=== PATIENT | male | born 1940 | race Caucasian/White ===

== ENCOUNTER 2016-07-10 14:58 | Emergency (ER) | payer MEDICARE, OTHER, BC ==
[~2016-07-10 14:58] MED LIST: DOCU100C31 PO; EPGI10M SC; HYDR-4717 PO; INSUINJ12 SC; IPRA17AE2 INH; LEVAAER2 PO; NVLGI SC; TRAM-10 PO
[2017-01-14] MEDS ORDERED: CYAN100020 PO (14:35)
[2017-01-14] MEDS ORDERED: CHOL1000 PO (14:35)
[2017-01-14] MEDS ORDERED: LEVO25TA5 PO (14:35)
[2017-01-14] MEDS ORDERED: LEVO200T6 PO (14:35)
[2017-01-17] MEDS ORDERED: CRFUDL PO (16:46)
[2017-01-17] MEDS ORDERED: OMEP40CA41 PO (16:46)
== END 2016-07-10 15:40 | disposition left against medical advice (07) ==
LOC: C.EDB 15:08
DX: R20.0 Anesthesia of skin (principal)

== ENCOUNTER → 2016-08-17 | Outpatient (CLI) | payer MEDICARE ==
[~2016-08-17] MED LIST changes: +AMLO2.5T PO; +APR50 PO; +ASPI81TA28 PO; +ATRIN INH; +CHOL1000 PO; +CRFUDL PO; +CYAN100020 PO; +FLM4 PO; +LBT100 PO; +LEVA45AE INH; +LEVO200T6 PO; +LEVO25TA5 PO; +LSN40 PO; +LSX80 PO; +LVMI SC; +NVLG SC; +OMEP40CA41 PO; +ROSU20TA22 PO
[2016-08-17 15:22] LABS: ESTIMATED AVERAGE GLUCOSE 157 mg/dl; HA1C FLAG Normal (Normal)
== END | disposition home or self-care (01) ==
LOC: C.LABBC 10:53
PROVIDERS: ATTEND Family Medicine
DX: E11.8 Type 2 diabetes mellitus with unspecified complications (principal); E03.9 Hypothyroidism, unspecified

== ENCOUNTER → 2017-01-01 | Outpatient (CLI) | payer MEDICARE ==
[2017-01-01 12:51] LABS: ESTIMATED AVERAGE GLUCOSE 174 mg/dl; HA1C FLAG Normal (Normal)
[2017-01-01 13:16] LABS: ALB/GLOB RATIO 1.1 (0.9-2); ALKALINE PHOSPHATASE 83 U/L (45-117); ALT/SGPT 22 U/L (12-78); AST/SGOT 6 U/L (15-37); BLOOD UREA NITROGEN 87 mg/dl (7-18); CALCIUM 8.4 mg/dl (8.5-10.1); CARBON DIOXIDE 26 mmol/L (21-32); CHLORIDE 109 mmol/L (98-107); CHOLESTEROL 64 mg/dl (0-200); CHOLESTEROL/HDL RATIO 1.7; GLUCOSE 147 mg/dl (70-99); HDL CHOLESTEROL 37 mg/dl; LDL CHOLESTEROL CALCULATED 12 mg/dl; POTASSIUM 3.3 mmol/L (3.5-5.1); SODIUM 144 mmol/L (136-145); TRIGLYCERIDES 73 mg/dl (0-150); VERY LOW DENSITY LIPOPROT CALC 15 mg/dl
== END | disposition home or self-care (01) ==
LOC: C.LABPBG 09:01
PROVIDERS: ATTEND Family Medicine
DX: E03.9 Hypothyroidism, unspecified (principal); I10 Essential (primary) hypertension; E11.8 Type 2 diabetes mellitus with unspecified complications

== ENCOUNTER 2017-01-14 15:32 | Inpatient (IN) | payer MEDICARE, OTHER ==
[~2017-01-14] VITALS: Ht 185.4 cm; Wt 95.3 kg
[~2017-01-14 15:32] MED LIST changes: -AMLO2.5T PO; -APR50 PO; -ASPI81TA28 PO; -ATRIN INH; -CRFUDL PO; -FLM4 PO; -LBT100 PO; -LEVA45AE INH; -LSN40 PO; -LSX80 PO; -LVMI SC; -NVLG SC; -OMEP40CA41 PO; -ROSU20TA22 PO
--- NOTE | 2017-01-14 16:15 | DIAGNOSTIC IMAGING REPORT ---
SINGLE VIEW CHEST CLINICAL HISTORY: Fever. Sepsis. FINDINGS: An AP, portable, upright chest radiograph is compared to study dated 05/22/2016 and correlated with chest CT dated 02/09/2016. The examination is significantly degraded by portable technique and patient rotation. The heart is enlarged there is atherosclerotic calcification of the thoracic aorta. There is mild congestion of the central pulmonary vasculature. Left basilar atelectasis is observed. No lobar consolidation or large pleural effusion is identified. No pneumothorax is seen. The skeletal structures are osteopenic. The bony thorax is grossly intact. Degenerative change is noted throughout the thoracic spine. IMPRESSION: Cardiomegaly with mild pulmonary vascular congestion. Electronically signed by: Shayan Gonzalez M.D. 01/14/2017 4:14 PM Dictated Date/Time: 01/14/2017 4:13 PM
[2017-01-14 16:18] LABS: BASO % 0.3 %; BASO ABS # 0.01 K/uL (0-0.2); EOS % 2.2 %; HEMATOCRIT 23.4 % (42-52); LYMPH % 16.7 %; LYMPH ABS # 0.61 K/uL (1.2-3.4); MEAN CELL VOLUME 91.4 fL (80-100); MEAN CORPUSCULAR HEMOGLOBIN 28.5 pg (25-34); MEAN CORPUSCULAR HGB CONC 31.2 g/dl (32-36); MEAN PLATELET VOLUME 11.1 fL (7.4-10.4); MONO % 7.7 %; NEUT % 73.1 %; PLATELET COUNT 159 K/uL (130-400); RED BLOOD COUNT 2.56 M/uL (4.7-6.1); WHITE BLOOD COUNT 3.65 K/uL (4.8-10.8)
[2017-01-14 16:28] LABS: INR 1.1 (0.9-1.1); PROTHROMBIN TIME (PATIENT) 11.8 SECONDS (9.0-12.0)
[2017-01-14] MEDS ORDERED: APR50 PO (16:35)
[2017-01-14] MEDS ORDERED: LVMI SC ×2 (16:35→19:09)
[2017-01-14] MEDS ORDERED: AMLO2.5T PO (16:35)
[2017-01-14 16:44] LABS: BUN/CREATININE RATIO 12.4 (10-20); CALCIUM 8.3 mg/dl (8.5-10.1); CKMB/CK RATIO 1.9 (0-3.0); CREATININE 7.4 mg/dl (0.60-1.40); POTASSIUM 3.4 mmol/L (3.5-5.1); THYROID STIMULATING HORMONE 0.925 uIu/ml (0.300-4.500)
[2017-01-14] MEDS ORDERED: ATRIN INH (16:45)
[2017-01-14] MEDS ORDERED: NVLG SC (16:45)
[2017-01-14] MEDS ORDERED: ASPI81TA28 PO (16:45)
[2017-01-14] MEDS ORDERED: LEVA45AE INH (16:47)
[2017-01-14] MEDS ORDERED: EPGI10M SC (16:50)
[2017-01-14 16:51] LABS: COMPLETE YES; OVALOCYTES 1+
[2017-01-14 17:37] LABS: URINE APPEARANCE CLEAR (CLEAR); URINE BILIRUBIN NEG (NEG); URINE COLOR YELLOW; URINE NITRITE NEG (NEG); URINE SPECIFIC GRAVITY 1.013 (1.000-1.030); UROBILINOGEN NEG (NEG)
[2017-01-14 17:39] LABS: MANUAL MICROSCOPIC REQUIRED? NO; REVIEW REQ? NO
--- NOTE | 2017-01-14 18:49 | EMERGENCY ROOM VISIT NOTE ---
History Report prepared by Crys: Cassie Rees Under the Supervision of: Dr. Jama Kay D.O. First contact with patient: 15:42 Chief Complaint: SHORTNESS OF BREATH Stated Complaint: SOB, NEEDS DIALYSIS Nursing Triage Summary: Pt was on dialysis and decided he wanted to stop. Now presents c/o dyspnea at rest and numbness in his arms and legs. Called Dr. Dubois and made aware, she recommended pt be brought to ED for labwork. Last dialysis treatment 6 weeks ago. History of Present Illness The patient is a 76 year old male who presents to the Emergency Room with complaints of increasing shortness of breath that began six weeks ago. The patient states that six weeks ago he decided to stop his dialysis treatments. He states that his shortness of breath is worsened with exertion. The patient reports numbness in his arms and legs. He denies any swelling in his lower extremities. The patient states that he has been urinating. He states that he was placed on Dialysis last December. The patient's daughter states that she called the patient's classification officer this morning and was told to bring the patient to the emergency department for further lab work up. The patient states that he does want to go back on dialysis. Source of History: patient Onset: six weeks ago Position: other (global) Quality: other (shortness of breath) Timing: other (increasing) Modifying Factors (Worsening): exertion Review of Systems See HPI for pertinent positives & negatives. A total of 10 systems reviewed and were otherwise negative. Past Medical & Surgical Medical Problems: (1) Anemia (2) Asthma (3) Chronic Kidney Disease, Unspecified (4) COPD exacerbation (5) Diab Cheryl Wo Compl, Type Ii Or Unspec Type, Not Uncntrld (6) Diabetes (7) End-stage renal disease on hemodialysis (8) Epistaxis (9) Esophageal Reflux (10) Heart disease (11) HTN (hypertension) (12) Hypertension (13) Hypertension Nos (14) Hypoxia (15) Secondary hyperparathyroidism of renal origin Family History Diabetes mellitus Hypertension Kidney disease Kidney stones Social History Smoking Status: Former Smoker Alcohol Use: none Drug Use: none Marital Status: Housing Status: lives with significant other Occupation Status: retired Current/Historical Medications Scheduled Amlodipine Besylate (Norvasc), 2.5 MG PO DAILY Aspirin (Aspirin Ec), 81 MG PO DAILY Cholecalciferol (Vitamin D3), 1,000 INTER.UNIT PO QAM Cyanocobalamin (Vitamin B12), 1,000 MCG PO QAM Epoetin Zheng (Procrit), 1 ML SC MONTHLY Furosemide (Furosemide), 80 MG PO TID Hydralazine HCl (Hydralazine HCl), 50 MG PO TID Insulin Aspart (Novolog), 20 UNITS SC AMPM Insulin Detemir (Levemir), 45 UNITS SC QPM Insulin Detemir (Levemir), 50 UNITS SC QAM Ipratropium [place] (Atrovent Hfa), 2 PUFFS INH Q6H Labetalol HCl (Labetalol HCl), 300 MG PO BID Levalbuterol Tartrate (Levalbuterol Tartrate Hfa), 2 PUFFS INH Q6H Levothyroxine Sodium (Levothyroxine Sodium), 25 MCG PO 2XWK Levothyroxine Sodium (Levothyroxine Sodium), 200 MCG PO DAILY Lisinopril (Lisinopril), 40 MG PO DAILY Omeprazole (Prilosec), 40 MG PO DAILY Rosuvastatin Calcium (Rosuvastatin Calcium), 20 MG PO DAILY Tamsulosin HCl (Tamsulosin HCl), 0.4 MG PO QAM Allergies Coded Allergies: Metformin (Verified Adverse Reaction, Intermediate, CONFUSION, 05/21/16) Physical Exam Vital Signs Date Time Temp Pulse Resp B/P (MAP) Pulse Ox O2 Delivery O2 Flow Rate FiO2 01/14/17 17:21 61 19 169/67 96 Room Air 01/14/17 16:13 61 01/14/17 15:46 Room Air 01/14/17 15:35 36.3 60 18 146/62 96 Room Air 01/14/17 15:35 94 Room Air Physical Exam CONSTITUTIONAL/VITAL SIGNS: Reviewed / noted above. GENERAL: Non-toxic in appearance. INTEGUMENTARY: Warm, dry, and [place]. HEAD: Normocephalic. EYES: without scleral icterus or trauma. ENT/OROPHARYNX: clear and moist. LYMPHADENOPATHY/NECK: Is supple without lymphadenopathy or meningismus. RESPIRATORY: Lungs clear and equal. CARDIOVASCULAR: Regular rate and rhythm. GI/ABDOMEN: Soft and nontender. No organomegaly or pulsatile mass. No rebound or guarding. Normal bowel sounds. EXTREMITIES: Warm and well perfused. BACK: No CVA tenderness. NEUROLOGICAL: Intact without focal deficits. PSYCHIATRIC: normal affect. MUSCULOSKELETAL: Normally developed with good muscle tone. Medical Decision & Procedures ER Provider Diagnostic Interpretation: X ray results and stated below per my interpretation and radiology interpretation. SINGLE VIEW CHEST CLINICAL HISTORY: Fever. Sepsis. FINDINGS: An AP, portable, upright chest radiograph is compared to study dated 05/22/2016 and correlated with chest CT dated 02/09/2016. The examination is significantly degraded by portable technique and patient rotation. The heart is enlarged there is atherosclerotic calcification of the thoracic aorta. There is mild congestion of the central pulmonary vasculature. Left basilar atelectasis is observed. No lobar consolidation or large pleural effusion is identified. No pneumothorax is seen. The skeletal structures are osteopenic. The bony thorax is grossly intact. Degenerative change is noted throughout the thoracic spine. IMPRESSION: Cardiomegaly with mild pulmonary vascular congestion. Electronically signed by: Shayan Gonzalez M.D. 01/14/2017 4:14 PM Dictated Date/Time: 01/14/2017 4:13 PM Laboratory Results 01/14/17 16:00 Red Blood Count 2.56, Mean Corpuscular Volume 91.4, Mean Corpuscular Hemoglobin 28.5, Mean Corpuscular Hemoglobin Concent 31.2, Mean Platelet Volume 11.1, Neutrophils (%) (Auto) 73.1, Lymphocytes (%) (Auto) 16.7, Monocytes (%) (Auto) 7.7, Eosinophils (%) (Auto) 2.2, Basophils (%) (Auto) 0.3, Neutrophils # (Auto) 2.67, Lymphocytes # (Auto) 0.61, Monocytes # (Auto) 0.28, Eosinophils # (Auto) 0.08, Basophils # (Auto) 0.01 01/14/17 16:00 Test 01/14/17 16:00 01/14/17 17:20 White Blood Count 3.65 K/uL (4.8-10.8) Red Blood Count 2.56 M/uL (4.7-6.1) Hemoglobin 7.3 g/dL (14.0-18.0) Hematocrit 23.4 % (42-52) Mean Corpuscular Volume 91.4 fL (80-100) Mean Corpuscular Hemoglobin 28.5 pg (25-34) Mean Corpuscular Hemoglobin Concent 31.2 g/dl (32-36) Platelet Count 159 K/uL (130-400) Mean Platelet Volume 11.1 fL (7.4-10.4) Neutrophils (%) (Auto) 73.1 % Lymphocytes (%) (Auto) 16.7 % Monocytes (%) (Auto) 7.7 % Eosinophils (%) (Auto) 2.2 % Basophils (%) (Auto) 0.3 % Neutrophils # (Auto) 2.67 K/uL (1.4-6.5) Lymphocytes # (Auto) 0.61 K/uL (1.2-3.4) Monocytes # (Auto) 0.28 K/uL (0.11-0.59) Eosinophils # (Auto) 0.08 K/uL (0-0.5) Basophils # (Auto) 0.01 K/uL (0-0.2) RDW Standard Deviation 50.8 fL (36.4-46.3) RDW Coefficient of Variation 15.2 % (11.5-14.5) Immature Granulocyte % (Auto) 0.0 % Immature Granulocyte # (Auto) 0.00 K/uL (0.00-0.02) Ovalocytes 1+ Prothrombin Time 11.8 SECONDS (9.0-12.0) Prothromb Time International Ratio 1.1 (0.9-1.1) Activated Partial Thromboplast Time 26.5 SECONDS (21.0-31.0) Partial Thromboplastin Ratio 1.0 Anion Gap 9.0 mmol/L (3-11) Est Creatinine Clear Calc Drug Dose 11.0 ml/min Estimated GFR () 7.6 Estimated GFR (Non- 6.6 BUN/Creatinine Ratio 12.4 (10-20) Calcium Level 8.3 mg/dl (8.5-10.1) Total Bilirubin 0.4 mg/dl (0.2-1) Direct Bilirubin 0.1 mg/dl (0-0.2) Aspartate Amino Transf (AST/SGOT) 7 U/L (15-37) Alanine Aminotransferase (ALT/SGPT) 20 U/L (12-78) Alkaline Phosphatase 80 U/L (45-117) Total Creatine Kinase 127 U/L (39-308) Creatine Kinase MB 2.4 ng/ml (0.5-3.6) Creatine Kinase MB Ratio 1.9 (0-3.0) Troponin I 0.047 ng/ml (0-0.045) Total Protein 6.5 gm/dl (6.4-8.2) Albumin 3.3 gm/dl (3.4-5.0) Lipase 351 U/L (73-393) Thyroid Stimulating Hormone (TSH) 0.925 uIu/ml (0.300-4.500) Urine Color YELLOW Urine Appearance CLEAR (CLEAR) Urine pH 6.0 (4.5-7.5) Urine Specific [place] 1.013 (1.000-1.030) Urine Protein 3+ (NEG) Urine Glucose (UA) 1+ (NEG) Urine Ketones NEG (NEG) Urine Occult Blood NEG (NEG) Urine Nitrite NEG (NEG) Urine Bilirubin NEG (NEG) Urine Urobilinogen NEG (NEG) Urine Leukocyte Esterase NEG (NEG) Urine WBC (Auto) 1-5 /hpf (0-5) Urine RBC (Auto) 0-4 /hpf (0-4) Urine Hyaline Casts (Auto) 0 /lpf (0-5) Urine Epithelial Cells (Auto) 5-10 /lpf (0-5) Urine Bacteria (Auto) NEG (NEG) Laboratory results as stated above per my review. ECG Indication: SOB/dyspnea Rate (beats per minute): 60 Rhythm: normal sinus Findings: RBBB, no acute ischemic change Comparison ECG Date: 05/22/16 Change: no significant change ED Course 1544: Previous medical records were reviewed. The patient was evaluated in room C10. A complete history and physical examination was performed. 1756: I discussed the patients case with Dr. [facility]. She is going to evaluate the patient for further treatment. 1808: I reevaluated the patient and he is doing well. I discussed the exam findings with him and I discussed the treatment plan. He verbalized complete understanding and agreement. He is going to be evaluated for further treatment. Medical Decision Differentials considered include acute myocardial infarction, acute coronary syndrome, myocarditis, pericarditis, pericardial effusions /tamponade, esophageal perforation, pulmonary embolism, pneumonia, pneumothorax, cardiomyopathy, congestive heart, anemia, and COPD/asthma exacerbation. This is a 76-year-old male who presents to the ED with a chief complaint of dyspnea on exertion primarily. The patient states that he is a dialysis- dependent renal failure patient who has not been to dialysis for about 6 weeks. He states that he is developing increasing exertional dyspnea and was referred here by his classification officer, Dr. Briceno. The patient denies any other specific complaints. No chest pains, fevers or recent illness. He reported to the nurse that he has some paresthesias in his arms and legs as well, he did not report this to me. Patient's vital signs are stable. His physical exam was relatively unremarkable. Hemoglobin is 7.3, troponin is 0.047, BUN is 91, creatinine is 7.4, potassium is 3.4 and glucose is 184. Other laboratory studies were unremarkable. Chest x-ray reveals cardiomegaly and some mild pulmonary vascular congestion. An EKG shows a right bundle branch block and a sinus rhythm. This is chronic. The patient was told the results. I spoke with the hospitalist, who will see the patient for further inpatient evaluation and care. He was typed and screened. Medication Reconcilliation Current Medication List: was personally reviewed by me Blood Pressure Screening Patient's blood pressure: Elevated blood pressure Blood pressure disposition: Elevated BP felt to be situational, Did not require urgent referral Consults Time Called: 1733 Consulting Physician: YULIANA Kinney Returned Call: 1756 I discussed the patients case with YULIANA Kinney. She is going to evaluate the patient for further treatment. Impression Primary Impression: Anemia Additional Impressions: Elevated troponin Pulmonary vascular congestion Uremia Scribe Attestation The scribe's documentation has been prepared under my direction and personally reviewed by me in its entirety. I confirm that the note above accurately reflects all work, treatment, procedures, and medical decision making performed by me. Departure Information Dispostion Being Evaluated By Hospitalist Referrals No Doctor, Assigned (PCP) Problem Qualifiers
[2017-01-14] MEDS ORDERED: MoRPHine SULFATE 2 MG/ML CARP IV PRN (20:00)
[2017-01-14] MEDS ORDERED: ACETAMINOPHEN 325 MG TAB PO PRN (20:00)
[2017-01-14] MEDS ORDERED: NITROGLYCERIN 0.4 MG SL PER TAB CHARGE SL PRN (20:00)
[2017-01-14] MEDS ORDERED: IV FLUIDS COMPLETED PRN (20:15)
[2017-01-14] MEDS ORDERED: FLM4 PO (20:38)
[2017-01-14] MEDS ORDERED: OMEP40CA41 PO (20:38)
[2017-01-14] MEDS ORDERED: LBT100 PO (20:38)
[2017-01-14] MEDS ORDERED: LSX80 PO (20:38)
[2017-01-14] MEDS ORDERED: ROSU20TA22 PO (20:38)
[2017-01-14 20:41] VITALS: BP 181/66; PULSE 63; TEMP 36.4; O2SAT 97; Ht 185.4 cm; Wt 95.3 kg
--- NOTE | 2017-01-14 20:59 | History and Physical ---
History & Physical Date & Time of Service: Jan 14, 2017 at 20:33 Chief Complaint: Sob, Needs Dialysis Primary Care Physician: Mahsa Wang DO History of Present Illness Source: patient 75 y/o M Hx ESRD, DM, HTN, CAD, recurrent GI bleed. The pt was n dialysis until a few months ago when he made a decision to terminate treatment. He has become progressively SOB over the past 2 weeks and presents stating that he would like to restart dialysis now. He also reports that he has had black stools for the past 6 weeks. Initial labs are notable for worsening anemia and renal impairment as expected. He denies CP, N/V/D, fevers, dysuria. Past Medical/Surgical History Medical Problems: (1) Asthma Status: Chronic (2) Diabetes Status: Chronic (3) Epistaxis Status: Chronic (4) Heart disease Status: Chronic (5) HTN (hypertension) Status: Chronic (6) Hypertension Status: Chronic Family History Diabetes mellitus Hypertension Kidney disease Kidney stones Social History Smoking Status: Former Smoker Drug Use: none Marital Status: Housing status: lives with family Occupational Status: retired Immunizations History of Influenza Vaccine: Unknown History of Tetanus Vaccine?: unknown History of Pneumococcal: Yes Pneumococcal Date: Dec 19, 2007 History of Hepatitis B Vaccine: Unknown Multi-Drug Resistant Organisms History of MDRO: No Allergies Coded Allergies: Metformin (Verified Adverse Reaction, Intermediate, CONFUSION, 05/21/16) Home Medications Scheduled Amlodipine Besylate (Norvasc), 2.5 MG PO DAILY Aspirin (Aspirin Ec), 81 MG PO DAILY Cholecalciferol (Vitamin D3), 1,000 INTER.UNIT PO QAM Cyanocobalamin (Vitamin B12), 1,000 MCG PO QAM Epoetin Zheng (Procrit), 1 ML SC MONTHLY Furosemide (Furosemide), 80 MG PO TID Hydralazine HCl (Hydralazine HCl), 50 MG PO TID Insulin Aspart (Novolog), 20 UNITS SC AMPM Insulin Detemir (Levemir), 45 UNITS SC QPM Insulin Detemir (Levemir), 50 UNITS SC QAM Ipratropium [place] (Atrovent Hfa), 2 PUFFS INH Q6H Labetalol HCl (Labetalol HCl), 300 MG PO BID Levalbuterol Tartrate (Levalbuterol Tartrate Hfa), 2 PUFFS INH Q6H Levothyroxine Sodium (Levothyroxine Sodium), 25 MCG PO 2XWK Levothyroxine Sodium (Levothyroxine Sodium), 200 MCG PO DAILY Lisinopril (Lisinopril), 40 MG PO DAILY Omeprazole (Prilosec), 40 MG PO DAILY Rosuvastatin Calcium (Rosuvastatin Calcium), 20 MG PO DAILY Tamsulosin HCl (Tamsulosin HCl), 0.4 MG PO QAM Review of Systems Constitutional: No fever, No chills, No sweats Eyes: No worsening of vision ENT: No hearing loss, No nasal symptoms Respiratory: + shortness of breath, + dyspnea on exertion, + dyspnea at rest, No cough, No sputum, No wheezing Cardiovascular: + orthopnea, No chest pain, No PND Abdomen: No pain, No nausea, No vomiting Musculoskeletal: No joint pain Genitourinary - Male: No hematuria, No dysuria, No urinary frequency, No urinary urgency Neurologic: No memory loss, No paralysis, No weakness Psychiatric: No depression symptoms Endocrine: No fatigue Hematologic / Lymphatic: + abnormal bleeding/bruising Integumentary: No rash Allergic / Immunologic: No environmental allergies Physical Exam Vital Signs Date Time Temp Pulse Resp B/P (MAP) Pulse Ox O2 Delivery O2 Flow Rate FiO2 01/14/17 20:26 63 18 166/72 94 01/14/17 20:23 63 18 166/72 94 Room Air 01/14/17 19:07 62 18 183/75 95 Room Air 01/14/17 17:21 61 19 169/67 96 Room Air 01/14/17 16:13 61 01/14/17 15:46 Room Air 01/14/17 15:35 36.3 60 18 146/62 96 Room Air 01/14/17 15:35 94 Room Air General Appearance: WD/WN, no apparent distress Head: normocephalic Eyes: normal inspection ENT: normal ENT inspection, pharynx normal Neck: supple, + JVD Respiratory/Chest: chest non-tender, lungs clear, normal breath sounds, no respiratory distress Cardiovascular: regular rate, rhythm, no edema, no gallop, no murmur, normal peripheral pulses, + JVD Abdomen/GI: normal bowel sounds, non tender, soft Back: normal inspection, no CVA tenderness, no muscle spasm, normal range of motion Extremities/Musculoskelatal: normal inspection, no calf tenderness, normal capillary refill, + pertinent finding (Functional graft LUE) 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, no motor/sensory deficits, alert, normal mood/affect, normal reflexes, oriented x 3 Skin: normal color, warm/dry, no rash Diagnostics Laboratory Results Results Past 24 Hours Test 01/14/17 16:00 01/14/17 17:20 Range/Units White Blood Count 3.65 4.8-10.8 K/uL Red Blood Count 2.56 4.7-6.1 M/uL Hemoglobin 7.3 14.0-18.0 g/dL Hematocrit 23.4 42-52 % Mean Corpuscular Volume 91.4 80-100 fL Mean Corpuscular Hemoglobin 28.5 25-34 pg Mean Corpuscular Hemoglobin Concent 31.2 32-36 g/dl Platelet Count 159 130-400 K/uL Mean Platelet Volume 11.1 7.4-10.4 fL Neutrophils (%) (Auto) 73.1 % Lymphocytes (%) (Auto) 16.7 % Monocytes (%) (Auto) 7.7 % Eosinophils (%) (Auto) 2.2 % Basophils (%) (Auto) 0.3 % Neutrophils # (Auto) 2.67 1.4-6.5 K/uL Lymphocytes # (Auto) 0.61 1.2-3.4 K/uL Monocytes # (Auto) 0.28 0.11-0.59 K/uL Eosinophils # (Auto) 0.08 0-0.5 K/uL Basophils # (Auto) 0.01 0-0.2 K/uL RDW Standard Deviation 50.8 36.4-46.3 fL RDW Coefficient of Variation 15.2 11.5-14.5 % Immature Granulocyte % (Auto) 0.0 % Immature Granulocyte # (Auto) 0.00 0.00-0.02 K/uL Ovalocytes 1+ Prothrombin Time 11.8 9.0-12.0 SECONDS Prothromb Time International Ratio 1.1 0.9-1.1 Activated Partial Thromboplast Time 26.5 21.0-31.0 SECONDS Partial Thromboplastin Ratio 1.0 Sodium Level 143 136-145 mmol/L Potassium Level 3.4 3.5-5.1 mmol/L Chloride Level 109 98-107 mmol/L Carbon Dioxide Level 25 21-32 mmol/L Anion Gap 9.0 3-11 mmol/L Blood Urea Nitrogen 91 7-18 mg/dl Creatinine 7.40 0.60-1.40 mg/dl Est Creatinine Clear Calc Drug Dose 11.0 ml/min Estimated GFR () 7.6 Estimated GFR (Non- 6.6 BUN/Creatinine Ratio 12.4 10-20 Random Glucose 184 70-99 mg/dl Calcium Level 8.3 8.5-10.1 mg/dl Total Bilirubin 0.4 0.2-1 mg/dl Direct Bilirubin 0.1 0-0.2 mg/dl Aspartate Amino Transf (AST/SGOT) 7 15-37 U/L Alanine Aminotransferase (ALT/SGPT) 20 12-78 U/L Alkaline Phosphatase 80 45-117 U/L Total Creatine Kinase 127 39-308 U/L Creatine Kinase MB 2.4 0.5-3.6 ng/ml Creatine Kinase MB Ratio 1.9 0-3.0 Troponin I 0.047 0-0.045 ng/ml Total Protein 6.5 6.4-8.2 gm/dl Albumin 3.3 3.4-5.0 gm/dl Lipase 351 73-393 U/L Thyroid Stimulating Hormone (TSH) 0.925 0.300-4.500 uIu/ml Urine Color YELLOW Urine Appearance CLEAR CLEAR Urine pH 6.0 4.5-7.5 Urine Specific [place] 1.013 1.000-1.030 Urine Protein 3+ NEG Urine Glucose (UA) 1+ NEG Urine Ketones NEG NEG Urine Occult Blood NEG NEG Urine Nitrite NEG NEG Urine Bilirubin NEG NEG Urine Urobilinogen NEG NEG Urine Leukocyte Esterase NEG NEG Urine WBC (Auto) 1-5 0-5 /hpf Urine RBC (Auto) 0-4 0-4 /hpf Urine Hyaline Casts (Auto) 0 0-5 /lpf Urine Epithelial Cells (Auto) 5-10 0-5 /lpf Urine Bacteria (Auto) NEG NEG Diagnostic Radiology CXR Cardiomegaly with mild pulmonary vascular congestion. EKG Sinus , RBBB - no significant change form previous Impression Assessment and Plan 75 y/o M Hx ESRD, DM, HTN, CAD, recurrent GI bleed. The pt was n dialysis until a few months ago when he made a decision to terminate treatment. He has become progressively SOB over the past 2 weeks and presents stating that he would like to restart dialysis now. He also reports that he has had black stools for the past 6 weeks. Initial labs are notable for worsening anemia and renal impairment as expected. He denies CP, N/V/D, fevers, dysuria. 1) SOB - likely related to both volume overload and anemia - addressed below 2) ESRD - pt has not had dialysis for a few months - nephrology contacted - pt will be dialyzed 01/15. We will continue Lasix at prescribed does in interim. 3) Anemia - likely due to both blood loss and noncompliance with EPO. Pt had both an endoscopy and colonoscopy - polyps and hemorrhoids were found without significant source of bleeding - he may have undergone a more involved study at [facility] but could not elaborate. We will trend his Hb but would prefer not to transfuse him until AM if needed as he would be able to proceed to dialysis. We will consult his Human Geography Instructor. 4) DM - placed on SS 5) CAD - no evidence of ACS - no history of MT and CAD may be nonocclusive per previous workup. Full code - SCDs due to GI blood loss Total time for this admit including review of labs, meds, EKG, imaging, records - discussion with pt and ER attending - 44 min Level of Care Telemetry Resuscitation Status FULL RESUSCITATION VTE Prophylaxis Risk Level: Moderate Given or contraindicated: SCD's
[2017-01-14] MEDS: INSULIN ASPART 100 UNITS/ML 3 ML PEN SC SCH (21:00)
[2017-01-14] MEDS: FUROSEMIDE 80 MG TAB PO SCH (21:10)
[2017-01-14] MEDS: LABETALOL HCL 300 MG TAB PO SCH (21:11)
[2017-01-14] MEDS: INSULIN DETEMIR SC SCH (21:14)
[2017-01-14] MEDS ORDERED: LSN40 PO (21:28)
[2017-01-14] MEDS: LEValbuterol HFA 15GM INHALER INH SCH (23:15)
[2017-01-14] MEDS: IPRATROPIUM BROMIDE HFA INHALER INH SCH (23:15)
[2017-01-14 23:22] VITALS: BP 183/75; PULSE 64; TEMP 36.5; O2SAT 95
[2017-01-15] VITALS (31 sets, daily range): BP systolic 139–189; BP diastolic 56–83; PULSE 57–85; TEMP 36.5–36.9; O2SAT 92–99
[2017-01-15] MEDS: IPRATROPIUM BROMIDE HFA INHALER INH SCH ×3 (05:47→17:13)
[2017-01-15] MEDS: LEValbuterol HFA 15GM INHALER INH SCH ×3 (05:47→17:14)
[2017-01-15] MEDS: LEVOTHYROXINE 200 MCG TAB PO SCH (05:48)
[2017-01-15] MEDS: INSULIN ASPART 100 UNITS/ML 3 ML PEN SC SCH ×4 (07:00→21:00)
[2017-01-15] MEDS: ROSUVASTATIN CALCIUM 20 MG TAB PO SCH (07:49)
[2017-01-15] MEDS: FUROSEMIDE 80 MG TAB PO SCH ×3 (07:50→21:00)
[2017-01-15] MEDS: CHOLECALCIFEROL 1000 INTER.UNIT TAB PO SCH (07:50)
[2017-01-15] MEDS: ASPIRIN 81 MG ECTAB PO SCH (07:50)
[2017-01-15] MEDS: CYANOCOBALAMIN 500 MCG TAB (VIT B-12) PO SCH (07:51)
[2017-01-15] MEDS: TAMSULOSIN HCL 0.4 MG CAP PO SCH (07:51)
[2017-01-15] MEDS: AMLODIPINE BESYLATE 5 MG TAB PO SCH (07:51)
[2017-01-15] MEDS: INSULIN DETEMIR SC SCH ×2 (07:54→21:00)
[2017-01-15] MEDS: LABETALOL HCL 300 MG TAB PO SCH ×2 (07:56→21:09)
[2017-01-15] MEDS: LISINOPRIL 40 MG TAB PO SCH (07:56)
[2017-01-15 08:56] LABS: BUN/CREATININE RATIO 11.3 (10-20); CALCIUM 8.3 mg/dl (8.5-10.1); CREATININE 7.6 mg/dl (0.60-1.40); PHOSPHORUS 4.9 mg/dl (2.5-4.9); POTASSIUM 3.3 mmol/L (3.5-5.1)
[2017-01-15] MEDS ORDERED: PANTOprazole SOD 40 MG TAB PO SCH (09:00)
[2017-01-15 09:09] LABS: HEPATITIS B AB NEG
--- NOTE | 2017-01-15 10:06 | Gastrointestinal Consultation ---
Gastrointestinal Consultation Date of Consultation: Jan 15, 2017 Attending Physician: Dr. Sánchez Consulting Physician: Dr. Hernandez/YULIA Hernandez Reason for Consultation: Anemia History of Present Illness Patient is a 76 year old male with a history of ESRD, HTN, CAD and mild GAVE seen on prior endoscopy during a hospitalization for GIB in December of 2015. At that time, the patient did undergo both an upper endoscopy and colonoscopy by Dr. Hernandez. Since that time, he states he had been doing well from a GI standpoint until approximately 6 weeks ago. At that time, he reports a sudden onset of intermittent upper abdominal pain and development of black stools. The dark stools have been persistent but over time has developed progressive shortness of breath, worse with exertion over the past two weeks. On arrival, he was noted to have an H&H of 7.3 and 23.4. His hemoglobin has dropped overnight and was down to 6.8 this morning. The patient has been ordered 1 unit of PRBCs which have not yet been infused. The patient remains of Protonix 40 mg daily. Currently, he denies any abdominal pain, nausea or vomiting or other GI complaints. His only complaint at present is of significant fatigue. Past Medical/Surgical History Medical Problems: (1) Elevated troponin Status: Acute (2) Hyperglycemia due to type 2 diabetes mellitus Status: Acute (3) Leg pain, left Status: Acute (4) Pain of left calf Status: Acute (5) Pulmonary vascular congestion Status: Acute (6) Substernal chest pain Status: Acute (7) Uremia Status: Acute Past Medical History: 1. Asthma 2. Diabetes 3. Epistaxis 4. CAD 5. HTN 6. ESRD 7. GIB 8. Colon polyps 9. Internal hemorrhoids 10. GAVE Past Surgical History: 1. EGD 2. Colonoscopy Family History Diabetes mellitus Hypertension Kidney disease Kidney stones Negative for GI malignancy and IBD Social History Smoking Status: Former Smoker Alcohol Use: none Drug Use: none Marital Status: Housing Status: lives with significant other Occupation Status: retired Allergies Coded Allergies: Metformin (Verified Adverse Reaction, Intermediate, CONFUSION, 05/21/16) Current Medications Home Meds and Scripts Medications Dose Route/Sig Max Daily Dose Days Date Category Dose Instructions Procrit (Epoetin Zheng) 10,000 Units Inj 1 Ml SC MONTHLY 01/14/17 Reported HOLD IF HGB IS GREATER THAN 11 Levalbuterol Tartrate Hfa (Levalbuterol Tartrate) 45 Mcg/Act Aer 2 Puffs INH Q6H 01/14/17 Reported Aspirin Ec (Aspirin) 81 Mg Tab 81 Mg PO DAILY 01/14/17 Reported Atrovent Hfa (Ipratropium [place]) 200 Puffs/3400 Mcg Aers 2 Puffs INH Q6H 01/14/17 Reported Novolog (Insulin Aspart) 100 Units/Ml Inj 20 Units SC AMPM 01/14/17 Reported ADJUST PER SLIDING SCALE Hydralazine HCl 50 Mg Tab 50 Mg PO TID 01/14/17 Reported Norvasc (Amlodipine Besylate) 2.5 Mg Tab 2.5 Mg PO DAILY 01/14/17 Reported Levemir (Insulin Detemir) 100 Units/Ml Inj 50 Units SC QAM 01/14/17 Reported ADJUST PER SLIDING SCALE Lisinopril 40 Mg Tab 40 Mg PO DAILY 02/06/16 Reported ON DAYS OF DIALYSIS TAKE AFTER TREATMENT Tamsulosin HCl 0.4 Mg Cap 0.4 Mg PO QAM 02/06/16 Reported Prilosec (Omeprazole) 40 Mg Cap 40 Mg PO DAILY 02/06/16 Reported Rosuvastatin Calcium 20 Mg Tab 20 Mg PO DAILY 02/06/16 Reported Furosemide 80 Mg Tab 80 Mg PO TID 02/06/16 Reported Labetalol HCl 100 Mg Tab 300 Mg PO BID 02/06/16 Reported Levemir (Insulin Detemir) 100 Units/Ml Inj 45 Units SC QPM 01/19/16 Reported ADJUST PER SLIDING SCALE Vitamin D3 (Cholecalciferol) 1,000 Unit Tab 1,000 Inter.unit PO QAM 12/06/15 Reported Vitamin B12 (Cyanocobalamin) 1,000 Mcg Tab 1,000 Mcg PO QAM 12/06/15 Reported Levothyroxine Sodium 200 Mcg Tab 200 Mcg PO DAILY 12/06/15 Reported Levothyroxine Sodium 25 Mcg Tab 25 Mcg PO 2XWK 12/06/15 Reported EVERY SATURDAY AND SATURDAY TAKE AN ADDITIONAL 25 MCG ALONG WITH 200 MCG TABLET Review of Systems Constitutional: + see HPI Eyes: No problem reported ENT: No problem reported Respiratory: + see HPI Cardiac: No chest pain, No palpitations Abdomen: + see HPI Musculoskeletal: No problem reported Male : No problem reported Neuro: No problem reported Psych: No problem reported Skin: No problem reported Physical Exam Date Time Temp Pulse Resp B/P (MAP) Pulse Ox O2 Delivery O2 Flow Rate FiO2 01/15/17 08:00 95 Room Air 01/15/17 07:32 36.6 59 18 189/75 (113) 95 Room Air 01/15/17 04:00 Room Air 01/15/17 02:57 36.6 63 18 139/56 (83) 92 Room Air 01/15/17 00:00 Room Air 01/14/17 23:22 36.5 64 20 183/75 (111) 95 Room Air 01/14/17 20:41 36.4 63 18 181/66 97 Room Air 01/14/17 20:26 63 18 166/72 94 01/14/17 20:23 63 18 166/72 94 Room Air 01/14/17 19:07 62 18 183/75 95 Room Air 01/14/17 17:21 61 19 169/67 96 Room Air 01/14/17 16:13 61 01/14/17 15:46 Room Air 01/14/17 15:35 36.3 60 18 146/62 96 Room Air 01/14/17 15:35 94 Room Air General Appearance: no apparent distress Eyes: EOMI ENT: hearing grossly normal Neck: supple Respiratory/Chest: lungs clear, normal breath sounds, no respiratory distress Cardiovascular: regular rate, rhythm, no gallop, no murmur Abdomen: normal bowel sounds, non tender, soft Extremities: no pedal edema Neurologic/Psych: alert, normal mood/affect, oriented x 3 Skin: warm/dry Laboratory Results Last 24 Hours Test 01/14/17 16:00 01/14/17 17:20 01/14/17 21:08 01/14/17 23:01 White Blood Count 3.65 K/uL Red Blood Count 2.56 M/uL Hemoglobin 7.3 g/dL 6.8 g/dL Hematocrit 23.4 % Mean Corpuscular Volume 91.4 fL Mean Corpuscular Hemoglobin 28.5 pg Mean Corpuscular Hemoglobin Concent 31.2 g/dl Platelet Count 159 K/uL Mean Platelet Volume 11.1 fL Neutrophils (%) (Auto) 73.1 % Lymphocytes (%) (Auto) 16.7 % Monocytes (%) (Auto) 7.7 % Eosinophils (%) (Auto) 2.2 % Basophils (%) (Auto) 0.3 % Neutrophils # (Auto) 2.67 K/uL Lymphocytes # (Auto) 0.61 K/uL Monocytes # (Auto) 0.28 K/uL Eosinophils # (Auto) 0.08 K/uL Basophils # (Auto) 0.01 K/uL RDW Standard Deviation 50.8 fL RDW Coefficient of Variation 15.2 % Immature Granulocyte % (Auto) 0.0 % Immature Granulocyte # (Auto) 0.00 K/uL Ovalocytes 1+ Prothrombin Time 11.8 SECONDS Prothromb Time International Ratio 1.1 Activated Partial Thromboplast Time 26.5 SECONDS Partial Thromboplastin Ratio 1.0 Sodium Level 143 mmol/L Potassium Level 3.4 mmol/L Chloride Level 109 mmol/L Carbon Dioxide Level 25 mmol/L Anion Gap 9.0 mmol/L Blood Urea Nitrogen 91 mg/dl Creatinine 7.40 mg/dl Est Creatinine Clear Calc Drug Dose 11.0 ml/min Estimated GFR () 7.6 Estimated GFR (Non- 6.6 BUN/Creatinine Ratio 12.4 Random Glucose 184 mg/dl Calcium Level 8.3 mg/dl Total Bilirubin 0.4 mg/dl Direct Bilirubin 0.1 mg/dl Aspartate Amino Transf (AST/SGOT) 7 U/L Alanine Aminotransferase (ALT/SGPT) 20 U/L Alkaline Phosphatase 80 U/L Total Creatine Kinase 127 U/L Creatine Kinase MB 2.4 ng/ml Creatine Kinase MB Ratio 1.9 Troponin I 0.047 ng/ml Total Protein 6.5 gm/dl Albumin 3.3 gm/dl Lipase 351 U/L Thyroid Stimulating Hormone (TSH) 0.925 uIu/ml Urine Color YELLOW Urine Appearance CLEAR Urine pH 6.0 Urine Specific Monitor 1.013 Urine Protein 3+ Urine Glucose (UA) 1+ Urine Ketones NEG Urine Occult Blood NEG Urine Nitrite NEG Urine Bilirubin NEG Urine Urobilinogen NEG Urine Leukocyte Esterase NEG Urine WBC (Auto) 1-5 /hpf Urine RBC (Auto) 0-4 /hpf Urine Hyaline Casts (Auto) 0 /lpf Urine Epithelial Cells (Auto) 5-10 /lpf Urine Bacteria (Auto) NEG Bedside Glucose 201 mg/dl Test 01/15/17 05:41 01/15/17 06:36 01/15/17 08:16 01/15/17 08:20 Hemoglobin 6.8 g/dL Bedside Glucose 178 mg/dl Hepatitis B Surface Antigen NEG Hepatitis B Surface Antibody NEG Sodium Level 142 mmol/L Potassium Level 3.3 mmol/L Chloride Level 107 mmol/L Carbon Dioxide Level 26 mmol/L Anion Gap 9.0 mmol/L Blood Urea Nitrogen 86 mg/dl Creatinine 7.60 mg/dl Est Creatinine Clear Calc Drug Dose 10.5 ml/min Estimated GFR () 7.4 Estimated GFR (Non- 6.4 BUN/Creatinine Ratio 11.3 Random Glucose 217 mg/dl Calcium Level 8.3 mg/dl Phosphorus Level 4.9 mg/dl Troponin I 0.038 ng/ml Albumin 3.2 gm/dl Impression Patient is a 76 year old male admitted with symptomatic anemia, black stools and history of GAVE. Plan 1. Recommend supportive measures with blood transfusion as planned today. 2. NPO after midnight. 3. EGD with Dr. Hernandez tomorrow for further evaluation. 4. Increased Protonix to 40 mg po BID. 5. Additional recommendations pending results of testing. Thank you for allowing us to participate in the care of this pleasant patient. If you have any questions or concerns, please do not hesitate to contact us. Agree with YULIA Hernandez as above Abd: Soft, NT, ND, +BS EGD in AM secondary to history of GAVE Continue current therapy
--- NOTE | 2017-01-15 10:40 | Nephrology Consultation ---
Nephrology Consultation Date & Providers Date of Consultation: Jan 15, 2017. Primary Care Provider: Mahsa Wang DO Referring Provider: Reason for Consultation ESRD History of Present Illness Mr. Mcintyre is a 76 year old male with ESRD, HTN, CAD and GAVE. He was admitted ot [facility] yesterday with progressive fatigue, shortness of breath and black stool. Prior admissions for GI bleed were reviewed. He was previously maintained on hemodialysis at [facility] but several weeks ago decided to stop treatment. Darnell states that dialysis was tiring and he needed a break. He always intended to return to dialysis and acknowledges that he does not want to and that ESRD is a terminal diagnosis. Darnell is in good spirits and states his primary goal is to preserve his current quality of life. He answers questions appropriately. His appetite is good. He denies weight loss. He denies abdominal pain. Activity tolerance is limited due to dyspnea at baseline. He has been started on therapeutic pantoprazole and scheduled for EGD tomorrow. He has a functional AVF with good thrill and bruit. Past Medical/Surgical History Medical: 1. Asthma/COPD 2. Diabetes mellitus 3. ESRD 4. CAD 5. HTN 6. GAVE 7. Chronic liver disease 8. Colon polyps 9. Internal hemorrhoids Surgical: L radiocephalic AVF, EGD, colonoscopy Allergies Coded Allergies: Metformin (Verified Adverse Reaction, Intermediate, CONFUSION, 05/21/16) Inpatient Medications Current Inpatient Medications Medications (Trade) Dose Ordered Sig/Unique Route Start Time Stop Time Status Last Admin Dose Admin Acetaminophen (Tylenol Tab) 650 mg Q4H PRN PO 01/14/17 20:00 02/13/17 19:59 Nitroglycerin (Nitrostat Tab) 0.4 mg UD PRN SL 01/14/17 20:00 02/13/17 19:59 Morphine Sulfate (MoRPHine SULFATE INJ) 2 mg Q30M PRN IV 01/14/17 20:00 01/28/17 19:59 Amlodipine Besylate (Norvasc Tab) 2.5 mg DAILY PO 01/15/17 09:00 02/14/17 08:59 01/15/17 07:51 2.5 MG Aspirin (Ecotrin Tab) 81 mg DAILY PO 01/15/17 09:00 02/14/17 08:59 01/15/17 07:50 81 MG Cholecalciferol (Vitamin D Tab) 1,000 inter.unit QAM PO 01/15/17 09:00 02/14/17 08:59 01/15/17 07:50 1,000 INTER.UNIT Furosemide (Lasix Tab) 80 mg TID PO 01/14/17 21:00 02/13/17 20:59 01/15/17 07:50 80 MG Hydralazine HCl (Apresoline Tab) 50 mg TID PO 01/14/17 21:00 02/13/17 20:59 01/15/17 07:58 50 MG Ipratropium [place] (Atrovent Hfa Inhaler) 2 puffs Q6HWA INH 01/15/17 00:00 02/14/17 00:00 01/15/17 05:47 2 PUFFS Labetalol HCl (Normodyne Tab) 300 mg BID PO 01/14/17 21:00 02/13/17 20:59 01/15/17 07:56 300 MG Levalbuterol (Xopenex Hfa Inhaler) 2 puffs Q6HWA INH 01/15/17 00:00 02/14/17 00:00 01/15/17 05:47 2 PUFFS Levothyroxine Sodium (Synthroid Tab) 200 mcg DAILYBB PO 01/15/17 06:00 02/14/17 06:59 01/15/17 05:48 200 MCG Lisinopril (Zestril Tab) 40 mg DAILY PO 01/15/17 09:00 02/14/17 08:59 01/15/17 07:56 40 MG Rosuvastatin Calcium (Crestor Tab) 20 mg DAILY PO 01/15/17 09:00 02/14/17 08:59 01/15/17 07:49 20 MG Tamsulosin HCl (Flomax Cap) 0.4 mg QAM PO 01/15/17 09:00 02/14/17 08:59 01/15/17 07:51 0.4 MG Cyanocobalamin (Vitamin B-12 Tab) 1,000 mcg QAM PO 01/15/17 09:00 02/14/17 08:59 01/15/17 07:51 1,000 MCG Insulin Detemir (Levemir Insulin) 45 units PM SC 01/14/17 21:00 02/13/17 20:59 01/14/17 21:14 20 UNITS Insulin Detemir (Levemir Insulin) 50 units QAM CA 01/15/17 09:00 02/14/17 08:59 01/15/17 07:54 50 UNITS Insulin Aspart (novoLOG ASPART) SLIDING SCALE G... ACHS CA 01/14/17 21:00 02/13/17 20:59 Miscellaneous (Iv Fluids Completed) 1 ea PRN PRN N/A 01/14/17 20:15 01/14/18 20:14 Pantoprazole Sodium (Protonix Tab) 40 mg BID PO 01/15/17 21:00 02/14/17 08:59 Family History Diabetes mellitus Hypertension Kidney disease Kidney stones Social History Smoking Status: Former Smoker Drug Use: none Marital Status: Housing Status: lives with family 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 Review of Systems A complete review of systems was performed. Pertinent positives are noted above. All other systems are negative. Physical Exam Date Time Temp Pulse Resp B/P (MAP) Pulse Ox O2 Delivery O2 Flow Rate FiO2 01/15/17 09:52 36.7 59 18 169/72 94 01/15/17 08:00 95 Room Air 01/15/17 07:32 36.6 59 18 189/75 (113) 95 Room Air 01/15/17 04:00 Room Air 01/15/17 02:57 36.6 63 18 139/56 (83) 92 Room Air 01/15/17 00:00 Room Air 01/14/17 23:22 36.5 64 20 183/75 (111) 95 Room Air 01/14/17 20:41 36.4 63 18 181/66 97 Room Air 01/14/17 20:26 63 18 166/72 94 01/14/17 20:23 63 18 166/72 94 Room Air 01/14/17 19:07 62 18 183/75 95 Room Air 01/14/17 17:21 61 19 169/67 96 Room Air 01/14/17 16:13 61 01/14/17 15:46 Room Air 01/14/17 15:35 36.3 60 18 146/62 96 Room Air 01/14/17 15:35 94 Room Air General Appearance: WD/WN, no apparent distress Head: normocephalic, atraumatic Eyes: normal inspection, sclerae normal ENT: normal ENT inspection, pharynx normal Neck: supple, + JVD Respiratory/Chest: lungs clear, no respiratory distress, no accessory muscle use Cardiovascular: regular rate, rhythm, no gallop, + systolic murmur Abdomen/GI: non tender, soft Extremities/Musculoskelatal: normal inspection, + pedal edema Neurologic/Psych: alert, normal mood/affect Skin: normal color Laboratory Results Last 24 Hours Test 01/14/17 16:00 01/14/17 17:20 01/14/17 21:08 01/14/17 23:01 White Blood Count 3.65 K/uL Red Blood Count 2.56 M/uL Hemoglobin 7.3 g/dL 6.8 g/dL Hematocrit 23.4 % Mean Corpuscular Volume 91.4 fL Mean Corpuscular Hemoglobin 28.5 pg Mean Corpuscular Hemoglobin Concent 31.2 g/dl Platelet Count 159 K/uL Mean Platelet Volume 11.1 fL Neutrophils (%) (Auto) 73.1 % Lymphocytes (%) (Auto) 16.7 % Monocytes (%) (Auto) 7.7 % Eosinophils (%) (Auto) 2.2 % Basophils (%) (Auto) 0.3 % Neutrophils # (Auto) 2.67 K/uL Lymphocytes # (Auto) 0.61 K/uL Monocytes # (Auto) 0.28 K/uL Eosinophils # (Auto) 0.08 K/uL Basophils # (Auto) 0.01 K/uL RDW Standard Deviation 50.8 fL RDW Coefficient of Variation 15.2 % Immature Granulocyte % (Auto) 0.0 % Immature Granulocyte # (Auto) 0.00 K/uL Ovalocytes 1+ Prothrombin Time 11.8 SECONDS Prothromb Time International Ratio 1.1 Activated Partial Thromboplast Time 26.5 SECONDS Partial Thromboplastin Ratio 1.0 Sodium Level 143 mmol/L Potassium Level 3.4 mmol/L Chloride Level 109 mmol/L Carbon Dioxide Level 25 mmol/L Anion Gap 9.0 mmol/L Blood Urea Nitrogen 91 mg/dl Creatinine 7.40 mg/dl Est Creatinine Clear Calc Drug Dose 11.0 ml/min Estimated GFR () 7.6 Estimated GFR (Non- 6.6 BUN/Creatinine Ratio 12.4 Random Glucose 184 mg/dl Calcium Level 8.3 mg/dl Total Bilirubin 0.4 mg/dl Direct Bilirubin 0.1 mg/dl Aspartate Amino Transf (AST/SGOT) 7 U/L Alanine Aminotransferase (ALT/SGPT) 20 U/L Alkaline Phosphatase 80 U/L Total Creatine Kinase 127 U/L Creatine Kinase MB 2.4 ng/ml Creatine Kinase MB Ratio 1.9 Troponin I 0.047 ng/ml Total Protein 6.5 gm/dl Albumin 3.3 gm/dl Lipase 351 U/L Thyroid Stimulating Hormone (TSH) 0.925 uIu/ml Urine Color YELLOW Urine Appearance CLEAR Urine pH 6.0 Urine Specific [place] 1.013 Urine Protein 3+ Urine Glucose (UA) 1+ Urine Ketones NEG Urine Occult Blood NEG Urine Nitrite NEG Urine Bilirubin NEG Urine Urobilinogen NEG Urine Leukocyte Esterase NEG Urine WBC (Auto) 1-5 /hpf Urine RBC (Auto) 0-4 /hpf Urine Hyaline Casts (Auto) 0 /lpf Urine Epithelial Cells (Auto) 5-10 /lpf Urine Bacteria (Auto) NEG Bedside Glucose 201 mg/dl Test 01/15/17 05:41 01/15/17 06:36 01/15/17 08:16 01/15/17 08:20 Hemoglobin 6.8 g/dL Bedside Glucose 178 mg/dl Hepatitis B Surface Antigen NEG Hepatitis B Surface Antibody NEG Sodium Level 142 mmol/L Potassium Level 3.3 mmol/L Chloride Level 107 mmol/L Carbon Dioxide Level 26 mmol/L Anion Gap 9.0 mmol/L Blood Urea Nitrogen 86 mg/dl Creatinine 7.60 mg/dl Est Creatinine Clear Calc Drug Dose 10.5 ml/min Estimated GFR () 7.4 Estimated GFR (Non- 6.4 BUN/Creatinine Ratio 11.3 Random Glucose 217 mg/dl Calcium Level 8.3 mg/dl Phosphorus Level 4.9 mg/dl Troponin I 0.038 ng/ml Albumin 3.2 gm/dl Impression (1) GI bleed (2) ESRD (end stage renal disease) on dialysis (3) Pulmonary vascular congestion (4) Diabetes (5) Hypertension (6) SOB (shortness of breath) on exertion (7) Anemia Darnell will restart hemodialysis for ESRD today. Orders for dialysis have been entered into the EMR. We will start with a 3.5 hr treatment with Qb 300 as able. AVF has a good thrill and bruit. I have asked to start at 3 kg UF. He may require an additional treatment tomorrow pending follow up evaluation. He will receive 2 units of PRBC during dialysis for symptomatic anemia and GI bleed. Subsequently, he will be restarted on EPO. Due to [place] [facility] [place], his intake (CLIP) will need to be updated. I would ask social work to assist with this. Hepatitis screening is being updated as well. Medications are appropriately dosed for renal function. He reports good UOP with furosemide.
--- NOTE | 2017-01-15 14:21 | Hospitalist Progress Note ---
Hospitalist Progress Note Date of Service Jan 15, 2017. Subjective Pt evaluation today including: conversation w/ patient, conversation w/ senior solutions consultant (Nephrology), review of inpatient medication list Pt receiving HD currently, says he's not sure if he's still SOB as he is lying down. Was having chest pains yesterday but none now, trop trended downward. 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 Constitutional: No fever Cardiovascular: No chest pain Abdomen: + GI bleeding, No pain All Other Systems: Reviewed and Negative Objective Vital Signs Date Time Temp Pulse Resp B/P (MAP) Pulse Ox O2 Delivery O2 Flow Rate FiO2 01/15/17 13:45 71 174/78 01/15/17 13:30 68 173/82 01/15/17 13:15 80 166/74 01/15/17 13:00 36.7 85 18 172/65 01/15/17 13:00 82 172/69 01/15/17 12:45 77 18 155/68 01/15/17 12:45 77 155/68 01/15/17 12:30 75 162/61 01/15/17 12:30 75 18 162/61 01/15/17 12:16 36.8 81 18 149/59 01/15/17 12:15 81 149/59 01/15/17 12:05 36.8 60 18 170/77 99 01/15/17 12:00 84 154/68 01/15/17 12:00 95 Room Air 01/15/17 11:45 36.8 75 168/71 (103) 01/15/17 11:37 36.8 69 20 169/79 97 01/15/17 11:35 36.5 58 19 148/68 (94) 93 Room Air 01/15/17 11:07 36.8 57 18 169/72 97 01/15/17 10:37 36.8 57 18 165/78 96 01/15/17 10:22 36.5 58 20 169/79 96 01/15/17 10:07 36.8 58 20 169/78 95 01/15/17 09:52 36.7 59 18 169/72 94 01/15/17 08:00 95 Room Air 01/15/17 07:32 36.6 59 18 189/75 (113) 95 Room Air 01/15/17 04:00 Room Air 01/15/17 02:57 36.6 63 18 139/56 (83) 92 Room Air 01/15/17 00:00 Room Air 01/14/17 23:22 36.5 64 20 183/75 (111) 95 Room Air 01/14/17 20:41 36.4 63 18 181/66 97 Room Air 01/14/17 20:26 63 18 166/72 94 01/14/17 20:23 63 18 166/72 94 Room Air 01/14/17 19:07 62 18 183/75 95 Room Air 01/14/17 17:21 61 19 169/67 96 Room Air 01/14/17 16:13 61 01/14/17 15:46 Room Air 01/14/17 15:35 36.3 60 18 146/62 96 Room Air 01/14/17 15:35 94 Room Air Physical Exam General Appearance: WD/WN, no apparent distress Eyes: normal inspection, sclerae normal ENT: hearing grossly normal Neck: trachea midline Respiratory/Chest: lungs clear, normal breath sounds, no respiratory distress, no accessory muscle use Cardiovascular: regular rate, rhythm, no murmur, + pertinent finding (1+ pitting edema legs to knees bilat) Abdomen: normal bowel sounds, non tender, soft, no pulsatile mass Extremities: non-tender, no calf tenderness Neurologic/Psychiatric: alert, normal mood/affect, oriented x 3 Skin: normal color, warm/dry, no rash Laboratory Results Last 24 Hours Test 01/14/17 16:00 01/14/17 17:20 01/14/17 21:08 01/14/17 23:01 White Blood Count 3.65 K/uL Red Blood Count 2.56 M/uL Hemoglobin 7.3 g/dL 6.8 g/dL Hematocrit 23.4 % Mean Corpuscular Volume 91.4 fL Mean Corpuscular Hemoglobin 28.5 pg Mean Corpuscular Hemoglobin Concent 31.2 g/dl Platelet Count 159 K/uL Mean Platelet Volume 11.1 fL Neutrophils (%) (Auto) 73.1 % Lymphocytes (%) (Auto) 16.7 % Monocytes (%) (Auto) 7.7 % Eosinophils (%) (Auto) 2.2 % Basophils (%) (Auto) 0.3 % Neutrophils # (Auto) 2.67 K/uL Lymphocytes # (Auto) 0.61 K/uL Monocytes # (Auto) 0.28 K/uL Eosinophils # (Auto) 0.08 K/uL Basophils # (Auto) 0.01 K/uL RDW Standard Deviation 50.8 fL RDW Coefficient of Variation 15.2 % Immature Granulocyte % (Auto) 0.0 % Immature Granulocyte # (Auto) 0.00 K/uL Ovalocytes 1+ Prothrombin Time 11.8 SECONDS Prothromb Time International Ratio 1.1 Activated Partial Thromboplast Time 26.5 SECONDS Partial Thromboplastin Ratio 1.0 Sodium Level 143 mmol/L Potassium Level 3.4 mmol/L Chloride Level 109 mmol/L Carbon Dioxide Level 25 mmol/L Anion Gap 9.0 mmol/L Blood Urea Nitrogen 91 mg/dl Creatinine 7.40 mg/dl Est Creatinine Clear Calc Drug Dose 11.0 ml/min Estimated GFR () 7.6 Estimated GFR (Non- 6.6 BUN/Creatinine Ratio 12.4 Random Glucose 184 mg/dl Calcium Level 8.3 mg/dl Total Bilirubin 0.4 mg/dl Direct Bilirubin 0.1 mg/dl Aspartate Amino Transf (AST/SGOT) 7 U/L Alanine Aminotransferase (ALT/SGPT) 20 U/L Alkaline Phosphatase 80 U/L Total Creatine Kinase 127 U/L Creatine Kinase MB 2.4 ng/ml Creatine Kinase MB Ratio 1.9 Troponin I 0.047 ng/ml Total Protein 6.5 gm/dl Albumin 3.3 gm/dl Lipase 351 U/L Thyroid Stimulating Hormone (TSH) 0.925 uIu/ml Urine Color YELLOW Urine Appearance CLEAR Urine pH 6.0 Urine Specific [place] 1.013 Urine Protein 3+ Urine Glucose (UA) 1+ Urine Ketones NEG Urine Occult Blood NEG Urine Nitrite NEG Urine Bilirubin NEG Urine Urobilinogen NEG Urine Leukocyte Esterase NEG Urine WBC (Auto) 1-5 /hpf Urine RBC (Auto) 0-4 /hpf Urine Hyaline Casts (Auto) 0 /lpf Urine Epithelial Cells (Auto) 5-10 /lpf Urine Bacteria (Auto) NEG Bedside Glucose 201 mg/dl Test 01/15/17 05:41 01/15/17 06:36 01/15/17 08:16 01/15/17 08:20 Hemoglobin 6.8 g/dL Bedside Glucose 178 mg/dl Hepatitis B Surface Antigen NEG Hepatitis B Surface Antibody NEG Sodium Level 142 mmol/L Potassium Level 3.3 mmol/L Chloride Level 107 mmol/L Carbon Dioxide Level 26 mmol/L Anion Gap 9.0 mmol/L Blood Urea Nitrogen 86 mg/dl Creatinine 7.60 mg/dl Est Creatinine Clear Calc Drug Dose 10.5 ml/min Estimated GFR () 7.4 Estimated GFR (Non- 6.4 BUN/Creatinine Ratio 11.3 Random Glucose 217 mg/dl Calcium Level 8.3 mg/dl Phosphorus Level 4.9 mg/dl Troponin I 0.038 ng/ml Albumin 3.2 gm/dl Test 01/15/17 11:19 Bedside Glucose 242 mg/dl Assessment and Plan 75 y/o M Hx ESRD, DM, HTN, CAD, recurrent GI bleed. The pt was in dialysis until about 6 weeks ago when he made a decision to terminate treatment. He has become progressively SOB over the past 2 weeks and presents stating that he would like to restart dialysis now. He also reports that he has had black stools for the past 6 weeks. Initial labs are notable for worsening anemia and renal impairment as expected. 1) SOB - likely related to both volume overload and anemia - addressed below 2) ESRD on HD - pt has not had dialysis in 6 weeks - Discussed case with nephrology. Started HD inpatient and pt plans to continue on a routine basis as outpt after discharge. -continue Lasix at prescribed as he does make urine -appreciate Nephrology management -needs set up again with outpt HD center-CM aware -follow renal panel 3) Acute blood loss Anemia and Anemia of renal disease - likely due to both blood loss from GI bleed and noncompliance with EPO. 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 Also with heartburn. COuld have bleeding from either PUD or GAVE.. 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 Hyperglycemia here -continue long acting insulin and SSI -add on carb coverage and tighten down correction factor today 5) CAD - no evidence of ACS - mildly elecated troponin on admission, now resolved, no history of DC and CAD may be nonocclusive per previous workup. 6) HTN/HL-BPs elevated here -continue home labetalol, lasix,lisinopril after HD days, hydralazine, and amlodipine Full code - SCDs due to GI blood loss
--- NOTE | 2017-01-15 18:29 | Dialysis Progress Note ---
Hemodialysis Note Date of Service Jan 15, 2017. Chief Complaint ESRD Subjective Darnell was seen and evaluated during hemodialysis this afternoon. Qb appropriate. Blood pressure stable. He tolerated the treatment well. Some cramping noted at the end of treatment. Net UF 3 kg. Review of Systems A complete review of systems was performed. Pertinent positives are noted above. All other systems are negative. Vital Signs Last 8 Hrs Date Time Temp Pulse Resp B/P (MAP) Pulse Ox O2 Delivery O2 Flow Rate FiO2 01/15/17 15:45 36.7 71 175/76 (109) 01/15/17 15:30 70 161/71 01/15/17 15:15 71 157/67 01/15/17 15:00 68 161/64 01/15/17 14:45 75 158/69 01/15/17 14:30 76 165/75 01/15/17 14:15 71 174/76 01/15/17 14:00 66 167/83 01/15/17 13:45 71 174/78 01/15/17 13:30 68 173/82 01/15/17 13:15 80 166/74 01/15/17 13:00 36.7 85 18 172/65 01/15/17 13:00 82 172/69 01/15/17 12:45 77 18 155/68 01/15/17 12:45 77 155/68 01/15/17 12:30 75 162/61 01/15/17 12:30 75 18 162/61 01/15/17 12:16 36.8 81 18 149/59 01/15/17 12:15 81 149/59 01/15/17 12:05 36.8 60 18 170/77 99 01/15/17 12:00 84 154/68 01/15/17 12:00 95 Room Air 01/15/17 11:45 36.8 75 168/71 (103) 01/15/17 11:37 36.8 69 20 169/79 97 01/15/17 11:35 36.5 58 19 148/68 (94) 93 Room Air 01/15/17 11:07 36.8 57 18 169/72 97 01/15/17 10:37 36.8 57 18 165/78 96 01/15/17 10:22 36.5 58 20 169/79 96 01/15/17 10:07 36.8 58 20 169/78 95 01/15/17 09:52 36.7 59 18 169/72 94 I & O 24-Hour Column 01/16/17 08:00 Intake Total 685 ml Output Total 3600 ml Balance -2915 ml Last Recorded Weight Weight (Kilograms): 98.500 Physical Exam General Appearance: WD/WN, no apparent distress Head: normocephalic, atraumatic Eyes: normal inspection, sclerae normal ENT: normal ENT inspection, pharynx normal Neck: supple, no JVD Respiratory/Chest: lungs clear, no respiratory distress Cardiovascular: regular rate, rhythm Abdomen/GI: non tender, soft Neurologic/Psych: alert, normal mood/affect Social History Drug Use: none Marital Status: Housing Status: lives with family 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 Laboratory Results Past 24 Hours 01/14/17 23:01 01/15/17 05:41 01/15/17 08:20 Test 01/14/17 17:20 01/14/17 21:08 01/15/17 06:36 01/15/17 08:16 Urine Color YELLOW Urine Appearance CLEAR (CLEAR) Urine pH 6.0 (4.5-7.5) Urine Specific [place] 1.013 (1.000-1.030) Urine Protein 3+ (NEG) Urine Glucose (UA) 1+ (NEG) Urine Ketones NEG (NEG) Urine Occult Blood NEG (NEG) Urine Nitrite NEG (NEG) Urine Bilirubin NEG (NEG) Urine Urobilinogen NEG (NEG) Urine Leukocyte Esterase NEG (NEG) Urine WBC (Auto) 1-5 /hpf (0-5) Urine RBC (Auto) 0-4 /hpf (0-4) Urine Hyaline Casts (Auto) 0 /lpf (0-5) Urine Epithelial Cells (Auto) 5-10 /lpf (0-5) Urine Bacteria (Auto) NEG (NEG) Bedside Glucose 201 mg/dl (70-99) 178 mg/dl (70-99) Hepatitis B Surface Antigen NEG (NEG) Hepatitis B Surface Antibody NEG Test 01/15/17 08:20 01/15/17 11:19 Anion Gap 9.0 mmol/L (3-11) Est Creatinine Clear Calc Drug Dose 10.5 ml/min Estimated GFR () 7.4 Estimated GFR (Non- 6.4 BUN/Creatinine Ratio 11.3 (10-20) Calcium Level 8.3 mg/dl (8.5-10.1) Phosphorus Level 4.9 mg/dl (2.5-4.9) Troponin I 0.038 ng/ml (0-0.045) Albumin 3.2 gm/dl (3.4-5.0) Bedside Glucose 242 mg/dl (70-99) Allergies Coded Allergies: Metformin (Verified Adverse Reaction, Intermediate, CONFUSION, 05/21/16) Medications Current Inpatient Medications Medications (Trade) Dose Ordered Sig/Unique Route Start Time Stop Time Status Last Admin Dose Admin Acetaminophen (Tylenol Tab) 650 mg Q4H PRN PO 01/14/17 20:00 02/13/17 19:59 Nitroglycerin (Nitrostat Tab) 0.4 mg UD PRN SL 01/14/17 20:00 02/13/17 19:59 Morphine Sulfate (MoRPHine SULFATE INJ) 2 mg Q30M PRN IV 01/14/17 20:00 01/28/17 19:59 01/15/17 14:14 2 MG Amlodipine Besylate (Norvasc Tab) 2.5 mg DAILY PO 01/15/17 09:00 02/14/17 08:59 01/15/17 07:51 2.5 MG Aspirin (Ecotrin Tab) 81 mg DAILY PO 01/15/17 09:00 02/14/17 08:59 01/15/17 07:50 81 MG Cholecalciferol (Vitamin D Tab) 1,000 inter.unit QAM PO 01/15/17 09:00 02/14/17 08:59 01/15/17 07:50 1,000 INTER.UNIT Furosemide (Lasix Tab) 80 mg TID PO 01/14/17 21:00 02/13/17 20:59 01/15/17 07:50 80 MG Hydralazine HCl (Apresoline Tab) 50 mg TID PO 01/14/17 21:00 02/13/17 20:59 01/15/17 07:58 50 MG Ipratropium [place] (Atrovent Hfa Inhaler) 2 puffs Q6HWA INH 01/15/17 00:00 02/14/17 00:00 01/15/17 12:33 2 PUFFS Labetalol HCl (Normodyne Tab) 300 mg BID PO 01/14/17 21:00 02/13/17 20:59 01/15/17 07:56 300 MG Levalbuterol (Xopenex Hfa Inhaler) 2 puffs Q6HWA INH 01/15/17 00:00 02/14/17 00:00 01/15/17 12:33 2 PUFFS Levothyroxine Sodium (Synthroid Tab) 200 mcg DAILYBB PO 01/15/17 06:00 02/14/17 06:59 01/15/17 05:48 200 MCG Lisinopril (Zestril Tab) 40 mg DAILY PO 01/15/17 09:00 02/14/17 08:59 01/15/17 07:56 40 MG Rosuvastatin Calcium (Crestor Tab) 20 mg DAILY PO 01/15/17 09:00 02/14/17 08:59 01/15/17 07:49 20 MG Tamsulosin HCl (Flomax Cap) 0.4 mg QAM PO 01/15/17 09:00 02/14/17 08:59 01/15/17 07:51 0.4 MG Cyanocobalamin (Vitamin B-12 Tab) 1,000 mcg QAM PO 01/15/17 09:00 02/14/17 08:59 01/15/17 07:51 1,000 MCG Insulin Detemir (Levemir Insulin) 45 units PM SC 01/14/17 21:00 02/13/17 20:59 01/14/17 21:14 20 UNITS Insulin Detemir (Levemir Insulin) 50 units QAM SC 01/15/17 09:00 02/14/17 08:59 01/15/17 07:54 50 UNITS Insulin Aspart (novoLOG ASPART) SLIDING SCALE G... ACHS SC 01/14/17 21:00 02/13/17 20:59 01/15/17 12:36 3 UNITS Miscellaneous (Iv Fluids Completed) 1 ea PRN PRN N/A 01/14/17 20:15 01/14/18 20:14 Pantoprazole Sodium (Protonix Tab) 40 mg BID PO 01/15/17 21:00 02/14/17 08:59 Impression (1) GI bleed (2) ESRD (end stage renal disease) on dialysis (3) Pulmonary vascular congestion (4) Diabetes (5) Hypertension (6) SOB (shortness of breath) on exertion (7) Anemia Patient tolerated his hemodialysis treatment well. There was cramping in his legs and left hand at the end of treatment. Blood pressure stable. Overall, volume status improved. Will re evaluate in AM but next expected hemodialysis would be on the
[2017-01-15] MEDS: ACETAMINOPHEN IV 650 MG in EMPTY BAG 0 ML IV PRN (21:05)
[2017-01-15] MEDS: PANTOprazole SOD 40 MG TAB PO SCH (21:09)
[2017-01-16] VITALS (8 sets, daily range): BP systolic 152–171; BP diastolic 56–78; PULSE 59–62; TEMP 36.4–36.7; O2SAT 92–95
[2017-01-16] MEDS: LEVOTHYROXINE 200 MCG TAB PO SCH (05:19)
[2017-01-16] MEDS: ACETAMINOPHEN IV 650 MG in EMPTY BAG 0 ML IV PRN (05:56)
[2017-01-16] MEDS: INSULIN ASPART 100 UNITS/ML 3 ML PEN SC SCH ×4 (07:00→21:00)
[2017-01-16] MEDS: LEValbuterol HFA 15GM INHALER INH SCH ×3 (07:35→18:00)
[2017-01-16] MEDS: IPRATROPIUM BROMIDE HFA INHALER INH SCH ×3 (07:35→18:00)
[2017-01-16] MEDS: TAMSULOSIN HCL 0.4 MG CAP PO SCH (07:36)
[2017-01-16] MEDS: CHOLECALCIFEROL 1000 INTER.UNIT TAB PO SCH (07:36)
[2017-01-16] MEDS: ROSUVASTATIN CALCIUM 20 MG TAB PO SCH (07:36)
[2017-01-16] MEDS: CYANOCOBALAMIN 500 MCG TAB (VIT B-12) PO SCH (07:37)
[2017-01-16] MEDS: AMLODIPINE BESYLATE 5 MG TAB PO SCH (07:37)
[2017-01-16] MEDS: ASPIRIN 81 MG ECTAB PO SCH (07:37)
[2017-01-16] MEDS: LABETALOL HCL 300 MG TAB PO SCH ×2 (07:38→20:40)
[2017-01-16] MEDS: FUROSEMIDE 80 MG TAB PO SCH ×3 (07:38→20:41)
[2017-01-16] MEDS: LISINOPRIL 40 MG TAB PO SCH (07:42)
[2017-01-16] MEDS: INSULIN DETEMIR SC SCH ×2 (08:14→20:45)
[2017-01-16 08:18] LABS: BUN/CREATININE RATIO 8.7 (10-20); CREATININE 5.6 mg/dl (0.60-1.40); HEMATOCRIT 24.5 % (42-52); MAGNESIUM 2.1 mg/dl (1.8-2.4); MEAN CELL VOLUME 89.1 fL (80-100); MEAN CORPUSCULAR HEMOGLOBIN 29.8 pg (25-34); MEAN CORPUSCULAR HGB CONC 33.5 g/dl (32-36); MEAN PLATELET VOLUME 11.6 fL (7.4-10.4); PLATELET COUNT 146 K/uL (130-400); POTASSIUM 3.1 mmol/L (3.5-5.1); RED BLOOD COUNT 2.75 M/uL (4.7-6.1); WHITE BLOOD COUNT 6.06 K/uL (4.8-10.8)
[2017-01-16 08:19] LABS: BASO % 0.5 %; BASO ABS # 0.03 K/uL (0-0.2); COMPLETE YES; EOS % 2.6 %; GIANT PLATELETS 1+; IG% 0.3 %; LYMPH % 9.6 %; LYMPH ABS # 0.58 K/uL (1.2-3.4); MONO % 9.7 %; NEUT % 77.3 %
--- NOTE | 2017-01-16 08:56 | Nephrology Progress Note ---
Nephrology Progress Note Date of Service Jan 16, 2017. Chief Complaint ESRD Subjective No acute events overnight. HD completed yesterday afternoon. Tolerated UF 3 kg. BP stable. Mr. Mcintyre is breathing comfortably. He is very tired. He was not able to sleep last night. Appetite is good. He reports persistent blood in his stool. Review of Systems A complete review of systems was performed. Pertinent positives are noted above. All other systems are negative. Vital Signs Last 8 Hrs Date Time Temp Pulse Resp B/P (MAP) Pulse Ox O2 Delivery O2 Flow Rate FiO2 01/16/17 08:00 95 Room Air 01/16/17 07:04 36.6 60 18 155/56 (89) 95 Room Air 01/16/17 04:00 Room Air 01/16/17 03:17 36.7 59 19 162/78 (106) 92 Last Recorded Weight Weight (Kilograms): 95.800 Physical Exam General Appearance: WD/WN, no apparent distress Head: normocephalic, atraumatic Eyes: normal inspection, sclerae normal ENT: normal ENT inspection, pharynx normal Neck: supple, + JVD Respiratory/Chest: lungs clear, no respiratory distress, no accessory muscle use Cardiovascular: regular rate, rhythm, no gallop Abdomen/GI: non tender, soft Extremities/Musculoskelatal: normal inspection, + pertinent finding (AVF with thrill and bruit) Neurologic/Psych: alert, oriented x 3 Family History Diabetes mellitus Hypertension Kidney disease Kidney stones Social History Drug Use: none Marital Status: Housing Status: lives with family 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 Laboratory Results Past 24 Hours 01/16/17 07:00 Red Blood Count 2.75, Mean Corpuscular Volume 89.1, Mean Corpuscular Hemoglobin 29.8, Mean Corpuscular Hemoglobin Concent 33.5, Mean Platelet Volume 11.6, Neutrophils (%) (Auto) 77.3, Lymphocytes (%) (Auto) 9.6, Monocytes (%) (Auto) 9.7, Eosinophils (%) (Auto) 2.6, Basophils (%) (Auto) 0.5, Neutrophils # (Auto) 4.68, Lymphocytes # (Auto) 0.58, Monocytes # (Auto) 0.59, Eosinophils # (Auto) 0.16, Basophils # (Auto) 0.03 01/16/17 07:00 Test 01/15/17 11:19 01/15/17 16:04 01/15/17 20:09 01/16/17 00:28 Bedside Glucose 242 mg/dl (70-99) 107 mg/dl (70-99) 144 mg/dl (70-99) 189 mg/dl (70-99) Test 01/16/17 06:12 01/16/17 07:00 Bedside Glucose 90 mg/dl (70-99) White Blood Count 6.06 K/uL (4.8-10.8) Red Blood Count 2.75 M/uL (4.7-6.1) Hemoglobin 8.2 g/dL (14.0-18.0) Hematocrit 24.5 % (42-52) Mean Corpuscular Volume 89.1 fL (80-100) Mean Corpuscular Hemoglobin 29.8 pg (25-34) Mean Corpuscular Hemoglobin Concent 33.5 g/dl (32-36) Platelet Count 146 K/uL (130-400) Mean Platelet Volume 11.6 fL (7.4-10.4) Neutrophils (%) (Auto) 77.3 % Lymphocytes (%) (Auto) 9.6 % Monocytes (%) (Auto) 9.7 % Eosinophils (%) (Auto) 2.6 % Basophils (%) (Auto) 0.5 % Neutrophils # (Auto) 4.68 K/uL (1.4-6.5) Lymphocytes # (Auto) 0.58 K/uL (1.2-3.4) Monocytes # (Auto) 0.59 K/uL (0.11-0.59) Eosinophils # (Auto) 0.16 K/uL (0-0.5) Basophils # (Auto) 0.03 K/uL (0-0.2) RDW Standard Deviation 50.7 fL (36.4-46.3) RDW Coefficient of Variation 15.6 % (11.5-14.5) Immature Granulocyte % (Auto) 0.3 % Immature Granulocyte # (Auto) 0.02 K/uL (0.00-0.02) Giant Platelets 1+ Anion Gap 7.0 mmol/L (3-11) Est Creatinine Clear Calc Drug Dose 13.1 ml/min Estimated GFR () 10.7 Estimated GFR (Non- 9.2 BUN/Creatinine Ratio 8.7 (10-20) Calcium Level 8.0 mg/dl (8.5-10.1) Magnesium Level 2.1 mg/dl (1.8-2.4) Date/Time Source Procedure Growth Status 01/15/17 22:00 Nasal MRSA DNA Surveillance Screen - Final Specimen Negative for MRSA by DNA Probe Complete Allergies Coded Allergies: Metformin (Verified Adverse Reaction, Intermediate, CONFUSION, 05/21/16) Medications Current Inpatient Medications Medications (Trade) Dose Ordered Sig/Unique Route Start Time Stop Time Status Last Admin Dose Admin Acetaminophen (Tylenol Tab) 650 mg Q4H PRN PO 01/14/17 20:00 02/13/17 19:59 Nitroglycerin (Nitrostat Tab) 0.4 mg UD PRN SL 01/14/17 20:00 02/13/17 19:59 Morphine Sulfate (MoRPHine SULFATE INJ) 2 mg Q30M PRN IV 01/14/17 20:00 01/28/17 19:59 01/15/17 14:14 2 MG Amlodipine Besylate (Norvasc Tab) 2.5 mg DAILY PO 01/15/17 09:00 02/14/17 08:59 01/16/17 07:37 2.5 MG Aspirin (Ecotrin Tab) 81 mg DAILY PO 01/15/17 09:00 02/14/17 08:59 01/16/17 07:37 81 MG Cholecalciferol (Vitamin D Tab) 1,000 inter.unit QAM PO 01/15/17 09:00 02/14/17 08:59 01/16/17 07:36 1,000 INTER.UNIT Furosemide (Lasix Tab) 80 mg TID PO 01/14/17 21:00 02/13/17 20:59 01/16/17 07:38 80 MG Hydralazine HCl (Apresoline Tab) 50 mg TID PO 01/14/17 21:00 02/13/17 20:59 01/16/17 07:37 50 MG Ipratropium [place] (Atrovent Hfa Inhaler) 2 puffs Q6HWA INH 01/15/17 00:00 02/14/17 00:00 01/16/17 07:35 2 PUFFS Labetalol HCl (Normodyne Tab) 300 mg BID PO 01/14/17 21:00 02/13/17 20:59 01/16/17 07:38 300 MG Levalbuterol (Xopenex Hfa Inhaler) 2 puffs Q6HWA INH 01/15/17 00:00 02/14/17 00:00 01/16/17 07:35 2 PUFFS Levothyroxine Sodium (Synthroid Tab) 200 mcg DAILYBB PO 01/15/17 06:00 02/14/17 06:59 01/15/17 05:48 200 MCG Lisinopril (Zestril Tab) 40 mg DAILY PO 01/15/17 09:00 02/14/17 08:59 01/16/17 07:42 40 MG Rosuvastatin Calcium (Crestor Tab) 20 mg DAILY PO 01/15/17 09:00 02/14/17 08:59 01/16/17 07:36 20 MG Tamsulosin HCl (Flomax Cap) 0.4 mg QAM PO 01/15/17 09:00 02/14/17 08:59 01/16/17 07:36 0.4 MG Cyanocobalamin (Vitamin B-12 Tab) 1,000 mcg QAM PO 01/15/17 09:00 02/14/17 08:59 01/16/17 07:37 1,000 MCG Insulin Detemir (Levemir Insulin) 45 units PM SC 01/14/17 21:00 02/13/17 20:59 01/14/17 21:14 20 UNITS Insulin Detemir (Levemir Insulin) 50 units QAM SC 01/15/17 09:00 02/14/17 08:59 01/15/17 07:54 50 UNITS Insulin Aspart (novoLOG ASPART) SLIDING SCALE G... ACHS SC 01/14/17 21:00 02/13/17 20:59 01/15/17 17:11 5 UNITS Miscellaneous (Iv Fluids Completed) 1 ea PRN PRN N/A 01/14/17 20:15 01/14/18 20:14 Pantoprazole Sodium (Protonix Tab) 40 mg BID PO 01/15/17 21:00 02/14/17 08:59 01/15/17 21:09 40 MG Acetaminophen 650 mg/Empty Bag 65 ml @ 260 mls/hr Q6H PRN IV 01/15/17 20:30 02/14/17 20:29 01/16/17 05:56 260 MLS/HR Impression (1) GI bleed (2) ESRD (end stage renal disease) on dialysis (3) Pulmonary vascular congestion (4) Diabetes (5) Hypertension (6) SOB (shortness of breath) on exertion (7) Anemia Darnell is a 76 year-old male with ESRD on HD admitted with volume overload, anemia and GI bleed. He completed HD yesterday with good UF. Volume status and electrolytes are currently appropriate. He is scheduled for EGD today. 2 units PRBC transfused with HD yesterday. No need for HD today. Plan next treatment tomorrow. Medications are appropriately dosed for renal function. He reports good UOP with furosemide.
[2017-01-16] MEDS ORDERED: PROPOFOL IV EMULSION 10 MG/ML 20 ML VIAL IV ONE (08:57)
[2017-01-16] MEDS ORDERED: LIDOCAINE HCL 2% 2 ML VIAL (20MG/ML) ONE (08:57)
[2017-01-16] MEDS: PANTOprazole SOD 40 MG TAB PO SCH ×2 (09:28→20:40)
--- NOTE | 2017-01-16 10:18 | GI REPORT ---
Procedure Date: 01/16/2017 9:13 AM Procedure: Upper GI endoscopy Indications: Melena Medicines: Monitored Anesthesia Care Complications: No immediate complications. Estimated Blood Loss: Estimated blood loss: none. Procedure: Pre-Anesthesia Assessment: - Prior to the procedure, a History and Physical was performed, and patient medications and allergies were reviewed. The patient's tolerance of previous anesthesia was also reviewed. The risks and benefits of the procedure and the sedation options and risks were discussed with the patient. All questions were answered, and informed consent was obtained. Prior Anticoagulants: The patient has taken aspirin, last dose was 1 day prior to procedure. ASA Grade Assessment: III - A patient with severe systemic disease. After reviewing the risks and benefits, the patient was deemed in satisfactory condition to undergo the procedure. After obtaining informed consent, the endoscope was passed under direct vision. Throughout the procedure, the patient's blood pressure, pulse, and oxygen saturations were monitored continuously. The scope was introduced through the mouth, and advanced to the second part of duodenum. The upper GI endoscopy was accomplished without difficulty. The patient tolerated the procedure well. Findings: The esophagus was normal. A small hiatus hernia was present. Multiple 3 to 5 mm sessile polyps with no stigmata of recent bleeding were found in the stomach. 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 Coagulation for bleeding prevention using argon plasma at 0.4 liters/minute and 35 [place] was successful. A 15 mm non-bleeding diverticulum was found in the second part of the duodenum. One non-bleeding cratered duodenal ulcer with no stigmata of bleeding was found in the second part of the duodenum. The lesion was 5 mm in largest dimension. Impression: - Normal esophagus. - Small hiatus hernia. - Multiple gastric polyps. - Gastric antral vascular ectasia without bleeding. Treated with argon plasma coagulation (APC). - Non-bleeding duodenal diverticulum. - One non-bleeding duodenal ulcer with no stigmata of bleeding. - No specimens collected. Recommendation: - Return patient to hospital [facility] for ongoing care. - Use sucralfate suspension 1 gram PO QID for 10 days. - Use Protonix (pantoprazole) 40 mg PO BID. - Perform an H. pylori stool antigen (HpSA) test today. Geoff Hernandez DO 01/16/2017 9:49:25 AM This report has been signed electronically. Note Initiated On: 01/16/2017 9:13 AM I attest to the content of the Intraoperative Record and orders documented therein, exceptions below
[2017-01-16] MEDS: SUCRALFATE 1 GM/10 ML UDC PO SCH ×3 (12:48→20:40)
[2017-01-16] MEDS ORDERED: POTASSIUM CHLORIDE 10 MEQ TABCR PO STA (13:20)
--- NOTE | 2017-01-16 13:26 | Hospitalist Progress Note ---
Hospitalist Progress Note Date of Service Jan 16, 2017. Subjective Pt evaluation today including: conversation w/ patient Pt feels "terrible" as he just returned from EGD. He's hungry and yet a little nauseated. No stools today. Denies CP or SOB but hasn't moved much today. All Other Systems: Reviewed and Negative Objective Vital Signs Date Time Temp Pulse Resp B/P (MAP) Pulse Ox O2 Delivery O2 Flow Rate FiO2 01/16/17 12:00 95 Room Air 01/16/17 11:18 36.4 59 20 171/75 (107) 94 Room Air 01/16/17 10:04 60 20 140/46 (77) 93 Room Air 01/16/17 09:53 59 20 117/41 (66) 94 Room Air 01/16/17 09:38 58 20 115/45 (68) 93 Room Air 01/16/17 08:51 36.5 63 20 153/83 (106) 95 Room Air 01/16/17 08:00 95 Room Air 01/16/17 07:04 36.6 60 18 155/56 (89) 95 Room Air 01/16/17 04:00 Room Air 01/16/17 03:17 36.7 59 19 162/78 (106) 92 01/16/17 00:25 36.6 62 18 152/64 (93) 92 Room Air 01/16/17 00:00 Room Air 01/15/17 21:10 36.9 76 18 189/78 (115) 01/15/17 20:00 Room Air 01/15/17 16:00 Room Air 01/15/17 16:00 36.7 81 16 178/79 (112) 01/15/17 15:45 36.7 71 175/76 (109) 01/15/17 15:30 70 161/71 01/15/17 15:15 71 157/67 01/15/17 15:00 68 161/64 01/15/17 14:45 75 158/69 01/15/17 14:30 76 165/75 01/15/17 14:15 71 174/76 01/15/17 14:00 66 167/83 01/15/17 13:45 71 174/78 01/15/17 13:30 68 173/82 01/15/17 13:15 80 166/74 Physical Exam General Appearance: WD/WN, no apparent distress Eyes: normal inspection, sclerae normal ENT: hearing grossly normal Neck: trachea midline Respiratory/Chest: lungs clear, normal breath sounds, no respiratory distress, no accessory muscle use Cardiovascular: regular rate, rhythm, no gallop, no murmur, + pertinent finding (mild pitting edema legs bilat) Abdomen: normal bowel sounds, non tender, soft Extremities: non-tender, no calf tenderness Neurologic/Psychiatric: alert, normal mood/affect, oriented x 3 Skin: normal color, warm/dry, no rash Laboratory Results Last 24 Hours Test 01/15/17 16:04 01/15/17 20:09 01/16/17 00:28 01/16/17 06:12 Bedside Glucose 107 mg/dl 144 mg/dl 189 mg/dl 90 mg/dl Test 01/16/17 07:00 01/16/17 11:11 White Blood Count 6.06 K/uL Red Blood Count 2.75 M/uL Hemoglobin 8.2 g/dL Hematocrit 24.5 % Mean Corpuscular Volume 89.1 fL Mean Corpuscular Hemoglobin 29.8 pg Mean Corpuscular Hemoglobin Concent 33.5 g/dl Platelet Count 146 K/uL Mean Platelet Volume 11.6 fL Neutrophils (%) (Auto) 77.3 % Lymphocytes (%) (Auto) 9.6 % Monocytes (%) (Auto) 9.7 % Eosinophils (%) (Auto) 2.6 % Basophils (%) (Auto) 0.5 % Neutrophils # (Auto) 4.68 K/uL Lymphocytes # (Auto) 0.58 K/uL Monocytes # (Auto) 0.59 K/uL Eosinophils # (Auto) 0.16 K/uL Basophils # (Auto) 0.03 K/uL RDW Standard Deviation 50.7 fL RDW Coefficient of Variation 15.6 % Immature Granulocyte % (Auto) 0.3 % Immature Granulocyte # (Auto) 0.02 K/uL Giant Platelets 1+ Sodium Level 142 mmol/L Potassium Level 3.1 mmol/L Chloride Level 105 mmol/L Carbon Dioxide Level 30 mmol/L Anion Gap 7.0 mmol/L Blood Urea Nitrogen 48 mg/dl Creatinine 5.60 mg/dl Est Creatinine Clear Calc Drug Dose 13.1 ml/min Estimated GFR () 10.7 Estimated GFR (Non- 9.2 BUN/Creatinine Ratio 8.7 Random Glucose 89 mg/dl Calcium Level 8.0 mg/dl Magnesium Level 2.1 mg/dl Bedside Glucose 116 mg/dl Assessment and Plan 75 y/o M Hx ESRD, DM, HTN, CAD, recurrent GI bleed. The pt was in dialysis until about 6 weeks ago when he made a decision to terminate treatment. He has become progressively SOB over the past 2 weeks and presents stating that he would like to restart dialysis now. He also reports that he has had black stools for the past 6 weeks. Initial labs are notable for worsening anemia and renal impairment as expected. 1) SOB - likely related to both volume overload and anemia - improved today after PRBC transfusion and HD yesterday -continue HD, follow Hgb 2) ESRD on HD - pt has not had dialysis in 6 weeks - Discussed case with nephrology. Started HD inpatient and pt plans to continue on a routine basis as outpt after discharge. -continue Lasix at prescribed as he does make urine -appreciate Nephrology management -needs set up again with outpt HD center-CM aware -follow renal panel -plan for HD tomorrow here -I d/w Nephro about safety of replacing K+--> ok to give 40 meq po x 1 3) Acute blood loss Anemia and Anemia of renal disease/GAVE/PUD - due to both blood loss from GI bleed and noncompliance with EPO. 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 Also with heartburn frequently prior to admission. Hgb down to 6.8 day after admission. Gastroenterology consult appreciated EGD showed: - Normal esophagus. - Small hiatus hernia. - Multiple gastric polyps. - Gastric antral vascular ectasia without bleeding. Treated with argon plasma coagulation (APC). - Non-bleeding duodenal diverticulum. - One non-bleeding duodenal ulcer with no stigmata of bleeding. - No specimens collected. Recommendation: - Return patient to hospital cheema for ongoing care. - Use sucralfate suspension 1 gram PO QID for 10 days. - Use Protonix (pantoprazole) 40 mg PO BID. - Perform an H. pylori stool antigen (HpSA) test today -PRBC 2 units transfused with HD on 01/15 -continue PPI bid -follow CBC daily here and then once monthly with dialysis as outpt as may require recurrent argon laser therapy/EGDs or blood transfusions with GAVE 4) DMII on continuous churn buttermaker insulin- last HgbA1C 7.7% on 01/01/17. Hyperglycemia here now improved -continue long acting insulin and SSI 5) CAD - no evidence of ACS - mildly elevated troponin on admission, now resolved, no history of NM and CAD may be nonocclusive per previous workup. 6) HTN/HL-BPs elevated here initially, now improved -continue home labetalol, lasix,lisinopril after HD days, hydralazine, and amlodipine Full code - SCDs due to GI blood loss
[2017-01-17] VITALS (26 sets, daily range): BP systolic 135–177; BP diastolic 52–77; PULSE 52–68; TEMP 36.4–36.8; O2SAT 91–96
[2017-01-17] MEDS: LEValbuterol HFA 15GM INHALER INH SCH ×4 (06:00→18:00)
[2017-01-17] MEDS: IPRATROPIUM BROMIDE HFA INHALER INH SCH ×4 (06:00→18:00)
[2017-01-17] MEDS: SUCRALFATE 1 GM/10 ML UDC PO SCH ×3 (06:12→16:08)
[2017-01-17] MEDS: LEVOTHYROXINE 200 MCG TAB PO SCH (06:12)
[2017-01-17 06:54] LABS: BASO % 0.3 %; BASO ABS # 0.02 K/uL (0-0.2); EOS % 1.9 %; HEMATOCRIT 27.1 % (42-52); LYMPH % 11.1 %; MEAN CELL VOLUME 91.6 fL (80-100); MEAN CORPUSCULAR HEMOGLOBIN 29.4 pg (25-34); MEAN CORPUSCULAR HGB CONC 32.1 g/dl (32-36); MEAN PLATELET VOLUME 11.1 fL (7.4-10.4); MONO % 9.6 %; NEUT % 77.1 %; PLATELET COUNT 158 K/uL (130-400); RED BLOOD COUNT 2.96 M/uL (4.7-6.1); WHITE BLOOD COUNT 6.33 K/uL (4.8-10.8)
[2017-01-17] MEDS: INSULIN ASPART 100 UNITS/ML 3 ML PEN SC SCH ×3 (07:00→16:15)
[2017-01-17] MEDS: ROSUVASTATIN CALCIUM 20 MG TAB PO SCH (07:32)
[2017-01-17] MEDS: TAMSULOSIN HCL 0.4 MG CAP PO SCH (07:32)
[2017-01-17] MEDS: PANTOprazole SOD 40 MG TAB PO SCH (07:33)
[2017-01-17] MEDS: FUROSEMIDE 80 MG TAB PO SCH ×2 (07:34→16:09)
[2017-01-17] MEDS: LISINOPRIL 40 MG TAB PO SCH (07:34)
[2017-01-17] MEDS: LABETALOL HCL 300 MG TAB PO SCH (07:34)
[2017-01-17 07:35] LABS: BUN/CREATININE RATIO 8.7 (10-20); CALCIUM 8.3 mg/dl (8.5-10.1); CREATININE 6.2 mg/dl (0.60-1.40); MAGNESIUM 2.3 mg/dl (1.8-2.4); PHOSPHORUS 4.4 mg/dl (2.5-4.9); POTASSIUM 3.4 mmol/L (3.5-5.1)
[2017-01-17] MEDS: CHOLECALCIFEROL 1000 INTER.UNIT TAB PO SCH (07:35)
[2017-01-17] MEDS: AMLODIPINE BESYLATE 5 MG TAB PO SCH (07:35)
[2017-01-17] MEDS: ASPIRIN 81 MG ECTAB PO SCH (07:35)
[2017-01-17] MEDS: CYANOCOBALAMIN 500 MCG TAB (VIT B-12) PO SCH (07:36)
[2017-01-17] MEDS: INSULIN DETEMIR SC SCH (07:40)
[2017-01-17 07:57] LABS: COMPLETE YES; GIANT PLATELETS 1+
--- NOTE | 2017-01-17 10:03 | Gastroenterology Progress Note ---
Progress Note Date of Service: Jan 17, 2017 Subjective Pt evaluation today including: conversation w/ patient, physical exam, lab review, review of inpatient medication list Patient reports feeling well today. He denies any significant nausea and is tolerating diet. Findings of duodenal ulcer and duodenal diverticulum as well as moderate GAVE status post APC yesterday by Dr. Hernandez. H&H has remained stable and he reports resolving melena. No new GI complaints. Review of Systems Constitutional: No fever, No chills Respiratory: No shortness of breath Cardiac: No chest pain Abdomen: + see HPI Psych: No problem reported Medications Current Inpatient Medications Medications (Trade) Dose Ordered Sig/Unique Route Start Time Stop Time Status Last Admin Dose Admin Acetaminophen (Tylenol Tab) 650 mg Q4H PRN PO 01/14/17 20:00 02/13/17 19:59 Nitroglycerin (Nitrostat Tab) 0.4 mg UD PRN SL 01/14/17 20:00 02/13/17 19:59 Morphine Sulfate (MoRPHine SULFATE INJ) 2 mg Q30M PRN IV 01/14/17 20:00 01/28/17 19:59 01/15/17 14:14 2 MG Amlodipine Besylate (Norvasc Tab) 2.5 mg DAILY PO 01/15/17 09:00 02/14/17 08:59 01/17/17 07:35 2.5 MG Aspirin (Ecotrin Tab) 81 mg DAILY PO 01/15/17 09:00 02/14/17 08:59 01/17/17 07:35 81 MG Cholecalciferol (Vitamin D Tab) 1,000 inter.unit QAM PO 01/15/17 09:00 02/14/17 08:59 01/17/17 07:35 1,000 INTER.UNIT Furosemide (Lasix Tab) 80 mg TID PO 01/14/17 21:00 02/13/17 20:59 01/17/17 07:34 80 MG Hydralazine HCl (Apresoline Tab) 50 mg TID PO 01/14/17 21:00 02/13/17 20:59 01/17/17 07:32 50 MG Ipratropium [place] (Atrovent Hfa Inhaler) 2 puffs Q6HWA INH 01/15/17 00:00 02/14/17 00:00 01/16/17 12:48 2 PUFFS Labetalol HCl (Normodyne Tab) 300 mg BID PO 01/14/17 21:00 02/13/17 20:59 01/17/17 07:34 300 MG Levalbuterol (Xopenex Hfa Inhaler) 2 puffs Q6HWA INH 01/15/17 00:00 02/14/17 00:00 01/16/17 12:48 2 PUFFS Levothyroxine Sodium (Synthroid Tab) 200 mcg DAILYBB PO 01/15/17 06:00 02/14/17 06:59 01/17/17 06:12 200 MCG Lisinopril (Zestril Tab) 40 mg DAILY PO 01/15/17 09:00 02/14/17 08:59 01/17/17 07:34 40 MG Rosuvastatin Calcium (Crestor Tab) 20 mg DAILY PO 01/15/17 09:00 02/14/17 08:59 01/17/17 07:32 20 MG Tamsulosin HCl (Flomax Cap) 0.4 mg QAM PO 01/15/17 09:00 02/14/17 08:59 01/17/17 07:32 0.4 MG Cyanocobalamin (Vitamin B-12 Tab) 1,000 mcg QAM PO 01/15/17 09:00 02/14/17 08:59 01/17/17 07:36 1,000 MCG Insulin Detemir (Levemir Insulin) 45 units PM SC 01/14/17 21:00 02/13/17 20:59 01/14/17 21:14 20 UNITS Insulin Detemir (Levemir Insulin) 50 units QAM SC 01/15/17 09:00 02/14/17 08:59 01/17/17 07:40 50 UNITS Insulin Aspart (novoLOG ASPART) SLIDING SCALE G... ACHS SC 01/14/17 21:00 02/13/17 20:59 01/16/17 16:05 2 UNITS Miscellaneous (Iv Fluids Completed) 1 ea PRN PRN N/A 01/14/17 20:15 01/14/18 20:14 Pantoprazole Sodium (Protonix Tab) 40 mg BID PO 01/15/17 21:00 02/14/17 08:59 01/17/17 07:33 40 MG Acetaminophen 650 mg/Empty Bag 65 ml @ 260 mls/hr Q6H PRN IV 01/15/17 20:30 02/14/17 20:29 01/16/17 05:56 260 MLS/HR Sucralfate (Carafate Susp) 1 gm ACHS PO 01/16/17 11:00 02/15/17 10:59 01/17/17 06:12 1 GM Objective Vital Signs Date Time Temp Pulse Resp B/P (MAP) Pulse Ox O2 Delivery O2 Flow Rate FiO2 01/17/17 08:00 95 Room Air 01/17/17 07:11 36.8 63 20 177/74 (108) 92 Room Air 01/17/17 04:18 36.7 68 18 156/69 (98) 91 Room Air 01/17/17 04:00 Room Air 01/17/17 00:00 36.7 67 18 168/69 (102) 93 Room Air 01/17/17 00:00 93 Room Air 01/16/17 20:00 Room Air 01/16/17 19:25 36.7 60 20 169/72 (104) 95 Room Air 01/16/17 16:00 Room Air 01/16/17 15:39 36.5 62 20 158/65 (96) 93 Room Air 01/16/17 12:00 95 Room Air 01/16/17 11:18 36.4 59 20 171/75 (107) 94 Room Air 01/16/17 10:04 60 20 140/46 (77) 93 Room Air 01/16/17 09:53 59 20 117/41 (66) 94 Room Air Physical Exam General Appearance: no apparent distress Eyes: EOMI Respiratory/Chest: lungs clear, normal breath sounds, no respiratory distress Cardiovascular: regular rate, rhythm, no gallop, no murmur Abdomen: normal bowel sounds, non tender, soft Extremities: no pedal edema Neurologic/Psych: alert, normal mood/affect, oriented x 3 Skin: warm/dry Laboratory Results Last 24 Hours Test 01/16/17 11:11 01/16/17 15:52 01/16/17 20:43 01/17/17 06:27 Bedside Glucose 116 mg/dl 197 mg/dl 129 mg/dl White Blood Count 6.33 K/uL Red Blood Count 2.96 M/uL Hemoglobin 8.7 g/dL Hematocrit 27.1 % Mean Corpuscular Volume 91.6 fL Mean Corpuscular Hemoglobin 29.4 pg Mean Corpuscular Hemoglobin Concent 32.1 g/dl Platelet Count 158 K/uL Mean Platelet Volume 11.1 fL Neutrophils (%) (Auto) 77.1 % Lymphocytes (%) (Auto) 11.1 % Monocytes (%) (Auto) 9.6 % Eosinophils (%) (Auto) 1.9 % Basophils (%) (Auto) 0.3 % Neutrophils # (Auto) 4.88 K/uL Lymphocytes # (Auto) 0.70 K/uL Monocytes # (Auto) 0.61 K/uL Eosinophils # (Auto) 0.12 K/uL Basophils # (Auto) 0.02 K/uL RDW Standard Deviation 52.8 fL RDW Coefficient of Variation 15.7 % Immature Granulocyte % (Auto) 0.0 % Immature Granulocyte # (Auto) 0.00 K/uL Giant Platelets 1+ Sodium Level 142 mmol/L Potassium Level 3.4 mmol/L Chloride Level 106 mmol/L Carbon Dioxide Level 27 mmol/L Anion Gap 9.0 mmol/L Blood Urea Nitrogen 53 mg/dl Creatinine 6.20 mg/dl Est Creatinine Clear Calc Drug Dose 11.8 ml/min Estimated GFR () 9.4 Estimated GFR (Non- 8.1 BUN/Creatinine Ratio 8.7 Random Glucose 141 mg/dl Calcium Level 8.3 mg/dl Phosphorus Level 4.4 mg/dl Magnesium Level 2.3 mg/dl Albumin 3.1 gm/dl Test 01/17/17 06:57 Bedside Glucose 147 mg/dl Assessment and Plan Patient is a 76 year old male admitted with symptomatic anemia, black stools and history of GAVE noted to have moderate GAVE s/p APC and clean-based duodenal ulcer. 1. Continue Protonix 40 mg BID. 2. Diet as tolerated. 3. Avoid NSAIDs. 4. Continue supportive care. Agree with YULIA Hernandez as above Abd: Soft, NT, ND, +BS Eating well Continue current therapy
--- NOTE | 2017-01-17 10:33 | Clinical Documentation Query ---
CLINICAL DOCUMENTATION QUERY 76 year old male who presents to the Emergency Room with complaints of increasing shortness of breath and numbness in his arms and legs. In your clinical opinion is this patient being managed for: ( ) Acute on chronic preserved EF CHF evidenced by SOB, dyspnea on exertion, orthopnea, and pulmonary vascular congestion treated with Lasix and hemodialysis. ( ) Other explanation of clinical findings (Please Explain) ( ) Unable to determine (Please Define) ( ) Need to Discuss ( ) Not Agree The medical record reflects the following clinical findings, treatment, and risk factors. Clinical Indicators: CXR showing Cardiomegaly with mild pulmonary vascular congestion. Echo from 11/05/14 showed severe concentric LVH, moderate biatrial dilation, mild MR, and severe pulmonary htn. Treatment: PO Lasix and HD Risk Factors: Age, ESRD with resent refusal of dialysis, Please clarify and document your clinical opinion in the progress notes and discharge summary. Terms such as "probable", "suspected", "likely", "questionable", "possible", or "still to be ruled out" are acceptable. IF IN AGREEMENT, YOU MUST DOCUMENT ABOVE DIAGNOSTIC STATEMENT IN DAILY PROGRESS NOTES AND DISCHARGE SUMMARY. This document is not part of the patient's record. Thank You, Cesar Costa, RN [phone]
--- NOTE | 2017-01-17 11:50 | Nephrology Progress Note ---
Nephrology Progress Note Date of Service Jan 17, 2017. Chief Complaint ESRD Subjective No acute events overnight. Melena improving. Denies pain. No shortness of breath. Darnell is hopeful that he can be discharged soon. I reviewed the plan of care with Dr. Alan this morning. Review of Systems A complete review of systems was performed. Pertinent positives are noted above. All other systems are negative. Vital Signs Last 8 Hrs Date Time Temp Pulse Resp B/P (MAP) Pulse Ox O2 Delivery O2 Flow Rate FiO2 01/17/17 08:00 95 Room Air 01/17/17 07:11 36.8 63 20 177/74 (108) 92 Room Air 01/17/17 04:18 36.7 68 18 156/69 (98) 91 Room Air 01/17/17 04:00 Room Air Last Recorded Weight Weight (Kilograms): 95.300 Physical Exam General Appearance: WD/WN, no apparent distress Head: normocephalic, atraumatic Eyes: normal inspection, sclerae normal ENT: normal ENT inspection, pharynx normal Neck: supple, no JVD Respiratory/Chest: lungs clear, no respiratory distress, no accessory muscle use Cardiovascular: regular rate, rhythm, no gallop, no murmur Abdomen/GI: non tender, soft Extremities/Musculoskelatal: normal inspection, + pedal edema Neurologic/Psych: alert, oriented x 3 Family History Diabetes mellitus Hypertension Kidney disease Kidney stones Social History Drug Use: none Marital Status: Housing Status: lives with family 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 Laboratory Results Past 24 Hours 01/17/17 06:27 Red Blood Count 2.96, Mean Corpuscular Volume 91.6, Mean Corpuscular Hemoglobin 29.4, Mean Corpuscular Hemoglobin Concent 32.1, Mean Platelet Volume 11.1, Neutrophils (%) (Auto) 77.1, Lymphocytes (%) (Auto) 11.1, Monocytes (%) (Auto) 9.6, Eosinophils (%) (Auto) 1.9, Basophils (%) (Auto) 0.3, Neutrophils # (Auto) 4.88, Lymphocytes # (Auto) 0.70, Monocytes # (Auto) 0.61, Eosinophils # (Auto) 0.12, Basophils # (Auto) 0.02 01/17/17 06:27 Test 01/16/17 15:52 01/16/17 20:43 01/17/17 06:27 01/17/17 06:57 Bedside Glucose 197 mg/dl (70-99) 129 mg/dl (70-99) 147 mg/dl (70-99) White Blood Count 6.33 K/uL (4.8-10.8) Red Blood Count 2.96 M/uL (4.7-6.1) Hemoglobin 8.7 g/dL (14.0-18.0) Hematocrit 27.1 % (42-52) Mean Corpuscular Volume 91.6 fL (80-100) Mean Corpuscular Hemoglobin 29.4 pg (25-34) Mean Corpuscular Hemoglobin Concent 32.1 g/dl (32-36) Platelet Count 158 K/uL (130-400) Mean Platelet Volume 11.1 fL (7.4-10.4) Neutrophils (%) (Auto) 77.1 % Lymphocytes (%) (Auto) 11.1 % Monocytes (%) (Auto) 9.6 % Eosinophils (%) (Auto) 1.9 % Basophils (%) (Auto) 0.3 % Neutrophils # (Auto) 4.88 K/uL (1.4-6.5) Lymphocytes # (Auto) 0.70 K/uL (1.2-3.4) Monocytes # (Auto) 0.61 K/uL (0.11-0.59) Eosinophils # (Auto) 0.12 K/uL (0-0.5) Basophils # (Auto) 0.02 K/uL (0-0.2) RDW Standard Deviation 52.8 fL (36.4-46.3) RDW Coefficient of Variation 15.7 % (11.5-14.5) Immature Granulocyte % (Auto) 0.0 % Immature Granulocyte # (Auto) 0.00 K/uL (0.00-0.02) Giant Platelets 1+ Anion Gap 9.0 mmol/L (3-11) Est Creatinine Clear Calc Drug Dose 11.8 ml/min Estimated GFR () 9.4 Estimated GFR (Non- 8.1 BUN/Creatinine Ratio 8.7 (10-20) Calcium Level 8.3 mg/dl (8.5-10.1) Phosphorus Level 4.4 mg/dl (2.5-4.9) Magnesium Level 2.3 mg/dl (1.8-2.4) Albumin 3.1 gm/dl (3.4-5.0) Test 01/17/17 11:25 Bedside Glucose 167 mg/dl (70-99) Allergies Coded Allergies: Metformin (Verified Adverse Reaction, Intermediate, CONFUSION, 05/21/16) Medications Current Inpatient Medications Medications (Trade) Dose Ordered Sig/Unique Route Start Time Stop Time Status Last Admin Dose Admin Acetaminophen (Tylenol Tab) 650 mg Q4H PRN PO 01/14/17 20:00 02/13/17 19:59 Nitroglycerin (Nitrostat Tab) 0.4 mg UD PRN SL 01/14/17 20:00 02/13/17 19:59 Morphine Sulfate (MoRPHine SULFATE INJ) 2 mg Q30M PRN IV 01/14/17 20:00 01/28/17 19:59 01/15/17 14:14 2 MG Amlodipine Besylate (Norvasc Tab) 2.5 mg DAILY PO 01/15/17 09:00 02/14/17 08:59 01/17/17 07:35 2.5 MG Aspirin (Ecotrin Tab) 81 mg DAILY PO 01/15/17 09:00 02/14/17 08:59 01/17/17 07:35 81 MG Cholecalciferol (Vitamin D Tab) 1,000 inter.unit QAM PO 01/15/17 09:00 02/14/17 08:59 01/17/17 07:35 1,000 INTER.UNIT Furosemide (Lasix Tab) 80 mg TID PO 01/14/17 21:00 02/13/17 20:59 01/17/17 07:34 80 MG Hydralazine HCl (Apresoline Tab) 50 mg TID PO 01/14/17 21:00 02/13/17 20:59 01/17/17 07:32 50 MG Ipratropium [place] (Atrovent Hfa Inhaler) 2 puffs Q6HWA INH 01/15/17 00:00 02/14/17 00:00 01/16/17 12:48 2 PUFFS Labetalol HCl (Normodyne Tab) 300 mg BID PO 01/14/17 21:00 02/13/17 20:59 01/17/17 07:34 300 MG Levalbuterol (Xopenex Hfa Inhaler) 2 puffs Q6HWA INH 01/15/17 00:00 02/14/17 00:00 01/16/17 12:48 2 PUFFS Levothyroxine Sodium (Synthroid Tab) 200 mcg DAILYBB PO 01/15/17 06:00 02/14/17 06:59 01/17/17 06:12 200 MCG Lisinopril (Zestril Tab) 40 mg DAILY PO 01/15/17 09:00 02/14/17 08:59 01/17/17 07:34 40 MG Rosuvastatin Calcium (Crestor Tab) 20 mg DAILY PO 01/15/17 09:00 02/14/17 08:59 01/17/17 07:32 20 MG Tamsulosin HCl (Flomax Cap) 0.4 mg QAM PO 01/15/17 09:00 02/14/17 08:59 01/17/17 07:32 0.4 MG Cyanocobalamin (Vitamin B-12 Tab) 1,000 mcg QAM PO 01/15/17 09:00 02/14/17 08:59 01/17/17 07:36 1,000 MCG Insulin Detemir (Levemir Insulin) 45 units PM SC 01/14/17 21:00 02/13/17 20:59 01/14/17 21:14 20 UNITS Insulin Detemir (Levemir Insulin) 50 units QAM SC 01/15/17 09:00 02/14/17 08:59 01/17/17 07:40 50 UNITS Insulin Aspart (novoLOG ASPART) SLIDING SCALE G... ACHS SD 01/14/17 21:00 02/13/17 20:59 01/16/17 16:05 2 UNITS Miscellaneous (Iv Fluids Completed) 1 ea PRN PRN N/A 01/14/17 20:15 01/14/18 20:14 Pantoprazole Sodium (Protonix Tab) 40 mg BID PO 01/15/17 21:00 02/14/17 08:59 01/17/17 07:33 40 MG Acetaminophen 650 mg/Empty Bag 65 ml @ 260 mls/hr Q6H PRN IV 01/15/17 20:30 02/14/17 20:29 01/16/17 05:56 260 MLS/HR Sucralfate (Carafate Susp) 1 gm ACHS PO 01/16/17 11:00 02/15/17 10:59 01/17/17 06:12 1 GM Impression (1) GI bleed (2) ESRD (end stage renal disease) on dialysis (3) Pulmonary vascular congestion (4) Diabetes (5) Hypertension (6) SOB (shortness of breath) on exertion (7) Anemia Darnell is a 76 year-old male with ESRD on HD admitted with volume overload, anemia and GI bleed. EGD yesterday revealed GAVE treated with APC a non bleeding duodenal ulcer was also appreciated. 2 units PRBC transfused with HD on Saturday. Patient is scheduled for HD today. Orders were entered into the EMR. He will reviece EPO with HD. UF goal is 2 kg. Medications are appropriately dosed for renal function. He reports good UOP with furosemide. He has been hypokalemic and will be treated with a 4 K bath today.
[2017-01-17] MEDS ORDERED: EPOETIN ALFA 10,000 UNITS/ML VIAL IV SCH (14:00)
[2017-01-17] MEDS ORDERED: OMEP40CA41 PO (16:46)
[2017-01-17] MEDS ORDERED: CRFUDL PO (16:46)
--- NOTE | 2017-01-17 16:51 | Discharge Instructions ---
Discharge Instructions Date of Service Jan 17, 2017. Admission Reason for Admission: Esrd, Sob Discharge Discharge Diagnosis / Problem: End Stage Renal Disease requiring dialysis, GI Bleeding, Anemia Discharge Goals Goal(s): Improve disease control, Diagnostic testing, Therapeutic intervention Activity Recommendations Activity Limitations: resume your previous activity Exercise/Sports Limitations: none Shower/Bathe: no limitations . Instructions / Follow-Up Instructions / Follow-Up You were admitted for shortness of breath which was secondary to fluid overload and need for dialysis, plus from anemia from blood loss. You were bleeding from abnormal blood vessels in the stomach and were also found to have an ulcer in your small intestine. You should take your Prilosec twice a day now, and also take Sucralfate four times daily to protect your stomach. You should report to dialysis at [facility] in [place] as scheduled on Saturday. Please follow up with your PCP within 1-2 weeks Current Hospital Diet Patient's current hospital diet: Diabetes Type 1 Diet, Renal Diet Discharge Diet Recommended Diet: Diabetes Type 1 Diet, Renal Diet Procedures Procedures Performed: EGD with APC Chest xray Pending Studies Studies pending at discharge: no Laboratory Results Last 24 Hours Test 01/16/17 20:43 01/17/17 06:27 01/17/17 06:57 01/17/17 11:25 Bedside Glucose 129 mg/dl 147 mg/dl 167 mg/dl White Blood Count 6.33 K/uL Red Blood Count 2.96 M/uL Hemoglobin 8.7 g/dL Hematocrit 27.1 % Mean Corpuscular Volume 91.6 fL Mean Corpuscular Hemoglobin 29.4 pg Mean Corpuscular Hemoglobin Concent 32.1 g/dl Platelet Count 158 K/uL Mean Platelet Volume 11.1 fL Neutrophils (%) (Auto) 77.1 % Lymphocytes (%) (Auto) 11.1 % Monocytes (%) (Auto) 9.6 % Eosinophils (%) (Auto) 1.9 % Basophils (%) (Auto) 0.3 % Neutrophils # (Auto) 4.88 K/uL Lymphocytes # (Auto) 0.70 K/uL Monocytes # (Auto) 0.61 K/uL Eosinophils # (Auto) 0.12 K/uL Basophils # (Auto) 0.02 K/uL RDW Standard Deviation 52.8 fL RDW Coefficient of Variation 15.7 % Immature Granulocyte % (Auto) 0.0 % Immature Granulocyte # (Auto) 0.00 K/uL Giant Platelets 1+ Sodium Level 142 mmol/L Potassium Level 3.4 mmol/L Chloride Level 106 mmol/L Carbon Dioxide Level 27 mmol/L Anion Gap 9.0 mmol/L Blood Urea Nitrogen 53 mg/dl Creatinine 6.20 mg/dl Est Creatinine Clear Calc Drug Dose 11.8 ml/min Estimated GFR () 9.4 Estimated GFR (Non- 8.1 BUN/Creatinine Ratio 8.7 Random Glucose 141 mg/dl Calcium Level 8.3 mg/dl Phosphorus Level 4.4 mg/dl Magnesium Level 2.3 mg/dl Albumin 3.1 gm/dl Test 01/17/17 16:16 Bedside Glucose 122 mg/dl Hemoglobin A1c Test 01/01/17 09:04 Range/Units Estimated Average Glucose 174 mg/dl Hemoglobin A1c 7.7 H 4.5-5.6 % Lipid Panel Test 01/01/17 09:04 Range/Units Triglycerides Level 73 0-150 mg/dl Cholesterol Level 64 0-200 mg/dl HDL Cholesterol 37 mg/dl Cholesterol/HDL Ratio 1.7 LDL Cholesterol, Calculated 12 mg/dl Medical Emergencies . Who to Call and When: Medical Emergencies: If at any time you feel your situation is an emergency, please call 911 immediately. . Non-Emergent Contact Non-Emergency issues call your: Primary Care Provider, Solution Mixer Call Non-Emergent contact if: you have a fever, you have any medication questions you have worsening shortness of breath, black stools, lightheadedness, or for any other concerns. . . "Provider Documentation" section prepared by Phylicia Alan. . VTE Core Measure Inpt VTE Proph given/why not?: SCD's
--- NOTE | 2017-01-17 21:49 | Discharge Summary ---
Discharge Summary Date of Service Jan 17, 2017. 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 Immunizations: Have You Had Influenza Vaccine: Unknown History of Tetanus Vaccine?: unknown History of Pneumococcal: Yes Pneumococcal Date: Dec 19, 2007 History of Hepatitis B Vaccine: Unknown Procedures: EGD with APC Chest xray Consultations: GI Nephrology Medication Reconciliation New Medications: Sucralfate (Sucralfate) 1 Gm/10 Ml Susp 1 GM PO ACHS for 30 Days, #700 ML Changed Medications: Omeprazole (Prilosec) 40 Mg Cap 40 MG PO BID for 30 Days, #60 CAP (Changed from: DAILY) Continued Medications: Amlodipine Besylate (Norvasc) 2.5 Mg Tab 2.5 MG PO DAILY, #30 Aspirin (Aspirin Ec) 81 Mg Tab 81 MG PO DAILY Cholecalciferol (Vitamin D3) 1,000 Unit Tab 1000 INTER.UNIT PO QAM, TAB Cyanocobalamin (Vitamin B12) 1,000 Mcg Tab 1000 MCG PO QAM Epoetin Zheng (Procrit) 10,000 Units Inj 1 ML SC MONTHLY HOLD IF HGB IS GREATER THAN 11 Furosemide (Furosemide) 80 Mg Tab 80 MG PO TID Hydralazine HCl (Hydralazine HCl) 50 Mg Tab 50 MG PO TID Insulin Aspart (Novolog) 100 Units/Ml Inj 20 UNITS SC AMPM ADJUST PER SLIDING SCALE Insulin Detemir (Levemir) 100 Units/Ml Inj 45 UNITS SC QPM ADJUST PER SLIDING SCALE Insulin Detemir (Levemir) 100 Units/Ml Inj 50 UNITS SC QAM ADJUST PER SLIDING SCALE Ipratropium [place] (Atrovent Hfa) 200 Puffs/3400 Mcg Aers 2 PUFFS INH Q6H, GM Labetalol HCl (Labetalol HCl) 100 Mg Tab 300 MG PO BID Levalbuterol Tartrate (Levalbuterol Tartrate Hfa) 45 Mcg/Act Aer 2 PUFFS INH Q6H Levothyroxine Sodium (Levothyroxine Sodium) 25 Mcg Tab 25 MCG PO 2XWK, TAB EVERY SATURDAY AND SATURDAY TAKE AN ADDITIONAL 25 MCG ALONG WITH 200 MCG TABLET Levothyroxine Sodium (Levothyroxine Sodium) 200 Mcg Tab 200 MCG PO DAILY, TAB Lisinopril (Lisinopril) 40 Mg Tab 40 MG PO DAILY ON DAYS OF DIALYSIS TAKE AFTER TREATMENT Rosuvastatin Calcium (Rosuvastatin Calcium) 20 Mg Tab 20 MG PO DAILY Tamsulosin HCl (Tamsulosin HCl) 0.4 Mg Cap 0.4 MG PO QAM Discharge Exam Feeling well, had HD today. No further melena. Had one brown BM today. No abd pain, no further SOB, no CP Physical Exam Vitals reviewed, Tele with NSR,SB, PVCs General Appearance: WD/WN, no apparent distress Eyes: normal inspection, sclerae normal ENT: hearing grossly normal Neck: trachea midline Respiratory/Chest: lungs clear, normal breath sounds, no respiratory distress, no accessory muscle use Cardiovascular: regular rate, rhythm, no gallop, no murmur, + pertinent finding (mild pitting edema legs bilat) Abdomen: normal bowel sounds, non tender, soft Extremities: non-tender, no calf tenderness Neurologic/Psychiatric: alert, normal mood/affect, oriented x 3 Skin: normal color, warm/dry, no rash Review of Systems: Constitutional: No fever Eyes: No problem reported ENT: No problem reported Respiratory: No shortness of breath, No dyspnea on exertion Cardiovascular: No chest pain Abdomen: No pain, No nausea, No vomiting, No GI bleeding Musculoskeletal: No problem reported Genitourinary - Male: No problem reported Neurologic: No problem reported Psychiatric: No problem reported Endocrine: No problem reported Hematologic / Lymphatic: No problem reported Integumentary: No problem reported Hospital Course 75 y/o M Hx ESRD, DM, HTN, CAD, recurrent GI bleed. The pt was in dialysis until about 6 weeks ago when he made a decision to terminate treatment. He has become progressively SOB over the past 2 weeks and presents stating that he would like to restart dialysis now. He also reports that he has had black stools for the past 6 weeks. Initial labs are notable for worsening anemia and renal impairment as expected. 1) SOB - likely related to both volume overload and anemia - improved after PRBC transfusion and HD -continue HD, follow Hgb twice monthly at dialysis 2) ESRD on HD - pt had not had dialysis in 6 weeks - Discussed case with nephrology. Started HD inpatient and pt plans to continue on a routine basis as outpt after discharge at [facility]. -continue Lasix 80mg po tid -appreciate Nephrology management 3) Acute blood loss Anemia and Anemia of renal disease/GAVE/PUD - due to both blood loss from GI bleed and noncompliance with EPO. 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 Also with heartburn frequently prior to admission. Hgb down to 6.8 day after admission. Transfused 2 units PRBCs and hgb remains stable in the upper 8s Gastroenterology consult appreciated EGD showed: - Normal esophagus. - Small hiatus hernia. - Multiple gastric polyps. - Gastric antral vascular ectasia without bleeding. Treated with argon plasma coagulation (APC). - Non-bleeding duodenal diverticulum. - One non-bleeding duodenal ulcer with no stigmata of bleeding. - No specimens collected. Recommendation: - Return patient to hospital cheema for ongoing care. - Use sucralfate suspension 1 gram PO QID for 10 days. - Use Protonix (pantoprazole) 40 mg PO BID. - Perform an H. pylori stool antigen (HpSA) test -continue PPI bid, Sucralfate qid -follow CBC with dialysis as outpt as may require recurrent argon laser therapy/ EGDs or blood transfusions with GAVE periodically -check H. 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 Hyperglycemia here now improved -continue long acting insulin and SSI 5) CAD - no evidence of ACS - mildly elevated troponin on admission, now resolved, no history of [place] and CAD may be nonocclusive per previous workup. 6) HTN/HL-BPs elevated here initially, now improved -continue home labetalol, lasix,lisinopril after HD days, hydralazine, and amlodipine Total Time Spent: Greater than 30 minutes This includes examination of the patient, discharge planning, medication reconciliation, and communication with other providers. Discharge Instructions Please refer to the electronic Patient Visit Report (Discharge Instructions) for additional information. Follow-Up PCP within 1-2 weeks Dialysis on Sat 01/19 Additional Copies To Merlyn Briceno MD; Mahsa Wang DO
--- NOTE | 2017-02-06 13:23 | Anesthesiology Progress Note ---
Anesthesia Post Op Note Date & Time Feb 06, 2017 at 13:22 Vital Signs Pain Intensity: 0.0 Notes Mental Status: alert / awake / arousable, participated in evaluation Pt Amnestic to Procedure: Yes Nausea / Vomiting: adequately controlled Pain: adequately controlled Airway Patency, RR, SpO2: stable & adequate BP & HR: stable & adequate Hydration State: stable & adequate Anesthetic Complications: no major complications apparent Review of EMR at this time indicates that pt was discharged without anesthesia related complaints or complications.
== END 2017-01-17 18:18 | disposition home or self-care (01) | DRG 377 ==
LOC: C.EDB 15:33 → C.2T 20:02 → ENRESERV 20:10 → EDBEDREQ 20:14 → OBSVTOIN 01-15 12:35
PROVIDERS: ADMIT Internal Medicine; ATTEND Family Medicine
PROC: 0W3P8ZZ Control Bleeding in Gastrointestinal Tract, Via Natural or Artificial Opening Endoscopic (ICD-10-PCS; principal; 2017-01-16 08:49)
DX: K92.1 Melena (principal); N18.6 End stage renal disease; I12.0 Hypertensive chronic kidney disease with stage 5 chronic kidney disease or end stage renal disease; D62 Acute posthemorrhagic anemia; E11.22 Type 2 diabetes mellitus with diabetic chronic kidney disease; K57.10 Diverticulosis of small intestine without perforation or abscess without bleeding; K31.819 Angiodysplasia of stomach and duodenum without bleeding; K26.9 Duodenal ulcer, unspecified as acute or chronic, without hemorrhage or perforation; K31.7 Polyp of stomach and duodenum; K44.9 Diaphragmatic hernia without obstruction or gangrene; E87.6 Hypokalemia; R25.2 Cramp and spasm; R11.0 Nausea; R12 Heartburn; D63.1 Anemia in chronic kidney disease; R79.89 Other specified abnormal findings of blood chemistry; E11.65 Type 2 diabetes mellitus with hyperglycemia; J44.9 Chronic obstructive pulmonary disease, unspecified; E78.5 Hyperlipidemia, unspecified; K76.9 Liver disease, unspecified; I25.10 Atherosclerotic heart disease of native coronary artery without angina pectoris; Z91.15 Patient's noncompliance with renal dialysis; Z99.2 Dependence on renal dialysis; Z91.14 Patient's other noncompliance with medication regimen; Z86.010 Personal history of colon polyps; Z87.891 Personal history of nicotine dependence; Z79.4 Long term (current) use of insulin; Z79.82 Long term (current) use of aspirin; Z79.899 Other long term (current) drug therapy

== ENCOUNTER → 2017-02-01 | Outpatient (CLI) | payer MEDICARE, OTHER ==
[~2017-02-01] MED LIST changes: +AMLO2.5T PO; +APR50 PO; +ASPI81TA28 PO; +ATRIN INH; +CRFUDL PO; -DOCU100C31 PO; +FLM4 PO; -HYDR-4717 PO; -INSUINJ12 SC; -IPRA17AE2 INH; +LBT100 PO; +LEVA45AE INH; -LEVAAER2 PO; +LSN40 PO; +LSX80 PO; +LVMI SC; +NVLG SC; -NVLGI SC; +OMEP40CA41 PO; +ROSU20TA22 PO; -TRAM-10 PO
== END | disposition home or self-care (01) ==
LOC: C.LABSPEC 14:45
PROVIDERS: ATTEND Family Medicine
DX: D64.9 Anemia, unspecified (principal); K92.2 Gastrointestinal hemorrhage, unspecified

== ENCOUNTER → 2017-02-20 | Outpatient (CLI) | payer MEDICARE ==
--- NOTE | 2017-02-20 14:05 | DIAGNOSTIC IMAGING REPORT ---
ULTRASOUND LEFT UPPER EXTREMITY VENOUS CLINICAL HISTORY: Left arm swelling. COMPARISON STUDY: No priors. TECHNIQUE: Real-time, grayscale, and color Doppler sonography of the deep veins of the left upper extremity is performed. Compression and augmentation were utilized. FINDINGS: There is no sonographic evidence of deep venous thrombosis identified in the left upper extremity. The left internal jugular, axillary, and brachial veins are patent and normally compressible. Normal venous waveforms and augmentation are seen within the left subclavian vein. The cephalic and basilic veins are clear. The visualized radial and ulnar veins are patent. A fistula is identified between the left cephalic vein and the left radial artery in the forearm. The fistula is patent. IMPRESSION: 1. There is no sonographic evidence of deep venous thrombosis identified in the left upper extremity. 2. The left forearm fistula is patent. Electronically signed by: Shayan Gonzalez M.D. 02/20/2017 2:04 PM Dictated Date/Time: 02/20/2017 2:02 PM
== END | disposition home or self-care (01) ==
LOC: C.ULTRBC 12:05
PROVIDERS: ATTEND Family Medicine
DX: M79.89 Other specified soft tissue disorders (principal); I77.0 Arteriovenous fistula, acquired; R60.0 Localized edema

== ENCOUNTER 2017-04-18 13:13 | Inpatient (IN) | payer MEDICARE, OTHER ==
[2017-04-18] VITALS (13 sets, daily range): BP systolic 143–176; BP diastolic 56–77; PULSE 62–70; TEMP 36.4–36.9; O2SAT 90–96; Ht 185.4 cm; Wt 100.9 kg
[~2017-04-18] VITALS: Ht 185.4 cm; Wt 100.9 kg
[~2017-04-18 13:13] MED LIST changes: +B-CO1CAP17 PO; +CALC500C3 PO; +CALC667C4 PO; +DOCU100C31 PO; -EPGI10M SC
--- NOTE | 2017-04-18 13:23 | EMERGENCY ROOM VISIT NOTE ---
History Report prepared by Crys: Lucian Lugo Under the Supervision of: Dr. Bernie Vega D.O. First contact with patient: 13:21 Chief Complaint: RECTAL BLEEDING Stated Complaint: BLEEDING INTERNALLY History of Present Illness The patient is a 76 year old male who presents to the Emergency Room with complaints of persistent rectal bleeding that started over the past week. He says that he had an endoscopy last Saturday, and had a polyp removed. The patient states that he has been bleeding since then, and was told he lost a lot of blood over at dialysis. He notes that he goes to dialysis on Saturday, , and Saturdays. The patient says that his HBG has dropped. He says that he has been having arm and leg pain from the loss of blood. The patient adds that he has recently picked up a cold, and feels a bit short of breath on exertion and tired. He denies any fevers. The patient says that his stool have been noted to be black. He states that he has been getting dizzy and lightheaded when standing up, and he has been having minor chest pain on exertion. He denies any loss of consciousness, abdominal pain, or coughing up or vomiting blood. The patient says that he is not on any blood thinners. Source of History: patient Onset: Over past week Position: other (global - rectal bleeding) Quality: other (black stools) Timing: other (persistent) Associated Symptoms: + chest pain, + SOB, No LOC, No fevers, No cough (any blood), No vomiting (any blood), No abdominal pain Note: Associated symptoms: Dizzy/lightheaded upon standing. Arm and leg pain. Review of Systems See HPI for pertinent positives & negatives. A total of 10 systems reviewed and were otherwise negative. Past Medical & Surgical Medical Problems: (1) Anemia (2) Asthma (3) Chronic Kidney Disease, Unspecified (4) COPD exacerbation (5) Diab Cheryl Wo Compl, Type Ii Or Unspec Type, Not Uncntrld (6) Diabetes (7) End-stage renal disease on hemodialysis (8) Epistaxis (9) Esophageal Reflux (10) GI bleed (11) Heart disease (12) Hypertension (13) Hypertension Nos (14) Secondary hyperparathyroidism of renal origin Family History Diabetes mellitus Hypertension Kidney disease Kidney stones Social History Smoking Status: Former Smoker Alcohol Use: none Drug Use: none Marital Status: Housing Status: lives with significant other Occupation Status: retired Current/Historical Medications Scheduled Amlodipine Besylate (Amlodipine Besylate), 10 MG PO DAILY Aspirin (Aspirin Ec), 81 MG PO QAM Calcium Acetate (Phoslo 667 Mg), 1,334 MG PO AC Calcium Carbonate (Tums), 500 MG PO AC Cholecalciferol (Vitamin D3), 1,000 INTER.UNIT PO QAM Cyanocobalamin (Vitamin B12), 1,000 MCG PO QAM Docusate Sodium (Docusate Sodium), 100 MG PO QAM Escitalopram Oxalate (Lexapro), 5 MG PO DAILY Furosemide (Furosemide), 80 MG PO BID Hydralazine HCl (Hydralazine HCl), 50 MG PO TID Insulin Aspart (Novolog), 1 DOSE SC ACHS Insulin Detemir (Levemir), 45 UNITS SC QPM Insulin Detemir (Levemir), 50 UNITS SC QAM Ipratropium [place] (Atrovent Hfa), 2 PUFFS INH Q6H Labetalol HCl (Labetalol HCl), 300 MG PO BID Levalbuterol Tartrate (Levalbuterol Tartrate Hfa), 2 PUFFS INH Q6H Levothyroxine Sodium (Levothyroxine Sodium), 25 MCG PO 2XWK Levothyroxine Sodium (Levothyroxine Sodium), 200 MCG PO QAM Lisinopril (Lisinopril), 40 MG PO DAILY Omeprazole (Prilosec), 40 MG PO QAM Rosuvastatin Calcium (Rosuvastatin Calcium), 20 MG PO QPM Sucralfate (Sucralfate), 1 GM PO ACHS Tamsulosin HCl (Tamsulosin HCl), 0.4 MG PO QAM Vitamin B Cmplx/Vitc/Folic Ac (Nephrocaps), 1 CAP PO DAILY AT LUNCH Allergies Coded Allergies: Metformin (Verified Adverse Reaction, Intermediate, CONFUSION, 04/18/17) Physical Exam Vital Signs Date Time Temp Pulse Resp B/P (MAP) Pulse Ox O2 Delivery O2 Flow Rate FiO2 04/18/17 15:19 62 04/18/17 14:45 36.6 61 16 136/47 94 Room Air 04/18/17 13:17 36.8 103 17 148/62 92 Room Air Physical Exam GENERAL: alert, well appearing, well nourished, no distress, non-toxic EYE EXAM: normal conjunctiva, PERRL and EOM's grossly intact OROPHARYNX: no exudate, no erythema, lips, buccal mucosa, and tongue normal and mucous membranes are moist NECK: supple, no nuchal rigidity, no adenopathy, non-tender LUNGS: Clear to auscultation. Normal chest wall mechanics HEART: no murmurs, S1 normal and S2 normal ABDOMEN: abdomen soft, non-tender, normo-active bowel sounds, no masses, no rebound or guarding. RECTAL: Guaiac positive stool, melena noted. No obvious hemorrhoids, no anal fissures, no bright red blood. BACK: Back is symmetrical on inspection and there is no deformity, no midline tenderness, no CVA tenderness. SKIN: no rashes and no bruising UPPER EXTREMITIES: upper extremities are grossly normal. LOWER EXTREMITIES: No pitting edema. NEURO EXAM: Normal sensorium, cranial nerves II-XII grossly intact, normal speech, no gross weakness of arms, no gross weakness of legs. Medical Decision & Procedures ER Provider Diagnostic Interpretation: Radiology results have been interpreted by the radiologist and reviewed by me. CHEST ONE VIEW PORTABLE HISTORY: 76 years-old Male sob, cp acute shortness of breath with chest pain COMPARISON: Chest radiograph 01/14/2017 TECHNIQUE: Portable upright AP view of the chest FINDINGS: Cardiac silhouette is moderately enlarged, unchanged. There is pulmonary vascular congestion without overt pulmonary edema. Hazy bibasilar and linear left midlung opacities are noted in addition to a small left pleural effusion. The bones appear grossly intact. There are degenerative changes of the shoulders and spine. Atherosclerosis of the aorta. IMPRESSION: 1. Moderate cardiomegaly and pulmonary vascular congestion without overt pulmonary edema. 2. Small left pleural effusion with linear left midlung and bibasilar opacities suggesting atelectasis. The above report was generated using voice recognition software. It may contain grammatical, syntax or spelling errors. Electronically signed by: Jaycob Ag M.D. 04/18/2017 2:35 PM Dictated Date/Time: 04/18/2017 2:29 PM Laboratory Results Test 04/18/17 13:45 04/18/17 14:44 Immature Granulocyte % (Auto) 0.2 % White Blood Count 4.46 K/uL (4.8-10.8) Red Blood Count 2.63 M/uL (4.7-6.1) Hemoglobin 7.9 g/dL (14.0-18.0) Hematocrit 25.3 % (42-52) Mean Corpuscular Volume 96.2 fL (80-100) Mean Corpuscular Hemoglobin 30.0 pg (25-34) Mean Corpuscular Hemoglobin Concent 31.2 g/dl (32-36) Platelet Count 155 K/uL (130-400) Mean Platelet Volume 10.5 fL (7.4-10.4) Neutrophils (%) (Auto) 70.2 % Lymphocytes (%) (Auto) 16.1 % Monocytes (%) (Auto) 9.2 % Eosinophils (%) (Auto) 3.6 % Basophils (%) (Auto) 0.7 % Neutrophils # (Auto) 3.13 K/uL (1.4-6.5) Lymphocytes # (Auto) 0.72 K/uL (1.2-3.4) Monocytes # (Auto) 0.41 K/uL (0.11-0.59) Eosinophils # (Auto) 0.16 K/uL (0-0.5) Basophils # (Auto) 0.03 K/uL (0-0.2) Immature Granulocyte # (Auto) 0.01 K/uL (0.00-0.02) Red Blood Cell Morphology Unremarkable Phosphorus Level 1.8 mg/dl (2.5-4.9) Magnesium Level 2.0 mg/dl (1.8-2.4) Total Bilirubin 0.3 mg/dl (0.2-1) Aspartate Amino Transf (AST/SGOT) 19 U/L (15-37) Alanine Aminotransferase (ALT/SGPT) 24 U/L (12-78) Alkaline Phosphatase 80 U/L (45-117) Troponin I 0.030 ng/ml (0-0.045) Total Protein 5.7 gm/dl (6.4-8.2) Albumin 2.9 gm/dl (3.4-5.0) Globulin 2.8 gm/dl (2.5-4.0) Albumin/Globulin Ratio 1.0 (0.9-2) Prothrombin Time 10.9 SECONDS (9.0-12.0) Prothromb Time International Ratio 1.0 (0.9-1.1) Laboratory results per my review. Medications Administered Medications (Trade) Dose Ordered Sig/Unique Route Start Time Stop Time Status Last Admin Dose Admin Sodium Chloride 1,000 ml @ 100 mls/hr Q10H IV 04/18/17 15:12 04/19/17 09:19 DC 04/19/17 01:26 100 MLS/HR ECG Indication: other (GI bleed) Rate (beats per minute): 71 Rhythm: sinus rhythm Findings: RBBB, other (normal axis) Change: no significant change (from 01/15/17) ED Course 1324: The patient was evaluated in room C9. A complete history and physical exam was performed. 1334: Review of EMR showed that 2 days ago, the patient's hemoglobin was 8.4. 1449: Upon reevaluation, the patient signed the blood consent form. I discussed the findings and the treatment plan with the patient. She expresses agreement and understanding. She will be evaluated for further management. 1500: I reviewed the patient's case with Dr. Kay BRIDGES lining cleaner. He will evaluate the patient for further management. Medical Decision Differential diagnosis: Etiologies such as diverticulosis, AVM, coagulopathy, colitis, inflammatory bowel disease, malignancy, Caroline-Grande tear, esophagitis, peptic ulcer disease , variceal bleed, gastritis, epistaxis, fissure, hemorrhoids, as well as others were entertained. Patient with some mild chronic anemia secondary to kidney disease, patient on dialysis and no recent issues. After having EGD done last week patient has been having persistent rectal bleeding. Patient noted to have lower H&H here, and was symptomatic with any sort of exertion including chest pain or trouble breathing. Patient otherwise hemodynamically stable. Admitted for careful monitoring and blood transfusion. Blood consent reviewed with the patient at bedside and signed in the emergency room. No current chest pain or trouble breathing while at rest. Doubt additional occult infectious process. Blood Pressure Screening Patient's blood pressure: Elevated blood pressure Blood pressure disposition: Elevated BP felt to be situational Consults Time Called: 1450 Consulting Physician: Dr. Kay BRIDGES lining cleaner Returned Call: 1500 I reviewed the patient's case with Dr. Kay BRIDGES lining cleaner. He will evaluate the patient for further management. Impression Primary Impression: GI bleed Additional Impressions: Anemia CKD (chronic kidney disease) Critical Care I have personally spent greater than 35 minutes of critical care time in the direct management of this patient. This includes bedside care, interpretation of diagnostic studies, and testing, discussion with consultants, patient, and family members, and other required patient management activities. This 35 minutes is in excess of all separately billable procedures. Scribe Attestation The scribe's documentation has been prepared under my direction and personally reviewed by me in its entirety. I confirm that the note above accurately reflects all work, treatment, procedures, and medical decision making performed by me. Departure Information Dispostion Being Evaluated By Hospitalist Mahsa Johnson DO (PCP) Patient Instructions My [facility] Problem Qualifiers Primary Impression: GI bleed GI bleed type/associated pathology: unspecified gastrointestinal hemorrhage type Qualified Codes: K92.2 - Gastrointestinal hemorrhage, unspecified Additional Impressions: Anemia Anemia type: unspecified type Qualified Codes: D64.9 - Anemia, unspecified CKD (chronic kidney disease) Chronic kidney disease stage: on chronic dialysis Qualified Codes: N18.6 - End stage renal disease; Z99.2 - Dependence on renal dialysis
[2017-04-18 14:04] LABS: BASO % 0.7 %; BASO ABS # 0.03 K/uL (0-0.2); EOS % 3.6 %; HEMATOCRIT 25.3 % (42-52); IG% 0.2 %; LYMPH % 16.1 %; LYMPH ABS # 0.72 K/uL (1.2-3.4); MEAN CELL VOLUME 96.2 fL (80-100); MEAN CORPUSCULAR HGB CONC 31.2 g/dl (32-36); MEAN PLATELET VOLUME 10.5 fL (7.4-10.4); MONO % 9.2 %; NEUT % 70.2 %; PLATELET COUNT 155 K/uL (130-400); RED BLOOD COUNT 2.63 M/uL (4.7-6.1); WHITE BLOOD COUNT 4.46 K/uL (4.8-10.8)
[2017-04-18 14:22] LABS: BUN/CREATININE RATIO 7.4 (10-20); CALCIUM 8.2 mg/dl (8.5-10.1); CREATININE 3.6 mg/dl (0.60-1.40); POTASSIUM 3.7 mmol/L (3.5-5.1)
[2017-04-18 14:26] LABS: PHOSPHORUS 1.8 mg/dl (2.5-4.9)
--- NOTE | 2017-04-18 14:36 | DIAGNOSTIC IMAGING REPORT ---
CHEST ONE VIEW PORTABLE HISTORY: 76 years-old Male sob, cp acute shortness of breath with chest pain COMPARISON: Chest radiograph 01/14/2017 TECHNIQUE: Portable upright AP view of the chest FINDINGS: Cardiac silhouette is moderately enlarged, unchanged. There is pulmonary vascular congestion without overt pulmonary edema. Hazy bibasilar and linear left midlung opacities are noted in addition to a small left pleural effusion. The bones appear grossly intact. There are degenerative changes of the shoulders and spine. Atherosclerosis of the aorta. IMPRESSION: 1. Moderate cardiomegaly and pulmonary vascular congestion without overt pulmonary edema. 2. Small left pleural effusion with linear left midlung and bibasilar opacities suggesting atelectasis. The above report was generated using voice recognition software. It may contain grammatical, syntax or spelling errors. Electronically signed by: Jaycob Ag M.D. 04/18/2017 2:35 PM Dictated Date/Time: 04/18/2017 2:29 PM
[2017-04-18] MEDS ORDERED: NRV/10 PO (14:47)
[2017-04-18 14:49] LABS: COMPLETE YES
[2017-04-18] MEDS ORDERED: ESCI1TAB6 PO (14:53)
[2017-04-18 15:00] LABS: PROTHROMBIN TIME (PATIENT) 10.9 SECONDS (9.0-12.0)
[2017-04-18] MEDS ORDERED: ONDANSETRON INJ 2 MG/ML 2 ML VIAL IV PRN (15:15)
[2017-04-18] MEDS ORDERED: ACETAMINOPHEN 325 MG TAB PO PRN (15:15)
[2017-04-18] MEDS ORDERED: NITROGLYCERIN 0.4 MG SL PER TAB CHARGE SL PRN (15:15)
[2017-04-18] MEDS ORDERED: HydrALAZINE HCL 20 MG/ML VIAL IV PRN (15:15)
--- NOTE | 2017-04-18 15:53 | History and Physical ---
History & Physical Date & Time of Service: Apr 18, 2017 at 15:45 Chief Complaint: Bleeding Internally Primary Care Physician: Mahsa Wang, History of Present Illness Patient presents after having almost a week's worth of melena. The patient has recently had an EGD by Dr. Sullivan on 04/10 which showed Gallagher's esophagus gastric angiodysplasia and duodenal polyps of which one was biopsied. The patient has no significant abdominal pain however he notes intermittent dyspnea on exertion heaviness or pain in his arms and legs no defined chest pain. Patient has a history of chronic anemia given his end-stage renal disease and has received transfusions in the past but none for last few weeks. That in fact was the reason they pursued endoscopy as well as his history of a tubular adenoma in a duodenal polyp. The patient is hemodynamically stable at the present time he typically takes multiple antihypertensives he did also receive hemodialysis today typically following with Dr. Briceno. Past Medical/Surgical History Medical Problems: (1) Asthma Status: Chronic (2) Diabetes Status: Chronic (3) Epistaxis Status: Chronic (4) Heart disease Status: Chronic (5) Hypertension Status: Chronic Family History Diabetes mellitus Hypertension Kidney disease Kidney stones Social History Smoking Status: Former Smoker Drug Use: none Marital Status: Housing status: lives with family Occupational Status: retired Immunizations History of Influenza Vaccine: Unknown History of Tetanus Vaccine?: unknown History of Pneumococcal: Yes Pneumococcal Date: Dec 19, 2007 History of Hepatitis B Vaccine: Unknown Multi-Drug Resistant Organisms History of MDRO: No Allergies Coded Allergies: Metformin (Verified Adverse Reaction, Intermediate, CONFUSION, 04/18/17) Home Medications Scheduled Amlodipine Besylate (Amlodipine Besylate), 10 MG PO DAILY Aspirin (Aspirin Ec), 81 MG PO QAM Calcium Acetate (Phoslo 667 Mg), 1,334 MG PO AC Calcium Carbonate (Tums), 500 MG PO AC Cholecalciferol (Vitamin D3), 1,000 INTER.UNIT PO QAM Cyanocobalamin (Vitamin B12), 1,000 MCG PO QAM Docusate Sodium (Docusate Sodium), 100 MG PO QAM Escitalopram Oxalate (Lexapro), 5 MG PO DAILY Furosemide (Furosemide), 80 MG PO BID Hydralazine HCl (Hydralazine HCl), 50 MG PO TID Insulin Aspart (Novolog), 1 DOSE SC ACHS Insulin Detemir (Levemir), 45 UNITS SC QPM Insulin Detemir (Levemir), 50 UNITS SC QAM Ipratropium [place] (Atrovent Hfa), 2 PUFFS INH Q6H Labetalol HCl (Labetalol HCl), 300 MG PO BID Levalbuterol Tartrate (Levalbuterol Tartrate Hfa), 2 PUFFS INH Q6H Levothyroxine Sodium (Levothyroxine Sodium), 25 MCG PO 2XWK Levothyroxine Sodium (Levothyroxine Sodium), 200 MCG PO QAM Lisinopril (Lisinopril), 40 MG PO DAILY Omeprazole (Prilosec), 40 MG PO QAM Rosuvastatin Calcium (Rosuvastatin Calcium), 20 MG PO QPM Sucralfate (Sucralfate), 1 GM PO ACHS Tamsulosin HCl (Tamsulosin HCl), 0.4 MG PO QAM Vitamin B Cmplx/Vitc/Folic Ac (Nephrocaps), 1 CAP PO DAILY AT LUNCH Review of Systems ROS: well nourished well developed No double vision blurry vision No problems with speech or swallowing No palpitations, chest pain or pressure No Wheezing although having COPD he feels he is having more dyspnea on exertion but no orthopnea or PND No abdominal pain nausea vomiting diarrhea he has had persistent dark bowel movements for last 1 week No burning urine urine frequency or changes in color He has had focal arm and leg pain with exertion and he has some swelling of his legs No skin rashes or oral lesions No unusual bruising with the melena has been persistent No focused back pain or numbness or loss of strength No changes in memory or confusion Physical Exam Vital Signs Date Time Temp Pulse Resp B/P (MAP) Pulse Ox O2 Delivery O2 Flow Rate FiO2 04/18/17 15:20 36.8 62 18 158/63 91 04/18/17 15:19 62 04/18/17 14:45 36.6 61 16 136/47 94 Room Air 04/18/17 13:17 36.8 103 17 148/62 92 Room Air General Appearance: WD/WN, + mild distress Head: normocephalic, atraumatic Eyes: PERRL, EOMI Neck: no adenopathy Respiratory/Chest: chest non-tender, lungs clear, normal breath sounds Cardiovascular: regular rate, rhythm, no murmur Abdomen/GI: normal bowel sounds, non tender, soft Back: no CVA tenderness, normal range of motion Extremities/Musculoskelatal: normal range of motion, + pedal edema, + swelling Neurologic/Psych: alert, oriented x 3 Skin: normal color, warm/dry, no rash Diagnostics Laboratory Results Results Past 24 Hours Test 04/18/17 13:45 04/18/17 14:44 Range/Units White Blood Count 4.46 4.8-10.8 K/uL Red Blood Count 2.63 4.7-6.1 M/uL Hemoglobin 7.9 14.0-18.0 g/dL Hematocrit 25.3 42-52 % Mean Corpuscular Volume 96.2 80-100 fL Mean Corpuscular Hemoglobin 30.0 25-34 pg Mean Corpuscular Hemoglobin Concent 31.2 32-36 g/dl Platelet Count 155 130-400 K/uL Mean Platelet Volume 10.5 7.4-10.4 fL Neutrophils (%) (Auto) 70.2 % Lymphocytes (%) (Auto) 16.1 % Monocytes (%) (Auto) 9.2 % Eosinophils (%) (Auto) 3.6 % Basophils (%) (Auto) 0.7 % Neutrophils # (Auto) 3.13 1.4-6.5 K/uL Lymphocytes # (Auto) 0.72 1.2-3.4 K/uL Monocytes # (Auto) 0.41 0.11-0.59 K/uL Eosinophils # (Auto) 0.16 0-0.5 K/uL Basophils # (Auto) 0.03 0-0.2 K/uL RDW Standard Deviation 57.3 36.4-46.3 fL RDW Coefficient of Variation 16.3 11.5-14.5 % Immature Granulocyte % (Auto) 0.2 % Immature Granulocyte # (Auto) 0.01 0.00-0.02 K/uL Red Blood Cell Morphology Unremarkable Sodium Level 138 136-145 mmol/L Potassium Level 3.7 3.5-5.1 mmol/L Chloride Level 99 98-107 mmol/L Carbon Dioxide Level 34 21-32 mmol/L Anion Gap 6.0 3-11 mmol/L Blood Urea Nitrogen 27 7-18 mg/dl Creatinine 3.60 0.60-1.40 mg/dl Est Creatinine Clear Calc Drug Dose 22.4 ml/min Estimated GFR () 18.2 Estimated GFR (Non- 15.7 BUN/Creatinine Ratio 7.4 10-20 Random Glucose 207 70-99 mg/dl Calcium Level 8.2 8.5-10.1 mg/dl Phosphorus Level 1.8 2.5-4.9 mg/dl Magnesium Level 2.0 1.8-2.4 mg/dl Total Bilirubin 0.3 0.2-1 mg/dl Aspartate Amino Transf (AST/SGOT) 19 15-37 U/L Alanine Aminotransferase (ALT/SGPT) 24 12-78 U/L Alkaline Phosphatase 80 45-117 U/L Troponin I 0.030 0-0.045 ng/ml Total Protein 5.7 6.4-8.2 gm/dl Albumin 2.9 3.4-5.0 gm/dl Globulin 2.8 2.5-4.0 gm/dl Albumin/Globulin Ratio 1.0 0.9-2 Prothrombin Time 10.9 9.0-12.0 SECONDS Prothromb Time International Ratio 1.0 0.9-1.1 CXR normal other (lateral ecg changes and large voltages that are old) Impression Assessment and Plan 76-year-old male with persistent melena and recent upper endoscopy with polypectomy GI medicine, Protonix be continued IV push patiently on clear liquid diet nothing by mouth after midnight, GI medicine was contacted and are considering doing an endoscopy on 04/19. The patient has ordered 2 units packed red blood cells in the ER and they aren't using currently Acute on chronic anemia, difficult to tell given the variability of his hemoglobin over the last few weeks certainly he's having exertional symptoms currently and transfusion is warranted he likely also has component of anemia of chronic disease given his chronic renal failure End-stage renal disease on hemodialysis, Dr. Briceno will be following him for inpatient dialysis if required Chronic hypertension, by the medications he takes is likely been difficult to control we'll continue his DEMETRIS inhibitor we will hold his hydralazine and use when necessary we will reduce his labetalol by 50%. Insulin requiring type 2 diabetes, the patient will have one half of his usual Levemir dose and have insulin sliding scale in place of his traditional set amount with meals he'll be on a liquid type II diabetic diet preprocedure COPD currently not active we'll maintain his inhaled medications he feels his shortness of breath is purely dyspneic and said no shortness of breath at other times DVT prevention is based upon Mechanical means given the possibility of a GI bleed VTE Prophylaxis VTE Risk Assessment Done? Y/N: Yes Risk Level: Moderate
[2017-04-18] MEDS ORDERED: GLUCOSE 40% GEL 15 GM TUBE PO PRN (16:45)
[2017-04-18] MEDS ORDERED: DEXTROSE 50% 50 ML SYR IV PRN (16:45)
[2017-04-18] MEDS ORDERED: GLUCOSE 10 TABS/TUBE PO PRN (16:45)
[2017-04-18] MEDS ORDERED: GLUCAGON FOR INJ 1 MG VIAL SQ PRN (16:45)
[2017-04-18] MEDS: INSULIN ASPART 100 UNITS/ML 3 ML PEN SC SCH ×2 (17:23→20:44)
[2017-04-18] MEDS: CALCIUM CARBONATE 500 MG CHEWABLE PO SCH (17:23)
[2017-04-18] MEDS: CALCIUM ACETATE 667MG GELCAP PO SCH (17:23)
--- NOTE | 2017-04-18 17:24 | Nephrology Consultation ---
Nephrology Consultation Date & Providers Date of Consultation: Apr 18, 2017. Primary Care Provider: Mahsa Wang DO Referring Provider: Reason for Consultation Assist w/ medical management and provide inpatient HD for this patient w/ ESRD on HD History of Present Illness Mr. Mcintyre is seen at the request of Dr. Villanueva to assist w/ medical management and provide inpatient HD. Medical records in the hospital EMR were reviewed and are summarized as follows: Mr. Mcintyre has ESRD due to diabetic nephropathy and hypertensive nephrosclerosis. He dialyzes TTS at the [facility] dialysis unit (Dr. Briceno). He was dialyzed this morning without complication. Mr. Mcintyre has had recurrent iron deficiency anemia. On 04/10 he underwent EGD by Dr. Sullivan. The distal third of the esophagus had Gallagher' s changes. The stomach had angiodysplasia and several gastric polyps. One polyp was biopsied. Histology was c/w an adenoma. Over the last several days Mr. Mcintyre has had melena. Following his dialysis this morning he presented to the ED for evaluation. Hgb was 7.9. Patient was admitted for blood transfusion, monitoring for ongoing GI blood loss and follow up EGD in am. Nephrology consultation has been requested to provide inpatient HD. Past Medical/Surgical History Medical: # Asthma/COPD # Diabetes mellitus # ESRD # CAD # HTN # Chronic liver disease # Colon polyps # Internal hemorrhoids Surgical: # L radiocephalic AVF Allergies Coded Allergies: Metformin (Verified Adverse Reaction, Intermediate, CONFUSION, 04/18/17) Inpatient Medications Current Inpatient Medications Medications (Trade) Dose Ordered Sig/Unique Route Start Time Stop Time Status Last Admin Dose Admin Sodium Chloride 1,000 ml @ 100 mls/hr Q10H IV 04/18/17 15:12 05/18/17 15:11 Acetaminophen (Tylenol Tab) 650 mg Q4H PRN PO 04/18/17 15:15 05/18/17 15:14 Ondansetron HCl (Zofran Inj) 4 mg Q6H PRN IV 04/18/17 15:15 05/18/17 15:14 Nitroglycerin (Nitrostat Tab) 0.4 mg UD PRN SL 04/18/17 15:15 05/18/17 15:14 Calcium Acetate (Phoslo Cap) 1,334 mg AC PO 04/18/17 16:00 05/18/17 15:59 Calcium Carbonate (Tums Chew Tab) 500 mg AC PO 04/18/17 16:00 05/18/17 15:59 Cholecalciferol (Vitamin D Tab) 1,000 inter.unit QAM PO 04/19/17 09:00 05/19/17 08:59 Escitalopram Oxalate (Lexapro Tab) 5 mg DAILY PO 04/19/17 09:00 05/19/17 08:59 Ipratropium [place] (Atrovent Hfa Inhaler) 2 puffs Q6H INH 04/18/17 18:00 05/18/17 17:59 Levalbuterol (Xopenex Hfa Inhaler) 2 puffs Q6H INH 04/18/17 18:00 05/18/17 17:59 Levothyroxine Sodium (Synthroid Tab) 200 mcg DAILYBB PO 04/19/17 06:00 05/19/17 05:59 Lisinopril (Zestril Tab) 40 mg DAILY PO 04/19/17 09:00 05/19/17 08:59 Tamsulosin HCl (Flomax Cap) 0.4 mg QAM PO 04/19/17 09:00 05/19/17 08:59 Insulin Detemir (Levemir Flexpen/ FlexTouch) 25 units BID SC 04/18/17 21:00 05/18/17 20:59 Insulin Aspart (novoLOG ASPART) SLIDING SCALE PARAMETER ACHS SC 04/18/17 16:00 05/18/17 15:59 Labetalol HCl (Normodyne Tab) 150 mg BID PO 04/18/17 21:00 05/18/17 20:59 Hydralazine HCl (HydrALAZINE INJ) 10 mg Q4H PRN IV 04/18/17 15:15 05/18/17 15:14 Pantoprazole Sodium 40 mg/ Syringe 10 ml @ 5 mls/min DAILY@ IV 04/18/17 21:00 05/18/17 20:59 Glucose (Glucose 40% Gel) 15-30 GRAMS 15 GRAMS... UD PRN PO 04/18/17 16:45 05/18/17 16:44 Glucose (Glucose Chew Tab) 4-8 Tablets 4 Tabl... UD PRN PO 04/18/17 16:45 05/18/17 16:44 Dextrose (Dextrose 50% 50ML Syringe) 25-50ML OF 50% DW IV FOR... UD PRN IV 04/18/17 16:45 05/18/17 16:44 Glucagon (Glucagon Inj) 1 mg UD PRN SQ 04/18/17 16:45 05/18/17 16:44 Family History Diabetes mellitus Hypertension Kidney disease Kidney stones Negative for CKD/ESRD Social History Smoking Status: Former Smoker Drug Use: none Marital Status: Housing Status: lives with family 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 Review of Systems Constitutional: No fever Respiratory: No cough, No shortness of breath Cardiovascular: No chest pain Abdomen: No pain, No nausea, No vomiting A complete review of systems was performed. Pertinent positives are noted above. All other systems are negative. Physical Exam Date Time Temp Pulse Resp B/P (MAP) Pulse Ox O2 Delivery O2 Flow Rate FiO2 04/18/17 16:50 63 20 168/72 93 04/18/17 16:41 36.9 65 18 161/57 91 Room Air 04/18/17 16:00 36.9 64 16 151/74 94 04/18/17 15:45 36.9 64 16 154/64 95 04/18/17 15:30 36.9 64 16 143/77 94 04/18/17 15:20 36.8 62 18 158/63 91 04/18/17 15:19 62 04/18/17 14:45 36.6 61 16 136/47 94 Room Air 04/18/17 13:17 36.8 103 17 148/62 92 Room Air General Appearance: no apparent distress Head: normocephalic, atraumatic Eyes: PERRL, EOMI Neck: no adenopathy Respiratory/Chest: lungs clear Cardiovascular: regular rate, rhythm Abdomen/GI: normal bowel sounds, non tender, soft Extremities/Musculoskelatal: no calf tenderness, no pedal edema, + pertinent finding (AVF + bruit) Neurologic/Psych: alert, oriented x 3 Laboratory Results Last 24 Hours Test 04/18/17 13:45 04/18/17 14:44 04/18/17 16:16 White Blood Count 4.46 K/uL Red Blood Count 2.63 M/uL Hemoglobin 7.9 g/dL Hematocrit 25.3 % Mean Corpuscular Volume 96.2 fL Mean Corpuscular Hemoglobin 30.0 pg Mean Corpuscular Hemoglobin Concent 31.2 g/dl Platelet Count 155 K/uL Mean Platelet Volume 10.5 fL Neutrophils (%) (Auto) 70.2 % Lymphocytes (%) (Auto) 16.1 % Monocytes (%) (Auto) 9.2 % Eosinophils (%) (Auto) 3.6 % Basophils (%) (Auto) 0.7 % Neutrophils # (Auto) 3.13 K/uL Lymphocytes # (Auto) 0.72 K/uL Monocytes # (Auto) 0.41 K/uL Eosinophils # (Auto) 0.16 K/uL Basophils # (Auto) 0.03 K/uL RDW Standard Deviation 57.3 fL RDW Coefficient of Variation 16.3 % Immature Granulocyte % (Auto) 0.2 % Immature Granulocyte # (Auto) 0.01 K/uL Red Blood Cell Morphology Unremarkable Sodium Level 138 mmol/L Potassium Level 3.7 mmol/L Chloride Level 99 mmol/L Carbon Dioxide Level 34 mmol/L Anion Gap 6.0 mmol/L Blood Urea Nitrogen 27 mg/dl Creatinine 3.60 mg/dl Est Creatinine Clear Calc Drug Dose 22.4 ml/min Estimated GFR () 18.2 Estimated GFR (Non- 15.7 BUN/Creatinine Ratio 7.4 Random Glucose 207 mg/dl Calcium Level 8.2 mg/dl Phosphorus Level 1.8 mg/dl Magnesium Level 2.0 mg/dl Total Bilirubin 0.3 mg/dl Aspartate Amino Transf (AST/SGOT) 19 U/L Alanine Aminotransferase (ALT/SGPT) 24 U/L Alkaline Phosphatase 80 U/L Troponin I 0.030 ng/ml Total Protein 5.7 gm/dl Albumin 2.9 gm/dl Globulin 2.8 gm/dl Albumin/Globulin Ratio 1.0 Prothrombin Time 10.9 SECONDS Prothromb Time International Ratio 1.0 Bedside Glucose 204 mg/dl Impression (1) End-stage renal disease on hemodialysis (2) GI bleed (3) Anemia (4) Hypertension (5) Diabetes Recommendations END STAGE RENAL DISEASE: -- Patient was dialyzed this morning. Volume status & electrolyte balance are acceptable. No acute indication for HD tonight -- Will recheck PRP in am -- Protect L arm AVF ANEMIA: -- Agree w/ 2 U PRBC tonight -- Agree w/ PPI gtt -- Await GI evaluation HYPERTENSION: -- Hold bp meds for SBP < 100 mm HG
[2017-04-18] MEDS: IPRATROPIUM BROMIDE HFA INHALER INH SCH ×2 (17:25→22:17)
[2017-04-18] MEDS: LEValbuterol HFA 15GM INHALER INH SCH ×2 (17:26→22:17)
[2017-04-18] MEDS: LABETALOL HCL 100 MG TAB PO SCH (19:22)
[2017-04-18] MEDS: PANTOprazole INJ 40 MG in SYRINGE 0 ML IV SCH (20:34)
[2017-04-18] MEDS: SODIUM CHLORIDE 0.9% 1000ML 1,000 ML IV SCH (20:40)
[2017-04-18] MEDS: INSULIN DETEMIR FLEXPEN/FLEX TOUCH 100 UNITS/ML 3ML SC SCH (20:57)
[2017-04-18] MEDS ORDERED: LABETALOL HCL 100 MG TAB PO SCH (21:00)
[2017-04-19] MEDS: SODIUM CHLORIDE 0.9% 1000ML 1,000 ML IV SCH (01:26)
[2017-04-19 03:08] VITALS: BP 171/71; PULSE 69; TEMP 36.8; O2SAT 84
[2017-04-19 05:08] LABS: HEMATOCRIT 28.9 % (42-52); MEAN CELL VOLUME 94.1 fL (80-100); MEAN CORPUSCULAR HGB CONC 30.8 g/dl (32-36); MEAN PLATELET VOLUME 10.3 fL (7.4-10.4); PLATELET COUNT 151 K/uL (130-400); RED BLOOD COUNT 3.07 M/uL (4.7-6.1); WHITE BLOOD COUNT 3.82 K/uL (4.8-10.8)
[2017-04-19 05:33] LABS: BUN/CREATININE RATIO 8.5 (10-20); CALCIUM 8.4 mg/dl (8.5-10.1); CREATININE 4.46 mg/dl (0.60-1.40); POTASSIUM 3.6 mmol/L (3.5-5.1)
[2017-04-19] MEDS ORDERED: LEVOTHYROXINE 200 MCG TAB PO SCH (06:00)
[2017-04-19] MEDS: IPRATROPIUM BROMIDE HFA INHALER INH SCH (06:00)
[2017-04-19] MEDS: LEValbuterol HFA 15GM INHALER INH SCH (06:00)
[2017-04-19] MEDS ORDERED: LEVOTHYROXINE 25 MCG TAB PO SCH (06:00)
[2017-04-19] MEDS: CALCIUM CARBONATE 500 MG CHEWABLE PO SCH (07:00)
[2017-04-19] MEDS: CALCIUM ACETATE 667MG GELCAP PO SCH (07:00)
[2017-04-19] MEDS: INSULIN ASPART 100 UNITS/ML 3 ML PEN SC SCH (07:00)
[2017-04-19] MEDS: LABETALOL HCL 100 MG TAB PO SCH (07:22)
[2017-04-19] MEDS: INSULIN DETEMIR FLEXPEN/FLEX TOUCH 100 UNITS/ML 3ML SC SCH (07:26)
[2017-04-19] MEDS: PANTOprazole INJ 40 MG in SYRINGE 0 ML IV SCH (07:43)
[2017-04-19 07:49] VITALS: BP 169/67; PULSE 63; TEMP 36.7; O2SAT 95
[2017-04-19] MEDS ORDERED: LISINOPRIL 40 MG TAB PO SCH (09:00)
[2017-04-19] MEDS ORDERED: CHOLECALCIFEROL 1000 INTER.UNIT TAB PO SCH (09:00)
[2017-04-19] MEDS ORDERED: ESCITALOPRAM OXALATE 10 MG TAB PO SCH (09:00)
[2017-04-19] MEDS ORDERED: TAMSULOSIN HCL 0.4 MG CAP PO SCH (09:00)
--- NOTE | 2017-04-19 18:25 | Discharge Summary ---
Discharge Summary Date of Service Apr 19, 2017. Discharge Summary Admission Date: Apr 18, 2017 at 15:19 Discharge Date: Apr 19, 2017 Discharge Disposition: Home Principal Diagnosis: GI bleed, left AMA Immunizations: Have You Had Influenza Vaccine: Unknown History of Tetanus Vaccine?: unknown History of Pneumococcal: Yes Pneumococcal Date: Dec 19, 2007 History of Hepatitis B Vaccine: Unknown Hospital Course see H&P. pt admitted w GI bleeding, acute blood loss anemia requiring 2 units transfusion. was for endoscopic evaluation this afternoon. per nursing, this AM pt became adamant that he was leaving and would follow up as outpt. i was not able to come instantaneously, but was on the floor ~20mins after first notification by nursing, by that point pt had already left. had asked RN to review risks as well as "red flag" symptoms and encourage pt to return to hospital if any should occur. also asked saxophone teacher to attempt to contact pt and facilitate expedited outpt w/u. left AMA Total Time Spent: Less than 30 minutes This includes examination of the patient, discharge planning, medication reconciliation, and communication with other providers. Discharge Instructions Please refer to the electronic Patient Visit Report (Discharge Instructions) for additional information. Additional Copies To Jf Sullivan M.D.; Mahsa Wang DO
== END 2017-04-19 09:18 | disposition left against medical advice (07) | DRG 377 ==
LOC: C.EDB 13:15 → C.2T 15:19 → ENRESERV 15:29
PROVIDERS: ADMIT Internal Medicine; ATTEND Family Medicine
DX: K92.2 Gastrointestinal hemorrhage, unspecified (principal); N18.6 End stage renal disease; D62 Acute posthemorrhagic anemia; I13.11 Hypertensive heart and chronic kidney disease without heart failure, with stage 5 chronic kidney disease, or end stage renal disease; D63.1 Anemia in chronic kidney disease; E11.22 Type 2 diabetes mellitus with diabetic chronic kidney disease; E11.21 Type 2 diabetes mellitus with diabetic nephropathy; J45.909 Unspecified asthma, uncomplicated; J44.9 Chronic obstructive pulmonary disease, unspecified; K21.9 Gastro-esophageal reflux disease without esophagitis; I25.10 Atherosclerotic heart disease of native coronary artery without angina pectoris; Z79.899 Other long term (current) drug therapy; Z79.4 Long term (current) use of insulin; Z79.82 Long term (current) use of aspirin; Z99.2 Dependence on renal dialysis; Z86.010 Personal history of colon polyps; Z87.891 Personal history of nicotine dependence; Z83.3 Family history of diabetes mellitus; Z82.49 Family history of ischemic heart disease and other diseases of the circulatory system; Z84.1 Family history of disorders of kidney and ureter

== ENCOUNTER → 2017-05-22 | Outpatient (CLI) | payer MEDICARE, OTHER ==
[~2017-05-22] MED LIST changes: -AMLO2.5T PO; +ESCI1TAB6 PO; +NRV/10 PO
[2017-05-22 12:47] LABS: ESTIMATED AVERAGE GLUCOSE 117 mg/dl; HA1C FLAG Normal (Normal)
[2017-05-22 13:15] LABS: CHOLESTEROL/HDL RATIO 1.7
== END | disposition home or self-care (01) ==
LOC: C.LABPBG 09:29
PROVIDERS: ATTEND Family Medicine
DX: E11.8 Type 2 diabetes mellitus with unspecified complications (principal)

== ENCOUNTER 2017-06-06 09:17 | Inpatient (IN) | payer MEDICARE, OTHER ==
[2017-06-06] VITALS (15 sets, daily range): BP systolic 134–176; BP diastolic 49–78; PULSE 64–72; TEMP 36.4–36.9; O2SAT 94–100; Ht 182.9 cm; Wt 98.0 kg
[~2017-06-06] VITALS: Ht 182.9 cm; Wt 98.0 kg
[~2017-06-06 09:17] MED LIST changes: -ROSU20TA22 PO; +ROSU20TA33 PO
--- NOTE | 2017-06-06 10:02 | DIAGNOSTIC IMAGING REPORT ---
CHEST ONE VIEW PORTABLE CLINICAL HISTORY: EVALUATE GI BLEED COMPARISON STUDY: 04/18/2017 FINDINGS: Moderate stable cardiomegaly. Chronic parenchymal change left lung base. No acute infiltrate. Diaphragms smooth. IMPRESSION: Stable moderate cardiomegaly. Chronic parenchymal change left base. No acute process. The above report was generated using voice recognition software. It may contain grammatical, syntax or spelling errors. Electronically signed by: Osmany Marte M.D. 06/06/2017 10:01 AM Dictated Date/Time: 06/06/2017 10:00 AM
[2017-06-06] MEDS ORDERED: B-CO1CAP17 PO (10:28)
[2017-06-06 10:41] LABS: PTT PATIENT 24.9 SECONDS (21.0-31.0)
[2017-06-06 10:51] LABS: BLOOD UREA NITROGEN 39 mg/dl (7-18); CALCIUM 8.4 mg/dl (8.5-10.1); CARBON DIOXIDE 32 mmol/L (21-32); CREATININE 4.15 mg/dl (0.60-1.40); GLUCOSE 200 mg/dl (70-99); SODIUM 137 mmol/L (136-145)
[2017-06-06 10:58] LABS: HEMATOCRIT 19.5 % (42-52); HEMOGLOBIN 6.2 g/dL (14.0-18.0); MEAN CELL VOLUME 94.2 fL (80-100); MEAN CORPUSCULAR HGB CONC 31.8 g/dl (32-36); MEAN PLATELET VOLUME 10.3 fL (7.4-10.4); PLATELET COUNT 213 K/uL (130-400); RED CELL DISTRIBUTION WIDTH CV 15.5 % (11.5-14.5); RED CELL DISTRIBUTION WIDTH SD 53.3 fL (36.4-46.3); WHITE BLOOD COUNT 3.79 K/uL (4.8-10.8)
[2017-06-06 11:04] LABS: BASO % 0.5 %; BASO ABS # 0.02 K/uL (0-0.2); EOS % 2.4 %; EOS ABS # 0.09 K/uL (0-0.5); LYMPH % 21.9 %; LYMPH ABS # 0.83 K/uL (1.2-3.4); MONO % 9.5 %; MONO ABS # 0.36 K/uL (0.11-0.59); NEUT % 65.7 %; NEUT ABS # 2.49 K/uL (1.4-6.5)
[2017-06-06 11:06] LABS: ALKALINE PHOSPHATASE 84 U/L (45-117); ALT/SGPT 23 U/L (12-78); AST/SGOT 12 U/L (15-37); CKMB 3.4 ng/ml (0.5-3.6); TOTAL PROTEIN 6.3 gm/dl (6.4-8.2)
--- NOTE | 2017-06-06 11:51 | EMERGENCY ROOM VISIT NOTE ---
History Report prepared by Crys: Esdras Turcios Under the Supervision of: Dr. Jama Kay D.O. 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 The patient states that he was being treated for dialysis this morning when he suddenly became short of breath. He notes melena. He notes bilateral leg pain, finger numbness in both hands, and feet numbness. Per operations supervisor, the patient's hemoglobin is 6.6. The patient notes that his blood sugar was 540 last night, though he states he was able to lower it. The patient denies taking any iron supplements. Per operations supervisor , the patient has had to have iron transfusion in the past, though not recently. The patient has a history of DM, CAD, HTN, CKD, COPD, cholecystectomy , gastric polypectomy, and left arm fistula. Per operations supervisor, the patient has had stomach polyps removed April 10, 2017 and May 15, 2017. He denies any diarrhea or urinary symptoms. 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 Review of Systems See HPI for pertinent positives & negatives. A total of 10 systems reviewed and were otherwise negative. Past Medical & Surgical Medical Problems: (1) Anemia (2) Asthma (3) Chronic Kidney Disease, Unspecified (4) COPD exacerbation (5) Diab Cheryl Wo Compl, Type Ii Or Unspec Type, Not Uncntrld (6) Diabetes (7) End-stage renal disease on hemodialysis (8) Epistaxis (9) Esophageal Reflux (10) GI bleed (11) Heart disease (12) Hypertension (13) Hypertension Nos (14) Secondary hyperparathyroidism of renal origin Family History Diabetes mellitus Hypertension Kidney disease Kidney stones Social History Smoking Status: Former Smoker Alcohol Use: none Drug Use: none Marital Status: Housing Status: lives with significant other Occupation Status: retired Current/Historical Medications Scheduled Amlodipine Besylate (Amlodipine Besylate), 2.5 MG PO DAILY Aspirin (Aspirin Ec), 81 MG PO QAM Calcium Acetate (Phoslo 667 Mg), 1,334 MG PO AC Calcium Carbonate (Tums), 500 MG PO AC Cholecalciferol (Vitamin D3), 1,000 INTER.UNIT PO QAM Cyanocobalamin (Vitamin B12), 1,000 MCG PO QAM Docusate Sodium (Docusate Sodium), 100 MG PO QAM Escitalopram Oxalate (Lexapro), 5 MG PO DAILY Furosemide (Furosemide), 80 MG PO BID Hydralazine HCl (Hydralazine HCl), 50 MG PO TID Insulin Aspart (Novolog), 1 DOSE SC ACHS Insulin Detemir (Levemir), 45 UNITS SC QPM Insulin Detemir (Levemir), 50 UNITS SC QAM Ipratropium Cutler (Atrovent Hfa), 2 PUFFS INH Q6H Labetalol HCl (Labetalol HCl), 300 MG PO BID Levalbuterol Tartrate (Levalbuterol Tartrate Hfa), 2 PUFFS INH Q6H Levothyroxine Sodium (Levothyroxine Sodium), 25 MCG PO 2XWK Levothyroxine Sodium (Levothyroxine Sodium), 200 MCG PO QAM Lisinopril (Lisinopril), 40 MG PO DAILY Omeprazole (Prilosec), 40 MG PO QAM Rosuvastatin Calcium (Rosuvastatin Calcium), 20 MG PO QPM Tamsulosin HCl (Tamsulosin HCl), 0.4 MG PO QAM Vitamin B Cmplx/Vitc/Folic Ac (Nephrocaps), 1 CAP PO DAILY AT LUNCH Vitamin B Cmplx/Vitc/Folic Ac (Nephrocaps), 1 CAP PO DAILY Allergies Coded Allergies: Metformin (Verified Adverse Reaction, Intermediate, CONFUSION, 06/06/17) Physical Exam Vital Signs Date Time Temp Pulse Resp B/P (MAP) Pulse Ox O2 Delivery O2 Flow Rate FiO2 06/06/17 14:25 67 18 147/68 98 Nasal Cannula 2.0 06/06/17 13:44 36.9 65 18 150/55 98 2.0 06/06/17 13:20 66 06/06/17 12:46 64 18 144/59 99 Nasal Cannula 2.0 06/06/17 12:44 36.7 65 18 157/76 99 2.0 06/06/17 12:16 66 20 140/64 100 Nasal Cannula 2.0 06/06/17 12:14 36.6 67 18 134/49 100 2.0 06/06/17 12:05 36.7 64 18 165/55 100 2.0 06/06/17 11:59 36.7 64 20 145/53 100 2.0 06/06/17 11:54 98 Nasal Cannula 2.0 06/06/17 11:23 98 Nasal Cannula 2.0 06/06/17 11:21 63 16 154/46 92 Room Air 06/06/17 11:20 89 Room Air 06/06/17 09:53 66 06/06/17 09:37 94 Room Air 06/06/17 09:20 36.4 70 20 126/64 94 Room Air Physical Exam CONSTITUTIONAL/VITAL SIGNS: Reviewed / noted above. GENERAL: Non-toxic in appearance. INTEGUMENTARY: Warm, dry, and [place]. HEAD: Normocephalic. EYES: without scleral icterus or trauma. ENT/OROPHARYNX: clear and moist. LYMPHADENOPATHY/NECK: Is supple without lymphadenopathy or meningismus. RESPIRATORY: Lungs clear and equal. CARDIOVASCULAR: Regular rate and rhythm. GI/ABDOMEN: Soft and nontender. No organomegaly or pulsatile mass. No rebound or guarding. Normal bowel sounds. EXTREMITIES: Warm and well perfused. BACK: No CVA tenderness. RECTAL: Black guaiac positive stools. NEUROLOGICAL: Intact without focal deficits. PSYCHIATRIC: normal affect. MUSCULOSKELETAL: Normally developed with good muscle tone. Medical Decision & Procedures ER Provider Diagnostic Interpretation: Radiology results as stated below per my review and radiologist interpretation: CHEST ONE VIEW PORTABLE CLINICAL HISTORY: EVALUATE GI BLEED COMPARISON STUDY: 04/18/2017 FINDINGS: Moderate stable cardiomegaly. Chronic parenchymal change left lung base. No acute infiltrate. Diaphragms smooth. IMPRESSION: Stable moderate cardiomegaly. Chronic parenchymal change left base. No acute process. The above report was generated using voice recognition software. It may contain grammatical, syntax or spelling errors. Electronically signed by: Osmany Marte M.D. 06/06/2017 10:01 AM Dictated Date/Time: 06/06/2017 10:00 AM Laboratory Results 06/06/17 10:04 Red Blood Count 2.07, Mean Corpuscular Volume 94.2, Mean Corpuscular Hemoglobin 30.0, Mean Corpuscular Hemoglobin Concent 31.8, Mean Platelet Volume 10.3, Neutrophils (%) (Auto) 65.7, Lymphocytes (%) (Auto) 21.9, Monocytes (%) (Auto) 9.5, Eosinophils (%) (Auto) 2.4, Basophils (%) (Auto) 0.5, Neutrophils # (Auto) 2.49, Lymphocytes # (Auto) 0.83, Monocytes # (Auto) 0.36, Eosinophils # (Auto) 0.09, Basophils # (Auto) 0.02 06/06/17 10:04 Test 06/06/17 10:04 White Blood Count 3.79 K/uL (4.8-10.8) Red Blood Count 2.07 M/uL (4.7-6.1) Hemoglobin 6.2 g/dL (14.0-18.0) Hematocrit 19.5 % (42-52) Mean Corpuscular Volume 94.2 fL (80-100) Mean Corpuscular Hemoglobin 30.0 pg (25-34) Mean Corpuscular Hemoglobin Concent 31.8 g/dl (32-36) Platelet Count 213 K/uL (130-400) Mean Platelet Volume 10.3 fL (7.4-10.4) Neutrophils (%) (Auto) 65.7 % Lymphocytes (%) (Auto) 21.9 % Monocytes (%) (Auto) 9.5 % Eosinophils (%) (Auto) 2.4 % Basophils (%) (Auto) 0.5 % Neutrophils # (Auto) 2.49 K/uL (1.4-6.5) Lymphocytes # (Auto) 0.83 K/uL (1.2-3.4) Monocytes # (Auto) 0.36 K/uL (0.11-0.59) Eosinophils # (Auto) 0.09 K/uL (0-0.5) Basophils # (Auto) 0.02 K/uL (0-0.2) RDW Standard Deviation 53.3 fL (36.4-46.3) RDW Coefficient of Variation 15.5 % (11.5-14.5) Immature Granulocyte % (Auto) 0.0 % Immature Granulocyte # (Auto) 0.00 K/uL (0.00-0.02) Hypochromasia PRESENT Prothrombin Time 11.0 SECONDS (9.0-12.0) Prothromb Time International Ratio 1.0 (0.9-1.1) Activated Partial Thromboplast Time 24.9 SECONDS (21.0-31.0) Partial Thromboplastin Ratio 1.0 Anion Gap 6.0 mmol/L (3-11) Est Creatinine Clear Calc Drug Dose 18.9 ml/min Estimated GFR () 15.2 Estimated GFR (Non- 13.1 BUN/Creatinine Ratio 9.5 (10-20) Calcium Level 8.4 mg/dl (8.5-10.1) Total Bilirubin 0.3 mg/dl (0.2-1) Direct Bilirubin < 0.1 mg/dl (0-0.2) Aspartate Amino Transf (AST/SGOT) 12 U/L (15-37) Alanine Aminotransferase (ALT/SGPT) 23 U/L (12-78) Alkaline Phosphatase 84 U/L (45-117) Total Creatine Kinase 110 U/L (39-308) Creatine Kinase MB 3.4 ng/ml (0.5-3.6) Creatine Kinase MB Ratio 3.1 (0-3.0) Troponin I 0.119 ng/ml (0-0.045) Total Protein 6.3 gm/dl (6.4-8.2) Albumin 3.0 gm/dl (3.4-5.0) Laboratory results as stated above per my review. Medications Administered Medications (Trade) Dose Ordered Sig/Unique Route Start Time Stop Time Status Last Admin Dose Admin Famotidine (Pepcid 20mg Iv Push) 20 mg NOW STAT IV 06/06/17 14:26 06/06/17 14:27 DC 06/06/17 14:40 20 MG ECG Indication: SOB/dyspnea Rate (beats per minute): 66 Rhythm: normal sinus Findings: RBBB, T-wave inversion (Inferior and Lateral) Change: no significant change (When compared to 04/18/2017) ED Course 0934: Previous medical records were reviewed. The patient was evaluated in room B10. A complete history and physical examination was performed. 0928: I performed a rectal exam. Please see exam note. 1028: I reassessed the patient at this time. He is resting comfortably. 1128: I reassessed the patient at this time. He is resting comfortably. I discussed the results and treatment plan with the patient. I answered all pertaining questions that he had. He expressed understanding and verbalized agreement. The patient will be further evaluated. 1134: I spoke with nicole Yap. We discussed the patients case. The patient will be evaluated by the [facility] for further management. 1258: I spoke with nicole Yap. We discussed the patients case. He states the patient needs to be transferred to [facility]. 1318: I spoke with Dr. Alicea, [facility] welding rod coater and Dr. Esparza, [facility] hospitalist. We discussed the patients case. Currently there are not any beds available at [facility]. 1325: I spoke with Dr. Sullivan, GI specialist. He recommended the patient be evaluated via an endoscopy. 1330: I spoke with nicole Yap. We discussed the patient' s case. The patient will be further evaluated. Medical Decision Deferential diagnoses include: UTI, prostate enlargement/inflammation, and renal insufficiency. This is a 77-year-old male who presents to the ED with a chief complaint of anemia. The patient reported from dialysis. The patient has a history of GI bleeds. He has guaiac positive black stools today. EKG shows some chronic T wave inversions in the inferolateral leads. His troponin today was 0.119. Hemoglobin is 6.2. Potassium was slightly low at 3.0. BUN and creatinine are elevated. The patient is on chronic dialysis. Glucose was 200 per the patient was transfused 2 units of blood during his ED stay. He will be evaluated by the hospitalist service for further inpatient evaluation and care. Medication Reconcilliation Current Medication List: was personally reviewed by wi Blood Pressure Screening Patient's blood pressure: Normal blood pressure Consults Time Called: 1120 Consulting Physician: nicole Yap Returned Call: 1134 I spoke with nicole Yap. We discussed the patients case. The patient will be evaluated by the [facility] for further management. 1258: I spoke with nicole Yap. We discussed the patients case. He states the patient needs to be transferred to [facility]. 1330: I spoke with Dr. Cipriano Gallegos, hospitalist. We discussed the patient' s case. The patient will be further evaluated. Additional Consults: Time Called: 1305 Consulted Physician: Dr. Alicea, [facility] welding rod coater and Dr. Esparza , hospitalist Returned Call: 1318 Additional Comments: I spoke with Dr. Alicea [facility] welding rod coater and Dr. Esparza [facility] hospitalist. We discussed the patients case. Currently there are not any beds available at [facility]. Time Called: 1323 Consulted Physician: Dr. Sullivan, GI specialist Returned Call: 1325 Additional Comments: I spoke with Dr. Sullivan, GI specialist. He recommended the patient be evaluated via an endoscopy. Impression Primary Impression: Anemia Additional Impressions: GI bleed Dependence on renal dialysis Elevated troponin Critical Care I have personally spent 30 minutes of critical care time in the direct management of this patient. This includes bedside care, interpretation of diagnostic studies, and testing, discussion with consultants, patient, and family members, and other required patient management activities. Scribe Attestation The scribe's documentation has been prepared under my direction and personally reviewed by me in its entirety. I confirm that the note above accurately reflects all work, treatment, procedures, and medical decision making performed by me. Departure Information Dispostion Being Evaluated By Hospitalist Referrals Mahsa Wang DO (PCP) Patient Instructions [facility] Problem Qualifiers
[2017-06-06] MEDS ORDERED: ZOLPIDEM TARTRATE 5 MG TAB PO PRN ×2 (14:15)
[2017-06-06] MEDS ORDERED: DEXTROSE 50% 50 ML SYR IV PRN (14:15)
[2017-06-06] MEDS ORDERED: ALUMINUM/MAGNESIUM/SIMETH (MAALOX MAX) 30 ML UDC PO PRN (14:15)
[2017-06-06] MEDS ORDERED: MAGNESIUM HYDROXIDE SUSP 30 ML UDC PO PRN (14:15)
[2017-06-06] MEDS ORDERED: GLUCOSE 10 TABS/TUBE PO PRN (14:15)
[2017-06-06] MEDS ORDERED: POLYETHYLENE (MIRALAX) 17 GM PACK PO PRN (14:15)
[2017-06-06] MEDS ORDERED: GLUCOSE 40% GEL 15 GM TUBE PO PRN (14:15)
[2017-06-06] MEDS ORDERED: GLUCAGON FOR INJ 1 MG VIAL SQ PRN (14:15)
[2017-06-06] MEDS ORDERED: ACETAMINOPHEN 325 MG TAB PO PRN (14:15)
[2017-06-06] MEDS ORDERED: ONDANSETRON INJ 2 MG/ML 2 ML VIAL IV PRN (14:15)
[2017-06-06] MEDS ORDERED: FAMOTIDINE 20MG/5ML IV PUSH IV STA (14:26)
[2017-06-06] MEDS ORDERED: PANTOprazole INJ 40 MG in SYRINGE 0 ML IV STA (14:35)
--- NOTE | 2017-06-06 14:39 | History and Physical ---
History & Physical Date & Time of Service: Jun 06, 2017 at 14:23 Chief Complaint: Coming From Dialysis Primary Care Physician: Mahsa Wang DO History of Present Illness Source: patient, partner 77-year-old man with past medical history of end-stage renal disease on hemodialysis through a functioning fistula in left forearm, also has history of diabetes mellitus type 2 on insulin, hypertension, coronary artery disease and chronic upper GI bleed. Patient presented to the hospital with shortness of breath progressively worse over the past 2 days. Also has melena progressively getting worse over the past 2 months. Patient hemoglobin was found to be 6.4, last hemoglobin here a month and a half ago was more than 8. Patient had an upper endoscopy here done by a month and a half ago that revealed tubular adenomatous duodenal polyp. Patient continues to lose some blood and have melena, unfortunately signed AMA on his subsequent admission in April 19. Patient did have an upper endoscopy and [facility] on May 15. Unfortunately I don't have access to the record this point. Patient continues to have melena and recently developed shortness of breath but denies any chest pain or palpitation. Past Medical/Surgical History Medical Problems: (1) Asthma Status: Chronic (2) Diabetes Status: Chronic (3) Epistaxis Status: Chronic (4) Heart disease Status: Chronic (5) Hypertension Status: Chronic Family History Diabetes mellitus Hypertension Kidney disease Kidney stones Social History Smoking Status: Former Smoker Drug Use: none Marital Status: Housing status: lives with family Occupational Status: retired Immunizations History of Influenza Vaccine: Unknown History of Tetanus Vaccine?: unknown History of Pneumococcal: Yes Pneumococcal Date: Dec 19, 2007 History of Hepatitis B Vaccine: Unknown Multi-Drug Resistant Organisms History of MDRO: No Allergies Coded Allergies: Metformin (Verified Adverse Reaction, Intermediate, CONFUSION, 06/06/17) Home Medications Scheduled Amlodipine Besylate (Amlodipine Besylate), 2.5 MG PO DAILY Aspirin (Aspirin Ec), 81 MG PO QAM Calcium Acetate (Phoslo 667 Mg), 1,334 MG PO AC Calcium Carbonate (Tums), 500 MG PO AC Cholecalciferol (Vitamin D3), 1,000 INTER.UNIT PO QAM Cyanocobalamin (Vitamin B12), 1,000 MCG PO QAM Docusate Sodium (Docusate Sodium), 100 MG PO QAM Escitalopram Oxalate (Lexapro), 5 MG PO DAILY Furosemide (Furosemide), 80 MG PO BID Hydralazine HCl (Hydralazine HCl), 50 MG PO TID Insulin Aspart (Novolog), 1 DOSE SC ACHS Insulin Detemir (Levemir), 45 UNITS SC QPM Insulin Detemir (Levemir), 50 UNITS SC QAM Ipratropium Pope (Atrovent Hfa), 2 PUFFS INH Q6H Labetalol HCl (Labetalol HCl), 300 MG PO BID Levalbuterol Tartrate (Levalbuterol Tartrate Hfa), 2 PUFFS INH Q6H Levothyroxine Sodium (Levothyroxine Sodium), 25 MCG PO 2XWK Levothyroxine Sodium (Levothyroxine Sodium), 200 MCG PO QAM Lisinopril (Lisinopril), 40 MG PO DAILY Omeprazole (Prilosec), 40 MG PO QAM Rosuvastatin Calcium (Rosuvastatin Calcium), 20 MG PO QPM Tamsulosin HCl (Tamsulosin HCl), 0.4 MG PO QAM Vitamin B Cmplx/Vitc/Folic Ac (Nephrocaps), 1 CAP PO DAILY AT LUNCH Vitamin B Cmplx/Vitc/Folic Ac (Nephrocaps), 1 CAP PO DAILY Review of Systems Constitutional: + weakness, + fatigue, No fever, No chills, No sweats, No weight loss, No problem reported Eyes: No worsening of vision, No eye pain, No redness, No discharge, No diplopia, No problem reported ENT: No hearing loss, No unusual epistaxis, No nasal symptoms, No sore throat, No tinnitus, No dental problems, No trouble swallowing, No problem reported Respiratory: + shortness of breath, + dyspnea on exertion, + dyspnea at rest, No cough, No sputum, No wheezing, No hemoptysis, No problem reported Cardiovascular: No chest pain, No orthopnea, No PND, No edema, No claudication , No palpitations, No problem reported Abdomen: No pain, No nausea, No vomiting, No diarrhea, No constipation, No GI bleeding, No problem reported Musculoskeletal: + problem reported (muscles cramp), No joint pain, No muscle pain, No swelling, No calf pain Genitourinary - Male: No hematuria, No dysuria, No urinary frequency, No urinary urgency, No urinary hesitancy, No urinary retention, No urinary incontinence, No penile discharge, No lesions, No impotence, No problem reported Neurologic: No memory loss, No paralysis, No weakness, No numbness/tingling, No vertigo, No balance problems, No problem reported Psychiatric: No depression symptoms, No anhedonism, No anxiety, No insomnia, No substance abuse, No problem reported Endocrine: No fatigue, No excessive thirst, No excessive urination, No problem reported Hematologic / Lymphatic: No abnormal bleeding/bruising, No clotting problems, No swollen lymph nodes, No night sweats, No problem reported Integumentary: No rash, No itch, No new/changing skin lesions, No color change , No bleeding, No problem reported Allergic / Immunologic: No environmental allergies, No seasonal allergies, No pet sensitivities, No food allergies, No hives, No frequent infections, No poor healing, No prolonged convalescence, No problem reported Physical Exam Vital Signs Date Time Temp Pulse Resp B/P (MAP) Pulse Ox O2 Delivery O2 Flow Rate FiO2 06/06/17 13:44 36.9 65 18 150/55 98 2.0 06/06/17 13:20 66 06/06/17 12:46 64 18 144/59 99 Nasal Cannula 2.0 06/06/17 12:44 36.7 65 18 157/76 99 2.0 06/06/17 12:16 66 20 140/64 100 Nasal Cannula 2.0 06/06/17 12:14 36.6 67 18 134/49 100 2.0 06/06/17 12:05 36.7 64 18 165/55 100 2.0 06/06/17 11:59 36.7 64 20 145/53 100 2.0 06/06/17 11:54 98 Nasal Cannula 2.0 06/06/17 11:23 98 Nasal Cannula 2.0 06/06/17 11:21 63 16 154/46 92 Room Air 06/06/17 11:20 89 Room Air 06/06/17 09:53 66 06/06/17 09:37 94 Room Air 06/06/17 09:20 36.4 70 20 126/64 94 Room Air General Appearance: + mild distress, + thin Head: normocephalic, atraumatic Eyes: normal inspection, EOMI ENT: normal ENT inspection, hearing grossly normal Neck: supple Respiratory/Chest: chest non-tender, lungs clear, normal breath sounds, no respiratory distress, no accessory muscle use Cardiovascular: regular rate, rhythm, no edema, no gallop, no JVD, + systolic murmur Abdomen/GI: normal bowel sounds, non tender, soft, no organomegaly, no pulsatile mass Back: normal inspection Extremities/Musculoskelatal: normal inspection, no calf tenderness, normal capillary refill, no pedal edema Neurologic/Psych: [employer]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 as tested, no motor/sensory deficits, alert, normal mood/affect, normal reflexes, oriented x 3 Skin: + pallor Diagnostics Laboratory Results Results Past 24 Hours Test 06/06/17 10:04 Range/Units White Blood Count 3.79 4.8-10.8 K/uL Red Blood Count 2.07 4.7-6.1 M/uL Hemoglobin 6.2 14.0-18.0 g/dL Hematocrit 19.5 42-52 % Mean Corpuscular Volume 94.2 80-100 fL Mean Corpuscular Hemoglobin 30.0 25-34 pg Mean Corpuscular Hemoglobin Concent 31.8 32-36 g/dl Platelet Count 213 130-400 K/uL Mean Platelet Volume 10.3 7.4-10.4 fL Neutrophils (%) (Auto) 65.7 % Lymphocytes (%) (Auto) 21.9 % Monocytes (%) (Auto) 9.5 % Eosinophils (%) (Auto) 2.4 % Basophils (%) (Auto) 0.5 % Neutrophils # (Auto) 2.49 1.4-6.5 K/uL Lymphocytes # (Auto) 0.83 1.2-3.4 K/uL Monocytes # (Auto) 0.36 0.11-0.59 K/uL Eosinophils # (Auto) 0.09 0-0.5 K/uL Basophils # (Auto) 0.02 0-0.2 K/uL RDW Standard Deviation 53.3 36.4-46.3 fL RDW Coefficient of Variation 15.5 11.5-14.5 % Immature Granulocyte % (Auto) 0.0 % Immature Granulocyte # (Auto) 0.00 0.00-0.02 K/uL Hypochromasia PRESENT Prothrombin Time 11.0 9.0-12.0 SECONDS Prothromb Time International Ratio 1.0 0.9-1.1 Activated Partial Thromboplast Time 24.9 21.0-31.0 SECONDS Partial Thromboplastin Ratio 1.0 Sodium Level 137 136-145 mmol/L Potassium Level 3.0 3.5-5.1 mmol/L Chloride Level 99 98-107 mmol/L Carbon Dioxide Level 32 21-32 mmol/L Anion Gap 6.0 3-11 mmol/L Blood Urea Nitrogen 39 7-18 mg/dl Creatinine 4.15 0.60-1.40 mg/dl Est Creatinine Clear Calc Drug Dose 18.9 ml/min Estimated GFR () 15.2 Estimated GFR (Non- 13.1 BUN/Creatinine Ratio 9.5 10-20 Random Glucose 200 70-99 mg/dl Calcium Level 8.4 8.5-10.1 mg/dl Total Bilirubin 0.3 0.2-1 mg/dl Direct Bilirubin < 0.1 0-0.2 mg/dl Aspartate Amino Transf (AST/SGOT) 12 15-37 U/L Alanine Aminotransferase (ALT/SGPT) 23 12-78 U/L Alkaline Phosphatase 84 45-117 U/L Total Creatine Kinase 110 39-308 U/L Creatine Kinase MB 3.4 0.5-3.6 ng/ml Creatine Kinase MB Ratio 3.1 0-3.0 Troponin I 0.119 0-0.045 ng/ml Total Protein 6.3 6.4-8.2 gm/dl Albumin 3.0 3.4-5.0 gm/dl Impression Assessment and Plan 77-year-old man with past medical history of end-stage renal disease on hemodialysis through a functioning fistula in left forearm, also has history of diabetes mellitus type 2 on insulin, hypertension, coronary artery disease and chronic upper GI bleed. Patient presented to the hospital with shortness of breath progressively worse over the past 2 days secondary to acute and chronic upper GI bleed Assessment Acute and chronic upper GI bleed/melena Acute and chronic blood loss anemia Shortness of breath secondary to above Positive troponin, most likely demand ischemia plus his renal failure End-stage renal disease on hemodialysis Hypertension Diabetes mellitus type 2 insulin-requiring CAD Plan Case was discussed with Dr. Bliss who initially recommended the patient to go to [facility]. Unfortunately her she did not have beds to receive the patient and they opted sending any patient to their ED except trauma as per ED physician Case was discussed again with Dr. Bliss who recommended the patient should be nothing by mouth and will go tomorrow for upper endoscopy Received Pepcid 20 mg IV 1 stat Protonix 40 mg IV twice a day 2 units packed RBCs transfusion Continue blood pressure medications but hold lisinopril his blood pressure is anticipated to go down Hold insulin long-acting, continue sliding scale insulin Check hemoglobin A1c SCD boot for DVT prophylaxis Patient already had dialysis today. Manager Skilled is Dr. Briceno . Will not consult her unless the patient is in a state more than 2 days Advanced Directives Existing Living Will: No Existing Power of Tack Picker: Yes (DAUGHTERS ) Resuscitation Status FULL RESUSCITATION VTE Prophylaxis VTE Risk Assessment Done? Y/N: Yes Risk Level: Moderate
[2017-06-06] MEDS: CALCIUM ACETATE 667MG GELCAP PO SCH (15:44)
[2017-06-06] MEDS: CALCIUM CARBONATE 500 MG CHEWABLE PO SCH (15:44)
--- NOTE | 2017-06-06 16:33 | GASTROINTESTINAL CONSULTATION ---
DATE OF CONSULTATION: 06/06/2017 CHIEF COMPLAINT: Melena and acute anemia. HISTORY OF PRESENT ILLNESS: Mr. Mcintyre is a 77-year-old white male known to me from previous procedures and evaluations. The patient has history of a duodenal polyp that has undergone piecemeal and serial resection over some time. In April, I had performed a polypectomy. He had a bleeding event several days later with melena, but had left the hospital AMA before evaluation. The patient underwent a repeat endoscopy in mid May at [facility] for continued removal of the polyp and to assess for any potential bleeding sources. Additional polypectomy revealed adenoma, but no other bleeding sources were identified. The patient reports that over the past several days he has had melena with progressive shortness of breath and dyspnea. In April, his hemoglobin was above 8. The patient denies any syncope or near syncopal episodes, has not had hematemesis, coffee-ground emesis, bright red blood per rectum, diarrhea, constipation or abdominal pain. PAST MEDICAL HISTORY: Significant for asthma, diabetes, epistaxis, heart disease, and hypertension. FAMILY HISTORY: Significant for hypertension, kidney stones, diabetes. SOCIAL HISTORY: The patient smoked in the past but no longer does so. He is and lives with his family and is retired. ALLERGIES: METFORMIN. MEDICATIONS: His home medications are lengthy and include amlodipine, aspirin, PhosLo, calcium carbonate, vitamin D3, B12, Colace, Lexapro, Lasix, hydralazine, insulin, labetalol, levothyroxine, lisinopril, rosuvastatin, and omeprazole 40 mg daily. REVIEW OF SYSTEMS: Otherwise noncontributory based on 13-point exam except for mentioned above. PHYSICAL EXAMINATION: VITAL SIGNS: On admission today - afebrile at 36.4, blood pressure 126/64, heart rate 70, respirations 20, 94% on room air. GENERAL: The patient is awake, alert and oriented x3. HEENT: Sclerae anicteric, conjunctivae moist. Oral mucosa moist. Normocephalic, atraumatic. NECK: Normal range of motion. HEART: Normal S1, S2. LUNGS: Clear to auscultation without rales, rhonchi or wheezes. ABDOMEN: Soft, flat, nontender, nondistended with positive bowel sounds. No rebound or guarding. I do not appreciate hepatosplenomegaly. EXTREMITIES: Normal range of motion all extremities. Without clubbing, cyanosis or edema. RECTAL: Deferred at this time. LABORATORY STUDIES: On admission - white count 3.79, hemoglobin is 6.2, MCV 94, platelets 213,000. INR 1, PTT 24.9. BUN and creatinine are 39 and 4.15 with a potassium of 3.00. Liver panel shows a total bilirubin of 0.3, AST 12, ALT 23, alkaline phosphatase 84, albumin 3.0, and total protein 6.3. IMAGING DATA: The patient had chest x-ray today which was evidence for stable cardiomegaly and chronic parenchymal changes at the left base but no acute process. IMPRESSION AND PLAN: The patient with recurrent gastrointestinal bleeding with melena and a drop from his baseline hemoglobin. The patient was also fatigued with some shortness of breath and weakness. At this point, the source of the patient's ongoing bleeding is not completely clear, although there is and has been pathology in the region of the duodenum. He does have a sizeable periampullary diverticula both involving the minor and major ampulla as well as a polypoid structure that had been treated a few weeks ago at [facility]. This lesion is opposite the major ampulla and large diverticulum. I made the following recommendations: We will keep patient on clear liquids tonight, n.p.o. after midnight except for meds, transfuse to a satisfactory hemoglobin and will plan for EGD with a pediatric colonoscope for not only assessment of the duodenum, but to look for other potential bleeding lesions in the small bowel, stomach and in the duodenal region. If nothing is found, we will perform a side-viewing evaluation with a duodenoscope given the location of the diverticula and prior polyp. Would continue PPI therapy. Given his low potassium, but renal dysfunction and hemoglobin status, it may be reasonable to have Anesthesia see the patient this evening to ensure that his medical status is satisfactory for endoscope tomorrow. The patient had eaten a couple hours prior to this evaluation. All questions answered.
[2017-06-06] MEDS: FUROSEMIDE 80 MG TAB PO SCH (17:27)
[2017-06-06] MEDS: LEValbuterol HFA 15GM INHALER INH SCH (18:00)
[2017-06-06] MEDS: IPRATROPIUM BROMIDE HFA INHALER INH SCH (18:00)
[2017-06-06] MEDS: INSULIN ASPART 100 UNITS/ML 3 ML PEN SC SCH ×2 (18:22→21:11)
[2017-06-06] MEDS: ROSUVASTATIN CALCIUM 20 MG TAB PO SCH (19:40)
[2017-06-06] MEDS: LABETALOL HCL 100 MG TAB PO SCH (19:40)
[2017-06-06] MEDS: PANTOprazole INJ 40 MG in SYRINGE 0 ML IV SCH (21:09)
[2017-06-07 03:30] VITALS: BP_SYST 154; BP_SYST 160; BP_DIAS 76; BP_DIAS 79; PULSE 70; PULSE 73; TEMP 36.9; TEMP 37.2; O2SAT 90; O2SAT 96
[2017-06-07 05:19] LABS: HEMATOCRIT 22.6 % (42-52); HEMOGLOBIN 7.3 g/dL (14.0-18.0); MEAN CELL VOLUME 93.8 fL (80-100); MEAN CORPUSCULAR HEMOGLOBIN 30.3 pg (25-34); MEAN PLATELET VOLUME 9.9 fL (7.4-10.4); PLATELET COUNT 195 K/uL (130-400); RED CELL DISTRIBUTION WIDTH CV 15.7 % (11.5-14.5); RED CELL DISTRIBUTION WIDTH SD 53.4 fL (36.4-46.3); WHITE BLOOD COUNT 5.41 K/uL (4.8-10.8)
[2017-06-07 05:48] LABS: MEAN CORPUSCULAR HGB CONC 32.3 g/dl (32-36)
[2017-06-07] MEDS: LEVOTHYROXINE 200 MCG TAB PO SCH (05:52)
[2017-06-07 05:54] LABS: CALCIUM 7.8 mg/dl (8.5-10.1); CREATININE 5.89 mg/dl (0.60-1.40); POTASSIUM 3.4 mmol/L (3.5-5.1)
[2017-06-07] MEDS: IPRATROPIUM BROMIDE HFA INHALER INH SCH ×4 (05:57→17:30)
[2017-06-07] MEDS: LEValbuterol HFA 15GM INHALER INH SCH ×4 (05:58→17:30)
[2017-06-07 06:35] LABS: HEMOGLOBIN A1C 5.8 % (4.5-5.6)
[2017-06-07] MEDS: CALCIUM ACETATE 667MG GELCAP PO SCH ×3 (07:00→16:27)
[2017-06-07] MEDS: CALCIUM CARBONATE 500 MG CHEWABLE PO SCH ×3 (07:00→16:27)
[2017-06-07] MEDS: INSULIN ASPART 100 UNITS/ML 3 ML PEN SC SCH ×4 (07:00→21:00)
[2017-06-07 07:44] VITALS: BP 127/59; PULSE 71; TEMP 36.8; O2SAT 90
[2017-06-07] MEDS: PANTOprazole INJ 40 MG in SYRINGE 0 ML IV SCH ×2 (08:24→22:02)
[2017-06-07] MEDS: TAMSULOSIN HCL 0.4 MG CAP PO SCH (08:25)
[2017-06-07] MEDS: FUROSEMIDE 80 MG TAB PO SCH ×2 (08:25→16:28)
[2017-06-07] MEDS: ESCITALOPRAM OXALATE 10 MG TAB PO SCH (08:26)
[2017-06-07] MEDS: LABETALOL HCL 100 MG TAB PO SCH ×2 (08:27→22:02)
[2017-06-07] MEDS: AMLODIPINE BESYLATE 5 MG TAB PO SCH (08:27)
[2017-06-07] MEDS ORDERED: INSULIN GLARGINE SOLOSTAR 100 UNITS/ML 3 ML PEN SC ONE (11:25)
[2017-06-07 11:39] VITALS: BP 133/55; PULSE 53; TEMP 36.4; O2SAT 90
--- NOTE | 2017-06-07 11:41 | Hospitalist Progress Note ---
Hospitalist Progress Note Date of Service Jun 07, 2017. (Jackie Williamson ., PA-C) Subjective Pt evaluation today including: conversation w/ patient, physical exam, chart review, lab review, review of studies, review of inpatient medication list Pain: Intermittent 4/10 dull RLQ pain PO Intake: NPO for EGD Voiding: voiding difficulty (makes little urine, on dialysis) Patient reports feeling about the same. He still complains of generalized weakness, fatigue and shortness of breath. These do not feel much better than yesterday. He has a mild non-productive cough. He complains of an intermittent 4/10 dull pain in his RLQ. He reports having 5 episodes of melena this morning. The patient denies fevers, chills, sweats, chest pain, palpitations, claudication, wheezing, nausea, vomiting, dysuria, hematuria, urinary retention, paralysis, weakness, numbness and tingling. Additional Comments: See HPI for pertinent positives and negatives. All other systems reviewed and negative. (Jackie Williamson ., PA-C) Objective Vital Signs Date Time Temp Pulse Resp B/P (MAP) Pulse Ox O2 Delivery O2 Flow Rate FiO2 06/07/17 07:44 36.8 71 18 127/59 (81) 90 Room Air 06/07/17 04:00 Room Air 06/07/17 03:30 36.9 70 21 160/79 (106) 90 Room Air 06/07/17 00:00 Room Air 06/06/17 23:52 36.9 72 22 160/69 (99) 94 Nasal Cannula 06/06/17 20:00 Nasal Cannula 2.0 06/06/17 19:37 36.6 67 18 176/78 98 2.0 06/06/17 18:24 69 18 157/69 97 2.0 06/06/17 17:55 36.9 71 19 173/76 98 2.0 06/06/17 17:26 69 19 163/77 97 2.0 06/06/17 17:10 36.4 67 17 159/71 96 2.0 06/06/17 16:00 97 Nasal Cannula 2.0 06/06/17 15:59 71 21 166/73 (104) Nasal Cannula 2.0 06/06/17 14:44 36.7 70 18 147/68 98 2.0 06/06/17 14:25 67 18 136/52 98 Nasal Cannula 2.0 06/06/17 13:44 36.9 65 18 150/55 98 2.0 06/06/17 13:20 66 06/06/17 12:46 64 18 144/59 99 Nasal Cannula 2.0 06/06/17 12:44 36.7 65 18 157/76 99 2.0 06/06/17 12:16 66 20 140/64 100 Nasal Cannula 2.0 06/06/17 12:14 36.6 67 18 134/49 100 2.0 06/06/17 12:05 36.7 64 18 165/55 100 2.0 06/06/17 11:59 36.7 64 20 145/53 100 2.0 06/06/17 11:54 98 Nasal Cannula 2.0 06/06/17 11:23 98 Nasal Cannula 2.0 06/06/17 11:21 63 16 154/46 92 Room Air 06/06/17 11:20 89 Room Air (Jackie Williamson ., PA-C) Physical Exam Notes: General appearance: Well-developed, well-nourished, no apparent distress Head: Normocephalic, atraumatic Eyes: Normal inspection, PERRL, EOMI ENT: +Dry oral mucosa. Normal ENT inspection, hearing grossly normal, pharynx normal Neck: Supple, no JVD, trachea midline Respiratory/Chest: Lungs clear to auscultation, normal breath sounds, no respiratory distress Cardiovascular: +Systolic murmur. Regular rate & rhythm, no gallop Abdomen/GI: +RUQ and RLQ TTP. Normal bowel sounds, soft Extremities/Musculoskeletal: Normal inspection, no calf tenderness, no pedal edema Neurological/Psych: Alert, normal mood/affect, oriented x 3 Skin: Normal color, warm/dry, no rash (Jackie Williamson ., PA-C) Laboratory Results Last 24 Hours Test 06/06/17 16:37 06/06/17 21:00 06/07/17 05:03 06/07/17 06:29 Bedside Glucose 290 mg/dl 199 mg/dl 182 mg/dl White Blood Count 5.41 K/uL Red Blood Count 2.41 M/uL Hemoglobin 7.3 g/dL Hematocrit 22.6 % Mean Corpuscular Volume 93.8 fL Mean Corpuscular Hemoglobin 30.3 pg Mean Corpuscular Hemoglobin Concent 32.3 g/dl RDW Standard Deviation 53.4 fL RDW Coefficient of Variation 15.7 % Platelet Count 195 K/uL Mean Platelet Volume 9.9 fL Sodium Level 141 mmol/L Potassium Level 3.4 mmol/L Chloride Level 103 mmol/L Carbon Dioxide Level 33 mmol/L Anion Gap 5.0 mmol/L Blood Urea Nitrogen 49 mg/dl Creatinine 5.89 mg/dl Est Creatinine Clear Calc Drug Dose 13.2 ml/min Estimated GFR () 10.0 Estimated GFR (Non- 8.6 BUN/Creatinine Ratio 8.4 Random Glucose 182 mg/dl Estimated Average Glucose 120 mg/dl Hemoglobin A1c 5.8 % Calcium Level 7.8 mg/dl Test 06/07/17 11:00 06/07/17 11:03 (Jackie Williamson ., DESHAWN) Assessment and Plan 77 y/o male with a history of CAD, HTN, HLD, chronic diastolic CHF, COPD, ESRD on HD, anemia, DM II, anxiety/depression, hypothyroidism, and GERD who presents with melena, weakness, fatigue and SOB. Acute on chronic upper GI bleed, acute blood loss anemia--ongoing -Admit to telemetry. No acute events overnight, pt in SR with HR in 60s -GI consulted, appreciate recs: NPO after midnight for EGD. If negative, may need duodenoscopy. Continue PPI therapy. -Continue Protonix 40 mg IV BID -Hgb 7.3 on 06/07, up from 6.2 on admission. S/p 2 units PRBC. Will recheck H&H at 1100, if still around 7 consider transfusing more blood -Trend H&H q6h -BP stable CAD, HTN, HLD--stable -Lisinopril on hold for now -Continue amlodipine 2.5 mg PO qd, hydralazine 50 mg PO TID, labetalol 300 mg PO BID, Crestor 20 mg PO qd -ASA on hold due to ABLA Chronic diastolic CHF--stable, no acute exacerbation -Continue Lasix 80 mg PO BID given recent blood products -Appears clinically dry, may need to hold Lasix if no further blood given COPD--stable, no exacerbation or wheezing -Continue home Xopenex/Atrovent nebs q6h ESRD on HD--stable -Consult nephrology, appreciate recs -Dialysis / DM II--HgbA1c 5.8 on 06/07 -Pt on Levemir 50 units SC qam and 45 units SC qpm -Will start on Lantus 20 units SC BID for now as he is NPO and not eating much at home -Insulin sliding scale -Check BSGs q ac and qhs Anxiety/depression -Continue Lexapro 5 mg PO qd Hypothyroidism -Continue Synthroid 200 mcg PO 5x/week, 225 mcg PO / DVT prophylaxis -Hold chemical prophylaxis due to acute bleed -JOSIE carrizales and SCDs Code Status -Level I, FULL RESUSCITATION STATUS (Jackie Williamson ., PA-C) Supervising Note Dr. Ling I performed a history and physical examination on the patient. I reviewed above note and agree with it. I discussed plan with APC and patient. During my face to face encounter with the patient, I answered all of the patient's questions. The only exception to above plan is the following: Goal of Patient hemoglobin will be above 7 as he does not have unstable angina, nor does he have evidence of active bleeding. Will continue to monitor his hemoglobin. Patient has is not low risk for rebleeding. Will need to monitor him. This was explained to patient. Patient also wishes to be full code. Blatchford score of 7. Rockall score of 6 (Marcos Ling M.D.)
[2017-06-07 11:59] LABS: HEMATOCRIT 22.6 % (42-52); HEMOGLOBIN 7.3 g/dL (14.0-18.0)
[2017-06-07] MEDS ORDERED: LIDOCAINE HCL 2% 2 ML VIAL (20MG/ML) ONE (12:31)
[2017-06-07] MEDS ORDERED: PROPOFOL IV EMULSION 10 MG/ML 20 ML VIAL IV ONE (12:31)
--- NOTE | 2017-06-07 12:40 | Endo History and Physical ---
History & Physical Date of Service: Jun 07, 2017. Chief Complaint: Gi Bleed Referring Physician: Dr Gallegos History of Present Illness For EGD Past Medical History Diabetes, Male Genitourinary Prob., Gastrointestinal Disorder, Reflux, High Cholesterol, Sleep Apnea, CHF, Hypertension, Thyroid Disease, Kidney Disease Past Surgical History Hx Cardiac Surgery: Yes (HEART CATH-NO STENTS) Hx Internal Defibrillator: No Hx Pacemaker: No Hx Abdominal Surgery: Yes (LAP CHOLEY) Hx Post-Op Nausea and Vomiting: No Hx Cancer Surgery: No Hx Thoracic Surgery: No Hx Orthopedic: No Hx Urinary Tract Surgery: Yes (TESTICULAR CYST EXCISION) Social History Smoking Status: Former Smoker Hx Substance Use: No Hx Alcohol Use: No Allergies Coded Allergies: Metformin (Verified Adverse Reaction, Intermediate, CONFUSION, 06/06/17) Current Medications Reported Home Medications Medications Dose Route/Sig Max Daily Dose Days Date Category Dose Instructions Nephrocaps (Vitamin B Complex/Vit C/Folic Acid) Cap 1 Cap PO DAILY 06/06/17 Reported Lexapro (Escitalopram Oxalate) 5 Mg Tab 5 Mg PO DAILY 04/18/17 Reported Amlodipine Besylate 10 Mg Tab 2.5 Mg PO DAILY 04/18/17 Reported Levalbuterol Tartrate Hfa (Levalbuterol Tartrate) 45 Mcg/Act Aer 2 Puffs INH Q6H 04/05/17 Reported Tums (Calcium Carbonate) 500 Mg Chew 500 Mg PO AC 04/05/17 Reported Phoslo 667 Mg (Calcium Acetate) 667 Mg Cap 1,334 Mg PO AC 30 04/05/17 Reported Nephrocaps (Vitamin B Complex/Vit C/Folic Acid) Cap 1 Cap PO DAILY AT LUNCH 04/05/17 Reported Prilosec (Omeprazole) 40 Mg Cap 40 Mg PO QAM 04/05/17 Reported Docusate Sodium 100 Mg Cap 100 Mg PO QAM 04/05/17 Reported Aspirin Ec (Aspirin) 81 Mg Tab 81 Mg PO QAM 01/14/17 Reported Atrovent Hfa (Ipratropium [place]wood) 200 Puffs/3400 Mcg Aers 2 Puffs INH Q6H 01/14/17 Reported Novolog (Insulin Aspart) 100 Units/Ml Inj 1 Dose SC ACHS 01/14/17 Reported ADJUST PER SLIDING SCALE Hydralazine HCl 50 Mg Tab 50 Mg PO TID 01/14/17 Reported Levemir (Insulin Detemir) 100 Units/Ml Inj 50 Units SC QAM 01/14/17 Reported Lisinopril 40 Mg Tab 40 Mg PO DAILY 02/06/16 Reported ON DAYS OF DIALYSIS TAKE AFTER TREATMENT Tamsulosin HCl 0.4 Mg Cap 0.4 Mg PO QAM 02/06/16 Reported Rosuvastatin Calcium 20 Mg Tab 20 Mg PO QPM 02/06/16 Reported Furosemide 80 Mg Tab 80 Mg PO BID 02/06/16 Reported Labetalol HCl 100 Mg Tab 300 Mg PO BID 02/06/16 Reported Levemir (Insulin Detemir) 100 Units/Ml Inj 45 Units SC QPM 01/19/16 Reported Vitamin D3 (Cholecalciferol) 1,000 Unit Tab 1,000 Inter.unit PO QAM 12/06/15 Reported Vitamin B12 (Cyanocobalamin) 1,000 Mcg Tab 1,000 Mcg PO QAM 12/06/15 Reported Levothyroxine Sodium 200 Mcg Tab 200 Mcg PO QAM 12/06/15 Reported Levothyroxine Sodium 25 Mcg Tab 25 Mcg PO 2XWK 12/06/15 Reported EVERY SATURDAY AND SATURDAY TAKE AN ADDITIONAL 25 MCG ALONG WITH 200 MCG TABLET Vital Signs Weight (Kilograms): 98.800 Height (Feet): 6 Height (Inches): 0.00 Date Time Temp Pulse Resp B/P (MAP) Pulse Ox O2 Delivery O2 Flow Rate FiO2 06/07/17 12:19 36.8 66 18 146/64 (91) 96 Room Air 06/07/17 11:39 36.4 53 16 133/55 (81) 90 06/07/17 08:00 Room Air 06/07/17 07:44 36.8 71 18 127/59 (81) 90 Room Air 06/07/17 04:00 Room Air 06/07/17 03:30 36.9 70 21 160/79 (106) 90 Room Air 06/07/17 00:00 Room Air 06/06/17 23:52 36.9 72 22 160/69 (99) 94 Nasal Cannula 06/06/17 20:00 Nasal Cannula 2.0 06/06/17 19:37 36.6 67 18 176/78 98 2.0 06/06/17 18:24 69 18 157/69 97 2.0 06/06/17 17:55 36.9 71 19 173/76 98 2.0 06/06/17 17:26 69 19 163/77 97 2.0 06/06/17 17:10 36.4 67 17 159/71 96 2.0 06/06/17 16:00 97 Nasal Cannula 2.0 06/06/17 15:59 71 21 166/73 (104) Nasal Cannula 2.0 06/06/17 14:44 36.7 70 18 147/68 98 2.0 06/06/17 14:25 67 18 136/52 98 Nasal Cannula 2.0 06/06/17 13:44 36.9 65 18 150/55 98 2.0 06/06/17 13:20 66 06/06/17 12:46 64 18 144/59 99 Nasal Cannula 2.0 06/06/17 12:44 36.7 65 18 157/76 99 2.0 Physical Exam General Appearance: + thin, + pertinent finding (Fistula in left arm) Respiratory/Chest: Respiratory effort: pertinent finding (mild dyspnea) Cardiovascular: Heart Auscultation: RRR Abdomen: Inspection & Palpation: soft Assessment and Plan GI bleed for EGD
--- NOTE | 2017-06-07 13:17 | Discharge Instructions ---
Endoscopy Patient Instructions Date / Procedure(s) Performed Jun 07, 2017. Push Enteroscopy Allergy Information Coded Allergies: Metformin (Verified Adverse Reaction, Intermediate, CONFUSION, 06/06/17) Discharge Date / Findings Jun 07, 2017. Antral ectasia Medication Instructions Restart Stopped Medication(s): resume meds Current Inpatient Medications Medications (Trade) Dose Ordered Sig/Unique Route Start Time Stop Time Status Last Admin Dose Admin Calcium Acetate (Phoslo Cap) 1,334 mg AC PO 06/06/17 16:00 07/06/17 15:59 Calcium Carbonate (Tums Chew Tab) 500 mg AC PO 06/06/17 16:00 07/06/17 15:59 06/06/17 15:44 500 MG Escitalopram Oxalate (Lexapro Tab) 5 mg DAILY PO 06/07/17 09:00 07/07/17 08:59 06/07/17 08:26 5 MG Furosemide (Lasix Tab) 80 mg BID17 PO 06/06/17 17:00 07/06/17 16:59 06/07/17 08:25 80 MG Hydralazine HCl (Apresoline Tab) 50 mg TID PO 06/06/17 21:00 07/06/17 20:59 06/07/17 08:25 50 MG Ipratropium [place] (Atrovent Hfa Inhaler) 2 puffs Q6 INH 06/06/17 18:00 07/06/17 17:59 Labetalol HCl (Normodyne Tab) 300 mg BID PO 06/06/17 21:00 07/06/17 20:59 06/07/17 08:27 300 MG Levalbuterol (Xopenex Hfa Inhaler) 2 puffs Q6 INH 06/06/17 18:00 07/06/17 17:59 Levothyroxine Sodium (Synthroid Tab) 200 mcg DAILYBB PO 06/07/17 06:00 07/07/17 05:59 06/07/17 05:52 200 MCG Rosuvastatin Calcium (Crestor Tab) 20 mg QPM PO 06/06/17 21:00 07/06/17 20:59 06/06/17 19:40 20 MG Tamsulosin HCl (Flomax Cap) 0.4 mg QAM PO 06/07/17 09:00 07/07/17 08:59 06/07/17 08:25 0.4 MG Amlodipine Besylate (Norvasc Tab) 2.5 mg QAM PO 06/07/17 09:00 07/07/17 08:59 06/07/17 08:27 2.5 MG Pantoprazole Sodium 40 mg/ Syringe 10 ml @ 5 mls/min DAILY@,21 IV 06/06/17 21:00 07/06/17 20:59 06/07/17 08:24 5 MLS/MIN Acetaminophen (Tylenol Tab) 650 mg Q4H PRN PO 06/06/17 14:15 07/06/17 14:14 Al Hydrox/Mg Hydrox/Simethicone (Maalox Max Susp) 15 ml Q4H PRN PO 06/06/17 14:15 07/06/17 14:14 Magnesium Hydroxide (Milk Of Magnesia Susp) 30 ml Q12H PRN PO 06/06/17 14:15 07/06/17 14:14 Zolpidem Tartrate (Ambien Tab) 5 mg HSZ PRN PO 06/06/17 14:15 07/06/17 14:14 Ondansetron HCl (Zofran Inj) 4 mg Q6H PRN IV 06/06/17 14:15 07/06/17 14:14 06/07/17 05:57 4 MG Polyethylene (Miralax Powder Packet) 17 gm DAILY PRN PO 06/06/17 14:15 07/06/17 14:14 Insulin Aspart (novoLOG ASPART) SLIDING SCALE If C... ACHS SC 06/06/17 16:15 07/06/17 16:14 06/06/17 21:11 2 UNITS Glucose (Glucose 40% Gel) 15-30 GRAMS 15 GRAMS... UD PRN PO 06/06/17 14:15 07/06/17 14:14 Glucose (Glucose Chew Tab) 4-8 Tablets 4 Tabl... UD PRN PO 06/06/17 14:15 07/06/17 14:14 Dextrose (Dextrose 50% 50ML Syringe) 25-50ML OF 50% DW IV FOR... UD PRN IV 06/06/17 14:15 07/06/17 14:14 Glucagon (Glucagon Inj) 1 mg UD PRN SQ 06/06/17 14:15 07/06/17 14:14 Levothyroxine Sodium (Synthroid Tab) 25 mcg TuTh@0600 PO 06/11/17 06:00 07/11/17 05:59 Insulin Glargine (Lantus Solostar Pen) 20 units BID SC 06/07/17 21:00 07/07/17 20:59 Provider Instructions Activity Restrictions - No exercising or heavy lifting for 24 hours. - Do not drink alcohol the day of the procedure. - Do not drive a car or operate machinery until the day after the procedure. - Do not make any important decisions or sign important papers in 24 hours after the procedure. Following Day: - Return to full activity which may include returning to work/school. Diet Start your diet with liquids and light foods (jello, soup, juice, toast). Then eat your usual diet if not nauseated. Treatment For Common After Affects For mild abdominal pain, bloating, or excessive gas: - Rest - Eat lightly - Lie on right side Follow-Up Information Follow-up with as scheduled Anesthesia Information What You Should Know You have had a procedure that required some medicine to reduce anxiety and discomfort. This treatment is called moderate sedation. After receiving the treatment, you may be sleepy, but you will be able to breathe on your own. The effects of the treatment may last for several hours. Follow these instructions along with Activity/Diet recommendations noted above: * Do NOT do anything where dizziness or clumsiness would be dangerous. * Rest quietly at home today, then you can be up and about tomorrow. * Have a responsible person stay with you the rest of today. * You may have had an I.V. today. If so, you may take the dressing off later today. Recommendations Call your doctor if: * Trouble breathing * Continuous vomiting for more than 24 hours * Temperature above 101 degrees * Severe abdominal pain or bloating * Pain not relieved by pain medicine ordered * There is increased drainage or redness from any incision * A large amount of rectal bleeding greater than 2-3 tablespoons. (If you had a polyp/s removed or have hemorrhoids, a small amount of blood - from the rectum is to be expected.) * You have any unanswered questions or concerns. IN THE EVENT OF A SERIOUS EMERGENCY, GO TO THE NEAREST EMERGENCY ROOM Your discharge instructions were prepared by provider Mando White. Patient Instructions Signature Page Darnell Mcintyre Patient (or Guardian) Signature/Date: I have read and understand the instructions given to me by my caregivers. Caregiver/RN/Doctor Signature/Date: The above-named patient and/or guardian has received patient instructions on this date. + Original Patient Signature Page (only) stays with chart. Please make copy for patient.
--- NOTE | 2017-06-07 13:24 | GI REPORT ---
Procedure Date: 06/07/2017 12:28 PM Procedure: Upper GI endoscopy Indications: Melena Medicines: Propofol total dose 240 mg IV, Etomidate 12 mg IV, Lidocaine 40 mg IV Complications: No immediate complications. Estimated Blood Loss: Estimated blood loss was minimal. Procedure: Pre-Anesthesia Assessment: - Prior to the procedure, a History and Physical was performed, and patient medications, allergies and sensitivities were reviewed. The patient's tolerance of previous anesthesia was reviewed. - The risks and benefits of the procedure and the sedation options and risks were discussed with the patient. All questions were answered and informed consent was obtained. After obtaining informed consent, the endoscope was passed under direct vision. Throughout the procedure, the patient's blood pressure, pulse, and oxygen saturations were monitored continuously. The scope was introduced through the mouth, and advanced to the mid-jejunum. The upper GI endoscopy was accomplished without difficulty. The patient tolerated the procedure well. Findings: The examined esophagus was normal. Multiple 4 mm semi-sessile polyps with no bleeding and no stigmata of recent bleeding were found in the gastric body. A few stigmata of recent bleeding angioectasias were found in the prepyloric region of the stomach. Coagulation for hemostasis using heater probe was successful. Estimated blood loss: none. The examined jejunum was normal. A large non-bleeding diverticulum was found in the second portion of the duodenum. A post polypectomy scar was found in the second portion of the duodenum. There was no evidence of the previous polyp. Impression: - Normal esophagus. - Multiple gastric polyps. - A few recently bleeding angioectasias in the stomach. Treated with a heater probe. - Normal examined duodenum. - Normal examined jejunum. - No specimens collected. Recommendation: - Return patient to hospital cheema for ongoing care. - Continue present medications. Mando White M.D. Mando White MD 06/07/2017 1:24:31 PM This report has been signed electronically. Note Initiated On: 06/07/2017 12:28 PM I attest to the content of the Intraoperative Record and orders documented therein, exceptions below
--- NOTE | 2017-06-07 13:42 | PROGRESS NOTE ---
DATE: 06/07/2017 SUBJECTIVE: The patient presents to the endoscopy unit today for EGD for ongoing GI bleed. upper endoscopy was performed with a push enteroscopy into the mid jejunum. the entire small bowel was examined, was normal. In the prepyloric antrum, there were some antral ectasias, there was evidence of recent bleeding with some adherent clot, these were lavaged clean and cauterized with a heater probe with good hemostasis achieved. Incidental finding just included a duodenal diverticulum which was clear and a scar in the second portion of the duodenum where the previous polypectomy was performed. This was also clean based. There were some gastric polyps. No other lesions found. Will continue to follow the patient during his hospital stay.
[2017-06-07] MEDS ORDERED: ETOMIDATE 2 MG/ML 20 ML VIAL IV ONE (14:03)
--- NOTE | 2017-06-07 14:44 | Anesthesiology Progress Note ---
Anesthesia Post Op Note Date & Time Jun 07, 2017 at 14:44 Vital Signs Pain Intensity: 0 Vital Signs Past 12 Hours Date Time Temp Pulse Resp B/P (MAP) Pulse Ox O2 Delivery O2 Flow Rate FiO2 06/07/17 13:47 62 18 147/61 (89) 91 Room Air 06/07/17 13:35 65 18 125/50 (75) 96 Room Air 06/07/17 13:23 67 18 115/61 (79) 92 Nasal Cannula 2 06/07/17 12:19 36.8 66 18 146/64 (91) 96 Room Air 06/07/17 12:00 Room Air 06/07/17 11:39 36.4 53 16 133/55 (81) 90 06/07/17 08:00 Room Air 06/07/17 07:44 36.8 71 18 127/59 (81) 90 Room Air 06/07/17 04:00 Room Air 06/07/17 03:30 36.9 70 21 160/79 (106) 90 Room Air Notes Mental Status: alert / awake / arousable, participated in evaluation Pt Amnestic to Procedure: Yes Nausea / Vomiting: adequately controlled Pain: adequately controlled Airway Patency, RR, SpO2: stable & adequate BP & HR: stable & adequate Hydration State: stable & adequate Anesthetic Complications: no major complications apparent
[2017-06-07 15:04] VITALS: BP 141/63; PULSE 63; TEMP 36.7; O2SAT 94
[2017-06-07 17:17] LABS: HEMATOCRIT 24.2 % (42-52); HEMOGLOBIN 7.5 g/dL (14.0-18.0)
--- NOTE | 2017-06-07 18:50 | Nephrology Consultation ---
Nephrology Consultation Date & Providers Date of Consultation: Jun 07, 2017. Primary Care Provider: Mahsa Wang DO Referring Provider: Reason for Consultation ESRD History of Present Illness Mr. Mcintyre has ESRD due to diabetic nephropathy and hypertensive nephrosclerosis. He dialyzes TTS at the [facility] dialysis unit (Dr. Briceno). He was dialyzed on morning without complication. He was noted to be anemic in appearance. Hemoglobin was checked and acute on chronic anemia noted. Mr. Mcintyre has had recurrent iron deficiency anemia. On 04/10 he underwent EGD by Dr. Sullivan. 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 The stomach had angiodysplasia and several gastric polyps. One polyp was biopsied. Histology was c/w an adenoma. He presented at the end of April with recurrent melena but left the hospital AMA prior to evaluation. Today, he was admitted for blood transfusion, monitoring for ongoing GI blood loss and follow up EGD. EGD was completed without complications. The study documented multiple gastric polyps as well as a few bleeding angiectasia which were treated. Nephrology consultation has been requested to provide inpatient HD. Past Medical/Surgical History Medical: # Asthma/COPD # Diabetes mellitus # ESRD # CAD # HTN # Chronic liver disease # Colon polyps # Gastric polyps and AVM # Internal hemorrhoids Surgical: # L radiocephalic AVF # EGD Allergies Coded Allergies: Metformin (Verified Adverse Reaction, Intermediate, CONFUSION, 06/06/17) Inpatient Medications Current Inpatient Medications Medications (Trade) Dose Ordered Sig/Unique Route Start Time Stop Time Status Last Admin Dose Admin Calcium Acetate (Phoslo Cap) 1,334 mg AC PO 06/06/17 16:00 07/06/17 15:59 06/07/17 16:27 1,334 MG Calcium Carbonate (Tums Chew Tab) 500 mg AC PO 06/06/17 16:00 07/06/17 15:59 06/07/17 16:27 500 MG Escitalopram Oxalate (Lexapro Tab) 5 mg DAILY PO 06/07/17 09:00 07/07/17 08:59 06/07/17 08:26 5 MG Furosemide (Lasix Tab) 80 mg BID17 PO 06/06/17 17:00 07/06/17 16:59 06/07/17 16:28 80 MG Hydralazine HCl (Apresoline Tab) 50 mg TID PO 06/06/17 21:00 07/06/17 20:59 06/07/17 14:51 50 MG Ipratropium [place] (Atrovent Hfa Inhaler) 2 puffs Q6 INH 06/06/17 18:00 07/06/17 17:59 Labetalol HCl (Normodyne Tab) 300 mg BID PO 06/06/17 21:00 07/06/17 20:59 06/07/17 08:27 300 MG Levalbuterol (Xopenex Hfa Inhaler) 2 puffs Q6 INH 06/06/17 18:00 07/06/17 17:59 Levothyroxine Sodium (Synthroid Tab) 200 mcg DAILYBB PO 06/07/17 06:00 07/07/17 05:59 06/07/17 05:52 200 MCG Rosuvastatin Calcium (Crestor Tab) 20 mg QPM PO 06/06/17 21:00 07/06/17 20:59 06/06/17 19:40 20 MG Tamsulosin HCl (Flomax Cap) 0.4 mg QAM PO 06/07/17 09:00 07/07/17 08:59 06/07/17 08:25 0.4 MG Amlodipine Besylate (Norvasc Tab) 2.5 mg QAM PO 06/07/17 09:00 07/07/17 08:59 06/07/17 08:27 2.5 MG Pantoprazole Sodium 40 mg/ Syringe 10 ml @ 5 mls/min DAILY@,21 IV 06/06/17 21:00 07/06/17 20:59 06/07/17 08:24 5 MLS/MIN Acetaminophen (Tylenol Tab) 650 mg Q4H PRN PO 06/06/17 14:15 07/06/17 14:14 Al Hydrox/Mg Hydrox/Simethicone (Maalox Max Susp) 15 ml Q4H PRN PO 06/06/17 14:15 07/06/17 14:14 Magnesium Hydroxide (Milk Of Magnesia Susp) 30 ml Q12H PRN PO 06/06/17 14:15 07/06/17 14:14 Zolpidem Tartrate (Ambien Tab) 5 mg HSZ PRN PO 06/06/17 14:15 2/3/18 14:14 Ondansetron HCl (Zofran Inj) 4 mg Q6H PRN IV 06/06/17 14:15 07/06/17 14:14 06/07/17 05:57 4 MG Polyethylene (Miralax Powder Packet) 17 gm DAILY PRN PO 06/06/17 14:15 07/06/17 14:14 Insulin Aspart (novoLOG ASPART) SLIDING SCALE If C... ACHS SC 06/06/17 16:15 07/06/17 16:14 06/07/17 16:33 4 UNITS Glucose (Glucose 40% Gel) 15-30 GRAMS 15 GRAMS... UD PRN PO 06/06/17 14:15 07/06/17 14:14 Glucose (Glucose Chew Tab) 4-8 Tablets 4 Tabl... UD PRN PO 06/06/17 14:15 07/06/17 14:14 Dextrose (Dextrose 50% 50ML Syringe) 25-50ML OF 50% DW IV FOR... UD PRN IV 06/06/17 14:15 07/06/17 14:14 Glucagon (Glucagon Inj) 1 mg UD PRN SQ 06/06/17 14:15 07/06/17 14:14 Levothyroxine Sodium (Synthroid Tab) 25 mcg TuTh@0600 PO 06/11/17 06:00 07/11/17 05:59 Insulin Glargine (Lantus Solostar Pen) 20 units BID SC 06/07/17 21:00 07/07/17 20:59 Family History Diabetes mellitus Hypertension Kidney disease Kidney stones Social History Smoking Status: Former Smoker Drug Use: none Marital Status: Housing Status: lives with family 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 Review of Systems A complete review of systems was performed. Pertinent positives are noted above. All other systems are negative. Physical Exam Date Time Temp Pulse Resp B/P (MAP) Pulse Ox O2 Delivery O2 Flow Rate FiO2 06/07/17 16:00 Room Air 06/07/17 15:04 36.7 63 16 141/63 (89) 94 Room Air 06/07/17 13:47 62 18 147/61 (89) 91 Room Air 06/07/17 13:35 65 18 125/50 (75) 96 Room Air 06/07/17 13:23 67 18 115/61 (79) 92 Nasal Cannula 2 06/07/17 12:19 36.8 66 18 146/64 (91) 96 Room Air 06/07/17 12:00 Room Air 06/07/17 11:39 36.4 53 16 133/55 (81) 90 06/07/17 08:00 Room Air 06/07/17 07:44 36.8 71 18 127/59 (81) 90 Room Air 06/07/17 04:00 Room Air 06/07/17 03:30 36.9 70 21 160/79 (106) 90 Room Air 06/07/17 00:00 Room Air 06/06/17 23:52 36.9 72 22 160/69 (99) 94 Nasal Cannula 06/06/17 20:00 Nasal Cannula 2.0 06/06/17 19:37 36.6 67 18 176/78 98 2.0 General Appearance: WD/WN, no apparent distress Head: normocephalic, atraumatic Eyes: normal inspection, sclerae normal ENT: normal ENT inspection, pharynx normal Neck: supple, no JVD Respiratory/Chest: lungs clear, no respiratory distress, no accessory muscle use Cardiovascular: regular rate, rhythm, no murmur Abdomen/GI: non tender, soft Back: normal inspection, no muscle spasm Extremities/Musculoskelatal: normal inspection, no pedal edema, + pertinent finding (AVF with thrill and bruit) Neurologic/Psych: alert, normal mood/affect Laboratory Results Last 24 Hours Test 06/06/17 21:00 06/07/17 05:03 06/07/17 06:29 06/07/17 11:35 Bedside Glucose 199 mg/dl 182 mg/dl 184 mg/dl White Blood Count 5.41 K/uL Red Blood Count 2.41 M/uL Hemoglobin 7.3 g/dL Hematocrit 22.6 % Mean Corpuscular Volume 93.8 fL Mean Corpuscular Hemoglobin 30.3 pg Mean Corpuscular Hemoglobin Concent 32.3 g/dl RDW Standard Deviation 53.4 fL RDW Coefficient of Variation 15.7 % Platelet Count 195 K/uL Mean Platelet Volume 9.9 fL Sodium Level 141 mmol/L Potassium Level 3.4 mmol/L Chloride Level 103 mmol/L Carbon Dioxide Level 33 mmol/L Anion Gap 5.0 mmol/L Blood Urea Nitrogen 49 mg/dl Creatinine 5.89 mg/dl Est Creatinine Clear Calc Drug Dose 13.2 ml/min Estimated GFR () 10.0 Estimated GFR (Non- 8.6 BUN/Creatinine Ratio 8.4 Random Glucose 182 mg/dl Estimated Average Glucose 120 mg/dl Hemoglobin A1c 5.8 % Calcium Level 7.8 mg/dl Test 06/07/17 11:43 06/07/17 14:55 06/07/17 16:25 06/07/17 17:03 Hemoglobin 7.3 g/dL 7.5 g/dL Hematocrit 22.6 % 24.2 % Magnesium Level 2.1 mg/dl Bedside Glucose 166 mg/dl 218 mg/dl Impression (1) End-stage renal disease on hemodialysis (2) Anemia (3) GI bleed Recommendations END STAGE RENAL DISEASE: -- HD TTS. Orders have been entered for treatment tomorrow AM. HD nurse aware. -- Will recheck PRP in am. -- Protect L arm AVF. ANEMIA: -- Transfusion support as needed. -- EPO with HD pending there is no further evidence of acute GI blood loss. HYPERTENSION: -- Hold bp meds for SBP < 100 mm HG.
[2017-06-07 19:34] VITALS: BP 137/60; PULSE 68; TEMP 36.6; O2SAT 95
[2017-06-07] MEDS ORDERED: HEPARIN SOD 5000 UNIT/0.5 ML CARP SQ SCH (21:00)
[2017-06-07] MEDS: ROSUVASTATIN CALCIUM 20 MG TAB PO SCH (22:03)
[2017-06-07] MEDS: INSULIN GLARGINE SOLOSTAR 100 UNITS/ML 3 ML PEN SC SCH (22:04)
[2017-06-07 23:08] LABS: HEMATOCRIT 22.7 % (42-52); HEMOGLOBIN 7.2 g/dL (14.0-18.0)
[2017-06-07 23:30] VITALS: BP 121/54; PULSE 67; TEMP 36.7; O2SAT 82
[2017-06-08] VITALS (24 sets, daily range): BP systolic 127–172; BP diastolic 58–89; PULSE 59–100; TEMP 36.5–37.1; O2SAT 88–96
[2017-06-08] MEDS: IPRATROPIUM BROMIDE HFA INHALER INH SCH ×4 (05:24→17:01)
[2017-06-08] MEDS: LEValbuterol HFA 15GM INHALER INH SCH ×4 (05:24→17:01)
[2017-06-08] MEDS: LEVOTHYROXINE 200 MCG TAB PO SCH (05:59)
[2017-06-08] MEDS: CALCIUM CARBONATE 500 MG CHEWABLE PO SCH ×3 (07:00→16:15)
[2017-06-08 07:14] LABS: HEMATOCRIT 24.7 % (42-52); HEMOGLOBIN 7.9 g/dL (14.0-18.0); MEAN CELL VOLUME 95.4 fL (80-100); MEAN CORPUSCULAR HEMOGLOBIN 30.5 pg (25-34); MEAN PLATELET VOLUME 10.4 fL (7.4-10.4); PLATELET COUNT 224 K/uL (130-400); RED CELL DISTRIBUTION WIDTH CV 15.8 % (11.5-14.5); RED CELL DISTRIBUTION WIDTH SD 53.9 fL (36.4-46.3); WHITE BLOOD COUNT 7.05 K/uL (4.8-10.8)
[2017-06-08 07:52] LABS: CALCIUM 8.4 mg/dl (8.5-10.1); CREATININE 7.33 mg/dl (0.60-1.40); POTASSIUM 3.5 mmol/L (3.5-5.1)
[2017-06-08] MEDS: CALCIUM ACETATE 667MG GELCAP PO SCH ×3 (08:04→17:01)
[2017-06-08] MEDS: FUROSEMIDE 80 MG TAB PO SCH ×2 (08:05→17:02)
[2017-06-08] MEDS: TAMSULOSIN HCL 0.4 MG CAP PO SCH (08:05)
[2017-06-08] MEDS: LABETALOL HCL 100 MG TAB PO SCH ×2 (08:06→21:35)
[2017-06-08] MEDS: AMLODIPINE BESYLATE 5 MG TAB PO SCH (08:06)
[2017-06-08] MEDS: ESCITALOPRAM OXALATE 10 MG TAB PO SCH (08:06)
[2017-06-08] MEDS: PANTOprazole INJ 40 MG in SYRINGE 0 ML IV SCH ×2 (08:09→21:00)
[2017-06-08] MEDS: INSULIN ASPART 100 UNITS/ML 3 ML PEN SC SCH ×4 (08:15→21:00)
[2017-06-08] MEDS: INSULIN GLARGINE SOLOSTAR 100 UNITS/ML 3 ML PEN SC SCH ×2 (08:16→21:00)
--- NOTE | 2017-06-08 08:40 | Progress Note ---
Subjective Date of Service: Jun 08, 2017. Subjective Pt evaluation today including: conversation w/ patient, physical exam, chart review 77 yo male is admitted for upper GI bleed. Patient reports feeling well. He states he has been walking around the hospital today. The only issue is that he has not had a BM in the past day, and he notes that his appetite is decreased. Patient denies any abd. pain, nausea, vomiting. Problem List Medical Problems: (1) Dependence on renal dialysis Status: Acute (2) Elevated troponin Status: Acute (3) Elevated troponin Status: Acute (4) Hyperglycemia due to type 2 diabetes mellitus Status: Acute (5) Leg pain, left Status: Acute (6) Pain of left calf Status: Acute (7) Pulmonary vascular congestion Status: Acute (8) Substernal chest pain Status: Acute (9) Uremia Status: Acute Review of Systems Constitutional: No fever, No chills Respiratory: No cough, No sputum Cardiac: No chest pain, No orthopnea Abdomen: No pain, No nausea Neurologic: No memory loss, No paralysis Psychiatric: No depression symptoms Heme: No abnormal bleeding/bruising Skin: No rash, No itch All Other Systems: Reviewed and Negative Medications Current Inpatient Medications Medications (Trade) Dose Ordered Sig/Unique Route Start Time Stop Time Status Last Admin Dose Admin Calcium Acetate (Phoslo Cap) 1,334 mg AC PO 06/06/17 16:00 07/06/17 15:59 06/07/17 16:27 1,334 MG Calcium Carbonate (Tums Chew Tab) 500 mg AC PO 06/06/17 16:00 07/06/17 15:59 06/07/17 16:27 500 MG Escitalopram Oxalate (Lexapro Tab) 5 mg DAILY PO 06/07/17 09:00 07/07/17 08:59 06/07/17 08:26 5 MG Furosemide (Lasix Tab) 80 mg BID17 PO 06/06/17 17:00 07/06/17 16:59 06/07/17 16:28 80 MG Hydralazine HCl (Apresoline Tab) 50 mg TID PO 06/06/17 21:00 07/06/17 20:59 06/07/17 22:02 50 MG Ipratropium [place] (Atrovent Hfa Inhaler) 2 puffs Q6 INH 06/06/17 18:00 07/06/17 17:59 Labetalol HCl (Normodyne Tab) 300 mg BID PO 06/06/17 21:00 07/06/17 20:59 06/07/17 22:02 300 MG Levalbuterol (Xopenex Hfa Inhaler) 2 puffs Q6 INH 06/06/17 18:00 07/06/17 17:59 Levothyroxine Sodium (Synthroid Tab) 200 mcg DAILYBB PO 06/07/17 06:00 07/07/17 05:59 06/08/17 05:59 200 MCG Rosuvastatin Calcium (Crestor Tab) 20 mg QPM PO 06/06/17 21:00 07/06/17 20:59 06/07/17 22:03 20 MG Tamsulosin HCl (Flomax Cap) 0.4 mg QAM PO 06/07/17 09:00 07/07/17 08:59 06/07/17 08:25 0.4 MG Amlodipine Besylate (Norvasc Tab) 2.5 mg QAM PO 06/07/17 09:00 07/07/17 08:59 06/07/17 08:27 2.5 MG Pantoprazole Sodium 40 mg/ Syringe 10 ml @ 5 mls/min DAILY@09,21 IV 06/06/17 21:00 07/06/17 20:59 06/07/17 22:02 5 MLS/MIN Acetaminophen (Tylenol Tab) 650 mg Q4H PRN PO 06/06/17 14:15 07/06/17 14:14 Al Hydrox/Mg Hydrox/Simethicone (Maalox Max Susp) 15 ml Q4H PRN PO 06/06/17 14:15 07/06/17 14:14 Magnesium Hydroxide (Milk Of Magnesia Susp) 30 ml Q12H PRN PO 06/06/17 14:15 07/06/17 14:14 Zolpidem Tartrate (Ambien Tab) 5 mg HSZ PRN PO 06/06/17 14:15 07/06/17 14:14 Ondansetron HCl (Zofran Inj) 4 mg Q6H PRN IV 06/06/17 14:15 07/06/17 14:14 06/07/17 05:57 4 MG Polyethylene (Miralax Powder Packet) 17 gm DAILY PRN PO 06/06/17 14:15 07/06/17 14:14 Insulin Aspart (novoLOG ASPART) SLIDING SCALE If C... ACHS SC 06/06/17 16:15 07/06/17 16:14 06/07/17 16:33 4 UNITS Glucose (Glucose 40% Gel) 15-30 GRAMS 15 GRAMS... UD PRN PO 06/06/17 14:15 07/06/17 14:14 Glucose (Glucose Chew Tab) 4-8 Tablets 4 Tabl... UD PRN PO 06/06/17 14:15 07/06/17 14:14 Dextrose (Dextrose 50% 50ML Syringe) 25-50ML OF 50% DW IV FOR... UD PRN IV 06/06/17 14:15 07/06/17 14:14 Glucagon (Glucagon Inj) 1 mg UD PRN SQ 06/06/17 14:15 07/06/17 14:14 Levothyroxine Sodium (Synthroid Tab) 25 mcg TuTh@0600 PO 06/11/17 06:00 07/11/17 05:59 Insulin Glargine (Lantus Solostar Pen) 20 units BID SC 06/07/17 21:00 07/07/17 20:59 06/07/17 22:04 20 UNITS Objective Vital Signs Date Time Temp Pulse Resp B/P (MAP) Pulse Ox O2 Delivery O2 Flow Rate FiO2 06/08/17 04:00 Room Air 06/08/17 03:30 36.6 100 25 152/65 (94) 90 Room Air 06/08/17 00:27 92 Nasal Cannula 2.0 06/08/17 00:00 Room Air 06/07/17 23:30 36.7 67 16 121/54 (76) 82 Room Air 06/07/17 20:00 Room Air 06/07/17 19:34 36.6 68 18 137/60 (85) 95 Room Air 06/07/17 16:00 Room Air 06/07/17 15:04 36.7 63 16 141/63 (89) 94 Room Air 06/07/17 13:47 62 18 147/61 (89) 91 Room Air 06/07/17 13:35 65 18 125/50 (75) 96 Room Air 06/07/17 13:23 67 18 115/61 (79) 92 Nasal Cannula 2 06/07/17 12:19 36.8 66 18 146/64 (91) 96 Room Air 06/07/17 12:00 Room Air 06/07/17 11:39 36.4 53 16 133/55 (81) 90 Physical Exam General Appearance: WD/WN, no apparent distress Eyes: normal inspection ENT: normal ENT inspection Neck: supple, no adenopathy Respiratory/Chest: chest non-tender, lungs clear Cardiovascular: regular rate, rhythm, no edema, no gallop Abdomen: normal bowel sounds, non tender, soft Extremities: normal range of motion Skin: normal color Lymphatic: no adenopathy Laboratory Results Last 24 Hours Test 06/07/17 11:35 06/07/17 11:43 06/07/17 14:55 06/07/17 16:25 Bedside Glucose 184 mg/dl 166 mg/dl 218 mg/dl Hemoglobin 7.3 g/dL Hematocrit 22.6 % Magnesium Level 2.1 mg/dl Test 06/07/17 17:03 06/07/17 20:15 06/07/17 22:50 06/08/17 06:10 Hemoglobin 7.5 g/dL 7.2 g/dL Hematocrit 24.2 % 22.7 % Bedside Glucose 134 mg/dl 109 mg/dl Test 06/08/17 06:46 White Blood Count 7.05 K/uL Red Blood Count 2.59 M/uL Hemoglobin 7.9 g/dL Hematocrit 24.7 % Mean Corpuscular Volume 95.4 fL Mean Corpuscular Hemoglobin 30.5 pg Mean Corpuscular Hemoglobin Concent 32.0 g/dl RDW Standard Deviation 53.9 fL RDW Coefficient of Variation 15.8 % Platelet Count 224 K/uL Mean Platelet Volume 10.4 fL Sodium Level 140 mmol/L Potassium Level 3.5 mmol/L Chloride Level 102 mmol/L Carbon Dioxide Level 29 mmol/L Anion Gap 9.0 mmol/L Blood Urea Nitrogen 60 mg/dl Creatinine 7.33 mg/dl Est Creatinine Clear Calc Drug Dose 10.6 ml/min Estimated GFR () 7.6 Estimated GFR (Non- 6.6 BUN/Creatinine Ratio 8.1 Random Glucose 100 mg/dl Calcium Level 8.4 mg/dl Assessment and Plan 77 y/o male with a history of CAD, HTN, HLD, chronic diastolic CHF, COPD, ESRD on HD, anemia, DM II, anxiety/depression, hypothyroidism, and GERD who presents with melena, weakness, fatigue and SOB. Acute on chronic upper GI bleed, acute blood loss anemia--ongoing -Patient looks clinically well as he is ambulating the cheema this am. -No episodes of GI bleed. -Hemoglobin has been steady above 7. -Patient is ambulating and tolerating level. -Upper GI scope showed evidence of recent bleed in the gastric region. -will need to continue to monitor as patient has risks of rebleed. -GI consulted, appreciate recs: Continue PPI therapy. -Continue Protonix 40 mg IV BID -BP is stable -Trend H&H q6h -Will likely check hemoglobin at dialysis as an outpatient. -will not transfuse as hemoglobin is above 7. -Blatchford score of 7. Rockall score of 6 CAD, HTN, HLD--stable -Lisinopril on hold for now -Continue amlodipine 2.5 mg PO qd, hydralazine 50 mg PO TID, labetalol 300 mg PO BID, Crestor 20 mg PO qd -ASA on hold due to uppe gi bleed Chronic diastolic CHF--stable, no acute exacerbation -Continue Lasix 80 mg PO BID given recent blood products -Appears clinically dry, may need to hold Lasix if no further blood given COPD--stable, no exacerbation or wheezing -Continue home Xopenex/Atrovent nebs q6h ESRD on HD--stable -Consult nephrology, appreciate recs -Dialysis / (today) DM II--HgbA1c 5.8 on 06/07 -Pt on Levemir 50 units SC qam and 45 units SC qpm -will continue on Lantus 20 units SC BID for now as he is NPO and not eating much at home -Insulin sliding scale -Check BSGs q ac and qhs Anxiety/depression -Continue Lexapro 5 mg PO qd Hypothyroidism -Continue Synthroid 200 mcg PO 5x/week, 225 mcg PO DVT prophylaxis -Hold chemical prophylaxis due to acute bleed -JOSIE Fajardo Code Status -Level I, FULL RESUSCITATION STATUS I spent 45 managing this patient, this included face to face time and discussing case with specialists, Continued [facility] stay due to: other (anemia/ recent gi bleeed/ risk of rebleeding ) Discharge planning: uncertain
[2017-06-08] MEDS ORDERED: EPOETIN ALFA 10,000 UNITS/ML VIAL IV SCH (10:30)
--- NOTE | 2017-06-08 11:48 | Nephrology Progress Note ---
Nephrology Progress Note Date of Service Jun 08, 2017. Chief Complaint ESRD Subjective No acute events overnight. No complaints this morning. No bowel movement or signs of bleeding. Darnell has been out of bed and ambulating. He denies shortness of breath. He denies lightheadedness. He hopes to be discharged home today. Review of Systems A complete review of systems was performed. Pertinent positives are noted above. All other systems are negative. Vital Signs Last 8 Hrs Date Time Temp Pulse Resp B/P (MAP) Pulse Ox O2 Delivery O2 Flow Rate FiO2 06/08/17 11:15 62 135/63 06/08/17 11:00 60 139/63 06/08/17 10:45 61 138/63 06/08/17 10:30 60 137/65 06/08/17 10:15 60 147/68 06/08/17 10:00 59 151/67 06/08/17 09:45 61 149/67 06/08/17 09:30 61 163/69 06/08/17 09:15 63 156/69 06/08/17 09:11 63 157/72 06/08/17 09:02 36.7 64 157/67 (97) 06/08/17 08:01 Room Air 06/08/17 07:33 36.8 67 20 134/59 (84) 88 Room Air 06/08/17 04:00 Room Air Last Recorded Weight Weight (Kilograms): 100.600 Physical Exam General Appearance: WD/WN, no apparent distress Head: normocephalic, atraumatic Eyes: normal inspection, sclerae normal ENT: normal ENT inspection, pharynx normal Neck: supple, no JVD Respiratory/Chest: lungs clear, no respiratory distress, no accessory muscle use Cardiovascular: regular rate, rhythm, no gallop Abdomen/GI: non tender, soft Extremities/Musculoskelatal: normal inspection, no pedal edema Neurologic/Psych: alert, normal mood/affect Family History Diabetes mellitus Hypertension Kidney disease Kidney stones Social History Drug Use: none Marital Status: Housing Status: lives with family 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 Laboratory Results Past 24 Hours 06/07/17 17:03 06/07/17 22:50 06/08/17 06:46 06/08/17 06:46 Test 06/07/17 14:55 06/07/17 16:25 06/07/17 20:15 06/08/17 06:10 Bedside Glucose 166 mg/dl (70-99) 218 mg/dl (70-99) 134 mg/dl (70-99) 109 mg/dl (70-99) Test 06/08/17 06:46 Red Blood Count 2.59 M/uL (4.7-6.1) Mean Corpuscular Volume 95.4 fL (80-100) Mean Corpuscular Hemoglobin 30.5 pg (25-34) Mean Corpuscular Hemoglobin Concent 32.0 g/dl (32-36) RDW Standard Deviation 53.9 fL (36.4-46.3) RDW Coefficient of Variation 15.8 % (11.5-14.5) Mean Platelet Volume 10.4 fL (7.4-10.4) Anion Gap 9.0 mmol/L (3-11) Est Creatinine Clear Calc Drug Dose 10.6 ml/min Estimated GFR () 7.6 Estimated GFR (Non- 6.6 BUN/Creatinine Ratio 8.1 (10-20) Calcium Level 8.4 mg/dl (8.5-10.1) Allergies Coded Allergies: Metformin (Verified Adverse Reaction, Intermediate, CONFUSION, 06/06/17) Medications Current Inpatient Medications Medications (Trade) Dose Ordered Sig/Unique Route Start Time Stop Time Status Last Admin Dose Admin Calcium Acetate (Phoslo Cap) 1,334 mg AC PO 06/06/17 16:00 07/06/17 15:59 06/08/17 08:04 1,334 MG Calcium Carbonate (Tums Chew Tab) 500 mg AC PO 06/06/17 16:00 07/06/17 15:59 06/07/17 16:27 500 MG Escitalopram Oxalate (Lexapro Tab) 5 mg DAILY PO 06/07/17 09:00 07/07/17 08:59 06/08/17 08:06 5 MG Furosemide (Lasix Tab) 80 mg BID17 PO 06/06/17 17:00 07/06/17 16:59 06/08/17 08:05 80 MG Hydralazine HCl (Apresoline Tab) 50 mg TID PO 06/06/17 21:00 07/06/17 20:59 06/08/17 08:05 50 MG Ipratropium Saline (Atrovent Hfa Inhaler) 2 puffs Q6 INH 06/06/17 18:00 07/06/17 17:59 Labetalol HCl (Normodyne Tab) 300 mg BID PO 06/06/17 21:00 07/06/17 20:59 06/08/17 08:06 300 MG Levalbuterol (Xopenex Hfa Inhaler) 2 puffs Q6 INH 06/06/17 18:00 07/06/17 17:59 Levothyroxine Sodium (Synthroid Tab) 200 mcg DAILYBB PO 06/07/17 06:00 07/07/17 05:59 06/08/17 05:59 200 MCG Rosuvastatin Calcium (Crestor Tab) 20 mg QPM PO 06/06/17 21:00 07/06/17 20:59 06/07/17 22:03 20 MG Tamsulosin HCl (Flomax Cap) 0.4 mg QAM PO 06/07/17 09:00 07/07/17 08:59 06/08/17 08:05 0.4 MG Amlodipine Besylate (Norvasc Tab) 2.5 mg QAM PO 06/07/17 09:00 07/07/17 08:59 06/08/17 08:06 2.5 MG Pantoprazole Sodium 40 mg/ Syringe 10 ml @ 5 mls/min DAILY@ IV 06/06/17 21:00 07/06/17 20:59 06/07/17 22:02 5 MLS/MIN Acetaminophen (Tylenol Tab) 650 mg Q4H PRN PO 06/06/17 14:15 07/06/17 14:14 Al Hydrox/Mg Hydrox/Simethicone (Maalox Max Susp) 15 ml Q4H PRN PO 06/06/17 14:15 07/06/17 14:14 Magnesium Hydroxide (Milk Of Magnesia Susp) 30 ml Q12H PRN PO 06/06/17 14:15 07/06/17 14:14 Zolpidem Tartrate (Ambien Tab) 5 mg HSZ PRN PO 06/06/17 14:15 07/06/17 14:14 Ondansetron HCl (Zofran Inj) 4 mg Q6H PRN IV 06/06/17 14:15 07/06/17 14:14 06/07/17 05:57 4 MG Polyethylene (Miralax Powder Packet) 17 gm DAILY PRN PO 06/06/17 14:15 07/06/17 14:14 Insulin Aspart (novoLOG ASPART) SLIDING SCALE If C... ACHS SC 06/06/17 16:15 07/06/17 16:14 06/08/17 08:15 1 UNITS Glucose (Glucose 40% Gel) 15-30 GRAMS 15 GRAMS... UD PRN PO 06/06/17 14:15 07/06/17 14:14 Glucose (Glucose Chew Tab) 4-8 Tablets 4 Tabl... UD PRN PO 06/06/17 14:15 07/06/17 14:14 Dextrose (Dextrose 50% 50ML Syringe) 25-50ML OF 50% DW IV FOR... UD PRN IV 06/06/17 14:15 07/06/17 14:14 Glucagon (Glucagon Inj) 1 mg UD PRN SQ 06/06/17 14:15 07/06/17 14:14 Levothyroxine Sodium (Synthroid Tab) 25 mcg TuTh@0600 PO 06/11/17 06:00 07/11/17 05:59 Insulin Glargine (Lantus Solostar Pen) 20 units BID SC 06/07/17 21:00 07/07/17 20:59 06/08/17 08:16 20 UNITS Epoetin Zheng (Procrit Inj) 10,000 units TODAY@1030 IV 06/08/17 10:30 06/08/17 23:59 Impression (1) End-stage renal disease on hemodialysis (2) Anemia (3) GI bleed Recommendations END STAGE RENAL DISEASE: -- HD today per TTS schedule -- BP and volume status acceptable -- UF to eDW -- Protect L arm AVF ANEMIA: -- No signs of continued bleeding -- EPO with HD today HYPERTENSION: -- BP appropriate
--- NOTE | 2017-06-08 13:19 | GASTROENTEROLOGY PROGRESS NOTE ---
DATE: 06/08/2017 DATE: 06/08/2017 The patient has remained stable with his hemoglobin today is 7.9, which is stable. He has received 2 units of blood earlier in his hospital stay but none recently. Yesterday he had an EGD with some vascular ectasia in the antrum cauterized. There was some adherent blood in these areas but no other source of blood loss was found including extensive inspection of the duodenum and proximal jejunum. The area of the previous polypectomy site in the duodenum was clean based and healing. IMPRESSION: The patient's GI bleeding appears to be stable with no signs of recurrent bleeding at this point after being cauterized in the gastric antrum yesterday. Will continue to follow the patient during his hospital stay for any further signs of active bleeding.
[2017-06-08] MEDS: ROSUVASTATIN CALCIUM 20 MG TAB PO SCH (21:35)
[2017-06-09] VITALS (8 sets, daily range): BP systolic 122–161; BP diastolic 54–67; PULSE 64–74; TEMP 36.6–36.9; O2SAT 92–94
[2017-06-09] MEDS: IPRATROPIUM BROMIDE HFA INHALER INH SCH ×5 (06:00→23:41)
[2017-06-09] MEDS: LEValbuterol HFA 15GM INHALER INH SCH ×5 (06:00→23:42)
[2017-06-09] MEDS: INSULIN ASPART 100 UNITS/ML 3 ML PEN SC SCH ×4 (06:30→20:27)
[2017-06-09] MEDS: CALCIUM ACETATE 667MG GELCAP PO SCH ×3 (06:41→16:19)
[2017-06-09] MEDS: LEVOTHYROXINE 200 MCG TAB PO SCH (06:41)
[2017-06-09] MEDS: CALCIUM CARBONATE 500 MG CHEWABLE PO SCH ×3 (06:42→16:18)
[2017-06-09 07:38] LABS: HEMATOCRIT 24.5 % (42-52); HEMOGLOBIN 7.6 g/dL (14.0-18.0); MEAN CORPUSCULAR HEMOGLOBIN 29.5 pg (25-34); MEAN PLATELET VOLUME 10.5 fL (7.4-10.4); PLATELET COUNT 218 K/uL (130-400); RED CELL DISTRIBUTION WIDTH CV 16.1 % (11.5-14.5); RED CELL DISTRIBUTION WIDTH SD 54.2 fL (36.4-46.3); WHITE BLOOD COUNT 4.55 K/uL (4.8-10.8)
[2017-06-09] MEDS: INSULIN GLARGINE SOLOSTAR 100 UNITS/ML 3 ML PEN SC SCH ×2 (07:58→20:32)
[2017-06-09 08:14] LABS: CALCIUM 8.4 mg/dl (8.5-10.1); CREATININE 5.89 mg/dl (0.60-1.40); POTASSIUM 3.5 mmol/L (3.5-5.1)
[2017-06-09] MEDS: PANTOprazole INJ 40 MG in SYRINGE 0 ML IV SCH ×2 (08:31→20:24)
[2017-06-09] MEDS: LABETALOL HCL 100 MG TAB PO SCH ×2 (08:32→20:27)
[2017-06-09] MEDS: FUROSEMIDE 80 MG TAB PO SCH ×2 (08:32→16:20)
[2017-06-09] MEDS: TAMSULOSIN HCL 0.4 MG CAP PO SCH (08:32)
[2017-06-09] MEDS: AMLODIPINE BESYLATE 5 MG TAB PO SCH (08:32)
[2017-06-09] MEDS: ESCITALOPRAM OXALATE 10 MG TAB PO SCH (08:32)
--- NOTE | 2017-06-09 13:17 | Nephrology Progress Note ---
Nephrology Progress Note Date of Service Jun 09, 2017. Chief Complaint ESRD Subjective No acute events overnight. Augie is dressed and walking around his hospital room this morning. He states that he is ready to leave. He passed a brown, soft bowel movement this morning. He denies any other evidence of bleeding including melena or hematochezia. He denies lightheadedness or dizziness. He denies shortness of breath. Augie denies any abdominal pain. Appetite is good. Review of Systems A complete review of systems was performed. Pertinent positives are noted above. All other systems are negative. Vital Signs Last 8 Hrs Date Time Temp Pulse Resp B/P (MAP) Pulse Ox O2 Delivery O2 Flow Rate FiO2 06/09/17 08:00 Room Air 06/09/17 07:22 36.6 65 18 146/63 (90) 92 Room Air 06/09/17 05:50 92 Room Air 2.0 Last Recorded Weight Weight (Kilograms): 97.700 Physical Exam General Appearance: WD/WN, no apparent distress Head: normocephalic, atraumatic Eyes: normal inspection, sclerae normal ENT: normal ENT inspection, pharynx normal Neck: supple, no JVD Respiratory/Chest: lungs clear, no respiratory distress, no accessory muscle use Cardiovascular: regular rate, rhythm, no gallop Abdomen/GI: non tender, soft Extremities/Musculoskelatal: normal inspection, no pedal edema Neurologic/Psych: alert, normal mood/affect Family History Diabetes mellitus Hypertension Kidney disease Kidney stones Social History Drug Use: none Marital Status: Housing Status: lives with family 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 Laboratory Results Past 24 Hours 06/09/17 07:01 06/09/17 07:01 Test 06/08/17 13:18 06/08/17 16:30 06/08/17 20:18 06/09/17 07:01 Bedside Glucose 91 mg/dl (70-99) 223 mg/dl (70-99) 118 mg/dl (70-99) Red Blood Count 2.58 M/uL (4.7-6.1) Mean Corpuscular Volume 95.0 fL (80-100) Mean Corpuscular Hemoglobin 29.5 pg (25-34) Mean Corpuscular Hemoglobin Concent 31.0 g/dl (32-36) RDW Standard Deviation 54.2 fL (36.4-46.3) RDW Coefficient of Variation 16.1 % (11.5-14.5) Mean Platelet Volume 10.5 fL (7.4-10.4) Anion Gap 5.0 mmol/L (3-11) Est Creatinine Clear Calc Drug Dose 13.1 ml/min Estimated GFR () 10.0 Estimated GFR (Non- 8.6 BUN/Creatinine Ratio 6.3 (10-20) Calcium Level 8.4 mg/dl (8.5-10.1) Test 06/09/17 07:29 06/09/17 11:29 Bedside Glucose 118 mg/dl (70-99) 155 mg/dl (70-99) Allergies Coded Allergies: Metformin (Verified Adverse Reaction, Intermediate, CONFUSION, 06/06/17) Medications Current Inpatient Medications Medications (Trade) Dose Ordered Sig/Unique Route Start Time Stop Time Status Last Admin Dose Admin Calcium Acetate (Phoslo Cap) 1,334 mg AC PO 06/06/17 16:00 07/06/17 15:59 06/09/17 11:25 1,334 MG Calcium Carbonate (Tums Chew Tab) 500 mg AC PO 06/06/17 16:00 07/06/17 15:59 06/09/17 11:25 500 MG Escitalopram Oxalate (Lexapro Tab) 5 mg DAILY PO 06/07/17 09:00 07/07/17 08:59 06/09/17 08:32 5 MG Furosemide (Lasix Tab) 80 mg BID17 PO 06/06/17 17:00 07/06/17 16:59 06/09/17 08:32 80 MG Hydralazine HCl (Apresoline Tab) 50 mg TID PO 06/06/17 21:00 07/06/17 20:59 06/09/17 08:31 50 MG Ipratropium [place] (Atrovent Hfa Inhaler) 2 puffs Q6 INH 06/06/17 18:00 07/06/17 17:59 Labetalol HCl (Normodyne Tab) 300 mg BID PO 06/06/17 21:00 07/06/17 20:59 06/09/17 08:32 300 MG Levalbuterol (Xopenex Hfa Inhaler) 2 puffs Q6 INH 06/06/17 18:00 07/06/17 17:59 Levothyroxine Sodium (Synthroid Tab) 200 mcg DAILYBB PO 06/07/17 06:00 07/07/17 05:59 06/09/17 06:41 200 MCG Rosuvastatin Calcium (Crestor Tab) 20 mg QPM PO 06/06/17 21:00 07/06/17 20:59 06/08/17 21:35 20 MG Tamsulosin HCl (Flomax Cap) 0.4 mg QAM PO 06/07/17 09:00 07/07/17 08:59 06/09/17 08:32 0.4 MG Amlodipine Besylate (Norvasc Tab) 2.5 mg QAM PO 06/07/17 09:00 07/07/17 08:59 06/09/17 08:32 2.5 MG Pantoprazole Sodium 40 mg/ Syringe 10 ml @ 5 mls/min DAILY@ IV 06/06/17 21:00 07/06/17 20:59 06/09/17 08:31 5 MLS/MIN Acetaminophen (Tylenol Tab) 650 mg Q4H PRN PO 06/06/17 14:15 07/06/17 14:14 Al Hydrox/Mg Hydrox/Simethicone (Maalox Max Susp) 15 ml Q4H PRN PO 06/06/17 14:15 07/06/17 14:14 Magnesium Hydroxide (Milk Of Magnesia Susp) 30 ml Q12H PRN PO 06/06/17 14:15 07/06/17 14:14 Zolpidem Tartrate (Ambien Tab) 5 mg HSZ PRN PO 06/06/17 14:15 07/06/17 14:14 Ondansetron HCl (Zofran Inj) 4 mg Q6H PRN IV 06/06/17 14:15 07/06/17 14:14 06/07/17 05:57 4 MG Polyethylene (Miralax Powder Packet) 17 gm DAILY PRN PO 06/06/17 14:15 07/06/17 14:14 Insulin Aspart (novoLOG ASPART) SLIDING SCALE If C... ACHS SC 06/06/17 16:15 07/06/17 16:14 06/08/17 17:08 10 UNITS Glucose (Glucose 40% Gel) 15-30 GRAMS 15 GRAMS... UD PRN PO 06/06/17 14:15 07/06/17 14:14 Glucose (Glucose Chew Tab) 4-8 Tablets 4 Tabl... UD PRN PO 06/06/17 14:15 07/06/17 14:14 Dextrose (Dextrose 50% 50ML Syringe) 25-50ML OF 50% DW IV FOR... UD PRN IV 06/06/17 14:15 07/06/17 14:14 Glucagon (Glucagon Inj) 1 mg UD PRN SQ 06/06/17 14:15 07/06/17 14:14 Levothyroxine Sodium (Synthroid Tab) 25 mcg TuTh@0600 PO 06/11/17 06:00 07/11/17 05:59 Insulin Glargine (Lantus Solostar Pen) 20 units BID SC 06/07/17 21:00 07/07/17 20:59 06/08/17 08:16 20 UNITS Impression (1) End-stage renal disease on hemodialysis (2) Anemia (3) GI bleed Darnell is a 77 year-old male with ESRD on HD admitted with symptomatic acute blood loss anemia and GI bleed. EGD revealed gastric and duodenal polys as well as angiectasia. 2 units PRBC transfused on admission. H/H has been stable. Recommendations END STAGE RENAL DISEASE: -- HD TTS -- BP and volume status acceptable -- Metabolic profile within normal limits -- Protect L arm AVF ANEMIA: -- No signs of continued bleeding -- EPO with HD -- GI follow up pending; no sings of persistent GI bleed at this time -- Eid of care discussed with Dr. Ling this morning HYPERTENSION: -- BP appropriate
[2017-06-09] MEDS: ROSUVASTATIN CALCIUM 20 MG TAB PO SCH (20:26)
--- NOTE | 2017-06-09 22:15 | Progress Note ---
Subjective Date of Service: Jun 09, 2017. Subjective Pt evaluation today including: conversation w/ patient 77 yo male has no complaints today. He knows where he is, knows why he is here, would like to go home and is not confused. His however, states that he was very confused yesterday evening. He told her, he was in some new development, and needed to know his address. He then cursed at her and hung up. would like a urine analysis. Problem List Medical Problems: (1) Dependence on renal dialysis Status: Acute (2) Elevated troponin Status: Acute (3) Elevated troponin Status: Acute (4) Hyperglycemia due to type 2 diabetes mellitus Status: Acute (5) Leg pain, left Status: Acute (6) Pain of left calf Status: Acute (7) Pulmonary vascular congestion Status: Acute (8) Substernal chest pain Status: Acute (9) Uremia Status: Acute Review of Systems Constitutional: No fever, No chills Eyes: No worsening of vision Respiratory: No cough, No sputum Cardiac: No chest pain, No orthopnea Abdomen: No pain, No nausea Musculoskeletal: No joint pain Male : No dysuria Neurologic: No memory loss Psychiatric: No depression symptoms, No anhedonism Endo: No fatigue Skin: No rash, No itch All Other Systems: Reviewed and Negative Medications Current Inpatient Medications Medications (Trade) Dose Ordered Sig/Unique Route Start Time Stop Time Status Last Admin Dose Admin Calcium Acetate (Phoslo Cap) 1,334 mg AC PO 06/06/17 16:00 07/06/17 15:59 06/09/17 16:19 1,334 MG Calcium Carbonate (Tums Chew Tab) 500 mg AC PO 06/06/17 16:00 07/06/17 15:59 06/10/17 05:35 500 MG Escitalopram Oxalate (Lexapro Tab) 5 mg DAILY PO 06/07/17 09:00 07/07/17 08:59 06/09/17 08:32 5 MG Furosemide (Lasix Tab) 80 mg BID17 PO 06/06/17 17:00 07/06/17 16:59 06/09/17 16:20 80 MG Hydralazine HCl (Apresoline Tab) 50 mg TID PO 06/06/17 21:00 07/06/17 20:59 06/09/17 20:26 50 MG Ipratropium [place] (Atrovent Hfa Inhaler) 2 puffs Q6 INH 06/06/17 18:00 07/06/17 17:59 Labetalol HCl (Normodyne Tab) 300 mg BID PO 06/06/17 21:00 07/06/17 20:59 06/09/17 20:27 300 MG Levalbuterol (Xopenex Hfa Inhaler) 2 puffs Q6 INH 06/06/17 18:00 07/06/17 17:59 Levothyroxine Sodium (Synthroid Tab) 200 mcg DAILYBB PO 06/07/17 06:00 07/07/17 05:59 06/10/17 05:34 200 MCG Rosuvastatin Calcium (Crestor Tab) 20 mg QPM PO 06/06/17 21:00 07/06/17 20:59 06/09/17 20:26 20 MG Tamsulosin HCl (Flomax Cap) 0.4 mg QAM PO 06/07/17 09:00 07/07/17 08:59 06/09/17 08:32 0.4 MG Amlodipine Besylate (Norvasc Tab) 2.5 mg QAM PO 06/07/17 09:00 07/07/17 08:59 06/09/17 08:32 2.5 MG Pantoprazole Sodium 40 mg/ Syringe 10 ml @ 5 mls/min DAILY@09,21 IV 06/06/17 21:00 07/06/17 20:59 06/09/17 20:24 5 MLS/MIN Acetaminophen (Tylenol Tab) 650 mg Q4H PRN PO 06/06/17 14:15 07/06/17 14:14 Al Hydrox/Mg Hydrox/Simethicone (Maalox Max Susp) 15 ml Q4H PRN PO 06/06/17 14:15 07/06/17 14:14 Magnesium Hydroxide (Milk Of Magnesia Susp) 30 ml Q12H PRN PO 06/06/17 14:15 07/06/17 14:14 Zolpidem Tartrate (Ambien Tab) 5 mg HSZ PRN PO 06/06/17 14:15 07/06/17 14:14 Ondansetron HCl (Zofran Inj) 4 mg Q6H PRN IV 06/06/17 14:15 07/06/17 14:14 06/07/17 05:57 4 MG Polyethylene (Miralax Powder Packet) 17 gm DAILY PRN PO 06/06/17 14:15 07/06/17 14:14 Insulin Aspart (novoLOG ASPART) SLIDING SCALE If C... ACHS SC 06/06/17 16:15 07/06/17 16:14 06/08/17 17:08 10 UNITS Glucose (Glucose 40% Gel) 15-30 GRAMS 15 GRAMS... UD PRN PO 06/06/17 14:15 07/06/17 14:14 Glucose (Glucose Chew Tab) 4-8 Tablets 4 Tabl... UD PRN PO 06/06/17 14:15 07/06/17 14:14 Dextrose (Dextrose 50% 50ML Syringe) 25-50ML OF 50% DW IV FOR... UD PRN IV 06/06/17 14:15 07/06/17 14:14 Glucagon (Glucagon Inj) 1 mg UD PRN SQ 06/06/17 14:15 07/06/17 14:14 Levothyroxine Sodium (Synthroid Tab) 25 mcg TuTh@0600 PO 06/11/17 06:00 07/11/17 05:59 Insulin Glargine (Lantus Solostar Pen) 20 units BID SC 06/07/17 21:00 07/07/17 20:59 06/09/17 20:32 20 UNITS Objective Vital Signs Date Time Temp Pulse Resp B/P (MAP) Pulse Ox O2 Delivery O2 Flow Rate FiO2 06/09/17 20:22 74 157/56 (89) 06/09/17 16:00 94 Room Air 06/09/17 15:39 36.6 64 18 161/62 (95) 94 Room Air 06/09/17 13:18 65 122/54 (76) 06/09/17 08:00 Room Air 06/09/17 07:22 36.6 65 18 146/63 (90) 92 Room Air 06/09/17 05:50 92 Room Air 2.0 06/09/17 00:15 92 Room Air 2.0 06/08/17 23:58 36.5 71 20 160/69 (99) 92 Room Air 06/08/17 22:27 Room Air 06/08/17 22:19 36.8 68 18 172/70 (104) 96 Room Air 2.0 Physical Exam Comments: General Appearance: WD/WN, no apparent distress Eyes: normal inspection ENT: normal ENT inspection Neck: supple, no adenopathy Respiratory/Chest: chest non-tender, lungs clear Cardiovascular: regular rate, rhythm, no edema, no gallop Abdomen: normal bowel sounds, non tender, soft Extremities: normal range of motion Skin: normal color Lymphatic: no adenopathy Laboratory Results Last 24 Hours Test 06/09/17 07:01 06/09/17 07:29 06/09/17 11:29 06/09/17 13:50 White Blood Count 4.55 K/uL Red Blood Count 2.58 M/uL Hemoglobin 7.6 g/dL Hematocrit 24.5 % Mean Corpuscular Volume 95.0 fL Mean Corpuscular Hemoglobin 29.5 pg Mean Corpuscular Hemoglobin Concent 31.0 g/dl RDW Standard Deviation 54.2 fL RDW Coefficient of Variation 16.1 % Platelet Count 218 K/uL Mean Platelet Volume 10.5 fL Sodium Level 138 mmol/L Potassium Level 3.5 mmol/L Chloride Level 103 mmol/L Carbon Dioxide Level 30 mmol/L Anion Gap 5.0 mmol/L Blood Urea Nitrogen 36 mg/dl Creatinine 5.89 mg/dl Est Creatinine Clear Calc Drug Dose 13.1 ml/min Estimated GFR () 10.0 Estimated GFR (Non- 8.6 BUN/Creatinine Ratio 6.3 Random Glucose 115 mg/dl Calcium Level 8.4 mg/dl Bedside Glucose 118 mg/dl 155 mg/dl Urine Color YELLOW Urine Appearance CLEAR Urine pH 5.0 Urine Specific [place] 1.020 Urine Protein 3+ Urine Glucose (UA) 1+ Urine Ketones TRACE Urine Occult Blood NEG Urine Nitrite NEG Urine Bilirubin NEG Urine Urobilinogen NEG Urine Leukocyte Esterase TRACE Urine WBC (Auto) 5-10 /hpf Urine RBC (Auto) 5-10 /hpf Urine Hyaline Casts (Auto) 5-10 /lpf Urine Epithelial Cells (Auto) >30 /lpf Urine Bacteria (Auto) NEG Test 06/09/17 16:40 06/09/17 19:29 Bedside Glucose 185 mg/dl 201 mg/dl Assessment and Plan 77 y/o male with a history of CAD, HTN, HLD, chronic diastolic CHF, COPD, ESRD on HD, anemia, DM II, anxiety/depression, hypothyroidism, and GERD who presents with melena, weakness, fatigue and SOB. Acute on chronic upper GI bleed, acute blood loss anemia--ongoing -D.W with Nephro and GI. Despite looking well, patient has low reserve. Plan is to transfuse 2 unites tomorrow at dialysis. Specialists agree with plan. -Patient looks clinically well as he is ambulating the cheema this am. -No episodes of GI bleed. -Hemoglobin has been steady above 7. -Patient is ambulating and tolerating level. -Upper GI scope showed evidence of recent bleed in the gastric region. -will need to continue to monitor as patient has risks of rebleed. -GI consulted, appreciate recs: Continue PPI therapy. -Continue Protonix 40 mg IV BID -BP is stable -Trend h and h daily -Will likely check hemoglobin at dialysis as an outpatient. -will not transfuse as hemoglobin is above 7. CAD, HTN, HLD--stable -Lisinopril on hold for now -Continue amlodipine 2.5 mg PO qd, hydralazine 50 mg PO TID, labetalol 300 mg PO BID, Crestor 20 mg PO qd -ASA on hold due to uppe gi bleed Chronic diastolic CHF--stable, no acute exacerbation -Continue Lasix 80 mg PO BID given recent blood products -Appears clinically dry, may need to hold Lasix if no further blood given COPD--stable, no exacerbation or wheezing -Continue home Xopenex/Atrovent nebs q6h ESRD on HD--stable -Consult nephrology, appreciate recs -Dialysis / (today) DM II--HgbA1c 5.8 on 06/07 -Pt on Levemir 50 units SC qam and 45 units SC qpm -will continue on Lantus 20 units SC BID for now as he is NPO and not eating much at home -Insulin sliding scale -Check BSGs q ac and qhs Anxiety/depression -Continue Lexapro 5 mg PO qd Hypothyroidism -Continue Synthroid 200 mcg PO 5x/week, 225 mcg PO / -Brief episode of delirium: UTI is unlikely as patient only had a brief episode of confusion. Likely hospital acquired delirium. Patient is back to baseline. I discussed this with . Ordered UA but not suspecting this to be the cause. DVT prophylaxis -Hold chemical prophylaxis due to acute bleed -JOSIE sofie and SCDs Code Status -Level I, FULL RESUSCITATION STATUS I spent 40 minutes managing this patient, this included face to face time and discussing case with specialists. Disp: Discharge after transfusion. will need to have h and h checked during dialysis days. He appears to be very compliant with his dialysis. If required, he will then get transfusion at the transfusion center. Then see Dr. Sullivan as an outpatient. This will be done to prevent readmissions. Continued [facility] stay due to: other (anemia/ recent gi bleeed/ risk of rebleeding ) Discharge planning: uncertain
[2017-06-10] MEDS: LEValbuterol HFA 15GM INHALER INH SCH ×3 (05:33→17:38)
[2017-06-10] MEDS: IPRATROPIUM BROMIDE HFA INHALER INH SCH ×3 (05:33→17:38)
[2017-06-10] MEDS: LEVOTHYROXINE 200 MCG TAB PO SCH (05:34)
[2017-06-10] MEDS: CALCIUM CARBONATE 500 MG CHEWABLE PO SCH ×4 (05:35→16:20)
[2017-06-10 06:37] LABS: HEMATOCRIT 24.8 % (42-52); HEMOGLOBIN 7.7 g/dL (14.0-18.0); MEAN CELL VOLUME 95.4 fL (80-100); MEAN CORPUSCULAR HEMOGLOBIN 29.6 pg (25-34); MEAN PLATELET VOLUME 9.7 fL (7.4-10.4); PLATELET COUNT 219 K/uL (130-400); RED CELL DISTRIBUTION WIDTH CV 16.2 % (11.5-14.5); RED CELL DISTRIBUTION WIDTH SD 55.5 fL (36.4-46.3); WHITE BLOOD COUNT 5.76 K/uL (4.8-10.8)
[2017-06-10 07:21] LABS: CALCIUM 8.8 mg/dl (8.5-10.1); CREATININE 7.73 mg/dl (0.60-1.40); POTASSIUM 3.6 mmol/L (3.5-5.1)
[2017-06-10 07:50] VITALS: BP 163/59; PULSE 63; TEMP 36.7; O2SAT 91
[2017-06-10] MEDS: FUROSEMIDE 80 MG TAB PO SCH ×2 (08:08→16:19)
[2017-06-10] MEDS: PANTOprazole INJ 40 MG in SYRINGE 0 ML IV SCH (08:09)
[2017-06-10] MEDS: TAMSULOSIN HCL 0.4 MG CAP PO SCH (08:09)
[2017-06-10] MEDS: LABETALOL HCL 100 MG TAB PO SCH ×2 (08:10→21:11)
[2017-06-10] MEDS: ESCITALOPRAM OXALATE 10 MG TAB PO SCH (08:10)
[2017-06-10] MEDS: CALCIUM ACETATE 667MG GELCAP PO SCH ×3 (08:11→16:20)
[2017-06-10] MEDS: AMLODIPINE BESYLATE 5 MG TAB PO SCH (08:12)
[2017-06-10] MEDS: INSULIN GLARGINE SOLOSTAR 100 UNITS/ML 3 ML PEN SC SCH ×2 (08:17→21:14)
[2017-06-10] MEDS: INSULIN ASPART 100 UNITS/ML 3 ML PEN SC SCH ×4 (08:19→21:00)
[2017-06-10 09:34] VITALS: O2SAT 94
--- NOTE | 2017-06-10 11:52 | Nephrology Progress Note ---
Nephrology Progress Note Date of Service Jun 10, 2017. Chief Complaint Follow-up for end-stage renal disease on hemodialysis. Subjective Augie Was seen and examined in his room this morning. Overall he is feeling better. Hemoglobin continues to be below 8 and has been around 7.6-7.7. Denies any further episode of GI bleeding. Blood pressure slightly elevated. Review of Systems A complete review of systems was performed. Pertinent positives are noted above. All other systems are negative. Vital Signs Last 8 Hrs Date Time Temp Pulse Resp B/P (MAP) Pulse Ox O2 Delivery O2 Flow Rate FiO2 06/10/17 09:34 94 Room Air 06/10/17 07:50 36.7 63 18 163/59 (93) 91 Room Air Last Recorded Weight Weight (Kilograms): 97.700 Physical Exam GENERAL: Elderly male, AAA x 3, pleasant, healthy-appearing, not in any distress. NECK: Supple, no JVD. RESPIRATORY: Normal breathing efforts, no accessory muscle use, clear to auscultation bilaterally, no wheezes or rales. CARDIOVASCULAR: S1, S2 normal, rate rhythm regular. EXTREMITY: No lower extremity edema ACCESS: Left brachiocephalic AV fistula with thrill and bruit. NEURO: speech fluent. PSYCHIATRY: Normal mood and judgment Family History Diabetes mellitus Hypertension Kidney disease Kidney stones Social History Drug Use: none Marital Status: Housing Status: lives with family 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 Laboratory Results Past 24 Hours 06/10/17 06:25 06/10/17 06:25 Test 06/09/17 13:50 06/09/17 16:40 06/09/17 19:29 06/10/17 06:25 Urine Color YELLOW Urine Appearance CLEAR (CLEAR) Urine pH 5.0 (4.5-7.5) Urine Specific [place] 1.020 (1.000-1.030) Urine Protein 3+ (NEG) Urine Glucose (UA) 1+ (NEG) Urine Ketones TRACE (NEG) Urine Occult Blood NEG (NEG) Urine Nitrite NEG (NEG) Urine Bilirubin NEG (NEG) Urine Urobilinogen NEG (NEG) Urine Leukocyte Esterase TRACE (NEG) Urine WBC (Auto) 5-10 /hpf (0-5) Urine RBC (Auto) 5-10 /hpf (0-4) Urine Hyaline Casts (Auto) 5-10 /lpf (0-5) Urine Epithelial Cells (Auto) >30 /lpf (0-5) Urine Bacteria (Auto) NEG (NEG) Bedside Glucose 185 mg/dl (70-99) 201 mg/dl (70-99) Red Blood Count 2.60 M/uL (4.7-6.1) Mean Corpuscular Volume 95.4 fL (80-100) Mean Corpuscular Hemoglobin 29.6 pg (25-34) Mean Corpuscular Hemoglobin Concent 31.0 g/dl (32-36) RDW Standard Deviation 55.5 fL (36.4-46.3) RDW Coefficient of Variation 16.2 % (11.5-14.5) Mean Platelet Volume 9.7 fL (7.4-10.4) Anion Gap 9.0 mmol/L (3-11) Est Creatinine Clear Calc Drug Dose 10.0 ml/min Estimated GFR () 7.2 Estimated GFR (Non- 6.2 BUN/Creatinine Ratio 6.6 (10-20) Calcium Level 8.8 mg/dl (8.5-10.1) Test 06/10/17 07:28 06/10/17 11:19 Bedside Glucose 109 mg/dl (70-99) 136 mg/dl (70-99) Allergies Coded Allergies: Metformin (Verified Adverse Reaction, Intermediate, CONFUSION, 06/06/17) Medications Current Inpatient Medications Medications (Trade) Dose Ordered Sig/Unique Route Start Time Stop Time Status Last Admin Dose Admin Calcium Acetate (Phoslo Cap) 1,334 mg AC PO 06/06/17 16:00 07/06/17 15:59 06/10/17 08:11 1,334 MG Calcium Carbonate (Tums Chew Tab) 500 mg AC PO 06/06/17 16:00 07/06/17 15:59 06/10/17 05:35 500 MG Escitalopram Oxalate (Lexapro Tab) 5 mg DAILY PO 06/07/17 09:00 07/07/17 08:59 06/10/17 08:10 5 MG Furosemide (Lasix Tab) 80 mg BID17 PO 06/06/17 17:00 07/06/17 16:59 06/10/17 08:08 80 MG Hydralazine HCl (Apresoline Tab) 50 mg TID PO 06/06/17 21:00 07/06/17 20:59 06/10/17 08:09 50 MG Ipratropium [place] (Atrovent Hfa Inhaler) 2 puffs Q6 INH 06/06/17 18:00 07/06/17 17:59 Labetalol HCl (Normodyne Tab) 300 mg BID PO 06/06/17 21:00 07/06/17 20:59 06/10/17 08:10 300 MG Levalbuterol (Xopenex Hfa Inhaler) 2 puffs Q6 INH 06/06/17 18:00 07/06/17 17:59 Levothyroxine Sodium (Synthroid Tab) 200 mcg DAILYBB PO 06/07/17 06:00 07/07/17 05:59 06/10/17 05:34 200 MCG Rosuvastatin Calcium (Crestor Tab) 20 mg QPM PO 06/06/17 21:00 07/06/17 20:59 06/09/17 20:26 20 MG Tamsulosin HCl (Flomax Cap) 0.4 mg QAM PO 06/07/17 09:00 07/07/17 08:59 06/10/17 08:09 0.4 MG Amlodipine Besylate (Norvasc Tab) 2.5 mg QAM PO 06/07/17 09:00 07/07/17 08:59 06/10/17 08:12 2.5 MG Pantoprazole Sodium 40 mg/ Syringe 10 ml @ 5 mls/min DAILY@09,21 IV 06/06/17 21:00 07/06/17 20:59 06/10/17 08:09 5 MLS/MIN Acetaminophen (Tylenol Tab) 650 mg Q4H PRN PO 06/06/17 14:15 07/06/17 14:14 Al Hydrox/Mg Hydrox/Simethicone (Maalox Max Susp) 15 ml Q4H PRN PO 06/06/17 14:15 07/06/17 14:14 Magnesium Hydroxide (Milk Of Magnesia Susp) 30 ml Q12H PRN PO 06/06/17 14:15 07/06/17 14:14 Zolpidem Tartrate (Ambien Tab) 5 mg HSZ PRN PO 06/06/17 14:15 07/06/17 14:14 Ondansetron HCl (Zofran Inj) 4 mg Q6H PRN IV 06/06/17 14:15 07/06/17 14:14 06/07/17 05:57 4 MG Polyethylene (Miralax Powder Packet) 17 gm DAILY PRN PO 06/06/17 14:15 07/06/17 14:14 Insulin Aspart (novoLOG ASPART) SLIDING SCALE If C... ACHS SC 06/06/17 16:15 07/06/17 16:14 06/10/17 08:19 2 UNITS Glucose (Glucose 40% Gel) 15-30 GRAMS 15 GRAMS... UD PRN PO 06/06/17 14:15 07/06/17 14:14 Glucose (Glucose Chew Tab) 4-8 Tablets 4 Tabl... UD PRN PO 06/06/17 14:15 07/06/17 14:14 Dextrose (Dextrose 50% 50ML Syringe) 25-50ML OF 50% DW IV FOR... UD PRN IV 06/06/17 14:15 07/06/17 14:14 Glucagon (Glucagon Inj) 1 mg UD PRN SQ 06/06/17 14:15 07/06/17 14:14 Levothyroxine Sodium (Synthroid Tab) 25 mcg TuTh@0600 PO 06/11/17 06:00 07/11/17 05:59 Insulin Glargine (Lantus Solostar Pen) 20 units BID SC 06/07/17 21:00 07/07/17 20:59 06/10/17 08:17 20 UNITS Impression (1) End-stage renal disease on hemodialysis (2) Anemia (3) GI bleed Darnell is a 77 year-old male with ESRD on HD admitted with symptomatic acute blood loss anemia and GI bleed. EGD revealed gastric and duodenal polys as well as angiectasia. 2 units PRBC transfused on admission. H/H has been stable. Recommendations -- HD TTS --as hemoglobin staying relatively stable but low, persistently below 8, will plan for blood transfusion with dialysis tomorrow morning and if patient otherwise stable after dialysis and blood transfusion plan for discharge tomorrow afternoon -- BP and volume status acceptable -- Metabolic profile within normal limits -- Protect L arm AVF -- EPO with HD
[2017-06-10 14:12] VITALS: BP 153/61; PULSE 64
--- NOTE | 2017-06-10 14:25 | Hospitalist Progress Note ---
Hospitalist Progress Note Date of Service Jun 10, 2017. Subjective Pt evaluation today including: conversation w/ patient, physical exam, chart review, lab review, review of studies, review of inpatient medication list Patient seen and evaluated. No acute events overnight. Hgb remains stable but low and plan for transfusion with dialysis on 06/11 Patient reports feeling much better compared to admission and is eager to return home. Verbalizes no complaints. States Novolog causes acute numbness/tingling in fingers and legs but appears is on this at home too? Constitutional: No fever, No chills Respiratory: No shortness of breath Cardiovascular: No chest pain Abdomen: No pain, No nausea, No vomiting, No diarrhea, No constipation Musculoskeletal: No swelling, No calf pain Heme: No abnormal bleeding/bruising Medications Current Inpatient Medications Medications (Trade) Dose Ordered Sig/Unique Route Start Time Stop Time Status Last Admin Dose Admin Calcium Acetate (Phoslo Cap) 1,334 mg AC PO 06/06/17 16:00 07/06/17 15:59 06/10/17 12:25 1,334 MG Calcium Carbonate (Tums Chew Tab) 500 mg AC PO 06/06/17 16:00 07/06/17 15:59 06/10/17 05:35 500 MG Escitalopram Oxalate (Lexapro Tab) 5 mg DAILY PO 06/07/17 09:00 07/07/17 08:59 06/10/17 08:10 5 MG Furosemide (Lasix Tab) 80 mg BID17 PO 06/06/17 17:00 07/06/17 16:59 06/10/17 08:08 80 MG Hydralazine HCl (Apresoline Tab) 50 mg TID PO 06/06/17 21:00 07/06/17 20:59 06/10/17 14:11 50 MG Ipratropium [place] (Atrovent Hfa Inhaler) 2 puffs Q6 INH 06/06/17 18:00 07/06/17 17:59 Labetalol HCl (Normodyne Tab) 300 mg BID PO 06/06/17 21:00 07/06/17 20:59 06/10/17 08:10 300 MG Levalbuterol (Xopenex Hfa Inhaler) 2 puffs Q6 INH 06/06/17 18:00 07/06/17 17:59 Levothyroxine Sodium (Synthroid Tab) 200 mcg DAILYBB PO 06/07/17 06:00 07/07/17 05:59 06/10/17 05:34 200 MCG Rosuvastatin Calcium (Crestor Tab) 20 mg QPM PO 06/06/17 21:00 07/06/17 20:59 06/09/17 20:26 20 MG Tamsulosin HCl (Flomax Cap) 0.4 mg QAM PO 06/07/17 09:00 07/07/17 08:59 06/10/17 08:09 0.4 MG Amlodipine Besylate (Norvasc Tab) 2.5 mg QAM PO 06/07/17 09:00 07/07/17 08:59 06/10/17 08:12 2.5 MG Pantoprazole Sodium 40 mg/ Syringe 10 ml @ 5 mls/min DAILY@ IV 06/06/17 21:00 07/06/17 20:59 06/10/17 08:09 5 MLS/MIN Acetaminophen (Tylenol Tab) 650 mg Q4H PRN PO 06/06/17 14:15 07/06/17 14:14 Al Hydrox/Mg Hydrox/Simethicone (Maalox Max Susp) 15 ml Q4H PRN PO 06/06/17 14:15 07/06/17 14:14 Magnesium Hydroxide (Milk Of Magnesia Susp) 30 ml Q12H PRN PO 06/06/17 14:15 07/06/17 14:14 Zolpidem Tartrate (Ambien Tab) 5 mg HSZ PRN PO 06/06/17 14:15 07/06/17 14:14 Ondansetron HCl (Zofran Inj) 4 mg Q6H PRN IV 06/06/17 14:15 07/06/17 14:14 06/07/17 05:57 4 MG Polyethylene (Miralax Powder Packet) 17 gm DAILY PRN PO 06/06/17 14:15 07/06/17 14:14 Insulin Aspart (novoLOG ASPART) SLIDING SCALE If C... ACHS SC 06/06/17 16:15 07/06/17 16:14 06/10/17 08:19 2 UNITS Glucose (Glucose 40% Gel) 15-30 GRAMS 15 GRAMS... UD PRN PO 06/06/17 14:15 07/06/17 14:14 Glucose (Glucose Chew Tab) 4-8 Tablets 4 Tabl... UD PRN PO 06/06/17 14:15 07/06/17 14:14 Dextrose (Dextrose 50% 50ML Syringe) 25-50ML OF 50% DW IV FOR... UD PRN IV 06/06/17 14:15 07/06/17 14:14 Glucagon (Glucagon Inj) 1 mg UD PRN SQ 06/06/17 14:15 07/06/17 14:14 Levothyroxine Sodium (Synthroid Tab) 25 mcg TuTh@0600 PO 06/11/17 06:00 07/11/17 05:59 Insulin Glargine (Lantus Solostar Pen) 20 units BID SC 06/07/17 21:00 07/07/17 20:59 06/10/17 08:17 20 UNITS Objective Vital Signs Date Time Temp Pulse Resp B/P (MAP) Pulse Ox O2 Delivery O2 Flow Rate FiO2 06/10/17 14:12 64 153/61 (91) 06/10/17 09:34 94 Room Air 06/10/17 07:50 36.7 63 18 163/59 (93) 91 Room Air 06/09/17 23:30 Room Air 06/09/17 23:28 36.9 66 20 153/67 (95) 92 Room Air 06/09/17 20:22 74 157/56 (89) 06/09/17 16:00 94 Room Air 06/09/17 15:39 36.6 64 18 161/62 (95) 94 Room Air Physical Exam General Appearance: WD/WN, no apparent distress Eyes: sclerae normal ENT: hearing grossly normal Neck: supple, no JVD, trachea midline Respiratory/Chest: lungs clear, normal breath sounds, no respiratory distress, no accessory muscle use Cardiovascular: regular rate, rhythm, + systolic murmur Abdomen: normal bowel sounds, non tender, soft Extremities: + pertinent finding (LUE fistula +thrill +bruit) Neurologic/Psychiatric: alert, oriented x 3 Skin: normal color, warm/dry Laboratory Results Last 24 Hours Test 06/09/17 16:40 06/09/17 19:29 06/10/17 06:25 06/10/17 07:28 Bedside Glucose 185 mg/dl 201 mg/dl 109 mg/dl White Blood Count 5.76 K/uL Red Blood Count 2.60 M/uL Hemoglobin 7.7 g/dL Hematocrit 24.8 % Mean Corpuscular Volume 95.4 fL Mean Corpuscular Hemoglobin 29.6 pg Mean Corpuscular Hemoglobin Concent 31.0 g/dl RDW Standard Deviation 55.5 fL RDW Coefficient of Variation 16.2 % Platelet Count 219 K/uL Mean Platelet Volume 9.7 fL Sodium Level 139 mmol/L Potassium Level 3.6 mmol/L Chloride Level 103 mmol/L Carbon Dioxide Level 27 mmol/L Anion Gap 9.0 mmol/L Blood Urea Nitrogen 51 mg/dl Creatinine 7.73 mg/dl Est Creatinine Clear Calc Drug Dose 10.0 ml/min Estimated GFR () 7.2 Estimated GFR (Non- 6.2 BUN/Creatinine Ratio 6.6 Random Glucose 103 mg/dl Calcium Level 8.8 mg/dl Test 06/10/17 11:19 Bedside Glucose 136 mg/dl Assessment and Plan 77 y/o male with a history of CAD, HTN, HLD, chronic diastolic CHF, COPD, ESRD on HD, anemia, DM II, anxiety/depression, hypothyroidism, and GERD who presents with melena, weakness, fatigue and SOB. Acute on Chronic Upper GI Bleed with Acute Blood Loss Anemia: STABLE - Plan for transfusion with dialysis on 06/11 and likely D/C home afterwards - Hgb remains in the 7s at this time and reporting no symptoms and reporting feeling better compared to day of admission - Pantoprazole 40 mg BID - GI following - completed scope with cauterization of vascular ectasia CAD/HTN/HLD: STABLE - Norvasc 2.5 mg daily, Hydralazine 50 mg TID, Labetaolol 300 mg BID Chronic Diatolic CHF without Exacerbation: STABLE - Lasix 80 mg BID COPD without Exacerbation: STABLE - Xopenex and Atrovent inhalers ESRD on HD (T, , Sat): - Phoslo caps - Nephrology following - plan for transfusion with dialysis on 06/11 T2DM: A1c 5.8 - Lantus 20 units SC BID and SSI - Reporting numbness/tingling with Novolog but per outpatient records he is one this medication? Likely has underlying neuropathy but not sure if this is necessarily causing accute issues? Delirium: RESOLVED - UA was unremarkable - back to baseline and will continue to monitor DVT Prophylaxis: SCDs Code Status: FULL RESUSCITATION Disposition: Transfusion with dialysis tomorrow - if well tolerated with D/C Continued [facility] stay due to: multiple IV medications needed Discharge planning: home
[2017-06-10 15:45] VITALS: BP 150/70; PULSE 59; TEMP 37.2; O2SAT 96
[2017-06-10 16:10] VITALS: O2SAT 96
--- NOTE | 2017-06-10 18:42 | GASTROENTEROLOGY PROGRESS NOTE ---
DATE: 06/10/2017 Mr. Mcintyre is doing well. His hemoglobin remains stable in the mid 7 range. He reports no further bleeding or black stools and actually has returned to brown stools, but he has received 2 units of packed red blood cells. The patient does not recall a prior small bowel capsule endoscopy and had undergone a push enteroscopy by Dr. White on 06/07/2017, which revealed small sessile polyps in the stomach, bleeding angiodysplasias in the prepyloric stomach area. Post-polypectomy site was identified in the second portion and large nonbleeding diverticula in the duodenal portion. The scope was advanced to the mid jejunum. The does not remember a prior capsule study. He did have a colonoscopy by Dr. Hernandez in December 2015, which revealed small polyps. The patient received 2 units of packed red blood cells since admission. Currently his hemoglobin in the mid 7. CURRENT MEDICATIONS: Levothyroxine, pantoprazole, insulin, Lexapro, tamsulosin, Norvasc, labetalol, Rosuvastatin, polyethylene glycol. PHYSICAL EXAMINATION: VITAL SIGNS: Today blood pressure is 150/70, respirations 18, pulse 59, temperature 37.2, 96% on room air. GENERAL: The patient is awake, alert and oriented x3. HEENT: Sclerae anicteric, conjunctivae moist. Oral mucosa moist. HEART: Normal S1, S2. LUNGS: Clear to auscultation. ABDOMEN: Soft, flat, nontender, nondistended with good bowel sounds. EXTREMITIES: Without clubbing, cyanosis or edema. RECTAL: Deferred at this time. IMPRESSION AND PLAN: The patient's hemoglobin remains in the mid 7 range and has received a total of 2 units of packed red blood cells. There has been no further bleeding. Push enteroscopy did reveal antral ectasias, that underwent cautery. The patient's last colonoscopy was December of 2015 with polyps removed. He does not recall a video capsule. I make the following recommendations; if patient is to be discharged tomorrow, as an outpatient we plan to see patient back in the office and with consideration for an outpatient colonoscopy to exclude any AV malformations that may have formed in the interim. In addition, an outpatient small bowel video capsule endoscopy is prudent to assess for other sources. If located, then these may require a balloon-assisted endoscopy at [place]. All questions answered. KENNEDID
[2017-06-10] MEDS: ROSUVASTATIN CALCIUM 20 MG TAB PO SCH (21:10)
[2017-06-10] MEDS: PANTOprazole SOD 40 MG TAB PO SCH (21:14)
[2017-06-11] VITALS (23 sets, daily range): BP systolic 140–190; BP diastolic 59–87; PULSE 52–68; TEMP 36.5–36.9; O2SAT 90–97
[2017-06-11] MEDS: LEValbuterol HFA 15GM INHALER INH SCH ×3 (06:00→12:00)
[2017-06-11] MEDS: IPRATROPIUM BROMIDE HFA INHALER INH SCH ×3 (06:00→12:00)
[2017-06-11] MEDS ORDERED: LEVOTHYROXINE 25 MCG TAB PO SCH (06:00)
[2017-06-11] MEDS: LEVOTHYROXINE 200 MCG TAB PO SCH (06:13)
[2017-06-11] MEDS: CALCIUM CARBONATE 500 MG CHEWABLE PO SCH ×3 (06:14→16:00)
[2017-06-11] MEDS: CALCIUM ACETATE 667MG GELCAP PO SCH ×3 (06:14→16:00)
[2017-06-11 07:39] LABS: HEMATOCRIT 24.7 % (42-52); HEMOGLOBIN 7.7 g/dL (14.0-18.0); MEAN CORPUSCULAR HEMOGLOBIN 29.6 pg (25-34); MEAN CORPUSCULAR HGB CONC 31.2 g/dl (32-36); PLATELET COUNT 221 K/uL (130-400); RED CELL DISTRIBUTION WIDTH CV 16.3 % (11.5-14.5); RED CELL DISTRIBUTION WIDTH SD 55.9 fL (36.4-46.3); WHITE BLOOD COUNT 5.57 K/uL (4.8-10.8)
[2017-06-11] MEDS: PANTOprazole SOD 40 MG TAB PO SCH ×2 (08:42→17:05)
[2017-06-11] MEDS: ESCITALOPRAM OXALATE 10 MG TAB PO SCH (08:42)
[2017-06-11] MEDS: FUROSEMIDE 80 MG TAB PO SCH ×2 (08:43→17:04)
[2017-06-11] MEDS: TAMSULOSIN HCL 0.4 MG CAP PO SCH (08:43)
[2017-06-11] MEDS: LABETALOL HCL 100 MG TAB PO SCH (08:43)
[2017-06-11] MEDS: AMLODIPINE BESYLATE 5 MG TAB PO SCH (08:43)
[2017-06-11] MEDS: INSULIN ASPART 100 UNITS/ML 3 ML PEN SC SCH ×3 (08:44→16:00)
[2017-06-11] MEDS: INSULIN GLARGINE SOLOSTAR 100 UNITS/ML 3 ML PEN SC SCH (08:47)
[2017-06-11 09:16] LABS: CALCIUM 9.1 mg/dl (8.5-10.1); CREATININE 8.83 mg/dl (0.60-1.40); POTASSIUM 3.3 mmol/L (3.5-5.1)
--- NOTE | 2017-06-11 10:50 | Nephrology Progress Note ---
Nephrology Progress Note Date of Service Jun 11, 2017. Chief Complaint Follow-up for end-stage renal disease on hemodialysis. Subjective Augie Was seen and examined in his room this morning. Overall he is feeling better. Hemoglobin continues to be below 8 and has been around 7.7. Denies any further episode of GI bleeding. Blood pressure slightly elevated. Review of Systems A complete review of systems was performed. Pertinent positives are noted above. All other systems are negative. Vital Signs Last 8 Hrs Date Time Temp Pulse Resp B/P (MAP) Pulse Ox O2 Delivery O2 Flow Rate FiO2 06/11/17 09:37 90 Room Air 06/11/17 07:42 36.5 59 18 151/60 (90) 90 Room Air Last Recorded Weight Weight (Kilograms): 98.100 Physical Exam GENERAL: Elderly male, AAA x 3, pleasant, healthy-appearing, not in any distress. NECK: Supple, no JVD. RESPIRATORY: Normal breathing efforts, no accessory muscle use, clear to auscultation bilaterally, no wheezes or rales. CARDIOVASCULAR: S1, S2 normal, rate rhythm regular. EXTREMITY: No lower extremity edema ACCESS: Left radiocephalic AV fistula with thrill and bruit. NEURO: speech fluent. PSYCHIATRY: Normal mood and judgment Family History Diabetes mellitus Hypertension Kidney disease Kidney stones Social History Drug Use: none Marital Status: Housing Status: lives with family 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 Laboratory Results Past 24 Hours 06/11/17 06:53 06/11/17 06:53 Test 06/10/17 11:19 06/10/17 16:40 06/10/17 19:58 06/11/17 06:53 Bedside Glucose 136 mg/dl (70-99) 161 mg/dl (70-99) 226 mg/dl (70-99) Red Blood Count 2.60 M/uL (4.7-6.1) Mean Corpuscular Volume 95.0 fL (80-100) Mean Corpuscular Hemoglobin 29.6 pg (25-34) Mean Corpuscular Hemoglobin Concent 31.2 g/dl (32-36) RDW Standard Deviation 55.9 fL (36.4-46.3) RDW Coefficient of Variation 16.3 % (11.5-14.5) Mean Platelet Volume 10.0 fL (7.4-10.4) Anion Gap 10.0 mmol/L (3-11) Est Creatinine Clear Calc Drug Dose 8.8 ml/min Estimated GFR () 6.1 Estimated GFR (Non- 5.3 BUN/Creatinine Ratio 7.3 (10-20) Calcium Level 9.1 mg/dl (8.5-10.1) Test 06/11/17 07:26 Bedside Glucose 72 mg/dl (70-99) Allergies Coded Allergies: Metformin (Verified Adverse Reaction, Intermediate, CONFUSION, 06/06/17) Medications Current Inpatient Medications Medications (Trade) Dose Ordered Sig/Unique Route Start Time Stop Time Status Last Admin Dose Admin Calcium Acetate (Phoslo Cap) 1,334 mg AC PO 06/06/17 16:00 07/06/17 15:59 06/11/17 06:14 1,334 MG Calcium Carbonate (Tums Chew Tab) 500 mg AC PO 06/06/17 16:00 07/06/17 15:59 06/10/17 05:35 500 MG Escitalopram Oxalate (Lexapro Tab) 5 mg DAILY PO 06/07/17 09:00 07/07/17 08:59 06/11/17 08:42 5 MG Furosemide (Lasix Tab) 80 mg BID17 PO 06/06/17 17:00 07/06/17 16:59 06/11/17 08:43 80 MG Hydralazine HCl (Apresoline Tab) 50 mg TID PO 06/06/17 21:00 07/06/17 20:59 06/11/17 08:43 50 MG Ipratropium [place] (Atrovent Hfa Inhaler) 2 puffs Q6 INH 06/06/17 18:00 07/06/17 17:59 Labetalol HCl (Normodyne Tab) 300 mg BID PO 06/06/17 21:00 07/06/17 20:59 06/11/17 08:43 300 MG Levalbuterol (Xopenex Hfa Inhaler) 2 puffs Q6 INH 06/06/17 18:00 07/06/17 17:59 Levothyroxine Sodium (Synthroid Tab) 200 mcg DAILYBB PO 06/07/17 06:00 07/07/17 05:59 06/11/17 06:13 200 MCG Rosuvastatin Calcium (Crestor Tab) 20 mg QPM PO 1/4/18 21:00 07/06/17 20:59 06/10/17 21:10 20 MG Tamsulosin HCl (Flomax Cap) 0.4 mg QAM PO 06/07/17 09:00 07/07/17 08:59 06/11/17 08:43 0.4 MG Amlodipine Besylate (Norvasc Tab) 2.5 mg QAM PO 06/07/17 09:00 07/07/17 08:59 06/11/17 08:43 2.5 MG Acetaminophen (Tylenol Tab) 650 mg Q4H PRN PO 06/06/17 14:15 07/06/17 14:14 Al Hydrox/Mg Hydrox/Simethicone (Maalox Max Susp) 15 ml Q4H PRN PO 06/06/17 14:15 07/06/17 14:14 Magnesium Hydroxide (Milk Of Magnesia Susp) 30 ml Q12H PRN PO 06/06/17 14:15 07/06/17 14:14 Zolpidem Tartrate (Ambien Tab) 5 mg HSZ PRN PO 06/06/17 14:15 07/06/17 14:14 06/11/17 02:28 5 MG Ondansetron HCl (Zofran Inj) 4 mg Q6H PRN IV 06/06/17 14:15 07/06/17 14:14 06/07/17 05:57 4 MG Polyethylene (Miralax Powder Packet) 17 gm DAILY PRN PO 06/06/17 14:15 07/06/17 14:14 Insulin Aspart (novoLOG ASPART) SLIDING SCALE If C... ACHS SC 06/06/17 16:15 07/06/17 16:14 06/10/17 08:19 2 UNITS Glucose (Glucose 40% Gel) 15-30 GRAMS 15 GRAMS... UD PRN PO 06/06/17 14:15 07/06/17 14:14 Glucose (Glucose Chew Tab) 4-8 Tablets 4 Tabl... UD PRN PO 06/06/17 14:15 07/06/17 14:14 Dextrose (Dextrose 50% 50ML Syringe) 25-50ML OF 50% DW IV FOR... UD PRN IV 06/06/17 14:15 07/06/17 14:14 Glucagon (Glucagon Inj) 1 mg UD PRN SQ 06/06/17 14:15 07/06/17 14:14 Levothyroxine Sodium (Synthroid Tab) 25 mcg TuTh@0600 PO 06/11/17 06:00 07/11/17 05:59 06/11/17 06:14 25 MCG Insulin Glargine (Lantus Solostar Pen) 20 units BID SC 06/07/17 21:00 07/07/17 20:59 06/11/17 08:47 20 UNITS Pantoprazole Sodium (Protonix Tab) 40 mg BID PO 06/10/17 21:00 07/10/17 20:59 06/11/17 08:42 40 MG Impression (1) End-stage renal disease on hemodialysis (2) Anemia (3) GI bleed Darnell is a 77 year-old male with ESRD on HD admitted with symptomatic acute blood loss anemia and GI bleed. EGD revealed gastric and duodenal polys as well as angiectasia. 2 units PRBC transfused on admission. H/H has been stable. Recommendations -- hemodialysis this morning as his regular schedule, will give 2 units of blood transfusion as hemoglobin staying at 7.7 -- BP and volume status acceptable -- Metabolic profile within normal limits -- Protect L arm AVF -- EPO with HD --okay to be discharged after dialysis, next dialysis will be at outpatient dialysis unit on .
--- NOTE | 2017-06-11 12:10 | Discharge Instructions ---
Discharge Instructions Date of Service Jun 11, 2017. Admission Reason for Admission: Gi Bleed Discharge Discharge Diagnosis / Problem: Upper GI Bleed Discharge Goals Goal(s): Decrease discomfort, Improve function, Increase independence Activity Recommendations Activity Limitations: resume your previous activity . Instructions / Follow-Up Instructions / Follow-Up Upper GI Bleed: - You had a scope done that showed some vascular areas that were recently bleeding and these were cauterized. - You did receive blood transfusions to help bring your blood counts up. - You will follow-up with the GI doctors to consider a colonoscopy and/or video capsule study to further evaluate for areas that may be prone to bleeding - Recommend to hold your aspirin for the next 7 days. You may resume it then but would monitor for any dark colored stools and hold your aspirin and talk with your doctor - You will be provided with a prescription for Protonix 40 mg twice a day for the next 14 days. Your family doctor or GI doctor may want you to continue this longer and can discuss with them. Diabetes: - Your A1c is 5.8 which is a great number. Concern would be that you can have low sugars that can cause problems - Would STOP your Novolog as your already have and continue your Levemir. Please monitor your sugars and discuss with your family doctor for necessary adjustments Current Hospital Diet Patient's current hospital diet: Low Fiber Diet Discharge Diet Recommended Diet: Low Fiber Diet Procedures Procedures Performed: EGD PUSH ENTEROSCOPY WITH BICAP Pending Studies Studies pending at discharge: no Laboratory Results Hemoglobin A1c Test 06/07/17 05:03 Range/Units Estimated Average Glucose 120 mg/dl Hemoglobin A1c 5.8 H 4.5-5.6 % Lipid Panel Test 05/22/17 09:43 Range/Units Triglycerides Level 90 0-150 mg/dl Cholesterol Level 73 0-200 mg/dl HDL Cholesterol 44 mg/dl Cholesterol/HDL Ratio 1.7 LDL Cholesterol, Calculated 11 mg/dl Medical Emergencies . Who to Call and When: Medical Emergencies: If at any time you feel your situation is an emergency, please call 911 immediately. . Non-Emergent Contact Non-Emergency issues call your: Primary Care Provider Call Non-Emergent contact if: you have a fever, your pain is concerning you, you have any medication questions . . "Provider Documentation" section prepared by Brigid Costa. . VTE Core Measure Inpt VTE Proph given/why not?: SCD's
[2017-06-11] MEDS ORDERED: PRT40 PO (12:31)
--- NOTE | 2017-06-11 16:18 | Discharge Summary ---
Discharge Summary Date of Service Jun 11, 2017. Discharge Summary Admission Date: Jun 06, 2017 at 14:19 Discharge Date: Jun 11, 2017 Discharge Disposition: Home Principal Diagnosis: Acute GI Bleed Problems/Secondary Diagnoses: Medical Problems: (1) Anemia (2) Asthma (3) Chronic Kidney Disease, Unspecified (4) COPD exacerbation (5) Diab Cheryl Wo Compl, Type Ii Or Unspec Type, Not Uncntrld (6) Diabetes (7) End-stage renal disease on hemodialysis (8) Epistaxis (9) Esophageal Reflux (10) GI bleed (11) Heart disease (12) Hypertension (13) Hypertension Nos (14) Secondary hyperparathyroidism of renal origin Immunizations: Have You Had Influenza Vaccine: Unknown History of Tetanus Vaccine?: unknown History of Pneumococcal: Yes Pneumococcal Date: Dec 19, 2007 History of Hepatitis B Vaccine: Unknown Procedures: EGD: - Normal esophagus. - Multiple gastric polyps. - A few recently bleeding angioectasias in the stomach. Treated with a heater probe. - Normal examined duodenum. - Normal examined jejunum. - No specimens collected. Consultations: 1. Nephrology 2. GI Medication Reconciliation New Medications: Pantoprazole (Pantoprazole Sodium) 40 Mg Tab 40 MG PO BID for 14 Days, #28 TAB Continued Medications: Amlodipine Besylate (Amlodipine Besylate) 10 Mg Tab 2.5 MG PO DAILY Aspirin (Aspirin Ec) 81 Mg Tab 81 MG PO QAM Hold for 7 days. Then can resume. Stop if you have dark stool. Calcium Acetate (Phoslo 667 Mg) 667 Mg Cap 1334 MG PO AC for 30 Days, #180 CAP 5 Refills Calcium Carbonate (Tums) 500 Mg Chew 500 MG PO AC Cholecalciferol (Vitamin D3) 1,000 Unit Tab 1000 INTER.UNIT PO QAM, TAB Cyanocobalamin (Vitamin B12) 1,000 Mcg Tab 1000 MCG PO QAM Docusate Sodium (Docusate Sodium) 100 Mg Cap 100 MG PO QAM, CAP Escitalopram Oxalate (Lexapro) 5 Mg Tab 5 MG PO DAILY Furosemide (Furosemide) 80 Mg Tab 80 MG PO BID Hydralazine HCl (Hydralazine HCl) 50 Mg Tab 50 MG PO TID Insulin Detemir (Levemir) 100 Units/Ml Inj 45 UNITS SC QPM Insulin Detemir (Levemir) 100 Units/Ml Inj 50 UNITS SC QAM Ipratropium [place] (Atrovent Hfa) 200 Puffs/3400 Mcg Aers 2 PUFFS INH Q6H, GM Labetalol HCl (Labetalol HCl) 100 Mg Tab 300 MG PO BID Levalbuterol Tartrate (Levalbuterol Tartrate Hfa) 45 Mcg/Act Aer 2 PUFFS INH Q6H Levothyroxine Sodium (Levothyroxine Sodium) 25 Mcg Tab 25 MCG PO 2XWK, TAB EVERY SATURDAY AND SATURDAY TAKE AN ADDITIONAL 25 MCG ALONG WITH 200 MCG TABLET Levothyroxine Sodium (Levothyroxine Sodium) 200 Mcg Tab 200 MCG PO QAM, TAB Lisinopril (Lisinopril) 40 Mg Tab 40 MG PO DAILY ON DAYS OF DIALYSIS TAKE AFTER TREATMENT Rosuvastatin Calcium (Rosuvastatin Calcium) 20 Mg Tab 20 MG PO QPM Tamsulosin HCl (Tamsulosin HCl) 0.4 Mg Cap 0.4 MG PO QAM Vitamin B Cmplx/Vitc/Folic Ac (Nephrocaps) Cap 1 CAP PO DAILY AT LUNCH, CAP Vitamin B Cmplx/Vitc/Folic Ac (Nephrocaps) Cap 1 CAP PO DAILY, CAP Discontinued Medications: Insulin Aspart (Novolog) 100 Units/Ml Inj 1 DOSE SC ACHS ADJUST PER SLIDING SCALE Omeprazole (Prilosec) 40 Mg Cap 40 MG PO QAM, CAP Discharge Exam Review of Systems: Constitutional: No fever, No chills Respiratory: No cough, No shortness of breath Cardiovascular: No chest pain, No palpitations Abdomen: No pain, No nausea, No vomiting, No diarrhea, No constipation, No GI bleeding Musculoskeletal: No swelling, No calf pain Genitourinary - Male: No dysuria Hematologic / Lymphatic: No abnormal bleeding/bruising Physical Exam: General Appearance: WD/WN, no apparent distress Eyes: sclerae normal ENT: hearing grossly normal Neck: supple, no JVD, trachea midline Respiratory/Chest: lungs clear, normal breath sounds, no respiratory distress, no accessory muscle use Cardiovascular: regular rate, rhythm Abdomen / GI: normal bowel sounds, non tender, soft Extremities: no calf tenderness Neurologic/Psychiatric: alert, oriented x 3 Skin: normal color, warm/dry Hospital Course ADMISSION: 77-year-old man with past medical history of end-stage renal disease on hemodialysis through a functioning fistula in left forearm, also has history of diabetes mellitus type 2 on insulin, hypertension, coronary artery disease and chronic upper GI bleed. Patient presented to the hospital with shortness of breath progressively worse over the past 2 days. Also has melena progressively getting worse over the past 2 months. Patient hemoglobin was found to be 6.4, last hemoglobin here a month and a half ago was more than 8. Patient had an upper endoscopy here done by a month and a half ago that revealed tubular adenomatous duodenal polyp. Patient continues to lose some blood and have melena, unfortunately signed AMA on his subsequent admission in April 19. Patient did have an upper endoscopy and [place] on May 15. Unfortunately I don't have access to the record this point. Patient continues to have melena and recently developed shortness of breath but denies any chest pain or palpitation. HOSPITAL COURSE: Mr. Mcintyre was admitted for Acute Upper GI Bleed from Vascular Ectasia of the Stomach with Cauterization. On presentation he was transfused 2 units for symptomatic anemia with a Hgb of 6.2. He has remained in the mid-7s during admission and asymptomatic. Due to low reserves he was transfused 2 units on 06/11 with dialysis and will have routine monitoring of H&H as outpatient. He will continue his TTS dialysis schedule. No signs of active bleeding and reporting stools have remained brown. He will F/U with Dr. Sullivan in the near future for consideration for colonoscopy and/or video capsule study to further evaluate bleeding risk. He will be switched to Pantoprazole 40 mg BID x 14 days and may be continued pending further evaluation by PCP or GI. Instructed to hold ASA x 7 days then can resume for CAD protection. Instructed to stop ASA if he notices dark stool and call his PCP. All other home medications continued as prescribed. Patient reported that he has stopped his Novolog on his own as he reports worsening numbness/tingling of hands and feet on this? Discussion with was concerned that this was causing some confusion as he did have intermittent sundowning. Did explain that most "side effects" of insulin therapy is from the resultant hypoglycemia that can occur but do not suspect it was insulin related and can't explain his feelings of worsening neuropathic pain with injections. However, A1c is 5.8 and therefore given age, risk of hypoglycemia may be more detrimental and would recommend continuing only Levemir (patient reports no issues with this). This should be continuously monitored but does appear currently he has decent control of his diabetes. Total Time Spent: Greater than 30 minutes This includes examination of the patient, discharge planning, medication reconciliation, and communication with other providers. Discharge Instructions Please refer to the electronic Patient Visit Report (Discharge Instructions) for additional information. Additional Copies To Mahsa Wang,
== END 2017-06-11 17:13 | disposition home or self-care (01) | DRG 377 ==
LOC: C.EDB 09:19 → C.2E 14:19 → ENRESERV 14:26 → EDBEDREQ 14:26 → ENRESERV 06-08 21:19 → C.MS2W 06-08 22:12
PROVIDERS: ADMIT Internal Medicine; ATTEND Internal Medicine
PROC: 0DJ08ZZ Inspection of Upper Intestinal Tract, Via Natural or Artificial Opening Endoscopic (ICD-10-PCS; principal; 2017-06-07 12:14)
DX: K92.2 Gastrointestinal hemorrhage, unspecified (principal); N18.6 End stage renal disease; D62 Acute posthemorrhagic anemia; I50.32 Chronic diastolic (congestive) heart failure; I12.0 Hypertensive chronic kidney disease with stage 5 chronic kidney disease or end stage renal disease; J45.909 Unspecified asthma, uncomplicated; E11.9 Type 2 diabetes mellitus without complications; R04.0 Epistaxis; I51.9 Heart disease, unspecified; E78.00 Pure hypercholesterolemia, unspecified; Z83.3 Family history of diabetes mellitus; Z87.891 Personal history of nicotine dependence; Z79.82 Long term (current) use of aspirin; Z82.49 Family history of ischemic heart disease and other diseases of the circulatory system; Z79.4 Long term (current) use of insulin; I25.10 Atherosclerotic heart disease of native coronary artery without angina pectoris; E78.5 Hyperlipidemia, unspecified; J44.9 Chronic obstructive pulmonary disease, unspecified; F41.9 Anxiety disorder, unspecified; F32.9 Major depressive disorder, single episode, unspecified; R41.0 Disorientation, unspecified

== ENCOUNTER 2017-07-07 12:33 | Inpatient (IN) | payer MEDICARE, OTHER ==
[~2017-07-07] VITALS: Ht 185.4 cm; Wt 100.0 kg
[~2017-07-07 12:33] MED LIST changes: -CRFUDL PO; -NVLG SC; -OMEP40CA41 PO; +PRT40 PO
[2017-07-07] MEDS ORDERED: SODIUM CHLORIDE 0.9% 1000ML 1,000 ML IV STA (12:56)
--- NOTE | 2017-07-07 13:41 | DIAGNOSTIC IMAGING REPORT ---
CHEST ONE VIEW PORTABLE CLINICAL HISTORY: 77 years-old Male presenting with EVALUATE WEAKNESS. TECHNIQUE: Portable upright AP view of the chest was obtained. COMPARISON: 06/06/2017. FINDINGS: Atherosclerosis of aortic arch. Cardiac silhouette moderately enlarged. Prominence of pulmonary vasculature. Partial obscuration of the left hemidiaphragm with a left retrocardiac opacity suggested. Degenerative changes of the thoracic spine. Upper abdomen normal. IMPRESSION: 1. Moderate cardiomegaly with volume overload. No maciej pulmonary edema. 2. Possible left retrocardiac opacity could relate to atelectasis from cardiomegaly or prominent pericardial fat pad. Focal consolidation is considered less likely. Electronically signed by: Ward Stephens M.D. 07/07/2017 1:40 PM Dictated Date/Time: 07/07/2017 1:39 PM
[2017-07-07 13:43] LABS: BASO % 0.6 %; BASO ABS # 0.03 K/uL (0-0.2); EOS % 4.1 %; HEMATOCRIT 26.6 % (42-52); IG# 0.01 K/uL (0.00-0.02); LYMPH % 9.1 %; LYMPH ABS # 0.44 K/uL (1.2-3.4); MEAN CELL VOLUME 90.8 fL (80-100); MEAN CORPUSCULAR HEMOGLOBIN 27.3 pg (25-34); MEAN CORPUSCULAR HGB CONC 30.1 g/dl (32-36); MEAN PLATELET VOLUME 9.8 fL (7.4-10.4); MONO % 8.1 %; MONO ABS # 0.39 K/uL (0.11-0.59); NEUT % 77.9 %; NEUT ABS # 3.77 K/uL (1.4-6.5); PLATELET COUNT 226 K/uL (130-400); RED CELL DISTRIBUTION WIDTH CV 16.4 % (11.5-14.5); RED CELL DISTRIBUTION WIDTH SD 54.4 fL (36.4-46.3); WHITE BLOOD COUNT 4.84 K/uL (4.8-10.8)
[2017-07-07 13:51] LABS: INR 1.1 (0.9-1.1); PTT PATIENT 26.1 SECONDS (21.0-31.0)
[2017-07-07] MEDS ORDERED: LEVAQUIN 750MG / 150ML D5W IV STA (14:05)
[2017-07-07] MEDS ORDERED: CEFEPIME IV 1,000 MG in DEXTROSE 5% 100ML 100 ML IV STA (14:05)
[2017-07-07 14:13] LABS: INFLUENZA B ANTIGEN Neg for Influ B (NEG)
[2017-07-07 14:17] LABS: CALCIUM 9.3 mg/dl (8.5-10.1); CREATININE 6.17 mg/dl (0.60-1.40); POTASSIUM 3.8 mmol/L (3.5-5.1); TOTAL PROTEIN 6.7 gm/dl (6.4-8.2)
[2017-07-07] MEDS ORDERED: GABA-112 PO (14:22)
[2017-07-07] MEDS ORDERED: MAGNESIUM HYDROXIDE SUSP 30 ML UDC PO PRN (14:30)
[2017-07-07] MEDS ORDERED: INFLUENZA VIRUS QUAD VACCINE 0.5 ML SYR IM. ONE (14:30)
[2017-07-07] MEDS ORDERED: ACETAMINOPHEN 325 MG TAB PO PRN (14:30)
[2017-07-07] MEDS ORDERED: ONDANSETRON INJ 2 MG/ML 2 ML VIAL IV PRN (14:30)
[2017-07-07] MEDS ORDERED: LEVALBUTEROL 1.25MG/3ML NEB INH PRN (14:30)
[2017-07-07] MEDS ORDERED: NITROGLYCERIN 0.4 MG SL PER TAB CHARGE SL PRN (14:30)
[2017-07-07] MEDS ORDERED: ALUMINUM/MAGNESIUM/SIMETH (MAALOX MAX) 30 ML UDC PO PRN (14:30)
[2017-07-07] MEDS ORDERED: CEFEPIME IV 1,000 MG in DEXTROSE 5% 100ML 100 ML IV SCH (14:30)
[2017-07-07] MEDS ORDERED: PNEUMOCOCCAL POLYSACCHARIDES 25 MCG/0.5 ML VIAL/SYR IM. ONE (14:30)
[2017-07-07] MEDS ORDERED: HALOPERIDOL LACTATE 5 MG/ML 1 ML VIAL IV PRN (15:00)
--- NOTE | 2017-07-07 15:10 | History and Physical ---
History & Physical Date & Time of Service: Jul 07, 2017 at 15:01 Chief Complaint: Weakness/Flu-Like Sympt. Primary Care Physician: Mahsa Wang DO History of Present Illness 77-year-old male presents for facility of profound weakness and hypoxia. He was discharged on June 11 after a apparent acute blood loss anemia with concern for GI source. During that stay a source was not located his aspirin was held Protonix doubled he is scheduled for a capsule enteroscopy 07/12. The patient continues with melena The patient had a persistent cough almost since the time he left as an outpatient and been given Tessalon Perles and Robitussin this did not help. His cough is been productive at times of green sputum. Today he was profoundly weak cannot stand or bear weight even with a 2 person assist he arrived to the ER and was found to be hypoxemic with an O2 sat of 84% on room air (he does have a history of COPD distant smoking history and takes inhalers but not oxygen ). The patient says he feels much better with the oxygen he also did have a temperature on presentation to 37 9. Clinical exam shows focal rales at the left base x-ray is suggestive of some left base abnormality currently a flu PCR is pending where a regular screening was negative. The ER has elected to use levofloxacin and cefepime these will be continued at renal dosing as he is an end-stage renal dialysis patient Past Medical/Surgical History Medical Problems: (1) Asthma Status: Chronic (2) Diabetes Status: Chronic (3) Epistaxis Status: Chronic (4) Heart disease Status: Chronic (5) Hypertension Status: Chronic Family History Diabetes mellitus Hypertension Kidney disease Kidney stones Social History Smoking Status: Former Smoker Drug Use: none Marital Status: Housing status: lives with family Occupational Status: retired Immunizations History of Influenza Vaccine: Unknown History of Tetanus Vaccine?: unknown History of Pneumococcal: Yes Pneumococcal Date: Dec 19, 2007 History of Hepatitis B Vaccine: Unknown Multi-Drug Resistant Organisms History of MDRO: No Allergies Coded Allergies: Metformin (Verified Adverse Reaction, Intermediate, CONFUSION, 06/06/17) Home Medications Scheduled Amlodipine Besylate (Amlodipine Besylate), 10 MG PO DAILY Aspirin (Aspirin Ec), 81 MG PO QAM Calcium Acetate (Phoslo 667 Mg), 1,334 MG PO AC Calcium Carbonate (Tums), 500 MG PO AC Cholecalciferol (Vitamin D3), 1,000 INTER.UNIT PO QAM Cyanocobalamin (Vitamin B12), 1,000 MCG PO QAM Docusate Sodium (Docusate Sodium), 100 MG PO QAM Escitalopram Oxalate (Lexapro), 5 MG PO DAILY Furosemide (Furosemide), 80 MG PO BID Gabapentin (Neurontin), 100 MG PO HS Hydralazine HCl (Hydralazine HCl), 50 MG PO TID Insulin Detemir (Levemir), 45 UNITS SC QPM Insulin Detemir (Levemir), 50 UNITS SC QAM Ipratropium [place] (Atrovent Hfa), 2 PUFFS INH Q6H Labetalol HCl (Labetalol HCl), 300 MG PO BID Levalbuterol Tartrate (Levalbuterol Tartrate Hfa), 2 PUFFS INH Q6H Levothyroxine Sodium (Levothyroxine Sodium), 25 MCG PO 2XWK Levothyroxine Sodium (Levothyroxine Sodium), 200 MCG PO QAM Lisinopril (Lisinopril), 40 MG PO DAILY Pantoprazole (Pantoprazole Sodium), 40 MG PO BID Rosuvastatin Calcium (Rosuvastatin Calcium), 20 MG PO QPM Tamsulosin HCl (Tamsulosin HCl), 0.4 MG PO QAM Vitamin B Cmplx/Vitc/Folic Ac (Nephrocaps), 1 CAP PO DAILY Review of Systems ROS: well nourished well developed but looks much older than his stated age No double vision blurry vision No problems with speech or swallowing he is edentulous No palpitations, chest pain or pressure No Wheezing subjectively dyspneic and coughing with deep breaths No abdominal pain nausea vomiting diarrhea changes in appetite or weight has had dark stools and intermittent constipation plus diarrhea No burning urine urine frequency or changes in color has frequently dribbling incontinence No focal joint pain or muscle pain No skin rashes or oral lesions No unusual bruising or bleeding No focused back pain or numbness or loss of strength No changes in memory or confusion is hard of hearing Physical Exam Vital Signs Date Time Temp Pulse Resp B/P (MAP) Pulse Ox O2 Delivery O2 Flow Rate FiO2 07/07/17 14:30 76 16 152/58 94 Room Air 07/07/17 12:53 99 Nasal Cannula 2.0 07/07/17 12:46 98 Nasal Cannula 3.0 07/07/17 12:42 79 07/07/17 12:42 37.9 79 20 147/74 84 Room Air General Appearance: WD/WN, + mild distress Head: normocephalic, atraumatic Eyes: normal inspection, sclerae normal Neck: supple, no JVD Respiratory/Chest: + decreased breath sounds, + accessory muscle use, + rales ( left base) Cardiovascular: regular rate, rhythm, + systolic murmur Abdomen/GI: normal bowel sounds, non tender, soft Back: no CVA tenderness, no muscle spasm Extremities/Musculoskelatal: no pedal edema, normal range of motion Neurologic/Psych: alert, oriented x 3 Skin: normal color, warm/dry, no rash, + pertinent finding (not overtly pale) Diagnostics Laboratory Results Results Past 24 Hours Test 07/07/17 13:14 07/07/17 13:25 07/07/17 13:35 07/07/17 13:54 Range/Units Influenza Type A Antigen Neg for Influ A NEG Influenza Type B Antigen Neg for Influ B NEG White Blood Count 4.84 4.8-10.8 K/uL Red Blood Count 2.93 4.7-6.1 M/uL Hemoglobin 8.0 14.0-18.0 g/dL Hematocrit 26.6 42-52 % Mean Corpuscular Volume 90.8 80-100 fL Mean Corpuscular Hemoglobin 27.3 25-34 pg Mean Corpuscular Hemoglobin Concent 30.1 32-36 g/dl Platelet Count 226 130-400 K/uL Mean Platelet Volume 9.8 7.4-10.4 fL Neutrophils (%) (Auto) 77.9 % Lymphocytes (%) (Auto) 9.1 % Monocytes (%) (Auto) 8.1 % Eosinophils (%) (Auto) 4.1 % Basophils (%) (Auto) 0.6 % Neutrophils # (Auto) 3.77 1.4-6.5 K/uL Lymphocytes # (Auto) 0.44 1.2-3.4 K/uL Monocytes # (Auto) 0.39 0.11-0.59 K/uL Eosinophils # (Auto) 0.20 0-0.5 K/uL Basophils # (Auto) 0.03 0-0.2 K/uL RDW Standard Deviation 54.4 36.4-46.3 fL RDW Coefficient of Variation 16.4 11.5-14.5 % Immature Granulocyte % (Auto) 0.2 % Immature Granulocyte # (Auto) 0.01 0.00-0.02 K/uL Polychromasia 1+ Prothrombin Time 11.4 9.0-12.0 SECONDS Prothromb Time International Ratio 1.1 0.9-1.1 Activated Partial Thromboplast Time 26.1 21.0-31.0 SECONDS Partial Thromboplastin Ratio 1.0 Sodium Level 138 136-145 mmol/L Potassium Level 3.8 3.5-5.1 mmol/L Chloride Level 97 98-107 mmol/L Carbon Dioxide Level 35 21-32 mmol/L Anion Gap 6.0 3-11 mmol/L Blood Urea Nitrogen 45 7-18 mg/dl Creatinine 6.17 0.60-1.40 mg/dl Est Creatinine Clear Calc Drug Dose 11.8 ml/min Estimated GFR () 9.4 Estimated GFR (Non- 8.1 BUN/Creatinine Ratio 7.3 10-20 Random Glucose 148 70-99 mg/dl Calcium Level 9.3 8.5-10.1 mg/dl Magnesium Level 2.2 1.8-2.4 mg/dl Total Bilirubin 0.6 0.2-1 mg/dl Direct Bilirubin 0.2 0-0.2 mg/dl Aspartate Amino Transf (AST/SGOT) 11 15-37 U/L Alanine Aminotransferase (ALT/SGPT) 18 12-78 U/L Alkaline Phosphatase 87 45-117 U/L Troponin I 0.045 0-0.045 ng/ml Total Protein 6.7 6.4-8.2 gm/dl Albumin 3.0 3.4-5.0 gm/dl Lipase 176 73-393 U/L Thyroid Stimulating Hormone (TSH) 7.220 0.300-4.500 uIu/ml Bedside Lactic Acid Venous 0.61 0.90-1.70 mmol/L Urine Color YELLOW Urine Appearance CLEAR CLEAR Urine pH 7.0 4.5-7.5 Urine Specific [place] 1.017 1.000-1.030 Urine Protein 3+ NEG Urine Glucose (UA) 1+ NEG Urine Ketones NEG NEG Urine Occult Blood NEG NEG Urine Nitrite NEG NEG Urine Bilirubin NEG NEG Urine Urobilinogen NEG NEG Urine Leukocyte Esterase NEG NEG Urine WBC (Auto) 1-5 0-5 /hpf Urine RBC (Auto) 0-4 0-4 /hpf Urine Hyaline Casts (Auto) 1-5 0-5 /lpf Urine Epithelial Cells (Auto) 20-30 0-5 /lpf Urine Bacteria (Auto) NEG NEG Microbiology Results 07/07/17 Blood Culture, Received Pending 07/07/17 Blood Culture, Received Pending 07/07/17 Urine Culture, Received Pending Diagnostic Radiology Hemoglobin of 8.0 is noted he has been hovering around this range over the last few weeks, troponin is unremarkable lactic acid is also good pending flu PCR TSH is high were pending a free T4 other (left retrocardiac density) other (sinus rhythm with right bundle branch block inferior T waves are noted these apparently have been present in the past) Impression Assessment and Plan 77-year-old male here with acute on chronic hypoxic respiratory failure and fever with concern for pneumonia, chronic anemia and end-stage renal disease. Noted continued melena For the pneumonia the patient be continued on levofloxacin and cefepime if his flu PCR is abnormal we'll institute Tamiflu offer when necessary Tessalon Perles For his hypoxic respiratory failure we'll supplement oxygen will changes typical inhaled medicines for his COPD 2 nebulized form may consider pulmonary consultation if he does not improve Chronic anemia, the family is concerned that he may be weak because of anemia we 'll watch his counts closely and transfuse as needed perhaps with the oversight of Dr. Mcfadden given his pneumonia and hypoxia he may actually feel better with a higher hemoglobin. With concern for acute anemia on his last admission he was placed on Protonix twice a day this will be continued and because of his complaints of melena we will hold his aspirin For his diabetes the patient is convinced that insulin aspartate is dangerous for him we'll uses Levemir with a diuretic diet and a sliding scale at this point Hypothyroidism the patient typically takes 200 g a day and 25 mg additional on Saturday free T4 is pending as his initial TSH was high this may also have a play into his overall weakness For his hypertension this seems to have been difficult to control we will continue his amlodipine, Lasix, lisinopril, Apresoline, Normodyne For his depression he seems mildly depressed says he is tired of being sick we' ll continue his Lexapro DVT prevention will be SCDs Level of Care Telemetry Resuscitation Status FULL RESUSCITATION VTE Prophylaxis VTE Risk Assessment Done? Y/N: Yes Risk Level: Moderate Given or contraindicated: Unfractionated heparin SQ (we will use heparin cautiously with concern for recent blood loss we are holding his aspirin)
[2017-07-07 15:37] LABS: INFLUENZA A PCR POS for Influ A (NEG); INFLUENZA B PCR Neg for Influ B (NEG)
[2017-07-07] MEDS ORDERED: LEVOFLOXACIN CONSULT ACTIVE PRN (15:45)
[2017-07-07] MEDS ORDERED: CEFEPIME CONSULT ACTIVE PRN (15:45)
[2017-07-07 15:48] VITALS: BP 174/64; PULSE 73; TEMP 36.9; O2SAT 94; BMI 28.1
[2017-07-07] MEDS: INSULIN ASPART 100 UNITS/ML 3 ML PEN SC SCH ×2 (16:15→21:26)
[2017-07-07] MEDS ORDERED: DEXTROSE 50% 50 ML SYR IV PRN (16:45)
[2017-07-07] MEDS ORDERED: PNEUMOCOCCAL ADMINISTRATION CHARGE ONE (16:45)
[2017-07-07] MEDS ORDERED: GLUCOSE 40% GEL 15 GM TUBE PO PRN (16:45)
[2017-07-07] MEDS ORDERED: GLUCOSE 10 TABS/TUBE PO PRN (16:45)
[2017-07-07] MEDS ORDERED: GLUCAGON FOR INJ 1 MG VIAL SQ PRN (16:45)
[2017-07-07] MEDS ORDERED: INFLUENZA ADMINISTRATION CHARGE ONE (16:45)
[2017-07-07] MEDS: ROSUVASTATIN CALCIUM 20 MG TAB PO SCH (17:19)
[2017-07-07] MEDS: CALCIUM CARBONATE 500 MG CHEWABLE PO SCH (17:19)
[2017-07-07] MEDS: CALCIUM ACETATE 667MG GELCAP PO SCH (17:20)
[2017-07-07] MEDS: FUROSEMIDE 80 MG TAB PO SCH (17:24)
[2017-07-07] MEDS: LEVALBUTEROL 1.25MG/0.5ML NEB INH SCH ×2 (17:49→19:51)
[2017-07-07] MEDS: IPRATROPIUM BROMIDE NEB SOLN 0.02% 2.5 ML VIAL INH SCH ×2 (17:49→19:51)
[2017-07-07 18:59] VITALS: BP 135/65; PULSE 80; TEMP 38.2; O2SAT 91
--- NOTE | 2017-07-07 19:29 | EMERGENCY ROOM VISIT NOTE ---
History Report prepared by Crys: Genet Kohler Under the Supervision of: Dr. Stephon Forman M.D. First contact with patient: 12:56 Chief Complaint: OTHER COMPLAINT Stated Complaint: WEAKNESS/FLU-LIKE SYMPT. History of Present Illness The patient is a 77 year old male who presents to the Emergency Room with complaints of constant generalized illness beginning a couple days ago. The patient was sent to the ED today because when he was at dialysis earlier they noticed his blood count level was low. The patient was hospitalized a month ago. While in the hospital, he had a blood transfusion and some blood vessels cauterized in his stomach. The patient notes left sided chest congestion, a runny nose, productive cough, black stools, tingling in his hands and legs, and weakness. The patient is on gabapentin for neuropathy from his diabetes. The patient does not wear oxygen at baseline. The patient has a history of COPD. He still makes urine. Pt denies LOC, headache, fevers, chills, diaphoresis, visual changes, neck pain, chest pain, breathing difficulties, nausea, vomiting, abdominal pain, back pain, melena, hematochezia, urinary symptoms, numbness, weakness, lymphadenopathy, rash, or other complaints. Source of History: patient Onset: a couple days ago Position: other (generalized) Quality: other (illness) Timing: constant Associated Symptoms: + cough, + weakness Review of Systems See HPI for pertinent positives and negatives. A total of ten systems were reviewed and were otherwise negative. Past Medical & Surgical Medical Problems: (1) Acute respiratory failure with hypoxia (2) Anemia (3) Asthma (4) Chronic Kidney Disease, Unspecified (5) COPD exacerbation (6) Diab Cheryl Wo Compl, Type Ii Or Unspec Type, Not Uncntrld (7) Diabetes (8) End-stage renal disease on hemodialysis (9) Epistaxis (10) Esophageal Reflux (11) GI bleed (12) Heart disease (13) Hypertension (14) Hypertension Nos (15) Pneumonia (16) Secondary hyperparathyroidism of renal origin Family History Diabetes mellitus Hypertension Kidney disease Kidney stones Social History Smoking Status: Former Smoker Alcohol Use: none Drug Use: none Marital Status: Housing Status: lives with significant other Occupation Status: retired Current/Historical Medications Scheduled Amlodipine Besylate (Amlodipine Besylate), 10 MG PO DAILY Aspirin (Aspirin Ec), 81 MG PO QAM Calcium Acetate (Phoslo 667 Mg), 1,334 MG PO AC Calcium Carbonate (Tums), 500 MG PO AC Cholecalciferol (Vitamin D3), 1,000 INTER.UNIT PO QAM Cyanocobalamin (Vitamin B12), 1,000 MCG PO QAM Docusate Sodium (Docusate Sodium), 100 MG PO QAM Escitalopram Oxalate (Lexapro), 5 MG PO DAILY Furosemide (Furosemide), 80 MG PO BID Gabapentin (Neurontin), 100 MG PO HS Hydralazine HCl (Hydralazine HCl), 50 MG PO TID Insulin Detemir (Levemir), 45 UNITS SC QPM Insulin Detemir (Levemir), 50 UNITS SC QAM Ipratropium [place] (Atrovent Hfa), 2 PUFFS INH Q6H Labetalol HCl (Labetalol HCl), 300 MG PO BID Levalbuterol Tartrate (Levalbuterol Tartrate Hfa), 2 PUFFS INH Q6H Levothyroxine Sodium (Levothyroxine Sodium), 25 MCG PO 2XWK Levothyroxine Sodium (Levothyroxine Sodium), 200 MCG PO QAM Lisinopril (Lisinopril), 40 MG PO DAILY Pantoprazole (Pantoprazole Sodium), 40 MG PO BID Rosuvastatin Calcium (Rosuvastatin Calcium), 20 MG PO QPM Tamsulosin HCl (Tamsulosin HCl), 0.4 MG PO QAM Vitamin B Cmplx/Vitc/Folic Ac (Nephrocaps), 1 CAP PO DAILY Allergies Coded Allergies: Metformin (Verified Adverse Reaction, Intermediate, CONFUSION, 06/06/17) Physical Exam Vital Signs Date Time Temp Pulse Resp B/P (MAP) Pulse Ox O2 Delivery O2 Flow Rate FiO2 07/07/17 14:30 76 16 152/58 94 Room Air 07/07/17 12:53 99 Nasal Cannula 2.0 07/07/17 12:46 98 Nasal Cannula 3.0 07/07/17 12:42 79 07/07/17 12:42 37.9 79 20 147/74 84 Room Air Physical Exam GENERAL: Awake, alert, mildly ill-appearing, in no distress HENT: Normocephalic, atraumatic. Oropharynx unremarkable. EYES: Pale conjunctiva. Sclera non-icteric. NECK: Supple. No nuchal rigidity. FROM. No JVD. RESPIRATORY: Crackles in left base. CARDIAC: Regular rate, normal rhythm. Extremities warm and well perfused. Pulses equal. ABDOMEN: Soft, non-distended. No tenderness to palpation. No rebound or guarding. No masses. RECTAL: Deferred. MUSCULOSKELETAL: Chest examination reveals no tenderness. The back is symmetrical on inspection without obvious abnormality. There is no CVA tenderness to palpation. No joint edema. LOWER EXTREMITIES: Calves are equal size bilaterally and non-tender. No edema. No discoloration. NEURO: Normal sensorium. No sensory or motor deficits noted. SKIN: No rash or jaundice noted. Medical Decision & Procedures ER Provider Diagnostic Interpretation: Radiology results as stated below per my review and radiologist interpretation: CHEST ONE VIEW PORTABLE FINDINGS: Atherosclerosis of aortic arch. Cardiac silhouette moderately enlarged. Prominence of pulmonary vasculature. Partial obscuration of the left hemidiaphragm with a left retrocardiac opacity suggested. Degenerative changes of the thoracic spine. Upper abdomen normal. IMPRESSION: 1. Moderate cardiomegaly with volume overload. No maciej pulmonary edema. 2. Possible left retrocardiac opacity could relate to atelectasis from cardiomegaly or prominent pericardial fat pad. Focal consolidation is considered less likely. Electronically signed by: Ward Stephens M.D. Laboratory Results 07/07/17 13:25 Red Blood Count 2.93, Mean Corpuscular Volume 90.8, Mean Corpuscular Hemoglobin 27.3, Mean Corpuscular Hemoglobin Concent 30.1, Mean Platelet Volume 9.8, Neutrophils (%) (Auto) 77.9, Lymphocytes (%) (Auto) 9.1, Monocytes (%) (Auto) 8.1, Eosinophils (%) (Auto) 4.1, Basophils (%) (Auto) 0.6, Neutrophils # (Auto) 3.77, Lymphocytes # (Auto) 0.44, Monocytes # (Auto) 0.39, Eosinophils # (Auto) 0.20, Basophils # (Auto) 0.03 07/07/17 13:25 Test 07/07/17 13:14 07/07/17 13:25 07/07/17 13:35 07/07/17 13:54 Influenza Type A (RT-PCR) POS for Influ A (NEG) Influenza Type A Antigen Neg for Influ A (NEG) Influenza Type B Antigen Neg for Influ B (NEG) Influenza Type B (RT-PCR) Neg for Influ B (NEG) White Blood Count 4.84 K/uL (4.8-10.8) Red Blood Count 2.93 M/uL (4.7-6.1) Hemoglobin 8.0 g/dL (14.0-18.0) Hematocrit 26.6 % (42-52) Mean Corpuscular Volume 90.8 fL (80-100) Mean Corpuscular Hemoglobin 27.3 pg (25-34) Mean Corpuscular Hemoglobin Concent 30.1 g/dl (32-36) Platelet Count 226 K/uL (130-400) Mean Platelet Volume 9.8 fL (7.4-10.4) Neutrophils (%) (Auto) 77.9 % Lymphocytes (%) (Auto) 9.1 % Monocytes (%) (Auto) 8.1 % Eosinophils (%) (Auto) 4.1 % Basophils (%) (Auto) 0.6 % Neutrophils # (Auto) 3.77 K/uL (1.4-6.5) Lymphocytes # (Auto) 0.44 K/uL (1.2-3.4) Monocytes # (Auto) 0.39 K/uL (0.11-0.59) Eosinophils # (Auto) 0.20 K/uL (0-0.5) Basophils # (Auto) 0.03 K/uL (0-0.2) RDW Standard Deviation 54.4 fL (36.4-46.3) RDW Coefficient of Variation 16.4 % (11.5-14.5) Immature Granulocyte % (Auto) 0.2 % Immature Granulocyte # (Auto) 0.01 K/uL (0.00-0.02) Polychromasia 1+ Prothrombin Time 11.4 SECONDS (9.0-12.0) Prothromb Time International Ratio 1.1 (0.9-1.1) Activated Partial Thromboplast Time 26.1 SECONDS (21.0-31.0) Partial Thromboplastin Ratio 1.0 Anion Gap 6.0 mmol/L (3-11) Est Creatinine Clear Calc Drug Dose 11.8 ml/min Estimated GFR () 9.4 Estimated GFR (Non- 8.1 BUN/Creatinine Ratio 7.3 (10-20) Calcium Level 9.3 mg/dl (8.5-10.1) Magnesium Level 2.2 mg/dl (1.8-2.4) Total Bilirubin 0.6 mg/dl (0.2-1) Direct Bilirubin 0.2 mg/dl (0-0.2) Aspartate Amino Transf (AST/SGOT) 11 U/L (15-37) Alanine Aminotransferase (ALT/SGPT) 18 U/L (12-78) Alkaline Phosphatase 87 U/L (45-117) Troponin I 0.045 ng/ml (0-0.045) Total Protein 6.7 gm/dl (6.4-8.2) Albumin 3.0 gm/dl (3.4-5.0) Lipase 176 U/L (73-393) Thyroid Stimulating Hormone (TSH) 7.220 uIu/ml (0.300-4.500) Free Thyroxine 1.07 ng/dl (0.80-1.60) Bedside Lactic Acid Venous 0.61 mmol/L (0.90-1.70) Urine Color YELLOW Urine Appearance CLEAR (CLEAR) Urine pH 7.0 (4.5-7.5) Urine Specific [place] 1.017 (1.000-1.030) Urine Protein 3+ (NEG) Urine Glucose (UA) 1+ (NEG) Urine Ketones NEG (NEG) Urine Occult Blood NEG (NEG) Urine Nitrite NEG (NEG) Urine Bilirubin NEG (NEG) Urine Urobilinogen NEG (NEG) Urine Leukocyte Esterase NEG (NEG) Urine WBC (Auto) 1-5 /hpf (0-5) Urine RBC (Auto) 0-4 /hpf (0-4) Urine Hyaline Casts (Auto) 1-5 /lpf (0-5) Urine Epithelial Cells (Auto) 20-30 /lpf (0-5) Urine Bacteria (Auto) NEG (NEG) Laboratory results reviewed by me Medications Administered Medications (Trade) Dose Ordered Sig/Unique Route Start Time Stop Time Status Last Admin Dose Admin Sodium Chloride 1,000 ml @ 125 mls/hr Q8H STAT IV 07/07/17 12:56 07/07/17 15:32 DC 07/07/17 13:40 125 MLS/HR Levofloxacin (Levaquin / D5W) 750 mg NOW STAT IV 07/07/17 14:05 07/07/17 14:07 DC 07/07/17 14:05 750 MG Cefepime HCl 1000 mg/Dextrose 111 ml @ 200 mls/hr NOW STAT IV 07/07/17 14:05 07/07/17 14:38 DC 07/07/17 14:05 200 MLS/HR ECG Indication: weakness Rate (beats per minute): 76 Rhythm: normal sinus Findings: RBBB, T-wave inversion (Inferior), no ectopy Change: EKG interpreted by me. ED Course 1255: Ordered Sodium Chloride 1000 ml @ 125 mls/hr IV. 1256: Ordered Sodium Chloride 1000 ml @ 125 mls/hr IV. 1302: The patient was evaluated in room C7. A complete history and physical exam was performed. 1405: Ordered Cefepime HCl 1000 mg/Dextrose 111 ml @ 2000 mls/hr IV, Levofloxacin 750 mg IV. 1411: I updated the patient on his test results. He is agreeable to the treatment plan. 1525: Discussed the patient's case with Dr. Villanueva-[facility]. The patient will be evaluated for further treatment and disposition. Medical Decision Prior records/ancillary studies reviewed. Triage Nursing notes reviewed and agree them. Additional history obtained from the family. The patient's history was concerning for flu symptoms and shortness of breath. Differential diagnosis: Etiologies such as pneumonia, influenza, COPD, reactive airway disease, CHF, cardiac ischemia, pulmonary embolism, pneumothorax, musculoskeletal, infections , gastrointestinal, as well as others were entertained. Physical examination: As above. Rhonchi and crackles in the left base ER treatment provided: Normal saline hydration IV Levaquin IV cefepime On reassessment the patient felt better. Diagnostic interpretation by me: The electrocardiogram was negative for pathologic change. The labs revealed an unremarkable blood cell count on CBC significant anemia present. About baseline for the patient. Chemistry panel unremarkable. Rapid flu negative. Imaging studies: Chest x-ray as above. Concerning for left basilar pneumonia. Consultation: A consultation was placed with the hospitalist, Dr. Villanueva. The case was discussed and diagnostics were reviewed. The patient was evaluated in the ER for further treatment. A PCR flu test was ordered for admission. After admission the patient's PCR test came back positive. I did notify Dr. Schulz of the hospitalist service. Medication Reconcilliation Current Medication List: was personally reviewed by me Blood Pressure Screening Patient's blood pressure: Elevated blood pressure Blood pressure disposition: Referred to PCP (referred to hopsitalist) Consults Time Called: 1519 Consulting Physician: Dr. Paiz Returned Call: 1525 Discussed the patient's case with Dr. Paiz. The patient will be evaluated for further treatment and disposition. Impression Primary Impression: Hypoxia Additional Impressions: Pneumonia Fever Scribe Attestation The scribe's documentation has been prepared under my direction and personally reviewed by me in its entirety. I confirm that the note above accurately reflects all work, treatment, procedures, and medical decision making performed by me. Departure Information Dispostion Being Evaluated By Hospitalist Referrals Mahsa Wang DO (PCP) Patient Instructions My [facility] Problem Qualifiers
--- NOTE | 2017-07-07 19:32 | Progress Note ---
Progress Note Date of Service Jul 07, 2017. Progress Note time - 1929 Informed by ER attending that a flu PCR had been sent after the initial rapid flu test was negative. Flu PCR was indeed POSITIVE for influenza A. spoke with pharmacy - plan - tamiflu 30mg po x 1 now then tamiflu 30mg po x 1 on Saturday AFTER HD then tamiflu 30mg po x 1 on AFTER HD droplet precautions Informed his that PCR was + for flu A and that she should call her PCP in the am to get on tamiflu prophylaxis. She voiced understanding. Enedina LORA MD
[2017-07-07] MEDS ORDERED: OSELTAMIVIR PHOSPHATE SUSP 30 MG/5 ML UDP PO ONE (19:45)
[2017-07-07 19:55] VITALS: PULSE 81; O2SAT 91
[2017-07-07] MEDS: PANTOprazole SOD 40 MG TAB PO SCH (20:01)
[2017-07-07] MEDS: BENZONATATE 100MG CAP PO PRN (20:01)
[2017-07-07] MEDS: LABETALOL HCL 100 MG TAB PO SCH (20:01)
[2017-07-07] MEDS: GABAPENTIN 100 MG CAP PO SCH (20:01)
[2017-07-07 20:15] VITALS: O2SAT 91
[2017-07-07] MEDS ORDERED: HEPARIN SOD 5000 UNIT/0.5 ML CARP SQ SCH (21:00)
[2017-07-07] MEDS ORDERED: INSULIN DETEMIR FLEXPEN/FLEX TOUCH 100 UNITS/ML 3ML SC SCH (21:00)
[2017-07-07] MEDS: INSULIN DETEMIR SC SCH (21:25)
[2017-07-07 23:50] VITALS: BP 147/57; PULSE 75; TEMP 37.3; O2SAT 93
[2017-07-08] VITALS (18 sets, daily range): BP systolic 122–173; BP diastolic 55–76; PULSE 54–75; TEMP 36.3–37.8; O2SAT 78–99
[2017-07-08] MEDS: IPRATROPIUM BROMIDE NEB SOLN 0.02% 2.5 ML VIAL INH SCH ×4 (02:05→19:35)
[2017-07-08] MEDS: LEVALBUTEROL 1.25MG/0.5ML NEB INH SCH ×4 (02:05→19:35)
[2017-07-08] MEDS: LEVOTHYROXINE 200 MCG TAB PO SCH (05:51)
[2017-07-08] MEDS: INSULIN ASPART 100 UNITS/ML 3 ML PEN SC SCH ×4 (07:00→21:30)
[2017-07-08] MEDS: FUROSEMIDE 80 MG TAB PO SCH ×2 (07:59→17:02)
[2017-07-08] MEDS: NEPHROCAPS PO SCH (07:59)
[2017-07-08] MEDS: LABETALOL HCL 100 MG TAB PO SCH ×2 (08:00→20:40)
[2017-07-08] MEDS: TAMSULOSIN HCL 0.4 MG CAP PO SCH (08:00)
[2017-07-08] MEDS: PANTOprazole SOD 40 MG TAB PO SCH ×2 (08:00→20:40)
[2017-07-08] MEDS: ASPIRIN 81 MG ECTAB PO SCH (08:00)
[2017-07-08] MEDS: CALCIUM CARBONATE 500 MG CHEWABLE PO SCH ×3 (08:01→17:02)
[2017-07-08] MEDS: AMLODIPINE BESYLATE 5 MG TAB PO SCH (08:01)
[2017-07-08] MEDS: LISINOPRIL 40 MG TAB PO SCH (08:01)
[2017-07-08] MEDS: CHOLECALCIFEROL 1000 INTER.UNIT TAB PO SCH (08:01)
[2017-07-08] MEDS: CALCIUM ACETATE 667MG GELCAP PO SCH ×3 (08:01→17:02)
[2017-07-08] MEDS: ESCITALOPRAM OXALATE 10 MG TAB PO SCH (08:02)
[2017-07-08] MEDS: DOCUSATE SODIUM 100 MG CAP PO SCH (08:02)
[2017-07-08 08:31] LABS: CALCIUM 8.7 mg/dl (8.5-10.1); CREATININE 7.34 mg/dl (0.60-1.40); POTASSIUM 3.7 mmol/L (3.5-5.1)
[2017-07-08 08:47] LABS: HEMATOCRIT 22.7 % (42-52); HEMOGLOBIN 6.9 g/dL (14.0-18.0); MEAN CELL VOLUME 90.1 fL (80-100); MEAN CORPUSCULAR HEMOGLOBIN 27.4 pg (25-34); MEAN CORPUSCULAR HGB CONC 30.4 g/dl (32-36); MEAN PLATELET VOLUME 9.1 fL (7.4-10.4); PLATELET COUNT 196 K/uL (130-400); RED CELL DISTRIBUTION WIDTH CV 16.5 % (11.5-14.5); RED CELL DISTRIBUTION WIDTH SD 53.7 fL (36.4-46.3); WHITE BLOOD COUNT 4.45 K/uL (4.8-10.8)
[2017-07-08] MEDS ORDERED: INSULIN DETEMIR SC SCH (09:00)
--- NOTE | 2017-07-08 11:14 | Nephrology Consultation ---
Nephrology Consultation Date & Providers Date of Consultation: Jul 08, 2017. Primary Care Provider: Mahsa Wang DO Referring Provider: Reason for Consultation ESRD on HD History of Present Illness Mr. Mcintyre is seen at the request of Dr. Villanueva to assist w/ medical management and provide inpatient HD. Medical records in the hospital EMR were reviewed and are summarized as follows: Mr. Mcitnyre has ESRD due to diabetic nephropathy and hypertensive nephrosclerosis. He dialyzes TTS at the [facility] dialysis unit (Dr. Briceno). He was last dialyzed on Saturday. Mr. Mcintyre has had recurrent iron deficiency anemia. 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 Mr. Mcintyre has required blood transfusion in the past due to chronic persistent UGI blood loss. His medical history is also significant for COPD, AODM, ASCVD and HTN. Mr. Mcintyre reports low grade fever, myalgias and cough productive of green sputum for 2 days prior to admission. He has been admitted to the medical service and has tested positive for Influenza A. Past Medical/Surgical History Medical: # Asthma/COPD # Diabetes mellitus # ESRD # CAD # HTN # Chronic liver disease # Colon polyps # Internal hemorrhoids Surgical: # L radiocephalic AVF Allergies Coded Allergies: Metformin (Verified Adverse Reaction, Intermediate, CONFUSION, 06/06/17) Inpatient Medications Current Inpatient Medications Medications (Trade) Dose Ordered Sig/Unique Route Start Time Stop Time Status Last Admin Dose Admin Aspirin (Ecotrin Tab) 81 mg QAM PO 07/08/17 09:00 08/07/17 08:59 07/08/17 08:00 81 MG Calcium Acetate (Phoslo Cap) 1,334 mg TIDM PO 07/07/17 16:45 08/06/17 17:59 07/08/17 08:01 1,334 MG Calcium Carbonate (Tums Chew Tab) 500 mg AC PO 07/07/17 16:00 08/06/17 15:59 07/08/17 08:01 500 MG Cholecalciferol (Vitamin D Tab) 1,000 inter.unit QAM PO 07/08/17 09:00 08/07/17 08:59 07/08/17 08:01 1,000 INTER.UNIT Docusate Sodium (coLACE CAP) 100 mg QAM PO 07/08/17 09:00 08/07/17 08:59 07/08/17 08:02 100 MG Escitalopram Oxalate (Lexapro Tab) 5 mg DAILY PO 07/08/17 09:00 08/07/17 08:59 07/08/17 08:02 5 MG Furosemide (Lasix Tab) 80 mg BID17 PO 07/07/17 17:00 08/06/17 16:59 07/08/17 07:59 80 MG Gabapentin (Neurontin Cap) 100 mg HS PO 07/07/17 21:00 08/06/17 20:59 07/07/17 20:01 100 MG Hydralazine HCl (Apresoline Tab) 50 mg TID PO 07/07/17 21:00 08/06/17 20:59 07/08/17 08:01 50 MG Labetalol HCl (Normodyne Tab) 300 mg BID PO 07/07/17 21:00 08/06/17 20:59 07/08/17 08:00 300 MG Levothyroxine Sodium (Synthroid Tab) 200 mcg DAILYBB PO 07/08/17 06:00 08/07/17 06:59 07/08/17 05:51 200 MCG Lisinopril (Zestril Tab) 40 mg DAILY PO 07/08/17 09:00 08/07/17 08:59 07/08/17 08:01 40 MG Pantoprazole Sodium (Protonix Tab) 40 mg BID PO 07/07/17 21:00 08/06/17 20:59 07/08/17 08:00 40 MG Rosuvastatin Calcium (Crestor Tab) 20 mg QPM PO 07/07/17 21:00 08/06/17 20:59 07/07/17 17:19 20 MG Tamsulosin HCl (Flomax Cap) 0.4 mg QAM PO 07/08/17 09:00 08/07/17 08:59 07/08/17 08:00 0.4 MG Vitamin B Complex/ Vit C/Folic Acid (Nephrocaps) 1 cap DAILY PO 07/08/17 09:00 08/07/17 08:59 07/08/17 07:59 1 CAP Amlodipine Besylate (Norvasc Tab) 10 mg DAILY PO 07/08/17 09:00 08/07/17 08:59 07/08/17 08:01 10 MG Insulin Detemir (Levemir Insulin) 50 units QAM SC 07/08/17 09:00 08/07/17 08:59 07/08/17 08:06 50 UNITS Ipratropium [place] (Atrovent 0.02% 0.5MG/2.5ML Neb) 0.5 mg Q6R INH 07/07/17 15:00 08/06/17 14:59 07/08/17 07:37 0.5 MG Levalbuterol (Xopenex 1.25MG/ 3ML Neb) 1.25 mg Q6R PRN INH 07/07/17 14:30 08/06/17 14:29 Levalbuterol (Xopenex 1.25MG/ 0.5ML Neb) 1.25 mg Q6R INH 07/07/17 15:00 08/06/17 14:59 07/08/17 07:37 1.25 MG Insulin Aspart (novoLOG ASPART) SLIDING SCALE PARAMETER ACHS SC 07/07/17 16:00 08/06/17 15:59 07/07/17 21:26 1 UNITS Levofloxacin 500 mg/Prmx 100 ml @ 100 mls/hr Q2D@1400 IV 07/09/17 14:00 07/14/17 13:59 Acetaminophen (Tylenol Tab) 650 mg Q4H PRN PO 07/07/17 14:30 08/06/17 14:29 07/07/17 20:02 650 MG Al Hydrox/Mg Hydrox/Simethicone (Maalox Max Susp) 15 ml Q4H PRN PO 07/07/17 14:30 08/06/17 14:29 Magnesium Hydroxide (Milk Of Magnesia Susp) 30 ml Q12H PRN PO 07/07/17 14:30 08/06/17 14:29 Ondansetron HCl (Zofran Inj) 4 mg Q6H PRN IV 07/07/17 14:30 08/06/17 14:29 Nitroglycerin (Nitrostat Tab) 0.4 mg UD PRN SL 07/07/17 14:30 08/06/17 14:29 Levothyroxine Sodium (Synthroid Tab) 25 mcg TuTh@0600 PO 07/09/17 06:00 08/08/17 05:59 Haloperidol Lactate (Haldol Inj) 2.5 mg Q6 PRN IV 07/07/17 15:00 08/06/17 14:59 Benzonatate (Tessalon Perles Cap) 100 mg TID PRN PO 07/07/17 15:00 08/06/17 14:59 07/07/17 20:01 100 MG Insulin Detemir (Levemir Insulin) 45 units QPM SC 07/07/17 21:00 08/06/17 20:59 07/07/17 21:25 45 UNITS Levofloxacin (Consult) 1 ea UD PRN N/A 07/07/17 15:45 08/06/17 15:44 Cefepime HCl (Consult) 1 ea UD PRN N/A 07/07/17 15:45 08/06/17 15:44 Cefepime HCl 500 mg/Syringe 5.5 ml @ 5.5 mls/min DAILY@1400 IV 07/08/17 14:00 07/14/17 13:59 Glucose (Glucose 40% Gel) 15-30 GRAMS 15 GRAMS... UD PRN PO 07/07/17 16:45 08/06/17 16:44 Glucose (Glucose Chew Tab) 4-8 Tablets 4 Tabl... UD PRN PO 07/07/17 16:45 08/06/17 16:44 Dextrose (Dextrose 50% 50ML Syringe) 25-50ML OF 50% DW IV FOR... UD PRN IV 07/07/17 16:45 08/06/17 16:44 Glucagon (Glucagon Inj) 1 mg UD PRN SQ 07/07/17 16:45 08/06/17 16:44 Oseltamivir Phosphate (Tamiflu Susp) 30 mg TuThSa@2000 PO 07/09/17 20:00 07/11/17 23:59 Family History Diabetes mellitus Hypertension Kidney disease Kidney stones Negative for CKD/ESRD Social History Smoking Status: Former Smoker Drug Use: none Marital Status: Housing Status: lives with family 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 . Retired. Former smoker Review of Systems Constitutional: + fever Respiratory: + cough, + sputum Cardiovascular: No chest pain Abdomen: No pain, No nausea, No vomiting Genitourinary - Male: No hematuria Integumentary: No rash A complete review of systems was performed. Pertinent positives are noted above. All other systems are negative. Physical Exam Date Time Temp Pulse Resp B/P (MAP) Pulse Ox O2 Delivery O2 Flow Rate FiO2 07/08/17 08:00 Nasal Cannula 3.0 07/08/17 07:40 75 18 93 Nasal Cannula 3.0 07/08/17 07:30 37.7 74 18 171/65 (100) 93 3.0 07/08/17 04:05 95 Nasal Cannula 3.0 07/08/17 03:53 37.8 73 23 165/70 (101) 93 Room Air 3.0 07/08/17 02:22 73 18 91 Nasal Cannula 3.0 07/08/17 00:20 91 Nasal Cannula 3.0 07/08/17 00:15 78 Room Air 07/07/17 23:50 37.3 75 23 147/57 (87) 93 Nasal Cannula 3.0 07/07/17 20:15 91 Nasal Cannula 2.0 07/07/17 19:55 81 18 91 Nasal Cannula 2.0 07/07/17 18:59 38.2 80 16 135/65 (88) 91 Nasal Cannula 2.0 07/07/17 15:48 36.9 73 18 174/64 94 Nasal Cannula 2.0 07/07/17 14:30 76 16 152/58 94 Room Air 07/07/17 12:53 99 Nasal Cannula 2.0 07/07/17 12:46 98 Nasal Cannula 3.0 07/07/17 12:42 79 07/07/17 12:42 37.9 79 20 147/74 84 Room Air General Appearance: no apparent distress Head: normocephalic, atraumatic Eyes: PERRL, EOMI Neck: no adenopathy Respiratory/Chest: + crackles Cardiovascular: regular rate, rhythm Abdomen/GI: normal bowel sounds, non tender, soft Extremities/Musculoskelatal: no calf tenderness, no pedal edema, + pertinent finding (AVF + bruit) Neurologic/Psych: alert, oriented x 3 Laboratory Results Last 24 Hours Test 07/07/17 13:14 07/07/17 13:25 07/07/17 13:35 07/07/17 13:54 Influenza Type A (RT-PCR) POS for Influ A Influenza Type A Antigen Neg for Influ A Influenza Type B Antigen Neg for Influ B Influenza Type B (RT-PCR) Neg for Influ B White Blood Count 4.84 K/uL Red Blood Count 2.93 M/uL Hemoglobin 8.0 g/dL Hematocrit 26.6 % Mean Corpuscular Volume 90.8 fL Mean Corpuscular Hemoglobin 27.3 pg Mean Corpuscular Hemoglobin Concent 30.1 g/dl Platelet Count 226 K/uL Mean Platelet Volume 9.8 fL Neutrophils (%) (Auto) 77.9 % Lymphocytes (%) (Auto) 9.1 % Monocytes (%) (Auto) 8.1 % Eosinophils (%) (Auto) 4.1 % Basophils (%) (Auto) 0.6 % Neutrophils # (Auto) 3.77 K/uL Lymphocytes # (Auto) 0.44 K/uL Monocytes # (Auto) 0.39 K/uL Eosinophils # (Auto) 0.20 K/uL Basophils # (Auto) 0.03 K/uL RDW Standard Deviation 54.4 fL RDW Coefficient of Variation 16.4 % Immature Granulocyte % (Auto) 0.2 % Immature Granulocyte # (Auto) 0.01 K/uL Polychromasia 1+ Prothrombin Time 11.4 SECONDS Prothromb Time International Ratio 1.1 Activated Partial Thromboplast Time 26.1 SECONDS Partial Thromboplastin Ratio 1.0 Sodium Level 138 mmol/L Potassium Level 3.8 mmol/L Chloride Level 97 mmol/L Carbon Dioxide Level 35 mmol/L Anion Gap 6.0 mmol/L Blood Urea Nitrogen 45 mg/dl Creatinine 6.17 mg/dl Est Creatinine Clear Calc Drug Dose 11.8 ml/min Estimated GFR () 9.4 Estimated GFR (Non- 8.1 BUN/Creatinine Ratio 7.3 Random Glucose 148 mg/dl Calcium Level 9.3 mg/dl Magnesium Level 2.2 mg/dl Total Bilirubin 0.6 mg/dl Direct Bilirubin 0.2 mg/dl Aspartate Amino Transf (AST/SGOT) 11 U/L Alanine Aminotransferase (ALT/SGPT) 18 U/L Alkaline Phosphatase 87 U/L Troponin I 0.045 ng/ml Total Protein 6.7 gm/dl Albumin 3.0 gm/dl Lipase 176 U/L Thyroid Stimulating Hormone (TSH) 7.220 uIu/ml Free Thyroxine 1.07 ng/dl Bedside Lactic Acid Venous 0.61 mmol/L Urine Color YELLOW Urine Appearance CLEAR Urine pH 7.0 Urine Specific [place] 1.017 Urine Protein 3+ Urine Glucose (UA) 1+ Urine Ketones NEG Urine Occult Blood NEG Urine Nitrite NEG Urine Bilirubin NEG Urine Urobilinogen NEG Urine Leukocyte Esterase NEG Urine WBC (Auto) 1-5 /hpf Urine RBC (Auto) 0-4 /hpf Urine Hyaline Casts (Auto) 1-5 /lpf Urine Epithelial Cells (Auto) 20-30 /lpf Urine Bacteria (Auto) NEG Test 07/07/17 16:40 07/07/17 20:45 07/08/17 07:32 07/08/17 08:58 Bedside Glucose 143 mg/dl 158 mg/dl White Blood Count 4.45 K/uL Red Blood Count 2.52 M/uL Hemoglobin 6.9 g/dL Hematocrit 22.7 % Mean Corpuscular Volume 90.1 fL Mean Corpuscular Hemoglobin 27.4 pg Mean Corpuscular Hemoglobin Concent 30.4 g/dl RDW Standard Deviation 53.7 fL RDW Coefficient of Variation 16.5 % Platelet Count 196 K/uL Mean Platelet Volume 9.1 fL Absolute Reticulocyte Count 0.10 10^6/uL Percent Reticulocyte Count 4.0 % Sodium Level 138 mmol/L Potassium Level 3.7 mmol/L Chloride Level 99 mmol/L Carbon Dioxide Level 30 mmol/L Anion Gap 9.0 mmol/L Blood Urea Nitrogen 54 mg/dl Creatinine 7.34 mg/dl Est Creatinine Clear Calc Drug Dose 10.7 ml/min Estimated GFR () 7.6 Estimated GFR (Non- 6.6 BUN/Creatinine Ratio 7.4 Random Glucose 57 mg/dl Calcium Level 8.7 mg/dl Ferritin 35.2 ng/ml C-Reactive Protein 2.12 mg/dl Impression (1) Influenza A (2) Fever (3) COPD (chronic obstructive pulmonary disease) (4) End-stage renal disease on hemodialysis (5) Hypertension (6) Diabetes Recommendations END STAGE RENAL DISEASE: -- Volume status and electrolyte balance are acceptable at this time. Will schedule next HD for am -- Will provide HD heparin free due to h/o UGI bleeding -- Protect L arm dialysis access ANEMIA: -- Recommend blood transfusion to maintain Hgb > 8.0 ID: -- Tamiflu dose appropriate for ESRD on HD (30 mg po after each HD x 5 days) -- Blood and urine cultures are pending this am
--- NOTE | 2017-07-08 12:16 | Medical Student: [facility] ---
Med Student History & Physical Date & Time of Service: Jul 08, 2017 at 11:55 Chief Complaint: Acute Respiratory Failure With Hypoxia,Pneumonia Primary Care Physician: Mahsa Wang DO History of Present Illness Source: patient This is a 77 year old male with a history of ESRD on hemodialysis, COPD, DMII, and GI bleed who presented to the ED 2/3 with profound weakness and flu-like symptoms. He was sent to the ED from dialysis, where they noted his hemoglobin and O2 sats to be low. Patient states that the shortness of breath, cough, and weakness had been present since Saturday morning (2 days ago), and that he felt so weak that he could not stand on his own. He also states that he felt congested, and that he was coughing up green/brown mucus. He has a history of GI bleed, with angiodysplasia with gastric adenoma, and he has been iron- deficient anemic with dark stools for several months and has required several transfusions. His Hb in the ED was 8.0. He was placed on 3L oxygen and has remained on that level since, maintaining sats in the low 90s. He is not on oxygen at home. Today he says that he is feeling much better. He is still not back to his normal strength, but he is able to ambulate to the bathroom and to his chair. His breathing has improved, and he is coughing much less than when he came in. Denies fever, chills, headache, nausea, vomiting, abdoinal pain, urinary symptoms. Does have numbness/tingling in feet but this is his baseline, treated with gabapentin. PCR for influenza A is positive. No increase in WBC. Hb/Hct = 6.9/22.7; both decreased from yesterday. Past Medical/Surgical History Medical Problems: (1) Dependence on renal dialysis Status: Acute (2) Elevated troponin Status: Acute (3) Elevated troponin Status: Acute (4) Fever Status: Acute (5) Hyperglycemia due to type 2 diabetes mellitus Status: Acute (6) Hypoxia Status: Acute (7) Leg pain, left Status: Acute (8) Pain of left calf Status: Acute (9) Pulmonary vascular congestion Status: Acute (10) Substernal chest pain Status: Acute (11) Uremia Status: Acute Social History Smoking Status: Former Smoker Drug Use: none Marital Status: Housing status: lives with family Occupational Status: retired Immunizations History of Influenza Vaccine: Unknown History of Tetanus Vaccine?: unknown History of Pneumococcal: Yes Pneumococcal Date: Dec 19, 2007 History of Hepatitis B Vaccine: Unknown Allergies Coded Allergies: Metformin (Verified Adverse Reaction, Intermediate, CONFUSION, 06/06/17) Medications Amlodipine Besylate (Amlodipine Besylate), 10 MG PO DAILY Aspirin (Aspirin Ec), 81 MG PO QAM Calcium Acetate (Phoslo 667 Mg), 1,334 MG PO AC Calcium Carbonate (Tums), 500 MG PO AC Cholecalciferol (Vitamin D3), 1,000 INTER.UNIT PO QAM Cyanocobalamin (Vitamin B12), 1,000 MCG PO QAM Docusate Sodium (Docusate Sodium), 100 MG PO QAM Escitalopram Oxalate (Lexapro), 5 MG PO DAILY Furosemide (Furosemide), 80 MG PO BID Gabapentin (Neurontin), 100 MG PO HS Hydralazine HCl (Hydralazine HCl), 50 MG PO TID Insulin Detemir (Levemir), 45 UNITS SC QPM Insulin Detemir (Levemir), 50 UNITS SC QAM Ipratropium [place] (Atrovent Hfa), 2 PUFFS INH Q6H Labetalol HCl (Labetalol HCl), 300 MG PO BID Levalbuterol Tartrate (Levalbuterol Tartrate Hfa), 2 PUFFS INH Q6H Levothyroxine Sodium (Levothyroxine Sodium), 25 MCG PO 2XWK Levothyroxine Sodium (Levothyroxine Sodium), 200 MCG PO QAM Lisinopril (Lisinopril), 40 MG PO DAILY Pantoprazole (Pantoprazole Sodium), 40 MG PO BID Rosuvastatin Calcium (Rosuvastatin Calcium), 20 MG PO QPM Tamsulosin HCl (Tamsulosin HCl), 0.4 MG PO QAM Vitamin B Cmplx/Vitc/Folic Ac (Nephrocaps), 1 CAP PO DAILY Review of Systems Constitutional: No fever, No chills, No sweats Eyes: No worsening of vision ENT: + nasal symptoms (congestion), No hearing loss Respiratory: + cough, + shortness of breath, + dyspnea on exertion, No sputum ( resolved), No wheezing Cardiovascular: No chest pain, No edema Abdomen: No pain, No nausea, No vomiting Musculoskeletal: No joint pain, No muscle pain Genitourinary - Male: No hematuria, No dysuria, No urinary frequency Neurologic: + weakness, + numbness/tingling (feet; baseline for him) Endocrine: + fatigue Hematologic / Lymphatic: + abnormal bleeding/bruising (GI source likely) Integumentary: No rash, No itch Physical Exam Vital Signs (24 Hours) Date Time Temp Pulse Resp B/P (MAP) Pulse Ox O2 Delivery O2 Flow Rate FiO2 07/08/17 11:26 37.6 70 18 154/61 (92) 93 3.0 07/08/17 08:00 Nasal Cannula 3.0 07/08/17 07:40 75 18 93 Nasal Cannula 3.0 07/08/17 07:30 37.7 74 18 171/65 (100) 93 3.0 07/08/17 04:05 95 Nasal Cannula 3.0 07/08/17 03:53 37.8 73 23 165/70 (101) 93 Room Air 3.0 07/08/17 02:22 73 18 91 Nasal Cannula 3.0 07/08/17 00:20 91 Nasal Cannula 3.0 07/08/17 00:15 78 Room Air 07/07/17 23:50 37.3 75 23 147/57 (87) 93 Nasal Cannula 3.0 07/07/17 20:15 91 Nasal Cannula 2.0 07/07/17 19:55 81 18 91 Nasal Cannula 2.0 07/07/17 18:59 38.2 80 16 135/65 (88) 91 Nasal Cannula 2.0 07/07/17 15:48 36.9 73 18 174/64 94 Nasal Cannula 2.0 07/07/17 14:30 76 16 152/58 94 Room Air 07/07/17 12:53 99 Nasal Cannula 2.0 07/07/17 12:46 98 Nasal Cannula 3.0 07/07/17 12:42 79 07/07/17 12:42 37.9 79 20 147/74 84 Room Air General Appearance: WD/WN, + mild distress Head: normocephalic, atraumatic Eyes: PERRL, EOMI, + pertinent finding (small cyst in corner of right eye) ENT: normal ENT inspection Neck: supple, no adenopathy Respiratory/Chest: chest non-tender, no accessory muscle use, + crackles (left base) Cardiovascular: regular rate, rhythm, + systolic murmur Abdomen/GI: normal bowel sounds, non tender, soft Back: normal inspection, no CVA tenderness Extremities/Musculoskelatal: normal inspection (AVF), no calf tenderness, no pedal edema Neurologic/Psych: alert, normal mood/affect, oriented x 3 Skin: warm/dry, no rash, + pertinent finding (slightly pale) Lymphatic: no adenopathy Diagnostics Laboratory Results Results Past 24 Hours Test 07/07/17 13:14 07/07/17 13:25 07/07/17 13:35 07/07/17 13:54 Range/Units Influenza Type A (RT-PCR) POS for Influ A NEG Influenza Type A Antigen Neg for Influ A NEG Influenza Type B Antigen Neg for Influ B NEG Influenza Type B (RT-PCR) Neg for Influ B NEG White Blood Count 4.84 4.8-10.8 K/uL Red Blood Count 2.93 4.7-6.1 M/uL Hemoglobin 8.0 14.0-18.0 g/dL Hematocrit 26.6 42-52 % Mean Corpuscular Volume 90.8 80-100 fL Mean Corpuscular Hemoglobin 27.3 25-34 pg Mean Corpuscular Hemoglobin Concent 30.1 32-36 g/dl Platelet Count 226 130-400 K/uL Mean Platelet Volume 9.8 7.4-10.4 fL Neutrophils (%) (Auto) 77.9 % Lymphocytes (%) (Auto) 9.1 % Monocytes (%) (Auto) 8.1 % Eosinophils (%) (Auto) 4.1 % Basophils (%) (Auto) 0.6 % Neutrophils # (Auto) 3.77 1.4-6.5 K/uL Lymphocytes # (Auto) 0.44 1.2-3.4 K/uL Monocytes # (Auto) 0.39 0.11-0.59 K/uL Eosinophils # (Auto) 0.20 0-0.5 K/uL Basophils # (Auto) 0.03 0-0.2 K/uL RDW Standard Deviation 54.4 36.4-46.3 fL RDW Coefficient of Variation 16.4 11.5-14.5 % Immature Granulocyte % (Auto) 0.2 % Immature Granulocyte # (Auto) 0.01 0.00-0.02 K/uL Polychromasia 1+ Prothrombin Time 11.4 9.0-12.0 SECONDS Prothromb Time International Ratio 1.1 0.9-1.1 Activated Partial Thromboplast Time 26.1 21.0-31.0 SECONDS Partial Thromboplastin Ratio 1.0 Sodium Level 138 136-145 mmol/L Potassium Level 3.8 3.5-5.1 mmol/L Chloride Level 97 98-107 mmol/L Carbon Dioxide Level 35 21-32 mmol/L Anion Gap 6.0 3-11 mmol/L Blood Urea Nitrogen 45 7-18 mg/dl Creatinine 6.17 0.60-1.40 mg/dl Est Creatinine Clear Calc Drug Dose 11.8 ml/min Estimated GFR () 9.4 Estimated GFR (Non- 8.1 BUN/Creatinine Ratio 7.3 10-20 Random Glucose 148 70-99 mg/dl Calcium Level 9.3 8.5-10.1 mg/dl Magnesium Level 2.2 1.8-2.4 mg/dl Total Bilirubin 0.6 0.2-1 mg/dl Direct Bilirubin 0.2 0-0.2 mg/dl Aspartate Amino Transf (AST/SGOT) 11 15-37 U/L Alanine Aminotransferase (ALT/SGPT) 18 12-78 U/L Alkaline Phosphatase 87 45-117 U/L Troponin I 0.045 0-0.045 ng/ml Total Protein 6.7 6.4-8.2 gm/dl Albumin 3.0 3.4-5.0 gm/dl Lipase 176 73-393 U/L Thyroid Stimulating Hormone (TSH) 7.220 0.300-4.500 uIu/ml Free Thyroxine 1.07 0.80-1.60 ng/dl Bedside Lactic Acid Venous 0.61 0.90-1.70 mmol/L Urine Color YELLOW Urine Appearance CLEAR CLEAR Urine pH 7.0 4.5-7.5 Urine Specific [place] 1.017 1.000-1.030 Urine Protein 3+ NEG Urine Glucose (UA) 1+ NEG Urine Ketones NEG NEG Urine Occult Blood NEG NEG Urine Nitrite NEG NEG Urine Bilirubin NEG NEG Urine Urobilinogen NEG NEG Urine Leukocyte Esterase NEG NEG Urine WBC (Auto) 1-5 0-5 /hpf Urine RBC (Auto) 0-4 0-4 /hpf Urine Hyaline Casts (Auto) 1-5 0-5 /lpf Urine Epithelial Cells (Auto) 20-30 0-5 /lpf Urine Bacteria (Auto) NEG NEG Test 07/07/17 16:40 07/07/17 20:45 07/08/17 06:34 07/08/17 06:35 Range/Units Bedside Glucose 143 158 77 73 70-99 mg/dl Test 07/08/17 07:32 07/08/17 08:58 07/08/17 11:14 Range/Units White Blood Count 4.45 4.8-10.8 K/uL Red Blood Count 2.52 4.7-6.1 M/uL Hemoglobin 6.9 14.0-18.0 g/dL Hematocrit 22.7 42-52 % Mean Corpuscular Volume 90.1 80-100 fL Mean Corpuscular Hemoglobin 27.4 25-34 pg Mean Corpuscular Hemoglobin Concent 30.4 32-36 g/dl RDW Standard Deviation 53.7 36.4-46.3 fL RDW Coefficient of Variation 16.5 11.5-14.5 % Platelet Count 196 130-400 K/uL Mean Platelet Volume 9.1 7.4-10.4 fL Absolute Reticulocyte Count 0.10 0.02-0.10 10^6/uL Percent Reticulocyte Count 4.0 0.5-2.0 % Sodium Level 138 136-145 mmol/L Potassium Level 3.7 3.5-5.1 mmol/L Chloride Level 99 98-107 mmol/L Carbon Dioxide Level 30 21-32 mmol/L Anion Gap 9.0 3-11 mmol/L Blood Urea Nitrogen 54 7-18 mg/dl Creatinine 7.34 0.60-1.40 mg/dl Est Creatinine Clear Calc Drug Dose 10.7 ml/min Estimated GFR () 7.6 Estimated GFR (Non- 6.6 BUN/Creatinine Ratio 7.4 10-20 Random Glucose 57 70-99 mg/dl Calcium Level 8.7 8.5-10.1 mg/dl Ferritin 35.2 8.0-388.0 ng/ml C-Reactive Protein 2.12 0-0.29 mg/dl Procalcitonin 0.17 0-0.5 ng/ml Bedside Glucose 86 70-99 mg/dl Microbiology Results 2/4/18 Blood Culture, Received Pending 07/07/17 Blood Culture, Received Pending 07/07/17 Urine Culture - Preliminary, Resulted PIN-POINT GROWTH PRESENT, REINCUBATING. Impression Assessment and Plan Assessment: This is a 77-year-old male with a history of ESRD, COPD, DMII, and GI bleed who presented to the ED 07/07 with profound weakness and flu-like symptoms. DDx includes influenza, iron-deficient anemia, pneumonia, COPD exacerbation, reactive airway disease, PE, CHF. Plan: Primary: influenza A infection, confirmed with PCR -Start Tamiflu -Maintain hydration -Maintain oxygen sats above 90%, currently on 3L nasal canula; decrease O2 as tolerated -D/C antibiotics since illness is viral - Levaquin, cefepime COPD: -Monitor O2 sats as above -Continue on patient's home inhalers -Nebulized albuterol PRN -Consider pulmonary consult if breathing does not improve Anemia: -Hb/Hct = 6.9/22.7, decreased from yesterday. Transfuse 1 unit PRBC -Monitor labs daily -Continue Protoniz as started outpatient for gastric polyp/bleeding -Hold aspirin DMII: -Continue home regimen -Monitor blood glucose before meals Hypothyroidism: -Monitor TSH, retest free T4 -Adjust Synthroid based on T4 results Level of Care Telemetry Advanced Directives Existing Living Will: No Existing Power of Head Track Coach: Yes (Daughters ) Resuscitation Status FULL RESUSCITATION
[2017-07-08] MEDS ORDERED: CEFEPIME IV 500 MG in SYRINGE 0 ML IV SCH (14:00)
--- NOTE | 2017-07-08 18:07 | Progress Note ---
Subjective Date of Service: Jul 08, 2017. Subjective Pt evaluation today including: conversation w/ patient, physical exam, chart review, lab review, review of inpatient medication list feeling better breathing better still needs oxygen ok for additional blood no further GI bleeding that he's seen. for capsule endoscopy as outpt although notes this appt was cancelled for now no f//cs no pleuritic pain breathing much better Problem List Medical Problems: (1) Dependence on renal dialysis Status: Acute (2) Elevated troponin Status: Acute (3) Elevated troponin Status: Acute (4) Fever Status: Acute (5) Hyperglycemia due to type 2 diabetes mellitus Status: Acute (6) Hypoxia Status: Acute (7) Leg pain, left Status: Acute (8) Pain of left calf Status: Acute (9) Pulmonary vascular congestion Status: Acute (10) Substernal chest pain Status: Acute (11) Uremia Status: Acute Review of Systems all other ROS otherwise negative except for as above Objective Vital Signs Date Time Temp Pulse Resp B/P (MAP) Pulse Ox O2 Delivery O2 Flow Rate FiO2 07/08/17 17:26 36.3 58 18 124/61 94 2.0 07/08/17 17:14 36.3 64 20 122/55 94 2.0 07/08/17 16:21 36.5 74 18 173/69 (103) 96 Nasal Cannula 2.0 07/08/17 14:15 67 18 91 Nasal Cannula 2.0 07/08/17 12:00 Nasal Cannula 3.0 07/08/17 11:26 37.6 70 18 154/61 (92) 93 3.0 07/08/17 08:00 Nasal Cannula 3.0 07/08/17 07:40 75 18 93 Nasal Cannula 3.0 07/08/17 07:30 37.7 74 18 171/65 (100) 93 3.0 07/08/17 04:05 95 Nasal Cannula 3.0 07/08/17 03:53 37.8 73 23 165/70 (101) 93 Room Air 3.0 07/08/17 02:22 73 18 91 Nasal Cannula 3.0 07/08/17 00:20 91 Nasal Cannula 3.0 07/08/17 00:15 78 Room Air 07/07/17 23:50 37.3 75 23 147/57 (87) 93 Nasal Cannula 3.0 07/07/17 20:15 91 Nasal Cannula 2.0 07/07/17 19:55 81 18 91 Nasal Cannula 2.0 07/07/17 18:59 38.2 80 16 135/65 (88) 91 Nasal Cannula 2.0 Physical Exam General Appearance: no apparent distress Eyes: EOMI ENT: hearing grossly normal Neck: trachea midline Respiratory/Chest: no respiratory distress, no accessory muscle use, + pertinent finding (diffuse scattered wheeze and rhonchi) Extremities: normal range of motion Neurologic/Psychiatric: sleeve setter II-XII nml as tested, alert, normal mood/affect Skin: normal color Laboratory Results Last 24 Hours Test 07/07/17 20:45 07/08/17 06:35 07/08/17 07:32 07/08/17 08:58 Bedside Glucose 158 mg/dl 73 mg/dl White Blood Count 4.45 K/uL Red Blood Count 2.52 M/uL Hemoglobin 6.9 g/dL Hematocrit 22.7 % Mean Corpuscular Volume 90.1 fL Mean Corpuscular Hemoglobin 27.4 pg Mean Corpuscular Hemoglobin Concent 30.4 g/dl RDW Standard Deviation 53.7 fL RDW Coefficient of Variation 16.5 % Platelet Count 196 K/uL Mean Platelet Volume 9.1 fL Absolute Reticulocyte Count 0.10 10^6/uL Percent Reticulocyte Count 4.0 % Sodium Level 138 mmol/L Potassium Level 3.7 mmol/L Chloride Level 99 mmol/L Carbon Dioxide Level 30 mmol/L Anion Gap 9.0 mmol/L Blood Urea Nitrogen 54 mg/dl Creatinine 7.34 mg/dl Est Creatinine Clear Calc Drug Dose 10.7 ml/min Estimated GFR () 7.6 Estimated GFR (Non- 6.6 BUN/Creatinine Ratio 7.4 Random Glucose 57 mg/dl Calcium Level 8.7 mg/dl Ferritin 35.2 ng/ml C-Reactive Protein 2.12 mg/dl Procalcitonin 0.17 ng/ml Test 07/08/17 11:14 07/08/17 16:32 07/08/17 16:55 Bedside Glucose 86 mg/dl 27 mg/dl 116 mg/dl Assessment and Plan acute hypoxic respiratory failure due to influenza -tamiflu -O2 -supportive care questionable pneumonia -appearing all flu related, hold abx, follow counts and follow; no compelling evidence of respiratory illness beyond the flu anemia - hold aspirin, counts dropped but no appearance of blood loss. since Hgb 6.9 - transfuse 1 unit. continue to follow. check retic and iron studies. if counts stay stable after transfusion then ongoing outpt w/u - if continues to drop then inpt GI re-eval Diabetes - continue levemir, A1c's reasonable, sugars reasonable Hypothyroidism - continue synthroid, f/u TSH as otupt ~4wks Hypertension - continue his amlodipine, Lasix, lisinopril, Apresoline, Normodyne depression - continue his Lexapro DVT prevention will be SCDs
[2017-07-08] MEDS: GABAPENTIN 100 MG CAP PO SCH (20:40)
[2017-07-08] MEDS: ROSUVASTATIN CALCIUM 20 MG TAB PO SCH (20:40)
[2017-07-08] MEDS: INSULIN DETEMIR SC SCH (21:30)
[2017-07-09] VITALS (31 sets, daily range): BP systolic 132–170; BP diastolic 55–81; PULSE 18–76; TEMP 36.3–37; O2SAT 86–96; Ht 185.4 cm; Wt 100.0 kg
[2017-07-09] MEDS: LEVALBUTEROL 1.25MG/0.5ML NEB INH SCH ×4 (02:33→19:12)
[2017-07-09] MEDS: IPRATROPIUM BROMIDE NEB SOLN 0.02% 2.5 ML VIAL INH SCH ×4 (02:33→19:12)
[2017-07-09] MEDS ORDERED: LEVOTHYROXINE 25 MCG TAB PO SCH (06:00)
[2017-07-09] MEDS: LEVOTHYROXINE 200 MCG TAB PO SCH (06:11)
[2017-07-09] MEDS: BENZONATATE 100MG CAP PO PRN ×2 (06:11→13:49)
[2017-07-09] MEDS: INSULIN ASPART 100 UNITS/ML 3 ML PEN SC SCH ×4 (07:00→21:00)
[2017-07-09 07:44] LABS: BASO % 0.6 %; BASO ABS # 0.02 K/uL (0-0.2); EOS % 4.1 %; EOS ABS # 0.14 K/uL (0-0.5); HEMATOCRIT 25.1 % (42-52); HEMOGLOBIN 7.8 g/dL (14.0-18.0); IG# 0.01 K/uL (0.00-0.02); LYMPH ABS # 0.55 K/uL (1.2-3.4); MEAN CELL VOLUME 87.5 fL (80-100); MEAN CORPUSCULAR HEMOGLOBIN 27.2 pg (25-34); MEAN CORPUSCULAR HGB CONC 31.1 g/dl (32-36); MEAN PLATELET VOLUME 9.7 fL (7.4-10.4); MONO % 20.1 %; MONO ABS # 0.69 K/uL (0.11-0.59); NEUT % 58.9 %; NEUT ABS # 2.02 K/uL (1.4-6.5); PLATELET COUNT 205 K/uL (130-400); RED CELL DISTRIBUTION WIDTH CV 16.3 % (11.5-14.5); RED CELL DISTRIBUTION WIDTH SD 52.7 fL (36.4-46.3); WHITE BLOOD COUNT 3.43 K/uL (4.8-10.8)
[2017-07-09] MEDS ORDERED: EPOETIN ALFA 10,000 UNITS/ML VIAL IV. SCH (08:00)
[2017-07-09] MEDS: CALCIUM CARBONATE 500 MG CHEWABLE PO SCH ×3 (08:13→17:25)
[2017-07-09] MEDS: TAMSULOSIN HCL 0.4 MG CAP PO SCH (08:13)
[2017-07-09] MEDS: NEPHROCAPS PO SCH (08:13)
[2017-07-09] MEDS: CHOLECALCIFEROL 1000 INTER.UNIT TAB PO SCH (08:14)
[2017-07-09] MEDS: ESCITALOPRAM OXALATE 10 MG TAB PO SCH (08:14)
[2017-07-09] MEDS: PANTOprazole SOD 40 MG TAB PO SCH ×2 (08:14→21:39)
[2017-07-09] MEDS: ASPIRIN 81 MG ECTAB PO SCH (08:15)
[2017-07-09] MEDS: CALCIUM ACETATE 667MG GELCAP PO SCH ×3 (08:15→17:26)
[2017-07-09] MEDS: DOCUSATE SODIUM 100 MG CAP PO SCH (08:15)
[2017-07-09] MEDS: FUROSEMIDE 80 MG TAB PO SCH ×2 (08:17→17:26)
[2017-07-09] MEDS: INSULIN DETEMIR SC SCH (09:00)
--- NOTE | 2017-07-09 10:43 | Nephrology Progress Note ---
Nephrology Progress Note Date of Service Jul 09, 2017. Chief Complaint ESRD on HD Subjective Mr. Mcintyre was seen & examined in preparation for HD today. He is influenza positive and receiving Tamiflu. This morning Mr. Mcintyre reports that he is subjectively improved. He denies fever or dyspnea. Hgb has been trending down. Patient was transfused 1 unit PRBC yesterday. He denies overt blood loss. Review of Systems Constitutional: No fever Cardiovascular: No chest pain Respiratory: No dyspnea at rest Abdomen: No pain, No nausea, No vomiting Extremities: No leg edema A complete review of systems was performed. Pertinent positives are noted above. All other systems are negative. Vital Signs Last 8 Hrs Date Time Temp Pulse Resp B/P (MAP) Pulse Ox O2 Delivery O2 Flow Rate FiO2 07/09/17 10:15 69 154/77 07/09/17 10:10 36.3 65 133/55 07/09/17 10:00 65 133/55 07/09/17 09:45 69 157/74 07/09/17 09:30 65 149/69 07/09/17 09:20 65 144/68 07/09/17 09:08 63 150/69 07/09/17 09:00 36.4 62 148/68 (94) 07/09/17 08:00 Room Air 2.0 07/09/17 07:37 64 16 86 Room Air 07/09/17 07:32 36.8 18 18 146/61 (89) 95 Room Air 07/09/17 04:00 Nasal Cannula 2.0 07/09/17 03:50 36.7 69 18 155/63 (93) 96 Nasal Cannula 3.0 I & O 24-Hour Column 07/10/17 08:00 Intake Total 310 ml Balance 310 ml Last Recorded Weight Weight (Kilograms): 100.000 Physical Exam General Appearance: no apparent distress Head: normocephalic, atraumatic Eyes: PERRL Neck: no adenopathy Respiratory/Chest: lungs clear Cardiovascular: regular rate, rhythm Abdomen/GI: normal bowel sounds, non tender, soft Extremities/Musculoskelatal: no pedal edema Neurologic/Psych: alert, oriented x 3 Family History Diabetes mellitus Hypertension Kidney disease Kidney stones Negative for CKD/ESRD Social History Drug Use: none Marital Status: Housing Status: lives with family 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 . Retired. Former smoker Laboratory Results Past 24 Hours 07/09/17 07:20 Red Blood Count 2.87, Mean Corpuscular Volume 87.5, Mean Corpuscular Hemoglobin 27.2, Mean Corpuscular Hemoglobin Concent 31.1, Mean Platelet Volume 9.7, Neutrophils (%) (Auto) 58.9, Lymphocytes (%) (Auto) 16.0, Monocytes (%) (Auto) 20.1, Eosinophils (%) (Auto) 4.1, Basophils (%) (Auto) 0.6, Neutrophils # (Auto ) 2.02, Lymphocytes # (Auto) 0.55, Monocytes # (Auto) 0.69, Eosinophils # (Auto ) 0.14, Basophils # (Auto) 0.02 Test 07/08/17 11:14 07/08/17 16:32 07/08/17 16:55 07/08/17 21:01 Bedside Glucose 86 mg/dl (70-99) 27 mg/dl (70-99) 116 mg/dl (70-99) 74 mg/dl (70-99) Test 07/09/17 00:08 07/09/17 03:58 07/09/17 06:47 07/09/17 07:20 Bedside Glucose 140 mg/dl (70-99) 152 mg/dl (70-99) 131 mg/dl (70-99) White Blood Count 3.43 K/uL (4.8-10.8) Red Blood Count 2.87 M/uL (4.7-6.1) Hemoglobin 7.8 g/dL (14.0-18.0) Hematocrit 25.1 % (42-52) Mean Corpuscular Volume 87.5 fL (80-100) Mean Corpuscular Hemoglobin 27.2 pg (25-34) Mean Corpuscular Hemoglobin Concent 31.1 g/dl (32-36) Platelet Count 205 K/uL (130-400) Mean Platelet Volume 9.7 fL (7.4-10.4) Neutrophils (%) (Auto) 58.9 % Lymphocytes (%) (Auto) 16.0 % Monocytes (%) (Auto) 20.1 % Eosinophils (%) (Auto) 4.1 % Basophils (%) (Auto) 0.6 % Neutrophils # (Auto) 2.02 K/uL (1.4-6.5) Lymphocytes # (Auto) 0.55 K/uL (1.2-3.4) Monocytes # (Auto) 0.69 K/uL (0.11-0.59) Eosinophils # (Auto) 0.14 K/uL (0-0.5) Basophils # (Auto) 0.02 K/uL (0-0.2) RDW Standard Deviation 52.7 fL (36.4-46.3) RDW Coefficient of Variation 16.3 % (11.5-14.5) Immature Granulocyte % (Auto) 0.3 % Immature Granulocyte # (Auto) 0.01 K/uL (0.00-0.02) Large Platelets 2+ Giant Platelets 1+ Poikilocytosis PRESENT Anisocytosis PRESENT Allergies Coded Allergies: Metformin (Verified Adverse Reaction, Intermediate, CONFUSION, 06/06/17) Medications Current Inpatient Medications Medications (Trade) Dose Ordered Sig/Unique Route Start Time Stop Time Status Last Admin Dose Admin Aspirin (Ecotrin Tab) 81 mg QAM PO 07/08/17 09:00 08/07/17 08:59 07/09/17 08:15 81 MG Calcium Acetate (Phoslo Cap) 1,334 mg TIDM PO 07/07/17 16:45 08/06/17 17:59 07/09/17 08:15 1,334 MG Calcium Carbonate (Tums Chew Tab) 500 mg AC PO 07/07/17 16:00 08/06/17 15:59 07/09/17 08:13 500 MG Cholecalciferol (Vitamin D Tab) 1,000 inter.unit QAM PO 07/08/17 09:00 08/07/17 08:59 07/09/17 08:14 1,000 INTER.UNIT Docusate Sodium (coLACE CAP) 100 mg QAM PO 07/08/17 09:00 08/07/17 08:59 07/09/17 08:15 100 MG Escitalopram Oxalate (Lexapro Tab) 5 mg DAILY PO 07/08/17 09:00 08/07/17 08:59 07/09/17 08:14 5 MG Furosemide (Lasix Tab) 80 mg BID17 PO 07/07/17 17:00 08/06/17 16:59 07/09/17 08:17 80 MG Gabapentin (Neurontin Cap) 100 mg HS PO 07/07/17 21:00 08/06/17 20:59 07/08/17 20:40 100 MG Hydralazine HCl (Apresoline Tab) 50 mg TID PO 07/07/17 21:00 08/06/17 20:59 07/08/17 20:39 50 MG Labetalol HCl (Normodyne Tab) 300 mg BID PO 07/07/17 21:00 08/06/17 20:59 07/08/17 20:40 300 MG Levothyroxine Sodium (Synthroid Tab) 200 mcg DAILYBB PO 07/08/17 06:00 08/07/17 06:59 07/09/17 06:11 200 MCG Lisinopril (Zestril Tab) 40 mg DAILY PO 07/08/17 09:00 08/07/17 08:59 07/08/17 08:01 40 MG Pantoprazole Sodium (Protonix Tab) 40 mg BID PO 07/07/17 21:00 08/06/17 20:59 07/09/17 08:14 40 MG Rosuvastatin Calcium (Crestor Tab) 20 mg QPM PO 07/07/17 21:00 08/06/17 20:59 07/08/17 20:40 20 MG Tamsulosin HCl (Flomax Cap) 0.4 mg QAM PO 07/08/17 09:00 08/07/17 08:59 07/09/17 08:13 0.4 MG Vitamin B Complex/ Vit C/Folic Acid (Nephrocaps) 1 cap DAILY PO 07/08/17 09:00 08/07/17 08:59 07/09/17 08:13 1 CAP Amlodipine Besylate (Norvasc Tab) 10 mg DAILY PO 07/08/17 09:00 08/07/17 08:59 07/08/17 08:01 10 MG Ipratropium [place] (Atrovent 0.02% 0.5MG/2.5ML Neb) 0.5 mg Q6R INH 07/07/17 15:00 08/06/17 14:59 07/09/17 07:37 0.5 MG Levalbuterol (Xopenex 1.25MG/ 3ML Neb) 1.25 mg Q6R PRN INH 07/07/17 14:30 08/06/17 14:29 Levalbuterol (Xopenex 1.25MG/ 0.5ML Neb) 1.25 mg Q6R INH 07/07/17 15:00 08/06/17 14:59 07/09/17 07:37 1.25 MG Insulin Aspart (novoLOG ASPART) SLIDING SCALE PARAMETER ACHS SC 07/07/17 16:00 08/06/17 15:59 07/07/17 21:26 1 UNITS Acetaminophen (Tylenol Tab) 650 mg Q4H PRN PO 07/07/17 14:30 08/06/17 14:29 07/07/17 20:02 650 MG Al Hydrox/Mg Hydrox/Simethicone (Maalox Max Susp) 15 ml Q4H PRN PO 07/07/17 14:30 08/06/17 14:29 Magnesium Hydroxide (Milk Of Magnesia Susp) 30 ml Q12H PRN PO 07/07/17 14:30 08/06/17 14:29 Ondansetron HCl (Zofran Inj) 4 mg Q6H PRN IV 07/07/17 14:30 08/06/17 14:29 Nitroglycerin (Nitrostat Tab) 0.4 mg UD PRN SL 07/07/17 14:30 08/06/17 14:29 Levothyroxine Sodium (Synthroid Tab) 25 mcg TuTh@0600 PO 07/09/17 06:00 08/08/17 05:59 07/09/17 06:11 25 MCG Haloperidol Lactate (Haldol Inj) 2.5 mg Q6 PRN IV 07/07/17 15:00 08/06/17 14:59 Benzonatate (Tessalon Perles Cap) 100 mg TID PRN PO 07/07/17 15:00 08/06/17 14:59 07/09/17 06:11 100 MG Glucose (Glucose 40% Gel) 15-30 GRAMS 15 GRAMS... UD PRN PO 07/07/17 16:45 08/06/17 16:44 Glucose (Glucose Chew Tab) 4-8 Tablets 4 Tabl... UD PRN PO 07/07/17 16:45 08/06/17 16:44 Dextrose (Dextrose 50% 50ML Syringe) 25-50ML OF 50% DW IV FOR... UD PRN IV 07/07/17 16:45 08/06/17 16:44 07/08/17 16:35 50 ML Glucagon (Glucagon Inj) 1 mg UD PRN SQ 07/07/17 16:45 08/06/17 16:44 Oseltamivir Phosphate (Tamiflu Susp) 30 mg TuThSa@2000 PO 07/09/17 20:00 07/11/17 23:59 Epoetin Zheng (Procrit Inj) 10,000 units TODAY@0800 IV. 07/09/17 08:00 07/09/17 15:00 Heparin Sodium (Porcine) (No Heparin In Dialysis) 1 ea TODAY@0800 N/A 07/09/17 08:00 07/09/17 15:00 Insulin Detemir (Levemir Insulin) 35 units QPM SC 07/09/17 21:00 08/06/17 20:59 Insulin Detemir (Levemir Insulin) 45 units QAM SC 07/09/17 09:00 08/07/17 08:59 Impression (1) Influenza A (2) Fever (3) COPD (chronic obstructive pulmonary disease) (4) End-stage renal disease on hemodialysis (5) Hypertension (6) Diabetes Recommendations END STAGE RENAL DISEASE: -- HD today. HD RN aware -- Will provide HD heparin free due to h/o UGI bleeding -- Will transfuse one unit PRBC on dialysis. Target Hgb > 8.0 -- Protect L arm dialysis access ANEMIA: -- Recommend blood transfusion to maintain Hgb > 8.0 -- Monitor for overt bleeding ID: -- Tamiflu dose appropriate for ESRD on HD (30 mg po after each HD x 5 days) -- Blood and urine cultures are NGTD
--- NOTE | 2017-07-09 12:23 | Medical Student: [facility] ---
Med Student Progress Note Date of Service Jul 09, 2017. Subjective Pt evaluation today including: conversation w/ patient Voiding: no voiding problems Mr. Mcintyre is a 77 year old male who arrived to the ED on 07/06 from dialysis due to anemia, hypoxia, and profound weakness. He was tested and found positive for influenza A, and his Hb dropped from 8 to 6.9 during his stay. After receiving Tamiflu, IV fluids, and 1 unit of PRBCs, he is feeling much better today. He says that his strength is returning, and he is able to ambulate with minimal assistance around his room. He says that his breathing has improved ( though he is still on 2L O2 via nasal cannula), and he is coughing less often. Denies fevers, chills, chest pain, headache, nausea, vomiting, pain. Previously had melena from an unknown bleeding source, but he has not had a bowel movement at the hospital since arrival. He was on his way to dialysis as we spoke. Review of Systems Constitutional: No fever, No chills Eyes: No worsening of vision ENT: No hearing loss Respiratory: + cough, + shortness of breath, No sputum, No wheezing Cardiac: No chest pain, No orthopnea Abdomen: + GI bleeding (See HPI), No pain, No nausea, No vomiting, No diarrhea Male : No dysuria, No urinary frequency Neurologic: + numbness/tingling (chronic neuropathy) Heme: + abnormal bleeding/bruising Skin: No rash, No itch All Other Systems: Reviewed and Negative Objective Vital Signs Date Time Temp Pulse Resp B/P (MAP) Pulse Ox O2 Delivery O2 Flow Rate FiO2 07/09/17 12:00 70 154/74 07/09/17 11:45 67 155/66 07/09/17 11:30 69 155/75 07/09/17 11:15 66 158/67 07/09/17 11:00 68 159/79 07/09/17 10:45 75 132/60 07/09/17 10:30 69 135/70 07/09/17 10:15 69 154/77 07/09/17 10:10 36.3 65 133/55 07/09/17 10:00 65 133/55 07/09/17 09:45 69 157/74 07/09/17 09:30 65 149/69 07/09/17 09:20 65 144/68 07/09/17 09:08 63 150/69 07/09/17 09:00 36.4 62 148/68 (94) 07/09/17 08:00 Room Air 2.0 07/09/17 07:37 64 16 86 Room Air 07/09/17 07:32 36.8 18 18 146/61 (89) 95 Room Air 07/09/17 04:00 Nasal Cannula 2.0 07/09/17 03:50 36.7 69 18 155/63 (93) 96 Nasal Cannula 3.0 07/09/17 02:15 60 18 90 Nasal Cannula 2.0 07/08/17 23:59 Nasal Cannula 2.0 07/08/17 23:50 36.3 62 20 147/76 (99) 97 Nasal Cannula 3.0 07/08/17 20:37 36.4 68 18 156/68 99 2.0 07/08/17 20:10 36.8 54 18 152/70 98 2.0 07/08/17 20:05 Nasal Cannula 2.0 07/08/17 19:35 69 18 96 Nasal Cannula 2.0 07/08/17 19:15 36.4 61 20 146/61 97 2.0 07/08/17 18:10 36.3 58 20 132/57 96 2.0 07/08/17 17:26 36.3 58 18 124/61 94 2.0 07/08/17 17:14 36.3 64 20 122/55 94 2.0 07/08/17 16:21 36.5 74 18 173/69 (103) 96 Nasal Cannula 2.0 07/08/17 16:05 Nasal Cannula 2.0 07/08/17 14:15 67 18 91 Nasal Cannula 2.0 Physical Exam General Appearance: WD/WN, no apparent distress Eyes: bilateral eyes normal inspection, bilateral eyes PERRL, bilateral eyes EOMI ENT: normal ENT inspection, + nasal congestion Neck: supple, no adenopathy Respiratory/Chest: chest non-tender, + decreased breath sounds, + rales Cardiovascular: regular rate, rhythm, no edema Abdomen: normal bowel sounds, non tender, soft Extremities: normal range of motion, non-tender, no pedal edema Neurologic/Psychiatric: alert, normal mood/affect, oriented x 3 Skin: normal color (improved from yesterday after transfusion) Lymphatic: no adenopathy Laboratory Results Last 24 Hours Test 07/08/17 16:32 07/08/17 16:55 07/08/17 21:01 07/09/17 00:08 Bedside Glucose 27 mg/dl 116 mg/dl 74 mg/dl 140 mg/dl Test 07/09/17 03:58 07/09/17 06:47 07/09/17 07:20 Bedside Glucose 152 mg/dl 131 mg/dl White Blood Count 3.43 K/uL Red Blood Count 2.87 M/uL Hemoglobin 7.8 g/dL Hematocrit 25.1 % Mean Corpuscular Volume 87.5 fL Mean Corpuscular Hemoglobin 27.2 pg Mean Corpuscular Hemoglobin Concent 31.1 g/dl Platelet Count 205 K/uL Mean Platelet Volume 9.7 fL Neutrophils (%) (Auto) 58.9 % Lymphocytes (%) (Auto) 16.0 % Monocytes (%) (Auto) 20.1 % Eosinophils (%) (Auto) 4.1 % Basophils (%) (Auto) 0.6 % Neutrophils # (Auto) 2.02 K/uL Lymphocytes # (Auto) 0.55 K/uL Monocytes # (Auto) 0.69 K/uL Eosinophils # (Auto) 0.14 K/uL Basophils # (Auto) 0.02 K/uL RDW Standard Deviation 52.7 fL RDW Coefficient of Variation 16.3 % Immature Granulocyte % (Auto) 0.3 % Immature Granulocyte # (Auto) 0.01 K/uL Large Platelets 2+ Giant Platelets 1+ Poikilocytosis PRESENT Anisocytosis PRESENT Assessment and Plan Assessment and Plan: Assessment: This is a 77-year-old male with a history of ESRD, COPD, DMII, and GI bleed who presented to the ED 2 with profound weakness and flu-like symptoms. DDx includes influenza, iron-deficient anemia, pneumonia, COPD exacerbation, reactive airway disease, PE, CHF. Plan: Primary: influenza A infection, confirmed with PCR -Continue Tamiflu -Maintain hydration -Maintain oxygen sats above 90%, currently on 2L nasal canula; decrease O2 as tolerated COPD: -Monitor O2 sats as above -Continue on patient's home inhalers -Nebulized albuterol PRN -Consider pulmonary consult if breathing does not improve Anemia: -Hb/Hct = 6.9/22.7 on 07/08, improved to 7.8/25.1 after 1 unit PRBC -Per nephro consult - will transfuse one more unit PRBC during dialysis today () -Monitor labs daily -Continue Protonix as started outpatient for gastric polyp/bleeding -Hold aspirin ESRD: -Dialysis today -Defer to nephro for management - appreciate recs DMII: -Continue home regimen -Monitor blood glucose before meals Hypothyroidism: -Monitor TSH, retest free T4 -Adjust Synthroid based on T4 results
[2017-07-09] MEDS: LABETALOL HCL 100 MG TAB PO SCH ×2 (13:47→21:39)
[2017-07-09] MEDS: AMLODIPINE BESYLATE 5 MG TAB PO SCH (13:47)
[2017-07-09] MEDS: LISINOPRIL 40 MG TAB PO SCH (13:49)
[2017-07-09] MEDS ORDERED: LEVOFLOXACIN / D5W 500 MG in PREMIXED IN D5W 100 ML IV SCH (14:00)
--- NOTE | 2017-07-09 18:11 | Progress Note ---
Subjective Date of Service: Jul 09, 2017. Subjective Pt evaluation today including: conversation w/ patient, physical exam, chart review, lab review, review of inpatient medication list feeling better, coughing up a lot of sputum but also now weaning O2!! notes feeling stronger post transfusion no other complaints Problem List Medical Problems: (1) Dependence on renal dialysis Status: Acute (2) Elevated troponin Status: Acute (3) Elevated troponin Status: Acute (4) Fever Status: Acute (5) Hyperglycemia due to type 2 diabetes mellitus Status: Acute (6) Hypoxia Status: Acute (7) Leg pain, left Status: Acute (8) Pain of left calf Status: Acute (9) Pulmonary vascular congestion Status: Acute (10) Substernal chest pain Status: Acute (11) Uremia Status: Acute Review of Systems all other ROS otherwise negative except for as above Objective Vital Signs Date Time Temp Pulse Resp B/P (MAP) Pulse Ox O2 Delivery O2 Flow Rate FiO2 07/09/17 15:53 37.0 68 21 162/67 (98) 92 Room Air 07/09/17 15:28 65 16 91 Room Air 07/09/17 13:51 36.4 75 20 170/79 (109) 95 Nasal Cannula 2.0 07/09/17 13:45 Nasal Cannula 2.0 07/09/17 13:40 36.4 70 162/76 (104) 07/09/17 13:00 70 154/65 07/09/17 12:45 68 155/66 07/09/17 12:30 68 152/73 07/09/17 12:15 70 151/67 07/09/17 12:00 70 154/74 07/09/17 11:45 67 155/66 07/09/17 11:30 69 155/75 07/09/17 11:15 66 158/67 07/09/17 11:00 68 159/79 07/09/17 10:45 75 132/60 07/09/17 10:30 69 135/70 07/09/17 10:15 69 154/77 07/09/17 10:10 36.3 65 133/55 07/09/17 10:00 65 133/55 07/09/17 09:45 69 157/74 07/09/17 09:30 65 149/69 07/09/17 09:20 65 144/68 07/09/17 09:08 63 150/69 07/09/17 09:00 36.4 62 148/68 (94) 07/09/17 08:00 Nasal Cannula 2.0 07/09/17 07:37 64 16 86 Room Air 07/09/17 07:32 36.8 18 18 146/61 (89) 95 Room Air 07/09/17 04:00 Nasal Cannula 2.0 07/09/17 03:50 36.7 69 18 155/63 (93) 96 Nasal Cannula 3.0 07/09/17 02:15 60 18 90 Nasal Cannula 2.0 07/08/17 23:59 Nasal Cannula 2.0 07/08/17 23:50 36.3 62 20 147/76 (99) 97 Nasal Cannula 3.0 07/08/17 20:37 36.4 68 18 156/68 99 2.0 07/08/17 20:10 36.8 54 18 152/70 98 2.0 07/08/17 20:05 Nasal Cannula 2.0 07/08/17 19:35 69 18 96 Nasal Cannula 2.0 07/08/17 19:15 36.4 61 20 146/61 97 2.0 07/08/17 18:10 36.3 58 20 132/57 96 2.0 Physical Exam General Appearance: no apparent distress Eyes: EOMI ENT: hearing grossly normal Neck: trachea midline Respiratory/Chest: no respiratory distress, no accessory muscle use, + decreased breath sounds (but only faint wheeze L lung much improved overall) Neurologic/Psychiatric: interface developer II-XII nml as tested, alert, normal mood/affect Skin: normal color, warm/dry Laboratory Results Last 24 Hours Test 07/08/17 21:01 07/09/17 00:08 07/09/17 03:58 07/09/17 06:47 Bedside Glucose 74 mg/dl 140 mg/dl 152 mg/dl 131 mg/dl Test 07/09/17 07:20 07/09/17 13:44 07/09/17 16:29 White Blood Count 3.43 K/uL Red Blood Count 2.87 M/uL Hemoglobin 7.8 g/dL Hematocrit 25.1 % Mean Corpuscular Volume 87.5 fL Mean Corpuscular Hemoglobin 27.2 pg Mean Corpuscular Hemoglobin Concent 31.1 g/dl Platelet Count 205 K/uL Mean Platelet Volume 9.7 fL Neutrophils (%) (Auto) 58.9 % Lymphocytes (%) (Auto) 16.0 % Monocytes (%) (Auto) 20.1 % Eosinophils (%) (Auto) 4.1 % Basophils (%) (Auto) 0.6 % Neutrophils # (Auto) 2.02 K/uL Lymphocytes # (Auto) 0.55 K/uL Monocytes # (Auto) 0.69 K/uL Eosinophils # (Auto) 0.14 K/uL Basophils # (Auto) 0.02 K/uL RDW Standard Deviation 52.7 fL RDW Coefficient of Variation 16.3 % Immature Granulocyte % (Auto) 0.3 % Immature Granulocyte # (Auto) 0.01 K/uL Large Platelets 2+ Giant Platelets 1+ Poikilocytosis PRESENT Anisocytosis PRESENT Bedside Glucose 120 mg/dl 174 mg/dl Assessment and Plan acute hypoxic respiratory failure due to influenza -tamiflu -O2 being weaned (currently off!) -supportive care -improving questionable pneumonia -appearing all flu related, stopped abx yesterday - continues to improve clinically - continue off abx anemia - holding aspirin, improved appropriately post 1 unit PRBC, agree w nephrology assessment of need for second unit. at this point as long as no overt signs of bleeding, ongoing GI w/u as outpt Diabetes - continue levemir, A1c's reasonable, sugars stay reasonable Hypothyroidism - continue synthroid, f/u TSH as outpt ~4wks Hypertension - continue his amlodipine, Lasix, lisinopril, Apresoline, Normodyne , BP reasonable given context depression - continue his Lexapro DVT proph SCDs, add heparin SQ calf pain - appearing to be just with muscle contraction, no findings c/w DVT no edema/asymmetry. follow hand paresthesiae - ?two etiologies - some fluid/electrolyte shifting relative to HD as well as carpal tunnel at night? trial of wrist splint
[2017-07-09] MEDS ORDERED: OSELTAMIVIR PHOSPHATE SUSP 30 MG/5 ML UDP PO SCH (20:00)
[2017-07-09] MEDS ORDERED: INSULIN DETEMIR SC SCH (21:00)
[2017-07-09] MEDS: ROSUVASTATIN CALCIUM 20 MG TAB PO SCH (21:36)
[2017-07-09] MEDS: GABAPENTIN 100 MG CAP PO SCH (21:38)
[2017-07-09] MEDS: HEPARIN SOD 5000 UNIT/0.5 ML CARP SQ SCH (21:49)
[2017-07-10 00:21] VITALS: BP 157/71; PULSE 69; TEMP 36.9; O2SAT 92
[2017-07-10] MEDS: IPRATROPIUM BROMIDE NEB SOLN 0.02% 2.5 ML VIAL INH SCH ×4 (02:20→14:10)
[2017-07-10] MEDS: LEVALBUTEROL 1.25MG/0.5ML NEB INH SCH ×4 (02:21→14:10)
[2017-07-10] MEDS: LEVOTHYROXINE 200 MCG TAB PO SCH (05:44)
[2017-07-10] MEDS: CALCIUM CARBONATE 500 MG CHEWABLE PO SCH ×2 (05:44→12:57)
[2017-07-10 07:05] LABS: HEMATOCRIT 27.9 % (42-52); HEMOGLOBIN 8.7 g/dL (14.0-18.0); MEAN CELL VOLUME 88.9 fL (80-100); MEAN CORPUSCULAR HEMOGLOBIN 27.7 pg (25-34); MEAN CORPUSCULAR HGB CONC 31.2 g/dl (32-36); MEAN PLATELET VOLUME 9.8 fL (7.4-10.4); PLATELET COUNT 209 K/uL (130-400); RED CELL DISTRIBUTION WIDTH SD 52.2 fL (36.4-46.3); WHITE BLOOD COUNT 4.34 K/uL (4.8-10.8)
[2017-07-10 07:08] VITALS: BP 149/55; PULSE 68; TEMP 36.8; O2SAT 92
[2017-07-10 07:42] LABS: CALCIUM 8.9 mg/dl (8.5-10.1)
[2017-07-10] MEDS: CALCIUM ACETATE 667MG GELCAP PO SCH ×2 (08:12→12:58)
[2017-07-10] MEDS: NEPHROCAPS PO SCH (08:13)
[2017-07-10] MEDS: FUROSEMIDE 80 MG TAB PO SCH (08:13)
[2017-07-10] MEDS: CHOLECALCIFEROL 1000 INTER.UNIT TAB PO SCH (08:14)
[2017-07-10] MEDS: ESCITALOPRAM OXALATE 10 MG TAB PO SCH (08:14)
[2017-07-10] MEDS: DOCUSATE SODIUM 100 MG CAP PO SCH (08:14)
[2017-07-10] MEDS: ASPIRIN 81 MG ECTAB PO SCH (08:14)
[2017-07-10] MEDS: AMLODIPINE BESYLATE 5 MG TAB PO SCH (08:15)
[2017-07-10] MEDS: LABETALOL HCL 100 MG TAB PO SCH (08:16)
[2017-07-10] MEDS: PANTOprazole SOD 40 MG TAB PO SCH (08:16)
[2017-07-10] MEDS: LISINOPRIL 40 MG TAB PO SCH (08:17)
[2017-07-10] MEDS: TAMSULOSIN HCL 0.4 MG CAP PO SCH (08:17)
[2017-07-10] MEDS: INSULIN ASPART 100 UNITS/ML 3 ML PEN SC SCH ×2 (08:19→12:54)
[2017-07-10] MEDS: HEPARIN SOD 5000 UNIT/0.5 ML CARP SQ SCH (08:21)
[2017-07-10] MEDS: INSULIN DETEMIR SC SCH (09:00)
--- NOTE | 2017-07-10 09:51 | Nephrology Progress Note ---
Nephrology Progress Note Date of Service Jul 10, 2017. Chief Complaint ESRD on HD Subjective Mr. Mcintyre was seen & examined in his hospital room this morning. He was dialyzed yesterday without complication. 1 L UF removed. Patient was transfused one unit PRBC. Mr. Mcintyre notes that he is weak but overall is subjectively improved. He voices no new medical concerns this am. Review of Systems Constitutional: No fever Cardiovascular: No chest pain Respiratory: No dyspnea at rest Abdomen: No pain, No nausea, No vomiting Extremities: No leg edema A complete review of systems was performed. Pertinent positives are noted above. All other systems are negative. Vital Signs Last 8 Hrs Date Time Temp Pulse Resp B/P (MAP) Pulse Ox O2 Delivery O2 Flow Rate FiO2 07/10/17 08:00 Room Air 07/10/17 07:08 36.8 68 20 149/55 (86) 92 Room Air Last Recorded Weight Weight (Kilograms): 100.000 Physical Exam General Appearance: no apparent distress Head: normocephalic, atraumatic Eyes: PERRL, EOMI Neck: no adenopathy Respiratory/Chest: lungs clear Cardiovascular: regular rate, rhythm Abdomen/GI: normal bowel sounds, non tender, soft Extremities/Musculoskelatal: no pedal edema, + pertinent finding (AVF + bruit) Neurologic/Psych: alert, oriented x 3 Family History Diabetes mellitus Hypertension Kidney disease Kidney stones Negative for CKD/ESRD Social History Drug Use: none Marital Status: Housing Status: lives with family 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 . Retired. Former smoker Laboratory Results Past 24 Hours 07/10/17 06:34 07/10/17 06:34 Test 07/09/17 13:44 07/09/17 16:29 07/09/17 20:00 07/10/17 06:34 Bedside Glucose 120 mg/dl (70-99) 174 mg/dl (70-99) 156 mg/dl (70-99) Red Blood Count 3.14 M/uL (4.7-6.1) Mean Corpuscular Volume 88.9 fL (80-100) Mean Corpuscular Hemoglobin 27.7 pg (25-34) Mean Corpuscular Hemoglobin Concent 31.2 g/dl (32-36) RDW Standard Deviation 52.2 fL (36.4-46.3) RDW Coefficient of Variation 16.0 % (11.5-14.5) Mean Platelet Volume 9.8 fL (7.4-10.4) Anion Gap 6.0 mmol/L (3-11) Est Creatinine Clear Calc Drug Dose 13.2 ml/min Estimated GFR () 9.7 Estimated GFR (Non- 8.4 BUN/Creatinine Ratio 7.4 (10-20) Calcium Level 8.9 mg/dl (8.5-10.1) Test 07/10/17 07:32 Bedside Glucose 74 mg/dl (70-99) Allergies Coded Allergies: Metformin (Verified Adverse Reaction, Intermediate, CONFUSION, 06/06/17) Medications Current Inpatient Medications Medications (Trade) Dose Ordered Sig/Unique Route Start Time Stop Time Status Last Admin Dose Admin Aspirin (Ecotrin Tab) 81 mg QAM PO 07/08/17 09:00 08/07/17 08:59 07/10/17 08:14 81 MG Calcium Acetate (Phoslo Cap) 1,334 mg TIDM PO 07/07/17 16:45 08/06/17 17:59 07/10/17 08:12 1,334 MG Calcium Carbonate (Tums Chew Tab) 500 mg AC PO 07/07/17 16:00 08/06/17 15:59 07/10/17 05:44 500 MG Cholecalciferol (Vitamin D Tab) 1,000 inter.unit QAM PO 07/08/17 09:00 08/07/17 08:59 07/10/17 08:14 1,000 INTER.UNIT Docusate Sodium (coLACE CAP) 100 mg QAM PO 07/08/17 09:00 08/07/17 08:59 07/10/17 08:14 100 MG Escitalopram Oxalate (Lexapro Tab) 5 mg DAILY PO 07/08/17 09:00 08/07/17 08:59 07/10/17 08:14 5 MG Furosemide (Lasix Tab) 80 mg BID17 PO 07/07/17 17:00 08/06/17 16:59 07/10/17 08:13 80 MG Gabapentin (Neurontin Cap) 100 mg HS PO 07/07/17 21:00 08/06/17 20:59 07/09/17 21:38 100 MG Hydralazine HCl (Apresoline Tab) 50 mg TID PO 07/07/17 21:00 08/06/17 20:59 07/10/17 08:13 50 MG Labetalol HCl (Normodyne Tab) 300 mg BID PO 07/07/17 21:00 08/06/17 20:59 07/10/17 08:16 300 MG Levothyroxine Sodium (Synthroid Tab) 200 mcg DAILYBB PO 07/08/17 06:00 08/07/17 06:59 07/10/17 05:44 200 MCG Lisinopril (Zestril Tab) 40 mg DAILY PO 07/08/17 09:00 08/07/17 08:59 07/10/17 08:17 40 MG Pantoprazole Sodium (Protonix Tab) 40 mg BID PO 07/07/17 21:00 08/06/17 20:59 07/10/17 08:16 40 MG Rosuvastatin Calcium (Crestor Tab) 20 mg QPM PO 07/07/17 21:00 08/06/17 20:59 07/09/17 21:36 20 MG Tamsulosin HCl (Flomax Cap) 0.4 mg QAM PO 07/08/17 09:00 08/07/17 08:59 07/10/17 08:17 0.4 MG Vitamin B Complex/ Vit C/Folic Acid (Nephrocaps) 1 cap DAILY PO 07/08/17 09:00 08/07/17 08:59 07/10/17 08:13 1 CAP Amlodipine Besylate (Norvasc Tab) 10 mg DAILY PO 07/08/17 09:00 08/07/17 08:59 07/10/17 08:15 10 MG Ipratropium [place] (Atrovent 0.02% 0.5MG/2.5ML Neb) 0.5 mg Q6R INH 07/07/17 15:00 08/06/17 14:59 07/09/17 19:12 0.5 MG Levalbuterol (Xopenex 1.25MG/ 3ML Neb) 1.25 mg Q6R PRN INH 07/07/17 14:30 08/06/17 14:29 Levalbuterol (Xopenex 1.25MG/ 0.5ML Neb) 1.25 mg Q6R INH 07/07/17 15:00 08/06/17 14:59 07/09/17 19:12 1.25 MG Insulin Aspart (novoLOG ASPART) SLIDING SCALE PARAMETER ACHS SC 07/07/17 16:00 08/06/17 15:59 07/09/17 17:24 1 UNITS Acetaminophen (Tylenol Tab) 650 mg Q4H PRN PO 07/07/17 14:30 08/06/17 14:29 07/07/17 20:02 650 MG Al Hydrox/Mg Hydrox/Simethicone (Maalox Max Susp) 15 ml Q4H PRN PO 07/07/17 14:30 08/06/17 14:29 Magnesium Hydroxide (Milk Of Magnesia Susp) 30 ml Q12H PRN PO 07/07/17 14:30 08/06/17 14:29 Ondansetron HCl (Zofran Inj) 4 mg Q6H PRN IV 07/07/17 14:30 08/06/17 14:29 Nitroglycerin (Nitrostat Tab) 0.4 mg UD PRN SL 07/07/17 14:30 08/06/17 14:29 Levothyroxine Sodium (Synthroid Tab) 25 mcg TuTh@0600 PO 07/09/17 06:00 08/08/17 05:59 07/09/17 06:11 25 MCG Haloperidol Lactate (Haldol Inj) 2.5 mg Q6 PRN IV 07/07/17 15:00 08/06/17 14:59 Benzonatate (Tessalon Perles Cap) 100 mg TID PRN PO 07/07/17 15:00 08/06/17 14:59 07/09/17 13:49 100 MG Glucose (Glucose 40% Gel) 15-30 GRAMS 15 GRAMS... UD PRN PO 07/07/17 16:45 08/06/17 16:44 Glucose (Glucose Chew Tab) 4-8 Tablets 4 Tabl... UD PRN PO 07/07/17 16:45 08/06/17 16:44 Dextrose (Dextrose 50% 50ML Syringe) 25-50ML OF 50% DW IV FOR... UD PRN IV 07/07/17 16:45 08/06/17 16:44 07/08/17 16:35 50 ML Glucagon (Glucagon Inj) 1 mg UD PRN SQ 07/07/17 16:45 08/06/17 16:44 Oseltamivir Phosphate (Tamiflu Susp) 30 mg TuThSa@2000 PO 07/09/17 20:00 07/11/17 23:59 07/09/17 19:30 30 MG Insulin Detemir (Levemir Insulin) 35 units QPM SC 07/09/17 21:00 08/06/17 20:59 07/09/17 21:48 35 UNITS Insulin Detemir (Levemir Insulin) 45 units QAM SC 07/09/17 09:00 08/07/17 08:59 Heparin Sodium (Porcine) (Heparin Sq 5000 Unit/0.5ml) 5,000 unit Q12 SQ 07/09/17 21:00 08/08/17 20:59 07/09/17 21:49 5,000 UNIT Impression (1) Influenza A (2) Fever (3) COPD (chronic obstructive pulmonary disease) (4) End-stage renal disease on hemodialysis (5) Hypertension (6) Diabetes Recommendations END STAGE RENAL DISEASE: -- Volume status and electrolyte balance are acceptable at this time. No acute indication for HD today. -- Will schedule next HD for am. HD RN notified -- Will dialyze heparin free tomorrow due to anemia and concern for chronic GI blood loss -- Protect L arm dialysis access ANEMIA: -- Recommend blood transfusion to maintain Hgb > 8.0 -- Monitor for overt bleeding ID: -- Tamiflu dose appropriate for ESRD on HD (30 mg po after each HD x 5 days) -- Blood and urine cultures are NGTD
[2017-07-10] MEDS ORDERED: TMFUDL30 PO (10:44)
--- NOTE | 2017-07-10 11:04 | Discharge Instructions ---
Discharge Instructions Date of Service Jul 10, 2017. Admission Reason for Admission: Acute Respiratory Failure With Hypoxia,Pneumonia Discharge Discharge Diagnosis / Problem: Influenza A; hypoxia; anemia Discharge Goals Goal(s): Decrease discomfort Activity Recommendations Activity Limitations: resume your previous activity . Instructions / Follow-Up Instructions / Follow-Up Influenza -The Tamiflu that you have been getting in the hospital will be continued after you leave. Only one more dose of it to go! Take one pill after dialysis tomorrow (07/11/17). -As we discussed, the flu is a tough bug to get rid of. Unfortunately, you will probably see slow improvement in your cough over the next month. You might not notice improvement day-to-day, but when you wonder if you're actually getting better, look back over the last week, and you should notice a difference! -Your breathing improved dramatically while you were in the hospital! Keep walking around the house when you get home as you feel able to do so. This will help keep moving the "junk" from the flu out of your lungs and help you keep feeling stronger! -Follow up with Dr. Wang or one of her PAs in the office next week. Anemia (low blood counts) -You received two blood transfusions in the hospital, and they really seemed to help you feel better! Your blood counts improved to a range that is stable - this is great! -We still dont' know where the bleeding is coming from. The camera swallow study that GI wants to do will be VERY important in helping to figure this out! Schedule this CARMELA! Our nurse has already been in contact with the GI office, and they know to expect a call from you. -In the meantime, stop your aspirin. It is a blood thinner and can increase your bleeding risk even more. We don't want that! The assistant terminal manager goal will be to get you back on it, but for now we'll need to have you hold off until the blood loss problem is solved. Kidney disease -Continue dialysis as scheduled. -Don't forget to take your last dose of Tamiflu after dialysis tomorrow (07/11)! -Follow up with your kidney doctor as needed. Numbness/tingling in your hands -The splint that you used on your wrist overnight in the hospital seemed to work well - keep that brace, and use it each night. If you can only tolerate it for a few hours at a time, that's ok! -These braces are cheap and you can get them [id number] at any pharmacy, if you want one for your other hand. You can wear them at the same time if you can tolerate it, but we usually find that patients like to wear one at a time. If this is true for you, wear the brace on the right hand for one month, then switch to the left hand for one month, and so on. it was a pleasure taking care of you at [facility]. We hope to see you again soon - just hopefully it's not in herre! All the best, Lata and Dr. Chen Current Hospital Diet Patient's current hospital diet: Diabetes Type 2 Diet Discharge Diet Recommended Diet: AHA Diet (Heart Healthy) Pending Studies Studies pending at discharge: no Laboratory Results Hemoglobin A1c Test 06/07/17 05:03 Range/Units Estimated Average Glucose 120 mg/dl Hemoglobin A1c 5.8 H 4.5-5.6 % Lipid Panel Test 05/22/17 09:43 Range/Units Triglycerides Level 90 0-150 mg/dl Cholesterol Level 73 0-200 mg/dl HDL Cholesterol 44 mg/dl Cholesterol/HDL Ratio 1.7 LDL Cholesterol, Calculated 11 mg/dl Medical Emergencies . Who to Call and When: Medical Emergencies: If at any time you feel your situation is an emergency, please call 911 immediately. . Non-Emergent Contact Non-Emergency issues call your: Primary Care Provider . . "Provider Documentation" section prepared by Kendall Chen. . VTE Core Measure Inpt VTE Proph given/why not?: Unfractionated heparin SQ (we will use heparin cautiously with concern for recent blood loss we are holding his aspirin)
[2017-07-10 13:06] VITALS: BP 149/55; PULSE 68; TEMP 36.8; O2SAT 92
[2017-07-10 14:10] VITALS: PULSE 61; O2SAT 91
--- NOTE | 2017-07-10 17:32 | Discharge Summary ---
Discharge Summary Date of Service Jul 10, 2017. Discharge Summary Admission Date: Jul 07, 2017 at 14:37 Discharge Date: Jul 10, 2017 Discharge Disposition: Home Principal Diagnosis: hypoxia related to flu; acute on subacute anemia Immunizations: Have You Had Influenza Vaccine: Unknown History of Tetanus Vaccine?: unknown History of Pneumococcal: Yes Pneumococcal Date: Dec 19, 2007 History of Hepatitis B Vaccine: Unknown Medication Reconciliation New Medications: Oseltamivir Phosphate (Tamiflu) 6 Mg/Ml Aliza 30 MG PO UD, #1 TAB take after dialysis on 07/11/17 Continued Medications: Amlodipine Besylate (Amlodipine Besylate) 10 Mg Tab 10 MG PO DAILY Calcium Acetate (Phoslo 667 Mg) 667 Mg Cap 1334 MG PO AC for 30 Days, #180 CAP 5 Refills Calcium Carbonate (Tums) 500 Mg Chew 500 MG PO AC Cholecalciferol (Vitamin D3) 1,000 Unit Tab 1000 INTER.UNIT PO QAM, TAB Cyanocobalamin (Vitamin B12) 1,000 Mcg Tab 1000 MCG PO QAM Docusate Sodium (Docusate Sodium) 100 Mg Cap 100 MG PO QAM, CAP Escitalopram Oxalate (Lexapro) 5 Mg Tab 5 MG PO DAILY Furosemide (Furosemide) 80 Mg Tab 80 MG PO BID Gabapentin (Neurontin) 100 Mg Cap 100 MG PO HS, CAP Hydralazine HCl (Hydralazine HCl) 50 Mg Tab 50 MG PO TID Insulin Detemir (Levemir) 100 Units/Ml Inj 45 UNITS SC QPM Insulin Detemir (Levemir) 100 Units/Ml Inj 50 UNITS SC QAM Ipratropium [place] (Atrovent Hfa) 200 Puffs/3400 Mcg Aers 2 PUFFS INH Q6H, GM Labetalol HCl (Labetalol HCl) 100 Mg Tab 300 MG PO BID Levalbuterol Tartrate (Levalbuterol Tartrate Hfa) 45 Mcg/Act Aer 2 PUFFS INH Q6H Levothyroxine Sodium (Levothyroxine Sodium) 25 Mcg Tab 25 MCG PO 2XWK, TAB EVERY SATURDAY AND SATURDAY TAKE AN ADDITIONAL 25 MCG ALONG WITH 200 MCG TABLET Levothyroxine Sodium (Levothyroxine Sodium) 200 Mcg Tab 200 MCG PO QAM, TAB Lisinopril (Lisinopril) 40 Mg Tab 40 MG PO DAILY ON DAYS OF DIALYSIS TAKE AFTER TREATMENT Pantoprazole (Pantoprazole Sodium) 40 Mg Tab 40 MG PO BID for 14 Days, #28 TAB Rosuvastatin Calcium (Rosuvastatin Calcium) 20 Mg Tab 20 MG PO QPM Tamsulosin HCl (Tamsulosin HCl) 0.4 Mg Cap 0.4 MG PO QAM Vitamin B Cmplx/Vitc/Folic Ac (Nephrocaps) Cap 1 CAP PO DAILY, CAP Discontinued Medications: Aspirin (Aspirin Ec) 81 Mg Tab 81 MG PO QAM Discharge Exam Physical Exam: General Appearance: no apparent distress Eyes: EOMI ENT: hearing grossly normal Neck: trachea midline Respiratory/Chest: no respiratory distress, no accessory muscle use Neurologic/Psychiatric: food processor II-XII nml as tested, alert, normal mood/affect Skin: normal color, warm/dry Hospital Course acute hypoxic respiratory failure due to influenza -tamiflu x 1 more dose after HD tomorrow -O2 weaned. walked well w pulse ox 92-94% on RA -supportive care -improving questionable pneumonia -appearing all flu related, stopped abx 2 days - continues to improve clinically - appears clear that there fortunately was no secondary pneumonia anemia - holding aspirin for the short but indefinite term (made clear to pt right now to hold, but goal will be to determine bleeding/bleed risk and get him back on asa once safe to do so), improved appropriately post 2 units PRBC. CBC after HD tomorrow, capsule endoscopy being rescheduled Diabetes - continue levemir, A1c's reasonable, sugars stay reasonable - continue home regimen Hypothyroidism - continue synthroid, f/u TSH as outpt ~4wks Hypertension - continue his amlodipine, Lasix, lisinopril, Apresoline, Normodyne , BP reasonable given context depression - continue his Lexapro DVT proph SCDs, heparin SQ both used during his stay hand paresthesiae - ?two etiologies - some fluid/electrolyte shifting relative to HD as well as carpal tunnel at night? trial of wrist splint - noted improvement after just one night Total Time Spent: Less than 30 minutes This includes examination of the patient, discharge planning, medication reconciliation, and communication with other providers. Discharge Instructions Please refer to the electronic Patient Visit Report (Discharge Instructions) for additional information. Additional Copies To Mahsa Wang DO
[2017-07-11] MEDS ORDERED: EPOETIN ALFA 10,000 UNITS/ML VIAL IV. SCH (06:00)
== END 2017-07-10 14:27 | disposition home or self-care (01) | DRG 193 ==
LOC: EDBD 12:33 → C.EDC 12:34 → C.2T 14:37 → ENRESERV 14:54 → C.MS2W 07-09 19:46
PROVIDERS: ADMIT Internal Medicine; ATTEND Family Medicine
DX: J10.00 Influenza due to other identified influenza virus with unspecified type of pneumonia (principal); N18.6 End stage renal disease; J96.21 Acute and chronic respiratory failure with hypoxia; N25.81 Secondary hyperparathyroidism of renal origin; I12.0 Hypertensive chronic kidney disease with stage 5 chronic kidney disease or end stage renal disease; J18.9 Pneumonia, unspecified organism; J45.909 Unspecified asthma, uncomplicated; J44.9 Chronic obstructive pulmonary disease, unspecified; E11.9 Type 2 diabetes mellitus without complications; K21.9 Gastro-esophageal reflux disease without esophagitis; D64.9 Anemia, unspecified; E03.9 Hypothyroidism, unspecified; R20.2 Paresthesia of skin; F32.9 Major depressive disorder, single episode, unspecified; Z86.010 Personal history of colon polyps; Z99.2 Dependence on renal dialysis; Z87.891 Personal history of nicotine dependence; Z79.4 Long term (current) use of insulin; Z79.82 Long term (current) use of aspirin; Z88.8 Allergy status to other drugs, medicaments and biological substances; Z87.01 Personal history of pneumonia (recurrent); Z79.899 Other long term (current) drug therapy; Z83.3 Family history of diabetes mellitus; Z84.1 Family history of disorders of kidney and ureter

== ENCOUNTER → 2017-07-11 | Outpatient (CLI) | payer MEDICARE ==
[~2017-07-11] MED LIST changes: -ASPI81TA28 PO; +GABA-112 PO; +TMFUDL30 PO
[2017-07-11 17:32] LABS: HEMOGLOBIN 8.4 g/dL (14.0-18.0); MEAN CELL VOLUME 88.5 fL (80-100); MEAN CORPUSCULAR HEMOGLOBIN 27.5 pg (25-34); MEAN CORPUSCULAR HGB CONC 31.1 g/dl (32-36); MEAN PLATELET VOLUME 10.5 fL (7.4-10.4); PLATELET COUNT 230 K/uL (130-400); RED CELL DISTRIBUTION WIDTH SD 51.6 fL (36.4-46.3); WHITE BLOOD COUNT 3.85 K/uL (4.8-10.8)
== END | disposition home or self-care (01) ==
LOC: C.LABPBG 13:41
PROVIDERS: ATTEND Family Medicine
DX: D64.9 Anemia, unspecified (principal)

== ENCOUNTER 2017-08-02 13:45 | Emergency (ER) | payer MEDICARE ==
[~2017-08-02] VITALS: Ht 186.7 cm; Wt 98.0 kg
[2017-08-02] VITALS (14 sets, daily range): BP systolic 138–179; BP diastolic 60–92; PULSE 59–66; TEMP 36.3–36.6; O2SAT 95–100; Ht 186.7 cm; Wt 98.0 kg
--- NOTE | 2017-08-02 14:38 | EMERGENCY ROOM VISIT NOTE ---
History Report prepared by Crys: Abran Braxton Under the Supervision of: Dr. Nahum Perales M.D. First contact with patient: 14:16 Chief Complaint: ABNORMAL LABS Stated Complaint: LOW BLOOD COUNT History of Present Illness The patient is a 77 year old male who presents to the Emergency Room with complaints of a constant low blood count that started yesterday. The patient states that he was at dialysis yesterday, and they called him today and told him that he had a low blood count at 6 or 7. He states that he is feeling tired , and he states that he has been having black stools for a while and some shortness of breath. He denies any fever, chills, coughing, congestion, nausea, vomiting, and abdominal pain. The patient states that he has had a history of blood transfusions, and his last one was about a month ago. He states that he had a capsule study a week ago, and he has not heard the results yet. Previously he has had vessels cauterized in his stomach and some polyps were found. The patient is not currently on any blood thinners. He notes that he is not always on oxygen, though he was recently put on it two days ago. Source of History: patient Onset: yesterday Position: other (global) Quality: other (low blood count) Timing: constant Associated Symptoms: + SOB, No fevers, No chills, No cough, No nausea, No vomiting, No abdominal pain Note: Associated symptoms: Tiredness and black stools Review of Systems See HPI for pertinent positives and negatives. A total of ten systems were reviewed and were otherwise negative. Past Medical & Surgical Medical Problems: (1) Acute respiratory failure with hypoxia (2) Anemia (3) Asthma (4) Chronic Kidney Disease, Unspecified (5) COPD (chronic obstructive pulmonary disease) (6) COPD exacerbation (7) Diab Cheryl Wo Compl, Type Ii Or Unspec Type, Not Uncntrld (8) Diabetes (9) End-stage renal disease on hemodialysis (10) Epistaxis (11) Esophageal Reflux (12) GI bleed (13) Heart disease (14) Hypertension (15) Hypertension Nos (16) Influenza A (17) Pneumonia (18) Secondary hyperparathyroidism of renal origin Family History Diabetes mellitus Hypertension Kidney disease Kidney stones Social History Smoking Status: Former Smoker Alcohol Use: none Drug Use: none Marital Status: Housing Status: lives with significant other Occupation Status: retired Current/Historical Medications Scheduled Amlodipine Besylate (Amlodipine Besylate), 10 MG PO DAILY Calcium Acetate (Phoslo 667 Mg), 1,334 MG PO AC Calcium Carbonate (Tums), 500 MG PO AC Cholecalciferol (Vitamin D3), 1,000 INTER.UNIT PO QAM Cyanocobalamin (Vitamin B12), 1,000 MCG PO QAM Docusate Sodium (Docusate Sodium), 100 MG PO QAM Escitalopram Oxalate (Lexapro), 5 MG PO DAILY Furosemide (Furosemide), 80 MG PO BID Gabapentin (Neurontin), 100 MG PO HS Hydralazine HCl (Hydralazine HCl), 50 MG PO TID Insulin Detemir (Levemir), 45 UNITS SC QPM Insulin Detemir (Levemir), 50 UNITS SC QAM Ipratropium [facility] (Atrovent Hfa), 2 PUFFS INH Q6H Labetalol HCl (Labetalol HCl), 300 MG PO BID Levalbuterol Tartrate (Levalbuterol Tartrate Hfa), 2 PUFFS INH Q6H Levothyroxine Sodium (Levothyroxine Sodium), 25 MCG PO 2XWK Levothyroxine Sodium (Levothyroxine Sodium), 200 MCG PO QAM Lisinopril (Lisinopril), 40 MG PO DAILY Pantoprazole (Pantoprazole Sodium), 40 MG PO BID Rosuvastatin Calcium (Rosuvastatin Calcium), 20 MG PO QPM Tamsulosin HCl (Tamsulosin HCl), 0.4 MG PO QAM Vitamin B Cmplx/Vitc/Folic Ac (Nephrocaps), 1 CAP PO DAILY Allergies Coded Allergies: Metformin (Verified Adverse Reaction, Intermediate, CONFUSION, 08/02/17) Physical Exam Vital Signs Date Time Temp Pulse Resp B/P (MAP) Pulse Ox O2 Delivery O2 Flow Rate FiO2 08/02/17 22:30 65 20 176/77 95 Nasal Cannula 3.0 08/02/17 22:22 65 08/02/17 22:05 36.5 66 20 179/69 95 3.0 08/02/17 21:30 36.5 65 20 170/75 95 3.0 08/02/17 21:00 36.5 61 20 166/68 96 3.0 08/02/17 20:30 62 20 161/71 98 3.0 08/02/17 20:30 36.5 3 20:15 36.3 60 20 167/90 97 3.0 08/02/17 20:00 36.5 61 20 154/68 97 3.0 08/02/17 19:51 36.5 62 20 147/92 96 3.0 08/02/17 19:00 36.5 60 20 150/69 99 3.0 08/02/17 18:30 63 18 138/60 97 3.0 08/02/17 18:09 60 08/02/17 18:00 36.5 59 18 155/67 97 3.0 08/02/17 17:44 36.4 63 17 146/61 08/02/17 17:13 36.6 60 15 153/66 100 08/02/17 17:00 58 15 151/64 100 Room Air 08/02/17 16:57 36.6 59 17 150/61 100 3.0 08/02/17 15:30 60 20 150/72 99 Nasal Cannula 3.0 08/02/17 15:06 61 20 162/70 96 Nasal Cannula 3.0 08/02/17 14:09 61 08/02/17 14:07 96 Nasal Cannula 2.0 08/02/17 14:07 88 Room Air 08/02/17 13:54 36.3 57 18 162/71 93 Room Air Physical Exam GENERAL: Awake, alert, chronically ill-appearing, in no distress HENT: Normocephalic, atraumatic. Oropharynx with dry mucous otherwise unremarkable. EYES: Normal conjunctiva. Sclera non-icteric. NECK: Supple. No nuchal rigidity. FROM. No JVD. RESPIRATORY: Diminished breath sounds at the bases. CARDIAC: Regular rate, normal rhythm. Extremities warm and well perfused. Pulses equal. ABDOMEN: Soft, non-distended. No tenderness to palpation. No rebound or guarding. No masses. RECTAL: Deferred. MUSCULOSKELETAL: Left forearm has an AV fistula with a palpable thrill. Chest examination reveals no tenderness. The back is symmetrical on inspection without obvious abnormality. There is no CVA tenderness to palpation. No joint edema. LOWER EXTREMITIES: Calves are equal size bilaterally and non-tender. No edema. No discoloration. NEURO: Normal sensorium. No sensory or motor deficits noted. SKIN: Pale, No rash or jaundice noted. Medical Decision & Procedures ER Provider Diagnostic Interpretation: Radiology results as stated below per my review and radiologist interpretation: CHEST ONE VIEW PORTABLE CLINICAL HISTORY: EVALUATE GI BLEED dyspnea COMPARISON STUDY: 07/07/2017 FINDINGS: Consolidative change left lung base. Moderate stable cardiomegaly. Lungs otherwise appear clear. IMPRESSION: Infiltrate versus focal consolidation left lung base. Moderate stable cardiomegaly. The above report was generated using voice recognition software. It may contain grammatical, syntax or spelling errors. Electronically signed by: Osmany Marte M.D. 08/02/2017 2:46 PM Dictated Date/Time: 08/02/2017 2:45 PM Laboratory Results 08/02/17 14:20 Red Blood Count 2.84, Mean Corpuscular Volume 89.1, Mean Corpuscular Hemoglobin 26.8, Mean Corpuscular Hemoglobin Concent 30.0, Mean Platelet Volume 10.3, Neutrophils (%) (Auto) 66.5, Lymphocytes (%) (Auto) 17.2, Monocytes (%) (Auto) 11.5, Eosinophils (%) (Auto) 4.2, Basophils (%) (Auto) 0.6, Neutrophils # (Auto ) 2.20, Lymphocytes # (Auto) 0.57, Monocytes # (Auto) 0.38, Eosinophils # (Auto ) 0.14, Basophils # (Auto) 0.02 08/02/17 14:20 Test 08/02/17 14:20 White Blood Count 3.31 K/uL (4.8-10.8) Red Blood Count 2.84 M/uL (4.7-6.1) Hemoglobin 7.6 g/dL (14.0-18.0) Hematocrit 25.3 % (42-52) Mean Corpuscular Volume 89.1 fL (80-100) Mean Corpuscular Hemoglobin 26.8 pg (25-34) Mean Corpuscular Hemoglobin Concent 30.0 g/dl (32-36) Platelet Count 183 K/uL (130-400) Mean Platelet Volume 10.3 fL (7.4-10.4) Neutrophils (%) (Auto) 66.5 % Lymphocytes (%) (Auto) 17.2 % Monocytes (%) (Auto) 11.5 % Eosinophils (%) (Auto) 4.2 % Basophils (%) (Auto) 0.6 % Neutrophils # (Auto) 2.20 K/uL (1.4-6.5) Lymphocytes # (Auto) 0.57 K/uL (1.2-3.4) Monocytes # (Auto) 0.38 K/uL (0.11-0.59) Eosinophils # (Auto) 0.14 K/uL (0-0.5) Basophils # (Auto) 0.02 K/uL (0-0.2) RDW Standard Deviation 52.7 fL (36.4-46.3) RDW Coefficient of Variation 16.2 % (11.5-14.5) Immature Granulocyte % (Auto) 0.0 % Immature Granulocyte # (Auto) 0.00 K/uL (0.00-0.02) Large Platelets 1+ Hypochromasia PRESENT Prothrombin Time 11.2 SECONDS (9.0-12.0) Prothromb Time International Ratio 1.1 (0.9-1.1) Activated Partial Thromboplast Time 25.9 SECONDS (21.0-31.0) Partial Thromboplastin Ratio 1.0 Anion Gap 6.0 mmol/L (3-11) Est Creatinine Clear Calc Drug Dose 16.7 ml/min Estimated GFR () 12.9 Estimated GFR (Non- 11.1 BUN/Creatinine Ratio 5.5 (10-20) Calcium Level 8.9 mg/dl (8.5-10.1) Total Bilirubin 0.5 mg/dl (0.2-1) Direct Bilirubin 0.2 mg/dl (0-0.2) Aspartate Amino Transf (AST/SGOT) 11 U/L (15-37) Alanine Aminotransferase (ALT/SGPT) 19 U/L (12-78) Alkaline Phosphatase 75 U/L (45-117) Total Protein 6.5 gm/dl (6.4-8.2) Albumin 3.3 gm/dl (3.4-5.0) Lipase 145 U/L (73-393) Laboratory results reviewed by me Medications Administered Medications (Trade) Dose Ordered Sig/Unique Route Start Time Stop Time Status Last Admin Dose Admin Pantoprazole Sodium 40 mg/ Syringe 10 ml @ 5 mls/min NOW ONCE IV 08/02/17 14:45 08/02/17 14:46 DC 08/02/17 15:03 5 MLS/MIN ECG Per My Interpretation Indication: weakness Rate (beats per minute): 60 Rhythm: normal sinus Findings: RBBB, no acute ischemic change, other (Normal axis) Comparison ECG Date: 07/07/17 Change: no significant change ED Course 1416: The patient was evaluated in room A3. A complete history and physical exam was performed. 1653: I reevaluated the patient, and he states that he does not want to stay after his transfusion. 1654: I discussed the patient's case with Dr. Christopher PATTERSON, and he says that he agrees with transfusion. Given that he has not had any massive bleeding, he would not like to do much more, so if he wants to go home, the he can follow up on the capsule study. 2020: The patient is continuing to feel better, and he got his first unit of blood. The second unit is running. Medical Decision I reviewed the patient's past medical history, medications, and the nursing notes as described above. The patient's presentation and history were concerning for anemia of chronic disease, upper GI bleed, lower GI bleed, pneumonia, bronchitis dehydration, and electrolyte abnormality. The patient is a 77-year-old gentleman with a past medical history of end-stage renal disease on dialysis Saturday as well as a history of prior GI bleeding who presents emergency department for transfusion after his predialysis labs demonstrated worsening anemia per hpi. The symptoms occur in the setting of the patient reporting generalized fatigue over the past week. Patient denies any chest pain shortness of breath nausea vomiting. He reports that he has had long-standing blood in his stool but reports that his black stool has significantly improved after his last admission for his GI bleed. EKG is unremarkable unchanged from prior. Labs notable for hemoglobin of 7.6. Given this value he is likely to fluctuate above and below 7 due to hemoconcentration and hemodilution in between dialysis sessions. Thus will transfuse 2 units here in the emergency department. I did recommend to the patient admission given the extended duration (6 hours) to transfuse 2 units of PRBCs safely in the setting of his renal failure. However, the patient is adamant that he prefers discharge. He does have dialysis scheduled for tomorrow. I discussed the case with Dr. White and we agree that given that he has been evaluated previously multiple times and has no current evidence of massive bleeding it is not unreasonable to discharge the patient given his preference to go home. He recommends that the patient could should contact their office on Saturday for a follow-up appointment and to review his recent capsule study. Patient reassessed after his first unit of PRBCs and feeling much improved. He continues to prefer discharge at this time. Thus plan will be to discharge the patient upon completion of his transfusion. Findings and plan for follow-up reviewed with patient. Patient agreeable and d/c'd per discharge instructions. Medication Reconcilliation Current Medication List: was personally reviewed by me Blood Pressure Screening Patient's blood pressure: Elevated blood pressure Blood pressure disposition: Referred to PCP Consults Time Called: 1653 Consulting Physician: Dr. Christopher PATTERSON Returned Call: [phone] I discussed the patient's case with Dr. Christopher PATTERSON, and he says that he agrees with transfusion. Given that he has not had any massive bleeding, he would not like to do much more, so if he wants to go home, the he can follow up on the capsule study. Impression Primary Impression: Anemia Additional Impression: Melena Critical Care I have personally spent greater than 90 minutes of critical care time in the direct management of this patient. This includes bedside care, interpretation of diagnostic studies, and testing, discussion with consultants, patient, and family members, and other required patient management activities. This 90 minutes is in excess of all separately billable procedures. Scribe Attestation The scribe's documentation has been prepared under my direction and personally reviewed by me in its entirety. I confirm that the note above accurately reflects all work, treatment, procedures, and medical decision making performed by me. Departure Information Dispostion Home / Self-Care Referrals Mahsa Wang DO (PCP) Jf Sullivan M.D. Patient Instructions Anemia, Anemia and Kidney Disease, GI Bleeding - [facility], My [facility] Additional Instructions Please follow up with your dialysis tomorrow as scheduled as well as with your Head Of Sales, Dr. Sullivan, on Saturday for re-evaluation. You should also follow up with your primary care doctor for re-evaluation. Your anemia is likely due to your known GI bleed that is currently being evaluated in the setting of your renal disease. You were transfused 2 units PRBCs for your hemoglobin of 7.6. Return to the emergency department for worsening symptoms as described in the accompanying instructions. Problem Qualifiers
[2017-08-02 14:44] LABS: BASO % 0.6 %; BASO ABS # 0.02 K/uL (0-0.2); EOS % 4.2 %; EOS ABS # 0.14 K/uL (0-0.5); HEMATOCRIT 25.3 % (42-52); HEMOGLOBIN 7.6 g/dL (14.0-18.0); LYMPH % 17.2 %; LYMPH ABS # 0.57 K/uL (1.2-3.4); MEAN CELL VOLUME 89.1 fL (80-100); MEAN CORPUSCULAR HEMOGLOBIN 26.8 pg (25-34); MEAN PLATELET VOLUME 10.3 fL (7.4-10.4); MONO % 11.5 %; MONO ABS # 0.38 K/uL (0.11-0.59); NEUT % 66.5 %; PLATELET COUNT 183 K/uL (130-400); RED CELL DISTRIBUTION WIDTH CV 16.2 % (11.5-14.5); RED CELL DISTRIBUTION WIDTH SD 52.7 fL (36.4-46.3); WHITE BLOOD COUNT 3.31 K/uL (4.8-10.8)
[2017-08-02] MEDS ORDERED: PANTOprazole INJ 40 MG in SYRINGE 0 ML IV ONE (14:45)
--- NOTE | 2017-08-02 14:47 | DIAGNOSTIC IMAGING REPORT ---
CHEST ONE VIEW PORTABLE CLINICAL HISTORY: EVALUATE GI BLEED dyspnea COMPARISON STUDY: 07/07/2017 FINDINGS: Consolidative change left lung base. Moderate stable cardiomegaly. Lungs otherwise appear clear. IMPRESSION: Infiltrate versus focal consolidation left lung base. Moderate stable cardiomegaly. The above report was generated using voice recognition software. It may contain grammatical, syntax or spelling errors. Electronically signed by: Osmany Marte M.D. 08/02/2017 2:46 PM Dictated Date/Time: 08/02/2017 2:45 PM
[2017-08-02 14:55] LABS: INR 1.1 (0.9-1.1); PTT PATIENT 25.9 SECONDS (21.0-31.0)
[2017-08-02 15:18] LABS: ALBUMIN 3.3 gm/dl (3.4-5.0); CALCIUM 8.9 mg/dl (8.5-10.1); CREATININE 4.75 mg/dl (0.60-1.40); POTASSIUM 3.5 mmol/L (3.5-5.1); TOTAL PROTEIN 6.5 gm/dl (6.4-8.2)
== END 2017-08-02 22:44 | disposition home or self-care (01) ==
LOC: C.EDB 13:46 → C.EDA 22:44
DX: D64.9 Anemia, unspecified (principal); K92.1 Melena; R06.02 Shortness of breath; I45.10 Unspecified right bundle-branch block; E11.9 Type 2 diabetes mellitus without complications; I10 Essential (primary) hypertension; K21.9 Gastro-esophageal reflux disease without esophagitis; J45.909 Unspecified asthma, uncomplicated; Z79.4 Long term (current) use of insulin; Z79.899 Other long term (current) drug therapy; Z88.8 Allergy status to other drugs, medicaments and biological substances; Z87.891 Personal history of nicotine dependence; Z82.49 Family history of ischemic heart disease and other diseases of the circulatory system; Z83.3 Family history of diabetes mellitus; Z84.1 Family history of disorders of kidney and ureter

== ENCOUNTER 2018-06-04 20:27 | Inpatient (IN) ==
[2018-06-04 21:47] LABS: Basophils # (auto) 0.03 K/uL (0-0.2); Basophils % (auto) 0.8 %; Eosinophils % (auto) 2.7 %; Hematocrit (blood only) 23.2 % (42-52); Hemoglobin 7.1 g/dL (14.0-18.0); Immature Granulocytes # (auto) 0.01 K/uL (0.00-0.02); Immature Granulocytes % (auto) 0.3 %; Lymphocytes # (auto) 0.55 K/uL (1.2-3.4); Mean Corpuscular Hgb Conc 30.6 g/dL (32-36); Mean Corpuscular Volume 83.5 fL (80-100); Mean Platelet Volume 10.9 fL (7.4-10.4); Monocytes # (auto) 0.29 K/uL (0.11-0.59); Monocytes % (auto) 7.9 %; Neutrophils # (auto) 2.69 K/uL (1.4-6.5); Neutrophils % (auto) 73.3 %; Platelet Count 169 K/uL (130-400); RDW Coefficient of Variation 16.5 % (11.5-14.5); RDW Standard Deviation 51.4 fL (36.4-46.3); Red Blood Count 2.78 M/uL (4.7-6.1); White Blood Count 3.67 K/uL (4.8-10.8)
--- NOTE | 2018-06-04 21:55 | XRay Report ---
XR chest 1V portable HISTORY: 78 years-old Male shortness of breath acute shortness of breath COMPARISON: Chest radiograph 04/20/2018 TECHNIQUE: Portable AP view of the chest FINDINGS: Cardiac silhouette is mildly enlarged, unchanged. Calcification of the thoracic aortic arch. Mild pul monary vascular congestion without overt pulmonary edema. No pneumothorax or large pleural effusion. Segmental bibasilar opacities. Degenerative changes of the shoulders and spine. IMPRESSION: 1. Cardiomegaly without overt pulmonary edema. 2. Bibasilar opacities suggest atelectasis with pneumonitis considered less likely. The above report was generated using voice recognition software. It may contain grammatical, syntax o r spelling errors. Electronically signed by: Jaycob Ag M.D. 06/04/2018 9:53 PM
--- NOTE | 2018-06-04 22:04 | Emergency Department Note ---
History of Present Illness General Chief complaint: Shortness of Breath/Dyspnea Stated complaint: SOB,SWOLLEN, Time Seen by Provider: 06/04/18 21:28 History of Present Illness Maximum Pain Intensity: 2 This is a 78-year-old male that presents to the emergency department with complaints of "shortness of breath". The patient notes that he has missed 5 of his scheduled dialysis days. He notes that since that time he has been experiencing increased shortness of breath. He also notes minimal substernal chest pressure for the past few days as well. He denies any history of heart attack/PE. He denies any history of heart failure that he is aware of. No nausea, vomiting, diarrhea or fevers. He does note chills. He notes that he is scheduled for dialysis and just a few hours but was concerned because of his symptoms therefore presented to the emergency department. Home Medications Home Medications Medication Instructions Recorded Confirmed Type B complex with C#20-folic acid 1 mg PO DAILY@1200 04/19/18 06/04/18 History amlodipine 10 mg PO HS 04/19/18 06/04/18 History calcium acetate 1,334 mg PO TIDM 04/19/18 06/04/18 History docusate sodium 100 mg PO QAM 04/19/18 06/04/18 History furosemide 80 mg PO BID 04/19/18 06/04/18 History gabapentin 100 mg PO HS 04/19/18 06/04/18 History labetalol 400 mg PO BID 04/19/18 06/04/18 History levothyroxine 50 mcg PO 5XWK 04/19/18 06/04/18 History levothyroxine 200 mcg PO QAM 04/19/18 06/04/18 History lisinopril 40 mg PO DAILY@1200 04/19/18 06/04/18 History rosuvastatin 20 mg PO QPM 04/19/18 06/04/18 History tamsulosin 0.4 mg PO QAM 04/19/18 06/04/18 History hydralazine 10 mg PO TID #90 tab 04/23/18 06/04/18 Rx pantoprazole 40 mg PO BID #60 tab 04/23/18 06/04/18 Rx sucralfate 1 g PO ACHS #120 tab 04/23/18 06/04/18 Rx insulin detemir U-100 [Levemir 45 units SUBCUT QPM 06/04/18 06/04/18 History U-100 Insulin] insulin detemir U-100 [Levemir 50 units SUBCUT QAM 06/04/18 06/04/18 History U-100 Insulin] nut.tx.gluc intol,lf,soy-fiber 1 ea PO WM 06/04/18 06/04/18 History [Boost Glucose Control] Allergies Allergy/AdvReac Type Severity Reaction Status Date / Time metformin AdvReac Intermediate CONFUSION Verified 06/04/18 21:47 Past Med/Surg History Medical History BPH (benign prostatic hyperplasia) Hypothyroidism Diabetes (Chronic) Hypertensive urgency (Acute) Epistaxis (Chronic) Heart disease (Chronic) Secondary hyperparathyroidism of renal origin Anemia End-stage renal disease on hemodialysis COPD (chronic obstructive pulmonary disease) Surgical History No pertinent past surgical history Family History Unknown Heart attack Diabetes Social History marital status: Current Living Situation: Spouse Other Information That Helps Us Care for You: No Feels Safe at Home: Yes Safety Concerns: Feels Safe At This Time Smoking Status: Former smoker Tobacco Type: cigarettes Do You Dip or Chew Tobacco: No Second Hand Exposure: No Tobacco Cessation Education Requested by Patient: No Hx Alcohol Use: No Hx Substance Use: No Beliefs That Will Affect Care: None Preferred Language: Japanese Communication Ability: Effective 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 Review of Systems A total of 10 systems reviewed and were otherwise negative Physical Exam Vital Signs Vital Signs - 24 hr 06/04/18 20:30 06/04/18 20:45 06/04/18 20:50 Temperature 36.7 C Temperature Source Oral Sepsis Recent Fever Within 48 Hours No Sepsis Action Taken by Nursing No Action Required Pulse Rate 65 62 64 Pulse Rate [Radial] Pulse Rate [Right Finger] Pulse Rhythm Pulse Rhythm [Radial] Respiratory Rate 16 23 20 Respiratory Effort / Characteristics Respiratory Depth Normal Respiratory Pattern Blood Pressure 160/69 H Blood Pressure [Right Arm] Blood Pressure Mean 99 Blood Pressure Mean [Right Arm] Blood Pressure Position [Right Arm] Pulse Oximetry 94 93 Pulse Oximetry [Left Index Finger] Oxygen Delivery Method Room Air Oxygen Delivery Method [Left Index Finger] Oxygen Flow Rate 06/04/18 20:55 06/04/18 21:00 06/04/18 21:05 Temperature Temperature Source Sepsis Recent Fever Within 48 Hours Sepsis Action Taken by Nursing Pulse Rate 62 62 62 Pulse Rate [Radial] Pulse Rate [Right Finger] Pulse Rhythm Pulse Rhythm [Radial] Respiratory Rate 18 19 18 Respiratory Effort / Characteristics Respiratory Depth Respiratory Pattern Blood Pressure Blood Pressure [Right Arm] Blood Pressure Mean Blood Pressure Mean [Right Arm] Blood Pressure Position [Right Arm] Pulse Oximetry 95 95 95 Pulse Oximetry [Left Index Finger] Oxygen Delivery Method Oxygen Delivery Method [Left Index Finger] Oxygen Flow Rate 06/04/18 21:10 06/04/18 21:15 06/04/18 21:20 Temperature Temperature Source Sepsis Recent Fever Within 48 Hours Sepsis Action Taken by Nursing Pulse Rate 61 65 62 Pulse Rate [Radial] Pulse Rate [Right Finger] Pulse Rhythm Pulse Rhythm [Radial] Respiratory Rate 18 18 22 Respiratory Effort / Characteristics Respiratory Depth Respiratory Pattern Blood Pressure Blood Pressure [Right Arm] Blood Pressure Mean Blood Pressure Mean [Right Arm] Blood Pressure Position [Right Arm] Pulse Oximetry 94 95 94 Pulse Oximetry [Left Index Finger] Oxygen Delivery Method Oxygen Delivery Method [Left Index Finger] Oxygen Flow Rate 06/04/18 21:25 06/04/18 21:30 06/04/18 21:35 Temperature Temperature Source Sepsis Recent Fever Within 48 Hours Sepsis Action Taken by Nursing Pulse Rate 65 65 63 Pulse Rate [Radial] Pulse Rate [Right Finger] Pulse Rhythm Pulse Rhythm [Radial] Respiratory Rate 22 15 23 Respiratory Effort / Characteristics Respiratory Depth Respiratory Pattern Blood Pressure Blood Pressure [Right Arm] Blood Pressure Mean Blood Pressure Mean [Right Arm] Blood Pressure Position [Right Arm] Pulse Oximetry 94 94 95 Pulse Oximetry [Left Index Finger] Oxygen Delivery Method Oxygen Delivery Method [Left Index Finger] Oxygen Flow Rate 06/04/18 21:39 06/04/18 21:40 06/04/18 21:45 Temperature Temperature Source Sepsis Recent Fever Within 48 Hours Sepsis Action Taken by Nursing Pulse Rate 65 63 64 Pulse Rate [Radial] Pulse Rate [Right Finger] Pulse Rhythm Regular Pulse Rhythm [Radial] Respiratory Rate 16 22 19 Respiratory Effort / Characteristics Respiratory Depth Respiratory Pattern Blood Pressure Blood Pressure [Right Arm] Blood Pressure Mean Blood Pressure Mean [Right Arm] Blood Pressure Position [Right Arm] Pulse Oximetry 94 96 95 Pulse Oximetry [Left Index Finger] Oxygen Delivery Method Room Air Oxygen Delivery Method [Left Index Finger] Oxygen Flow Rate 06/04/18 21:50 06/04/18 21:55 06/04/18 22:00 Temperature Temperature Source Sepsis Recent Fever Within 48 Hours Sepsis Action Taken by Nursing Pulse Rate 63 Pulse Rate [Radial] Pulse Rate [Right Finger] Pulse Rhythm Pulse Rhythm [Radial] Respiratory Rate 19 20 17 Respiratory Effort / Characteristics Respiratory Depth Respiratory Pattern Blood Pressure Blood Pressure [Right Arm] Blood Pressure Mean Blood Pressure Mean [Right Arm] Blood Pressure Position [Right Arm] Pulse Oximetry 95 94 93 Pulse Oximetry [Left Index Finger] Oxygen Delivery Method Oxygen Delivery Method [Left Index Finger] Oxygen Flow Rate 06/04/18 22:05 06/04/18 22:10 06/04/18 22:30 Temperature Temperature Source Sepsis Recent Fever Within 48 Hours Sepsis Action Taken by Nursing Pulse Rate Pulse Rate [Radial] 107 H Pulse Rate [Right Finger] Pulse Rhythm Pulse Rhythm [Radial] Regular Respiratory Rate 17 19 20 Respiratory Effort / Characteristics Respiratory Depth Normal Respiratory Pattern Blood Pressure Blood Pressure [Right Arm] 178/90 H Blood Pressure Mean Blood Pressure Mean [Right Arm] 119 Blood Pressure Position [Right Arm] Pulse Oximetry 93 91 94 Pulse Oximetry [Left Index Finger] Oxygen Delivery Method Room Air Oxygen Delivery Method [Left Index Finger] Oxygen Flow Rate 06/04/18 22:43 06/04/18 22:44 06/04/18 22:45 Temperature Temperature Source Sepsis Recent Fever Within 48 Hours Sepsis Action Taken by Nursing Pulse Rate Pulse Rate [Radial] Pulse Rate [Right Finger] Pulse Rhythm Pulse Rhythm [Radial] Respiratory Rate 27 H Respiratory Effort / Characteristics Respiratory Depth Respiratory Pattern Blood Pressure 178/90 H Blood Pressure [Right Arm] Blood Pressure Mean 119 Blood Pressure Mean [Right Arm] Blood Pressure Position [Right Arm] Pulse Oximetry 93 94 94 Pulse Oximetry [Left Index Finger] Oxygen Delivery Method Oxygen Delivery Method [Left Index Finger] Oxygen Flow Rate 06/04/18 22:50 06/04/18 22:55 06/04/18 23:00 Temperature Temperature Source Sepsis Recent Fever Within 48 Hours Sepsis Action Taken by Nursing Pulse Rate 107 H 107 H 107 H Pulse Rate [Radial] Pulse Rate [Right Finger] Pulse Rhythm Pulse Rhythm [Radial] Respiratory Rate 24 18 19 Respiratory Effort / Characteristics Respiratory Depth Respiratory Pattern Blood Pressure Blood Pressure [Right Arm] Blood Pressure Mean Blood Pressure Mean [Right Arm] Blood Pressure Position [Right Arm] Pulse Oximetry 95 94 93 Pulse Oximetry [Left Index Finger] Oxygen Delivery Method Oxygen Delivery Method [Left Index Finger] Oxygen Flow Rate 06/04/18 23:05 06/04/18 23:10 06/04/18 23:15 Temperature Temperature Source Sepsis Recent Fever Within 48 Hours Sepsis Action Taken by Nursing Pulse Rate 63 63 64 Pulse Rate [Radial] Pulse Rate [Right Finger] Pulse Rhythm Pulse Rhythm [Radial] Respiratory Rate 12 16 21 Respiratory Effort / Characteristics Respiratory Depth Respiratory Pattern Blood Pressure Blood Pressure [Right Arm] Blood Pressure Mean Blood Pressure Mean [Right Arm] Blood Pressure Position [Right Arm] Pulse Oximetry 93 92 Pulse Oximetry [Left Index Finger] Oxygen Delivery Method Oxygen Delivery Method [Left Index Finger] Oxygen Flow Rate 06/04/18 23:20 06/04/18 23:25 06/04/18 23:30 Temperature Temperature Source Sepsis Recent Fever Within 48 Hours Sepsis Action Taken by Nursing Pulse Rate 63 64 65 Pulse Rate [Radial] Pulse Rate [Right Finger] Pulse Rhythm Pulse Rhythm [Radial] Respiratory Rate 14 17 20 Respiratory Effort / Characteristics Respiratory Depth Respiratory Pattern Blood Pressure Blood Pressure [Right Arm] Blood Pressure Mean Blood Pressure Mean [Right Arm] Blood Pressure Position [Right Arm] Pulse Oximetry Pulse Oximetry [Left Index Finger] Oxygen Delivery Method Oxygen Delivery Method [Left Index Finger] Oxygen Flow Rate 06/04/18 23:35 06/04/18 23:40 06/04/18 23:45 Temperature Temperature Source Sepsis Recent Fever Within 48 Hours Sepsis Action Taken by Nursing Pulse Rate 63 63 64 Pulse Rate [Radial] Pulse Rate [Right Finger] Pulse Rhythm Pulse Rhythm [Radial] Respiratory Rate 15 17 17 Respiratory Effort / Characteristics Respiratory Depth Respiratory Pattern Blood Pressure Blood Pressure [Right Arm] Blood Pressure Mean Blood Pressure Mean [Right Arm] Blood Pressure Position [Right Arm] Pulse Oximetry Pulse Oximetry [Left Index Finger] Oxygen Delivery Method Oxygen Delivery Method [Left Index Finger] Oxygen Flow Rate 06/04/18 23:50 06/04/18 23:51 06/04/18 23:55 Temperature Temperature Source Sepsis Recent Fever Within 48 Hours Sepsis Action Taken by Nursing Pulse Rate 64 63 64 Pulse Rate [Radial] Pulse Rate [Right Finger] Pulse Rhythm Pulse Rhythm [Radial] Respiratory Rate 17 21 18 Respiratory Effort / Characteristics Respiratory Depth Respiratory Pattern Blood Pressure 168/66 H Blood Pressure [Right Arm] Blood Pressure Mean 100 Blood Pressure Mean [Right Arm] Blood Pressure Position [Right Arm] Pulse Oximetry 93 93 97 Pulse Oximetry [Left Index Finger] Oxygen Delivery Method Oxygen Delivery Method [Left Index Finger] Oxygen Flow Rate 06/04/18 23:58 06/05/18 00:00 06/05/18 00:05 Temperature 36.8 C Temperature Source Oral Sepsis Recent Fever Within 48 Hours Sepsis Action Taken by Nursing Pulse Rate 65 63 65 Pulse Rate [Radial] Pulse Rate [Right Finger] Pulse Rhythm Pulse Rhythm [Radial] Respiratory Rate 17 16 19 Respiratory Effort / Characteristics Respiratory Depth Respiratory Pattern Blood Pressure 175/81 H 179/74 H Blood Pressure [Right Arm] Blood Pressure Mean 112 109 Blood Pressure Mean [Right Arm] Blood Pressure Position [Right Arm] Pulse Oximetry 94 94 94 Pulse Oximetry [Left Index Finger] Oxygen Delivery Method Oxygen Delivery Method [Left Index Finger] Oxygen Flow Rate 06/05/18 00:06 06/05/18 00:10 06/05/18 00:30 Temperature 36.4 C L 36.4 C L Temperature Source Oral Oral Sepsis Recent Fever Within 48 Hours Sepsis Action Taken by Nursing Pulse Rate 63 62 63 Pulse Rate [Radial] 62 Pulse Rate [Right Finger] Pulse Rhythm Regular Pulse Rhythm [Radial] Respiratory Rate 16 17 22 Respiratory Effort / Characteristics Short of Breath SOB on Exertion Respiratory Depth Normal Respiratory Pattern Regular Blood Pressure 176/68 H 185/62 H Blood Pressure [Right Arm] 185/62 H Blood Pressure Mean 104 103 Blood Pressure Mean [Right Arm] 103 Blood Pressure Position [Right Arm] Pulse Oximetry 96 95 96 Pulse Oximetry [Left Index Finger] Oxygen Delivery Method Room Air Oxygen Delivery Method [Left Index Finger] Oxygen Flow Rate 06/05/18 01:00 06/05/18 01:05 06/05/18 02:00 Temperature 36.5 C 36.5 C Temperature Source Oral Oral Sepsis Recent Fever Within 48 Hours Sepsis Action Taken by Nursing Pulse Rate 62 62 Pulse Rate [Radial] Pulse Rate [Right Finger] Pulse Rhythm Pulse Rhythm [Radial] Respiratory Rate 20 20 Respiratory Effort / Characteristics Respiratory Depth Respiratory Pattern Blood Pressure 187/74 H 181/74 H Blood Pressure [Right Arm] Blood Pressure Mean 111 109 Blood Pressure Mean [Right Arm] Blood Pressure Position [Right Arm] Pulse Oximetry 95 97 Pulse Oximetry [Left Index Finger] 95 Oxygen Delivery Method Oxygen Delivery Method [Left Index Finger] Room Air Oxygen Flow Rate 2 06/05/18 02:40 06/05/18 04:20 06/05/18 07:21 Temperature 36.5 C 36.5 C Temperature Source Oral Oral Sepsis Recent Fever Within 48 Hours Sepsis Action Taken by Nursing Pulse Rate 62 Pulse Rate [Radial] 62 Pulse Rate [Right Finger] Pulse Rhythm Pulse Rhythm [Radial] Respiratory Rate 22 22 Respiratory Effort / Characteristics Respiratory Depth Respiratory Pattern Blood Pressure 161/68 H Blood Pressure [Right Arm] 184/77 H Blood Pressure Mean 99 Blood Pressure Mean [Right Arm] 112 Blood Pressure Position [Right Arm] Pulse Oximetry 96 96 84 L Pulse Oximetry [Left Index Finger] Oxygen Delivery Method Nasal Cannula Room Air Oxygen Delivery Method [Left Index Finger] Oxygen Flow Rate 2 2 06/05/18 07:22 Temperature 36.3 C L Temperature Source Oral Sepsis Recent Fever Within 48 Hours Sepsis Action Taken by Nursing Pulse Rate Pulse Rate [Radial] Pulse Rate [Right Finger] 61 Pulse Rhythm Pulse Rhythm [Radial] Respiratory Rate 20 Respiratory Effort / Characteristics Respiratory Depth Respiratory Pattern Blood Pressure Blood Pressure [Right Arm] 171/70 H Blood Pressure Mean Blood Pressure Mean [Right Arm] 103 Blood Pressure Position [Right Arm] Sitting Pulse Oximetry 91 Pulse Oximetry [Left Index Finger] Oxygen Delivery Method Nasal Cannula Oxygen Delivery Method [Left Index Finger] Oxygen Flow Rate 2.0 VITAL SIGNS - Vital signs and nursing notes were reviewed. Stable. Afebrile. GENERAL -78-year-old male appearing his stated age who is in no acute distress. Communicates well with provider and answers questions appropriately. SKIN - Without rashes. No meningeal or petechial rash. Patient does have a fistula in place in the left forearm. HEAD - NC/AT. EYES - PERRL with EOMI bilaterally. Sclera anicteric. EARS - No deformities of external structures noted on gross examination bilaterally. NOSE - Midline and without cyanosis. No epistaxis or purulent drainage noted. MOUTH/OROPHARYNX - Without perioral cyanosis. NECK - Neck with FROM. No nuchal rigidity. LUNGS - Chest wall symmetric without accessory muscle use, intercostals retractions, or central cyanosis. Normal vesicular breath sounds CTA B/L. No wheezes, rales, or rhonchi appreciated. CARDIAC - RRR ABDOMEN - Abdominal contour normal without pulsations or visible masses. No tenderness. Bowel sounds present. EXTREMITIES - No clubbing or peripheral cyanosis. No pretibial edema present. +5 /5 strength noted in UE/LE bilaterally. NEUROLOGIC - Cranial nerves II through XII grossly intact. PSYCH - A&Ox3 and cooperates fully with examiner. Pt is very pleasant and interacts well with examiner. RECTAL: Hemoccult testing positive. No hemorrhoids noted. Otherwise unremarkable exam. Course Administered Medications Calcium Acetate (Phoslo) 1,334 mg PO TIDM [facility] Stop: 07/05/18 07:59 Last Admin: 06/05/18 07:26 Dose: 1,334 mg Docusate Sodium (Colace) 100 mg PO QAM [facility] Stop: 07/05/18 08:59 Last Admin: 06/05/18 07:29 Dose: 100 mg Furosemide (Lasix) 80 mg PO BID [facility] Stop: 07/05/18 08:59 Last Admin: 06/05/18 07:30 Dose: 80 mg Gabapentin (Neurontin) 100 mg PO HS [facility] Stop: 07/05/18 20:59 Last Admin: 06/05/18 07:31 Dose: 100 mg Hydralazine HCl (Apresoline) 10 mg PO TID [facility] Stop: 07/05/18 08:59 Last Admin: 06/05/18 07:29 Dose: 10 mg Insulin Aspart (Novolog Flexpen) 0 units SC ACHS [facility] Stop: 07/05/18 07:29 Last Admin: 06/05/18 09:29 Dose: 5 units Labetalol HCl (Normodyne) 400 mg PO BID [facility] Stop: 07/05/18 08:59 Last Admin: 06/05/18 07:28 Dose: 400 mg Levothyroxine Sodium (Synthroid) 200 mcg PO DAILYBB [facility] Stop: 07/05/18 06:29 Last Admin: 06/05/18 06:08 Dose: 200 mcg Lisinopril (Zestril) 40 mg PO DAILY@1200 [facility] Stop: 07/05/18 11:59 Last Admin: 06/05/18 07:31 Dose: 40 mg Pantoprazole Sodium (Protonix) 40 mg PO BID [facility] Stop: 07/05/18 01:09 Last Admin: 06/05/18 07:27 Dose: 40 mg Admin: 06/05/18 01:48 Dose: 40 mg Sucralfate (Carafate Tab) 1 gm PO ACHS [facility] Stop: 07/05/18 07:29 Last Admin: 06/05/18 07:28 Dose: 1 gm Tamsulosin HCl (Flomax) 0.4 mg PO QAM [facility] Stop: 07/05/18 08:59 Last Admin: 06/05/18 07:30 Dose: 0.4 mg Vitamin B Complex/Folic Acid (Nephrocaps) 1 cap PO DAILY@1200 [facility] Stop: 07/05/18 11:59 Last Admin: 06/05/18 07:31 Dose: 1 cap Discontinued Medications Acetaminophen (Tylenol) 500 mg PO NOW STA Stop: 06/04/18 23:32 Last Admin: 06/04/18 23:50 Dose: 500 mg Furosemide (Lasix) 40 mg IV NOW STA Stop: 06/04/18 23:21 Last Admin: 06/04/18 23:50 Dose: 40 mg Medical Decision Making Laboratory Data Result diagrams: 06/05/18 07:11 06/05/18 03:14 Lab Results 06/04/18 06/04/18 06/04/18 Range/Units 20:50 20:50 22:39 WBC 3.67 L (4.8-10.8) K/uL RBC 2.78 L (4.7-6.1) M/uL Hgb 7.1 L (14.0-18.0) g/dL Hct 23.2 L (42-52) % MCV 83.5 (80-100) fL MCH 25.5 (25-34) pg MCHC 30.6 L (32-36) g/dL RDW Std Deviation 51.4 H (36.4-46.3) fL RDW Coeff of Jose C 16.5 H (11.5-14.5) % Plt Count 169 (130-400) K/uL MPV 10.9 H (7.4-10.4) fL Immature Gran % (Auto) 0.3 % Neut % (Auto) 73.3 % Lymph % (Auto) 15.0 % [place] % (Auto) 7.9 % Eos % (Auto) 2.7 % Baso % (Auto) 0.8 % Immature Gran # (Auto) 0.01 (0.00-0.02) K/uL Neut # (Auto) 2.69 (1.4-6.5) K/uL Lymph # (Auto) 0.55 L (1.2-3.4) K/uL [place] # (Auto) 0.29 (0.11-0.59) K/uL Eos # (Auto) 0.10 (0-0.5) K/uL Baso # (Auto) 0.03 (0-0.2) K/uL Hypochromasia Present Schistocytes 1+ Sodium 142 (136-145) mmol/L Potassium 3.6 (3.5-5.1) mmol/L Chloride 106 (98-107) mmol/L Carbon Dioxide 22 (21-32) mmol/L Anion Gap 14.0 H (3-11) BUN 112 H (7-18) mg/dl Creatinine 11.70 H* (0.6-1.4) mg/dl Est Cr Clr Drug Dosing 6.9 ml/min Est GFR ( Amer) 4.3 Est GFR (Non-Af Amer) 3.7 BUN/Creatinine Ratio 9.6 L (10-20) Glucose 231 H (70-99) mg/dl Calcium 9.0 (8.5-10.1) mg/dl Magnesium 2.5 H (1.8-2.4) mg/dl Total Bilirubin 0.4 (0.2-1) mg/dl AST 11 L (15-37) U/L ALT 21 (12-78) U/L Alkaline Phosphatase 90 (45-117) U/L Troponin I 0.086 H* (0-0.045) ng/ml NT-Pro-B Natriuret Pep 79487 H (0-1800) pg/ml Total Protein 6.5 (6.4-8.2) gm/dl Albumin 3.2 L (3.4-5.0) gm/dl Globulin 3.3 (2.5-4.0) gm/dl Albumin/Globulin Ratio 1.0 (0.9-2) Urine Color Urine Appearance (Clear) Urine pH (4.5-7.5) Ur Specific [place] (1.000-1.030) Urine Protein (Negative) Urine Glucose (UA) (Negative) Urine Ketones (Negative) Urine Blood (Negative) Urine Nitrite (Negative) Urine Bilirubin (Negative) Urine Urobilinogen (Negative) Ur Leukocyte Esterase (Negative) Urine WBC (Auto) (0-5) /hpf Urine RBC (Auto) (0-4) /hpf U Hyaline Cast (Auto) (0-5) /lpf U Epithel Cells (Auto) (0-5) /lpf Urine Bacteria (Auto) (Negative) Blood Type B Positive Antibody Screen NEGATIVE Crossmatch See Detail 06/05/18 06/05/18 06/05/18 Range/Units 01:30 03:14 03:14 WBC (4.8-10.8) K/uL RBC (4.7-6.1) M/uL Hgb 7.2 L (14.0-18.0) g/dL Hct (42-52) % MCV (80-100) fL MCH (25-34) pg MCHC (32-36) g/dL RDW Std Deviation (36.4-46.3) fL RDW Coeff of Jose C (11.5-14.5) % Plt Count (130-400) K/uL MPV (7.4-10.4) fL Immature Gran % (Auto) % Neut % (Auto) % Lymph % (Auto) % [place] % (Auto) % Eos % (Auto) % Baso % (Auto) % Immature Gran # (Auto) (0.00-0.02) K/uL Neut # (Auto) (1.4-6.5) K/uL Lymph # (Auto) (1.2-3.4) K/uL [place] # (Auto) (0.11-0.59) K/uL Eos # (Auto) (0-0.5) K/uL Baso # (Auto) (0-0.2) K/uL Hypochromasia Schistocytes Sodium 145 (136-145) mmol/L Potassium 3.5 (3.5-5.1) mmol/L Chloride 109 H (98-107) mmol/L Carbon Dioxide 26 (21-32) mmol/L Anion Gap 10.0 (3-11) BUN 115 H (7-18) mg/dl Creatinine 11.50 H* (0.6-1.4) mg/dl Est Cr Clr Drug Dosing 7.0 ml/min Est GFR ( Amer) 4.4 Est GFR (Non-Af Amer) 3.8 BUN/Creatinine Ratio 9.9 L (10-20) Glucose 187 H (70-99) mg/dl Calcium 8.9 (8.5-10.1) mg/dl Magnesium (1.8-2.4) mg/dl Total Bilirubin (0.2-1) mg/dl AST (15-37) U/L ALT (12-78) U/L Alkaline Phosphatase (45-117) U/L Troponin I (0-0.045) ng/ml NT-Pro-B Natriuret Pep (0-1800) pg/ml Total Protein (6.4-8.2) gm/dl Albumin (3.4-5.0) gm/dl Globulin (2.5-4.0) gm/dl Albumin/Globulin Ratio (0.9-2) Urine Color Yellow Urine Appearance Clear (Clear) Urine pH 5.5 (4.5-7.5) Ur Specific [place] 1.015 (1.000-1.030) Urine Protein 3+ H (Negative) Urine Glucose (UA) 2+ H (Negative) Urine Ketones Negative (Negative) Urine Blood Trace H (Negative) Urine Nitrite Negative (Negative) Urine Bilirubin Negative (Negative) Urine Urobilinogen Negative (Negative) Ur Leukocyte Esterase Negative (Negative) Urine WBC (Auto) 1-5 (0-5) /hpf Urine RBC (Auto) 0-4 (0-4) /hpf U Hyaline Cast (Auto) 1-5 (0-5) /lpf U Epithel Cells (Auto) 10-20 H (0-5) /lpf Urine Bacteria (Auto) Negative (Negative) Blood Type Antibody Screen Crossmatch 06/05/18 Range/Units 07:11 WBC (4.8-10.8) K/uL RBC (4.7-6.1) M/uL Hgb 7.1 L (14.0-18.0) g/dL Hct (42-52) % MCV (80-100) fL MCH (25-34) pg MCHC (32-36) g/dL RDW Std Deviation (36.4-46.3) fL RDW Coeff of Jose C (11.5-14.5) % Plt Count (130-400) K/uL MPV (7.4-10.4) fL Immature Gran % (Auto) % Neut % (Auto) % Lymph % (Auto) % [place] % (Auto) % Eos % (Auto) % Baso % (Auto) % Immature Gran # (Auto) (0.00-0.02) K/uL Neut # (Auto) (1.4-6.5) K/uL Lymph # (Auto) (1.2-3.4) K/uL [place] # (Auto) (0.11-0.59) K/uL Eos # (Auto) (0-0.5) K/uL Baso # (Auto) (0-0.2) K/uL Hypochromasia Schistocytes Sodium (136-145) mmol/L Potassium (3.5-5.1) mmol/L Chloride (98-107) mmol/L Carbon Dioxide (21-32) mmol/L Anion Gap (3-11) BUN (7-18) mg/dl Creatinine (0.6-1.4) mg/dl Est Cr Clr Drug Dosing ml/min Est GFR ( Amer) Est GFR (Non-Af Amer) BUN/Creatinine Ratio (10-20) Glucose (70-99) mg/dl Calcium (8.5-10.1) mg/dl Magnesium (1.8-2.4) mg/dl Total Bilirubin (0.2-1) mg/dl AST (15-37) U/L ALT (12-78) U/L Alkaline Phosphatase (45-117) U/L Troponin I (0-0.045) ng/ml NT-Pro-B Natriuret Pep (0-1800) pg/ml Total Protein (6.4-8.2) gm/dl Albumin (3.4-5.0) gm/dl Globulin (2.5-4.0) gm/dl Albumin/Globulin Ratio (0.9-2) Urine Color Urine Appearance (Clear) Urine pH (4.5-7.5) Ur Specific [place] (1.000-1.030) Urine Protein (Negative) Urine Glucose (UA) (Negative) Urine Ketones (Negative) Urine Blood (Negative) Urine Nitrite (Negative) Urine Bilirubin (Negative) Urine Urobilinogen (Negative) Ur Leukocyte Esterase (Negative) Urine WBC (Auto) (0-5) /hpf Urine RBC (Auto) (0-4) /hpf U Hyaline Cast (Auto) (0-5) /lpf U Epithel Cells (Auto) (0-5) /lpf Urine Bacteria (Auto) (Negative) Blood Type Antibody Screen Crossmatch Imaging Data Radiologist's Impression: XR chest 1V portable HISTORY: 78 years-old Male shortness of breath acute shortness of breath COMPARISON: Chest radiograph 04/20/2018 TECHNIQUE: Portable AP view of the chest FINDINGS: Cardiac silhouette is mildly enlarged, unchanged. Calcification of the thoracic aortic arch. Mild pulmonary vascular congestion without overt pulmonary edema. No pneumothorax or large pleural effusion. Segmental bibasilar opacities. Degenerative changes of the shoulders and spine. IMPRESSION: 1. Cardiomegaly without overt pulmonary edema. 2. Bibasilar opacities suggest atelectasis with pneumonitis considered less likely. The above report was generated using voice recognition software. It may contain grammatical, syntax or spelling errors. Electronically signed by: Jaycob Ag M.D. 06/04/2018 9:53 PM MDM Narrative Patient was seen and evaluated as above in room a 10. Review was performed of nursing notes and vital signs. After obtaining a thorough history and physical examination the above work up was performed. He presents to us today with shortness of breath. He has missed 5 of his scheduled dialysis sessions. He is nontoxic on examination and yield stable vital signs. He does have a significant past medical history. IV access was established and the above workup was performed. In review of his labs there is noted anemia with hemoglobin of 7.1 which has dropped nearly 2 points over the past month. Patient's metabolic panel does reveal creatinine of 11.50 which is not new, glucose 187, magnesium of 2.5, troponin of 0.086, which I will note is also not unusual compared to his baseline BNP is also elevated but in the setting of end- stage renal disease, and urinalysis does not suggest infection. I do believe the patient is symptomatic with his anemia, and the concern was the source of his blood loss. Consent was obtained from the patient, and a rectal exam was performed. This was found to be heme positive. I do believe that he is experiencing a GI bleed causing the loss of blood of nearly 2 points in the past month. I believe he is symptomatic with such causing the shortness of breath and certainly could also be coming from missing dialysis. I do believe that further evaluation and management is warranted in the inpatient setting. 1 unit was ordered. Consent was obtained by the attending physician. Case discussed with the attending physician and subsequently the hospitalist. Please refer to further documentation regarding his stay. I attest that I have personally reviewed the patient medication list. I attest that I have reviewed the patient's blood pressure and it was found to be elevated likely secondary to presentation. In the evaluation and treatment of this patient, the following differential diagnoses were considered: UT, ASC, Dysrhythmia, Angina, Mediastinitis, GERD, Esophagitis, PE, Pneumonia, Bronchitis, Costochondritis, Rib Fracture, Zoster, electrolyte abnormality, among others. Impression & Plan Anemia, GI bleed, Elevated troponin, Shortness of breath Discharge Plan Visit Data *Final* Discharge Date/Time: 06/05/18 00:12 Chief Complaint: Shortness of Breath/Dyspnea Stated Complaint: SOB,SWOLLEN, ED Provider: Bernie Vega ED Midlevel Provider: Joaquim Michelle Discharge Problem: Anemia, GI bleed, Elevated troponin, Shortness of breath Patient Disposition: Admitted As Inpatient Discharge Instructions Interventions: ED Discharge Assessment Last Done: 06/05/18 00:12
[2018-06-04 22:13] LABS: Hypochromasia Present; Schistocytes 1+
[2018-06-04 22:17] LABS: Albumin Level 3.2 gm/dl (3.4-5.0); BUN Creatinine Ratio 9.6 (10-20); Bilirubin,Total 0.4 mg/dl (0.2-1); Creatinine Clr Calc Pharmacy 6.9 ml/min; Est GFR (African American) 4.3; Est GFR (Non-African American) 3.7; Globulin 3.3 gm/dl (2.5-4.0); Magnesium 2.5 mg/dl (1.8-2.4); Potassium 3.6 mmol/L (3.5-5.1); Total Protein 6.5 gm/dl (6.4-8.2); Troponin I 0.086 ng/ml (0-0.045)
--- NOTE | 2018-06-04 23:08 | History & Physical Report ---
Date of Service June 04, 2018 Assessment & Plan (1) Shortness of breath: 78 y/o M Hs CAD, COPD, chronic GI blood loss, chronic anemia, DM II, Diastolic CHF, hypothyroidism, ESRD - HD, recent admission for acute GI bleed owing to a gastric ulcer 04/20. Presents with a chief complaint of SOB having missed 5 consecutive dialysis sessions for an unknown reason. Denies present CP , a productive cough or fevers. Initial labs are notable for worsening anemia (Hb 7.0 down from 9.0 05/05), an elevated troponin which is chronic and an expectedly elevated BUN/creat with a normal K. The pt is guaiac + which per our records is also chronic. 1) SOB - may be multifactorial - anemia and volume overload due to missed dialysis. - ESRD/missed dialysis - The nephrology service will be consulted. A dose of IV Lasix is provided as he still makes urine. - Anemia - GI blood loss - possibly acute on chronic considering recent gastric bleed. we will provide IV protonix and consult GI. The pt will receive a unit of PRBCs and we should likely provide another prior to or after dialysis. The pt also mentions that he is due to attend [place] for a surgical procedure to treat his telangiectasias on 06/28 2) CAD - elevated trop, appears to be chronic and approximates baseline number. We will obtain another to insure there is no acute upward trend. This is less likely a contributing factor to his presentation. Cont B amberly and a Statin. 3) DM II - will place on a sliding scale 4) Hypothyroidism - cont Synthroid 5) BPH - cont Flomax 6) HTN - cont Hydralazine, Lisinopril, Labetolol, Norvasc 7) Diastolic CHF - managed with diuretics and dialysis - intended for dialysis AM, cont Lasix Full code SCDs only Total time for this admit including review of labs, meds, imaging, extensive records - discussion with pt and ER attending - 50 min Present on Admission?: Yes History of Present Illness Chief Complaint: Short of breath Primary Care Provider: Mahsa Wang 78 y/o M Hs CAD, COPD, chronic GI blood loss, chronic anemia, DM II, diastolic CHF, hypothyroidism, ESRD - HD, recent admission for acute GI bleed owing to a gastric ulcer 04/20. Presents with a chief complaint of SOB having missed 5 consecutive dialysis sessions for an unknown reason. Denies present CP, a productive cough or fevers. Initial labs are notable for worsening anemia (Hb 7.0 down from 9.0 05/05), an elevated troponin which is chronic and an expectedly elevated BUN/creat with a normal K. The pt is guaiac + which per our records is also chronic. PMH: 1) ESRD - HD Tue, [place], Sat 2) CAD reported in chart - chronic trop elevation - Nuclear stress 03/2016. No evidence of ischemia, normal LV function. 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 Family: CAD, DM Allergies Allergy/AdvReac Type Severity Reaction Status Date / Time metformin AdvReac Intermediate CONFUSION Verified 06/04/18 21:47 Home Medications Home Medications Medication Instructions Recorded Confirmed Type B complex with C#20-folic acid 1 mg PO DAILY@1200 04/19/18 06/04/18 History amlodipine 10 mg PO HS 04/19/18 06/04/18 History calcium acetate 1,334 mg PO TIDM 04/19/18 06/04/18 History docusate sodium 100 mg PO QAM 04/19/18 06/04/18 History furosemide 80 mg PO BID 04/19/18 06/04/18 History gabapentin 100 mg PO HS 04/19/18 06/04/18 History labetalol 400 mg PO BID 04/19/18 06/04/18 History levothyroxine 50 mcg PO 5XWK 04/19/18 06/04/18 History levothyroxine 200 mcg PO QAM 04/19/18 06/04/18 History lisinopril 40 mg PO DAILY@1200 04/19/18 06/04/18 History rosuvastatin 20 mg PO QPM 04/19/18 06/04/18 History tamsulosin 0.4 mg PO QAM 04/19/18 06/04/18 History hydralazine 10 mg PO TID #90 tab 04/23/18 06/04/18 Rx pantoprazole 40 mg PO BID #60 tab 04/23/18 06/04/18 Rx sucralfate 1 g PO ACHS #120 tab 04/23/18 06/04/18 Rx insulin detemir U-100 [Levemir 45 units SUBCUT QPM 06/04/18 06/04/18 History U-100 Insulin] insulin detemir U-100 [Levemir 50 units SUBCUT QAM 06/04/18 06/04/18 History U-100 Insulin] nut.tx.gluc intol,lf,soy-fiber 1 ea PO WM 06/04/18 06/04/18 History [Boost Glucose Control] Past Med/Surg History Medical History BPH (benign prostatic hyperplasia) Hypothyroidism Diabetes (Chronic) Hypertensive urgency (Acute) Epistaxis (Chronic) Heart disease (Chronic) Secondary hyperparathyroidism of renal origin Anemia End-stage renal disease on hemodialysis COPD (chronic obstructive pulmonary disease) Social History marital status: Current Living Situation: Spouse Feels Safe at Home: Yes Smoking Status: Former smoker Hx Alcohol Use: No Hx Substance Use: No Beliefs That Will Affect Care: None Preferred Language: Lithuanian Review of Systems General: Denies fevers, night sweats, weight loss, weight gain ENT: Denies throat pain, nasal congestion Eyes: Denies acute visual impairment, eye pain Cardiovascular: Denies CP, palpitations, PND, orthopnea Respiratory: Progressive SOB - pronounced with exertion GI: Denies nausea, vomiting, diarrhea, constipation, GI bleeding : Denies dysuria, hesitancy, frequency, hematuria Neuro: Denies headache, lightheadedness, syncope, unilateral weakness, acute loss of balance, memory loss Musculoskeletal: Describes muscle pain which he states he has with anemia Endocrine: Denies polydypsia, polyuria Heme: Denies unexplained bruising Skin: Denies acute rash or ulcers Physical Exam 2 Vital Signs (Past 24 Hours): Last Vital Signs Temp 36.7 C 06/04/18 20:30 Pulse 107 H 06/04/18 22:30 Resp 20 06/04/18 22:30 BP 178/90 H 06/04/18 22:30 Pulse Ox 94 06/04/18 22:30 Physical Exam: General: AAO x 3, no distress ENT: No erythema or exudates, no thrush Eyes: DELMAR, EOMI Head and neck: Normocephalic, atraumatic, + BL JVD Chest/heart: Nontender, S1,2, RRR, no murmurs, no gallops Lungs: Poor air movement - no crackles Abdomen: Dsitended, nontender abdomen Neuro: AAO x 3, speech is clear, no unilateral weakness or loss of sensation, coordination intact Musculoskeletal: No joint inflammation, muscle tenderness, FROM Skin: No acute rashes or ulcers Extremities: No clubbing, cyanosis, edema - + pulses, AV fistula is functional Results & Data Diagnostic Findings Echo 04/20: Normal LV size with severe left ventricular hypertrophy, EF 65-70%. The RV was dilated and mildly hypokinetic. Severe left atrial enlargement, mild to moderate mitral regurgitation, type 2 diastolic dysfunction and mild pulmonary hypertension. Previous echocardiogram suggested severe pulmonary hypertension. Nuclear stress test 03/2016. No evidence of ischemia, normal LV function.
[2018-06-04] MEDS ORDERED: FUROSEMIDE 40 MG/4 ML VIAL IV STA (23:20)
[2018-06-04] MEDS ORDERED: ACETAMINOPHEN 500 MG TAB PO STA (23:31)
--- NOTE | 2018-06-04 23:59 | Emergency Department Note ---
ED Visit Note Patient seen and evaluated bedside after discussion with the physician certified physician's assistant. Patient and family aware of all results in agreement with plan. I did consent the patient for blood products at bedside as well. Patient hemo- dynamically stable here. .
[2018-06-05] MEDS ORDERED: NITROGLYCERIN SL 0.4 MG/TAB TAB SL PRN (01:05)
[2018-06-05] MEDS ORDERED: [UNRECOGNIZED DRUG - OTHER] PO SCH (01:05)
[2018-06-05] MEDS ORDERED: MoRPHine SULFATE 2 MG/ML CARP IV PRN (01:05)
[2018-06-05] MEDS ORDERED: POLYETHYLENE (MIRALAX) 17 GM PACK PO PRN (01:05)
[2018-06-05] MEDS ORDERED: ALUMINUM/MAGNESIUM SUSP 30 ML UDC PO PRN (01:05)
[2018-06-05] MEDS ORDERED: MAGNESIUM HYDROXIDE SUSP 30 ML UDC PO PRN (01:05)
[2018-06-05] MEDS: PANTOprazole 40 MG TAB PO SCH ×3 (01:48→20:16)
[2018-06-05 01:59] LABS: Appearance Urine Clear (Clear); Bacteria Urine Automated Negative (Negative); Bilirubin Urine Negative (Negative); Color Urine Yellow; Glucose Urine UA 2+ (Negative); Ketones Urine Negative (Negative); Leukocyte Esterase Urine Negative (Negative); Nitrite Urine Negative (Negative); Protein Urine 3+ (Negative); Specific Gravity Urine 1.015 (1.000-1.030); Urobilinogen Urine Negative (Negative); pH Urine 5.5 (4.5-7.5)
[2018-06-05] MEDS ORDERED: CARBOHYDRATES FOR HYPOGLYCEMIA PO PRN (03:46)
[2018-06-05] MEDS ORDERED: DEXTROSE 50% 50 ML SYRINGE IV PRN (03:46)
[2018-06-05] MEDS ORDERED: GLUCAGON FOR INJ 1 MG VIAL SQ PRN (03:46)
[2018-06-05] MEDS ORDERED: GLUCOSE 40% GEL 15 GM TUBE PO PRN (03:46)
[2018-06-05] MEDS ORDERED: GLUCOSE 10 TABS/TUBE PO PRN (03:46)
[2018-06-05 04:49] LABS: BUN Creatinine Ratio 9.9 (10-20); Calcium 8.9 mg/dl (8.5-10.1); Est GFR (African American) 4.4; Est GFR (Non-African American) 3.8; Potassium 3.5 mmol/L (3.5-5.1)
[2018-06-05] MEDS: LEVOTHYROXINE SODIUM 200 MCG TABLET PO SCH (06:08)
[2018-06-05] MEDS: CALCIUM ACETATE 667 MG CAP PO SCH ×3 (07:26→17:13)
[2018-06-05] MEDS: LABETALOL HCL 200 MG TAB PO SCH ×2 (07:28→20:14)
[2018-06-05] MEDS: SUCRALFATE 1 GM TAB PO SCH ×4 (07:28→20:13)
[2018-06-05] MEDS: HydrALAZINE 10 MG TAB PO SCH ×3 (07:29→20:15)
[2018-06-05] MEDS: DOCUSATE SODIUM 100 MG CAP PO SCH (07:29)
[2018-06-05] MEDS: TAMSULOSIN HCL 0.4 MG CAP PO SCH (07:30)
[2018-06-05] MEDS: FUROSEMIDE 80 MG TAB PO SCH ×2 (07:30→20:15)
[2018-06-05] MEDS: NEPHROCAPS PO SCH (07:31)
[2018-06-05] MEDS: LISINOPRIL 40 MG TAB PO SCH (07:31)
[2018-06-05] MEDS: GABAPENTIN 100 MG CAP PO SCH (07:31)
[2018-06-05] MEDS ORDERED: SODIUM CHLORIDE 0.9% 1000ML 1,000 ML IV PRN (08:52)
[2018-06-05] MEDS ORDERED: SODIUM CHLORIDE 0.9% 250 ML IV PRN (08:55)
[2018-06-05] MEDS: INSULIN ASPART 100 UNITS/ML 3 ML PEN SC SCH ×4 (09:29→21:43)
[2018-06-05 10:05] LABS: INR 1.2 (0.9-1.1); Partial Thromboplastin Ratio 1.1; Prothrombin Time 11.6 Seconds (9.0-12.0)
--- NOTE | 2018-06-05 10:13 | Nephrology Consultation ---
Date of Consultation June 05, 2018 Assessment & Plan (1) End-stage renal disease on hemodialysis: -- Orders for emergent HD have been entered into the EMR and communicated to the dailysis nurse -- UF goal 3 kg as tolerated -- Plan of care discussed with outpatient HD unit -- A significant amount of time was spent counseling Mr. Mcintyre today and discussing the importance of regular follow up for dialysis -- Protect L arm dialysis access (2) Anemia: -- PRBC transfusion provided overnight and 1 unit with HD today for Hgb < 8 -- Monitor H/H with daily labs -- Closely monitor for evidence of GI blood loss (3) Hypertension: -- BP accelerated in setting of volume overload from missed HD -- Will monitor post dialysis -- No adjustment in antihypertensives at this time History of Present Illness Reason for Consultation: ESRD on HD Requesting Physician: Duglas Blankenship MD Attending Physician: Duglas Blankenship MD History of Present Illness Mr. Mcintyre was seen and evaluated in his hospital room this morning assist w/ management of kidney dysfunction and provide inpatient HD. Mr. Mcintyre has ESRD due to diabetic nephropathy and hypertensive nephrosclerosis. He dialyzes TTS at the [facility] dialysis unit (Dr. Briceno). He has missed his past 5 HD treatments. Mr. Mcintyre denies any specific reason for missed treatments. He states that he could not convince himself to go but never intended to stop completely. 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 Within the past 28 hours, he started to notice change in activity tolerance and increasing dyspnea. Mr. Mcintyre has had recurrent iron deficiency anemia. 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 Mr. Mcintyre has required blood transfusion in the past due to chronic persistent UGI blood loss. He was most recently admitted to [facility] in April with GI bleed requiring cauterization. His medical history is also significant for COPD, AODM, ASCVD and HTN. Allergies Allergy/AdvReac Type Severity Reaction Status Date / Time metformin AdvReac Intermediate CONFUSION Verified 06/04/18 21:47 Home Medications Home Medications Medication Instructions Recorded Confirmed Type B complex with C#20-folic acid 1 mg PO DAILY@1200 04/19/18 06/04/18 History amlodipine 10 mg PO HS 04/19/18 06/04/18 History calcium acetate 1,334 mg PO TIDM 04/19/18 06/04/18 History docusate sodium 100 mg PO QAM 04/19/18 06/04/18 History furosemide 80 mg PO BID 04/19/18 06/04/18 History gabapentin 100 mg PO HS 04/19/18 06/04/18 History labetalol 400 mg PO BID 04/19/18 06/04/18 History levothyroxine 50 mcg PO 5XWK 04/19/18 06/04/18 History levothyroxine 200 mcg PO QAM 04/19/18 06/04/18 History lisinopril 40 mg PO DAILY@1200 04/19/18 06/04/18 History rosuvastatin 20 mg PO QPM 04/19/18 06/04/18 History tamsulosin 0.4 mg PO QAM 04/19/18 06/04/18 History hydralazine 10 mg PO TID #90 tab 04/23/18 06/04/18 Rx pantoprazole 40 mg PO BID #60 tab 04/23/18 06/04/18 Rx sucralfate 1 g PO ACHS #120 tab 04/23/18 06/04/18 Rx insulin detemir U-100 [Levemir 45 units SUBCUT QPM 06/04/18 06/04/18 History U-100 Insulin] insulin detemir U-100 [Levemir 50 units SUBCUT QAM 06/04/18 06/04/18 History U-100 Insulin] nut.tx.gluc intol,lf,soy-fiber 1 ea PO WM 06/04/18 06/04/18 History [Boost Glucose Control] Patient History Medical History BPH (benign prostatic hyperplasia) Hypothyroidism Diabetes (Chronic) Hypertensive urgency (Acute) Epistaxis (Chronic) Heart disease (Chronic) Secondary hyperparathyroidism of renal origin Anemia (Acute) End-stage renal disease on hemodialysis COPD (chronic obstructive pulmonary disease) AVF (arteriovenous fistula) Surgical History No pertinent past surgical history Family History Unknown Heart attack Diabetes Social History marital status: Current Living Situation: Spouse Other Information That Helps Us Care for You: No Feels Safe at Home: Yes Safety Concerns: Feels Safe At This Time Smoking Status: Former smoker Tobacco Type: cigarettes Do You Dip or Chew Tobacco: No Second Hand Exposure: No Tobacco Cessation Education Requested by Patient: No Hx Alcohol Use: No Hx Substance Use: No Beliefs That Will Affect Care: None Preferred Language: Luxembourgish Communication Ability: Effective 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 Physical Exam 2 Vital Signs (Past 24 Hours): Last Vital Signs Temp 36.3 C L 06/05/18 07:22 Pulse 61 06/05/18 07:22 Resp 20 06/05/18 07:22 BP 171/70 H 06/05/18 07:22 Pulse Ox 91 06/05/18 07:22 Constitutional: well developed and + thin; no acute distress and not ill appearing Eyes: no scleral abnormality and no corneal abnormality ENMT: external ear and nose normal, oropharynx normal Neck: trachea midline, no thyromegaly Respiratory: normal respiratory effort; no respiratory distress Auscultation: lungs clear to auscultation bilaterally and + rales (basilar) Cardiovascular: Heart Sounds: normal S1 and normal S2 Gastrointestinal (Abdomen): Inspection/Auscultation: abdomen normal to inspection Percussion/Palpation: abdomen soft Musculoskeletal: Extremities: extremities normal to inspection; no cyanosis and no clubbing Skin: no rashes, warm and dry Results & Data Laboratory Results Laboratory Results - last 24 hr 06/04/18 06/04/18 06/04/18 20:50 20:50 22:39 WBC 3.67 L RBC 2.78 L Hgb 7.1 L Hct 23.2 L MCV 83.5 MCH 25.5 MCHC 30.6 L RDW Std Deviation 51.4 H RDW Coeff of Jose C 16.5 H Plt Count 169 MPV 10.9 H Immature Gran % (Auto) 0.3 Neut % (Auto) 73.3 Lymph % (Auto) 15.0 [place] % (Auto) 7.9 Eos % (Auto) 2.7 Baso % (Auto) 0.8 Immature Gran # (Auto) 0.01 Neut # (Auto) 2.69 Lymph # (Auto) 0.55 L [place] # (Auto) 0.29 Eos # (Auto) 0.10 Baso # (Auto) 0.03 Hypochromasia Present Schistocytes 1+ PT INR APTT PTT Ratio Sodium 142 Potassium 3.6 Chloride 106 Carbon Dioxide 22 Anion Gap 14.0 H BUN 112 H Creatinine 11.70 H* Est Cr Clr Drug Dosing 6.9 Est GFR ( Amer) 4.3 Est GFR (Non-Af Amer) 3.7 BUN/Creatinine Ratio 9.6 L Glucose 231 H Calcium 9.0 Magnesium 2.5 H Total Bilirubin 0.4 AST 11 L ALT 21 Alkaline Phosphatase 90 Troponin I 0.086 H* NT-Pro-B Natriuret Pep 48613 H Total Protein 6.5 Albumin 3.2 L Globulin 3.3 Albumin/Globulin Ratio 1.0 Urine Color Urine Appearance Urine pH Ur Specific [place] Urine Protein Urine Glucose (UA) Urine Ketones Urine Blood Urine Nitrite Urine Bilirubin Urine Urobilinogen Ur Leukocyte Esterase Urine WBC (Auto) Urine RBC (Auto) U Hyaline Cast (Auto) U Epithel Cells (Auto) Urine Bacteria (Auto) Blood Type B Positive Antibody Screen NEGATIVE Crossmatch See Detail 06/05/18 06/05/18 06/05/18 01:30 03:14 03:14 WBC RBC Hgb 7.2 L Hct MCV MCH MCHC RDW Std Deviation RDW Coeff of Jose C Plt Count MPV Immature Gran % (Auto) Neut % (Auto) Lymph % (Auto) [place] % (Auto) Eos % (Auto) Baso % (Auto) Immature Gran # (Auto) Neut # (Auto) Lymph # (Auto) [place] # (Auto) Eos # (Auto) Baso # (Auto) Hypochromasia Schistocytes PT INR APTT PTT Ratio Sodium 145 Potassium 3.5 Chloride 109 H Carbon Dioxide 26 Anion Gap 10.0 BUN 115 H Creatinine 11.50 H* Est Cr Clr Drug Dosing 7.0 Est GFR ( Amer) 4.4 Est GFR (Non-Af Amer) 3.8 BUN/Creatinine Ratio 9.9 L Glucose 187 H Calcium 8.9 Magnesium Total Bilirubin AST ALT Alkaline Phosphatase Troponin I NT-Pro-B Natriuret Pep Total Protein Albumin Globulin Albumin/Globulin Ratio Urine Color Yellow Urine Appearance Clear Urine pH 5.5 Ur Specific [place] 1.015 Urine Protein 3+ H Urine Glucose (UA) 2+ H Urine Ketones Negative Urine Blood Trace H Urine Nitrite Negative Urine Bilirubin Negative Urine Urobilinogen Negative Ur Leukocyte Esterase Negative Urine WBC (Auto) 1-5 Urine RBC (Auto) 0-4 U Hyaline Cast (Auto) 1-5 U Epithel Cells (Auto) 10-20 H Urine Bacteria (Auto) Negative Blood Type Antibody Screen Crossmatch 06/05/18 06/05/18 07:11 09:23 WBC RBC Hgb 7.1 L Hct MCV MCH MCHC RDW Std Deviation RDW Coeff of Jose C Plt Count MPV Immature Gran % (Auto) Neut % (Auto) Lymph % (Auto) [place] % (Auto) Eos % (Auto) Baso % (Auto) Immature Gran # (Auto) Neut # (Auto) Lymph # (Auto) [place] # (Auto) Eos # (Auto) Baso # (Auto) Hypochromasia Schistocytes PT 11.6 INR 1.2 H APTT 28.0 PTT Ratio 1.1 Sodium Potassium Chloride Carbon Dioxide Anion Gap BUN Creatinine Est Cr Clr Drug Dosing Est GFR ( Amer) Est GFR (Non-Af Amer) BUN/Creatinine Ratio Glucose Calcium Magnesium Total Bilirubin AST ALT Alkaline Phosphatase Troponin I NT-Pro-B Natriuret Pep Total Protein Albumin Globulin Albumin/Globulin Ratio Urine Color Urine Appearance Urine pH Ur Specific [place] Urine Protein Urine Glucose (UA) Urine Ketones Urine Blood Urine Nitrite Urine Bilirubin Urine Urobilinogen Ur Leukocyte Esterase Urine WBC (Auto) Urine RBC (Auto) U Hyaline Cast (Auto) U Epithel Cells (Auto) Urine Bacteria (Auto) Blood Type Antibody Screen Crossmatch _ (1) Hypertension Hypertension type: essential hypertension Qualified Code(s): I10 - Essential (primary) hypertension
--- NOTE | 2018-06-05 13:20 | Dialysis Progress Note ---
Date of Service June 05, 2018 Assessment & Plan (1) End-stage renal disease on hemodialysis: -- Qb acceptable via AVF -- Patient tolerating HD well -- Maintain 3 L UF goal -- No adjustment to Rx Subjective Seen and evaluated during hemodialysis treatment. Patient was tolerating HD well. BP acceptable. Qb appropriate. Physical Exam 2 Vital Signs (Past 24 Hours): Last Vital Signs Temp 36.7 C 06/05/18 12:01 Pulse 60 06/05/18 13:00 Resp 18 06/05/18 12:01 BP 160/71 H 06/05/18 13:00 Pulse Ox 91 06/05/18 07:22 Constitutional: well developed and + thin; no acute distress and not ill appearing Eyes: no scleral abnormality and no corneal abnormality ENMT: external ear and nose normal, oropharynx normal Neck: trachea midline, no thyromegaly Respiratory: normal respiratory effort; no respiratory distress Auscultation: lungs clear to auscultation bilaterally and + rales (basilar) Cardiovascular: Heart Sounds: normal S1 and normal S2 Gastrointestinal (Abdomen): Inspection/Auscultation: abdomen normal to inspection Percussion/Palpation: abdomen soft Musculoskeletal: Extremities: extremities normal to inspection; no cyanosis and no clubbing Skin: no rashes, warm and dry
--- NOTE | 2018-06-05 13:37 | Family Medicine Progress Note ---
Date of Service June 05, 2018 Supervising Physician Co-Signing Physician Notes Attending attestation Pt seen and examined in concert with Dr. Dhillon. In agreement with the documented findings as noted in the resident documentation with any exceptions or additions as noted here. Leg cramps bilaterally which is common for patient s/p dialysis, since resolved on evaluation. SOB essentially resolved at rest as well. Patient states that he had 2 hematomas from his last dialysis session and was 'fed up' so he stopped going. He understands the consequences of this decision and opts to return to dialysis. His son-in-law also reports that he is less than adherent to his medication for apparently similar reasons On examination, S1/S2 nl RRR no MCG. CTAB. Abd NT/ND BS+ve. 2 hematomas mildly TTP on LUE c/w aforementioned incident ESRD-HD w/ 5x missed sessions of dialysis - nephrology consultation appreciated Chronic anemia w/ GI bleed - GI consultation appreciated - continue protonix h/o CAD - baseline elevated troponin. Continue B amberly and statin therapy DM II - aspart sliding scale Subjective This PM post dialysis pt reported muscle cramps otherwise was doing well Reports intentionally missing dialysis despite knowing consequences including as he wanted to avoid cramps/other complications associated with dialysis at all cost. However per discussion with pt today, pt does want to live and knows dialysis will be necessary to do so. Review of Systems All systems reviewed & are unremarkable except as noted in HPI & below Physical Exam 2 Vital Signs (Past 24 Hours): Last Vital Signs Temp 36.7 C 06/05/18 12:01 Pulse 60 06/05/18 13:15 Resp 18 06/05/18 12:01 BP 167/80 H 06/05/18 13:15 Pulse Ox 91 06/05/18 07:22 Physical Exam: General: sitting on side of bed, somewhat uncomfortable appearing, not making much eye contact CV: RRR, no murmurs, rubs or gallops Pulm: LLL crackles appreciated, equal breath sounds Abdomen: +BS, abdomen NTTP, non-distended LE: 2+ LE pitting edema; no calf tenderness; L forearm fistula Psych: sad mood and affect, not making much eye contact and slow speech Results & Data Laboratory Results Abnormal lab results 06/04/18 06/04/18 06/04/18 Range/Units 20:50 20:50 22:39 WBC 3.67 L (4.8-10.8) K/uL RBC 2.78 L (4.7-6.1) M/uL Hgb 7.1 L (14.0-18.0) g/dL Hct 23.2 L (42-52) % MCHC 30.6 L (32-36) g/dL RDW Std Deviation 51.4 H (36.4-46.3) fL RDW Coeff of Jose C 16.5 H (11.5-14.5) % MPV 10.9 H (7.4-10.4) fL Lymph # (Auto) 0.55 L (1.2-3.4) K/uL INR (0.9-1.1) Potassium (3.5-5.1) mmol/L Chloride (98-107) mmol/L Anion Gap 14.0 H (3-11) BUN 112 H (7-18) mg/dl Creatinine 11.70 H* (0.6-1.4) mg/dl BUN/Creatinine Ratio 9.6 L (10-20) Glucose 231 H (70-99) mg/dl POC Glucose (70-99) Magnesium 2.5 H (1.8-2.4) mg/dl AST 11 L (15-37) U/L Troponin I 0.086 H* (0-0.045) ng/ml NT-Pro-B Natriuret Pep 57624 H (0-1800) pg/ml Albumin 3.2 L (3.4-5.0) gm/dl Urine Protein (Negative) Urine Glucose (UA) (Negative) Urine Blood (Negative) U Epithel Cells (Auto) (0-5) /lpf Crossmatch See Detail 06/05/18 06/05/18 06/05/18 Range/Units 01:30 03:14 03:14 WBC (4.8-10.8) K/uL RBC (4.7-6.1) M/uL Hgb 7.2 L (14.0-18.0) g/dL Hct (42-52) % MCHC (32-36) g/dL RDW Std Deviation (36.4-46.3) fL RDW Coeff of Jose C (11.5-14.5) % MPV (7.4-10.4) fL Lymph # (Auto) (1.2-3.4) K/uL INR (0.9-1.1) Potassium (3.5-5.1) mmol/L Chloride 109 H (98-107) mmol/L Anion Gap (3-11) BUN 115 H (7-18) mg/dl Creatinine 11.50 H* (0.6-1.4) mg/dl BUN/Creatinine Ratio 9.9 L (10-20) Glucose 187 H (70-99) mg/dl POC Glucose (70-99) Magnesium (1.8-2.4) mg/dl AST (15-37) U/L Troponin I (0-0.045) ng/ml NT-Pro-B Natriuret Pep (0-1800) pg/ml Albumin (3.4-5.0) gm/dl Urine Protein 3+ H (Negative) Urine Glucose (UA) 2+ H (Negative) Urine Blood Trace H (Negative) U Epithel Cells (Auto) 10-20 H (0-5) /lpf Crossmatch 06/05/18 06/05/18 06/05/18 Range/Units 07:11 09:23 15:57 WBC (4.8-10.8) K/uL RBC (4.7-6.1) M/uL Hgb 7.1 L 8.0 L (14.0-18.0) g/dL Hct (42-52) % MCHC (32-36) g/dL RDW Std Deviation (36.4-46.3) fL RDW Coeff of Jose C (11.5-14.5) % MPV (7.4-10.4) fL Lymph # (Auto) (1.2-3.4) K/uL INR 1.2 H (0.9-1.1) Potassium (3.5-5.1) mmol/L Chloride (98-107) mmol/L Anion Gap (3-11) BUN (7-18) mg/dl Creatinine (0.6-1.4) mg/dl BUN/Creatinine Ratio (10-20) Glucose (70-99) mg/dl POC Glucose (70-99) Magnesium (1.8-2.4) mg/dl AST (15-37) U/L Troponin I (0-0.045) ng/ml NT-Pro-B Natriuret Pep (0-1800) pg/ml Albumin (3.4-5.0) gm/dl Urine Protein (Negative) Urine Glucose (UA) (Negative) Urine Blood (Negative) U Epithel Cells (Auto) (0-5) /lpf Crossmatch 06/05/18 06/05/18 06/05/18 Range/Units 15:57 16:27 17:11 WBC (4.8-10.8) K/uL RBC (4.7-6.1) M/uL Hgb (14.0-18.0) g/dL Hct (42-52) % MCHC (32-36) g/dL RDW Std Deviation (36.4-46.3) fL RDW Coeff of Jose C (11.5-14.5) % MPV (7.4-10.4) fL Lymph # (Auto) (1.2-3.4) K/uL INR (0.9-1.1) Potassium 3.1 L (3.5-5.1) mmol/L Chloride (98-107) mmol/L Anion Gap (3-11) BUN 51 H D (7-18) mg/dl Creatinine 6.18 H* D (0.6-1.4) mg/dl BUN/Creatinine Ratio 8.2 L (10-20) Glucose 127 H (70-99) mg/dl POC Glucose 139 H (70-99) Magnesium (1.8-2.4) mg/dl AST (15-37) U/L Troponin I 0.256 H* (0-0.045) ng/ml NT-Pro-B Natriuret Pep 35615 H (0-1800) pg/ml Albumin (3.4-5.0) gm/dl Urine Protein (Negative) Urine Glucose (UA) (Negative) Urine Blood (Negative) U Epithel Cells (Auto) (0-5) /lpf Crossmatch Medications Administered Current Inpatient Medications Acetaminophen (Tylenol) 650 mg PO Q4H PRN PRN Reason: Pain or Fever Stop: 07/05/18 01:04 Last Admin: 06/05/18 18:38 Dose: 650 mg Al Hydrox/Mg Hydrox/Simethicone (Maalox) 15 ml PO Q4H PRN PRN Reason: Dyspepsia Stop: 07/05/18 01:04 Amlodipine Besylate (Norvasc) 10 mg PO HS [facility] Stop: 07/05/18 20:59 Calcium Acetate (Phoslo) 1,334 mg PO TIDM [facility] Stop: 07/05/18 07:59 Last Admin: 06/05/18 17:13 Dose: 1,334 mg Dextrose (Dextrose 50%) 25 - 50 ml IV UD PRN; Protocol PRN Reason: Hypoglycemia Protocol Stop: 07/05/18 03:45 Docusate Sodium (Colace) 100 mg PO QAM [facility] Stop: 07/05/18 08:59 Last Admin: 06/05/18 07:29 Dose: 100 mg Furosemide (Lasix) 80 mg PO BID [facility] Stop: 07/05/18 08:59 Last Admin: 06/05/18 07:30 Dose: 80 mg Gabapentin (Neurontin) 100 mg PO HS [facility] Stop: 07/05/18 20:59 Last Admin: 06/05/18 07:31 Dose: 100 mg Glucagon (Glucagen) 1 mg SQ UD PRN; Protocol PRN Reason: Hypoglycemia Protocol Stop: 07/05/18 03:45 Glucose (Glucose 40%) 15 - 30 gm PO UD PRN; Protocol PRN Reason: Hypoglycemia Protocol Stop: 07/05/18 03:45 Glucose (Dex4 Glucose) 4 - 8 tabs PO UD PRN; Protocol PRN Reason: Hypoglycemia Protocol Stop: 07/05/18 03:45 Hydralazine HCl (Apresoline) 10 mg PO TID [facility] Stop: 07/05/18 08:59 Last Admin: 06/05/18 14:08 Dose: 10 mg Sodium Chloride (Nss 250ml) 250 mls @ 15 mls/hr IV .[id number] PRN PRN Reason: For Transfusion Stop: 07/05/18 08:54 Insulin Aspart (Novolog Flexpen) 0 units SC ACHS [facility] Stop: 07/05/18 07:29 Last Admin: 06/05/18 17:00 Dose: 2 units Labetalol HCl (Normodyne) 400 mg PO BID [facility] Stop: 07/05/18 08:59 Last Admin: 06/05/18 07:28 Dose: 400 mg Levothyroxine Sodium (Synthroid) 200 mcg PO DAILYBB [facility] Stop: 07/05/18 06:29 Last Admin: 06/05/18 06:08 Dose: 200 mcg Lisinopril (Zestril) 40 mg PO DAILY@1200 [facility] Stop: 07/05/18 11:59 Last Admin: 06/05/18 07:31 Dose: 40 mg Magnesium Hydroxide (Milk Of Magnesia) 30 ml PO Q12H PRN PRN Reason: Constipation Stop: 07/05/18 01:04 Miscellaneous (Carbohydrates For Hypoglycemia) 15 - 30 gm PO UD PRN PRN Reason: Hypoglycemia Treatment Stop: 07/05/18 03:45 Morphine Sulfate (Morphine Sulfate) 2 mg IV Q30M PRN PRN Reason: Chest Pain Stop: 06/19/18 01:04 Nitroglycerin (Nitrostat) 0.4 mg SL UD PRN PRN Reason: Chest Pain Stop: 07/05/18 01:04 Ondansetron HCl (Zofran) 4 mg IV Q6H PRN PRN Reason: Nausea Stop: 07/05/18 01:04 Last Admin: 06/05/18 15:27 Dose: 4 mg Pantoprazole Sodium (Protonix) 40 mg PO BID [facility] Stop: 07/05/18 01:09 Last Admin: 06/05/18 07:27 Dose: 40 mg Polyethylene Glycol (Miralax Powder Packet) 17 gm PO DAILY PRN PRN Reason: Constipation Stop: 07/05/18 01:04 Rosuvastatin Calcium (Crestor) 20 mg PO QPM [facility] Stop: 07/05/18 20:59 Sucralfate (Carafate Tab) 1 gm PO ACHS [facility] Stop: 07/05/18 07:29 Last Admin: 06/05/18 17:14 Dose: 1 gm Tamsulosin HCl (Flomax) 0.4 mg PO QAM [facility] Stop: 07/05/18 08:59 Last Admin: 06/05/18 07:30 Dose: 0.4 mg Vitamin B Complex/Folic Acid (Nephrocaps) 1 cap PO DAILY@1200 [facility] Stop: 07/05/18 11:59 Last Admin: 06/05/18 07:31 Dose: 1 cap Resident Activity Tracking Resident Involvement: Resident Care Provided Care Provided: Adult Hospital Medicine
[2018-06-05] MEDS: ACETAMINOPHEN 325 MG TAB PO PRN ×2 (14:09→18:38)
[2018-06-05] MEDS: ONDANSETRON INJ 2 MG/ML 2 ML VIAL IV PRN ×2 (15:27→23:48)
[2018-06-05 17:09] LABS: Troponin I 0.256 ng/ml (0-0.045)
[2018-06-05 17:59] LABS: BUN Creatinine Ratio 8.2 (10-20); Creatinine Clr Calc Pharmacy 13.1 ml/min; Est GFR (African American) 9.3; Potassium 3.1 mmol/L (3.5-5.1)
[2018-06-05] MEDS ORDERED: POTASSIUM CHLORIDE 20 MEQ TABCR PO STA (18:20)
--- NOTE | 2018-06-05 18:30 | Consultation Report ---
DATE OF CONSULTATION: 06/05/2018 REASON FOR EVALUATION: Anemia and heme positive stool. Prior history of gastric ulcer. HISTORY OF PRESENT ILLNESS: The patient is a 78-year-old with end-stage renal disease on chronic hemodialysis. The patient presented to the hospital with shortness of breath, having missed 5 hemodialysis sessions in a row. His excuses that he had a hematoma at the fistula site and did not want to contribute to it anymore and sort of got frustrated and just stopped doing it for a while. He was hospitalized in April with GI bleeding and on 04/21/2018 had an EGD, which showed a gastric ulcer that was treated with epinephrine injection and 2 Hemoclips. There was an adherent clot at the time. He does also have some small bowel telangiectasias that could be a poor potential source of blood loss and has a small bowel enteroscopy scheduled at [facility] on 06/28/2018. The patient has been maintained on proton pump inhibitor as an outpatient. He was taking oral iron, which is making his stool black and it is making difficult to determine whether he has had any ongoing bleeding. PAST MEDICAL HISTORY: Gastric ulcer, hemodialysis for end-stage renal disease, coronary artery disease, diabetes, hypothyroidism, hypertension, congestive heart failure, and benign prostatic hypertrophy. MEDICATIONS: Per list. ALLERGIES: METFORMIN. FAMILY HISTORY: Positive for diabetes and coronary artery disease. SOCIAL HISTORY: The patient lives with his . 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 He does not drink, but he is a former smoker. REVIEW OF SYSTEMS: Positive for decreased hearing. PHYSICAL EXAMINATION: GENERAL: The patient appears in no acute distress. VITAL SIGNS: Blood pressure is 170/90, pulse 100, afebrile. Respirations 20. Abdomen is distended but nontender. LUNGS: Clear. HEART: Showed normal S1 and S2. Regular rate and rhythm. IMPRESSION: The patient has chronic anemia with a chronic heme positive stool, probably from small bowel telangiectasias, which will be investigated endoscopically with a small bowel enteroscopy at [facility] later this month, did have a gastric ulcer with bleeding in April and I plan on scheduling an esophagogastroduodenoscopy tomorrow to reassess the status of this ulcer.
[2018-06-05] MEDS: ROSUVASTATIN CALCIUM 20 MG TAB PO SCH (20:13)
[2018-06-05] MEDS: AMLODIPINE BESYLATE 5 MG TAB PO SCH (20:21)
[2018-06-05 23:14] LABS: Magnesium 2.1 mg/dl (1.8-2.4); Phosphorus 3.4 mg/dl (2.5-4.9)
[2018-06-06] MEDS: INSULIN ASPART 100 UNITS/ML 3 ML PEN SC SCH ×4 (06:08→20:59)
[2018-06-06] MEDS: LEVOTHYROXINE SODIUM 200 MCG TABLET PO SCH (06:16)
[2018-06-06 06:35] LABS: Basophils # (auto) 0.03 K/uL (0-0.2); Basophils % (auto) 0.8 %; Eosinophils # (auto) 0.11 K/uL (0-0.5); Hematocrit (blood only) 25.5 % (42-52); Hemoglobin 7.8 g/dL (14.0-18.0); Lymphocytes # (auto) 0.73 K/uL (1.2-3.4); Lymphocytes % (auto) 19.6 %; Mean Corpuscular Hgb Conc 30.6 g/dL (32-36); Mean Corpuscular Volume 82.5 fL (80-100); Mean Platelet Volume 10.7 fL (7.4-10.4); Monocytes # (auto) 0.51 K/uL (0.11-0.59); Monocytes % (auto) 13.7 %; Neutrophils # (auto) 2.34 K/uL (1.4-6.5); Neutrophils % (auto) 62.9 %; Platelet Count 146 K/uL (130-400); RDW Coefficient of Variation 15.8 % (11.5-14.5); RDW Standard Deviation 48.2 fL (36.4-46.3); Red Blood Count 3.09 M/uL (4.7-6.1); White Blood Count 3.72 K/uL (4.8-10.8)
[2018-06-06 06:52] LABS: INR 1.2 (0.9-1.1); Prothrombin Time 12.2 Seconds (9.0-12.0)
[2018-06-06 07:02] LABS: Anisocytosis Present; Basophilic Stippling 1+; Hypochromasia Present
[2018-06-06 07:25] LABS: BUN Creatinine Ratio 8.2 (10-20); Calcium 8.8 mg/dl (8.5-10.1); Creatinine Clr Calc Pharmacy 10.5 ml/min; Est GFR (African American) 7.3; Est GFR (Non-African American) 6.3; Potassium 3.7 mmol/L (3.5-5.1); Troponin I 0.257 ng/ml (0-0.045)
[2018-06-06] MEDS: CALCIUM ACETATE 667 MG CAP PO SCH ×3 (07:30→16:38)
[2018-06-06] MEDS: DOCUSATE SODIUM 100 MG CAP PO SCH (07:31)
[2018-06-06] MEDS: FUROSEMIDE 80 MG TAB PO SCH ×2 (07:32→20:26)
[2018-06-06] MEDS: LABETALOL HCL 200 MG TAB PO SCH ×2 (07:32→20:27)
[2018-06-06] MEDS: HydrALAZINE 10 MG TAB PO SCH ×3 (07:32→20:24)
[2018-06-06] MEDS: TAMSULOSIN HCL 0.4 MG CAP PO SCH (07:33)
[2018-06-06] MEDS: PANTOprazole 40 MG TAB PO SCH ×2 (07:34→20:26)
[2018-06-06] MEDS: SUCRALFATE 1 GM TAB PO SCH ×4 (07:34→20:25)
[2018-06-06] MEDS ORDERED: SODIUM CHLORIDE 0.9% 1000ML 1,000 ML IV PRN ×2 (09:15→17:03)
--- NOTE | 2018-06-06 09:18 | Nephrology Progress Note ---
Date of Service June 06, 2018 Assessment & Plan (1) End-stage renal disease on hemodialysis: -- Orders for HD have been entered this morning. Plan for a 2 hour treatment for clearance and additional UF (1 L) -- 1 u PRBC ordered for transfusion with dialysis -- Will plan for a 3 hour dialysis treatment tomorrow as well to maintain MWF schedule (2) Gastric ulcer: -- Patient scheduled for EGD this afternoon (3) Anemia: -- Will provide an additional 1 u PRBC with HD today (4) Shortness of breath: -- Suspect this is related to PVC and anemia (5) Hypertension: -- Continue current antihypertensives -- Expect some improvement with UF during HD today Subjective Augie was seen and evaluated in his hospital room this morning. He is resting comfortably in bed. Per nursing report, patient was confused overnight. Augie feels dyspneic this morning at rest. Activity tolerance is reduced. He denies chest pain or palpitations. He denies lightheadedness or dizziness. Augie denies abdominal pain. He reports one stool with melena this morning. He denies any bright red blood. Dialysis was complicated by back pain yesterday. Augie was not able to tolerate more than 1.5 L fluid removal due to cramping. Review of Systems All systems reviewed & are unremarkable except as noted in HPI & below Physical Exam 2 Vital Signs (Past 24 Hours): Last Vital Signs Temp 36.6 C 06/06/18 07:54 Pulse 58 L 06/06/18 09:04 Resp 19 06/06/18 07:54 BP 174/70 H 06/06/18 07:54 Pulse Ox 94 06/06/18 07:54 Constitutional: well developed and + thin; no acute distress and not ill appearing Eyes: no scleral abnormality and no corneal abnormality ENMT: external ear and nose normal, oropharynx normal Neck: trachea midline, no thyromegaly Respiratory: normal respiratory effort; no respiratory distress Auscultation: lungs clear to auscultation bilaterally and + rales (basilar) Cardiovascular: Heart Sounds: normal S1 and normal S2 Gastrointestinal (Abdomen): Inspection/Auscultation: abdomen normal to inspection Percussion/Palpation: abdomen soft Musculoskeletal: Extremities: extremities normal to inspection; no cyanosis and no clubbing Skin: no rashes, warm and dry _ (1) Gastric ulcer Gastric ulcer chronicity: acute Gastric ulcer complication status: with hemorrhage Qualified Code(s): K25.0 - Acute gastric ulcer with hemorrhage (2) Hypertension Hypertension type: essential hypertension Qualified Code(s): I10 - Essential (primary) hypertension
[2018-06-06] MEDS: LISINOPRIL 40 MG TAB PO SCH (12:34)
[2018-06-06] MEDS: NEPHROCAPS PO SCH (12:34)
--- NOTE | 2018-06-06 14:56 | Anesthesiology Consultation ---
Date of Service June 06, 2018 Assessment & Plan Chart Review Chart Review: Acceptable Risk for Surgery and Patient NOT seen in Pre Admission Testing Consults Requested none Pt completed hemodialysis today and yesterday. Tolerated sedation for EGD back in April without complications. ASA ASA3 Proposed Anesthesia Anesthesia Type: MAC Risk / Benefits Reviewed With: PT / POA / Parent / Guardian, Accepts Plan and Informed Consent Obtained NPO Date Last Intake of Fluids: 06/05/18 Time Last Intake of Fluids: 18:00 Date Last Intake of Solids: 06/05/18 Time Last Intake of Solids: 18:00 History Surgery Operation Date: 06/06/18 15:00 Proposed Procedures p Esophagogastroduodenoscopy Dr Christopher White Height/Weight Height: 6 ft 1 in Weight: 102.9 kg Allergies Allergy/AdvReac Type Severity Reaction Status Date / Time metformin AdvReac Intermediate CONFUSION Verified 06/04/18 21:47 Medications Home Medications Medication Instructions Recorded Confirmed Last Taken B complex with C#20-folic acid 1 mg PO DAILY@1200 04/19/18 06/04/18 06/04/18 amlodipine 10 mg PO HS 04/19/18 06/04/18 06/03/18 calcium acetate 1,334 mg PO TIDM 04/19/18 06/04/18 06/04/18 WITH LUNCH docusate sodium 100 mg PO QAM 04/19/18 06/04/18 06/04/18 furosemide 80 mg PO BID 04/19/18 06/04/18 04/18/18 gabapentin 100 mg PO HS 04/19/18 06/04/18 06/03/18 labetalol 400 mg PO BID 04/19/18 06/04/18 04/18/18 levothyroxine 50 mcg PO 5XWK 04/19/18 06/04/18 06/04/18 levothyroxine 200 mcg PO QAM 04/19/18 06/04/18 06/04/18 lisinopril 40 mg PO DAILY@1200 04/19/18 06/04/18 06/04/18 rosuvastatin 20 mg PO QPM 04/19/18 06/04/18 04/18/18 tamsulosin 0.4 mg PO QAM 04/19/18 06/04/18 06/04/18 hydralazine 10 mg PO TID #90 tab 04/23/18 06/04/18 06/04/18 LUNCH TIME pantoprazole 40 mg PO BID #60 tab 04/23/18 06/04/18 Unknown sucralfate 1 g PO ACHS #120 tab 04/23/18 06/04/18 Unknown insulin detemir U-100 [Levemir 45 units SUBCUT QPM 06/04/18 06/04/18 Unknown U-100 Insulin] insulin detemir U-100 [Levemir 50 units SUBCUT QAM 06/04/18 06/04/18 06/04/18 U-100 Insulin] nut.tx.gluc intol,lf,soy-fiber 1 ea PO WM 06/04/18 06/04/18 Unknown [Boost Glucose Control] Active Medications Generic Name Dose Route Start Last Admin Trade Name Freq PRN Reason Stop Dose Admin Acetaminophen 650 mg 06/05/18 01:05 06/05/18 18:38 Tylenol PO 07/05/18 01:04 650 mg Q4H PRN Administration Pain or Fever Al Hydrox/Mg Hydrox/Simethicone 15 ml 06/05/18 01:05 06/06/18 01:22 Maalox PO 07/05/18 01:04 15 ml Q4H PRN Administration Dyspepsia Amlodipine Besylate 10 mg 06/05/18 21:00 06/05/18 20:21 Norvasc PO 07/05/18 20:59 10 mg HS SHANTA Administration Calcium Acetate 1,334 mg 06/05/18 08:00 06/06/18 12:34 Phoslo PO 07/05/18 07:59 1,334 mg TIDM SHANTA Administration Docusate Sodium 100 mg 06/05/18 09:00 06/06/18 07:31 Colace PO 07/05/18 08:59 100 mg QAM SHANTA Administration Furosemide 80 mg 06/05/18 09:00 06/06/18 07:32 Lasix PO 07/05/18 08:59 80 mg BID SHANTA Administration Gabapentin 100 mg 06/05/18 21:00 06/05/18 07:31 Neurontin PO 07/05/18 20:59 100 mg HS SHANTA Administration Hydralazine HCl 10 mg 06/05/18 09:00 06/06/18 07:32 Apresoline PO 07/05/18 08:59 10 mg TID SHANTA Administration Insulin Aspart 0 units 06/05/18 07:30 06/06/18 12:22 Novolog Flexpen SC 07/05/18 07:29 Not Given ACHS SHANTA Labetalol HCl 400 mg 06/05/18 09:00 06/06/18 07:32 Normodyne PO 07/05/18 08:59 400 mg BID SHANTA Administration Levothyroxine Sodium 200 mcg 06/05/18 06:30 06/06/18 06:16 Synthroid PO 07/05/18 06:29 200 mcg DAILYBB SHANTA Administration Lisinopril 40 mg 06/05/18 12:00 06/06/18 12:34 Zestril PO 07/05/18 11:59 40 mg DAILY@1200 SHANTA Administration Ondansetron HCl 4 mg 06/05/18 01:05 06/05/18 23:48 Zofran IV 07/05/18 01:04 4 mg Q6H PRN Administration Nausea Pantoprazole Sodium 40 mg 06/05/18 01:10 06/06/18 07:34 Protonix PO 07/05/18 01:09 40 mg BID SHANTA Administration Rosuvastatin Calcium 20 mg 06/05/18 21:00 06/05/18 20:13 Crestor PO 07/05/18 20:59 20 mg QPM SHANTA Administration Sucralfate 1 gm 06/05/18 07:30 06/06/18 12:34 Carafate Tab PO 07/05/18 07:29 1 gm ACHS SHANTA Administration Tamsulosin HCl 0.4 mg 06/05/18 09:00 06/06/18 07:33 Flomax PO 07/05/18 08:59 0.4 mg QAM SHANTA Administration Vitamin B Complex/Folic Acid 1 cap 06/05/18 12:00 06/06/18 12:34 Nephrocaps PO 07/05/18 11:59 1 cap DAILY@1200 SHANTA Administration Past Medical History Medical History BPH (benign prostatic hyperplasia) Hypothyroidism Diabetes (Chronic) Hypertensive urgency (Acute) Epistaxis (Chronic) Heart disease (Chronic) Secondary hyperparathyroidism of renal origin Anemia (Acute) End-stage renal disease on hemodialysis COPD (chronic obstructive pulmonary disease) AVF (arteriovenous fistula) Past Family History Family History Unknown Heart attack Diabetes Past Surgical History Surgical History No pertinent past surgical history Past Anesthesia History No Hx of Anesthesia Complications History of PONV No Motion Sickness Screening History of Motion Sickness: No Social History Smoking Status: Former smoker tobacco type: cigarettes Do You Dip or Chew Tobacco: No Hx Alcohol Use: No Hx Substance Use: No substance use type: does not use Exercise / Class Metabolic Activity III < 4 Walking/Shop/Light housework Physical Exam Vital Signs Last Vital Signs Temp 36.5 C 06/06/18 14:45 Pulse 60 06/06/18 14:29 Resp 16 06/06/18 14:29 BP 169/77 H 06/06/18 14:45 Pulse Ox 93 06/06/18 14:29 Constitutional not obese ENMT Mouth: + edentulous; no TMJ abnormality and oral opening not small Thyromental Distance: > or= 3.5 Finger Breadths Mallampati Class: III Neck normal visual inspection; neck extension not limited Respiratory normal respiratory effort Auscultation: lungs clear to auscultation bilaterally Cardiovascular Rate/Rhythm: regular rate and regular rhythm Heart Sounds: + murmur Vessels: + carotid bruit Psychiatric A+Ox3, euthymic affect Orientation: alert and oriented x 3 Testing Electrocardiogram Date: 06/04/18 Findings: + NSR @ (64) Sinus rhythm with 1st degree A-V block, Right bundle branch block, T wave abnormality, consider inferolateral ischemia, Abnormal ECG, When compared with ECG of 21-APR-2018 06:31, No significant change was found Chest X-Ray Date: 06/04/18 IMPRESSION: 1. Cardiomegaly without overt pulmonary edema. 2. Bibasilar opacities suggest atelectasis with pneumonitis considered less likely. Laboratory Results 06/06/18 06:11 06/06/18 06:11 Blood Type B Positive 06/04/18 22:39 Antibody Screen NEGATIVE 06/04/18 22:39 PT 12.2 Seconds (9.0-12.0) H 06/06/18 06:11 INR 1.2 (0.9-1.1) H 06/06/18 06:11 APTT 28.0 Seconds (21.0-31.0) 06/05/18 09:23 Urine Color Yellow 06/05/18 01:30 Urine Appearance Clear (Clear) 06/05/18 01:30 Urine pH 5.5 (4.5-7.5) 06/05/18 01:30 Ur Specific [place] 1.015 (1.000-1.030) 06/05/18 01:30 Urine Protein 3+ (Negative) H 06/05/18 01:30 Urine Glucose (UA) 2+ (Negative) H 06/05/18 01:30 Urine Ketones Negative (Negative) 06/05/18 01:30 Urine Nitrite Negative (Negative) 06/05/18 01:30 Ur Leukocyte Esterase Negative (Negative) 06/05/18 01:30 Urine WBC (Auto) 1-5 /hpf (0-5) 06/05/18 01:30 Urine RBC (Auto) 0-4 /hpf (0-4) 06/05/18 01:30 U Hyaline Cast (Auto) 1-5 /lpf (0-5) 06/05/18 01:30 U Epithel Cells (Auto) 10-20 /lpf (0-5) H 06/05/18 01:30 Urine Bacteria (Auto) Negative (Negative) 06/05/18 01:30 06/06/18 06/06/18 11:32 05:58 POC Glucose 127 H 137 H
--- NOTE | 2018-06-06 15:13 | History & Physical Report ---
Date of Service June 06, 2018 History of Present Illness Chief Complaint: Anemia, heme positive stool Primary Care Provider: Mahsa Wang For EGD Allergies Allergy/AdvReac Type Severity Reaction Status Date / Time metformin AdvReac Intermediate CONFUSION Verified 06/04/18 21:47 Home Medications Home Medications Medication Instructions Recorded Confirmed Type B complex with C#20-folic acid 1 mg PO DAILY@1200 04/19/18 06/04/18 History amlodipine 10 mg PO HS 04/19/18 06/04/18 History calcium acetate 1,334 mg PO TIDM 04/19/18 06/04/18 History docusate sodium 100 mg PO QAM 04/19/18 06/04/18 History furosemide 80 mg PO BID 04/19/18 06/04/18 History gabapentin 100 mg PO HS 04/19/18 06/04/18 History labetalol 400 mg PO BID 04/19/18 06/04/18 History levothyroxine 50 mcg PO 5XWK 04/19/18 06/04/18 History levothyroxine 200 mcg PO QAM 04/19/18 06/04/18 History lisinopril 40 mg PO DAILY@1200 04/19/18 06/04/18 History rosuvastatin 20 mg PO QPM 04/19/18 06/04/18 History tamsulosin 0.4 mg PO QAM 04/19/18 06/04/18 History hydralazine 10 mg PO TID #90 tab 04/23/18 06/04/18 Rx pantoprazole 40 mg PO BID #60 tab 04/23/18 06/04/18 Rx sucralfate 1 g PO ACHS #120 tab 04/23/18 06/04/18 Rx insulin detemir U-100 [Levemir 45 units SUBCUT QPM 06/04/18 06/04/18 History U-100 Insulin] insulin detemir U-100 [Levemir 50 units SUBCUT QAM 06/04/18 06/04/18 History U-100 Insulin] nut.tx.gluc intol,lf,soy-fiber 1 ea PO WM 06/04/18 06/04/18 History [Boost Glucose Control] Past Med/Surg History Medical History BPH (benign prostatic hyperplasia) Hypothyroidism Diabetes (Chronic) Hypertensive urgency (Acute) Epistaxis (Chronic) Heart disease (Chronic) Secondary hyperparathyroidism of renal origin Anemia (Acute) End-stage renal disease on hemodialysis COPD (chronic obstructive pulmonary disease) AVF (arteriovenous fistula) Surgical History No pertinent past surgical history Family History Unknown Heart attack Diabetes Social History marital status: Current Living Situation: Spouse Other Information That Helps Us Care for You: No Feels Safe at Home: Yes Safety Concerns: Feels Safe At This Time Smoking Status: Former smoker Tobacco Type: cigarettes Do You Dip or Chew Tobacco: No Hx Alcohol Use: No Hx Substance Use: No Beliefs That Will Affect Care: None Communication Ability: Effective Physical Exam 2 Vital Signs (Past 24 Hours): Last Vital Signs Temp 36.5 C 06/06/18 14:45 Pulse 60 06/06/18 14:29 Resp 16 06/06/18 14:29 BP 169/77 H 06/06/18 14:45 Pulse Ox 93 06/06/18 14:29 Constitutional: + ill appearing Respiratory: normal respiratory effort Cardiovascular: Rate/Rhythm: regular rate and regular rhythm Gastrointestinal (Abdomen): Percussion/Palpation: abdomen soft scar
[2018-06-06] MEDS ORDERED: SODIUM CHLORIDE 0.9% 1000ML 1,000 ML IV SCH (15:15)
--- NOTE | 2018-06-06 15:48 | GI REPORT ---
Patient Name: Darnell Mcintyre Procedure Date: 06/06/2018 3:28 PM Date of : 1940 Admit Type: Inpatient Age: 78 Gender: Male Attending MD: Mando White MD Procedure: Upper GI endoscopy Providers: Mando White MD Referring MD: Referred Self, Grabiel Blankenship Indications: Iron deficiency anemia secondary to chronic blood loss, Heme positive stool, Personal history of peptic ulcer disease Medicines: Propofol total dose 150 mg IV, Lidocaine 80 mg IV Complications: No immediate complications. Estimated Blood Loss: Estimated blood loss: none. Procedure: Pre-Anesthesia Assessment: - Prior to the procedure, a History and Physical was performed, and patient medications, allergies and sensitivities were reviewed. The patient's tolerance of previous anesthesia was reviewed. - The risks and benefits of the procedure and the sedation options and risks were discussed with the patient. All questions were answered and informed consent was obtained. After obtaining informed consent, the endoscope was passed under direct vision. Throughout the procedure, the patient's blood pressure, pulse, and oxygen saturations were monitored continuously. The Scope was introduced through the mouth, and advanced to the second part of duodenum. The upper GI endoscopy was somewhat difficult due to abnormal anatomy. The patient tolerated the procedure well. Findings: The Z-line was regular and was found 45 cm from the incisors. 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 Multiple 4 mm pedunculated and sessile polyps with no bleeding and no stigmata of recent bleeding were found in the gastric body. Localized moderately congested mucosa was found in the prepyloric region of the stomach. A large non-bleeding diverticulum was found in the second portion of the duodenum. The gastric ulcer is healed. Impression: - Z-line regular, 45 cm from the incisors. 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 - Multiple gastric polyps. - Congestive gastropathy. - Non-bleeding duodenal diverticulum. - No specimens collected. Recommendation: - Return patient to hospital cheema for ongoing care. Mando White M.D. Mando White MD 06/06/2018 3:47:45 PM This report has been signed electronically. Note Initiated On: 06/06/2018 3:28 PM Number of Addenda: 0 I attest to the content of the Intraoperative Record and orders documented therein, exceptions below {[id number]}
--- NOTE | 2018-06-06 16:11 | Anesthesiology Progress Note ---
Date of Service June 06, 2018 Anesthesia Post Procedure Vital Signs Vital Signs: Temp Pulse Pulse Pulse Resp BP BP 06/06/18 14:45 36.5 C 169/77 H 06/06/18 14:29 36.1 C L 60 16 170/67 H 06/06/18 13:30 58 L 150/63 H 06/06/18 13:15 59 L 169/80 H 06/06/18 13:00 57 L 175/79 H 06/06/18 12:52 36.6 C 56 L 18 163/79 H 06/06/18 12:45 56 L 163/79 H 06/06/18 12:30 57 L 168/81 H 06/06/18 12:15 57 L 151/73 H 06/06/18 12:04 36.5 C 55 L 18 151/72 H 06/06/18 12:00 55 L 151/72 H 06/06/18 11:52 36.8 C 57 L 20 173/73 H 06/06/18 11:48 56 L 161/73 H 06/06/18 11:38 36.5 C 60 06/06/18 09:04 58 L 06/06/18 07:54 36.6 C 60 19 174/70 H 06/06/18 04:41 36.4 C L 91 H 17 175/74 H 06/06/18 01:02 36.7 C 90 17 180/79 H 06/05/18 19:05 36.5 C 62 20 184/77 H Pulse Ox 06/06/18 14:45 06/06/18 14:29 93 06/06/18 13:30 06/06/18 13:15 06/06/18 13:00 06/06/18 12:52 06/06/18 12:45 06/06/18 12:30 06/06/18 12:15 06/06/18 12:04 95 06/06/18 12:00 06/06/18 11:52 93 06/06/18 11:48 06/06/18 11:38 06/06/18 09:04 06/06/18 07:54 94 06/06/18 04:41 96 06/06/18 01:02 95 06/05/18 19:05 91 Pain Intensity Generalized: Pain Intensity: 5 Notes Mental Status: alert / awake / arousable and participated in evaluation Nausea / Vomiting: adequately controlled Pain: adequately controlled Airway Patency, RR, SpO2: stable & adequate BP & HR: stable & adequate Hydration State: stable & adequate Anesthetic Complications: no major complications apparent and Pt Satisfied with anesthetic care
--- NOTE | 2018-06-06 16:36 | Progress Note ---
DATE: 06/06/2018 SUBJECTIVE: The patient underwent an EGD today following his dialysis for anemia, heme-positive stool, and prior history of gastric ulcer in 04/2018. In general, the patient had multiple findings but no source of blood loss. He had gastric inlet patches at the cricopharyngeus. GE junction was normal at 45 cm. In the stomach body, there were multiple nonbleeding, benign appearing gastric polyps. On the gastric antrum, the antrum was edematous, but there was no sign of the previous ulcer, which has completely healed in the duodenum. The bulb is normal, and in second portion, there was a large duodenal diverticulum again which showed no signs of bleeding. IMPRESSION: Patient has no bleeding site on his upper endoscopy, and his previous gastric ulcer from April appears to have healed completely. He does have a push enteroscopy scheduled for the small bowel AVMs in [place] on 06/28/2016 and I would recommend that he can keep that appointment. I have no further suggestions at this time. Dr. Ari Epstein from [place] will be covering over the weekend.
--- NOTE | 2018-06-06 17:08 | Family Medicine Progress Note ---
Date of Service June 06, 2018 Assessment & Plan (1) Shortness of breath: Patient is a 78 year old male with a past medical history of ESRD on HD, COPD, CAD, Chronic blood loss anemia, DM II, Diastolic CHF, Hypothyroidism. The patient presents with SOB after missing his last 5 consecutive dialysis sessions. 1) SOB - 2/2 ESRD from Dialysis in addition to underlying CHF - CXR: 1. Cardiomegaly without overt pulmonary edema. 2. Bibasilar opacities suggest atelectasis with pneumonitis considered less likely. - Nephrology Consult --> Hemodialysis performed on 06/05/2018 and 06/06/2018 - Anemia --> Concern over chronic blood loss anemia with previous admission of ulcer - GI Consultation --> EGD with GI scheduled for this afternoon - EGD 04/19 - Gallagher's esophagus, Angiodysplasia, gastric polyp c/w an adenoma 2) ESRD on Hemodialysis - Creatinine of 11.17 on admission --> Currently improved to 7.53 - Continue with HD as needed with daily lab monitoring 3) Chronic Blood Loss Anemia - Initial hemoglobin of 7.1 on admission --> Improved to 7.8 after administration of 1 unit of PRBC - GI Consultation - Thus far 2 units of PRBC transfused (1 unit with each session of dialysis) - EGD 06/06 Impressions as per GI: - 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 - Multiple gastric polyps. - Congestive gastropathy. - Non-bleeding duodenal diverticulum. - No specimens collected. - No bleeding visualized on Endoscopy above - Scheduled for push enteroscopy for the small bowel AVMs in [place] on 2016 - Sucralfate 1mg PO ACHS - Protonix 40mg PO BID 4) Hypertension - Baseline HTN in addition to volume overload from missing dialysis - Continue home Amlodipine 10mg PO HS - Continue home Hydralazine 10mg PO TID - Continue home Labetalol 400mg PO BID - Continue home Lisinopril 40mg PO daily - Dialysis as above 5) Diastolic CHF - Furosemide 80mg PO BID 6) Diabetes Mellitus - Insulin Detemir 50 units SQ QAM and 45 units SQ QPM - ISS with BSG checks AC/HS 7) CAD - Troponin has stabilized 0.086 --> 0.256 --> 0.239 --> 0.257 - Appears to have an elevated trop at baseline 8) Hyperlipidemia - Continue home Rosuvastatin 20mg PO qPM 9) BPH - Continue home Tamsulosin 10) Hypothyroidism - Continue home Synthroid DVT Prophylaxis - SCDs Code Status - Full Resuscitation (2) End stage renal disease: (3) Anemia: (4) CAD (coronary artery disease): (5) BPH (benign prostatic hyperplasia): (6) Diabetes: (7) Hypertension: (8) Asthma: (9) COPD (chronic obstructive pulmonary disease): (10) Hypothyroidism: Supervising Physician Co-Signing Physician Notes Attending Note I saw the patient indepedent of the resident and confirmed mora portions of the history and exam. I agree with the impression and plan as documented above. I also discussed the case with nephrology. Upon my exam, the patient is just returning to the room S/P EGD. He has no complanits. CV RRR. Lungs are clear in all arreaga. Impression and Plan ESRD-HD w/ 5x missed sessions of dialysis - discussed with nephrology Chronic anemia w/ GI bleed - EGD today continiue PPI one unit PRBCs today during HD HgB in AM h/o CAD - Continue B amberly and statin therapy Diabetes - aspart sliding scale resume diabetic diet this evening Subjective Patient is resting comfortably in bed this morning in no acute distress. He states that he feels worse since his dialysis yesterday and is very fatigued. He continues to be short of breath, although that has been constant since he missed his last few rounds of dialysis. He denies any chest pain, fevers, chills , sweats, or abdominal pain. Physical Exam 2 Vital Signs (Past 24 Hours): Last Vital Signs Temp 36.3 C L 06/06/18 16:38 Pulse 59 L 06/06/18 16:38 Resp 20 06/06/18 16:38 BP 204/79 H 06/06/18 16:38 Pulse Ox 97 06/06/18 16:38 GENERAL: Awake, al ert, in no distres s HENT: Normocepha lic, atraumatic. E YES: Normal conjun ctiva. Sclera non- icteric. NECK: Sup ple. No nuchal rig idity. RESPIRATOR Y: Decreased breat h sounds throughou t all lung arreaga, No increased work of breathing CARD IAC: Regular rate, normal rhythm. Sy stolic murmur. Pul ses equal. ABDOMEN : Soft, non-disten ded. No tenderness to palpation. No rebound or guardin g. No masses. MUSC ULOSKELETAL: Chest examination revea ls no tenderness. The back is symmet rical on inspectio n without obvious abnormality. There is no CVA tendern ess to palpation. LOWER EXTREMITIES : Calves are equal size bilaterally and non-tender. No edema. No discolo ration. NEURO: No rmal sensorium. SK IN: No rash or jau ndice noted. Resident Activity Tracking Resident Involvement: Resident Care Provided Care Provided: [facility] _ (1) BPH (benign prostatic hyperplasia) Lower urinary tract symptom detail: Lower urinary tract symptom presence: unspecified whether lower urinary tract symptoms present Qualified Code(s): N40.0 - Benign prostatic hyperplasia without lower urinary tract symptoms (2) Diabetes Chronic kidney disease stage: on chronic dialysis Diabetes mellitus complication detail: with chronic kidney disease Diabetes mellitus complication status: with kidney complications Diabetes mellitus 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 insulin use: with 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 use Diabetes mellitus macular edema: Diabetes mellitus type: type 2 Diabetic retinopathy severity: Laterality: Proliferative retinopathy type: Qualified Code(s): E11.22 - Type 2 diabetes mellitus with diabetic chronic kidney disease; N18.6 - End stage renal disease; 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 transplanted heart: wrangell heart Qualified Code (s): I25.10 - Atherosclerotic heart disease of wr[place] coronary artery without angina pectoris (4) Hypothyroidism Hypothyroidism type: acquired Qualified Code(s): E03.9 - Hypothyroidism, unspecified (5) COPD (chronic obstructive pulmonary disease) COPD type: unspecified COPD Chronic bronchitis type: Emphysema type: Qualified Code(s): J44.9 - Chronic obstructive pulmonary disease, unspecified (6) Hypertension Hypertension type: essential hypertension Qualified Code(s): I10 - Essential (primary) hypertension
[2018-06-06] MEDS: AMLODIPINE BESYLATE 5 MG TAB PO SCH (20:25)
[2018-06-06] MEDS: ROSUVASTATIN CALCIUM 20 MG TAB PO SCH (20:25)
[2018-06-06] MEDS: GABAPENTIN 100 MG CAP PO SCH (20:26)
[2018-06-07] MEDS: LEVOTHYROXINE SODIUM 200 MCG TABLET PO SCH (05:55)
[2018-06-07 08:04] LABS: Hematocrit (blood only) 28.8 % (42-52); Hemoglobin 8.9 g/dL (14.0-18.0); Mean Corpuscular Hgb Conc 30.9 g/dL (32-36); Mean Platelet Volume 11.1 fL (7.4-10.4); Platelet Count 147 K/uL (130-400); RDW Coefficient of Variation 15.7 % (11.5-14.5); RDW Standard Deviation 47.4 fL (36.4-46.3); Red Blood Count 3.47 M/uL (4.7-6.1); White Blood Count 4.37 K/uL (4.8-10.8)
[2018-06-07] MEDS: INSULIN ASPART 100 UNITS/ML 3 ML PEN SC SCH ×2 (08:20→13:54)
[2018-06-07] MEDS ORDERED: HydrALAZINE HCL 20 MG/ML VIAL IV STA (08:22)
[2018-06-07] MEDS: TAMSULOSIN HCL 0.4 MG CAP PO SCH (08:24)
[2018-06-07] MEDS: FUROSEMIDE 80 MG TAB PO SCH (08:24)
[2018-06-07] MEDS: HydrALAZINE 10 MG TAB PO SCH ×2 (08:24→14:08)
[2018-06-07] MEDS: LABETALOL HCL 200 MG TAB PO SCH (08:25)
[2018-06-07] MEDS: CALCIUM ACETATE 667 MG CAP PO SCH ×2 (08:25→14:08)
[2018-06-07] MEDS: SUCRALFATE 1 GM TAB PO SCH ×2 (08:26→14:08)
[2018-06-07] MEDS: PANTOprazole 40 MG TAB PO SCH (08:26)
[2018-06-07] MEDS: DOCUSATE SODIUM 100 MG CAP PO SCH (08:26)
[2018-06-07 08:50] LABS: Albumin Level 3.1 gm/dl (3.4-5.0); BUN Creatinine Ratio 8.5 (10-20); Bilirubin,Total 0.6 mg/dl (0.2-1); Calcium 9.2 mg/dl (8.5-10.1); Creatinine Clr Calc Pharmacy 11.2 ml/min; Est GFR (African American) 7.9; Est GFR (Non-African American) 6.8; Globulin 3.2 gm/dl (2.5-4.0); Potassium 3.5 mmol/L (3.5-5.1); Total Protein 6.3 gm/dl (6.4-8.2); Troponin I 0.195 ng/ml (0-0.045)
--- NOTE | 2018-06-07 10:00 | Nephrology Progress Note ---
Date of Service June 07, 2018 Assessment & Plan (1) End-stage renal disease on hemodialysis: -- Orders for HD have been entered this morning. Plan for a 2 hour treatment for clearance and additional UF (1 L) -- MWF schedule -- Plan to resume normal treatment on Saturday (2) Anemia: -- Will provide Epogen 81488 units with HD today -- No reported evidence of persistent bleeding -- EGD report reviewed, no obvious source of active bleeding (3) Shortness of breath: -- Improving -- Releated to PVC and anemia (4) Hypertension: -- Continue current antihypertensives -- Hopefully will see some improvement with HD today -- Augie reported a history of headaches associated with Imdur in the past -- May consider starting Cardura 1 mg daily if BP remains elevated post HD today Subjective Augie was seen and evaluated in his hospital room this morning. He is sitting comfortably in his chair and states that he feels well. A dose of IV hydralazine was provided this morning for accelerated hypertension. Augie states that he is asymptomatic in terms of his blood pressure. He denies chest pain. He denies headaches. Augie reports significant pain in his legs during HD yesterday. He was refusing treatment today due to cramping and shooting pain down both legs (below the knees to the feet). He describes the pain as sudden onset and severe. This is a symptom that he has experienced since starting HD. It typically resolves on it' s own though he believes morphine has also helped in the past. Augie reports improvement in dyspnea. He had one bowel movement last evening. He denies persistent melena or hematochezia. Appetite is good. Augie hopes that he will be discharged home soon. We had a long discussion about goals of care. Augie is not interested in stopping dialysis but repeatedly stated that he is interested in the "least amount to get by." He is not concerned about missing 5 treatments though he admits that trying to catch-up with missed treatments has been miserable. After a long discussion, Augie refused to consider anything more than 2 hours of dialysis today. Review of Systems All systems reviewed & are unremarkable except as noted in HPI & below Physical Exam 2 Vital Signs (Past 24 Hours): Last Vital Signs Temp 36.5 C 06/07/18 06:16 Pulse 61 06/07/18 06:16 Resp 22 06/07/18 06:16 BP 196/82 H 06/07/18 06:16 Pulse Ox 91 06/07/18 06:16 Constitutional: well developed and + thin; no acute distress and not ill appearing Eyes: no scleral abnormality and no corneal abnormality ENMT: external ear and nose normal, oropharynx normal Neck: trachea midline, no thyromegaly Respiratory: normal respiratory effort; no respiratory distress Auscultation: lungs clear to auscultation bilaterally and + rales (basilar) Cardiovascular: Heart Sounds: normal S1 and normal S2 Gastrointestinal (Abdomen): Inspection/Auscultation: abdomen normal to inspection Percussion/Palpation: abdomen soft Musculoskeletal: Extremities: extremities normal to inspection; no cyanosis and no clubbing Skin: no rashes, warm and dry Results & Data Laboratory Results Laboratory Results - last 24 hr 06/04/18 06/06/18 06/06/18 22:39 11:32 16:35 WBC RBC Hgb Hct MCV MCH MCHC RDW Std Deviation RDW Coeff of Jose C Plt Count MPV Sodium Potassium Chloride Carbon Dioxide Anion Gap BUN Creatinine Est Cr Clr Drug Dosing Est GFR ( Amer) Est GFR (Non-Af Amer) BUN/Creatinine Ratio Glucose POC Glucose 127 H 114 H Calcium Total Bilirubin AST ALT Alkaline Phosphatase Troponin I Total Protein Albumin Globulin Albumin/Globulin Ratio Blood Type B Positive Antibody Screen NEGATIVE Crossmatch See Detail 06/06/18 06/07/18 06/07/18 20:25 07:14 07:49 WBC 4.37 L RBC 3.47 L Hgb 8.9 L Hct 28.8 L MCV 83.0 MCH 25.6 MCHC 30.9 L RDW Std Deviation 47.4 H RDW Coeff of Jose C 15.7 H Plt Count 147 MPV 11.1 H Sodium Potassium Chloride Carbon Dioxide Anion Gap BUN Creatinine Est Cr Clr Drug Dosing Est GFR ( Amer) Est GFR (Non-Af Amer) BUN/Creatinine Ratio Glucose POC Glucose 118 H 124 H Calcium Total Bilirubin AST ALT Alkaline Phosphatase Troponin I Total Protein Albumin Globulin Albumin/Globulin Ratio Blood Type Antibody Screen Crossmatch 06/07/18 07:49 WBC RBC Hgb Hct MCV MCH MCHC RDW Std Deviation RDW Coeff of Jose C Plt Count MPV Sodium 138 Potassium 3.5 Chloride 103 Carbon Dioxide 24 Anion Gap 10.0 BUN 60 H Creatinine 7.07 H* D Est Cr Clr Drug Dosing 11.2 Est GFR ( Amer) 7.9 Est GFR (Non-Af Amer) 6.8 BUN/Creatinine Ratio 8.5 L Glucose 124 H POC Glucose Calcium 9.2 Total Bilirubin 0.6 AST 15 ALT 22 Alkaline Phosphatase 77 Troponin I 0.195 H* Total Protein 6.3 L Albumin 3.1 L Globulin 3.2 Albumin/Globulin Ratio 1.0 Blood Type Antibody Screen Crossmatch _ (1) Hypertension Hypertension type: essential hypertension Qualified Code(s): I10 - Essential (primary) hypertension
[2018-06-07] MEDS ORDERED: EPOETIN ALFA 10,000 UNITS/ML VIAL IV SCH (10:30)
--- NOTE | 2018-06-07 10:30 | Anesthesiology Progress Note ---
Date of Service June 07, 2018 Anesthesia Post Procedure Vital Signs Vital Signs: Temp Pulse Pulse Pulse Resp BP BP 06/07/18 06:16 36.5 C 61 22 196/82 H 06/07/18 05:09 36.7 C 61 22 165/64 H 06/07/18 00:00 64 06/06/18 23:00 36.8 C 62 22 176/65 H 06/06/18 19:18 36.7 C 59 L 20 182/76 H 06/06/18 16:38 36.3 C L 59 L 20 204/79 H 06/06/18 16:20 60 18 182/70 H 06/06/18 16:05 60 16 166/68 H 06/06/18 15:48 61 16 164/61 H 06/06/18 14:45 36.5 C 169/77 H 06/06/18 14:29 36.1 C L 60 16 170/67 H 06/06/18 13:30 58 L 150/63 H 06/06/18 13:15 59 L 169/80 H 06/06/18 13:00 57 L 175/79 H 06/06/18 12:52 36.6 C 56 L 18 163/79 H 06/06/18 12:45 56 L 163/79 H 06/06/18 12:30 57 L 168/81 H 06/06/18 12:15 57 L 151/73 H 06/06/18 12:04 36.5 C 55 L 18 151/72 H 06/06/18 12:00 55 L 151/72 H 06/06/18 11:52 36.8 C 57 L 20 173/73 H 06/06/18 11:48 56 L 161/73 H 06/06/18 11:38 36.5 C 60 Pulse Ox 06/07/18 06:16 91 06/07/18 05:09 92 06/07/18 00:00 06/06/18 23:00 92 06/06/18 19:18 93 06/06/18 16:38 97 06/06/18 16:20 98 06/06/18 16:05 92 06/06/18 15:48 95 06/06/18 14:45 06/06/18 14:29 93 06/06/18 13:30 06/06/18 13:15 06/06/18 13:00 06/06/18 12:52 06/06/18 12:45 06/06/18 12:30 06/06/18 12:15 06/06/18 12:04 95 06/06/18 12:00 06/06/18 11:52 93 06/06/18 11:48 06/06/18 11:38 Pain Intensity Generalized: Pain Intensity: 0 Notes Mental Status: alert / awake / arousable Patient Amnestic to Procedure: Yes Nausea / Vomiting: adequately controlled Pain: adequately controlled Airway Patency, RR, SpO2: stable & adequate BP & HR: stable & adequate Hydration State: stable & adequate Anesthetic Complications: no major complications apparent
--- NOTE | 2018-06-07 12:52 | Family Medicine Progress Note ---
Date of Service June 07, 2018 Assessment & Plan (1) Shortness of breath: (1) Shortness of breath: Patient is a 78 year old male with a past medical history of ESRD on HD, COPD, CAD, Chronic blood loss anemia, DM II, Diastolic CHF, Hypothyroidism. The patient presents with SOB after missing his last 5 consecutive dialysis sessions. 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 - Multiple gastric polyps. - Congestive gastropathy. - Non-bleeding duodenal diverticulum. - No specimens collected. - No bleeding visualized on Endoscopy above - Scheduled for push enteroscopy for the small bowel AVMs in [place] on 2016 - Sucralfate 1mg PO ACHS - Protonix 40mg PO BID - EGD 04/19 - Gallagher's esophagus, Angiodysplasia, gastric polyp c/w an adenoma - Will receive Epogen 51028 units w/ HD today 4) Hypertension - Baseline HTN in addition to volume overload from missing dialysis - Continue home Amlodipine 10mg PO HS - Continue home Hydralazine 10mg PO TID - Continue home Labetalol 400mg PO BID - Continue home Lisinopril 40mg PO daily - Dialysis as above - Given 5mg of hydralazine IV once this morning - Will monitor BP today and if continues to be elevated then can add 1mg cardura 5) Diastolic CHF - Furosemide 80mg PO BID 6) Diabetes Mellitus - Insulin Detemir 50 units SQ QAM and 45 units SQ QPM - ISS with BSG checks AC/HS 7) CAD - Troponin has stabilized 0.086 --> 0.256 --> 0.239 --> 0.257 -->.195 - Appears to have an elevated trop at baseline 8) Hyperlipidemia - Continue home Rosuvastatin 20mg PO qPM 9) BPH - Continue home Tamsulosin 10) Hypothyroidism - Continue home Synthroid DVT Prophylaxis - SCDs Code Status - Full Resuscitation Dispo - discharge tomorrow pending stable hgb and monitoring of BP Supervising Physician Co-Signing Physician Notes Attending Note I saw the patient with Dr. Butler and confirmed mora portions of the history and exam.. I agree with the impression and plan as documented above. Please see the discharge summary for additional attestation. Wayne Patrick notes he feels well today. He does note that he did not want to go to dialysis today as he experienced very significant lower leg cramping yesterday after his dialysis treatment. He describes it as a 01/10. He has had similar pain in the past with dialysis but never as severe as it was yesterday. He notes that he is eager to be discharged soon. He was seen by Nephrology this morning whom convinced him to have 2 hours of dialysis. I did administer 5mg of hydralazine this morning due to the patient having elevated blood pressure. He denies any chest pain, shortness of breath, lower extremity swelling, abdominal pain, nausea, vomiting, diarrhea, constipation, cough, palpitations Review of Systems All systems reviewed & are unremarkable except as noted in HPI & below Physical Exam 2 Vital Signs (Past 24 Hours): Last Vital Signs Temp 36.5 C 06/07/18 12:12 Pulse 60 06/07/18 12:12 Resp 22 06/07/18 06:16 BP 178/77 H 06/07/18 12:12 Pulse Ox 91 06/07/18 06:16 Constitutional: WD/WN, vitals as above well developed; not ill appearing Neck: No elevated JVD Respiratory: + abnormal respiratory effort and does not use accessory muscles Auscultation: no diminished lung sounds and no wheezes mild rhonchi at the bases Cardiovascular: RRR, no murmur, no edema Vessels: dorsalis pedis pulses present Extremities: no calf tenderness and no pedal edema Gastrointestinal (Abdomen): normal bowel sounds, soft, nontender, no hepatosplenomegaly Musculoskeletal: no cyanosis or clubbing, extremities motor strength 5/5 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
[2018-06-07] MEDS: NEPHROCAPS PO SCH (14:08)
[2018-06-07] MEDS: LISINOPRIL 40 MG TAB PO SCH (14:09)
--- NOTE | 2018-06-07 15:21 | Discharge Summary ---
Date of Service June 07, 2018 Admission HPI Per Admitting Provider For EGD Principal Diagnosis Shortness of breath secondary to fluid overload from non compliance with dialysis Discharge Exam Constitutional: WD/WN, vitals as above well developed; not ill appearing Neck: No elevated JVD Respiratory: + abnormal respiratory effort and does not use accessory muscles Auscultation: no diminished lung sounds and no wheezes mild rhonchi at the bases Cardiovascular: RRR, no murmur, no edema Vessels: dorsalis pedis pulses present Extremities: no calf tenderness and no pedal edema Gastrointestinal (Abdomen): normal bowel sounds, soft, nontender, no hepatosplenomegaly Musculoskeletal: no cyanosis or clubbing, extremities motor strength 5/5 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 Discharge Data Allergies Allergy/AdvReac Type Severity Reaction Status Date / Time metformin AdvReac Intermediate CONFUSION Verified 06/04/18 21:47 Consultations 06/04/18 22:49 ED Decision to Admit Stat 06/05/18 01:05 Consult Gastroenterology Routine Consult Nephrology Routine Procedures Performed Operation Date: 06/06/18 15:00 Actual Procedures p Esophagogastroduodenoscopy - [facility] Course (1) Shortness of breath: (1) Shortness of breath: Patient is a 78 year old male with a past medical history of ESRD on HD, COPD, CAD, Chronic blood loss anemia, DM II, Diastolic CHF, Hypothyroidism. The patient presented with SOB after missing his last 5 consecutive dialysis sessions. He was found to be fluid overloaded with an elevated creatinine and needed several dialysis sessions to resolve symptoms. 1) SOB (resolved) - 2/2 ESRD from Dialysis in addition to underlying CHF - Nephrology Consult --> Hemodialysis performed on 06/05/2018 and 06/06/2018 and 2 hours on 06/07/2018 - His symptoms have now improved - Will be following up with dialysis on Saturday, and Saturday 2) ESRD on Hemodialysis - Creatinine of 11.17 on admission --> Currently improved to 7.07 - Continue with HD on Saturday, and Saturday 3) Chronic Blood Loss Anemia - Initial hemoglobin of 7.1 on admission --> Improved to 8.9 at discharge - GI Consultation - Thus far 2 units of PRBC transfused (1 unit with each session of dialysis) - EGD 06/06 Impressions as per GI: - 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 - Multiple gastric polyps. - Congestive gastropathy. - Non-bleeding duodenal diverticulum. - No specimens collected. - No bleeding visualized on Endoscopy above - Scheduled for push enteroscopy for the small bowel AVMs in [place] on 2016 - Sucralfate 1mg PO ACHS - Protonix 40mg PO BID - EGD 04/19 - Gallagher's esophagus, Angiodysplasia, gastric polyp c/w an adenoma - Will receive Epogen 61979 units w/ HD on day of discharge - Will need recheck of hgb at dialysis on Saturday 4) Hypertension - Baseline HTN in addition to volume overload from missing dialysis - Continue home Amlodipine 10mg PO HS - Continue home Hydralazine 10mg PO TID - Continue home Labetalol 400mg PO BID - Continue home Lisinopril 40mg PO daily - Will add 1mg of cardura at discharge - PCP to follow up with BP at follow up visit 5) Diastolic CHF - Furosemide 80mg PO BID 6) Diabetes Mellitus - Insulin Detemir 50 units SQ QAM and 45 units SQ QPM - ISS with BSG checks AC/HS 7) CAD - Troponin has stabilized 0.086 --> 0.256 --> 0.239 --> 0.257 -->.195 - Appears to have an elevated trop at baseline 8) Hyperlipidemia - Continue home Rosuvastatin 20mg PO qPM 9) BPH - Continue home Tamsulosin 10) Hypothyroidism - Continue home Synthroid DVT Prophylaxis - SCDs Total Time Total Time Spent Total Time Spent (In Minutes): 20 Discharge Plan Discharge Items Patient Disposition: Home - Self-Care Reason For Visit: SOB Discharge Diagnosis: Shortness of breath secondary to poor dialysis compliance Discharge Goals: Improve disease control and Prevent disease Activity: Resume your previous activity Non-emergency contact: Primary Care Provider and Die Holder Call non-emergency contact if: you have any medication questions and your symptoms worsen Diet: Carb Consistent or DM2 and Dialysis Renal Addtl Provider Instructions: You came to the hospital due to shortness of breath This was due to the fact that you did not go to your regular dialysis sessions While in the hospital you received dialysis on 3 consecutive days This seemed to improve your shortness of breath You were also found to have a low hemoglobin (red blood cell) level in the hospital and needed two transfusions of red blood cells. Your red blood cell numbers appear stable but you will need them rechecked at your next dialysis session on Saturday Your upper endoscopy showed polyps in your stomach and a non bleeding diverticulum If you experience any blood in your stool, if you vomit blood or if you experience any abdominal pain then please come back to the emergency room While in the hospital your blood pressure was on the high side; therefore we will be sending you home with a new medication called cardura. You can pick this up from the pharmacy and you can take once daily in the mornings. Prescriptions: New doxazosin [Cardura] 1 mg tablet 1 mg PO DAILY Qty: 30 RF: 0 Continue insulin detemir U-100 100 unit/mL solution 50 units subcut QAM RF: 0 insulin detemir U-100 100 unit/mL solution 45 units subcut QPM RF: 0 nut.tx.gluc intol,lf,soy-fiber [Boost Glucose Control] 0.06-1.1 gram-kcal/mL Liquid 1 ea PO WM RF: 0 tamsulosin 0.4 mg capsule 0.4 mg PO QAM RF: 0 furosemide 80 mg tablet 80 mg PO BID RF: 0 amlodipine 10 mg tablet 10 mg PO HS RF: 0 levothyroxine 50 mcg tablet 50 mcg PO 5XWK RF: 0 docusate sodium 100 mg Capsule 100 mg PO QAM RF: 0 gabapentin 100 mg capsule 100 mg PO HS RF: 0 B complex with C#20-folic acid 1 mg capsule 1 mg PO DAILY@1200 RF: 0 labetalol 100 mg tablet 400 mg PO BID RF: 0 lisinopril 40 mg tablet 40 mg PO DAILY@1200 RF: 0 rosuvastatin 20 mg tablet 20 mg PO QPM RF: 0 calcium acetate 667 mg capsule 1,334 mg PO TIDM RF: 0 levothyroxine 200 mcg tablet 200 mcg PO QAM RF: 0 hydralazine 10 mg Tablet 10 mg PO TID Qty: 90 RF: 2 sucralfate 1 gram Tablet 1 g PO ACHS Qty: 120 RF: 1 pantoprazole 40 mg Tablet,Delayed Release (Dr/Ec) 40 mg PO BID Qty: 60 RF: 2 Visit Report Forms: My [employer] [facility] Stand-Alone Forms: My [facility] [employer]/Other Patient Handouts: Doxazosin Mesylate Oral tablet Discharge Orders: Discharge Order (Routine); Ordered 06/07/18 Ordered By: Sarath Butler Admission Data Admit Date/Time: 06/04/18 23:48 Attending Provider: Jr Preston Admit Provider: Master Sánchez Primary Care Provider: Mahsa Wang Other Providers: Master Sánchez ; Mando White ; Jama Gracia Service: Telemetry Other Interventions: Discharge Summary Assessment (RN) Last Done: 06/07/18 15:17 DC Date/Time DO NOT enter until pt leaves facility: 06/07/18 16:00 Supervising Physician Co-Signing Physician Notes Attending Note I saw the patient with Dr. Butler and confirmed mora portions of the history and exam.. I agree with the impression and plan as documented above. I also discussed the case with nephrology. The patient completed 2 hours of hemodialysis earlier today after initially refusing; he tolerated it well without the leg cramps he described during previous dialysis treatments. He feels well and without complaints and desires discharge. His hemoglobin is improved compared to yesterday; the patient has had several bowel movements without evidence of bleeding. ESRD-HD w/ 5x missed sessions of dialysis He will return to his Saturday, , Saturday schedule Chronic anemia w/ GI bleed EGD today without source continiue PPI one unit PRBCs today during HD yesterday HgB at time of next dialysis treatment h/o CAD Continue B amberly and statin therapy
== END 2018-06-07 16:00 | disposition home or self-care (01) | DRG 640 ==
LOC: ED 20:27 → 2S 23:48 → SUATTDRO 23:48 → 2S 06-05 00:12

== ENCOUNTER 2018-08-24 13:06 | Inpatient (IN) ==
[2018-08-24 13:49] LABS: Mean Corpuscular Hgb Conc 30.1 g/dL (32-36)
[2018-08-24 13:59] LABS: iSTAT Creatinine 12.6 mg/dl (0.6-1.3); iSTAT Hemoglobin 8.8 g/dl (14.0-18.0); iSTAT Ionized Calcium 1.15 mmol/l (1.12-1.32); iSTAT Potassium 3.9 mEq/L (3.3-5.0)
[2018-08-24 14:18] LABS: Albumin Globulin Ratio 0.9 (0.9-2); Albumin Level 3.1 gm/dl (3.4-5.0); BUN Creatinine Ratio 8.7 (10-20); Bilirubin,Total 0.6 mg/dl (0.2-1); Calcium 8.7 mg/dl (8.5-10.1); Creatinine Clr Calc Pharmacy 6.4 ml/min; Est GFR (Non-African American) 3.4; Globulin 3.4 gm/dl (2.5-4.0); Hematocrit (blood only) 28.2 % (42-52); Hemoglobin 8.5 g/dL (14.0-18.0); Magnesium 2.1 mg/dl (1.8-2.4); Mean Corpuscular Volume 79.9 fL (80-100); RDW Coefficient of Variation 18.4 % (11.5-14.5); RDW Standard Deviation 53.5 fL (36.4-46.3); Red Blood Count 3.53 M/uL (4.7-6.1); Total Protein 6.5 gm/dl (6.4-8.2); Troponin I 0.094 ng/ml (0-0.045); White Blood Count 3.76 K/uL (4.8-10.8)
[2018-08-24 14:19] LABS: Platelet Count 136 K/uL (130-400)
[2018-08-24 14:20] LABS: Basophils # (auto) 0.04 K/uL (0-0.2); Basophils % (auto) 1.1 %; Eosinophils % (auto) 2.7 %; Immature Granulocytes # (auto) 0.01 K/uL (0.00-0.02); Immature Granulocytes % (auto) 0.3 %; Lymphocytes # (auto) 0.49 K/uL (1.2-3.4); Monocytes # (auto) 0.27 K/uL (0.11-0.59); Monocytes % (auto) 7.2 %; Neutrophils # (auto) 2.85 K/uL (1.4-6.5); Neutrophils % (auto) 75.7 %; Platelet Estimate Decreased (Normal); Poikilocytosis Present
--- NOTE | 2018-08-24 14:24 | XRay Report ---
XR chest 1V portable CLINICAL HISTORY: weakness COMPARISON STUDY: Chest radiograph July 04, 2018. FINDINGS: There is no pneumothorax or pleural effusion. Moderate cardiomegaly is unchanged. There is no evidence for pulmonary edema. Bibasilar opacities favor atelectasis. IMPRESSION: 1. Bibasilar opacities which favor atelectasis. An infectious process could appear similar although i s considered less likely. 2. Moderate cardiomegaly. No evidence for pulmonary edema. Electronically signed by: Marcus Salazar M.D. 08/24/2018 2:23 PM
--- NOTE | 2018-08-24 14:35 | Nephrology Consultation ---
Date of Consultation August 24, 2018 Assessment & Plan (1) End-stage renal disease on hemodialysis: 78-year-old gentlemen with end-stage renal disease secondary to hypertensive nephropathy, has been on hemodialysis Saturday, , Saturday. He has been noncompliant with dialysis and repeatedly missing dialysis sessions. Did not have dialysis last almost 2 weeks, however, currently electrolyte and volume status seems acceptable. Hemoglobin 8.5. Potassium normal. No urgent need for dialysis at this time. Will plan for dialysis tomorrow. --discussed in detail with the patient and family regarding his noncompliance with dialysis treatment. Discussed about different options including discontinuing dialysis however he repeatedly expressed that he would like to continue on dialysis. Discussed in detail why it is critical to be compliant and go for dialysis regularly. After detailed discussion patient expressed that he would like to continue on dialysis --Epogen 19002 units with dialysis tomorrow --continue on his home antihypertensive medications --continue on phosphate binder and Nephrocaps Thank you for allowing me to participate in your patient's care. It was a pleasure to see Augie (2) Hypertension: (3) Anemia: (4) Secondary hyperparathyroidism of renal origin: (5) Diabetes: History of Present Illness Reason for Consultation: End-stage renal disease on hemodialysis History of Present Illness Augie Mcintyre is a 78-year-old gentlemen with past medical history significant for end-stage renal disease on hemodialysis, hypertension, diabetes and coronary artery disease presented to the emergency room with the overall feeling poorly, dizziness lightheadedness and need for dialysis. Nephrology consult was requested to manage hemodialysis. Family was at bedside. Augie has end-stage renal disease, has been on dialysis on Saturday, , Saturday as [place] dialysis unit for last almost 3 years. He has left radiocephalic AV fistula his has been functioning well. Over last 1 year he has been noncompliant with dialysis, repeatedly missing dialysis 4 days and sometime weeks. He missed dialysis for last almost 2 weeks as he was feeling well and did not need dialysis.. However, over last 2 days he has been feeling poorly with occasional shortness of breath, dizziness and lightheadedness. On admission he was found to be hypertensive with systolic blood pressure in 198/76. Electrolyte including potassium normal, creatinine 12 to 13. Hemoglobin 8.5. He has anemia with end-stage renal disease and history of GI bleeding before. Had EGD and colonoscopy done last week at [place], he was told there was no active bleeding, has few polyps which was removed. He has not been getting any Epogen over last 2 weeks as he has been missing dialysis. Currently he denies any shortness of breath or chest pain. Reports having nonspecific pain. Denies further episode of dizziness or lightheadedness. Allergies Allergy/AdvReac Type Severity Reaction Status Date / Time metformin AdvReac Intermediate CONFUSION Verified 08/24/18 13:56 Home Medications Home Medications Medication Instructions Recorded Confirmed Type amlodipine 10 mg PO HS 04/19/18 08/24/18 History calcium acetate 1,334 mg PO TIDM 04/19/18 08/24/18 History docusate sodium 200 mg PO QAM 04/19/18 08/24/18 History furosemide 80 mg PO BID 04/19/18 08/24/18 History gabapentin 100 mg PO HS 04/19/18 08/24/18 History labetalol 400 mg PO BID 04/19/18 08/24/18 History levothyroxine 200 mcg PO 2XWK 04/19/18 08/24/18 History lisinopril 40 mg PO DAILY@1200 04/19/18 08/24/18 History rosuvastatin 20 mg PO QPM 04/19/18 08/24/18 History tamsulosin 0.4 mg PO QAM 04/19/18 08/24/18 History pantoprazole 40 mg PO BID #60 tab 04/23/18 08/24/18 Rx insulin detemir U-100 45 units SUBCUT QAM 06/04/18 08/24/18 History insulin detemir U-100 50 units SUBCUT HS 06/04/18 08/24/18 History B complex with C#20-folic acid 1 cap PO DAILY@1200 07/04/18 08/24/18 History [Renal Caps] doxazosin [Cardura] 1 mg PO DAILY@1200 07/04/18 08/24/18 History hydralazine 10 mg PO TIDM 07/04/18 08/24/18 History levothyroxine 250 mcg PO 5XWK 08/24/18 08/24/18 History Patient History Social History Preferred Language: Belarusian Beliefs That Will Affect Care: None marital status: Current Living Situation: Spouse Feels Safe at Home: Yes Smoking Status: Former smoker Hx Alcohol Use: No Hx Substance Use: No Review of Systems Detailed review of system was otherwise unremarkable except pertinent positive and negative findings mention above in history of present illness. Physical Exam Vital Signs (Past 24 Hours): Last Vital Signs Temp 36.8 C 08/24/18 13:17 Pulse 59 L 08/24/18 14:09 Resp 16 08/24/18 14:09 BP 198/76 H 08/24/18 14:09 Pulse Ox 94 08/24/18 14:09 Physical Exam: GENERAL: Elderly male, AAA x 3,not in any distress. HEENT: Atraumatic, normocephalic. NECK: Supple, no JVD, no carotid bruit appreciated. ENT: No sinus tenderness MOUTH and THROAT: Moist oral mucosa, RESPIRATORY: Normal breathing efforts, clear to auscultation bilaterally, no wheezes or rales. CARDIOVASCULAR: S1, S2 normal, rate rhythm regular. ABDOMEN: Soft, nontender, positive bowel sound. MUSCULOSKELETAL: No CVA tenderness. No joint swelling, erythema or tenderness. Normal range of motion. SKIN: No skin rash EXTREMITY: Trace bilateral lower extremity edema, left radiocephalic AV fistula with decent thrill and bruit NEURO: No gross focal neurological deficit, speech fluent. 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
--- NOTE | 2018-08-24 15:57 | History & Physical Report ---
Date of Service August 24, 2018 Assessment & Plan (1) End stage renal disease: see below (2) Fluid overload: due to missing HD for two weeks no pulmonary edema, no distress, has edema in legs plan for HD tomorrow per Dr. Briceno, not emergent (3) Missed dialysis: missed for two weeks still makes urine with Lasix discussed the dangers of missing HD, can from electrolyte abnormalities, volume overload Dr. Briceno had a long discussion with him as well, asked if he wanted to continue after a long talk he stated that he wants to continue on HD (4) Anemia: chronic, due to ESRD gets EPO injections Hb is stable at 8.5 h/o GI bleeding, no current symptoms (5) Diabetes: continue on Levemir BID Novolog SS ordered (6) Hypertension: continue home regimen Hydralazine IV PRN (7) CAD (coronary artery disease): no chest pain, no EKG changes continue home regimen (8) BPH (benign prostatic hyperplasia): (9) Hypothyroidism: History of Present Illness Chief Complaint: I missed dialysis Primary Care Provider: Mahsa Wang, DO 78 yo male with history of ESRD on HD as well as diabetes and HTN. He comes to the ED today complaining of some dyspnea on exertion, peripheral edema. He has missed HD for the past two weeks. When asked why, he states that he had "stuff going on, did not have time to go." Discussed danger of missing HD, explained that he can without treatment. Dr. Briceno saw him in the ED as well, she had a discussion about whether he even wanted to continue on HD. After some time he said yes. She plans for HD tomorrow. Surprisingly his electrolytes were stable and he was not in respiratory distress. He does make urine with Lasix TID which is probably why he did as well as he did. He denies chest pain, abdominal pain, vomiting, diarrhea, constipation. He is compliant with his insulin regimen at home of Levemir. Allergies Allergy/AdvReac Type Severity Reaction Status Date / Time metformin AdvReac Intermediate CONFUSION Verified 08/24/18 13:56 Home Medications Home Medications Medication Instructions Recorded Confirmed Type amlodipine 10 mg PO HS 04/19/18 08/24/18 History calcium acetate 1,334 mg PO TIDM 04/19/18 08/24/18 History docusate sodium 200 mg PO QAM 04/19/18 08/24/18 History furosemide 80 mg PO BID 04/19/18 08/24/18 History gabapentin 100 mg PO HS 04/19/18 08/24/18 History labetalol 400 mg PO BID 04/19/18 08/24/18 History levothyroxine 200 mcg PO 2XWK 04/19/18 08/24/18 History lisinopril 40 mg PO DAILY@1200 04/19/18 08/24/18 History rosuvastatin 20 mg PO QPM 04/19/18 08/24/18 History tamsulosin 0.4 mg PO QAM 04/19/18 08/24/18 History pantoprazole 40 mg PO BID #60 tab 04/23/18 08/24/18 Rx insulin detemir U-100 45 units SUBCUT QAM 06/04/18 08/24/18 History insulin detemir U-100 50 units SUBCUT HS 06/04/18 08/24/18 History B complex with C#20-folic acid 1 cap PO DAILY@1200 07/04/18 08/24/18 History [Renal Caps] doxazosin [Cardura] 1 mg PO DAILY@1200 07/04/18 08/24/18 History hydralazine 10 mg PO TIDM 07/04/18 08/24/18 History levothyroxine 250 mcg PO 5XWK 08/24/18 08/24/18 History Past Med/Surg History Medical History BPH (benign prostatic hyperplasia) Hypothyroidism Diabetes (Chronic) Hypertensive urgency (Acute) Epistaxis (Chronic) Heart disease (Chronic) Secondary hyperparathyroidism of renal origin Anemia (Acute) End-stage renal disease on hemodialysis COPD (chronic obstructive pulmonary disease) AVF (arteriovenous fistula) Surgical History No pertinent past surgical history Family History Unknown Heart attack Diabetes Social History Preferred Language: Malay Communication Ability: Effective Beliefs That Will Affect Care: None marital status: Current Living Situation: Spouse Other Information That Helps Us Care for You: No Feels Safe at Home: Yes Safety Concerns: Feels Safe At This Time Smoking Status: Former smoker Hx Alcohol Use: No Hx Substance Use: No Review of Systems All systems reviewed & are unremarkable except as noted in HPI & below Constitutional: no fever, no sweats, no fatigue and no weakness Respiratory: + dyspnea on exertion Cardiovascular: + dyspnea on exertion, + orthopnea and + edema; no chest pain and no chest pain at rest Physical Exam Vital Signs (Past 24 Hours): Last Vital Signs Temp 36.8 C 08/24/18 13:17 Pulse 68 08/24/18 14:58 Resp 16 08/24/18 14:58 BP 160/92 H 08/24/18 14:58 Pulse Ox 97 08/24/18 14:58 Constitutional: WD/WN, vitals as above Eyes: PERRL, conjunctivae normal, anicteric sclerae ENMT: external ear and nose normal, oropharynx normal Neck: trachea midline, no thyromegaly Respiratory: normal respiratory effort; no respiratory distress Auscultation: + rales (bases bilaterally); no crackles, no rhonchi and no wheezes Cardiovascular: Rate/Rhythm: regular rate and regular rhythm Heart Sounds: no murmur Vessels: normal peripheral pulses; no JVD Extremities: + pedal edema (pitting, +2) Gastrointestinal (Abdomen): normal bowel sounds, soft, nontender, no hepatosplenomegaly Musculoskeletal: no cyanosis or clubbing, extremities motor strength 5/5 Skin: no rashes, warm and dry Neurologic: patellar DTR's 2+ bilat, sensation intact and PERRL, EOMI, accommodation nl, no face palsy, no dysarthria Psychiatric: A+Ox3, euthymic affect Lymphatic: no cervical or axillary lymphadenopathy Results & Data Laboratory Results Laboratory Results - last 24 hr 08/24/18 08/24/18 08/24/18 13:16 13:34 13:34 WBC 3.76 L RBC 3.53 L Hgb 8.5 L POC Hgb Hct 28.2 L POC Hct MCV 79.9 L MCH 24.1 L MCHC 30.1 L RDW Std Deviation 53.5 H RDW Coeff of Jose C 18.4 H Plt Count 136 MPV 11.0 H Immature Gran % (Auto) 0.3 Neut % (Auto) 75.7 Lymph % (Auto) 13.0 [place] % (Auto) 7.2 Eos % (Auto) 2.7 Baso % (Auto) 1.1 Immature Gran # (Auto) 0.01 Neut # (Auto) 2.85 Lymph # (Auto) 0.49 L [place] # (Auto) 0.27 Eos # (Auto) 0.10 Baso # (Auto) 0.04 Platelet Estimate Decreased Poikilocytosis Present PT INR APTT PTT Ratio POC Sodium Sodium 144 POC Potassium Potassium 4.0 POC Chloride Chloride 105 Carbon Dioxide 26 POC Total CO2 Anion Gap 12.0 H POC Anion Gap POC BUN BUN 108 H Creatinine 12.50 H* POC Creatinine Est Cr Clr Drug Dosing 6.4 Est GFR ( Amer) 4.0 Est GFR (Non-Af Amer) 3.4 BUN/Creatinine Ratio 8.7 L Glucose 260 H POC Glucose 276 H POC Glucose (other) Calcium 8.7 POC Ioniz Calcium Kathleen Magnesium 2.1 Total Bilirubin 0.6 AST 11 L ALT 21 Alkaline Phosphatase 84 Troponin I 0.094 H* Total Protein 6.5 Albumin 3.1 L Globulin 3.4 Albumin/Globulin Ratio 0.9 Urine Color Urine Appearance Urine pH Ur Specific [place] Urine Protein Urine Glucose (UA) Urine Ketones Urine Blood Urine Nitrite Urine Bilirubin Urine Urobilinogen Ur Leukocyte Esterase Urine WBC (Auto) Urine RBC (Auto) U Hyaline Cast (Auto) U Epithel Cells (Auto) Urine Bacteria (Auto) 08/24/18 08/24/18 08/24/18 13:34 13:47 17:55 WBC RBC Hgb POC Hgb 8.8 L Hct POC Hct 26 L MCV MCH MCHC RDW Std Deviation RDW Coeff of Jose C Plt Count MPV Immature Gran % (Auto) Neut % (Auto) Lymph % (Auto) [place] % (Auto) Eos % (Auto) Baso % (Auto) Immature Gran # (Auto) Neut # (Auto) Lymph # (Auto) [place] # (Auto) Eos # (Auto) Baso # (Auto) Platelet Estimate Poikilocytosis PT 12.1 H INR 1.2 H APTT 27.8 PTT Ratio 1.0 POC Sodium 141 Sodium POC Potassium 3.9 Potassium POC Chloride 101 Chloride Carbon Dioxide POC Total CO2 25 Anion Gap POC Anion Gap 20.0 POC BUN 101 H* BUN Creatinine POC Creatinine 12.6 H* Est Cr Clr Drug Dosing Est GFR ( Amer) Est GFR (Non-Af Amer) BUN/Creatinine Ratio Glucose POC Glucose 225 H POC Glucose (other) 258 H Calcium POC Ioniz Calcium Kathleen 1.15 Magnesium Total Bilirubin AST ALT Alkaline Phosphatase Troponin I Total Protein Albumin Globulin Albumin/Globulin Ratio Urine Color Urine Appearance Urine pH Ur Specific [place] Urine Protein Urine Glucose (UA) Urine Ketones Urine Blood Urine Nitrite Urine Bilirubin Urine Urobilinogen Ur Leukocyte Esterase Urine WBC (Auto) Urine RBC (Auto) U Hyaline Cast (Auto) U Epithel Cells (Auto) Urine Bacteria (Auto) 08/24/18 08/24/18 18:00 20:57 WBC RBC Hgb POC Hgb Hct POC Hct MCV MCH MCHC RDW Std Deviation RDW Coeff of Jose C Plt Count MPV Immature Gran % (Auto) Neut % (Auto) Lymph % (Auto) [place] % (Auto) Eos % (Auto) Baso % (Auto) Immature Gran # (Auto) Neut # (Auto) Lymph # (Auto) [place] # (Auto) Eos # (Auto) Baso # (Auto) Platelet Estimate Poikilocytosis PT INR APTT PTT Ratio POC Sodium Sodium POC Potassium Potassium POC Chloride Chloride Carbon Dioxide POC Total CO2 Anion Gap POC Anion Gap POC BUN BUN Creatinine POC Creatinine Est Cr Clr Drug Dosing Est GFR ( Amer) Est GFR (Non-Af Amer) BUN/Creatinine Ratio Glucose POC Glucose 216 H POC Glucose (other) Calcium POC Ioniz Calcium Kathleen Magnesium Total Bilirubin AST ALT Alkaline Phosphatase Troponin I Total Protein Albumin Globulin Albumin/Globulin Ratio Urine Color Yellow Urine Appearance Clear Urine pH 6.0 Ur Specific [place] 1.017 Urine Protein 3+ H Urine Glucose (UA) 2+ H Urine Ketones Negative Urine Blood Trace H Urine Nitrite Negative Urine Bilirubin Negative Urine Urobilinogen Negative Ur Leukocyte Esterase Negative Urine WBC (Auto) 1-5 Urine RBC (Auto) 0-4 U Hyaline Cast (Auto) 1-5 U Epithel Cells (Auto) 5-10 H Urine Bacteria (Auto) Negative Diagnostic Findings XR chest 1V portable CLINICAL HISTORY: weakness COMPARISON STUDY: Chest radiograph July 04, 2018. FINDINGS: There is no pneumothorax or pleural effusion. Moderate cardiomegaly is unchanged. There is no evidence for pulmonary edema. Bibasilar opacities favor atelectasis. IMPRESSION: 1. Bibasilar opacities which favor atelectasis. An infectious process could appear similar although is considered less likely. 2. Moderate cardiomegaly. No evidence for pulmonary edema. Code Status & VTE Plan Code Status full code VTE Prophylaxis Plan VTE Prophylaxis will be ordered: Yes (1) BPH (benign prostatic hyperplasia) Lower urinary tract symptom presence: unspecified whether lower urinary tract symptoms present Qualified Code(s): N40.0 - Benign prostatic hyperplasia without lower urinary tract symptoms (2) CAD (coronary artery disease) Associated angina: without angina Coronary Disease-Associated Artery/Lesion type: ute artery [place] vs. transplanted heart: ute heart Qualified Code(s): I25.10 - Atherosclerotic heart disease of ute coronary artery without angina pectoris (3) Hypothyroidism Hypothyroidism type: acquired Qualified Code(s): E03.9 - Hypothyroidism, unspecified (4) Fluid overload Hypervolemia type: unspecified Qualified Code(s): E87.70 - Fluid overload, unspecified (5) Diabetes Diabetes mellitus type: type 2 Diabetes mellitus trust advisor insulin use: with trust advisor use Diabetes mellitus complication status: with kidney complications Diabetes mellitus complication detail: with chronic kidney disease Chronic kidney disease stage: on chronic dialysis Qualified Code(s): E11.22 - Type 2 diabetes mellitus with diabetic chronic kidney disease; N18.6 - End stage renal disease; Z79.4 - MCFP (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 (6) Hypertension Hypertension type: essential hypertension Qualified Code(s): I10 - Essential (primary) hypertension
--- NOTE | 2018-08-24 16:55 | Emergency Department Note ---
Entered by Lucian Jackson acting as a scribe for Shayan Klein MD History of Present Illness General Chief complaint: Dizziness Time Seen by Provider: 08/24/18 13:21 Source: patient and family History of Present Illness Onset (ago): week(s) 2 Location: head (global), upper extremity and lower extremity Pain Consistency: + intermittent Quality: + other (dizziness) Exacerbated By: + other (has not received dialysis for past 2 weeks) Associated symptoms: + other (shortness of breath, tingling in extremities) The patient is a 78 year old male who presents to the Emergency Room with complaints of intermittent dizziness, shortness of breath and tingling in the extremities after missing five continuous sessions of dialysis over the past two weeks. The patient states that last night he felt short of breath, and he experienced tingling in his hands and feet. He states that he stopped coming to dialysis because he was tired of it and didnt want to go anymore, but he now wishes to start again. He states that he follows with Dr. Briceno Nephrology, who is not aware that he missed his dialysis. He states that he does not feel bloated, but family reports that his abdomen appears larger than baseline. He denies changes in his baseline leg swelling. The patient notes that he makes his own urine. He states that his PCP is Dr. Kathleen Jansen. Home Medications Home Medications Medication Instructions Recorded Confirmed Type amlodipine 10 mg PO HS 04/19/18 08/24/18 History calcium acetate 1,334 mg PO TIDM 04/19/18 08/24/18 History docusate sodium 200 mg PO QAM 04/19/18 08/24/18 History furosemide 80 mg PO BID 04/19/18 08/24/18 History gabapentin 100 mg PO HS 04/19/18 08/24/18 History labetalol 400 mg PO BID 04/19/18 08/24/18 History levothyroxine 200 mcg PO 2XWK 04/19/18 08/24/18 History lisinopril 40 mg PO DAILY@1200 04/19/18 08/24/18 History rosuvastatin 20 mg PO QPM 04/19/18 08/24/18 History tamsulosin 0.4 mg PO QAM 04/19/18 08/24/18 History pantoprazole 40 mg PO BID #60 tab 04/23/18 08/24/18 Rx insulin detemir U-100 45 units SUBCUT QAM 06/04/18 08/24/18 History insulin detemir U-100 50 units SUBCUT HS 06/04/18 08/24/18 History B complex with C#20-folic acid 1 cap PO DAILY@1200 07/04/18 08/24/18 History [Renal Caps] doxazosin [Cardura] 1 mg PO DAILY@1200 07/04/18 08/24/18 History hydralazine 10 mg PO TIDM 07/04/18 08/24/18 History levothyroxine 250 mcg PO 5XWK 08/24/18 08/24/18 History Allergies Allergy/AdvReac Type Severity Reaction Status Date / Time metformin AdvReac Intermediate CONFUSION Verified 08/24/18 13:56 Past Med/Surg History Medical History BPH (benign prostatic hyperplasia) Hypothyroidism Diabetes (Chronic) Hypertensive urgency (Acute) Epistaxis (Chronic) Heart disease (Chronic) Secondary hyperparathyroidism of renal origin Anemia (Acute) End-stage renal disease on hemodialysis COPD (chronic obstructive pulmonary disease) AVF (arteriovenous fistula) Surgical History No pertinent past surgical history Family History Unknown Heart attack Diabetes Social History Preferred Language: Sami Communication Ability: Effective Beliefs That Will Affect Care: None marital status: Current Living Situation: Spouse Other Information That Helps Us Care for You: No Feels Safe at Home: Yes Safety Concerns: Feels Safe At This Time Smoking Status: Former smoker Hx Alcohol Use: No Hx Substance Use: No Review of Systems See HPI for pertinent positives & negatives. and A total of 10 systems reviewed and were otherwise negative Physical Exam Vital Signs Vital Signs - 24 hr 08/24/18 13:17 08/24/18 13:32 08/24/18 13:49 Temperature 36.8 C Temperature Source Oral Sepsis Recent Fever Within 48 Hours No Sepsis Action Taken by Nursing No Action Required Pulse Rate 59 L Pulse Rate [Right Apical] Pulse Rhythm Regular Pulse Rhythm [Right Apical] Pulse Strength Normal Pulse Strength [Right Apical] Respiratory Rate 20 Respiratory Effort / Characteristics Non-Labored Spontaneous Non-Labored Spontaneous Respiratory Depth Normal Normal Respiratory Pattern Regular Regular Blood Pressure 188/84 H Blood Pressure [Right Arm] Blood Pressure Mean 118 Blood Pressure Mean [Right Arm] Blood Pressure Position [Right Arm] Pulse Oximetry 95 95 Oxygen Delivery Method Room Air Room Air Room Air 08/24/18 14:09 08/24/18 14:58 08/24/18 17:01 Temperature Temperature Source Sepsis Recent Fever Within 48 Hours Sepsis Action Taken by Nursing Pulse Rate 60 Pulse Rate [Right Apical] 59 L 68 Pulse Rhythm Pulse Rhythm [Right Apical] Pulse Strength Pulse Strength [Right Apical] Respiratory Rate 16 16 18 Respiratory Effort / Characteristics Respiratory Depth Respiratory Pattern Blood Pressure 213/81 H Blood Pressure [Right Arm] 198/76 H 160/92 H Blood Pressure Mean Blood Pressure Mean [Right Arm] 116 114 Blood Pressure Position [Right Arm] Pulse Oximetry 94 97 93 Oxygen Delivery Method Room Air Room Air Room Air 08/24/18 17:17 08/24/18 19:20 Temperature 36.5 C 36.4 C L Temperature Source Oral Oral Sepsis Recent Fever Within 48 Hours Sepsis Action Taken by Nursing Pulse Rate Pulse Rate [Right Apical] 61 57 L Pulse Rhythm Pulse Rhythm [Right Apical] Regular Pulse Strength Pulse Strength [Right Apical] Normal Respiratory Rate 16 18 Respiratory Effort / Characteristics Non-Labored Spontaneous Respiratory Depth Normal Respiratory Pattern Regular Blood Pressure Blood Pressure [Right Arm] 199/83 H 193/84 H Blood Pressure Mean Blood Pressure Mean [Right Arm] 121 120 Blood Pressure Position [Right Arm] Sitting Semi-fowlers Pulse Oximetry 94 93 Oxygen Delivery Method Room Air Room Air GENERAL: Patient is in no acute distress. HEENT: No acute trauma, normocephalic atraumatic, mucous membranes moist, no nasal congestion, no scleral icterus. NECK: No stridor, no adenopathy, no meningismus, trachea is midline. LUNGS: Clear to auscultation bilaterally, no wheeze, no rhonchi, breath sounds equal. HEART: 3/6 systolic murmur, regular rate and rhythm ABDOMEN: Soft, nontender, bowel sounds positive, no hernias, no peritonitis. EXTREMITIES: No cyanosis, mild bilateral pedal edema, full range of motion of all the joints without pain or difficulty, no signs for acute trauma. NEUROLOGIC: Oriented x 3, no acute motor or sensory deficits, no focal weakness. SKIN: No rash, no jaundice, no diaphoresis. Course 1325: Past medical records reviewed. The patient was evaluated in room C10, and a complete history and physical examination were performed. 1344: I consulted Dr. Briceno - Nephrology. She will speak to the patient about setting up dialysis. 1442: I consulted Dr. Rausch [facility] Hospitalist. The patient will be reevaluated for hospitalization. 1448: I updated the patient and family on results and the current plan. The patient states that he is currently doing well. Consultations Consultation #1: I consulted Dr. Briceno - Nephrology. She will speak to the patient about setting up dialysis. Time: 13:44 Consultation #2: I consulted Dr. Rausch [facility] Hospitalist. The patient will be reevaluated for hospitalization. Time: 14:42 Administered Medications Calcium Acetate (Phoslo) 1,334 mg PO TIDM SHANTA Stop: 09/23/18 17:16 Last Admin: 08/24/18 18:45 Dose: 1,334 mg Documented by: [id number] Furosemide (Lasix) 80 mg PO BID17 SHANTA Stop: 09/23/18 17:29 Last Admin: 08/24/18 18:45 Dose: 80 mg Documented by: [id number] Hydralazine HCl (Apresoline) 10 mg PO TIDM SHANTA Stop: 09/23/18 17:16 Last Admin: 08/24/18 18:45 Dose: 10 mg Documented by: [id number] Medical Decision Making Differential Diagnosis Differential diagnosis: hyperkalemia, electrolyte imbalance, fluid overload, pulmonary edema, hyperglycemia, medication noncompliance Medical Records Attestation: I reviewed the patient's medical records. Home Medications Current Medication List: was personally reviewed by me Laboratory Data Attestation: I reviewed the patient's lab results. Result diagrams: 08/24/18 13:34 08/24/18 13:34 Lab Results 08/24/18 08/24/18 08/24/18 Range/Units 13:16 13:34 13:34 WBC 3.76 L (4.8-10.8) K/uL RBC 3.53 L (4.7-6.1) M/uL Hgb 8.5 L (14.0-18.0) g/dL POC Hgb (14.0-18.0) g/dl Hct 28.2 L (42-52) % POC Hct (42-52) % MCV 79.9 L (80-100) fL MCH 24.1 L (25-34) pg MCHC 30.1 L (32-36) g/dL RDW Std Deviation 53.5 H (36.4-46.3) fL RDW Coeff of Jose C 18.4 H (11.5-14.5) % Plt Count 136 (130-400) K/uL MPV 11.0 H (7.4-10.4) fL Immature Gran % (Auto) 0.3 % Neut % (Auto) 75.7 % Lymph % (Auto) 13.0 % [place] % (Auto) 7.2 % Eos % (Auto) 2.7 % Baso % (Auto) 1.1 % Immature Gran # (Auto) 0.01 (0.00-0.02) K/uL Neut # (Auto) 2.85 (1.4-6.5) K/uL Lymph # (Auto) 0.49 L (1.2-3.4) K/uL [place] # (Auto) 0.27 (0.11-0.59) K/uL Eos # (Auto) 0.10 (0-0.5) K/uL Baso # (Auto) 0.04 (0-0.2) K/uL Platelet Estimate Decreased (Normal) Poikilocytosis Present PT (9.0-12.0) Seconds INR (0.9-1.1) APTT (21.0-31.0) Seconds PTT Ratio POC Sodium (135-144) mEq/L Sodium 144 (136-145) mmol/L POC Potassium (3.3-5.0) mEq/L Potassium 4.0 (3.5-5.1) mmol/L POC Chloride (101-112) mEq/L Chloride 105 (98-107) mmol/L Carbon Dioxide 26 (21-32) mmol/L POC Total CO2 (24-31) mEq/l Anion Gap 12.0 H (3-11) POC Anion Gap (16-25) mmol/L POC BUN (7-18) mg/dl BUN 108 H (7-18) mg/dl Creatinine 12.50 H* (0.6-1.4) mg/dl POC Creatinine (0.6-1.3) mg/dl Est Cr Clr Drug Dosing 6.4 ml/min Est GFR ( Amer) 4.0 Est GFR (Non-Af Amer) 3.4 BUN/Creatinine Ratio 8.7 L (10-20) Glucose 260 H (70-99) mg/dl POC Glucose 276 H (70-99) POC Glucose (other) (70-99) mg/dl Calcium 8.7 (8.5-10.1) mg/dl POC Ioniz Calcium Kathleen (1.12-1.32) mmol/l Magnesium 2.1 (1.8-2.4) mg/dl Total Bilirubin 0.6 (0.2-1) mg/dl AST 11 L (15-37) U/L ALT 21 (12-78) U/L Alkaline Phosphatase 84 (45-117) U/L Troponin I 0.094 H* (0-0.045) ng/ml Total Protein 6.5 (6.4-8.2) gm/dl Albumin 3.1 L (3.4-5.0) gm/dl Globulin 3.4 (2.5-4.0) gm/dl Albumin/Globulin Ratio 0.9 (0.9-2) Urine Color Urine Appearance (Clear) Urine pH (4.5-7.5) Ur Specific [place] (1.000-1.030) Urine Protein (Negative) Urine Glucose (UA) (Negative) Urine Ketones (Negative) Urine Blood (Negative) Urine Nitrite (Negative) Urine Bilirubin (Negative) Urine Urobilinogen (Negative) Ur Leukocyte Esterase (Negative) Urine WBC (Auto) (0-5) /hpf Urine RBC (Auto) (0-4) /hpf U Hyaline Cast (Auto) (0-5) /lpf U Epithel Cells (Auto) (0-5) /lpf Urine Bacteria (Auto) (Negative) 08/24/18 08/24/18 08/24/18 Range/Units 13:34 13:47 17:55 WBC (4.8-10.8) K/uL RBC (4.7-6.1) M/uL Hgb (14.0-18.0) g/dL POC Hgb 8.8 L (14.0-18.0) g/dl Hct (42-52) % POC Hct 26 L (42-52) % MCV (80-100) fL MCH (25-34) pg MCHC (32-36) g/dL RDW Std Deviation (36.4-46.3) fL RDW Coeff of Jose C (11.5-14.5) % Plt Count (130-400) K/uL MPV (7.4-10.4) fL Immature Gran % (Auto) % Neut % (Auto) % Lymph % (Auto) % [place] % (Auto) % Eos % (Auto) % Baso % (Auto) % Immature Gran # (Auto) (0.00-0.02) K/uL Neut # (Auto) (1.4-6.5) K/uL Lymph # (Auto) (1.2-3.4) K/uL [place] # (Auto) (0.11-0.59) K/uL Eos # (Auto) (0-0.5) K/uL Baso # (Auto) (0-0.2) K/uL Platelet Estimate (Normal) Poikilocytosis PT 12.1 H (9.0-12.0) Seconds INR 1.2 H (0.9-1.1) APTT 27.8 (21.0-31.0) Seconds PTT Ratio 1.0 POC Sodium 141 (135-144) mEq/L Sodium (136-145) mmol/L POC Potassium 3.9 (3.3-5.0) mEq/L Potassium (3.5-5.1) mmol/L POC Chloride 101 (101-112) mEq/L Chloride (98-107) mmol/L Carbon Dioxide (21-32) mmol/L POC Total CO2 25 (24-31) mEq/l Anion Gap (3-11) POC Anion Gap 20.0 (16-25) mmol/L POC BUN 101 H* (7-18) mg/dl BUN (7-18) mg/dl Creatinine (0.6-1.4) mg/dl POC Creatinine 12.6 H* (0.6-1.3) mg/dl Est Cr Clr Drug Dosing ml/min Est GFR ( Amer) Est GFR (Non-Af Amer) BUN/Creatinine Ratio (10-20) Glucose (70-99) mg/dl POC Glucose 225 H (70-99) POC Glucose (other) 258 H (70-99) mg/dl Calcium (8.5-10.1) mg/dl POC Ioniz Calcium Kathleen 1.15 (1.12-1.32) mmol/l Magnesium (1.8-2.4) mg/dl Total Bilirubin (0.2-1) mg/dl AST (15-37) U/L ALT (12-78) U/L Alkaline Phosphatase (45-117) U/L Troponin I (0-0.045) ng/ml Total Protein (6.4-8.2) gm/dl Albumin (3.4-5.0) gm/dl Globulin (2.5-4.0) gm/dl Albumin/Globulin Ratio (0.9-2) Urine Color Urine Appearance (Clear) Urine pH (4.5-7.5) Ur Specific [place] (1.000-1.030) Urine Protein (Negative) Urine Glucose (UA) (Negative) Urine Ketones (Negative) Urine Blood (Negative) Urine Nitrite (Negative) Urine Bilirubin (Negative) Urine Urobilinogen (Negative) Ur Leukocyte Esterase (Negative) Urine WBC (Auto) (0-5) /hpf Urine RBC (Auto) (0-4) /hpf U Hyaline Cast (Auto) (0-5) /lpf U Epithel Cells (Auto) (0-5) /lpf Urine Bacteria (Auto) (Negative) 08/24/18 Range/Units 18:00 WBC (4.8-10.8) K/uL RBC (4.7-6.1) M/uL Hgb (14.0-18.0) g/dL POC Hgb (14.0-18.0) g/dl Hct (42-52) % POC Hct (42-52) % MCV (80-100) fL MCH (25-34) pg MCHC (32-36) g/dL RDW Std Deviation (36.4-46.3) fL RDW Coeff of Jose C (11.5-14.5) % Plt Count (130-400) K/uL MPV (7.4-10.4) fL Immature Gran % (Auto) % Neut % (Auto) % Lymph % (Auto) % [place] % (Auto) % Eos % (Auto) % Baso % (Auto) % Immature Gran # (Auto) (0.00-0.02) K/uL Neut # (Auto) (1.4-6.5) K/uL Lymph # (Auto) (1.2-3.4) K/uL [place] # (Auto) (0.11-0.59) K/uL Eos # (Auto) (0-0.5) K/uL Baso # (Auto) (0-0.2) K/uL Platelet Estimate (Normal) Poikilocytosis PT (9.0-12.0) Seconds INR (0.9-1.1) APTT (21.0-31.0) Seconds PTT Ratio POC Sodium (135-144) mEq/L Sodium (136-145) mmol/L POC Potassium (3.3-5.0) mEq/L Potassium (3.5-5.1) mmol/L POC Chloride (101-112) mEq/L Chloride (98-107) mmol/L Carbon Dioxide (21-32) mmol/L POC Total CO2 (24-31) mEq/l Anion Gap (3-11) POC Anion Gap (16-25) mmol/L POC BUN (7-18) mg/dl BUN (7-18) mg/dl Creatinine (0.6-1.4) mg/dl POC Creatinine (0.6-1.3) mg/dl Est Cr Clr Drug Dosing ml/min Est GFR ( Amer) Est GFR (Non-Af Amer) BUN/Creatinine Ratio (10-20) Glucose (70-99) mg/dl POC Glucose (70-99) POC Glucose (other) (70-99) mg/dl Calcium (8.5-10.1) mg/dl POC Ioniz Calcium Kathleen (1.12-1.32) mmol/l Magnesium (1.8-2.4) mg/dl Total Bilirubin (0.2-1) mg/dl AST (15-37) U/L ALT (12-78) U/L Alkaline Phosphatase (45-117) U/L Troponin I (0-0.045) ng/ml Total Protein (6.4-8.2) gm/dl Albumin (3.4-5.0) gm/dl Globulin (2.5-4.0) gm/dl Albumin/Globulin Ratio (0.9-2) Urine Color Yellow Urine Appearance Clear (Clear) Urine pH 6.0 (4.5-7.5) Ur Specific [place] 1.017 (1.000-1.030) Urine Protein 3+ H (Negative) Urine Glucose (UA) 2+ H (Negative) Urine Ketones Negative (Negative) Urine Blood Trace H (Negative) Urine Nitrite Negative (Negative) Urine Bilirubin Negative (Negative) Urine Urobilinogen Negative (Negative) Ur Leukocyte Esterase Negative (Negative) Urine WBC (Auto) 1-5 (0-5) /hpf Urine RBC (Auto) 0-4 (0-4) /hpf U Hyaline Cast (Auto) 1-5 (0-5) /lpf U Epithel Cells (Auto) 5-10 H (0-5) /lpf Urine Bacteria (Auto) Negative (Negative) Imaging Data Radiologist's Impression: Radiology results as stated below per my review and the radiologist's interpretation: XR chest 1V portable CLINICAL HISTORY: weakness COMPARISON STUDY: Chest radiograph July 04, 2018. FINDINGS: There is no pneumothorax or pleural effusion. Moderate cardiomegaly is unchanged. There is no evidence for pulmonary edema. Bibasilar opacities favor atelectasis. IMPRESSION: 1. Bibasilar opacities which favor atelectasis. An infectious process could appear similar although is considered less likely. 2. Moderate cardiomegaly. No evidence for pulmonary edema. Electronically signed by: Marcus Salazar M.D. 08/24/2018 2:23 PM ECG Data Attestation: I personally reviewed and interpreted this ECG as follows: Indication: SOB/dyspnea Rate (beats per minute): 59 Rhythm: sinus rhythm Findings: + 1st degree AV block, + RBBB and + T-wave inversion (inferior and anterior leads); no ST elevation Comparison ECG Date: from (07/04/18) Change: no significant change Blood Pressure Blood Pressure Findings: Elevated blood pressure Blood Pressure Disposition: further management by hospitalist [facility] Narrative There is no concerning leukocytosis. Hemoglobin is low at 8.5, this is baseline for the patient looking back at previous testing. Renal panel testing shows a high creatinine and BUN consistent with his dialysis need. The potassium was around 4. Glucose is slightly elevated in the mid 200s. There was no hepatitis. EKG showed a sinus rhythm, no acute ischemia. No change in the EKG compared to previous. Troponin was mildly elevated, the patient has a history of a mild troponin elevation at baseline. Chest film did not show any obvious CHF, no pneumonia. The patient presents with some shortness of breath, fluid overload and extremely tingling. He has not been dialyzed in over 2 weeks. He presents asking for dialysis. I spoke to his supervisor metalizing, I talked with case management. The patient is aware so far of his findings, his family is also aware. Hospitalization is required for dialysis. I did speak to the on-call hospitalist. The patient is currently resting comfortably. Impression & Plan Fluid overload, Shortness of breath, Missed dialysis Discharge Plan Visit Data *Final* Discharge Date/Time: 08/24/18 17:01 Chief Complaint: Dizziness ED Provider: Shayan Klein Discharge Problem: Fluid overload, Shortness of breath, Missed dialysis Patient Disposition: Admitted As Inpatient Discharge Instructions Interventions: ED Discharge Assessment Last Done: 08/24/18 17:01 Discharge Problem: Fluid overload Qualifiers: Hypervolemia type: unspecified Qualified Code(s): E87.70 - Fluid overload, unspecified The scribe's documentation has been prepared under my direction and personally reviewed by me in its entirety. I confirm that the note above accurately reflects all work, treatment, procedures, and medical decision making performed by me.
[2018-08-24] MEDS ORDERED: ONDANSETRON INJ 2 MG/ML 2 ML VIAL IV PRN (17:17)
[2018-08-24] MEDS ORDERED: ACETAMINOPHEN 325 MG TAB PO PRN (17:17)
[2018-08-24] MEDS ORDERED: POLYETHYLENE (MIRALAX) 17 GM PACK PO PRN (17:17)
[2018-08-24 18:21] LABS: Appearance Urine Clear (Clear); Bacteria Urine Automated Negative (Negative); Bilirubin Urine Negative (Negative); Blood Urine Trace (Negative); Color Urine Yellow; Glucose Urine UA 2+ (Negative); Ketones Urine Negative (Negative); Leukocyte Esterase Urine Negative (Negative); Nitrite Urine Negative (Negative); Protein Urine 3+ (Negative); RBC Urine Automated 0-4 /hpf (0-4); Specific Gravity Urine 1.017 (1.000-1.030); Urobilinogen Urine Negative (Negative)
[2018-08-24] MEDS: FUROSEMIDE 80 MG TAB PO SCH (18:45)
[2018-08-24] MEDS: CALCIUM ACETATE 667 MG CAP PO SCH (18:45)
[2018-08-24] MEDS: HydrALAZINE 10 MG TAB PO SCH (18:45)
[2018-08-24] MEDS ORDERED: HydrALAZINE HCL 20 MG/ML VIAL IV PRN (18:53)
[2018-08-24 19:28] LABS: INR 1.2 (0.9-1.1); Partial Thromboplastin Time 27.8 Seconds (21.0-31.0); Prothrombin Time 12.1 Seconds (9.0-12.0)
[2018-08-24] MEDS ORDERED: GLUCAGON FOR INJ 1 MG VIAL IM PRN (19:45)
[2018-08-24] MEDS ORDERED: DEXTROSE 50% 50 ML SYRINGE IV PRN (19:45)
[2018-08-24] MEDS ORDERED: GLUCOSE 40% GEL 15 GM TUBE PO PRN (19:45)
[2018-08-24] MEDS ORDERED: GLUCOSE 10 TABS/TUBE PO PRN (19:45)
[2018-08-24] MEDS: AMLODIPINE BESYLATE 5 MG TAB PO SCH (20:51)
[2018-08-24] MEDS: LABETALOL HCL 200 MG TAB PO SCH (20:51)
[2018-08-24] MEDS: PANTOprazole 40 MG TAB PO SCH (20:51)
[2018-08-24] MEDS: GABAPENTIN 100 MG CAP PO SCH (20:52)
[2018-08-24] MEDS: ROSUVASTATIN CALCIUM 20 MG TAB PO SCH (20:52)
[2018-08-24] MEDS: HEPARIN SOD 5,000 UNIT/0.5 ML VIAL SQ SCH (20:54)
[2018-08-24] MEDS: INSULIN ASPART 100 UNITS/ML 3 ML PEN SC SCH (20:58)
[2018-08-24] MEDS ORDERED: INSULIN DETEMIR SQ SCH (21:00)
[2018-08-24] MEDS ORDERED: INSULIN DETEMIR FLEXPEN/FLEX TOUCH 100 UNITS/ML 3ML SC SCH (21:00)
[2018-08-25] MEDS: LEVOTHYROXINE SODIUM 125 MCG TABLET PO SCH (06:26)
[2018-08-25] MEDS: HEPARIN SOD 5,000 UNIT/0.5 ML VIAL SQ SCH ×3 (06:26→21:00)
[2018-08-25] MEDS ORDERED: SODIUM CHLORIDE 0.9% 1000ML 1,000 ML IV PRN (07:00)
[2018-08-25] MEDS ORDERED: EPOETIN ALFA 10,000 UNITS/ML VIAL IV SCH (07:00)
[2018-08-25] MEDS: CARBOHYDRATES FOR HYPOGLYCEMIA PO PRN ×3 (07:34→14:36)
[2018-08-25 08:11] LABS: Hematocrit (blood only) 26.3 % (42-52); Hemoglobin 7.9 g/dL (14.0-18.0); Mean Corpuscular Volume 79.5 fL (80-100); Mean Platelet Volume 10.5 fL (7.4-10.4); Platelet Count 128 K/uL (130-400); RDW Coefficient of Variation 18.5 % (11.5-14.5); RDW Standard Deviation 53.7 fL (36.4-46.3); Red Blood Count 3.31 M/uL (4.7-6.1); White Blood Count 3.78 K/uL (4.8-10.8)
[2018-08-25] MEDS: LABETALOL HCL 200 MG TAB PO SCH ×2 (08:17→20:59)
[2018-08-25] MEDS: TAMSULOSIN HCL 0.4 MG CAP PO SCH (08:17)
[2018-08-25] MEDS: HydrALAZINE 10 MG TAB PO SCH ×3 (08:18→17:09)
[2018-08-25] MEDS: FUROSEMIDE 80 MG TAB PO SCH ×2 (08:18→17:08)
[2018-08-25] MEDS: CALCIUM ACETATE 667 MG CAP PO SCH ×3 (08:19→17:08)
[2018-08-25] MEDS: DOCUSATE SODIUM 100 MG CAP PO SCH (08:19)
[2018-08-25] MEDS: PANTOprazole 40 MG TAB PO SCH ×2 (08:19→20:59)
[2018-08-25 08:47] LABS: Calcium 8.7 mg/dl (8.5-10.1); Creatinine Clr Calc Pharmacy 6.3 ml/min; Est GFR (African American) 3.9; Est GFR (Non-African American) 3.3; Potassium 3.5 mmol/L (3.5-5.1)
[2018-08-25] MEDS: INSULIN ASPART 100 UNITS/ML 3 ML PEN SC SCH ×4 (08:49→21:00)
[2018-08-25 08:56] LABS: Troponin I 0.1 ng/ml (0-0.045)
[2018-08-25] MEDS ORDERED: INSULIN DETEMIR SQ SCH (09:00)
[2018-08-25] MEDS ORDERED: INSULIN DETEMIR FLEXPEN/FLEX TOUCH 100 UNITS/ML 3ML SC SCH ×2 (09:00→21:00)
[2018-08-25 09:41] LABS: Hepatitis B Surface Antibody Non-Immune
[2018-08-25 09:52] LABS: Hepatitis B Surface Antigen Neg (Neg)
--- NOTE | 2018-08-25 11:31 | Nephrology Progress Note ---
Date of Service August 25, 2018 Assessment & Plan (1) End-stage renal disease on hemodialysis: 78-year-old gentlemen with end-stage renal disease secondary to hypertensive nephropathy, has been on hemodialysis Saturday, , Saturday. He has been noncompliant with dialysis and repeatedly missing dialysis sessions. Did not have dialysis last almost 2 weeks, however, currently electrolyte and volume status seems acceptable. -- AVF functioning well -- Augie is tolerating HD treatment without complications, Qb acceptable -- UF goal 2-3 L -- BP acceptable -- Electrolytes appropriate -- Medications appropriate for kidney function --Epogen 03733 units with dialysis --continue on his home antihypertensive medications --continue on phosphate binder and Nephrocaps (2) Hypertension: (3) Anemia: (4) Secondary hyperparathyroidism of renal origin: (5) Diabetes: Subjective No acute events overnight. Augie was seen and evaluated during hemodialysis today. He was tolerating the procedure well. Review of Systems All systems reviewed & are unremarkable except as noted in HPI & below Physical Exam Vital Signs (Past 24 Hours): Last Vital Signs Temp 36.4 C L 08/25/18 09:36 Pulse 54 L 08/25/18 11:20 Resp 17 08/25/18 07:33 BP 156/70 H 08/25/18 11:20 Pulse Ox 95 08/25/18 07:33 Constitutional: well developed; no acute distress Eyes: no scleral abnormality and no corneal abnormality ENMT: Mouth: no oral mucosal abnormality and oral mucous membranes not dry Neck: normal visual inspection and trachea midline Respiratory: normal respiratory effort; no respiratory distress Au scultation: lungs clear to auscultation bilaterally and + rales Cardiovascular: Heart Sounds: normal S1, normal S2 and + murmur Extremities: + AV fistula Gastrointestinal (Abdomen): Inspection/Auscultation: abdomen normal to insp ection Percussion/Palpation: abdomen soft; abdomen nontender Musculoskeletal: Extremities: no cyanosis and no clubbing Skin: no rashes and no wound Neurologic: Motor/Sensory: no tremor and no asterixis Psychiatric: Orientation: alert Affect: euthymic affect Results & Data Laboratory Results Laboratory Results - last 24 hr 08/24/18 08/24/18 08/24/18 13:16 13:34 13:34 WBC 3.76 L RBC 3.53 L Hgb 8.5 L POC Hgb Hct 28.2 L POC Hct MCV 79.9 L MCH 24.1 L MCHC 30.1 L RDW Std Deviation 53.5 H RDW Coeff of Jose C 18.4 H Plt Count 136 MPV 11.0 H Immature Gran % (Auto) 0.3 Neut % (Auto) 75.7 Lymph % (Auto) 13.0 Starr % (Auto) 7.2 Eos % (Auto) 2.7 Baso % (Auto) 1.1 Immature Gran # (Auto) 0.01 Neut # (Auto) 2.85 Lymph # (Auto) 0.49 L Starr # (Auto) 0.27 Eos # (Auto) 0.10 Baso # (Auto) 0.04 Platelet Estimate Decreased Poikilocytosis Present PT INR APTT PTT Ratio POC Sodium Sodium 144 POC Potassium Potassium 4.0 POC Chloride Chloride 105 Carbon Dioxide 26 POC Total CO2 Anion Gap 12.0 H POC Anion Gap POC BUN BUN 108 H Creatinine 12.50 H* POC Creatinine Est Cr Clr Drug Dosing 6.4 Est GFR ( Amer) 4.0 Est GFR (Non-Af Amer) 3.4 BUN/Creatinine Ratio 8.7 L Glucose 260 H POC Glucose 276 H POC Glucose (other) Calcium 8.7 POC Ioniz Calcium Kathleen Magnesium 2.1 Total Bilirubin 0.6 AST 11 L ALT 21 Alkaline Phosphatase 84 Troponin I 0.094 H* Total Protein 6.5 Albumin 3.1 L Globulin 3.4 Albumin/Globulin Ratio 0.9 Urine Color Urine Appearance Urine pH Ur Specific [place] Urine Protein Urine Glucose (UA) Urine Ketones Urine Blood Urine Nitrite Urine Bilirubin Urine Urobilinogen Ur Leukocyte Esterase Urine WBC (Auto) Urine RBC (Auto) U Hyaline Cast (Auto) U Epithel Cells (Auto) Urine Bacteria (Auto) Hep Bs Antigen Hep Bs Antibody Hep Bs Antibody, Quant 08/24/18 08/24/18 08/24/18 13:34 13:47 17:55 WBC RBC Hgb POC Hgb 8.8 L Hct POC Hct 26 L MCV MCH MCHC RDW Std Deviation RDW Coeff of Jose C Plt Count MPV Immature Gran % (Auto) Neut % (Auto) Lymph % (Auto) Starr % (Auto) Eos % (Auto) Baso % (Auto) Immature Gran # (Auto) Neut # (Auto) Lymph # (Auto) Starr # (Auto) Eos # (Auto) Baso # (Auto) Platelet Estimate Poikilocytosis PT 12.1 H INR 1.2 H APTT 27.8 PTT Ratio 1.0 POC Sodium 141 Sodium POC Potassium 3.9 Potassium POC Chloride 101 Chloride Carbon Dioxide POC Total CO2 25 Anion Gap POC Anion Gap 20.0 POC BUN 101 H* BUN Creatinine POC Creatinine 12.6 H* Est Cr Clr Drug Dosing Est GFR ( Amer) Est GFR (Non-Af Amer) BUN/Creatinine Ratio Glucose POC Glucose 225 H POC Glucose (other) 258 H Calcium POC Ioniz Calcium Kathleen 1.15 Magnesium Total Bilirubin AST ALT Alkaline Phosphatase Troponin I Total Protein Albumin Globulin Albumin/Globulin Ratio Urine Color Urine Appearance Urine pH Ur Specific [place] Urine Protein Urine Glucose (UA) Urine Ketones Urine Blood Urine Nitrite Urine Bilirubin Urine Urobilinogen Ur Leukocyte Esterase Urine WBC (Auto) Urine RBC (Auto) U Hyaline Cast (Auto) U Epithel Cells (Auto) Urine Bacteria (Auto) Hep Bs Antigen Hep Bs Antibody Hep Bs Antibody, Quant 08/24/18 08/24/18 08/25/18 18:00 20:57 07:25 WBC RBC Hgb POC Hgb Hct POC Hct MCV MCH MCHC RDW Std Deviation RDW Coeff of Jose C Plt Count MPV Immature Gran % (Auto) Neut % (Auto) Lymph % (Auto) Starr % (Auto) Eos % (Auto) Baso % (Auto) Immature Gran # (Auto) Neut # (Auto) Lymph # (Auto) Starr # (Auto) Eos # (Auto) Baso # (Auto) Platelet Estimate Poikilocytosis PT INR APTT PTT Ratio POC Sodium Sodium POC Potassium Potassium POC Chloride Chloride Carbon Dioxide POC Total CO2 Anion Gap POC Anion Gap POC BUN BUN Creatinine POC Creatinine Est Cr Clr Drug Dosing Est GFR ( Amer) Est GFR (Non-Af Amer) BUN/Creatinine Ratio Glucose POC Glucose 216 H 59 L* POC Glucose (other) Calcium POC Ioniz Calcium Kathleen Magnesium Total Bilirubin AST ALT Alkaline Phosphatase Troponin I Total Protein Albumin Globulin Albumin/Globulin Ratio Urine Color Yellow Urine Appearance Clear Urine pH 6.0 Ur Specific [place] 1.017 Urine Protein 3+ H Urine Glucose (UA) 2+ H Urine Ketones Negative Urine Blood Trace H Urine Nitrite Negative Urine Bilirubin Negative Urine Urobilinogen Negative Ur Leukocyte Esterase Negative Urine WBC (Auto) 1-5 Urine RBC (Auto) 0-4 U Hyaline Cast (Auto) 1-5 U Epithel Cells (Auto) 5-10 H Urine Bacteria (Auto) Negative Hep Bs Antigen Hep Bs Antibody Hep Bs Antibody, Quant 08/25/18 08/25/18 08/25/18 07:28 07:46 07:46 WBC 3.78 L RBC 3.31 L Hgb 7.9 L POC Hgb Hct 26.3 L POC Hct MCV 79.5 L MCH 23.9 L MCHC 30.0 L RDW Std Deviation 53.7 H RDW Coeff of Jose C 18.5 H Plt Count 128 L MPV 10.5 H Immature Gran % (Auto) Neut % (Auto) Lymph % (Auto) Starr % (Auto) Eos % (Auto) Baso % (Auto) Immature Gran # (Auto) Neut # (Auto) Lymph # (Auto) Starr # (Auto) Eos # (Auto) Baso # (Auto) Platelet Estimate Poikilocytosis PT INR APTT PTT Ratio POC Sodium Sodium 144 POC Potassium Potassium 3.5 POC Chloride Chloride 108 H Carbon Dioxide 28 POC Total CO2 Anion Gap 9.0 POC Anion Gap POC BUN BUN 115 H Creatinine 12.80 H* D POC Creatinine Est Cr Clr Drug Dosing 6.3 Est GFR ( Amer) 3.9 Est GFR (Non-Af Amer) 3.3 BUN/Creatinine Ratio 9.0 L Glucose 41 L* POC Glucose 58 L* POC Glucose (other) Calcium 8.7 POC Ioniz Calcium Kathleen Magnesium Total Bilirubin AST ALT Alkaline Phosphatase Troponin I 0.100 H* Total Protein Albumin Globulin Albumin/Globulin Ratio Urine Color Urine Appearance Urine pH Ur Specific [place] Urine Protein Urine Glucose (UA) Urine Ketones Urine Blood Urine Nitrite Urine Bilirubin Urine Urobilinogen Ur Leukocyte Esterase Urine WBC (Auto) Urine RBC (Auto) U Hyaline Cast (Auto) U Epithel Cells (Auto) Urine Bacteria (Auto) Hep Bs Antigen Hep Bs Antibody Hep Bs Antibody, Quant 08/25/18 08/25/18 08/25/18 07:48 08:14 08:58 WBC RBC Hgb POC Hgb Hct POC Hct MCV MCH MCHC RDW Std Deviation RDW Coeff of Jose C Plt Count MPV Immature Gran % (Auto) Neut % (Auto) Lymph % (Auto) Starr % (Auto) Eos % (Auto) Baso % (Auto) Immature Gran # (Auto) Neut # (Auto) Lymph # (Auto) Starr # (Auto) Eos # (Auto) Baso # (Auto) Platelet Estimate Poikilocytosis PT INR APTT PTT Ratio POC Sodium Sodium POC Potassium Potassium POC Chloride Chloride Carbon Dioxide POC Total CO2 Anion Gap POC Anion Gap POC BUN BUN Creatinine POC Creatinine Est Cr Clr Drug Dosing Est GFR ( Amer) Est GFR (Non-Af Amer) BUN/Creatinine Ratio Glucose POC Glucose 42 L* 162 H POC Glucose (other) Calcium POC Ioniz Calcium Kathleen Magnesium Total Bilirubin AST ALT Alkaline Phosphatase Troponin I Total Protein Albumin Globulin Albumin/Globulin Ratio Urine Color Urine Appearance Urine pH Ur Specific [place] Urine Protein Urine Glucose (UA) Urine Ketones Urine Blood Urine Nitrite Urine Bilirubin Urine Urobilinogen Ur Leukocyte Esterase Urine WBC (Auto) Urine RBC (Auto) U Hyaline Cast (Auto) U Epithel Cells (Auto) Urine Bacteria (Auto) Hep Bs Antigen Neg Hep Bs Antibody Non-Immune Hep Bs Antibody, Quant < 3.10 L (1) Hypertension Hypertension type: essential hypertension Qualified Code(s): I10 - Essential (primary) hypertension (2) Diabetes Diabetes mellitus type: type 2 Diabetes mellitus chcf insulin use: with chcf use Diabetes mellitus complication status: with kidney complications Diabetes mellitus complication detail: with chronic kidney disease Chronic kidney disease stage: on chronic dialysis Qualified Code(s): E11.22 - Type 2 diabetes mellitus with diabetic chronic kidney disease; N18.6 - End stage renal disease; Z79.4 - apricot washer (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
[2018-08-25] MEDS: DOXAZOSIN MESYLATE 1 MG TAB PO SCH (14:20)
[2018-08-25] MEDS: NEPHROCAPS PO SCH (14:20)
[2018-08-25] MEDS: LISINOPRIL 40 MG TAB PO SCH (14:21)
--- NOTE | 2018-08-25 19:54 | Hospitalist Progress Note ---
Date of Service August 25, 2018 Assessment & Plan (1) End stage renal disease: see below (2) Fluid overload: due to missing HD for two weeks no pulmonary edema, no distress, has edema in legs Received HD on 08/25 Symptomatically improved -can likely dc to home tomorrow but will check AM labs (3) Missed dialysis: missed for two weeks still makes urine with Lasix discussed the dangers of missing HD, can from electrolyte abnormalities, volume overload Dr. Briceno had a long discussion with him as well, asked if he wanted to continue after a long talk he stated that he wants to continue on HD (4) Anemia: chronic, due to ESRD received EPO today Hb is slightly low to stable at 7.9 h/o GI bleeding, no current symptoms (5) Diabetes: With hypoglycemia on multiple occasions today Likely due to receiving usual insulin dosing with missing HD and low appetite -dc AM levemir dose -decrease PM Levemir to 30 units -dcd carb coverage -continue accuchecks (6) Hypertension: continue home regimen of labetalol, po hydralazine, lasix, lisinopril , Cardura, amlodipine Hydralazine IV PRN (7) CAD (coronary artery disease): no chest pain, no EKG changes continue home regimen tropon mildly elevated but not trending upward and is consistent with previous checks, likely elevated in setting of ESRD (8) BPH (benign prostatic hyperplasia): continue Cardura, but also on Flomax? Will check to see if this is correct (9) Hypothyroidism: continue LT4 (10) DVT prophylaxis: Heparin SQ Dispo-remain on tele Subjective Pt feeling tired, otherwise no complaints. No CP or SOB, no headache or lightheadedness, no abd pain. Says he is eating more today than he has in many days. Glucose repeatedly low today. Received HD today Review of Systems All systems reviewed & are unremarkable except as noted in HPI & below Physical Exam Vital Signs (Past 24 Hours): Last Vital Signs Temp 36.9 C 08/25/18 15:51 Pulse 56 L 08/25/18 16:00 Resp 18 08/25/18 15:51 BP 165/111 H 08/25/18 15:51 Pulse Ox 96 08/25/18 15:51 Constitutional: WD/WN, vitals as above Eyes: PERRL, conjunctivae normal, anicteric sclerae ENMT: external ear and nose normal, oropharynx normal Neck: trachea midline, no thyromegaly Respiratory: normal respiratory effort; no respiratory distress Auscultation: + rales (bases bilaterally); no crackles, no rhonchi and no wheezes Cardiovascular: Rate/Rhythm: regular rate and regular rhythm Heart Sounds: no murmur Extremities: + pedal edema (pitting, 1+) Gastrointestinal (Abdomen): normal bowel sounds, soft, nontender, no hepatosplenomegaly Musculoskeletal: no cyanosis or clubbing, extremities motor strength 5/5 Skin: no rashes, warm and dry Psychiatric: A+Ox3, euthymic affect Results & Data Laboratory Results 08/25/18 08/25/18 08/25/18 Range/Units 16:19 14:52 14:34 WBC (4.8-10.8) K/uL RBC (4.7-6.1) M/uL Hgb (14.0-18.0) g/dL Hct (42-52) % MCV (80-100) fL MCH (25-34) pg MCHC (32-36) g/dL RDW Std Deviation (36.4-46.3) fL RDW Coeff of Jose C (11.5-14.5) % Plt Count (130-400) K/uL MPV (7.4-10.4) fL Sodium (136-145) mmol/L Potassium (3.5-5.1) mmol/L Chloride (98-107) mmol/L Carbon Dioxide (21-32) mmol/L Anion Gap (3-11) BUN (7-18) mg/dl Creatinine (0.6-1.4) mg/dl Est Cr Clr Drug Dosing ml/min Est GFR ( Amer) Est GFR (Non-Af Amer) BUN/Creatinine Ratio (10-20) Glucose (70-99) mg/dl POC Glucose 104 H 79 65 L* (70-99) Calcium (8.5-10.1) mg/dl Troponin I (0-0.045) ng/ml Hep Bs Antigen (Neg) Hep Bs Antibody Hep Bs Antibody, Quant (>or=10mIU/mL Immune) mIU/mL 08/25/18 08/25/18 08/25/18 Range/Units 14:14 14:13 08:58 WBC (4.8-10.8) K/uL RBC (4.7-6.1) M/uL Hgb (14.0-18.0) g/dL Hct (42-52) % MCV (80-100) fL MCH (25-34) pg MCHC (32-36) g/dL RDW Std Deviation (36.4-46.3) fL RDW Coeff of Jose C (11.5-14.5) % Plt Count (130-400) K/uL MPV (7.4-10.4) fL Sodium (136-145) mmol/L Potassium (3.5-5.1) mmol/L Chloride (98-107) mmol/L Carbon Dioxide (21-32) mmol/L Anion Gap (3-11) BUN (7-18) mg/dl Creatinine (0.6-1.4) mg/dl Est Cr Clr Drug Dosing ml/min Est GFR ( Amer) Est GFR (Non-Af Amer) BUN/Creatinine Ratio (10-20) Glucose (70-99) mg/dl POC Glucose 62 L* 61 L* (70-99) Calcium (8.5-10.1) mg/dl Troponin I (0-0.045) ng/ml Hep Bs Antigen Neg (Neg) Hep Bs Antibody Non-Immune Hep Bs Antibody, Quant < 3.10 L (>or=10mIU/mL Immune) mIU/mL 08/25/18 08/25/18 08/25/18 Range/Units 08:14 07:48 07:46 WBC (4.8-10.8) K/uL RBC (4.7-6.1) M/uL Hgb (14.0-18.0) g/dL Hct (42-52) % MCV (80-100) fL MCH (25-34) pg MCHC (32-36) g/dL RDW Std Deviation (36.4-46.3) fL RDW Coeff of Jose C (11.5-14.5) % Plt Count (130-400) K/uL MPV (7.4-10.4) fL Sodium 144 (136-145) mmol/L Potassium 3.5 (3.5-5.1) mmol/L Chloride 108 H (98-107) mmol/L Carbon Dioxide 28 (21-32) mmol/L Anion Gap 9.0 (3-11) BUN 115 H (7-18) mg/dl Creatinine 12.80 H* D (0.6-1.4) mg/dl Est Cr Clr Drug Dosing 6.3 ml/min Est GFR ( Amer) 3.9 Est GFR (Non-Af Amer) 3.3 BUN/Creatinine Ratio 9.0 L (10-20) Glucose 41 L* (70-99) mg/dl POC Glucose 162 H 42 L* (70-99) Calcium 8.7 (8.5-10.1) mg/dl Troponin I 0.100 H* (0-0.045) ng/ml Hep Bs Antigen (Neg) Hep Bs Antibody Hep Bs Antibody, Quant (>or=10mIU/mL Immune) mIU/mL 08/25/18 08/25/18 08/25/18 Range/Units 07:46 07:28 07:25 WBC 3.78 L (4.8-10.8) K/uL RBC 3.31 L (4.7-6.1) M/uL Hgb 7.9 L (14.0-18.0) g/dL Hct 26.3 L (42-52) % MCV 79.5 L (80-100) fL MCH 23.9 L (25-34) pg MCHC 30.0 L (32-36) g/dL RDW Std Deviation 53.7 H (36.4-46.3) fL RDW Coeff of Jose C 18.5 H (11.5-14.5) % Plt Count 128 L (130-400) K/uL MPV 10.5 H (7.4-10.4) fL Sodium (136-145) mmol/L Potassium (3.5-5.1) mmol/L Chloride (98-107) mmol/L Carbon Dioxide (21-32) mmol/L Anion Gap (3-11) BUN (7-18) mg/dl Creatinine (0.6-1.4) mg/dl Est Cr Clr Drug Dosing ml/min Est GFR ( Amer) Est GFR (Non-Af Amer) BUN/Creatinine Ratio (10-20) Glucose (70-99) mg/dl POC Glucose 58 L* 59 L* (70-99) Calcium (8.5-10.1) mg/dl Troponin I (0-0.045) ng/ml Hep Bs Antigen (Neg) Hep Bs Antibody Hep Bs Antibody, Quant (>or=10mIU/mL Immune) mIU/mL 08/24/18 Range/Units 20:57 WBC (4.8-10.8) K/uL RBC (4.7-6.1) M/uL Hgb (14.0-18.0) g/dL Hct (42-52) % MCV (80-100) fL MCH (25-34) pg MCHC (32-36) g/dL RDW Std Deviation (36.4-46.3) fL RDW Coeff of Jose C (11.5-14.5) % Plt Count (130-400) K/uL MPV (7.4-10.4) fL Sodium (136-145) mmol/L Potassium (3.5-5.1) mmol/L Chloride (98-107) mmol/L Carbon Dioxide (21-32) mmol/L Anion Gap (3-11) BUN (7-18) mg/dl Creatinine (0.6-1.4) mg/dl Est Cr Clr Drug Dosing ml/min Est GFR ( Amer) Est GFR (Non-Af Amer) BUN/Creatinine Ratio (10-20) Glucose (70-99) mg/dl POC Glucose 216 H (70-99) Calcium (8.5-10.1) mg/dl Troponin I (0-0.045) ng/ml Hep Bs Antigen (Neg) Hep Bs Antibody Hep Bs Antibody, Quant (>or=10mIU/mL Immune) mIU/mL (1) Fluid overload Hypervolemia type: unspecified Qualified Code(s): E87.70 - Fluid overload, unspecified (2) Diabetes Diabetes mellitus type: type 2 Diabetes mellitus long term acute care registered nurse insulin use: with correction use Diabetes mellitus complication status: with kidney complications Diabetes mellitus complication detail: with chronic kidney disease Chronic k idney disease stage: on chronic dialysis Qualified Code(s): E11.22 - Type 2 diabetes mellitus with diabetic chronic kidney disease; N18.6 - End stage renal disease; Z79.4 - half-way (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 (3) Hypertension Hypertension type: essential hypertension Qualified Code(s): I10 - Essential (primary) hypertension (4) CAD (coronary artery disease) Coronary Disease-Associated Artery/Lesion type: [place] artery [place] vs. transplanted heart: [place] heart Associated angina: without angina Qualified Code(s): I25.10 - Atherosclerotic heart disease of [place] coronary artery without angina pectoris (5) BPH (benign prostatic hyperplasia) Lower urinary tract symptom presence: unspecified whether lower urinary tract symptoms present Qualified Code(s): N40.0 - Benign prostatic hyperplasia without lower urinary tract symptoms (6) Hypothyroidism Hypothyroidism type: acquired Qualified Code(s): E03.9 - Hypothyroidism, unspecified
[2018-08-25] MEDS: GABAPENTIN 100 MG CAP PO SCH (20:59)
[2018-08-25] MEDS: AMLODIPINE BESYLATE 5 MG TAB PO SCH (20:59)
[2018-08-25] MEDS: ROSUVASTATIN CALCIUM 20 MG TAB PO SCH (20:59)
[2018-08-26 05:51] LABS: Hemoglobin 7.8 g/dL (14.0-18.0); Mean Corpuscular Volume 79.8 fL (80-100); Mean Platelet Volume 10.2 fL (7.4-10.4); Platelet Count 113 K/uL (130-400); RDW Coefficient of Variation 18.2 % (11.5-14.5); RDW Standard Deviation 53.5 fL (36.4-46.3); Red Blood Count 3.26 M/uL (4.7-6.1); White Blood Count 3.35 K/uL (4.8-10.8)
[2018-08-26 06:31] LABS: BUN Creatinine Ratio 7.1 (10-20); Calcium 7.7 mg/dl (8.5-10.1); Creatinine Clr Calc Pharmacy 10.5 ml/min; Est GFR (African American) 7.4; Est GFR (Non-African American) 6.3; Potassium 3.4 mmol/L (3.5-5.1)
[2018-08-26] MEDS: LEVOTHYROXINE SODIUM 125 MCG TABLET PO SCH (06:35)
[2018-08-26] MEDS: HEPARIN SOD 5,000 UNIT/0.5 ML VIAL SQ SCH ×2 (06:35→13:44)
[2018-08-26] MEDS ORDERED: SODIUM CHLORIDE 0.9% 1000ML 1,000 ML IV PRN (07:00)
[2018-08-26] MEDS: INSULIN ASPART 100 UNITS/ML 3 ML PEN SC SCH ×2 (07:29→13:42)
[2018-08-26] MEDS: CARBOHYDRATES FOR HYPOGLYCEMIA PO PRN (07:30)
[2018-08-26] MEDS: LABETALOL HCL 200 MG TAB PO SCH (07:32)
[2018-08-26] MEDS: DOCUSATE SODIUM 100 MG CAP PO SCH (07:32)
[2018-08-26] MEDS: FUROSEMIDE 80 MG TAB PO SCH (07:32)
[2018-08-26] MEDS: CALCIUM ACETATE 667 MG CAP PO SCH ×2 (07:33→13:43)
[2018-08-26] MEDS: TAMSULOSIN HCL 0.4 MG CAP PO SCH (07:33)
[2018-08-26] MEDS: PANTOprazole 40 MG TAB PO SCH (07:33)
[2018-08-26] MEDS: HydrALAZINE 10 MG TAB PO SCH ×2 (07:33→13:42)
--- NOTE | 2018-08-26 09:21 | Nephrology Progress Note ---
Date of Service August 26, 2018 Assessment & Plan (1) End-stage renal disease on hemodialysis: 78-year-old gentlemen with end-stage renal disease secondary to hypertensive nephropathy who has been on hemodialysis Saturday, , Saturday. He has been noncompliant with dialysis and repeatedly missing dialysis sessions. Did not have dialysis last almost 2 weeks. Treatment was completed yesterday without complications. -- AVF functioning well -- Augie is scheduled for an abridged treatment today to resume his TTS schedule, orders have been entered into the EMR and discussed with the patient and dialysis nurse -- UF goal 1-2 L -- BP acceptable -- Electrolytes appropriate -- Medications appropriate for kidney function (2) Hypertension: -- BP and volume status acceptable -- No changes to home antihypertensive Rx (3) Anemia: -- Epogen 00696 units provided with HD yesterday for anemia of CKD (4) Secondary hyperparathyroidism of renal origin: -- Appropriately maintained on phosphate binder and Nephrocaps (5) Diabetes: Subjective No acute events overnight. Augie tolerated HD well yesterday. He states that he feels well and is ready for discharge home. He was initially resistant to the idea of an additional dialysis treatment today but after discussing the benefits he agreed. Review of Systems All systems reviewed & are unremarkable except as noted in HPI & below Physical Exam Vital Signs (Past 24 Hours): Last Vital Signs Temp 36.5 C 08/26/18 08:10 Pulse 57 L 08/26/18 08:10 Resp 18 08/26/18 08:10 BP 140/63 08/26/18 08:10 Pulse Ox 90 08/26/18 08:10 Constitutional: well developed; no acute distress Eyes: no scleral abnormality and no corneal abnormality ENMT: Mouth: no oral mucosal abnormality and oral mucous membranes not dry Neck: normal visual inspection and trachea midline Respiratory: normal respiratory effort; no respiratory distress Auscultation: lungs clear to auscultation bilaterally and + rales Cardiovascular: Heart Sounds: normal S1, normal S2 and + murmur Extremities: + AV fistula Gastrointestinal (Abdomen): Inspection/Auscultation: abdomen normal to inspection Percussion/Palpation: abdomen soft; abdomen nontender Musculoskeletal: Extremities: no cyanosis and no clubbing Skin: no rashes and no wound Neurologic: Motor/Sensory: no tremor and no asterixis Psychiatric: Orientation: alert Affect: euthymic affect Results & Data Laboratory Results Laboratory Results - last 24 hr 08/25/18 08/25/18 08/25/18 08:58 14:13 14:14 WBC RBC Hgb Hct MCV MCH MCHC RDW Std Deviation RDW Coeff of Jose C Plt Count MPV Sodium Potassium Chloride Carbon Dioxide Anion Gap BUN Creatinine Est Cr Clr Drug Dosing Est GFR ( Amer) Est GFR (Non-Af Amer) BUN/Creatinine Ratio Glucose POC Glucose 61 L* 62 L* Calcium Hep Bs Antigen Neg Hep Bs Antibody Non-Immune Hep Bs Antibody, Quant < 3.10 L 08/25/18 08/25/18 08/25/18 14:34 14:52 16:19 WBC RBC Hgb Hct MCV MCH MCHC RDW Std Deviation RDW Coeff of Jose C Plt Count MPV Sodium Potassium Chloride Carbon Dioxide Anion Gap BUN Creatinine Est Cr Clr Drug Dosing Est GFR ( Amer) Est GFR (Non-Af Amer) BUN/Creatinine Ratio Glucose POC Glucose 65 L* 79 104 H Calcium Hep Bs Antigen Hep Bs Antibody Hep Bs Antibody, Quant 08/25/18 08/26/18 08/26/18 20:10 01:49 05:39 WBC 3.35 L RBC 3.26 L Hgb 7.8 L Hct 26.0 L MCV 79.8 L MCH 23.9 L MCHC 30.0 L RDW Std Deviation 53.5 H RDW Coeff of Jose C 18.2 H Plt Count 113 L MPV 10.2 Sodium Potassium Chloride Carbon Dioxide Anion Gap BUN Creatinine Est Cr Clr Drug Dosing Est GFR ( Amer) Est GFR (Non-Af Amer) BUN/Creatinine Ratio Glucose POC Glucose 120 H 121 H Calcium Hep Bs Antigen Hep Bs Antibody Hep Bs Antibody, Quant 08/26/18 08/26/18 08/26/18 05:39 07:25 07:26 WBC RBC Hgb Hct MCV MCH MCHC RDW Std Deviation RDW Coeff of Jose C Plt Count MPV Sodium 139 Potassium 3.4 L Chloride 102 Carbon Dioxide 31 Anion Gap 6.0 BUN 54 H D Creatinine 7.52 H* D Est Cr Clr Drug Dosing 10.5 Est GFR ( Amer) 7.4 Est GFR (Non-Af Amer) 6.3 BUN/Creatinine Ratio 7.1 L Glucose 64 L POC Glucose 45 L* 50 L* Calcium 7.7 L Hep Bs Antigen Hep Bs Antibody Hep Bs Antibody, Quant 08/26/18 08/26/18 07:45 08:16 WBC RBC Hgb Hct MCV MCH MCHC RDW Std Deviation RDW Coeff of Jose C Plt Count MPV Sodium Potassium Chloride Carbon Dioxide Anion Gap BUN Creatinine Est Cr Clr Drug Dosing Est GFR ( Amer) Est GFR (Non-Af Amer) BUN/Creatinine Ratio Glucose POC Glucose 63 L* 107 H Calcium Hep Bs Antigen Hep Bs Antibody Hep Bs Antibody, Quant (1) Hypertension Hypertension type: essential hypertension Qualified Code(s): I10 - Essential (primary) hypertension (2) Diabetes Diabetes mellitus type: type 2 Diabetes mellitus penitentiary insulin use: with termination clerk use Diabetes mellitus complication status: with kidney complications Diabetes mellitus complication detail: with chronic kidney disease Chronic kidney disease stage: on chronic dialysis Qualified Code(s): E11.22 - Type 2 diabetes mellitus with diabetic chronic kidney disease; N18.6 - End stage renal disease; Z79.4 - terminal superintendent (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
[2018-08-26 13:30] VITALS: BP 160/60; PULSE 55; TEMP 97.5; O2SAT 93
[2018-08-26] MEDS: NEPHROCAPS PO SCH (13:43)
[2018-08-26] MEDS: DOXAZOSIN MESYLATE 1 MG TAB PO SCH (13:43)
[2018-08-26] MEDS: LISINOPRIL 40 MG TAB PO SCH (13:43)
--- NOTE | 2018-08-26 15:42 | Discharge Summary ---
Date of Service August 26, 2018 Admission HPI Per Admitting Provider 78 yo male with history of ESRD on HD as well as diabetes and HTN. He comes to the ED today complaining of some dyspnea on exertion, peripheral edema. He has missed HD for the past two weeks. When asked why, he states that he had "stuff going on, did not have time to go." Discussed danger of missing HD, explained that he can without treatment. Dr. Briceno saw him in the ED as well, she had a discussion about whether he even wanted to continue on HD. After some time he said yes. She plans for HD tomorrow. Surprisingly his electrolytes were stable and he was not in respiratory distress. He does make urine with Lasix TID which is probably why he did as well as he did. He denies chest pain, abdominal pain, vomiting, diarrhea, constipation. He is compliant with his insulin regimen at home of Levemir. Principal Diagnosis ESRD, Missed Dialysis Discharge Exam Constitutional WD/WN, vitals as above Eyes PERRL, conjunctivae normal, anicteric sclerae ENMT external ear and nose normal, oropharynx normal Neck trachea midline, no thyromegaly Respiratory normal respiratory effort; no respiratory distress Auscultation: + rales (bases bilaterally); no crackles, no rhonchi and no wheezes Cardiovascular Rate/Rhythm: regular rate and regular rhythm Heart Sounds: no murmur Extremities: + pedal edema (pitting, 1+) Gastrointestinal (Abdomen) normal bowel sounds, soft, nontender, no hepatosplenomegaly Musculoskeletal no cyanosis or clubbing, extremities motor strength 5/5 Skin no rashes, warm and dry Psychiatric A+Ox3, euthymic affect Discharge Data Allergies Allergy/AdvReac Type Severity Reaction Status Date / Time metformin AdvReac Intermediate CONFUSION Verified 08/24/18 13:56 Consultations 08/24/18 14:35 ED Decision to Admit Stat 08/24/18 17:17 Consult Case Management - Discharge Planning Routine Consult Nephrology Routine Ordered Studies CXR Hospital Course (1) Fluid overload: due to missing HD for two weeks no pulmonary edema, no distress, has edema in legs which is improved s/p HD x 2 Received HD on 08/25 and a shortened session on 08/26 Symptomatically improved Dc to home and resume usual TTrSat HD treatments (2) End stage renal disease: see above (3) Missed dialysis: missed for two weeks still makes urine with Lasix discussed the dangers of missing HD, can from electrolyte abnormalities, volume overload Dr. Briceno had a long discussion with him as well, asked if he wanted to continue after a long talk he stated that he wants to continue on HD (4) Anemia: chronic, due to ESRD received EPO this admission Hb is slightly low and stable at 7.8 h/o GI bleeding, no current symptoms (5) Diabetes: With hypoglycemia in the mornings during admission Likely due to receiving usual insulin dosing (total of 95 units Levemir daily) with missing HD and low appetite Appetite has improved. Still had AM hypoglycemia after cutting his basal insulin down by >50% -Advised pt to ONLY take Levemir 15 units qhs and continue checking glucose at home--> if still low in the AM, instructed to take glucose tablet or drink orange juice; if starts going > 150 in the AM, advised to call his doctor for advice on how to uptitrate his insulin again (6) Hypertension: BPs high at times -continue home regimen of labetalol, po hydralazine, lasix, lisinopril, Cardura, amlodipine (7) CAD (coronary artery disease): no chest pain, no EKG changes continue home regimen troponin mildly elevated but not trending upward and is consistent with previous checks, likely elevated in setting of ESRD (8) BPH (benign prostatic hyperplasia): continue Cardura, but also Flomax on home med list? It does not appear he has been prescribed Flomax since last fall, but Cardura more recently -dc FLomax (9) Hypothyroidism: continue LT4 (10) DVT prophylaxis: Heparin SQ Dispo-stable for dc to home Total Time Total Time Spent Total Time Spent (In Minutes): >30 min Total Time Includes: Examination of the Patient, Discharge Planning and Medication Reconciliation Discharge Plan Discharge Items Patient Disposition: Home - Self-Care Reason For Visit: ESRD, MISSED HD FOR TWO WEEKS Discharge Diagnosis: ESRD, missed dialysis Condition: Good Discharge Goals: Improve function and Therapeutic intervention Activity: Resume your previous activity Bathing: No limitations Exercise/Sports: As tolerated Driving/Machine Use: No limitations Non-emergency contact: Primary Care Provider Call non-emergency contact if: you have any medication questions and your symptoms worsen Follow-up/Referrals: Mahsa Wang, DO [Primary Care Provider] - 09/03/18 9:40 am (Please, follow up with Dr. Wang on SaturdaySeptember 03 at 9:40 am. *If you need to change this appointment, call the office at [phone].) Diet: Carb Consistent or DM2 and Dialysis Renal Addtl Provider Instructions: You were admitted due to missing dialysis for 2 weeks. You had 2 sessions of dialysis while you were here and can now return to your usual schedule. Your blood sugars were very low while you were here and your insulin dose was cut down by a lot. Please only take Levemir 15 units at bedtime and NO INSULIN IN THE MORNING for now. If your blood sugars get to be higher than 150 in the morning, then you can increase your insulin dose back up slowly--> PLEASE CALL YOUR DOCTOR FOR ADVICE ON HOW TO ADJUST YOUR INSULIN. Please follow up with your PCP as scheduled for you in 1 week. Prescriptions: Continued levothyroxine 200 mcg Tablet 250 mcg PO 5XWK RF: 0 furosemide 80 mg tablet 80 mg PO BID RF: 0 amlodipine 10 mg tablet 10 mg PO HS RF: 0 docusate sodium 100 mg Capsule 200 mg PO QAM RF: 0 gabapentin 100 mg capsule 100 mg PO HS RF: 0 labetalol 100 mg tablet 400 mg PO BID RF: 0 lisinopril 40 mg tablet 40 mg PO DAILY@1200 RF: 0 rosuvastatin 20 mg tablet 20 mg PO QPM RF: 0 calcium acetate 667 mg capsule 1,334 mg PO TIDM RF: 0 levothyroxine 200 mcg tablet 200 mcg PO 2XWK RF: 0 pantoprazole 40 mg Tablet,Delayed Release (Dr/Ec) 40 mg PO BID Qty: 60 RF: 2 Renal Caps 1 mg Capsule 1 cap PO DAILY@1200 RF: 0 hydralazine 10 mg tablet 10 mg PO TIDM RF: 0 doxazosin [Cardura] 1 mg tablet 1 mg PO DAILY@1200 RF: 0 Changed insulin detemir U-100 100 unit/mL solution 15 unit subcut HS Qty: 0 RF: 0 Discontinued insulin detemir U-100 100 unit/mL solution 45 units subcut QAM RF: 0 tamsulosin 0.4 mg capsule 0.4 mg PO QAM RF: 0 Stand-Alone Forms: My [facility] Discharge Orders: Discharge Order (Routine); Ordered 08/26/18 Ordered By: Phylicia Alan Admission Data Admit Date/Time: 08/24/18 15:58 Attending Provider: Phylicia Alan Admit Provider: Raphael Kemp Primary Care Provider: Mahsa Wang Other Providers: Prashanth Rausch Fahima Service: Telemetry Other Interventions: Discharge Summary Assessment (RN) Last Done: 08/26/18 14:54 Pending Studies at Discharge: No
[2018-08-30] MEDS ORDERED: LEVOTHYROXINE SODIUM 200 MCG TABLET PO SCH (06:30)
== END 2018-08-26 16:32 | disposition home or self-care (01) | DRG 640 ==
LOC: ED 13:06 → SUATTDRO 15:58 → 2E 15:58

== ENCOUNTER 2018-10-31 10:02 | Inpatient (IN) ==
[2018-10-31 11:33] LABS: Mean Corpuscular Hgb Conc 30.3 g/dL (32-36)
--- NOTE | 2018-10-31 11:35 | XRay Report ---
XR chest 1V portable CLINICAL HISTORY: weakness COMPARISON STUDY: Chest radiograph October 05, 2018. FINDINGS: Moderate cardiac megaly is noted. No evidence for pulmonary edema. Linear left midlung opac ity favors atelectasis or scarring. There is no consolidation. The appearance of the chest is unchang ed. IMPRESSION: No acute cardiopulmonary findings. No change in appearance of the chest. Electronically signed by: Marcus Salazar M.D. 10/31/2018 11:33 AM
[2018-10-31 11:40] LABS: INR 1.2 (0.9-1.1); Prothrombin Time 11.8 Seconds (9.0-12.0)
[2018-10-31 11:43] LABS: Mean Corpuscular Volume 86.4 fL (80-100); RDW Standard Deviation 66.5 fL (36.4-46.3); Red Blood Count 3.82 M/uL (4.7-6.1); White Blood Count 3.74 K/uL (4.8-10.8)
[2018-10-31 11:47] LABS: Albumin Level 3.4 gm/dl (3.4-5.0); BUN Creatinine Ratio 4.6 (10-20); Bilirubin,Total 0.7 mg/dl (0.2-1); Calcium 10.3 mg/dl (8.5-10.1); Creatinine Clr Calc Pharmacy 13.5 ml/min; Est GFR (African American) 10.3; Est GFR (Non-African American) 8.9; Globulin 3.3 gm/dl (2.5-4.0); Magnesium 2.2 mg/dl (1.8-2.4); Potassium 3.2 mmol/L (3.5-5.1); Total Protein 6.7 gm/dl (6.4-8.2); Troponin I 0.15 ng/ml (0-0.045)
[2018-10-31 11:55] LABS: Anisocytosis Present; Basophils # (auto) 0.01 K/uL (0-0.2); Basophils % (auto) 0.3 %; Eosinophils # (auto) 0.12 K/uL (0-0.5); Eosinophils % (auto) 3.2 %; Immature Granulocytes # (auto) 0.01 K/uL (0.00-0.02); Immature Granulocytes % (auto) 0.3 %; Lymphocytes % (auto) 13.4 %; Mean Platelet Volume 11.4 fL (7.4-10.4); Monocytes % (auto) 13.4 %; Neutrophils % (auto) 69.4 %; Ovalocytes 1+; Platelet Count 122 K/uL (130-400); Platelet Estimate Decreased (Normal)
[2018-10-31 12:06] LABS: T4 Free Thyroxine 1.11 ng/dl (0.8-1.6)
[2018-10-31 13:29] LABS: Appearance Urine Clear (Clear); Bacteria Urine Automated Negative (Negative); Bilirubin Urine Negative (Negative); Blood Urine 1+ (Negative); Color Urine Yellow; Epithelial Cell Urine Auto 20-30 /lpf (0-5); Glucose Urine UA 2+ (Negative); Ketones Urine Negative (Negative); Leukocyte Esterase Urine Negative (Negative); Nitrite Urine Negative (Negative); Protein Urine 4+ (Negative); RBC Urine Automated 0-4 /hpf (0-4); Specific Gravity Urine 1.016 (1.000-1.030); Urobilinogen Urine Negative (Negative)
--- NOTE | 2018-10-31 13:57 | CT Scan Report ---
CT head/brain wo con CT DOSE: 537.48 mGy.cm HISTORY: Mental status change recurrent falls TECHNIQUE: Multiaxial CT images of the head were performed without the use of intravenous contrast. A dose lowering technique was utilized adhering to the principles of ALARA. Comparison: 06/20/2017 Findings: Postoperative changes of the sinuses including antral window placement and hypertrophic milton nge of the nasal turbinates. Scattered mucosal thickening with moderate polypoid change of the maxill celeste sinuses. Mild hyperplastic change nasal turbinates. The calvarium and skull base are intact. The ventricles and sulci are within normal limits. There is no mass, hematoma, midline shift, or acute in farct. Age-related chronic small vessel change Impression: No acute intracranial abnormality. Age-related chronic small vessel change. Postoperative and chronic sinus changes of all major sinuses. The above report was generated using voice recognition software. It may contain grammatical, syntax or spelling errors. Electronically signed by: Osmany Marte M.D. 10/31/2018 1:55 PM
[2018-10-31] MEDS ORDERED: OPTIRAY 320 125ml IV PRN (15:06)
--- NOTE | 2018-10-31 15:21 | CT Scan Report ---
CT ANGIOGRAM OF THE CHEST CLINICAL HISTORY: Difficult chest pain, shortness of breath, hypoxia. Possible pulmonary embolism. COMPARISON STUDY: February 2016 TECHNIQUE: Following the IV administration of 87 mL of Optiray-320, CT angiogram of the thorax was pe rformed from the thoracic inlet to the lung bases utilizing the pulmonary embolus protocol. Images ar e reviewed in the axial, sagittal, and coronal planes. IV contrast was administered without complicat ion. MIP imaging was performed. A dose lowering technique was utilized adhering to the principles of ALARA. CT DOSE: 450.92 mGy.cm FINDINGS: No pathologically enlarged axillary mediastinal or hilar lymph nodes were visualized. The ascending thoracic aorta measures 38 mm. There is suboptimal lower lobe pulmonary nodule opacification. There is respiratory motion artifact. There are no pulmonary artery filling defects to indicate acute pulmonary embolism. Given the technic al limitations of the study, correlation with leg ultrasonography should be considered if there is a strong clinical suspicion over the presence of pulmonary embolism. There are small bilateral pleural effusions. There are dependent atelectatic changes. There is no focal pulmonary consolidation to indicate a pneu monia. There is lingular atelectasis. There is equivocal minor interstitial edema The heart is enlarged with coronary artery calcifications. There is upper abdominal ascites. IMPRESSION: 1. Technically limited study secondary to respiratory motion artifact 2. No central emboli identified. Suboptimal visualization of lower lobe pulmonary artery branches. Co rrelation with leg ultrasonography should be considered as a strong clinical suspicion over the prese nce of pulmonary embolism 3. Cardiomegaly and coronary artery calcifications. 4. Upper abdominal ascites 5. Lingular atelectasis Electronically signed by: Gino Gu M.D. 10/31/2018 3:20 PM
--- NOTE | 2018-10-31 15:38 | History & Physical Report ---
Date of Service October 31, 2018 Assessment & Plan (1) Fluid overload: The patient does make urine and will be given intravenous Lasix. Consult nephrology to initiate hemodialysis. Monitor urine output. Present on Admission?: Yes (2) Acute on chronic respiratory failure: Patient is 86% on room air. He is currently on oxygen at 2 L/min. We will titrate as needed. Treat fluid overload (3) Falls: The family states he has had worsening falls and imbalance. He now has an altered mental status. Consult neurology. OT and PT assessments have been requested Present on Admission?: Yes (4) Altered mental status: The patient is oriented to name and time. He believes he is at the [facility]. He is mildly lethargic but moves all extremities and has no focal motor deficits. Present on Admission?: Yes (5) Missed dialysis: Causing mild fluid overload. Consult nephrology to initiate hemodialysis again Present on Admission?: Yes (6) End stage renal disease: Hemodialysis dependent. Serial lab studies (7) Hypokalemia: Oral replacement. Serial labs (8) Diabetes: Diabetic and renal diet. Continue Levemir at bedtime. Sliding scale coverage as needed History of Present Illness Chief Complaint: Weakness, falls, altered mental status Primary Care Provider: Mahsa Wang DO 78-year-old male with end-stage renal disease on hemodialysis. He missed one dialysis session earlier this week. He has developed weakness and altered mental status according to family members. He is falling quite a bit recently. He is hypoxic on room air at 86%. Chest CTA is negative for PE. He appears to be mildly volume overloaded at this time. He is mildly hypokalemic also. Troponin is chronically elevated. EKG reveals no acute changes. 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 He will be on telemetry. Consider cardiology consultation. Nephrology will be consulted to manage his hemodialysis and neurology will be consulted to evaluate his problems with altered mental status/imbalance/ambulatory dysfunction. OT and PT assessments have been requested. Allergies Allergy/AdvReac Type Severity Reaction Status Date / Time metformin AdvReac Intermediate CONFUSION Verified 10/31/18 12:51 Home Medications Home Medications Medication Instructions Recorded Confirmed Type calcium acetate 1,334 mg PO TIDM 04/19/18 10/31/18 History docusate sodium 100 mg PO QAM 04/19/18 10/31/18 History furosemide 80 mg PO BID 04/19/18 10/31/18 History gabapentin 100 mg PO HS 04/19/18 10/31/18 History labetalol 400 mg PO BID 04/19/18 10/31/18 History lisinopril 40 mg PO DAILY@1200 04/19/18 10/31/18 History rosuvastatin 20 mg PO QPM 04/19/18 10/31/18 History pantoprazole 40 mg PO BID #60 tab 04/23/18 10/31/18 Rx Renal Caps 1 mg PO DAILY@1200 07/04/18 10/31/18 History doxazosin [Cardura] 1 mg PO DAILY@1200 07/04/18 10/31/18 History hydralazine 10 mg PO TIDM 07/04/18 10/31/18 History levothyroxine 200 mcg PO QAM 08/24/18 10/31/18 History amlodipine 10 mg PO HS 10/05/18 10/31/18 History insulin detemir U-100 25 units SUBCUT HS 10/05/18 10/31/18 History levothyroxine 50 mcg PO 2XWK 10/05/18 10/31/18 History tamsulosin 0.4 mg PO QAM 10/05/18 10/31/18 History tramadol 50 mg PO QPM 10/05/18 10/31/18 History Prevagen 1 cap PO QDL 10/31/18 10/31/18 History Past Med/Surg History Medical History BPH (benign prostatic hyperplasia) Hypothyroidism Diabetes (Chronic) Hypertensive urgency (Acute) Epistaxis (Chronic) Heart disease (Chronic) Secondary hyperparathyroidism of renal origin Anemia (Acute) End-stage renal disease on hemodialysis COPD (chronic obstructive pulmonary disease) AVF (arteriovenous fistula) Surgical History No pertinent past surgical history Family History Unknown Myocardial infarction Diabetes Social History Preferred Language: Mongolian Communication Ability: Effective Beliefs That Will Affect Care: None marital status: Current Living Situation: Spouse Feels Safe at Home: Yes Smoking Status: Former smoker Tobacco Type: cigarettes Second Hand Exposure: No Hx Alcohol Use: No Hx Substance Use: No Review of Systems Review of Systems: All systems reviewed & are unremarkable except as noted in HPI & below Respiratory: + dyspnea; no cough, no sputum production and no wheezing Neurologic: + gait abnormality, + unsteadiness, + falls, + generalized weakness and + confusion Physical Exam Constitutional: WD/WN, vitals as above Oriented to name and time. He believes he is at the [facility]. Eyes: PERRL, conjunctivae normal, anicteric sclerae ENMT: external ear and nose normal, oropharynx normal Neck: trachea midline, no thyromegaly Respiratory: no respiratory distress, no labored breathing, no retractions and does not use accessory muscles Bibasilar inspiratory rales. No rhonchi. No wheezing. No dullness to percussion Cardiovascular: Rate/Rhythm: regular rate and regular rhythm Heart Sounds: normal S1 and normal S2 Grade 2/6 systolic murmur at the apex Gastrointestinal (Abdomen): normal bowel sounds, soft, nontender, no hepatosplenomegaly Musculoskeletal: no cyanosis or clubbing, extremities motor strength 5/5 He complains of left calf discomfort but exam is unremarkable. He does have some chronic venous stasis changes bilateral lower extremities Skin: Chronic venous stasis changes bilateral lower extremities below the knees Neurologic: moves all extremities; no focal motor deficits Mildly lethargic. No apparent focal motor deficits. Results & Data Vital Signs (Past 12 Hours) Vital Signs Temp Pulse Resp BP Pulse Ox 10/31/18 14:30 53 L 20 182/76 H 97 10/31/18 14:00 52 L 22 191/73 H 97 10/31/18 13:31 54 L 16 185/65 H 10/31/18 13:30 54 L 16 96 10/31/18 13:00 57 L 21 183/121 H 95 10/31/18 12:31 57 L 19 167/65 H 96 10/31/18 12:30 58 L 15 95 10/31/18 12:01 57 L 21 196/72 H 96 10/31/18 12:00 56 L 20 96 10/31/18 11:30 57 L 18 196/74 H 97 10/31/18 11:23 57 L 17 178/68 H 87 L 10/31/18 11:00 55 L 15 05/31/19 10:30 55 L 15 10/31/18 10:23 36.5 C 57 L 20 182/78 H 86 L 10/31/18 10:13 56 L 18 98 10/31/18 10:10 55 L 14 182/78 H 96 10/31/18 09:54 86 L Laboratory Results 10/31/18 11:00 10/31/18 11:00 (1) Fluid overload Hypervolemia type: unspecified Qualified Code(s): E87.70 - Fluid overload, unspecified (2) Falls Encounter type: initial encounter Qualified Code(s): W19.XXXA - Unspecified fall, initial encounter (3) Diabetes Diabetes mellitus type: type 2 Diabetes mellitus manager lsw insulin use: with prison use Diabetes mellitus complication status: with kidney complications Diabetes mellitus complication detail: with chronic kidney disease Chronic kidney disease stage: on chronic dialysis Qualified Code(s): E11.22 - Type 2 diabetes mellitus with diabetic chronic kidney disease; N18.6 - End stage renal disease; Z79.4 - 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
--- NOTE | 2018-10-31 16:54 | Emergency Department Note ---
Entered by Lucian Jackson acting as a scribe for Kendall Romano DO History of Present Illness General Chief complaint: Altered Mental Status Source: patient and family History of Present Illness Onset (ago): day(s) 1 Location: head (global) Pain Consistency: + other (denies any pain; persistent confusion) Quality: + other (falls, confusion) Associated symptoms: + other (on dialysis; denies urinary symptoms or abdominal pain); no cough The patient is a 78 year old male on dialysis who presents to the Emergency Room with multiple falls and persistent confusion beginning yesterday. The at bedside reports that the patient receives dialysis Saturday//Saturday. He missed his dialysis three days ago but received it yesterday. After dialysis yesterday, the states that he started to become unsteady, and he has fallen five times. She also states that since dialysis yesterday the patient has seemed confused, agitated and not himself. The patient denies any pain from the falls, coughing, abdominal pain, urinary symptoms, or new medications. The states that the patient makes his own urine, and he wears 2L supplemental oxygen at night. Home Medications Home Medications Medication Instructions Recorded Confirmed Type calcium acetate 1,334 mg PO TIDM 04/19/18 10/31/18 History docusate sodium 100 mg PO QAM 04/19/18 10/31/18 History furosemide 80 mg PO BID 04/19/18 10/31/18 History gabapentin 100 mg PO HS 04/19/18 10/31/18 History labetalol 400 mg PO BID 04/19/18 10/31/18 History lisinopril 40 mg PO DAILY@1200 04/19/18 10/31/18 History rosuvastatin 20 mg PO QPM 04/19/18 10/31/18 History pantoprazole 40 mg PO BID #60 tab 04/23/18 10/31/18 Rx Renal Caps 1 mg PO DAILY@1200 07/04/18 10/31/18 History doxazosin [Cardura] 1 mg PO DAILY@1200 07/04/18 10/31/18 History hydralazine 10 mg PO TIDM 07/04/18 10/31/18 History levothyroxine 200 mcg PO QAM 08/24/18 10/31/18 History amlodipine 10 mg PO HS 10/05/18 10/31/18 History insulin detemir U-100 25 units SUBCUT HS 10/05/18 10/31/18 History levothyroxine 50 mcg PO 2XWK 10/05/18 10/31/18 History tamsulosin 0.4 mg PO QAM 10/05/18 10/31/18 History tramadol 50 mg PO QPM 10/05/18 10/31/18 History Prevagen 1 cap PO QDL 10/31/18 10/31/18 History Allergies Allergy/AdvReac Type Severity Reaction Status Date / Time metformin AdvReac Intermediate CONFUSION Verified 10/31/18 12:51 Past Med/Surg History Medical History Hypokalemia (Acute) Altered mental status (Acute) Acute on chronic respiratory failure (Acute) Fluid overload (Acute) Missed dialysis (Acute) BPH (benign prostatic hyperplasia) Hypothyroidism Diabetes (Chronic) Hypertensive urgency (Acute) Epistaxis (Chronic) Heart disease (Chronic) Secondary hyperparathyroidism of renal origin Anemia (Acute) End-stage renal disease on hemodialysis COPD (chronic obstructive pulmonary disease) AVF (arteriovenous fistula) Surgical History No pertinent past surgical history Family History Unknown Myocardial infarction Diabetes Social History Preferred Language: Upper Sorbian Communication Ability: Effective [employer] Required: No Beliefs That Will Affect Care: None marital status: Current Living Situation: Spouse Other Information That Helps Us Care for You: No Feels Safe at Home: Yes Safety Concerns: Feels Safe At This Time Smoking Status: Former smoker Tobacco Type: cigarettes Do You Dip or Chew Tobacco: No Second Hand Exposure: No Tobacco Cessation Education Requested by Patient: No Hx Alcohol Use: No Hx Substance Use: No Review of Systems See HPI for pertinent positives & negatives. and A total of 10 systems reviewed and were otherwise negative Physical Exam Vital Signs Vital Signs - 24 hr 10/31/18 09:54 10/31/18 10:10 10/31/18 10:13 Temperature Temperature Source Sepsis New/Unexplained Change in Mental Status Sepsis Action Taken by Nursing Pulse Rate 55 L 56 L Pulse Rate from SpO2 Sensor 55 L 57 L Pulse Rhythm Pulse Strength Respiratory Rate 14 18 Respiratory Effort / Characteristics Respiratory Depth Blood Pressure 182/78 H Blood Pressure Mean 112 Blood Pressure Position Pulse Oximetry 86 L 96 98 Oxygen Delivery Method Nasal Cannula 10/31/18 10:23 10/31/18 10:30 10/31/18 11:00 Temperature 36.5 C Temperature Source Oral Sepsis New/Unexplained Change in Mental Status Yes Sepsis Action Taken by Nursing No Action Required Pulse Rate 57 L 55 L 55 L Pulse Rate from SpO2 Sensor Pulse Rhythm Regular Pulse Strength Normal Respiratory Rate 20 15 15 Respiratory Effort / Characteristics Non-Labored Spontaneous Respiratory Depth Normal Blood Pressure 182/78 H Blood Pressure Mean 112 Blood Pressure Position Sitting Pulse Oximetry 86 L Oxygen Delivery Method Room Air 10/31/18 11:13 10/31/18 11:23 10/31/18 11:30 Temperature Temperature Source Sepsis New/Unexplained Change in Mental Status Sepsis Action Taken by Nursing Pulse Rate 57 L 57 L Pulse Rate from SpO2 Sensor 59 L 58 L Pulse Rhythm Pulse Strength Respiratory Rate 17 18 Respiratory Effort / Characteristics Respiratory Depth Blood Pressure 178/68 H 196/74 H Blood Pressure Mean 104 114 Blood Pressure Position Pulse Oximetry 87 L 97 Oxygen Delivery Method Room Air 10/31/18 12:00 10/31/18 12:01 10/31/18 12:30 Temperature Temperature Source Sepsis New/Unexplained Change in Mental Status Sepsis Action Taken by Nursing Pulse Rate 56 L 57 L 58 L Pulse Rate from SpO2 Sensor 57 L 57 L 58 L Pulse Rhythm Pulse Strength Respiratory Rate 20 21 15 Respiratory Effort / Characteristics Respiratory Depth Blood Pressure 196/72 H Blood Pressure Mean 113 Blood Pressure Position Pulse Oximetry 96 96 95 Oxygen Delivery Method 10/31/18 12:31 10/31/18 13:00 10/31/18 13:30 Temperature Temperature Source Sepsis New/Unexplained Change in Mental Status Sepsis Action Taken by Nursing Pulse Rate 57 L 57 L 54 L Pulse Rate from SpO2 Sensor 57 L 57 L 54 L Pulse Rhythm Pulse Strength Respiratory Rate 19 21 16 Respiratory Effort / Characteristics Respiratory Depth Blood Pressure 167/65 H 183/121 H Blood Pressure Mean 99 141 Blood Pressure Position Pulse Oximetry 96 95 96 Oxygen Delivery Method 10/31/18 13:31 10/31/18 14:00 10/31/18 14:30 Temperature Temperature Source Sepsis New/Unexplained Change in Mental Status Sepsis Action Taken by Nursing Pulse Rate 54 L 52 L 53 L Pulse Rate from SpO2 Sensor 52 L 52 L Pulse Rhythm Pulse Strength Respiratory Rate 16 22 20 Respiratory Effort / Characteristics Respiratory Depth Blood Pressure 185/65 H 191/73 H 182/76 H Blood Pressure Mean 105 112 111 Blood Pressure Position Pulse Oximetry 97 97 Oxygen Delivery Method 10/31/18 14:40 10/31/18 14:50 Temperature Temperature Source Sepsis New/Unexplained Change in Mental Status Sepsis Action Taken by Nursing Pulse Rate 52 L 53 L Pulse Rate from SpO2 Sensor 52 L 54 L Pulse Rhythm Pulse Strength Respiratory Rate 21 15 Respiratory Effort / Characteristics Respiratory Depth Blood Pressure Blood Pressure Mean Blood Pressure Position Pulse Oximetry 97 97 Oxygen Delivery Method GENERAL: chronically ill-appearing, lying in bed, disheveled, sleeping, difficult to arouse EYE EXAM: normal conjunctiva, PERRL and EOM's intact OROPHARYNX: no exudate, no erythema, lips, buccal mucosa, and tongue normal and mucous membranes are moist NECK: supple, no nuchal rigidity, no adenopathy, non-tender LUNGS: Diminished breath sounds at the bilateral lung bases. Normal chest wall mechanics HEART: no murmurs, S1 normal and S2 normal ABDOMEN: abdomen soft, non-tender, normo-active bowel sounds, no masses, no rebound or guarding. BACK: Back is symmetrical on inspection and there is no deformity, no midline tenderness, no CVA tenderness. SKIN: no rashes and no bruising UPPER EXTREMITIES: fistula in left mid-arm with positive thrill/bruit. LOWER EXTREMITIES: No pitting edema. NEURO EXAM: Oriented to person but not to year. Difficult to arouse, awakens to sternal rub. Nonfocal in upper and lower extremities. No drift. Course ED COURSE: Vital signs were reviewed and showed hypoxia The patients medical record was reviewed. The patient was here on October 05, and he is a dialysis patient. The above diagnostic studies were performed and reviewed. ED treatments and interventions as stated above. 1103: The patient was evaluated in room B5. A complete history and physical examination was performed. 1213: I updated the patient. 1416: I consulted Dr. Fisher [facility] Hospitalist. The patient will be reevaluated for hospitalization. Based on the patients age, coexisting illnesses, exam and lab findings the decision to treat as an inpatient was made. The patient remained stable while under my care. The patient will be evaluated for further management. Administered Medications Ioversol (Optiray 320 125ml) 87 ml IV ONCE PRN PRN Reason: Interaction Checking Stop: 11/04/18 15:05 Last Admin: 10/31/18 15:08 Dose: 87 ml Documented by: [id number] Medical Decision Making Differential Diagnosis Differential diagnoses includes but is not limited to toxic, metabolic, infectious, traumatic, cardiac, neurologic, hematologic, psychiatric and inflammatory etiologies. Medical Records Attestation: I reviewed the patient's medical records. Home Medications Current Medication List: was personally reviewed by me Laboratory Data Attestation: I reviewed the patient's lab results. Result diagrams: 10/31/18 11:00 10/31/18 11:00 Lab Results 10/31/18 10/31/18 10/31/18 Range/Units 11:00 11:00 11:00 WBC 3.74 L (4.8-10.8) K/uL RBC 3.82 L (4.7-6.1) M/uL Hgb 10.0 L (14.0-18.0) g/dL Hct 33.0 L (42-52) % MCV 86.4 (80-100) fL MCH 26.2 (25-34) pg MCHC 30.3 L (32-36) g/dL RDW Std Deviation 66.5 H (36.4-46.3) fL RDW Coeff of Jose C 21.0 H (11.5-14.5) % Plt Count 122 L (130-400) K/uL MPV 11.4 H (7.4-10.4) fL Immature Gran % (Auto) 0.3 % Neut % (Auto) 69.4 % Lymph % (Auto) 13.4 % Charlton % (Auto) 13.4 % Eos % (Auto) 3.2 % Baso % (Auto) 0.3 % Immature Gran # (Auto) 0.01 (0.00-0.02) K/uL Neut # (Auto) 2.60 (1.4-6.5) K/uL Lymph # (Auto) 0.50 L (1.2-3.4) K/uL Charlton # (Auto) 0.50 (0.11-0.59) K/uL Eos # (Auto) 0.12 (0-0.5) K/uL Baso # (Auto) 0.01 (0-0.2) K/uL Platelet Estimate Decreased L (Normal) Anisocytosis Present Ovalocytes 1+ PT 11.8 (9.0-12.0) Seconds INR 1.2 H (0.9-1.1) Sodium 140 (136-145) mmol/L Potassium 3.2 L (3.5-5.1) mmol/L Chloride 101 (98-107) mmol/L Carbon Dioxide 35 H (21-32) mmol/L Anion Gap 4.0 (3-11) BUN 26 H (7-18) mg/dl Creatinine 5.69 H* (0.6-1.4) mg/dl Est Cr Clr Drug Dosing 13.5 ml/min Est GFR ( Amer) 10.3 Est GFR (Non-Af Amer) 8.9 BUN/Creatinine Ratio 4.6 L (10-20) Glucose 137 H (70-99) mg/dl Lactate (0.4-2.0) mmol/L Calcium 10.3 H (8.5-10.1) mg/dl Magnesium 2.2 (1.8-2.4) mg/dl Total Bilirubin 0.7 (0.2-1) mg/dl AST 20 (15-37) U/L ALT 21 (12-78) U/L Alkaline Phosphatase 84 (45-117) U/L Troponin I 0.150 H* (0-0.045) ng/ml NT-Pro-B Natriuret Pep (0-1800) pg/ml Total Protein 6.7 (6.4-8.2) gm/dl Albumin 3.4 (3.4-5.0) gm/dl Globulin 3.3 (2.5-4.0) gm/dl Albumin/Globulin Ratio 1.0 (0.9-2) TSH 12.700 H (0.300-4.500) uIu/ml Free T4 1.11 (0.8-1.6) ng/dl Urine Color Urine Appearance (Clear) Urine pH (4.5-7.5) Ur Specific Ashburn (1.000-1.030) Urine Protein (Negative) Urine Glucose (UA) (Negative) Urine Ketones (Negative) Urine Blood (Negative) Urine Nitrite (Negative) Urine Bilirubin (Negative) Urine Urobilinogen (Negative) Ur Leukocyte Esterase (Negative) Urine WBC (Auto) (0-5) /hpf Urine RBC (Auto) (0-4) /hpf U Hyaline Cast (Auto) (0-5) /lpf U Epithel Cells (Auto) (0-5) /lpf Urine Bacteria (Auto) (Negative) 10/31/18 10/31/18 10/31/18 Range/Units 11:00 11:27 13:10 WBC (4.8-10.8) K/uL RBC (4.7-6.1) M/uL Hgb (14.0-18.0) g/dL Hct (42-52) % MCV (80-100) fL MCH (25-34) pg MCHC (32-36) g/dL RDW Std Deviation (36.4-46.3) fL RDW Coeff of Jose C (11.5-14.5) % Plt Count (130-400) K/uL MPV (7.4-10.4) fL Immature Gran % (Auto) % Neut % (Auto) % Lymph % (Auto) % Charlton % (Auto) % Eos % (Auto) % Baso % (Auto) % Immature Gran # (Auto) (0.00-0.02) K/uL Neut # (Auto) (1.4-6.5) K/uL Lymph # (Auto) (1.2-3.4) K/uL Charlton # (Auto) (0.11-0.59) K/uL Eos # (Auto) (0-0.5) K/uL Baso # (Auto) (0-0.2) K/uL Platelet Estimate (Normal) Anisocytosis Ovalocytes PT (9.0-12.0) Seconds INR (0.9-1.1) Sodium (136-145) mmol/L Potassium (3.5-5.1) mmol/L Chloride (98-107) mmol/L Carbon Dioxide (21-32) mmol/L Anion Gap (3-11) BUN (7-18) mg/dl Creatinine (0.6-1.4) mg/dl Est Cr Clr Drug Dosing ml/min Est GFR ( Amer) Est GFR (Non-Af Amer) BUN/Creatinine Ratio (10-20) Glucose (70-99) mg/dl Lactate 0.8 (0.4-2.0) mmol/L Calcium (8.5-10.1) mg/dl Magnesium (1.8-2.4) mg/dl Total Bilirubin (0.2-1) mg/dl AST (15-37) U/L ALT (12-78) U/L Alkaline Phosphatase (45-117) U/L Troponin I (0-0.045) ng/ml NT-Pro-B Natriuret Pep > 34766 H (0-1800) pg/ml Total Protein (6.4-8.2) gm/dl Albumin (3.4-5.0) gm/dl Globulin (2.5-4.0) gm/dl Albumin/Globulin Ratio (0.9-2) TSH (0.300-4.500) uIu/ml Free T4 (0.8-1.6) ng/dl Urine Color Yellow Urine Appearance Clear (Clear) Urine pH 7.0 (4.5-7.5) Ur Specific [place] 1.016 (1.000-1.030) Urine Protein 4+ H (Negative) Urine Glucose (UA) 2+ H (Negative) Urine Ketones Negative (Negative) Urine Blood 1+ H (Negative) Urine Nitrite Negative (Negative) Urine Bilirubin Negative (Negative) Urine Urobilinogen Negative (Negative) Ur Leukocyte Esterase Negative (Negative) Urine WBC (Auto) 1-5 (0-5) /hpf Urine RBC (Auto) 0-4 (0-4) /hpf U Hyaline Cast (Auto) 5-10 H (0-5) /lpf U Epithel Cells (Auto) 20-30 H (0-5) /lpf Urine Bacteria (Auto) Negative (Negative) Imaging Data Radiologist's Impression: Radiology results as stated below per my review and the radiologist's interpretation: XR chest 1V portable CLINICAL HISTORY: weakness COMPARISON STUDY: Chest radiograph October 05, 2018. FINDINGS: Moderate cardiac megaly is noted. No evidence for pulmonary edema. Linear left midlung opacity favors atelectasis or scarring. There is no consolidation. The appearance of the chest is unchanged. IMPRESSION: No acute cardiopulmonary findings. No change in appearance of the chest. Electronically signed by: Marcus Salazar M.D. 10/31/2018 11:[address] head/brain wo con CT DOSE: 537.48 mGy.cm HISTORY: Mental status change recurrent falls TECHNIQUE: Multiaxial CT images of the head were performed without the use of intravenous contrast. A dose lowering technique was utilized adhering to the principles of ALARA. Comparison: 06/20/2017 Findings: Postoperative changes of the sinuses including antral window placement and hypertrophic change of the nasal turbinates. Scattered mucosal thickening with moderate polypoid change of the maxillary sinuses. Mild hyperplastic change nasal turbinates. The calvarium and skull base are intact. The ventricles and sulci are within normal limits. There is no mass, hematoma, midline shift, or acute infarct. Age-related chronic small vessel change Impression: No acute intracranial abnormality. Age-related chronic small vessel change. Postoperative and chronic sinus changes of all major sinuses. The above report was generated using voice recognition software. It may contain grammatical, syntax or spelling errors. Electronically signed by: Osmany Marte M.D. 10/31/2018 1:55 PM ECG Data Attestation: I personally reviewed and interpreted this ECG as follows: Indication: altered mental status Rate (beats per minute): 55 Rhythm: sinus bradycardia Findings: + RBBB and + ST depression (inferior, septal, anterior) Comparison ECG Date: from (10/05/18) Change: no significant change Blood Pressure Blood Pressure Findings: Elevated blood pressure Blood Pressure Disposition: further management by hospitalist MDM Narrative Patient is a 78-year-old past medical history of dialysis who presents the ER for confusion with 5 falls in the past 24 hours. Upon presentation is found to be hypoxic at 85 to 80% on room air. Labs were obtained and showed a mild leukopenia 3.7 thousand. Mild anemia 10. INR is unremarkable. BMP with a creatinine of 5.6. Mild hypokalemia. Lactate was normal. Troponin was detectable at 0.15 consistent with previous. proBNP was elevated at 35,000. UA was negative. CT of the head and chest x-ray were unremarkable. CTA of the chest was performed after discussing with the hospitalist. Patient family were updated bedside and patient was admitted to the hospital for further work-up. EKG was nondiagnostic. Impression & Plan Hypoxia, Confusion, Falls Discharge Plan Visit Data Chief Complaint: Altered Mental Status ED Provider: Kendall Romano Discharge Problem: Hypoxia, Confusion, Falls Patient Disposition: Being Evaluated by Hospitalist Discharge Instructions Interventions: ED Discharge Assessment Last Done: 10/31/18 16:27 Discharge Problem: Falls Qualifiers: Encounter type: initial encounter Qualified Code(s): W19.XXXA - Unspecified fall, initial encounter The scribe's documentation has been prepared under my direction and personally reviewed by me in its entirety. I confirm that the note above accurately reflects all work, treatment, procedures, and medical decision making performed by me.
[2018-10-31] MEDS ORDERED: ONDANSETRON INJ 2 MG/ML 2 ML VIAL IV PRN (17:10)
[2018-10-31] MEDS ORDERED: POTASSIUM CHLORIDE 10 MEQ TABCR PO STA (17:10)
[2018-10-31] MEDS ORDERED: ACETAMINOPHEN 325 MG TAB PO PRN (17:10)
[2018-10-31] MEDS ORDERED: CARBOHYDRATES FOR HYPOGLYCEMIA PO PRN (17:30)
[2018-10-31] MEDS ORDERED: GLUCOSE 40% GEL 15 GM TUBE PO PRN (17:30)
[2018-10-31] MEDS ORDERED: GLUCAGON FOR INJ 1 MG VIAL IM PRN (17:30)
[2018-10-31] MEDS ORDERED: GLUCOSE 10 TABS/TUBE PO PRN (17:30)
[2018-10-31] MEDS ORDERED: ENOXAPARIN INJ 30 MG/0.3 ML SYR SQ SCH (18:00)
[2018-10-31] MEDS: FUROSEMIDE 80 MG in SYRINGE 0 ML IV SCH (18:21)
[2018-10-31] MEDS: CALCIUM ACETATE 667 MG CAP PO SCH (18:22)
[2018-10-31] MEDS: HydrALAZINE 10 MG TAB PO SCH (18:22)
[2018-10-31] MEDS: INSULIN ASPART 100 UNITS/ML 3 ML PEN SC SCH ×2 (18:24→21:51)
[2018-10-31] MEDS ORDERED: INSULIN DETEMIR FLEXPEN/FLEX TOUCH 100 UNITS/ML 3ML SC SCH (21:00)
[2018-10-31] MEDS: ROSUVASTATIN CALCIUM 20 MG TAB PO SCH (21:46)
[2018-10-31] MEDS: GABAPENTIN 100 MG CAP PO SCH (21:46)
[2018-10-31] MEDS: AMLODIPINE BESYLATE 5 MG TAB PO SCH (21:47)
[2018-10-31] MEDS: LABETALOL HCL 200 MG TAB PO SCH (21:47)
[2018-10-31] MEDS: PANTOprazole 40 MG TAB PO SCH (21:48)
[2018-10-31] MEDS: TRAMADOL HCL 50 MG TABLET PO SCH (21:50)
[2018-10-31] MEDS: ALUMINUM/MAGNESIUM SUSP 30 ML UDC PO PRN (22:28)
[2018-10-31] MEDS ORDERED: HydrALAZINE HCL 20 MG/ML VIAL IV PRN (23:50)
[2018-11-01] MEDS ORDERED: HydrALAZINE HCL 20 MG/ML VIAL ONE
[2018-11-01] MEDS: FUROSEMIDE 80 MG in SYRINGE 0 ML IV SCH ×2 (05:09→18:59)
[2018-11-01] MEDS: LEVOTHYROXINE SODIUM 200 MCG TABLET PO SCH (05:51)
[2018-11-01 07:08] LABS: BUN Creatinine Ratio 4.9 (10-20); Calcium 9.6 mg/dl (8.5-10.1); Creatinine Clr Calc Pharmacy 10.4 ml/min; Est GFR (African American) 8.2; Est GFR (Non-African American) 7.1; Potassium 3.2 mmol/L (3.5-5.1)
[2018-11-01] MEDS: DEXTROSE 50% 50 ML SYRINGE IV PRN (07:13)
[2018-11-01] MEDS: PANTOprazole 40 MG TAB PO SCH ×2 (08:33→20:26)
[2018-11-01] MEDS: LABETALOL HCL 200 MG TAB PO SCH ×2 (08:33→20:25)
[2018-11-01] MEDS: INSULIN ASPART 100 UNITS/ML 3 ML PEN SC SCH ×4 (08:33→20:39)
[2018-11-01] MEDS: CALCIUM ACETATE 667 MG CAP PO SCH ×3 (08:34→18:59)
[2018-11-01] MEDS: DOCUSATE SODIUM 100 MG CAP PO SCH (08:34)
[2018-11-01] MEDS: HydrALAZINE 10 MG TAB PO SCH ×3 (08:34→18:06)
[2018-11-01] MEDS: TAMSULOSIN HCL 0.4 MG CAP PO SCH (08:35)
--- NOTE | 2018-11-01 08:41 | Neurology Consultation ---
Date of Consultation November 01, 2018 Assessment & Plan (1) Metabolic encephalopathy: Resolving metabolic encephalopathy in a patient with end-stage renal disease who missed 3 dialysis sessions last week. He became acutely worse after restarting hemodialysis the day prior to his presentation, but appears to be improved at this time, at least compared with his assessment in the emergency department. I wonder if this presentation would be consistent with dialysis disequilibrium syndrome. His clinical presentation is not highly suggestive of stroke, seizures, or encephalitis. I do not find any obvious signs of Parkinson's disease. He does not have normal pressure hydrocephalus. I do not think he has Alzheimer's disease although a mild dementia is not completely excluded. He does appear to have a peripheral neuropathy which may contribute to balance difficulties. In any event, given his apparent improvement overnight, I would not order additional neurological testing at this time. Follow-up with nephrology for further recommendations. Please contact me if I may be of further assistance. History of Present Illness Reason for Consultation: Altered mental status, imbalance, frequent falls Requesting Physician: Iván Fisher MD Attending Physician: Stephen Gold MD History of Present Illness The patient is a 78-year-old male with a history of end-stage renal disease on hemodialysis. He reportedly missed 3 of his dialysis sessions recently, but did receive it the day prior to his presentation in the emergency department yesterday. After dialysis, according to his , he became unsteady and had fallen multiple times. He is also been observed to be more confused, agitated, and not himself according to emergency department records. He was found to be modestly hypoxic and with a mild leukopenia and anemia. His creatinine was 5.6 [address] a [address]A and CT of the head were unremarkable. While in the emergency department he was oriented to person but not to year. He was somewhat difficult to arouse but had a grossly nonfocal examination. The hospitalist service was consulted for admission to the hospital. Problems identified at the time of admission included fluid overload, acute on chronic respiratory failure, falls, altered mental status, missed dialysis, end-stage renal disease, hypokalemia, and diabetes. Neurology was consulted for further evaluation of his problems with altered mental status, imbalance, and ambulatory dysfunction. I evaluated this patient while he was sitting up in the bedside chair, he had just completed eating breakfast. He reports that he is feeling much better since his assessment in the emergency department. He is alert and answers questions appropriately. He is aware that he had missed several dialysis sessions in the preceding week and indicates that he was not feeling well. He does report that he has had some chronic difficulty with walking and balance and admits that this issue was becoming more of a problem recently. He does admit to some numbness in his feet and distal lower limbs but denies experiencing any significant neuropathic pain. Additional details as below. Allergies Allergy/AdvReac Type Severity Reaction Status Date / Time metformin AdvReac Intermediate CONFUSION Verified 10/31/18 12:51 Home Medications Home Medications Medication Instructions Recorded Confirmed Type calcium acetate 1,334 mg PO TIDM 04/19/18 10/31/18 History docusate sodium 100 mg PO QAM 04/19/18 10/31/18 History furosemide 80 mg PO BID 04/19/18 10/31/18 History gabapentin 100 mg PO HS 04/19/18 10/31/18 History labetalol 400 mg PO BID 04/19/18 10/31/18 History lisinopril 40 mg PO DAILY@1200 04/19/18 10/31/18 History rosuvastatin 20 mg PO QPM 04/19/18 10/31/18 History pantoprazole 40 mg PO BID #60 tab 04/23/18 10/31/18 Rx Renal Caps 1 mg PO DAILY@1200 07/04/18 10/31/18 History doxazosin [Cardura] 1 mg PO DAILY@1200 07/04/18 10/31/18 History hydralazine 10 mg PO TIDM 07/04/18 10/31/18 History levothyroxine 200 mcg PO QAM 08/24/18 10/31/18 History amlodipine 10 mg PO HS 10/05/18 10/31/18 History insulin detemir U-100 25 units SUBCUT HS 10/05/18 10/31/18 History levothyroxine 50 mcg PO 2XWK 10/05/18 10/31/18 History tamsulosin 0.4 mg PO QAM 10/05/18 10/31/18 History tramadol 50 mg PO QPM 10/05/18 10/31/18 History Prevagen 1 cap PO QDL 10/31/18 10/31/18 History Patient History Medical History Hypokalemia (Acute) Altered mental status (Acute) Acute on chronic respiratory failure (Acute) Fluid overload (Acute) Missed dialysis (Acute) BPH (benign prostatic hyperplasia) Hypothyroidism Diabetes (Chronic) Hypertensive urgency (Acute) Epistaxis (Chronic) Heart disease (Chronic) Secondary hyperparathyroidism of renal origin Anemia (Acute) End-stage renal disease on hemodialysis COPD (chronic obstructive pulmonary disease) AVF (arteriovenous fistula) Surgical History No pertinent past surgical history Family History Unknown Myocardial infarction Diabetes Social History Preferred Language: Kiswahili Communication Ability: Effective Platform Stapler Required: No Beliefs That Will Affect Care: None marital status: Current Living Situation: Spouse Other Information That Helps Us Care for You: No Feels Safe at Home: Yes Safety Concerns: Feels Safe At This Time Smoking Status: Former smoker Tobacco Type: cigarettes Do You Dip or Chew Tobacco: No Second Hand Exposure: No Tobacco Cessation Education Requested by Patient: No Hx Alcohol Use: No Hx Substance Use: No Review of Systems Constitutional: no fever and no chills Eyes: no blind spots and no diplopia Ear, Nose, Mouth, Throat: no hearing loss Respiratory: no cough and no dyspnea Cardiovascular: no chest pain and no palpitations Gastrointestinal: no nausea and no vomiting Genitourinary: + decreased urination and + problem reported Musculoskeletal: no back pain and no myalgia Integumentary: no rash and no lesions Neurologic: as per Subjective / HPI, + unsteadiness, + falls, + numbness and + tremor(s) Psychiatric: no anxiety and no confusion Hematologic / Lymphatic: no easy bleeding Physical Exam Physical Exam: The patient is a well-developed, well-nourished elderly male. He is alert and oriented to person, place, hospital, and day of the week. Recent and remote memory intact. Attention and concentration are normal. Patient exhibits a normal spontaneous speech pattern as well as an age- appropriate fund of knowledge and normal comprehension of vocabulary. Visual arreaga full to confrontation. Visual acuity normal. Pupils equal round reactive to light and accommodation. Eye movements normal. Facial sensation intact. There is no facial droop or weakness. Hearing intact. Palate elevates to midline. Shoulder shrug intact. Tongue protrudes to midline. Sensation reveals a length dependent deficit to all modalities in all 4 limbs. Deep tendon reflexes are diffusely diminished. Plantar responses downgoing bilaterally. There is no dysdiadochokinesia or dysmetria [id number] or ajlt-[id number] bilaterally. Ophthalmoscopic examination reveals normal-appearing optic disks and posterior segments. No papilledema or hemorrhages. Carotid pulses normal bilaterally, no bruits to auscultation. Gait and station are normal. Patient exhibits normal muscle strength and tone for all 4 limbs. No atrophy. There is a mild postural and action tremor noted. No resting tremor. Results & Data Vital Signs (Past 12 Hours) Vital Signs Temp Pulse Pulse Resp BP Pulse Ox 11/01/18 07:45 37.1 C 49 L 22 143/86 H 98 11/01/18 03:45 36.7 C 54 L 16 157/64 H 97 11/01/18 00:33 164/67 H 10/31/18 23:45 54 L 10/31/18 23:12 36.5 C 57 L 18 199/81 H 93 10/31/18 22:43 91 H 182/72 H Laboratory Results Recent labs reviewed. WBC 3.74, hemoglobin 10.0, hematocrit 33.0, platelet count 122, sodium 141, potassium 3.2, BUN 33, creatinine 6.85, glucose [address] of the head completed yesterday revealed no acute intracranial abnormality. No hemorrhage. There is age-related chronic small vessel ischemic disease and generalized atrophy. No ventriculomegaly. Images and report reviewed. Electrocardiogram completed yesterday reveals sinus bradycardia with first- degree AV block, heart rate 55 bpm.
[2018-11-01] MEDS ORDERED: SODIUM CHLORIDE 0.9% 1000ML 1,000 ML IV PRN (09:30)
[2018-11-01] MEDS ORDERED: EPOETIN ALFA 10,000 UNITS/ML VIAL IV SCH (10:00)
[2018-11-01] MEDS: DOXAZOSIN MESYLATE 1 MG TAB PO SCH (11:30)
[2018-11-01] MEDS: LISINOPRIL 40 MG TAB PO SCH (11:30)
--- NOTE | 2018-11-01 11:38 | Nephrology Consultation ---
Date of Consultation November 01, 2018 Assessment & Plan (1) End stage renal disease: 78-year-old gentlemen with end-stage renal disease secondary to hypertensive nephropathy, has been on hemodialysis Saturday, , Saturday. He has been noncompliant with dialysis and repeatedly missing dialysis sessions. Admitted to the hospital with confusion and overall not feeling well after dialysis. Unclear etiology for confusion, although dialysis disequilibrium is a possibility, seems less likely considering he has been off an on missing dialysis, continues to make urine and BUN and creatinine seems to be at baseline. Last dialysis was last and missed dialysis for once last Saturday. --plan for dialysis this afternoon for 4 hours --Epogen 91859 units with dialysis tomorrow --continue on his home antihypertensive medications --continue on phosphate binder and Nephrocaps Will follow Thank you for allowing me to participate in your patient's care. It was a pleasure to see Augie (2) Confusion: (3) Hypokalemia: (4) Anemia: (5) Hypertension: History of Present Illness Reason for Consultation: End-stage renal disease on hemodialysis. Attending Physician: Stephen Gold MD History of Present Illness Augie Mcintyre is a 78-year-old gentlemen with past medical history significant for end-stage renal disease on hemodialysis, hypertension, diabetes and coronary artery disease presented to the emergency room with the overall feeling poorly, dizziness lightheadedness and need for dialysis. Nephrology consult was requested to manage hemodialysis. Family was at bedside. Augie has end-stage renal disease, has been on dialysis on Saturday, , Saturday as [facility] dialysis unit for last almost 3 years. He has left radiocephalic AV fistula his has been functioning well. Over last 1 year he has been noncompliant with dialysis, repeatedly missing dialysis for days and sometime weeks. However lately he has been more compliant with dialysis. Over last 2 weeks he missed dialysis only last 3 stay. He had dialysis last however according to a that EMR reports ( patient could not provide detailed information while he is here, seems to be still confused) after dialysis 3 stay he became unsteady and had fallen multiple times. He he was also noted to be confused, agitated, and not himself and brought to the emergency room for further evaluation. UA and CT of the head were unremarkable. He has anemia with end-stage renal disease and history of GI bleeding before. Had EGD and colonoscopy done over last to 3 months at [place]. Currently he denies any shortness of breath or chest pain. His hemoglobin has been stable around 10.0. Clinically he does not seem to be volume overloaded, he continues to make urine. His potassium was slightly low. BUN and creatinine was acceptable. Allergies Allergy/AdvReac Type Severity Reaction Status Date / Time metformin AdvReac Intermediate CONFUSION Verified 10/31/18 12:51 Home Medications Home Medications Medication Instructions Recorded Confirmed Type calcium acetate 1,334 mg PO TIDM 04/19/18 10/31/18 History docusate sodium 100 mg PO QAM 04/19/18 10/31/18 History furosemide 80 mg PO BID 04/19/18 10/31/18 History gabapentin 100 mg PO HS 04/19/18 10/31/18 History labetalol 400 mg PO BID 04/19/18 10/31/18 History lisinopril 40 mg PO DAILY@1200 04/19/18 10/31/18 History rosuvastatin 20 mg PO QPM 04/19/18 10/31/18 History pantoprazole 40 mg PO BID #60 tab 04/23/18 10/31/18 Rx Renal Caps 1 mg PO DAILY@1200 07/04/18 10/31/18 History doxazosin [Cardura] 1 mg PO DAILY@1200 07/04/18 10/31/18 History hydralazine 10 mg PO TIDM 07/04/18 10/31/18 History levothyroxine 200 mcg PO QAM 08/24/18 10/31/18 History amlodipine 10 mg PO HS 10/05/18 10/31/18 History insulin detemir U-100 25 units SUBCUT HS 10/05/18 10/31/18 History levothyroxine 50 mcg PO 2XWK 10/05/18 10/31/18 History tamsulosin 0.4 mg PO QAM 10/05/18 10/31/18 History tramadol 50 mg PO QPM 10/05/18 10/31/18 History Prevagen 1 cap PO QDL 10/31/18 10/31/18 History Patient History Medical History Hypokalemia (Acute) Altered mental status (Acute) Acute on chronic respiratory failure (Acute) Fluid overload (Acute) Missed dialysis (Acute) BPH (benign prostatic hyperplasia) Hypothyroidism Diabetes (Chronic) Hypertensive urgency (Acute) Epistaxis (Chronic) Heart disease (Chronic) Secondary hyperparathyroidism of renal origin Anemia (Acute) End-stage renal disease on hemodialysis COPD (chronic obstructive pulmonary disease) AVF (arteriovenous fistula) Surgical History No pertinent past surgical history Family History Unknown Myocardial infarction Diabetes Social History Preferred Language: Bel[place]an Communication Ability: Effective 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 Beliefs That Will Affect Care: None marital status: Current Living Situation: Spouse Other Information That Helps Us Care for You: No Feels Safe at Home: Yes Safety Concerns: Feels Safe At This Time Smoking Status: Former smoker Tobacco Type: cigarettes Do You Dip or Chew Tobacco: No Second Hand Exposure: No Tobacco Cessation Education Requested by Patient: No Hx Alcohol Use: No Hx Substance Use: No Results & Data Vital Signs (Past 12 Hours) Vital Signs Temp Pulse Pulse Resp BP Pulse Ox Pulse Ox 11/01/18 11:29 36.9 C 47 L 18 152/62 H 95 11/01/18 10:58 98 11/01/18 07:45 37.1 C 49 L 22 143/86 H 98 11/01/18 03:45 36.7 C 54 L 16 157/64 H 97 11/01/18 00:33 164/67 H 10/31/18 23:45 54 L (1) Hypertension Hypertension type: essential hypertension Qualified Code(s): I10 - Essential (primary) hypertension
--- NOTE | 2018-11-01 12:28 | Hospitalist Progress Note ---
Date of Service November 01, 2018 Assessment & Plan (1) Fluid overload: Due to missing dialysis on multiple occasions. - Given intravenous Lasix - Plan for HD today (2) Acute on chronic respiratory failure: Patient was 86% on room air on admission. Before HD even, he was back down to room air. - HD as above (3) Falls: The family states he has had worsening falls and imbalance. - Consulted neurology - Roberts like it may be dialysis disequilibrium syndrome. - PT/OT (4) Altered mental status: The patient was oriented to name and time on admission. - Resolved; likely related to uremia and/or dialysis (5) End stage renal disease: Hemodialysis dependent. - Serial lab studies (6) Diabetes: A1c was 7.5% in 04/2018. - Diabetic and renal diet. - Continue Levemir at bedtime. - Sliding scale coverage as needed (7) DVT prophylaxis: Heparin 5000 units BID Subjective Feels better this morning. No major complaints. Review of Systems Review of Systems: All systems reviewed & are unremarkable except as noted in HPI & below Physical Exam Constitutional: WD/WN, vitals as above Eyes: PERRL, conjunctivae normal, anicteric sclerae ENMT: external ear and nose normal, oropharynx normal Neck: trachea midline, no thyromegaly Respiratory: no respiratory distress, no labored breathing, no retractions and does not use accessory muscles Cardiovascular: Rate/Rhythm: regular rate and regular rhythm Heart Sounds: normal S1 and normal S2 Gastrointestinal (Abdomen): normal bowel sounds, soft, nontender, no hepatosplenomegaly Musculoskeletal: no cyanosis or clubbing, extremities motor strength 5/5 Neurologic: moves all extremities; no focal motor deficits and not confused Speech / Cognition: normal speech Results & Data Vital Signs (Past 12 Hours) Vital Signs Temp Pulse Resp BP Pulse Ox Pulse Ox 11/01/18 11:29 36.9 C 47 L 18 152/62 H 95 11/01/18 10:58 98 11/01/18 07:45 37.1 C 49 L 22 143/86 H 98 11/01/18 03:45 36.7 C 54 L 16 157/64 H 97 11/01/18 00:33 164/67 H (1) Fluid overload Hypervolemia type: unspecified Qualified Code(s): E87.70 - Fluid overload, unspecified (2) Falls Encounter type: initial encounter Qualified Code(s): W19.XXXA - Unspecified fall, initial encounter (3) Diabetes Diabetes mellitus type: type 2 Diabetes mellitus hand plate stacker insulin use: with hand plate stacker use Diabetes mellitus complication status: with kidney complications Diabetes mellitus complication detail: with chronic kidney disease Chronic kidney disease stage: on chronic dialysis Qualified Code(s): E11.22 - Type 2 diabetes mellitus with diabetic chronic kidney disease; N18.6 - End stage renal disease; 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
[2018-11-01] MEDS: NEPHROCAPS PO SCH (12:39)
[2018-11-01] MEDS ORDERED: PHARMACY GLYCEMIC MGMT CONSULT SCH (13:25)
--- NOTE | 2018-11-01 13:37 | Pharmacy Report ---
Glycemic Control Consultation - Date of Service November 01, 2018 - Scope Scope: Glycemic Pharmacist consulted by Dr Gold on 11/01/18 for glycemic control and to write orders per [facility] inpatient glycemic control protocol - Objective Weight: 94.4 kg Accuchecks BSG (last 24hrs): 10/31/18 10/31/18 11/01/18 17:14 20:17 05:46 Glucose 45 L* POC Glucose 182 H 102 H 11/01/18 11/01/18 11/01/18 07:07 07:09 07:33 Glucose POC Glucose 46 L* 47 L* 126 H 11/01/18 11:27 Glucose POC Glucose 78 Laboratory Data (last 24hrs): 11/01/18 05:46 Potassium 3.2 L Carbon Dioxide 33 H Anion Gap 6.0 Creatinine 6.85 H* D Est Cr Clr Drug Dosing 10.4 - Recent Pertinent Medications Outpatient Anti-diabetic Regimen: * Levemir 25 units HS * A1c = 7.5 % 04/2018 * However, this result is likely somewhat unreliable in ESRD patients d/t interactions between the A1c analyzing technique and high levels of urea in ESRD, reduced RBC life span, iron deficiency anemia, and EPO administration. HbA1c > 7.5% in ESRD patient may overestimate the extent of hyperglycemia in ESRD patients. The patient is currently receiving: * Basal insulin: Lantus 25 units every 24 hours * Correctional Insulin: Novolog Correction per scale ACHS Goal Range: Low 120 mg/dL - High 160 mg/dL Correction Factor: 30 mg/dL/unit * Prandial insulin: Per carb ratio of 1 unit per 10 grams CHO consumed Risk Factors for Insulin Resistance: * Diet: Type 2 DM - Assessment & Plan Assessment & Plan: ASSESSMENT: * 78 year old male type 2 diabetic admitted for fluid overload, ESRD on HD T/, with hypoglycemia overnight/ early this AM * Will decrease Lantus tonight to prevent hypoglycemia * Continue higher goal range for pt w/ hypoglycemia * BSG dropped from 126mg/dl --> 78mg/dl prior to lunch - will loosen CR PLAN FOR INPATIENT GLYCEMIC CONTROL: * Basal insulin -decrease * Lantus 15 units SQ HS (hold for BSG < 90mg/dl) * Bolus insulin * NovoLog per scale ACHS or Q6hrs while NPO * Goal Range: Low 120 mg/dL - High 160 mg/dL * Correction Factor: 30 mg/dL/unit * LOOSEN: Nutritional / Prandial insulin per carb ratio of 1 unit per 12 grams CHO consumed * Please note that the plan above was derived based on current level of insulin resistance and hospital stress. These recommendations are appropriate for inpatient admission only. Plan of care upon discharge will need to be reassessed to avoid potential outpatient hypo/hyperglycemia. Thank you.
[2018-11-01] MEDS: GABAPENTIN 100 MG CAP PO SCH (20:25)
[2018-11-01] MEDS: AMLODIPINE BESYLATE 5 MG TAB PO SCH (20:26)
[2018-11-01] MEDS: TRAMADOL HCL 50 MG TABLET PO SCH (20:28)
[2018-11-01] MEDS: ROSUVASTATIN CALCIUM 20 MG TAB PO SCH (20:29)
[2018-11-01] MEDS: HEPARIN SOD 5,000 UNIT/0.5 ML VIAL SQ SCH (20:38)
[2018-11-01] MEDS ORDERED: INSULIN DETEMIR FLEXPEN/FLEX TOUCH 100 UNITS/ML 3ML SC SCH (21:00)
[2018-11-02] MEDS: FUROSEMIDE 80 MG in SYRINGE 0 ML IV SCH (05:59)
[2018-11-02] MEDS: LEVOTHYROXINE SODIUM 200 MCG TABLET PO SCH (06:00)
[2018-11-02 06:37] LABS: BUN Creatinine Ratio 5.2 (10-20); Calcium 8.2 mg/dl (8.5-10.1); Creatinine Clr Calc Pharmacy 12.6 ml/min; Est GFR (African American) 10.4; Potassium 3.3 mmol/L (3.5-5.1)
[2018-11-02] MEDS: INSULIN ASPART 100 UNITS/ML 3 ML PEN SC SCH ×2 (08:20→11:52)
[2018-11-02] MEDS: TAMSULOSIN HCL 0.4 MG CAP PO SCH (08:22)
[2018-11-02] MEDS: PANTOprazole 40 MG TAB PO SCH (08:22)
[2018-11-02] MEDS: CALCIUM ACETATE 667 MG CAP PO SCH ×2 (08:23→12:05)
[2018-11-02] MEDS: LABETALOL HCL 200 MG TAB PO SCH (08:25)
[2018-11-02] MEDS: DOCUSATE SODIUM 100 MG CAP PO SCH (08:25)
[2018-11-02] MEDS: HEPARIN SOD 5,000 UNIT/0.5 ML VIAL SQ SCH (08:26)
[2018-11-02] MEDS: HydrALAZINE 10 MG TAB PO SCH ×2 (08:26→12:05)
[2018-11-02] MEDS: ALUMINUM/MAGNESIUM SUSP 30 ML UDC PO PRN (10:11)
--- NOTE | 2018-11-02 11:24 | Nephrology Progress Note ---
Date of Service November 02, 2018 Assessment & Plan (1) End stage renal disease: 78-year-old gentlemen with end-stage renal disease secondary to hypertensive nephropathy, has been on hemodialysis Saturday, , Saturday. He has been noncompliant with dialysis and repeatedly missing dialysis sessions. Admitted to the hospital with confusion and overall not feeling well after dialysis. Unclear etiology for confusion, although dialysis disequilibrium is a possibility, seems less likely considering he has been off an on missing dialysis, continues to make urine and BUN and creatinine seems to be at baseline. Had dialysis yesterday as regular schedule, for 4 hours, tolerated well. Cur rently blood pressure, volume status, electrolytes acceptable. --next dialysis 11/04/18 --received Epogen 59729 units with dialysis on 11/01/18 --continue on his home antihypertensive medications --continue on phosphate binder and Nephrocaps Will follow (2) Confusion: (3) Hypokalemia: (4) Anemia: (5) Hypertension: Subjective Don was seen and examined in his room this morning. He continues to be confused however denies shortness of breath or chest pain. Blood pressure is stable, had dialysis yesterday, tolerated well, volume status acceptable. Physical Exam Physical Exam: GENERAL: elderly male, , AA somewhat confused, not in any distress. NECK: Supple, no JVD. RESPIRATORY: clear to auscultation bilaterally, no wheezes or rales. CARDIOVASCULAR: S1, S2 normal, rate rhythm regular. EXTREMITY: No lower extremity edema NEURO: speech fluent. PSYCHIATRY: Normal mood and judgment Results & Data Vital Signs (Past 12 Hours) Vital Signs Temp Pulse Pulse Pulse Resp BP Pulse Ox 11/02/18 11:04 36.5 C 54 L 17 156/66 H 90 11/02/18 09:38 82 11/02/18 07:10 37.0 C 54 L 18 148/68 H 94 (1) Hypertension Hypertension type: essential hypertension Qualified Code(s): I10 - Essential (primary) hypertension
[2018-11-02] MEDS: DEXTROSE 50% 50 ML SYRINGE IV PRN (11:56)
[2018-11-02] MEDS: NEPHROCAPS PO SCH (12:05)
[2018-11-02] MEDS: LISINOPRIL 40 MG TAB PO SCH (12:05)
[2018-11-02] MEDS: DOXAZOSIN MESYLATE 1 MG TAB PO SCH (12:05)
--- NOTE | 2018-11-02 14:47 | Discharge Summary ---
Date of Service November 02, 2018 Admission HPI Per Admitting Provider 78-year-old male with end-stage renal disease on hemodialysis. He missed one dialysis session earlier this week. He has developed weakness and altered mental status according to family members. He is falling quite a bit recently. He is hypoxic on room air at 86%. Chest CTA is negative for PE. He appears to be mildly volume overloaded at this time. He is mildly hypokalemic also. Troponin is chronically elevated. EKG reveals no acute changes. 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 He will be on telemetry. Consider cardiology consultation. Nephrology will be consulted to manage his hemodi alysis and neurology will be consulted to evaluate his problems with altered mental status/imbalance/ambulatory dysfunction. OT and PT assessments have been requested. Principal Diagnosis Shortness of breath - Volume overload Falls and confusion - Likely early dementia and deconditioning Discharge Exam Constitutional WD/WN, vitals as above Eyes PERRL, conjunctivae normal, anicteric sclerae ENMT external ear and nose normal, oropharynx normal Neck trachea midline, no thyromegaly Respiratory no respiratory distress, no labored breathing, no retractions and does not use accessory muscles Cardiovascular Rate/Rhythm: regular rate and regular rhythm Heart Sounds: normal S1 and normal S2 Gastrointestinal (Abdomen) normal bowel sounds, soft, nontender, no hepatosplenomegaly Musculoskeletal no cyanosis or clubbing, extremities motor strength 5/5 Neurologic moves all extremities; no focal motor deficits and not confused Speech / Cognition: normal speech Discharge Data Allergies Allergy/AdvReac Type Severity Reaction Status Date / Time metformin AdvReac Intermediate CONFUSION Verified 10/31/18 12:51 Consultations 10/31/18 14:19 ED Decision to Admit Stat 10/31/18 17:10 Consult Nephrology Routine Consult Neurology Routine 11/02/18 07:30 Consult Case Management - Discharge Planning Routine Ordered Studies 10/31/18 12:00 CT head/brain wo con Stat 10/31/18 14:19 CT angio chest PE protocol Stat Hospital Course (1) Falls: The family states he has had worsening falls and imbalance. The family thinks this has been going on for multiple weeks. 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 - I also think he could easily have some amount of loss of proprioception from his diabetes. - PT/OT saw him and thought he could benefit from rehab, but the patient wanted to go home. We arranged home health. - Only test outstanding was B12 which had not initially been ordered because I was not aware his main issue was falls. (2) Altered mental status: The patient was oriented to name and time on admission. Per family, he had an episode of delirium in the hospital, but improved once he was back home. At home, he has been having some increased episodes of confusion that seem to spontaneously resolve. - Likely underlying dementia from his DM and ESRD. 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 Given lack of CVA symptoms, I did not repeat carotid dopplers (this was also mentioned to me as we were preparing discharge), but this could be considered as an outpatient. - By discharge, his confusion had resolved for the time being. (3) Fluid overload: Due to missing dialysis on multiple occasions. - Given intravenous Lasix - HD on 11/01 - Will follow up outpatient. (4) Acute on chronic respiratory failure: Patient was 86% on room air on admission. Before HD even, he was back down to room air. - HD as above (5) End stage renal disease: Hemodialysis dependent. - Serial lab studies (6) Diabetes: A1c was 7.5% in 04/2018. - Diabetic and renal diet. - Continue Levemir at bedtime. - Sliding scale coverage as needed (7) DVT prophylaxis: Heparin 5000 units BID Total Time Total Time Spent Total Time Spent (In Minutes): 35 Total Time Includes: Examination of the Patient and Communication With Other Providers Discharge Plan Discharge Items Patient Disposition: Home - Home Health Services Reason For Visit: FLUID OVERLOAD, HYPOXIA, END-STAGE RENAL DISEASE Discharge Diagnosis: Extra fluid; volume overload, confusion, and falls. Discharge Goals: Decrease discomfort and Diagnostic testing Activity: Resume your previous activity Exercise/Sports: Gradually increase as tolerated Non-emergency contact: Primary Care Provider and Kier Hand Call non-emergency contact if: your symptoms worsen Follow-up/Referrals: Mahsa Wang, [Primary Care Provider] - Diet: Carb Consistent or DM2 and Dialysis Renal Addtl Provider Instructions: Please hold the tramadol for a few days to see if this helps the confusion. Please follow up with Dr. Wang to see how the home nursing and PT is helping with your falls. Prescriptions: Continued levothyroxine 200 mcg Tablet 200 mcg PO QAM RF: 0 amlodipine 10 mg tablet 10 mg PO HS RF: 0 levothyroxine 50 mcg tablet 50 mcg PO 2XWK RF: 0 insulin detemir U-100 100 unit/mL solution 25 units subcut HS RF: 0 tamsulosin 0.4 mg capsule 0.4 mg PO QAM RF: 0 Prevagen 1 cap PO QDL RF: 0 furosemide 80 mg tablet 80 mg PO BID RF: 0 docusate sodium 100 mg Capsule 100 mg PO QAM RF: 0 gabapentin 100 mg capsule 100 mg PO HS RF: 0 labetalol 100 mg tablet 400 mg PO BID RF: 0 lisinopril 40 mg tablet 40 mg PO DAILY@1200 RF: 0 rosuvastatin 20 mg tablet 20 mg PO QPM RF: 0 calcium acetate 667 mg capsule 1,334 mg PO TIDM RF: 0 pantoprazole 40 mg Tablet,Delayed Release (Dr/Ec) 40 mg PO BID Qty: 60 RF: 2 Renal Caps 1 mg Capsule 1 mg PO DAILY@1200 RF: 0 hydralazine 10 mg tablet 10 mg PO TIDM RF: 0 doxazosin [Cardura] 1 mg tablet 1 mg PO DAILY@1200 RF: 0 Discontinued tramadol 50 mg Tablet 50 mg PO QPM RF: 0 Stand-Alone Forms: [facility] Discharge Orders: Discharge Order (Routine); Ordered 11/02/18 Ordered By: Stephen Gold Admission Data Admit Date/Time: 10/31/18 15:37 Attending Provider: Stephen Gold Admit Provider: Coleman Fisher Primary Care Provider: Mahsa Wang Other Providers: Eugene Busby ; Mahin Dorsey Nicole Jean ; Merlyn Briceno Kevin C. ; Terrence Marie Emile Pierre III ; Betina Hernandez ; Rocky Arias ; Stephen Gold Service: Telemetry
--- NOTE | 2018-11-02 14:50 | Pharmacy Report ---
Pharmacy Glycemic Short Note 2 - Date of Service November 02, 2018 - Glycemic Short BSG Results (Last 24 hours): 11/01/18 11/01/18 11/02/18 18:02 20:35 05:18 Glucose 167 H POC Glucose 98 133 H 11/02/18 11/02/18 11/02/18 07:08 11:01 11:02 Glucose POC Glucose 180 H 54 L* 56 L* 11/02/18 11/02/18 11:27 11:53 Glucose POC Glucose 56 L* 112 H OUTPATIENT ANTIDIABETIC REGIMEN: * Levemir 25 units HS ASSESSMENT: * Blood sugars were looking better after reducing Levemir from 25 to 15 units last night, but then patient had another episode of hypoglycemia (54mg/dl) today prior to lunch. Pt refused OJ and glucose tabs, RN gave IV Dextrose. * I will loosen CR further and place Lantus on scale to decrease dose. PLAN FOR INPATIENT GLYCEMIC CONTROL: * Basal insulin - CHANGE * Lantus SQ HS * BSG < 90mg/dl - 0 units * BSG 90-160mg/dl - 12 units * BSG > 160mg/dl - 15 units * Bolus insulin * NovoLog per scale ACHS or Q6hrs while NPO * Goal Range: Low 120 mg/dL - High 150 mg/dL (higher goal range for pt with hypoglycemia) * Correction Factor: 30 mg/dL/unit * LOOSEN: Nutritional / Prandial insulin per carb ratio of 1 unit per 15 grams CHO consumed
[2018-11-03] MEDS ORDERED: LEVOTHYROXINE SODIUM 50 MCG TABLET PO SCH (06:30)
== END 2018-11-02 15:19 | disposition home health service (06) | DRG 640 ==
LOC: ED 10:02 → SUATTDRO 15:37 → 2E 15:37

== ENCOUNTER 2018-12-22 22:32 | Inpatient (IN) ==
[2018-12-22 23:02] LABS: Hematocrit (blood only) 26.1 % (42-52); Hemoglobin 8.1 g/dL (14.0-18.0); Mean Corpuscular Volume 88.5 fL (80-100); RDW Coefficient of Variation 18.1 % (11.5-14.5); Red Blood Count 2.95 M/uL (4.7-6.1); White Blood Count 3.48 K/uL (4.8-10.8)
[2018-12-22 23:05] LABS: INR 1.2 (0.9-1.1); Partial Thromboplastin Time 26.9 Seconds (21.0-31.0); Prothrombin Time 12.1 Seconds (9.0-12.0)
[2018-12-22 23:08] LABS: iSTAT Blood Urea Nitrogen > 140 mg/dl (7-18); iSTAT Carbon Dioxide 22 mEq/l (24-31); iSTAT Chloride 105 mEq/L (101-112); iSTAT Creatinine 16.9 mg/dl (0.6-1.3); iSTAT Glucose 170 mg/dl (70-99); iSTAT Hematocrit 24 % (42-52); iSTAT Hemoglobin 8.2 g/dl (14.0-18.0); iSTAT Ionized Calcium 1.28 mmol/l (1.12-1.32); iSTAT Potassium 4.8 mEq/L (3.3-5.0); iSTAT Sodium 142 mEq/L (135-144)
[2018-12-22 23:12] LABS: Acanthocytes 1+; Basophils # (auto) 0.03 K/uL (0-0.2); Basophils % (auto) 0.9 %; Eosinophils # (auto) 0.17 K/uL (0-0.5); Eosinophils % (auto) 5.1 %; Lymphocytes # (auto) 0.48 K/uL (1.2-3.4); Lymphocytes % (auto) 14.4 %; Monocytes # (auto) 0.28 K/uL (0.11-0.59); Monocytes % (auto) 8.4 %; Neutrophils # (auto) 2.38 K/uL (1.4-6.5); Neutrophils % (auto) 71.2 %; Platelet Count 105 K/uL (130-400); Platelet Estimate Decreased (Normal)
--- NOTE | 2018-12-22 23:12 | XRay Report ---
XR chest 1V portable HISTORY: Dyspnea COMPARISON: Chest 10/31/2018. FINDINGS: No pneumothorax. No pleural effusions. The heart remains enlarged. No new focal lung consol idations to suggest pneumonia. No evidence for pulmonary edema. Slightly rotated study. This may acco unt for the questionable density at the left lung base which favors overlying soft tissue. Small line ar density lingula consistent with subsegmental atelectasis. This remains unchanged. IMPRESSION: No significant change compared to the prior study. No acute process. Stable cardiomegaly. Electronically signed by: Jose C Jaeger M.D. 12/22/2018 11:10 PM
[2018-12-22 23:31] LABS: Base Excess VBG -4.4 mEq/L; Oxygen Saturation VBG 72.9 %; pH VBG 7.28 (7.36-7.41)
[2018-12-22 23:36] LABS: Alanine Aminotransferase 22 U/L (12-78); Albumin Globulin Ratio 1.1 (0.9-2); Alkaline Phosphatase 98 U/L (45-117); Aspartate Aminotransferase 8 U/L (15-37); Bilirubin,Total 0.6 mg/dl (0.2-1); Blood Urea Nitrogen 170 mg/dl (7-18); Calcium 9.5 mg/dl (8.5-10.1); Carbon Dioxide 23 mmol/L (21-32); Chloride 108 mmol/L (98-107); Creatinine Clr Calc Pharmacy 5.3 ml/min; Est GFR (African American) 3.1; Est GFR (Non-African American) 2.7; Globulin 2.8 gm/dl (2.5-4.0); Glucose 173 mg/dl (70-99); Magnesium 2.3 mg/dl (1.8-2.4); Potassium 4.8 mmol/L (3.5-5.1); Sodium 145 mmol/L (136-145); Total Protein 5.8 gm/dl (6.4-8.2); Troponin I 0.113 ng/ml (0-0.045)
--- NOTE | 2018-12-23 00:06 | Emergency Department Note ---
Entered by Dior Briceño acting as a scribe for Nahum Perales MD History of Present Illness General Chief complaint: Shortness of Breath/Dyspnea Stated complaint: SOB Time Seen by Provider: 12/22/18 22:48 Source: patient and family () History of Present Illness Onset (ago): day(s) (several) Location: chest Pain Consistency: + other (persistent) Quality: + other (shortness of breath) Associated symptoms: + cough (dry) and + other (positive weight gain; positive redness on left leg; positive blisters on left leg); no fever/chills The patient is a 78 year old male who presents to the Emergency Room with complaints of persistent shortness of breath that began several days prior to arrival. The patient reports a dry cough and weight gain during this time. The patient denies fever. He states that he typically goes to dialysis Saturday, , and Saturday, but states that he has missed this the past four times. The patient's states that the patient has recently had some redness and blisters on his left leg. The patient states that he did not take his evening medications today. Home Medications Home Medications Medication Instructions Recorded Confirmed Type docusate sodium 200 mg PO QAM 04/19/18 12/22/18 History gabapentin 100 mg PO HS 04/19/18 12/22/18 History lisinopril 40 mg PO DAILY@1200 04/19/18 12/22/18 History rosuvastatin 20 mg PO QPM 04/19/18 12/22/18 History pantoprazole 40 mg PO BID #60 tab 04/23/18 12/22/18 Rx Renal Caps 1 mg PO DAILY@1200 07/04/18 12/22/18 History doxazosin [Cardura] 1 mg PO DAILY@1200 07/04/18 12/22/18 History hydralazine 10 mg PO TIDM 07/04/18 12/22/18 History tamsulosin 0.4 mg PO QAM 10/05/18 12/22/18 History amlodipine 10 mg tablet 10 mg PO HS #90 tab 11/12/18 12/22/18 Rx calcium acetate 667 mg capsule 1,334 mg PO TIDM #180 cap 11/12/18 12/22/18 Rx insulin syringe U-100 with needle #1 ea 11/12/18 12/22/18 History 0.5 mL 30 gauge x 1/2" labetalol 100 mg tablet 400 mg PO BID #720 tab 12/08/18 12/22/18 Rx levothyroxine 200 mcg tablet 200 mcg PO .COMPLEX #30 tab 12/15/18 12/22/18 Rx levothyroxine 50 mcg tablet 50 mcg PO .COMPLEX #30 tab 12/15/18 12/22/18 Rx furosemide 80 mg PO AMPM 12/22/18 12/22/18 History insulin detemir U-100 [Levemir 25 units SUBCUT HS 12/22/18 12/22/18 History U-100 Insulin] Allergies Allergy/AdvReac Type Severity Reaction Status Date / Time tramadol AdvReac Severe disorented Verified 12/22/18 23:43 ,falling down metformin AdvReac Intermediate CONFUSION Verified 12/22/18 23:43 Past Med/Surg History Medical History Anemia BPH (benign prostatic hyperplasia) Hypothyroidism Secondary hyperparathyroidism of renal origin COPD (chronic obstructive pulmonary disease) Acute on chronic respiratory failure (Resolved) Altered mental status (Resolved) Chest pain (Resolved) Epistaxis (Resolved) Fluid overload (Resolved) Hypertensive urgency (Resolved) AVF (arteriovenous fistula) Abnormal colonoscopy Surgical History H/O cardiac catheterization H/O hemorrhoidectomy Hx of cholecystectomy No pertinent past surgical history Family History Unknown Myocardial infarction Diabetes Mother Diabetes Gallbladder disease Hypertension Breast cancer late 70s Father Diabetes Hypertension Brother Diabetes Hypertension Kidney disease Social History Preferred Language: Maltese Communication Ability: Effective Beliefs That Will Affect Care: None marital status: Current Living Situation: Spouse current occupational status: employed current occupation: works part-time at [employer] Other Information That Helps Us Care for You: No Feels Safe at Home: Yes Safety Concerns: Feels Safe At This Time Smoking Status: Former smoker Tobacco Type: cigarettes Second Hand Exposure: No Hx Alcohol Use: No Hx Substance Use: No Childhood Exposure to Second-Hand Smoke: No caffeine: Yes Dental Care, Regularly: Yes Physical Activity Frequency Comment: limited due physical condition Seatbelt Use: sometimes Review of Systems See HPI for pertinent positives & negatives. and A total of 10 systems reviewed and were otherwise negative Physical Exam Vital Signs Vital Signs - 24 hr 12/22/18 22:32 12/22/18 23:51 12/23/18 01:00 Temperature 36.3 C L Temperature Source Oral Sepsis Recent Fever Within 48 Hours No Sepsis New/Unexplained Change in Mental Status No Sepsis Action Taken by Nursing No Action Required Pulse Rate 53 L Pulse Rate [Apical] 51 L 51 L Pulse Rhythm Regular Respiratory Rate 16 14 20 Respiratory Effort / Characteristics Non-Labored Respiratory Depth Normal Normal Respiratory Pattern Regular Blood Pressure 149/64 H Blood Pressure [Right Arm] 149/64 H 145/56 H Blood Pressure Mean 92 Blood Pressure Mean [Right Arm] 92 85 Pulse Oximetry 98 98 95 Oxygen Delivery Method Nasal Cannula Nasal Cannula Nasal Cannula Oxygen Flow Rate 2 2 2 12/23/18 02:00 Temperature Temperature Source Sepsis Recent Fever Within 48 Hours Sepsis New/Unexplained Change in Mental Status Sepsis Action Taken by Nursing Pulse Rate Pulse Rate [Apical] 50 L Pulse Rhythm Respiratory Rate 20 Respiratory Effort / Characteristics Respiratory Depth Respiratory Pattern Blood Pressure Blood Pressure [Right Arm] 143/73 H Blood Pressure Mean Blood Pressure Mean [Right Arm] 96 Pulse Oximetry 95 Oxygen Delivery Method Nasal Cannula Oxygen Flow Rate 2 GENERAL: Awake, alert, chronically ill-appearing, in no distress HENT: Normocephalic, atraumatic. Oropharynx unremarkable. EYES: Normal conjunctiva. Sclera non-icteric. NECK: Supple. No nuchal rigidity. FROM. Mild JVD. RESPIRATORY: Diminished breath sounds throughout CARDIAC: Regular rate, normal rhythm. Extremities warm and well perfused. Pulses equal. ABDOMEN: Distended but soft.. No tenderness to palpation. No rebound or guarding. No masses. RECTAL: Deferred. MUSCULOSKELETAL: Chest examination reveals no tenderness. The back is symmetrical on inspection without obvious abnormality. There is no CVA tenderness to palpation. No joint edema. LOWER EXTREMITIES: Calves are equal size bilaterally and non-tender. 3+ bilateral pitting edema. 4 cm area of erythema and warmth to left distal pretibial region NEURO: Normal sensorium. No sensory or motor deficits noted. SKIN: No rash or jaundice noted. Course 2306: Past medical records reviewed. The patient was evaluated in room B12B. A complete history and physical exam was performed. 2336: [facility] and he was made aware of the patient. 0106: I updated the patient and his family on all results. 0114: [facility] who states that he will further evaluate the patient. Administered Medications Calcium Acetate (Phoslo) 1,334 mg PO TIDM SHANTA Stop: 01/22/19 07:59 Last Admin: 12/23/18 07:42 Dose: 1,334 mg Documented by: [id number] Docusate Sodium (Colace) 200 mg PO QAM SHANTA Stop: 01/22/19 08:59 Last Admin: 12/23/18 08:02 Dose: 200 mg Documented by: [id number] Epoetin Zheng (Procrit) 20,000 units IV TODAY@0910 SHANTA Stop: 12/23/18 16:00 Last Admin: 12/23/18 12:28 Dose: 20,000 units Documented by: [id number] Furosemide (Lasix) 80 mg PO BID17 SHANTA Stop: 01/22/19 06:29 Last Admin: 12/23/18 06:39 Dose: 80 mg Documented by: [id number] Hydralazine HCl (Apresoline) 10 mg PO TIDM SHANTA Stop: 01/22/19 07:59 Last Admin: 12/23/18 07:42 Dose: 10 mg Documented by: [id number] Ceftriaxone Sodium 2,000 mg/ (Dextrose) 70 mls @ 140 mls/hr IV Q24H SHANTA Stop: 01/02/19 06:29 Last Infusion: 12/23/18 07:33 Dose: 0 mls/hr Documented by: [id number] Admin: 12/23/18 06:39 Dose: 140 mls/hr Documented by: [id number] Insulin Aspart (Novolog Flexpen) 0 units SC ACHS SHANTA Stop: 01/22/19 07:29 Last Admin: 12/23/18 07:46 Dose: 8 units Documented by: [id number] Cosigned by: [id number] Labetalol HCl (Normodyne) 400 mg PO BID SHANTA Stop: 01/22/19 08:59 Last Admin: 12/23/18 08:02 Dose: Not Given Documented by: [id number] Levothyroxine Sodium (Synthroid) 250 mcg PO DAILYBB SHANTA Stop: 01/22/19 06:29 Last Admin: 12/23/18 06:39 Dose: 250 mcg Documented by: [id number] Pantoprazole Sodium (Protonix) 40 mg PO BID SHANTA Stop: 01/22/19 08:59 Last Admin: 12/23/18 08:02 Dose: 40 mg Documented by: [id number] Discontinued Medications Vancomycin HCl 2,250 mg/ (Sodium Chloride) 545 mls @ 200 mls/hr IV NOW ONE; Protocol Stop: 12/23/18 04:12 Last Infusion: 12/23/18 05:08 Dose: 0 mls/hr Documented by: [id number] Admin: 12/23/18 01:43 Dose: 200 mls/hr Documented by: [id number] Medical Decision Making Differential Diagnosis Differential diagnosis: Etiologies such as infections, reactive airway disease, pneumonia, pneumothorax, COPD, CHF, cardiac ischemia, pulmonary embolism, musculoskeletal, gastrointe stinal, as well as others were entertained. Medical Records Attestation: I reviewed the patient's medical records. Home Medications Current Medication List: was personally reviewed by me Laboratory Data Attestation: I reviewed the patient's lab results. Result diagrams: 12/22/18 22:42 12/22/18 22:42 Lab Results 12/22/18 12/22/18 12/22/18 Range/Units 22:40 22:42 22:42 WBC 3.48 L (4.8-10.8) K/uL RBC 2.95 L (4.7-6.1) M/uL Hgb 8.1 L (14.0-18.0) g/dL POC Hgb (14.0-18.0) g/dl Hct 26.1 L (42-52) % POC Hct (42-52) % MCV 88.5 (80-100) fL MCH 27.5 (25-34) pg MCHC 31.0 L (32-36) g/dL RDW Std Deviation 59.0 H (36.4-46.3) fL RDW Coeff of Jose C 18.1 H (11.5-14.5) % Plt Count 105 L (130-400) K/uL MPV 12.0 H (7.4-10.4) fL Immature Gran % (Auto) 0.0 % Neut % (Auto) 71.2 % Lymph % (Auto) 14.4 % [place] % (Auto) 8.4 % Eos % (Auto) 5.1 % Baso % (Auto) 0.9 % Immature Gran # (Auto) 0.00 (0.00-0.02) K/uL Neut # (Auto) 2.38 (1.4-6.5) K/uL Lymph # (Auto) 0.48 L (1.2-3.4) K/uL [place] # (Auto) 0.28 (0.11-0.59) K/uL Eos # (Auto) 0.17 (0-0.5) K/uL Baso # (Auto) 0.03 (0-0.2) K/uL Platelet Estimate Decreased L (Normal) Acanthocytes (Spur) 1+ PT 12.1 H (9.0-12.0) Seconds INR 1.2 H (0.9-1.1) APTT 26.9 (21.0-31.0) Seconds PTT Ratio 1.0 VBG pH (7.36-7.41) VBG pCO2 (38-50) mmHg VBG pO2 mmHg VBG HCO3 mmol/L VBG O2 Saturation % VBG Base Excess mEq/L Barometric Pressure mm/Hg POC Sodium (135-144) mEq/L Sodium (136-145) mmol/L POC Potassium (3.3-5.0) mEq/L Potassium (3.5-5.1) mmol/L POC Chloride (101-112) mEq/L Chloride (98-107) mmol/L Carbon Dioxide (21-32) mmol/L POC Total CO2 (24-31) mEq/l Anion Gap (3-11) POC Anion Gap (16-25) mmol/L POC BUN (7-18) mg/dl BUN (7-18) mg/dl Creatinine (0.6-1.4) mg/dl POC Creatinine (0.6-1.3) mg/dl Est Cr Clr Drug Dosing ml/min Est GFR ( Amer) Est GFR (Non-Af Amer) BUN/Creatinine Ratio Glucose (70-99) mg/dl POC Glucose (other) (70-99) mg/dl Estimat Average Glucose 157 mg/dl Hemoglobin A1c 7.1 H (4.5-5.6) % Lactate (0.4-2.0) mmol/L Calcium (8.5-10.1) mg/dl POC Ioniz Calcium Kathleen (1.12-1.32) mmol/l Magnesium (1.8-2.4) mg/dl Total Bilirubin (0.2-1) mg/dl AST (15-37) U/L ALT (12-78) U/L Alkaline Phosphatase (45-117) U/L Troponin I (0-0.045) ng/ml Total Protein (6.4-8.2) gm/dl Albumin (3.4-5.0) gm/dl Globulin (2.5-4.0) gm/dl Albumin/Globulin Ratio (0.9-2) 12/22/18 12/22/18 12/22/18 Range/Units 22:42 22:50 23:16 WBC (4.8-10.8) K/uL RBC (4.7-6.1) M/uL Hgb (14.0-18.0) g/dL POC Hgb 8.2 L (14.0-18.0) g/dl Hct (42-52) % POC Hct 24 L (42-52) % MCV (80-100) fL MCH (25-34) pg MCHC (32-36) g/dL RDW Std Deviation (36.4-46.3) fL RDW Coeff of Jose C (11.5-14.5) % Plt Count (130-400) K/uL MPV (7.4-10.4) fL Immature Gran % (Auto) % Neut % (Auto) % Lymph % (Auto) % [place] % (Auto) % Eos % (Auto) % Baso % (Auto) % Immature Gran # (Auto) (0.00-0.02) K/uL Neut # (Auto) (1.4-6.5) K/uL Lymph # (Auto) (1.2-3.4) K/uL [place] # (Auto) (0.11-0.59) K/uL Eos # (Auto) (0-0.5) K/uL Baso # (Auto) (0-0.2) K/uL Platelet Estimate (Normal) Acanthocytes (Spur) PT (9.0-12.0) Seconds INR (0.9-1.1) APTT (21.0-31.0) Seconds PTT Ratio VBG pH 7.28 L (7.36-7.41) VBG pCO2 48 (38-50) mmHg VBG pO2 45 mmHg VBG HCO3 22 mmol/L VBG O2 Saturation 72.9 % VBG Base Excess -4.4 mEq/L Barometric Pressure 728.2 mm/Hg POC Sodium 142 (135-144) mEq/L Sodium 145 (136-145) mmol/L POC Potassium 4.8 (3.3-5.0) mEq/L Potassium 4.8 (3.5-5.1) mmol/L POC Chloride 105 (101-112) mEq/L Chloride 108 H (98-107) mmol/L Carbon Dioxide 23 (21-32) mmol/L POC Total CO2 22 L (24-31) mEq/l Anion Gap 13.0 H (3-11) POC Anion Gap 22.0 (16-25) mmol/L POC BUN > 140 H* (7-18) mg/dl BUN 170 H (7-18) mg/dl Creatinine 15.20 H* (0.6-1.4) mg/dl POC Creatinine 16.9 H* (0.6-1.3) mg/dl Est Cr Clr Drug Dosing 5.3 ml/min Est GFR ( Amer) 3.1 Est GFR (Non-Af Amer) 2.7 BUN/Creatinine Ratio TNP Glucose 173 H (70-99) mg/dl POC Glucose (other) 170 H (70-99) mg/dl Estimat Average Glucose mg/dl Hemoglobin A1c (4.5-5.6) % Lactate (0.4-2.0) mmol/L Calcium 9.5 (8.5-10.1) mg/dl POC Ioniz Calcium Kathleen 1.28 (1.12-1.32) mmol/l Magnesium 2.3 (1.8-2.4) mg/dl Total Bilirubin 0.6 (0.2-1) mg/dl AST 8 L (15-37) U/L ALT 22 (12-78) U/L Alkaline Phosphatase 98 (45-117) U/L Troponin I 0.113 H* (0-0.045) ng/ml Total Protein 5.8 L (6.4-8.2) gm/dl Albumin 3.0 L (3.4-5.0) gm/dl Globulin 2.8 (2.5-4.0) gm/dl Albumin/Globulin Ratio 1.1 (0.9-2) 12/22/18 Range/Units 23:16 WBC (4.8-10.8) K/uL RBC (4.7-6.1) M/uL Hgb (14.0-18.0) g/dL POC Hgb (14.0-18.0) g/dl Hct (42-52) % POC Hct (42-52) % MCV (80-100) fL MCH (25-34) pg MCHC (32-36) g/dL RDW Std Deviation (36.4-46.3) fL RDW Coeff of Jose C (11.5-14.5) % Plt Count (130-400) K/uL MPV (7.4-10.4) fL Immature Gran % (Auto) % Neut % (Auto) % Lymph % (Auto) % [place] % (Auto) % Eos % (Auto) % Baso % (Auto) % Immature Gran # (Auto) (0.00-0.02) K/uL Neut # (Auto) (1.4-6.5) K/uL Lymph # (Auto) (1.2-3.4) K/uL [place] # (Auto) (0.11-0.59) K/uL Eos # (Auto) (0-0.5) K/uL Baso # (Auto) (0-0.2) K/uL Platelet Estimate (Normal) Acanthocytes (Spur) PT (9.0-12.0) Seconds INR (0.9-1.1) APTT (21.0-31.0) Seconds PTT Ratio VBG pH (7.36-7.41) VBG pCO2 (38-50) mmHg VBG pO2 mmHg VBG HCO3 mmol/L VBG O2 Saturation % VBG Base Excess mEq/L Barometric Pressure mm/Hg POC Sodium (135-144) mEq/L Sodium (136-145) mmol/L POC Potassium (3.3-5.0) mEq/L Potassium (3.5-5.1) mmol/L POC Chloride (101-112) mEq/L Chloride (98-107) mmol/L Carbon Dioxide (21-32) mmol/L POC Total CO2 (24-31) mEq/l Anion Gap (3-11) POC Anion Gap (16-25) mmol/L POC BUN (7-18) mg/dl BUN (7-18) mg/dl Creatinine (0.6-1.4) mg/dl POC Creatinine (0.6-1.3) mg/dl Est Cr Clr Drug Dosing ml/min Est GFR ( Amer) Est GFR (Non-Af Amer) BUN/Creatinine Ratio Glucose (70-99) mg/dl POC Glucose (other) (70-99) mg/dl Estimat Average Glucose mg/dl Hemoglobin A1c (4.5-5.6) % Lactate 0.5 (0.4-2.0) mmol/L Calcium (8.5-10.1) mg/dl POC Ioniz Calcium Kathleen (1.12-1.32) mmol/l Magnesium (1.8-2.4) mg/dl Total Bilirubin (0.2-1) mg/dl AST (15-37) U/L ALT (12-78) U/L Alkaline Phosphatase (45-117) U/L Troponin I (0-0.045) ng/ml Total Protein (6.4-8.2) gm/dl Albumin (3.4-5.0) gm/dl Globulin (2.5-4.0) gm/dl Albumin/Globulin Ratio (0.9-2) Imaging Data Radiologist's Impression: Radiology results as stated below per my review and the radiologist's interpretation: XR chest 1V portable HISTORY: Dyspnea COMPARISON: Chest 10/31/2018. FINDINGS: No pneumothorax. No pleural effusions. The heart remains enlarged. No new focal lung consolidations to suggest pneumonia. No evidence for pulmonary edema. Slightly rotated study. This may account for the questionable density at the left lung base which favors overlying soft tissue. Small linear density lingula consistent with subsegmental atelectasis. This remains unchanged. IMPRESSION: No significant change compared to the prior study. No acute process. Stable cardiomegaly. Electronically signed by: Jose C Jaeger M.D. 12/22/2018 11:10 PM ECG Data Attestation: I personally reviewed and interpreted this ECG as follows: Indication: SOB/dyspnea Rate (beats per minute): 52 Rhythm: sinus bradycardia Findings: + other (inferior T waves abnormalities), + 1st degree AV block and + RBBB; no ST elevation Blood Pressure Blood Pressure Findings: Elevated blood pressure Blood Pressure Disposition: further management by hospitalist BJ Moncada The patient is a pleasant 78-year-old gentleman with a complicated ast medical history of noncompliance, diastolic CHF, end-stage renal disease on HD, carotid artery disease, type 2 diabetes, COPD on 2 L home O2 at baseline who presents emergency department coming by his family concern for worsening water retention in setting of skipping intentionally 4 sessions of dialysis per hpi. Additionally, the patient has developed worsening edema in his lower extremities with development of water-filled blisters of his left lower leg and development of redness and warmth. On arrival the patient is in NAD, AFVSS, 98% on his baseline 2L NC. On exam patient appears fluid overloaded with 3+ by lateral lower extremity pitting edema with 4 cm region of erythema and warmth of the left lower pretibial region. There is no crepitus. EKG demonstrates sinus bradycardia with first-degree AV block and right bundle branch block with team fluid wave abnormalities similar to prior. Chest x-ray no significant change from prior. WBC 3.4 and platelets 105 similar to prior. H/H 8.1/26.1 approximate 2 prior range of values in the setting of patient's fluctuating values in the setting of his end-stage renal disease on dialysis. VBG with acidosis with pH of 7.28. However chemistry with bicarb within normal limits. BUN is elevated which is significantly higher for the patient than prior values. Creatinine 15.2 Lactate within normal limits. Troponin elevated at 0.113 in the setting of chronic elevations but lower than prior values. Given the patient's overload with significantly elevated BUN and cellulitis reasonable to admit this chronically ill patient for further management. Case was discussed with Dr. Ashby, [facility] hospitalist, who evaluate the patient for admission. Impression & Plan Uremia, Volume overload, Cellulitis Discharge Plan Visit Data *Final* Discharge Date/Time: 12/23/18 03:52 Chief Complaint: Shortness of Breath/Dyspnea Stated Complaint: SOB ED Provider: Nahum Perales Discharge Problem: Uremia, Volume overload, Cellulitis Patient Disposition: Admitted As Inpatient Discharge Instructions Interventions: ED Discharge Assessment Last Done: 12/23/18 03:52 The scribe's documentation has been prepared under my direction and personally reviewed by me in its entirety. I confirm that the note above accurately reflects all work, treatment, procedures, and medical decision making performed by me.
[2018-12-23] MEDS ORDERED: VANCOMYCIN CONSULT ACTIVE PRN ×2 (01:29→04:36)
[2018-12-23] MEDS ORDERED: VANCOMYCIN HCL 2,250 MG in SODIUM CHLORIDE 0.9% 500 ML IV ONE (01:29)
[2018-12-23] MEDS ORDERED: LEVOTHYROXINE SODIUM 200 MCG TABLET PO SCH (04:36)
[2018-12-23] MEDS ORDERED: GLUCAGON FOR INJ 1 MG VIAL SQ PRN (04:36)
[2018-12-23] MEDS ORDERED: GLUCOSE 10 TABS/TUBE PO PRN (04:36)
[2018-12-23] MEDS ORDERED: ALUMINUM/MAGNESIUM SUSP 30 ML UDC PO PRN (04:36)
[2018-12-23] MEDS ORDERED: GLUCOSE 40% GEL 15 GM TUBE PO PRN (04:36)
[2018-12-23] MEDS ORDERED: CARBOHYDRATES FOR HYPOGLYCEMIA PO PRN (04:36)
[2018-12-23] MEDS ORDERED: ACETAMINOPHEN 325 MG TAB PO PRN (04:36)
[2018-12-23] MEDS ORDERED: VANCOMYCIN HCL 1,000 MG in SODIUM CHLORIDE 0.9% 250 ML IV SCH (04:36)
[2018-12-23] MEDS ORDERED: ONDANSETRON INJ 2 MG/ML 2 ML VIAL IV PRN (04:36)
--- NOTE | 2018-12-23 05:49 | History & Physical Report ---
Date of Service December 23, 2018 Assessment & Plan (1) ESRD (end stage renal disease) on dialysis: Patient presents to the emergency department with shortness of breath, anasarca, having missed the last 4 dialysis treatments/hypertension- Will consult nephrology, as patient is in need of dialysis today. Continue amlodipine 10 mg daily at bedtime, doxazosin 1 mg p.o. daily at noon, furosemide 80 mg p.o. twice daily, hydralazine 10 mg p.o. 3 times daily with meals, labetalol 40 mg p.o. twice daily and lisinopril 40 mg p.o. daily. Present on Admission?: Yes (2) Personal history of noncompliance with medical treatment, presenting hazards to health: The patient has a history of missing several dialysis treatments in a row as noted today and has been noted in the record in the past. Present on Admission?: Yes (3) Cellulitis of left lower extremity without foot: Moderately severe diabetic cellulitis and abscess of left lower extremity- Placed on vancomycin IV and ceftriaxone IV. Present on Admission?: Yes (4) Hypertension: See above. Present on Admission?: Yes (5) Diabetic peripheral neuropathy: Continue gabapentin. Present on Admission?: Yes (6) Type II diabetes mellitus with complication, uncontrolled: Continue Levemir 25 units subcu at bedtime. Placed on Accu-Cheks with NovoLog coverage Present on Admission?: Yes (7) Hyperlipidemia LDL goal <70: Continue rosuvastatin 20 mg every evening. Present on Admission?: Yes (8) Hypothyroidism: Continue levothyroxine sodium 50 mcg daily Present on Admission?: Yes (9) BPH (benign prostatic hyperplasia): Continue tamsulosin. Present on Admission?: Yes History of Present Illness Chief Complaint: The patient presents to the emergency department due to persistent shortness of breath, that began several days prior to arrival, that is associated with missing dialysis the past 4 times. Primary Care Provider: Mahsa Wang DO The patient is a 78-year-old male with a past medical history of ESRD on HD, with frequent medical noncompliance, where he does not show up for scheduled dialysis, not uncommonly missing 4 appointments, as he did this time, and then presents to the emergency department with shortness of breath. Allergies Allergy/AdvReac Type Severity Reaction Status Date / Time tramadol AdvReac Severe disorented Verified 12/22/18 23:43 ,falling down metformin AdvReac Intermediate CONFUSION Verified 12/22/18 23:43 Home Medications Home Medications Medication Instructions Recorded Confirmed Type docusate sodium 200 mg PO QAM 04/19/18 12/22/18 History gabapentin 100 mg PO HS 04/19/18 12/22/18 History lisinopril 40 mg PO DAILY@1200 04/19/18 12/22/18 History rosuvastatin 20 mg PO QPM 04/19/18 12/22/18 History pantoprazole 40 mg PO BID #60 tab 04/23/18 12/22/18 Rx Renal Caps 1 mg PO DAILY@1200 07/04/18 12/22/18 History doxazosin [Cardura] 1 mg PO DAILY@1200 07/04/18 12/22/18 History hydralazine 10 mg PO TIDM 07/04/18 12/22/18 History tamsulosin 0.4 mg PO QAM 10/05/18 12/22/18 History amlodipine 10 mg tablet 10 mg PO HS #90 tab 11/12/18 12/22/18 Rx calcium acetate 667 mg capsule 1,334 mg PO TIDM #180 cap 11/12/18 12/22/18 Rx insulin syringe U-100 with needle #1 ea 11/12/18 12/22/18 History 0.5 mL 30 gauge x 1/2" labetalol 100 mg tablet 400 mg PO BID #720 tab 12/08/18 12/22/18 Rx levothyroxine 200 mcg tablet 200 mcg PO .COMPLEX #30 tab 12/15/18 12/22/18 Rx levothyroxine 50 mcg tablet 50 mcg PO .COMPLEX #30 tab 12/15/18 12/22/18 Rx furosemide 80 mg PO AMPM 12/22/18 12/22/18 History insulin detemir U-100 [Levemir 25 units SUBCUT HS 12/22/18 12/22/18 History U-100 Insulin] Past Med/Surg History Medical History Anemia BPH (benign prostatic hyperplasia) Hypothyroidism Secondary hyperparathyroidism of renal origin COPD (chronic obstructive pulmonary disease) Acute on chronic respiratory failure (Resolved) Altered mental status (Resolved) Chest pain (Resolved) Epistaxis (Resolved) Fluid overload (Resolved) Hypertensive urgency (Resolved) AVF (arteriovenous fistula) Abnormal colonoscopy Surgical History H/O cardiac catheterization H/O hemorrhoidectomy Hx of cholecystectomy No pertinent past surgical history Family History Unknown Myocardial infarction Diabetes Mother Diabetes Gallbladder disease Hypertension Breast cancer late 70s Father Diabetes Hypertension Brother Diabetes Hypertension Kidney disease Social History Preferred Language: Kuwaiti Communication Ability: Effective Beliefs That Will Affect Care: None marital status: Current Living Situation: Spouse current occupational status: employed current occupation: works part-time at [employer] Other Information That Helps Us Care for You: No Feels Safe at Home: Yes Safety Concerns: Feels Safe At This Time Smoking Status: Former smoker Tobacco Type: cigarettes Second Hand Exposure: No Hx Alcohol Use: No Hx Substance Use: No Childhood Exposure to Second-Hand Smoke: No caffeine: Yes Dental Care, Regularly: Yes Physical Activity Frequency Comment: limited due physical condition Seatbelt Use: sometimes Review of Systems Review of Systems: The patient denies sore throat, fevers, chills, sweats, weight change, fatigue, nausea, vomiting, diarrhea , constipation, abdominal pain, pelvic pain, blood in urine or stool, dysuria, urinary frequency or urgency, lightheadedness, dizziness, headache, loss of consciousness, rash, abnormal bruising or bleeding, imbalance, focal weakness, numbness or tingling in arms or legs, back or neck pain, or night sweats. The review of systems is otherwise negative other than for that already noted above, and at least 10 systems have been reviewed. Physical Exam Physical Exam: The patient is awake, oriented 3, has slowed responses, face looks puffy, lying in bed and in no acute distress. HEENT--PERRL, EOMI, mucous membranes and oropharynx dry. Neck--supple. No JVD. No bruits. Thyroid normal, trachea midline, no adenopathy. Heart--normal S1 and S2. No murmurs, rubs or gallops. Lungs--crackles at the bases bilaterally. No respiratory distress, no accessory muscle use. Abdomen--normal bowel sounds and soft. Nontender. Nondistended. Obese. Tym panitic. Extremities--no cyanosis or clubbing. 3+ bilateral pretibial and pedal pitting edema. 1+ generalized edema. Dermatologic--left lower extremity with multiple surface abrasions/moderately severe erythema and warmth. Neurologic--cranial nerves II through XII grossly intact. Rheumatologic--normal range of motion. Psychiatric--normal affect. Results & Data Vital Signs (Past 12 Hours) Vital Signs Temp Pulse Pulse Resp BP BP Pulse Ox 12/23/18 04:05 97.2 F L 51 L 18 138/64 99 12/23/18 03:52 51 L 22 153/111 H 99 12/23/18 02:00 50 L 20 143/73 H 95 12/23/18 01:00 51 L 20 145/56 H 95 12/22/18 23:51 51 L 14 149/64 H 98 12/22/18 22:32 97.3 F L 53 L 16 149/64 H 98 Code Status & VTE Plan Code Status Full code VTE Prophylaxis Plan VTE Prophylaxis will be ordered: Yes PG Care Time/CCT Total # of Minutes Spent Total Time Spent with Patient: Total time spent is greater than 50% in coordination of care (as documented) at patient's floor/unit and/or counseling patient: (1) Hypertension Hypertension type: essential hypertension Qualified Code(s): I10 - Essential (primary) hypertension (2) Hypothyroidism Hypothyroidism type: acquired Qualified Code(s): E03.9 - Hypothyroidism, unspecified (3) BPH (benign prostatic hyperplasia) Lower urinary tract symptom presence: unspecified whether lower urinary tract symptoms present Qualified Code(s): N40.0 - Benign prostatic hyperplasia without lower urinary tract symptoms
[2018-12-23] MEDS: LEVOTHYROXINE SODIUM 125 MCG TABLET PO SCH (06:39)
[2018-12-23] MEDS: FUROSEMIDE 80 MG TAB PO SCH ×2 (06:39→16:47)
[2018-12-23] MEDS: cefTRIAXone SODIUM 2,000 MG in DEXTROSE 5% 50 ML IV SCH (06:39)
[2018-12-23 07:01] LABS: Estimated Average Glucose 157 mg/dl; Hemoglobin A1C 7.1 % (4.5-5.6)
--- NOTE | 2018-12-23 07:41 | Hospitalist Progress Note ---
Date of Service December 23, 2018 Assessment & Plan (1) ESRD (end stage renal disease) on dialysis: Patient presents to the emergency department with shortness of breath, anasarca, having missed the last 4 dialysis treatments Will consult nephrology, patient did receive dialysis however he is now considering stopping dialysis once again in pursuing palliative care Continue amlodipine 10 mg daily at bedtime, doxazosin 1 mg p.o. daily at noon, furosemide 80 mg p.o. twice daily, hydralazine 10 mg p.o. 3 times daily with meals, labetalol 40 mg p.o. twice daily and lisinopril 40 mg p.o. daily. (2) Personal history of noncompliance with medical treatment, presenting hazards to health: The patient has a history of missing several dialysis treatments in a row as noted today and has been noted in the record in the past., Patient may be interested in talking about goals of care with palliative care team (3) Cellulitis of left lower extremity without foot: Moderately severe diabetic cellulitis and abscess of left lower extremity- Placed on vancomycin IV and ceftriaxone IV. Previous (4) Hypertension: See above. (5) Diabetic peripheral neuropathy: Controlled with gabapentin. (6) Type II diabetes mellitus with complication, uncontrolled: Continue Levemir 25 units subcu at bedtime. Placed on Accu-Cheks with NovoLog coverage carb ratio and correction factor (7) Hyperlipidemia LDL goal <70: Continue rosuvastatin 20 mg every evening. (8) Hypothyroidism: Continue levothyroxine sodium 50 mcg daily (9) BPH (benign prostatic hyperplasia): Continue tamsulosin. (10) Elevated troponin: demand ischemia less likely acute coronary syndrome Subjective Patient is seen post dialysis he is feels markedly improved his left lower leg is erythematous but the patient says has been improved. I have received a phone call later in the day stating that the patient is now still considering withdrawing from dialysis treatment Review of Systems Review of Systems: ROS: well nourished well developed. No double vision blurry vision No problems with speech or swallowing No palpitations, chest pain or pressure No Wheezing feels markedly short of breath No abdominal pain nausea vomiting diarrhea changes in appetite or weight No burning urine urine frequency or changes in color No focal joint pain or muscle pain Erythema and open areas of his left anterior tibial area No focused back pain or numbness or loss of strength No changes in memory or confusion Physical Exam Physical Exam: The patient appeared chronically ill and fatigued. Vital signs as documented. Head exam is unremarkable. normocephalic, atraumatic Neck is without jugular venous distension, thyromegaly, or lymphademopathy Lungs are rales with bibasilar area Cardiac exam reveals Rhythm is regular. Systolic ejection murmur Abdominal exam reveals normal bowel sounds, no masses, no organomegaly Extremities are moderately edematous and both pedal pulses are present Neurologic exam is A&Ox3, no focal deficits, strength is equal bilateral Psychologically seems neither anxious or depressed Skin is warm Dry therefore sure lesions on his anterior left tibial area with erythema surrounding them Results & Data Vital Signs (Past 12 Hours) Vital Signs Temp Pulse Pulse Resp BP BP Pulse Ox 12/23/18 04:05 36.2 C L 51 L 18 138/64 99 12/23/18 03:52 51 L 22 153/111 H 99 12/23/18 02:00 50 L 20 143/73 H 95 12/23/18 01:00 51 L 20 145/56 H 95 12/22/18 23:51 51 L 14 149/64 H 98 12/22/18 22:32 36.3 C L 53 L 16 149/64 H 98 PG Care Time/CCT Total # of Minutes Spent Total Time Spent with Patient: Total time spent is greater than 50% in coordination of care (as documented) at patient's floor/unit and/or counseling patient: (1) BPH (benign prostatic hyperplasia) Lower urinary tract symptom presence: unspecified whether lower urinary tract symptoms present Qualified Code(s): N40.0 - Benign prostatic hyperplasia without lower urinary tract symptoms (2) Hypothyroidism Hypothyroidism type: acquired Qualified Code(s): E03.9 - Hypothyroidism, unspecified (3) Hypertension Hypertension type: essential hypertension Qualified Code(s): I10 - Essential (primary) hypertension
[2018-12-23] MEDS: CALCIUM ACETATE 667 MG CAP PO SCH ×3 (07:42→16:47)
[2018-12-23] MEDS: HydrALAZINE 10 MG TAB PO SCH ×3 (07:42→16:48)
[2018-12-23] MEDS: INSULIN ASPART 100 UNITS/ML 3 ML PEN SC SCH ×4 (07:46→20:43)
[2018-12-23] MEDS: PANTOprazole 40 MG TAB PO SCH ×2 (08:02→20:41)
[2018-12-23] MEDS: DOCUSATE SODIUM 100 MG CAP PO SCH (08:02)
[2018-12-23] MEDS: LABETALOL HCL 200 MG TAB PO SCH ×2 (08:02→20:42)
[2018-12-23] MEDS ORDERED: SODIUM CHLORIDE 0.9% 1000ML 1,000 ML IV PRN (08:53)
[2018-12-23] MEDS ORDERED: cefTRIAXone SODIUM 1,000 MG in DEXTROSE 5% 50 ML IV SCH (09:00)
[2018-12-23] MEDS ORDERED: EPOETIN ALFA 20,000 UNITS/ML VIAL IV SCH (09:10)
--- NOTE | 2018-12-23 10:40 | Nephrology Consultation ---
Date of Consultation December 23, 2018 Assessment & Plan (1) ESRD (end stage renal disease) on dialysis: 78-year-old gentlemen with end-stage renal disease secondary to hypertensive and diabetic nephropathy, has been on hemodialysis Saturday, , Saturday. He has been noncompliant with dialysis and repeatedly missing dialysis sessions. He had several admission over last few months after missing dialysis and having change in mental status with uremia. Admitted to the hospital with progressive shortness of breath, confusion and overall not feeling well. --plan for dialysis this afternoon for 4 hours with low blood flow considering Ms. dialysis and significantly elevated BUN and creatinine --Epogen 81228 units with dialysis --continue on his home antihypertensive medications --continue on phosphate binder and Nephrocaps --previously had multiple discussion with patient and family regarding goals of care and being compliant with medical treatment. Would recommend getting palliative care involved and have discussion with patient and family regarding ongoing dialysis and other medical treatment and importance of being compliant. Will follow Thank you for allowing me to participate in your patient's care. It was a pleasure to see Augie (2) Uremia: (3) Personal history of noncompliance with medical treatment, presenting hazards to health: (4) Elevated troponin: (5) Anemia: (6) Hypertension: (7) Secondary hyperparathyroidism of renal origin: History of Present Illness Reason for Consultation: End-stage renal disease on hemodialysis, missed dialysis. Attending Physician: Justo Villanueva MD History of Present Illness Augie Mcintyre is a 78-year-old gentlemen with past medical history significant for end-stage renal disease on hemodialysis, hypertension, diabetes and coronary artery disease brought to the emergency room by EMS as his family called the EMS with progressive shortness of breath and missed dialysis for 2 weeks. Nephrology consult was requested to manage hemodialysis. Augie has end-stage renal disease, has been on dialysis on Saturday, , Saturday as [facility]. He has left radiocephalic AV fistula his has been functioning well. Over last2 year he has been noncompliant with dialysis, repeatedly missing dialysis for days and sometime weeks or even months. Over last 3 weeks had dialysis only once on 12/11/2018 and he had no dialysis since. As he was getting progressively short of breath and overall feeling poorly, family called EMS and he was brought to ER last night. On admission chest x-ray was unremarkable, troponin was mildly elevated. Electrolytes are normal however BUN and creatinine significantly elevated, BUN above 100 and creatinine 16. Blood pressure has been stable. Overall he seems to be somewhat confused. He reports that he had dialysis last night at the dialysis unit however when I call the dialysis unit the staff reported to me that he did not have dialysis since December 11. Diseases 3rd or 4th hospital admission in last 6 months for change in mental status confusion and uremia related to missed dialysis treatment. He has anemia with end-stage renal disease and history of GI bleeding before. Had EGD and colonoscopy done over last 6 to 3 months at [facility]. Hemoglobin is relatively stable Currently he seem somewhat confused but denies any shortness of breath or chest pain. Clinically he does not seem to be volume overloaded, he continues to make urine. Allergies Allergy/AdvReac Type Severity Reaction Status Date / Time tramadol AdvReac Severe disorented Verified 12/22/18 23:43 ,falling down metformin AdvReac Intermediate CONFUSION Verified 12/22/18 23:43 Home Medications Home Medications Medication Instructions Recorded Confirmed Type docusate sodium 200 mg PO QAM 04/19/18 12/22/18 History gabapentin 100 mg PO HS 04/19/18 12/22/18 History lisinopril 40 mg PO DAILY@1200 04/19/18 12/22/18 History rosuvastatin 20 mg PO QPM 04/19/18 12/22/18 History pantoprazole 40 mg PO BID #60 tab 04/23/18 12/22/18 Rx Renal Caps 1 mg PO DAILY@1200 07/04/18 12/22/18 History doxazosin [Cardura] 1 mg PO DAILY@1200 07/04/18 12/22/18 History hydralazine 10 mg PO TIDM 07/04/18 12/22/18 History tamsulosin 0.4 mg PO QAM 10/05/18 12/22/18 History amlodipine 10 mg tablet 10 mg PO HS #90 tab 11/12/18 12/22/18 Rx calcium acetate 667 mg capsule 1,334 mg PO TIDM #180 cap 11/12/18 12/22/18 Rx insulin syringe U-100 with needle #1 ea 11/12/18 12/22/18 History 0.5 mL 30 gauge x 1/2" labetalol 100 mg tablet 400 mg PO BID #720 tab 12/08/18 12/22/18 Rx levothyroxine 200 mcg tablet 200 mcg PO .COMPLEX #30 tab 12/15/18 12/22/18 Rx levothyroxine 50 mcg tablet 50 mcg PO .COMPLEX #30 tab 12/15/18 12/22/18 Rx furosemide 80 mg PO AMPM 12/22/18 12/22/18 History insulin detemir U-100 [Levemir 25 units SUBCUT HS 12/22/18 12/22/18 History U-100 Insulin] Patient History Medical History Anemia BPH (benign prostatic hyperplasia) Hypothyroidism Secondary hyperparathyroidism of renal origin COPD (chronic obstructive pulmonary disease) Acute on chronic respiratory failure (Resolved) Altered mental status (Resolved) Chest pain (Resolved) Epistaxis (Resolved) Fluid overload (Resolved) Hypertensive urgency (Resolved) AVF (arteriovenous fistula) Abnormal colonoscopy Surgical History H/O cardiac catheterization H/O hemorrhoidectomy Hx of cholecystectomy No pertinent past surgical history Family History Unknown Myocardial infarction Diabetes Mother Diabetes Gallbladder disease Hypertension Breast cancer late 70s Father Diabetes Hypertension Brother Diabetes Hypertension Kidney disease Social History Preferred Language: Panamanian Communication Ability: Effective Beliefs That Will Affect Care: None marital status: Current Living Situation: Spouse current occupational status: employed current occupation: works part-time at [employer] Other Information That Helps Us Care for You: No Feels Safe at Home: Yes Safety Concerns: Feels Safe At This Time Smoking Status: Former smoker Tobacco Type: cigarettes Second Hand Exposure: No Hx Alcohol Use: No Hx Substance Use: No Childhood Exposure to Second-Hand Smoke: No caffeine: Yes Dental Care, Regularly: Yes Physical Activity Frequency Comment: limited due physical condition Seatbelt Use: sometimes Review of Systems Review of Systems: All systems reviewed & are unremarkable except as noted in HPI & below Physical Exam Constitutional: WD/WN, vitals as above + ill appearing and + frail appearing Eyes: PERRL, conjunctivae normal, anicteric sclerae ENMT: external ear and nose normal, oropharynx normal Neck: trachea midline, no thyromegaly Respiratory: normal respiratory effort, lungs clear to auscultation Cardiovascular: RRR, no murmur, no edema Musculoskeletal: Extremities: extremities normal to inspection Skin: no rashes, warm and dry Neurologic: moves all extremities, awake and + confused Psychiatric: A+Ox3, euthymic affect Results & Data Vital Signs (Past 12 Hours) Vital Signs Temp Pulse Pulse Resp BP BP Pulse Ox 12/23/18 08:00 36.4 C L 54 L 20 150/66 H 96 12/23/18 04:05 36.2 C L 51 L 18 138/64 99 12/23/18 03:52 51 L 22 153/111 H 99 12/23/18 02:00 50 L 20 143/73 H 95 12/23/18 01:00 51 L 20 145/56 H 95 12/22/18 23:51 51 L 14 149/64 H 98 (1) Hypertension Hypertension type: essential hypertension Qualified Code(s): I10 - Essential (primary) hypertension
--- NOTE | 2018-12-23 12:28 | Pharmacy Report ---
Pharmacy Abx Initial Consult - Date of Service December 23, 2018 - Pharmacy Dosing Scope Date of Consult: 12/23/18 Consultation requested by: Dr. Ashby Pharmacy is consulted to initiate Vancomycin IV dosing therapy, order appropriate labs and adjust drug dose/frequency. - Subjective The patient is a 78 year old M admitted on 12/23/18 02:20. - Objective Height: 6 ft 1 in Weight: 103.1 kg Vital Signs (Past 12hrs): Vital Signs Temp Pulse Pulse Pulse Resp BP BP 12/23/18 11:40 55 L 157/64 H 12/23/18 11:20 53 L 149/67 H 12/23/18 11:00 53 L 143/69 H 12/23/18 10:40 51 L 129/55 L 12/23/18 10:20 52 L 121/65 12/23/18 10:11 36.9 C 51 L 12/23/18 08:00 36.4 C L 54 L 20 150/66 H 12/23/18 04:05 36.2 C L 51 L 18 138/64 12/23/18 03:52 51 L 22 153/111 H 12/23/18 02:00 50 L 20 143/73 H 12/23/18 01:00 51 L 20 145/56 H Pulse Ox 12/23/18 11:40 12/23/18 11:20 12/23/18 11:00 12/23/18 10:40 12/23/18 10:20 12/23/18 10:11 12/23/18 08:00 96 12/23/18 04:05 99 12/23/18 03:52 99 12/23/18 02:00 95 12/23/18 01:00 95 Lab Results (24hrs): Laboratory Tests (24 Hours) 12/22/18 12/22/18 22:42 22:42 WBC 3.48 L Neut # (Auto) 2.38 Creatinine 15.20 H* Est Cr Clr Drug Dosing 5.3 Micro Results: Laboratory Tests 12/23/18 04:18 Nasal Screen MRSA (PCR) Negative 12/22/18 23:26 Aerobic Blood Culture - Pending Blood Anaerobic Blood Culture - Pending 12/22/18 23:16 Aerobic Blood Culture - Pending Blood Anaerobic Blood Culture - Pending - Risk Factors for Resistance * Chronic dialysis within the past 30 days - Assessment & Plan Assessment 78 year old M started on IV vancomycin and ceftriaxone for left lower extremity cellulitis Patient has PMHx significant for ESRD on HD TTS for which he has been non- compliant (serum creatinine upon admission was 15.2 mg/dL) and diabetes mellitus Patient is scheduled to have a 4-hour HD session today per Nephrology Plan Vancomycin for treatment of left lower extremity cellulitis/diabetic foot infection Vancomycin IV * Estimated PK Parameters: patient is chronically on HD * Loading dose: 2250 mg (22 mg/kg) * No maintenance dose given ESRD on HD * Goal trough level for cellulitis/diabetic foot infection: 10 to 20 mcg/mL * Random level ordered for 12/24/18 with AM labs given patient receiving HD today * Depending on random level with AM labs, patient may require a small IV vancomycin dose tomorrow Pharmacy will continue to follow and will adjust dose/frequency as necessary. Thank you.
[2018-12-23] MEDS: LISINOPRIL 40 MG TAB PO SCH (14:47)
[2018-12-23] MEDS: NEPHROCAPS PO SCH (14:47)
[2018-12-23] MEDS: DOXAZOSIN MESYLATE 1 MG TAB PO SCH (14:47)
[2018-12-23] MEDS: HALOPERIDOL LACTATE 5 MG/ML 1 ML VIAL IV PRN ×2 (19:50→21:57)
[2018-12-23] MEDS: AMLODIPINE BESYLATE 5 MG TAB PO SCH (20:40)
[2018-12-23] MEDS: GABAPENTIN 100 MG CAP PO SCH (20:41)
[2018-12-23] MEDS: TAMSULOSIN HCL 0.4 MG CAP PO SCH (20:42)
[2018-12-23] MEDS: ROSUVASTATIN CALCIUM 20 MG TAB PO SCH (20:42)
[2018-12-23] MEDS ORDERED: INSULIN DETEMIR FLEXPEN/FLEX TOUCH 100 UNITS/ML 3ML SC SCH (21:00)
[2018-12-23] MEDS ORDERED: LORazepam 0.25 MG/0.5 ML VIAL IV STA (22:30)
[2018-12-23] MEDS ORDERED: OLANZAPINE 2.5 MG TAB PO ONE (22:32)
[2018-12-24] MEDS: cefTRIAXone SODIUM 2,000 MG in DEXTROSE 5% 50 ML IV SCH (06:23)
[2018-12-24] MEDS: LEVOTHYROXINE SODIUM 125 MCG TABLET PO SCH (06:23)
[2018-12-24] MEDS ORDERED: SODIUM CHLORIDE 0.9% 1000ML 1,000 ML IV PRN (07:00)
[2018-12-24] MEDS: DEXTROSE 50% 50 ML SYRINGE IV PRN ×3 (07:22→15:19)
[2018-12-24] MEDS: INSULIN ASPART 100 UNITS/ML 3 ML PEN SC SCH ×4 (08:21→22:08)
--- NOTE | 2018-12-24 09:15 | Pharmacy Report ---
Pharmacy Abx Dose Short Note - Date of Service December 24, 2018 - Assessment & Plan Assessment 78 year old M receiving IV Vancomycin and Ceftriaxone for treatment of LLE cellulitis Day # 2 of antimicrobial therapy Patient has PMH significant for ESRD on HD TTS for which he has been non-complia nt and DM Patient had HD yesterday and is scheduled for HD again this morning per nephrology Blood cultures show no growth to date Plan Vancomycin * Random level of 12.8 mcg/mL is therapeutic * Give IV Vancomycin 1000 mg IV x 1 following HD today * Goal trough level for cellulitis: 15 to 20 mcg/mL * Plan for random with AM labs prior to next HD session Pharmacy will continue to follow and will adjust dose/frequency as necessary. Thank you.
[2018-12-24] MEDS: HydrALAZINE 10 MG TAB PO SCH ×3 (10:07→17:39)
[2018-12-24] MEDS: CALCIUM ACETATE 667 MG CAP PO SCH ×3 (10:08→17:39)
[2018-12-24] MEDS: FUROSEMIDE 80 MG TAB PO SCH ×2 (10:08→17:39)
--- NOTE | 2018-12-24 10:18 | Dialysis Progress Note ---
Date of Service December 24, 2018 Assessment & Plan (1) ESRD (end stage renal disease) on dialysis: 78-year-old gentlemen with end-stage renal disease secondary to hypertensive and diabetic nephropathy, has been on hemodialysis Saturday, , Saturday. He has been noncompliant with dialysis and repeatedly missing dialysis sessions. He had several admission over last few months after missing dialysis and having change in mental status with uremia. Admitted to the hospital with progressive shortness of breath, confusion and overall not feeling well secondary to metabolic encephalopathy. --getting dialysis now, tolerating well. --continue on his home antihypertensive medications --continue on phosphate binder and Nephrocaps --previously had multiple discussion with patient and family regarding goals of care and being compliant with medical treatment. Overall doing poorly with c onfusion and restlessness with metabolic encephalopathy. Would be best to have a meeting with pt and family tomorrow morning and get palliative care involved and have discussion regarding goals of care and ongoing dialysis and other medical treatment and importance of being compliant. Will follow Thank you for allowing me to participate in your patient's care. It was a pleasure to see Don (2) Uremia: (3) Personal history of noncompliance with medical treatment, presenting hazards to health: (4) Elevated troponin: (5) Anemia: (6) Hypertension: (7) Secondary hyperparathyroidism of renal origin: Subjective Don was seen during dialysis with sitter at bedside. He remained confused, and restless, did not answer any q. Vitals stable. Physical Exam Constitutional: WD/WN, vitals as above + acute distress, + ill appearing, + altered mental status and + frail appearing restless. Neck: trachea midline, no thyromegaly Respiratory: normal respiratory effort, lungs clear to auscultation Cardiovascular: RRR, no murmur, no edema Neurologic: moves all extremities, awake and + confused Psychiatric: A+Ox3, euthymic affect Results & Data Vital Signs (Past 12 Hours) Vital Signs Temp Pulse Resp BP 12/24/18 03:49 36.8 C 63 14 158/68 H 12/24/18 00:49 36.7 C 60 15 146/65 H (1) Hypertension Hypertension type: essential hypertension Qualified Code(s): I10 - Essential (primary) hypertension
[2018-12-24] MEDS: NEPHROCAPS PO SCH (11:33)
[2018-12-24] MEDS: DOXAZOSIN MESYLATE 1 MG TAB PO SCH (14:28)
[2018-12-24] MEDS: DOCUSATE SODIUM 100 MG CAP PO SCH (14:28)
[2018-12-24] MEDS: LABETALOL HCL 200 MG TAB PO SCH ×2 (14:28→20:41)
[2018-12-24] MEDS: PANTOprazole 40 MG TAB PO SCH ×2 (14:28→20:45)
--- NOTE | 2018-12-24 14:28 | Hospitalist Progress Note ---
Date of Service December 24, 2018 Assessment & Plan (1) ESRD (end stage renal disease) on dialysis: Patient presents to the emergency department with shortness of breath, anasarca, having missed the last 4 dialysis treatments unclear if pt want to consider stopping dialysis once again pursuing palliative care, or continue forward with persistent dialysis, however the pt had some in hospital delerium and was sedated and unable to voice his decisions once able to be awak will ontinue amlodipine 10 mg daily at bedtime, doxazosin 1 mg p.o. daily at noon, furosemide 80 mg p.o. twice daily, hydralazine 10 mg p.o. 3 times daily with meals, labetalol 40 mg p.o. twice daily and lisinopril 40 mg p.o. daily., however while delerius and sedated was unable to take po meds and iv hydralaine and metoprolol was used (2) Personal history of noncompliance with medical treatment, presenting hazards to health: The patient has a history of missing several dialysis treatments in a row as noted today and has been noted in the record in the past., Patient may be interested in talking about goals of care with palliative care team (3) Cellulitis of left lower extremity without foot: Moderately severe diabetic cellulitis and abscess of left lower extremity- Placed on vancomycin IV and ceftriaxone IV. seems to be improving and not feeling to contribute to any metabolic encephalopathy (4) Hypertension: See above., needed some iv control on 12/24 (5) Diabetic peripheral neuropathy: Controlled with gabapentin. (6) Type II diabetes mellitus with complication, uncontrolled: Continue Levemir 25 units subcu at bedtime. Placed on Accu-Cheks with NovoLog coverage carb ratio and correction factor (7) Hyperlipidemia LDL goal <70: Continue rosuvastatin 20 mg every evening. (8) Hypothyroidism: remains on levothyroxine 50 mcg daily (9) BPH (benign prostatic hyperplasia): has been continued on tamsulosin. (10) Elevated troponin: demand ischemia less likely acute coronary syndrome Subjective Patient is significantly sedated as he had a rough night with agitation requiring sedation. This is remaining a hangover effect throughout the afternoon however he did wake up slightly to attempt to follow commands he was grasping at things in the air that were not there. There was some discussion of the past about him when to stop dialysis however at this point time is unclear whether he wishes to proceed or not. He did go through dialysis session on 12/24 Review of Systems Review of Systems: Unobtainable due to cognitive status Physical Exam Physical Exam: The patient appeared well nourished and normally developed. Vital signs as documented. Head exam is unremarkable. normocephalic, atraumatic Neck is without jugular venous distension, thyromegaly, or lymphademopathy Lungs are diminished at the bases Cardiac exam reveals Rhythm is regular. First and second heart sounds normal. Abdominal exam reveals normal bowel sounds, no masses, no organomegaly Extremities are mildly edematous and both pedal pulses are present Neurologic exam is obtunded, awakens to spontaneously move all extremities Skin is warm Dry without bruises or lesions Results & Data Vital Signs (Past 12 Hours) Vital Signs Temp Pulse Pulse Resp BP BP Pulse Ox 12/24/18 14:00 74 12/24/18 11:00 70 173/97 H 12/24/18 10:40 65 178/94 H 12/24/18 10:20 66 191/86 H 12/24/18 10:00 65 190/110 H 12/24/18 09:40 65 183/73 H 12/24/18 09:15 37.1 C 59 L 12/24/18 08:00 36.5 C 63 64 20 165/79 H 94 12/24/18 03:49 36.8 C 63 14 158/68 H PG Care Time/CCT Total # of Minutes Spent Total Time Spent with Patient: Total time spent is greater than 50% in coordination of care (as documented) at patient's floor/unit and/or counseling patient: (1) BPH (benign prostatic hyperplasia) Lower urinary tract symptom presence: unspecified whether lower urinary tract symptoms present Qualified Code(s): N40.0 - Benign prostatic hyperplasia without lower urinary tract symptoms (2) Hypothyroidism Hypothyroidism type: acquired Qualified Code(s): E03.9 - Hypothyroidism, unspecified (3) Hypertension Hypertension type: essential hypertension Qualified Code(s): I10 - Essential (primary) hypertension
[2018-12-24] MEDS: LISINOPRIL 40 MG TAB PO SCH (14:29)
[2018-12-24] MEDS: HydrALAZINE HCL 20 MG/ML VIAL IV PRN (14:38)
[2018-12-24] MEDS: HALOPERIDOL LACTATE 5 MG/ML 1 ML VIAL IV PRN (15:52)
[2018-12-24] MEDS ORDERED: VANCOMYCIN HCL 1,000 MG in SODIUM CHLORIDE 0.9% 250 ML IV ONE (16:00)
[2018-12-24] MEDS: METOPROLOL TARTRATE 1 MG/ML VIAL IV PRN (20:34)
[2018-12-24] MEDS: GABAPENTIN 100 MG CAP PO SCH (20:41)
[2018-12-24] MEDS: ROSUVASTATIN CALCIUM 20 MG TAB PO SCH (20:41)
[2018-12-24] MEDS: TAMSULOSIN HCL 0.4 MG CAP PO SCH (20:41)
[2018-12-24] MEDS: AMLODIPINE BESYLATE 5 MG TAB PO SCH (20:41)
[2018-12-24] MEDS ORDERED: OLANZAPINE 2.5 MG TAB PO ONE (21:36)
[2018-12-24] MEDS ORDERED: LORazepam 0.25 MG/0.5 ML VIAL IV STA (21:36)
[2018-12-24] MEDS: INSULIN DETEMIR FLEXPEN/FLEX TOUCH 100 UNITS/ML 3ML SC SCH (22:07)
[2018-12-25] MEDS: HydrALAZINE HCL 20 MG/ML VIAL IV PRN (04:13)
[2018-12-25] MEDS: LEVOTHYROXINE SODIUM 125 MCG TABLET PO SCH (06:39)
[2018-12-25] MEDS: cefTRIAXone SODIUM 2,000 MG in DEXTROSE 5% 50 ML IV SCH (06:55)
[2018-12-25] MEDS ORDERED: SODIUM CHLORIDE 0.9% 1000ML 1,000 ML IV PRN (07:00)
[2018-12-25 07:03] LABS: Hematocrit (blood only) 27.7 % (42-52); Hemoglobin 8.7 g/dL (14.0-18.0); Mean Corpuscular Hgb Conc 31.4 g/dL (32-36); Mean Corpuscular Volume 86.6 fL (80-100); Mean Platelet Volume 11.9 fL (7.4-10.4); Platelet Count 103 K/uL (130-400); RDW Coefficient of Variation 17.2 % (11.5-14.5); RDW Standard Deviation 54.8 fL (36.4-46.3); White Blood Count 4.53 K/uL (4.8-10.8)
--- NOTE | 2018-12-25 07:34 | Pharmacy Report ---
Pharmacy Abx Dose Short Note - Date of Service December 25, 2018 - Assessment & Plan Assessment 78 year old M receiving IV Vancomycin and Ceftriaxone for treatment of LLE Cellulitis Day # 3 of antimicrobial therapy Patient has PMH significant for ESRD on HD TTS for which he has been non- compliant and DM Patient is scheduled for HD again this morning per nephrology Blood cultures show no growth to date Plan Vancomycin * Random level of 17.1 mcg/mL is therapeutic * Give 750 mg IV once following dialysis today * Goal trough level for Cellulitis : 15 to 20 mcg/mL * Plan for pre-HD with AM labs prior to next HD session Pharmacy will continue to follow and will adjust dose/frequency as necessary. Thank you.
[2018-12-25 07:43] LABS: Albumin Level 2.9 gm/dl (3.4-5.0); BUN Creatinine Ratio 8.4 (10-20); Est GFR (African American) 7.1; Est GFR (Non-African American) 6.1; Phosphorus 5.3 mg/dl (2.5-4.9); Potassium 3.9 mmol/L (3.5-5.1)
[2018-12-25] MEDS: INSULIN ASPART 100 UNITS/ML 3 ML PEN SC SCH ×4 (07:56→20:53)
[2018-12-25] MEDS: CALCIUM ACETATE 667 MG CAP PO SCH ×3 (09:15→17:27)
[2018-12-25] MEDS: HydrALAZINE 10 MG TAB PO SCH ×3 (09:15→17:26)
[2018-12-25] MEDS: PANTOprazole 40 MG TAB PO SCH ×2 (09:16→20:53)
[2018-12-25] MEDS: DOCUSATE SODIUM 100 MG CAP PO SCH (09:16)
[2018-12-25] MEDS: LABETALOL HCL 200 MG TAB PO SCH ×2 (09:16→20:50)
[2018-12-25] MEDS: FUROSEMIDE 80 MG TAB PO SCH ×2 (09:16→17:27)
--- NOTE | 2018-12-25 09:39 | CT Scan Report ---
HEAD CT NONCONTRAST CT DOSE: 921.40 mGy.cm HISTORY: acute mental status changes TECHNIQUE: Multiaxial CT images of the head were performed without the use of intravenous contrast. A utomated exposure control was utilized for this study. A dose lowering technique was utilized adheri ng to the principles of ALARA. Comparison: Head CT 10/31/2018. Findings: Polypoid mucosal thickening within the paranasal sinuses and postoperative changes are agai n noted. The mastoid air cells are clear. The calvarium and skull base are intact. There is no mass, hematoma, midline shift, acute infarct. White matter hypodensity is nonspecific but suggestive of byron rovascular ischemic change. The ventricles and sulci demonstrate mild age-related involutional change s. 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 Impression: No significant change compared to the prior study. No acute intracranial abnormality. Electronically signed by: Jose C Jaeger M.D. 12/25/2018 9:37 AM
--- NOTE | 2018-12-25 10:19 | Dialysis Progress Note ---
Date of Service December 25, 2018 Assessment & Plan (1) ESRD (end stage renal disease) on dialysis: 78-year-old gentlemen with end-stage renal disease secondary to hypertensive and diabetic nephropathy, has been on hemodialysis Saturday, , Saturday. He has been noncompliant with dialysis and repeatedly missing dialysis sessions. He had several admission over last few months after missing dialysis and having change in mental status with uremia. Admitted to the hospital with progressive shortness of breath, confusion and overall not feeling well secondary to metabolic encephalopathy. --getting dialysis now, tolerating well. --continue on his home antihypertensive medications --continue on phosphate binder and Nephrocaps --previously had multiple discussion with patient and family regarding goals of care and being compliant with medical treatment. Overall doing poorly with c onfusion and restlessness with metabolic encephalopathy. Would be best to have a meeting with palliative care involved and have discussion regarding goals of care and ongoing dialysis and other medical treatment and importance of being compliant, when patient is more awake and alert. Will follow Thank you for allowing me to participate in your patient's care. It was a pleasure to see Don (2) Uremia: (3) Personal history of noncompliance with medical treatment, presenting hazards to health: (4) Elevated troponin: (5) Anemia: (6) Hypertension: (7) Secondary hyperparathyroidism of renal origin: Subjective Don was seen during dialysis. He remained lethargic, confused, did respond to knee and opened is did not answer any q. Vitals stable. Physical Exam Constitutional: WD/WN, vitals as above + acute distress, + ill appearing, + altered mental status and + frail appearing Eyes: PERRL, conjunctivae normal, anicteric sclerae ENMT: external ear and nose normal, oropharynx normal Neck: trachea midline, no thyromegaly Respiratory: normal respiratory effort, lungs clear to auscultation Cardiovascular: RRR, no murmur, no edema Musculoskeletal: Extremities: extremities normal to inspection Skin: no rashes, warm and dry Neurologic: moves all extremities, awake and + confused Psychiatric: A+Ox3, euthymic affect Results & Data Vital Signs (Past 12 Hours) Vital Signs Temp Pulse Resp BP Pulse Ox 12/25/18 07:05 37.0 C 88 22 174/79 H 95 12/25/18 03:48 36.8 C 66 19 184/65 H 93 12/24/18 23:07 36.5 C 70 20 172/71 H 99 (1) Hypertension Hypertension type: essential hypertension Qualified Code(s): I10 - Essential (primary) hypertension
--- NOTE | 2018-12-25 13:38 | Hospitalist Progress Note ---
Date of Service December 25, 2018 Assessment & Plan (1) ESRD (end stage renal disease) on dialysis: Patient presents to the emergency department with shortness of breath, anasarca, having missed the last 4 dialysis treatments unclear if pt want to consider stopping dialysis once again pursuing palliative care, or continue forward with persistent dialysis, however the pt had some in hospital delerium and was sedated once again overnight from and is unable to voice his decisions. I spoke to his who is not comfortable making a decision regarding this once able to be awake will ontinue amlodipine 10 mg daily at bedtime, doxazosin 1 mg p.o. daily at noon, furosemide 80 mg p.o. twice daily, hydralazine 10 mg p.o. 3 times daily with meals, labetalol 40 mg p.o. twice daily and lisinopril 40 mg p.o. daily., however while suffering from toxic encephalopathy and sedated was unable to take po meds and iv hydralaine and metoprolol was used CT head was performed there are any intracranial issues. We will hold Ativan at this time (2) Personal history of noncompliance with medical treatment, presenting hazards to health: The patient has a history of missing several dialysis treatments in a row as noted today and has been noted in the record in the past., Patient may be interested in talking about goals of care with palliative care team (3) Cellulitis of left lower extremity without foot: Moderately severe diabetic cellulitis and abscess of left lower extremity- Placed on vancomycin IV and ceftriaxone IV. seems to be improving and not feeling to contribute to any metabolic encephalopathy (4) Hypertension: See above., needed some iv control on 12/24 (5) Diabetic peripheral neuropathy: Controlled with gabapentin. (6) Type II diabetes mellitus with complication, uncontrolled: Continue Levemir 25 units subcu at bedtime. Placed on Accu-Cheks with NovoLog coverage carb ratio and correction factor (7) Hyperlipidemia LDL goal <70: Continue rosuvastatin 20 mg every evening. (8) Hypothyroidism: remains on levothyroxine 50 mcg daily (9) BPH (benign prostatic hyperplasia): has been continued on tamsulosin. (10) Elevated troponin: demand ischemia less likely acute coronary syndrome Subjective Patient is been sedated again last night due to behavior he is arousable to voice and stimulus but not to conversation does not follow commands this morning. I called his and updated her with performing a head CT to evaluate for possible intracranial issues that are causing his increased confusion over the last 2 days Review of Systems Review of Systems: Unobtainable due to cognitive status Physical Exam Physical Exam: The patient appeared lethargic Vital signs as documented. Blood pressure is elevated Head exam is unremarkable. normocephalic, atraumatic pupils are smaller than expected to slightly react Neck is without jugular venous distension, thyromegaly, or lymphademopathy Lungs are clear with rhonchi at the bases Cardiac exam reveals Rhythm is regular. Systolic ejection murmur Abdominal exam reveals normal bowel sounds, no masses, no organomegaly Extremities are mild to moderately edematous and both pedal pulses are present Neurologic exam is obtunded withdraws from to pain does arouse with voice but falls back to sleep easily Skin is warm Dry Results & Data Vital Signs (Past 12 Hours) Vital Signs Temp Pulse Pulse Resp BP BP Pulse Ox 12/25/18 13:20 58 L 181/89 H 12/25/18 13:00 63 168/75 H 12/25/18 12:40 64 152/63 H 12/25/18 12:20 59 L 151/65 H 12/25/18 12:00 58 L 165/65 H 12/25/18 11:40 61 161/71 H 12/25/18 11:20 64 147/63 H 12/25/18 11:00 59 L 156/84 H 12/25/18 10:40 60 151/65 H 12/25/18 10:20 60 139/63 12/25/18 10:05 60 139/63 12/25/18 09:28 36.6 C 60 12/25/18 07:05 37.0 C 88 22 174/79 H 95 12/25/18 03:48 36.8 C 66 19 184/65 H 93 PG Care Time/CCT Total # of Minutes Spent Total Time Spent with Patient: Total time spent is greater than 50% in coordination of care (as documented) at patient's floor/unit and/or counseling patient: (1) BPH (benign prostatic hyperplasia) Lower urinary tract symptom presence: unspecified whether lower urinary tract symptoms present Qualified Code(s): N40.0 - Benign prostatic hyperplasia without lower urinary tract symptoms (2) Hypothyroidism Hypothyroidism type: acquired Qualified Code(s): E03.9 - Hypothyroidism, unspecified (3) Hypertension Hypertension type: essential hypertension Qualified Code(s): I10 - Essential (primary) hypertension
[2018-12-25] MEDS ORDERED: VANCOMYCIN HCL 750 MG in SODIUM CHLORIDE 0.9% 250 ML IV ONE (16:00)
[2018-12-25] MEDS: NEPHROCAPS PO SCH (16:53)
--- NOTE | 2018-12-25 16:56 | Ultrasound Report ---
ULTRASOUND OF THE CAROTID ARTERIES CLINICAL HISTORY: Change in mental status. COMPARISON STUDY: No priors. TECHNIQUE: Real-time, grayscale, and color Doppler sonography of the carotid arteries is performed. I mages are reviewed in the transverse and longitudinal planes. FINDINGS: Blood pressures were not assessed due to limb restrictions. The carotid arteries are patent bilaterally and demonstrate antegrade flow. There is moderate echogen ic shadowing atherosclerotic plaque seen bilaterally. Normal doppler arterial waveforms are seen thro ughout. Velocity measurements are listed below. Common carotid peak systolic velocity (cm/sec): RIGHT: 86 LEFT: 100 ICA proximal peak systolic velocity (cm/sec): RIGHT: 93 LEFT: 69 ICA mid peak systolic velocity (cm/sec): RIGHT: 56 LEFT: 84 ICA distal peak systolic velocity (cm/sec): RIGHT: 62 LEFT: 89 ICA/CC peak systolic ratio: RIGHT: 1.1 LEFT: 0.9 Antegrade flow was shown in the vertebral arteries. The external carotid arteries are patent. IMPRESSION: 1. Atherosclerotic plaque with no sonographic evidence of hemodynamically significant stenosis in the right or left carotid arterial system. 2. Antegrade flow is shown in the vertebral arteries. Electronically signed by: Shayan Gonzalez M.D. 12/25/2018 4:55 PM
[2018-12-25] MEDS: DOXAZOSIN MESYLATE 1 MG TAB PO SCH (17:25)
[2018-12-25] MEDS: LISINOPRIL 40 MG TAB PO SCH (17:26)
[2018-12-25] MEDS: TAMSULOSIN HCL 0.4 MG CAP PO SCH (20:51)
[2018-12-25] MEDS: GABAPENTIN 100 MG CAP PO SCH (20:51)
[2018-12-25] MEDS: INSULIN DETEMIR FLEXPEN/FLEX TOUCH 100 UNITS/ML 3ML SC SCH (20:52)
[2018-12-25] MEDS: AMLODIPINE BESYLATE 5 MG TAB PO SCH (20:53)
[2018-12-25] MEDS: HALOPERIDOL LACTATE 5 MG/ML 1 ML VIAL IV PRN (23:30)
[2018-12-26] MEDS ORDERED: FAMOTIDINE 20 MG in SYRINGE 3 ML IV ONE (01:00)
[2018-12-26] MEDS: HALOPERIDOL LACTATE 5 MG/ML 1 ML VIAL IV PRN ×4 (02:21→23:50)
[2018-12-26] MEDS: LEVOTHYROXINE SODIUM 125 MCG TABLET PO SCH (04:53)
[2018-12-26] MEDS: D5W AND NSS 1,000 ML IV SCH ×2 (05:52→19:58)
[2018-12-26] MEDS: cefTRIAXone SODIUM 2,000 MG in DEXTROSE 5% 50 ML IV SCH (05:54)
[2018-12-26] MEDS: INSULIN ASPART 100 UNITS/ML 3 ML PEN SC SCH ×4 (07:37→20:00)
[2018-12-26] MEDS: DEXTROSE 50% 50 ML SYRINGE IV PRN ×2 (07:41→11:49)
[2018-12-26] MEDS: DOCUSATE SODIUM 100 MG CAP PO SCH (09:28)
[2018-12-26] MEDS: FUROSEMIDE 80 MG TAB PO SCH ×2 (09:28→16:52)
[2018-12-26] MEDS: HydrALAZINE 10 MG TAB PO SCH ×3 (09:28→16:52)
[2018-12-26] MEDS: LABETALOL HCL 200 MG TAB PO SCH ×2 (09:28→19:59)
[2018-12-26] MEDS: CALCIUM ACETATE 667 MG CAP PO SCH ×3 (09:28→16:52)
[2018-12-26] MEDS: PANTOprazole 40 MG TAB PO SCH ×2 (09:29→20:00)
--- NOTE | 2018-12-26 09:52 | Nephrology Progress Note ---
Date of Service December 26, 2018 Assessment & Plan (1) ESRD (end stage renal disease) on dialysis: 78-year-old gentlemen with end-stage renal disease secondary to hypertensive and diabetic nephropathy, has been on hemodialysis Saturday, , Saturday. He has been noncompliant with dialysis and repeatedly missing dialysis sessions. He had several admission over last few months after missing dialysis and having change in mental status with uremia. Admitted to the hospital with progressive shortness of breath, confusion and overall not feeling well secondary to metabolic encephalopathy. Had daily dialysis, BUN/cr improved but remained somewhat confused and less responsive. Head CT was negative. --will keep on TTS schedule for HD --continue on his home antihypertensive medications --continue on phosphate binder and Nephrocaps --unclear etiology for persistent confusion and altered mental state, ? meds Will follow Thank you for allowing me to participate in your patient's care. It was a pleasure to see Augie (2) Uremia: (3) Personal history of noncompliance with medical treatment, presenting hazards to health: (4) Elevated troponin: (5) Anemia: (6) Hypertension: (7) Secondary hyperparathyroidism of renal origin: Subjective Augie was seen and examined this am. He remained lethargic, confused, did respond to name and opened eyes but did not communicate in a meaning way.Vitals stable. Review of Systems Review of Systems: Unobtainable due to cognitive status Physical Exam Constitutional: WD/WN, vitals as above + acute distress, + ill appearing, + altered mental status and + frail appearing Eyes: PERRL, conjunctivae normal, anicteric sclerae ENMT: external ear and nose normal, oropharynx normal Neck: trachea midline, no thyromegaly Respiratory: normal respiratory effort, lungs clear to auscultation Cardiovascular: RRR, no murmur, no edema Musculoskeletal: Extremities: extremities normal to inspection Skin: no rashes, warm and dry Neurologic: moves all extremities, awake and + confused Results & Data Vital Signs (Past 12 Hours) Vital Signs Temp Pulse Resp BP Pulse Ox 12/26/18 07:00 36.8 C 58 L 20 179/73 H 100 12/26/18 03:00 36.8 C 64 24 166/47 H 90 12/26/18 00:06 36.0 C L 58 L 24 170/68 H 100 12/25/18 22:17 64 180/64 H (1) Hypertension Hypertension type: essential hypertension Qualified Code(s): I10 - Essential (primary) hypertension
[2018-12-26] MEDS: DOXAZOSIN MESYLATE 1 MG TAB PO SCH (12:19)
[2018-12-26] MEDS: LISINOPRIL 40 MG TAB PO SCH (12:19)
[2018-12-26] MEDS: NEPHROCAPS PO SCH (12:19)
--- NOTE | 2018-12-26 16:17 | Hospitalist Progress Note ---
Date of Service December 26, 2018 Assessment & Plan (1) ESRD (end stage renal disease) on dialysis: Patient presented to the emergency department with shortness of breath, anasarca, having missed the last 4 dialysis treatments unclear if pt want to consider stopping dialysis once again pursuing palliative care, or continue forward with persistent dialysis, however the pt continues with in hospital delerium and was sedated once again overnight I spoke to his who is not comfortable making a decision regarding this. we will attempt to use some scheduled seroquel to see if we can avoid significant sedation overnight 12/26- so that he maybe more alert, will check full serologies in am 12/27 typical home medications include amlodipine 10 mg daily at bedtime, doxazosin 1 mg p.o. daily at noon, furosemide 80 mg p.o. twice daily, hydralazine 10 mg p.o. 3 times daily with meals, labetalol 40 mg p.o. twice daily and lisinopril 40 mg p.o. daily., however while suffering from toxic encephalopathy and sedated was unable to take po meds and iv hydralaine and metoprolol are used for blood pressure control CT head was performed 12/25 without any intracranial issues. (2) Personal history of noncompliance with medical treatment, presenting hazards to health: The patient has a history of missing several dialysis treatments in a row as noted today and has been noted in the record in the past., Patient may be interested in talking about goals of care with palliative care team, when he is clear he remains unsure of his final decision. (3) Cellulitis of left lower extremity without foot: Moderately severe diabetic cellulitis and abscess of left lower extremity- greatly improved after vancomycin IV and ceftriaxone IV. will de escalate to ceftriaxone only (4) Hypertension: See above., needed some iv control intremittently (5) Diabetic peripheral neuropathy: Usually controlled with gabapentin. (6) Type II diabetes mellitus with complication, uncontrolled: has had challenges with variable eating will hold basal insulin Placed on Accu-Cheks with NovoLog coverage carb ratio and correction factor (7) Hyperlipidemia LDL goal <70: hold rosuvastatin 20 mg (8) Hypothyroidism: remains on levothyroxine 50 mcg daily (9) BPH (benign prostatic hyperplasia): has been continued on tamsulosin. (10) Elevated troponin: demand ischemia less likely acute coronary syndrome Subjective Patient remains to have sundowning with sedation in the daily sedation preventing meaningful conversation about his goals of care and whether he wishes to continue dialysis or not. Family at the bedside was updated. Mr. Mcintyre is awake and does interact with purposeful movement and following directions however he also is having likely some visual hallucinations as he is grasping at things and on visually present. He continues on dialysis at this point time. Review of Systems Review of Systems: Unobtainable due to cognitive status ROS: Patient confusion prevents is significantly accurate review of systems however denies having any chest pain visual changes nausea vomiting or focal abdominal pain. Physical Exam Physical Exam: The patient appeared agitated and confused lethargic falls asleep easily Vital signs as documented. Head exam is unremarkable. normocephalic, atraumatic oropharynx is clear Neck is without jugular venous distension, thyromegaly, or lymphademopathy Lungs are clear but diminished at the bases Cardiac exam reveals regular with a systolic murmur Abdominal exam reveals normal bowel sounds, no masses, no organomegaly, no focal tenderness Extremities are mildly edematous and both pedal pulses are present Neurologic exam is awake and does follow commands, is not oriented to place or time, no focal deficits, strength is equal bilateral Results & Data Vital Signs (Past 12 Hours) Vital Signs Temp Pulse Resp BP Pulse Ox 12/26/18 15:54 36.4 C L 61 20 171/74 H 96 12/26/18 13:07 36.5 C 61 20 194/84 H 91 12/26/18 07:00 36.8 C 58 L 20 179/73 H 100 PG Care Time/CCT Total # of Minutes Spent Total Time Spent with Patient: Total time spent is greater than 50% in coordination of care (as documented) at patient's floor/unit and/or counseling patient: (1) BPH (benign prostatic hyperplasia) Lower urinary tract symptom presence: unspecified whether lower urinary tract symptoms present Qualified Code(s): N40.0 - Benign prostatic hyperplasia without lower urinary tract symptoms (2) Hypothyroidism Hypothyroidism type: acquired Qualified Code(s): E03.9 - Hypothyroidism, unspecified (3) Hypertension Hypertension type: essential hypertension Qualified Code(s): I10 - Essential (primary) hypertension
[2018-12-26] MEDS: TAMSULOSIN HCL 0.4 MG CAP PO SCH (19:59)
[2018-12-26] MEDS: QUETIAPINE FUMARATE 25 MG TABLET PO SCH (19:59)
[2018-12-26] MEDS: AMLODIPINE BESYLATE 5 MG TAB PO SCH (20:00)
[2018-12-26] MEDS: GABAPENTIN 100 MG CAP PO SCH (20:01)
[2018-12-27] MEDS: cefTRIAXone SODIUM 2,000 MG in DEXTROSE 5% 50 ML IV SCH (05:53)
[2018-12-27] MEDS: LEVOTHYROXINE SODIUM 125 MCG TABLET PO SCH (05:54)
[2018-12-27 06:52] LABS: Hemoglobin 8.5 g/dL (14.0-18.0); Mean Corpuscular Hgb Conc 31.5 g/dL (32-36); Mean Corpuscular Volume 86.5 fL (80-100); Mean Platelet Volume 10.1 fL (7.4-10.4); Platelet Count 110 K/uL (130-400); RDW Coefficient of Variation 16.9 % (11.5-14.5); RDW Standard Deviation 53.3 fL (36.4-46.3); Red Blood Count 3.12 M/uL (4.7-6.1); White Blood Count 3.92 K/uL (4.8-10.8)
[2018-12-27] MEDS ORDERED: SODIUM CHLORIDE 0.9% 1000ML 1,000 ML IV PRN (07:00)
[2018-12-27] MEDS: HydrALAZINE 10 MG TAB PO SCH ×3 (07:09→17:26)
[2018-12-27] MEDS: INSULIN ASPART 100 UNITS/ML 3 ML PEN SC SCH ×4 (07:28→20:51)
[2018-12-27] MEDS: FUROSEMIDE 80 MG TAB PO SCH ×2 (07:32→17:26)
[2018-12-27] MEDS: PANTOprazole 40 MG TAB PO SCH ×2 (07:33→20:48)
[2018-12-27] MEDS: CALCIUM ACETATE 667 MG CAP PO SCH ×3 (07:34→17:26)
[2018-12-27 07:40] LABS: Albumin Globulin Ratio 0.9 (0.9-2); Albumin Level 2.9 gm/dl (3.4-5.0); BUN Creatinine Ratio 7.9 (10-20); Bilirubin,Total 0.5 mg/dl (0.2-1); Calcium 7.6 mg/dl (8.5-10.1); Creatinine Clr Calc Pharmacy 11.2 ml/min; Est GFR (African American) 8.2; Est GFR (Non-African American) 7.1; Globulin 3.2 gm/dl (2.5-4.0); Phosphorus 5.9 mg/dl (2.5-4.9); Potassium 3.8 mmol/L (3.5-5.1); Total Protein 6.1 gm/dl (6.4-8.2)
[2018-12-27] MEDS: DOCUSATE SODIUM 100 MG CAP PO SCH (07:40)
[2018-12-27] MEDS: LABETALOL HCL 200 MG TAB PO SCH ×2 (07:58→20:48)
[2018-12-27] MEDS ORDERED: LORazepam 1 MG/2 ML VIAL IV STA (10:03)
[2018-12-27] MEDS ORDERED: LORazepam 2 MG/4 ML VIAL ONE (10:06)
--- NOTE | 2018-12-27 10:50 | Nephrology Progress Note ---
Date of Service December 27, 2018 Assessment & Plan (1) ESRD (end stage renal disease) on dialysis: 78-year-old gentlemen with end-stage renal disease secondary to hypertensive and diabetic nephropathy, has been on hemodialysis Saturday, , Saturday. He has been noncompliant with dialysis and repeatedly missing dialysis sessions. He had several admission over last few months after missing dialysis and having change in mental status with uremia. Admitted to the hospital with progressive shortness of breath, confusion and overall not feeling well secondary to metabolic encephalopathy. Had daily dialysis, BUN/cr improved but remained somewhat confused and less responsive. Head CT was negative. Unclear etiology for persistent confusional state, agitation and restlessness. Repeatedly had discussion with patient during this admission previously regarding renal replacement therapy options including stopping dialysis and continuing on conservative management and hospice care. However, every time patient wished to continue dialysis, discussed over telephone with his who also wanted to continue hemodialysis. --will try to dialysis him now however, eventually we should have a meeting with family regarding goals of care with palliative care involved --continue on his home antihypertensive medications --continue on phosphate binder and Nephrocaps --unclear etiology for persistent confusion and altered mental state, ? meds. So far workup has been negative. Metabolic encephalopathy can explain however there is concern for any infectious etiology or others as no improvement in mental status after dialysis for 3 days with improvement in electrolyte. May need neurology consultation. Will follow (2) Uremia: (3) Personal history of noncompliance with medical treatment, presenting hazards to health: (4) Elevated troponin: (5) Anemia: (6) Hypertension: (7) Secondary hyperparathyroidism of renal origin: Wayne Ghosh was seen and examined this am at the dialysis unit. He was very confused, restless and agitated, consistently trying to get off the bed, pole he trying to take cloth off and pull IVs. He had 1-1 sitter with him who reports seeing him much better this morning when he had his full breakfast, had some conversation and was totally awake and alert although there was some confusion. Review of Systems Review of Systems: Unobtainable due to mental health condition Physical Exam Constitutional: WD/WN, vitals as above + acute distress, + ill appearing, + altered mental status and + frail appearing Restless, agitated. Eyes: PERRL, conjunctivae normal, anicteric sclerae ENMT: external ear and nose normal, oropharynx normal Neck: trachea midline, no thyromegaly Respiratory: normal respiratory effort, lungs clear to auscultation Cardiovascular: RRR, no murmur, no edema Musculoskeletal: Extremities: extremities normal to inspection Skin: no rashes, warm and dry Neurologic: moves all extremities, awake and + confused Psychiatric: Confused, restless Results & Data Vital Signs (Past 12 Hours) Vital Signs Temp Pulse Pulse Resp BP Pulse Ox 12/27/18 06:57 36.5 C 62 18 143/61 H 95 12/27/18 03:04 36.4 C L 59 L 16 141/41 H 91 12/26/18 23:34 36.4 C L 55 L 18 126/78 95 12/26/18 23:06 57 L (1) Hypertension Hypertension type: essential hypertension Qualified Code(s): I10 - Essential (primary) hypertension
[2018-12-27] MEDS: LISINOPRIL 40 MG TAB PO SCH (13:26)
[2018-12-27] MEDS: DOXAZOSIN MESYLATE 1 MG TAB PO SCH (13:26)
[2018-12-27] MEDS: NEPHROCAPS PO SCH (13:28)
[2018-12-27] MEDS: D5W AND NSS 1,000 ML IV SCH (13:34)
--- NOTE | 2018-12-27 14:42 | Hospitalist Progress Note ---
Date of Service December 27, 2018 Assessment & Plan (1) Encephalopathy: Patient has acute encephalopathy of undetermined etiology. Not appear to be toxic and his initial laboratory serologies seem to not suggest hepatic encephalopathy. The patient has been treated for infectious causes up with regard to his cellulitis which is improved clinically. Despite this fact he has daily episodes of hallucinations and sedated state. He did have improved sleep state overnight and initially woke up in better condition but decompensated throughout the day. 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 Previously has had noncontrast CTs of his head without significant changes (2) ESRD (end stage renal disease) on dialysis: Patient presented to the emergency department with shortness of breath, anasarca, having missed the last 4 dialysis treatments unclear if pt want to consider stopping dialysis once again pursuing palliative care, or continue forward with persistent dialysis, however the pt continues with in hospital delerium and was sedated once again overnight I spoke to his who is not comfortable making a decision regarding this. we will attempt to use some scheduled seroquel to see if we can avoid significant sedation overnight 12/26- so that he maybe more alert, will check full serologies in am 12/27 typical home medications include amlodipine 10 mg daily at bedtime, doxazosin 1 mg p.o. daily at noon, furosemide 80 mg p.o. twice daily, hydralazine 10 mg p.o. 3 times daily with meals, labetalol 40 mg p.o. twice daily and lisinopril 40 mg p.o. daily., however while suffering from toxic encephalopathy and sedated was unable to take po meds and iv hydralazine and metoprolol are used for blood pressure control CT head was performed 12/25 without any intracranial issues. (3) Personal history of noncompliance with medical treatment, presenting hazards to health: The patient has a history of missing several dialysis treatments in a row as noted today and has been noted in the record in the past., Patient may be interested in talking about goals of care with palliative care team, when he is clear he remains unsure of his final decision. (4) Cellulitis of left lower extremity without foot: Moderately severe diabetic cellulitis and abscess of left lower extremity- greatly improved after We will change to IV doxycycline with a pending Lyme titer (5) Hypertension: See above., needed some iv control intermittently (6) Diabetic peripheral neuropathy: Usually controlled with gabapentin. (7) Type II diabetes mellitus with complication, uncontrolled: has had challenges with variable eating will hold basal insulin Placed on Accu-Cheks with NovoLog coverage carb ratio and correction factor (8) Hyperlipidemia LDL goal <70: hold rosuvastatin 20 mg (9) Hypothyroidism: remains on levothyroxine 50 mcg daily (10) BPH (benign prostatic hyperplasia): has been continued on tamsulosin. (11) Elevated troponin: demand ischemia less likely acute coronary syndrome Subjective Patient reportedly had a good night only received 1 dose of Haldol woke up was cooperative ate breakfast or was released healthy to eat breakfast went to dialysis and he decompensated becoming belligerent fighting hallucinating. Di reeceussion was had in the dialysis unit between myself and the dialysis doctor, Dr. Mcfadden, we will sedate him slightly to calm him down and proceed with dialysis always continue to try to have a discussion with him regarding whether he wants dialysis or not. His altered state this morning he did not show good understanding of his condition make a decision at this time we will continue involve family in these discussions. I also curb sided neurology who recommended performing an MRI scan. I will also evaluate him for other infectious etiologies including Lyme disease to have a play in his acute delirium. Family denies him having tolerance of alcohol or benzodiazepines to suggest withdrawal although his behavior does somewhat resemble that at times Review of Systems Review of Systems: Unobtainable due to cognitive status ROS: well nourished well developed. Physical Exam Physical Exam: The patient appeared well nourished and with acute delirium Vital signs as documented. Head exam is unremarkable. normocephalic, atraumatic Neck is without jugular venous distension, thyromegaly, or lymphademopathy Lungs are clear but diminished at the bases Cardiac exam reveals Rhythm is regular. First and second heart sounds normal. Abdominal exam reveals normal bowel sounds, no masses, no organomegaly Extremities are mildly edematous and both pedal pulses are present Neurologic exam is awake and conversant belligerent not oriented to time Psychologically seems agitated Skin is warm Dry without bruises or lesions Results & Data Vital Signs (Past 12 Hours) Vital Signs Temp Pulse Pulse Pulse Resp BP BP 12/27/18 13:22 36.8 C 65 16 174/59 H 12/27/18 10:24 63 175/86 H 12/27/18 10:04 36.9 C 63 12/27/18 06:57 36.5 C 62 18 12/27/18 03:04 36.4 C L 59 L 16 BP Pulse Ox 12/27/18 13:22 91 12/27/18 10:24 12/27/18 10:04 12/27/18 06:57 143/61 H 95 12/27/18 03:04 141/41 H 91 PG Care Time/CCT Total # of Minutes Spent Total Time Spent with Patient: Total time spent is greater than 50% in coordination of care (as documented) at patient's floor/unit and/or counseling patient: (1) Hypertension Hypertension type: essential hypertension Qualified Code(s): I10 - Essential (primary) hypertension (2) Hypothyroidism Hypothyroidism type: acquired Qualified Code(s): E03.9 - Hypothyroidism, unspecified (3) BPH (benign prostatic hyperplasia) Lower urinary tract symptom presence: unspecified whether lower urinary tract symptoms present Qualified Code(s): N40.0 - Benign prostatic hyperplasia without lower urinary tract symptoms
[2018-12-27] MEDS: HALOPERIDOL LACTATE 5 MG/ML 1 ML VIAL IV PRN (16:29)
[2018-12-27 16:45] LABS: Lyme Ab IgG w/WB Rflx Negative (Negative); Lyme Ab IgM w/WB Rflx Negative (Negative)
--- NOTE | 2018-12-27 17:20 | Magnetic Resonance Report ---
Brain MRI WITHOUT CONTRAST HISTORY: persistent hallucinations TECHNIQUE: Multiplanar multisequence MRI of the brain was performed without the use of contrast. COMPARISON STUDY: Head CT 12/25/2018. FINDINGS: Mild motion artifact. The coronal FLAIR sequences were not obtained as the patient was unab le to tolerate the entire examination. No definite mass, hematoma, midline shift, or acute infarct. M ild atrophy and microvascular ischemic changes are noted. 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 The major vascular flow voids at the skull base are well -maintained. The orbits are unremarkable. Polypoid changes are noted within the paranasal sinuses. Tr loy bilateral mastoid effusions. IMPRESSION: Motion artifact. No definite acute intracranial abnormality. Electronically signed by: Jose C Jaeger M.D. 12/27/2018 5:19 PM
[2018-12-27] MEDS: DOXYCYCLINE HYCLATE 100 MG in DEXTROSE 5% 100 ML IV SCH (17:26)
[2018-12-27] MEDS: METOPROLOL TARTRATE 1 MG/ML VIAL IV PRN (19:53)
[2018-12-27] MEDS: QUETIAPINE FUMARATE 25 MG TABLET PO SCH (20:48)
[2018-12-27] MEDS: GABAPENTIN 100 MG CAP PO SCH (20:48)
[2018-12-27] MEDS: AMLODIPINE BESYLATE 5 MG TAB PO SCH (20:48)
[2018-12-27] MEDS: TAMSULOSIN HCL 0.4 MG CAP PO SCH (20:48)
[2018-12-28] MEDS: D5W AND NSS 1,000 ML IV SCH ×2 (03:02→23:11)
[2018-12-28] MEDS: DOXYCYCLINE HYCLATE 100 MG in DEXTROSE 5% 100 ML IV SCH ×2 (03:02→15:51)
[2018-12-28] MEDS: HydrALAZINE HCL 20 MG/ML VIAL IV PRN ×2 (03:18→11:41)
[2018-12-28] MEDS: LEVOTHYROXINE SODIUM 125 MCG TABLET PO SCH (06:06)
[2018-12-28 07:00] LABS: Basophils # (auto) 0.02 K/uL (0-0.2); Basophils % (auto) 0.6 %; Eosinophils # (auto) 0.17 K/uL (0-0.5); Eosinophils % (auto) 4.8 %; Hematocrit (blood only) 27.6 % (42-52); Hemoglobin 8.5 g/dL (14.0-18.0); Lymphocytes # (auto) 0.33 K/uL (1.2-3.4); Lymphocytes % (auto) 9.2 %; Mean Corpuscular Hgb Conc 30.8 g/dL (32-36); Mean Corpuscular Volume 86.8 fL (80-100); Mean Platelet Volume 9.8 fL (7.4-10.4); Monocytes # (auto) 0.42 K/uL (0.11-0.59); Monocytes % (auto) 11.8 %; Neutrophils # (auto) 2.63 K/uL (1.4-6.5); Neutrophils % (auto) 73.6 %; Platelet Count 122 K/uL (130-400); RDW Coefficient of Variation 16.8 % (11.5-14.5); RDW Standard Deviation 53.2 fL (36.4-46.3); Red Blood Count 3.18 M/uL (4.7-6.1); White Blood Count 3.57 K/uL (4.8-10.8)
[2018-12-28 07:33] LABS: Acanthocytes 1+
[2018-12-28] MEDS: FUROSEMIDE 80 MG TAB PO SCH ×2 (07:53→15:53)
[2018-12-28] MEDS: PANTOprazole 40 MG TAB PO SCH ×2 (07:53→20:07)
[2018-12-28] MEDS: CALCIUM ACETATE 667 MG CAP PO SCH ×3 (07:54→15:52)
[2018-12-28] MEDS: LABETALOL HCL 200 MG TAB PO SCH ×2 (07:54→20:07)
[2018-12-28] MEDS: HydrALAZINE 10 MG TAB PO SCH ×3 (07:55→15:52)
[2018-12-28] MEDS: INSULIN ASPART 100 UNITS/ML 3 ML PEN SC SCH ×4 (08:02→21:33)
[2018-12-28] MEDS: DOCUSATE SODIUM 100 MG CAP PO SCH (09:11)
--- NOTE | 2018-12-28 10:38 | Nephrology Progress Note ---
Date of Service December 28, 2018 Assessment & Plan (1) ESRD (end stage renal disease) on dialysis: 78-year-old gentlemen with end-stage renal disease secondary to hypertensive and diabetic nephropathy, has been on hemodialysis Saturday, , Saturday. He has been noncompliant with dialysis and repeatedly missing dialysis sessions. He had several admission over last few months after missing dialysis and having change in mental status with uremia. Admitted to the hospital with progressive shortness of breath, confusion and overall not feeling well secondary to metabolic encephalopathy. Had daily dialysis, BUN/cr improved but remained somewhat confused and less responsive. Head CT was negative. Unclear etiology for persistent confusional state, agitation and restlessness. Repeatedly had discussion with patient during this admission previously regarding renal replacement therapy options including stopping dialysis and continuing on conservative management and hospice care. However, every time patient wished to continue dialysis, discussed over telephone with his who also wanted to continue hemodialysis. Unclear etiology for intermittent confusion and somnolence. All workup has been negative including MRI brain and carotid Doppler. Yesterday he had on the trend 0.5 hours dialysis as he was combative and had to have a sitter poorly his arm the whole time. --next dialysis Saturday --continue on his home antihypertensive medications, blood pressure running high as most of his p.o. medications are not given because of his mental state hopefully he will continue to become more awake and alert and can take oral medication regularly --continue on phosphate binder and Nephrocaps Will follow (2) Uremia: (3) Personal history of noncompliance with medical treatment, presenting hazards to health: (4) Elevated troponin: (5) Anemia: (6) Hypertension: (7) Secondary hyperparathyroidism of renal origin: Wayne Ghosh was seen and examined this am. He remained lethargic, somnolent and confused, did respond to name and opened eyes but did not communicate in a meaning way although he was awake, alert around 8 a.m. when he completed his breakfast and had normal conversation with Dr. Villanueva. During that conversation he confirmed that he wants to continue on dialysis. Vitals stable. Physical Exam Constitutional: WD/WN, vitals as above + acute distress, + ill appearing, + altered mental status and + frail appearing Eyes: PERRL, conjunctivae normal, anicteric sclerae ENMT: external ear and nose normal, oropharynx normal Neck: trachea midline, no thyromegaly Respiratory: normal respiratory effort, lungs clear to auscultation Cardiovascular: RRR, no murmur, no edema Musculoskeletal: Extremities: extremities normal to inspection Skin: no rashes, warm and dry Neurologic: moves all extremities, awake and + confused Psychiatric: A+Ox3, euthymic affect Results & Data Vital Signs (Past 12 Hours) Vital Signs Temp Pulse Pulse Resp BP BP Pulse Ox 12/28/18 08:00 63 12/28/18 07:25 36.5 C 64 26 H 187/73 H 95 12/28/18 04:00 165/75 H 12/28/18 03:05 36.6 C 69 18 184/67 H 90 12/27/18 22:55 36.5 C 65 18 162/66 H 95 (1) Hypertension Hypertension type: essential hypertension Qualified Code(s): I10 - Essential (primary) hypertension
[2018-12-28] MEDS: LISINOPRIL 40 MG TAB PO SCH (13:27)
[2018-12-28] MEDS: NEPHROCAPS PO SCH (13:27)
[2018-12-28] MEDS: DOXAZOSIN MESYLATE 1 MG TAB PO SCH (13:27)
--- NOTE | 2018-12-28 14:46 | Hospitalist Progress Note ---
Date of Service December 28, 2018 Assessment & Plan (1) Encephalopathy: Patient has acute encephalopathy of undetermined etiology. Not appear to be toxic and his initial laboratory serologies seem to not suggest hepatic encephalopathy. The patient has been treated for infectious causes up with regard to his cellulitis which is improved clinically. he seems to be clear earlly in the am despite this fact he has daily episodes of sedation and at times hallucinations later in the morning and early afternoon. He did have improved sleep state overnight and initially wakes up in better condition. 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 Previously has had noncontrast CTs of his head without significant changes (2) ESRD (end stage renal disease) on dialysis: Patient presented to the emergency department with shortness of breath, anasarca, having missed the last 4 dialysis treatments unclear if pt want to consider stopping dialysis once again pursuing palliative care, or continue forward with persistent dialysis, however the pt told me in the am of 12/28 that he wants to continue dialysis, he continues with in hospital delerium and I spoke to his who is not comfortable making a decision regarding this. we will attempt to use some scheduled seroquel to see if we can avoid significant sedation overnight 12/26- so that he maybe more alert, will check full serologies in am 12/27 typical home medications include amlodipine 10 mg daily at bedtime, doxazosin 1 mg p.o. daily at noon, furosemide 80 mg p.o. twice daily, hydralazine 10 mg p.o. 3 times daily with meals, labetalol 40 mg p.o. twice daily and lisinopril 40 mg p.o. daily., however while suffering from toxic encephalopathy and sedated was unable to take po meds and iv hydralazine and metoprolol are used for blood pressure control (3) Personal history of noncompliance with medical treatment, presenting hazards to health: The patient has a history of missing several dialysis treatments in a row as noted today and has been noted in the record in the past., Patient may be interested in talking about goals of care with palliative care team, when he is clear he remains unsure of his final decision. (4) Cellulitis of left lower extremity without foot: initily with Moderately severe diabetic cellulitis and abscess of left lower extremity-greatly improved after antibiotis,did change to IV doxycycline with a pending Lyme titer (5) Hypertension: See above., needed some iv control intermittently (6) Diabetic peripheral neuropathy: Usually controlled with gabapentin. (7) Type II diabetes mellitus with complication, uncontrolled: has had challenges with variable eating will hold basal insulin Placed on Accu-Cheks with NovoLog coverage carb ratio and correction factor (8) Hyperlipidemia LDL goal <70: hold rosuvastatin 20 mg (9) Hypothyroidism: remains on levothyroxine 50 mcg daily (10) BPH (benign prostatic hyperplasia): has been continued on tamsulosin. (11) Elevated troponin: demand ischemia less likely acute coronary syndrome Subjective Patient was quite awake and appropriate early in the morning subsequently around 10:00 he became more calm and sleepy and then was difficult to arouse throughout the morning. Serology evaluation shows no significant change as well as MRI on 12/28 showing no stroke. He was awake and alert conversation with him he said he did want to proceed with continuation of dialysis therapy. Review of Systems Review of Systems: ROS: well nourished well developed. No double vision blurry vision No problems with speech or swallowing No palpitations, chest pain or pressure No Wheezing or breathing issues No abdominal pain nausea vomiting diarrhea changes in appetite or weight No burning urine urine frequency or changes in color No focal joint pain or muscle pain No skin rashes or oral lesions No unusual bruising or bleeding No focused back pain or numbness or loss of strength Physical Exam Physical Exam: The patient appeared well nourished initially was very clear mentation now is somewhat sedated throughout the day Vital signs as documented. Head exam is unremarkable. normocephalic, atraumatic Neck is without jugular venous distension, thyromegaly, or lymphademopathy Lungs are clear but diminished bilaterally Cardiac exam reveals Rhythm is regular. No systolic murmurs Abdominal exam reveals normal bowel sounds, no masses, no organomegaly Extremities are mildly edematous and both pedal pulses are present Neurologic exam wass A&Ox3,then later in the afternnoon was sedated no focal deficits Psychologically seems neither anxious or depressed Skin is warm Dry Results & Data Vital Signs (Past 12 Hours) Vital Signs Temp Pulse Pulse Pulse Resp BP BP 12/28/18 13:24 58 L 18 173/64 H 07/28/19 11:23 36.6 C 64 17 193/78 H 12/28/18 08:00 63 12/28/18 07:25 36.5 C 64 26 H 187/73 H 12/28/18 04:00 165/75 H 12/28/18 03:05 36.6 C 69 18 184/67 H Pulse Ox 12/28/18 13:24 94 12/28/18 11:23 98 12/28/18 08:00 12/28/18 07:25 95 12/28/18 04:00 12/28/18 03:05 90 PG Care Time/CCT Total # of Minutes Spent Total Time Spent with Patient: Total time spent is greater than 50% in co ordination of care (as documented) at patient's floor/unit and/or counseling patient: (1) Hypertension Hypertension type: essential hypertension Qualified Code(s): I10 - Essential (primary) hypertension (2) Hypothyroidism Hypothyroidism type: acquired Qualified Code(s): E03.9 - Hypothyroidism, unspecified (3) BPH (benign prostatic hyperplasia) Lower urinary tract symptom presence: unspecified whether lower urinary tract symptoms present Qualified Code(s): N40.0 - Benign prostatic hyperplasia without lower urinary tract symptoms
[2018-12-28] MEDS: AMLODIPINE BESYLATE 5 MG TAB PO SCH (20:07)
[2018-12-28] MEDS: TAMSULOSIN HCL 0.4 MG CAP PO SCH (20:07)
[2018-12-28] MEDS: QUETIAPINE FUMARATE 25 MG TABLET PO SCH (20:08)
[2018-12-29] MEDS: DOXYCYCLINE HYCLATE 100 MG in DEXTROSE 5% 100 ML IV SCH ×2 (02:59→16:03)
[2018-12-29] MEDS: LEVOTHYROXINE SODIUM 125 MCG TABLET PO SCH (06:19)
[2018-12-29 06:59] LABS: Hematocrit (blood only) 26.1 % (42-52); Mean Corpuscular Hgb Conc 30.7 g/dL (32-36); Mean Corpuscular Volume 88.8 fL (80-100); Mean Platelet Volume 9.9 fL (7.4-10.4); Platelet Count 135 K/uL (130-400); RDW Coefficient of Variation 16.9 % (11.5-14.5); RDW Standard Deviation 55.6 fL (36.4-46.3); Red Blood Count 2.94 M/uL (4.7-6.1); White Blood Count 4.04 K/uL (4.8-10.8)
[2018-12-29 07:38] LABS: Albumin Level 2.9 gm/dl (3.4-5.0); BUN Creatinine Ratio 5.8 (10-20); Bilirubin,Total 0.4 mg/dl (0.2-1); Calcium 7.9 mg/dl (8.5-10.1); Creatinine Clr Calc Pharmacy 11.2 ml/min; Est GFR (African American) 8.2; Globulin 2.8 gm/dl (2.5-4.0); Phosphorus 5.2 mg/dl (2.5-4.9); Potassium 3.5 mmol/L (3.5-5.1); Total Protein 5.7 gm/dl (6.4-8.2)
[2018-12-29] MEDS: INSULIN ASPART 100 UNITS/ML 3 ML PEN SC SCH ×4 (08:01→20:30)
[2018-12-29] MEDS: FUROSEMIDE 80 MG TAB PO SCH ×2 (08:03→16:04)
[2018-12-29] MEDS: LABETALOL HCL 200 MG TAB PO SCH ×2 (08:03→20:01)
[2018-12-29] MEDS: PANTOprazole 40 MG TAB PO SCH ×2 (08:04→20:01)
[2018-12-29] MEDS: CALCIUM ACETATE 667 MG CAP PO SCH ×3 (08:04→16:53)
[2018-12-29] MEDS: HydrALAZINE 10 MG TAB PO SCH ×3 (08:04→16:04)
[2018-12-29] MEDS: DOCUSATE SODIUM 100 MG CAP PO SCH (08:06)
--- NOTE | 2018-12-29 08:53 | Neurology Consultation ---
Date of Consultation December 29, 2018 Assessment & Plan (1) Uncontrolled daytime somnolence: Although this patient presents with a metabolic encephalopathy in the context of noncompliance with hemodialysis, he has been exhibiting excessive daytime somnolence with associated hypnic jerks which may be related to his history of obstructive sleep apnea. Compliance with treatment uncertain. Sleep hygiene and compliance with sleep apnea treatment should be evaluated further and stressed if necessary. He may need an up-to-date outpatient sleep medicine evaluation. (2) Hypnic jerks: Reported symptoms also suggest that he has been having hypnic jerks which is related to excessive daytime somnolence but could be further augmented by a mild underlying metabolic encephalopathy. Yet, his encephalopathy seems to be mostly clear this morning. He did not have an obvious tremor or other movement disorder at the time of my assessment. I doubt he is having seizures. I will review the EEG to be completed later this morning and make further recommend ations in this regard if necessary. I would not prescribe an anticonvulsant at this time. However, in some cases, levetiracetam may be prescribed to address myoclonic jerking. History of Present Illness Reason for Consultation: Variable levels of wakefulness Requesting Physician: Justo Villanueva MD Attending Physician: Justo Villanueva MD History of Present Illness The patient is a 78-year-old male with a history of end-stage renal disease and noncompliance with hemodialysis who presented on December 22 with anasarca, shortness of breath, and confusion after missing for dialysis sessions. I evaluated this patient under very similar circumstances on November 01. Neurology is again consulted to assess his confusion and variable levels of wakefulness. A neurological work-up thus far has included a brain MRI and carotid ultrasound. These tests have been fairly unrevealing although the MRI does reveal atrophy, chronic microvascular disease, and several chronic lacunar infarcts, but was negative for acute process. An EEG has been ordered for this morning. Interestingly, upon entering the room this morning, the patient is actually alert and fairly well oriented. He is pleasant and cooperative exhibiting perhaps only a slight degree of confusion regarding how long he has been in the hospital recently. He does not exhibit any obvious signs of delirium currently. Upon discussing his case further with Dr. Villanueva this morning, it sounds like he has been exhibiting episodic somnolence, typically at around 10 AM, he becomes somnolent, and actually falls asleep and exhibits brief myoclonic type jerking movements. It sounds like his sleeping schedule has been a bit off, he typically does not sleep very much at all in the evening at home. Seroquel was started at bedtime on the , during this admission. An electroencephalogram has been ordered for this morning. Additional details as below. Allergies Allergy/AdvReac Type Severity Reaction Status Date / Time tramadol AdvReac Severe disorented Verified 12/22/18 23:43 ,falling down metformin AdvReac Intermediate CONFUSION Verified 12/22/18 23:43 Home Medications Home Medications Medication Instructions Recorded Confirmed Type docusate sodium 200 mg PO QAM 04/19/18 12/22/18 History gabapentin 100 mg PO HS 04/19/18 12/22/18 History lisinopril 40 mg PO DAILY@1200 04/19/18 12/22/18 History rosuvastatin 20 mg PO QPM 04/19/18 12/22/18 History pantoprazole 40 mg PO BID #60 tab 04/23/18 12/22/18 Rx Renal Caps 1 mg PO DAILY@1200 07/04/18 12/22/18 History hydralazine 10 mg PO TIDM 07/04/18 12/22/18 History amlodipine 10 mg tablet 10 mg PO HS #90 tab 11/12/18 12/22/18 Rx calcium acetate 667 mg capsule 1,334 mg PO TIDM #180 cap 11/12/18 12/22/18 Rx insulin syringe U-100 with needle #1 ea 11/12/18 12/22/18 History 0.5 mL 30 gauge x 1/2" labetalol 100 mg tablet 400 mg PO BID #720 tab 12/08/18 12/22/18 Rx levothyroxine 200 mcg tablet 200 mcg PO .COMPLEX #30 tab 12/15/18 12/22/18 Rx levothyroxine 50 mcg tablet 50 mcg PO .COMPLEX #30 tab 12/15/18 12/22/18 Rx furosemide 80 mg PO AMPM 12/22/18 12/22/18 History insulin detemir U-100 [Levemir 25 units SUBCUT HS 12/22/18 12/22/18 History U-100 Insulin] doxazosin 1 mg tablet 1 mg PO DAILY #90 tab 07/23/19 Rx tamsulosin 0.4 mg capsule 0.4 mg PO DAILY #90 cap 12/23/18 Rx Patient History Medical History Anemia BPH (benign prostatic hyperplasia) Hypothyroidism Secondary hyperparathyroidism of renal origin COPD (chronic obstructive pulmonary disease) Acute on chronic respiratory failure (Resolved) Altered mental status (Resolved) Chest pain (Resolved) Epistaxis (Resolved) Fluid overload (Resolved) Hypertensive urgency (Resolved) AVF (arteriovenous fistula) Abnormal colonoscopy Surgical History H/O cardiac catheterization H/O hemorrhoidectomy Hx of cholecystectomy No pertinent past surgical history Family History Unknown Myocardial infarction Diabetes Mother Diabetes Gallbladder disease Hypertension Breast cancer late 70s Father Diabetes Hypertension Brother Diabetes Hypertension Kidney disease Social History Preferred Language: Tunisian Communication Ability: Effective Beliefs That Will Affect Care: None marital status: Current Living Situation: Spouse current occupational status: employed current occupation: works part-time at [employer] Feels Safe at Home: Yes Smoking Status: Former smoker Tobacco Type: cigarettes Second Hand Exposure: No Hx Alcohol Use: No Hx Substance Use: No Childhood Exposure to Second-Hand Smoke: No caffeine: Yes Dental Care, Regularly: Yes Physical Activity Frequency Comment: limited due physical condition Seatbelt Use: sometimes Review of Systems Constitutional: no fever Eyes: no blind spots and no diplopia Ear, Nose, Mouth, Throat: no dizziness Respiratory: no cough and no dyspnea Cardiovascular: no chest pain and no palpitations Gastrointestinal: no abdominal pain and no vomiting Genitourinary: no dysuria Musculoskeletal: no myalgia Integumentary: no rash and no lesions Neurologic: + unsteadiness and + numbness Psychiatric: no depression and no anxiety Hematologic / Lymphatic: no easy bleeding and no coagulopathy Physical Exam Physical Exam: The patient is a well-developed elderly male. He is alert and oriented to person, place, day of the week, month and year. Attention and concentration normal although processing speed slightly reduced. Patient exhibits a normal spontaneous speech pattern as well as an age-appropriate fund of knowledge and normal comprehension of vocabulary. Visual arreaga full to conf rontation. Visual acuity normal. Pupils equal round react to light and accommodation. Eye movements normal. No nystagmus. Facial sensation intact. Facial strength intact. No facial droop. Hearing intact. Palate elevates to midline. Shoulder shrug intact. Tongue protrudes to midline. There is a length dependent deficit to sensation in all 4 limbs affecting all modalities. Deep tendon reflexes are diffusely diminished. Plantar responses silent bilaterally. There is no dysdiadochokinesia or dysmetria [id number] or [id number] bilaterally. Ophthalmoscopic examination reveals normal-appearing optic disks and posterior segments. No papilledema or hemorrhages. Carotid pulses normal bilaterally, no bruits to auscultation. Gait and station not tested due to safety concerns. Patient exhibits normal muscle strength and tone for all 4 limbs. No atrophy. No abnormal movements observed. Results & Data Vital Signs (Past 12 Hours) Vital Signs Temp Pulse Pulse Resp BP Pulse Ox 12/29/18 06:56 36.5 C 55 L 16 180/60 H 95 12/29/18 06:20 56 L 12/29/18 03:22 36.4 C L 56 L 16 165/68 H 90 12/28/18 22:53 36.7 C 55 L 16 147/53 H 92 Laboratory Results Recently completed labs reviewed. WBC 4.04, hemoglobin 8.0, hematocrit 26.1, platelet count 135, sodium 141, potassium 3.5, chloride 104, carbon dioxide 27, BUN 40, creatinine 6.90, glucose 137, calcium 7.9, transaminases normal Diagnostic Findings Brain MRI completed December 27, 2018 revealed chronic microvascular ischemic disease as well as several old lacunar infarcts within the left thalamus and left cerebellar hemisphere as well as mild generalized atrophy. No acute process. Images and report reviewed. A carotid ultrasound completed December 25, 2018 revealed atherosclerotic plaque without evidence of hemodynamic with significant stenosis within either carotid system. Antegrade flow seen in both vertebral arteries. Electrocardiogram completed December 25, 2018 revealed a sinus rhythm with first- degree AV block, 63 bpm.
--- NOTE | 2018-12-29 09:47 | Procedure Note ---
EEG Procedure Note Date of Service December 29, 2018 Start / End Times Start Time: 8:43 AM End Time: 9:03 AM Referring Physician Justo Villanueva MD History Variable levels of alertness. Myoclonic jerking. Seizure-like activity. Home Medication List Home Medications Medication Instructions Recorded Confirmed Type docusate sodium 200 mg PO QAM 04/19/18 12/22/18 History gabapentin 100 mg PO HS 04/19/18 12/22/18 History lisinopril 40 mg PO DAILY@1200 04/19/18 12/22/18 History rosuvastatin 20 mg PO QPM 04/19/18 12/22/18 History pantoprazole 40 mg PO BID #60 tab 04/23/18 12/22/18 Rx Renal Caps 1 mg PO DAILY@1200 07/04/18 12/22/18 History hydralazine 10 mg PO TIDM 07/04/18 12/22/18 History amlodipine 10 mg tablet 10 mg PO HS #90 tab 11/12/18 12/22/18 Rx calcium acetate 667 mg capsule 1,334 mg PO TIDM #180 cap 11/12/18 12/22/18 Rx insulin syringe U-100 with needle #1 ea 11/12/18 12/22/18 History 0.5 mL 30 gauge x 1/2" labetalol 100 mg tablet 400 mg PO BID #720 tab 12/08/18 12/22/18 Rx levothyroxine 200 mcg tablet 200 mcg PO .COMPLEX #30 tab 12/15/18 12/22/18 Rx levothyroxine 50 mcg tablet 50 mcg PO .COMPLEX #30 tab 12/15/18 12/22/18 Rx furosemide 80 mg PO AMPM 12/22/18 12/22/18 History insulin detemir U-100 [Levemir 25 units SUBCUT HS 12/22/18 12/22/18 History U-100 Insulin] doxazosin 1 mg tablet 1 mg PO DAILY #90 tab 12/23/18 Rx tamsulosin 0.4 mg capsule 0.4 mg PO DAILY #90 cap 12/23/18 Rx Inpatient Medication List Al Hydrox/Mg Hydrox/Simethicone (Maalox) 15 ml PO Q4H PRN PRN Reason: Dyspepsia Stop: 01/22/19 04:35 Last Admin: 12/28/18 15:30 Dose: 15 ml Documented by: [id number] Amlodipine Besylate (Norvasc) 10 mg PO HS [facility] Stop: 01/22/19 20:59 Last Admin: 12/28/18 20:07 Dose: 10 mg Documented by: [id number] Admin: 12/27/18 20:48 Dose: Not Given Documented by: [id number] Admin: 12/26/18 20:00 Dose: 10 mg Documented by: [id number] Admin: 12/25/18 20:53 Dose: 10 mg Documented by: [id number] Admin: 12/24/18 20:41 Dose: 10 mg Documented by: [id number] Admin: 12/23/18 20:40 Dose: 10 mg Documented by: [id number] Calcium Acetate (Phoslo) 1,334 mg PO TIDM [facility] Stop: 01/22/19 07:59 Last Admin: 12/29/18 08:04 Dose: 1,334 mg Documented by: [id number] Admin: 12/28/18 15:52 Dose: 1,334 mg Documented by: [id number] Admin: 12/28/18 13:27 Dose: Not Given Documented by: [id number] Admin: 12/28/18 07:54 Dose: 1,334 mg Documented by: [id number] Admin: 12/27/18 17:26 Dose: Not Given Documented by: [id number] Admin: 12/27/18 13:28 Dose: 1,334 mg Documented by: [id number] Admin: 12/27/18 07:34 Dose: 1,334 mg Documented by: [id number] Admin: 12/26/18 16:52 Dose: Not Given Documented by: [id number] Admin: 12/26/18 12:19 Dose: Not Given Documented by: [id number] Admin: 12/26/18 09:28 Dose: Not Given Documented by: [id number] Admin: 12/25/18 17:27 Dose: 1,334 mg Documented by: [id number] Admin: 12/25/18 16:53 Dose: Not Given Documented by: [id number] Admin: 12/25/18 09:15 Dose: Not Given Documented by: [id number] Admin: 12/24/18 17:39 Dose: Not Given Documented by: [id number] Admin: 12/24/18 11:31 Dose: Not Given Documented by: [id number] Admin: 12/24/18 10:08 Dose: Not Given Documented by: [id number] Admin: 12/23/18 16:47 Dose: 1,334 mg Documented by: [id number] Admin: 12/23/18 14:46 Dose: Not Given Documented by: [id number] Admin: 12/23/18 07:42 Dose: 1,334 mg Documented by: [id number] Dextrose (Dextrose 50%) 25 - 50 ml IV UD PRN; Protocol PRN Reason: Hypoglycemia Protocol Stop: 01/22/19 04:35 Last Admin: 12/26/18 11:49 Dose: 50 ml Documented by: [id number] Admin: 12/26/18 07:41 Dose: 50 ml Documented by: [id number] Admin: 12/24/18 15:19 Dose: 25 ml Documented by: [id number] Admin: 12/24/18 11:17 Dose: 25 ml Documented by: [id number] Admin: 12/24/18 07:22 Dose: 25 ml Documented by: [id number] Docusate Sodium (Colace) 200 mg PO QAM [facility] Stop: 01/22/19 08:59 Last Admin: 12/29/18 08:06 Dose: 200 mg Documented by: [id number] Admin: 12/28/18 09:11 Dose: 200 mg Documented by: [id number] Admin: 12/27/18 07:40 Dose: 200 mg Documented by: [id number] Admin: 12/26/18 09:28 Dose: Not Given Documented by: [id number] Admin: 12/25/18 09:16 Dose: Not Given Documented by: [id number] Admin: 12/24/18 14:28 Dose: Not Given Documented by: [id number] Admin: 12/23/18 08:02 Dose: 200 mg Documented by: [id number] Doxazosin Mesylate (Cardura) 1 mg PO DAILY@1200 [facility] Stop: 01/22/19 11:59 Last Admin: 12/28/18 13:27 Dose: Not Given Documented by: [id number] Admin: 12/27/18 13:26 Dose: 1 mg Documented by: [id number] Admin: 12/26/18 12:19 Dose: Not Given Documented by: [id number] Admin: 12/25/18 17:25 Dose: 1 mg Documented by: [id number] Admin: 12/24/18 14:28 Dose: Not Given Documented by: [id number] Admin: 12/23/18 14:47 Dose: 1 mg Documented by: [id number] Furosemide (Lasix) 80 mg PO BID17 [facility] Stop: 01/22/19 06:29 Last Admin: 12/29/18 08:03 Dose: 80 mg Documented by: [id number] Admin: 12/28/18 15:53 Dose: 80 mg Documented by: [id number] Admin: 12/28/18 07:53 Dose: 80 mg Documented by: [id number] Admin: 12/27/18 17:26 Dose: Not Given Documented by: [id number] Admin: 12/27/18 07:32 Dose: 80 mg Documented by: [id number] Admin: 12/26/18 16:52 Dose: Not Given Documented by: [id number] Admin: 12/26/18 09:28 Dose: Not Given Documented by: [id number] Admin: 12/25/18 17:27 Dose: 80 mg Documented by: [id number] Admin: 12/25/18 09:16 Dose: Not Given Documented by: [id number] Admin: 12/24/18 17:39 Dose: Not Given Documented by: [id number] Admin: 12/24/18 10:08 Dose: Not Given Documented by: [id number] Admin: 12/23/18 16:47 Dose: 80 mg Documented by: [id number] Admin: 12/23/18 06:39 Dose: 80 mg Documented by: [id number] Haloperidol Lactate (Haldol) 2 mg IV Q2H PRN PRN Reason: Agitation Stop: 01/22/19 16:15 Last Admin: 12/27/18 16:29 Dose: 2 mg Documented by: [id number] Admin: 12/26/18 23:50 Dose: 2 mg Documented by: [id number] Admin: 12/26/18 11:53 Dose: 2 mg Documented by: [id number] Admin: 12/26/18 04:20 Dose: 2 mg Documented by: [id number] Admin: 12/26/18 02:21 Dose: 2 mg Documented by: [id number] Admin: 12/25/18 23:30 Dose: 2 mg Documented by: [id number] Admin: 12/24/18 15:52 Dose: 2 mg Documented by: [id number] Admin: 12/23/18 21:57 Dose: 2 mg Documented by: [id number] Admin: 12/23/18 19:50 Dose: 2 mg Documented by: [id number] Hydralazine HCl (Apresoline) 10 mg PO TIDM [facility] Stop: 01/22/19 07:59 Last Admin: 12/29/18 08:04 Dose: 10 mg Documented by: [id number] Admin: 12/28/18 15:52 Dose: 10 mg Documented by: [id number] Admin: 12/28/18 13:25 Dose: Not Given Documented by: [id number] Admin: 12/28/18 07:55 Dose: 10 mg Documented by: [id number] Admin: 12/27/18 17:26 Dose: Not Given Documented by: [id number] Admin: 12/27/18 13:27 Dose: 10 mg Documented by: [id number] Admin: 12/27/18 07:09 Dose: Not Given Documented by: [id number] Admin: 12/26/18 16:52 Dose: Not Given Documented by: [id number] Admin: 12/26/18 12:19 Dose: Not Given Documented by: [id number] Admin: 12/26/18 09:28 Dose: Not Given Documented by: [id number] Admin: 12/25/18 17:26 Dose: 10 mg Documented by: [id number] Admin: 12/25/18 16:50 Dose: Not Given Documented by: [id number] Admin: 12/25/18 09:15 Dose: Not Given Documented by: [id number] Admin: 12/24/18 17:39 Dose: Not Given Documented by: [id number] Admin: 12/24/18 14:28 Dose: Not Given Documented by: [id number] Admin: 12/24/18 10:07 Dose: Not Given Documented by: [id number] Admin: 12/23/18 16:48 Dose: Not Given Documented by: [id number] Admin: 12/23/18 14:47 Dose: 10 mg Documented by: [id number] Admin: 12/23/18 07:42 Dose: 10 mg Documented by: [id number] Hydralazine HCl (Hydralazine Hcl) 10 mg IV Q8 PRN PRN Reason: Blood Pressure - High Stop: 01/23/19 14:00 Last Admin: 12/28/18 11:41 Dose: 10 mg Documented by: [id number] Admin: 12/28/18 03:18 Dose: 10 mg Documented by: [id number] Admin: 12/25/18 04:13 Dose: 10 mg Documented by: [id number] Admin: 12/24/18 14:38 Dose: 10 mg Documented by: [id number] Dextrose/Sodium Chloride (D5w And Nss) 1,000 mls @ 70 mls/hr IV .[id number] [facility] Stop: 01/25/19 05:59 Last Admin: 12/28/18 23:11 Dose: 70 mls/hr Documented by: [id number] Infusion: 12/28/18 19:23 Dose: 70 mls/hr Documented by: [id number] Infusion: 12/28/18 18:03 Dose: 70 mls/hr Documented by: [id number] Infusion: 12/28/18 16:00 Dose: 0 mls/hr Documented by: [id number] Admin: 12/28/18 03:02 Dose: 70 mls/hr Documented by: [id number] Infusion: 12/28/18 03:02 Dose: 70 mls/hr Documented by: [id number] Admin: 12/27/18 13:34 Dose: 70 mls/hr Documented by: [id number] Infusion: 12/27/18 10:16 Dose: 70 mls/hr Documented by: [id number] Admin: 12/26/18 19:58 Dose: 70 mls/hr Documented by: [id number] Infusion: 12/26/18 19:58 Dose: 70 mls/hr Documented by: [id number] Admin: 12/26/18 05:52 Dose: 70 mls/hr Documented by: [id number] Doxycycline Hyclate 100 mg/ (Dextrose) 110 mls @ 50 mls/hr IV Q12H [facility]; Protocol Stop: 01/10/19 15:59 Last Infusion: 12/29/18 05:55 Dose: 0 mls/hr Documented by: [id number] Admin: 12/29/18 02:59 Dose: 50 mls/hr Documented by: [id number] Infusion: 12/28/18 18:03 Dose: 0 mls/hr Documented by: [id number] Admin: 12/28/18 15:51 Dose: 50 mls/hr Documented by: [id number] Infusion: 12/28/18 05:21 Dose: 0 mls/hr Documented by: [id number] Admin: 12/28/18 03:02 Dose: 50 mls/hr Documented by: [id number] Infusion: 12/27/18 19:49 Dose: 0 mls/hr Documented by: [id number] Admin: 12/27/18 17:26 Dose: 50 mls/hr Documented by: [id number] Insulin Aspart (Novolog Flexpen) 0 units SC ACHS [facility] Stop: 01/22/19 07:29 Last Admin: 12/29/18 08:01 Dose: 4 units Documented by: [id number] Cosigned by: [id number] Admin: 12/28/18 21:33 Dose: 3 units Documented by: [id number] Cosigned by: [id number] Admin: 12/28/18 18:39 Dose: Not Given Documented by: [id number] Cosigned by: [id number] Admin: 12/28/18 13:04 Dose: Not Given Documented by: [id number] Cosigned by: [id number] Admin: 12/28/18 08:02 Dose: Not Given Documented by: [id number] Cosigned by: [id number] Admin: 12/27/18 20:51 Dose: 1 units Documented by: [id number] Cosigned by: [id number] Admin: 12/27/18 16:51 Dose: Not Given Documented by: [id number] Cosigned by: [id number] Admin: 12/27/18 13:25 Dose: Not Given Documented by: [id number] Cosigned by: [id number] Admin: 12/27/18 07:28 Dose: Not Given Documented by: [id number] Cosigned by: [id number] Admin: 12/26/18 20:00 Dose: Not Given Documented by: [id number] Cosigned by: [id number] Admin: 12/26/18 16:51 Dose: Not Given Documented by: [id number] Cosigned by: [id number] Admin: 12/26/18 12:19 Dose: Not Given Documented by: [id number] Cosigned by: [id number] Admin: 12/26/18 07:37 Dose: Not Given Documented by: [id number] Cosigned by: [id number] Admin: 12/25/18 20:53 Dose: Not Given Documented by: [id number] Cosigned by: [id number] Admin: 12/25/18 18:31 Dose: Not Given Documented by: [id number] Cosigned by: [id number] Admin: 12/25/18 13:14 Dose: Not Given Documented by: [id number] Cosigned by: [id number] Admin: 12/25/18 07:56 Dose: Not Given Documented by: [id number] Cosigned by: [id number] Admin: 12/24/18 22:08 Dose: Not Given Documented by: [id number] Cosigned by: [id number] Admin: 12/24/18 15:20 Dose: Not Given Documented by: [id number] Cosigned by: [id number] Admin: 12/24/18 11:29 Dose: Not Given Documented by: [id number] Cosigned by: [id number] Admin: 12/24/18 08:21 Dose: Not Given Documented by: [id number] Cosigned by: [id number] Admin: 12/23/18 20:43 Dose: Not Given Documented by: [id number] Cosigned by: [id number] Admin: 12/23/18 16:49 Dose: 4 units Documented by: [id number] Cosigned by: [id number] Admin: 12/23/18 14:43 Dose: Not Given Documented by: [id number] Cosigned by: [id number] Admin: 12/23/18 07:46 Dose: 8 units Documented by: [id number] Cosigned by: [id number] Insulin Detemir (Levemir Flextouch) 15 units SC HS [facility] Stop: 01/23/19 20:59 Last Admin: 12/25/18 20:52 Dose: 15 units Documented by: [id number] Cosigned by: [id number] Admin: 12/24/18 22:07 Dose: 15 units Documented by: [id number] Cosigned by: [id number] Labetalol HCl (Normodyne) 400 mg PO BID [facility] Stop: 01/22/19 08:59 Last Admin: 12/29/18 08:03 Dose: 400 mg Documented by: [id number] Admin: 12/28/18 20:07 Dose: 400 mg Documented by: [id number] Admin: 12/28/18 07:54 Dose: 400 mg Documented by: [id number] Admin: 12/27/18 20:48 Dose: Not Given Documented by: [id number] Admin: 12/27/18 07:58 Dose: Not Given Documented by: [id number] Admin: 12/26/18 19:59 Dose: 400 mg Documented by: [id number] Admin: 12/26/18 09:28 Dose: Not Given Documented by: [id number] Admin: 12/25/18 20:50 Dose: 400 mg Documented by: [id number] Admin: 12/25/18 09:16 Dose: Not Given Documented by: [id number] Admin: 12/24/18 20:41 Dose: 400 mg Documented by: [id number] Admin: 12/24/18 14:28 Dose: Not Given Documented by: [id number] Admin: 12/23/18 20:42 Dose: 400 mg Documented by: [id number] Admin: 12/23/18 08:02 Dose: Not Given Documented by: [id number] Levothyroxine Sodium (Synthroid) 250 mcg PO DAILYBB [facility] Stop: 01/22/19 06:29 Last Admin: 12/29/18 06:19 Dose: 250 mcg Documented by: [id number] Admin: 12/28/18 06:06 Dose: 250 mcg Documented by: [id number] Admin: 12/27/18 05:54 Dose: 250 mcg Documented by: [id number] Admin: 12/26/18 04:53 Dose: Not Given Documented by: [id number] Admin: 12/25/18 06:39 Dose: Not Given Documented by: [id number] Admin: 12/24/18 06:23 Dose: 250 mcg Documented by: [id number] Admin: 12/23/18 06:39 Dose: 250 mcg Documented by: [id number] Lisinopril (Zestril) 40 mg PO DAILY@1200 [facility] Stop: 01/22/19 11:59 Last Admin: 12/28/18 13:27 Dose: Not Given Documented by: [id number] Admin: 12/27/18 13:26 Dose: 40 mg Documented by: [id number] Admin: 12/26/18 12:19 Dose: Not Given Documented by: [id number] Admin: 12/25/18 17:26 Dose: 40 mg Documented by: [id number] Admin: 12/24/18 14:29 Dose: Not Given Documented by: [id number] Admin: 12/23/18 14:47 Dose: 40 mg Documented by: [id number] Metoprolol Tartrate (Lopressor) 5 mg IV Q4 PRN PRN Reason: sbp> 185, dbp >95, HR >120 Stop: 01/23/19 14:00 Last Admin: 12/27/18 19:53 Dose: 5 mg Documented by: [id number] Admin: 12/24/18 20:34 Dose: 5 mg Documented by: [id number] Pantoprazole Sodium (Protonix) 40 mg PO BID [facility] Stop: 01/22/19 08:59 Last Admin: 12/29/18 08:04 Dose: 40 mg Documented by: [id number] Admin: 12/28/18 20:07 Dose: 40 mg Documented by: [id number] Admin: 12/28/18 07:53 Dose: 40 mg Documented by: [id number] Admin: 12/27/18 20:48 Dose: Not Given Documented by: [id number] Admin: 12/27/18 07:33 Dose: 40 mg Documented by: [id number] Admin: 12/26/18 20:00 Dose: 40 mg Documented by: [id number] Admin: 12/26/18 09:29 Dose: Not Given Documented by: [id number] Admin: 12/25/18 20:53 Dose: 40 mg Documented by: [id number] Admin: 12/25/18 09:16 Dose: Not Given Documented by: [id number] Admin: 12/24/18 20:45 Dose: 40 mg Documented by: [id number] Admin: 12/24/18 14:28 Dose: Not Given Documented by: [id number] Admin: 12/23/18 20:41 Dose: 40 mg Documented by: [id number] Admin: 12/23/18 08:02 Dose: 40 mg Documented by: [id number] Quetiapine Fumarate (Seroquel) 25 mg PO [facility] Stop: 01/27/19 20:59 Last Admin: 12/28/18 20:08 Dose: 25 mg Documented by: [id number] Rosuvastatin Calcium (Crestor) 20 mg PO QPM [facility] Stop: 01/22/19 20:59 Last Admin: 12/24/18 20:41 Dose: 20 mg Documented by: [id number] Admin: 12/23/18 20:42 Dose: 20 mg Documented by: [id number] Tamsulosin HCl (Flomax) 0.4 mg PO [facility] Stop: 01/22/19 20:59 Last Admin: 12/28/18 20:07 Dose: 0.4 mg Documented by: [id number] Admin: 12/27/18 20:48 Dose: Not Given Documented by: [id number] Admin: 12/26/18 19:59 Dose: 0.4 mg Documented by: [id number] Admin: 12/25/18 20:51 Dose: 0.4 mg Documented by: [id number] Admin: 12/24/18 20:41 Dose: 0.4 mg Documented by: [id number] Admin: 12/23/18 20:42 Dose: 0.4 mg Documented by: [id number] Vitamin B Complex/Folic Acid (Nephrocaps) 1 cap PO DAILY@1200 [facility] Stop: 01/22/19 11:59 Last Admin: 12/28/18 13:27 Dose: Not Given Documented by: [id number] Admin: 12/27/18 13:28 Dose: 1 cap Documented by: [id number] Admin: 12/26/18 12:19 Dose: Not Given Documented by: [id number] Admin: 12/25/18 16:53 Dose: Not Given Documented by: [id number] Admin: 12/24/18 11:33 Dose: Not Given Documented by: [id number] Admin: 12/23/18 14:47 Dose: Not Given Documented by: [id number] Discontinued Medications Epoetin Zheng (Procrit) 20,000 units IV TODAY@0910 [facility] Stop: 12/23/18 16:00 Last Admin: 12/23/18 12:28 Dose: 20,000 units Documented by: [id number] Gabapentin (Neurontin) 100 mg PO HS [facility] Stop: 01/22/19 20:59 Last Admin: 12/27/18 20:48 Dose: Not Given Documented by: [id number] Admin: 12/26/18 20:01 Dose: 100 mg Documented by: [id number] Admin: 12/25/18 20:51 Dose: 100 mg Documented by: [id number] Admin: 12/24/18 20:41 Dose: 100 mg Documented by: [id number] Admin: 12/23/18 20:41 Dose: 100 mg Documented by: [id number] Vancomycin HCl 2,250 mg/ (Sodium Chloride) 545 mls @ 200 mls/hr IV NOW ONE; Protocol Stop: 12/23/18 04:12 Last Infusion: 12/23/18 05:08 Dose: 0 mls/hr Documented by: [id number] Admin: 12/23/18 01:43 Dose: 200 mls/hr Documented by: [id number] Ceftriaxone Sodium 2,000 mg/ (Dextrose) 70 mls @ 140 mls/hr IV Q24H [facility] Stop: 01/02/19 06:29 Last Infusion: 12/27/18 06:52 Dose: 0 mls/hr Documented by: [id number] Admin: 12/27/18 05:53 Dose: 140 mls/hr Documented by: [id number] Infusion: 12/26/18 06:27 Dose: 0 mls/hr Documented by: [id number] Admin: 12/26/18 05:54 Dose: 140 mls/hr Documented by: [id number] Infusion: 12/25/18 07:56 Dose: 0 mls/hr Documented by: [id number] Admin: 12/25/18 06:55 Dose: 140 mls/hr Documented by: [id number] Infusion: 12/24/18 06:53 Dose: 0 mls/hr Documented by: [id number] Admin: 12/24/18 06:23 Dose: 140 mls/hr Documented by: [id number] Infusion: 12/23/18 07:33 Dose: 0 mls/hr Documented by: [id number] Admin: 12/23/18 06:39 Dose: 140 mls/hr Documented by: [id number] Lorazepam (Ativan) 0.25 mg in 0.5 mls @ 0.5 mls/min IV NOW STA Stop: 12/23/18 22:31 Last Admin: 12/23/18 22:45 Dose: 0.5 mls/min Documented by: [id number] Vancomycin HCl 1,000 mg/ (Sodium Chloride) 270 mls @ 125 mls/hr IV ONE ONE; Protocol Stop: 12/24/18 18:09 Last Infusion: 12/24/18 17:38 Dose: 0 mls/hr Documented by: [id number] Admin: 12/24/18 15:20 Dose: 125 mls/hr Documented by: [id number] Lorazepam (Ativan) 0.25 mg in 0.5 mls @ 0.5 mls/min IV NOW STA Stop: 12/24/18 21:37 Last Admin: 12/24/18 22:11 Dose: 0.5 mls/min Documented by: [id number] Vancomycin HCl 750 mg/ Sodium (Chloride) 265 mls @ 125 mls/hr IV ONE ONE; Protocol Stop: 12/25/18 18:07 Last Infusion: 12/25/18 21:08 Dose: 0 mls/hr Documented by: [id number] Admin: 12/25/18 17:30 Dose: 125 mls/hr Documented by: [id number] Famotidine 20 mg/ Syringe 5 mls @ 2.5 mls/min IV ONE ONE Stop: 12/26/18 01:01 Last Admin: 12/26/18 02:10 Dose: 2.5 mls/min Documented by: [id number] Lorazepam (Ativan) 1 mg in 2 mls @ 2 mls/min IV NOW STA Stop: 12/27/18 10:04 Last Admin: 12/27/18 10:28 Dose: 2 mls/min Documented by: [id number] Insulin Detemir (Levemir Flextouch) 25 units SC HS [facility] Stop: 01/22/19 20:59 Last Admin: 12/23/18 20:43 Dose: 25 units Documented by: [id number] Cosigned by: [id number] Lorazepam (Ativan) Confirm Administered Dose 2 mg .ROUTE .STK-MED ONE Stop: 12/27/18 10:07 Last Admin: 12/27/18 10:29 Dose: Not Given Documented by: [id number] Olanzapine (Zyprexa) 2.5 mg PO ONE ONE Stop: 12/23/18 22:33 Last Admin: 12/23/18 22:45 Dose: 2.5 mg Documented by: [id number] Olanzapine (Zyprexa) 2.5 mg PO ONE ONE Stop: 12/24/18 21:37 Last Admin: 12/24/18 22:12 Dose: 2.5 mg Documented by: [id number] Quetiapine Fumarate (Seroquel) 50 mg PO [facility] Stop: 01/25/19 20:59 Last Admin: 12/27/18 20:48 Dose: Not Given Documented by: [id number] Admin: 12/26/18 19:59 Dose: 50 mg Documented by: [id number] Description This is a 21 electrode EEG with a single channel dedicated to limited EKG. The electrodes were placed in accordance with the International 10-20 system. There is a posterior dominant rhythm of 8 to 9 Hz which is symmetrically distributed and attenuates with eye opening. There is a normal anterior to posterior organization as well as a symmetrical frontal beta rhythm. Photic stimulation is unremarkable. There is generalized admixed 5 to 6 Hz theta activity observed throughout the study, although becoming more persistent in the latter half of the study. There are a few associated vertex waves. No sleep spindles. No focal slowing. No epileptiform abnormalities. Interpretation Borderline abnormal awake asleep EEG revealing mild generalized slowing suggest crys of a mild nonspecific encephalopathy. No epileptiform abnormalities. Clinical Correlation Mild encephalopathy. No evidence for seizure activity. Although myoclonic jerking was not captured on this EEG, a seizure disorder is not expected. See today's neurology consultation for further details.
[2018-12-29] MEDS: NEPHROCAPS PO SCH (11:22)
[2018-12-29] MEDS: DOXAZOSIN MESYLATE 1 MG TAB PO SCH (11:22)
[2018-12-29] MEDS: LISINOPRIL 40 MG TAB PO SCH (11:22)
--- NOTE | 2018-12-29 11:53 | Nephrology Progress Note ---
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 HD schedule Saturday, , and Saturday. He has been noncompliant with dialysis and repeatedly missing dialysis sessions. He had several admission over last few months after missing dialysis and having changes in mental status due. Augie was admitted to the hospital with progressive shortness of breath, confusion and overall not feeling well secondary to metabolic encephalopathy. BP, volume status, and metabolic profile acceptable. No indications for HD today. Plan treatment tomorrow per TTS schedule. (2) Personal history of noncompliance with medical treatment, presenting hazards to health: Augie stated that he is interested in continuing dialysis. He expressed understanding of the health risks associated with missed treatment. He will plan to continue TTS as Rx. (3) Anemia: Stable. NEMESIO therapy with HD as scheduled. (4) Hypertension: BP acceptable. No adjustment to treatment today. (5) Secondary hyperparathyroidism of renal origin: [facility]. Subjective No acute events overnight. Augie feels well today. He is breathing comfortably. Activity tolerance is fair. Review of Systems Review of Systems: All systems reviewed & are unremarkable except as noted in HPI & below Physical Exam Constitutional: well developed; no acute distress Eyes: no scleral abnormality and no corneal abnormality ENMT: Mouth: no oral mucosal abnormality and oral mucous membranes not dry Neck: normal visual inspection and trachea midline Respiratory: normal respiratory effort; no respiratory distress Auscultation: lungs clear to auscultation bilaterally Cardiovascular: Heart Sounds: normal S1 and normal S2 Extremities: + edema and + AV fistula Gastrointestinal (Abdomen): Percussion/Palpation: abdomen soft; abdomen nontender Musculoskeletal: Extremities: no cyanosis and no clubbing Skin: normal turgor; no rashes Neurologic: Motor/Sensory: no tremor and no asterixis Psychiatric: Orientation: alert Affect: euthymic affect Results & Data Vital Signs (Past 12 Hours) Vital Signs Temp Pulse Pulse Pulse Resp BP BP 12/29/18 11:20 36.4 C L 51 L 16 143/68 H 12/29/18 06:56 36.5 C 55 L 16 180/60 H 12/29/18 06:20 56 L 12/29/18 03:22 36.4 C L 56 L 16 165/68 H Pulse Ox 07/29/19 11:20 90 12/29/18 06:56 95 12/29/18 06:20 12/29/18 03:22 90 Laboratory Results Laboratory Results - last 24 hr 12/28/18 12/28/18 12/29/18 16:57 20:55 06:41 WBC 4.04 L RBC 2.94 L Hgb 8.0 L Hct 26.1 L MCV 88.8 MCH 27.2 MCHC 30.7 L RDW Std Deviation 55.6 H RDW Coeff of Jose C 16.9 H Plt Count 135 MPV 9.9 Sodium Potassium Chloride Carbon Dioxide Anion Gap BUN Creatinine Est Cr Clr Drug Dosing Est GFR ( Amer) Est GFR (Non-Af Amer) BUN/Creatinine Ratio Glucose POC Glucose 169 H 201 H Calcium Phosphorus Total Bilirubin AST ALT Alkaline Phosphatase Total Protein Albumin Globulin Albumin/Globulin Ratio 12/29/18 12/29/18 12/29/18 06:41 07:13 11:22 WBC RBC Hgb Hct MCV MCH MCHC RDW Std Deviation RDW Coeff of Jose C Plt Count MPV Sodium 141 Potassium 3.5 Chloride 104 Carbon Dioxide 27 Anion Gap 10.0 BUN 40 H Creatinine 6.90 H* Est Cr Clr Drug Dosing 11.2 Est GFR ( Amer) 8.2 Est GFR (Non-Af Amer) 7.0 BUN/Creatinine Ratio 5.8 L Glucose 137 H POC Glucose 151 H 131 H Calcium 7.9 L Phosphorus 5.2 H Total Bilirubin 0.4 AST 18 ALT 26 Alkaline Phosphatase 94 Total Protein 5.7 L Albumin 2.9 L Globulin 2.8 Albumin/Globulin Ratio 1.0 (1) Hypertension Hypertension type: essential hypertension Qualified Code(s): I10 - Essential (primary) hypertension
--- NOTE | 2018-12-29 11:54 | Palliative Care Consultation ---
Date of Consultation December 29, 2018 Assessment & Plan (1) Goals of care, counseling/discussion: -78 year old male patient with PMH ESRD on dialysis, BPH, COPD, hypothyroidism, anemia, and others presented to the hospital six days ago with c/o increased SOB and altered mental status 2/2 four missed dialysis treatments. His BUN and creatinine were 170 and 15.2 on admission, now down to 40 and 6.90 with dialysis. Patient has also had issues throughout his hospital stay with confusion and lethargy, possibly secondary to hospital delirium. He had an EEG this morning which has not been officially read yet. Two head CT scans and MRI of brain are negative for anything acute. Uncertain etiology of encephalopathy. During times of clarity, patient has made several comments throughout his hospital stay about being unhappy with dialysis and possibly wanting to stop. The optometry doctor has engaged with patient and family several times about goals of care given patient's frequent noncompliance. Palliative care is now consulted to discuss goals of care. -Met with patient in room 239-2 this morning. patient is sitting up in bed, awake, alert and oriented x4. 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 He states he has missed several dialysis treatments in the past with no negative outcomes, so he thought he would be okay. -Patient states that he is no longer going to miss his dialysis treatments and DOES want to continue with full treatment. -We discussed CODE STATUS in detail, patient wishes to remain a full code. However, he would not want to live long-term on machines such as ventilator or with feeding tube. -For now, continue with full treatment. I will return in the afternoon when patient's is present to discuss. -Update 1615: Returned to patient's room several times. His is not present. Will follow as needed throughout hospitalization. (2) Encephalopathy: (3) Personal history of noncompliance with medical treatment, presenting hazards to health: (4) ESRD (end stage renal disease) on dialysis: History of Present Illness Reason for Consultation: Goals of care Requesting Physician: Dr. Villanueva Attending Physician: Justo Villanueva MD History of Present Illness This 78 year old male patient with PMH ESRD on dialysis, BPH, COPD, hypothyroidism, anemia, and others presented to the hospital six days ago with c/o increased SOB and altered mental status 2/2 four missed dialysis treatments. His BUN and creatinine were 170 and 15.2 on admission, now down to 40 and 6.90 with dialysis. Patient has also had issues throughout his hospital stay with confusion and lethargy, possibly secondary to hospital delirium. He had an EEG this morning which has not been officially read yet. Two head CT scans and MRI of brain are negative for anything acute. Uncertain etiology of encephalopathy. During times of clarity, patient has made several comments throughout his hospital stay about being unhappy with dialysis and possibly wanting to stop. The optometry doctor has engaged with patient and family several times about goals of care given patient's frequent noncompliance. Palliative care is now consulted to discuss goals of care. Thank you kindly for this consult. I will follow as needed. Allergies Allergy/AdvReac Type Severity Reaction Status Date / Time tramadol AdvReac Severe disorented Verified 12/22/18 23:43 ,falling down metformin AdvReac Intermediate CONFUSION Verified 12/22/18 23:43 Home Medications Home Medications Medication Instructions Recorded Confirmed Type docusate sodium 200 mg PO QAM 04/19/18 12/22/18 History gabapentin 100 mg PO HS 04/19/18 12/22/18 History lisinopril 40 mg PO DAILY@1200 04/19/18 12/22/18 History rosuvastatin 20 mg PO QPM 04/19/18 12/22/18 History pantoprazole 40 mg PO BID #60 tab 04/23/18 12/22/18 Rx Renal Caps 1 mg PO DAILY@1200 07/04/18 12/22/18 History hydralazine 10 mg PO TIDM 07/04/18 12/22/18 History amlodipine 10 mg tablet 10 mg PO HS #90 tab 11/12/18 12/22/18 Rx calcium acetate 667 mg capsule 1,334 mg PO TIDM #180 cap 11/12/18 12/22/18 Rx insulin syringe U-100 with needle #1 ea 11/12/18 12/22/18 History 0.5 mL 30 gauge x 1/2" labetalol 100 mg tablet 400 mg PO BID #720 tab 12/08/18 12/22/18 Rx levothyroxine 200 mcg tablet 200 mcg PO .COMPLEX #30 tab 12/15/18 12/22/18 Rx levothyroxine 50 mcg tablet 50 mcg PO .COMPLEX #30 tab 12/15/18 12/22/18 Rx furosemide 80 mg PO AMPM 12/22/18 12/22/18 History insulin detemir U-100 [Levemir 25 units SUBCUT HS 12/22/18 12/22/18 History U-100 Insulin] doxazosin 1 mg tablet 1 mg PO DAILY #90 tab 12/23/18 Rx tamsulosin 0.4 mg capsule 0.4 mg PO DAILY #90 cap 12/23/18 Rx Patient History Medical History Anemia BPH (benign prostatic hyperplasia) Hypothyroidism Secondary hyperparathyroidism of renal origin COPD (chronic obstructive pulmonary disease) Acute on chronic respiratory failure (Resolved) Altered mental status (Resolved) Chest pain (Resolved) Epistaxis (Resolved) Fluid overload (Resolved) Hypertensive urgency (Resolved) AVF (arteriovenous fistula) Abnormal colonoscopy Surgical History H/O cardiac catheterization H/O hemorrhoidectomy Hx of cholecystectomy No pertinent past surgical history Family History Unknown Myocardial infarction Diabetes Mother Diabetes Gallbladder disease Hypertension Breast cancer late 70s Father Diabetes Hypertension Brother Diabetes Hypertension Kidney disease Social History Preferred Language: Khmer Communication Ability: Effective Beliefs That Will Affect Care: None marital status: Current Living Situation: Spouse current occupational status: employed current occupation: works part-time at [employer] Feels Safe at Home: Yes Smoking Status: Former smoker Tobacco Type: cigarettes Second Hand Exposure: No Hx Alcohol Use: No Hx Substance Use: No Childhood Exposure to Second-Hand Smoke: No caffeine: Yes Dental Care, Regularly: Yes Physical Activity Frequency Comment: limited due physical condition Seatbelt Use: sometimes Review of Systems Constitutional: no weakness Respiratory: no cough and no dyspnea Cardiovascular: no chest pain and no edema Gastrointestinal: no abdominal pain and no nausea Neurologic: no confusion Physical Exam Constitutional: no acute distress ENMT: external ear and nose normal, oropharynx normal Respiratory: normal respiratory effort, lungs clear to auscultation Cardiovascular: RRR, no murmur, no edema Extremities: no edema Gastrointestinal (Abdomen): Inspection/Auscultation: abdomen normal to inspection and normal bowel sounds; abdomen not distended Skin: scabs and cellulitis of LLE Neurologic: moves all extremities and awake Psychiatric: Orientation: alert and oriented x 3 Results & Data Vital Signs (Past 12 Hours) Vital Signs Temp Pulse Pulse Pulse Resp BP BP 12/29/18 11:20 36.4 C L 51 L 16 143/68 H 12/29/18 06:56 36.5 C 55 L 16 180/60 H 12/29/18 06:20 56 L 12/29/18 03:22 36.4 C L 56 L 16 165/68 H Pulse Ox 12/29/18 11:20 90 12/29/18 06:56 95 12/29/18 06:20 12/29/18 03:22 90 PG Care Time/CCT Total # of Minutes Spent Total Time Spent with Patient: Total time spent is greater than 50% in coordination of care (as documented) at patient's floor/unit and/or counseling patient: Time Spent Midlevel 70 minutes with >50% of the time spent at bedside with patient and family discussing condition and GOC.
--- NOTE | 2018-12-29 14:15 | Hospitalist Progress Note ---
Date of Service December 29, 2018 Assessment & Plan (1) Encephalopathy: Patient has acute encephalopathy of undetermined etiology. Not appear to be toxic and his initial laboratory serologies seem to not suggest hepatic encephalopathy. The patient has been treated for infectious causes up with regard to his cellulitis which is improved clinically. he seems to be clear earlly in the am despite this fact he has daily episodes of sedation and at times hallucinations later in the morning and early afternoon. He did have improved sleep state overnight and initially wakes up in better condition. 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 Previously has had noncontrast CTs of his head without significant changes EEG performed 12/29 and neurolgy consult (2) ESRD (end stage renal disease) on dialysis: Patient presented to the emergency department with shortness of breath, anasarca, having missed the last 4 dialysis treatments unclear if pt want to consider stopping dialysis once again pursuing palliative care, or continue forward with persistent dialysis, however the pt told me in the am of 12/28 that he wants to continue dialysis, he continues with in hospital delerium and I spoke to his who is not comfortable making a decision regarding this. we will attempt to use some scheduled seroquel to see if we can avoid significant sedation overnight 12/26- so that he maybe more alert, will check full serologies in am 12/27 typical home medications include amlodipine 10 mg daily at bedtime, doxazosin 1 mg p.o. daily at noon, furosemide 80 mg p.o. twice daily, hydralazine 10 mg p.o. 3 times daily with meals, labetalol 40 mg p.o. twice daily and lisinopril 40 mg p.o. daily., however while suffering from toxic encephalopathy and sedated was unable to take po meds and iv hydralazine and metoprolol are used for blood pressure control Palliative care consult for goal of care and possibly stopping vs continuing dialysis (3) Personal history of noncompliance with medical treatment, presenting hazards to health: The patient has a history of missing several dialysis treatments in a row as noted today and has been noted in the record in the past., Patient may be interested in talking about goals of care with palliative care team, when he is clear he remains unsure of his final decision. (4) Cellulitis of left lower extremity without foot: initial with Moderately severe diabetic cellulitis and abscess of left lower extremity-greatly improved after antibiotics,did change to IV doxycycline with a pending Lyme titer (5) Hypertension: See above., needed some iv control intermittently (6) Diabetic peripheral neuropathy: Usually controlled with gabapentin. (7) Type II diabetes mellitus with complication, uncontrolled: has had challenges with variable eating will hold basal insulin Placed on Accu-Cheks with NovoLog coverage carb ratio and correction factor (8) Hyperlipidemia LDL goal <70: hold rosuvastatin 20 mg (9) Hypothyroidism: remains on levothyroxine 50 mcg daily (10) BPH (benign prostatic hyperplasia): has been continued on tamsulosin. (11) Elevated troponin: demand ischemia less likely acute coronary syndrome Subjective Patient continues to be more awake in the morning last week in the afternoon EEG and neurology consult is pending patient is also spoken to palliative care which will coordinate a meeting with family about continuation versus discontinuation of dialysis Review of Systems Review of Systems: ROS: Patient is tired and chronically ill-appearing No double vision blurry vision No problems with speech or swallowing No palpitations, chest pain or pressure No Wheezing or breathing issues No abdominal pain nausea vomiting diarrhea changes in appetite or weight No burning urine urine frequency or changes in color No focal joint pain or muscle pain No skin healing cellulitis of his left lower extremity with some sharp No unusual bruising or bleeding No focused back pain or numbness or loss of strength Waxing and waning alertness and confusion Physical Exam Physical Exam: The patient appeared well nourished and normally developed. Vital signs as documented. Head exam is unremarkable. normocephalic, atraumatic Neck is without jugular venous distension, thyromegaly, or lymphademopathy Lungs are clear to auscultation and percussion. Cardiac exam reveals Rhythm is regular. TIMO Abdominal exam reveals normal bowel sounds, no masses, no organomegaly Extremities are mildly edematous and improving cellulitis Neurologic exam is A&Ox3, but also has periods of lethargy, no focal deficits, strength is equal bilateral Psychologically seems depressed Skin is warm Dry improving skin infection Results & Data Vital Signs (Past 12 Hours) Vital Signs Temp Pulse Pulse Pulse Resp BP BP 12/29/18 11:20 36.4 C L 51 L 16 143/68 H 12/29/18 06:56 36.5 C 55 L 16 180/60 H 12/29/18 06:20 56 L 12/29/18 03:22 36.4 C L 56 L 16 165/68 H Pulse Ox 12/29/18 11:20 90 12/29/18 06:56 95 12/29/18 06:20 12/29/18 03:22 90 PG Care Time/CCT Total # of Minutes Spent Total Time Spent with Patient: Total time spent is greater than 50% in coordination of care (as documented) at patient's floor/unit and/or counseling patient: (1) Hypertension Hypertension type: essential hypertension Qualified Code(s): I10 - Essential (primary) hypertension (2) Hypothyroidism Hypothyroidism type: acquired Qualified Code(s): E03.9 - Hypothyroidism, unspecified (3) BPH (benign prostatic hyperplasia) Lower urinary tract symptom presence: unspecified whether lower urinary tract symptoms present Qualified Code(s): N40.0 - Benign prostatic hyperplasia without lower urinary tract symptoms
[2018-12-29] MEDS: D5W AND NSS 1,000 ML IV SCH (14:35)
[2018-12-29] MEDS: AMLODIPINE BESYLATE 5 MG TAB PO SCH (20:01)
[2018-12-29] MEDS: QUETIAPINE FUMARATE 25 MG TABLET PO SCH (20:02)
[2018-12-29] MEDS: TAMSULOSIN HCL 0.4 MG CAP PO SCH (20:02)
[2018-12-30] MEDS: METOPROLOL TARTRATE 1 MG/ML VIAL IV PRN (00:19)
[2018-12-30] MEDS: DOXYCYCLINE HYCLATE 100 MG in DEXTROSE 5% 100 ML IV SCH ×2 (03:59→16:24)
[2018-12-30] MEDS: HydrALAZINE HCL 20 MG/ML VIAL IV PRN ×2 (04:42→19:18)
[2018-12-30] MEDS: D5W AND NSS 1,000 ML IV SCH ×2 (05:57→18:10)
[2018-12-30] MEDS: LEVOTHYROXINE SODIUM 125 MCG TABLET PO SCH (05:57)
[2018-12-30 06:38] LABS: Hematocrit (blood only) 26.8 % (42-52); Hemoglobin 8.2 g/dL (14.0-18.0); Mean Corpuscular Hgb Conc 30.6 g/dL (32-36); Mean Corpuscular Volume 88.7 fL (80-100); Mean Platelet Volume 9.9 fL (7.4-10.4); Platelet Count 138 K/uL (130-400); RDW Coefficient of Variation 17.3 % (11.5-14.5); RDW Standard Deviation 56.4 fL (36.4-46.3); Red Blood Count 3.02 M/uL (4.7-6.1); White Blood Count 4.02 K/uL (4.8-10.8)
[2018-12-30] MEDS ORDERED: SODIUM CHLORIDE 0.9% 1000ML 1,000 ML IV PRN (07:00)
[2018-12-30 07:22] LABS: BUN Creatinine Ratio 5.7 (10-20); Calcium 8.4 mg/dl (8.5-10.1); Creatinine Clr Calc Pharmacy 9.8 ml/min; Est GFR (African American) 6.8; Est GFR (Non-African American) 5.9; Phosphorus 5.5 mg/dl (2.5-4.9); Potassium 3.8 mmol/L (3.5-5.1)
[2018-12-30] MEDS: INSULIN ASPART 100 UNITS/ML 3 ML PEN SC SCH ×4 (08:08→20:27)
--- NOTE | 2018-12-30 10:33 | Nephrology Progress Note ---
Date of Service December 30, 2018 Assessment & Plan (1) ESRD (end stage renal disease) on dialysis: 78-year-old gentlemen with end-stage renal disease secondary to hypertensive and diabetic nephropathy. HD schedule Saturday, , and Saturday. He has been noncompliant with dialysis and repeatedly missing dialysis sessions. He had several admission over last few months after missing dialysis and having changes in mental status due. Augie was admitted to the hospital with progressive shortness of breath, confusion and overall not feeling well secondary to metabolic encephalopathy. HD treatment orders reviewed with dialysis nurse. UF goal 2 L. Qb appropriate. Clearances at goal. (2) Personal history of noncompliance with medical treatment, presenting hazards to health: Augie stated that he is interested in continuing dialysis. He expressed understanding of the health risks associated with missed treatment. He will plan to continue TTS as Rx. (3) Anemia: Stable. NEMESIO therapy with HD as scheduled. (4) Hypertension: BP acceptable. (5) Secondary hyperparathyroidism of renal origin: Phoslo QAC. Subjective No acute events overnight. Augie was seen and evaluated during hemodialysis today. He is tolerating the treatment well. Qb appropriate. Kidney function acceptable. Review of Systems Review of Systems: All systems reviewed & are unremarkable except as noted in HPI & below Physical Exam Constitutional: well developed; no acute distress Eyes: no scleral abnormality and no corneal abnormality ENMT: Mouth: no oral mucosal abnormality and oral mucous membranes not dry Neck: normal visual inspection and trachea midline Respiratory: normal respiratory effort; no respiratory distress Auscultation: lungs clear to auscultation bilaterally Cardiovascular: Heart Sounds: normal S1 and normal S2 Extremities: + edema and + AV fistula Gastrointestinal (Abdomen): Percussion/Palpation: abdomen soft; abdomen n ontender Musculoskeletal: Extremities: no cyanosis and no clubbing Skin: normal turgor; no rashes Neurologic: Motor/Sensory: no tremor and no asterixis Psychiatric: Orientation: alert Affect: euthymic affect Results & Data Vital Signs (Past 12 Hours) Vital Signs Temp Pulse Pulse Pulse Resp BP BP 12/30/18 09:20 58 L 158/70 H 12/30/18 09:00 59 L 154/66 H 12/30/18 08:44 59 L 164/58 H 12/30/18 08:32 36.6 C 57 L 12/30/18 06:56 36.5 C 57 L 19 156/64 H 12/30/18 05:56 12/30/18 04:23 36.8 C 57 L 20 196/79 H 12/30/18 02:00 12/30/18 00:17 36.5 C 60 19 190/70 H BP Pulse Ox 12/30/18 09:20 12/30/18 09:00 12/30/18 08:44 12/30/18 08:32 12/30/18 06:56 96 12/30/18 05:56 163/74 H 12/30/18 04:23 98 12/30/18 02:00 169/72 H 12/30/18 00:17 96 Laboratory Results Laboratory Results - last 24 hr 12/29/18 12/29/18 12/29/18 11:22 16:08 20:22 WBC RBC Hgb Hct MCV MCH MCHC RDW Std Deviation RDW Coeff of Jose C Plt Count MPV Sodium Potassium Chloride Carbon Dioxide Anion Gap BUN Creatinine Est Cr Clr Drug Dosing Est GFR ( Amer) Est GFR (Non-Af Amer) BUN/Creatinine Ratio Glucose POC Glucose 131 H 140 H 142 H Calcium Phosphorus Albumin 12/30/18 12/30/18 12/30/18 06:18 06:18 07:33 WBC 4.02 L RBC 3.02 L Hgb 8.2 L Hct 26.8 L MCV 88.7 MCH 27.2 MCHC 30.6 L RDW Std Deviation 56.4 H RDW Coeff of Jose C 17.3 H Plt Count 138 MPV 9.9 Sodium 142 Potassium 3.8 Chloride 107 Carbon Dioxide 26 Anion Gap 9.0 BUN 45 H Creatinine 7.98 H* D Est Cr Clr Drug Dosing 9.8 Est GFR ( Amer) 6.8 Est GFR (Non-Af Amer) 5.9 BUN/Creatinine Ratio 5.7 L Glucose 151 H POC Glucose 156 H Calcium 8.4 L Phosphorus 5.5 H Albumin 3.0 L (1) Hypertension Hypertension type: essential hypertension Qualified Code(s): I10 - Essential (primary) hypertension
[2018-12-30] MEDS ORDERED: EPOETIN ALFA 10,000 UNITS in SYRINGE 0 ML IV SCH (11:30)
[2018-12-30] MEDS ORDERED: EPOETIN ALFA 10,000 UNITS/ML VIAL SQ SCH (11:30)
[2018-12-30] MEDS: CALCIUM ACETATE 667 MG CAP PO SCH ×3 (13:15→16:19)
[2018-12-30] MEDS: NEPHROCAPS PO SCH (13:32)
[2018-12-30] MEDS: LISINOPRIL 40 MG TAB PO SCH (13:32)
[2018-12-30] MEDS: LABETALOL HCL 200 MG TAB PO SCH ×2 (13:33→22:11)
[2018-12-30] MEDS: FUROSEMIDE 80 MG TAB PO SCH ×2 (13:33→16:20)
[2018-12-30] MEDS: DOXAZOSIN MESYLATE 1 MG TAB PO SCH (13:33)
[2018-12-30] MEDS: HydrALAZINE 10 MG TAB PO SCH ×3 (13:33→16:19)
[2018-12-30] MEDS: PANTOprazole 40 MG TAB PO SCH ×2 (13:34→22:11)
[2018-12-30] MEDS: DOCUSATE SODIUM 100 MG CAP PO SCH (13:34)
--- NOTE | 2018-12-30 16:25 | Palliative Care Progress Note ---
Date of Service December 30, 2018 Subjective Attempted to see patient today for brief follow up, but he was at dialysis treatment. Palliative care will sign off, but please contact or reconsult us with any further needs. Results & Data Vital Signs (Past 12 Hours) Vital Signs Temp Pulse Pulse Pulse Pulse Resp BP 12/30/18 15:56 36.4 C L 53 L 17 12/30/18 13:20 36.8 C 56 L 60 12/30/18 12:20 60 187/59 H 12/30/18 12:09 36.5 C 56 L 18 12/30/18 12:00 61 169/65 H 12/30/18 11:40 58 L 189/78 H 12/30/18 11:20 59 L 181/70 H 12/30/18 11:00 62 180/68 H 12/30/18 10:40 59 L 202/68 H 12/30/18 10:20 58 L 177/65 H 12/30/18 10:00 57 L 163/58 H 12/30/18 09:40 60 156/62 H 12/30/18 09:20 58 L 158/70 H 12/30/18 09:00 59 L 154/66 H 12/30/18 08:44 59 L 164/58 H 12/30/18 08:32 36.6 C 57 L 12/30/18 06:56 36.5 C 57 L 19 12/30/18 05:56 BP BP Pulse Ox 12/30/18 15:56 146/56 H 95 12/30/18 13:20 190/76 H 12/30/18 12:20 12/30/18 12:09 104/72 98 12/30/18 12:00 12/30/18 11:40 12/30/18 11:20 12/30/18 11:00 12/30/18 10:40 12/30/18 10:20 12/30/18 10:00 12/30/18 09:40 12/30/18 09:20 12/30/18 09:00 12/30/18 08:44 12/30/18 08:32 12/30/18 06:56 156/64 H 96 12/30/18 05:56 163/74 H PG Care Time/CCT Total # of Minutes Spent Total Time Spent with Patient: Total time spent is greater than 50% in coordination of care (as documented) at patient's floor/unit and/or counseling patient:
[2018-12-30] MEDS ORDERED: LORazepam 0.25 MG/0.5 ML VIAL IV STA (17:46)
[2018-12-30] MEDS ORDERED: LORazepam 2 MG/4 ML VIAL ONE (17:47)
[2018-12-30] MEDS: HALOPERIDOL LACTATE 5 MG/ML 1 ML VIAL IV PRN ×2 (18:52→23:17)
[2018-12-30] MEDS: TAMSULOSIN HCL 0.4 MG CAP PO SCH (22:11)
[2018-12-30] MEDS: QUETIAPINE FUMARATE 25 MG TABLET PO SCH (22:11)
[2018-12-30] MEDS: AMLODIPINE BESYLATE 5 MG TAB PO SCH (22:11)
--- NOTE | 2018-12-30 23:36 | Hospitalist Progress Note ---
Date of Service December 30, 2018 Assessment & Plan (1) Encephalopathy: Patient has acute encephalopathy of undetermined etiology. Not appear to be toxic and his initial laboratory serologies seem to not suggest hepatic encephalopathy. The patient has been treated for infectious causes up with regard to his cellulitis which is improved clinically. he seems to be clear earlly in the am despite this fact he has daily episodes of sedation and at times hallucinations later in the morning and early afternoon. He did have improved sleep state overnight and initially wakes up in better condition. 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 Previously has had noncontrast CTs of his head without significant changes EEG performed 12/29 and neurology consult He does not appear to be having seizures, Unsure as the cause of his metabolic encephalopathy, likely from HD. Need to inprove night time sleeping. Needed to provide alprazolam for agitation. (2) ESRD (end stage renal disease) on dialysis: Patient presented to the emergency department with shortness of breath, anasarca, having missed the last 4 dialysis treatments unclear if pt want to consider stopping dialysis once again pursuing palliative care, or continue forward with persistent dialysis, however the pt told me in the am of 12/28 that he wants to continue dialysis, he continues with in hospital delerium and I spoke to his who is not comfortable making a decision regarding this. we will attempt to use some scheduled seroquel to see if we can avoid significant sedation overnight 12/26- so that he maybe more alert, will check full serologies in am 12/27 typical home medications include amlodipine 10 mg daily at bedtime, doxazosin 1 mg p.o. daily at noon, furosemide 80 mg p.o. twice daily, hydralazine 10 mg p.o. 3 times daily with meals, labetalol 40 mg p.o. twice daily and lisinopril 40 mg p.o. daily., however while suffering from toxic encephalopathy and sedated was unable to take po meds and iv hydralazine and metoprolol are used for blood pressure control Palliative care consult for goal of care and possibly stopping vs continuing dialysis (3) Personal history of noncompliance with medical treatment, presenting hazards to health: The patient has a history of missing several dialysis treatments in a row as noted today and has been noted in the record in the past., Patient may be interested in talking about goals of care with palliative care team, when he is clear he remains unsure of his final decision. (4) Cellulitis of left lower extremity without foot: initial with Moderately severe diabetic cellulitis and abscess of left lower extremity-greatly improved after antibiotics,did change to IV doxycycline. Lyme is negative. (5) Hypertension: See above., needed some iv control intermittently (6) Diabetic peripheral neuropathy: Usually controlled with gabapentin. (7) Type II diabetes mellitus with complication, uncontrolled: has had challenges with variable eating will hold basal insulin Placed on Accu-Cheks with NovoLog coverage carb ratio and correction factor (8) Hyperlipidemia LDL goal <70: hold rosuvastatin 20 mg (9) Hypothyroidism: remains on levothyroxine 50 mcg daily (10) BPH (benign prostatic hyperplasia): has been continued on tamsulosin. (11) Elevated troponin: demand ischemia less likely acute coronary syndrome Subjective 78 yo male is confused and trying to get out of the bed. I was called into the room as multiple staff members needed to calm him down. Patient was calm prior to dialysis. Will order lorazepam .25 mg IV X1. Review of Systems Review of Systems: ROS: Patient is tired and chronically ill-appearing No double vision blurry vision No problems with speech or swallowing No palpitations, chest pain or pressure No Wheezing or breathing issues No abdominal pain nausea vomiting diarrhea changes in appetite or weight No burning urine urine frequency or changes in color No focal joint pain or muscle pain No skin healing cellulitis of his left lower extremity with some sharp No unusual bruising or bleeding No focused back pain or numbness or loss of strength Waxing and waning alertness and confusion Physical Exam Physical Exam: The patient appeared well nourished and normally developed. Vital signs as documented. Head exam is unremarkable. normocephalic, atraumatic Neck is without jugular venous distension, thyromegaly, or lymphadenopathy Lungs are clear to auscultation and percussion. Cardiac exam reveals Rhythm is regular. TIMO Abdominal exam reveals normal bowel sounds, no masses, no organomegaly Extremities are mildly edematous and improving cellulitis Neurologic exam is A&Ox3, but also has periods of lethargy, no focal deficits, strength is equal bilateral Psychologically seems depressed Skin is warm Dry improving skin infection Results & Data Vital Signs (Past 12 Hours) Vital Signs Temp Pulse Pulse Pulse Resp BP BP 12/30/18 23:12 36.4 C L 70 19 193/70 H 12/30/18 23:01 62 12/30/18 19:11 36.4 C L 58 L 19 203/78 H 12/30/18 15:56 36.4 C L 53 L 17 146/56 H 12/30/18 13:20 36.8 C 56 L 60 190/76 H 12/30/18 12:20 60 187/59 H 12/30/18 12:09 36.5 C 56 L 18 12/30/18 12:00 61 169/65 H 12/30/18 11:40 58 L 189/78 H BP Pulse Ox 12/30/18 23:12 91 12/30/18 23:01 12/30/18 19:11 92 12/30/18 15:56 95 12/30/18 13:20 12/30/18 12:20 12/30/18 12:09 104/72 98 12/30/18 12:00 12/30/18 11:40 PG Care Time/CCT Total # of Minutes Spent Total Time Spent with Patient: Total time spent is greater than 50% in coordination of care (as documented) at patient's floor/unit and/or counseling patient: (1) BPH (benign prostatic hyperplasia) Lower urinary tract symptom presence: unspecified whether lower urinary tract symptoms present Qualified Code(s): N40.0 - Benign prostatic hyperplasia without lower urinary tract symptoms (2) Hypothyroidism Hypothyroidism type: acquired Qualified Code(s): E03.9 - Hypothyroidism, unspecified (3) Hypertension Hypertension type: essential hypertension Qualified Code(s): I10 - Essential (primary) hypertension
[2018-12-31] MEDS: HydrALAZINE HCL 20 MG/ML VIAL IV PRN ×2 (03:38→23:45)
[2018-12-31] MEDS: DOXYCYCLINE HYCLATE 100 MG in DEXTROSE 5% 100 ML IV SCH ×2 (03:44→16:46)
[2018-12-31] MEDS: LEVOTHYROXINE SODIUM 125 MCG TABLET PO SCH (06:03)
[2018-12-31] MEDS: PANTOprazole 40 MG TAB PO SCH ×2 (07:38→20:14)
[2018-12-31] MEDS: CALCIUM ACETATE 667 MG CAP PO SCH ×3 (07:38→17:46)
[2018-12-31] MEDS: HydrALAZINE 10 MG TAB PO SCH ×3 (07:38→16:47)
[2018-12-31] MEDS: DOCUSATE SODIUM 100 MG CAP PO SCH (07:38)
[2018-12-31] MEDS: LABETALOL HCL 200 MG TAB PO SCH ×2 (07:38→20:14)
[2018-12-31] MEDS: FUROSEMIDE 80 MG TAB PO SCH ×2 (07:39→17:07)
[2018-12-31] MEDS: INSULIN ASPART 100 UNITS/ML 3 ML PEN SC SCH ×4 (08:31→20:40)
[2018-12-31] MEDS: LISINOPRIL 40 MG TAB PO SCH (12:06)
[2018-12-31] MEDS: NEPHROCAPS PO SCH (12:06)
[2018-12-31] MEDS: DOXAZOSIN MESYLATE 1 MG TAB PO SCH (12:06)
[2018-12-31] MEDS: D5W AND NSS 1,000 ML IV SCH (12:50)
--- NOTE | 2018-12-31 13:40 | Nephrology Progress Note ---
Date of Service December 31, 2018 Assessment & Plan (1) ESRD (end stage renal disease) on dialysis: 78-year-old gentlemen with end-stage renal disease secondary to hypertensive and diabetic nephropathy. HD schedule Saturday, , and Saturday. He has been noncompliant with dialysis and repeatedly missing dialysis sessions. He had several admission over last few months after missing dialysis and having changes in mental status due. Augie was admitted to the hospital with progressive shortness of breath, confusion and overall not feeling well secondary to metabolic encephalopathy. BP and volume status appropriate. No changes to current plan of care. HD tomorrow per TTS schedule. (2) Personal history of noncompliance with medical treatment, presenting hazards to health: (3) Anemia: Stable. NEMESIO therapy with HD as scheduled. (4) Hypertension: BP acceptable. (5) Secondary hyperparathyroidism of renal origin: [facility]. Subjective Don tolerated HD yesterday without complications. Unfortunately, he became very agitated and confused this morning. He was sleeping comfortably at the time of my evaluation with a 1:1 at the bedside. Review of Systems Review of Systems: Unobtainable due to cognitive status Physical Exam Constitutional: well developed; no acute distress Eyes: no scleral abnormality and no corneal abnormality ENMT: Mouth: no oral mucosal abnormality and oral mucous membranes not dry Neck: normal visual inspection and trachea midline Respiratory: normal respiratory effort; no respiratory distress A uscultation: lungs clear to auscultation bilaterally Cardiovascular: Heart Sounds: normal S1 and normal S2 Extremities: + edema and + AV fistula Gastrointestinal (Abdomen): Percussion/Palpation: abdomen soft; abdomen nontender Musculoskeletal: Extremities: no cyanosis and no clubbing Skin: normal turgor; no rashes Neurologic: Motor/Sensory: no tremor and no asterixis Psychiatric: Orientation: alert Affect: euthymic affect Results & Data Vital Signs (Past 12 Hours) Vital Signs Temp Pulse Pulse Pulse Resp BP Pulse Ox 12/31/18 11:04 36.8 C 62 18 145/83 H 91 12/31/18 09:56 60 169/72 H 12/31/18 08:00 61 12/31/18 07:28 36.5 C 64 20 193/81 H 92 12/31/18 04:16 66 191/69 H 12/31/18 03:33 36.6 C 70 19 209/72 H 92 Laboratory Results Laboratory Results - last 24 hr 12/30/18 12/30/18 12/31/18 16:20 20:21 07:23 POC Glucose 140 H 156 H 142 H 12/31/18 11:31 POC Glucose 178 H Laboratory Results - last 24 hr 12/30/18 12/30/18 12/31/18 16:20 20:21 07:23 POC Glucose 140 H 156 H 142 H 12/31/18 11:31 POC Glucose 178 H (1) Hypertension Hypertension type: essential hypertension Qualified Code(s): I10 - Essential (primary) hypertension
[2018-12-31] MEDS: QUETIAPINE FUMARATE 25 MG TABLET PO SCH (20:14)
[2018-12-31] MEDS: AMLODIPINE BESYLATE 5 MG TAB PO SCH (20:14)
[2018-12-31] MEDS: TAMSULOSIN HCL 0.4 MG CAP PO SCH (20:14)
--- NOTE | 2018-12-31 23:58 | Hospitalist Progress Note ---
Date of Service December 31, 2018 Assessment & Plan (1) Encephalopathy: Patient has acute encephalopathy of undetermined etiology. Not appear to be toxic and his initial laboratory serologies seem to not suggest hepatic encephalopathy. The patient has been treated for infectious causes up with regard to his cellulitis which is improved clinically. he seems to be clear earlly in the am despite this fact he has daily episodes of sedation and at times hallucinations later in the morning and early afternoon. He did have improved sleep state overnight and initially wakes up in better condition. 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 Previously has had noncontrast CTs of his head without significant changes EEG performed 12/29 and neurology consult He does not appear to be having seizures, Unsure as the cause of his metabolic encephalopathy, likely from HD. Need to improve night time sleeping. Will transfer patient out of tele. Will see how patient tolerates HD on 01/01 Patient states he wants everything done, but at home patient is non compliant and ultimately decides to discontinue it when he is home. Explained to family that if he continues to be non compliant, patient should become hospice. At this point though would like to change his code status to DNR DNI. (2) ESRD (end stage renal disease) on dialysis: Patient presented to the emergency department with shortness of breath, anasarca, having missed the last 4 dialysis treatments unclear if pt want to consider stopping dialysis once again pursuing palliative care, or continue forward with persistent dialysis, however the pt told me in the am of 12/28 that he wants to continue dialysis, he continues with in hospital delerium and I spoke to his who is not comfortable making a decision regarding this. we will attempt to use some scheduled seroquel to see if we can avoid si gnificant sedation overnight 12/26- so that he maybe more alert, will check full serologies in am 12/27 typical home medications include amlodipine 10 mg daily at bedtime, doxazosin 1 mg p.o. daily at noon, furosemide 80 mg p.o. twice daily, hydralazine 10 mg p.o. 3 times daily with meals, labetalol 40 mg p.o. twice daily and lisinopril 40 mg p.o. daily., however while suffering from toxic encephalopathy and sedated was unable to take po meds and iv hydralazine and metoprolol are used for blood pressure control Palliative care consult for goal of care and possibly stopping vs continuing walter lysis (3) Personal history of noncompliance with medical treatment, presenting hazards to health: The patient has a history of missing several dialysis treatments in a row as noted today and has been noted in the record in the past., Patient may be interested in talking about goals of care with palliative care team, when he is clear he remains unsure of his final decision. (4) Cellulitis of left lower extremity without foot: initial with Moderately severe diabetic cellulitis and abscess of left lower extremity-greatly improved after antibiotics,did change to IV doxycycline. Lyme is negative. (5) Hypertension: See above., needed some iv control intermittently (6) Diabetic peripheral neuropathy: Usually controlled with gabapentin. (7) Type II diabetes mellitus with complication, uncontrolled: has had challenges with variable eating will hold basal insulin Placed on Accu-Cheks with NovoLog coverage carb ratio and correction factor (8) Hyperlipidemia LDL goal <70: hold rosuvastatin 20 mg (9) Hypothyroidism: remains on levothyroxine 50 mcg daily (10) BPH (benign prostatic hyperplasia): has been continued on tamsulosin. (11) Elevated troponin: demand ischemia less likely acute coronary syndrome Spent 35 minutes in management of patient. Subjective 78 yo male does not reports signifcant history. His family is at bedside, they state he continues to be intermittently confused, but improved as compared to before. Patient no longer appears agitated. Review of Systems Review of Systems: ROS: Patient is tired and chronically ill-appearing No double vision blurry vision No problems with speech or swallowing No palpitations, chest pain or pressure No Wheezing or breathing issues No abdominal pain nausea vomiting diarrhea changes in appetite or weight No burning urine urine frequency or changes in color No focal joint pain or muscle pain No skin healing cellulitis of his left lower extremity with some sharp No unusual bruising or bleeding No focused back pain or numbness or loss of strength Waxing and waning alertness and confusion Physical Exam Physical Exam: The patient appeared well nourished and normally developed. Vital signs as documented. Head exam is unremarkable. normocephalic, atraumatic Neck is without jugular venous distension, thyromegaly, or lymphadenopathy Lungs are clear to auscultation and percussion. Cardiac exam reveals Rhythm is regular. TIMO Abdominal exam reveals normal bowel sounds, no masses, no organomegaly Extremities are mildly edematous and improving cellulitis Neurologic exam is A&Ox3, but also has periods of lethargy, no focal deficits, strength is equal bilateral Psychologically seems depressed Skin is warm Dry improving skin infection Results & Data Vital Signs (Past 12 Hours) Vital Signs Temp Pulse Pulse Pulse Resp BP Pulse Ox 12/31/18 23:49 92 12/31/18 23:36 36.8 C 62 18 205/64 H 84 L 12/31/18 19:55 36.8 C 58 L 20 194/75 H 94 12/31/18 16:00 54 L 12/31/18 15:12 36.6 C 54 L 18 167/67 H 92 PG Care Time/CCT Total # of Minutes Spent Total Time Spent with Patient: Total time spent is greater than 50% in coordination of care (as documented) at patient's floor/unit and/or counseling patient: (1) BPH (benign prostatic hyperplasia) Lower urinary tract symptom presence: unspecified whether lower urinary tract symptoms present Qualified Code(s): N40.0 - Benign prostatic hyperplasia without lower urinary tract symptoms (2) Hypothyroidism Hypothyroidism type: acquired Qualified Code(s): E03.9 - Hypothyroidism, unspecified (3) Hypertension Hypertension type: essential hypertension Qualified Code(s): I10 - Essential (primary) hypertension
[2019-01-01] MEDS: DOXYCYCLINE HYCLATE 100 MG in DEXTROSE 5% 100 ML IV SCH ×2 (04:00→16:55)
[2019-01-01] MEDS: LEVOTHYROXINE SODIUM 125 MCG TABLET PO SCH (06:17)
[2019-01-01] MEDS ORDERED: SODIUM CHLORIDE 0.9% 1000ML 1,000 ML IV PRN (07:00)
[2019-01-01] MEDS: PANTOprazole 40 MG TAB PO SCH ×2 (08:18→20:35)
[2019-01-01] MEDS: DOCUSATE SODIUM 100 MG CAP PO SCH (08:19)
[2019-01-01] MEDS: CALCIUM ACETATE 667 MG CAP PO SCH ×3 (08:20→16:57)
[2019-01-01] MEDS: INSULIN ASPART 100 UNITS/ML 3 ML PEN SC SCH ×4 (08:22→21:43)
[2019-01-01] MEDS: HydrALAZINE 10 MG TAB PO SCH ×3 (09:13→16:56)
[2019-01-01] MEDS: LABETALOL HCL 200 MG TAB PO SCH ×2 (09:13→20:22)
--- NOTE | 2019-01-01 09:50 | Nephrology Progress Note ---
Date of Service January 01, 2019 Assessment & Plan (1) ESRD (end stage renal disease) on dialysis: 78-year-old gentlemen with end-stage renal disease secondary to hypertensive and diabetic nephropathy. HD schedule Saturday, , and Saturday. He has been noncompliant with dialysis and repeatedly missing dialysis sessions. He had several admission over last few months after missing dialysis and having changes in mental status due. Augie was admitted to the hospital with progressive shortness of breath, confusion and overall not feeling well secondary to metabolic encephalopathy. HD orders entered into EMR and discussed with the dialysis nurse workers compensation claims adjuster. UF goal 2 L. (2) Personal history of noncompliance with medical treatment, presenting hazards to health: Augie stated that he is interested in continuing dialysis. He expressed understanding of the health risks associated with missed treatment. He will plan to continue TTS as Rx. (3) Anemia: Stable. NEMESIO therapy with HD as scheduled. (4) Hypertension: BP acceptable. (5) Secondary hyperparathyroidism of renal origin: [facility]. Subjective No acute events overnight. Augie was out of bed and feeling reasonably well this morning. He reported some lightheadedness. Mental status improved. Augie hopes he can be discharged home today. He is agreeable to dialysis treatment today. Review of Systems Review of Systems: All systems reviewed & are unremarkable except as noted in HPI & below Physical Exam Constitutional: well developed; no acute distress Eyes: no scleral abnormality and no corneal abnormality ENMT: Mouth: no oral mucosal abnormality and oral mucous membranes not dry Neck: normal visual inspection and trachea midline Respiratory: normal respiratory effort; no respiratory distress Auscultation: lungs clear to auscultation bilaterally Cardiovascular: Heart Sounds: normal S1 and normal S2 Extremities: + edema and + AV fistula Gastrointestinal (Abdomen): Percussion/Palpation: abdomen soft; abdomen nontender Musculoskeletal: Extremities: no cyanosis and no clubbing Skin: normal turgor; no rashes Neurologic: Motor/Sensory: no tremor and no asterixis Psychiatric: Orientation: alert Affect: euthymic affect Results & Data Vital Signs (Past 12 Hours) Vital Signs Temp Pulse Pulse Pulse Resp BP BP 01/01/19 07:19 36.9 C 61 16 174/64 H 01/01/19 04:00 37 C 60 20 184/64 H 01/01/19 00:40 36.9 C 58 L 20 147/69 H 12/31/18 23:49 12/31/18 23:36 36.8 C 62 18 205/64 H 12/31/18 23:15 54 L Pulse Ox 01/01/19 07:19 91 01/01/19 04:00 90 01/01/19 00:40 93 12/31/18 23:49 92 12/31/18 23:36 84 L 12/31/18 23:15 Laboratory Results Laboratory Results - last 24 hr 12/31/18 12/31/18 12/31/18 11:31 16:23 20:24 POC Glucose 178 H 95 118 H 01/01/19 01/01/19 00:25 08:02 POC Glucose 113 H 108 H PG Care Time/CCT Total # of Minutes Spent Total Time Spent with Patient: Total time spent is greater than 50% in diesel scoop operator rdination of care (as documented) at patient's floor/unit and/or counseling patient: (1) Hypertension Hypertension type: essential hypertension Qualified Code(s): I10 - Essential (primary) hypertension
[2019-01-01] MEDS: FUROSEMIDE 80 MG TAB PO SCH ×2 (11:47→16:56)
[2019-01-01] MEDS: NEPHROCAPS PO SCH (11:56)
[2019-01-01] MEDS: DOXAZOSIN MESYLATE 1 MG TAB PO SCH (11:56)
[2019-01-01] MEDS: LISINOPRIL 40 MG TAB PO SCH (11:57)
[2019-01-01] MEDS: HydrALAZINE HCL 20 MG/ML VIAL IV PRN (19:38)
[2019-01-01] MEDS: AMLODIPINE BESYLATE 5 MG TAB PO SCH (20:17)
[2019-01-01] MEDS: TAMSULOSIN HCL 0.4 MG CAP PO SCH (20:18)
[2019-01-01] MEDS: QUETIAPINE FUMARATE 25 MG TABLET PO SCH (20:35)
--- NOTE | 2019-01-01 23:14 | Hospitalist Progress Note ---
Date of Service January 01, 2019 Assessment & Plan (1) Encephalopathy: Patient has acute encephalopathy of undetermined etiology. Not appear to be toxic and his initial laboratory serologies seem to not suggest hepatic encephalopathy. The patient has been treated for infectious causes up with regard to his cellulitis which is improved clinically. he seems to be clear earlly in the am despite this fact he has daily episodes of sedation and at times hallucinations later in the morning and early afternoon. He did have improved sleep state overnight and initially wakes up in better condition. 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 Previously has had noncontrast CTs of his head without significant changes EEG performed 12/29 and neurology consult He does not appear to be having seizures, Unsure as the cause of his metabolic encephalopathy, likely from HD. Need to improve night time sleeping. Patient tolerated well hemodialysis. Patient states he wants everything done, but at home patient is non compliant and ultimately decides to discontinue it when he is home. Tentative plan is to discharge patient in AM if patient continues to be no longer confused. (2) ESRD (end stage renal disease) on dialysis: Patient presented to the emergency department with shortness of breath, anasarca, having missed the last 4 dialysis treatments unclear if pt want to consider stopping dialysis once again pursuing palliative care, or continue forward with persistent dialysis, however the pt told me in the am of 12/28 that he wants to continue dialysis, he continues with in hospital delerium and I spoke to his who is not comfortable making a decision regarding this. we will attempt to use some scheduled seroquel to see if we can avoid significant sedation overnight 12/26- so that he maybe more alert, will check full serologies in am 12/27 typical home medications include amlodipine 10 mg daily at bedtime, doxazosin 1 mg p.o. daily at noon, furosemide 80 mg p.o. twice daily, hydralazine 10 mg p.o. 3 times daily with meals, labetalol 40 mg p.o. twice daily and lisinopril 40 mg p.o. daily., however while suffering from toxic encephalopathy and sedated was unable to take po meds and iv hydralazine and metoprolol are used for blood pressure control Palliative care consult for goal of care. Patient will be discharged with plans to continue on dialysis for now. (3) Personal history of noncompliance with medical treatment, presenting hazards to health: The patient has a history of missing several dialysis treatments in a row as noted today and has been noted in the record in the past., Patient may be interested in talking about goals of care with palliative care team, when he is clear he remains unsure of his final decision. (4) Cellulitis of left lower extremity without foot: initial with Moderately severe diabetic cellulitis and abscess of left lower extremity-greatly improved after antibiotics,did change to IV doxycycline. Lyme is negative. (5) Hypertension: See above., needed some iv control intermittently (6) Diabetic peripheral neuropathy: Usually controlled with gabapentin. (7) Type II diabetes mellitus with complication, uncontrolled: has had challenges with variable eating will hold basal insulin Placed on Accu-Cheks with NovoLog coverage carb ratio and correction factor (8) Hyperlipidemia LDL goal <70: hold rosuvastatin 20 mg (9) Hypothyroidism: remains on levothyroxine 50 mcg daily (10) BPH (benign prostatic hyperplasia): has been continued on tamsulosin. (11) Elevated troponin: demand ischemia less likely acute coronary syndrome Subjective 78 yo male reports feeling well. He is asking for discharge. Patienthas no new complaints. Review of Systems Review of Systems: ROS: Patient is tired and chronically ill-appearing No double vision blurry vision No problems with speech or swallowing No palpitations, chest pain or pressure No Wheezing or breathing issues No abdominal pain nausea vomiting diarrhea changes in appetite or weight No burning urine urine frequency or changes in color No focal joint pain or muscle pain No skin healing cellulitis of his left lower extremity with some sharp No unusual bruising or bleeding No focused back pain or numbness or loss of strength Physical Exam Physical Exam: The patient appeared well nourished and normally developed. Vital signs as documented. Head exam is unremarkable. normocephalic, atraumatic Neck is without jugular venous distension, thyromegaly, or lymphadenopathy Lungs are clear to auscultation and percussion. Cardiac exam reveals Rhythm is regular. TIMO Abdominal exam reveals normal bowel sounds, no masses, no organomegaly Extremities are mildly edematous and improving cellulitis Neurologic exam is A&Ox3, no longer lethargic no focal deficits, strength is equal bilateral Skin is warm Dry improving skin infection Results & Data Vital Signs (Past 12 Hours) Vital Signs Temp Pulse Pulse Pulse Resp BP BP 01/01/19 20:17 172/73 H 01/01/19 19:14 191/75 H 01/01/19 16:33 36.6 C 56 L 20 01/01/19 16:16 37.3 C 56 L 151/50 H 01/01/19 16:00 56 L 151/50 H 01/01/19 15:40 60 142/58 H 01/01/19 15:20 52 L 148/45 H 01/01/19 15:17 56 L 177/68 H 01/01/19 15:02 56 L 177/68 H 01/01/19 14:40 54 L 153/55 H 01/01/19 14:20 56 L 177/68 H 01/01/19 14:00 53 L 135/44 L 01/01/19 13:40 60 145/64 H 01/01/19 13:20 52 L 166/58 H 01/01/19 13:00 51 L 184/73 H 01/01/19 12:15 36.9 C 50 L BP Pulse Ox 01/01/19 20:17 01/01/19 19:14 01/01/19 16:33 190/79 H 98 01/01/19 16:16 01/01/19 16:00 01/01/19 15:40 01/01/19 15:20 01/01/19 15:17 01/01/19 15:02 01/01/19 14:40 01/01/19 14:20 01/01/19 14:00 01/01/19 13:40 01/01/19 13:20 01/01/19 13:00 01/01/19 12:15 PG Care Time/CCT Total # of Minutes Spent Total Time Spent with Patient: Total time spent is greater than 50% in coordina tion of care (as documented) at patient's floor/unit and/or counseling patient: (1) BPH (benign prostatic hyperplasia) Lower urinary tract symptom presence: unspecified whether lower urinary tract symptoms present Qualified Code(s): N40.0 - Benign prostatic hyperplasia wi thout lower urinary tract symptoms (2) Hypothyroidism Hypothyroidism type: acquired Qualified Code(s): E03.9 - Hypothyroidism, unspecified (3) Hypertension Hypertension type: essential hypertension Qualified Code(s): I10 - Essential (primary) hypertension
[2019-01-02] MEDS: DOXYCYCLINE HYCLATE 100 MG in DEXTROSE 5% 100 ML IV SCH (03:22)
[2019-01-02] MEDS: LEVOTHYROXINE SODIUM 125 MCG TABLET PO SCH (06:09)
[2019-01-02] MEDS: HydrALAZINE 10 MG TAB PO SCH ×2 (08:05→12:20)
[2019-01-02] MEDS: LABETALOL HCL 200 MG TAB PO SCH (08:05)
[2019-01-02] MEDS: PANTOprazole 40 MG TAB PO SCH (08:05)
[2019-01-02] MEDS: CALCIUM ACETATE 667 MG CAP PO SCH ×2 (08:05→12:20)
[2019-01-02] MEDS: INSULIN ASPART 100 UNITS/ML 3 ML PEN SC SCH ×2 (08:06→12:20)
[2019-01-02] MEDS: DOCUSATE SODIUM 100 MG CAP PO SCH (08:55)
[2019-01-02] MEDS: FUROSEMIDE 80 MG TAB PO SCH (08:55)
--- NOTE | 2019-01-02 09:45 | Nephrology Progress Note ---
Date of Service January 02, 2019 Assessment & Plan (1) ESRD (end stage renal disease) on dialysis: 78-year-old gentlemen with end-stage renal disease secondary to hypertensive and diabetic nephropathy. HD schedule Saturday, , and Saturday. He had several admission over last few months after missing dialysis and having changes in mental status. Augie was admitted to the hospital with progressive shortness of breath, confusion and overall not feeling well secondary to metabolic encephalopathy. Tolerated HD well yesterday without complications. BP acceptable. Volume status euvolemic. Clearances adequate. Good Qb with HD. Medications are appropriately dosed for kidney function. No adjustments to outpatient HD Rx will be required at discharge. (2) Personal history of noncompliance with medical treatment, presenting hazards to health: Augie stated that he is interested in continuing dialysis. He expressed understanding of the health risks associated with missed treatment. He will plan to continue TTS as Rx. (3) Anemia: Stable. NEMESIO therapy with HD as scheduled. (4) Hypertension: BP acceptable. (5) Secondary hyperparathyroidism of renal origin: [facility]. Subjective No acute events overnight. Augie was out of bed and feeling well this morning. Tolerated HD well yesterday. Net UF 2 L. Denies lightheadedness or dizziness this morning. Augie hopes he can be discharged home today. He states that he plans to attend outpatient HD as scheduled. Review of Systems Review of Systems: All systems reviewed & are unremarkable except as noted in HPI & below Physical Exam Constitutional: well developed; no acute distress Eyes: no scleral abnormality and no corneal abnormality ENMT: Mouth: no oral mucosal abnormality and oral mucous membranes not dry Neck: normal visual inspection and trachea midline Respiratory: normal respiratory effort; no respiratory distress Auscult ation: lungs clear to auscultation bilaterally Cardiovascular: Heart Sounds: normal S1 and normal S2 Extremities: + edema and + AV fistula Gastrointestinal (Abdomen): Percussion/Palpation: abdomen soft; abdomen nontender Musculoskeletal: Extremities: no cyanosis and no clubbing Skin: normal turgor; no rashes Neurologic: Motor/Sensory: no tremor and no asterixis Psychiatric: Orientation: alert Affect: euthymic affect Results & Data Vital Signs (Past 12 Hours) Vital Signs Temp Pulse Resp BP BP Pulse Ox 01/02/19 07:17 37 C 60 18 176/74 H 91 01/01/19 23:45 172/60 H 08/01/19 23:16 36.8 C 61 20 189/71 H 92 Laboratory Results Laboratory Results - last 24 hr 01/01/19 01/01/19 01/01/19 11:40 16:30 20:11 POC Glucose 114 H 111 H 106 H 01/02/19 07:35 POC Glucose 113 H PG Care Time/CCT Total # of Minutes Spent Total Time Spent with Patient: Total time spent is greater than 50% in coordination of care (as documented) at patient's floor/unit and/or counseling patient: (1) Hypertension Hypertension type: essential hypertension Qualified Code(s): I10 - Essential (primary) hypertension
[2019-01-02] MEDS: DOXAZOSIN MESYLATE 1 MG TAB PO SCH (12:20)
[2019-01-02] MEDS: NEPHROCAPS PO SCH (12:20)
[2019-01-02] MEDS: LISINOPRIL 40 MG TAB PO SCH (12:20)
--- NOTE | 2019-01-11 22:20 | Discharge Summary ---
Date of Service January 02, 2019 Admission HPI Per Admitting Provider The patient is a 78-year-old male with a past medical history of ESRD on HD, with frequent medical noncompliance, where he does not show up for scheduled dialysis, not uncommonly missing 4 appointments, as he did this time, and then presents to the emergency department with shortness of breath. Principal Diagnosis uremic (metabolic) encephalopathy Discharge Exam The patient appeared well nourished and normally developed. Vital signs as documented. Head exam is unremarkable. normocephalic, atraumatic Neck is without jugular venous distension, thyromegaly, or lymphadenopathy Lungs are clear to auscultation and percussion. Cardiac exam reveals Rhythm is regular. TIMO Abdominal exam reveals normal bowel sounds, no masses, no organomegaly Extremities are mildly edematous and improving cellulitis Neurologic exam is A&Ox3, no longer lethargic no focal deficits, strength is equal bilateral Skin is warm Dry improving skin infection Discharge Data Allergies Allergy/AdvReac Type Severity Reaction Status Date / Time tramadol AdvReac Severe disorented Verified 01/05/19 14:42 ,falling down metformin AdvReac Intermediate CONFUSION Verified 01/05/19 14:42 Consultations 12/23/18 00:31 ED Decision to Admit Stat 12/23/18 04:36 Consult Case Management - Discharge Planning Routine Consult Nephrology Routine 12/28/18 14:47 Consult Palliative Care Routine 12/28/18 15:57 Consult Neurology Routine Ordered Studies 12/25/18 09:01 CT head/brain wo con Stat 12/25/18 09:07 US carotid doppler BI Routine 12/27/18 14:32 MR brain wo con Routine Hospital Course (1) Encephalopathy: Patient has acute encephalopathy of undetermined etiology. Not appear to be toxic and his initial laboratory serologies seem to not suggest hepatic encephalopathy. The patient has been treated for infectious causes up with jeny crawley to his cellulitis which is improved clinically. he seems to be clear earlly in the am despite this fact he has daily episodes of sedation and at times hallucinations later in the morning and early afternoon. He did have improved sleep state overnight and initially wakes up in better condition. 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 Previously has had noncontrast CTs of his head without significant changes EEG performed 12/29 and neurology consult He does not appear to be having seizures, Unsure as the cause of his metabolic encephalopathy, likely from HD. Need to improve night time sleeping. Patient tolerated well hemodialysis day prior to discharge. Patient states he wants everything done, but at home patient is non compliant and ultimately decides to discontinue it when he is home. plan is to discharge patient today.. (2) ESRD (end stage renal disease) on dialysis: Patient presented to the emergency department with shortness of breath, anasarca, having missed the last 4 dialysis treatments unclear if pt want to consider stopping dialysis once again pursuing palliative care, or continue forward with persistent dialysis, however the pt told me in the am of 12/28 that he wants to continue dialysis, he continues with in hospital delerium and I spoke to his who is not comfortable making a decision regarding this. we will attempt to use some scheduled seroquel to see if we can avoid significant sedation overnight 12/26- so that he maybe more alert, will check full serologies in am 12/27 typical home medications include amlodipine 10 mg daily at bedtime, doxazosin 1 mg p.o. daily at noon, furosemide 80 mg p.o. twice daily, hydralazine 10 mg p.o. 3 times daily with meals, labetalol 40 mg p.o. twice daily and lisinopril 40 mg p.o. daily., however while suffering from toxic encephalopathy and sedated was unable to take po meds and iv hydralazine and metoprolol are used for blood pressure control Palliative care consult for goal of care. Patient will be discharged with plans to continue on dialysis for now. (3) Personal history of noncompliance with medical treatment, presenting hazards to health: The patient has a history of missing several dialysis treatments in a row as noted today and has been noted in the record in the past., Patient may be interested in talking about goals of care with palliative care team, when he is clear he remains unsure of his final decision. (4) Cellulitis of left lower extremity without foot: initial with Moderately severe diabetic cellulitis and abscess of left lower extremity-greatly improved after antibiotics,did change to IV doxycycline. Lyme is negative. (5) Hypertension: See above., needed some iv control intermittently (6) Diabetic peripheral neuropathy: Usually controlled with gabapentin. (7) Type II diabetes mellitus with complication, uncontrolled: has had challenges with variable eating will hold basal insulin Placed on Accu-Cheks with NovoLog coverage carb ratio and correction factor (8) Hyperlipidemia LDL goal <70: hold rosuvastatin 20 mg (9) Hypothyroidism: remains on levothyroxine 50 mcg daily (10) BPH (benign prostatic hyperplasia): has been continued on tamsulosin. (11) Elevated troponin: demand ischemia less likely acute coronary syndrome Total Time Total Time Spent Total Time Spent (In Minutes): 32 Total Time Includes: Examination of the Patient, Discharge Planning and Medication Reconciliation Discharge Plan Discharge Items Patient Disposition: Home - Self-Care Reason For Visit: ESRD ON HD NEEDS DIALYSIS, CELLULITIS OF LLE Discharge Diagnosis: ESRD on HD, needs dialysis, cellulitis of LLE Discharge Goals: Decrease discomfort Activity: Resume your previous activity Non-emergency contact: Primary Care Provider Call non-emergency contact if: you have any medication questions Follow-up/Referrals: Mahsa Wang DO [Primary Care Provider] - 01/05/19 3:00 pm (Please, follow up at Dr. Wang's office with her field technical assistant, Kirsty Antony PA-C, on SaturdayJanuary 05 at 3:00 pm. *If you need to change this appointment, call their office at [phone].) Diet: Regular Addtl Provider Instructions: You will be discharged today. Your confusion stemmed from missing dialysis. Will have you continue dialysis on your schedule of T-T-S. You have an appointment tomorrow. Will also have you continue on your antibiotics for your cellulitis for 2 more d ays Prescriptions: Continued labetalol 100 mg tablet 400 mg PO BID Qty: 720 RF: 0 levothyroxine 50 mcg tablet 50 mcg PO .COMPLEX Qty: 30 RF: 5 levothyroxine 200 mcg tablet 200 mcg PO .COMPLEX Qty: 30 RF: 5 doxazosin [Cardura] 1 mg tablet 1 mg PO DAILY Qty: 90 RF: 1 insulin syringe-needle U-100 [BD Insulin Syringe Ultra-Fine] 0.5 mL 30 gauge x 1/2" syringe .ROUTE .MEDSUPPLY Qty: 1 RF: 0 amlodipine 10 mg tablet 10 mg PO HS Qty: 90 RF: 0 calcium acetate 667 mg capsule 1,334 mg PO TIDM Qty: 180 RF: 3 docusate sodium 100 mg Capsule 200 mg PO QAM RF: 0 lisinopril 40 mg tablet 40 mg PO DAILY@1200 RF: 0 rosuvastatin 20 mg tablet 20 mg PO QPM RF: 0 pantoprazole 40 mg Tablet,Delayed Release (Dr/Ec) 40 mg PO BID Qty: 60 RF: 2 Renal Caps 1 mg Capsule 1 mg PO DAILY@1200 RF: 0 hydralazine 10 mg tablet 10 mg PO TIDM RF: 0 Levemir U-100 Insulin 100 unit/mL solution 25 units subcut HS RF: 0 furosemide 80 mg tablet 80 mg PO AMPM RF: 0 Changed tamsulosin 0.4 mg capsule 0.4 mg PO HS Qty: 90 RF: 1 No Action gabapentin 100 mg capsule 200 mg PO HS RF: 0 Stand-Alone Forms: [facility] Discharge Orders: Discharge Order (Routine); Ordered 01/02/19 Ordered By: Marcos Ling Admission Data Admit Date/Time: 12/23/18 02:20 Attending Provider: Marcos Ling Admit Provider: Hermilo Ashby Primary Care Provider: Mahsa Wang Other Providers: Hermilo Ashby ; Jama Gracia Emile Pierre III Service: Medical Other Interventions: Discharge Summary Assessment (RN) Last Done: 01/02/19 13:02 DC Date/Time DO NOT enter until pt leaves facility: 01/02/19 13:31
== END 2019-01-02 13:31 | disposition home or self-care (01) | DRG 640 ==
LOC: ED 22:32 → 1E 12-23 02:20 → SUATTDRO 12-23 02:20 → 1E 12-23 03:52 → 2S 12-24 18:57 → 2W 01-01 00:38
DX: G93.41 Metabolic encephalopathy; I24.8 Other forms of acute ischemic heart disease; G47.33 Obstructive sleep apnea (adult) (pediatric); N25.81 Secondary hyperparathyroidism of renal origin; E11.69 Type 2 diabetes mellitus with other specified complication; E11.22 Type 2 diabetes mellitus with diabetic chronic kidney disease; N40.0 Benign prostatic hyperplasia without lower urinary tract symptoms; E87.70 Fluid overload, unspecified; Z83.3 Family history of diabetes mellitus; N18.6 End stage renal disease; Z84.1 Family history of disorders of kidney and ureter; E11.51 Type 2 diabetes mellitus with diabetic peripheral angiopathy without gangrene; E78.5 Hyperlipidemia, unspecified; L03.116 Cellulitis of left lower limb; I12.0 Hypertensive chronic kidney disease with stage 5 chronic kidney disease or end stage renal disease; E03.9 Hypothyroidism, unspecified; Z91.15 Patient's noncompliance with renal dialysis; Z88.8 Allergy status to other drugs, medicaments and biological substances; Z79.4 Long term (current) use of insulin; J44.9 Chronic obstructive pulmonary disease, unspecified; Z87.891 Personal history of nicotine dependence; Z99.2 Dependence on renal dialysis

== ENCOUNTER 2019-02-15 11:46 | Inpatient (IN) ==
[2019-02-15 12:54] LABS: Hematocrit (blood only) 21.4 % (42-52); Hemoglobin 6.6 g/dL (14.0-18.0); Mean Corpuscular Hemoglobin 27.4 pg (25-34); Mean Corpuscular Hgb Conc 30.8 g/dL (32-36); Mean Corpuscular Volume 88.8 fL (80-100); Mean Platelet Volume 10.6 fL (7.4-10.4); Platelet Count 143 K/uL (130-400); RDW Coefficient of Variation 19.8 % (11.5-14.5); RDW Standard Deviation 65.4 fL (36.4-46.3); Red Blood Count 2.41 M/uL (4.7-6.1); White Blood Count 2.59 K/uL (4.8-10.8)
[2019-02-15 12:58] LABS: INR 1.2 (0.9-1.1); Partial Thromboplastin Time 27.7 Seconds (21.0-31.0); Prothrombin Time 12.4 Seconds (9.0-12.0)
[2019-02-15 13:04] LABS: Anisocytosis Present; Basophils # (auto) 0.03 K/uL (0-0.2); Basophils % (auto) 1.2 %; Eosinophils # (auto) 0.16 K/uL (0-0.5); Eosinophils % (auto) 6.2 %; Giant Platelets 1+; Lymphocytes # (auto) 0.43 K/uL (1.2-3.4); Lymphocytes % (auto) 16.6 %; Monocytes # (auto) 0.32 K/uL (0.11-0.59); Monocytes % (auto) 12.4 %; Neutrophils # (auto) 1.65 K/uL (1.4-6.5); Neutrophils % (auto) 63.6 %
[2019-02-15] MEDS ORDERED: SODIUM CHLORIDE 0.9% 250 ML IV PRN ×2 (13:06→16:30)
[2019-02-15 13:16] LABS: BUN Creatinine Ratio 11.2 (10-20); Blood Urea Nitrogen 65 mg/dl (7-18); Calcium 8.6 mg/dl (8.5-10.1); Carbon Dioxide 32 mmol/L (21-32); Chloride 100 mmol/L (98-107); Est GFR (African American) 10.1; Est GFR (Non-African American) 8.7; Glucose 141 mg/dl (70-99); Potassium 3.5 mmol/L (3.5-5.1); Sodium 142 mmol/L (136-145)
--- NOTE | 2019-02-15 14:46 | History & Physical Report ---
Date of Service February 15, 2019 Assessment & Plan (1) GI bleed: Hx of same, follows with [facility] [place] for care Last scope was 08/2018 Heme + in ED Planning for PRBC 2 units, will give lasix between units Monitor Per family this is an ongoing issue and no one is clear as to why Hb on admission 6.6, baseline appears to be around 8.2 GI c/s pending (2) ESRD (end stage renal disease) on dialysis: Follows with Dr. Briceno HD on Last session was 02/14 and was a regular session Cr on admission 5.7 (3) Cellulitis of left lower extremity without foot: Pt has ongoing issues with LE cellulitis. He was supposed to be seen by [facility] however states they have not been called to be told which office to go to. He was restarted on abx by Dr. Briceno last week, but they do not know which abx. There are no notes from Dr. Briceno from last week, however there is a nursing note from Dr. Wang's office regarding LE cellulitis. There is no mention of abx being ordered in this note. I will order keflex for now. 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, with long-term current use of insulin: SSI PRN given NPO status A1c pending (7) Depression: continue home meds (8) Diabetic peripheral neuropathy: continue home meds (9) Hiatal hernia with GERD without esophagitis: continue home meds (10) Obstructive sleep apnea: O2 via NC (11) BPH (benign prostatic hyperplasia): continue home meds (12) Hypothyroidism: continue home meds (13) Hypertension: continue home meds (14) COPD (chronic obstructive pulmonary disease): With chronic respiratory failure continue home meds No exacerbation currently (15) Hyperlipidemia LDL goal <70: continue home meds (16) DVT prophylaxis: SCDs only given GIB History of Present Illness Primary Care Provider: Mahsa Wang, DO 78 y/o M who was told to come to the ED for low Hb. Pt has HD on . He had his usual HD session yesterday and labs were drawn after. His Hb was noted to be low so he was instructed to come to the hospital for transfusion. Pt states he has had black stools for several months. He occasionally notices brighter red in his underwear and this has happened the last few days. He does have rectal pain, mostly with bowel movements. He does have diffuse abd pain that comes and goes, does not seem to be related to PO intake. He also gets period chest pain without specific cause on occasion, not related to abd pain. He is always SOB and uses O2 2L via NC continuous. He has no issues with PO intake. He states that he has regular issues with constipation. Pt has ongoing issues with LE cellulitis. He was supposed to be seen by [facility] however states they have not been called to be told which office to go to. He was restarted on abx by Dr. Briceno last week, but they do not know which abx. There are no notes from Dr. Briceno from last week, however there is a nursing note from Dr. Wang's office regarding LE cellulitis. There is no mention of abx being ordered in this note. Family states that pt has been having issues with rectal bleeding for quite some time. He was being followed at [facility] [place] due to the location of the bleeding requiring pediatric scoping. His last appt with them was August and he was told f/u was not needed for at least 6 months after having a scope at that time. Pt denies fever, n/v. Pt has ongoing LE pain or swelling. Allergies Allergy/AdvReac Type Severity Reaction Status Date / Time tramadol AdvReac Severe disorented Verified 02/15/19 12:26 ,falling down metformin AdvReac Intermediate CONFUSION Verified 02/15/19 12:26 Home Medications Home Medications Medication Instructions Recorded Confirmed Type pantoprazole 40 mg PO BID #60 tab 04/23/18 02/15/19 Rx amlodipine 10 mg tablet 10 mg PO HS #90 tab 11/12/18 02/15/19 Rx labetalol 100 mg tablet 400 mg PO BID #720 tab 12/08/18 02/15/19 Rx doxazosin 1 mg tablet 1 mg PO DAILY #90 tab 12/23/18 02/15/19 Rx tamsulosin 0.4 mg PO HS #90 cap 01/02/19 02/15/19 Rx docusate sodium 100 mg capsule 200 mg PO QAM #30 cap 01/19/19 02/15/19 Rx furosemide 80 mg tablet 80 mg PO AMPM #60 tab 01/19/19 02/15/19 Rx hydralazine 10 mg tablet 10 mg PO TIDM #90 tab 01/19/19 02/15/19 Rx insulin detemir (U- 100) 100 20 units SUBCUT HS #10 ml 01/19/19 02/15/19 Rx unit/mL subcutaneous solution insulin syringe U-100 with needle #10 ea 01/19/19 01/19/19 Rx 0.5 mL 30 gauge x 1/2" lisinopril 40 mg tablet 40 mg PO DAILY@1200 #30 tab 01/19/19 02/15/19 Rx rosuvastatin 20 mg tablet 20 mg PO QPM #90 tab 01/19/19 02/15/19 Rx gabapentin 100 mg capsule 200 mg PO HS #60 cap 02/04/19 02/15/19 Rx B complex with C 20-folic acid 1 mg PO DAILY 02/15/19 02/15/19 History [Renal Caps] levothyroxine 50 mcg PO UD 02/15/19 02/15/19 History levothyroxine 200 mcg PO DAILY 02/15/19 02/15/19 History sevelamer carbonate 1,600 mg PO TID 02/15/19 02/15/19 History Past Med/Surg History Medical History AVF (arteriovenous fistula) Hypnic jerks Uncontrolled daytime somnolence Hyperlipidemia LDL goal <70 Personal history of noncompliance with medical treatment, presenting hazards to health Cellulitis of left lower extremity without foot Volume overload Mitral regurgitation Anxiety Arthritis BMI 40.0-44.9, adult Chronic diastolic congestive heart failure Chronic kidney disease, stage IV (severe) 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, with long-term current use of insulin Depression Diabetic peripheral neuropathy ESRD (end stage renal disease) on dialysis Hiatal hernia with GERD without esophagitis Hearing difficulty IgG monoclonal gammopathy Memory loss Nephrotic syndrome Obstructive sleep apnea Occlusion and stenosis of unspecified carotid artery Osteoporosis Peripheral vascular disease Pulmonary hypertension Vitamin D deficiency Anemia Gastric ulcer CAD (coronary artery disease) BPH (benign prostatic hyperplasia) Hypothyroidism Hypertension Asthma Secondary hyperparathyroidism of renal origin COPD (chronic obstructive pulmonary disease) Acute on chronic respiratory failure (Resolved) Altered mental status (Resolved) Chest pain (Resolved) Elevated troponin (Resolved) Encephalopathy (Resolved) Epistaxis (Resolved) Fluid overload (Resolved) Hypertensive urgency (Resolved) Hypoxia (Resolved) Abnormal colonoscopy Surgical History H/O cardiac catheterization H/O hemorrhoidectomy Hx of cholecystectomy No pertinent past surgical history Family History Unknown Myocardial infarction Diabetes Mother Diabetes Gallbladder disease Hypertension Breast cancer late 70s Father Diabetes Hypertension Brother Diabetes Hypertension Kidney disease Social History Preferred Language: Congolese Communication Ability: Effective Mission Coordinator Required: No Beliefs That Will Affect Care: None marital status: Current Living Situation: Spouse current occupational status: employed current occupation: works part-time at [employer] Feels Safe at Home: Yes Smoking Status: Former smoker Tobacco Type: cigarettes ; Number of Years Since Quit: 25 ; Second Hand Exposure: No ; Hx Alcohol Use: No Hx Substance Use: No Childhood Exposure to Second-Hand Smoke: No caffeine: Yes Dental Care, Regularly: Yes Physical Activity Frequency Comment: limited due physical condition Seatbelt Use: sometimes Review of Systems Review of Systems: Pertinent positives and negatives reviewed in HPI--all others negative Physical Exam Constitutional: WD/WN, vitals as above Eyes: normal visual arreaga by confrontation and + anicteric sclerae Neck: normal visual inspection and trachea midline Respiratory: normal respiratory effort, lungs clear to auscultation Cardiovascular: Rate/Rhythm: regular rate and regular rhythm Gastrointestinal (Abdomen): Inspection/Auscultation: abdomen not distended Percussion/Palpation: abdomen soft and + hernia (R lateral just lateral to open agnes scar, reducible and soft); abdomen nontender Musculoskeletal: Head/Neck/Chest: normocephalic and head atraumatic b/l 2+ pitting LE edema, peripheral pulses intact Skin: b/l LE redness and bandages that are clean and dry. No open ulcerations Neurologic: awake; not confused Speech / Cognition: normal speech Psychiatric: A+Ox3, euthymic affect Results & Data Vital Signs (Past 12 Hours) Vital Signs Temp Pulse Resp BP Pulse Ox 02/15/19 14:25 36.7 C 62 20 169/66 H 96 02/15/19 14:10 36.8 C 62 18 153/55 H 02/15/19 13:54 36.9 C 62 20 156/63 H 96 02/15/19 12:01 88 L 02/15/19 11:47 36.7 C 60 20 135/58 L 91 Code Status & VTE Plan Code Status Full code VTE Prophylaxis Plan VTE Prophylaxis will be ordered: Yes PG Care Time/CCT Total # of Minutes Spent Total Time Spent with Patient: Total time spent is greater than 50% in coor dination of care (as documented) at patient's floor/unit and/or counseling patient: (1) GI bleed GI bleed type/associated pathology: unspecified gastrointestinal hemorrhage type Qualified Code(s): K92.2 - Gastrointestinal hemorrhage, unspecified (2) BPH (benign prostatic hyperplasia) Lower urinary tract symptom presence: unspecified whether lower urinary tract symptoms present Qualified Code(s): N40.0 - Benign prostatic hyperplasia without lower urinary tract symptoms (3) Hypothyroidism Hypothyroidism type: acquired Qualified Code(s): E03.9 - Hypothyroidism, unspecified (4) Hypertension Hypertension type: essential hypertension Qualified Code(s): I10 - Essential (primary) hypertension (5) COPD (chronic obstructive pulmonary disease) COPD type: unspecified COPD Qualified Code(s): J44.9 - Chronic obstructive pulmonary disease, unspecified
[2019-02-15] MEDS ORDERED: PANTOprazole 80 MG in DEXTROSE 5% 100 ML IV SCH (15:00)
--- NOTE | 2019-02-15 16:03 | Emergency Department Note ---
Entered by Sofia Tobias acting as a scribe for Jose Manuel Gil History of Present Illness General Chief complaint: Rectal Bleed Stated complaint: RECTAL BLEEDING,LOW BLOOD COUNT Time Seen by Provider: 02/15/19 12:08 Source: patient History of Present Illness Onset (ago): day(s) 2 Location: buttocks Pain Consistency: + constant Associated symptoms: + shortness of breath, + weakness and + other (blood in stool, drowsiness) Treatments prior to arrival: other (dialysis) The patient is a 78 year old male who presents to the Emergency Room with comp laints of dark black stool that started 2 days ago. His family also describes him as being weak, short of breath, and drowsy recently. The patient receives dialysis on Tuesdays, , and Saturdays. He reports receiving a full dose yesterday, and his hemoglobin was at 7.8. He has a history of low blood counts, and he could not recall his last transfusion date, but it was not within the last 3 months. Home Medications Home Medications Medication Instructions Recorded Confirmed Type pantoprazole 40 mg PO BID #60 tab 04/23/18 02/15/19 Rx amlodipine 10 mg tablet 10 mg PO HS #90 tab 11/12/18 02/15/19 Rx labetalol 100 mg tablet 400 mg PO BID #720 tab 12/08/18 02/15/19 Rx doxazosin 1 mg tablet 1 mg PO DAILY #90 tab 12/23/18 02/15/19 Rx tamsulosin 0.4 mg PO HS #90 cap 01/02/19 02/15/19 Rx docusate sodium 100 mg capsule 200 mg PO QAM #30 cap 01/19/19 02/15/19 Rx furosemide 80 mg tablet 80 mg PO AMPM #60 tab 01/19/19 02/15/19 Rx hydralazine 10 mg tablet 10 mg PO TIDM #90 tab 01/19/19 02/15/19 Rx insulin detemir (U- 100) 100 20 units SUBCUT HS #10 ml 01/19/19 02/15/19 Rx unit/mL subcutaneous solution insulin syringe U-100 with needle #10 ea 01/19/19 01/19/19 Rx 0.5 mL 30 gauge x 1/2" lisinopril 40 mg tablet 40 mg PO DAILY@1200 #30 tab 01/19/19 02/15/19 Rx rosuvastatin 20 mg tablet 20 mg PO QPM #90 tab 01/19/19 02/15/19 Rx gabapentin 100 mg capsule 200 mg PO HS #60 cap 02/04/19 02/15/19 Rx B complex with C 20-folic acid 1 mg PO DAILY 02/15/19 02/15/19 History [Renal Caps] levothyroxine 50 mcg PO UD 02/15/19 02/15/19 History levothyroxine 200 mcg PO DAILY 02/15/19 02/15/19 History sevelamer carbonate 1,600 mg PO TID 02/15/19 02/15/19 History Allergies Allergy/AdvReac Type Severity Reaction Status Date / Time tramadol AdvReac Severe disorented Verified 02/15/19 12:26 ,falling down metformin AdvReac Intermediate CONFUSION Verified 02/15/19 12:26 Past Med/Surg History Medical History AVF (arteriovenous fistula) Hypnic jerks Uncontrolled daytime somnolence Hyperlipidemia LDL goal <70 Personal history of noncompliance with medical treatment, presenting hazards to health Cellulitis of left lower extremity without foot Volume overload Mitral regurgitation Anxiety Arthritis BMI 40.0-44.9, adult Chronic diastolic congestive heart failure Chronic kidney disease, stage IV (severe) 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, with long-term current use of insulin Depression Diabetic peripheral neuropathy ESRD (end stage renal disease) on dialysis Hiatal hernia with GERD without esophagitis Hearing difficulty IgG monoclonal gammopathy Memory loss Nephrotic syndrome Obstructive sleep apnea Occlusion and stenosis of unspecified carotid artery Osteoporosis Peripheral vascular disease Pulmonary hypertension Vitamin D deficiency Anemia Gastric ulcer CAD (coronary artery disease) BPH (benign prostatic hyperplasia) Hypothyroidism Hypertension Asthma Secondary hyperparathyroidism of renal origin COPD (chronic obstructive pulmonary disease) Acute on chronic respiratory failure (Resolved) Altered mental status (Resolved) Chest pain (Resolved) Elevated troponin (Resolved) Encephalopathy (Resolved) Epistaxis (Resolved) Fluid overload (Resolved) Hypertensive urgency (Resolved) Hypoxia (Resolved) Abnormal colonoscopy Surgical History H/O cardiac catheterization H/O hemorrhoidectomy Hx of cholecystectomy No pertinent past surgical history Family History Unknown Myocardial infarction Diabetes Mother Diabetes Gallbladder disease Hypertension Breast cancer late 70s Father Diabetes Hypertension Brother Diabetes Hypertension Kidney disease Social History Preferred Language: German Communication Ability: Effective Document Review Specialist Required: No Beliefs That Will Affect Care: None marital status: Current Living Situation: Spouse current occupational status: employed current occupation: works part-time at [employer] Other Information That Helps Us Care for You: No Feels Safe at Home: Yes Safety Concerns: Feels Safe At This Time Smoking Status: Former smoker Tobacco Type: cigarettes ; Do You Dip or Chew Tobacco: No ; Number of Years Since Quit: 25 ; Second Hand Exposure: No ; Tobacco Cessation Education Requested by Patient: No Hx Alcohol Use: No Hx Substance Use: No Childhood Exposure to Second-Hand Smoke: No caffeine: Yes Dental Care, Regularly: Yes Physical Activity Frequency Comment: limited due physical condition Seatbelt Use: sometimes Review of Systems See HPI for pertinent positives & negatives. and A total of 10 systems reviewed and were otherwise negative Physical Exam Vital Signs Vital Signs - 24 hr 02/15/19 11:47 02/15/19 12:01 02/15/19 12:06 Temperature 36.7 C Temperature Source Oral Sepsis Recent Fever Within 48 Hours No Sepsis New/Unexplained Change in Mental Status No Sepsis Action Taken by Nursing No Action Required Pulse Rate 60 Pulse Rhythm Regular Pulse Strength Normal Respiratory Rate 20 Respiratory Effort / Characteristics Non-Labored Spontaneous Respiratory Depth Normal Respiratory Pattern Regular Blood Pressure 135/58 L Blood Pressure Mean 83 Blood Pressure Position Sitting Pulse Oximetry 91 88 L Oxygen Delivery Method Room Air Room Air Nasal Cannula Oxygen Flow Rate 2 02/15/19 13:54 02/15/19 14:10 02/15/19 14:25 Temperature 36.9 C 36.8 C 36.7 C Temperature Source Oral Oral Oral Sepsis Recent Fever Within 48 Hours Sepsis New/Unexplained Change in Mental Status Sepsis Action Taken by Nursing Pulse Rate 62 62 62 Pulse Rhythm Pulse Strength Respiratory Rate 20 18 20 Respiratory Effort / Characteristics Respiratory Depth Respiratory Pattern Blood Pressure 156/63 H 153/55 H 169/66 H Blood Pressure Mean 94 87 100 Blood Pressure Position Pulse Oximetry 96 96 Oxygen Delivery Method Oxygen Flow Rate 2 2 Physical Exam GENERAL: He is oriented to person, place, and time. He appears well-developed and well-nourished. He does not appear distressed. ____ HENT: Exam performed. - Head: Normocephalic and atraumatic. - Right Ear: External ear normal. No mastoid tenderness. - Left Ear: External ear normal. No mastoid tenderness. - Mouth/Throat: The oropharynx is clear and moist. No trismus in the jaw. No dental abscesses or uvula swelling. No oropharyngeal exudate or tonsillar abscesses. ____ EYES: Conjunctivae and EOM are normal. Pupils are equal, round, and reactive to light. Right eye exhibits no discharge. Left eye exhibits no discharge. No scleral icterus. ____ NECK: Normal range of motion. Neck supple. No JVD present. No spinous process tenderness present. No carotid bruit present. No rigidity. No tracheal deviation and normal range of motion present. No Brudzinski's sign and no Kernig's sign noted. ____ CV: Normal rate, regular rhythm, normal heart sounds and intact distal pulses. There is no peripheral edema. Palpable radial pulses bue. ____ PULM/CHEST: Effort normal and breath sounds normal. No respiratory distress. No stridor. He has no wheezes. He has no rales. - Chest Wall: He exhibits no tenderness. ____ ABD: The abdomen is soft. Bowel sounds are normal. He has no distension. No mass is present. There is no tenderness. There is no rebound, no guarding, no Ludwig's sign and no tenderness at McBurney's point. Rovsig negative RECTAL: Dark, black, tarry stool. Hemoccult positive. MUSC/SKEL: AV fistula with a palpable thrill in the left upper extremity. Normal range of motion. There is no peripheral edema, tenderness or deformity. LYMPH: No cervical adenopathy. ____ NEURO: He is alert and oriented to person, place, and time. He has normal strength. No cranial nerve deficit or sensory deficit. Coordination and gait normal. GCS eye subscore is 4. GCS verbal subscore is 5. GCS motor subscore is 6. cerbellar tests wnl. ____ SKIN: Skin is warm and dry. He is not diaphoretic. ____ PSYCH: He has a normal mood and affect. His behavior is normal. Judgment and thought content normal. ____ Course 1219: Past medical records reviewed. The patient was evaluated in room A12B. A complete history and physical exam was performed. Patient was found to be hypoxic on room air. He was admitted placed on 2 L nasal cannula which improved his oxygen saturation. 1310: The patients vital signs are stable, and he is on supplemental oxygen. His hemoglobin is 6.6, which is down from baseline of 8. His potassium levels are within normal limits. The patient will be transfused 2 units packed red blood cells and will be further evaluated in the hospital. It is thought that the patient's hypoxia is secondary to his anemia. I spoke to Raina Funes. [facility] hospitalist, who agreed to take over care of the patient. Administered Medications Discontinued Medications Pantoprazole Sodium 80 mg/ (Dextrose) 120 mls @ 480 mls/hr IV TODAY@1500 SHANTA Stop: 02/15/19 15:14 Last Admin: 02/15/19 15:22 Dose: 480 mls/hr Documented by: [id number] Medical Decision Making Medical Records Attestation: I reviewed the patient's medical records. Home Medications Current Medication List: was personally reviewed by me Laboratory Data Attestation: I reviewed the patient's lab results. Result diagrams: 02/15/19 12:24 02/15/19 12:22 Lab Results 02/15/19 02/15/19 02/15/19 Range/Units 12:22 12:22 12:22 WBC (4.8-10.8) K/uL RBC (4.7-6.1) M/uL Hgb (14.0-18.0) g/dL Hct (42-52) % MCV (80-100) fL MCH (25-34) pg MCHC (32-36) g/dL RDW Std Deviation (36.4-46.3) fL RDW Coeff of Jose C (11.5-14.5) % Plt Count (130-400) K/uL MPV (7.4-10.4) fL Immature Gran % (Auto) % Neut % (Auto) % Lymph % (Auto) % [place] % (Auto) % Eos % (Auto) % Baso % (Auto) % Immature Gran # (Auto) (0.00-0.02) K/uL Neut # (Auto) (1.4-6.5) K/uL Lymph # (Auto) (1.2-3.4) K/uL [place] # (Auto) (0.11-0.59) K/uL Eos # (Auto) (0-0.5) K/uL Baso # (Auto) (0-0.2) K/uL Giant Platelets Anisocytosis PT 12.4 H (9.0-12.0) Seconds INR 1.2 H (0.9-1.1) APTT 27.7 (21.0-31.0) Seconds PTT Ratio 1.0 Sodium 142 (136-145) mmol/L Potassium 3.5 (3.5-5.1) mmol/L Chloride 100 (98-107) mmol/L Carbon Dioxide 32 (21-32) mmol/L Anion Gap 10.0 (3-11) BUN 65 H (7-18) mg/dl Creatinine 5.79 H* (0.6-1.4) mg/dl Est Cr Clr Drug Dosing Not Reportable Est GFR ( Amer) 10.1 Est GFR (Non-Af Amer) 8.7 BUN/Creatinine Ratio 11.2 (10-20) Glucose 141 H (70-99) mg/dl Calcium 8.6 (8.5-10.1) mg/dl Blood Type B Positive Antibody Screen NEGATIVE Crossmatch See Detail 02/15/19 Range/Units 12:24 WBC 2.59 L (4.8-10.8) K/uL RBC 2.41 L (4.7-6.1) M/uL Hgb 6.6 L* (14.0-18.0) g/dL Hct 21.4 L (42-52) % MCV 88.8 (80-100) fL MCH 27.4 (25-34) pg MCHC 30.8 L (32-36) g/dL RDW Std Deviation 65.4 H (36.4-46.3) fL RDW Coeff of Jose C 19.8 H (11.5-14.5) % Plt Count 143 (130-400) K/uL MPV 10.6 H (7.4-10.4) fL Immature Gran % (Auto) 0.0 % Neut % (Auto) 63.6 % Lymph % (Auto) 16.6 % Bart[place] % (Auto) 12.4 % Eos % (Auto) 6.2 % Baso % (Auto) 1.2 % Immature Gran # (Auto) 0.00 (0.00-0.02) K/uL Neut # (Auto) 1.65 (1.4-6.5) K/uL Lymph # (Auto) 0.43 L (1.2-3.4) K/uL [place] # (Auto) 0.32 (0.11-0.59) K/uL Eos # (Auto) 0.16 (0-0.5) K/uL Baso # (Auto) 0.03 (0-0.2) K/uL Giant Platelets 1+ Anisocytosis Present PT (9.0-12.0) Seconds INR (0.9-1.1) APTT (21.0-31.0) Seconds PTT Ratio Sodium (136-145) mmol/L Potassium (3.5-5.1) mmol/L Chloride (98-107) mmol/L Carbon Dioxide (21-32) mmol/L Anion Gap (3-11) BUN (7-18) mg/dl Creatinine (0.6-1.4) mg/dl Est Cr Clr Drug Dosing Est GFR ( Amer) Est GFR (Non-Af Amer) BUN/Creatinine Ratio (10-20) Glucose (70-99) mg/dl Calcium (8.5-10.1) mg/dl Blood Type Antibody Screen Crossmatch ECG Data Attestation: I personally reviewed and interpreted this ECG as follows: Indication: other (arrythmia) Rate (beats per minute): 60 Rhythm: sinus rhythm Findings: + other (WV 204. QRS 162. QTC 514. ), + 1st degree AV block, + RBBB and + T-wave inversion (in lead 2, 3, AVF, and V2-V6); no ST depression and no ST elevation Blood Pressure Blood Pressure Findings: Low blood pressure Blood Pressure Disposition: further management by hospitalist BJ Narrative 1219: Past medical records reviewed. The patient was evaluated in room A12B. A complete history and physical exam was performed. Patient was found to be hypoxic on room air. He was admitted placed on 2 L nasal cannula which improved his oxygen saturation. 1310: The patients vital signs are stable, and he is on supplemental oxygen. His hemoglobin is 6.6, which is down from baseline of 8. His potassium levels are within normal limits. The patient will be transfused 2 units packed red blood cells and will be further evaluated in the hospital. It is thought that the patient's hypoxia is secondary to his anemia. I spoke to Raina Funes. [facility] hospitalist, who agreed to take over care of the patient. Impression & Plan GI bleed, Anemia, Hypoxia Critical Care Time Critical Care Time: Yes Total Critical Care Time: 76 I have personally spent 76 minutes of critical care time in the direct management of this patient. This includes bedside care, interpretation of diagnostic studies, and testing, discussion with consultants, patient, and family members, and other required patient management activities. This 76 minutes is in excess of all separately billable procedures. Discharge Plan Visit Data Chief Complaint: Rectal Bleed Stated Complaint: RECTAL BLEEDING,LOW BLOOD COUNT ED Provider: Jose Manuel Gil Discharge Problem: GI bleed, Anemia, Hypoxia Discharge Problem: GI bleed Qualifiers: GI bleed type/associated pathology: unspecified gastrointestinal hemorrhage type Qualified Code(s): K92.2 - Gastrointestinal hemorrhage, unspecified Anemia Qualifiers: Anemia type: unspecified type Qualified Code(s): D64.9 - Anemia, unspecified The scribe's documentation has been prepared under my direction and personally reviewed by me in its entirety. I confirm that the note above accurately reflects all work, treatment, procedures, and medical decision making performed by me.
[2019-02-15] MEDS ORDERED: MAGNESIUM HYDROXIDE SUSP 30 ML UDC PO PRN (16:11)
[2019-02-15] MEDS ORDERED: ACETAMINOPHEN 325 MG TAB PO PRN (16:11)
[2019-02-15] MEDS ORDERED: GLUCOSE 40% GEL 15 GM TUBE PO PRN (16:11)
[2019-02-15] MEDS ORDERED: CARBOHYDRATES FOR HYPOGLYCEMIA PO PRN (16:11)
[2019-02-15] MEDS ORDERED: GLUCOSE 10 TABS/TUBE PO PRN (16:11)
[2019-02-15] MEDS ORDERED: DEXTROSE 50% 50 ML SYRINGE IV PRN (16:11)
[2019-02-15] MEDS ORDERED: GLUCAGON FOR INJ 1 MG VIAL SQ PRN (16:11)
[2019-02-15] MEDS ORDERED: ONDANSETRON INJ 2 MG/ML 2 ML VIAL IV PRN (16:11)
[2019-02-15] MEDS: PANTOprazole 40 MG in DEXTROSE 5% 100 ML IV SCH ×2 (16:12→20:46)
[2019-02-15] MEDS ORDERED: FUROSEMIDE 20 MG in SYRINGE 0 ML IV ONE (16:40)
[2019-02-15] MEDS: HydrALAZINE 10 MG TAB PO SCH (17:48)
[2019-02-15] MEDS: NSS + 20MEQ KCL 20 MEQ/1,000 ML BAG IV SCH (17:50)
[2019-02-15] MEDS: INSULIN ASPART 100 UNITS/ML 3 ML PEN SC SCH (17:59)
[2019-02-15] MEDS: TAMSULOSIN HCL 0.4 MG CAP PO SCH (20:47)
[2019-02-15] MEDS: FUROSEMIDE 80 MG TAB PO SCH (20:47)
[2019-02-15] MEDS: cephALEXin 500 MG CAP PO SCH (20:47)
[2019-02-15] MEDS: ROSUVASTATIN CALCIUM 20 MG TAB PO SCH (20:47)
[2019-02-15] MEDS: GABAPENTIN 100 MG CAP PO SCH (20:48)
[2019-02-15] MEDS: SEVELAMER HCL 800 MG TABLET PO SCH (20:49)
[2019-02-15] MEDS: AMLODIPINE BESYLATE 5 MG TAB PO SCH (20:49)
[2019-02-15] MEDS: LABETALOL HCL 100 MG TAB PO SCH (20:49)
[2019-02-15 21:45] LABS: Hematocrit (blood only) 23.6 % (42-52); Hemoglobin 7.5 g/dL (14.0-18.0)
[2019-02-16] MEDS: INSULIN ASPART 100 UNITS/ML 3 ML PEN SC SCH ×4 (00:06→19:18)
[2019-02-16] MEDS: PANTOprazole 40 MG in DEXTROSE 5% 100 ML IV SCH ×5 (01:34→22:37)
[2019-02-16] MEDS: LEVOTHYROXINE SODIUM 200 MCG TABLET PO SCH (06:05)
[2019-02-16] MEDS: LEVOTHYROXINE SODIUM 50 MCG TABLET PO SCH (06:05)
[2019-02-16 06:24] LABS: Basophils # (auto) 0.03 K/uL (0-0.2); Eosinophils # (auto) 0.19 K/uL (0-0.5); Eosinophils % (auto) 6.3 %; Hematocrit (blood only) 24.7 % (42-52); Hemoglobin 7.7 g/dL (14.0-18.0); Immature Granulocytes # (auto) 0.01 K/uL (0.00-0.02); Immature Granulocytes % (auto) 0.3 %; Lymphocytes # (auto) 0.54 K/uL (1.2-3.4); Lymphocytes % (auto) 17.8 %; Mean Corpuscular Hemoglobin 27.7 pg (25-34); Mean Corpuscular Hgb Conc 31.2 g/dL (32-36); Mean Corpuscular Volume 88.8 fL (80-100); Mean Platelet Volume 10.7 fL (7.4-10.4); Monocytes # (auto) 0.35 K/uL (0.11-0.59); Monocytes % (auto) 11.5 %; Neutrophils # (auto) 1.92 K/uL (1.4-6.5); Neutrophils % (auto) 63.1 %; Platelet Count 140 K/uL (130-400); RDW Coefficient of Variation 18.8 % (11.5-14.5); RDW Standard Deviation 60.8 fL (36.4-46.3); Red Blood Count 2.78 M/uL (4.7-6.1); White Blood Count 3.04 K/uL (4.8-10.8)
[2019-02-16 06:53] LABS: Anisocytosis Present
[2019-02-16 07:10] LABS: BUN Creatinine Ratio 10.4 (10-20); Calcium 8.8 mg/dl (8.5-10.1); Creatinine Clr Calc Pharmacy 10.7 ml/min; Est GFR (African American) 8.4; Est GFR (Non-African American) 7.2; Potassium 3.4 mmol/L (3.5-5.1)
[2019-02-16] MEDS: SEVELAMER HCL 800 MG TABLET PO SCH ×3 (09:00→21:25)
[2019-02-16] MEDS: NEPHROCAPS PO SCH (09:00)
[2019-02-16] MEDS: HydrALAZINE 10 MG TAB PO SCH ×3 (09:01→17:39)
[2019-02-16] MEDS: LABETALOL HCL 100 MG TAB PO SCH ×2 (09:02→21:22)
[2019-02-16] MEDS: cephALEXin 500 MG CAP PO SCH ×2 (09:02→21:22)
[2019-02-16] MEDS: DOXAZOSIN MESYLATE 1 MG TAB PO SCH (09:03)
[2019-02-16] MEDS: FUROSEMIDE 80 MG TAB PO SCH ×2 (09:03→21:23)
[2019-02-16] MEDS: DOCUSATE SODIUM 100 MG CAP PO SCH (09:03)
--- NOTE | 2019-02-16 11:58 | Nephrology Consultation ---
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 Although has significant history of noncompliance last 1 month he has been regular dialysis and last dialysis treatment was last Saturday. Currently electrolyte, volume status acceptable. Admitted with lower GI bleeding with hemoglobin 6.9, received 2 units of PRBC and hemoglobin improved to 7.7 and currently pending GI evaluation with history of multiple hospital admission for GI bleeding, prior EGD and colonoscopy.. --plan for dialysis tomorrow as his regular schedule --recommend 2 more units of blood transfusion for hemoglobin staying below 8 --Epogen with dialysis tomorrow --start on phosphate binder and renal vitamin once patient is allowed to take orally --recommend wound care consultation while patient inpatient for bilateral lower extremity superficial ulceration Will follow Thank you for allowing me to participate in your patient's care. It was a pleasure to see Augie (2) GI bleed: (3) Anemia: (4) Hypertension: (5) Secondary hyperparathyroidism of renal origin: History of Present Illness Reason for Consultation: End-stage renal disease, on hemodialysis, admitted with anemia secondary to GI bleeding. Attending Physician: Prashanth Rainey MD History of Present Illness Darnell Mcintyre is a 78-year-old gentlemen with past medical history significant for hypertension, diabetes, end-stage renal disease on hemodialysis, anemia, GI bleeding admitted to the hospital with acute drop in hemoglobin secondary to active GI bleeding. Nephrology consult was requested to manage hemodialysis while inpatient. Electronic medical records including labs and imaging were reviewed in detail during patient's visit. Do not presented to emergency room with 2 days history of dark stool, feeling fatigued and tired associated with shortness of breath. On admission he was found to have hemoglobin of 6.8. Recently he was noted to have drop in hem oglobin to 8.1 at the dialysis unit and he was already scheduled for blood transfusion however did not receive that yet. Evaluation in the ER showed heme- positive stool, received 2 units of blood transfusion with that hemoglobin improved to 7.7 this morning. Has history of recurrent GI bleeding requiring multiple hospital admission, blood transfusion before. Last EGD was earlier this year. Volume status acceptable, other electrolyte stable. Has been NPO pending GI evaluation. Has end-stage renal disease secondary to diabetic and hypertensive nephropathy, has been on dialysis Saturday, , Saturday. Over last to 3 years he had been extremely noncompliant with dialysis treatment and repeatedly missing dialysis for weeks and then ended up coming to the emergency room. He has been going for dialysis regularly for last 1 month. When he was seen of for monthly visit last week he was found to have increased lower extremity edema and lower extremity superficial ulceration. He was referred to wound Care Center, diuretics dose was increased to Lasix 80 mg twice a day and started on Keflex 500 b.i.d. for 7 days. On admission he was continued on Keflex. Lower extremity edema seem to have somewhat improved. Currently continues to feel tired and concerned about his blood sugar as he has been NPO but denies any further shortness of breath or chest pain. Had 2 bowel movements since he presented to the hospital and did not notice black stool. Allergies Allergy/AdvReac Type Severity Reaction Status Date / Time tramadol AdvReac Severe disorented Verified 02/15/19 12:26 ,falling down metformin AdvReac Intermediate CONFUSION Verified 02/15/19 12:26 Home Medications Home Medications Medication Instructions Recorded Confirmed Type pantoprazole 40 mg PO BID #60 tab 04/23/18 02/15/19 Rx amlodipine 10 mg tablet 10 mg PO HS #90 tab 11/12/18 02/15/19 Rx labetalol 100 mg tablet 400 mg PO BID #720 tab 12/08/18 02/15/19 Rx doxazosin 1 mg tablet 1 mg PO DAILY #90 tab 12/23/18 02/15/19 Rx tamsulosin 0.4 mg PO HS #90 cap 01/02/19 02/15/19 Rx docusate sodium 100 mg capsule 200 mg PO QAM #30 cap 01/19/19 02/15/19 Rx furosemide 80 mg tablet 80 mg PO AMPM #60 tab 01/19/19 02/15/19 Rx hydralazine 10 mg tablet 10 mg PO TIDM #90 tab 01/19/19 02/15/19 Rx insulin detemir (U- 100) 100 20 units SUBCUT HS #10 ml 01/19/19 02/15/19 Rx unit/mL subcutaneous solution insulin syringe U-100 with needle #10 ea 01/19/19 01/19/19 Rx 0.5 mL 30 gauge x 1/2" lisinopril 40 mg tablet 40 mg PO DAILY@1200 #30 tab 01/19/19 02/15/19 Rx rosuvastatin 20 mg tablet 20 mg PO QPM #90 tab 01/19/19 02/15/19 Rx gabapentin 100 mg capsule 200 mg PO HS #60 cap 02/04/19 02/15/19 Rx B complex with C 20-folic acid 1 mg PO DAILY 02/15/19 02/15/19 History [Renal Caps] levothyroxine 50 mcg PO UD 02/15/19 02/15/19 History levothyroxine 200 mcg PO DAILY 02/15/19 02/15/19 History sevelamer carbonate 1,600 mg PO TID 02/15/19 02/15/19 History Patient History Medical History AVF (arteriovenous fistula) Hypnic jerks Uncontrolled daytime somnolence Hyperlipidemia LDL goal <70 Personal history of noncompliance with medical treatment, presenting hazards to health Cellulitis of left lower extremity without foot Volume overload Mitral regurgitation Anxiety Arthritis BMI 40.0-44.9, adult Chronic diastolic congestive heart failure Chronic kidney disease, stage IV (severe) 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, with long-term current use of insulin Depression Diabetic peripheral neuropathy ESRD (end stage renal disease) on dialysis Hiatal hernia with GERD without esophagitis Hearing difficulty IgG monoclonal gammopathy Memory loss Nephrotic syndrome Obstructive sleep apnea Occlusion and stenosis of unspecified carotid artery Osteoporosis Peripheral vascular disease Pulmonary hypertension Vitamin D deficiency Anemia Gastric ulcer CAD (coronary artery disease) BPH (benign prostatic hyperplasia) Hypothyroidism Hypertension Asthma Secondary hyperparathyroidism of renal origin COPD (chronic obstructive pulmonary disease) Acute on chronic respiratory failure (Resolved) Altered mental status (Resolved) Chest pain (Resolved) Elevated troponin (Resolved) Encephalopathy (Resolved) Epistaxis (Resolved) Fluid overload (Resolved) Hypertensive urgency (Resolved) Hypoxia (Resolved) Abnormal colonoscopy Surgical History H/O cardiac catheterization H/O hemorrhoidectomy Hx of cholecystectomy No pertinent past surgical history Family History Unknown Myocardial infarction Diabetes Mother Diabetes Gallbladder disease Hypertension Breast cancer late 70s Father Diabetes Hypertension Brother Diabetes Hypertension Kidney disease Social History Preferred Language: Citizen Of [place] Communication Ability: Effective 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 Beliefs That Will Affect Care: None marital status: Current Living Situation: Spouse current occupational status: employed 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 Feels Safe at Home: Yes Smoking Status: Former smoker Tobacco Type: cigarettes ; Second Hand Exposure: No ; Hx Alcohol Use: No Hx Substance Use: No Childhood Exposure to Second-Hand Smoke: No caffeine: Yes Dental Care, Regularly: Yes Physical Activity Frequency Comment: limited due physical condition Seatbelt Use: sometimes Review of Systems Review of Systems: All systems reviewed & are unremarkable except as noted in HPI & below Physical Exam Constitutional: WD/WN, vitals as above + ill appearing and + lethargic; no acute distress pale Eyes: PERRL, conjunctivae normal, anicteric sclerae ENMT: external ear and nose normal, oropharynx normal Ears: no hearing impairment Neck: trachea midline Respiratory: normal respiratory effort, lungs clear to auscultation no cough Auscultation: no crackles, no rales and no wheezes Cardiovascular: Rate/Rhythm: regular rate and regular rhythm Heart Sounds: normal S1 and normal S2 Extremities: + edema (1+ bilateral lower extremity edema) Gastrointestinal (Abdomen): normal bowel sounds, soft, nontender, no hepatosplenomegaly Percussion/Palpation: abdomen nontender, no guarding and abdomen not rigid Musculoskeletal: Extremities: extremities normal to inspection Gait: normal gait Skin: Bilateral lower extremity superficial skin ulceration with mild erythema. Neurologic: moves all extremities and awake Psychiatric: A+Ox3, euthymic affect Results & Data Vital Signs (Past 12 Hours) Vital Signs Temp Pulse Pulse Resp BP Pulse Ox 02/16/19 11:05 36.5 C 54 L 20 150/65 H 93 02/16/19 07:51 36.6 C 59 L 18 171/66 H 97 02/16/19 07:21 57 L 02/16/19 04:00 36.4 C L 59 L 18 160/69 H 93 02/16/19 00:00 36.5 C 68 18 136/57 L 92 PG Care Time/CCT Total # of Minutes Spent Total Time Spent with Patient: Total time spent is greater than 50% in coordination of care (as documented) at patient's floor/unit and/or counseling patient: (1) GI bleed GI bleed type/associated pathology: unspecified gastrointestinal hemorrhage type Qualified Code(s): K92.2 - Gastrointestinal hemorrhage, unspecified (2) Anemia Anemia type: unspecified type Qualified Code(s): D64.9 - Anemia, unspecified (3) Hypertension Hypertension type: essential hypertension Qualified Code(s): I10 - Essential (primary) hypertension
[2019-02-16] MEDS: NSS + 20MEQ KCL 20 MEQ/1,000 ML BAG IV SCH (12:36)
[2019-02-16] MEDS: lisinopriL 40 MG TAB PO SCH (12:36)
--- NOTE | 2019-02-16 15:18 | Anesthesiology Consultation ---
Date of Service February 16, 2019 Assessment & Plan (1) Encounter for pre-operative examination: Chart Review Chart Review: Acceptable Risk for Surgery History Surgery Operation Date: 02/16/19 10:10 Proposed Procedures p Esophagogastroduodenoscopy Dr Christopher White Height/Weight Height: 6 ft 1.5 in Weight: 97.1 kg Allergies Allergy/AdvReac Type Severity Reaction Status Date / Time tramadol AdvReac Severe disorented Verified 02/15/19 12:26 ,falling down metformin AdvReac Intermediate CONFUSION Verified 02/15/19 12:26 Medications Home Medications Medication Instructions Recorded Confirmed Last Taken pantoprazole 40 mg PO BID #60 tab 04/23/18 02/15/19 02/15/19 amlodipine 10 mg tablet 10 mg PO HS #90 tab 11/12/18 02/15/19 02/15/19 labetalol 100 mg tablet 400 mg PO BID #720 tab 12/08/18 02/15/19 02/15/19 doxazosin 1 mg tablet 1 mg PO DAILY #90 tab 12/23/18 02/15/19 02/15/19 tamsulosin 0.4 mg PO HS #90 cap 01/02/19 02/15/19 02/14/19 docusate sodium 100 mg capsule 200 mg PO QAM #30 cap 01/19/19 02/15/19 02/15/19 furosemide 80 mg tablet 80 mg PO AMPM #60 tab 01/19/19 02/15/19 02/15/19 hydralazine 10 mg tablet 10 mg PO TIDM #90 tab 01/19/19 02/15/19 02/15/19 insulin detemir (U- 100) 100 20 units SUBCUT HS #10 ml 01/19/19 02/15/19 02/14/19 unit/mL subcutaneous solution insulin syringe U-100 with needle #10 ea 01/19/19 01/19/19 Unknown 0.5 mL 30 gauge x 1/2" lisinopril 40 mg tablet 40 mg PO DAILY@1200 #30 tab 01/19/19 02/15/19 02/15/19 rosuvastatin 20 mg tablet 20 mg PO QPM #90 tab 01/19/19 02/15/19 02/14/19 gabapentin 100 mg capsule 200 mg PO HS #60 cap 02/04/19 02/15/19 02/15/19 B complex with C 20-folic acid 1 mg PO DAILY 02/15/19 02/15/19 02/15/19 [Renal Caps] levothyroxine 50 mcg PO UD 02/15/19 02/15/19 02/15/19 levothyroxine 200 mcg PO DAILY 02/15/19 02/15/19 02/15/19 sevelamer carbonate 1,600 mg PO TID 02/15/19 02/15/19 02/15/19 Active Medications Generic Name Dose Route Start Last Admin Trade Name Arieq PRN Reason Stop Dose Admin Amlodipine Besylate 10 mg 02/15/19 21:00 02/15/19 20:49 Norvasc PO 03/17/19 20:59 10 mg HS SHANTA Administration Cephalexin HCl 500 mg 02/15/19 21:00 02/16/19 09:02 Keflex PO 02/25/19 20:59 500 mg BID SHANAT Administration Docusate Sodium 200 mg 02/16/19 09:00 02/16/19 09:03 Colace PO 03/18/19 08:59 200 mg QAM SHANTA Administration Doxazosin Mesylate 1 mg 02/16/19 09:00 02/16/19 09:03 Cardura PO 03/18/19 08:59 1 mg DAILY SHANTA Administration Furosemide 80 mg 02/15/19 21:00 02/16/19 09:03 Lasix PO 03/17/19 20:59 80 mg BID SHANTA Administration Gabapentin 200 mg 02/15/19 21:00 02/15/19 20:48 Neurontin PO 03/17/19 20:59 200 mg HS SHANTA Administration Hydralazine HCl 10 mg 02/15/19 17:00 02/16/19 12:37 Apresoline PO 03/17/19 16:59 10 mg TIDM SHANTA Administration Pantoprazole Sodium 40 mg/ 100 mls @ 20 mls/hr 02/15/19 15:30 02/16/19 11:00 Dextrose IV 03/17/19 15:29 20 mls/hr Q5H SHANTA Administration Potassium Chloride/Sodium Chloride 20 meq in 1,000 mls @ 50 mls/hr 02/15/19 16 :40 02/16/19 12:36 Normal Saline W/20 Meq Kcl IV 03/17/19 16:39 50 mls/hr .Q20H SHANTA Administration Insulin Aspart 0 units 02/15/19 18:00 02/16/19 12:41 Novolog Flexpen SC 03/17/19 17:59 Not Given Q6 SHANTA Labetalol HCl 400 mg 02/15/19 21:00 02/16/19 09:02 Normodyne PO 03/17/19 20:59 400 mg BID SHANTA Administration Levothyroxine Sodium 50 mcg 02/16/19 06:30 02/16/19 06:05 Synthroid PO 03/18/19 06:29 50 mcg DAILYBB SHANTA Administration Levothyroxine Sodium 200 mcg 02/16/19 06:30 02/16/19 06:05 Synthroid PO 03/18/19 06:29 200 mcg DAILYBB SHANTA Administration Lisinopril 40 mg 02/16/19 12:00 02/16/19 12:36 Zestril PO 03/18/19 11:59 40 mg DAILY@1200 SHANTA Administration Rosuvastatin Calcium 20 mg 02/15/19 21:00 02/15/19 20:47 Crestor PO 03/17/19 20:59 20 mg QPM SHANTA Administration Sevelamer HCl 1,600 mg 02/15/19 21:00 02/16/19 14:29 Renagel PO 03/17/19 20:59 Not Given TID SHANTA Tamsulosin HCl 0.4 mg 02/15/19 21:00 02/15/19 20:47 Flomax PO 03/17/19 20:59 0.4 mg HS SHANTA Administration Vitamin B Complex/Folic Acid 1 cap 02/16/19 09:00 02/16/19 09:00 Nephrocaps PO 03/18/19 08:59 1 cap DAILY SHANTA Administration Past Medical History Medical History AVF (arteriovenous fistula) Hypnic jerks Uncontrolled daytime somnolence Hyperlipidemia LDL goal <70 Personal history of noncompliance with medical treatment, presenting hazards to health Cellulitis of left lower extremity without foot Volume overload Mitral regurgitation Anxiety Arthritis BMI 40.0-44.9, adult Chronic diastolic congestive heart failure Chronic kidney disease, stage IV (severe) 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, with long-term current use of insulin Depression Diabetic peripheral neuropathy ESRD (end stage renal disease) on dialysis Hiatal hernia with GERD without esophagitis Hearing difficulty IgG monoclonal gammopathy Memory loss Nephrotic syndrome Obstructive sleep apnea Occlusion and stenosis of unspecified carotid artery Osteoporosis Peripheral vascular disease Pulmonary hypertension Vitamin D deficiency Anemia Gastric ulcer CAD (coronary artery disease) BPH (benign prostatic hyperplasia) Hypothyroidism Hypertension Asthma Secondary hyperparathyroidism of renal origin COPD (chronic obstructive pulmonary disease) Acute on chronic respiratory failure (Resolved) Altered mental status (Resolved) Chest pain (Resolved) Elevated troponin (Resolved) Encephalopathy (Resolved) Epistaxis (Resolved) Fluid overload (Resolved) Hypertensive urgency (Resolved) Hypoxia (Resolved) Abnormal colonoscopy Past Family History Family History Unknown Myocardial infarction Diabetes Mother Diabetes Gallbladder disease Hypertension Breast cancer late 70s Father Diabetes Hypertension Brother Diabetes Hypertension Kidney disease Past Surgical History Surgical History H/O cardiac catheterization H/O hemorrhoidectomy Hx of cholecystectomy No pertinent past surgical history Social History Smoking Status: Former smoker tobacco type: cigarettes Do You Dip or Chew Tobacco: No Hx Alcohol Use: No Hx Substance Use: No substance use type: does not use Physical Exam Vital Signs Last Vital Signs Temp 36.5 C 02/16/19 11:05 Pulse 54 L 02/16/19 11:05 Resp 20 02/16/19 11:05 BP 150/65 H 02/16/19 11:05 Pulse Ox 93 02/16/19 11:05 Testing Laboratory Results 02/16/19 05:46 02/16/19 05:46 PT 12.4 Seconds (9.0-12.0) H 02/15/19 12:22 INR 1.2 (0.9-1.1) H 02/15/19 12:22 APTT 27.7 Seconds (21.0-31.0) 02/15/19 12:22 Blood Type B Positive 02/15/19 12:22 Antibody Screen NEGATIVE 02/15/19 12:22 02/16/19 02/16/19 12:33 06:03 POC Glucose 157 H 147 H Electrocardiogram Date: 02/15/19 Findings: + NSR @ (60) and + RBBB
--- NOTE | 2019-02-16 15:34 | History & Physical Report ---
Date of Service February 16, 2019 History of Present Illness Chief Complaint: melena, anemia Primary Care Provider: Mahsa Wang DO For EGD Allergies Allergy/AdvReac Type Severity Reaction Status Date / Time tramadol AdvReac Severe disorented Verified 02/15/19 12:26 ,falling down metformin AdvReac Intermediate CONFUSION Verified 02/15/19 12:26 Home Medications Home Medications Medication Instructions Recorded Confirmed Type pantoprazole 40 mg PO BID #60 tab 04/23/18 02/15/19 Rx amlodipine 10 mg tablet 10 mg PO HS #90 tab 11/12/18 02/15/19 Rx labetalol 100 mg tablet 400 mg PO BID #720 tab 12/08/18 02/15/19 Rx doxazosin 1 mg tablet 1 mg PO DAILY #90 tab 12/23/18 02/15/19 Rx tamsulosin 0.4 mg PO HS #90 cap 01/02/19 02/15/19 Rx docusate sodium 100 mg capsule 200 mg PO QAM #30 cap 01/19/19 02/15/19 Rx furosemide 80 mg tablet 80 mg PO AMPM #60 tab 01/19/19 02/15/19 Rx hydralazine 10 mg tablet 10 mg PO TIDM #90 tab 01/19/19 02/15/19 Rx insulin detemir (U- 100) 100 20 units SUBCUT HS #10 ml 01/19/19 02/15/19 Rx unit/mL subcutaneous solution insulin syringe U-100 with needle #10 ea 01/19/19 01/19/19 Rx 0.5 mL 30 gauge x 1/2" lisinopril 40 mg tablet 40 mg PO DAILY@1200 #30 tab 01/19/19 02/15/19 Rx rosuvastatin 20 mg tablet 20 mg PO QPM #90 tab 01/19/19 02/15/19 Rx gabapentin 100 mg capsule 200 mg PO HS #60 cap 02/04/19 02/15/19 Rx B complex with C 20-folic acid 1 mg PO DAILY 02/15/19 02/15/19 History [Renal Caps] levothyroxine 50 mcg PO UD 02/15/19 02/15/19 History levothyroxine 200 mcg PO DAILY 02/15/19 02/15/19 History sevelamer carbonate 1,600 mg PO TID 02/15/19 02/15/19 History Past Med/Surg History Medical History AVF (arteriovenous fistula) Hypnic jerks Uncontrolled daytime somnolence Hyperlipidemia LDL goal <70 Personal history of noncompliance with medical treatment, presenting hazards to health Cellulitis of left lower extremity without foot Volume overload Mitral regurgitation Anxiety Arthritis BMI 40.0-44.9, adult Chronic diastolic congestive heart failure Chronic kidney disease, stage IV (severe) 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, with long-term current use of insulin Depression Diabetic peripheral neuropathy ESRD (end stage renal disease) on dialysis Hiatal hernia with GERD without esophagitis Hearing difficulty IgG monoclonal gammopathy Memory loss Nephrotic syndrome Obstructive sleep apnea Occlusion and stenosis of unspecified carotid artery Osteoporosis Peripheral vascular disease Pulmonary hypertension Vitamin D deficiency Anemia Gastric ulcer CAD (coronary artery disease) BPH (benign prostatic hyperplasia) Hypothyroidism Hypertension Asthma Secondary hyperparathyroidism of renal origin COPD (chronic obstructive pulmonary disease) Acute on chronic respiratory failure (Resolved) Altered mental status (Resolved) Chest pain (Resolved) Elevated troponin (Resolved) Encephalopathy (Resolved) Epistaxis (Resolved) Fluid overload (Resolved) Hypertensive urgency (Resolved) Hypoxia (Resolved) Abnormal colonoscopy Surgical History H/O cardiac catheterization H/O hemorrhoidectomy Hx of cholecystectomy No pertinent past surgical history Family History Unknown Myocardial infarction Diabetes Mother Diabetes Gallbladder disease Hypertension Breast cancer late 70s Father Diabetes Hypertension Brother Diabetes Hypertension Kidney disease Social History Preferred Language: Lithuanian Communication Ability: Effective 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 Required: No Beliefs That Will Affect Care: None marital status: Current Living Situation: Spouse current occupational status: employed current occupation: works part-time at [employer] Feels Safe at Home: Yes Smoking Status: Former smoker Tobacco Type: cigarettes ; Number of Years Since Quit: 25 ; Second Hand Exposure: No ; Hx Alcohol Use: No Hx Substance Use: No Childhood Exposure to Second-Hand Smoke: No caffeine: Yes Dental Care, Regularly: Yes Physical Activity Frequency Comment: limited due physical condition Seatbelt Use: sometimes Physical Exam Constitutional: + ill appearing Respiratory: normal respiratory effort Cardiovascular: Rate/Rhythm: regular rate and regular rhythm Gastrointestinal (Abdomen): Percussion/Palpation: abdomen soft Results & Data Vital Signs (Past 12 Hours) Vital Signs Temp Pulse Pulse Resp BP Pulse Ox 02/16/19 15:31 36.4 C L 58 L 18 171/59 H 91 02/16/19 11:05 36.5 C 54 L 20 150/65 H 93 02/16/19 07:51 36.6 C 59 L 18 171/66 H 97 02/16/19 07:21 57 L 02/16/19 04:00 36.4 C L 59 L 18 160/69 H 93 Code Status & VTE Plan VTE Prophylaxis Plan VTE Prophylaxis will be ordered: Yes
[2019-02-16] MEDS ORDERED: SODIUM CHLORIDE 0.9% 1000ML 1,000 ML IV SCH (15:45)
[2019-02-16] MEDS ORDERED: LIDOCAINE HCL 2% 2 ML VIAL/AMP(20MG/ML) INFIL ONE ×2 (16:17→16:22)
[2019-02-16] MEDS ORDERED: PROPOFOL IV EMULSION 10 MG/ML 20 ML VIAL IV ONE (16:17)
--- NOTE | 2019-02-16 16:53 | GI REPORT ---
Patient Name: Darnell Mcintyre Procedure Date: 02/16/2019 4:20 PM Date of : 1940 Admit Type: Inpatient Age: 78 Gender: Male Attending MD: Mando White MD Procedure: Upper GI endoscopy Providers: Mando White MD Referring MD: Prashanth Rainey Md Indications: Iron deficiency anemia secondary to chronic blood loss, Melena Medicines: Propofol total dose 160 mg IV, Lidocaine 60 mg IV Complications: No immediate complications. Estimated Blood Loss: Estimated blood loss was minimal. Procedure: Pre-Anesthesia Assessment: - Prior to the procedure, a History and Physical was performed, and patient medications, allergies and sensitivities were reviewed. The patient's tolerance of previous anesthesia was reviewed. - The risks and benefits of the procedure and the sedation options and risks were discussed with the patient. All questions were answered and informed consent was obtained. After obtaining informed consent, the endoscope was passed under direct vision. Throughout the procedure, the patient's blood pressure, pulse, and oxygen saturations were monitored continuously. The Endoscope was introduced through the mouth, and advanced to the second part of duodenum. The upper GI endoscopy was accomplished without difficulty. The patient tolerated the procedure well. Findings: The Z-line was regular and was found 41 cm from the incisors. The examined esophagus was normal. Multiple 3 mm semi-sessile polyps with no bleeding and no stigmata of recent bleeding were found in the gastric body. Multiple stigmata of recent bleeding angioectasias were found in the gastric antrum. Coagulation for bleeding prevention using argon plasma at 0.3 liters/minute and 20 whitley was successful. Estimated blood loss was minimal. A large non-bleeding diverticulum was found in the second portion of the duodenum. Impression: - Z-line regular, 41 cm from the incisors. - Normal esophagus. - Multiple gastric polyps. - Multiple recently bleeding angioectasias in the stomach. Treated with argon plasma coagulation (APC). - Non-bleeding duodenal diverticulum. - No specimens collected. Recommendation: - Return patient to hospital [facility] for ongoing care. Mando White M.D. Mando White MD 02/16/2019 4:53:06 PM This report has been signed electronically. Note Initiated On: 02/16/2019 4:20 PM Number of Addenda: 0 I attest to the content of the Intraoperative Record and orders documented therein, exceptions below {[id number]}
--- NOTE | 2019-02-16 17:17 | Anesthesiology Progress Note ---
Date of Service February 16, 2019 Anesthesia Post Procedure Vital Signs Vital Signs: Temp Pulse Pulse Resp BP BP Pulse Ox 02/16/19 17:05 58 L 18 152/58 H 98 02/16/19 16:50 60 18 140/66 98 02/16/19 15:32 36.6 C 59 L 18 165/62 H 92 02/16/19 15:31 36.4 C L 58 L 18 171/59 H 91 02/16/19 11:05 36.5 C 54 L 20 150/65 H 93 02/16/19 07:51 36.6 C 59 L 18 171/66 H 97 02/16/19 07:21 57 L 02/16/19 04:00 36.4 C L 59 L 18 160/69 H 93 02/16/19 00:00 36.5 C 68 18 136/57 L 92 02/15/19 23:30 58 L 02/15/19 20:35 36.6 C 65 18 174/70 H 95 02/15/19 20:05 36.5 C 64 18 177/80 H 95 02/15/19 19:05 36.8 C 61 18 176/66 H 100 02/15/19 18:06 36.5 C 63 18 176/86 H 95 02/15/19 18:05 36.3 C L 63 18 160/47 H 93 02/15/19 17:51 36.6 C 65 18 176/86 H 96 02/15/19 17:50 36.6 C 63 18 179/69 H 95 02/15/19 17:34 36.5 C 63 18 176/68 H 95 Transfer of Care Handoff Completed per policy Notes Mental Status: alert / awake / arousable and participated in evaluation Patient Amnestic to Procedure: Yes Nausea / Vomiting: adequately controlled Pain: adequately controlled Airway Patency, RR, SpO2: stable & adequate BP & HR: stable & adequate Hydration State: stable & adequate Anesthetic Complications: no major complications apparent
--- NOTE | 2019-02-16 18:35 | Consultation Report ---
DATE OF CONSULTATION: 02/16/2019 REASON FOR EVALUATION: Anemia and melena. HISTORY OF PRESENT ILLNESS: The patient is a 78-year-old with end-stage renal disease on hemodialysis Tuesdays and who presented to the hospital with anemia with hemoglobin around 7. The patient reports seeing some dark stools recently as well. He was going to be given 2 units of red cells because of his low blood count. He reports no specific abdominal pain, but has had anemia in the past. PAST MEDICAL HISTORY: Remarkable for end-stage renal disease on hemodialysis. He has congestive heart failure, diabetes, depression, diabetic neuropathy, obstructive sleep apnea, benign prostatic hypertrophy, hypothyroidism, hypertension, COPD, hyperlipidemia. He is on multiple medications at home: He is not taking any aspirin or blood thinners. He is on pantoprazole 40 mg twice a day. ALLERGIES: TRAMADOL AND METFORMIN. FAMILY HISTORY: Mother had diabetes, gallbladder disease, hypertension, breast cancer. Father had diabetes, hypertension. Brother has diabetes, hypertension, kidney disease. SOCIAL HISTORY: The patient is , does not smoke, does not drink. REVIEW OF SYSTEMS: Positive for fatigue. PHYSICAL EXAMINATION: GENERAL: The patient appears chronically ill with a face mask on. VITAL SIGNS: Blood pressure is 116/66, pulse 62, temperature is 36.7. Respiratory effort is normal. HEART: Showed normal S1, S2. Regular rate and rhythm without murmurs, rubs, or gallops. EXTREMITIES: Showed a fistula in the right arm. ABDOMEN: Soft. He has a cholecystectomy scar. IMAGING: The patient underwent an EGD in the endoscopy unit and was found to have multiple gastric polyps and a duodenal diverticulum which were incidental findings, in the gastric antrum he had multiple angioectasias that were cauterized with argon plasma coagulation. I believe this is the source of bleeding as there was some adherent blood in this area at the time of the endoscopy. 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 This has a tendency to recur and he may need repeat procedures in the future. For now, I will keep him on Protonix to help heal his cauterization. [facility]
[2019-02-16] MEDS: ROSUVASTATIN CALCIUM 20 MG TAB PO SCH (21:23)
[2019-02-16] MEDS: TAMSULOSIN HCL 0.4 MG CAP PO SCH (21:23)
[2019-02-16] MEDS: AMLODIPINE BESYLATE 5 MG TAB PO SCH (21:24)
[2019-02-16] MEDS: GABAPENTIN 100 MG CAP PO SCH (21:24)
--- NOTE | 2019-02-16 22:16 | Hospitalist Progress Note ---
Date of Service February 16, 2019 Assessment & Plan (1) GI bleed: Hgb 6.6 on admission, increased to 7.7 after 2 unit pRBCs. Transfuse < 7 depending on EGD results. Hx GI bleeds, [place] [facility] [place] EGD 06/2018 - healed gastric ulcer, multiple polyps, no bleeding or recent stigmata of bleeding in the gastric body. Heme + in ED Appreciate GI consult - for EGD today (2) ESRD (end stage renal disease) on dialysis: Appreciate nephrology management (Dr. Briceno) HD on // Appears to be at baseline but will be here for dialysis tomorrow. d/c IV fluids (3) Cellulitis of left lower extremity without foot: Pt has ongoing issues with LE cellulitis, previously on doxycyline in January. Referred to wound care 02/13 however states they have not been called to be told which office to go to. Unclear recent antibiotic use but apparently only had 2 days left therefore will continue keflex for 2 more days as currently appears as a resolved/chronic cellulitis venous insufficiency changes. Agree with nephrology regarding wound consult while inpatient. (4) Anxiety: continue home meds (5) 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, with long-term current use of insulin: SSI PRN given NPO status A1c pending (6) Depression: continue home meds (7) Diabetic peripheral neuropathy: continue home meds (8) Hiatal hernia with GERD without esophagitis: continue home meds (9) Obstructive sleep apnea: O2 via NC (10) BPH (benign prostatic hyperplasia): continue home meds (11) Hypothyroidism: continue home meds (12) Hypertension: continue home meds (13) COPD (chronic obstructive pulmonary disease): With chronic respiratory failure continue home meds No exacerbation currently (14) Hyperlipidemia LDL goal <70: continue home meds (15) DVT prophylaxis: SCDs only given GIB Subjective No acute events overnight. Patient seen prior to EGD. Annoyed at not being able to eat or drink. Denies any chest pain, shortness of breath, dizziness. Notes ongoing melena, no better or worse over the last 4 to 6 weeks. No abdominal pain, nausea or vomiting. He reports compliance with medications at home. Review of Systems Review of Systems: All systems reviewed & are unremarkable except as noted in HPI & below Physical Exam Constitutional: WD/WN, vitals as above Eyes: + anicteric sclerae; normal pupil size Pupils equal Neck: normal visual inspection Respiratory: normal respiratory effort, lungs clear to auscultation Cardiovascular: Rate/Rhythm: regular rate and regular rhythm Heart Sounds: + murmur (Systolic, loudest LUSB, 2/6) Extremities: + edema Gastrointestinal (Abdomen): Inspection/Auscultation: abdomen not distended Percussion/Palpation: abdomen soft and + hernia (R lateral just lateral to open agnes scar, reducible and soft); abdomen nontender and no guarding Musculoskeletal: Head/Neck/Chest: normocephalic and head atraumatic Extremi ties: extremities normal to inspection Neurologic: awake; not confused Speech / Cognition: normal speech Psychiatric: A+Ox3, euthymic affect Results & Data Vital Signs (Past 12 Hours) Vital Signs Temp Pulse Resp BP Pulse Ox 02/16/19 19:15 98.4 F 60 17 162/58 H 91 02/16/19 17:20 58 L 16 147/60 H 98 02/16/19 17:05 58 L 18 152/58 H 98 02/16/19 16:50 60 18 140/66 98 02/16/19 15:32 97.9 F 59 L 18 165/62 H 92 02/16/19 15:31 97.5 F L 58 L 18 171/59 H 91 02/16/19 11:05 97.7 F 54 L 20 150/65 H 93 PG Care Time/CCT Total # of Minutes Spent Total Time Spent with Patient: Total time spent is greater than 50% in coordination of care (as documented) at patient's floor/unit and/or counseling patient: (1) GI bleed GI bleed type/associated pathology: unspecified gastrointestinal hemorrhage type Qualified Code(s): K92.2 - Gastrointestinal hemorrhage, unspecified (2) BPH (benign prostatic hyperplasia) Lower urinary tract symptom presence: unspecified whether lower urinary tract symptoms present Qualified Code(s): N40.0 - Benign prostatic hyperplasia without lower urinary tract symptoms (3) Hypothyroidism Hypothyroidism type: acquired Qualified Code(s): E03.9 - Hypothyroidism, unspecified (4) Hypertension Hypertension type: essential hypertension Qualified Code(s): I10 - Essential (primary) hypertension (5) COPD (chronic obstructive pulmonary disease) COPD type: unspecified COPD Qualified Code(s): J44.9 - Chronic obstructive pulmonary disease, unspecified
[2019-02-17] MEDS: PANTOprazole 40 MG in DEXTROSE 5% 100 ML IV SCH ×3 (02:32→13:53)
[2019-02-17] MEDS: LEVOTHYROXINE SODIUM 200 MCG TABLET PO SCH (06:12)
[2019-02-17] MEDS: LEVOTHYROXINE SODIUM 50 MCG TABLET PO SCH (06:13)
[2019-02-17 06:15] LABS: Hematocrit (blood only) 25.3 % (42-52); Hemoglobin 7.9 g/dL (14.0-18.0); Mean Corpuscular Hemoglobin 27.9 pg (25-34); Mean Corpuscular Hgb Conc 31.2 g/dL (32-36); Mean Corpuscular Volume 89.4 fL (80-100); Mean Platelet Volume 10.4 fL (7.4-10.4); Platelet Count 140 K/uL (130-400); RDW Coefficient of Variation 18.7 % (11.5-14.5); RDW Standard Deviation 61.5 fL (36.4-46.3); Red Blood Count 2.83 M/uL (4.7-6.1); White Blood Count 3.85 K/uL (4.8-10.8)
[2019-02-17 06:43] LABS: Estimated Average Glucose 140 mg/dl; Hemoglobin A1C 6.5 % (4.5-5.6)
[2019-02-17 06:58] LABS: Albumin Level 3.2 gm/dl (3.4-5.0); BUN Creatinine Ratio 9.7 (10-20); Calcium 8.9 mg/dl (8.5-10.1); Creatinine Clr Calc Pharmacy 9.5 ml/min; Est GFR (African American) 6.6; Est GFR (Non-African American) 5.7; Phosphorus 7.8 mg/dl (2.5-4.9); Potassium 3.7 mmol/L (3.5-5.1)
[2019-02-17] MEDS ORDERED: SODIUM CHLORIDE 0.9% 1000ML 1,000 ML IV PRN (07:00)
[2019-02-17] MEDS ORDERED: EPOETIN ALFA 4,000 UNIT/ML VIAL IV ONE (07:00)
--- NOTE | 2019-02-17 07:26 | Anesthesiology Progress Note ---
Date of Service February 17, 2019 Anesthesia Post Procedure Vital Signs Vital Signs: Temp Pulse Pulse Resp BP Pulse Ox 02/17/19 07:17 36.4 C L 91 H 18 169/65 H 91 02/17/19 07:15 58 L 02/17/19 04:00 36.5 C 63 18 178/68 H 90 02/17/19 00:30 58 L 02/16/19 23:26 36.6 C 60 18 176/72 H 90 02/16/19 19:15 36.9 C 60 17 162/58 H 91 02/16/19 17:20 58 L 16 147/60 H 98 02/16/19 17:05 58 L 18 152/58 H 98 02/16/19 16:50 60 18 140/66 98 02/16/19 15:32 36.6 C 59 L 18 165/62 H 92 02/16/19 15:31 36.4 C L 58 L 18 171/59 H 91 02/16/19 11:05 36.5 C 54 L 20 150/65 H 93 02/16/19 07:51 36.6 C 59 L 18 171/66 H 97 Notes Mental Status: alert / awake / arousable and participated in evaluation Nausea / Vomiting: adequately controlled Pain: adequately controlled Airway Patency, RR, SpO2: stable & adequate BP & HR: stable & adequate Hydration State: stable & adequate
[2019-02-17] MEDS ORDERED: Nursing to Pharmacy Communication ONE (07:30)
--- NOTE | 2019-02-17 07:33 | Hospitalist Progress Note ---
Date of Service February 17, 2019 Assessment & Plan (1) GI bleed: Secondary to AVMs on EGD. Hgb 7.9 this morning. Will transfuse 1 additional unit packed RBCs as per nephrology recommendations to aim > 8. Repeat CBC in AM. Plan on d/c home tomorrow as long as stable. EGD - multiple stigmata of recent bleeding angiectasis profound gastric antrum treated with argon plasma. (2) ESRD (end stage renal disease) on dialysis: Appreciate nephrology management (Dr. Briceno) HD on / Hemodialysis today (3) Cellulitis of left lower extremity without foot: Pt has ongoing issues with LE cellulitis, previously on doxycyline in January. Referred to wound care 02/13 however states they have not been called to be told which office to go to. Unclear recent course of antibiotics but as per H&P will plan on d/c keflex today. Dark erythema surrounding left allen ulcer, not warm and appearance consistent with treated cellulitis. Appreciate wound care management - right allen - apply optifoam, change every other day. Follow up with wound clinic [phone]. (4) Anxiety: continue home meds (5) 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, with long-term current use of insulin: Restart Levemir at lower dose (10 units) given inpatient diet A1c 6.5 (6) Depression: continue home meds (7) Diabetic peripheral neuropathy: continue home meds (8) Hiatal hernia with GERD without esophagitis: continue home meds (9) Obstructive sleep apnea: O2 via NC (10) BPH (benign prostatic hyperplasia): continue home meds (11) Hypothyroidism: continue home meds (12) Hypertension: continue home meds Dialysis today (13) COPD (chronic obstructive pulmonary disease): continue home meds No exacerbation currently (14) Hyperlipidemia LDL goal <70: continue home meds (15) DVT prophylaxis: SCDs only given GIB Code - full Dispo - aim discharge tomorrow if CBC stable after additional blood transfusion Subjective Patient seen after dialysis. Reports stools are improving. Asymptomatic from anemia. Review of Systems Review of Systems: All systems reviewed & are unremarkable except as noted in HPI & below Physical Exam Constitutional: WD/WN, vitals as above Eyes: + anicteric sclerae; normal pupil size Neck: normal visual inspection Respiratory: normal respiratory effort, lungs clear to auscultation Cardiovascular: Rate/Rhythm: regular rate and regular rhythm Heart Sounds: + murmur (Systolic, loudest LUSB, 2/6) Extremities: + edema Gastrointestinal (Abdomen): Inspection/Auscultation: abdomen not distended Percussion/Palpation: abdomen soft and + hernia (R lateral just lateral to open agnes scar, reducible and soft); abdomen nontender and no guarding Musculoskeletal: Head/Neck/Chest: normocephalic and head atraumatic Extremities: extremities normal to inspection Neurologic: awake; not confused Speech / Cognition: normal speech Psychiatric: A+Ox3, euthymic affect Results & Data Vital Signs (Past 12 Hours) Vital Signs Temp Pulse Pulse Resp BP Pulse Ox 02/17/19 07:17 97.5 F L 91 H 18 169/65 H 91 02/17/19 07:15 58 L 02/17/19 04:00 97.7 F 63 18 178/68 H 90 02/17/19 00:30 58 L 02/16/19 23:26 97.9 F 60 18 176/72 H 90 PG Care Time/CCT Total # of Minutes Spent Total Time Spent with Patient: Total time spent is greater than 50% in coordination of care (as documented) at patient's floor/unit and/or counseling patient: (1) BPH (benign prostatic hyperplasia) Lower urinary tract symptom presence: unspecified whether lower urinary tract symptoms present Qualified Code(s): N40.0 - Benign prostatic hyperplasia without lower urinary tract symptoms (2) GI bleed GI bleed type/associated pathology: unspecified gastrointestinal hemorrhage type Qualified Code(s): K92.2 - Gastrointestinal hemorrhage, unspecified (3) Hypothyroidism Hypothyroidism type: acquired Qualified Code(s): E03.9 - Hypothyroidism, unspecified (4) COPD (chronic obstructive pulmonary disease) COPD type: unspecified COPD Qualified Code(s): J44.9 - Chronic obstructive pulmonary disease, unspecified (5) Hypertension Hypertension type: essential hypertension Qualified Code(s): I10 - Essential (primary) hypertension
[2019-02-17] MEDS: SEVELAMER HCL 800 MG TABLET PO SCH ×3 (08:10→20:46)
[2019-02-17] MEDS: FUROSEMIDE 80 MG TAB PO SCH ×2 (08:10→20:50)
[2019-02-17] MEDS: DOCUSATE SODIUM 100 MG CAP PO SCH (08:10)
[2019-02-17] MEDS: DOXAZOSIN MESYLATE 1 MG TAB PO SCH (08:11)
[2019-02-17] MEDS: cephALEXin 500 MG CAP PO SCH ×2 (08:11→20:47)
[2019-02-17] MEDS: HydrALAZINE 10 MG TAB PO SCH ×3 (08:11→17:26)
[2019-02-17] MEDS: LABETALOL HCL 100 MG TAB PO SCH ×2 (08:12→20:48)
[2019-02-17] MEDS: NEPHROCAPS PO SCH (08:12)
[2019-02-17] MEDS: INSULIN ASPART 100 UNITS/ML 3 ML PEN SC SCH ×5 (08:15→20:31)
--- NOTE | 2019-02-17 10:52 | Nephrology Progress Note ---
Date of Service February 17, 2019 Assessment & Plan (1) ESRD (end stage renal disease) on dialysis: -- ESRD due to diabetic nephropathy. HD TTS at [facility] -- Heparin free HD today. Discussed w/ HD staff educator -- NEMESIO ordered following HD (2) GI bleed: -- s/p cautery of gastric angioectasia (3) Anemia: -- Recommend blood transfusion to maintain Hgb > 8.0 (4) Hypertension: -- BP mildly elevated. Will monitor following HD (5) Secondary hyperparathyroidism of renal origin: -- Start on phosphate binder and renal vitamin once patient is allowed to take orally Subjective Mr. Mcintyre was seen & examined in his hospital room this morning. His EGD yes terday revealed angioectagia of the stomach. He underwent cautery and currently denies abdominal discomfort or overt blood loss. Review of Systems 2 Constitutional: no fever and no chills Eyes: no worsening vision and no problem reported Ear, Nose, Mouth, Throat: no problem reported Respiratory: no cough and no dyspnea Cardiovascular: no chest pain, no palpitations and no edema Gastrointestinal: no abdominal pain, no nausea, no vomiting and no diarrhea/loose stools Genitourinary: no dysuria, no urinary hesitancy and no hematuria Musculoskeletal: no back pain Integumentary: no rash Neurologic: no falls, no dizziness and no confusion Physical Exam Constitutional: + ill appearing Eyes: PERRL, conjunctivae normal, anicteric sclerae ENMT: external ear and nose normal, oropharynx normal Neck: trachea midline, no thyromegaly Respiratory: normal respiratory effort, lungs clear to auscultation Cardiovascular: RRR, no murmur, no edema Gastrointestinal (Abdomen): normal bowel sounds, soft, nontender, no hepatosplenomegaly Musculoskeletal: no cyanosis or clubbing, extremities motor strength 5/5 Skin: no rashes, warm and dry Neurologic: awake; not confused Results & Data Vital Signs (Past 12 Hours) Vital Signs Temp Pulse Pulse Resp BP Pulse Ox 02/17/19 07:17 36.4 C L 91 H 18 169/65 H 91 02/17/19 07:15 58 L 02/17/19 04:00 36.5 C 63 18 178/68 H 90 02/17/19 00:30 58 L 02/16/19 23:26 36.6 C 60 18 176/72 H 90 Laboratory Results Laboratory Tests 02/17/19 02/17/19 05:50 05:50 WBC 3.85 L Hgb 7.9 L Hct 25.3 L Plt Count 140 Sodium 140 Potassium 3.7 Chloride 101 Carbon Dioxide 26 BUN 80 H Creatinine 8.25 H* D Glucose 174 H PG Care Time/CCT Total # of Minutes Spent Total Time Spent with Patient: Total time spent is greater than 50% in coordination of care (as documented) at patient's floor/unit and/or counseling patient: (1) GI bleed GI bleed type/associated pathology: unspecified gastrointestinal hemorrhage type Qualified Code(s): K92.2 - Gastrointestinal hemorrhage, unspecified (2) Anemia Anemia type: unspecified type Qualified Code(s): D64.9 - Anemia, unspecified (3) Hypertension Hypertension type: essential hypertension Qualified Code(s): I10 - Essential (primary) hypertension
[2019-02-17] MEDS: lisinopriL 40 MG TAB PO SCH (15:33)
--- NOTE | 2019-02-17 16:14 | Gastroenterology Progress Note ---
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 He denies abd pain. Review of Systems Respiratory: no dyspnea Cardiovascular: no chest pain Physical Exam Constitutional: WD/WN, vitals as above Respiratory: normal respiratory effort, lungs clear to auscultation Cardiovascular: RRR, no murmur, no edema Gastrointestinal (Abdomen): normal bowel sounds, soft, nontender, no hepatosplenomegaly Results & Data Vital Signs (Past 12 Hours) Vital Signs Temp Pulse Pulse Pulse Resp BP BP 02/17/19 15:54 36.7 C 59 L 16 176/61 H 02/17/19 14:48 36.8 C 58 L 171/85 H 02/17/19 14:40 58 L 180/82 H 02/17/19 14:20 58 L 175/79 H 02/17/19 14:00 56 L 171/72 H 02/17/19 13:40 58 L 108/81 02/17/19 13:20 56 L 175/80 H 02/17/19 13:00 57 L 168/70 H 02/17/19 12:40 59 L 165/68 H 02/17/19 12:20 56 L 169/81 H 02/17/19 12:00 56 L 168/74 H 02/17/19 11:40 56 L 164/78 H 02/17/19 11:20 55 L 158/63 H 02/17/19 10:58 157/67 H 02/17/19 10:41 36.4 C L 54 L 02/17/19 07:17 36.4 C L 91 H 18 169/65 H 02/17/19 07:15 58 L Pulse Ox 02/17/19 15:54 91 02/17/19 14:48 02/17/19 14:40 02/17/19 14:20 02/17/19 14:00 02/17/19 13:40 02/17/19 13:20 02/17/19 13:00 02/17/19 12:40 02/17/19 12:20 02/17/19 12:00 02/17/19 11:40 02/17/19 11:20 02/17/19 10:58 02/17/19 10:41 02/17/19 07:17 91 02/17/19 07:15 (1) GI bleed GI bleed type/associated pathology: unspecified gastrointestinal hemorrhage type Qualified Code(s): K92.2 - Gastrointestinal hemorrhage, unspecified
[2019-02-17] MEDS ORDERED: SODIUM CHLORIDE 0.9% 250 ML IV PRN (19:03)
[2019-02-17] MEDS: PANTOprazole 40 MG TAB PO SCH (20:45)
[2019-02-17] MEDS: AMLODIPINE BESYLATE 5 MG TAB PO SCH (20:46)
[2019-02-17] MEDS: GABAPENTIN 100 MG CAP PO SCH (20:48)
[2019-02-17] MEDS: TAMSULOSIN HCL 0.4 MG CAP PO SCH (20:48)
[2019-02-17] MEDS: ROSUVASTATIN CALCIUM 20 MG TAB PO SCH (20:49)
[2019-02-17] MEDS ORDERED: INSULIN DETEMIR FLEXPEN/FLEX TOUCH 100 UNITS/ML 3ML SQ SCH (21:00)
[2019-02-18] MEDS ORDERED: HALOPERIDOL LACTATE 5 MG/ML 1 ML VIAL IV STA (01:42)
[2019-02-18] MEDS: LEVOTHYROXINE SODIUM 200 MCG TABLET PO SCH (06:34)
[2019-02-18] MEDS: LEVOTHYROXINE SODIUM 50 MCG TABLET PO SCH (06:34)
[2019-02-18] MEDS: PANTOprazole 40 MG TAB PO SCH (08:03)
[2019-02-18] MEDS: SEVELAMER HCL 800 MG TABLET PO SCH (08:03)
[2019-02-18 08:04] LABS: Hematocrit (blood only) 26.8 % (42-52); Hemoglobin 8.3 g/dL (14.0-18.0); Mean Corpuscular Hemoglobin 27.5 pg (25-34); Mean Corpuscular Volume 88.7 fL (80-100); Mean Platelet Volume 10.4 fL (7.4-10.4); Platelet Count 142 K/uL (130-400); RDW Coefficient of Variation 18.2 % (11.5-14.5); RDW Standard Deviation 58.2 fL (36.4-46.3); Red Blood Count 3.02 M/uL (4.7-6.1); White Blood Count 3.45 K/uL (4.8-10.8)
[2019-02-18] MEDS: FUROSEMIDE 80 MG TAB PO SCH (08:04)
[2019-02-18] MEDS: DOCUSATE SODIUM 100 MG CAP PO SCH (08:04)
[2019-02-18] MEDS: NEPHROCAPS PO SCH (08:04)
[2019-02-18] MEDS: LABETALOL HCL 100 MG TAB PO SCH (08:05)
[2019-02-18] MEDS: DOXAZOSIN MESYLATE 1 MG TAB PO SCH (08:05)
[2019-02-18] MEDS: INSULIN ASPART 100 UNITS/ML 3 ML PEN SC SCH ×2 (08:08→12:46)
[2019-02-18 08:47] LABS: BUN Creatinine Ratio 6.9 (10-20); Calcium 8.7 mg/dl (8.5-10.1); Creatinine Clr Calc Pharmacy 12.8 ml/min; Est GFR (African American) 10.4; Potassium 3.3 mmol/L (3.5-5.1)
--- NOTE | 2019-02-18 10:24 | Nephrology Progress Note ---
Date of Service February 18, 2019 Assessment & Plan (1) ESRD (end stage renal disease) on dialysis: -- ESRD due to diabetic nephropathy. HD TTS at [facility] -- No acute indication for HD today. Will schedule next dialysis for am -- Recommend stopping Gabapentin due to ESRD and MS changes/lethargy (2) GI bleed: -- s/p cautery of gastric angioectasia (3) Anemia: -- Recommend blood transfusion to maintain Hgb > 8.0 (4) Hypertension: -- Improved. Will monitor (5) Secondary hyperparathyroidism of renal origin: -- Start on phosphate binder and renal vitamin once patient is allowed to take orally Subjective Mr. Mcintyre was seen & examined in his hospital room this morning. He was dialyzed yesterday without incident. He is lethargic but will attend to the examiner. He voices no medical concerns and denies abdominal pain or overt blood loss Review of Systems Constitutional: no fever and no chills Eyes: no worsening vision and no problem reported Ear, Nose, Mouth, Throat: no problem reported Respiratory: no cough and no dyspnea Cardiovascular: no chest pain, no palpitations and no edema Gastrointestinal: no abdominal pain, no nausea, no vomiting and no diarrhea/loose stools Genitourinary: no dysuria, no urinary hesitancy and no hematuria Musculoskeletal: no back pain Integumentary: no rash Physical Exam Constitutional: + ill appearing Eyes: PERRL, conjunctivae normal, anicteric sclerae ENMT: external ear and nose normal, oropharynx normal Neck: trachea midline, no thyromegaly Respiratory: normal respiratory effort, lungs clear to auscultation Cardiovascular: RRR, no murmur, no edema Extremities: + AV fistula (+ bruit) Gastrointestinal (Abdomen): normal bowel sounds, soft, nontender, no hepatosplenomegaly Musculoskeletal: Extremities: no cyanosis Skin: no rashes, warm and dry Neurologic: awake; not confused Results & Data Vital Signs (Past 12 Hours) Vital Signs Temp Pulse Pulse Resp BP BP Pulse Ox 02/18/19 07:30 36.3 C L 55 L 20 158/71 H 93 02/18/19 07:25 55 L 02/18/19 04:00 36.6 C 65 20 162/72 H 02/18/19 00:15 36.9 C 58 L 18 169/65 H 19 23:05 37.0 C 61 18 177/64 H 91 Laboratory Results Laboratory Tests 02/18/19 02/18/19 07:40 07:40 WBC 3.45 L Hgb 8.3 L Hct 26.8 L Plt Count 142 Sodium 140 Potassium 3.3 L Chloride 102 Carbon Dioxide 28 BUN 39 H D Creatinine 5.63 H* D Glucose 104 H PG Care Time/CCT Total # of Minutes Spent Total Time Spent with Patient: Total time spent is greater than 50% in coordination of care (as documented) at patient's floor/unit and/or counseling patient: (1) GI bleed GI bleed type/associated pathology: unspecified gastrointestinal hemorrhage type Qualified Code(s): K92.2 - Gastrointestinal hemorrhage, unspecified (2) Anemia Anemia type: unspecified type Qualified Code(s): D64.9 - Anemia, unspecified (3) Hypertension Hypertension type: essential hypertension Qualified Code(s): I10 - Essential (primary) hypertension
[2019-02-18] MEDS ORDERED: SEVELAMER HCL 800 MG TABLET PO SCH (12:00)
[2019-02-18] MEDS: lisinopriL 40 MG TAB PO SCH (14:28)
[2019-02-19] MEDS ORDERED: SODIUM CHLORIDE 0.9% 1000ML 1,000 ML IV PRN (07:00)
[2019-02-19] MEDS ORDERED: EPOETIN ALFA 10,000 UNITS/ML VIAL IV ONE (07:00)
--- NOTE | 2019-03-04 00:44 | Discharge Summary ---
Date of Service February 18, 2019 Admission HPI Per Admitting Provider 78 y/o M who was told to come to the ED for low Hb. Pt has HD on . He had his usual HD session yesterday and labs were drawn after. His Hb was noted to be low so he was instructed to come to the hospital for transfusion. Pt states he has had black stools for several months. He occasionally notices brighter red in his underwear and this has happened the last few days. He does have rectal pain, mostly with bowel movements. He does have diffuse abd pain that comes and goes, does not seem to be related to PO intake. He also gets period chest pain without specific cause on occasion, not related to abd pain. He is always SOB and uses O2 2L via NC continuous. He has no issues with PO intake. He states that he has regular issues with constipation. Pt has ongoing issues with LE cellulitis. He was supposed to be seen by [facility] however states they have not been called to be told which office to go to. He was restarted on abx by Dr. Briceno last week, but they do not know which abx. There are no notes from Dr. Briceno from last week, however there is a nursing note from Dr. Wang's office regarding LE cellulitis. There is no mention of abx being ordered in this note. Family states that pt has been having issues with rectal bleeding for quite some time. He was being followed at [facility] due to the location of the bleeding requiring pediatric scoping. His last appt with them was August and he was told f/u was not needed for at least 6 months after having a scope at that time. Admission Exam Per Admitting Provider Constitutional: WD/WN, vitals as above Eyes: normal visual arreaga by confrontation and + anicteric sclerae Neck: normal visual inspection and trachea midline Respiratory: normal respiratory effort, lungs clear to auscultation Cardiovascular: Rate/Rhythm: regular rate and regular rhythm Gastrointestinal (Abdomen): Inspection/Auscultation: abdomen not distended Percussion/Palpation: abdomen soft and + hernia (R lateral just lateral to open agnes scar, reducible and soft); abdomen nontender Musculoskeletal: Head/Neck/Chest: normocephalic and head atraumatic b/l 2+ pitting LE edema, peripheral pulses intact Skin: b/l LE redness and bandages that are clean and dry. 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 Discharge Exam Constitutional WD/WN, vitals as above Eyes + anicteric sclerae; normal pupil size Neck normal visual inspection Respiratory normal respiratory effort, lungs clear to auscultation Cardiovascular Rate/Rhythm: regular rate and regular rhythm Heart Sounds: + murmur (Systolic, loudest LUSB, 2/6) Extremities: + edema Gastrointestinal (Abdomen) Inspection/Auscultation: abdomen not distended Percussion/Palpation: abdomen soft and + hernia (R lateral just lateral to open agnes scar, reducible and soft); abdomen nontender and no guarding Musculoskeletal Head/Neck/Chest: normocephalic and head atraumatic Extremities: extremities normal to inspection Neurologic awake; not confused Speech / Cognition: normal speech Psychiatric A+Ox3, euthymic affect Discharge Data Allergies Allergy/AdvReac Type Severity Reaction Status Date / Time tramadol AdvReac Severe disorented Verified 02/15/19 12:26 ,falling down metformin AdvReac Intermediate CONFUSION Verified 02/15/19 12:26 Consultations 02/15/19 13:17 ED Decision to Admit Stat 02/15/19 16:11 Consult Case Management - Discharge Planning Routine Consult Gastroenterology Routine Consult Nephrology Routine Procedures Performed Operation Date: 02/16/19 10:10 Actual Procedures p EGD Hemostasis(Not Applicable) - [facility] Course (1) GI bleed: Hgb now stable at 8.3 after 3 units packerd RBCs from Hgb 6.6. Aim as per nephrology Hgb > 8 EGD - multiple stigmata of recent bleeding angiectasis profound gastric antrum treated with argon plasma. Pantoprazole 40mg PO BID continuous F/U GI O/P (2) Hypertension: In addition your insulin was decreased from 20 to 15 units daily as glucose levels as your diabetes control has been good and concern for low glucose levels at this higher dose. Please follow up with your PCP regarding this. You hydralazine was also increased in order to better control your blood pressure. Please follow up with your PCP regarding this. (3) ESRD (end stage renal disease) on dialysis: Appreciate nephrology management (Dr. Briceno) HD on (4) Cellulitis of left lower extremity without foot: Pt has ongoing issues with LE cellulitis, previously on doxycyline in January. Wound care consulted as inpatient and patient will follow up in [facility] wound clinic to organize appointment for ongoing management. Keflex given as inpatient as ongoing outpatient prescription but no cellulitis noted on exam on discharge - chronic venous changes only. Appreciate wound care management - right allen - apply optifoam, change every other day. Follow up with wound clinic [phone]. 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 Wang on SaturdayFebruary 23 at 9:15 am. *If you need to change this appointment, call the office at [phone].) Diet: Regular Addtl Attending Provider Instructions: You were diagnosed with arteriovenous malformations causing an gastric bleed. This was treated with EGD and argon laser. Required 3 units packed red blood diego transfusion. Labs will be rechecked at dialysis for ongoing anemia. Recommend taking pantoprazole 40mg oral twice a day as prescribed until follow up with gastroenterology. In addition your insulin was decreased from 20 to 15 units daily as glucose levels as your diabetes control has been good and concern for low glucose levels at this higher dose. Please follow up with your PCP regarding this. You hydralazine wsa also increased in order to better control your blood pressure. Please follow up with your PCP regarding this. Pending Studies at Discharge: No Stand-Alone Forms: My [facility] Medications and DC Order Prescriptions: New hydralazine 25 mg Tablet 25 mg PO TIDM 30 Days Qty: 30 RF: 0 Continued labetalol 100 mg tablet 400 mg PO BID Qty: 720 RF: 0 doxazosin [Cardura] 1 mg tablet 1 mg PO DAILY Qty: 90 RF: 1 gabapentin 100 mg capsule 200 mg PO HS Qty: 60 RF: 5 amlodipine 10 mg tablet 10 mg PO HS Qty: 90 RF: 0 docusate sodium 100 mg capsule 200 mg PO QAM Qty: 30 RF: 0 furosemide 80 mg tablet 80 mg PO AMPM Qty: 60 RF: 0 insulin syringe-needle U-100 [BD Insulin Syringe Ultra-Fine] 0.5 mL 30 gauge x 1/2" syringe .ROUTE .MEDSUPPLY Qty: 10 RF: 0 rosuvastatin 20 mg tablet 20 mg PO QPM Qty: 90 RF: 0 pantoprazole 40 mg Tablet,Delayed Release (Dr/Ec) 40 mg PO BID Qty: 60 RF: 2 tamsulosin 0.4 mg capsule 0.4 mg PO HS Qty: 90 RF: 1 Renal Caps 1 mg capsule 1 mg PO DAILY RF: 0 sevelamer carbonate 800 mg tablet 1,600 mg PO TID RF: 0 levothyroxine 50 mcg tablet 50 mcg PO UD RF: 0 levothyroxine 200 mcg tablet 200 mcg PO DAILY RF: 0 Changed Levemir U-100 Insulin 100 unit/mL solution 15 units subcut HS Qty: 10 RF: 0 Discontinued hydralazine 10 mg tablet 10 mg PO TIDM Qty: 90 RF: 0 No Action lisinopril 40 mg tablet 40 mg PO DAILY@1200 Qty: 90 RF: 3 Discharge Orders: Discharge Order (Routine); Ordered 02/18/19 Ordered By: Prashanth Rainey Admission Data Admit Date/Time: 02/15/19 14:41 Attending Provider: Prashanth Rainey Admit Provider: Raina Funes Primary Care Provider: Mahsa Wang Other Providers: Raina Funes ; Merlyn Briceno ; Mando White Other Interventions: Discharge Summary Assessment (RN) Last Done: 02/18/19 12:33 DC Date/Time DO NOT enter until pt leaves facility: 02/18/19 15:38
== END 2019-02-18 15:38 | disposition home or self-care (01) | DRG 377 ==
LOC: ED 11:46 → SUATTDRO 14:41 → 2W 14:41

== ENCOUNTER 2019-03-05 11:44 | Inpatient (IN) ==
[2019-03-05] MEDS ORDERED: LIDO/EPINEPHRINE/SOD BICARB 20 ML VIAL INFIL ONE (12:19)
--- NOTE | 2019-03-05 12:29 | XRay Report ---
XR chest 1V portable HISTORY: Atypical Chest Pain COMPARISON: Chest 12/22/2018. FINDINGS: There are low lung volumes. The heart remains mildly enlarged. No new focal lung consolidat ions to suggest pneumonia. Stable mild interstitial thickening which is likely chronic. No evidence f or pulmonary edema. A few bibasilar linear densities favor subsegmental atelectasis. IMPRESSION: No significant change compared to the prior study. No acute process. Stable mild cardiomegaly. Electronically signed by: Jose C Jaeger M.D. 03/05/2019 12:28 PM
[2019-03-05 12:46] LABS: Basophils # (auto) 0.04 K/uL (0-0.2); Eosinophils # (auto) 0.12 K/uL (0-0.5); Hematocrit (blood only) 25.2 % (42-52); Hemoglobin 7.7 g/dL (14.0-18.0); Immature Granulocytes # (auto) 0.02 K/uL (0.00-0.02); Immature Granulocytes % (auto) 0.5 %; Lymphocytes # (auto) 0.45 K/uL (1.2-3.4); Lymphocytes % (auto) 11.3 %; Mean Corpuscular Hemoglobin 28.1 pg (25-34); Mean Corpuscular Hgb Conc 30.6 g/dL (32-36); Mean Platelet Volume 9.7 fL (7.4-10.4); Monocytes # (auto) 0.42 K/uL (0.11-0.59); Monocytes % (auto) 10.6 %; Neutrophils # (auto) 2.93 K/uL (1.4-6.5); Neutrophils % (auto) 73.6 %; Platelet Count 189 K/uL (130-400); RDW Coefficient of Variation 18.9 % (11.5-14.5); RDW Standard Deviation 61.5 fL (36.4-46.3); Red Blood Count 2.74 M/uL (4.7-6.1); White Blood Count 3.98 K/uL (4.8-10.8)
[2019-03-05 12:57] LABS: INR 1.2 (0.9-1.1); Prothrombin Time 11.7 Seconds (9.0-12.0)
[2019-03-05 13:01] LABS: Alanine Aminotransferase 22 U/L (12-78); Albumin Level 3.3 gm/dl (3.4-5.0); Aspartate Aminotransferase 14 U/L (15-37); BUN Creatinine Ratio 7.2 (10-20); Blood Urea Nitrogen 28 mg/dl (7-18); Calcium 9.2 mg/dl (8.5-10.1); Carbon Dioxide 33 mmol/L (21-32); Chloride 100 mmol/L (98-107); Est GFR (African American) 16.1; Est GFR (Non-African American) 13.9; Glucose 184 mg/dl (70-99); Lipase 199 U/L (73-393); Magnesium 1.9 mg/dl (1.8-2.4); Potassium 3.3 mmol/L (3.5-5.1); Sodium 139 mmol/L (136-145)
[2019-03-05 13:09] LABS: Alkaline Phosphatase 159 U/L (45-117); Bilirubin Direct 0.2 mg/dl (0-0.2); Bilirubin,Total 0.6 mg/dl (0.2-1); Globulin 3.4 gm/dl (2.5-4.0); Phosphorus 3.3 mg/dl (2.5-4.9); Total Protein 6.7 gm/dl (6.4-8.2); Troponin I 0.062 ng/ml (0-0.045)
[2019-03-05 13:11] LABS: Anisocytosis Present
[2019-03-05] MEDS ORDERED: SODIUM CHLORIDE 0.9% 250 ML IV PRN (13:48)
[2019-03-05] MEDS ORDERED: PANTOprazole 80 MG in DEXTROSE 5% 100 ML IV ONE (15:15)
[2019-03-05] MEDS: PANTOprazole 40 MG in DEXTROSE 5% 100 ML IV SCH ×2 (16:45→21:10)
--- NOTE | 2019-03-05 17:09 | History & Physical Report ---
Date of Service March 05, 2019 Assessment & Plan (1) GI bleed: Recurrent GI bleeds. Recently admitted for the same. Received argon laser to moderate gastric antral vascular ectasia from Dr Bangura. Hgb stable s/p x2 packed RBC transfusions. Follow up with routine labs at dialysis for monitoring. (2) Anemia: Given recent increase in melanic stools suspect his angiodysplasia has re- bled. (3) Bursitis of right elbow: Drained in ER, Bloody fluid from analysis, no pathological crystals present. Gram stain without organisms (4) ESRD (end stage renal disease) on dialysis: Consult nephrology for ongoing dialysis management given expected stay >=2 days (5) IgG monoclonal gammopathy: Stable, continue monitoring CBC daily. Present on Admission?: Yes (6) Memory loss: Stable vascular dementia, continue monitoring BP Q4hr and home medication for blood pressure. Present on Admission?: Yes (7) Hypothyroidism: Stable, continue home dose of Levothyroxine 50 mcg PO daily. Present on Admission?: Yes (8) BPH (benign prostatic hyperplasia): Stable, continue home dose of tamsulosin 0.4mgPO HS. Present on Admission?: Yes (9) CAD (coronary artery disease): EKG abnormalities could be related to electrolyte imbalance related to ESRD. Continue telemetry. Consider TTE in AM and cardiology consult. Consider stress test after the acute phase of GI bleed. Present on Admission?: Yes (10) Hyperlipidemia LDL goal <70: Stable, continue Rosuvastatin 20 mg PO QPM. 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 Present on Admission?: Yes History of Present Illness Chief Complaint: Severe anemia and melena for 2 days. Primary Care Provider: Mhasa Wang DO Patient is a 78 years old male with past medical history of chronic diastolic congestive heart failure, diabetes mellitus type 2, end-stage renal disease, vascular dementia, IgG monoclonal gammopathy, obstructive sleep apnea, coronary artery disease, BPH, hypothyroidism who was sent from the dialysis today because his H&H was below 8, 7.7 and he reported having a black stool. Patient is at his usual health appears to be stable vital signs but complains of shortness of breath on longer distance. He also appears volume overload with lower extremities bilateral pitting edema 2+. Patient is compliant with his treatments in dialysis Saturday and Saturday his medication and diet. Labs are reviewed which showed:VBC of 3.98, hemoglobin 7.7, hematocrit 25.2, platelets 189, PT 11.7, INR 1.2, sodium 139, potassium 3.3, creatinine 3.94, GFR 13.9, AST 14, ALT 22, troponin 0.0 62. Patient denies fever, chills, headache, chest pain, shortness of breath at rest, abdominal pain, frequency, urgency, hemoptysis, hematemesis, hematochezia but complains of melena dark stool for 2 days. Patient had a EGD on February 15For the similar issue by Dr. Mando White gastroenterology and multiple bleeding on Feliz ectasis are found in the stomach. That was treated with argon plasma coagulation. No bleeding in the duodenal diverticulum. No specimen collected. Normal esophagus. Multiple gastric polyps. Discussed with Dr.Brian Bangura harvest crew supervisor from [facility] and he recommended to keep patient n.p.o. after midnight for the procedure EGD in the morning. Hold medical DVT prophylaxis such as anticoagulants. Patie nt is going to be admitted at PCU telemetry. Allergies Allergy/AdvReac Type Severity Reaction Status Date / Time tramadol AdvReac Severe disorented Verified 03/06/19 15:08 ,falling down metformin AdvReac Intermediate CONFUSION Verified 03/06/19 15:08 Home Medications Home Medications Medication Instructions Recorded Confirmed Type pantoprazole 40 mg PO BID #60 tab 04/23/18 03/05/19 Rx amlodipine 10 mg tablet 10 mg PO HS #90 tab 11/12/18 03/05/19 Rx labetalol 100 mg tablet 400 mg PO BID #720 tab 12/08/18 03/05/19 Rx doxazosin 1 mg tablet 1 mg PO DAILY #90 tab 12/23/18 03/05/19 Rx tamsulosin 0.4 mg PO HS #90 cap 01/02/19 03/05/19 Rx docusate sodium 100 mg capsule 200 mg PO QAM #30 cap 01/19/19 03/05/19 Rx furosemide 80 mg tablet 80 mg PO AMPM #60 tab 01/19/19 03/05/19 Rx insulin syringe U-100 with needle #10 ea 08/19/19 10/03/19 Rx 0.5 mL 30 gauge x 1/2" rosuvastatin 20 mg tablet 20 mg PO QPM #90 tab 01/19/19 03/05/19 Rx gabapentin 100 mg capsule 200 mg PO HS #60 cap 02/04/19 03/05/19 Rx Renal Caps 1 mg PO DAILY 02/15/19 03/05/19 History levothyroxine 50 mcg PO UD 02/15/19 03/05/19 History levothyroxine 200 mcg PO DAILY 02/15/19 03/05/19 History hydralazine 25 mg PO TIDM 30 Days #30 tab 02/18/19 03/05/19 Rx lisinopril 40 mg tablet 40 mg PO DAILY@1200 #90 tab 02/26/19 03/05/19 Rx Levemir U-100 Insulin 20 units SUBCUT HS 03/05/19 03/05/19 History Past Med/Surg History Medical History AVF (arteriovenous fistula) Hypnic jerks Uncontrolled daytime somnolence Hyperlipidemia LDL goal <70 Personal history of noncompliance with medical treatment, presenting hazards to health Cellulitis of left lower extremity without foot Volume overload Mitral regurgitation Anxiety Arthritis BMI 40.0-44.9, adult Chronic diastolic congestive heart failure Chronic kidney disease, stage IV (severe) 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, with long-term current use of insulin Depression Diabetic peripheral neuropathy ESRD (end stage renal disease) on dialysis Hiatal hernia with GERD without esophagitis Hearing difficulty IgG monoclonal gammopathy Memory loss Nephrotic syndrome Obstructive sleep apnea Occlusion and stenosis of unspecified carotid artery Osteoporosis Peripheral vascular disease Pulmonary hypertension Vitamin D deficiency Anemia Gastric ulcer CAD (coronary artery disease) BPH (benign prostatic hyperplasia) Hypothyroidism Hypertension Asthma Secondary hyperparathyroidism of renal origin COPD (chronic obstructive pulmonary disease) Acute on chronic respiratory failure (Resolved) Altered mental status (Resolved) Chest pain (Resolved) Elevated troponin (Resolved) Encephalopathy (Resolved) Epistaxis (Resolved) Fluid overload (Resolved) Hypertensive urgency (Resolved) Hypoxia (Resolved) Abnormal colonoscopy Surgical History H/O cardiac catheterization H/O esophagogastroduodenoscopy 02/16/19 [facility]- Dr. Mando White. 50mg propofol, no issues. H/O esophagogastroduodenoscopy 03/06/19 [facility] H/O hemorrhoidectomy Hx of cholecystectomy No pertinent past surgical history Family History Unknown Myocardial infarction Diabetes Mother Diabetes Gallbladder disease Hypertension Breast cancer late 70s Father Diabetes Hypertension Brother Diabetes Hypertension Kidney disease Social History Preferred Language: Gambian Communication Ability: Effective Book Sewer Required: No Beliefs That Will Affect Care: None marital status: Current Living Situation: Spouse current occupational status: employed current occupation: works part-time at [employer] Feels Safe at Home: Yes Smoking Status: Former smoker Tobacco Type: cigarettes ; Number of Years Since Quit: 25 ; Second Hand Exposure: No ; Hx Alcohol Use: No Hx Substance Use: No Childhood Exposure to Second-Hand Smoke: No caffeine: Yes Dental Care, Regularly: Yes Physical Activity Frequency Comment: limited due physical condition Seatbelt Use: sometimes Review of Systems Review of Systems: All systems reviewed & are unremarkable except as noted in HPI & below Physical Exam Constitutional: WD/WN, vitals as above well developed and + obese Eyes: PERRL, conjunctivae normal, anicteric sclerae ENMT: external ear and nose normal, oropharynx normal Neck: trachea midline, no thyromegaly Respiratory: normal respiratory effort, lungs clear to auscultation Cardiovascular: Heart Sounds: normal S1 and normal S2 Vessels: dorsalis pedis pulses present Extremities: + pedal edema (2+ pitting edema of the both lower extremities) Gastrointestinal (Abdomen): normal bowel sounds, soft, nontender, no hepatosplenomegaly Musculoskeletal: no cyanosis or clubbing, extremities motor strength 5/5 Skin: no rashes, warm and dry Neurologic: patellar DTR's 2+ bilat, sensation intact Genitourinary: no testicular masses, no penis abnormality Lymphatic: no cervical or axillary lymphadenopathy Results & Data Vital Signs (Past 12 Hours) Vital Signs Temp Pulse Pulse Resp BP BP Pulse Ox 03/05/19 17:02 36.7 C 63 18 93 03/05/19 16:35 36.8 C 63 18 169/76 H 93 03/05/19 16:16 61 18 161/57 H 93 03/05/19 15:45 36.8 C 58 L 20 156/54 H 92 03/05/19 15:29 36.4 C L 64 18 143/55 H 93 03/05/19 15:00 61 20 143/55 H 93 03/05/19 14:45 62 18 155/67 H 91 03/05/19 14:30 36.6 C 63 18 150/53 H 92 03/05/19 13:45 63 18 156/48 H 92 03/05/19 12:39 92 03/05/19 11:47 36.5 C 62 20 158/61 H 91 Code Status & VTE Plan Code Status Full code VTE Prophylaxis Plan VTE Prophylaxis will be ordered: No PG Care Time/CCT Total # of Minutes Spent Total Time Spent with Patient: Total time spent is greater than 50% in coordination of care (as documented) at patient's floor/unit and/or counseling patient: (1) BPH (benign prostatic hyperplasia) Lower urinary tract symptom presence: unspecified whether lower urinary tract symptoms present Qualified Code(s): N40.0 - Benign prostatic hyperplasia without lower urinary tract symptoms (2) GI bleed GI bleed type/associated pathology: unspecified gastrointestinal hemorrhage type Qualified Code(s): K92.2 - Gastrointestinal hemorrhage, unspecified (3) CAD (coronary artery disease) Associated angina: without angina Coronary Disease-Associated Artery/Lesion type: [place] artery [place] vs. transplanted heart: [place] heart Qualified Code(s): I25.10 - Atherosclerotic heart disease of [place] coronary artery without angina pectoris (4) Anemia Anemia type: unspecified type Qualified Code(s): D64.9 - Anemia, unspecified (5) Hypothyroidism Hypothyroidism type: acquired Qualified Code(s): E03.9 - Hypothyroidism, unspecified (6) Bursitis of right elbow Elbow bursitis location: unspecified Qualified Code(s): M70.31 - Other bursitis of elbow, right elbow
[2019-03-05] MEDS ORDERED: ONDANSETRON INJ 2 MG/ML 2 ML VIAL IV PRN (17:43)
[2019-03-05] MEDS ORDERED: POLYETHYLENE (MIRALAX) 17 GM PACK PO PRN (17:43)
[2019-03-05] MEDS ORDERED: ALUMINUM/MAGNESIUM SUSP 30 ML UDC PO PRN (17:43)
[2019-03-05] MEDS ORDERED: ZOLPIDEM TARTRATE 5 MG TAB PO PRN (17:43)
[2019-03-05] MEDS ORDERED: MAGNESIUM HYDROXIDE SUSP 30 ML UDC PO PRN (17:43)
[2019-03-05] MEDS ORDERED: ACETAMINOPHEN 325 MG TAB PO PRN (17:43)
[2019-03-05 17:59] LABS: Glucose Synovial Fluid 135 mg/dl
[2019-03-05 18:12] LABS: Total Protein Synovial Fluid 4 g/dl
[2019-03-05] MEDS ORDERED: GLUCOSE 10 TABS/TUBE PO PRN (18:15)
[2019-03-05] MEDS ORDERED: DEXTROSE 50% 50 ML SYRINGE IV PRN (18:15)
[2019-03-05] MEDS ORDERED: GLUCOSE 40% GEL 15 GM TUBE PO PRN (18:15)
[2019-03-05] MEDS ORDERED: GLUCAGON FOR INJ 1 MG VIAL IM PRN (18:15)
[2019-03-05] MEDS ORDERED: CARBOHYDRATES FOR HYPOGLYCEMIA PO PRN (18:15)
[2019-03-05 18:17] LABS: Appearance Synovial Fluid HAZY; Color Synovial Fluid RED; Mononuclear WBC Synovial 78.6 %; Polynuclear WBC Synovial 21.4 %; RBC Synovial Fluid (A) 48000 /uL; Source Synovial Fluid ELBOW; WBC Synovial Fluid (A) 388 /uL (0-200)
[2019-03-05] MEDS: FUROSEMIDE 80 MG TAB PO SCH (18:28)
[2019-03-05] MEDS: AMLODIPINE BESYLATE 5 MG TAB PO SCH (21:06)
[2019-03-05] MEDS: ROSUVASTATIN CALCIUM 20 MG TAB PO SCH (21:06)
[2019-03-05] MEDS: TAMSULOSIN HCL 0.4 MG CAP PO SCH (21:06)
[2019-03-05] MEDS: LABETALOL HCL 200 MG TAB PO SCH (21:07)
[2019-03-05] MEDS: GABAPENTIN 100 MG CAP PO SCH (21:07)
[2019-03-05] MEDS: INSULIN DETEMIR FLEXPEN/FLEX TOUCH 100 UNITS/ML 3ML SQ SCH (21:07)
--- NOTE | 2019-03-06 00:58 | Emergency Department Note ---
Entered by Irene Smith acting as a scribe for Nahum Perales MD History of Present Illness General Chief complaint: Referred by Doctor Stated complaint: FLUID IN RT ELBOW - BLEEDING Time Seen by Provider: 03/05/19 12:06 Source: patient and family History of Present Illness Onset (ago): day(s) (today) Severity: moderate (hemoglobin 7.7) Pain Consistency: + other (episode) Maximum Pain Intensity: 5 Quality: + other (referral) Associated symptoms: + denies other symptoms (new shortness of breath, congestion, diarrhea, leg swelling), + shortness of breath (chronic intermittent), + weakness and + other (melena, right elbow swelling and pain); no chest pain, no cough, no fever/chills and no nausea/vomiting The patient is a 78 year old male who presents to the Emergency Room with complaints of an episode of a referral by his dialysis doctor occurring today. The patients states that the patient was just inpatient in February for melena. She states that today, his dialysis doctor called and said that he needed to come to the ED because he has melena again and needs a blood transfusion. She states that his hemoglobin was 7.7 according to their labs. She reports that he has also needs to get his right elbow checked. The patients states that the patient had a slightly swollen right elbow when he was last here, but they told her it would go away. She states that since coming home it has gotten bigger and is now painful. The patient notes that he did finish dialysis and they took 4 L off today. He notes that he does still urinate a very small amount daily, but not much at all. The patient notes that he used to get shots at dialysis to keep his blood count up, but they stopped those. He notes that he doesnt know why. The patient complains of weakness and chronic intermittent shortness of breath. The patient denies remembering bumping his right elbow on anything, fever, chills, cough, congestion, new shortness of breath, chest pain, nausea, vomiting, diarrhea, and leg swelling. Home Medications Home Medications Medication Instructions Recorded Confirmed Type pantoprazole 40 mg PO BID #60 tab 04/23/18 03/05/19 Rx amlodipine 10 mg tablet 10 mg PO HS #90 tab 11/12/18 03/05/19 Rx labetalol 100 mg tablet 400 mg PO BID #720 tab 12/08/18 03/05/19 Rx doxazosin 1 mg tablet 1 mg PO DAILY #90 tab 12/23/18 03/05/19 Rx tamsulosin 0.4 mg PO HS #90 cap 01/02/19 03/05/19 Rx docusate sodium 100 mg capsule 200 mg PO QAM #30 cap 01/19/19 03/05/19 Rx furosemide 80 mg tablet 80 mg PO AMPM #60 tab 01/19/19 03/05/19 Rx insulin syringe U-100 with needle #10 ea 01/19/19 03/05/19 Rx 0.5 mL 30 gauge x 1/2" rosuvastatin 20 mg tablet 20 mg PO QPM #90 tab 01/19/19 03/05/19 Rx gabapentin 100 mg capsule 200 mg PO HS #60 cap 02/04/19 03/05/19 Rx Renal Caps 1 mg PO DAILY 02/15/19 03/05/19 History levothyroxine 50 mcg PO UD 02/15/19 03/05/19 History levothyroxine 200 mcg PO DAILY 02/15/19 03/05/19 History hydralazine 25 mg PO TIDM 30 Days #30 tab 02/18/19 03/05/19 Rx lisinopril 40 mg tablet 40 mg PO DAILY@1200 #90 tab 02/26/19 03/05/19 Rx Levemir U-100 Insulin 20 units SUBCUT HS 03/05/19 03/05/19 History Allergies Allergy/AdvReac Type Severity Reaction Status Date / Time tramadol AdvReac Severe disorented Verified 03/05/19 12:53 ,falling down metformin AdvReac Intermediate CONFUSION Verified 03/05/19 12:53 Past Med/Surg History Medical History AVF (arteriovenous fistula) Hypnic jerks Uncontrolled daytime somnolence Hyperlipidemia LDL goal <70 Personal history of noncompliance with medical treatment, presenting hazards to health Cellulitis of left lower extremity without foot Volume overload Mitral regurgitation Anxiety Arthritis BMI 40.0-44.9, adult Chronic diastolic congestive heart failure Chronic kidney disease, stage IV (severe) 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, with long-term current use of insulin Depression Diabetic peripheral neuropathy ESRD (end stage renal disease) on dialysis Hiatal hernia with GERD without esophagitis Hearing difficulty IgG monoclonal gammopathy Memory loss Nephrotic syndrome Obstructive sleep apnea Occlusion and stenosis of unspecified carotid artery Osteoporosis Peripheral vascular disease Pulmonary hypertension Vitamin D deficiency Anemia Gastric ulcer CAD (coronary artery disease) BPH (benign prostatic hyperplasia) Hypothyroidism Hypertension Asthma Secondary hyperparathyroidism of renal origin COPD (chronic obstructive pulmonary disease) Acute on chronic respiratory failure (Resolved) Altered mental status (Resolved) Chest pain (Resolved) Elevated troponin (Resolved) Encephalopathy (Resolved) Epistaxis (Resolved) Fluid overload (Resolved) Hypertensive urgency (Resolved) Hypoxia (Resolved) Abnormal colonoscopy Surgical History H/O cardiac catheterization H/O esophagogastroduodenoscopy 02/16/19 [facility] [place]- Dr. Mando White H/O hemorrhoidectomy Hx of cholecystectomy No pertinent past surgical history Family History Unknown Myocardial infarction Diabetes Mother Diabetes Gallbladder disease Hypertension Breast cancer late 70s Father Diabetes Hypertension Brother Diabetes Hypertension Kidney disease Social History Preferred Language: Vietnamese Communication Ability: Effective General Teller Required: No Beliefs That Will Affect Care: None marital status: Current Living Situation: Spouse current occupational status: employed current occupation: works part-time at [employer] Other Information That Helps Us Care for You: No Feels Safe at Home: Yes Safety Concerns: Feels Safe At This Time Smoking Status: Former smoker Tobacco Type: cigarettes ; Number of Years Since Quit: 25 ; Second Hand Exposure: No ; Hx Alcohol Use: No Hx Substance Use: No Childhood Exposure to Second-Hand Smoke: No caffeine: Yes Dental Care, Regularly: Yes Physical Activity Frequency Comment: limited due physical condition Seatbelt Use: sometimes Review of Systems See HPI for pertinent positives & negatives. and A total of 10 systems reviewed and were otherwise negative Physical Exam Vital Signs Vital Signs - 24 hr 03/05/19 11:47 03/05/19 12:39 03/05/19 13:45 Temperature 36.5 C Temperature Source Oral Sepsis Recent Fever Within 48 Hours No Sepsis Action Taken by Nursing No Action Required Pulse Rate 62 Pulse Rate [Apical] 63 Pulse Rhythm Regular Pulse Strength Normal Respiratory Rate 20 18 Respiratory Effort / Characteristics Non-Labored Spontaneous Non-Labored Spontaneous Respiratory Depth Normal Normal Respiratory Pattern Regular Blood Pressure 158/61 H Blood Pressure [Right Arm] 156/48 H Blood Pressure Mean 93 Blood Pressure Mean [Right Arm] 84 Blood Pressure Position Sitting Pulse Oximetry 91 92 92 Oxygen Delivery Method Room Air Room Air Room Air 03/05/19 14:30 03/05/19 14:45 03/05/19 15:00 Temperature 36.6 C Temperature Source Oral Sepsis Recent Fever Within 48 Hours Sepsis Action Taken by Nursing Pulse Rate 63 62 61 Pulse Rate [Apical] Pulse Rhythm Pulse Strength Respiratory Rate 18 18 20 Respiratory Effort / Characteristics Respiratory Depth Respiratory Pattern Blood Pressure 150/53 H 155/67 H 143/55 H Blood Pressure [Right Arm] Blood Pressure Mean 85 96 84 Blood Pressure Mean [Right Arm] Blood Pressure Position Sitting Pulse Oximetry 92 91 93 Oxygen Delivery Method 03/05/19 15:29 03/05/19 15:45 03/05/19 16:16 Temperature 36.4 C L 36.8 C Temperature Source Oral Oral Sepsis Recent Fever Within 48 Hours Sepsis Action Taken by Nursing Pulse Rate 64 58 L 61 Pulse Rate [Apical] Pulse Rhythm Pulse Strength Respiratory Rate 18 20 18 Respiratory Effort / Characteristics Respiratory Depth Respiratory Pattern Blood Pressure 143/55 H 156/54 H 161/57 H Blood Pressure [Right Arm] Blood Pressure Mean 84 88 91 Blood Pressure Mean [Right Arm] Blood Pressure Position Sitting Pulse Oximetry 93 92 93 Oxygen Delivery Method 03/05/19 16:35 Temperature 36.8 C Temperature Source Oral Sepsis Recent Fever Within 48 Hours Sepsis Action Taken by Nursing Pulse Rate 63 Pulse Rate [Apical] Pulse Rhythm Pulse Strength Respiratory Rate 18 Respiratory Effort / Characteristics Respiratory Depth Respiratory Pattern Blood Pressure 169/76 H Blood Pressure [Right Arm] Blood Pressure Mean 107 Blood Pressure Mean [Right Arm] Blood Pressure Position Sitting Pulse Oximetry 93 Oxygen Delivery Method GENERAL: Awake, alert, chronically ill-appearing, in no distress HENT: Normocephalic, atraumatic. Oropharynx with dry mucous membranes and otherwise unremarkable. EYES: Normal conjunctiva. Sclera non-icteric. NECK: Supple. No nuchal rigidity. FROM. No JVD. RESPIRATORY: Clear to auscultation bilaterally. CARDIAC: Regular rate, normal rhythm. Extremities warm and well perfused. Pulses equal. ABDOMEN: Soft, non-distended. No tenderness to palpation. No rebound or guarding. No masses. RECTAL: Scant brownish discharge that is guaiac positive. No gross melena or red blood. MUSCULOSKELETAL: Chest examination reveals no tenderness. The back is symmet rical on inspection without obvious abnormality. There is no CVA tenderness to palpation. Moderate swelling of the right olecranon bursa with fluctuance. No erythema, warmth, or tenderness. Distal PMS intact. LOWER EXTREMITIES: Calves are equal size bilaterally and non-tender. No edema. No discoloration. NEURO: Normal sensorium. No sensory or motor deficits noted. SKIN: No rash or jaundice noted. Procedures Bursa Procedures Time Out Performed: Yes (verbal consent) Side of body: right Site of Procedure: olecranon bursa XRAY Obtained: none Antisepsis Used: Povidone-Iodine1% Local Anesthetic: lidocaine 1% and with epi Amount of anesthesia used (mL): 2 Fluid obtained (mL): 20 Fluid Type: other (serosanguineous) Patient Tolerated Procedure: well Complications: none Course 1210: Past medical records reviewed. The patient was evaluated in room C2B. A complete history and physical exam was performed. 1348: I discussed the patient's case with Dr. Campbell Bed Laborer. She is concerned that his H&H is drifting downward and the patient is till reporting black stools. She doesn't think it can be just chalked up to anemia from his renal disease because of it. 1420: I reevaluated the patient and updated him on his test results. I recommended admission and he will deliberate with his family about it. I consented him at this time for a blood transfusion. 1455: I reevaluated the patient and he is agreeable to staying. 1503: I discussed the patient's case with Dr. Lamberto BRIDGES Hospitalist. She will evaluate the patient for further management. 1605: I performed a bursitis drainage on his right olecranon at this time. See procedure note. Consultations Consultation #1: I discussed the patient's case with Dr. Campbell Bed Laborer. She is concerned that his H&H is drifting downward and the patient is till reporting black stools. She doesn't think it can be just chalked up to anemia from his renal disease because of it. Time: 13:48 Consultation #2: I discussed the patient's case with Dr. Lamberto WOODG Hospitalist. She will evaluate the patient for further management. Time: 15:03 Administered Medications Amlodipine Besylate (Norvasc) 10 mg PO HS SHANTA Stop: 04/04/19 20:59 Last Admin: 03/05/19 21:06 Dose: 10 mg Documented by: [id number] Furosemide (Lasix) 80 mg PO BID17 SHANTA Stop: 04/04/19 17:42 Last Admin: 03/05/19 18:28 Dose: 80 mg Documented by: [id number] Gabapentin (Neurontin) 200 mg PO HS SHANTA Stop: 04/04/19 20:59 Last Admin: 03/05/19 21:07 Dose: 200 mg Documented by: [id number] Hydralazine HCl (Apresoline) 25 mg PO TIDM SHANTA Stop: 04/04/19 17:42 Last Admin: 03/05/19 18:28 Dose: 25 mg Documented by: [id number] Pantoprazole Sodium 40 mg/ (Dextrose) 100 mls @ 20 mls/hr IV Q5H SHANTA Stop: 04/04/19 15:29 Last Admin: 03/05/19 21:10 Dose: 20 mls/hr Documented by: [id number] Infusion: 03/05/19 21:10 Dose: 20 mls/hr Documented by: [id number] Admin: 03/05/19 16:45 Dose: 20 mls/hr Documented by: [id number] Insulin Detemir (Levemir Flextouch) 20 units SQ HS SHANTA Stop: 04/04/19 20:59 Last Admin: 03/05/19 21:07 Dose: 20 units Documented by: [id number] Cosigned by: [id number] Labetalol HCl (Normodyne) 400 mg PO BID SHANTA Stop: 04/04/19 20:59 Last Admin: 03/05/19 21:07 Dose: 400 mg Documented by: [id number] Rosuvastatin Calcium (Crestor) 20 mg PO QPM SHANTA Stop: 04/04/19 20:59 Last Admin: 03/05/19 21:06 Dose: 20 mg Documented by: [id number] Tamsulosin HCl (Flomax) 0.4 mg PO HS SHANTA Stop: 04/04/19 20:59 Last Admin: 03/05/19 21:06 Dose: 0.4 mg Documented by: [id number] Discontinued Medications Pantoprazole Sodium 80 mg/ (Dextrose) 120 mls @ 480 mls/hr IV NOW ONE Stop: 03/05/19 15:29 Last Infusion: 03/05/19 17:13 Dose: 0 mls/hr Documented by: [id number] Admin: 03/05/19 16:15 Dose: 480 mls/hr Documented by: [id number] Lidocaine/Epinephrine (Buffered Xylocaine/Epinephrine 1%) 20 ml INFIL NOW ONE Stop: 03/05/19 12:20 Last Admin: 03/05/19 13:12 Dose: 20 ml Documented by: [id number] Medical Decision Making Differential Diagnosis Differential Diagnosis includes but is not limited to dehydration, stroke, anemia, hypoglycemia, hyponatremia, hypernatremia, urinary tract infection, pneumonia, bronchitis, sepsis, gastroenteritis, additional abdominal pathology, metabolic abnormalities and infections. Medical Records Attestation: I reviewed the patient's medical records. Home Medications Current Medication List: was personally reviewed by me Laboratory Data Attestation: I reviewed the patient's lab results. Result diagrams: 03/05/19 12:36 03/05/19 12:36 Lab Results 03/05/19 03/05/19 03/05/19 Range/Units 12:36 12:36 12:36 WBC 3.98 L (4.8-10.8) K/uL RBC 2.74 L (4.7-6.1) M/uL Hgb 7.7 L (14.0-18.0) g/dL Hct 25.2 L (42-52) % MCV 92.0 (80-100) fL MCH 28.1 (25-34) pg MCHC 30.6 L (32-36) g/dL RDW Std Deviation 61.5 H (36.4-46.3) fL RDW Coeff of Jose C 18.9 H (11.5-14.5) % Plt Count 189 (130-400) K/uL MPV 9.7 (7.4-10.4) fL Immature Gran % (Auto) 0.5 % Neut % (Auto) 73.6 % Lymph % (Auto) 11.3 % [place] % (Auto) 10.6 % Eos % (Auto) 3.0 % Baso % (Auto) 1.0 % Immature Gran # (Auto) 0.02 (0.00-0.02) K/uL Neut # (Auto) 2.93 (1.4-6.5) K/uL Lymph # (Auto) 0.45 L (1.2-3.4) K/uL [place] # (Auto) 0.42 (0.11-0.59) K/uL Eos # (Auto) 0.12 (0-0.5) K/uL Baso # (Auto) 0.04 (0-0.2) K/uL Anisocytosis Present PT 11.7 (9.0-12.0) Seconds INR 1.2 H (0.9-1.1) Sodium 139 (136-145) mmol/L Potassium 3.3 L (3.5-5.1) mmol/L Chloride 100 (98-107) mmol/L Carbon Dioxide 33 H (21-32) mmol/L Anion Gap 6.0 (3-11) BUN 28 H (7-18) mg/dl Creatinine 3.94 H (0.6-1.4) mg/dl Est Cr Clr Drug Dosing Not Reportable Est GFR ( Amer) 16.1 Est GFR (Non-Af Amer) 13.9 BUN/Creatinine Ratio 7.2 L (10-20) Glucose 184 H (70-99) mg/dl Calcium 9.2 (8.5-10.1) mg/dl Phosphorus 3.3 (2.5-4.9) mg/dl Magnesium 1.9 (1.8-2.4) mg/dl Total Bilirubin 0.6 (0.2-1) mg/dl Direct Bilirubin 0.2 (0-0.2) mg/dl AST 14 L (15-37) U/L ALT 22 (12-78) U/L Alkaline Phosphatase 159 H (45-117) U/L Troponin I 0.062 H* (0-0.045) ng/ml NT-Pro-B Natriuret Pep (0-1800) pg/ml Total Protein 6.7 (6.4-8.2) gm/dl Albumin 3.3 L (3.4-5.0) gm/dl Globulin 3.4 (2.5-4.0) gm/dl Albumin/Globulin Ratio 1.0 (0.9-2) Lipase 199 (73-393) U/L Blood Type Antibody Screen Crossmatch 03/05/19 03/05/19 Range/Units 12:36 12:36 WBC (4.8-10.8) K/uL RBC (4.7-6.1) M/uL Hgb (14.0-18.0) g/dL Hct (42-52) % MCV (80-100) fL MCH (25-34) pg MCHC (32-36) g/dL RDW Std Deviation (36.4-46.3) fL RDW Coeff of Jose C (11.5-14.5) % Plt Count (130-400) K/uL MPV (7.4-10.4) fL Immature Gran % (Auto) % Neut % (Auto) % Lymph % (Auto) % [place] % (Auto) % Eos % (Auto) % Baso % (Auto) % Immature Gran # (Auto) (0.00-0.02) K/uL Neut # (Auto) (1.4-6.5) K/uL Lymph # (Auto) (1.2-3.4) K/uL [place] # (Auto) (0.11-0.59) K/uL Eos # (Auto) (0-0.5) K/uL Baso # (Auto) (0-0.2) K/uL Anisocytosis PT (9.0-12.0) Seconds INR (0.9-1.1) Sodium (136-145) mmol/L Potassium (3.5-5.1) mmol/L Chloride (98-107) mmol/L Carbon Dioxide (21-32) mmol/L Anion Gap (3-11) BUN (7-18) mg/dl Creatinine (0.6-1.4) mg/dl Est Cr Clr Drug Dosing Est GFR ( Amer) Est GFR (Non-Af Amer) BUN/Creatinine Ratio (10-20) Glucose (70-99) mg/dl Calcium (8.5-10.1) mg/dl Phosphorus (2.5-4.9) mg/dl Magnesium (1.8-2.4) mg/dl Total Bilirubin (0.2-1) mg/dl Direct Bilirubin (0-0.2) mg/dl AST (15-37) U/L ALT (12-78) U/L Alkaline Phosphatase (45-117) U/L Troponin I (0-0.045) ng/ml NT-Pro-B Natriuret Pep 97900 H (0-1800) pg/ml Total Protein (6.4-8.2) gm/dl Albumin (3.4-5.0) gm/dl Globulin (2.5-4.0) gm/dl Albumin/Globulin Ratio (0.9-2) Lipase (73-393) U/L Blood Type B Positive Antibody Screen NEGATIVE Crossmatch See Detail Imaging Data Radiologist's Impression: Radiology results as stated below per my review and the radiologist's interpretation: XR chest 1V portable HISTORY: Atypical Chest Pain COMPARISON: Chest 12/22/2018. FINDINGS: There are low lung volumes. The heart remains mildly enlarged. No new focal lung consolidations to suggest pneumonia. Stable mild interstitial thickening which is likely chronic. No evidence for pulmonary edema. A few bibasilar linear densities favor subsegmental atelectasis. IMPRESSION: No significant change compared to the prior study. No acute process. Stable mild cardiomegaly. Electronically signed by: Jose C Jaeger M.D. 03/05/2019 12:28 PM ECG Data Attestation: I personally reviewed and interpreted this ECG as follows: Indication: weakness Rate (beats per minute): 64 Rhythm: sinus rhythm Findings: + other (P wave abnormality, nonspecific T wave abnormality), + 1st degree AV block and + RBBB Comparison ECG Date: from (02/15/2019) Change: no significant change Blood Pressure Blood Pressure Findings: Elevated blood pressure Blood Pressure Disposition: [facility] pleasant 78-year-old gentleman with a past medical history of end-stage renal disease on hemodialysis with chronic anemia who presents emergency department referred by steeping press operator for blood transfusion for low H&H on his dialysis lab work today in the setting of his report of persistent black stool per HPI. Additionally he reports he was instructed to have drainage of a right olecranon bursitis which has been there per the patient for several weeks but has gradually increased in size. Patient reports some generalized fatigue that waxes and wanes but is not significantly different from his baseline. He also reports waxing and waning shortness of breath which also is not s ignificantly from his baseline. The patient was admitted from 02/15-9/18 for low H&H that went as low as 6.6 with subsequent EGD on 02/15 that demonstrated gastric polys and recently bleeding angioectasias in the stomach, which were treated with argon plasma coagulation. On arrival the patient is in NAD, AFVSS. Patient has oderate swelling of the right olecranon bursa with fluctuance. No erythema, warmth, or tenderness. Abdomen is benign. Rectal exam demonstrates scant brown stool that is guaiac positive. No gross melena or blood. EKG without evidence of acute ischemia and similar to prior. CXR negative for acute process. WBC 3.9 similar to prior range of values. H/H 7.7/2.52 with slight down trend from discharge or Hbg 8.3 and platelets wnl. Chemistry without acidosis and otherwise c/w patient's ESRD with Cr. 3.9. Troponin 0.062 in the setting of patient's ESRD and similar to improved from prior chronic elevations. Case was d/w Dr. Peña, patient's steeping press operator and recommends transfusion and further evaluation of patient's report of his persistent melena in the setting of downtrending H/H. Thus, reasonable to admit for further management including trending of H/H and monitoring of stool as well as GI consultation. Plan review with patient and he is agreeable. Patient consented for transfusion and ordered for 2 units PRBCs. Needle aspiration/draing of right olecranon bursa performed per procedure note. Fluid is serosanguinous c/w traumatic bursitis. Sent for cell counts and culture. Case d/w Dr. Jimenez, [facility] hospitalist, who will evaluate the patient for admission. Impression & Plan Anemia, GI bleed, Bursitis of right elbow, End-stage renal disease (ESRD) Critical Care Time Critical Care Time: Yes Total Critical Care Time: 75 I have personally spent greater than 75 minutes of critical care time in the direct management of this patient. This includes bedside care, interpretation of diagnostic studies, and testing, discussion with consultants, patient, and family members, and other required patient management activities. This 75 minutes is in excess of all separately billable procedures. Discharge Plan Visit Data *Final* Discharge Date/Time: 03/05/19 17:23 Chief Complaint: Referred by Doctor Stated Complaint: FLUID IN RT ELBOW - BLEEDING ED Provider: Nahum Perales Discharge Problem: Anemia, GI bleed, Bursitis of right elbow, End-stage renal disease (ESRD) Patient Disposition: Admitted As Inpatient Discharge Instructions Interventions: ED Discharge Assessment Last Done: 03/05/19 17:23 Discharge Problem: Anemia Qualifiers: Anemia type: unspecified type Qualified Code(s): D64.9 - Anemia, unspecified GI bleed Qualifiers: GI bleed type/associated pathology: unspecified gastrointestinal hemorrhage type Qualified Code(s): K92.2 - Gastrointestinal hemorrhage, unspecified Bursitis of right elbow Qualifiers: Elbow bursitis location: unspecified Qualified Code(s): M70.31 - Other bursitis of elbow, right elbow The scribe's documentation has been prepared under my direction and personally reviewed by me in its entirety. I confirm that the note above accurately reflects all work, treatment, procedures, and medical decision making performed by me.
[2019-03-06] MEDS: PANTOprazole 40 MG in DEXTROSE 5% 100 ML IV SCH ×4 (02:29→18:24)
[2019-03-06] MEDS: LEVOTHYROXINE SODIUM 200 MCG TABLET PO SCH (06:19)
[2019-03-06] MEDS: LEVOTHYROXINE SODIUM 50 MCG TABLET PO SCH (06:19)
[2019-03-06 07:27] LABS: Basophils # (auto) 0.03 K/uL (0-0.2); Basophils % (auto) 0.7 %; Eosinophils # (auto) 0.27 K/uL (0-0.5); Eosinophils % (auto) 6.4 %; Hematocrit (blood only) 28.7 % (42-52); Hemoglobin 8.8 g/dL (14.0-18.0); Immature Granulocytes # (auto) 0.01 K/uL (0.00-0.02); Immature Granulocytes % (auto) 0.2 %; Lymphocytes # (auto) 0.66 K/uL (1.2-3.4); Lymphocytes % (auto) 15.5 %; Mean Corpuscular Hemoglobin 28.2 pg (25-34); Mean Corpuscular Hgb Conc 30.7 g/dL (32-36); Mean Platelet Volume 10.4 fL (7.4-10.4); Monocytes # (auto) 0.39 K/uL (0.11-0.59); Monocytes % (auto) 9.2 %; Neutrophils # (auto) 2.89 K/uL (1.4-6.5); Platelet Count 179 K/uL (130-400); RDW Coefficient of Variation 18.5 % (11.5-14.5); RDW Standard Deviation 60.7 fL (36.4-46.3); Red Blood Count 3.12 M/uL (4.7-6.1); White Blood Count 4.25 K/uL (4.8-10.8)
[2019-03-06 08:21] LABS: Albumin Level 3.3 gm/dl (3.4-5.0); BUN Creatinine Ratio 8.3 (10-20); Bilirubin,Total 0.5 mg/dl (0.2-1); Calcium 9.2 mg/dl (8.5-10.1); Creatinine Clr Calc Pharmacy 13.2 ml/min; Est GFR (African American) 10.7; Est GFR (Non-African American) 9.2; Globulin 3.3 gm/dl (2.5-4.0); Potassium 3.6 mmol/L (3.5-5.1); Total Protein 6.6 gm/dl (6.4-8.2)
[2019-03-06] MEDS: LABETALOL HCL 200 MG TAB PO SCH ×2 (08:51→20:34)
[2019-03-06] MEDS: NEPHROCAPS PO SCH (08:51)
[2019-03-06] MEDS: FUROSEMIDE 80 MG TAB PO SCH ×2 (08:51→18:21)
[2019-03-06] MEDS: DOXAZOSIN MESYLATE 1 MG TAB PO SCH (08:51)
[2019-03-06] MEDS: DOCUSATE SODIUM 100 MG CAP PO SCH (08:52)
--- NOTE | 2019-03-06 09:58 | Nephrology Consultation ---
Date of Consultation March 06, 2019 Assessment & Plan (1) End-stage renal disease (ESRD): -- Patient was dialyzed yesterday without complication. -- Volume status and electrolyte balance are acceptable at this time. No acute indication for HD today -- Will schedule heparin free HD for am and maintain outpatient schedule (TTS 4hr 2K 2.5Ca F-200NR EDW 98 kg) (2) Anemia: -- Await GI evaluation -- Will order iron studies and provide NEMESIO w/ HD (3) Hypertension: -- Blood pressure control is reasonable. Continue current medical regimen and monitor History of Present Illness Reason for Consultation: ESRD Attending Physician: Prashanth Rainey MD History of Present Illness Mr. Mcintyre is a 78 year old white male who is seen at the request of Dr. Rainey to provide inpatient HD and assist w/ medical management. Medical records in the EMR were reviewed today and are summarized as follows: Mr. Mcintyre has ESRD due to diabetic nephropathy. He has been on IHD since 12/16 ([facility] [place] TTS 4hr 2K 2.5Ca F-200NR EDW 98 kg - primary [employer] Dr. Briceno). His medical history is significant for HTN, AODM, vascular dementia, IgG monoclonal gammopathy, EFREN, BPH, hypothyroidism, and CHF w/ diastolic dysfunction. Mr. Mcintyre was last hospitalized 02/16 - 02/18/19 for evaluation of melena. GI evaluation revealed that he had been taking Pepto-Bismol and oral iron. EGD revealed gastric varices which were cauterized. Mr. Mcintyre was transfused 3 U PRBC during his hospitalization. Since discharge from the hospital Mr. Mcintyre reports continued melena. He was dialyzed at his outpatient unit yesterday without complication. He complained of melena and H&H were drawn. Hgb was 7.7 so patient was referred to ED for admission. Allergies Allergy/AdvReac Type Severity Reaction Status Date / Time tramadol AdvReac Severe disorented Verified 03/05/19 12:53 ,falling down metformin AdvReac Intermediate CONFUSION Verified 03/05/19 12:53 Home Medications Home Medications Medication Instructions Recorded Confirmed Type pantoprazole 40 mg PO BID #60 tab 04/23/18 03/05/19 Rx amlodipine 10 mg tablet 10 mg PO HS #90 tab 11/12/18 03/05/19 Rx labetalol 100 mg tablet 400 mg PO BID #720 tab 12/08/18 03/05/19 Rx doxazosin 1 mg tablet 1 mg PO DAILY #90 tab 12/23/18 03/05/19 Rx tamsulosin 0.4 mg PO HS #90 cap 01/02/19 03/05/19 Rx docusate sodium 100 mg capsule 200 mg PO QAM #30 cap 01/19/19 03/05/19 Rx furosemide 80 mg tablet 80 mg PO AMPM #60 tab 01/19/19 03/05/19 Rx insulin syringe U-100 with needle #10 ea 01/19/19 03/05/19 Rx 0.5 mL 30 gauge x 1/2" rosuvastatin 20 mg tablet 20 mg PO QPM #90 tab 01/19/19 03/05/19 Rx gabapentin 100 mg capsule 200 mg PO HS #60 cap 02/04/19 03/05/19 Rx Renal Caps 1 mg PO DAILY 02/15/19 03/05/19 History levothyroxine 50 mcg PO UD 02/15/19 03/05/19 History levothyroxine 200 mcg PO DAILY 02/15/19 03/05/19 History hydralazine 25 mg PO TIDM 30 Days #30 tab 02/18/19 03/05/19 Rx lisinopril 40 mg tablet 40 mg PO DAILY@1200 #90 tab 02/26/19 03/05/19 Rx Levemir U-100 Insulin 20 units SUBCUT HS 03/05/19 03/05/19 History Patient History Medical History AVF (arteriovenous fistula) Hypnic jerks Uncontrolled daytime somnolence Hyperlipidemia LDL goal <70 Personal history of noncompliance with medical treatment, presenting hazards to health Cellulitis of left lower extremity without foot Volume overload Mitral regurgitation Anxiety Arthritis BMI 40.0-44.9, adult Chronic diastolic congestive heart failure Chronic kidney disease, stage IV (severe) 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, with long-term current use of insulin Depression Diabetic peripheral neuropathy ESRD (end stage renal disease) on dialysis Hiatal hernia with GERD without esophagitis Hearing difficulty IgG monoclonal gammopathy Memory loss Nephrotic syndrome Obstructive sleep apnea Occlusion and stenosis of unspecified carotid artery Osteoporosis Peripheral vascular disease Pulmonary hypertension Vitamin D deficiency Anemia Gastric ulcer CAD (coronary artery disease) BPH (benign prostatic hyperplasia) Hypothyroidism Hypertension Asthma Secondary hyperparathyroidism of renal origin COPD (chronic obstructive pulmonary disease) Acute on chronic respiratory failure (Resolved) Altered mental status (Resolved) Chest pain (Resolved) Elevated troponin (Resolved) Encephalopathy (Resolved) Epistaxis (Resolved) Fluid overload (Resolved) Hypertensive urgency (Resolved) Hypoxia (Resolved) Abnormal colonoscopy Surgical History H/O cardiac catheterization H/O esophagogastroduodenoscopy 02/16/19 [facility]- Dr. Mando White H/O hemorrhoidectomy Hx of cholecystectomy No pertinent past surgical history Family History Unknown Myocardial infarction Diabetes Mother Diabetes Gallbladder disease Hypertension Breast cancer late 70s Father Diabetes Hypertension Brother Diabetes Hypertension Kidney disease Social History Preferred Language: Palestinian Communication Ability: Effective Ocular Care Technologist Required: No Beliefs That Will Affect Care: None marital status: Current Living Situation: Spouse current occupational status: employed current occupation: works part-time at [employer] Other Information That Helps Us Care for You: No Feels Safe at Home: Yes Safety Concerns: Feels Safe At This Time Smoking Status: Former smoker Tobacco Type: cigarettes ; Number of Years Since Quit: 25 ; Second Hand Exposure: No ; Hx Alcohol Use: No Hx Substance Use: No Childhood Exposure to Second-Hand Smoke: No caffeine: Yes Dental Care, Regularly: Yes Physical Activity Frequency Comment: limited due physical condition Seatbelt Use: sometimes Review of Systems Constitutional: + weakness; no fever and no chills Eyes: no worsening vision and no problem reported Ear, Nose, Mouth, Throat: no problem reported Respiratory: no cough and no dyspnea Cardiovascular: no chest pain, no palpitations and no edema Gastrointestinal: no abdominal pain, no nausea, no vomiting and no diarrhea/loose stools Genitourinary: no dysuria, no urinary hesitancy and no hematuria Musculoskeletal: no back pain Integumentary: no rash Neurologic: no falls and no dizziness Physical Exam Constitutional: + ill appearing Eyes: PERRL, conjunctivae normal, anicteric sclerae ENMT: external ear and nose normal, oropharynx normal Neck: trachea midline, no thyromegaly Respiratory: normal respiratory effort, lungs clear to auscultation Cardiovascular: RRR, no murmur, no edema Extremities: + AV fistula (+ bruit) Gastrointestinal (Abdomen): normal bowel sounds, soft, nontender, no hepatosplenomegaly Musculoskeletal: Extremities: no cyanosis Skin: no rashes, warm and dry Neurologic: awake; not confused Results & Data Vital Signs (Past 12 Hours) Vital Signs Temp Pulse Resp BP Pulse Ox 03/06/19 07:19 36.4 C L 56 L 20 164/66 H 94 03/06/19 03:38 36.7 C 54 L 18 160/67 H 92 03/05/19 23:42 36.8 C 57 L 20 165/75 H 93 PG Care Time/CCT Total # of Minutes Spent Total Time Spent with Patient: Total time spent is greater than 50% in coordination of care (as documented) at patient's floor/unit and/or counseling patient: (1) Anemia Anemia type: unspecified type Qualified Code(s): D64.9 - Anemia, unspecified (2) Hypertension Hypertension type: essential hypertension Qualified Code(s): I10 - Essential (primary) hypertension
--- NOTE | 2019-03-06 10:39 | Anesthesiology Consultation ---
Date of Service March 06, 2019 History Surgery Operation Date: 03/06/19 08:30 Proposed Procedures p Esophagogastroduodenoscopy Dr Bangura - Terrence Bangura Height/Weight Height: 6 ft 2 in Weight: 98.3 kg Allergies Allergy/AdvReac Type Severity Reaction Status Date / Time tramadol AdvReac Severe disorented Verified 03/05/19 12:53 ,falling down metformin AdvReac Intermediate CONFUSION Verified 03/05/19 12:53 Medications Home Medications Medication Instructions Recorded Confirmed Last Taken pantoprazole 40 mg PO BID #60 tab 04/23/18 03/05/19 03/05/19 amlodipine 10 mg tablet 10 mg PO HS #90 tab 11/12/18 03/05/19 03/04/19 labetalol 100 mg tablet 400 mg PO BID #720 tab 12/08/18 03/05/19 03/05/19 doxazosin 1 mg tablet 1 mg PO DAILY #90 tab 12/23/18 03/05/19 03/04/19 tamsulosin 0.4 mg PO HS #90 cap 01/02/19 03/05/19 03/04/19 docusate sodium 100 mg capsule 200 mg PO QAM #30 cap 01/19/19 03/05/19 03/05/19 furosemide 80 mg tablet 80 mg PO AMPM #60 tab 01/19/19 03/05/19 03/05/19 insulin syringe U-100 with needle #10 ea 01/19/19 03/05/19 Unknown 0.5 mL 30 gauge x 1/2" rosuvastatin 20 mg tablet 20 mg PO QPM #90 tab 01/19/19 03/05/19 03/04/19 gabapentin 100 mg capsule 200 mg PO HS #60 cap 02/04/19 03/05/19 03/04/19 Renal Caps 1 mg PO DAILY 02/15/19 03/05/19 03/04/19 levothyroxine 50 mcg PO UD 02/15/19 03/05/19 03/05/19 levothyroxine 200 mcg PO DAILY 02/15/19 03/05/19 03/05/19 hydralazine 25 mg PO TIDM 30 Days #30 tab 02/18/19 03/05/19 03/05/19 lisinopril 40 mg tablet 40 mg PO DAILY@1200 #90 tab 02/26/19 03/05/19 03/04/19 Levemir U-100 Insulin 20 units SUBCUT HS 03/05/19 03/05/19 03/04/19 Active Medications Generic Name Dose Route Start Last Admin Trade Name Sharon PRN Reason Stop Dose Admin Amlodipine Besylate 10 mg 03/05/19 21:00 03/05/19 21:06 Norvasc PO 04/04/19 20:59 10 mg HS SHANTA Administration Docusate Sodium 200 mg 03/06/19 09:00 03/06/19 08:52 Colace PO 04/05/19 08:59 200 mg QAM SHANTA Administration Doxazosin Mesylate 1 mg 03/06/19 09:00 03/06/19 08:51 Cardura PO 04/05/19 08:59 1 mg DAILY SHANTA Administration Furosemide 80 mg 03/05/19 17:43 03/06/19 08:51 Lasix PO 04/04/19 17:42 80 mg BID17 SHANTA Administration Gabapentin 200 mg 03/05/19 21:00 03/05/19 21:07 Neurontin PO 04/04/19 20:59 200 mg HS SHANTA Administration Hydralazine HCl 25 mg 03/05/19 17:43 03/06/19 08:51 Apresoline PO 04/04/19 17:42 25 mg TIDM SHANTA Administration Pantoprazole Sodium 40 mg/ 100 mls @ 20 mls/hr 03/05/19 15:30 03/06/19 06:18 Dextrose IV 04/04/19 15:29 20 mls/hr Q5H SHANTA Administration Insulin Detemir 20 units 03/05/19 21:00 03/05/19 21:07 Levemir Flextouch SQ 04/04/19 20:59 20 units HS SHANTA Administration Labetalol HCl 400 mg 03/05/19 21:00 03/06/19 08:51 Normodyne PO 04/04/19 20:59 400 mg BID SHANTA Administration Levothyroxine Sodium 50 mcg 03/06/19 06:30 03/06/19 06:19 Synthroid PO 04/05/19 06:29 50 mcg DAILYBB SHANTA Administration Levothyroxine Sodium 200 mcg 03/06/19 06:30 03/06/19 06:19 Synthroid PO 04/05/19 06:29 200 mcg DAILYBB SHANTA Administration Rosuvastatin Calcium 20 mg 03/05/19 21:00 03/05/19 21:06 Crestor PO 04/04/19 20:59 20 mg QPM SHANTA Administration Tamsulosin HCl 0.4 mg 03/05/19 21:00 03/05/19 21:06 Flomax PO 04/04/19 20:59 0.4 mg HS SHANTA Administration Vitamin B Complex/Folic Acid 1 cap 03/06/19 09:00 03/06/19 08:51 Nephrocaps PO 04/05/19 08:59 1 cap DAILY SHANTA Administration Past Medical History Medical History AVF (arteriovenous fistula) Hypnic jerks Uncontrolled daytime somnolence Hyperlipidemia LDL goal <70 Personal history of noncompliance with medical treatment, presenting hazards to health Cellulitis of left lower extremity without foot Volume overload Mitral regurgitation Anxiety Arthritis BMI 40.0-44.9, adult Chronic diastolic congestive heart failure Chronic kidney disease, stage IV (severe) 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, with long-term current use of insulin Depression Diabetic peripheral neuropathy ESRD (end stage renal disease) on dialysis Hiatal hernia with GERD without esophagitis Hearing difficulty IgG monoclonal gammopathy Memory loss Nephrotic syndrome Obstructive sleep apnea Occlusion and stenosis of unspecified carotid artery Osteoporosis Peripheral vascular disease Pulmonary hypertension Vitamin D deficiency Anemia Gastric ulcer CAD (coronary artery disease) BPH (benign prostatic hyperplasia) Hypothyroidism Hypertension Asthma Secondary hyperparathyroidism of renal origin COPD (chronic obstructive pulmonary disease) Acute on chronic respiratory failure (Resolved) Altered mental status (Resolved) Chest pain (Resolved) Elevated troponin (Resolved) Encephalopathy (Resolved) Epistaxis (Resolved) Fluid overload (Resolved) Hypertensive urgency (Resolved) Hypoxia (Resolved) Abnormal colonoscopy Exercise / Class Metabolic Activity III < 4 Walking/Shop/Light housework Past Family History Family History Unknown Myocardial infarction Diabetes Mother Diabetes Gallbladder disease Hypertension Breast cancer late 70s Father Diabetes Hypertension Brother Diabetes Hypertension Kidney disease Past Surgical History Surgical History H/O cardiac catheterization H/O esophagogastroduodenoscopy 02/16/19 [facility]- Dr. Mando White. 50mg propofol, no issues. H/O hemorrhoidectomy Hx of cholecystectomy No pertinent past surgical history Past Anesthesia History No Hx of Anesthesia Complications and No Family Hx of Anesthesia Complications History of PONV No Hx of PONV and No Hx of Motion Sickness Social History Smoking Status: Former smoker tobacco type: cigarettes Hx Alcohol Use: No Hx Substance Use: No substance use type: does not use Physical Exam Vital Signs Last Vital Signs Temp 36.4 C L 03/06/19 07:19 Pulse 56 L 03/06/19 07:19 Resp 20 03/06/19 07:19 BP 164/66 H 03/06/19 07:19 Pulse Ox 94 03/06/19 07:19 Testing Laboratory Results 03/06/19 07:03 03/06/19 07:03 PT 11.7 Seconds (9.0-12.0) 03/05/19 12:36 INR 1.2 (0.9-1.1) H 03/05/19 12:36 Blood Type B Positive 03/05/19 12:36 Antibody Screen NEGATIVE 03/05/19 12:36 03/05/19 17:17 Gram Stain - Final Elbow,Right 03/06/19 03/06/19 07:16 03:34 POC Glucose 85 100 H Electrocardiogram Date: 03/05/19 Findings: + NSR @ (64) Sinus rhythm with 1st degree A-V block Right bundle branch block T wave abnormality, consider inferolateral ischemia Abnormal ECG When compared with ECG of 15-FEB-2019 12:27, No significant change was found Confirmed by Martin Daugherty ([id number]) on 03/06/2019 5:31:26 AM
[2019-03-06] MEDS: lisinopriL 40 MG TAB PO SCH (10:56)
[2019-03-06 11:09] LABS: Iron 33 mcg/dl (35-175); Transferrin 247 mg/dl (200-360); Transferrin Percent Saturation 9 % (20-50)
[2019-03-06] MEDS ORDERED: LIDOCAINE HCL 2% 2 ML VIAL/AMP(20MG/ML) INFIL ONE (14:52)
[2019-03-06] MEDS ORDERED: PROPOFOL IV EMULSION 10 MG/ML 20 ML VIAL IV ONE (14:52)
--- NOTE | 2019-03-06 15:14 | Gastrointestinal Consultation ---
Date of Consultation March 06, 2019 Assessment & Plan (1) GI bleed: Plan EGD today to see if has rebleeding in UGI tract to explain. Procedure and risks explained to patient which include but not limited to med reaction, bleeding, perforation, aspiraiton. acute blood loss anemia- hx of duodenal polyp--none noted on most recent EGDs hx of colon polyps---most recent colo 08/2018 [place] History of Present Illness Reason for Consultation: Anemia, melena Requesting Physician: DR Prashanth Rainey Attending Physician: Prashanth Rainey MD History of Present Illness CC black stools HPI Pt known to our service. 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 Hx of of colon polyps with most recent colonoscopy noted 08/2018 at [facility] had 5 tubular adenomas in TC and AC removed. She had EGD/SB enteroscopy ( to mid jejunum) at [facility] 08/2018 showing esophageal lipoma, multiple gastric polyps and gastric erythema path neg and duodenal diverticulum. He as just admitted for anemia and bleeding and had EGD by Dr White 02/15/19 showing bleeding duodenal AVMS which were cauterized. Hgb noted 8.3 on 02/18/19. He was noted at dialysis to have Hgb 7.7. He states since DC he had few days of no blood in stools but then were black again. No abd pain. He was transfused and Hgb this am 8.8. Allergies Allergy/AdvReac Type Severity Reaction Status Date / Time tramadol AdvReac Severe disorented Verified 03/06/19 15:08 ,falling down metformin AdvReac Intermediate CONFUSION Verified 03/06/19 15:08 Home Medications Home Medications Medication Instructions Recorded Confirmed Type pantoprazole 40 mg PO BID #60 tab 04/23/18 03/05/19 Rx amlodipine 10 mg tablet 10 mg PO HS #90 tab 11/12/18 03/05/19 Rx labetalol 100 mg tablet 400 mg PO BID #720 tab 12/08/18 03/05/19 Rx doxazosin 1 mg tablet 1 mg PO DAILY #90 tab 12/23/18 03/05/19 Rx tamsulosin 0.4 mg PO HS #90 cap 01/02/19 03/05/19 Rx docusate sodium 100 mg capsule 200 mg PO QAM #30 cap 01/19/19 03/05/19 Rx furosemide 80 mg tablet 80 mg PO AMPM #60 tab 01/19/19 03/05/19 Rx insulin syringe U-100 with needle #10 ea 01/19/19 03/05/19 Rx 0.5 mL 30 gauge x 1/2" rosuvastatin 20 mg tablet 20 mg PO QPM #90 tab 01/19/19 03/05/19 Rx gabapentin 100 mg capsule 200 mg PO HS #60 cap 02/04/19 03/05/19 Rx Renal Caps 1 mg PO DAILY 02/15/19 03/05/19 History levothyroxine 50 mcg PO UD 02/15/19 03/05/19 History levothyroxine 200 mcg PO DAILY 02/15/19 03/05/19 History hydralazine 25 mg PO TIDM 30 Days #30 tab 02/18/19 03/05/19 Rx lisinopril 40 mg tablet 40 mg PO DAILY@1200 #90 tab 02/26/19 03/05/19 Rx Levemir U-100 Insulin 20 units SUBCUT HS 03/05/19 03/05/19 History Patient History Medical History AVF (arteriovenous fistula) Hypnic jerks Uncontrolled daytime somnolence Hyperlipidemia LDL goal <70 Personal history of noncompliance with medical treatment, presenting hazards to health Cellulitis of left lower extremity without foot Volume overload Mitral regurgitation Anxiety Arthritis BMI 40.0-44.9, adult Chronic diastolic congestive heart failure Chronic kidney disease, stage IV (severe) 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, with long-term current use of insulin Depression Diabetic peripheral neuropathy ESRD (end stage renal disease) on dialysis Hiatal hernia with GERD without esophagitis Hearing difficulty IgG monoclonal gammopathy Memory loss Nephrotic syndrome Obstructive sleep apnea Occlusion and stenosis of unspecified carotid artery Osteoporosis Peripheral vascular disease Pulmonary hypertension Vitamin D deficiency Anemia Gastric ulcer CAD (coronary artery disease) BPH (benign prostatic hyperplasia) Hypothyroidism Hypertension Asthma Secondary hyperparathyroidism of renal origin COPD (chronic obstructive pulmonary disease) Acute on chronic respiratory failure (Resolved) Altered mental status (Resolved) Chest pain (Resolved) Elevated troponin (Resolved) Encephalopathy (Resolved) Epistaxis (Resolved) Fluid overload (Resolved) Hypertensive urgency (Resolved) Hypoxia (Resolved) Abnormal colonoscopy Surgical History H/O cardiac catheterization H/O esophagogastroduodenoscopy 02/16/19 [facility]- Dr. Mando White. 50mg propofol, no issues. H/O hemorrhoidectomy Hx of cholecystectomy No pertinent past surgical history Family History Unknown Myocardial infarction Diabetes Mother Diabetes Gallbladder disease Hypertension Breast cancer late 70s Father Diabetes Hypertension Brother Diabetes Hypertension Kidney disease Social History Preferred Language: Czech Communication Ability: Effective Cotton Wringer Required: No Beliefs That Will Affect Care: None marital status: Current Living Situation: Spouse current occupational status: employed current occupation: works part-time at [employer] Other Information That Helps Us Care for You: No Feels Safe at Home: Yes Safety Concerns: Feels Safe At This Time Smoking Status: Former smoker Tobacco Type: cigarettes ; Number of Years Since Quit: 25 ; Second Hand Exposure: No ; Hx Alcohol Use: No Hx Substance Use: No Childhood Exposure to Second-Hand Smoke: No caffeine: Yes Dental Care, Regularly: Yes Physical Activity Frequency Comment: limited due physical condition Seatbelt Use: sometimes Review of Systems Review of Systems: All systems reviewed & are unremarkable except as noted in HPI & below Physical Exam Constitutional: WD/WN, vitals as above Eyes: PERRL, conjunctivae normal, anicteric sclerae ENMT: external ear and nose normal, oropharynx normal Respiratory: normal respiratory effort, lungs clear to auscultation Cardiovascular: Rate/Rhythm: regular rate bilateral edema Gastrointestinal (Abdomen): normal bowel sounds, soft, nontender, no hepatosplenomegaly Musculoskeletal: no cyanosis or clubbing, extremities motor strength 5/5 Neurologic: PERRL, EOMI, accommodation nl, no face palsy, no dysarthria Psychiatric: A+Ox3, euthymic affect Results & Data Vital Signs (Past 12 Hours) Vital Signs Temp Pulse Resp BP Pulse Ox 03/06/19 11:29 36.4 C L 55 L 22 147/62 H 89 L 03/06/19 07:19 36.4 C L 56 L 20 164/66 H 94 03/06/19 03:38 36.7 C 54 L 18 160/67 H 92 (1) GI bleed GI bleed type/associated pathology: unspecified gastrointestinal hemorrhage type Qualified Code(s): K92.2 - Gastrointestinal hemorrhage, unspecified
[2019-03-06] MEDS ORDERED: KETAMINE HCL INJ 50 MG/ML 10 ML VIAL ONE (15:28)
[2019-03-06] MEDS ORDERED: ePHEDrine sulfate 50 MG/ML SYR ONE (15:56)
[2019-03-06] MEDS ORDERED: SODIUM CHLORIDE 0.9% INJ 10 ML VIAL ONE (15:56)
--- NOTE | 2019-03-06 15:56 | GI REPORT ---
Patient Name: Darnell Mcintyre Procedure Date: 03/06/2019 3:27 PM Date of : 1940 Admit Type: Inpatient Age: 78 Gender: Male Attending MD: Terrence Bangura MD Procedure: Upper GI endoscopy Providers: Terrence Bangura MD Referring MD: Prashanth Rainey Md Indications: Iron deficiency anemia secondary to chronic blood loss, Melena Medicines: Monitored Anesthesia Care Complications: No immediate complications. Estimated blood loss: Minimal. Estimated Blood Loss: Estimated blood loss was minimal. Procedure: Pre-Anesthesia Assessment: - The risks and benefits of the procedure and the sedation options and risks were discussed with the patient. All questions were answered and informed consent was obtained. - Patient identification and proposed procedure were verified prior to the procedure by the physician, the nurse and the labor economics professor. The procedure was verified in the procedure room. After obtaining informed consent, the endoscope was passed under direct vision. Throughout the procedure, the patient's blood pressure, pulse, and oxygen saturations were monitored continuously. The Endoscope was introduced through the mouth, and advanced to the second part of duodenum. The upper GI endoscopy was accomplished without difficulty. The patient tolerated the procedure well. Procedure and risks explained to patient which include but not limited to medication reaction, bleeding, perforation, aspiration , and missed lesions. Judicious gas insufflation was used and gas removal done on the way out. The lumen was always visualized when advancing the scope. Prep was good. Washes and suctioning used as needed to get good visualization of the mucosa. Retroflexion to look at the fundus and cardia of the stomach and GE junction was done. Findings: The Z-line was regular and was found 45 cm from the incisors. A 2 cm hiatal hernia was present. Moderate gastric antral vascular ectasia with some fresh blood noted but no active bleeding was present in the gastric antrum. Coagulation for bleeding prevention using argon plasma was successful. I covered as much area in this session as I could Estimated blood loss was minimal. Multiple pedunculated and sessile polyps were found in the gastric fundus and in the gastric body. A diverticulum was found in the second portion of the duodenum. The exam was otherwise without abnormality. Impression: - Z-line regular, 45 cm from the incisors. - 2 cm hiatal hernia. - Gastric antral vascular ectasia with bleeding. Treated with argon plasma coagulation (APC). - Multiple gastric polyps. - Duodenal diverticulum. - The examination was otherwise normal. - No specimens collected. Recommendation: - Return patient to hospital cheema for ongoing care. - Continue PPI. Recommend repeat EGD in one month to continue to ablate any remaining GAVE. Terrence Bangura M.D. Terrence Bangura MD 03/06/2019 3:56:15 PM This report has been signed electronically. Note Initiated On: 03/06/2019 3:27 PM Number of Addenda: 0 I attest to the content of the Intraoperative Record and orders documented therein, exceptions below {[id number]}
--- NOTE | 2019-03-06 16:01 | Post Operative Brief Note ---
Immediate Post Op Note v1 Date of Surgery March 06, 2019 Pre & Post Diagnosis Operation Date: 03/06/19 08:30 Pre-Op Diagnosis: SEVERE ANEMIA,MELENA Post-Op Diagnosis: GAVE, DUODENAL DIVERTICULEM, HIATAL HERNIA, GASTRIC POLYPS Procedure Operation Date: 03/06/19 08:30 Actual Procedures p EGD Hemostasis - Terrence Bangura See full report. APC of GAVE which has stigmata of recent bleeding. Continue PPI but can switch to PO. Solid diet. Recommend repeat EGD as outpt to eradicate the GAVE. Surgeon Terrence Bangura Package Crimper see report Estimated Blood Loss 0 Findings Consistent with Post-Op Diagnosis
--- NOTE | 2019-03-06 16:14 | Anesthesiology Progress Note ---
Date of Service March 06, 2019 Anesthesia Post Procedure Vital Signs Vital Signs: Temp Pulse Pulse Pulse Resp BP BP 03/06/19 16:06 56 L 20 146/60 H 03/06/19 16:00 57 L 18 134/66 03/06/19 15:52 57 L 18 131/74 03/06/19 15:12 36.4 C L 57 L 18 153/60 H 03/06/19 11:29 36.4 C L 55 L 22 147/62 H 03/06/19 07:19 36.4 C L 56 L 20 164/66 H 03/06/19 03:38 36.7 C 54 L 18 160/67 H 03/05/19 23:42 36.8 C 57 L 20 165/75 H 03/05/19 21:30 36.2 C L 65 18 184/73 H 03/05/19 20:30 36.6 C 86 18 124/88 03/05/19 19:30 36.9 C 60 18 163/70 H 03/05/19 19:08 37.0 C 61 16 169/74 H 03/05/19 18:33 36.6 C 65 164/92 H 03/05/19 18:12 36.9 C 68 20 173/72 H 03/05/19 17:57 36.8 C 63 178/66 H 03/05/19 17:44 36.5 C 63 21 181/65 H 03/05/19 17:02 36.7 C 63 18 03/05/19 16:35 36.8 C 63 18 169/76 H 03/05/19 16:16 61 18 161/57 H Pulse Ox 03/06/19 16:06 94 03/06/19 16:00 95 03/06/19 15:52 100 03/06/19 15:12 94 03/06/19 11:29 89 L 03/06/19 07:19 94 03/06/19 03:38 92 03/05/19 23:42 93 03/05/19 21:30 92 03/05/19 20:30 93 03/05/19 19:30 91 03/05/19 19:08 93 03/05/19 18:33 92 03/05/19 18:12 93 03/05/19 17:57 93 03/05/19 17:44 93 03/05/19 17:02 93 03/05/19 16:35 93 03/05/19 16:16 93 Transfer of Care Handoff Completed per policy Notes Mental Status: alert / awake / arousable and participated in evaluation Patient Amnestic to Procedure: Yes Nausea / Vomiting: adequately controlled Pain: adequately controlled Airway Patency, RR, SpO2: stable & adequate BP & HR: stable & adequate Hydration State: stable & adequate Anesthetic Complications: no major complications apparent
[2019-03-06] MEDS: TAMSULOSIN HCL 0.4 MG CAP PO SCH (20:32)
[2019-03-06] MEDS: ROSUVASTATIN CALCIUM 20 MG TAB PO SCH (20:32)
[2019-03-06] MEDS: GABAPENTIN 100 MG CAP PO SCH (20:33)
[2019-03-06] MEDS: AMLODIPINE BESYLATE 5 MG TAB PO SCH (20:35)
[2019-03-06] MEDS: INSULIN DETEMIR FLEXPEN/FLEX TOUCH 100 UNITS/ML 3ML SQ SCH (20:36)
--- NOTE | 2019-03-06 21:06 | Hospitalist Progress Note ---
Date of Service March 06, 2019 Assessment & Plan (1) GI bleed: Continue pantoprazole IV drip pending EGD - as per nurse he is due for EGD later today (2) Anemia: Consult renal for iron infusion and EPO management Given recent increase in melanic stools suspect his angiodysplasia has re-bled. (3) Bursitis of right elbow: Drained in ER, Bloody fluid from analysis, no pathological crystals present. 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 Will continue Levemir 20 units QPM in anticipation of him eating after EGD. (10) Hypertension: Resistant hypertension given use of Labetalol 400mg BID (limited increase due to HR), maximum doses of amlodipine, lisinopril. Will defer increasing hydralazine to nephrology given significant fluid retention. Management mainly with dialysis. (11) DVT prophylaxis: Chemical contraindicated in setting of GI bleed. No SCDs due to lower extremity fragile skin and recent history of ulcers. Subjective Patient was seen prior to EGD. Recently discharged by myself after symptomatic anemia. On this occasion he denies any chest pain, dizziness, fatigue or shortness of breath prior or post blood transfusions. Review of Systems Review of Systems: All systems reviewed & are unremarkable except as noted in HPI & below Physical Exam Cardiovascular: Rate/Rhythm: regular rate and regular rhythm Extremities: normal capillary refill, + edema (bilateral R > L 2+ to knees) and + AV fistula; no calf tenderness Gastrointestinal (Abdomen): normal bowel sounds, soft, nontender, no hepatosplenomegaly Musculoskeletal: no cyanosis or clubbing, extremities motor strength 5/5 Skin: no rashes, warm and dry (right bursitis drained with stigmata of infection) Neurologic: moves all extremities and awake; no focal motor deficits and not confused Psychiatric: A+Ox3, euthymic affect Results & Data Vital Signs (Past 12 Hours) Vital Signs Temp Pulse Resp BP Pulse Ox 03/06/19 19:24 97.3 F L 58 L 20 179/73 H 95 03/06/19 16:15 58 L 20 156/57 H 95 03/06/19 16:06 56 L 20 146/60 H 94 03/06/19 16:00 57 L 18 134/66 95 03/06/19 15:52 57 L 18 131/74 100 03/06/19 15:12 97.5 F L 57 L 18 153/60 H 94 03/06/19 11:29 97.5 F L 55 L 22 147/62 H 89 L PG Care Time/CCT Total # of Minutes Spent Total Time Spent with Patient: Total time spent is greater than 50% in coordination of care (as documented) at patient's floor/unit and/or counseling patient: (1) GI bleed GI bleed type/associated pathology: unspecified gastrointestinal hemorrhage type Qualified Code(s): K92.2 - Gastrointestinal hemorrhage, unspecified (2) Anemia Anemia type: unspecified type Qualified Code(s): D64.9 - Anemia, unspecified (3) Bursitis of right elbow Elbow bursitis location: unspecified Qualified Code(s): M70.31 - Other bursitis of elbow, right elbow (4) Hypothyroidism Hypothyroidism type: acquired Qualified Code(s): E03.9 - Hypothyroidism, unspecified (5) BPH (benign prostatic hyperplasia) Lower urinary tract symptom presence: unspecified whether lower urinary tract symptoms present Qualified Code(s): N40.0 - Benign prostatic hyperplasia without lower urinary tract symptoms (6) CAD (coronary artery disease) Coronary Disease-Associated Artery/Lesion type: [place] artery [place] vs. transplanted heart: [place] heart Associated angina: without angina Qualified Code(s): I25.10 - Atherosclerotic heart disease of [place] coronary artery without angina pectoris (7) Hypertension Hypertension type: essential hypertension Qualified Code(s): I10 - Essential (primary) hypertension
[2019-03-06] MEDS: PANTOprazole 40 MG TAB PO SCH (21:35)
[2019-03-07] MEDS: LEVOTHYROXINE SODIUM 200 MCG TABLET PO SCH (05:51)
[2019-03-07] MEDS: LEVOTHYROXINE SODIUM 50 MCG TABLET PO SCH (05:51)
[2019-03-07] MEDS ORDERED: SODIUM CHLORIDE 0.9% 1000ML 1,000 ML IV PRN (07:00)
[2019-03-07] MEDS ORDERED: EPOETIN ALFA 10,000 UNITS/ML VIAL IV ONE (07:00)
[2019-03-07 07:16] LABS: Basophils # (auto) 0.02 K/uL (0-0.2); Basophils % (auto) 0.5 %; Eosinophils # (auto) 0.23 K/uL (0-0.5); Eosinophils % (auto) 5.3 %; Hematocrit (blood only) 28.8 % (42-52); Hemoglobin 8.9 g/dL (14.0-18.0); Lymphocytes # (auto) 0.46 K/uL (1.2-3.4); Lymphocytes % (auto) 10.6 %; Mean Corpuscular Hemoglobin 28.3 pg (25-34); Mean Corpuscular Hgb Conc 30.9 g/dL (32-36); Mean Corpuscular Volume 91.4 fL (80-100); Mean Platelet Volume 10.3 fL (7.4-10.4); Monocytes # (auto) 0.48 K/uL (0.11-0.59); Neutrophils # (auto) 3.16 K/uL (1.4-6.5); Neutrophils % (auto) 72.6 %; Platelet Count 180 K/uL (130-400); RDW Coefficient of Variation 18.6 % (11.5-14.5); RDW Standard Deviation 60.3 fL (36.4-46.3); Red Blood Count 3.15 M/uL (4.7-6.1); White Blood Count 4.35 K/uL (4.8-10.8)
[2019-03-07] MEDS: LABETALOL HCL 200 MG TAB PO SCH (07:49)
[2019-03-07] MEDS: PANTOprazole 40 MG TAB PO SCH (07:50)
[2019-03-07] MEDS: DOXAZOSIN MESYLATE 1 MG TAB PO SCH (07:50)
[2019-03-07] MEDS: FUROSEMIDE 80 MG TAB PO SCH ×2 (07:50→16:23)
[2019-03-07] MEDS: NEPHROCAPS PO SCH (07:50)
[2019-03-07] MEDS: DOCUSATE SODIUM 100 MG CAP PO SCH (07:51)
[2019-03-07 07:56] LABS: Albumin Level 3.2 gm/dl (3.4-5.0); BUN Creatinine Ratio 8.1 (10-20); Bilirubin,Total 0.7 mg/dl (0.2-1); Calcium 9.2 mg/dl (8.5-10.1); Creatinine Clr Calc Pharmacy 10.2 ml/min; Est GFR (African American) 7.8; Est GFR (Non-African American) 6.8; Ferritin 48.2 ng/ml (8-388); Globulin 3.2 gm/dl (2.5-4.0); Potassium 3.7 mmol/L (3.5-5.1); Total Protein 6.4 gm/dl (6.4-8.2)
--- NOTE | 2019-03-07 09:59 | Nephrology Progress Note ---
Date of Service March 07, 2019 Assessment & Plan (1) End-stage renal disease (ESRD): -- Will maintain outpatient schedule (TTS 4hr 2K 2.5Ca F-200NR EDW 98 kg) -- HD today, heparin free. Orders have been entered into EMR and HD RN notified (2) Anemia: -- s/p EGD yesterday w/cautery of ectatic vessels in the gastric antrum -- FOBT +, iron saturation 9% w/ ferritin 32 (3) Hypertension: -- Blood pressure control is reasonable. Continue current medical regimen and monitor Subjective Mr. Mcintyre was seen & examined prior to HD this morning. He underwent EGD yesterday w/cautery of ectatic vessels in the gastric antrum. Mr. Mcintyre denies any overt bleeding overnight. He currently denies fever, abdominal pain or chest discomfort Review of Systems Constitutional: no fever and no chills Eyes: no worsening vision and no problem reported Ear, Nose, Mouth, Throat: no problem reported Respiratory: no cough and no dyspnea Cardiovascular: no chest pain, no palpitations and no edema Gastrointestinal: no abdominal pain, no nausea, no vomiting and no diarrhea/loose stools Genitourinary: no hematuria Musculoskeletal: no back pain Integumentary: no rash Neurologic: no confusion Physical Exam Constitutional: not in distress Eyes: PERRL, conjunctivae normal, anicteric sclerae ENMT: external ear and nose normal, oropharynx normal Neck: trachea midline, no thyromegaly Respiratory: normal respiratory effort, lungs clear to auscultation Cardiovascular: RRR, no murmur, no edema Extremities: + AV fistula (+ bruit) Gastrointestinal (Abdomen): normal bowel sounds, soft, nontender, no hepatosplenomegaly Musculoskeletal: Extremities: no cyanosis Skin: no rashes, warm and dry Neurologic: awake; not confused Results & Data Vital Signs (Past 12 Hours) Vital Signs Temp Pulse Resp BP Pulse Ox 03/07/19 07:54 36.5 C 56 L 20 168/70 H 92 03/07/19 04:15 36.8 C 60 16 176/67 H 91 03/06/19 23:25 36.5 C 66 18 181/65 H 90 Laboratory Results Laboratory Tests 03/07/19 03/07/19 06:47 06:47 WBC 4.35 L Hgb 8.9 L Hct 28.8 L Plt Count 180 Sodium 138 Potassium 3.7 Chloride 100 Carbon Dioxide 26 BUN 58 H Creatinine 7.13 H* D Glucose 169 H PG Care Time/CCT Total # of Minutes Spent Total Time Spent with Patient: Total time spent is greater than 50% in coordination of care (as documented) at patient's floor/unit and/or counseling patient: (1) Anemia Anemia type: unspecified type Qualified Code(s): D64.9 - Anemia, unspecified (2) Hypertension Hypertension type: essential hypertension Qualified Code(s): I10 - Essential (primary) hypertension
[2019-03-07] MEDS: lisinopriL 40 MG TAB PO SCH (13:43)
[2019-03-07 15:37] VITALS: BP 181/63; TEMP 98.1; O2SAT 95
--- NOTE | 2019-03-07 16:27 | Gastroenterology Progress Note ---
Date of Service March 07, 2019 Assessment & Plan (1) GI bleed: UGI bleeding--clinically with stools brazing machine tender and per H and H improved/resolved GAVE--source of bleeding. s/p EGD with APC yesterday. Discussed with patient recommend EGD as outpt in 4-5 weeks with intent to eradicate the GAVE. Continue PPI bid hx of --for this and because cautery causes ulcers would contineu PPI bid po as outpt acute blood loss anemia--stable hx of duodenal polyp--follow as outp hx of colon polyps---most recent colo 08/2018 olimpia Ok for DC today from GI standpoint Subjective cc melena HPI Per patient stools brazing machine tender today. No abd pain. Noted Hgb stable. Review of Systems Respiratory: no dyspnea Cardiovascular: no chest pain Physical Exam Constitutional: WD/WN, vitals as above Respiratory: normal respiratory effort, lungs clear to auscultation Cardiovascular: RRR, no murmur, no edema Gastrointestinal (Abdomen): normal bowel sounds, soft, nontender, no hepatosplenomegaly Neurologic: PERRL, EOMI, accommodation nl, no face palsy, no dysarthria Psychiatric: A+Ox3, euthymic affect Results & Data Vital Signs (Past 12 Hours) Vital Signs Temp Pulse Pulse Pulse Resp BP BP 03/07/19 15:36 36.7 C 61 19 181/63 H 03/07/19 13:30 36.9 C 62 163/71 H 03/07/19 13:20 60 172/72 H 03/07/19 13:00 59 L 158/66 H 03/07/19 12:40 60 156/69 H 03/07/19 12:20 61 153/63 H 03/07/19 12:00 60 159/70 H 03/07/19 11:40 57 L 163/65 H 03/07/19 11:20 57 L 160/55 H 03/07/19 11:00 56 L 155/68 H 03/07/19 10:40 57 L 149/61 H 03/07/19 10:20 57 L 143/62 H 03/07/19 10:00 57 L 147/66 H 03/07/19 09:40 57 L 154/68 H 03/07/19 09:14 36.9 C 58 L 03/07/19 07:54 36.5 C 56 L 20 168/70 H Pulse Ox 03/07/19 15:36 95 03/07/19 13:30 03/07/19 13:20 03/07/19 13:00 03/07/19 12:40 03/07/19 12:20 03/07/19 12:00 03/07/19 11:40 03/07/19 11:20 03/07/19 11:00 03/07/19 10:40 03/07/19 10:20 03/07/19 10:00 03/07/19 09:40 03/07/19 09:14 03/07/19 07:54 92 (1) GI bleed GI bleed type/associated pathology: unspecified gastrointestinal hemorrhage type Qualified Code(s): K92.2 - Gastrointestinal hemorrhage, unspecified
--- NOTE | 2019-03-07 17:23 | Discharge Summary ---
Date of Service March 07, 2019 Admission HPI Per Admitting Provider Patient is a 78 years old male with past medical history of chronic diastolic congestive heart failure, diabetes mellitus type 2, end-stage renal disease, vascular dementia, IgG monoclonal gammopathy, obstructive sleep apnea, coronary artery disease, BPH, hypothyroidism who was sent from the dialysis today because his H&H was below 8, 7.7 and he reported having a black stool. Patient is at his usual health appears to be stable vital signs but complains of shortness of breath on longer distance. He also appears volume overload with lower extremities bilateral pitting edema 2+. Patient is compliant with his tr eatments in dialysis Saturday and Saturday his medication and diet. Labs are reviewed which showed:VBC of 3.98, hemoglobin 7.7, hematocrit 25.2, platelets 189, PT 11.7, INR 1.2, sodium 139, potassium 3.3, creatinine 3.94, GFR 13.9, AST 14, ALT 22, troponin 0.0 62. Patient denies fever, chills, headache, chest pain, shortness of breath at rest, abdominal pain, frequency, urgency, hemoptysis, hematemesis, hematochezia but complains of melena dark stool for 2 days. Patient had a EGD on February 15For the similar issue by Dr. Mando White gastroenterology and multiple bleeding on Feliz ectasis are found in the stomach. That was treated with argon plasma coagulation. No bleeding in the duodenal diverticulum. No specimen collected. Normal esophagus. Multiple gastric polyps. Discussed with Dr.Brian Bangura heating technician from [facility] and he recommended to keep patient n.p.o. after midnight for the procedure EGD in the morning. Hold medical DVT prophylaxis such as anticoagulants. Patient is going to be admitted at PCU telemetry. Admission Exam Per Admitting Provider Constitutional: WD/WN, vitals as above well developed and + obese Eyes: PERRL, conjunctivae normal, anicteric sclerae ENMT: external ear and nose normal, oropharynx normal Neck: trachea midline, no thyromegaly Respiratory: normal respiratory effort, lungs clear to auscultation Cardiovascular: Heart Sounds: normal S1 and normal S2 Vessels: dorsalis pedis pulses present Extremities: + pedal edema (2+ pitting edema of the both lower extremities) Gastrointestinal (Abdomen): normal bowel sounds, soft, nontender, no hepatosplenomegaly Musculoskeletal: no cyanosis or clubbing, extremities motor strength 5/5 Skin: no rashes, warm and dry Neurologic: patellar DTR's 2+ bilat, sensation intact Genitourinary: no testicular masses, no penis abnormality Lymphatic: no cervical or axillary lymphadenopathy Principal Diagnosis Gastric antral vascular ectasia Upper GI bleed Acute blood loss anemia Right olecranon bursitis Discharge Exam Constitutional well developed, comfortable and + overweight; not lethargic Eyes PERRL, conjunctivae normal, anicteric sclerae ENMT external ear and nose normal, oropharynx normal Neck trachea midline Respiratory normal respiratory effort; no respiratory distress, no labored breathing and does not use accessory muscles Auscultation: lungs clear to auscultation bilaterally Cardiovascular Rate/Rhythm: regular rate and regular rhythm Extremities: normal capillary refill and + edema (bilateral R > L 2+ to knees); no calf tenderness Gastrointestinal (Abdomen) normal bowel sounds, soft, nontender, no hepatosplenomegaly Musculoskeletal no cyanosis or clubbing, extremities motor strength 5/5 Skin no rashes, warm and dry (right bursitis drained with stigmata of infection) Neurologic moves all extremities and awake; no focal motor deficits and not confused Psychiatric A+Ox3, euthymic affect Discharge Data Allergies Allergy/AdvReac Type Severity Reaction Status Date / Time tramadol AdvReac Severe disorented Verified 03/06/19 15:08 ,falling down metformin AdvReac Intermediate CONFUSION Verified 03/06/19 15:08 Consultations 03/05/19 15:03 ED Decision to Admit Stat 03/05/19 17:43 Consult Gastroenterology Routine 03/06/19 08:40 Consult Nephrology Routine Procedures Performed Operation Date: 03/06/19 08:30 Actual Procedures p EGD Hemostasis - Terrence Bangura [facility] Course (1) GI bleed: Recurrent GI bleeds. Recently admitted for the same. Received argon laser to moderate gastric antral vascular ectasia from Dr Bangura. Hgb stable s/p x2 packed RBC transfusions. Follow up with routine labs at dialysis for monitoring. (2) Anemia: Given recent increase in melanic stools suspect his angiodysplasia has re- bled. (3) Bursitis of right elbow: Drained in ER, Bloody fluid from analysis, no pathological crystals present. Gram stain without organisms Total Time Total Time Spent Total Time Spent (In Minutes): 35 Discharge Plan Discharge Items Patient Disposition: Home - Self-Care Reason For Visit: SEVERE ANEMIA,MELENA Discharge Diagnosis: Gastric antral vascular ectasia Upper GI bleed Acute blood loss anemia Right olecranon bursitis Activity: Resume your previous activity Non-emergency contact: Primary Care Provider Call non-emergency contact if: you have any medication questions and your symptoms worsen Follow-up/Referrals: Mahsa Wang DO [Primary Care Provider] - Mando White [Physician] - (5 week endoscopy follow up, appointment to be made) Diet: Dialysis Renal Addtl Attending Provider Instructions: You were admitted for black stools which were positive for blood. You were treated with argon laser via endoscopy. You were transfused 2 units of packed red blood cells and anemia is now stable after endoscopy. Repeat endoscopy will be arranged in approximately [address] White (see number above if you have not heard anything back in 7 days). In addition you were diagnosed with right sided olecranon bursitis, this was drained in the ER. This was not infected and no organisms were grown on culture. Please see information sheet below for more information. Pending Studies at Discharge: No Stand-Alone Forms: My [facility] Medications and DC Order Prescriptions: Continued labetalol 100 mg tablet 400 mg PO BID Qty: 720 RF: 0 doxazosin [Cardura] 1 mg tablet 1 mg PO DAILY Qty: 90 RF: 1 gabapentin 100 mg capsule 200 mg PO HS Qty: 60 RF: 5 lisinopril 40 mg tablet 40 mg PO DAILY@1200 Qty: 90 RF: 3 amlodipine 10 mg tablet 10 mg PO HS Qty: 90 RF: 0 docusate sodium 100 mg capsule 200 mg PO QAM Qty: 30 RF: 0 furosemide 80 mg tablet 80 mg PO AMPM Qty: 60 RF: 0 insulin syringe-needle U-100 [BD Insulin Syringe Ultra-Fine] 0.5 mL 30 gauge x 1/2" syringe .ROUTE .MEDSUPPLY Qty: 10 RF: 0 rosuvastatin 20 mg tablet 20 mg PO QPM Qty: 90 RF: 0 Levemir U-100 Insulin 100 unit/mL solution 20 units subcut HS RF: 0 pantoprazole 40 mg Tablet,Delayed Release (Dr/Ec) 40 mg PO BID Qty: 60 RF: 2 tamsulosin 0.4 mg capsule 0.4 mg PO HS Qty: 90 RF: 1 Renal Caps 1 mg capsule 1 mg PO DAILY RF: 0 levothyroxine 50 mcg tablet 50 mcg PO UD RF: 0 levothyroxine 200 mcg tablet 200 mcg PO DAILY RF: 0 hydralazine 25 mg Tablet 25 mg PO TIDM 30 Days Qty: 30 RF: 0 Discharge Orders: Discharge Order (Routine); Ordered 03/07/19 Ordered By: Prashanth Laughlin/Other Patient Handouts: ED Bursitis Elbow Olecranon Admission Data Admit Date/Time: 03/05/19 16:52 Attending Provider: Prashanth Rainey Admit Provider: Elsie Jimenez Primary Care Provider: Mahsa Wang Other Providers: Elsie Jimenez ; Mando White ; Merlyn Briceno Other Interventions: Discharge Summary Assessment (RN) Last Done: 03/07/19 17:41 DC Date/Time DO NOT enter until pt leaves facility: 03/07/19 18:05
[2019-03-07 17:43] VITALS: PULSE 63
[2019-03-08 22:22] LABS: Lyme DNA PCR CSF or Synovial Not detected (Not Detected); Lyme DNA Source Synovial Fluid
== END 2019-03-07 18:05 | disposition home or self-care (01) | DRG 377 ==
LOC: ED 11:44 → 2S 16:52 → SUATTDRO 16:52 → 2S 17:23
DX: I34.0 Nonrheumatic mitral (valve) insufficiency; E78.5 Hyperlipidemia, unspecified; Z84.1 Family history of disorders of kidney and ureter; E11.51 Type 2 diabetes mellitus with diabetic peripheral angiopathy without gangrene; K31.811 Angiodysplasia of stomach and duodenum with bleeding; N18.6 End stage renal disease; I50.32 Chronic diastolic (congestive) heart failure; M81.0 Age-related osteoporosis without current pathological fracture; Z91.19 Patient's noncompliance with other medical treatment and regimen; N40.0 Benign prostatic hyperplasia without lower urinary tract symptoms; Z99.2 Dependence on renal dialysis; Z88.8 Allergy status to other drugs, medicaments and biological substances; Z83.3 Family history of diabetes mellitus; D47.2 Monoclonal gammopathy; E11.40 Type 2 diabetes mellitus with diabetic neuropathy, unspecified; D62 Acute posthemorrhagic anemia; Z79.4 Long term (current) use of insulin; M70.31 Other bursitis of elbow, right elbow; I27.20 Pulmonary hypertension, unspecified; Z87.891 Personal history of nicotine dependence; K31.7 Polyp of stomach and duodenum; I25.10 Atherosclerotic heart disease of native coronary artery without angina pectoris

== ENCOUNTER 2019-03-18 15:15 | Inpatient (IN) ==
[2019-03-18] MEDS ORDERED: cefTRIAXone SODIUM 2,000 MG/70 ML BAG IV STA (15:55)
[2019-03-18] MEDS ORDERED: PANTOprazole 80 MG in DEXTROSE 5% 100 ML IV ONE (16:00)
[2019-03-18 16:37] LABS: INR 1.1 (0.9-1.1); Partial Thromboplastin Ratio 0.9; Partial Thromboplastin Time 25.6 Seconds (21.0-31.0); Prothrombin Time 11.3 Seconds (9.0-12.0)
--- NOTE | 2019-03-18 16:43 | XRay Report ---
XR knee LT 3V CLINICAL HISTORY: fall, pain trauma. Pain. COMPARISON: None. DISCUSSION: Generalized degenerative change. No evidence for fracture or dislocation. Mild chondrocal cinosis on a degenerative basis. Soft tissue vascular calcifications. There is no evidence for soft tissue swelling. IMPRESSION: Moderate degenerative change. No acute bony abnormality. The above report was generated using voice recognition software. It may contain grammatical, syntax or spelling errors. Electronically signed by: Osmany Marte M.D. 03/18/2019 4:42 PM
[2019-03-18 16:44] LABS: Hemoglobin 6.1 g/dL (14.0-18.0); Mean Corpuscular Hemoglobin 28.9 pg (25-34); Mean Corpuscular Hgb Conc 32.1 g/dL (32-36); Mean Platelet Volume 11.3 fL (7.4-10.4); Platelet Count 154 K/uL (130-400); RDW Coefficient of Variation 17.4 % (11.5-14.5); RDW Standard Deviation 58.2 fL (36.4-46.3); Red Blood Count 2.11 M/uL (4.7-6.1); White Blood Count 3.47 K/uL (4.8-10.8)
[2019-03-18] MEDS ORDERED: SODIUM CHLORIDE 0.9% 250 ML IV PRN (16:47)
[2019-03-18 16:56] LABS: Basophils # (auto) 0.01 K/uL (0-0.2); Basophils % (auto) 0.3 %; Eosinophils # (auto) 0.09 K/uL (0-0.5); Eosinophils % (auto) 2.6 %; Hypochromasia Present; Lymphocytes # (auto) 0.44 K/uL (1.2-3.4); Lymphocytes % (auto) 12.7 %; Monocytes # (auto) 0.48 K/uL (0.11-0.59); Monocytes % (auto) 13.8 %; Neutrophils # (auto) 2.45 K/uL (1.4-6.5); Neutrophils % (auto) 70.6 %
--- NOTE | 2019-03-18 17:09 | Emergency Department Note ---
Entered by Irene Smith acting as a scribe for History of Present Illness General Chief complaint: Rectal Bleed Stated complaint: RECTAL BLEEDING, WEAKNESS Time Seen by Provider: 03/18/19 15:42 Source: patient and family History of Present Illness Onset (ago): day(s) (today) Location: buttocks (rectal) Pain Consistency: + other (episode) Quality: + other (bleed) Associated symptoms: + denies other symptoms (bright red blood in his stools), + weakness and + other (left leg injury and pain); no fever/chills (fever), no loss of appetite and no nausea/vomiting (vomiting) The patient is a 78 year old male who presents to the Emergency Room with comp laints of an episode of rectal bleeding starting today. The patient states that he is a dialysis patient and just had dialysis yesterday. He states that while there, they decided to start him on a new medication called Auryxia. The patients notes that he takes 6 a day, 2 with each meal. The patient notes that he started them yesterday. He reports that today when he moved his bowels, they were dark in color. He reports that he has a history of internal bleeding and was just here 2 weeks ago for it. He notes that Dr. White had to go in through an endoscopy and repair his bleeding. He notes that he is concerned it may be that again. The patients notes that when she read the side effects of the medication he started though, it mentioned black stools. The patient states that he came to the ED to determine which it was. The patient complains of weakness for a week. He notes that he just feels tired and exhausted. The patients notes that the patient fell last week and hurt his left leg. She states that he refuses to go get it looked at, but she believes that there is something wrong with it. She notes that his leg has bruising all over it, redness on his kneecap, and his whole leg is swollen. She notes that it is painful to the touch for him and when he walks, he moans because it hurts him. The patient denies being on a blood thinner, fever, loss of appetite, vomiting, and passing bright red blood in his stools. EMR reviewed. The patient was discharged on the 07 of March, 11 days ago, with an Upper GI bleed. He did have an EGD done and received 2 units of packed red blood cells. Home Medications Home Medications Medication Instructions Recorded Confirmed Type pantoprazole 40 mg PO BID #60 tab 04/23/18 03/18/19 Rx amlodipine 10 mg tablet 10 mg PO HS #90 tab 11/12/18 03/18/19 Rx labetalol 100 mg tablet 400 mg PO BID #720 tab 12/08/18 03/18/19 Rx doxazosin 1 mg tablet 1 mg PO DAILY #90 tab 12/23/18 03/18/19 Rx tamsulosin 0.4 mg PO HS #90 cap 01/02/19 03/18/19 Rx docusate sodium 100 mg capsule 200 mg PO QAM #30 cap 01/19/19 03/18/19 Rx furosemide 80 mg tablet 80 mg PO AMPM #60 tab 01/19/19 03/18/19 Rx rosuvastatin 20 mg tablet 20 mg PO QPM #90 tab 01/19/19 03/18/19 Rx gabapentin 100 mg capsule 200 mg PO HS #60 cap 02/04/19 03/18/19 Rx Renal Caps 1 mg PO DAILY 02/15/19 03/18/19 History levothyroxine 50 mcg PO DAILY 02/15/19 03/18/19 History levothyroxine 200 mcg PO DAILY 02/15/19 03/18/19 History hydralazine 25 mg PO TIDM 30 Days #30 tab 02/18/19 03/18/19 Rx lisinopril 40 mg tablet 40 mg PO DAILY@1200 #90 tab 02/26/19 03/18/19 Rx Levemir U-100 Insulin 20 units SUBCUT HS 03/05/19 03/18/19 History ferric citrate [Auryxia] 420 mg PO TIDM 03/18/19 03/18/19 History nut.tx.gluc intol,lf,soy-fiber 1 ea PO TIDM 03/18/19 03/18/19 History [Boost Glucose Control] Allergies Allergy/AdvReac Type Severity Reaction Status Date / Time tramadol AdvReac Severe disorented Verified 03/06/19 15:08 ,falling down metformin AdvReac Intermediate CONFUSION Verified 03/06/19 15:08 Past Med/Surg History Medical History AVF (arteriovenous fistula) Hypnic jerks Uncontrolled daytime somnolence Hyperlipidemia LDL goal <70 Personal history of noncompliance with medical treatment, presenting hazards to health Cellulitis of left lower extremity without foot Volume overload Mitral regurgitation Anxiety Arthritis BMI 40.0-44.9, adult Chronic diastolic congestive heart failure Chronic kidney disease, stage IV (severe) 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, with long-term current use of insulin Depression Diabetic peripheral neuropathy ESRD (end stage renal disease) on dialysis Hiatal hernia with GERD without esophagitis Hearing difficulty IgG monoclonal gammopathy Memory loss Nephrotic syndrome Obstructive sleep apnea Occlusion and stenosis of unspecified carotid artery Osteoporosis Peripheral vascular disease Pulmonary hypertension Vitamin D deficiency Anemia Gastric ulcer CAD (coronary artery disease) BPH (benign prostatic hyperplasia) Hypothyroidism Hypertension Asthma Secondary hyperparathyroidism of renal origin COPD (chronic obstructive pulmonary disease) Acute on chronic respiratory failure (Resolved) Altered mental status (Resolved) Chest pain (Resolved) Elevated troponin (Resolved) Encephalopathy (Resolved) Epistaxis (Resolved) Fluid overload (Resolved) Hypertensive urgency (Resolved) Hypoxia (Resolved) Abnormal colonoscopy Surgical History H/O cardiac catheterization H/O esophagogastroduodenoscopy 02/16/19 [facility]- Dr. Mando White. 50mg propofol, no issues. 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 Beliefs That Will Affect Care: None marital status: Current Living Situation: Spouse current occupational status: employed current occupation: works part-time at [employer] Other Information That Helps Us Care for You: No Feels Safe at Home: Yes Safety Concerns: Feels Safe At This Time Smoking Status: Never smoker Tobacco Type: cigarettes ; Do You Dip or Chew Tobacco: No ; Number of Years Since Quit: 25 ; Second Hand Exposure: No ; Tobacco Cessation Education Requested by Patient: No Hx Alcohol Use: No Hx Substance Use: No Childhood Exposure to Second-Hand Smoke: No caffeine: Yes Dental Care, Regularly: Yes Physical Activity Frequency Comment: limited due physical condition Seatbelt Use: sometimes Review of Systems See HPI for pertinent positives & negatives. and A total of 10 systems reviewed and were otherwise negative Physical Exam Vital Signs Vital Signs - 24 hr 03/18/19 15:19 03/18/19 15:28 03/18/19 15:31 Temperature 36.7 C Temperature Source Oral Sepsis Recent Fever Within 48 Hours No Sepsis Action Taken by Nursing No Action Required Pulse Rate 62 62 62 Pulse Rate from SpO2 Sensor 62 62 Respiratory Rate 19 20 16 Respiratory Effort / Characteristics Non-Labored Spontaneous Respiratory Depth Normal Blood Pressure 129/56 L 129/56 L Blood Pressure Mean 80 80 Pulse Oximetry 93 93 93 Oxygen Delivery Method Room Air 03/18/19 16:05 03/18/19 16:22 03/18/19 16:30 Temperature Temperature Source Sepsis Recent Fever Within 48 Hours Sepsis Action Taken by Nursing Pulse Rate 67 63 63 Pulse Rate from SpO2 Sensor Respiratory Rate 23 18 19 Respiratory Effort / Characteristics Respiratory Depth Blood Pressure 141/60 H 144/58 H Blood Pressure Mean 87 86 Pulse Oximetry Oxygen Delivery Method 03/18/19 16:42 03/18/19 17:00 03/18/19 17:30 Temperature Temperature Source Sepsis Recent Fever Within 48 Hours Sepsis Action Taken by Nursing Pulse Rate 64 64 66 Pulse Rate from SpO2 Sensor Respiratory Rate 16 17 18 Respiratory Effort / Characteristics Respiratory Depth Blood Pressure 144/58 H 150/55 H 144/77 H Blood Pressure Mean 86 86 99 Pulse Oximetry Oxygen Delivery Method 03/18/19 18:00 03/18/19 18:07 Temperature Temperature Source Sepsis Recent Fever Within 48 Hours Sepsis Action Taken by Nursing Pulse Rate 66 65 Pulse Rate from SpO2 Sensor 65 Respiratory Rate 21 17 Respiratory Effort / Characteristics Respiratory Depth Blood Pressure 156/55 H Blood Pressure Mean 88 Pulse Oximetry 91 Oxygen Delivery Method GENERAL: Patient is in no acute distress. HEENT: No acute trauma, normocephalic atraumatic, mucous membranes moist, no nasal congestion, no scleral icterus. NECK: No stridor, no adenopathy, no meningismus, trachea is midline. LUNGS: Clear to auscultation bilaterally, no wheeze, no rhonchi, breath sounds equal. HEART: 2/6 systolic murmur. Regular rate and rhythm. ABDOMEN: Soft, nontender, bowel sounds positive, no hernias, no peritonitis. RECTAL: Black stool. Heme positive. EXTREMITIES: Edema to both lower extremities, worse on the left. There is a contusion around the left knee and down the left calf. There is an abrasion to the anterior left knee with surrounding erythema and warmth. No drainage. NEUROLOGIC: Oriented x 3, no acute motor or sensory deficits, no focal weakness. SKIN: No rash, no jaundice, no diaphoresis. Course 1545: The patient was evaluated in room B4B. A complete history and physical exam was performed. 164: I reevaluated the patient and updated him on and his family on his test results at this time. I discussed the treatment plan with them. The patient signed the blood consent at this time. He and his family verbally agree and understand. 165: I discussed the patient's case with Dr. Siddiqui- [facility] Hospitalist. He will evaluate the patient for further management. Administered Medications Amlodipine Besylate (Norvasc) 10 mg PO HS SHANTA Stop: 04/17/19 20:59 Last Admin: 03/18/19 21:51 Dose: 10 mg Documented by: [id number] Gabapentin (Neurontin) 200 mg PO HS SHANTA Stop: 04/17/19 20:59 Last Admin: 03/18/19 21:51 Dose: 200 mg Documented by: [id number] Pantoprazole Sodium 40 mg/ (Dextrose) 100 mls @ 20 mls/hr IV Q5H SHANTA Stop: 04/17/19 16:14 Last Admin: 03/18/19 21:52 Dose: 20 mls/hr Documented by: [id number] Infusion: 03/18/19 21:52 Dose: 20 mls/hr Documented by: [id number] Admin: 03/18/19 17:41 Dose: 20 mls/hr Documented by: [id number] Labetalol HCl (Normodyne) 400 mg PO BID SHANTA Stop: 04/17/19 20:59 Last Admin: 03/18/19 21:51 Dose: 400 mg Documented by: [id number] Rosuvastatin Calcium (Crestor) 20 mg PO QPM SHANTA Stop: 04/17/19 20:59 Last Admin: 03/18/19 21:51 Dose: 20 mg Documented by: [id number] Tamsulosin HCl (Flomax) 0.4 mg PO HS SHANTA Stop: 04/17/19 20:59 Last Admin: 03/18/19 21:51 Dose: 0.4 mg Documented by: [id number] Discontinued Medications Pantoprazole Sodium 80 mg/ (Dextrose) 120 mls @ 480 mls/hr IV NOW ONE Stop: 03/18/19 16:14 Last Infusion: 03/18/19 17:40 Dose: 0 mls/hr Documented by: [id number] Admin: 03/18/19 17:25 Dose: 480 mls/hr Documented by: [id number] Ceftriaxone Sodium (Rocephin) 2,000 mg in 70 mls @ 140 mls/hr IV NOW STA Stop: 03/18/19 16:24 Last Infusion: 03/18/19 16:30 Dose: 0 mls/hr Documented by: [id number] Admin: 03/18/19 16:29 Dose: 140 mls/hr Documented by: [id number] Medical Decision Making Differential Diagnosis Differential diagnoses include upper GI bleed, lower GI bleed, ulcer, anemia, medication reaction, electrolyte imbalance, coagulopathy, liver disease. Medical Records Attestation: I reviewed the patient's medical records. Home Medications Current Medication List: was personally reviewed by me Laboratory Data Attestation: I reviewed the patient's lab results. Result diagrams: 03/18/19 16:19 03/18/19 16:19 Lab Results 03/18/19 03/18/19 03/18/19 Range/Units 16:19 16:19 16:19 WBC 3.47 L (4.8-10.8) K/uL RBC 2.11 L (4.7-6.1) M/uL Hgb 6.1 L* (14.0-18.0) g/dL Hct 19.0 L* (42-52) % MCV 90.0 (80-100) fL MCH 28.9 (25-34) pg MCHC 32.1 (32-36) g/dL RDW Std Deviation 58.2 H (36.4-46.3) fL RDW Coeff of Jose C 17.4 H (11.5-14.5) % Plt Count 154 (130-400) K/uL MPV 11.3 H (7.4-10.4) fL Immature Gran % (Auto) 0.0 % Neut % (Auto) 70.6 % Lymph % (Auto) 12.7 % Glades % (Auto) 13.8 % Eos % (Auto) 2.6 % Baso % (Auto) 0.3 % Immature Gran # (Auto) 0.00 (0.00-0.02) K/uL Neut # (Auto) 2.45 (1.4-6.5) K/uL Lymph # (Auto) 0.44 L (1.2-3.4) K/uL Glades # (Auto) 0.48 (0.11-0.59) K/uL Eos # (Auto) 0.09 (0-0.5) K/uL Baso # (Auto) 0.01 (0-0.2) K/uL Hypochromasia Present PT 11.3 (9.0-12.0) Seconds INR 1.1 (0.9-1.1) APTT 25.6 (21.0-31.0) Seconds PTT Ratio 0.9 Sodium 140 (136-145) mmol/L Potassium 4.1 (3.5-5.1) mmol/L Chloride 103 (98-107) mmol/L Carbon Dioxide 26 (21-32) mmol/L Anion Gap 11.0 (3-11) BUN 101 H (7-18) mg/dl Creatinine 7.44 H* (0.6-1.4) mg/dl Est Cr Clr Drug Dosing 10.7 ml/min Est GFR ( Amer) 7.5 Est GFR (Non-Af Amer) 6.4 BUN/Creatinine Ratio 13.5 (10-20) Glucose 186 H (70-99) mg/dl Calcium 8.6 (8.5-10.1) mg/dl Magnesium 2.0 (1.8-2.4) mg/dl Total Bilirubin 0.5 (0.2-1) mg/dl AST 10 L (15-37) U/L ALT 16 (12-78) U/L Alkaline Phosphatase 108 (45-117) U/L Troponin I 0.086 H* (0-0.045) ng/ml Total Protein 6.1 L (6.4-8.2) gm/dl Albumin 2.8 L (3.4-5.0) gm/dl Globulin 3.3 (2.5-4.0) gm/dl Albumin/Globulin Ratio 0.8 L (0.9-2) Lipase 299 (73-393) U/L Blood Type Antibody Screen Crossmatch 03/18/19 Range/Units 16:19 WBC (4.8-10.8) K/uL RBC (4.7-6.1) M/uL Hgb (14.0-18.0) g/dL Hct (42-52) % MCV (80-100) fL MCH (25-34) pg MCHC (32-36) g/dL RDW Std Deviation (36.4-46.3) fL RDW Coeff of Jose C (11.5-14.5) % Plt Count (130-400) K/uL MPV (7.4-10.4) fL Immature Gran % (Auto) % Neut % (Auto) % Lymph % (Auto) % Glades % (Auto) % Eos % (Auto) % Baso % (Auto) % Immature Gran # (Auto) (0.00-0.02) K/uL Neut # (Auto) (1.4-6.5) K/uL Lymph # (Auto) (1.2-3.4) K/uL Glades # (Auto) (0.11-0.59) K/uL Eos # (Auto) (0-0.5) K/uL Baso # (Auto) (0-0.2) K/uL Hypochromasia PT (9.0-12.0) Seconds INR (0.9-1.1) APTT (21.0-31.0) Seconds PTT Ratio Sodium (136-145) mmol/L Potassium (3.5-5.1) mmol/L Chloride (98-107) mmol/L Carbon Dioxide (21-32) mmol/L Anion Gap (3-11) BUN (7-18) mg/dl Creatinine (0.6-1.4) mg/dl Est Cr Clr Drug Dosing ml/min Est GFR ( Amer) Est GFR (Non-Af Amer) BUN/Creatinine Ratio (10-20) Glucose (70-99) mg/dl Calcium (8.5-10.1) mg/dl Magnesium (1.8-2.4) mg/dl Total Bilirubin (0.2-1) mg/dl AST (15-37) U/L ALT (12-78) U/L Alkaline Phosphatase (45-117) U/L Troponin I (0-0.045) ng/ml Total Protein (6.4-8.2) gm/dl Albumin (3.4-5.0) gm/dl Globulin (2.5-4.0) gm/dl Albumin/Globulin Ratio (0.9-2) Lipase (73-393) U/L Blood Type B Positive Antibody Screen NEGATIVE Crossmatch See Detail Imaging Data Radiologist's Impression: Radiology results as stated below per my review and the radiologist's interpretation: XR knee LT 3V CLINICAL HISTORY: fall, pain trauma. Pain. COMPARISON: None. DISCUSSION: Generalized degenerative change. No evidence for fracture or dislocation. Mild chondrocalcinosis on a degenerative basis. Soft tissue vascular calcifications. There is no evidence for soft tissue swelling. IMPRESSION: Moderate degenerative change. No acute bony abnormality. The above report was generated using voice recognition software. It may contain grammatical, syntax or spelling errors. Electronically signed by: Osmany Marte M.D. 03/18/2019 4:42 PM ECG Data Attestation: I personally reviewed and interpreted this ECG as follows: Indication: weakness Rate (beats per minute): 64 Rhythm: sinus rhythm Findings: + other (QT-c 536), + 1st degree AV block, + RBBB and + T-wave inversion; no ST elevation Comparison ECG Date: from (03/05/2019) Change: no significant change Blood Pressure Blood Pressure Findings: Elevated blood pressure Blood Pressure Disposition: further management by hospitalist [facility] Narrative There is a lower white blood cell count, this is a chronic issue for the patient. Hemoglobin was low at 6.1. This is about a 2 or three-point drop for the patient. Platelet count was normal. No coagulopathy. There was evidence for an elevation to the creatinine consistent with his dialysis need. Potassium was normal. No worrisome liver enzyme elevation. No evidence for pancreatitis. Blood type was B+. EKG showed a sinus rhythm, no acute ischemia. Cardiac enzyme testing x1 did show a slight troponin elevation. Looking at previous testing, the patient's troponin has been high before and he carries a history of a chronically elevated troponin. Left knee film did not show fracture or bony dislocation. The patient was given IV ceftriaxone as antibiotic coverage. This was for the left knee cellulitis. He received a bolus of IV Protonix and then was placed on a Protonix drip. He was ordered for 1 unit of packed red blood cells for transfusion. The consent for the transfusion was signed. The patient presents with weakness. He has black stool that is heme positive. He is suffering from a GI bleed, likely an upper GI bleed. He is currently stable. Hospitalization is warranted. He may require a repeat endoscopy. For now, he needs resuscitation. I spoke to the patient and case management. The on-call hospitalist was consulted. Impression & Plan GI bleed, Anemia, Weakness, Heme positive stool, Cellulitis of left leg Critical Care Time Critical Care Time: Yes Total Critical Care Time: 37 I have personally spent 37 minutes of critical care time in the direct management of this patient. This includes bedside care, interpretation of diagnostic studies, and testing, discussion with consultants, patient, and family members, and other required patient management activities. This 37 minutes is in excess of all separately billable procedures. Discharge Plan Visit Data *Final* Discharge Date/Time: 03/18/19 19:13 Chief Complaint: Rectal Bleed Stated Complaint: RECTAL BLEEDING, WEAKNESS ED Provider: Shayan Klein Discharge Problem: GI bleed, Anemia, Weakness, Heme positive stool, Cellulitis of left leg Patient Disposition: Admitted As Inpatient Discharge Instructions Interventions: ED Discharge Assessment Last Done: 03/18/19 19:13 Discharge Problem: GI bleed Qualifiers: GI bleed type/associated pathology: unspecified gastrointestinal hemorrhage type Qualified Code(s): K92.2 - Gastrointestinal hemorrhage, unspecified Anemia Qualifiers: Anemia type: unspecified type Qualified Code(s): D64.9 - Anemia, unspecified The chadibe's documentation has been prepared under my direction and personally reviewed by me in its entirety. I confirm that the note above accurately reflects all work, treatment, procedures, and medical decision making performed by me.
[2019-03-18 17:22] LABS: Albumin Globulin Ratio 0.8 (0.9-2); Albumin Level 2.8 gm/dl (3.4-5.0); BUN Creatinine Ratio 13.5 (10-20); Bilirubin,Total 0.5 mg/dl (0.2-1); Calcium 8.6 mg/dl (8.5-10.1); Creatinine Clr Calc Pharmacy 10.7 ml/min; Est GFR (African American) 7.5; Est GFR (Non-African American) 6.4; Globulin 3.3 gm/dl (2.5-4.0); Potassium 4.1 mmol/L (3.5-5.1); Total Protein 6.1 gm/dl (6.4-8.2); Troponin I 0.086 ng/ml (0-0.045)
[2019-03-18] MEDS: PANTOprazole 40 MG in DEXTROSE 5% 100 ML IV SCH ×2 (17:41→21:52)
--- NOTE | 2019-03-18 17:54 | History & Physical Report ---
Date of Service March 18, 2019 Assessment & Plan (1) GI bleed: Patient started on Protonix drip Consult gastroenterology Present on Admission?: Yes (2) Anemia: Anemia secondary to acute blood loss. Patient started on 2 units of blood transfusion. Try to keep hemoglobin above 8 and transfuse accordingly. Present on Admission?: Yes (3) Weakness: Present on Admission?: Yes (4) Heme positive stool: Present on Admission?: Yes (5) End-stage renal disease (ESRD): Consult nephrology for dialysis (6) Chronic diastolic congestive heart failure: Continue home medication. (7) Gastric ulcer: PPI drip started (8) Hypothyroidism: (9) Hypertension: Monitor blood pressure closely. Concurrently on home medications. (10) COPD (chronic obstructive pulmonary disease): (11) Gastric AV malformation: Status post cauterization during last hospitalization History of Present Illness Dark stools Primary Care Provider: Mahsa Wang DO The patient is a 78 year old male who presents to the Emergency Room with complaints of an episode of rectal bleeding starting today. The patient states that he is a dialysis patient and just had dialysis yesterday. states that while there, they decided to start him on a new medication called Auryxia. The patients notes that he takes 6 a day, 2 with each meal. The patient notes that he started them yesterday. He reports that today when he moved his bowels, they were dark in color. He reports that he has a history of internal bleeding and was just here 2 weeks ago for it. He notes that Dr. White had to go in through an endoscopy and repair his bleeding. He notes that he is concerned it may be that again. The patients notes that when she read the side effects of the medication he started though, it mentioned black stools. The patient states that he came to the ED to determine which it was. The patient complains of weakness for a week. He notes that he just feels tired and exhausted. The patients notes that the patient fell last week and hurt his left leg. She states that he refuses to go get it looked at, but she believes that there is something wrong with it. She notes that his leg has bruising all over it, redness on his kneecap, and his whole leg is swollen. She notes that it is painful to the touch for him and when he walks, he moans because it hurts him. The patient denies being on a blood thinner, fever, loss of appetite, vomiting, and passing bright red blood in his stools. EMR reviewed. The patient was discharged on the 07 of March, 11 days ago, with an Upper GI bleed. He did have an EGD done and received 2 units of packed red blood cells. The patient will be admitted for further evaluation and management. He was started blood transfusion in the ER. Allergies Allergy/AdvReac Type Severity Reaction Status Date / Time tramadol AdvReac Severe disorented Verified 03/06/19 15:08 ,falling down metformin AdvReac Intermediate CONFUSION Verified 03/06/19 15:08 Home Medications Home Medications Medication Instructions Recorded Confirmed Type pantoprazole 40 mg PO BID #60 tab 04/23/18 03/18/19 Rx amlodipine 10 mg tablet 10 mg PO HS #90 tab 11/12/18 03/18/19 Rx labetalol 100 mg tablet 400 mg PO BID #720 tab 12/08/18 03/18/19 Rx doxazosin 1 mg tablet 1 mg PO DAILY #90 tab 12/23/18 03/18/19 Rx tamsulosin 0.4 mg PO HS #90 cap 01/02/19 03/18/19 Rx docusate sodium 100 mg capsule 200 mg PO QAM #30 cap 01/19/19 03/18/19 Rx furosemide 80 mg tablet 80 mg PO AMPM #60 tab 01/19/19 03/18/19 Rx rosuvastatin 20 mg tablet 20 mg PO QPM #90 tab 01/19/19 03/18/19 Rx gabapentin 100 mg capsule 200 mg PO HS #60 cap 02/04/19 03/18/19 Rx Renal Caps 1 mg PO DAILY 02/15/19 03/18/19 History levothyroxine 50 mcg PO DAILY 02/15/19 03/18/19 History levothyroxine 200 mcg PO DAILY 02/15/19 03/18/19 History hydralazine 25 mg PO TIDM 30 Days #30 tab 02/18/19 03/18/19 Rx lisinopril 40 mg tablet 40 mg PO DAILY@1200 #90 tab 02/26/19 03/18/19 Rx Levemir U-100 Insulin 20 units SUBCUT HS 03/05/19 03/18/19 History ferric citrate [Auryxia] 420 mg PO TIDM 03/18/19 03/18/19 History nut.tx.gluc intol,lf,soy-fiber 1 ea PO TIDM 03/18/19 03/18/19 History [Boost Glucose Control] Past Med/Surg History Medical History AVF (arteriovenous fistula) Hypnic jerks Uncontrolled daytime somnolence Hyperlipidemia LDL goal <70 Personal history of noncompliance with medical treatment, presenting hazards to health Cellulitis of left lower extremity without foot Volume overload Mitral regurgitation Anxiety Arthritis BMI 40.0-44.9, adult Chronic diastolic congestive heart failure Chronic kidney disease, stage IV (severe) 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, with long-term current use of insulin Depression Diabetic peripheral neuropathy ESRD (end stage renal disease) on dialysis Hiatal hernia with GERD without esophagitis Hearing difficulty IgG monoclonal gammopathy Memory loss Nephrotic syndrome Obstructive sleep apnea Occlusion and stenosis of unspecified carotid artery Osteoporosis Peripheral vascular disease Pulmonary hypertension Vitamin D deficiency Anemia Gastric ulcer CAD (coronary artery disease) BPH (benign prostatic hyperplasia) Hypothyroidism Hypertension Asthma Secondary hyperparathyroidism of renal origin COPD (chronic obstructive pulmonary disease) Acute on chronic respiratory failure (Resolved) Altered mental status (Resolved) Chest pain (Resolved) Elevated troponin (Resolved) Encephalopathy (Resolved) Epistaxis (Resolved) Fluid overload (Resolved) Hypertensive urgency (Resolved) Hypoxia (Resolved) Abnormal colonoscopy Surgical History H/O cardiac catheterization H/O esophagogastroduodenoscopy 02/16/19 [facility]- Dr. Mando White. 50mg propofol, no issues. H/O esophagogastroduodenoscopy 03/06/19 [facility] H/O hemorrhoidectomy Hx of cholecystectomy No pertinent past surgical history Family History Unknown Myocardial infarction Diabetes Mother Diabetes Gallbladder disease Hypertension Breast cancer late 70s Father Diabetes Hypertension Brother Diabetes Hypertension Kidney disease Social History Preferred Language: Yoruba Communication Ability: Effective Blending Machine Feeder Required: No Beliefs That Will Affect Care: None marital status: Current Living Situation: Spouse current occupational status: employed current occupation: works part-time at [employer] Feels Safe at Home: Yes Smoking Status: Former smoker Tobacco Type: cigarettes ; Number of Years Since Quit: 25 ; Second Hand Exposure: No ; Hx Alcohol Use: No Hx Substance Use: No Childhood Exposure to Second-Hand Smoke: No caffeine: Yes Dental Care, Regularly: Yes Physical Activity Frequency Comment: limited due physical condition Seatbelt Use: sometimes Review of Systems Review of Systems: All systems reviewed & are unremarkable except as noted in HPI & below Physical Exam Physical Exam: GENERAL : No acute distress EYES: No icterus, gaze conjugate NOSE: No evidence of epistaxis MOUTH: No lesions or candidiasis, mucosa moist NECK: Supple LUNGS: CTA B/L, no wheezes, rales or rhonchi HEART: Regular, rate controlled ABDOMEN: Soft, NT, ND, BS Present EXTREMITIES: No LE edema, pedal pulses intact NEURO: A&OX3 Results & Data Vital Signs (Past 12 Hours) Vital Signs Temp Pulse Resp BP Pulse Ox 03/18/19 15:28 98.1 F 62 20 129/56 L 93 Laboratory Results 03/18/19 16:19 03/18/19 16:19 03/18/19 03/18/19 03/18/19 Range/Units 16:19 16:19 16:19 WBC (4.8-10.8) K/uL RBC (4.7-6.1) M/uL Hgb (14.0-18.0) g/dL Hct (42-52) % MCV (80-100) fL MCH (25-34) pg MCHC (32-36) g/dL RDW Std Deviation (36.4-46.3) fL RDW Coeff of Jose C (11.5-14.5) % Plt Count (130-400) K/uL MPV (7.4-10.4) fL Immature Gran % (Auto) % Neut % (Auto) % Lymph % (Auto) % White % (Auto) % Eos % (Auto) % Baso % (Auto) % Immature Gran # (Auto) (0.00-0.02) K/uL Neut # (Auto) (1.4-6.5) K/uL Lymph # (Auto) (1.2-3.4) K/uL White # (Auto) (0.11-0.59) K/uL Eos # (Auto) (0-0.5) K/uL Baso # (Auto) (0-0.2) K/uL Hypochromasia PT 11.3 (9.0-12.0) Seconds INR 1.1 (0.9-1.1) APTT 25.6 (21.0-31.0) Seconds PTT Ratio 0.9 Sodium 140 (136-145) mmol/L Potassium 4.1 (3.5-5.1) mmol/L Chloride 103 (98-107) mmol/L Carbon Dioxide 26 (21-32) mmol/L Anion Gap 11.0 (3-11) BUN 101 H (7-18) mg/dl Creatinine 7.44 H* (0.6-1.4) mg/dl Est Cr Clr Drug Dosing 10.7 ml/min Est GFR ( Amer) 7.5 Est GFR (Non-Af Amer) 6.4 BUN/Creatinine Ratio 13.5 (10-20) Glucose 186 H (70-99) mg/dl Calcium 8.6 (8.5-10.1) mg/dl Magnesium 2.0 (1.8-2.4) mg/dl Total Bilirubin 0.5 (0.2-1) mg/dl AST 10 L (15-37) U/L ALT 16 (12-78) U/L Alkaline Phosphatase 108 (45-117) U/L Troponin I 0.086 H* (0-0.045) ng/ml Total Protein 6.1 L (6.4-8.2) gm/dl Albumin 2.8 L (3.4-5.0) gm/dl Globulin 3.3 (2.5-4.0) gm/dl Albumin/Globulin Ratio 0.8 L (0.9-2) Lipase 299 (73-393) U/L Blood Type B Positive Antibody Screen NEGATIVE Crossmatch See Detail 03/18/19 Range/Units 16:19 WBC 3.47 L (4.8-10.8) K/uL RBC 2.11 L (4.7-6.1) M/uL Hgb 6.1 L* (14.0-18.0) g/dL Hct 19.0 L* (42-52) % MCV 90.0 (80-100) fL MCH 28.9 (25-34) pg MCHC 32.1 (32-36) g/dL RDW Std Deviation 58.2 H (36.4-46.3) fL RDW Coeff of Jose C 17.4 H (11.5-14.5) % Plt Count 154 (130-400) K/uL MPV 11.3 H (7.4-10.4) fL Immature Gran % (Auto) 0.0 % Neut % (Auto) 70.6 % Lymph % (Auto) 12.7 % White % (Auto) 13.8 % Eos % (Auto) 2.6 % Baso % (Auto) 0.3 % Immature Gran # (Auto) 0.00 (0.00-0.02) K/uL Neut # (Auto) 2.45 (1.4-6.5) K/uL Lymph # (Auto) 0.44 L (1.2-3.4) K/uL White # (Auto) 0.48 (0.11-0.59) K/uL Eos # (Auto) 0.09 (0-0.5) K/uL Baso # (Auto) 0.01 (0-0.2) K/uL Hypochromasia Present PT (9.0-12.0) Seconds INR (0.9-1.1) APTT (21.0-31.0) Seconds PTT Ratio Sodium (136-145) mmol/L Potassium (3.5-5.1) mmol/L Chloride (98-107) mmol/L Carbon Dioxide (21-32) mmol/L Anion Gap (3-11) BUN (7-18) mg/dl Creatinine (0.6-1.4) mg/dl Est Cr Clr Drug Dosing ml/min Est GFR ( Amer) Est GFR (Non-Af Amer) BUN/Creatinine Ratio (10-20) Glucose (70-99) mg/dl Calcium (8.5-10.1) mg/dl Magnesium (1.8-2.4) mg/dl Total Bilirubin (0.2-1) mg/dl AST (15-37) U/L ALT (12-78) U/L Alkaline Phosphatase (45-117) U/L Troponin I (0-0.045) ng/ml Total Protein (6.4-8.2) gm/dl Albumin (3.4-5.0) gm/dl Globulin (2.5-4.0) gm/dl Albumin/Globulin Ratio (0.9-2) Lipase (73-393) U/L Blood Type Antibody Screen Crossmatch Diagnostic Findings XR knee LT 3V CLINICAL HISTORY: fall, pain trauma. Pain. COMPARISON: None. DISCUSSION: Generalized degenerative change. No evidence for fracture or dislocation. Mild chondrocalcinosis on a degenerative basis. Soft tissue vascular calcifications. There is no evidence for soft tissue swelling. IMPRESSION: Moderate degenerative change. No acute bony abnormality. Code Status & VTE Plan Code Status full code PG Care Time/CCT Total # of Minutes Spent Total Time Spent with Patient: Total time spent is greater than 50% in coordination of care (as documented) at patient's floor/unit and/or counseling patient: (1) GI bleed GI bleed type/associated pathology: unspecified gastrointestinal hemorrhage type Qualified Code(s): K92.2 - Gastrointestinal hemorrhage, unspecified (2) Anemia Anemia type: unspecified type Qualified Code(s): D64.9 - Anemia, unspecified (3) Hypothyroidism Hypothyroidism type: acquired Qualified Code(s): E03.9 - Hypothyroidism, unspecified (4) COPD (chronic obstructive pulmonary disease) COPD type: unspecified COPD Qualified Code(s): J44.9 - Chronic obstructive pulmonary disease, unspecified (5) Gastric ulcer Gastric ulcer chronicity: acute Gastric ulcer complication status: with hemorrhage Qualified Code(s): K25.0 - Acute gastric ulcer with hemorrhage (6) Hypertension Hypertension type: essential hypertension Qualified Code(s): I10 - Essential (primary) hypertension
[2019-03-18] MEDS ORDERED: SODIUM CHLORIDE 0.9% 1000ML 1,000 ML IV SCH (19:32)
[2019-03-18] MEDS ORDERED: ONDANSETRON INJ 2 MG/ML 2 ML VIAL IV PRN (19:32)
[2019-03-18] MEDS: ROSUVASTATIN CALCIUM 20 MG TAB PO SCH (21:51)
[2019-03-18] MEDS: LABETALOL HCL 100 MG TAB PO SCH (21:51)
[2019-03-18] MEDS: AMLODIPINE BESYLATE 5 MG TAB PO SCH (21:51)
[2019-03-18] MEDS: TAMSULOSIN HCL 0.4 MG CAP PO SCH (21:51)
[2019-03-18] MEDS: GABAPENTIN 100 MG CAP PO SCH (21:51)
[2019-03-19] MEDS: PANTOprazole 40 MG in DEXTROSE 5% 100 ML IV SCH ×3 (02:29→12:18)
[2019-03-19] MEDS ORDERED: GLUCAGON FOR INJ 1 MG VIAL SQ PRN (02:33)
[2019-03-19] MEDS ORDERED: GLUCOSE 10 TABS/TUBE PO PRN (02:33)
[2019-03-19] MEDS ORDERED: CARBOHYDRATES FOR HYPOGLYCEMIA PO PRN (02:33)
[2019-03-19] MEDS ORDERED: DEXTROSE 50% 50 ML SYRINGE IV PRN (02:33)
[2019-03-19] MEDS ORDERED: GLUCOSE 40% GEL 15 GM TUBE PO PRN (02:33)
[2019-03-19] MEDS ORDERED: D5W AND 1/2NSS 1,000 ML IV SCH (02:45)
[2019-03-19] MEDS: ACETAMINOPHEN 325 MG TAB PO PRN ×2 (02:52→20:33)
[2019-03-19] MEDS: LEVOTHYROXINE SODIUM 50 MCG TABLET PO SCH (03:06)
[2019-03-19] MEDS: LEVOTHYROXINE SODIUM 200 MCG TABLET PO SCH (03:06)
[2019-03-19] MEDS ORDERED: SODIUM CHLORIDE 0.9% 1000ML 1,000 ML IV PRN (07:00)
[2019-03-19] MEDS ORDERED: EPOETIN ALFA 4,000 UNIT/ML VIAL IV ONE (07:00)
[2019-03-19 07:52] LABS: Basophils # (auto) 0.01 K/uL (0-0.2); Basophils % (auto) 0.3 %; Eosinophils # (auto) 0.13 K/uL (0-0.5); Eosinophils % (auto) 4.2 %; Hematocrit (blood only) 21.2 % (42-52); Hemoglobin 6.8 g/dL (14.0-18.0); Lymphocytes # (auto) 0.55 K/uL (1.2-3.4); Lymphocytes % (auto) 17.9 %; Mean Corpuscular Hemoglobin 28.6 pg (25-34); Mean Corpuscular Hgb Conc 32.1 g/dL (32-36); Mean Corpuscular Volume 89.1 fL (80-100); Mean Platelet Volume 9.7 fL (7.4-10.4); Monocytes # (auto) 0.35 K/uL (0.11-0.59); Monocytes % (auto) 11.4 %; Neutrophils # (auto) 2.04 K/uL (1.4-6.5); Neutrophils % (auto) 66.2 %; Platelet Count 133 K/uL (130-400); RDW Coefficient of Variation 16.5 % (11.5-14.5); RDW Standard Deviation 53.5 fL (36.4-46.3); Red Blood Count 2.38 M/uL (4.7-6.1); White Blood Count 3.08 K/uL (4.8-10.8)
[2019-03-19] MEDS ORDERED: SODIUM CHLORIDE 0.9% 250 ML IV PRN ×2 (07:55→08:52)
[2019-03-19] MEDS ORDERED: [UNRECOGNIZED DRUG - OTHER] PO SCH (08:00)
[2019-03-19 08:25] LABS: BUN Creatinine Ratio 15.3 (10-20); Calcium 8.6 mg/dl (8.5-10.1); Creatinine Clr Calc Pharmacy 9.6 ml/min; Est GFR (African American) 6.6; Est GFR (Non-African American) 5.7; Potassium 3.8 mmol/L (3.5-5.1)
[2019-03-19] MEDS: INSULIN ASPART 100 UNITS/ML 3 ML PEN SC SCH ×4 (09:00→20:37)
[2019-03-19] MEDS: FUROSEMIDE 80 MG TAB PO SCH ×2 (09:02→17:00)
[2019-03-19] MEDS: NEPHROCAPS PO SCH (09:03)
[2019-03-19] MEDS: LABETALOL HCL 100 MG TAB PO SCH ×2 (09:03→20:35)
[2019-03-19] MEDS: DOXAZOSIN MESYLATE 1 MG TAB PO SCH (09:03)
[2019-03-19] MEDS: DOCUSATE SODIUM 100 MG CAP PO SCH (09:04)
--- NOTE | 2019-03-19 09:07 | Nephrology Consultation ---
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 Admitted with GI bleeding with hemoglobin 6.1, received 2 units of PRBC and hemoglobin improved to only 6.8 suggestive of ongoing blood loss and currently pending GI evaluation with history of multiple hospital admission for upper GI bleeding, prior EGD and colonoscopy.Recent EGD with GAVE and had plan for repeat EGD in few weeks. --plan for dialysis today as his regular schedule --will give 2 more units of blood transfusion during dialysis this morning --Epogen with HD --plan for EGD this afternoon Will follow Thank you for allowing me to participate in your patient's care. It was a pleasure to see Augie (2) Secondary hyperparathyroidism of renal origin: (3) Hypertension: (4) Anemia: (5) Gastric AV malformation: History of Present Illness Reason for Consultation: End-stage renal disease on hemodialysis admitted with GI bleeding. Attending Physician: Stephen Gold MD History of Present Illness Darnell Mcintyre is a 78-year-old gentlemen with past medical history significant for hypertension, diabetes, end-stage renal disease on hemodialysis, anemia, GI bleeding admitted to the hospital with acute drop in hemoglobin secondary to active GI bleeding. Nephrology consult was requested to manage hemodialysis while inpatient. Electronic medical records including labs and imaging were reviewed in detail during patient's visit. Augie presented to emergency room with history of dark stool from the day prior, feeling fatigued and tired for last 1 week. On admission he was found to have hemoglobin of 6.1 Recently he was started on iron containing phosphate binder and he surely thought that could be the reason for dark stool however came to the ED for further evaluation. On admission his hemoglobin was 6.1, received 2 units of blood transfusion and hemoglobin increased to 6.8 this morning. Was hospitalized 2 weeks ago with GI bleeding, evaluated by GI and had EGD showing GAVE. There was plan to do another EGD in 4-6 weeks. Volume status acceptable, other electrolyte stable. Has been NPO pending GI evaluation. Has end-stage renal disease secondary to diabetic and hypertensive nephropathy, has been on dialysis Saturday, , Saturday. Over last to 3 years he had been extremely noncompliant with dialysis treatment and repeatedly missing dialysis for weeks and then ended up coming to the emergency room. He has been going for dialysis regularly for last 1 month. When he was seen of for monthly visit last week he was found to have increased lower extremity edema and lower extremity superficial ulceration. [facility] was [facility], diuretics dose was increased to Lasix 80 mg twice a day and started on Keflex 500 b.i.d. for 7 days. On admission he was continued on Keflex. Lower extremity edema seem to have somewhat improved. Currently continues to feel tired and weak. Denies SOB. Allergies Allergy/AdvReac Type Severity Reaction Status Date / Time tramadol AdvReac Severe disorented Verified 03/06/19 15:08 ,falling down metformin AdvReac Intermediate CONFUSION Verified 03/06/19 15:08 Home Medications Home Medications Medication Instructions Recorded Confirmed Type pantoprazole 40 mg PO BID #60 tab 04/23/18 03/18/19 Rx amlodipine 10 mg tablet 10 mg PO HS #90 tab 11/12/18 03/18/19 Rx labetalol 100 mg tablet 400 mg PO BID #720 tab 12/08/18 03/18/19 Rx doxazosin 1 mg tablet 1 mg PO DAILY #90 tab 12/23/18 03/18/19 Rx tamsulosin 0.4 mg PO HS #90 cap 01/02/19 03/18/19 Rx docusate sodium 100 mg capsule 200 mg PO QAM #30 cap 01/19/19 03/18/19 Rx furosemide 80 mg tablet 80 mg PO AMPM #60 tab 01/19/19 03/18/19 Rx rosuvastatin 20 mg tablet 20 mg PO QPM #90 tab 01/19/19 03/18/19 Rx gabapentin 100 mg capsule 200 mg PO HS #60 cap 02/04/19 03/18/19 Rx Renal Caps 1 mg PO DAILY 02/15/19 03/18/19 History levothyroxine 50 mcg PO DAILY 02/15/19 03/18/19 History levothyroxine 200 mcg PO DAILY 02/15/19 03/18/19 History hydralazine 25 mg PO TIDM 30 Days #30 tab 02/18/19 03/18/19 Rx lisinopril 40 mg tablet 40 mg PO DAILY@1200 #90 tab 02/26/19 03/18/19 Rx Levemir U-100 Insulin 20 units SUBCUT HS 03/05/19 03/18/19 History ferric citrate [Auryxia] 420 mg PO TIDM 03/18/19 03/18/19 History nut.tx.gluc intol,lf,soy-fiber 1 ea PO TIDM 03/18/19 03/18/19 History [Boost Glucose Control] Patient History Medical History AVF (arteriovenous fistula) Hypnic jerks Uncontrolled daytime somnolence Hyperlipidemia LDL goal <70 Personal history of noncompliance with medical treatment, presenting hazards to health Cellulitis of left lower extremity without foot Volume overload Mitral regurgitation Anxiety Arthritis BMI 40.0-44.9, adult Chronic diastolic congestive heart failure Chronic kidney disease, stage IV (severe) 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, with long-term current use of insulin Depression Diabetic peripheral neuropathy ESRD (end stage renal disease) on dialysis Hiatal hernia with GERD without esophagitis Hearing difficulty IgG monoclonal gammopathy Memory loss Nephrotic syndrome Obstructive sleep apnea Occlusion and stenosis of unspecified carotid artery Osteoporosis Peripheral vascular disease Pulmonary hypertension Vitamin D deficiency Anemia Gastric ulcer CAD (coronary artery disease) BPH (benign prostatic hyperplasia) Hypothyroidism Hypertension Asthma Secondary hyperparathyroidism of renal origin COPD (chronic obstructive pulmonary disease) Acute on chronic respiratory failure (Resolved) Altered mental status (Resolved) Chest pain (Resolved) Elevated troponin (Resolved) Encephalopathy (Resolved) Epistaxis (Resolved) Fluid overload (Resolved) Hypertensive urgency (Resolved) Hypoxia (Resolved) Abnormal colonoscopy Surgical History H/O cardiac catheterization H/O esophagogastroduodenoscopy 02/16/19 [facility]- Dr. Mando White. 50mg propofol, no issues. H/O esophagogastroduodenoscopy 03/06/19 [facility] H/O hemorrhoidectomy Hx of cholecystectomy No pertinent past surgical history Family History Unknown Myocardial infarction Diabetes Mother Diabetes Gallbladder disease Hypertension Breast cancer late 70s Father Diabetes Hypertension Brother Diabetes Hypertension Kidney disease Social History Preferred Language: Irish Communication Ability: Effective On Site Nurse Required: No Beliefs That Will Affect Care: None marital status: Current Living Situation: Spouse current occupational status: employed current occupation: works part-time at [employer] Other Information That Helps Us Care for You: No Feels Safe at Home: Yes Safety Concerns: Feels Safe At This Time Smoking Status: Never smoker Tobacco Type: cigarettes ; Do You Dip or Chew Tobacco: No ; Number of Years Since Quit: 25 ; Second Hand Exposure: No ; Tobacco Cessation Education Requested by Patient: No Hx Alcohol Use: No Hx Substance Use: No Childhood Exposure to Second-Hand Smoke: No caffeine: Yes Dental Care, Regularly: Yes Physical Activity Frequency Comment: limited due physical condition Seatbelt Use: sometimes Review of Systems Review of Systems: All systems reviewed & are unremarkable except as noted in HPI & below Physical Exam Constitutional: WD/WN, vitals as above + ill appearing and + frail appearing; no acute distress Eyes: PERRL, conjunctivae normal, anicteric sclerae ENMT: external ear and nose normal, oropharynx normal Ears: no hearing impairment Neck: trachea midline Respiratory: normal respiratory effort, lungs clear to auscultation no cough Auscultation: no crackles, no rales and no wheezes Cardiovascular: Rate/Rhythm: regular rate and regular rhythm Heart Sounds: normal S1 and normal S2 Extremities: + edema Chest (Breasts): Chest: normal inspection of chest Gastrointestinal (Abdomen): normal bowel sounds, soft, nontender, no hepatosplenomegaly Percussion/Palpation: abdomen nontender, no guarding and abdomen not rigid Musculoskeletal: Shoulder: + skin erythema (Erythema of Left lower extremity with edema and tenderness) Skin: no rashes, warm and dry Neurologic: moves all extremities and awake Psychiatric: A+Ox3, euthymic affect Results & Data Vital Signs (Past 12 Hours) Vital Signs Temp Pulse Pulse Resp BP BP Pulse Ox 03/19/19 08:41 36.3 C L 59 L 18 149/67 H 97 03/19/19 07:42 36.7 C 57 L 18 142/67 H 95 03/19/19 03:11 36.6 C 62 95 H 155/62 H 95 03/19/19 00:00 61 03/18/19 23:05 36.3 C L 66 20 156/66 H 95 03/18/19 22:05 36.3 C L 64 20 169/69 H 96 03/18/19 21:35 36.7 C 64 18 173/68 H 97 03/18/19 21:20 36.4 C L 66 20 162/57 H 90 03/18/19 21:15 36.4 C L 66 18 162/57 H 90 PG Care Time/CCT Total # of Minutes Spent Total Time Spent with Patient: Total time spent is greater than 50% in coordination of care (as documented) at patient's floor/unit and/or counseling patient: (1) Hypertension Hypertension type: essential hypertension Qualified Code(s): I10 - Essential (primary) hypertension
[2019-03-19 12:52] LABS: Hepatitis B Surface Ab Quant 45.27 mIU/mL (>or=10mIU/mL Immune); Hepatitis B Surface Antibody Immune
[2019-03-19 13:03] LABS: Hepatitis B Surface Antigen Neg (Neg)
[2019-03-19] MEDS: lisinopriL 40 MG TAB PO SCH (14:39)
--- NOTE | 2019-03-19 15:32 | Anesthesiology Consultation ---
Date of Service March 19, 2019 Assessment & Plan Chart Review Chart Review: Acceptable Risk for Surgery and Patient NOT seen in Pre Admission Testing Consults Requested none History Surgery Operation Date: 03/19/19 09:30 Proposed Procedures p Esophagogastroduodenoscopy Dr Christopher White Height/Weight Height: 6 ft 2 in Weight: 99.4 kg Allergies Allergy/AdvReac Type Severity Reaction Status Date / Time tramadol AdvReac Severe disorented Verified 03/06/19 15:08 ,falling down metformin AdvReac Intermediate CONFUSION Verified 03/06/19 15:08 Medications Home Medications Medication Instructions Recorded Confirmed Last Taken pantoprazole 40 mg PO BID #60 tab 04/23/18 03/18/19 03/05/19 amlodipine 10 mg tablet 10 mg PO HS #90 tab 11/12/18 03/18/19 03/04/19 labetalol 100 mg tablet 400 mg PO BID #720 tab 12/08/18 03/18/19 03/05/19 doxazosin 1 mg tablet 1 mg PO DAILY #90 tab 12/23/18 03/18/19 03/04/19 tamsulosin 0.4 mg PO HS #90 cap 01/02/19 03/18/19 03/04/19 docusate sodium 100 mg capsule 200 mg PO QAM #30 cap 01/19/19 03/18/19 03/05/19 furosemide 80 mg tablet 80 mg PO AMPM #60 tab 01/19/19 03/18/19 03/05/19 rosuvastatin 20 mg tablet 20 mg PO QPM #90 tab 01/19/19 03/18/19 03/04/19 gabapentin 100 mg capsule 200 mg PO HS #60 cap 02/04/19 03/18/19 03/04/19 Renal Caps 1 mg PO DAILY 02/15/19 03/18/19 03/04/19 levothyroxine 50 mcg PO DAILY 02/15/19 03/18/19 03/05/19 levothyroxine 200 mcg PO DAILY 02/15/19 03/18/19 03/05/19 hydralazine 25 mg PO TIDM 30 Days #30 tab 02/18/19 03/18/19 03/05/19 lisinopril 40 mg tablet 40 mg PO DAILY@1200 #90 tab 09/03/18/19 03/04/19 Levemir U-100 Insulin 20 units SUBCUT HS 03/05/19 03/18/19 03/04/19 ferric citrate [Auryxia] 420 mg PO TIDM 03/18/19 03/18/19 Unknown nut.tx.gluc intol,lf,soy-fiber 1 ea PO TIDM 03/18/19 03/18/19 Unknown [Boost Glucose Control] Active Medications Generic Name Dose Route Start Last Admin Trade Name Freq PRN Reason Stop Dose Admin Acetaminophen 650 mg 03/19/19 02:46 03/19/19 02:52 Tylenol PO 04/18/19 02:45 650 mg Q4H PRN Administration Pain or Fever Amlodipine Besylate 10 mg 03/18/19 21:00 03/18/19 21:51 Norvasc PO 04/17/19 20:59 10 mg HS SHANTA Administration Docusate Sodium 200 mg 03/19/19 09:00 03/19/19 09:04 Colace PO 04/18/19 08:59 200 mg QAM SHANTA Administration Doxazosin Mesylate 1 mg 03/19/19 09:00 03/19/19 09:03 Cardura PO 04/18/19 08:59 1 mg DAILY SHANTA Administration Furosemide 80 mg 03/19/19 09:00 03/19/19 09:02 Lasix PO 04/18/19 08:59 80 mg BID17 SHANTA Administration Gabapentin 200 mg 03/18/19 21:00 03/18/19 21:51 Neurontin PO 04/17/19 20:59 200 mg HS SHANTA Administration Hydralazine HCl 25 mg 03/19/19 08:00 03/19/19 14:39 Apresoline PO 04/18/19 07:59 25 mg TIDM SHANTA Administration Pantoprazole Sodium 40 mg/ 100 mls @ 20 mls/hr 03/18/19 16:15 03/19/19 12:18 Dextrose IV 04/17/19 16:14 20 mls/hr Q5H SHANTA Administration Dextrose/Sodium Chloride 1,000 mls @ 40 mls/hr 03/19/19 02:45 03/19/19 02:52 D5w And 1/2nss IV 04/18/19 02:44 40 mls/hr .Q24H SHANTA Administration Insulin Aspart 0 units 03/19/19 07:30 03/19/19 13:26 Novolog Flexpen SC 04/18/19 07:29 Not Given ACHS SHANTA Labetalol HCl 400 mg 03/18/19 21:00 03/19/19 09:03 Normodyne PO 04/17/19 20:59 400 mg BID SHANTA Administration Levothyroxine Sodium 50 mcg 03/19/19 06:30 03/19/19 03:06 Synthroid PO 04/18/19 06:29 50 mcg DAILYBB SHANTA Administration Levothyroxine Sodium 200 mcg 03/19/19 06:30 03/19/19 03:06 Synthroid PO 04/18/19 06:29 200 mcg DAILYBB SHANTA Administration Lisinopril 40 mg 03/19/19 12:00 03/19/19 14:39 Zestril PO 04/18/19 11:59 40 mg DAILY@1200 SHANTA Administration Rosuvastatin Calcium 20 mg 03/18/19 21:00 03/18/19 21:51 Crestor PO 04/17/19 20:59 20 mg QPM SHANTA Administration Tamsulosin HCl 0.4 mg 03/18/19 21:00 03/18/19 21:51 Flomax PO 04/17/19 20:59 0.4 mg HS SHANTA Administration Vitamin B Complex/Folic Acid 1 cap 03/19/19 09:00 03/19/19 09:03 Nephrocaps PO 04/18/19 08:59 1 cap DAILY SHANTA Administration NPO Date Last Intake of Fluids: 03/19/19 Time Last Intake of Fluids: 07:30 Last Intake of Fluids Comment: sips with morning medications Date Last Intake of Solids: 03/18/19 Time Last Intake of Solids: 06:30 Past Medical History Medical History AVF (arteriovenous fistula) Hypnic jerks Uncontrolled daytime somnolence Hyperlipidemia LDL goal <70 Personal history of noncompliance with medical treatment, presenting hazards to health Cellulitis of left lower extremity without foot Volume overload Mitral regurgitation Anxiety Arthritis BMI 40.0-44.9, adult Chronic diastolic congestive heart failure Chronic kidney disease, stage IV (severe) 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, with long-term current use of insulin Depression Diabetic peripheral neuropathy ESRD (end stage renal disease) on dialysis Hiatal hernia with GERD without esophagitis Hearing difficulty IgG monoclonal gammopathy Memory loss Nephrotic syndrome Obstructive sleep apnea Occlusion and stenosis of unspecified carotid artery Osteoporosis Peripheral vascular disease Pulmonary hypertension Vitamin D deficiency Anemia Gastric ulcer CAD (coronary artery disease) BPH (benign prostatic hyperplasia) Hypothyroidism Hypertension Asthma Secondary hyperparathyroidism of renal origin COPD (chronic obstructive pulmonary disease) Acute on chronic respiratory failure (Resolved) Altered mental status (Resolved) Chest pain (Resolved) Elevated troponin (Resolved) Encephalopathy (Resolved) Epistaxis (Resolved) Fluid overload (Resolved) Hypertensive urgency (Resolved) Hypoxia (Resolved) Abnormal colonoscopy Past Family History Family History Unknown Myocardial infarction Diabetes Mother Diabetes Gallbladder disease Hypertension Breast cancer late 70s Father Diabetes Hypertension Brother Diabetes Hypertension Kidney disease Past Surgical History Surgical History H/O cardiac catheterization H/O esophagogastroduodenoscopy 02/16/19 [facility]- Dr. Mando White. 50mg propofol, no issues. H/O esophagogastroduodenoscopy 03/06/19 [facility] H/O hemorrhoidectomy Hx of cholecystectomy No pertinent past surgical history Social History Smoking Status: Never smoker tobacco type: cigarettes Do You Dip or Chew Tobacco: No Hx Alcohol Use: No Hx Substance Use: No substance use type: does not use Physical Exam Vital Signs Last Vital Signs Temp 36.3 C L 03/19/19 15:24 Pulse 63 03/19/19 15:24 Resp 18 03/19/19 15:24 BP 159/94 H 03/19/19 15:24 Pulse Ox 93 03/19/19 15:24 Testing Laboratory Results 03/19/19 07:32 03/19/19 07:32 PT 11.3 Seconds (9.0-12.0) 03/18/19 16:19 INR 1.1 (0.9-1.1) 03/18/19 16:19 APTT 25.6 Seconds (21.0-31.0) 03/18/19 16:19 Blood Type B Positive 03/18/19 16:19 Antibody Screen NEGATIVE 03/18/19 16:19 03/19/19 11:51 POC Glucose 110 H
[2019-03-19] MEDS ORDERED: ATROPINE SULFATE 0.1 MG/ML 10ML SYR IV PRN (15:34)
[2019-03-19] MEDS ORDERED: PROPOFOL IV EMULSION 10 MG/ML 20 ML VIAL IV ONE (15:34)
[2019-03-19] MEDS ORDERED: LIDOCAINE HCL 2% 2 ML VIAL/AMP(20MG/ML) INFIL ONE (15:34)
[2019-03-19] MEDS ORDERED: ePHEDrine sulfate 50 MG/ML AMP IV PRN (15:34)
--- NOTE | 2019-03-19 15:38 | History & Physical Report ---
Date of Service March 19, 2019 History of Present Illness Chief Complaint: anemia Primary Care Provider: Mahsa Wang DO For EGD Allergies Allergy/AdvReac Type Severity Reaction Status Date / Time tramadol AdvReac Severe disorented Verified 03/06/19 15:08 ,falling down metformin AdvReac Intermediate CONFUSION Verified 03/06/19 15:08 Home Medications Home Medications Medication Instructions Recorded Confirmed Type pantoprazole 40 mg PO BID #60 tab 04/23/18 03/18/19 Rx amlodipine 10 mg tablet 10 mg PO HS #90 tab 11/12/18 03/18/19 Rx labetalol 100 mg tablet 400 mg PO BID #720 tab 12/08/18 03/18/19 Rx doxazosin 1 mg tablet 1 mg PO DAILY #90 tab 12/23/18 03/18/19 Rx tamsulosin 0.4 mg PO HS #90 cap 01/02/19 03/18/19 Rx docusate sodium 100 mg capsule 200 mg PO QAM #30 cap 01/19/19 03/18/19 Rx furosemide 80 mg tablet 80 mg PO AMPM #60 tab 01/19/19 03/18/19 Rx rosuvastatin 20 mg tablet 20 mg PO QPM #90 tab 01/19/19 03/18/19 Rx gabapentin 100 mg capsule 200 mg PO HS #60 cap 02/04/19 03/18/19 Rx Renal Caps 1 mg PO DAILY 02/15/19 03/18/19 History levothyroxine 50 mcg PO DAILY 02/15/19 03/18/19 History levothyroxine 200 mcg PO DAILY 02/15/19 03/18/19 History hydralazine 25 mg PO TIDM 30 Days #30 tab 02/18/19 03/18/19 Rx lisinopril 40 mg tablet 40 mg PO DAILY@1200 #90 tab 02/26/19 03/18/19 Rx Levemir U-100 Insulin 20 units SUBCUT HS 03/05/19 03/18/19 History ferric citrate [Auryxia] 420 mg PO TIDM 03/18/19 03/18/19 History nut.tx.gluc intol,lf,soy-fiber 1 ea PO TIDM 03/18/19 03/18/19 History [Boost Glucose Control] Past Med/Surg History Medical History AVF (arteriovenous fistula) Katelynn bocanegra Uncontrolled daytime somnolence Hyperlipidemia LDL goal <70 Personal history of noncompliance with medical treatment, presenting hazards to health Cellulitis of left lower extremity without foot Volume overload Mitral regurgitation Anxiety Arthritis BMI 40.0-44.9, adult Chronic diastolic congestive heart failure Chronic kidney disease, stage IV (severe) 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, with long-term current use of insulin Depression Diabetic peripheral neuropathy ESRD (end stage renal disease) on dialysis Hiatal hernia with GERD without esophagitis Hearing difficulty IgG monoclonal gammopathy Memory loss Nephrotic syndrome Obstructive sleep apnea Occlusion and stenosis of unspecified carotid artery Osteoporosis Peripheral vascular disease Pulmonary hypertension Vitamin D deficiency Anemia Gastric ulcer CAD (coronary artery disease) BPH (benign prostatic hyperplasia) Hypothyroidism Hypertension Asthma Secondary hyperparathyroidism of renal origin COPD (chronic obstructive pulmonary disease) Acute on chronic respiratory failure (Resolved) Altered mental status (Resolved) Chest pain (Resolved) Elevated troponin (Resolved) Encephalopathy (Resolved) Epistaxis (Resolved) Fluid overload (Resolved) Hypertensive urgency (Resolved) Hypoxia (Resolved) Abnormal colonoscopy Surgical History H/O cardiac catheterization H/O esophagogastroduodenoscopy 02/16/19 [facility]- Dr. Mando White. 50mg propofol, no issues. H/O esophagogastroduodenoscopy 03/06/19 [facility] H/O hemorrhoidectomy Hx of cholecystectomy No pertinent past surgical history Family History Unknown Myocardial infarction Diabetes Mother Diabetes Gallbladder disease Hypertension Breast cancer late 70s Father Diabetes Hypertension Brother Diabetes Hypertension Kidney disease Social History Preferred Language: Greenlandic Communication Ability: Effective Capital Markets Specialist Required: No Beliefs That Will Affect Care: None marital status: Current Living Situation: Spouse current occupational status: employed current occupation: works part-time at [employer] Other Information That Helps Us Care for You: No Feels Safe at Home: Yes Safety Concerns: Feels Safe At This Time Smoking Status: Never smoker Tobacco Type: cigarettes ; Do You Dip or Chew Tobacco: No ; Number of Years Since Quit: 25 ; Second Hand Exposure: No ; Tobacco Cessation Education Requested by Patient: No Hx Alcohol Use: No Hx Substance Use: No Childhood Exposure to Second-Hand Smoke: No caffeine: Yes Dental Care, Regularly: Yes Physical Activity Frequency Comment: limited due physical condition Seatbelt Use: sometimes Physical Exam Constitutional: + ill appearing Respiratory: normal respiratory effort Cardiovascular: Rate/Rhythm: regular rate and regular rhythm Gastrointestinal (Abdomen): Percussion/Palpation: abdomen soft Skin: AV fistula in left arm Results & Data Vital Signs (Past 12 Hours) Vital Signs Temp Pulse Pulse Pulse Resp BP BP 03/19/19 15:24 36.3 C L 63 18 159/94 H 03/19/19 14:02 36.2 C L 62 62 173/68 H 173/68 H 03/19/19 14:00 62 178/67 H 03/19/19 13:40 59 L 174/61 H 03/19/19 13:20 59 L 165/68 H 03/19/19 13:00 58 L 161/67 H 03/19/19 12:51 36.3 C L 59 L 18 163/71 H 03/19/19 12:40 59 L 163/64 H 03/19/19 12:30 36.2 C L 58 L 18 163/64 H 03/19/19 12:20 57 L 156/70 H 03/19/19 12:15 36.2 C L 57 L 18 156/70 H 03/19/19 12:13 36.2 C L 16 156/70 H 03/19/19 12:00 56 L 154/65 H 03/19/19 11:40 55 L 145/65 H 03/19/19 11:24 36.3 C L 57 L 18 145/66 H 03/19/19 11:20 56 L 145/66 H 03/19/19 11:05 36.3 C L 54 L 18 136/68 03/19/19 11:00 53 L 136/68 03/19/19 10:50 36.3 C L 53 L 18 134/75 03/19/19 10:40 53 L 134/75 03/19/19 10:37 36.3 C L 54 L 18 137/67 03/19/19 10:24 36.2 C L 56 L 03/19/19 10:20 54 L 130/69 03/19/19 10:17 36.3 C L 55 L 18 130/69 03/19/19 10:08 56 L 145/63 H 03/19/19 09:46 36.2 C L 56 L 18 145/63 H 03/19/19 09:44 36.3 C L 58 L 18 153/70 H 03/19/19 09:16 36.3 C L 58 L 18 153/69 H 03/19/19 09:01 36.3 C L 58 L 18 158/69 H 03/19/19 08:41 36.3 C L 59 L 18 149/67 H 03/19/19 07:42 36.7 C 57 L 18 142/67 H Pulse Ox 03/19/19 15:24 93 03/19/19 14:02 03/19/19 14:00 03/19/19 13:40 03/19/19 13:20 03/19/19 13:00 03/19/19 12:51 95 03/19/19 12:40 03/19/19 12:30 95 03/19/19 12:20 03/19/19 12:15 95 03/19/19 12:13 99 03/19/19 12:00 03/19/19 11:40 03/19/19 11:24 88 L 03/19/19 11:20 03/19/19 11:05 91 03/19/19 11:00 03/19/19 10:50 91 03/19/19 10:40 03/19/19 10:37 95 03/19/19 10:24 03/19/19 10:20 03/19/19 10:17 97 03/19/19 10:08 03/19/19 09:46 91 03/19/19 09:44 93 03/19/19 09:16 94 03/19/19 09:01 99 03/19/19 08:41 97 03/19/19 07:42 95 Code Status & VTE Plan VTE Prophylaxis Plan VTE Prophylaxis will be ordered: Yes
[2019-03-19] MEDS ORDERED: SODIUM CHLORIDE 0.9% 1000ML 1,000 ML IV SCH (15:45)
--- NOTE | 2019-03-19 15:53 | Consultation Report ---
DATE OF CONSULTATION: 03/19/2019 GASTROINTESTINAL CONSULTATION REASON FOR EVALUATION: Anemia. HISTORY OF PRESENT ILLNESS: The patient is a 78-year-old with end-stage renal disease, on hemodialysis 3 days a week. The patient also has a history of gastric antral vascular ectasia and has been treated twice with argon plasma coagulation in the last 6 weeks. The patient was at dialysis yesterday and was feeling weak and was having black stools, but he is on iron. His hemoglobin was checked and was in the 6 range. He was hospitalized and so far has received 4 units of blood. He is referred for EGD for further evaluation of his antral ectasia. PAST MEDICAL HISTORY: Extensive and includes end-stage renal disease, on dialysis. He has a left arm fistula among other things. MEDICATIONS: Per list. ALLERGIES: TRAMADOL, METFORMIN. FAMILY HISTORY: Positive for heart disease and diabetes. His mother had gallbladder disease, hypertension, breast cancer. Father had diabetes, hypertension. Brother with diabetes, hypertension, kidney disease. SOCIAL HISTORY: The patient is and lives with his spouse. He does not smoke or drink. He is a former smoker. PHYSICAL EXAMINATION: GENERAL: The patient appears chronically ill. VITAL SIGNS: Blood pressure is 129/56, pulse 62. He is afebrile. He has a left arm fistula. LUNGS: Clear. HEART: Showed normal S1 and S2. Regular rate and rhythm. ABDOMEN: Soft and nontender. IMPRESSION: The patient has a hemoglobin of 6.1 prior to transfusion and history of gastric antral vascular ectasia. I plan on scoping him today for further evaluation and if present, we will treat with argon plasma coagulation.
--- NOTE | 2019-03-19 16:25 | GI REPORT ---
Patient Name: Darnell Mcintyre Procedure Date: 03/19/2019 3:31 PM Date of : 1940 Admit Type: Inpatient Age: 78 Gender: Male Attending MD: Mando Wihte MD Procedure: Upper GI endoscopy Providers: Mando White MD Referring MD: Stephen Gold Md Indications: Iron deficiency anemia secondary to chronic blood loss, Watermelon stomach (GAVE syndrome) Patient Profile: Refer to note in patient chart for documentation of history and physical. Medicines: Propofol total dose 120 mg IV, Lidocaine 60 mg IV Complications: No immediate complications. Estimated Blood Loss: Estimated blood loss was minimal. Procedure: Pre-Anesthesia Assessment: - Prior to the procedure, a History and Physical was performed, and patient medications, allergies and sensitivities were reviewed. The patient's tolerance of previous anesthesia was reviewed. - The risks and benefits of the procedure and the sedation options and risks were discussed with the patient. All questions were answered and informed consent was obtained. - The risks and benefits of the procedure and the sedation options and risks were discussed with the patient. All questions were answered and informed consent was obtained. After obtaining informed consent, the endoscope was passed under direct vision. Throughout the procedure, the patient's blood pressure, pulse, and oxygen saturations were monitored continuously.The upper GI endoscopy was accomplished without difficulty. The patient tolerated the procedure well. The scope was introduced through the mouth, and advanced to the second part of duodenum. Findings: The Z-line was regular and was found 41 cm from the incisors. The examined esophagus was normal. The examined duodenum was normal. Multiple stigmata of recent bleeding angioectasias were found in the gastric antrum. Coagulation for hemostasis using argon plasma at 0.3 liters/minute and 20 whitley was successful. Estimated blood loss was minimal. 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 Impression: - Z-line regular, 41 cm from the incisors. - Normal esophagus. - Normal examined duodenum. - Multiple recently bleeding angioectasias in the stomach. Treated with argon plasma coagulation (APC). - No specimens collected. Recommendation: - Return patient to hospital cheema for ongoing care. - Use sucralfate tablets 1 gram PO BID for 2 months. Carolyne Bruce B. Christopher, MD 03/19/2019 4:25:06 PM This report has been signed electronically. Note Initiated On: 03/19/2019 3:31 PM Number of Addenda: 0 I attest to the content of the Intraoperative Record and orders documented therein, exceptions below {[id number]}
--- NOTE | 2019-03-19 16:45 | Anesthesiology Progress Note ---
Date of Service March 19, 2019 Anesthesia Post Procedure Vital Signs Vital Signs: Temp Pulse Pulse Pulse Resp BP BP 03/19/19 16:34 62 18 167/87 H 03/19/19 16:19 63 62 16 134/58 L 03/19/19 16:00 03/19/19 15:24 36.3 C L 63 18 159/94 H 03/19/19 14:02 36.2 C L 62 62 173/68 H 173/68 H 03/19/19 14:00 62 178/67 H 03/19/19 13:40 59 L 174/61 H 03/19/19 13:20 59 L 165/68 H 03/19/19 13:00 58 L 161/67 H 03/19/19 12:51 36.3 C L 59 L 18 163/71 H 03/19/19 12:40 59 L 163/64 H 03/19/19 12:30 36.2 C L 58 L 18 163/64 H 03/19/19 12:20 57 L 156/70 H 03/19/19 12:15 36.2 C L 57 L 18 156/70 H 03/19/19 12:13 36.2 C L 16 156/70 H 03/19/19 12:00 56 L 154/65 H 03/19/19 11:40 55 L 145/65 H 03/19/19 11:24 36.3 C L 57 L 18 145/66 H 03/19/19 11:20 56 L 145/66 H 03/19/19 11:05 36.3 C L 54 L 18 136/68 03/19/19 11:00 53 L 136/68 03/19/19 10:50 36.3 C L 53 L 18 134/75 03/19/19 10:40 53 L 134/75 03/19/19 10:37 36.3 C L 54 L 18 137/67 03/19/19 10:24 36.2 C L 56 L 03/19/19 10:20 54 L 130/69 03/19/19 10:17 36.3 C L 55 L 18 130/69 03/19/19 10:08 56 L 145/63 H 03/19/19 09:46 36.2 C L 56 L 18 145/63 H 03/19/19 09:44 36.3 C L 58 L 18 153/70 H 03/19/19 09:16 36.3 C L 58 L 18 153/69 H 03/19/19 09:01 36.3 C L 58 L 18 158/69 H 03/19/19 08:41 36.3 C L 59 L 18 149/67 H 03/19/19 07:42 36.7 C 57 L 18 142/67 H 03/19/19 03:11 36.6 C 62 95 H 155/62 H 03/19/19 00:00 61 03/18/19 23:24 36.2 C L 59 L 18 159/73 H 03/18/19 23:05 36.3 C L 66 20 156/66 H 03/18/19 22:05 36.3 C L 64 20 169/69 H 03/18/19 21:35 36.7 C 64 18 173/68 H 03/18/19 21:20 36.4 C L 66 20 162/57 H 03/18/19 21:15 36.4 C L 66 18 162/57 H 03/18/19 20:30 36.4 C L 65 18 170/63 H 03/18/19 20:00 67 03/18/19 19:48 36.9 C 65 20 156/59 H 03/18/19 19:32 36.9 C 65 20 156/59 H 03/18/19 19:30 36.9 C 65 20 156/59 H 03/18/19 19:00 65 20 151/50 H 03/18/19 18:55 36.8 C 66 20 152/48 H 03/18/19 18:39 36.6 C 66 18 152/48 H 03/18/19 18:37 65 20 03/18/19 18:36 66 22 152/48 H 03/18/19 18:30 64 19 145/48 H 03/18/19 18:07 65 17 156/55 H 03/18/19 18:00 66 21 03/18/19 17:30 66 18 144/77 H 03/18/19 17:00 64 17 150/55 H Pulse Ox Pulse Ox 03/19/19 16:34 95 03/19/19 16:19 96 03/19/19 16:00 93 03/19/19 15:24 93 03/19/19 14:02 03/19/19 14:00 03/19/19 13:40 03/19/19 13:20 03/19/19 13:00 03/19/19 12:51 95 03/19/19 12:40 03/19/19 12:30 95 03/19/19 12:20 03/19/19 12:15 95 03/19/19 12:13 99 03/19/19 12:00 03/19/19 11:40 03/19/19 11:24 88 L 03/19/19 11:20 03/19/19 11:05 91 03/19/19 11:00 03/19/19 10:50 91 03/19/19 10:40 03/19/19 10:37 95 03/19/19 10:24 03/19/19 10:20 03/19/19 10:17 97 03/19/19 10:08 03/19/19 09:46 91 03/19/19 09:44 93 03/19/19 09:16 94 03/19/19 09:01 99 03/19/19 08:41 97 03/19/19 07:42 95 03/19/19 03:11 95 03/19/19 00:00 03/18/19 23:24 98 03/18/19 23:05 95 03/18/19 22:05 96 03/18/19 21:35 97 03/18/19 21:20 90 03/18/19 21:15 90 03/18/19 20:30 92 03/18/19 20:00 03/18/19 19:48 93 03/18/19 19:32 93 03/18/19 19:30 93 03/18/19 19:00 93 03/18/19 18:55 92 03/18/19 18:39 91 03/18/19 18:37 91 03/18/19 18:36 88 L 03/18/19 18:30 91 03/18/19 18:07 91 03/18/19 18:00 03/18/19 17:30 03/18/19 17:00 Transfer of Care Handoff Completed per policy Notes Mental Status: alert / awake / arousable Patient Amnestic to Procedure: Yes Nausea / Vomiting: adequately controlled Pain: adequately controlled Airway Patency, RR, SpO2: stable & adequate BP & HR: stable & adequate Hydration State: stable & adequate Anesthetic Complications: no major complications apparent and Pt Satisfied with anesthetic care
[2019-03-19] MEDS ORDERED: ALBUT/IPRATROP 3MG/0.5MG NEB 3 ML VIAL NEB PRN (17:57)
--- NOTE | 2019-03-19 17:57 | Hospitalist Progress Note ---
Date of Service March 19, 2019 Assessment & Plan (1) GI bleed: Due to angioectasias. Underwent EGD with Dr. White on 03/19 with argon beam lasering. 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 - See above (4) End-stage renal disease (ESRD): Completed HD on 03/19. - Appreciate nephrology consult (5) Chronic diastolic congestive heart failure: Last echo I see is from 04/2018. EF 65-70%. - Continue home medication. - Appears euvolemic today - Received HD with his blood, so hopefully will not affect his volume status greatly. (6) Diabetes: A1c was 6.5% in 02/2019. - Continue long-acting insulin - Sliding scale insulin - Glycemic pharmacist consult (7) Hypothyroidism: TSH was 12.7 in 10/2018 which was much higher than priors. - Check TSH in the morning - Continue Synthroid 250 mcg daily (8) Hypertension: BP was 170/90 after his EGD. - Continue home meds - amlodipine, doxazosin, Lasix, hydralazine, and lisinopril (9) COPD (chronic obstructive pulmonary disease): No shortness of breath at present. - DuoNebs PRN (10) DVT prophylaxis: SCDs - No heparin given recent bleeding Subjective In fairly good spirits after blood, HD, and EGD today. No pain. Reports no fevers/chills, chest pain, shortness of breath, abdominal pain, nausea, or vomiting. Physical Exam Constitutional: WD/WN, vitals as above cooperative and + edematous Eyes: EOM intact bilaterally; no conjunctival abnormality ENMT: external ear and nose normal, oropharynx normal Neck: trachea midline, no thyromegaly normal visual inspection Respiratory: normal respiratory effort, lungs clear to auscultation no respiratory distress Cardiovascular: RRR, no murmur, no edema Gastrointestinal (Abdomen): Inspection/Auscultation: abdomen normal to inspection; abdomen not distended Musculoskeletal: no cyanosis or clubbing, extremities motor strength 5/5 Skin: no rashes, warm and dry Neurologic: moves all extremities and awake Psychiatric: Orientation: alert, oriented to person and cooperative Results & Data Vital Signs (Past 12 Hours) Vital Signs Temp Pulse Pulse Pulse Resp BP BP 03/19/19 16:49 61 18 171/89 H 03/19/19 16:34 62 18 167/87 H 03/19/19 16:19 63 62 16 134/58 L 03/19/19 16:00 03/19/19 15:24 36.3 C L 63 18 159/94 H 03/19/19 14:02 36.2 C L 62 62 173/68 H 173/68 H 03/19/19 14:00 62 178/67 H 03/19/19 13:40 59 L 174/61 H 03/19/19 13:20 59 L 165/68 H 03/19/19 13:00 58 L 161/67 H 03/19/19 12:51 36.3 C L 59 L 18 163/71 H 03/19/19 12:40 59 L 163/64 H 03/19/19 12:30 36.2 C L 58 L 18 163/64 H 03/19/19 12:20 57 L 156/70 H 03/19/19 12:15 36.2 C L 57 L 18 156/70 H 03/19/19 12:13 36.2 C L 16 156/70 H 03/19/19 12:00 56 L 154/65 H 03/19/19 11:40 55 L 145/65 H 03/19/19 11:24 36.3 C L 57 L 18 145/66 H 03/19/19 11:20 56 L 145/66 H 03/19/19 11:05 36.3 C L 54 L 18 136/68 03/19/19 11:00 53 L 136/68 03/19/19 10:50 36.3 C L 53 L 18 134/75 03/19/19 10:40 53 L 134/75 03/19/19 10:37 36.3 C L 54 L 18 137/67 03/19/19 10:24 36.2 C L 56 L 03/19/19 10:20 54 L 130/69 03/19/19 10:17 36.3 C L 55 L 18 130/69 03/19/19 10:08 56 L 145/63 H 03/19/19 09:46 36.2 C L 56 L 18 145/63 H 03/19/19 09:44 36.3 C L 58 L 18 153/70 H 03/19/19 09:16 36.3 C L 58 L 18 153/69 H 03/19/19 09:01 36.3 C L 58 L 18 158/69 H 03/19/19 08:41 36.3 C L 59 L 18 149/67 H 03/19/19 07:42 36.7 C 57 L 18 142/67 H Pulse Ox Pulse Ox 03/19/19 16:49 96 03/19/19 16:34 95 03/19/19 16:19 96 03/19/19 16:00 93 03/19/19 15:24 93 03/19/19 14:02 03/19/19 14:00 03/19/19 13:40 03/19/19 13:20 03/19/19 13:00 03/19/19 12:51 95 03/19/19 12:40 03/19/19 12:30 95 03/19/19 12:20 03/19/19 12:15 95 03/19/19 12:13 99 03/19/19 12:00 03/19/19 11:40 03/19/19 11:24 88 L 03/19/19 11:20 03/19/19 11:05 91 03/19/19 11:00 03/19/19 10:50 91 03/19/19 10:40 03/19/19 10:37 95 03/19/19 10:24 03/19/19 10:20 03/19/19 10:17 97 03/19/19 10:08 03/19/19 09:46 91 03/19/19 09:44 93 03/19/19 09:16 94 03/19/19 09:01 99 03/19/19 08:41 97 03/19/19 07:42 95 PG Care Time/CCT Total # of Minutes Spent Total Time Spent with Patient: Total time spent is greater than 50% in coordination of care (as documented) at patient's floor/unit and/or counseling patient: (1) GI bleed GI bleed type/associated pathology: unspecified gastrointestinal hemorrhage type Qualified Code(s): K92.2 - Gastrointestinal hemorrhage, unspecified (2) Anemia Anemia type: unspecified type Qualified Code(s): D64.9 - Anemia, unspecified (3) Hypothyroidism Hypothyroidism type: acquired Qualified Code(s): E03.9 - Hypothyroidism, unspecified (4) Hypertension Hypertension type: essential hypertension Qualified Code(s): I10 - Essential (primary) hypertension (5) COPD (chronic obstructive pulmonary disease) COPD type: unspecified COPD Qualified Code(s): J44.9 - Chronic obstructive pulmonary disease, unspecified
[2019-03-19] MEDS ORDERED: PHARMACY GLYCEMIC MGMT CONSULT PRN (18:30)
[2019-03-19] MEDS: ROSUVASTATIN CALCIUM 20 MG TAB PO SCH (20:32)
[2019-03-19] MEDS: PANTOprazole 40 MG TAB PO SCH (20:32)
[2019-03-19] MEDS: GABAPENTIN 100 MG CAP PO SCH (20:33)
[2019-03-19] MEDS: AMLODIPINE BESYLATE 5 MG TAB PO SCH (20:34)
[2019-03-19] MEDS: TAMSULOSIN HCL 0.4 MG CAP PO SCH (20:34)
[2019-03-19] MEDS ORDERED: INSULIN DETEMIR FLEXPEN/FLEX TOUCH 100 UNITS/ML 3ML SC ONE (21:00)
[2019-03-20] MEDS: LEVOTHYROXINE SODIUM 50 MCG TABLET PO SCH (06:02)
[2019-03-20] MEDS: LEVOTHYROXINE SODIUM 200 MCG TABLET PO SCH (06:02)
[2019-03-20 06:09] LABS: Hematocrit (blood only) 24.3 % (42-52); Hemoglobin 8.1 g/dL (14.0-18.0); Mean Corpuscular Hemoglobin 29.3 pg (25-34); Mean Corpuscular Hgb Conc 33.3 g/dL (32-36); Mean Platelet Volume 10.5 fL (7.4-10.4); Platelet Count 137 K/uL (130-400); RDW Coefficient of Variation 15.7 % (11.5-14.5); RDW Standard Deviation 50.7 fL (36.4-46.3); Red Blood Count 2.76 M/uL (4.7-6.1); White Blood Count 3.57 K/uL (4.8-10.8)
[2019-03-20 07:07] LABS: BUN Creatinine Ratio 11.1 (10-20); Calcium 8.7 mg/dl (8.5-10.1); Creatinine Clr Calc Pharmacy 14.5 ml/min; Est GFR (African American) 10.9; Est GFR (Non-African American) 9.4; Magnesium 1.9 mg/dl (1.8-2.4); Phosphorus 5.3 mg/dl (2.5-4.9); Potassium 3.4 mmol/L (3.5-5.1)
[2019-03-20 07:08] LABS: Thyroid Stimulating Hormone 7.64 uIu/ml (0.300-4.500)
[2019-03-20 07:21] LABS: T4 Free Thyroxine 0.86 ng/dl (0.8-1.6)
--- NOTE | 2019-03-20 07:50 | Anesthesiology Progress Note ---
Date of Service March 20, 2019 Anesthesia Post Procedure Vital Signs Vital Signs: Temp Pulse Pulse Pulse Resp BP BP 03/20/19 04:42 36.7 C 60 17 153/65 H 03/19/19 23:34 36.9 C 54 L 20 157/64 H 03/19/19 19:28 36.5 C 62 18 184/66 H 03/19/19 16:49 61 18 171/89 H 03/19/19 16:34 62 18 167/87 H 03/19/19 16:19 63 62 16 134/58 L 03/19/19 16:00 03/19/19 15:24 36.3 C L 63 18 159/94 H 03/19/19 14:02 36.2 C L 62 62 173/68 H 173/68 H 03/19/19 14:00 62 178/67 H 03/19/19 13:40 59 L 174/61 H 03/19/19 13:20 59 L 165/68 H 03/19/19 13:00 58 L 161/67 H 03/19/19 12:51 36.3 C L 59 L 18 163/71 H 03/19/19 12:40 59 L 163/64 H 03/19/19 12:30 36.2 C L 58 L 18 163/64 H 03/19/19 12:20 57 L 156/70 H 03/19/19 12:15 36.2 C L 57 L 18 156/70 H 03/19/19 12:13 36.2 C L 16 156/70 H 03/19/19 12:00 56 L 154/65 H 03/19/19 11:40 55 L 145/65 H 03/19/19 11:24 36.3 C L 57 L 18 145/66 H 03/19/19 11:20 56 L 145/66 H 03/19/19 11:05 36.3 C L 54 L 18 136/68 03/19/19 11:00 53 L 136/68 03/19/19 10:50 36.3 C L 53 L 18 134/75 03/19/19 10:40 53 L 134/75 03/19/19 10:37 36.3 C L 54 L 18 137/67 03/19/19 10:24 36.2 C L 56 L 03/19/19 10:20 54 L 130/69 03/19/19 10:17 36.3 C L 55 L 18 130/69 03/19/19 10:08 56 L 145/63 H 03/19/19 09:46 36.2 C L 56 L 18 145/63 H 03/19/19 09:44 36.3 C L 58 L 18 153/70 H 03/19/19 09:16 36.3 C L 58 L 18 153/69 H 03/19/19 09:01 36.3 C L 58 L 18 158/69 H 03/19/19 08:41 36.3 C L 59 L 18 149/67 H Pulse Ox Pulse Ox 03/20/19 04:42 91 03/19/19 23:34 95 03/19/19 19:28 93 03/19/19 16:49 96 03/19/19 16:34 95 03/19/19 16:19 96 03/19/19 16:00 93 03/19/19 15:24 93 03/19/19 14:02 03/19/19 14:00 03/19/19 13:40 03/19/19 13:20 03/19/19 13:00 03/19/19 12:51 95 03/19/19 12:40 03/19/19 12:30 95 03/19/19 12:20 03/19/19 12:15 95 03/19/19 12:13 99 03/19/19 12:00 03/19/19 11:40 03/19/19 11:24 88 L 03/19/19 11:20 03/19/19 11:05 91 03/19/19 11:00 03/19/19 10:50 91 03/19/19 10:40 03/19/19 10:37 95 03/19/19 10:24 03/19/19 10:20 03/19/19 10:17 97 03/19/19 10:08 03/19/19 09:46 91 03/19/19 09:44 93 03/19/19 09:16 94 03/19/19 09:01 99 03/19/19 08:41 97 Notes Mental Status: alert / awake / arousable and participated in evaluation Nausea / Vomiting: adequately controlled Pain: adequately controlled Airway Patency, RR, SpO2: stable & adequate BP & HR: stable & adequate Hydration State: stable & adequate
[2019-03-20] MEDS: NEPHROCAPS PO SCH (08:01)
[2019-03-20] MEDS: DOXAZOSIN MESYLATE 1 MG TAB PO SCH (08:01)
[2019-03-20] MEDS: LABETALOL HCL 100 MG TAB PO SCH (08:01)
[2019-03-20] MEDS: PANTOprazole 40 MG TAB PO SCH (08:02)
[2019-03-20] MEDS: DOCUSATE SODIUM 100 MG CAP PO SCH (08:02)
[2019-03-20] MEDS: FUROSEMIDE 80 MG TAB PO SCH (08:02)
[2019-03-20] MEDS: INSULIN ASPART 100 UNITS/ML 3 ML PEN SC SCH ×2 (08:03→13:42)
--- NOTE | 2019-03-20 09:59 | Nephrology Progress Note ---
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 Admitted with GI bleeding with hemoglobin 6.1, received 2 units of PRBC and hemoglobin improved to only 6.8 suggestive of ongoing blood loss and currently pending GI evaluation with history of multiple hospital admission for upper GI bleeding, prior EGD and colonoscopy.Recent EGD with [facility] . EGD 03/20/19 with sign of recent bleeding had ablation. Hb improved froylan 8.1. Overall doing better. Had HD yesterday and received epogen as well. --plan for hemodialysis tomorrow as his regular schedule --dose meds for GFR <10 --continue phos binder with meal. Will follow Subjective Augie was seen and examined. Feeling better, Hb 8.1, Had HD and EGD yesterday. BP stable. Review of Systems Review of Systems: All systems reviewed & are unremarkable except as noted in HPI & below Physical Exam Constitutional: well developed and well nourished; no acute distress Respiratory: normal respiratory effort, lungs clear to auscultation Cardiovascular: RRR, no murmur, no edema Musculoskeletal: Extremities: + lower extremity abnormal to inspection (edema and erythema with superficial skin break. ) Neurologic: moves all extremities and awake; not confused Psychiatric: A+Ox3, euthymic affect Results & Data Vital Signs (Past 12 Hours) Vital Signs Temp Pulse Resp BP Pulse Ox 03/20/19 07:42 36.6 C 61 18 170/70 H 92 03/20/19 04:42 36.7 C 60 17 153/65 H 91 03/19/19 23:34 36.9 C 54 L 20 157/64 H 95 PG Care Time/CCT Total # of Minutes Spent Total Time Spent with Patient: Total time spent is greater than 50% in coordination of care (as documented) at patient's floor/unit and/or counseling patient:
[2019-03-20] MEDS: lisinopriL 40 MG TAB PO SCH (12:14)
--- NOTE | 2019-03-20 13:08 | Progress Note ---
DATE: 03/20/2019 The patient underwent an EGD with argon plasma coagulation of gastric antral vascular ectasia lesions yesterday. The patient did well overnight and is having his diet advanced today. After 4 units of blood, his hemoglobin is now up to 8.1 and relatively stable. He is not having any signs of ongoing bleeding at this time. PHYSICAL EXAMINATION: GENERAL: The patient appears chronically ill. VITAL SIGNS: Blood pressure is 157/63, pulse 90, respirations 19, temperature is 36.5, room air saturation 95%. IMPRESSION: As long as the patient tolerate solid food and remained stable, I expect that he should be able to be discharged later today.
[2019-03-20] MEDS ORDERED: SUCRALFATE 1 GM TAB PO STA (13:51)
--- NOTE | 2019-03-20 13:58 | Discharge Summary ---
Date of Service March 20, 2019 Admission HPI Per Admitting Provider For EGD Principal Diagnosis Bleeding angioectasias in the stomach Discharge Exam Constitutional WD/WN, vitals as above cooperative and + edematous Eyes EOM intact bilaterally; no conjunctival abnormality ENMT external ear and nose normal, oropharynx normal Neck trachea midline, no thyromegaly normal visual inspection Respiratory normal respiratory effort, lungs clear to auscultation no respiratory distress Cardiovascular RRR, no murmur, no edema Gastrointestinal (Abdomen) Inspection/Auscultation: abdomen normal to inspection; abdomen not distended Musculoskeletal no cyanosis or clubbing, extremities motor strength 5/5 Skin no rashes, warm and dry Neurologic moves all extremities and awake Psychiatric Orientation: alert, oriented to person and cooperative Discharge Data Allergies Allergy/AdvReac Type Severity Reaction Status Date / Time tramadol AdvReac Severe disorented Verified 03/06/19 15:08 ,falling down metformin AdvReac Intermediate CONFUSION Verified 03/06/19 15:08 Consultations 03/18/19 17:09 ED Decision to Admit Stat 03/18/19 19:32 Consult Gastroenterology Routine Consult Nephrology Routine Procedures Performed Operation Date: 03/19/19 09:30 Actual Procedures p EGD Hemostasis - [facility] Course (1) GI bleed: Due to angioectasias. Underwent EGD with Dr. White on 03/19 with argon beam lasering. - S/p 4 units of PRBCs by 03/19 - Hgb was stable on 03/20 - Cleared for discharge by GI. Follow up in clinic. - Started on PPI BID and carafate BID. 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 - See above (4) End-stage renal disease (ESRD): Completed HD on 03/19. - Appreciate nephrology consult (5) Chronic diastolic congestive heart failure: Last echo I see is from 04/2018. EF 65-70%. - Continue home medication. - Appears euvolemic today - Received HD with his blood, so it did not appear to affect his volume status. (6) Diabetes: A1c was 6.5% in 02/2019. - Continue long-acting insulin - Sliding scale insulin - Glycemic pharmacist consult (7) Hypothyroidism: TSH was 12.7 in 10/2018 which was much higher than priors. - TSH was 7.6 with a normal 0.85 on 03/20/2019. - Continue Synthroid 250 mcg daily (8) Hypertension: BP was 170/90 after his EGD. - Continue home meds - amlodipine, doxazosin, Lasix, hydralazine, and lisinopril (9) COPD (chronic obstructive pulmonary disease): No shortness of breath at present. - DuoNebs PRN (10) DVT prophylaxis: SCDs - No heparin given recent bleeding Total Time Total Time Spent Total Time Spent (In Minutes): 35 Discharge Plan Discharge Items Patient Disposition: Home - Home Health Services Reason For Visit: GI BLEED Discharge Diagnosis: GI bleeding from gastric (stomach) AV malformations Activity: Resume your previous activity Non-emergency contact: Primary Care Provider and [employer] Helper Call non-emergency contact if: you have any medication questions Follow-up/Referrals: Mahsa Wang, [Primary Care Provider] - Diet: Dialysis Renal Addtl Attending Provider Instructions: Mihai Francisco Javier, You were here for for a stomach bleed from blood vessels in the stomach. Dr. White did an EGD which treated the blood vessels that were bleeding. Please take the Carafate two to three times per day for the next month, then follow up with Dr. White to see if you should stay on it longer. We are also giving you 3 days worth of antibiotics to make sure your knee doesn't get infected. You took the first pill in the hospital. Take the next one after dialysis tomorrow, then the last one on Saturday morning. Pending Studies at Discharge: No Stand-Alone Forms: My [facility] Medications and DC Order Prescriptions: New pantoprazole 40 mg Tablet,Delayed Release (Dr/Ec) 40 mg PO BID Qty: 60 RF: 0 cephalexin 250 mg Capsule 250 mg PO Q24H Qty: 1 RF: 0 sucralfate 1 gram Tablet 1 g PO BID Qty: 1 RF: 0 Continued labetalol 100 mg tablet 400 mg PO BID Qty: 720 RF: 0 doxazosin [Cardura] 1 mg tablet 1 mg PO DAILY Qty: 90 RF: 1 gabapentin 100 mg capsule 200 mg PO HS Qty: 60 RF: 5 lisinopril 40 mg tablet 40 mg PO DAILY@1200 Qty: 90 RF: 3 amlodipine 10 mg tablet 10 mg PO HS Qty: 90 RF: 0 docusate sodium 100 mg capsule 200 mg PO QAM Qty: 30 RF: 0 furosemide 80 mg tablet 80 mg PO AMPM Qty: 60 RF: 0 rosuvastatin 20 mg tablet 20 mg PO QPM Qty: 90 RF: 0 Levemir U-100 Insulin 100 unit/mL solution 20 units subcut HS RF: 0 pantoprazole 40 mg Tablet,Delayed Release (Dr/Ec) 40 mg PO BID Qty: 60 RF: 2 tamsulosin 0.4 mg capsule 0.4 mg PO HS Qty: 90 RF: 1 Renal Caps 1 mg capsule 1 mg PO DAILY RF: 0 levothyroxine 50 mcg tablet 50 mcg PO DAILY RF: 0 levothyroxine 200 mcg tablet 200 mcg PO DAILY RF: 0 Auryxia 210 mg iron tablet 420 mg PO TIDM RF: 0 Boost Glucose Control 0.06-1.1 gram-kcal/mL Liquid 1 ea PO TIDM RF: 0 hydralazine 25 mg tablet 25 mg PO TIDM RF: 0 Discharge Orders: Discharge Order (Routine); Ordered 03/20/19 Ordered By: Stephen Gold Admission Data Admit Date/Time: 03/18/19 18:16 Attending Provider: Stephen Gold Admit Provider: Surinder Siddiqui Primary Care Provider: Mahsa Wang Other Providers: Terrence Bangura ; Merlyn Briceno ; Stephen Gold Other Interventions: Discharge Summary Assessment (RN) Last Done: 03/20/19 14:22 DC Date/Time DO NOT enter until pt leaves facility: 03/20/19 14:43
[2019-03-20] MEDS ORDERED: SUCRALFATE 1 GM TAB PO SCH ×2 (14:00→21:00)
[2019-03-20] MEDS ORDERED: cephALEXin 250 MG CAP PO SCH ×2 (14:00→21:00)
[2019-03-20] MEDS ORDERED: cephALEXin 250 MG CAP PO ONE (14:00)
--- NOTE | 2019-03-20 14:51 | Pharmacy Report ---
Glycemic Control Consultation - Date of Service March 20, 2019 - Scope Scope: Glycemic Pharmacist consulted by Dr Gold on 03/20 for glycemic control and to write orders per [facility] inpatient glycemic control protocol - Objective Weight: 98.7 kg Accuchecks BSG (last 24hrs): 03/19/19 03/19/19 03/20/19 17:29 20:31 05:53 Glucose 100 H POC Glucose 125 H 150 H 03/20/19 03/20/19 07:30 11:40 Glucose POC Glucose 106 H 109 H Laboratory Data (last 24hrs): 03/20/19 05:53 Potassium 3.4 L Carbon Dioxide 26 Anion Gap 8.0 Creatinine 5.43 H* D Est Cr Clr Drug Dosing 14.5 - Recent Pertinent Medications Outpatient Anti-diabetic Regimen: * Levemir 20 units HS * A1c = 6.5 % 02/17- not reliable in setting of HD Risk Factors for Insulin Resistance: * Steroids: * Infection: * Pressors: * IVF: * Recent Surgery * Diet: NPO --> clears --> renal/T2DM * Mechanical Ventilation: - Assessment & Plan Assessment & Plan: ASSESSMENT: * Mr. Mcintyre admitted following rectal bleeding, started on iron (auryxia) day prior. Previously admitted for GI bleed 2 weeks ago with endoscopy and repair. Uncertain if dark stools due to medication or bleeding. Hgb 6.1, received blood * Patient was NPO yesterday for EGD and therefore reduced lantus dose of 10 units given, fasting this morning within good range, diet now ordered * Bolus parameters were started with a carb ratio between weight based stress of 1 and 2, correction factor between stress of 2/3. BSGs have ranged from 204 (on admission) to 150. Will continue current * Patient currently with discharge orders, will place scale on for lantus this evening in the event patient stays PLAN FOR INPATIENT GLYCEMIC CONTROL: * Basal insulin * Lantus 10/15 units * Bolus insulin * NovoLog per scale ACHS or Q6hrs while NPO * Goal Range: Low 110 mg/dL - High 120 mg/dL * Correction Factor: 20 mg/dL/unit * Nutritional / Prandial insulin per carb ratio of 1 unit per 10 grams CHO consumed * Please note that the plan above was derived based on current level of insulin resistance and hospital stress. These recommendations are appropriate for inpatient admission only. Plan of care upon discharge will need to be reassessed to avoid potential outpatient hypo/hyperglycemia. Thank you.
[2019-03-20] MEDS ORDERED: INSULIN DETEMIR FLEXPEN/FLEX TOUCH 100 UNITS/ML 3ML SC ONE (21:00)
[2019-03-21] MEDS ORDERED: SODIUM CHLORIDE 0.9% 1000ML 1,000 ML IV PRN (07:00)
== END 2019-03-20 14:43 | disposition home or self-care (01) | DRG 377 ==
LOC: ED 15:15 → SUATTDRO 18:16 → 2S 18:16

== ENCOUNTER 2019-04-02 14:41 | Inpatient (IN) ==
[2019-04-02] MEDS ORDERED: SODIUM CHLORIDE 0.9% 250 ML IV PRN ×2 (15:13→15:48)
--- NOTE | 2019-04-02 15:43 | XRay Report ---
XR chest 1V portable CLINICAL HISTORY: weakness dyspnea COMPARISON STUDY: 03/05/2019 FINDINGS: Moderate cardiomegaly. Prominent pulmonary vasculature. Diaphragms are smooth. IMPRESSION: Moderate cardiomegaly. Pulmonary venous congestion. The above report was generated using voice recognition software. It may contain grammatical, syntax or spelling errors. Electronically signed by: Osmany Marte M.D. 04/02/2019 3:42 PM
[2019-04-02 15:45] LABS: Hematocrit (blood only) 21.4 % (42-52); Hemoglobin 6.8 g/dL (14.0-18.0); Mean Corpuscular Hemoglobin 28.9 pg (25-34); Mean Corpuscular Hgb Conc 31.8 g/dL (32-36); Mean Corpuscular Volume 91.1 fL (80-100); Mean Platelet Volume 11.1 fL (7.4-10.4); Platelet Count 175 K/uL (130-400); RDW Coefficient of Variation 16.6 % (11.5-14.5); RDW Standard Deviation 55.4 fL (36.4-46.3); Red Blood Count 2.35 M/uL (4.7-6.1); White Blood Count 4.31 K/uL (4.8-10.8)
[2019-04-02 15:52] LABS: INR 1.1 (0.9-1.1); Partial Thromboplastin Time 27.5 Seconds (21.0-31.0); Prothrombin Time 11.5 Seconds (9.0-12.0)
[2019-04-02 15:55] LABS: Albumin Level 3.2 gm/dl (3.4-5.0); BUN Creatinine Ratio 7.8 (10-20); Calcium 8.9 mg/dl (8.5-10.1); Creatinine Clr Calc Pharmacy 18.2 ml/min; Est GFR (African American) 14.8; Est GFR (Non-African American) 12.8; Potassium 3.1 mmol/L (3.5-5.1)
[2019-04-02 15:58] LABS: Albumin Globulin Ratio 0.9 (0.9-2); Bilirubin,Total 0.4 mg/dl (0.2-1); Globulin 3.5 gm/dl (2.5-4.0); Total Protein 6.7 gm/dl (6.4-8.2)
[2019-04-02 16:12] LABS: Anisocytosis Present; Basophils # (auto) 0.04 K/uL (0-0.2); Basophils % (auto) 0.9 %; Eosinophils # (auto) 0.11 K/uL (0-0.5); Eosinophils % (auto) 2.6 %; Giant Platelets 1+; Immature Granulocytes # (auto) 0.01 K/uL (0.00-0.02); Immature Granulocytes % (auto) 0.2 %; Lymphocytes # (auto) 0.45 K/uL (1.2-3.4); Lymphocytes % (auto) 10.4 %; Monocytes # (auto) 0.44 K/uL (0.11-0.59); Monocytes % (auto) 10.2 %; Neutrophils # (auto) 3.26 K/uL (1.4-6.5); Neutrophils % (auto) 75.7 %
--- NOTE | 2019-04-02 16:14 | Emergency Department Note ---
Entered by Naima Sim acting as a scribe for History of Present Illness General Chief complaint: Abnormal Labs/Diagnostic Testing Stated complaint: ABN LABS Time Seen by Provider: 04/02/19 15:00 Source: patient and family History of Present Illness Provider complaint: rectal bleeding referral Onset (ago): hour(s) less than 1 Location: genitals Radiation: non-radiation Pain Consistency: + intermittent Maximum Pain Intensity: 0 Associated symptoms: + denies other symptoms and + other (no abdominal pain ) The patient is a 78 y/o male who presents to the emergency department for evaluation of intermittent rectal bleeding that began prior to arrival. The patient states that he was getting dialysis this morning and they called his family and stated his count was 7 and he needs blood so to go to the ED. The patient notes that a week ago he began having black stool. The family states that he has a history of GI bleeding and that he was admitted to the hospital a few weeks ago, received 4 units of blood while he was here, and was recently discharged on 03/20. The patient denies abdominal pain and any other symptoms. Home Medications Home Medications Medication Instructions Recorded Confirmed Type pantoprazole 40 mg PO BID #60 tab 04/23/18 04/02/19 Rx amlodipine 10 mg tablet 10 mg PO HS #90 tab 11/12/18 04/02/19 Rx doxazosin 1 mg tablet 1 mg PO DAILY #90 tab 12/23/18 04/02/19 Rx tamsulosin 0.4 mg PO HS #90 cap 01/02/19 04/02/19 Rx docusate sodium 100 mg capsule 200 mg PO QAM #30 cap 01/19/19 04/02/19 Rx furosemide 80 mg tablet 80 mg PO AMPM #60 tab 01/19/19 04/02/19 Rx gabapentin 100 mg capsule 200 mg PO HS #60 cap 02/04/19 04/02/19 Rx Renal Caps 1 mg PO DAILY 02/15/19 04/02/19 History levothyroxine 50 mcg PO DAILY 02/15/19 04/02/19 History levothyroxine 200 mcg PO DAILY 02/15/19 04/02/19 History lisinopril 40 mg tablet 40 mg PO DAILY@1200 #90 tab 02/26/19 04/02/19 Rx Auryxia 420 mg PO TIDM 03/18/19 04/02/19 History Boost Glucose Control 1 ea PO TIDM 03/18/19 04/02/19 History sucralfate 1 g PO BID #1 tab 03/20/19 04/02/19 Rx hydralazine 25 mg tablet 25 mg PO TID #270 tab 03/23/19 04/02/19 Rx rosuvastatin 20 mg tablet 20 mg PO QPM #90 tab 03/23/19 04/02/19 Rx insulin detemir (U- 100) 100 15 units SUBCUT HS ml 03/25/19 04/02/19 History unit/mL subcutaneous solution labetalol 100 mg tablet 400 mg PO BID #720 tab 03/25/19 04/02/19 Rx Allergies Allergy/AdvReac Type Severity Reaction Status Date / Time tramadol AdvReac Severe disorented Verified 04/02/19 17:00 ,falling down metformin AdvReac Intermediate CONFUSION Verified 04/02/19 17:00 Past Med/Surg History Medical History Diabetes Gastric AV malformation Anemia (Acute) End-stage renal disease (ESRD) (Chronic) Hypoxia (Acute) AVF (arteriovenous fistula) Hypnic jerks Uncontrolled daytime somnolence Hyperlipidemia LDL goal <70 Personal history of noncompliance with medical treatment, presenting hazards to health Volume overload Mitral regurgitation Anxiety Arthritis Chronic diastolic congestive heart failure Chronic kidney disease, stage IV (severe) 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, w ith long-term current use of insulin Depression Diabetic peripheral neuropathy ESRD (end stage renal disease) on dialysis Hiatal hernia with GERD without esophagitis Hearing difficulty IgG monoclonal gammopathy Memory loss Nephrotic syndrome Obstructive sleep apnea Occlusion and stenosis of unspecified carotid artery Osteoporosis Peripheral vascular disease Pulmonary hypertension Vitamin D deficiency CAD (coronary artery disease) BPH (benign prostatic hyperplasia) Hypothyroidism Hypertension Asthma Secondary hyperparathyroidism of renal origin COPD (chronic obstructive pulmonary disease) Acute on chronic respiratory failure (Resolved) Altered mental status (Resolved) Chest pain (Resolved) Elevated troponin (Resolved) Encephalopathy (Resolved) Epistaxis (Resolved) Fluid overload (Resolved) Hypertensive urgency (Resolved) Hypoxia (Resolved) Abnormal colonoscopy Surgical History H/O cardiac catheterization H/O esophagogastroduodenoscopy 02/16/19 [facility]- Dr. Mando White. 50mg propofol, no issues. H/O esophagogastroduodenoscopy 03/06/19 [facility] H/O hemorrhoidectomy Hx of cholecystectomy No pertinent past surgical history Family History Unknown Myocardial infarction Diabetes Mother Diabetes Gallbladder disease Hypertension Breast cancer late 70s Father Diabetes Hypertension Brother Diabetes Hypertension Kidney disease Social History Preferred Language: Bhutanese Communication Ability: Effective Healthcare Business Analyst Required: No Beliefs That Will Affect Care: None marital status: Current Living Situation: Spouse current occupational status: employed current occupation: works part-time at [employer] Other Information That Helps Us Care for You: No Feels Safe at Home: Yes Safety Concerns: Feels Safe At This Time Smoking Status: Former smoker Tobacco Type: cigarettes ; Number of Years Since Quit: 25 ; Second Hand Exposure: No ; Hx Alcohol Use: No Hx Substance Use: No Childhood Exposure to Second-Hand Smoke: No caffeine: Yes Dental Care, Regularly: Yes Physical Activity Frequency Comment: limited due physical condition Seatbelt Use: sometimes Review of Systems See HPI for pertinent positives & negatives. and A total of 10 systems reviewed and were otherwise negative Physical Exam Vital Signs Vital Signs - 24 hr 04/02/19 14:42 04/02/19 15:59 04/02/19 16:00 Temperature 36.7 C Temperature Source Oral Sepsis Recent Fever Within 48 Hours No Sepsis New/Unexplained Change in Mental Status No Sepsis Action Taken by Nursing No Action Required Pulse Rate 64 Pulse Rate [Apical] 63 Pulse Rhythm Pulse Rhythm [Apical] Regular Respiratory Rate 18 20 Respiratory Effort / Characteristics Non-Labored Non-Labored Non-Labored Spontaneous Respiratory Depth Normal Normal Normal Respiratory Pattern Regular Regular Regular Blood Pressure 153/54 H Blood Pressure [Right Arm] 157/50 H Blood Pressure Mean 87 Blood Pressure Mean [Right Arm] 85 Blood Pressure Position Sitting Pulse Oximetry 94 92 Oxygen Delivery Method Room Air Room Air Room Air 04/02/19 16:54 04/02/19 17:15 Temperature 36.7 C 36.9 C Temperature Source Oral Oral Sepsis Recent Fever Within 48 Hours Sepsis New/Unexplained Change in Mental Status Sepsis Action Taken by Nursing Pulse Rate 64 64 Pulse Rate [Apical] Pulse Rhythm Regular Pulse Rhythm [Apical] Respiratory Rate 17 19 Respiratory Effort / Characteristics Respiratory Depth Respiratory Pattern Blood Pressure 160/55 H 152/57 H Blood Pressure [Right Arm] Blood Pressure Mean 90 88 Blood Pressure Mean [Right Arm] Blood Pressure Position Pulse Oximetry 96 93 Oxygen Delivery Method GENERAL: Patient is in no acute distress. HEENT: No acute trauma, normocephalic atraumatic, mucous membranes moist, no nasal congestion, no scleral icterus. NECK: No stridor, no adenopathy, no meningismus, trachea is midline. LUNGS: Clear to auscultation bilaterally, no wheeze, no rhonchi, breath sounds equal. HEART: 3/6 systolic murmur. Regular rate and rhythm. ABDOMEN: Soft, nontender, bowel sounds positive, no hernias, no peritonitis. EXTREMITIES: No cyanosis or edema, full range of motion of all the joints without pain or difficulty, no signs for acute trauma. Moderate bilateral pedal edema. RECTAL: Black stool, hem positive. NEUROLOGIC: Oriented x 3, no acute motor or sensory deficits, no focal weakness. SKIN: No rash, no jaundice, no diaphoresis. Course 1504: Past medical records reviewed. The patient was evaluated in room B05. A complete history and physical exam was performed. 1518: I spoke with Dr. White and he thinks that the patient should be hospitalized, he needs a blood transfusion and a bleeding scan. 1524: Dr. Salazar-Radiology states that the blood transfusion will not affect the results of the bleeding scan. 1548: The patients hemoglobin is 6.8 and he will be consented for a blood trans fusion. 1609: I spoke with Dr. Artur BRIDGES and he will evaluate for further management. Medical Decision Making Differential Diagnosis Differential Diagnosis: anemia, upper GI bleeding, electrolyte imbalance, hyperkaliemia, lower GI bleeding, ulcer, gastritis, coagulopathy. Medical Records Attestation: I reviewed the patient's medical records. Home Medications Current Medication List: was personally reviewed by me Laboratory Data Attestation: I reviewed the patient's lab results. Result diagrams: 04/02/19 15:23 04/02/19 15:23 Lab Results 04/02/19 04/02/19 04/02/19 Range/Units 15:23 15:23 15:23 WBC 4.31 L (4.8-10.8) K/uL RBC 2.35 L (4.7-6.1) M/uL Hgb 6.8 L* (14.0-18.0) g/dL Hct 21.4 L (42-52) % MCV 91.1 (80-100) fL MCH 28.9 (25-34) pg MCHC 31.8 L (32-36) g/dL RDW Std Deviation 55.4 H (36.4-46.3) fL RDW Coeff of Jose C 16.6 H (11.5-14.5) % Plt Count 175 (130-400) K/uL MPV 11.1 H (7.4-10.4) fL Immature Gran % (Auto) 0.2 % Neut % (Auto) 75.7 % Lymph % (Auto) 10.4 % [place] % (Auto) 10.2 % Eos % (Auto) 2.6 % Baso % (Auto) 0.9 % Immature Gran # (Auto) 0.01 (0.00-0.02) K/uL Neut # (Auto) 3.26 (1.4-6.5) K/uL Lymph # (Auto) 0.45 L (1.2-3.4) K/uL [place] # (Auto) 0.44 (0.11-0.59) K/uL Eos # (Auto) 0.11 (0-0.5) K/uL Baso # (Auto) 0.04 (0-0.2) K/uL Giant Platelets 1+ Anisocytosis Present PT 11.5 (9.0-12.0) Seconds INR 1.1 (0.9-1.1) APTT 27.5 (21.0-31.0) Seconds PTT Ratio 1.0 Sodium 137 (136-145) mmol/L Potassium 3.1 L (3.5-5.1) mmol/L Chloride 97 L (98-107) mmol/L Carbon Dioxide 33 H (21-32) mmol/L Anion Gap 6.0 (3-11) BUN 33 H (7-18) mg/dl Creatinine 4.21 H (0.6-1.4) mg/dl Est Cr Clr Drug Dosing 18.2 ml/min Est GFR ( Amer) 14.8 Est GFR (Non-Af Amer) 12.8 BUN/Creatinine Ratio 7.8 L (10-20) Glucose 214 H (70-99) mg/dl Calcium 8.9 (8.5-10.1) mg/dl Magnesium 2.0 (1.8-2.4) mg/dl Total Bilirubin 0.4 (0.2-1) mg/dl AST 16 (15-37) U/L ALT 26 (12-78) U/L Alkaline Phosphatase 159 H (45-117) U/L Total Protein 6.7 (6.4-8.2) gm/dl Albumin 3.2 L (3.4-5.0) gm/dl Globulin 3.5 (2.5-4.0) gm/dl Albumin/Globulin Ratio 0.9 (0.9-2) Blood Type Antibody Screen Crossmatch 04/02/19 Range/Units 15:23 WBC (4.8-10.8) K/uL RBC (4.7-6.1) M/uL Hgb (14.0-18.0) g/dL Hct (42-52) % MCV (80-100) fL MCH (25-34) pg MCHC (32-36) g/dL RDW Std Deviation (36.4-46.3) fL RDW Coeff of Jose C (11.5-14.5) % Plt Count (130-400) K/uL MPV (7.4-10.4) fL Immature Gran % (Auto) % Neut % (Auto) % Lymph % (Auto) % [place] % (Auto) % Eos % (Auto) % Baso % (Auto) % Immature Gran # (Auto) (0.00-0.02) K/uL Neut # (Auto) (1.4-6.5) K/uL Lymph # (Auto) (1.2-3.4) K/uL [place] # (Auto) (0.11-0.59) K/uL Eos # (Auto) (0-0.5) K/uL Baso # (Auto) (0-0.2) K/uL Giant Platelets Anisocytosis PT (9.0-12.0) Seconds INR (0.9-1.1) APTT (21.0-31.0) Seconds PTT Ratio Sodium (136-145) mmol/L Potassium (3.5-5.1) mmol/L Chloride (98-107) mmol/L Carbon Dioxide (21-32) mmol/L Anion Gap (3-11) BUN (7-18) mg/dl Creatinine (0.6-1.4) mg/dl Est Cr Clr Drug Dosing ml/min Est GFR ( Amer) Est GFR (Non-Af Amer) BUN/Creatinine Ratio (10-20) Glucose (70-99) mg/dl Calcium (8.5-10.1) mg/dl Magnesium (1.8-2.4) mg/dl Total Bilirubin (0.2-1) mg/dl AST (15-37) U/L ALT (12-78) U/L Alkaline Phosphatase (45-117) U/L Total Protein (6.4-8.2) gm/dl Albumin (3.4-5.0) gm/dl Globulin (2.5-4.0) gm/dl Albumin/Globulin Ratio (0.9-2) Blood Type B Positive Antibody Screen NEGATIVE Crossmatch See Detail Imaging Data Radiologist's Impression: Radiology results as stated below per my review and the radiologist's interpretation: XR chest 1V portable CLINICAL HISTORY: weakness dyspnea COMPARISON STUDY: 03/05/2019 FINDINGS: Moderate cardiomegaly. Prominent pulmonary vasculature. Diaphragms are smooth. IMPRESSION: Moderate cardiomegaly. Pulmonary venous congestion. The above report was generated using voice recognition software. It may contain grammatical, syntax or spelling errors. Electronically signed by: Osmany Marte M.D. 04/02/2019 3:42 PM ECG Data Attestation: I personally reviewed and interpreted this ECG as follows: Indication: weakness Rate (beats per minute): 61 Rhythm: normal sinus Findings: + RBBB and + T-wave inversion; no PAC and no PVC Comparison ECG Date: from (03/18/19) Change: no significant change Blood Pressure Blood Pressure Findings: Elevated blood pressure Blood Pressure Disposition: further management by hospitalist [facility] Narrative There is no leukocytosis, in fact, the white blood cell count is slightly low which is consistent with the patient's past history. Patient is anemic with a hemoglobin of 6.8, this is a critical value. The platelet count is normal. No coagulopathy. Renal panel testing shows a high creatinine consistent with his need for dialysis. No significant electrolyte abnormality requiring correction. There was no worrisome liver enzyme elevation. Chest film did not show pneumonia, no worrisome CHF. EKG showed a sinus rhythm, no acute ischemia. On exam, the patient's stool was black in color and heme positive. I did speak with the patient's GI physician. A hospital stay, a blood transfusion and bleeding scan was recommended. Patient may need a repeat endoscopy. I talked with the patient, he did consent to a blood transfusion. The appropriate paperwork was signed. 1 unit of packed red blood cells was ordered for transfusion. Patient was also given IV Protonix as a bolus and then placed on a Protonix drip. I did speak with case management. The on-call hospitalist has been consulted. Impression & Plan Upper gastrointestinal bleed, Anemia, Heme positive stool Critical Care Time Critical Care Time: Yes Total Critical Care Time: 34 I have personally spent 34 minutes of critical care time in the direct management of this patient. This includes bedside care, interpretation of diagnostic studies, and testing, discussion with consultants, patient, and family members, and other required patient management activities. This 34 minutes is in excess of all separately billable procedures. Discharge Plan Visit Data Chief Complaint: Abnormal Labs/Diagnostic Testing Stated Complaint: ABN LABS ED Provider: Shayan Klein Discharge Problem: Upper gastrointestinal bleed, Anemia, Heme positive stool Patient Disposition: Being Evaluated by Hospitalist Forms Stand Alone Forms: My [facility] Prescriptions Prescriptions: No Action doxazosin [Cardura] 1 mg tablet 1 mg PO DAILY Qty: 90 RF: 1 gabapentin 100 mg capsule 200 mg PO HS Qty: 60 RF: 5 lisinopril 40 mg tablet 40 mg PO DAILY@1200 Qty: 90 RF: 3 hydralazine 25 mg tablet 25 mg PO TID Qty: 270 RF: 1 rosuvastatin 20 mg tablet 20 mg PO QPM Qty: 90 RF: 1 labetalol 100 mg tablet 400 mg PO BID Qty: 720 RF: 1 amlodipine 10 mg tablet 10 mg PO HS Qty: 90 RF: 0 docusate sodium 100 mg capsule 200 mg PO QAM Qty: 30 RF: 0 furosemide 80 mg tablet 80 mg PO AMPM Qty: 60 RF: 0 Levemir U-100 Insulin 100 unit/mL solution 15 units subcut HS RF: 0 pantoprazole 40 mg Tablet,Delayed Release (Dr/Ec) 40 mg PO BID Qty: 60 RF: 2 tamsulosin 0.4 mg capsule 0.4 mg PO HS Qty: 90 RF: 1 Renal Caps 1 mg capsule 1 mg PO DAILY RF: 0 levothyroxine 50 mcg tablet 50 mcg PO DAILY RF: 0 levothyroxine 200 mcg tablet 200 mcg PO DAILY RF: 0 Auryxia 210 mg iron tablet 420 mg PO TIDM RF: 0 Boost Glucose Control 0.06-1.1 gram-kcal/mL Liquid 1 ea PO TIDM RF: 0 sucralfate 1 gram Tablet 1 g PO BID Qty: 1 RF: 0 Referrals Referrals: Mahsa Wang DO [Primary Care Provider] - Discharge Problem: Anemia Qualifiers: Anemia type: unspecified type Qualified Code(s): D64.9 - Anemia, unspecified The scribe's documentation has been prepared under my direction and personally reviewed by me in its entirety. I confirm that the note above accurately reflects all work, treatment, procedures, and medical decision making performed by me.
--- NOTE | 2019-04-02 16:43 | History & Physical Report ---
Date of Service April 02, 2019 Assessment & Plan (1) Acute blood loss anemia: Transfuse blood to keep hemoglobin more than 8. Patient is getting 1 unit of blood transfusion now in the ER (2) GI bleed: Consult gastroenterology. Check GI bleeding scan now. Add IV Protonix. GI was notified (3) Heme positive stool: (4) Gastric AV malformation: Status post cauterization during last hospitalization. (5) Chronic diastolic congestive heart failure: (6) ESRD (end stage renal disease) on dialysis: Consult nephrology (7) Hypertension: Add IV hydralazine. -PRN Basis for uncontrolled hypertension. (8) COPD (chronic obstructive pulmonary disease): DuoNeb breathing treatment as needed (9) Hypothyroidism: Continue Synthroid. History of Present Illness Primary Care Provider: Mahsa Wang DO The patient is a 78 y/o male who presents to the emergency department for evaluation of intermittent rectal bleeding that began prior to arrival. The patient states that he was getting dialysis this morning and they called his family and stated his count was 7 and he needs blood so to go to the ED. The patient notes that a week ago he began having black stool. The family states that he has a history of GI bleeding and that he was admitted to the hospital a few weeks ago, received 4 units of blood while he was here, and was recently discharged on 03/20. The patient denies abdominal pain and any other symptoms. His last endoscopy was on 03/19/2019 which showed gastric antral vascular ectasia and he underwent argon plasma coagulation by Dr. White. His hemoglobin now in the ER is 6.8. He will be started on blood transfusion and Protonix and will be admitted for further evaluation and management. Gastroenterology was notified. Allergies Allergy/AdvReac Type Severity Reaction Status Date / Time tramadol AdvReac Severe disorented Verified 03/25/19 09:36 ,falling down metformin AdvReac Intermediate CONFUSION Verified 03/25/19 09:36 Home Medications Home Medications Medication Instructions Recorded Confirmed Type pantoprazole 40 mg PO BID #60 tab 04/23/18 03/25/19 Rx amlodipine 10 mg tablet 10 mg PO HS #90 tab 11/12/18 03/25/19 Rx doxazosin 1 mg tablet 1 mg PO DAILY #90 tab 12/23/18 03/25/19 Rx tamsulosin 0.4 mg PO HS #90 cap 01/02/19 03/25/19 Rx docusate sodium 100 mg capsule 200 mg PO QAM #30 cap 01/19/19 03/25/19 Rx furosemide 80 mg tablet 80 mg PO AMPM #60 tab 01/19/19 03/25/19 Rx gabapentin 100 mg capsule 200 mg PO HS #60 cap 02/04/19 03/25/19 Rx Renal Caps 1 mg PO DAILY 02/15/19 03/25/19 History levothyroxine 50 mcg PO DAILY 02/15/19 03/25/19 History levothyroxine 200 mcg PO DAILY 02/15/19 03/25/19 History lisinopril 40 mg tablet 40 mg PO DAILY@1200 #90 tab 02/26/19 03/25/19 Rx Auryxia 420 mg PO TIDM 03/18/19 03/25/19 History Boost Glucose Control 1 ea PO TIDM 03/18/19 03/25/19 History sucralfate 1 g PO BID #1 tab 03/20/19 03/25/19 Rx hydralazine 25 mg tablet 25 mg PO TID #270 tab 03/23/19 03/25/19 Rx rosuvastatin 20 mg tablet 20 mg PO QPM #90 tab 03/23/19 03/25/19 Rx insulin detemir (U- 100) 100 15 units SUBCUT HS ml 03/25/19 03/25/19 History unit/mL subcutaneous solution labetalol 100 mg tablet 400 mg PO BID #720 tab 03/25/19 Rx insulin aspart U- 100 100 unit/mL See Rx Instructions .ROUTE 04/02/19 Rx subcutaneous solution .COMPLEX #10 ml Past Med/Surg History Medical History Diabetes Gastric AV malformation Anemia (Acute) End-stage renal disease (ESRD) (Chronic) Hypoxia (Acute) AVF (arteriovenous fistula) Hypnic jerks Uncontrolled daytime somnolence Hyperlipidemia LDL goal <70 Personal history of noncompliance with medical treatment, presenting hazards to health Volume overload Mitral regurgitation Anxiety Arthritis Chronic diastolic congestive heart failure Chronic kidney disease, stage IV (severe) 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, with long-term current use of insulin Depression Diabetic peripheral neuropathy ESRD (end stage renal disease) on dialysis Hiatal hernia with GERD without esophagitis Hearing difficulty IgG monoclonal gammopathy Memory loss Nephrotic syndrome Obstructive sleep apnea Occlusion and stenosis of unspecified carotid artery Osteoporosis Peripheral vascular disease Pulmonary hypertension Vitamin D deficiency CAD (coronary artery disease) BPH (benign prostatic hyperplasia) Hypothyroidism Hypertension Asthma Secondary hyperparathyroidism of renal origin COPD (chronic obstructive pulmonary disease) Acute on chronic respiratory failure (Resolved) Altered mental status (Resolved) Chest pain (Resolved) Elevated troponin (Resolved) Encephalopathy (Resolved) Epistaxis (Resolved) Fluid overload (Resolved) Hypertensive urgency (Resolved) Hypoxia (Resolved) Abnormal colonoscopy Surgical History H/O cardiac catheterization H/O esophagogastroduodenoscopy 02/16/19 [facility]- Dr. Mando White. 50mg propofol, no issues. H/O esophagogastroduodenoscopy 03/06/19 [facility] H/O hemorrhoidectomy Hx of cholecystectomy No pertinent past surgical history Family History Unknown Myocardial infarction Diabetes Mother Diabetes Gallbladder disease Hypertension Breast cancer late 70s Father Diabetes Hypertension Brother Diabetes Hypertension Kidney disease Social History Preferred Language: Libyan Communication Ability: Effective Mailer Required: No Beliefs That Will Affect Care: None marital status: Current Living Situation: Spouse current occupational status: employed current occupation: works part-time at [employer] Other Information That Helps Us Care for You: No Feels Safe at Home: Yes Safety Concerns: Feels Safe At This Time Smoking Status: Former smoker Tobacco Type: cigarettes ; Number of Years Since Quit: 25 ; Second Hand Exposure: No ; Hx Alcohol Use: No Hx Substance Use: No Childhood Exposure to Second-Hand Smoke: No caffeine: Yes Dental Care, Regularly: Yes Physical Activity Frequency Comment: limited due physical condition Seatbelt Use: sometimes Review of Systems Review of Systems: All systems reviewed & are unremarkable except as noted in HPI & below Physical Exam Physical Exam: GENERAL : No acute distress EYES: No icterus, gaze conjugate NOSE: No evidence of epistaxis MOUTH: No lesions or candidiasis, mucosa moist NECK: Supple LUNGS: CTA B/L, no wheezes, rales or rhonchi HEART: Regular, rate controlled ABDOMEN: Soft, NT, ND, BS Present EXTREMITIES: No LE edema, pedal pulses intact NEURO: A&OX3 Results & Data Vital Signs (Past 12 Hours) Vital Signs Temp Pulse Pulse Resp BP BP Pulse Ox 04/02/19 16:00 63 20 157/50 H 92 04/02/19 14:42 98.1 F 64 18 153/54 H 94 Laboratory Results 04/02/19 15:23 04/02/19 15:23 Code Status & VTE Plan Code Status Full code VTE Prophylaxis Plan VTE Prophylaxis will be ordered: Yes PG Care Time/CCT Total # of Minutes Spent Total Time Spent with Patient: Total time spent is greater than 50% in coordination of care (as documented) at patient's floor/unit and/or counseling patient: 60 m (1) GI bleed GI bleed type/associated pathology: unspecified gastrointestinal hemorrhage type Qualified Code(s): K92.2 - Gastrointestinal hemorrhage, unspecified (2) Hypertension Hypertension type: essential hypertension Qualified Code(s): I10 - Essential (primary) hypertension (3) COPD (chronic obstructive pulmonary disease) COPD type: unspecified COPD Qualified Code(s): J44.9 - Chronic obstructive pulmonary disease, unspecified (4) Hypothyroidism Hypothyroidism type: acquired Qualified Code(s): E03.9 - Hypothyroidism, unspecified
[2019-04-02] MEDS ORDERED: PANTOprazole 80 MG in DEXTROSE 5% 100 ML IV SCH (16:45)
[2019-04-02] MEDS ORDERED: PANTOprazole 80 MG in DEXTROSE 5% 100 ML IV ONE (16:45)
[2019-04-02] MEDS ORDERED: PANTOprazole 40 MG in DEXTROSE 5% 100 ML IV SCH (17:00)
[2019-04-02] MEDS ORDERED: HydrALAZINE HCL 20 MG/ML VIAL IV PRN (18:31)
[2019-04-02] MEDS ORDERED: ONDANSETRON INJ 2 MG/ML 2 ML VIAL IV PRN (18:31)
[2019-04-02] MEDS ORDERED: CARBOHYDRATES FOR HYPOGLYCEMIA PO PRN (19:15)
[2019-04-02] MEDS ORDERED: GLUCOSE 10 TABS/TUBE PO PRN (19:15)
[2019-04-02] MEDS ORDERED: DEXTROSE 50% 50 ML SYRINGE IV PRN (19:15)
[2019-04-02] MEDS ORDERED: GLUCOSE 40% GEL 15 GM TUBE PO PRN (19:15)
[2019-04-02] MEDS ORDERED: GLUCAGON FOR INJ 1 MG VIAL IM PRN (19:15)
--- NOTE | 2019-04-02 19:36 | Consultation Report ---
DATE OF CONSULTATION: 04/02/2019 REASON FOR EVALUATION: Recurrent anemia and melena. HISTORY OF PRESENT ILLNESS: The patient is a 78-year-old male well known to me from previous hospitalizations for GI bleeding and gastric antral vascular ectasia. The patient was last endoscoped on 03/19 were some residual gastric antral vascular ectasia lesions were cauterized with argon plasma coagulation. The patient received 4 units of blood during the hospitalization and was discharged. During dialysis today, the patient was noted to be anemic with a hemoglobin of 7 and was referred to the Emergency Room for further evaluation. The patient reports that he has been having dark stools for the last week. In the Emergency Room, the patient was evaluated and I was called and I referred the patient for admission to get a tagged red blood cell bleeding scan prior to initiating any transfusions. PAST MEDICAL HISTORY: Extensive and can be found in previous notes. CURRENT MEDICATIONS: Per list. ALLERGIES: TRAMADOL, METFORMIN. FAMILY HISTORY: Positive for diabetes, coronary disease, hypertension, gallbladder disease, breast cancer in his mother. SOCIAL HISTORY: The patient is . 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 Former smoker, no alcohol. REVIEW OF SYSTEMS: Positive for weakness. PHYSICAL EXAMINATION: GENERAL: The patient appears chronically ill. VITAL SIGNS: Blood pressure is 153/54, pulse 64, temperature is 36.7. LUNGS: Clear. HEART: Showed a grade 3/6 systolic murmur with a normal rhythm. ABDOMEN: Soft and nontender. Stool evaluated in the ER is dark and Hemoccult positive per Dr. Klein. Labs show currently a hemoglobin of 6.8. IMPRESSION AND PLAN: The patient has recurrent gastrointestinal blood loss. I would recommend a tagged red blood cell bleeding scan to see if we can localize the source of bleeding, to see if it is coming from a source other than his stomach, which has been treated multiple times. Further recommendations will be based on the results of his bleeding scan.
[2019-04-02] MEDS ORDERED: INSULIN ASPART 100 UNITS/ML 3 ML PEN SC SCH (21:00)
[2019-04-02] MEDS ORDERED: ROSUVASTATIN CALCIUM 20 MG TAB PO SCH (21:00)
[2019-04-02] MEDS ORDERED: TAMSULOSIN HCL 0.4 MG CAP PO SCH (21:00)
[2019-04-02] MEDS: SODIUM CHLORIDE 0.9% 1000ML 1,000 ML IV SCH (21:10)
[2019-04-02] MEDS: PANTOprazole 40 MG in SYRINGE 0 ML IV SCH (21:12)
[2019-04-02] MEDS: SUCRALFATE 1 GM TAB PO SCH (21:12)
[2019-04-02 22:02] LABS: Hemoglobin 7.9 g/dL (14.0-18.0); Mean Corpuscular Hemoglobin 29.7 pg (25-34); Mean Corpuscular Hgb Conc 32.9 g/dL (32-36); Mean Corpuscular Volume 90.2 fL (80-100); Mean Platelet Volume 11.3 fL (7.4-10.4); Platelet Count 165 K/uL (130-400); RDW Coefficient of Variation 16.4 % (11.5-14.5); RDW Standard Deviation 53.6 fL (36.4-46.3); Red Blood Count 2.66 M/uL (4.7-6.1); White Blood Count 3.92 K/uL (4.8-10.8)
[2019-04-02] MEDS ORDERED: Nursing to Pharmacy Communication ONE (23:41)
[2019-04-03] MEDS: INSULIN ASPART 100 UNITS/ML 3 ML PEN SC SCH ×2 (06:14→12:23)
[2019-04-03] MEDS ORDERED: LEVOTHYROXINE SODIUM 50 MCG TABLET PO SCH (06:30)
[2019-04-03] MEDS ORDERED: LEVOTHYROXINE SODIUM 200 MCG TABLET PO SCH (06:30)
[2019-04-03 07:57] LABS: Hemoglobin 7.4 g/dL (14.0-18.0); Mean Corpuscular Hgb Conc 32.2 g/dL (32-36); Mean Corpuscular Volume 90.2 fL (80-100); Mean Platelet Volume 10.4 fL (7.4-10.4); Platelet Count 155 K/uL (130-400); RDW Coefficient of Variation 16.8 % (11.5-14.5); RDW Standard Deviation 54.8 fL (36.4-46.3); Red Blood Count 2.55 M/uL (4.7-6.1); White Blood Count 3.81 K/uL (4.8-10.8)
[2019-04-03] MEDS: PANTOprazole 40 MG in SYRINGE 0 ML IV SCH (08:29)
[2019-04-03] MEDS: SUCRALFATE 1 GM TAB PO SCH (08:29)
[2019-04-03] MEDS: SODIUM CHLORIDE 0.9% 1000ML 1,000 ML IV SCH (08:31)
[2019-04-03 08:46] LABS: BUN Creatinine Ratio 8.2 (10-20); Bilirubin Direct 0.2 mg/dl (0-0.2); Bilirubin,Total 0.5 mg/dl (0.2-1); Creatinine Clr Calc Pharmacy 14.2 ml/min; Est GFR (Non-African American) 9.5; Globulin 3.2 gm/dl (2.5-4.0); Potassium 3.2 mmol/L (3.5-5.1); Total Protein 6.2 gm/dl (6.4-8.2)
[2019-04-03] MEDS ORDERED: NEPHROCAPS PO SCH (09:00)
[2019-04-03] MEDS ORDERED: SODIUM CHLORIDE 0.9% 250 ML IV PRN ×2 (10:09→10:15)
--- NOTE | 2019-04-03 10:11 | Nephrology Consultation ---
Date of Consultation April 03, 2019 Assessment & Plan (1) ESRD (end stage renal disease) on dialysis: -- Volume status and electrolyte balance are acceptable. No acute indication for HD at this time -- Will schedule heparin free HD for am (maintain outpatient TTS schedule) -- [facility] [place] [facility] 4hr 2K 2.5Ca F-200NR EDW 97.5 kg (2) Hypertension: -- Mild HTN. Currently asymptomatic. Patient on multidrug regimen. Will monitor. May need to adjust EDW (3) Anemia: -- Recurrent melena w/ history or vascular ectasia involving the gastric antrum. Patient has been transfused one unit PRBC. GI has been consulted and has ordered a tagged RBC scan. Await results History of Present Illness Reason for Consultation: ESRD Attending Physician: Kendall Chen DO History of Present Illness Mr. Mcintyre is a 78 year old white male who is seen at the request of Dr. Pearson to provide inpatient HD and assist w/ medical management. Medical records in the EMR were reviewed today and are summarized as follows: Mr. Nickie kimbrough has ESRD due to diabetic nephropathy. He has been on IHD since 12/16 ([facility]] [place] [facility] 4hr 2K 2.5Ca F-200NR EDW 97.5 kg - primary [employer] Dr. Briceno). His medical history is significant for HTN, AODM, vascular dementia, IgG monoclonal gammopathy, EFREN, BPH, hypothyroidism, and CHF w/ diastolic dysfunction. Mr. Mcintyre was last hospitalized 02/16 - 02/18/19 and 03/19 - 03/20/19 for evaluation of melena. He underwent EGD which revealed vascular ectasis of the gastric antrum. Cauterization was provided. Mr. Mcintyre was dialyzed heparin free yesterday. There were no complications noted in the RN notes. Mr. Mcintyre developed melena following HD. He presented to the ED where Hgb was 6.8. He was transfused one unit PRBC. GI has ordered a tagged PRBC scan. Allergies Allergy/AdvReac Type Severity Reaction Status Date / Time tramadol AdvReac Severe disorented Verified 04/02/19 17:00 ,falling down metformin AdvReac Intermediate CONFUSION Verified 04/02/19 17:00 Home Medications Home Medications Medication Instructions Recorded Confirmed Type pantoprazole 40 mg PO BID #60 tab 04/23/18 04/02/19 Rx amlodipine 10 mg tablet 10 mg PO HS #90 tab 11/12/18 04/02/19 Rx doxazosin 1 mg tablet 1 mg PO DAILY #90 tab 12/23/18 04/02/19 Rx tamsulosin 0.4 mg PO HS #90 cap 01/02/19 04/02/19 Rx docusate sodium 100 mg capsule 200 mg PO QAM #30 cap 01/19/19 04/02/19 Rx furosemide 80 mg tablet 80 mg PO AMPM #60 tab 01/19/19 04/02/19 Rx gabapentin 100 mg capsule 200 mg PO HS #60 cap 02/04/19 04/02/19 Rx Renal Caps 1 mg PO DAILY 02/15/19 04/02/19 History levothyroxine 50 mcg PO DAILY 02/15/19 04/02/19 History levothyroxine 200 mcg PO DAILY 02/15/19 04/02/19 History lisinopril 40 mg tablet 40 mg PO DAILY@1200 #90 tab 02/26/19 04/02/19 Rx Auryxia 420 mg PO TIDM 03/18/19 04/02/19 History Boost Glucose Control 1 ea PO TIDM 03/18/19 04/02/19 History sucralfate 1 g PO BID #1 tab 03/20/19 04/02/19 Rx hydralazine 25 mg tablet 25 mg PO TID #270 tab 03/23/19 04/02/19 Rx rosuvastatin 20 mg tablet 20 mg PO QPM #90 tab 03/23/19 04/02/19 Rx insulin detemir (U- 100) 100 15 units SUBCUT HS ml 03/25/19 04/02/19 History unit/mL subcutaneous solution labetalol 100 mg tablet 400 mg PO BID #720 tab 03/25/19 04/02/19 Rx Patient History Medical History Diabetes Gastric AV malformation Anemia (Acute) End-stage renal disease (ESRD) (Chronic) Hypoxia (Acute) AVF (arteriovenous fistula) Hypnic jerks Uncontrolled daytime somnolence Hyperlipidemia LDL goal <70 Personal history of noncompliance with medical treatment, presenting hazards to health Volume overload Mitral regurgitation Anxiety Arthritis Chronic diastolic congestive heart failure Chronic kidney disease, stage IV (severe) 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, with long-term current use of insulin Depression Diabetic peripheral neuropathy ESRD (end stage renal disease) on dialysis Hiatal hernia with GERD without esophagitis Hearing difficulty IgG monoclonal gammopathy Memory loss Nephrotic syndrome Obstructive sleep apnea Occlusion and stenosis of unspecified carotid artery Osteoporosis Peripheral vascular disease Pulmonary hypertension Vitamin D deficiency CAD (coronary artery disease) BPH (benign prostatic hyperplasia) Hypothyroidism Hypertension Asthma Secondary hyperparathyroidism of renal origin COPD (chronic obstructive pulmonary disease) Acute on chronic respiratory failure (Resolved) Altered mental status (Resolved) Chest pain (Resolved) Elevated troponin (Resolved) Encephalopathy (Resolved) Epistaxis (Resolved) Fluid overload (Resolved) Hypertensive urgency (Resolved) Hypoxia (Resolved) Abnormal colonoscopy Surgical History H/O cardiac catheterization H/O esophagogastroduodenoscopy 02/16/19 [facility]- Dr. Mando White. 50mg propofol, no issues. H/O esophagogastroduodenoscopy 03/06/19 [facility] H/O hemorrhoidectomy Hx of cholecystectomy No pertinent past surgical history Family History Unknown Myocardial infarction Diabetes Mother Diabetes Gallbladder disease Hypertension Breast cancer late 70s Father Diabetes Hypertension Brother Diabetes Hypertension Kidney disease Social History Preferred Language: Faroese Communication Ability: Effective Nursing Surgical Services Director Required: No Beliefs That Will Affect Care: None marital status: Current Living Situation: Spouse current occupational status: employed current occupation: works part-time at [employer] Feels Safe at Home: Yes Smoking Status: Former smoker Tobacco Type: cigarettes ; Second Hand Exposure: No ; Hx Alcohol Use: No Hx Substance Use: No Childhood Exposure to Second-Hand Smoke: No caffeine: Yes Dental Care, Regularly: Yes Physical Activity Frequency Comment: limited due physical condition Seatbelt Use: sometimes Review of Systems Constitutional: no fever and no chills Eyes: no worsening vision and no problem reported Ear, Nose, Mouth, Throat: no problem reported Respiratory: no cough and no dyspnea Cardiovascular: no chest pain, no palpitations and no edema Gastrointestinal: no abdominal pain, no nausea, no vomiting and no diarrhea/loose stools Genitourinary: no dysuria, no urinary hesitancy and no hematuria Musculoskeletal: no back pain Integumentary: no rash Neurologic: no falls, no dizziness and no confusion Physical Exam Constitutional: + frail appearing; not in distress Eyes: PERRL, conjunctivae normal, anicteric sclerae ENMT: external ear and nose normal, oropharynx normal Neck: trachea midline, no thyromegaly Respiratory: normal respiratory effort, lungs clear to auscultation Cardiovascular: RRR, no murmur, no edema Extremities: + AV fistula (+ bruit) Gastrointestinal (Abdomen): normal bowel sounds, soft, nontender, no hepatosplenomegaly Musculoskeletal: Extremities: no cyanosis Skin: no rashes, warm and dry Neurologic: awake; not confused Results & Data Vital Signs (Past 12 Hours) Vital Signs Temp Pulse Pulse Resp BP Pulse Ox 04/03/19 07:30 60 04/03/19 07:00 36.7 C 63 18 171/64 H 91 04/03/19 03:42 36.7 C 61 20 176/73 H 93 04/03/19 01:44 63 04/02/19 23:02 36.5 C 63 19 173/70 H 91 Laboratory Results Laboratory Tests 04/02/19 04/03/19 04/03/19 15:23 07:43 07:43 WBC 3.81 L Hgb 7.4 L Hct 23.0 L Plt Count 155 INR 1.1 Sodium 138 Potassium 3.2 L Chloride 99 Carbon Dioxide 29 BUN 44 H Creatinine 5.41 H* D Glucose 155 H PG Care Time/CCT Total # of Minutes Spent Total Time Spent with Patient: Total time spent is greater than 50% in coordination of care (as documented) at patient's floor/unit and/or counseling patient: (1) Hypertension Hypertension type: essential hypertension Qualified Code(s): I10 - Essential (primary) hypertension (2) Anemia Anemia type: unspecified type Qualified Code(s): D64.9 - Anemia, unspecified
[2019-04-03] MEDS ORDERED: ACETAMINOPHEN 500 MG TAB PO STA (11:01)
--- NOTE | 2019-04-03 12:16 | Nuclear Medicine Report ---
NM GI bleeding CLINICAL HISTORY: Recurrent gastrointestinal bleeding COMPARISON STUDY: TECHNIQUE: Following the IV administration of 27 mCi of technetium 99m UltraTag labeled red blood diego ls, nuclear bleeding scan was performed. Anterior flow images were obtained every 2 seconds for a tot al 48 seconds. Anterior static images were obtained every 5 minutes for a total of 60 minutes. FINDINGS: There is physiologic activity within the liver spleen and blood vessels. There are no foci of increased activity viewed as suspicious for a gastrointestinal hemorrhage. IMPRESSION: No scintigraphic evidence of active GI bleeding. Electronically signed by: Gino Gu M.D. 04/03/2019 12:15 PM
[2019-04-03] MEDS ORDERED: Nursing to Pharmacy Communication ONE (15:05)
--- NOTE | 2019-04-03 15:33 | Progress Note ---
DATE: 04/03/2019 The patient is having some dark brown stools, but no overt bleeding. His bleeding scan last night was negative for any signs of active bleeding. He is getting a second unit of blood currently for his hemoglobin of 7.4 and then the plan is for him to be discharged later today. On exam, the patient is up and ambulatory, blood pressure is 116/67, pulse 70, temperature is 36.5, room air saturation 96%. Does look chronically ill. He is scheduled for dialysis tomorrow. IMPRESSION: The patient has recurrent blood loss of unclear source. His bleeding scan was negative and he was just cauterized for his vascular ectasia in the stomach a week ago. He reports that he had a colonoscopy 5 or 6 weeks ago which did not show any source of blood loss either. PLAN: Plan is to discharge the patient home after his second unit of blood today and follow him clinically as an outpatient. If he has signs of active bleeding, then I would repeat the bleeding scan to see if we can identify source for his blood loss.
[2019-04-03] MEDS ORDERED: INSULIN ASPART 100 UNITS/ML 3 ML PEN SC SCH (16:30)
--- NOTE | 2019-04-03 17:20 | Discharge Summary ---
Date of Service April 03, 2019 Admission HPI Per Admitting Provider The patient is a 78 y/o male who presents to the emergency department for evaluation of intermittent rectal bleeding that began prior to arrival. The patient states that he was getting dialysis this morning and they called his family and stated his count was 7 and he needs blood so to go to the ED. The patient notes that a week ago he began having black stool. The family states that he has a history of GI bleeding and that he was admitted to the hospital a few weeks ago, received 4 units of blood while he was here, and was recently discharged on 03/20. The patient denies abdominal pain and any other symptoms. His last endoscopy was on 03/19/2019 which showed gastric antral vascular ectasia and he underwent argon plasma coagulation by Dr. White. His hemoglobin now in the ER is 6.8. He will be started on blood transfusion and Protonix and will be admitted for further evaluation and management. Gastroenterology was notified. 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 HEENT normocephalic atraumatic mucous members moist. Breathing unlabored no accessory muscle use good effort. Skin shows no rashes no pallor or icterus. Discharge Data Allergies Allergy/AdvReac Type Severity Reaction Status Date / Time tramadol AdvReac Severe disorented Verified 04/02/19 17:00 ,falling down metformin AdvReac Intermediate CONFUSION Verified 04/02/19 17:00 Consultations 04/02/19 16:09 ED Decision to Admit Stat 04/02/19 18:31 Consult Gastroenterology Routine Consult Nephrology Stat Hospital Course (1) Acute blood loss anemia: Related to Eris Dutton ongoing GI bleeding. Fortunately between his nuclear medicine bleeding scan being negative for acute bleeding as well as his stools turning back to brown, it appears that this has now stopped. We discussed that this is an ongoing problem, he is well aware of this, and right now is needing transfusions approximately twice a month. He notes significant frustration about finding out that he is anemic after dialysis and being sent to the ER, and would like to try a different approach. We discussed that given that unfortunately bleeding is almost a given with his situation, being proactive would be a reasonable approach. We will have him get a weekly CBC checked during hemodialysis, with results stat to his PCP. Depending on the results and his symptoms, his PCP can continue watchful waiting versus facilitating an outpatient transfusion, versus direct admission, versus ER if he sounds severely or almost catastrophically symptomatic. While this approach will be unlikely to cut down on how often he needs transfusions, hopefully it will at least reduce ER visits and hospitalizations to a degree. (2) GI bleed: see above (3) Heme positive stool: (4) Gastric AV malformation: see above (5) Chronic diastolic congestive heart failure: (6) ESRD (end stage renal disease) on dialysis: ongoing HD as outpt (7) Hypertension: home meds (8) COPD (chronic obstructive pulmonary disease): asymptomatic, outpt f/u (9) Hypothyroidism: Continue Synthroid. Total Time Total Time Spent Total Time Spent (In Minutes): Greater than 30 Discharge Plan Discharge Items Patient Disposition: Home - Self-Care Reason For Visit: GI BLEED Discharge Diagnosis: recurrent GI bleeding (see below) Activity: Resume your previous activity Non-emergency contact: Primary Care Provider Call non-emergency contact if: you have any medication questions Follow-up/Referrals: Mahsa Wang, [Primary Care Provider] - 04/10/19 9:40 am (Please, follow up with Dr. Wang on SaturdayApril 10 at 9:40 am. *If you need to change this appointment, call the office at [phone].) Diet: Regular Addtl Attending Provider Instructions: repeated GI bleeding related to GAVE -as we discussed, GAVE is an unfortunate anatomic issue where there are blood vessels too close to the surface in your stomach, because of this, you can always end up oozing some blood - sometimes more than others, but it's more of a problem we need to manage than something we can fix -your counts are better - still low, but reasonable - at 8.4 -since your stools are turning more brown, and the nuclear medicine scan did not show any signs of active bleeding, it's almost certain that for now the bleeding has stopped -to try to make the best of a bad situation, we're going to try to set together a scheme that is more proactive than reactive - especially with your recent track record of deteriorating to where you need a transfusion about twice a month: -weekly blood counts during your saturday dialysis session - with the results to go to Dr Wang -if your counts are getting low and you're not having any symptoms/not having severe symptoms, but you're getting to where you need blood, hopefully by following your numbers this closely we'll see it before it's a crisis and Dr Wang can facilitate setting up a transfusion as an outpatient - where you come to the back of the hospital at the infusion unit (called [facility]) and they can see you, give you blood, and get you home -if you're counts are getting low and you're having enough symptoms that you need transfused faster than can be set up through [facility], Dr Wang's office can call us as hospitalists directly and just get you a bed in the hospital to get you tucked in, assessed, and transfused, but skip the craziness of the ER -if, and only if, you're feeling so bad that you're worried (or your family is worried) then you'd need to go to the ER for the ability to do things at a more rapid pace than we can the other ways -if you feel symptoms that make you think your counts are low and you're not due to get checked for several days (or likewise, if you see that your stools suggest you're losing a good bit of blood but aren't due to get checked for several days) then it would be time to go to the office for them to check counts right away that day to assess the situation -while this isn't a perfect solution, since GAVE is a problem that doesn't go away, at least this might help cut down on the craziness/inconvenience/etc of basically having your transfusions "indirectly facilitated through the ER" Stand-Alone Forms: [facility] [email or web address], Smoking Cessation Medications and DC Order Prescriptions: Continued doxazosin [Cardura] 1 mg tablet 1 mg PO DAILY Qty: 90 RF: 1 gabapentin 100 mg capsule 200 mg PO HS Qty: 60 RF: 5 lisinopril 40 mg tablet 40 mg PO DAILY@1200 Qty: 90 RF: 3 hydralazine 25 mg tablet 25 mg PO TID Qty: 270 RF: 1 rosuvastatin 20 mg tablet 20 mg PO QPM Qty: 90 RF: 1 labetalol 100 mg tablet 400 mg PO BID Qty: 720 RF: 1 amlodipine 10 mg tablet 10 mg PO HS Qty: 90 RF: 0 docusate sodium 100 mg capsule 200 mg PO QAM Qty: 30 RF: 0 furosemide 80 mg tablet 80 mg PO AMPM Qty: 60 RF: 0 Levemir U-100 Insulin 100 unit/mL solution 15 units subcut HS RF: 0 pantoprazole 40 mg Tablet,Delayed Release (Dr/Ec) 40 mg PO BID Qty: 60 RF: 2 tamsulosin 0.4 mg capsule 0.4 mg PO HS Qty: 90 RF: 1 Renal Caps 1 mg capsule 1 mg PO DAILY RF: 0 levothyroxine 50 mcg tablet 50 mcg PO DAILY RF: 0 levothyroxine 200 mcg tablet 200 mcg PO DAILY RF: 0 Auryxia 210 mg iron tablet 420 mg PO TIDM RF: 0 Boost Glucose Control 0.06-1.1 gram-kcal/mL Liquid 1 ea PO TIDM RF: 0 sucralfate 1 gram Tablet 1 g PO BID Qty: 1 RF: 0 Discharge Orders: Discharge Order (Routine); Ordered 04/03/19 Ordered By: Kendall Chen Admission Data Admit Date/Time: 04/02/19 16:25 Attending Provider: Kendall Chen Admit Provider: Surinder Siddiqui Primary Care Provider: Mahsa Wang Other Providers: Surinder Siddiqui ; Merlyn Briceno ; Mando White Other Interventions: Discharge Summary Assessment (RN) Last Done: 04/03/19 17:07
[2019-04-04] MEDS ORDERED: EPOETIN ALFA 10,000 UNITS/ML VIAL IV ONE (07:00)
[2019-04-04] MEDS ORDERED: SODIUM CHLORIDE 0.9% 1000ML 1,000 ML IV PRN (07:00)
== END 2019-04-03 18:48 | disposition home or self-care (01) | DRG 377 ==
LOC: ED 14:41 → SUATTDRO 16:25 → 2W 16:25

== ENCOUNTER 2019-04-25 07:25 | Inpatient (IN) ==
--- NOTE | 2019-04-25 08:09 | Emergency Department Note ---
Entered by Coleman Moreira acting as a scribe for Terrence Brown MD History of Present Illness General Chief complaint: Abdominal Pain Stated complaint: AB PAIN Time Seen by Provider: 04/25/19 07:37 Source: patient Mode of arrival: EMS Limitations: no limitations History of Present Illness Onset (ago): hour(s) 1 Location: abdomen Severity: similar to prior episodes Pain Consistency: + constant Maximum Pain Intensity: 5 Current Pain Intensity: 10 Quality: + burning Associated symptoms: + denies other symptoms (sob, chest pain, nausea, vomiting, dysuria, hematochezia, blurry vision, fever, illness) and + other (abdominal pain, itchiness) Treatments prior to arrival: other (dialysis) The patient is a 78 year old male who presents to the Emergency Room with complaints of an episode of constant burning abdominal pain that started one hour prior to arrival during a dialysis treatment. The patient notes that the pain will fluctuate from a 7/10 to a 10/10. He reports that the abdominal pain is ongoing and comes and goes. The patient states that he has been on dialysis for four years. The patient notes that he has been feeling itchy in his legs along with a head ache. He denies any sob, chest pain, nausea, vomiting, dysuria, hematochezia, blurry vision, fever, or illness. He reports that he has been able to keep fluids down, but denies being able to make urine. Home Medications Home Medications Medication Instructions Recorded Confirmed Type amlodipine 10 mg tablet 10 mg PO HS #90 tab 11/12/18 04/25/19 Rx tamsulosin 0.4 mg PO HS #90 cap 01/02/19 04/25/19 Rx docusate sodium 100 mg capsule 200 mg PO QAM #30 cap 01/19/19 04/25/19 Rx gabapentin 100 mg capsule 200 mg PO HS #60 cap 02/04/19 04/25/19 Rx Renal Caps 1 mg PO QDL 02/15/19 04/25/19 History levothyroxine 200 mcg PO QAM 02/15/19 04/25/19 History lisinopril 40 mg tablet 40 mg PO DAILY@1200 #90 tab 02/26/19 04/25/19 Rx Auryxia 420 mg PO TIDM 03/18/19 04/25/19 History Boost Glucose Control 1 ea PO TIDM 03/18/19 04/25/19 History insulin detemir U-100 100) 100 15 units SUBCUT HS ml 03/25/19 04/25/19 History unit/mL subcutaneous solution doxazosin [Cardura] 1 mg PO QDL 04/07/19 04/25/19 History furosemide 120 mg PO AMPM 04/07/19 04/25/19 History insulin aspart U-100 [Novolog 0 unit SUBCUT ACHS 04/07/19 04/25/19 History U-100 Insulin aspart] rosuvastatin 20 mg PO HS 04/07/19 04/25/19 History levothyroxine 75 mcg PO DAILY 04/24/19 04/25/19 History hydralazine 25 mg PO TIDM 04/25/19 04/25/19 History labetalol 400 mg PO AMPM 04/25/19 04/25/19 History pantoprazole 40 mg PO AMPM 04/25/19 04/25/19 History Allergies Allergy/AdvReac Type Severity Reaction Status Date / Time tramadol AdvReac Severe disorented Verified 04/25/19 07:57 ,falling down metformin AdvReac Intermediate CONFUSION Verified 04/25/19 07:57 Past Med/Surg History Medical History (Updated 04/25/19 @ 12:22 by Surinder Siddiqui MD) Anemia (Acute) Anxiety Arthritis Asthma AVF (arteriovenous fistula) left arm BPH (benign prostatic hyperplasia) CAD (coronary artery disease) Chronic diastolic congestive heart failure Chronic kidney disease, stage IV (severe) dialysis - [facility], sat at [facility] follow with dr herrera Colon, diverticulosis 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, with long-term current use of insulin COPD (chronic obstructive pulmonary disease) Depression Diabetic peripheral neuropathy Gastric AV malformation GERD (gastroesophageal reflux disease) Hearing difficulty Hyperlipidemia LDL goal <70 Hypertension Hypothyroidism Memory loss Mitral regurgitation Obstructive sleep apnea uses oxygen 2 l nc at hs Pulmonary hypertension Secondary hyperparathyroidism of renal origin Uncontrolled daytime somnolence sleeps thru day and cant sleep at [facility] Surgical History H/O cardiac catheterization many years ago - over 10 years no stents follow with trung H/O esophagogastroduodenoscopy 02/16/19 and 03/2019 [facility]- Dr. Mando White. 50mg propofol, no issues. H/O hemorrhoidectomy Hx of cholecystectomy Family History Unknown Myocardial infarction Diabetes Mother Diabetes Gallbladder disease Hypertension Breast cancer late 70s Father Diabetes Hypertension Brother Diabetes Hypertension Kidney disease Social History Preferred Language: Persian Communication Ability: Effective Visual Impairment: No Limitations Hearing Ability: Hard of Hearing Social Director Required: No Beliefs That Will Affect Care: None marital status: Current Living Situation: Spouse current occupational status: disabled current occupation: works part-time at [employer] Other Information That Helps Us Care for You: No Feels Safe at Home: Yes Safety Concerns: Feels Safe At This Time Smoking Status: Former smoker Tobacco Type: cigarettes ; Do You Dip or Chew Tobacco: No ; Number of Years Since Quit: 25 ; Second Hand Exposure: No ; Tobacco Cessation Education Requested by Patient: No Hx Alcohol Use: No Hx Substance Use: No Childhood Exposure to Second-Hand Smoke: No Other Diet Comment: regular caffeine: Yes during the past year weight has: remained stable Dental Care, Regularly: Yes Physical Activity Frequency: Does not Exercise Physical Activity Frequency Comment: limited due physical condition Seatbelt Use: sometimes Sunscreen Use: No Review of Systems See HPI for pertinent positives & negatives. and A total of 10 systems reviewed and were otherwise negative Physical Exam Vital Signs Vital Signs - 24 hr 04/25/19 07:38 04/25/19 08:07 04/25/19 09:35 Temperature 36.4 C L Temperature Source Oral Pulse Rate 56 L Pulse Rate [Apical] 62 Respiratory Rate 18 18 Blood Pressure 143/65 H Blood Pressure [Left Arm] 165/65 H Blood Pressure [Right Arm] Blood Pressure Mean 91 Blood Pressure Mean [Left Arm] 98 Blood Pressure Mean [Right Arm] Pulse Oximetry 93 93 93 Oxygen Delivery Method Room Air Room Air Room Air Sepsis Recent Fever Within 48 Hours No Sepsis New/Unexplained Change in Mental Status No Sepsis Action Taken by Nursing No Action Required 04/25/19 11:00 Temperature Temperature Source Pulse Rate Pulse Rate [Apical] 56 L Respiratory Rate 18 Blood Pressure Blood Pressure [Left Arm] Blood Pressure [Right Arm] 128/54 L Blood Pressure Mean Blood Pressure Mean [Left Arm] Blood Pressure Mean [Right Arm] 78 Pulse Oximetry 93 Oxygen Delivery Method Room Air Sepsis Recent Fever Within 48 Hours Sepsis New/Unexplained Change in Mental Status Sepsis Action Taken by Nursing General: Non-ill appearing older male in no acute distress. Dialysis fistula in right arm. HEENT: Normal cephalic atraumatic. Pupils are equal round and reactive to light. Extraocular movements are intact. Oropharynx is pink with moist mucous membranes. No swelling of the mouth lips or tongue. Neck: Supple with a midline trachea. No meningeal signs or stiffness, no JVD or bruits. No Stridor. Chest: Clear to auscultation bilaterally. No wheezes or rhonchi. No increased work of breathing. Heart: regular rate and rhythm. Abdomen: Soft nontender, nondistended without rebound guarding or rigidity. Mildly tender in right abdomen. Extremities: No cyanosis clubbing. Trace pedal edema in lower extremities. No calf tenderness or asymmetry Spine/Back. Non tender to palpation. No CVA tenderness Skin: Good turgor without rashes. Neurologic exam: Cranial nerves two through 12 are intact. Motor and sensation are intact and symmetrical throughout. Course Course 0745: The patient was evaluated in room B04B. A complete history and physical exam was performed. 1049: Discussed the patient's case with Dr. Jackson, [facility] Hospitalist. The patient will be admitted for further management. Medical Decision Making Differential Diagnosis Anemia, infection, aneurism, colitis, appendicitis, electrolyte imbalance, metabolic syndrome Medical Records Attestation: I reviewed the patient's medical records. Home Medications Current Medication List: was personally reviewed by me Laboratory Data Attestation: I reviewed the patient's lab results. Result diagrams: 04/25/19 08:03 04/25/19 08:03 Lab Results 04/25/19 04/25/19 04/25/19 Range/Units 08:00 08:03 08:03 WBC 4.31 L (4.8-10.8) K/uL RBC 2.53 L (4.7-6.1) M/uL Hgb 7.9 L (14.0-18.0) g/dL Hct 24.2 L (42-52) % MCV 95.7 (80-100) fL MCH 31.2 (25-34) pg MCHC 32.6 (32-36) g/dL RDW Std Deviation 63.4 H (36.4-46.3) fL RDW Coeff of Jose C 18.0 H (11.5-14.5) % Plt Count 132 (130-400) K/uL MPV 10.0 (7.4-10.4) fL Immature Gran % (Auto) 0.0 % Neut % (Auto) 79.3 % Lymph % (Auto) 8.1 % [place] % (Auto) 7.9 % Eos % (Auto) 4.2 % Baso % (Auto) 0.5 % Immature Gran # (Auto) 0.00 (0.00-0.02) K/uL Neut # (Auto) 3.42 (1.4-6.5) K/uL Lymph # (Auto) 0.35 L (1.2-3.4) K/uL [place] # (Auto) 0.34 (0.11-0.59) K/uL Eos # (Auto) 0.18 (0-0.5) K/uL Baso # (Auto) 0.02 (0-0.2) K/uL Sodium 138 (136-145) mmol/L Potassium 3.5 (3.5-5.1) mmol/L Chloride 99 (98-107) mmol/L Carbon Dioxide 31 (21-32) mmol/L Anion Gap 8.0 (3-11) BUN 65 H (7-18) mg/dl Creatinine 5.75 H* (0.6-1.4) mg/dl Est Cr Clr Drug Dosing 13.9 ml/min Est GFR ( Amer) 10.2 Est GFR (Non-Af Amer) 8.8 BUN/Creatinine Ratio 11.4 (10-20) Glucose 124 H (70-99) mg/dl Lactate (0.4-2.0) mmol/L Calcium 9.0 (8.5-10.1) mg/dl Total Bilirubin 0.5 (0.2-1) mg/dl AST 20 (15-37) U/L ALT 23 (12-78) U/L Alkaline Phosphatase 113 (45-117) U/L Troponin I 0.065 H* (0-0.045) ng/ml Total Protein 6.1 L (6.4-8.2) gm/dl Albumin 3.0 L (3.4-5.0) gm/dl Globulin 3.1 (2.5-4.0) gm/dl Albumin/Globulin Ratio 1.0 (0.9-2) Lipase 240 (73-393) U/L Blood Type Antibody Screen Crossmatch 04/25/19 04/25/19 Range/Units 08:03 08:03 WBC (4.8-10.8) K/uL RBC (4.7-6.1) M/uL Hgb (14.0-18.0) g/dL Hct (42-52) % MCV (80-100) fL MCH (25-34) pg MCHC (32-36) g/dL RDW Std Deviation (36.4-46.3) fL RDW Coeff of Jose C (11.5-14.5) % Plt Count (130-400) K/uL MPV (7.4-10.4) fL Immature Gran % (Auto) % Neut % (Auto) % Lymph % (Auto) % [place] % (Auto) % Eos % (Auto) % Baso % (Auto) % Immature Gran # (Auto) (0.00-0.02) K/uL Neut # (Auto) (1.4-6.5) K/uL Lymph # (Auto) (1.2-3.4) K/uL [place] # (Auto) (0.11-0.59) K/uL Eos # (Auto) (0-0.5) K/uL Baso # (Auto) (0-0.2) K/uL Sodium (136-145) mmol/L Potassium (3.5-5.1) mmol/L Chloride (98-107) mmol/L Carbon Dioxide (21-32) mmol/L Anion Gap (3-11) BUN (7-18) mg/dl Creatinine (0.6-1.4) mg/dl Est Cr Clr Drug Dosing ml/min Est GFR ( Amer) Est GFR (Non-Af Amer) BUN/Creatinine Ratio (10-20) Glucose (70-99) mg/dl Lactate 0.6 (0.4-2.0) mmol/L Calcium (8.5-10.1) mg/dl Total Bilirubin (0.2-1) mg/dl AST (15-37) U/L ALT (12-78) U/L Alkaline Phosphatase (45-117) U/L Troponin I (0-0.045) ng/ml Total Protein (6.4-8.2) gm/dl Albumin (3.4-5.0) gm/dl Globulin (2.5-4.0) gm/dl Albumin/Globulin Ratio (0.9-2) Lipase (73-393) U/L Blood Type B Positive Antibody Screen NEGATIVE Crossmatch See Detail Imaging Data Radiologist's Impression: Radiology results as stated below per my review and the radiologist's interpretation: CT SCAN OF THE ABDOMEN AND PELVIS WITHOUT IV CONTRAST CLINICAL HISTORY: Generalized abdominal pain. COMPARISON STUDY: Abdominal CT dated 10/05/2018 and 07/19/2006. TECHNIQUE: CT scan of the abdomen and pelvis is performed from the lung bases to the proximal femora. Images are reviewed in the axial, sagittal, and coronal planes. IV contrast was not administered for this examination as per the referring clinician. Note that the examination was performed in suboptimal fashion without oral and IV contrast. A dose lowering technique was utilized adhering to the principles of ALARA. CT DOSE: 976.44 mGy.cm FINDINGS: Lung bases: The heart is enlarged and there is trace pericardial effusion. The coronary arteries are densely calcified. There is diminished attenuation of the cardiac blood pool as compared to the myocardium suggesting anemia. There is no airspace consolidation or pleural effusion. Bibasilar scarring is noted. There are scattered calcified granulomas. Mild intralobular septal thickening is observed. There is a small hiatal hernia. A 1.5 cm lipoma is noted at the g astroesophageal junction. Liver: The unenhanced liver is enlarged, measuring 21.8 cm in length. There is heterogeneous in attenuation, and mild nodularity of the hepatic surface contour suggests early change of cirrhosis. There is mild central intrahepatic biliary ductal dilatation. A 1.9 cm cyst is noted in the right lobe. Periportal edema is suggested. Gallbladder: Surgically absent noting clips in the gallbladder fossa. Spleen: The spleen is mild enlarged, measuring 14.5 cm in length. Pancreas: Unenhanced pancreas is mildly atrophic. There are least 2 ovoid cystic pancreatic lesions which measure up to 1.5 cm. 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 Adrenal glands: Unremarkable. Kidneys: The unenhanced kidneys are atrophic and without hydronephrosis. Bilateral renal cysts measure up to 3 cm. Additional subcentimeter cortical hypodensities also likely represent cysts but are too small for definitive characterization. Renovascular calcifications are noted. There are no renal calculi identified. Abdominal vasculature: The abdominal aorta is normal in course and caliber noting advanced atherosclerotic calcification. Bowel: Large duodenal diverticula are noted. There are mildly distended and fluid-filled loops of small bowel in the left upper quadrant which measure up to 3 cm in diameter. There is minimal interloop fluid. No obstruction is seen and a transition point is identified. No associated wall thickening is identified. There is no pneumatosis intestinalis or portal venous gas. There is moderate to advanced colonic diverticulosis without CT evidence of acute diverticulitis. The appendix is normal as imaged. Peritoneum: There is trace perihepatic ascites. No intraperitoneal free air is seen. Lymphadenopathy: None. Pelvic viscera: The prostate gland is mildly enlarged and heterogeneous. Although decompressed, the bladder wall appears thickened and there is pericystic inflammation. Skeletal structures: The skeletal structures are osteopenic. Moderate lumbosacral spondylosis is observed. No lytic or blastic lesions are seen. IMPRESSION: 1. Suboptimal examination without oral and IV contrast. 2. There are mildly distended and fluid-filled loops of small bowel in the left upper quadrant with trace interloop fluid. There is no evidence of transition point or bowel obstruction. There is no discernible wall thickening, pneumatosis intestinalis, or portal venous gas. Correlate clinically for evidence of a nonspecific enteritis. 3. Although the bladder is decompressed there is pericystic inflammation. Correlation with clinical findings and urinalysis will be required. 4. The liver enlarged and heterogeneous. Early changes of cirrhosis are suspected. 5. Trace perihepatic ascites and splenomegaly suggest portal hypertension. 6. Cardiomegaly. There is mild intralobular septal thickening seen at the lung bases. This could represent mild acute versus chronic congestive change. Clinical correlation will be required. 7. Moderate to advanced colonic diverticulosis without CT evidence of acute diverticulitis. 8. Additional findings as above. Electronically signed by: Shayan Gonzalez M.D. 04/25/2019 9:01 AM ECG Data Attestation: I personally reviewed and interpreted this ECG as follows: Indication: + abdominal pain Rate (beats per minute): 49 Rhythm: + sinus bradycardia ECG Intervals/blocks: + First degree AV block and + Right Bundle branch block ECG ST segments: + T-wave inversions (Lateral, inferior) Comparison ECG Date: from (04/07/2001) Change: the following changes noted (rate decreased from 61) Blood Pressure Blood Pressure Findings: Elevated blood pressure Blood Pressure Disposition: did not require urgent referral MDM Narrative This patient comes in as described above. He was placed in room B4. He has a very complex medical history. He has history ESRD and is on dialysis. He also has intermittent abdominal pain for the last 9 months he tells me. He has a history of GI bleed that seems to be more chronic he is also on iron. He is scheduled to have an endoscopy this coming week. IV access established multiple blood testing was obtained including type and screen. His vital signs are stable. He was reassessed frequently. We also did order a CAT scan of his abdomen. CAT scan was unremarkable. His hemoglobin was low at 7.9. He has been typing screened and then ultimately typed and crossed. He apparently had 2 units of blood transfused on Saturday and keeps trickling down. We did a rectal exam and he was melanotic that was guaiac positive. This is complicated by the fact that he does have ESRD. I do think he needs to be admitted for further treatment and evaluation and likely transfusions and GI work-up. We have consulted the hospitalist to see him in the ER for these measures. Impression & Plan GI (gastrointestinal bleed), ESRD (end stage renal disease), Anemia, Abdominal pain, Melanoma Discharge Plan Visit Data Chief Complaint: Abdominal Pain Stated Complaint: AB PAIN ED Provider: Terrence Brown ED Midlevel Provider: Roxie Lyons Discharge Problem: GI (gastrointestinal bleed), ESRD (end stage renal disease), Anemia, Abdominal pain, Melanoma Patient Disposition: Being Evaluated by Hospitalist Discharge Instructions Interventions: ED Discharge Assessment Last Done: 04/25/19 12:06 Resident Activity Tracking Resident Involvement: Resident Care Provided Care Provided: Adult ED (patient seen and evaluated in conjunction with Dr. Brown) Discharge Problem: GI (gastrointestinal bleed) Qualifiers: GI bleed type/associated pathology: unspecified gastrointestinal hemorrhage type Qualified Code(s): K92.2 - Gastrointestinal hemorrhage, unspecified Anemia Qualifiers: Anemia type: unspecified type Qualified Code(s): D64.9 - Anemia, unspecified Abdominal pain Qualifiers: Abdominal location: right upper quadrant Qualified Code(s): R10.11 - Right upper quadrant pain Melanoma Qualifiers: Melanoma location: unspecified site Qualified Code(s): C43.9 - Malignant melanoma of skin, unspecified The scribe's documentation has been prepared under my direction and personally reviewed by me in its entirety. I confirm that the note above accurately reflects all work, treatment, procedures, and medical decision making performed by me.
[2019-04-25 08:13] LABS: Basophils # (auto) 0.02 K/uL (0-0.2); Basophils % (auto) 0.5 %; Eosinophils # (auto) 0.18 K/uL (0-0.5); Eosinophils % (auto) 4.2 %; Hematocrit (blood only) 24.2 % (42-52); Hemoglobin 7.9 g/dL (14.0-18.0); Lymphocytes # (auto) 0.35 K/uL (1.2-3.4); Lymphocytes % (auto) 8.1 %; Mean Corpuscular Hemoglobin 31.2 pg (25-34); Mean Corpuscular Hgb Conc 32.6 g/dL (32-36); Mean Corpuscular Volume 95.7 fL (80-100); Monocytes # (auto) 0.34 K/uL (0.11-0.59); Monocytes % (auto) 7.9 %; Neutrophils # (auto) 3.42 K/uL (1.4-6.5); Neutrophils % (auto) 79.3 %; Platelet Count 132 K/uL (130-400); RDW Standard Deviation 63.4 fL (36.4-46.3); Red Blood Count 2.53 M/uL (4.7-6.1); White Blood Count 4.31 K/uL (4.8-10.8)
[2019-04-25 08:45] LABS: BUN Creatinine Ratio 11.4 (10-20); Bilirubin,Total 0.5 mg/dl (0.2-1); Creatinine Clr Calc Pharmacy 13.9 ml/min; Est GFR (African American) 10.2; Est GFR (Non-African American) 8.8; Globulin 3.1 gm/dl (2.5-4.0); Potassium 3.5 mmol/L (3.5-5.1); Total Protein 6.1 gm/dl (6.4-8.2)
--- NOTE | 2019-04-25 09:03 | CT Scan Report ---
CT SCAN OF THE ABDOMEN AND PELVIS WITHOUT IV CONTRAST CLINICAL HISTORY: Generalized abdominal pain. COMPARISON STUDY: Abdominal CT dated 10/05/2018 and 07/19/2006. TECHNIQUE: CT scan of the abdomen and pelvis is performed from the lung bases to the proximal femora. Images are reviewed in the axial, sagittal, and coronal planes. IV contrast was not administered for this examination as per the referring clinician. Note that the examination was performed in suboptim al fashion without oral and IV contrast. A dose lowering technique was utilized adhering to the princ iplgabriela of LAM. CT DOSE: 976.44 mGy.cm FINDINGS: Lung bases: The heart is enlarged and there is trace pericardial effusion. The coronary arteries are densely calcified. There is diminished attenuation of the cardiac blood pool as compared to the myoca rdium suggesting anemia. There is no airspace consolidation or pleural effusion. Bibasilar scarring i s noted. There are scattered calcified granulomas. Mild intralobular septal thickening is observed. T here is a small hiatal hernia. A 1.5 cm lipoma is noted at the gastroesophageal junction. Liver: The unenhanced liver is enlarged, measuring 21.8 cm in length. There is heterogeneous in atten uation, and mild nodularity of the hepatic surface contour suggests early change of cirrhosis. There is mild central intrahepatic biliary ductal dilatation. A 1.9 cm cyst is noted in the right lobe. Per iportal edema is suggested. Gallbladder: Surgically absent noting clips in the gallbladder fossa. Spleen: The spleen is mild enlarged, measuring 14.5 cm in length. Pancreas: Unenhanced pancreas is mildly atrophic. There are least 2 ovoid cystic pancreatic lesions w hich measure up to 1.5 cm. 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 Adrenal glands: Unremarkable. Kidneys: The unenhanced kidneys are atrophic and without hydronephrosis. Bilateral renal cysts measur e up to 3 cm. Additional subcentimeter cortical hypodensities also likely represent cysts but are too small for definitive characterization. Renovascular calcifications are noted. There are no renal dottie culi identified. Abdominal vasculature: The abdominal aorta is normal in course and caliber noting advanced atheroscle rotic calcification. Bowel: Large duodenal diverticula are noted. There are mildly distended and fluid-filled loops of sma ll bowel in the left upper quadrant which measure up to 3 cm in diameter. There is minimal interloop fluid. No obstruction is seen and a transition point is identified. No associated wall thickening is identified. There is no pneumatosis intestinalis or portal venous gas. There is moderate to advanced colonic diverticulosis without CT evidence of acute diverticulitis. The appendix is normal as imaged . Peritoneum: There is trace perihepatic ascites. No intraperitoneal free air is seen. Lymphadenopathy: None. Pelvic viscera: The prostate gland is mildly enlarged and heterogeneous. Although decompressed, the b ladder wall appears thickened and there is pericystic inflammation. Skeletal structures: The skeletal structures are osteopenic. Moderate lumbosacral spondylosis is obse rved. No lytic or blastic lesions are seen. IMPRESSION: 1. Suboptimal examination without oral and IV contrast. 2. There are mildly distended and fluid-filled loops of small bowel in the left upper quadrant with t race interloop fluid. There is no evidence of transition point or bowel obstruction. There is no disc ernible wall thickening, pneumatosis intestinalis, or portal venous gas. Correlate clinically for klaus dence of a nonspecific enteritis. 3. Although the bladder is decompressed there is pericystic inflammation. Correlation with clinical f indings and urinalysis will be required. 4. The liver enlarged and heterogeneous. Early changes of cirrhosis are suspected. 5. Trace perihepatic ascites and splenomegaly suggest portal hypertension. 6. Cardiomegaly. There is mild intralobular septal thickening seen at the lung bases. This could repr esent mild acute versus chronic congestive change. Clinical correlation will be required. 7. Moderate to advanced colonic diverticulosis without CT evidence of acute diverticulitis. 8. Additional findings as above. Electronically signed by: Shayan Gonzalez M.D. 04/25/2019 9:01 AM
[2019-04-25] MEDS ORDERED: SODIUM CHLORIDE 0.9% 250 ML IV PRN (10:14)
--- NOTE | 2019-04-25 12:23 | History & Physical Report ---
Date of Service April 25, 2019 Assessment & Plan (1) Abdominal pain: Improving. Further plan per GI. (2) ESRD (end stage renal disease): Patient is currently on dialysis. Consult broaching machine repairer. (3) Anemia: Patient is on iron supplements. Monitor CBC and transfuse accordingly. (4) Diabetes: Add sliding scale insulin per protocol. (5) Gastric AV malformation: (6) Chronic diastolic congestive heart failure: Continue with home meds. (7) Depression: (8) Hearing difficulty: (9) CAD (coronary artery disease): No chest pain. (10) BPH (benign prostatic hyperplasia): Continue with home meds (11) Hypothyroidism: Continue Synthroid. (12) Hypertension: Continue with home meds. (13) Asthma: Controlled. (14) Secondary hyperparathyroidism of renal origin: (15) COPD (chronic obstructive pulmonary disease): (16) Heme positive stool: Continue PPI (17) Colon, diverticulosis: CT scan shows colonic diverticulosis. History of Present Illness Chief Complaint: Abdominal pain. Primary Care Provider: Mahsa Wang DO The patient is 78 year old male who presents to the Emergency Room with complaints of an episode of constant burning abdominal pain that started one ho ur prior to arrival during a dialysis treatment. The patient notes that the pain will fluctuate from a 7/10 to a 10/10. He reports that the abdominal pain comes and goes. The patient states that he has been on dialysis for four years. The patient notes that he has been feeling itchy in his legs along with a head ache. He denies any sob, chest pain, nausea, vomiting, dysuria, hematochezia, blurry vision, fever, or illness. He reports that he has been able to keep fluids down, but denies being able to make urine. Currently his abdominal pain has resolved. Stool for occult blood was positive in the ER. Patient is on iron supplements. He will be admitted under observation for further evaluation and management. GI Nuclear bleeding scan on April 03 was negative for any acute bleeding. He has history of gastric angiodysplasia/AV malformation and is being followed by the cnc supervisor Dr. White. Allergies Allergy/AdvReac Type Severity Reaction Status Date / Time tramadol AdvReac Severe disorented Verified 04/25/19 07:57 ,falling down metformin AdvReac Intermediate CONFUSION Verified 04/25/19 07:57 Home Medications Home Medications Medication Instructions Recorded Confirmed Type amlodipine 10 mg tablet 10 mg PO HS #90 tab 11/12/18 04/25/19 Rx tamsulosin 0.4 mg PO HS #90 cap 01/02/19 04/25/19 Rx docusate sodium 100 mg capsule 200 mg PO QAM #30 cap 01/19/19 04/25/19 Rx gabapentin 100 mg capsule 200 mg PO HS #60 cap 02/04/19 04/25/19 Rx Renal Caps 1 mg PO QDL 02/15/19 04/25/19 History levothyroxine 200 mcg PO QAM 02/15/19 04/25/19 History lisinopril 40 mg tablet 40 mg PO DAILY@1200 #90 tab 02/26/19 04/25/19 Rx Auryxia 420 mg PO TIDM 03/18/19 04/25/19 History Boost Glucose Control 1 ea PO TIDM 03/18/19 04/25/19 History insulin detemir U-100 100) 100 15 units SUBCUT HS ml 03/25/19 04/25/19 History unit/mL subcutaneous solution doxazosin [Cardura] 1 mg PO QDL 04/07/19 04/25/19 History furosemide 120 mg PO AMPM 04/07/19 04/25/19 History insulin aspart U-100 [Novolog 0 unit SUBCUT ACHS 04/07/19 04/25/19 History U-100 Insulin aspart] rosuvastatin 20 mg PO HS 04/07/19 04/25/19 History levothyroxine 75 mcg PO DAILY 04/24/19 04/25/19 History hydralazine 25 mg PO TIDM 04/25/19 04/25/19 History labetalol 400 mg PO AMPM 04/25/19 04/25/19 History pantoprazole 40 mg PO AMPM 04/25/19 04/25/19 History Past Med/Surg History Medical History Anemia (Acute) Anxiety Arthritis Asthma AVF (arteriovenous fistula) left arm BPH (benign prostatic hyperplasia) CAD (coronary artery disease) Chronic diastolic congestive heart failure Chronic kidney disease, stage IV (severe) dialysis - [facility], sat at [facility] follow with dr herrera 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, with long-term current use of insulin COPD (chronic obstructive pulmonary disease) Depression Diabetic peripheral neuropathy Gastric AV malformation GERD (gastroesophageal reflux disease) Hearing difficulty Hyperlipidemia LDL goal <70 Hypertension Hypothyroidism Memory loss Mitral regurgitation Obstructive sleep apnea uses oxygen 2 l nc at hs Pulmonary hypertension Secondary hyperparathyroidism of renal origin Uncontrolled daytime somnolence sleeps thru day and cant sleep at [facility] Surgical History H/O cardiac catheterization many years ago - over 10 years no stents follow with trung H/O esophagogastroduodenoscopy 02/16/19 and 03/2019 [facility]- Dr. Mando White. 50mg propofol, no issues. H/O hemorrhoidectomy Hx of cholecystectomy Family History Unknown Myocardial infarction Diabetes Mother Diabetes Gallbladder disease Hypertension Breast cancer late 70s Father Diabetes Hypertension Brother Diabetes Hypertension Kidney disease Social History Preferred Language: Comoran Communication Ability: Effective Visual Impairment: No Limitations Hearing Ability: Hard of Hearing Production Recorder Required: No Beliefs That Will Affect Care: None marital status: Current Living Situation: Spouse current occupational status: disabled current occupation: works part-time at [employer] Other Information That Helps Us Care for You: No Feels Safe at Home: Yes Safety Concerns: Feels Safe At This Time Smoking Status: Former smoker Tobacco Type: cigarettes ; Do You Dip or Chew Tobacco: No ; Number of Years Since Quit: 25 ; Second Hand Exposure: No ; Tobacco Cessation Education Requested by Patient: No Hx Alcohol Use: No Hx Substance Use: No Childhood Exposure to Second-Hand Smoke: No Other Diet Comment: regular caffeine: Yes during the past year weight has: remained stable Dental Care, Regularly: Yes Physical Activity Frequency: Does not Exercise Physical Activity Frequency Comment: limited due physical condition Seatbelt Use: sometimes Sunscreen Use: No Review of Systems Review of Systems: All systems reviewed & are unremarkable except as noted in HPI & below Physical Exam Physical Exam: GENERAL : No acute distress Hard of hearing. EYES: No icterus, gaze conjugate NOSE: No evidence of epistaxis MOUTH: No lesions or candidiasis, mucosa moist NECK: Supple LUNGS: CTA B/L, no wheezes, rales or rhonchi HEART: Regular, rate controlled Systolic murmur present ABDOMEN: Soft, NT, ND, BS Present EXTREMITIES: No LE edema, pedal pulses intact NEURO: Cranial nerves intact Results & Data Vital Signs (Past 12 Hours) Vital Signs Temp Pulse Pulse Resp BP BP BP 04/25/19 11:00 56 L 18 128/54 L 04/25/19 09:35 62 18 165/65 H 04/25/19 08:07 04/25/19 07:38 97.5 F L 56 L 18 143/65 H Pulse Ox 04/25/19 11:00 93 04/25/19 09:35 93 04/25/19 08:07 93 04/25/19 07:38 93 Laboratory Results 04/25/19 08:03 04/25/19 08:[address] SCAN OF THE ABDOMEN AND PELVIS WITHOUT IV CONTRAST CLINICAL HISTORY: Generalized abdominal pain. COMPARISON STUDY: Abdominal CT dated 10/05/2018 and 07/19/2006. TECHNIQUE: CT scan of the abdomen and pelvis is performed from the lung bases to the proximal femora. Images are reviewed in the axial, sagittal, and coronal planes. IV contrast was not administered for this examination as per the referring clinician. Note that the examination was performed in suboptimal fashion without oral and IV contrast. A dose lowering technique was utilized adhering to the principles of ALARA. CT DOSE: 976.44 mGy.cm FINDINGS: Lung bases: The heart is enlarged and there is trace pericardial effusion. The coronary arteries are densely calcified. There is diminished attenuation of the cardiac blood pool as compared to the myocardium suggesting anemia. There is no airspace consolidation or pleural effusion. Bibasilar scarring is noted. There are scattered calcified granulomas. Mild intralobular septal thickening is observed. There is a small hiatal hernia. A 1.5 cm lipoma is noted at the gastroesophageal junction. Liver: The unenhanced liver is enlarged, measuring 21.8 cm in length. There is heterogeneous in attenuation, and mild nodularity of the hepatic surface contour suggests early change of cirrhosis. There is mild central intrahepatic biliary ductal dilatation. A 1.9 cm cyst is noted in the right lobe. Periportal edema is suggested. Gallbladder: Surgically absent noting clips in the gallbladder fossa. Spleen: The spleen is mild enlarged, measuring 14.5 cm in length. Pancreas: Unenhanced pancreas is mildly atrophic. There are least 2 ovoid cystic pancreatic lesions which measure up to 1.5 cm. 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 Adrenal glands: Unremarkable. Kidneys: The unenhanced kidneys are atrophic and without hydronephrosis. Husam ateral renal cysts measure up to 3 cm. Additional subcentimeter cortical hypodensities also likely represent cysts but are too small for definitive characterization. Renovascular calcifications are noted. There are no renal calculi identified. Abdominal vasculature: The abdominal aorta is normal in course and caliber noting advanced atherosclerotic calcification. Bowel: Large duodenal diverticula are noted. There are mildly distended and fluid-filled loops of small bowel in the left upper quadrant which measure up to 3 cm in diameter. There is minimal interloop fluid. No obstruction is seen and a transition point is identified. No associated wall thickening is identified. There is no pneumatosis intestinalis or portal venous gas. There is moderate to advanced colonic diverticulosis without CT evidence of acute diverticulitis. The appendix is normal as imaged. Peritoneum: There is trace perihepatic ascites. No intraperitoneal free air is seen. Lymphadenopathy: None. Pelvic viscera: The prostate gland is mildly enlarged and heterogeneous. Although decompressed, the bladder wall appears thickened and there is pericystic inflammation. Skeletal structures: The skeletal structures are osteopenic. Moderate lumbosacral spondylosis is observed. No lytic or blastic lesions are seen. IMPRESSION: 1. Suboptimal examination without oral and IV contrast. 2. There are mildly distended and fluid-filled loops of small bowel in the left upper quadrant with trace interloop fluid. There is no evidence of transition point or bowel obstruction. There is no discernible wall thickening, pneumatosis intestinalis, or portal venous gas. Correlate clinically for evidence of a nonspecific enteritis. 3. Although the bladder is decompressed there is pericystic inflammation. Correlation with clinical findings and urinalysis will be required. 4. The liver enlarged and heterogeneous. Early changes of cirrhosis are suspected. 5. Trace perihepatic ascites and splenomegaly suggest portal hypertension. 6. Cardiomegaly. There is mild intralobular septal thickening seen at the lung bases. This could represent mild acute versus chronic congestive change. Clinical correlation will be required. 7. Moderate to advanced colonic diverticulosis without CT evidence of acute diverticulitis. 8. Additional findings as above. Code Status & VTE Plan VTE Prophylaxis Plan VTE Prophylaxis will be ordered: Yes PG Care Time/CCT Total # of Minutes Spent Total Time Spent with Patient: Total time spent is greater than 50% in coordination of care (as documented) at patient's floor/unit and/or counseling patient: (1) Anemia Anemia type: unspecified type Qualified Code(s): D64.9 - Anemia, unspecified (2) Abdominal pain Abdominal location: right upper quadrant Qualified Code(s): R10.11 - Right upper quadrant pain (3) CAD (coronary artery disease) Coronary Disease-Associated Artery/Lesion type: campo artery [place] vs. transplanted heart: campo heart Associated angina: without angina Qualified Code(s): I25.10 - Atherosclerotic heart disease of campo coronary artery without angina pectoris (4) BPH (benign prostatic hyperplasia) Lower urinary tract symptom presence: unspecified whether lower urinary tract symptoms present Qualified Code(s): N40.0 - Benign prostatic hyperplasia without lower urinary tract symptoms (5) Hypothyroidism Hypothyroidism type: acquired Qualified Code(s): E03.9 - Hypothyroidism, unspecified (6) Hypertension Hypertension type: essential hypertension Qualified Code(s): I10 - Essential (primary) hypertension (7) COPD (chronic obstructive pulmonary disease) COPD type: unspecified COPD Qualified Code(s): J44.9 - Chronic obstructive pulmonary disease, unspecified
[2019-04-25] MEDS ORDERED: GLUCOSE 40% GEL 15 GM TUBE PO PRN (12:30)
[2019-04-25] MEDS ORDERED: CARBOHYDRATES FOR HYPOGLYCEMIA PO PRN (12:30)
[2019-04-25] MEDS ORDERED: [UNRECOGNIZED DRUG - OTHER] PO SCH (12:30)
[2019-04-25] MEDS ORDERED: DEXTROSE 50% 50 ML SYRINGE IV PRN (12:30)
[2019-04-25] MEDS ORDERED: GLUCAGON FOR INJ 1 MG VIAL SQ PRN (12:30)
[2019-04-25] MEDS ORDERED: GLUCOSE 10 TABS/TUBE PO PRN (12:30)
[2019-04-25] MEDS: DOXAZOSIN MESYLATE 1 MG TAB PO SCH (13:07)
[2019-04-25] MEDS: PANTOprazole 40 MG TAB PO SCH ×2 (13:07→20:35)
[2019-04-25] MEDS: LABETALOL HCL 200 MG TAB PO SCH ×2 (13:07→20:35)
[2019-04-25] MEDS: LISINOPRIL 40 MG TAB PO SCH (13:08)
[2019-04-25] MEDS: NEPHROCAPS PO SCH (13:08)
[2019-04-25] MEDS: FUROSEMIDE 40 MG TAB PO SCH ×2 (13:08→18:34)
--- NOTE | 2019-04-25 14:14 | Nephrology Consultation ---
Date of Consultation April 25, 2019 Assessment & Plan (1) ESRD (end stage renal disease): MWF. Outpatient Rx: 200 optiflix, 4 hrs, Qb 400 / Qd 800, 14 g needles. Patient only completed 1 out of 4 hours of scheduled hemodialysis today. Treatment was stopped and patient transferred to the ER due to severe abdominal pain. After he was admitted to [facility], I called and spoke with the nurse caring for Augie at [facility]. Augie left the dialysis unit 1.7 kilograms above his estimated dry weight. Thankfully electrolytes are appropriate and he appears relatively euvolemic. He does not have any pulmonary symptoms necessitating additional dialysis at this time. Would maintain a strict renal diet with fluid restriction. We do not have the ability to provide dialysis services for Mr. Mcintyre at [facility] over the weekend. If his condition were to change warranting emergent dialysis, he will need to be transferred to another facility. (2) Anemia: During his outpatient dialysis treatment today patient received received Micera 200 u as well as 100 milligrams of IV iron. He is known chronic anemia with iron deficiency and recurrent upper GI bleeding. Close monitoring is being provided. the patient is typed and screened. PRBC transfusion support as needed with caution given his ESRD. (3) Gastric AV malformation: History of Present Illness Reason for Consultation: ESRD Requesting Physician: Surinder Siddiqui MD Attending Physician: Surinder Siddiqui MD History of Present Illness Mr. Mcintyre is a 78 year old white male who is seen at the request of Dr. Pearson for consultation regarding ESRD on hemodialysis. Mr. Mcintyre has ESRD due to diabetic nephropathy. He has been on IHD since 12/16 ([facility] TTS 4hr 2K 2.5Ca F-200NR EDW 97.5 kg, heparin free dialysis - primary Nephr ologist Dr. Briceno). His medical history is significant for HTN, AODM, vascular dementia, IgG monoclonal gammopathy, EFREN, BPH, hypothyroidism, and CHF w/ diastolic dysfunction. Mr. Mcintyre was last hospitalized 02/16 - 02/18/19 and 03/19 - 03/20/19 for evaluation of melena. He underwent EGD which revealed vascular ectasis of the gastric antrum. Cauterization was provided. Mr. Mcintyre readmitted with upper GI bleed with acute blood loss anemia requiring PRBC transfusion support earlier this month. Today, during HD he developed severe abdominal pain. He describes mild symptoms prior to starting treatment. No intradialytic hypotension or other complications with dialysis noted. Don denies any recent melena or hematochezia. Symptoms have improved but abdominal discomfort persists. Abdominal CT reviewed. He was admitted for additional monitoring and evaluation. Allergies Allergy/AdvReac Type Severity Reaction Status Date / Time tramadol AdvReac Severe disorented Verified 04/25/19 07:57 ,falling down metformin AdvReac Intermediate CONFUSION Verified 04/25/19 07:57 Home Medications Home Medications Medication Instructions Recorded Confirmed Type amlodipine 10 mg tablet 10 mg PO HS #90 tab 11/12/18 04/25/19 Rx tamsulosin 0.4 mg PO HS #90 cap 01/02/19 04/25/19 Rx docusate sodium 100 mg capsule 200 mg PO QAM #30 cap 01/19/19 04/25/19 Rx gabapentin 100 mg capsule 200 mg PO HS #60 cap 02/04/19 04/25/19 Rx Renal Caps 1 mg PO QDL 02/15/19 04/25/19 History levothyroxine 200 mcg PO QAM 02/15/19 04/25/19 History lisinopril 40 mg tablet 40 mg PO DAILY@1200 #90 tab 02/26/19 04/25/19 Rx Auryxia 420 mg PO TIDM 03/18/19 04/25/19 History Boost Glucose Control 1 ea PO TIDM 03/18/19 04/25/19 History insulin detemir U-100 100) 100 15 units SUBCUT HS ml 03/25/19 04/25/19 History unit/mL subcutaneous solution doxazosin [Cardura] 1 mg PO QDL 04/07/19 04/25/19 History furosemide 120 mg PO AMPM 04/07/19 04/25/19 History insulin aspart U-100 [Novolog 0 unit SUBCUT ACHS 04/07/19 04/25/19 History U-100 Insulin aspart] rosuvastatin 20 mg PO HS 04/07/19 04/25/19 History levothyroxine 75 mcg PO DAILY 04/24/19 04/25/19 History hydralazine 25 mg PO TIDM 04/25/19 04/25/19 History labetalol 400 mg PO AMPM 04/25/19 04/25/19 History pantoprazole 40 mg PO AMPM 04/25/19 04/25/19 History Patient History Medical History (Updated 04/25/19 @ 12:22 by Surinder Siddiqui MD) Anemia (Acute) Anxiety Arthritis Asthma AVF (arteriovenous fistula) left arm BPH (benign prostatic hyperplasia) CAD (coronary artery disease) Chronic diastolic congestive heart failure Chronic kidney disease, stage IV (severe) dialysis - [facility], sat at [place] follow with dr herrera Colon, diverticulosis 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, with long-term current use of insulin COPD (chronic obstructive pulmonary disease) Depression Diabetic peripheral neuropathy Gastric AV malformation GERD (gastroesophageal reflux disease) Hearing difficulty Hyperlipidemia LDL goal <70 Hypertension Hypothyroidism Memory loss Mitral regurgitation Obstructive sleep apnea uses oxygen 2 l nc at Pulmonary hypertension Secondary hyperparathyroidism of renal origin Uncontrolled daytime somnolence sleeps thru day and cant sleep at [facility] Surgical History H/O cardiac catheterization many years ago - over 10 years no stents follow with trung H/O esophagogastroduodenoscopy 02/16/19 and 03/2019 [facility]- Dr. Mando White. 50mg propofol, no issues. H/O hemorrhoidectomy Hx of cholecystectomy Family History Unknown Myocardial infarction Diabetes Mother Diabetes Gallbladder disease Hypertension Breast cancer late 70s Father Diabetes Hypertension Brother Diabetes Hypertension Kidney disease Social History Preferred Language: Estonian Communication Ability: Effective Visual Impairment: No Limitations Hearing Ability: Hard of Hearing Machine Operators Required: No Beliefs That Will Affect Care: None marital status: Current Living Situation: Spouse current occupational status: disabled current occupation: works part-time at [employer] Feels Safe at Home: Yes Smoking Status: Former smoker Tobacco Type: cigarettes ; Second Hand Exposure: No ; Hx Alcohol Use: No Hx Substance Use: No Childhood Exposure to Second-Hand Smoke: No Other Diet Comment: regular caffeine: Yes during the past year weight has: remained stable Dental Care, Regularly: Yes Physical Activity Frequency: Does not Exercise Physical Activity Frequency Comment: limited due physical condition Seatbelt Use: sometimes Sunscreen Use: No Review of Systems Review of Systems: All systems reviewed & are unremarkable except as noted in HPI & below Physical Exam Constitutional: well developed; no acute distress Eyes: no scleral abnormality and no corneal abnormality ENMT: Mouth: no oral mucosal abnormality and oral mucous membranes not dry Neck: normal visual inspection and trachea midline Respiratory: normal respiratory effort Auscultation: lungs clear to auscultation bilaterally Cardiovascular: Rate/Rhythm: regular rate Heart Sounds: normal S1 and normal S2 Extremities: no edema Musculoskeletal: Extremities: no cyanosis and no clubbing Skin: normal turgor; no lesions Neurologic: Motor/Sensory: no tremor and no asterixis Psychiatric: Orientation: alert and oriented x 3 Results & Data Vital Signs (Past 12 Hours) Vital Signs Temp Pulse Pulse Resp BP BP BP 04/25/19 11:00 56 L 18 128/54 L 04/25/19 09:35 62 18 165/65 H 04/25/19 08:07 04/25/19 07:38 36.4 C L 56 L 18 143/65 H Pulse Ox 04/25/19 11:00 93 04/25/19 09:35 93 04/25/19 08:07 93 04/25/19 07:38 93 Laboratory Results Laboratory Results - last 24 hr 04/25/19 04/25/19 04/25/19 08:00 08:03 08:03 WBC 4.31 L RBC 2.53 L Hgb 7.9 L Hct 24.2 L MCV 95.7 MCH 31.2 MCHC 32.6 RDW Std Deviation 63.4 H RDW Coeff of Jose C 18.0 H Plt Count 132 MPV 10.0 Immature Gran % (Auto) 0.0 Neut % (Auto) 79.3 Lymph % (Auto) 8.1 [place] % (Auto) 7.9 Eos % (Auto) 4.2 Baso % (Auto) 0.5 Immature Gran # (Auto) 0.00 Neut # (Auto) 3.42 Lymph # (Auto) 0.35 L [place] # (Auto) 0.34 Eos # (Auto) 0.18 Baso # (Auto) 0.02 Sodium 138 Potassium 3.5 Chloride 99 Carbon Dioxide 31 Anion Gap 8.0 BUN 65 H Creatinine 5.75 H* Est Cr Clr Drug Dosing 13.9 Est GFR ( Amer) 10.2 Est GFR (Non-Af Amer) 8.8 BUN/Creatinine Ratio 11.4 Glucose 124 H Lactate Calcium 9.0 Total Bilirubin 0.5 AST 20 ALT 23 Alkaline Phosphatase 113 Troponin I 0.065 H* Total Protein 6.1 L Albumin 3.0 L Globulin 3.1 Albumin/Globulin Ratio 1.0 Lipase 240 Blood Type Antibody Screen Crossmatch 04/25/19 04/25/19 08:03 08:03 WBC RBC Hgb Hct MCV MCH MCHC RDW Std Deviation RDW Coeff of Jose C Plt Count MPV Immature Gran % (Auto) Neut % (Auto) Lymph % (Auto) [place] % (Auto) Eos % (Auto) Baso % (Auto) Immature Gran # (Auto) Neut # (Auto) Lymph # (Auto) [place] # (Auto) Eos # (Auto) Baso # (Auto) Sodium Potassium Chloride Carbon Dioxide Anion Gap BUN Creatinine Est Cr Clr Drug Dosing Est GFR ( Amer) Est GFR (Non-Af Amer) BUN/Creatinine Ratio Glucose Lactate 0.6 Calcium Total Bilirubin AST ALT Alkaline Phosphatase Troponin I Total Protein Albumin Globulin Albumin/Globulin Ratio Lipase Blood Type B Positive Antibody Screen NEGATIVE Crossmatch See Detail PG Care Time/CCT Total # of Minutes Spent Total Time Spent with Patient: Total time spent is greater than 50% in coordination of care (as documented) at patient's floor/unit and/or counseling patient: (1) Anemia Anemia type: unspecified type Qualified Code(s): D64.9 - Anemia, unspecified
--- NOTE | 2019-04-25 17:09 | Gastrointestinal Consultation ---
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 If patient still inpt could do EGD saturday abd pain--etiology unclear---CT with fluid filled loops SB LUQ unclear significance, no evidence of ischemic bowel on CT (nl lactate, CO2 and WBC also)--no abd pain at present chronic blood loss anemia--transfuse prn cirrhosis on CT--have not noticed this mentioned before--? from [facility] pancreas cysts--? IPMNs--can be followed as outpt. History of Present Illness Reason for Consultation: abd pain, GI bleeding Requesting Physician: Surinder Siddiqui MD Attending Physician: Surinder Siddiqui MD History of Present Illness CC abd pain HPI Daughter with patient for H and P. Pt known to our service. 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 Hx of of colon polyps with most recent colonoscopy noted 08/2018 at [facility] had 5 tubular adenomas in TC and AC removed. She had EGD/SB enteroscopy ( to mid jejunum) at [facility] 08/2018 show ing esophageal lipoma, multiple gastric polyps and gastric erythema path neg and duodenal diverticulum. EGD by Dr White 02/15/19 showing bleeding duodenal AVMS which were cauterized. EGD 03/06/19 AVMS with fresh heme noted cauterized with APC. EGD 03/19/19 multiple AVMs in stomach with oozing blood APC. Plan per patient was repeat EGD this week by DR White. Per daughter patient getting blood transfusions about every 2 weeks. He is on dialysis. Pt notes black tarry stools. Today presented to ER with diffuse abd pain up to 03/12, heme pos black stools in ER. CT a/p cardiomegaly, small HH, GE lipomas, cirrhosis, splenemegaly, 2 cm pancreas cyst, duodenal diverticulum, distended and fluid filled loops SB in LUQ, colon diverticulosis without evidence of diverticulitis Allergies Allergy/AdvReac Type Severity Reaction Status Date / Time tramadol AdvReac Severe disorented Verified 04/25/19 07:57 ,falling down metformin AdvReac Intermediate CONFUSION Verified 04/25/19 07:57 Home Medications Home Medications Medication Instructions Recorded Confirmed Type amlodipine 10 mg tablet 10 mg PO HS #90 tab 11/12/18 04/25/19 Rx tamsulosin 0.4 mg PO HS #90 cap 01/02/19 04/25/19 Rx docusate sodium 100 mg capsule 200 mg PO QAM #30 cap 01/19/19 04/25/19 Rx gabapentin 100 mg capsule 200 mg PO HS #60 cap 02/04/19 04/25/19 Rx Renal Caps 1 mg PO QDL 02/15/19 04/25/19 History levothyroxine 200 mcg PO QAM 02/15/19 04/25/19 History lisinopril 40 mg tablet 40 mg PO DAILY@1200 #90 tab 02/26/19 04/25/19 Rx Auryxia 420 mg PO TIDM 03/18/19 04/25/19 History Boost Glucose Control 1 ea PO TIDM 03/18/19 04/25/19 History insulin detemir U-100 100) 100 15 units SUBCUT HS ml 03/25/19 04/25/19 History unit/mL subcutaneous solution doxazosin [Cardura] 1 mg PO QDL 04/07/19 04/25/19 History furosemide 120 mg PO AMPM 04/07/19 04/25/19 History insulin aspart U-100 [Novolog 0 unit SUBCUT ACHS 04/07/19 04/25/19 History U-100 Insulin aspart] rosuvastatin 20 mg PO HS 04/07/19 04/25/19 History levothyroxine 75 mcg PO DAILY 04/24/19 04/25/19 History hydralazine 25 mg PO TIDM 04/25/19 04/25/19 History labetalol 400 mg PO AMPM 04/25/19 04/25/19 History pantoprazole 40 mg PO AMPM 04/25/19 04/25/19 History Patient History Medical History Anemia (Acute) Anxiety Arthritis Asthma AVF (arteriovenous fistula) left arm BPH (benign prostatic hyperplasia) CAD (coronary artery disease) Chronic diastolic congestive heart failure Chronic kidney disease, stage IV (severe) dialysis - [facility], sat at [facility] follow with dr herrera Colon, diverticulosis 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, with long-term current use of insulin COPD (chronic obstructive pulmonary disease) Depression Diabetic peripheral neuropathy Gastric AV malformation GERD (gastroesophageal reflux disease) Hearing difficulty Hyperlipidemia LDL goal <70 Hypertension Hypothyroidism Memory loss Mitral regurgitation Obstructive sleep apnea uses oxygen 2 l nc at hs Pulmonary hypertension Secondary hyperparathyroidism of renal origin Uncontrolled daytime somnolence sleeps thru day and cant sleep at [facility] Surgical History H/O cardiac catheterization many years ago - over 10 years no stents follow with trung H/O esophagogastroduodenoscopy 02/16/19 and 03/2019 [facility]- Dr. Manod Wihte. 50mg propofol, no issues. 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 Beliefs That Will Affect Care: None marital status: Current Living Situation: Spouse current occupational status: disabled current occupation: works part-time at [employer] Feels Safe at Home: Yes Smoking Status: Former smoker Tobacco Type: cigarettes ; Second Hand Exposure: No ; Hx Alcohol Use: No Hx Substance Use: No Childhood Exposure to Second-Hand Smoke: No Other Diet Comment: regular caffeine: Yes during the past year weight has: remained stable Dental Care, Regularly: Yes Physical Activity Frequency: Does not Exercise Physical Activity Frequency Comment: limited due physical condition Seatbelt Use: sometimes Sunscreen Use: No Review of Systems Review of Systems: All systems reviewed & are unremarkable except as noted in HPI & below Results & Data Vital Signs (Past 12 Hours) Vital Signs Temp Pulse Pulse Resp BP BP BP 04/25/19 15:39 36.2 C L 55 L 18 164/71 H 04/25/19 12:30 96 H 04/25/19 12:12 96 H 20 04/25/19 11:00 56 L 18 128/54 L 04/25/19 09:35 62 18 165/65 H 04/25/19 08:07 04/25/19 07:38 36.4 C L 56 L 18 143/65 H Pulse Ox 04/25/19 15:39 90 04/25/19 12:30 04/25/19 12:12 04/25/19 11:00 93 04/25/19 09:35 93 04/25/19 08:07 93 04/25/19 07:38 93 (1) GI bleed GI bleed type/associated pathology: unspecified gastrointestinal hemorrhage type Qualified Code(s): K92.2 - Gastrointestinal hemorrhage, unspecified
[2019-04-25 19:52] LABS: Basophils # (auto) 0.01 K/uL (0-0.2); Basophils % (auto) 0.3 %; Eosinophils # (auto) 0.15 K/uL (0-0.5); Eosinophils % (auto) 5.1 %; Hematocrit (blood only) 24.6 % (42-52); Hemoglobin 7.7 g/dL (14.0-18.0); Lymphocytes # (auto) 0.62 K/uL (1.2-3.4); Lymphocytes % (auto) 20.9 %; Mean Corpuscular Hgb Conc 31.3 g/dL (32-36); Mean Corpuscular Volume 95.7 fL (80-100); Mean Platelet Volume 10.3 fL (7.4-10.4); Monocytes # (auto) 0.43 K/uL (0.11-0.59); Monocytes % (auto) 14.5 %; Neutrophils # (auto) 1.76 K/uL (1.4-6.5); Neutrophils % (auto) 59.2 %; Platelet Count 116 K/uL (130-400); RDW Coefficient of Variation 17.8 % (11.5-14.5); RDW Standard Deviation 62.7 fL (36.4-46.3); Red Blood Count 2.57 M/uL (4.7-6.1); White Blood Count 2.97 K/uL (4.8-10.8)
[2019-04-25 20:20] LABS: INR 1.2 (0.9-1.1); Partial Thromboplastin Ratio 1.1; Partial Thromboplastin Time 29.3 Seconds (21.0-31.0); Prothrombin Time 11.7 Seconds (9.0-12.0)
[2019-04-25 20:22] LABS: RBC Morphology Unremarkable
[2019-04-25] MEDS: GABAPENTIN 100 MG CAP PO SCH (20:35)
[2019-04-25] MEDS: TAMSULOSIN HCL 0.4 MG CAP PO SCH (20:35)
[2019-04-25] MEDS: ROSUVASTATIN CALCIUM 20 MG TAB PO SCH (20:35)
[2019-04-25] MEDS: AMLODIPINE BESYLATE 5 MG TAB PO SCH (20:36)
[2019-04-26] MEDS: LEVOTHYROXINE SODIUM 200 MCG TABLET PO SCH (05:58)
[2019-04-26] MEDS: LEVOTHYROXINE SODIUM 75 MCG TABLET PO SCH (05:58)
[2019-04-26 07:23] LABS: Basophils # (auto) 0.02 K/uL (0-0.2); Basophils % (auto) 0.7 %; Eosinophils # (auto) 0.19 K/uL (0-0.5); Eosinophils % (auto) 6.7 %; Hematocrit (blood only) 23.7 % (42-52); Hemoglobin 7.5 g/dL (14.0-18.0); Lymphocytes # (auto) 0.54 K/uL (1.2-3.4); Lymphocytes % (auto) 19.1 %; Mean Corpuscular Hemoglobin 30.6 pg (25-34); Mean Corpuscular Hgb Conc 31.6 g/dL (32-36); Mean Corpuscular Volume 96.7 fL (80-100); Mean Platelet Volume 10.8 fL (7.4-10.4); Monocytes % (auto) 10.6 %; Neutrophils # (auto) 1.77 K/uL (1.4-6.5); Neutrophils % (auto) 62.9 %; Platelet Count 122 K/uL (130-400); RDW Standard Deviation 63.6 fL (36.4-46.3); Red Blood Count 2.45 M/uL (4.7-6.1); White Blood Count 2.82 K/uL (4.8-10.8)
[2019-04-26 07:58] LABS: RBC Morphology Unremarkable
[2019-04-26 08:01] LABS: BUN Creatinine Ratio 10.3 (10-20); Calcium 9.1 mg/dl (8.5-10.1); Est GFR (African American) 7.3; Est GFR (Non-African American) 6.3; Potassium 3.5 mmol/L (3.5-5.1)
[2019-04-26] MEDS: INSULIN ASPART 100 UNITS/ML 3 ML PEN SC SCH ×4 (08:23→20:57)
[2019-04-26] MEDS: DOCUSATE SODIUM 100 MG CAP PO SCH (08:24)
[2019-04-26] MEDS: PANTOprazole 40 MG TAB PO SCH ×2 (08:24→20:57)
[2019-04-26] MEDS: LABETALOL HCL 200 MG TAB PO SCH ×2 (08:25→20:55)
[2019-04-26] MEDS: FUROSEMIDE 40 MG TAB PO SCH ×2 (08:25→17:28)
--- NOTE | 2019-04-26 10:43 | Hospitalist Progress Note ---
Date of Service April 26, 2019 Assessment & Plan (1) Abdominal pain: - CT showed fluid filled loops, possible enteritis. - Abd pain is now improved, will continue to monitor. - GI consulted, may consider EGD on Saturday. (2) Anemia: - In setting of possible GAVE; has required outpatient transfusion support, most recently on Saturday. - Received Micera 200 units along with IV Iron 100 mg during HD this weekend. - Continue to monitor H/H -- is stable ~7.5 currently, monitor daily. Hold transfusion support today. (3) Gastric AV malformation: - Monitored, see above. (4) Heme positive stool: - May be related to acute bleeding vs. iron supplementation. - Did have black tarry stool this morning. - Holding PO ferrous sulfate -- received IV iron on Saturday during HD. (5) ESRD (end stage renal disease): - Receives HD qTuesThSat -- most recent session on Saturday but only tolerated ~1 hour due to abd pain. - Nephrology following, appreciate input. - Weight is currently stable; Creatinine trending up but electrolytes are WNL. - Monitor labs closely -- would require transfer to tertiary care center if he requires HD today. - Continue Lasix 120 mg PO BID. (6) Chronic diastolic congestive heart failure: - Most recent echo in Apr 2018 showed EF 65-70%, severe LVH, dilated RV, mild to mod mitral regurg and grade II diastolic dysfunction. - Currently appears well compensated following HD session yesterday. - Monitor daily weights and I/Os. - Continue Lasix 120 mg PO BID, Labetalol 400 mg BID, Lisinopril 40 mg PO daily as prescribed. (7) Diabetes: - A1C was 6.5 in Feb 2019. - SSI; BG has been well controlled. (8) Depression: - Not currently on meds. (9) Hearing difficulty: - Noted. (10) CAD (coronary artery disease): - Currently denies cardiac symptoms. - Continue home med, including beta amberly & statin. (11) BPH (benign prostatic hyperplasia): - Continue home Flomax as prescribed. - No evidence of urinary retention. (12) Hypothyroidism: - Continue Synthroid 275 mcg daily. - TSH was 17.6 this month. (13) Hypertension: - Continue home Lisinopril 40 mg daily, Hydralazine 25 mg TID, Labetalol 400 mg BID, Norvasc 10 mg qhs. - BP has been well controlled. (14) Asthma: - No acute exacerbation noted. (15) Secondary hyperparathyroidism of renal origin: - Monitored as outpatient. (16) COPD (chronic obstructive pulmonary disease): - No acute exacerbation noted. (17) Cirrhosis: - CT A/P showed changes c/w early cirrhosis, may be related to CELAYA. - GI following, appreciate input. (18) Colon, diverticulosis: - Noted on CT scan. (19) DVT prophylaxis: - SCDs; holding pharmacologic ppx for possible EGD on 04/27. Dispo: PCU tele for treatment of acute renal failure and GI bleed. Subjective Pt. had a BM at 2 am this morning, was described as black and tarry. Denies fatigue, chest pain, SOB, loss of appetite. Does have some urinary output. Nephro following, appreciate input. Review of Systems Review of Systems: All systems reviewed & are unremarkable except as noted in HPI & below Constitutional: no fever, no chills, no fatigue, no weakness and no anorexia Respiratory: no cough, no dyspnea, no dyspnea on exertion and no wheezing Cardiovascular: no chest pain, no palpitations and no edema Gastrointestinal: + melena; no abdominal pain, no nausea, no vomiting and no constipation Genitourinary: + decreased urination; no difficulty urinating Musculoskeletal: no back pain and no joint pain Integumentary: no non-healing lesions Physical Exam Physical Exam: General: Resting comfortably, no acute distress. HEENT: NC/AT; PERRLA with EOMI; [place] conjunctiva, MMM. No erythema of posterior pharynx Neck: Supple and nontender Cardiac: systolic murmur, +3/6. RRR. Lungs: CTA bilaterally Abdomen: Bowel normoactive X 4; Nontender to palpation Extremities: Warm. No edema present Neuro: No focal weakness Skin: No rash Results & Data Vital Signs (Past 12 Hours) Vital Signs Temp Pulse Resp BP Pulse Ox 04/26/19 07:15 36.7 C 51 L 18 137/53 L 91 04/26/19 03:01 36.4 C L 52 L 17 135/55 L 91 04/25/19 23:14 36.6 C 50 L 19 148/52 H 94 Laboratory Results 04/26/19 04/26/19 04/26/19 Range/Units 08:22 06:51 06:51 WBC 2.82 L (4.8-10.8) K/uL RBC 2.45 L (4.7-6.1) M/uL Hgb 7.5 L (14.0-18.0) g/dL Hct 23.7 L (42-52) % MCV 96.7 (80-100) fL MCH 30.6 (25-34) pg MCHC 31.6 L (32-36) g/dL RDW Std Deviation 63.6 H (36.4-46.3) fL RDW Coeff of Jose C 18.0 H (11.5-14.5) % Plt Count 122 L (130-400) K/uL MPV 10.8 H (7.4-10.4) fL Immature Gran % (Auto) 0.0 % Neut % (Auto) 62.9 % Lymph % (Auto) 19.1 % Luna % (Auto) 10.6 % Eos % (Auto) 6.7 % Baso % (Auto) 0.7 % Immature Gran # (Auto) 0.00 (0.00-0.02) K/uL Neut # (Auto) 1.77 (1.4-6.5) K/uL Lymph # (Auto) 0.54 L (1.2-3.4) K/uL Luna # (Auto) 0.30 (0.11-0.59) K/uL Eos # (Auto) 0.19 (0-0.5) K/uL Baso # (Auto) 0.02 (0-0.2) K/uL RBC Morphology Unremarkable PT (9.0-12.0) Seconds INR (0.9-1.1) APTT (21.0-31.0) Seconds PTT Ratio Sodium 139 (136-145) mmol/L Potassium 3.5 (3.5-5.1) mmol/L Chloride 100 (98-107) mmol/L Carbon Dioxide 29 (21-32) mmol/L Anion Gap 10.0 (3-11) BUN 78 H (7-18) mg/dl Creatinine 7.58 H* D (0.6-1.4) mg/dl Est Cr Clr Drug Dosing 10.0 ml/min Est GFR ( Amer) 7.3 Est GFR (Non-Af Amer) 6.3 BUN/Creatinine Ratio 10.3 (10-20) Glucose 132 H (70-99) mg/dl POC Glucose 191 H (70-99) Calcium 9.1 (8.5-10.1) mg/dl Blood Type Antibody Screen Crossmatch 04/26/19 04/25/19 04/25/19 Range/Units 00:27 19:21 19:21 WBC 2.97 L (4.8-10.8) K/uL RBC 2.57 L (4.7-6.1) M/uL Hgb 7.7 L (14.0-18.0) g/dL Hct 24.6 L (42-52) % MCV 95.7 (80-100) fL MCH 30.0 (25-34) pg MCHC 31.3 L (32-36) g/dL RDW Std Deviation 62.7 H (36.4-46.3) fL RDW Coeff of Jose C 17.8 H (11.5-14.5) % Plt Count 116 L (130-400) K/uL MPV 10.3 (7.4-10.4) fL Immature Gran % (Auto) 0.0 % Neut % (Auto) 59.2 % Lymph % (Auto) 20.9 % Luna % (Auto) 14.5 % Eos % (Auto) 5.1 % Baso % (Auto) 0.3 % Immature Gran # (Auto) 0.00 (0.00-0.02) K/uL Neut # (Auto) 1.76 (1.4-6.5) K/uL Lymph # (Auto) 0.62 L (1.2-3.4) K/uL Luna # (Auto) 0.43 (0.11-0.59) K/uL Eos # (Auto) 0.15 (0-0.5) K/uL Baso # (Auto) 0.01 (0-0.2) K/uL RBC Morphology Unremarkable PT 11.7 (9.0-12.0) Seconds INR 1.2 H (0.9-1.1) APTT 29.3 (21.0-31.0) Seconds PTT Ratio 1.1 Sodium (136-145) mmol/L Potassium (3.5-5.1) mmol/L Chloride (98-107) mmol/L Carbon Dioxide (21-32) mmol/L Anion Gap (3-11) BUN (7-18) mg/dl Creatinine (0.6-1.4) mg/dl Est Cr Clr Drug Dosing ml/min Est GFR ( Amer) Est GFR (Non-Af Amer) BUN/Creatinine Ratio (10-20) Glucose (70-99) mg/dl POC Glucose 140 H (70-99) Calcium (8.5-10.1) mg/dl Blood Type Antibody Screen Crossmatch 04/25/19 Range/Units 08:03 WBC (4.8-10.8) K/uL RBC (4.7-6.1) M/uL Hgb (14.0-18.0) g/dL Hct (42-52) % MCV (80-100) fL MCH (25-34) pg MCHC (32-36) g/dL RDW Std Deviation (36.4-46.3) fL RDW Coeff of Jose C (11.5-14.5) % Plt Count (130-400) K/uL MPV (7.4-10.4) fL Immature Gran % (Auto) % Neut % (Auto) % Lymph % (Auto) % [place] % (Auto) % Eos % (Auto) % Baso % (Auto) % Immature Gran # (Auto) (0.00-0.02) K/uL Neut # (Auto) (1.4-6.5) K/uL Lymph # (Auto) (1.2-3.4) K/uL Luna # (Auto) (0.11-0.59) K/uL Eos # (Auto) (0-0.5) K/uL Baso # (Auto) (0-0.2) K/uL RBC Morphology PT (9.0-12.0) Seconds INR (0.9-1.1) APTT (21.0-31.0) Seconds PTT Ratio Sodium (136-145) mmol/L Potassium (3.5-5.1) mmol/L Chloride (98-107) mmol/L Carbon Dioxide (21-32) mmol/L Anion Gap (3-11) BUN (7-18) mg/dl Creatinine (0.6-1.4) mg/dl Est Cr Clr Drug Dosing ml/min Est GFR ( Amer) Est GFR (Non-Af Amer) BUN/Creatinine Ratio (10-20) Glucose (70-99) mg/dl POC Glucose (70-99) Calcium (8.5-10.1) mg/dl Blood Type B Positive Antibody Screen NEGATIVE Crossmatch See Detail PG Care Time/CCT Total # of Minutes Spent Total Time Spent with Patient: Total time spent is greater than 50% in coordination of care (as documented) at patient's floor/unit and/or counseling patient: (1) Abdominal pain Abdominal location: right upper quadrant Qualified Code(s): R10.11 - Right upper quadrant pain (2) Anemia Anemia type: unspecified type Qualified Code(s): D64.9 - Anemia, unspecified (3) CAD (coronary artery disease) Coronary Disease-Associated Artery/Lesion type: [place] artery [place] vs. transplanted heart: [place] heart Associated angina: without angina Qualified Code(s): I25.10 - Atherosclerotic heart disease of [place] coronary artery without angina pectoris (4) BPH (benign prostatic hyperplasia) Lower urinary tract symptom presence: unspecified whether lower urinary tract symptoms present Qualified Code(s): N40.0 - Benign prostatic hyperplasia without lower urinary tract symptoms (5) Hypothyroidism Hypothyroidism type: acquired Qualified Code(s): E03.9 - Hypothyroidism, unspecified (6) Hypertension Hypertension type: essential hypertension Qualified Code(s): I10 - Essential (primary) hypertension (7) COPD (chronic obstructive pulmonary disease) COPD type: unspecified COPD Qualified Code(s): J44.9 - Chronic obstructive pulmonary disease, unspecified
[2019-04-26] MEDS: DOXAZOSIN MESYLATE 1 MG TAB PO SCH (12:00)
[2019-04-26] MEDS: NEPHROCAPS PO SCH (12:00)
--- NOTE | 2019-04-26 12:21 | Nephrology Progress Note ---
Date of Service April 26, 2019 Assessment & Plan (1) ESRD (end stage renal disease): MWF. Outpatient Rx: 200 optiflix, 4 hrs, Qb 400 / Qd 800, 14 g needles. Patient only completed 1 out of 4 hours of scheduled hemodialysis yesterday due to abd pain. Outpatient holiday schedule next week is MWS. Orders for HD tomorrow entered into EMR. Thankfully, there is no emergent indication for HD today. BP and volume status are acceptble. Electrolytes are normal. (2) Anemia: During his outpatient dialysis treatment yesterday, he received received Micera 200 u as well as 100 milligrams of IV iron. PRBC transfusion support can be provided with dialysis tomorrow PRN. (3) Gastric AV malformation: GI consult reviewd. Possible EGD tomorrow. Subjective No acute events overnight. Denies significant melena or hematochezia. Tolerating clear liquid diet. Denies any recurrent abdominal pain at this time. No nausea. Would like to advance diet. No chest pain, palpitations, or SOB. No syncope or presyncope. Review of Systems Review of Systems: All systems reviewed & are unremarkable except as noted in HPI & below Physical Exam Constitutional: well developed; no acute distress Eyes: no scleral abnormality and no corneal abnormality ENMT: Mouth: no oral mucosal abnormality and oral mucous membranes not dry Neck: normal visual inspection and trachea midline Respiratory: normal respiratory effort Auscultation: lungs clear to auscultation bilaterally Cardiovascular: Rate/Rhythm: regular rate Heart Sounds: normal S1 and normal S2 Extremities: + AV fistula; no edema Gastrointestinal (Abdomen): Percussion/Palpation: + abdomen tender (mild LUQ) and abdomen soft Musculoskeletal: Extremities: no cyanosis and no clubbing Skin: normal turgor; no lesions Neurologic: Motor/Sensory: no tremor and no asterixis Psychiatric: Orientation: alert and oriented x 3 Results & Data Vital Signs (Past 12 Hours) Vital Signs Temp Pulse Resp BP Pulse Ox 04/26/19 11:35 36.4 C L 48 L 18 142/63 H 93 04/26/19 07:15 36.7 C 51 L 18 137/53 L 91 04/26/19 03:01 36.4 C L 52 L 17 135/55 L 91 Laboratory Results Laboratory Results - last 24 hr 04/25/19 04/25/19 04/26/19 19:21 19:21 00:27 WBC 2.97 L RBC 2.57 L Hgb 7.7 L Hct 24.6 L MCV 95.7 MCH 30.0 MCHC 31.3 L RDW Std Deviation 62.7 H RDW Coeff of Jose C 17.8 H Plt Count 116 L MPV 10.3 Immature Gran % (Auto) 0.0 Neut % (Auto) 59.2 Lymph % (Auto) 20.9 [place] % (Auto) 14.5 Eos % (Auto) 5.1 Baso % (Auto) 0.3 Immature Gran # (Auto) 0.00 Neut # (Auto) 1.76 Lymph # (Auto) 0.62 L [place] # (Auto) 0.43 Eos # (Auto) 0.15 Baso # (Auto) 0.01 RBC Morphology Unremarkable PT 11.7 INR 1.2 H APTT 29.3 PTT Ratio 1.1 Sodium Potassium Chloride Carbon Dioxide Anion Gap BUN Creatinine Est Cr Clr Drug Dosing Est GFR ( Amer) Est GFR (Non-Af Amer) BUN/Creatinine Ratio Glucose POC Glucose 140 H Calcium 04/26/19 04/26/19 04/26/19 06:51 06:51 08:22 WBC 2.82 L RBC 2.45 L Hgb 7.5 L Hct 23.7 L MCV 96.7 MCH 30.6 MCHC 31.6 L RDW Std Deviation 63.6 H RDW Coeff of Jose C 18.0 H Plt Count 122 L MPV 10.8 H Immature Gran % (Auto) 0.0 Neut % (Auto) 62.9 Lymph % (Auto) 19.1 [place] % (Auto) 10.6 Eos % (Auto) 6.7 Baso % (Auto) 0.7 Immature Gran # (Auto) 0.00 Neut # (Auto) 1.77 Lymph # (Auto) 0.54 L [place] # (Auto) 0.30 Eos # (Auto) 0.19 Baso # (Auto) 0.02 RBC Morphology Unremarkable PT INR APTT PTT Ratio Sodium 139 Potassium 3.5 Chloride 100 Carbon Dioxide 29 Anion Gap 10.0 BUN 78 H Creatinine 7.58 H* D Est Cr Clr Drug Dosing 10.0 Est GFR ( Amer) 7.3 Est GFR (Non-Af Amer) 6.3 BUN/Creatinine Ratio 10.3 Glucose 132 H POC Glucose 191 H Calcium 9.1 04/26/19 11:23 WBC RBC Hgb Hct MCV MCH MCHC RDW Std Deviation RDW Coeff of Jose C Plt Count MPV Immature Gran % (Auto) Neut % (Auto) Lymph % (Auto) [place] % (Auto) Eos % (Auto) Baso % (Auto) Immature Gran # (Auto) Neut # (Auto) Lymph # (Auto) [place] # (Auto) Eos # (Auto) Baso # (Auto) RBC Morphology PT INR APTT PTT Ratio Sodium Potassium Chloride Carbon Dioxide Anion Gap BUN Creatinine Est Cr Clr Drug Dosing Est GFR ( Amer) Est GFR (Non-Af Amer) BUN/Creatinine Ratio Glucose POC Glucose 177 H Calcium PG Care Time/CCT Total # of Minutes Spent Total Time Spent with Patient: Total time spent is greater than 50% in coordination of care (as documented) at patient's floor/unit and/or counseling patient: (1) Anemia Anemia type: unspecified type Qualified Code(s): D64.9 - Anemia, unspecified
[2019-04-26] MEDS: LISINOPRIL 40 MG TAB PO SCH (13:29)
--- NOTE | 2019-04-26 17:28 | Gastroenterology Progress Note ---
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 EGD tomorrow with DR White. NPO except meds psost [place] abd pain--etiology unclear---CT with fluid filled loops SB LUQ unclear significance, no evidence of ischemic bowel on CT (nl lactate, CO2 and WBC also)--no abd pain at present, solid diet ordered for suppre. chronic blood loss anemia--transfuse prn cirrhosis on CT--noted on CT 10/2018--? from C[facility]AY[facility] pancreas cysts--? IPMNs--can be followed as outpt. I am going off service tomorrow 04/[address] White is assuming GI care then. Subjective CC black stools HPI States had 3 black stools today. No abd pain. Review of Systems Respiratory: no dyspnea Cardiovascular: no chest pain Physical Exam Constitutional: WD/WN, vitals as above Respiratory: normal respiratory effort, lungs clear to auscultation Cardiovascular: RRR, no murmur, no edema Gastrointestinal (Abdomen): normal bowel sounds, soft, nontender, no hepatosplenomegaly Neurologic: PERRL, EOMI, accommodation nl, no face palsy, no dysarthria Psychiatric: A+Ox3, euthymic affect Results & Data Vital Signs (Past 12 Hours) Vital Signs Temp Pulse Resp BP Pulse Ox 04/26/19 15:47 36.5 C 52 L 18 147/55 H 92 04/26/19 12:30 50 L 04/26/19 11:35 36.4 C L 48 L 18 142/63 H 93 04/26/19 07:15 36.7 C 51 L 18 137/53 L 91 (1) GI bleed GI bleed type/associated pathology: unspecified gastrointestinal hemorrhage type Qualified Code(s): K92.2 - Gastrointestinal hemorrhage, unspecified
[2019-04-26] MEDS: ROSUVASTATIN CALCIUM 20 MG TAB PO SCH (20:54)
[2019-04-26] MEDS: GABAPENTIN 100 MG CAP PO SCH (20:54)
[2019-04-26] MEDS: TAMSULOSIN HCL 0.4 MG CAP PO SCH (20:55)
[2019-04-26] MEDS: AMLODIPINE BESYLATE 5 MG TAB PO SCH (20:56)
[2019-04-27] MEDS: LEVOTHYROXINE SODIUM 75 MCG TABLET PO SCH (05:33)
[2019-04-27] MEDS: LEVOTHYROXINE SODIUM 200 MCG TABLET PO SCH (05:33)
[2019-04-27 05:57] LABS: Basophils # (auto) 0.01 K/uL (0-0.2); Basophils % (auto) 0.2 %; Eosinophils # (auto) 0.13 K/uL (0-0.5); Eosinophils % (auto) 2.9 %; Hemoglobin 8.2 g/dL (14.0-18.0); Lymphocytes # (auto) 0.45 K/uL (1.2-3.4); Lymphocytes % (auto) 10.2 %; Mean Corpuscular Hemoglobin 30.3 pg (25-34); Mean Corpuscular Volume 95.9 fL (80-100); Mean Platelet Volume 10.8 fL (7.4-10.4); Monocytes # (auto) 0.26 K/uL (0.11-0.59); Monocytes % (auto) 5.9 %; Neutrophils # (auto) 3.58 K/uL (1.4-6.5); Neutrophils % (auto) 80.8 %; Platelet Count 130 K/uL (130-400); RDW Coefficient of Variation 17.5 % (11.5-14.5); Red Blood Count 2.71 M/uL (4.7-6.1); White Blood Count 4.43 K/uL (4.8-10.8)
[2019-04-27 06:01] LABS: Mean Corpuscular Hgb Conc 31.5 g/dL (32-36)
[2019-04-27] MEDS ORDERED: POLYETHYLENE (MIRALAX) 17 GM PACK PO STA (06:10)
[2019-04-27 06:20] LABS: RBC Morphology Unremarkable
--- NOTE | 2019-04-27 06:37 | Progress Note ---
Date of Service April 27, 2019 Subjective RN called regarding sudden onset abdominal pain at 4am Pt evaluated appeared uncomfortable and retching some as well Exam: hypoactive bowel sounds, RLQ very TTP, no rebound, mild RuQ TTP, no papable inguinal hernia KUB ordered - concerning for significant stool burden CT abdomen ordered for concern of possible appendicitis - small fluid filled inguinal hernia, no free air, appendix not visualized, other findings consistent with previous CT CBC improved compared to prior and lactate normal, BMP with worsening BUN/Cr - scheduled for dialysis today Pt felt desire to have BM but no output Bowel regimen ordered Miralax 34g dose stat and daily marie dose 17gm. Pt is already on colace Results & Data Vital Signs (Past 12 Hours) Vital Signs Temp Pulse Resp BP Pulse Ox 04/27/19 04:30 56 L 22 172/84 H 94 04/26/19 23:00 36.5 C 54 L 18 165/63 H 91 04/26/19 19:32 36.7 C 45 L 18 136/43 L 96 PG Care Time/CCT Total # of Minutes Spent Total Time Spent with Patient: Total time spent is greater than 50% in coordination of care (as documented) at patient's floor/unit and/or counseling patient: Resident Activity Tracking Resident Involvement: Resident Care Provided Care Provided: Adult Hospital Medicine
[2019-04-27 06:39] LABS: BUN Creatinine Ratio 9.7 (10-20); Calcium 9.3 mg/dl (8.5-10.1); Creatinine Clr Calc Pharmacy 8.4 ml/min; Est GFR (African American) 5.9; Est GFR (Non-African American) 5.1; Potassium 3.5 mmol/L (3.5-5.1)
--- NOTE | 2019-04-27 06:41 | XRay Report ---
XR KUB/Abdomen 1 view CLINICAL HISTORY: 78 years-old Male presenting with severe abdominal pain. TECHNIQUE: Single supine view of the abdomen was obtained. COMPARISON: CT from 04/25/2019. FINDINGS: Cholecystectomy clips noted. Nonobstructive bowel gas pattern. No gross pneumoperitoneum. Allowing for bowel gas and stool, no calcifications to suggest nephrolithiasis. Extensive atheroscler otic calcification. Prominent splenic arterial and renovascular calcification. Degenerative changes of the spine. Lung bases clear. IMPRESSION: 1. No acute intra-abdominal pathology. Electronically signed by: Ward Stephens M.D. 04/27/2019 6:40 AM
[2019-04-27] MEDS ORDERED: SODIUM CHLORIDE 0.9% 1000ML 1,000 ML IV PRN (07:00)
--- NOTE | 2019-04-27 07:18 | CT Scan Report ---
CT OF THE ABDOMEN AND PELVIS WITHOUT CONTRAST CLINICAL HISTORY: Severe right lower quadrant abdominal pain. COMPARISON STUDY: CT of the abdomen and pelvis April 25, 2019. TECHNIQUE: Axial images of the abdomen and pelvis were obtained without IV contrast. Images were revi ewed in the axial, sagittal, and coronal planes. Automated exposure control was utilized for the john dy. A dose lowering technique was utilized adhering to the principles of ALARA. FINDINGS: The heart is moderately enlarged. Enlargement of the lateral segment is noted. The liver is likely cirrhotic. A right hepatic lobe hypodensity lesion is suboptimally assessed on this unenhance d exam but is unchanged. This measures water attenuation and favors a cyst. No pneumatosis, free air or portal venous gas is present. There is trace ascites. Unenhanced images of the spleen, adrenal gla nds are unremarkable. Several water attenuation pancreatic lesions are unchanged. These favor side br anch IPMNs. Mild biliary ductal dilatation is unchanged since CT of October 05, 2018 and is likely related to cholecystectomy. There is colonic diverticulosis without evidence for acute diverticulitis. The a ppendix is normal. There is no abscess. Bladder wall thickening is accentuated by underdistention. A small amount of fluid within a right internal hernia is present. A splenule is present. Extensive vas cular plaque is present. Water attenuation bilateral renal lesions are suboptimally assessed on this unenhanced exam but favor cysts. There is moderate to marked bilateral renal cortical thinning. There is no hydronephrosis. No suspicious osseous lesions are noted. IMPRESSION: 1. No bowel obstruction. Normal appendix. Colonic diverticulosis without evidence for acute diverticu litis. 2. Suspected cirrhosis. Trace ascites. 3. Bladder wall thickening which may be due to underdistention however could be correlated with urina lysis to exclude cystitis. Electronically signed by: Marcus Salazar M.D. 04/27/2019 7:16 AM
--- NOTE | 2019-04-27 08:50 | Anesthesiology Consultation ---
Date of Service April 27, 2019 Assessment & Plan (1) Encounter for pre-operative examination: Chart Review Chart Review: Acceptable Risk for Surgery Consults Requested none ASA ASA4 Proposed Anesthesia Anesthesia Type: MAC Risk / Benefits Reviewed With: PT / POA / Parent / Guardian, Accepts Plan and Informed Consent Obtained History Surgery Operation Date: 04/27/19 17:10 Proposed Procedures p Esophagogastroduodenoscopy Dr Christopher White Height/Weight Height: 6 ft Weight: 96.7 kg Allergies Allergy/AdvReac Type Severity Reaction Status Date / Time tramadol AdvReac Severe disorented Verified 04/25/19 07:57 ,falling down metformin AdvReac Intermediate CONFUSION Verified 04/25/19 07:57 Medications Home Medications Medication Instructions Recorded Confirmed Last Taken amlodipine 10 mg tablet 10 mg PO HS #90 tab 11/12/18 04/25/19 04/24/19 tamsulosin 0.4 mg PO HS #90 cap 01/02/19 04/25/19 04/24/19 docusate sodium 100 mg capsule 200 mg PO QAM #30 cap 01/19/19 04/25/19 04/25/19 gabapentin 100 mg capsule 200 mg PO HS #60 cap 02/04/19 04/25/19 04/24/19 Renal Caps 1 mg PO QDL 02/15/19 04/25/19 04/24/19 levothyroxine 200 mcg PO QAM 02/15/19 04/25/19 04/25/19 lisinopril 40 mg tablet 40 mg PO DAILY@1200 #90 tab 02/26/19 04/25/19 04/24/19 Auryxia 420 mg PO TIDM 03/18/19 04/25/19 04/25/19 Boost Glucose Control 1 ea PO TIDM 03/18/19 04/25/19 Unknown insulin detemir U-100 100) 100 15 units SUBCUT HS ml 03/25/19 04/25/19 04/24/19 unit/mL subcutaneous solution doxazosin [Cardura] 1 mg PO QDL 04/07/19 04/25/19 04/24/19 furosemide 120 mg PO AMPM 04/07/19 04/25/19 04/25/19 insulin aspart U-100 [Novolog 0 unit SUBCUT ACHS 11/10/1904/25/19 04/25/19 U-100 Insulin aspart] 3 units rosuvastatin 20 mg PO HS 04/07/19 04/25/19 04/24/19 levothyroxine 75 mcg PO DAILY 04/24/19 04/25/19 04/25/19 hydralazine 25 mg PO TIDM 04/25/19 04/25/19 04/25/19 labetalol 400 mg PO AMPM 04/25/19 04/25/19 04/25/19 pantoprazole 40 mg PO AMPM 04/25/19 04/25/19 04/25/19 Active Medications Generic Name Dose Route Start Last Admin Trade Name Freq PRN Reason Stop Dose Admin Amlodipine Besylate 10 mg 04/25/19 21:00 04/26/19 20:56 Norvasc PO 05/25/19 20:59 10 mg HS SHANTA Administration Docusate Sodium 200 mg 04/26/19 09:00 04/26/19 08:24 Colace PO 05/26/19 08:59 200 mg QAM SHANTA Administration Doxazosin Mesylate 1 mg 04/25/19 12:30 04/26/19 12:00 Cardura PO 05/25/19 12:29 1 mg QDL SHANTA Administration Furosemide 120 mg 04/25/19 12:30 04/26/19 17:28 Lasix PO 05/25/19 12:29 120 mg [id number] SHANTA Administration Gabapentin 200 mg 04/25/19 21:00 04/26/19 20:54 Neurontin PO 05/25/19 20:59 200 mg HS SHANTA Administration Hydralazine HCl 25 mg 04/25/19 12:30 04/26/19 17:27 Apresoline PO 05/25/19 12:29 25 mg TIDM SHANTA Administration Insulin Aspart 0 units 04/26/19 07:30 04/26/19 20:57 Novolog Flexpen SC 05/26/19 07:29 1 units ACHS SHANTA Administration Labetalol HCl 400 mg 04/25/19 12:30 04/26/19 20:55 Normodyne PO 05/25/19 12:29 400 mg BID SHANTA Administration Levothyroxine Sodium 75 mcg 04/26/19 06:30 04/27/19 05:33 Synthroid PO 05/26/19 06:29 75 mcg DAILYBB SHANTA Administration Levothyroxine Sodium 200 mcg 04/26/19 06:30 04/27/19 05:33 Synthroid PO 05/26/19 06:29 200 mcg DAILYBB SHANTA Administration Lisinopril 40 mg 04/25/19 12:30 04/26/19 13:29 Zestril PO 05/25/19 12:29 40 mg DAILY@1200 SHANTA Administration Miscellaneous 1 ea 04/25/19 16:00 04/26/19 17:26 Order Awaiting Action N/A 05/25/19 15:59 Not Given QS SHANTA Pantoprazole Sodium 40 mg 04/25/19 12:30 04/26/19 20:57 Protonix PO 05/25/19 12:29 40 mg BID SHANTA Administration Rosuvastatin Calcium 20 mg 04/25/19 21:00 04/26/19 20:54 Crestor PO 05/25/19 20:59 20 mg HS SHANTA Administration Tamsulosin HCl 0.4 mg 04/25/19 21:00 04/26/19 20:55 Flomax PO 05/25/19 20:59 0.4 mg HS SHANTA Administration Vitamin B Complex/Folic Acid 1 cap 04/25/19 12:30 04/26/19 12:00 Nephrocaps PO 05/25/19 12:29 1 cap QDL SHANTA Administration Past Medical History Medical History Anemia (Acute) Anxiety Arthritis Asthma AVF (arteriovenous fistula) left arm BPH (benign prostatic hyperplasia) CAD (coronary artery disease) Chronic diastolic congestive heart failure Chronic kidney disease, stage IV (severe) dialysis - [facility], sat at [facility] follow with dr herrera Colon, diverticulosis 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, with long-term current use of insulin COPD (chronic obstructive pulmonary disease) Depression Diabetic peripheral neuropathy Gastric AV malformation GERD (gastroesophageal reflux disease) Hearing difficulty Hyperlipidemia LDL goal <70 Hypertension Hypothyroidism Memory loss Mitral regurgitation Obstructive sleep apnea uses oxygen 2 l nc at hs Pulmonary hypertension Secondary hyperparathyroidism of renal origin Uncontrolled daytime somnolence sleeps thru day and cant sleep at nigh Exercise / Class Metabolic Activity III < 4 Walking/Shop/Light housework Past Family History Family History Unknown Myocardial infarction Diabetes Mother Diabetes Gallbladder disease Hypertension Breast cancer late 70s Father Diabetes Hypertension Brother Diabetes Hypertension Kidney disease Past Surgical History Surgical History H/O cardiac catheterization many years ago - over 10 years no stents follow with [facility] H/O esophagogastroduodenoscopy 02/16/19 and 03/2019 [facility]- Dr. Mando White. 50mg propofol, no issues. H/O hemorrhoidectomy Hx of cholecystectomy Past Anesthesia History No Hx of Anesthesia Complications and No Family Hx of Anesthesia Complications History of PONV No Hx of PONV and No Hx of Motion Sickness Social History Smoking Status: Former smoker tobacco type: cigarettes Do You Dip or Chew Tobacco: No Hx Alcohol Use: No Hx Substance Use: No substance use type: does not use Physical Exam Vital Signs Last Vital Signs Temp 97.9 F 04/27/19 11:00 Pulse 60 04/27/19 13:20 Resp 16 04/27/19 11:00 BP 180/71 H 04/27/19 13:20 Pulse Ox 99 04/27/19 11:00 ENMT Mouth: + edentulous Thyromental Distance: > or= 3.5 Finger Breadths Mallampati Class: II Neck normal visual inspection Respiratory normal respiratory effort Auscultation: lungs clear to auscultation bilaterally Cardiovascular Rate/Rhythm: regular rate and regular rhythm Testing Laboratory Results 04/27/19 05:41 04/27/19 05:41 PT 11.7 Seconds (9.0-12.0) 04/25/19 19:21 INR 1.2 (0.9-1.1) H 04/25/19 19:21 APTT 29.3 Seconds (21.0-31.0) 04/25/19 19:21 Blood Type B Positive 04/25/19 08:03 Antibody Screen NEGATIVE 04/25/19 08:03 04/27/19 07:30 POC Glucose 204 H Electrocardiogram Date: 04/25/19 Sinus bradycardia with 1st degree A-V block, rate 49 bpm Right bundle branch block T wave abnormality, consider inferolateral ischemia Abnormal ECG When compared with ECG of 07-APR-2019 14:34, QT has shortened Confirmed by Shawn Altamirano ([id number]) on 04/25/2019 2:01:48 PM
[2019-04-27] MEDS ORDERED: SODIUM CHLORIDE 0.9% 250 ML IV PRN (10:40)
--- NOTE | 2019-04-27 12:31 | Nephrology Progress Note ---
Date of Service April 27, 2019 Assessment & Plan (1) ESRD (end stage renal disease): Augie has end-stage renal disease secondary to hypertensive nephropathy, has been on dialysis Saturday, , Saturday at [place] dialysis unit. Admitted to the hospital on Saturday after he developed abdominal pain while on dialysis. Upon arrival he was found to have hemoglobin less than 7, received 2 units of blood transfusion. Hemoglobin slightly improved to 8.2 this morning. Has history of chronic GI bleeding and repeated hospital admission and ER visit for persistent GI bleeding and repeated low hemoglobin requiring repeated EGD, blood transfusion. At the dialysis unit he has been on maximum dose of NEMESIO and Venofer. --will do 4 hours dialysis today as he did not have much dialysis Saturday and the fact that dialysis scheduled change for this week to Saturday. Give 1 unit of blood transfusion during dialysis. --next dialysis either tomorrow or Saturday --patient will need definitive treatment for this ongoing issue of GI bleeding which has been ongoing for last at least 6 months with repeated it need for blood transfusion, ER visit, EGD and hospital admission. --dose medications for GFR less than 10 --continue Lasix 80 milligram p.o. b.i.d. Will follow (2) Anemia: . (3) Gastric AV malformation: GI consult reviewd. Possible EGD tomorrow. Subjective Augie Was seen and examined during dialysis. He was awake, alert, answering questions however extremely lethergic. Blood pressure has been relatively high. Electrolyte acceptable. Hemoglobin slightly improved to 8.2. Review of Systems Review of Systems: All systems reviewed & are unremarkable except as noted in HPI & below Physical Exam Constitutional: + ill appearing, + frail appearing and + lethargic; no acute distress Respiratory: normal respiratory effort, lungs clear to auscultation Cardiovascular: Rate/Rhythm: regular rate and regular rhythm Heart Sounds: normal S1 and normal S2 Extremities: + edema Skin: no rashes, warm and dry Neurologic: awake; + does not move all extremities and not confused Psychiatric: A+Ox3, euthymic affect Results & Data Vital Signs (Past 12 Hours) Vital Signs Temp Pulse Pulse Pulse Resp BP BP 04/27/19 12:00 61 182/83 H 04/27/19 11:40 60 189/88 H 04/27/19 11:20 61 185/84 H 04/27/19 11:00 36.6 C 65 16 178/81 H 04/27/19 10:40 57 L 174/82 H 04/27/19 10:20 56 L 170/79 H 04/27/19 10:00 56 L 172/78 H 04/27/19 09:40 58 L 171/85 H 04/27/19 09:15 36.6 C 58 L 04/27/19 07:54 36.4 C L 61 20 174/72 H 04/27/19 04:30 56 L 22 172/84 H Pulse Ox 04/27/19 12:00 04/27/19 11:40 04/27/19 11:20 04/27/19 11:00 99 04/27/19 10:40 04/27/19 10:20 04/27/19 10:00 04/27/19 09:40 04/27/19 09:15 04/27/19 07:54 95 04/27/19 04:30 94 PG Care Time/CCT Total # of Minutes Spent Total Time Spent with Patient: Total time spent is greater than 50% in coordination of care (as documented) at patient's floor/unit and/or counseling patient: (1) Anemia Anemia type: unspecified type Qualified Code(s): D64.9 - Anemia, unspecified
--- NOTE | 2019-04-27 14:08 | History & Physical Report ---
Date of Service April 27, 2019 History of Present Illness Chief Complaint: Anemia, melena Primary Care Provider: Mahsa Wang DO For EGD Allergies Allergy/AdvReac Type Severity Reaction Status Date / Time tramadol AdvReac Severe disorented Verified 04/25/19 07:57 ,falling down metformin AdvReac Intermediate CONFUSION Verified 04/25/19 07:57 Home Medications Home Medications Medication Instructions Recorded Confirmed Type amlodipine 10 mg tablet 10 mg PO HS #90 tab 11/12/18 04/25/19 Rx tamsulosin 0.4 mg PO HS #90 cap 01/02/19 04/25/19 Rx docusate sodium 100 mg capsule 200 mg PO QAM #30 cap 01/19/19 04/25/19 Rx gabapentin 100 mg capsule 200 mg PO HS #60 cap 02/04/19 04/25/19 Rx Renal Caps 1 mg PO QDL 02/15/19 04/25/19 History levothyroxine 200 mcg PO QAM 02/15/19 04/25/19 History lisinopril 40 mg tablet 40 mg PO DAILY@1200 #90 tab 02/26/19 04/25/19 Rx Auryxia 420 mg PO TIDM 03/18/19 04/25/19 History Boost Glucose Control 1 ea PO TIDM 03/18/19 04/25/19 History insulin detemir U-100 100) 100 15 units SUBCUT HS ml 03/25/19 04/25/19 History unit/mL subcutaneous solution doxazosin [Cardura] 1 mg PO QDL 04/07/19 04/25/19 History furosemide 120 mg PO AMPM 04/07/19 04/25/19 History insulin aspart U-100 [Novolog 0 unit SUBCUT ACHS 04/07/19 04/25/19 History U-100 Insulin aspart] rosuvastatin 20 mg PO HS 04/07/19 04/25/19 History levothyroxine 75 mcg PO DAILY 04/24/19 04/25/19 History hydralazine 25 mg PO TIDM 04/25/19 04/25/19 History labetalol 400 mg PO AMPM 04/25/19 04/25/19 History pantoprazole 40 mg PO AMPM 04/25/19 04/25/19 History Past Med/Surg History Medical History Anemia (Acute) Anxiety Arthritis Asthma AVF (arteriovenous fistula) left arm BPH (benign prostatic hyperplasia) CAD (coronary artery disease) Chronic diastolic congestive heart failure Chronic kidney disease, stage IV (severe) dialysis - [facility], sat at [place] follow with dr herrera Colon, diverticulosis 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, with long-term current use of insulin COPD (chronic obstructive pulmonary disease) Depression Diabetic peripheral neuropathy Gastric AV malformation GERD (gastroesophageal reflux disease) Hearing difficulty Hyperlipidemia LDL goal <70 Hypertension Hypothyroidism Memory loss Mitral regurgitation Obstructive sleep apnea uses oxygen 2 l nc at Pulmonary hypertension Secondary hyperparathyroidism of renal origin Uncontrolled daytime somnolence sleeps thru day and cant sleep at [facility] Surgical History H/O cardiac catheterization many years ago - over 10 years no stents follow with [facility] H/O esophagogastroduodenoscopy 02/16/19 and 03/2019 [facility]- Dr. Mando White. 50mg propofol, no issues. H/O hemorrhoidectomy Hx of cholecystectomy Family History Unknown Myocardial infarction Diabetes Mother Diabetes Gallbladder disease Hypertension Breast cancer late 70s Father Diabetes Hypertension Brother Diabetes Hypertension Kidney disease Social History Preferred Language: Yemeni Communication Ability: Effective Visual Impairment: No Limitations Hearing Ability: Hard of Hearing Drapery Hand Required: No Beliefs That Will Affect Care: None marital status: Current Living Situation: Spouse current occupational status: disabled current occupation: works part-time at [employer] Feels Safe at Home: Yes Smoking Status: Former smoker Tobacco Type: cigarettes ; Second Hand Exposure: No ; Hx Alcohol Use: No Hx Substance Use: No Childhood Exposure to Second-Hand Smoke: No Other Diet Comment: regular caffeine: Yes during the past year weight has: remained stable Dental Care, Regularly: Yes Physical Activity Frequency: Does not Exercise Physical Activity Frequency Comment: limited due physical condition Seatbelt Use: sometimes Sunscreen Use: No Physical Exam Constitutional: + ill appearing Respiratory: normal respiratory effort Cardiovascular: Rate/Rhythm: regular rate and regular rhythm Gastrointestinal (Abdomen): Percussion/Palpation: abdomen soft Results & Data Vital Signs (Past 12 Hours) Vital Signs Temp Pulse Pulse Pulse Resp BP BP 04/27/19 13:20 60 180/71 H 04/27/19 13:00 78 173/75 H 04/27/19 12:40 58 L 176/83 H 04/27/19 12:20 59 L 170/72 H 04/27/19 12:00 61 182/83 H 04/27/19 11:40 60 189/88 H 04/27/19 11:20 61 185/84 H 04/27/19 11:00 36.6 C 65 16 178/81 H 04/27/19 10:40 57 L 174/82 H 04/27/19 10:20 56 L 170/79 H 04/27/19 10:00 56 L 172/78 H 04/27/19 09:40 58 L 171/85 H 04/27/19 09:15 36.6 C 58 L 04/27/19 07:54 36.4 C L 61 20 174/72 H 04/27/19 04:30 56 L 22 172/84 H Pulse Ox 04/27/19 13:20 04/27/19 13:00 04/27/19 12:40 04/27/19 12:20 04/27/19 12:00 04/27/19 11:40 04/27/19 11:20 04/27/19 11:00 99 04/27/19 10:40 04/27/19 10:20 04/27/19 10:00 04/27/19 09:40 04/27/19 09:15 04/27/19 07:54 95 04/27/19 04:30 94 Code Status & VTE Plan VTE Prophylaxis Plan VTE Prophylaxis will be ordered: Yes
[2019-04-27] MEDS ORDERED: SODIUM CHLORIDE 0.9% 1000ML 1,000 ML IV SCH (14:15)
[2019-04-27] MEDS ORDERED: PROPOFOL IV EMULSION 10 MG/ML 20 ML VIAL IV ONE ×2 (14:32→15:03)
[2019-04-27] MEDS ORDERED: LIDOCAINE HCL 2% 2 ML VIAL/AMP(20MG/ML) INFIL ONE (14:32)
--- NOTE | 2019-04-27 15:00 | GI REPORT ---
Patient Name: Darnell Mcintyre Procedure Date: 04/27/2019 2:22 PM Date of : 1940 Admit Type: Inpatient Age: 78 Gender: Male Attending MD: Mando White MD Procedure: Upper GI endoscopy Providers: Mando White MD Referring MD: Stephen Gold Indications: Iron deficiency anemia secondary to chronic blood loss, Melena Medicines: Propofol total dose 270 mg IV, Lidocaine 80 mg IV Complications: No immediate complications. Estimated Blood Loss: Estimated blood loss: none. Procedure: Pre-Anesthesia Assessment: - Prior to the procedure, a History and Physical was performed, and patient medications, allergies and sensitivities were reviewed. The patient's tolerance of previous anesthesia was reviewed. - The risks and benefits of the procedure and the sedation options and risks were discussed with the patient. All questions were answered and informed consent was obtained. After obtaining informed consent, the endoscope was passed under direct vision. Throughout the procedure, the patient's blood pressure, pulse, and oxygen saturations were monitored continuously. The Endoscope was introduced through the mouth, and advanced to the second part of duodenum. The upper GI endoscopy was accomplished without difficulty. The patient tolerated the procedure well. Findings: The Z-line was regular and was found 48 cm from the incisors. Multiple 5 mm pedunculated and sessile polyps with no bleeding and no stigmata of recent bleeding were found in the gastric body. Multiple no bleeding angioectasias were found in the gastric antrum. Vaporization for bleeding prevention using argon plasma at 0.3 liters/minute and 20 whitley was successful. Estimated blood loss: none. A large non-bleeding diverticulum was found in the second portion of the duodenum. Impression: - Z-line regular, 48 cm from the incisors. - Multiple gastric polyps. - Multiple non-bleeding angioectasias in the stomach. Treated with argon plasma coagulation (APC). - Non-bleeding duodenal diverticulum. - No specimens collected. Recommendation: - Return patient to hospital [facility] for ongoing care. Mando White M.D. Mando White MD 04/27/2019 3:00:16 PM This report has been signed electronically. Note Initiated On: 04/27/2019 2:22 PM Number of Addenda: 0 I attest to the content of the Intraoperative Record and orders documented therein, exceptions below {[id number]}
--- NOTE | 2019-04-27 15:23 | Anesthesiology Progress Note ---
Date of Service April 27, 2019 Anesthesia Post Procedure Vital Signs Vital Signs: Temp Pulse Pulse Pulse Resp BP BP 04/27/19 15:15 61 18 148/64 H 04/27/19 15:00 63 18 146/49 H 04/27/19 14:16 36.6 C 61 22 176/66 H 04/27/19 13:35 36.6 C 58 L 170/80 H 04/27/19 13:20 60 180/71 H 04/27/19 13:00 78 173/75 H 04/27/19 12:40 58 L 176/83 H 04/27/19 12:20 59 L 170/72 H 04/27/19 12:00 61 182/83 H 04/27/19 11:40 60 189/88 H 04/27/19 11:20 61 185/84 H 04/27/19 11:00 36.6 C 65 16 178/81 H 04/27/19 10:40 57 L 174/82 H 04/27/19 10:20 56 L 170/79 H 04/27/19 10:00 56 L 172/78 H 04/27/19 09:40 58 L 171/85 H 04/27/19 09:15 36.6 C 58 L 04/27/19 07:54 36.4 C L 61 20 174/72 H 04/27/19 04:30 56 L 22 172/84 H 04/26/19 23:00 36.5 C 54 L 18 165/63 H 04/26/19 19:32 36.7 C 45 L 18 136/43 L 04/26/19 15:47 36.5 C 52 L 18 147/55 H Pulse Ox 04/27/19 15:15 92 04/27/19 15:00 94 04/27/19 14:16 97 04/27/19 13:35 04/27/19 13:20 04/27/19 13:00 04/27/19 12:40 04/27/19 12:20 04/27/19 12:00 04/27/19 11:40 04/27/19 11:20 04/27/19 11:00 99 04/27/19 10:40 04/27/19 10:20 04/27/19 10:00 04/27/19 09:40 04/27/19 09:15 04/27/19 07:54 95 04/27/19 04:30 94 04/26/19 23:00 91 04/26/19 19:32 96 04/26/19 15:47 92 Transfer of Care Handoff Completed per policy Notes Mental Status: alert / awake / arousable Patient Amnestic to Procedure: Yes Nausea / Vomiting: adequately controlled Pain: adequately controlled Airway Patency, RR, SpO2: stable & adequate BP & HR: stable & adequate Hydration State: stable & adequate Anesthetic Complications: no major complications apparent
[2019-04-27] MEDS: INSULIN ASPART 100 UNITS/ML 3 ML PEN SC SCH ×4 (15:40→21:14)
[2019-04-27] MEDS: DOCUSATE SODIUM 100 MG CAP PO SCH (15:42)
[2019-04-27] MEDS: LABETALOL HCL 200 MG TAB PO SCH ×2 (15:42→21:12)
[2019-04-27] MEDS: PANTOprazole 40 MG TAB PO SCH ×2 (15:42→21:14)
[2019-04-27] MEDS: LISINOPRIL 40 MG TAB PO SCH (15:43)
[2019-04-27] MEDS: DOXAZOSIN MESYLATE 1 MG TAB PO SCH (15:43)
[2019-04-27] MEDS: POLYETHYLENE (MIRALAX) 17 GM PACK PO SCH (15:43)
[2019-04-27] MEDS: FUROSEMIDE 40 MG TAB PO SCH ×2 (15:43→17:00)
[2019-04-27] MEDS: NEPHROCAPS PO SCH (15:43)
--- NOTE | 2019-04-27 15:51 | Progress Note ---
DATE: 04/27/2019 The patient presented to the endoscopy center this afternoon following dialysis for an EGD for melena and anemia. He did receive 2 units of blood yesterday. He has had multiple EGDs over the last several months and multiple transfusions for chronic anemia due to blood loss. I reviewed his records in addition to the procedures that he has had here. He has also had on 08/15/2018 at [facility] an upper endoscopy that was carried into the mid jejunum. There were no jejunal lesions seen. He has had multiple gastric polyps that were biopsied and were benign and ectasia in the gastric antrum, which has been seen before and a duodenal diverticulum. He also had a colonoscopy the same day. He had multiple diverticula and 5 small polyps that were removed, all of which were benign, but no obvious bleeding lesions. Furthermore, on 07/24/2017, he underwent a video capsule procedure to look at the small intestine. In addition to the gastric polyps and duodenal diverticulum, there were no small bowel bleeding lesions seen. IMPRESSION: Today, the patient underwent an EGD, which was found to have again some ectasia in the gastric antrum. This was treated with argon plasma coagulation. No other lesions were found that would explain his blood loss. He has had a fairly comprehensive evaluation in the last year to year and a half and I do not believe there is any other potential source for bleeding. I think if he continues to exhibit recurrent ectasia and bleeding that he may need to be referred to [facility] for another form of treatment to try to eradicate the ectasia more definitively.
--- NOTE | 2019-04-27 16:28 | Anesthesiology Consultation ---
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 History Surgery Operation Date: 04/27/19 17:10 Proposed Procedures p Esophagogastroduodenoscopy Dr Christopher White Height/Weight Height: 6 ft Weight: 93.7 kg Allergies Allergy/AdvReac Type Severity Reaction Status Date / Time tramadol AdvReac Severe disorented Verified 04/25/19 07:57 ,falling down metformin AdvReac Intermediate CONFUSION Verified 04/25/19 07:57 Medications Home Medications Medication Instructions Recorded Confirmed Last Taken amlodipine 10 mg tablet 10 mg PO HS #90 tab 11/12/18 04/25/19 04/24/19 tamsulosin 0.4 mg PO HS #90 cap 01/02/19 04/25/19 04/24/19 docusate sodium 100 mg capsule 200 mg PO QAM #30 cap 01/19/19 04/25/19 04/25/19 gabapentin 100 mg capsule 200 mg PO HS #60 cap 02/04/19 04/25/19 04/24/19 Renal Caps 1 mg PO QDL 02/15/19 04/25/19 04/24/19 levothyroxine 200 mcg PO QAM 02/15/19 04/25/19 04/25/19 lisinopril 40 mg tablet 40 mg PO DAILY@1200 #90 tab 02/26/19 04/25/19 04/24/19 Auryxia 420 mg PO TIDM 03/18/19 04/25/19 04/25/19 Boost Glucose Control 1 ea PO TIDM 03/18/19 04/25/19 Unknown insulin detemir U-100 100) 100 15 units SUBCUT HS ml 03/25/19 04/25/19 04/24/19 unit/mL subcutaneous solution doxazosin [Cardura] 1 mg PO QDL 04/07/19 04/25/19 04/24/19 furosemide 120 mg PO AMPM 04/07/19 04/25/19 04/25/19 insulin aspart U-100 [Novolog 0 unit SUBCUT ACHS 04/07/19 04/25/19 04/25/19 U-100 Insulin aspart] 3 units rosuvastatin 20 mg PO HS 04/07/19 04/25/19 04/24/19 levothyroxine 75 mcg PO DAILY 04/24/19 04/25/19 04/25/19 hydralazine 25 mg PO TIDM 04/25/19 04/25/19 04/25/19 labetalol 400 mg PO AMPM 04/25/19 04/25/19 04/25/19 pantoprazole 40 mg PO AMPM 04/25/19 04/25/19 04/25/19 Active Medications Generic Name Dose Route Start Last Admin Trade Name Sharon PRN Reason Stop Dose Admin Amlodipine Besylate 10 mg 04/25/19 21:00 04/26/19 20:56 Norvasc PO 05/25/19 20:59 10 mg HS SHANTA Administration Docusate Sodium 200 mg 04/26/19 09:00 04/27/19 15:42 Colace PO 05/26/19 08:59 200 mg QAM SHANTA Administration Doxazosin Mesylate 1 mg 04/25/19 12:30 04/27/19 15:43 Cardura PO 05/25/19 12:29 1 mg QDL SHANTA Administration Furosemide 120 mg 04/25/19 12:30 04/27/19 15:43 Lasix PO 05/25/19 12:29 120 mg BID17 SHANTA Administration Gabapentin 200 mg 04/25/19 21:00 04/26/19 20:54 Neurontin PO 05/25/19 20:59 200 mg HS SHANTA Administration Hydralazine HCl 25 mg 04/25/19 12:30 04/27/19 15:46 Apresoline PO 05/25/19 12:29 Not Given TIDM SHANTA Sodium Chloride 1,000 mls @ 15 mls/hr 04/27/19 14:15 04/27/19 15:44 Nss 1000ml IV 04/28/19 14:14 Not Given .Q24H SHANTA Insulin Aspart 0 units 04/26/19 07:30 04/27/19 15:46 Novolog Flexpen SC 05/26/19 07:29 Not Given ACHS SHANTA Labetalol HCl 400 mg 04/25/19 12:30 04/27/19 15:42 Normodyne PO 05/25/19 12:29 400 mg BID SHANTA Administration Levothyroxine Sodium 75 mcg 04/26/19 06:30 04/27/19 05:33 Synthroid PO 05/26/19 06:29 75 mcg DAILYBB SHANTA Administration Levothyroxine Sodium 200 mcg 04/26/19 06:30 04/27/19 05:33 Synthroid PO 05/26/19 06:29 200 mcg DAILYBB SHANTA Administration Lisinopril 40 mg 04/25/19 12:30 04/27/19 15:43 Zestril PO 05/25/19 12:29 40 mg DAILY@1200 SHANTA Administration Miscellaneous 1 ea 04/25/19 16:00 04/27/19 15:46 Order Awaiting Action N/A 05/25/19 15:59 Not Given QS SHANTA Pantoprazole Sodium 40 mg 04/25/19 12:30 04/27/19 15:42 Protonix PO 05/25/19 12:29 40 mg BID SHANTA Administration Polyethylene Glycol 17 gm 04/27/19 09:00 04/27/19 15:43 Miralax Powder Packet PO 05/27/19 08:59 17 gm DAILY SHANTA Administration Rosuvastatin Calcium 20 mg 04/25/19 21:00 04/26/19 20:54 Crestor PO 05/25/19 20:59 20 mg HS SHANTA Administration Tamsulosin HCl 0.4 mg 04/25/19 21:00 04/26/19 20:55 Flomax PO 05/25/19 20:59 0.4 mg HS SHANTA Administration Vitamin B Complex/Folic Acid 1 cap 04/25/19 12:30 04/27/19 15:43 Nephrocaps PO 05/25/19 12:29 1 cap QDL SHANTA Administration NPO Date Last Intake of Fluids: 04/26/19 Time Last Intake of Fluids: 06:00 Date Last Intake of Solids: 04/26/19 Time Last Intake of Solids: 06:00 Past Medical History Medical History Anemia (Acute) Anxiety Arthritis Asthma AVF (arteriovenous fistula) left arm BPH (benign prostatic hyperplasia) CAD (coronary artery disease) Chronic diastolic congestive heart failure Chronic kidney disease, stage IV (severe) dialysis - [facility], sat at [place] follow with dr sharon Teague, diverticulosis 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, with long-term current use of insulin COPD (chronic obstructive pulmonary disease) Depression Diabetic peripheral neuropathy Gastric AV malformation GERD (gastroesophageal reflux disease) Hearing difficulty Hyperlipidemia LDL goal <70 Hypertension Hypothyroidism Memory loss Mitral regurgitation Obstructive sleep apnea uses oxygen 2 l nc at hs Pulmonary hypertension Secondary hyperparathyroidism of renal origin Uncontrolled daytime somnolence sleeps thru day and cant sleep at [facility] Past Family History Family History Unknown Myocardial infarction Diabetes Mother Diabetes Gallbladder disease Hypertension Breast cancer late 70s Father Diabetes Hypertension Brother Diabetes Hypertension Kidney disease Past Surgical History Surgical History H/O cardiac catheterization many years ago - over 10 years no stents follow with trung H/O esophagogastroduodenoscopy 02/16/19 and 03/2019 [facility]- Dr. Mando White. 50mg propofol, no issues. H/O hemorrhoidectomy Hx of cholecystectomy Social History Smoking Status: Former smoker tobacco type: cigarettes Do You Dip or Chew Tobacco: No Hx Alcohol Use: No Hx Substance Use: No substance use type: does not use Physical Exam Vital Signs Last Vital Signs Temp 36.6 C 04/27/19 15:58 Pulse 59 L 04/27/19 15:58 Resp 16 04/27/19 15:58 BP 171/61 H 04/27/19 15:58 Pulse Ox 93 04/27/19 15:58 Testing Laboratory Results 04/27/19 05:41 04/27/19 05:41 PT 11.7 Seconds (9.0-12.0) 04/25/19 19:21 INR 1.2 (0.9-1.1) H 04/25/19 19:21 APTT 29.3 Seconds (21.0-31.0) 04/25/19 19:21 Blood Type B Positive 04/25/19 08:03 Antibody Screen NEGATIVE 04/25/19 08:03 04/27/19 04/27/19 15:57 07:30 POC Glucose 107 H 204 H Electrocardiogram Date: 04/25/19 Sinus bradycardia with 1st degree A-V block, rate 49 bpm Right bundle branch block T wave abnormality, consider inferolateral ischemia Abnormal ECG When compared with ECG of 07-APR-2019 14:34, QT has shortened Confirmed by Sahwn Altamirano ([id number]) on 04/25/2019 2:01:48 PM Chest X-Ray Date: 04/02/19 IMPRESSION: Moderate cardiomegaly. Pulmonary venous congestion. Other Testing Abd/ Pelvis CT (04/27/19) IMPRESSION: 1. No bowel obstruction. Normal appendix. Colonic diverticulosis without evidence for acute diverticulitis. 2. Suspected cirrhosis. Trace ascites. 3. Bladder wall thickening which may be due to underdistention however could be correlated with urinalysis to exclude cystitis. KUB (04/27/19) IMPRESSION: 1. No acute intra-abdominal pathology.
--- NOTE | 2019-04-27 16:30 | Hospitalist Progress Note ---
Date of Service April 27, 2019 Assessment & Plan (1) Abdominal pain: CT showed fluid filled loops, possible enteritis. Abd pain is now improved, will continue to monitor. - EGD on 04/27 showed further gastric angioectasias - Discussing with Dr. White regarding any other treatment options. 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 - Received Micera 200 units along with IV Iron 100 mg during HD this . - Continue to monitor hemoglobin - On 04/27, hgb is up to 8.2. (3) Gastric AV malformation: - Monitored, see above. (4) ESRD (end stage renal disease): - Receives HD qTuesThursSat. - Nephrology following, appreciate input. - HD session on 04/27 prior to EGD - Continue Lasix 120 mg PO BID. (5) Chronic diastolic congestive heart failure: Most recent echo in Apr 2018 showed EF 65-70%, severe LVH, dilated RV, mild to mod mitral regurg and grade II diastolic dysfunction. - Currently appears well compensated following HD session. - Monitor daily weights and I/Os. - Continue Lasix 120 mg PO BID, Labetalol 400 mg BID, Lisinopril 40 mg PO daily as prescribed. (6) Diabetes: A1C was 6.5 in Feb 2019. - SSI; BG has been well controlled. (7) Depression: Not currently on meds. - Mood stable today. (8) CAD (coronary artery disease): Currently denies cardiac symptoms. - Continue home med, including beta amberly & statin. (9) BPH (benign prostatic hyperplasia): - Continue home Flomax as prescribed. - No evidence of urinary retention. (10) Hypothyroidism: TSH was 17.6 this month. - Continue Synthroid 275 mcg daily. (11) Hypertension: BP has been well controlled overall, though today it is as high as 170/60. - Continue home Lisinopril 40 mg daily, Hydralazine 25 mg TID, Labetalol 400 mg BID, Norvasc 10 mg qhs. (12) COPD (chronic obstructive pulmonary disease): - No acute exacerbation noted. (13) Cirrhosis: CT A/P showed changes c/w early cirrhosis, may be related to CELAYA. - GI following, appreciate input. (14) DVT prophylaxis: - SCDs; holding pharmacologic ppx for bleeding. Subjective Feels well this afternoon. No further abdominal pain. No nausea or vomiting. Feeling "wiped out." Reports no fevers/chills, chest pain, shortness of breath, abdominal pain, nausea, or vomiting. Physical Exam Constitutional: WD/WN, vitals as above + frail appearing Eyes: EOM intact bilaterally; no conjunctival abnormality ENMT: external ear and nose normal, oropharynx normal Neck: trachea midline, no thyromegaly normal visual inspection Respiratory: normal respiratory effort, lungs clear to auscultation no respiratory distress Cardiovascular: RRR, no murmur, no edema Gastrointestinal (Abdomen): Inspection/Auscultation: abdomen normal to inspection; abdomen not distended Musculoskeletal: no cyanosis or clubbing, extremities motor strength 5/5 Skin: no rashes, warm and dry Neurologic: moves all extremities and awake Psychiatric: Orientation: alert, oriented to person and cooperative Results & Data Vital Signs (Past 12 Hours) Vital Signs Temp Pulse Pulse Pulse Resp BP BP 04/27/19 15:58 36.6 C 59 L 16 171/61 H 04/27/19 15:31 59 L 20 169/60 H 04/27/19 15:15 61 18 148/64 H 04/27/19 15:00 63 18 146/49 H 04/27/19 14:16 36.6 C 61 22 176/66 H 04/27/19 13:35 36.6 C 58 L 170/80 H 04/27/19 13:20 60 180/71 H 04/27/19 13:00 78 173/75 H 04/27/19 12:40 58 L 176/83 H 04/27/19 12:20 59 L 170/72 H 04/27/19 12:00 61 182/83 H 04/27/19 11:40 60 189/88 H 04/27/19 11:20 61 185/84 H 04/27/19 11:00 36.6 C 65 16 178/81 H 04/27/19 10:40 57 L 174/82 H 04/27/19 10:20 56 L 170/79 H 04/27/19 10:00 56 L 172/78 H 04/27/19 09:40 58 L 171/85 H 04/27/19 09:15 36.6 C 58 L 04/27/19 07:54 36.4 C L 61 20 174/72 H 04/27/19 04:30 56 L 22 172/84 H Pulse Ox 04/27/19 15:58 93 04/27/19 15:31 93 04/27/19 15:15 92 04/27/19 15:00 94 04/27/19 14:16 97 04/27/19 13:35 04/27/19 13:20 04/27/19 13:00 04/27/19 12:40 04/27/19 12:20 04/27/19 12:00 04/27/19 11:40 04/27/19 11:20 04/27/19 11:00 99 04/27/19 10:40 04/27/19 10:20 04/27/19 10:00 04/27/19 09:40 04/27/19 09:15 04/27/19 07:54 95 04/27/19 04:30 94 PG Care Time/CCT Total # of Minutes Spent Total Time Spent with Patient: Total time spent is greater than 50% in coordination of care (as documented) at patient's floor/unit and/or counseling patient: (1) Abdominal pain Abdominal location: right upper quadrant Qualified Code(s): R10.11 - Right upper quadrant pain (2) Anemia Anemia type: unspecified type Qualified Code(s): D64.9 - Anemia, unspecified (3) CAD (coronary artery disease) Coronary Disease-Associated Artery/Lesion type: [place] artery [place] vs. transplanted heart: [place] heart Associated angina: without angina Qualified Code(s): I25.10 - Atherosclerotic heart disease of [place] coronary artery without angina pectoris (4) BPH (benign prostatic hyperplasia) Lower urinary tract symptom presence: unspecified whether lower urinary tract symptoms present Qualified Code(s): N40.0 - Benign prostatic hyperplasia without lower urinary tract symptoms (5) Hypothyroidism Hypothyroidism type: acquired Qualified Code(s): E03.9 - Hypothyroidism, unspecified (6) Hypertension Hypertension type: essential hypertension Qualified Code(s): I10 - Essential (primary) hypertension (7) COPD (chronic obstructive pulmonary disease) COPD type: unspecified COPD Qualified Code(s): J44.9 - Chronic obstructive pulmonary disease, unspecified
[2019-04-27] MEDS: ROSUVASTATIN CALCIUM 20 MG TAB PO SCH (21:12)
[2019-04-27] MEDS: AMLODIPINE BESYLATE 5 MG TAB PO SCH (21:12)
[2019-04-27] MEDS: TAMSULOSIN HCL 0.4 MG CAP PO SCH (21:12)
[2019-04-27] MEDS: GABAPENTIN 100 MG CAP PO SCH (21:12)
[2019-04-28] MEDS: LEVOTHYROXINE SODIUM 200 MCG TABLET PO SCH (06:22)
[2019-04-28] MEDS: LEVOTHYROXINE SODIUM 75 MCG TABLET PO SCH (06:22)
[2019-04-28] MEDS ORDERED: SODIUM CHLORIDE 0.9% 1000ML 1,000 ML IV PRN (07:00)
[2019-04-28 08:01] LABS: Hematocrit (blood only) 27.2 % (42-52); Hemoglobin 8.7 g/dL (14.0-18.0); Mean Corpuscular Hemoglobin 30.6 pg (25-34); Mean Corpuscular Volume 95.8 fL (80-100); Mean Platelet Volume 10.2 fL (7.4-10.4); Platelet Count 139 K/uL (130-400); RDW Coefficient of Variation 17.9 % (11.5-14.5); RDW Standard Deviation 62.9 fL (36.4-46.3); Red Blood Count 2.84 M/uL (4.7-6.1); White Blood Count 3.69 K/uL (4.8-10.8)
[2019-04-28 08:42] LABS: Albumin Globulin Ratio 0.9 (0.9-2); BUN Creatinine Ratio 7.1 (10-20); Bilirubin,Total 0.5 mg/dl (0.2-1); Calcium 9.2 mg/dl (8.5-10.1); Creatinine Clr Calc Pharmacy 11.7 ml/min; Est GFR (Non-African American) 7.7; Globulin 3.3 gm/dl (2.5-4.0); Magnesium 1.9 mg/dl (1.8-2.4); Phosphorus 5.1 mg/dl (2.5-4.9); Potassium 3.5 mmol/L (3.5-5.1); Total Protein 6.3 gm/dl (6.4-8.2)
[2019-04-28] MEDS: INSULIN ASPART 100 UNITS/ML 3 ML PEN SC SCH ×2 (09:13→12:34)
[2019-04-28] MEDS: FUROSEMIDE 40 MG TAB PO SCH (09:14)
[2019-04-28] MEDS: POLYETHYLENE (MIRALAX) 17 GM PACK PO SCH (09:15)
--- NOTE | 2019-04-28 10:32 | Nephrology Progress Note ---
Date of Service April 28, 2019 Assessment & Plan (1) ESRD (end stage renal disease): Augie has end-stage renal disease secondary to hypertensive nephropathy, has been on dialysis Saturday, , Saturday at [facility] unit. Admitted to the hospital on Saturday after he developed abdominal pain while on dialysis. Upon arrival he was found to have hemoglobin less than 7, received 2 units of blood transfusion. Hemoglobin slightly improved to 8.2 this morning. Has history of chronic GI bleeding and repeated hospital admission and ER visit for persistent GI bleeding and repeated low hemoglobin requiring repeated EGD, blood transfusion. At the dialysis unit he has been on maximum dose of NEMESIO and Venofer. EGD yesterday without any active bleeding. --dialysis today for 4 hours according to his regular schedule. --patient will need definitive treatment for this ongoing issue of GI bleeding which has been ongoing for last at least 6 months with repeated it need for blood transfusion, ER visit, EGD and hospital admission. --dose medications for GFR less than 10 --continue Lasix 80 milligram p.o. b.i.d. --okay to be discharged after dialysis today Will follow Subjective Augie Was seen and examined in his room this morning. He is overall looking much better and denies any symptom. Blood pressure better controlled. Lower extremity edema improved. Hemoglobin improved to 8.7 after 1 unit PRBC yesterday. Review of Systems Constitutional: as per Subjective / HPI; no fever, no chills, no weakness and no weight loss Eyes: no problem reported Respiratory: no cough, no dyspnea and no hemoptysis Cardiovascular: no chest pain, no syncope and no edema Gastrointestinal: no abdominal pain, no nausea and no vomiting Neurologic: no generalized weakness, no tingling and no numbness Psychiatric: as per Subjective / HPI; no behavioral changes Physical Exam Constitutional: + ill appearing, + frail appearing and + lethargic; no acute distress Respiratory: normal respiratory effort, lungs clear to auscultation Cardiovascular: Rate/Rhythm: regular rate and regular rhythm Heart Sounds: normal S1 and normal S2 Extremities: + edema Skin: no rashes, warm and dry Neurologic: awake; + does not move all extremities and not confused Psychiatric: A+Ox3, euthymic affect Results & Data Vital Signs (Past 12 Hours) Vital Signs Temp Pulse Resp BP Pulse Ox 04/28/19 08:55 36.7 C 55 L 19 150/53 H 92 04/28/19 04:38 36.7 C 59 L 18 155/57 H 93 04/27/19 23:57 36.7 C 54 L 20 163/64 H 93 PG Care Time/CCT Total # of Minutes Spent Total Time Spent with Patient: Total time spent is greater than 50% in c oordination of care (as documented) at patient's floor/unit and/or counseling patient:
[2019-04-28] MEDS ORDERED: IRON SUCROSE 200 MG in 0.9 % SODIUM CHLORIDE 100 ML IV SCH (12:30)
[2019-04-28] MEDS: DOCUSATE SODIUM 100 MG CAP PO SCH (12:37)
[2019-04-28] MEDS: PANTOprazole 40 MG TAB PO SCH (12:37)
[2019-04-28] MEDS: LABETALOL HCL 200 MG TAB PO SCH (12:38)
[2019-04-28] MEDS: DOXAZOSIN MESYLATE 1 MG TAB PO SCH (14:18)
[2019-04-28] MEDS: LISINOPRIL 40 MG TAB PO SCH (14:18)
[2019-04-28] MEDS: NEPHROCAPS PO SCH (14:18)
--- NOTE | 2019-04-28 15:44 | Discharge Summary ---
Date of Service April 28, 2019 Admission HPI Per Admitting Provider For EGD Principal Diagnosis Gastric angioectasias Discharge Exam Constitutional WD/WN, vitals as above + frail appearing Eyes EOM intact bilaterally; no conjunctival abnormality ENMT external ear and nose normal, oropharynx normal Neck trachea midline, no thyromegaly normal visual inspection Respiratory normal respiratory effort, lungs clear to auscultation no respiratory distress Cardiovascular RRR, no murmur, no edema Gastrointestinal (Abdomen) Inspection/Auscultation: abdomen normal to inspection; abdomen not distended Musculoskeletal no cyanosis or clubbing, extremities motor strength 5/5 Skin no rashes, warm and dry Neurologic moves all extremities and awake Psychiatric Orientation: alert, oriented to person and cooperative Discharge Data Allergies Allergy/AdvReac Type Severity Reaction Status Date / Time tramadol AdvReac Severe disorented Verified 04/25/19 07:57 ,falling down metformin AdvReac Intermediate CONFUSION Verified 04/25/19 07:57 Consultations 04/25/19 10:46 ED Decision to Admit Stat 04/25/19 12:30 Consult Gastroenterology Routine Consult Nephrology Routine Procedures Performed Operation Date: 04/27/19 17:10 Actual Procedures p EGD Hemostasis - Mando White Ordered Studies 04/25/19 07:46 CT abd pelvis wo con Stat 04/27/19 04:24 CT abd pelvis wo con Urgent Hospital Course (1) Abdominal pain: CT showed fluid filled loops, possible enteritis. Abd pain is now improved, will continue to monitor. - EGD on 04/27 showed further gastric angioectasias which were treated with argon lasering. This is his 4th treatment. - Discussed with Dr. White regarding any other treatment options. Will follow up with [facility] regarding any clinical trials. 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 - Received Micera 200 units along with IV Iron 100 mg during HD this weekend. - Continue to monitor hemoglobin - On 04/28, hgb is up to 8.7. Received Venofer 200 mg IV x 1 on 04/28 prior to discharge. (3) Gastric AV malformation: - Monitored, see above. (4) ESRD (end stage renal disease): - Receives HD qTuesThursSat. - Nephrology following, appreciate input. - HD session on 04/28. Will get outpatient HD tomorrow, then skip normal for Thanksgiving. - Continue Lasix 120 mg PO BID. (5) Chronic diastolic congestive heart failure: Most recent echo in Apr 2018 showed EF 65-70%, severe LVH, dilated RV, mild to mod mitral regurg and grade II diastolic dysfunction. - Currently appears well compensated following HD session. - Monitor daily weights and I/Os. - Continue Lasix 120 mg PO BID, Labetalol 400 mg BID, Lisinopril 40 mg PO daily as prescribed. (6) Diabetes: A1C was 6.5 in Feb 2019. - SSI; BG has been well controlled. (7) Depression: Not currently on meds. - Mood stable today. (8) CAD (coronary artery disease): Currently denies cardiac symptoms. - Continue home med, including beta amberly & statin. (9) BPH (benign prostatic hyperplasia): - Continue home Flomax as prescribed. - No evidence of urinary retention. (10) Hypothyroidism: TSH was 17.6 this month. - Continue Synthroid 275 mcg daily. (11) Hypertension: BP has been well controlled overall, though today it is as high as 170/60. - Continue home Lisinopril 40 mg daily, Hydralazine 25 mg TID, Labetalol 400 mg BID, Norvasc 10 mg qhs. (12) COPD (chronic obstructive pulmonary disease): - No acute exacerbation noted. (13) Cirrhosis: CT A/P showed changes c/w early cirrhosis, may be related to CELAYA. - GI following, appreciate input. (14) DVT prophylaxis: - SCDs; holding pharmacologic ppx for bleeding. Total Time Total Time Spent Total Time Spent (In Minutes): 35 Discharge Plan Discharge Items Patient Disposition: Home - Home Health Services Reason For Visit: PAIN ABDOMEN Discharge Diagnosis: Stomach bleeding Activity: Resume your previous activity Non-emergency contact: Primary Care Provider and Manager Private Call non-emergency contact if: your symptoms worsen and your pain is worsening Follow-up/Referrals: Mahsa Wang DO [Primary Care Provider] - Diet: Heart Healthy Addtl Attending Provider Instructions: You were admitted to the hospital with stomach pain. The blood vessels in your stomach may have been bleeding again. You had an EGD and Dr. White tried to cauterize the blood vessels. Please follow up with your doctors. Pending Studies at Discharge: No Stand-Alone Forms: Call Back Authorization, [facility], Smoking Cessation Medications and DC Order Prescriptions: Continued gabapentin 100 mg capsule 200 mg PO HS Qty: 60 RF: 5 lisinopril 40 mg tablet 40 mg PO DAILY@1200 Qty: 90 RF: 3 amlodipine 10 mg tablet 10 mg PO HS Qty: 90 RF: 0 docusate sodium 100 mg capsule 200 mg PO QAM Qty: 30 RF: 0 Levemir U-100 Insulin 100 unit/mL solution 15 units subcut HS RF: 0 tamsulosin 0.4 mg capsule 0.4 mg PO HS Qty: 90 RF: 1 Renal Caps 1 mg capsule 1 mg PO QDL RF: 0 levothyroxine 200 mcg tablet 200 mcg PO QAM RF: 0 levothyroxine 75 mcg tablet 75 mcg PO DAILY RF: 0 Auryxia 210 mg iron tablet 420 mg PO TIDM RF: 0 Boost Glucose Control 0.06-1.1 gram-kcal/mL Liquid 1 ea PO TIDM RF: 0 Novolog U-100 Insulin aspart 100 unit/mL solution 0 unit subcut ACHS RF: 0 doxazosin [Cardura] 1 mg tablet 1 mg PO QDL RF: 0 furosemide 80 mg tablet 120 mg PO AMPM RF: 0 rosuvastatin 20 mg tablet 20 mg PO HS RF: 0 hydralazine 25 mg tablet 25 mg PO TIDM RF: 0 pantoprazole 40 mg tablet,delayed release (DR/EC) 40 mg PO AMPM RF: 0 labetalol 100 mg tablet 400 mg PO AMPM RF: 0 Discharge Orders: Discharge Order (Routine); Ordered 04/28/19 Ordered By: Stephen Gold Admission Data Admit Date/Time: 04/28/19 07:59 Attending Provider: Stephen Gold Admit Provider: Surinder Siddiqui Primary Care Provider: Mahsa Wang Other Providers: Surinder Siddiqui ; Madno White ; Eugene Busby Other Interventions: Discharge Summary Assessment (RN) Last Done: 04/27/19 15:24
== END 2019-04-28 16:30 | disposition home or self-care (01) | DRG 377 ==
LOC: 2S 07:25 → ED 07:25 → SUATTDRO 11:22 → 2S 12:06

== ENCOUNTER 2019-06-06 12:55 | Inpatient (IN) ==
[2019-06-06 13:42] LABS: Hematocrit (blood only) 20.4 % (42-52); Hemoglobin 6.5 g/dL (14.0-18.0); Mean Corpuscular Hgb Conc 31.9 g/dL (32-36); Mean Platelet Volume 9.6 fL (7.4-10.4); Platelet Count 210 K/uL (130-400); RDW Coefficient of Variation 15.4 % (11.5-14.5); RDW Standard Deviation 52.9 fL (36.4-46.3); Red Blood Count 2.17 M/uL (4.7-6.1); White Blood Count 4.89 K/uL (4.8-10.8)
[2019-06-06] MEDS ORDERED: SODIUM CHLORIDE 0.9% 250 ML IV PRN (13:48)
[2019-06-06 13:49] LABS: Alanine Aminotransferase 22 U/L (12-78); Albumin Level 2.2 gm/dl (3.4-5.0); Aspartate Aminotransferase 17 U/L (15-37); BUN Creatinine Ratio 8.5 (10-20); Blood Urea Nitrogen 32 mg/dl (7-18); Calcium 8.6 mg/dl (8.5-10.1); Carbon Dioxide 33 mmol/L (21-32); Chloride 99 mmol/L (98-107); Est GFR (African American) 16.6; Est GFR (Non-African American) 14.3; Glucose 183 mg/dl (70-99); Magnesium 1.7 mg/dl (1.8-2.4); Potassium 3.1 mmol/L (3.5-5.1); Sodium 138 mmol/L (136-145)
--- NOTE | 2019-06-06 13:52 | XRay Report ---
XR chest 1V portable CLINICAL HISTORY: weakness dyspnea COMPARISON STUDY: 05/23/2019 FINDINGS: Mild stable cardiomegaly. Chronic parenchymal prominence left lung base. Lungs otherwise ap pear clear. IMPRESSION: Chronic change. No acute process. ACT 112: Negative or not required by law. The above report was generated using voice recognition software. It may contain grammatical, syntax or spelling errors. Electronically signed by: Osmany Marte M.D. 06/06/2019 1:51 PM
[2019-06-06 13:57] LABS: Basophils # (auto) 0.02 K/uL (0-0.2); Basophils % (auto) 0.4 %; Eosinophils # (auto) 0.16 K/uL (0-0.5); Eosinophils % (auto) 3.3 %; Immature Granulocytes # (auto) 0.02 K/uL (0.00-0.02); Immature Granulocytes % (auto) 0.4 %; Lymphocytes # (auto) 0.52 K/uL (1.2-3.4); Lymphocytes % (auto) 10.6 %; Monocytes # (auto) 0.46 K/uL (0.11-0.59); Monocytes % (auto) 9.4 %; Neutrophils # (auto) 3.71 K/uL (1.4-6.5); Neutrophils % (auto) 75.9 %; RBC Morphology Unremarkable
[2019-06-06 14:02] LABS: Albumin Globulin Ratio 0.6 (0.9-2); Alkaline Phosphatase 123 U/L (45-117); Bilirubin,Total 0.3 mg/dl (0.2-1); Globulin 3.6 gm/dl (2.5-4.0); Total Protein 5.8 gm/dl (6.4-8.2)
--- NOTE | 2019-06-06 14:08 | History & Physical Report ---
Date of Service June 06, 2019 Assessment & Plan (1) Anemia: -Admit to PCU -Likely secondary to acute blood loss secondary to GI bleed, history of G AVE, AV malformation, as previously diagnosed via multiple EGDs. Recently admitted and received a total of 8 U during stay at [facility] from 05/23 to 05/31/2019 -Hgb = 6.5, BUN = 32, creatinine=3.81, potassium = 3.1 -Patient has been typed and screened, blood consent obtained, first unit currently being transfused, will order second unit pending recheck on H&H Q6H x 2 -Protonix 40 mg IV BID -Allow clear liquid diet -Continue ferrous sulfate supplementation -Continue Aranesp supplementation weekly (2) GAVE (gastric antral vascular ectasia): - History of such - Reviewed recent discharge summary from [facility] sent showing multiple EGDs confirm diagnosis (3) Gastric AV malformation: -History of such as above (4) Chronic diastolic congestive heart failure: -Most recent echo completed in April, EF of 65 to 70%, severe LVH, dilated right ventricle ventricle, mild to moderate mitral regurg and grade 2 diastolic dysfunction -Continue Bumex 2 mg BID -Hold lisinopril, labetalol, amlodipine secondary to GI bleed -Strict I's/O's, daily weights -Consider administration of IV Bumex in between units of PRBCs to avoid exacerbation (5) Hyperlipidemia LDL goal <70: -Continue statin therapy (6) CAD (coronary artery disease): -Pt not on anticoagulants or antiplatelets secondary to recurrent GI bleeds as above. 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, with long-term current use of insulin: -Last A1c in February 2019 of 6.5 -Continue Levemir but reduce dose to 9 U HS with clear liquid diet -ISS with Accu-Cheks AC at bedtime (11) Diabetic peripheral neuropathy: -Stable, continue gabapentin 200 mg HS (12) ESRD (end stage renal disease) on dialysis: -Consult nephrology for HD, normally does on Saturday -Continue calcium acetate AC -Aranesp 60 mg subcu weekly -Patient was discharged on a reduced dose of Bumex 2 mg BID compared to prior to admission at [facility], increased edema in hands and feet, consider diuretic adjustment once anemia more stabilized. -Strict I's/O's, daily weight (13) Obstructive sleep apnea: -Does not use CPAP, continue supplemental O2 as needed (14) Osteoporosis: -Continue vitamin D, calcium supplementation, Aranesp weekly (15) Pulmonary hypertension: -Last recent echo in April 2018 as above (16) Peripheral vascular disease: -Secondary to CAD -medications as above (17) Vitamin D deficiency: -Continue supplementation (18) BPH (benign prostatic hyperplasia): -Continue Flomax (19) Secondary hyperparathyroidism of renal origin: (20) Hypothyroidism: -Continue levothyroxine daily (21) Cirrhosis: -A US elastography of the liver on 05/26/2019 which showed mildly coarsened echotexture which can be seen in the setting of hepatic cirrhosis. -Secondary to multiple comorbidities (22) Sarcopenia: -Albumin decreased at 2.2, patient is supposed to be on boost supplementations at home but does not drink it -Encourage at least 1 can of boost before bed, +/- with meals -Likely contributing to interstitial edema (23) DVT prophylaxis: -Teds, scds, no chemical anticoagulation in setting of GI bleed CODE STATUS: Full code-discussed with the patient and family at bedside -Palliative consult may be warranted to discuss goals of care with this patient due to recurrent hospitalizations for recurrent GI bleeds Disposition: Patient from home, lives with , likely to remain in the hospital for at least 1-2 days Time spent involves 102 minutes of prolonged time includes but is not limited to chart review from recent hospitalizations, current admission, coordination of care, and discussion with family and consultants. History of Present Illness Primary Care Provider: Mahsa Wang DO This is a 79-year-old male with PMHx of CAD, chronic diastolic CHF, HTN, HLD, pulmonary hypertension, asthma, COPD, DM type II, CKD stage V on chronic dialysis, peripheral neuropathy, GERD, obstructive sleep apnea, secondary hyperparathyroidism, arthritis, anxiety, depression who presents to the ER with acute worsening of weakness and shortness of breath. The patient was recently admitted to [facility], actually was transferred from our facility on 05/23/2019 and was admitted there through 05/31/2019. This was for anemia secondary to upper GI bleed, gave, gastric ulcer with a hemoglobin of 5.6. Patient underwent his first EGD 04/27 here which showed gastric ectasias and treated with argon lasering, this was his fourth treatment for continued GI bleed. While at [facility] he required transfusion of 8 units PRBCs and also underwent 2 additional EGDs. A repeat EGD on 05/28 showed evidence of AVMs which were cauterized with with a gold probe. His bleeding was stabilized at [facility]. CT of the abdomen found a 1.3 cm exophytic cystic lesion in the pancreatic tail which was recommended to be followed up by MRI, this will need to be further evaluated once the patients anemia is more controlled. Today the prior patient presented to dialysis for his routinely scheduled session and completed it in its entirety. The main complaint today is that the patient started to feel extremely weak, fatigued, and slightly short of breath starting last evening. He was not doing great on his way into dialysis, and his and daughter who are at bedside report it was very difficult to get him into the car. His pharmacy laboratory technician, Dr. Mcfadden, was aware of low hemoglobin and had been scheduled for 2 units PRBCs to be transfused during dialysis on 06/08/2019. Due to his complaints of not feeling well his brought him to the ER. He was found to be anemic with Hgb equal 6.5, and is currently being transfused 1 unit. Patient reports intermittent nausea, lightheadedness and dizziness which also occurred throughout the day today. He currently feels okay, no specific complaints other than that already listed. Allergies Allergy/AdvReac Type Severity Reaction Status Date / Time tramadol AdvReac Severe disorented Verified 06/06/19 14:12 ,falling down metformin AdvReac Intermediate CONFUSION Verified 06/06/19 14:12 Home Medications Home Medications Medication Instructions Recorded Confirmed Type amlodipine 10 mg tablet 10 mg PO HS #90 tab 11/12/18 06/06/19 Rx tamsulosin 0.4 mg PO HS #90 cap 01/02/19 06/06/19 Rx docusate sodium 100 mg capsule 200 mg PO QAM #30 cap 01/19/19 06/06/19 Rx gabapentin 100 mg capsule 200 mg PO HS #60 cap 02/04/19 06/06/19 Rx levothyroxine 200 mcg PO QAM 02/15/19 06/06/19 History lisinopril 40 mg tablet 40 mg PO DAILY@1200 #90 tab 02/26/19 06/06/19 Rx Boost Glucose Control 1 ea PO TIDM 03/18/19 06/06/19 History insulin detemir U-100 100) 100 15 units SUBCUT HS ml 03/25/19 06/06/19 History unit/mL subcutaneous solution rosuvastatin 20 mg PO HS 04/07/19 06/06/19 History levothyroxine 75 mcg PO DAILY 04/24/19 06/06/19 History pantoprazole 40 mg PO AMPM 04/25/19 06/06/19 History doxazosin 1 mg tablet 1 mg PO DAILY #30 tab 05/19/19 06/06/19 Rx B complex with C 20-folic acid 1 cap PO DAILY 05/23/19 06/06/19 History [Renal Caps] bumetanide 1 mg tablet 1 mg PO BID #60 tab 06/02/19 06/06/19 Rx calcium acetate 667 mg tablet 2,001 mg PO TIDM tab 06/02/19 06/06/19 History darbepoetin rasheed in polysorbat 60 60 mcg SUBCUT .COMPLEX #4 ml 06/02/19 06/06/19 Rx mcg/mL in polysorbate injection ferrous sulfate 325 mg (65 mg 325 mg PO BID #60 tab 06/02/19 06/06/19 Rx iron) tablet,delayed release hydralazine 25 mg tablet 50 mg PO Q8 tab 06/02/19 06/06/19 History insulin aspart U-100 [Novolog See Rx Instructions .ROUTE .COMPLEX 06/06/19 06/06/19 History U-100 Insulin aspart] labetalol 200 mg PO BID 06/06/19 06/06/19 History multivitamin 1 tab PO DAILY 06/06/19 06/06/19 History Past Med/Surg History Medical History Anxiety Arthritis Asthma AVF (arteriovenous fistula) left arm BPH (benign prostatic hyperplasia) CAD (coronary artery disease) Chronic diastolic congestive heart failure Chronic kidney disease, stage IV (severe) dialysis - [facility], sat at [place] follow with dr herrera Colon, diverticulosis 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, with long-term current use of insulin COPD (chronic obstructive pulmonary disease) Depression Diabetic peripheral neuropathy 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- Dr. Mando White. 50mg propofol, no issues. H/O hemorrhoidectomy History of esophagogastroduodenoscopy (EGD) x 2 at [facility] during admission from 05/23/19-05/30/19 Hx of cholecystectomy Family History Unknown Myocardial infarction Diabetes Mother Diabetes Gallbladder disease Hypertension Breast cancer late 70s Father Diabetes Hypertension Brother Diabetes Hypertension Kidney disease Social History Preferred Language: Yi Communication Ability: Effective Visual Impairment: No Limitations Hearing Ability: Hard of Hearing Box Office Attendant Required: No Beliefs That Will Affect Care: None marital status: Current Living Situation: Spouse current occupational status: disabled current occupation: works part-time at [employer] Other Information That Helps Us Care for You: No Feels Safe at Home: Yes Safety Concerns: Feels Safe At This Time Smoking Status: Former smoker Tobacco Type: cigarettes ; Do You Dip or Chew Tobacco: No ; Number of Years Since Quit: 25 ; Second Hand Exposure: No ; Tobacco Cessation Education Requested by Patient: No Hx Alcohol Use: No Hx Substance Use: No Childhood Exposure to Second-Hand Smoke: No Other Diet Comment: regular caffeine: Yes during the past year weight has: remained stable Dental Care, Regularly: Yes Physical Activity Frequency: Does not Exercise Physical Activity Frequency Comment: limited due physical condition Seatbelt Use: sometimes Sunscreen Use: No Review of Systems Review of Systems: Constitutional: No fever, sweats or chills, + generalized fatigue, lightheadedness and dizziness Eyes: No diplopia, no worsening or blurred vision ENT: + Hard of hearing, no trouble swallowing Respiratory: + Shortness of breath at rest and on exertion, + cough, + clear thick sputum occasionally Cardiovascular: No chest pain, tightness or palpitations, + edema of the hands and feet worsened in the past week Abdomen: No pain, nausea, vomiting. + Had 3 bowel movements overnight, dark stools, denies BRBPR Musculoskeletal: No joint pain, calf pain Neurologic: + Generalized weakness, no numbness/tingling, or balance problems Psychiatric: No anxiety or depression Skin: No rash or itch Physical Exam Physical Exam: General: awake, alert, no apparent distress, sitting up in bed receiving 1 unit PRBCs Head: Normocephalic, atraumatic ENT: PERRL, EOMI, no pharyngeal exudate, mucous membranes moist, + hard of hearing Chest: Clear to auscultation, on room air, no adventitious breath sounds Cardiac: Regular rate and rhythm, few PVCs, + faint TIMO, no JVD, normal peripheral pulses, good capillary refill Abdominal: NABS x 4 quadrants, soft, nondistended, nontender to palpation, no rebound, guarding or tenderness Extremities: 1+ pitting peripheral edema in hands up to midcalf and involving the hands and fingers, no erythema, calfs nontender to palpation Psych: Normal mood and affect Neuro: AAO x 3, no gross motor deficits, speech is clear, no peripheral sensory deficits Skin: + Dry skin, no rash or erythema Constitutional: WD/WN, vitals as above Eyes: normal visual arreaga by confrontation and + anicteric sclerae Neck: normal visual inspection and trachea midline Respiratory: normal respiratory effort; no respiratory distress Auscultation: no crackles and no wheezes upper airway congestion noted Cardiovascular: Rate/Rhythm: regular rate and regular rhythm Gastrointestinal (Abdomen): Inspection/Auscultation: abdomen not distended Percussion/Palpation: abdomen soft; abdomen nontender Musculoskeletal: Head/Neck/Chest: normocephalic and head atraumatic 1+ peripheral LE edema, + pedal pulses Skin: no rashes, warm and dry + pallor Neurologic: awake; not confused Speech / Cognition: normal speech Psychiatric: A+Ox3, euthymic affect Lymphatic: Exam as done by Raina Funes DO Results & Data Vital Signs (Past 12 Hours) Vital Signs Temp Pulse Pulse Resp BP BP Pulse Ox 06/06/19 13:46 96 06/06/19 13:45 96 H 20 144/55 H 96 06/06/19 13:44 96 06/06/19 13:03 36.7 C 70 18 139/56 L 94 Diagnostic Findings XR chest 1V portable CLINICAL HISTORY: weakness dyspnea COMPARISON STUDY: 05/23/2019 FINDINGS: Mild stable cardiomegaly. Chronic parenchymal prominence left lung base. Lungs otherwise appear clear. IMPRESSION: Chronic change. No acute process. Code Status & VTE Plan Code Status Full code-discussed with the patient and family at bedside Supervising Physician Co-Signing Physician Notes Pt seen and examined by me. Denies chest pain. States his SOB is mostly resolved s/p 1 unit PRBC in the ED. He has been tolerating PO without issue. Agree with HPI/ROS as noted by PA See above for my exam in PE section Agree with plan as outlined above GIB, with hx of same Recent d/c from [facility] s/p EGD x3 with interventions Hb was 7.5 on 06/02 Had been scheduled via renal for 2 units PRBC on 06/08, but SOB/CONNER was too much to continue on at home Had HD today Slight trop elevation, appears chronic and likely related to renal status CXR neg for acute Pt has an appt in August with [facility] liver team, but no f/u with GI Advised that he should be seen by [facility] GI in the next 1-2 weeks given above PG Care Time/CCT Total # of Minutes Spent Total Time Spent with Patient: Total time spent is greater than 50% in coordin ation of care (as documented) at patient's floor/unit and/or counseling patient: (1) BPH (benign prostatic hyperplasia) Lower urinary tract symptom presence: unspecified whether lower urinary tract symptoms present Qualified Code(s): N40.0 - Benign prostatic hyperplasia w ithout lower urinary tract symptoms (2) CAD (coronary artery disease) Associated angina: without angina Coronary Disease-Associated Artery/Lesion type: [place] artery [place] vs. transplanted heart: [place] heart Qualified Code(s): I25.10 - Atherosclerotic heart disease of [place] coronary artery without angina pectoris (3) Anemia Anemia type: unspecified type Qualified Code(s): D64.9 - Anemia, unspecified (4) Hypothyroidism Hypothyroidism type: acquired Qualified Code(s): E03.9 - Hypothyroidism, unspecified (5) Cirrhosis Ascites presence: unspecified Hepatic cirrhosis type: unspecified hepatic cirrhosis Qualified Code(s): K74.60 - Unspecified cirrhosis of liver (6) COPD (chronic obstructive pulmonary disease) COPD type: unspecified COPD Qualified Code(s): J44.9 - Chronic obstructive pulmonary disease, unspecified (7) Hypertension Hypertension type: essential hypertension Qualified Code(s): I10 - Essential (primary) hypertension
[2019-06-06 14:15] LABS: T4 Free Thyroxine 1.07 ng/dl (0.8-1.6)
--- NOTE | 2019-06-06 16:12 | Emergency Department Note ---
Entered by Brooklyn Paige acting as a scribe for Shayan Klein MD History of Present Illness General Chief complaint: Weakness Stated complaint: WEAKNESS - SUPPOSED TO GET BLOOD SATURDAY Time Seen by Provider: 06/06/19 13:13 Source: patient History of Present Illness Provider complaint: weakness Onset (ago): minute(s) (prior to arrival) Location: left and right Severity: similar to prior episodes Quality: + other (weakness) Associated symptoms: + cough (Phlegm), + nausea/vomiting (Positive nausea; Negative vomiting), + shortness of breath, + weakness and + other (Negative urinary incontinence; ); no chest pain and no fever/chills The patient, who is a 79 year old male with a medical history of anemia, AVF and COPD, presents to the Emergency Room with complaints of weakness due to a low hemoglobin that was observed prior to arrival. The patient's daughter states that the patient was alerted that his hemoglobin was low during his dialysis treatment. The patient's daughter confirms the patient completed the entire cour se of dialysis treatment. The patient's reports that the patient's hemoglobin was approximately 7.2 four days ago but is unsure what his current level is. The patient expresses that he is not feeling well. The patient is feeling nauseous but has not vomited. The patient states that he is experiencing shortness of breath. The patient's daughter expresses that the patient has had weakness today and was not able to walk on his own. The patient's reports that the patient has a cough with phlegm production. The patient denies chest pain and fever. The patient informs that he is able to urinate but the patient's daughter expresses that it is minimal. The patient's daughter states that during his hospitalization in [place] they found an ulcer and did a "volcanic hitesh" treatment. Home Medications Home Medications Medication Instructions Recorded Confirmed Type amlodipine 10 mg tablet 10 mg PO HS #90 tab 11/12/18 06/06/19 Rx tamsulosin 0.4 mg PO HS #90 cap 01/02/19 06/06/19 Rx docusate sodium 100 mg capsule 200 mg PO QAM #30 cap 01/19/19 06/06/19 Rx gabapentin 100 mg capsule 200 mg PO HS #60 cap 02/04/19 06/06/19 Rx levothyroxine 200 mcg PO QAM 02/15/19 06/06/19 History lisinopril 40 mg tablet 40 mg PO DAILY@1200 #90 tab 02/26/19 06/06/19 Rx Boost Glucose Control 1 ea PO TIDM 03/18/19 06/06/19 History insulin detemir U-100 100) 100 15 units SUBCUT HS ml 03/25/19 06/06/19 History unit/mL subcutaneous solution rosuvastatin 20 mg PO HS 04/07/19 06/06/19 History levothyroxine 75 mcg PO DAILY 04/24/19 06/06/19 History pantoprazole 40 mg PO AMPM 04/25/19 06/06/19 History doxazosin 1 mg tablet 1 mg PO DAILY #30 tab 05/19/19 06/06/19 Rx B complex with C 20-folic acid 1 cap PO DAILY 05/23/19 06/06/19 History [Renal Caps] bumetanide 1 mg tablet 1 mg PO BID #60 tab 06/02/19 06/06/19 Rx calcium acetate 667 mg tablet 2,001 mg PO TIDM tab 06/02/19 06/06/19 History darbepoetin rasheed in polysorbat 60 60 mcg SUBCUT .COMPLEX #4 ml 06/02/19 06/06/19 Rx mcg/mL in polysorbate injection ferrous sulfate 325 mg (65 mg 325 mg PO BID #60 tab 06/02/19 06/06/19 Rx iron) tablet,delayed release hydralazine 25 mg tablet 50 mg PO Q8 tab 06/02/19 06/06/19 History insulin aspart U-100 [Novolog See Rx Instructions .ROUTE .COMPLEX 06/06/19 06/06/19 History U-100 Insulin aspart] labetalol 200 mg PO BID 06/06/19 06/06/19 History multivitamin 1 tab PO DAILY 06/06/19 06/06/19 History Allergies Allergy/AdvReac Type Severity Reaction Status Date / Time tramadol AdvReac Severe disorented Verified 06/06/19 14:12 ,falling down metformin AdvReac Intermediate CONFUSION Verified 06/06/19 14:12 Past Med/Surg History Medical History Anxiety Arthritis Asthma AVF (arteriovenous fistula) left arm BPH (benign prostatic hyperplasia) CAD (coronary artery disease) Chronic diastolic congestive heart failure Chronic kidney disease, stage IV (severe) dialysis - [facility], sat at [place] follow with dr herrera Colon, diverticulosis 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, with long-term current use of insulin COPD (chronic obstructive pulmonary disease) Depression Diabetic peripheral neuropathy 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) (Acute) GERD (gastroesophageal reflux disease) Hearing difficulty Hyperlipidemia LDL goal <70 Hypertension Hypothyroidism Memory loss Mitral regurgitation Obstructive sleep apnea uses oxygen 2 l nc at Pulmonary hypertension Secondary hyperparathyroidism of renal origin Uncontrolled daytime somnolence sleeps thru day and cant sleep at [facility] Surgical History H/O cardiac catheterization many years ago - over 10 years no stents follow with [facility] H/O esophagogastroduodenoscopy 02/16/19 and 03/2019 [facility]- Dr. Mando White. 50mg propofol, no issues. 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 Beliefs That Will Affect Care: None marital status: Current Living Situation: Spouse current occupational status: disabled current occupation: works part-time at [employer] Other Information That Helps Us Care for You: No Feels Safe at Home: Yes Safety Concerns: Feels Safe At This Time Smoking Status: Former smoker Tobacco Type: cigarettes ; Do You Dip or Chew Tobacco: No ; Number of Years Since Quit: 25 ; Second Hand Exposure: No ; Tobacco Cessation Education Requested by Patient: No Hx Alcohol Use: No Hx Substance Use: No Childhood Exposure to Second-Hand Smoke: No Other Diet Comment: regular caffeine: Yes during the past year weight has: remained stable Dental Care, Regularly: Yes Physical Activity Frequency: Does not Exercise Physical Activity Frequency Comment: limited due physical condition Seatbelt Use: sometimes Sunscreen Use: No Review of Systems See HPI for pertinent positives & negatives. and A total of 10 systems reviewed and were otherwise negative Physical Exam Vital Signs Vital Signs - 24 hr 06/06/19 13:03 06/06/19 13:44 06/06/19 13:45 Temperature 36.7 C Temperature Source Oral Pulse Rate - Lying Pulse Rate - Sitting Pulse Rate - Standing Pulse Rate 70 Pulse Rate [Apical] 96 H Pulse Rhythm Pulse Rhythm [Apical] Regular Pulse Strength Respiratory Rate 18 20 Respiratory Effort / Characteristics Non-Labored Spontaneous Non-Labored Spontaneous Respiratory Depth Normal Normal Respiratory Pattern Regular Blood Pressure - Lying Blood Pressure - Sitting Blood Pressure- Standing Blood Pressure 139/56 L Blood Pressure [Right Arm] 144/55 H Blood Pressure Mean 83 Blood Pressure Mean [Right Arm] 84 Blood Pressure Position Sitting Pulse Oximetry 94 96 96 Oxygen Delivery Method Room Air Room Air Room Air Sepsis Recent Fever Within 48 Hours No Sepsis New/Unexplained Change in Mental Status No Sepsis Action Taken by Nursing No Action Required 06/06/19 13:46 06/06/19 13:57 06/06/19 14:20 Temperature 36.9 C Temperature Source Oral Pulse Rate - Lying 68 Pulse Rate - Sitting 71 Pulse Rate - Standing 71 Pulse Rate 69 Pulse Rate [Apical] Pulse Rhythm Regular Pulse Rhythm [Apical] Pulse Strength Normal Respiratory Rate 16 Respiratory Effort / Characteristics Respiratory Depth Respiratory Pattern Blood Pressure - Lying 150/69 H Blood Pressure - Sitting 146/48 H Blood Pressure- Standing 141/45 H Blood Pressure 179/60 H Blood Pressure [Right Arm] Blood Pressure Mean 99 Blood Pressure Mean [Right Arm] Blood Pressure Position Lying Pulse Oximetry 96 94 Oxygen Delivery Method Room Air Sepsis Recent Fever Within 48 Hours Sepsis New/Unexplained Change in Mental Status Sepsis Action Taken by Nursing GENERAL: Patient is in no acute distress. HEENT: No acute trauma, normocephalic atraumatic, mucous membranes moist, no nasal congestion, no scleral icterus. NECK: No stridor, no adenopathy, no meningismus, trachea is midline. LUNGS: Crackles at the left base, no wheezing, no respiratory distress, equal breath sounds. HEART: Regular rate and irregular rhythm, subtle systolic murmur. ABDOMEN: Soft, nontender, bowel sounds positive, no hernias, no peritonitis. EXTREMITIES: No cyanosis, full range of motion of all the joints without pain or difficulty, no signs for acute trauma, moderate bilateral edema NEUROLOGIC: Oriented x 3, no acute motor or sensory deficits, no focal weakness. SKIN: No rash, no jaundice, no diaphoresis, pale. Course Course 1320: Past medical records reviewed. The patient was evaluated in room B12. A complete history and physical exam was performed. 1352: I reassessed the patient and received consent for blood transfusion. 1354: I reviewed the patient's case with Dr. Funes, [facility] Hospitalist. She will evaluate the patient for further management. Consultations Consultation #1: I reviewed the patient's case with Dr. Funes, [facility] Hospitalist. She will evaluate the patient for further management. Time: 01:54 Critical Care Time Critical Care Time: Yes Total Critical Care Time: 36 I have personally spent about 36 minutes of critical care time in the direct management of this patient. This includes bedside care, interpretation of diagnostic studies, and testing, discussion with consultants, patient, and family members, and other required patient management activities. This 36 minutes is in excess of all separately billable procedures. Medical Decision Making Differential Diagnosis Differential diagnosis includes: upper and lower gastrointestinal bleed, anemia, electrolyte imbalance, pneumonia, congestive heart failure, infection, myocardial infarction, cardiac ischemia, as well as others were entertained. Medical Records Attestation: I reviewed the patient's medical records. The patient was admitted to [place] on May 31, 2019 after he was sent from our facility. The patient was given 2 units of packed RBC here and 8 units of RBC at [place] (a total of 10 units). Home Medications Current Medication List: was personally reviewed by me Laboratory Data Attestation: I reviewed the patient's lab results. Result diagrams: 06/06/19 19:16 06/06/19 13:10 Lab Results 06/06/19 06/06/19 06/06/19 Range/Units 12:52 13:10 13:10 WBC 4.89 (4.8-10.8) K/uL RBC 2.17 L (4.7-6.1) M/uL Hgb 6.5 L* (14.0-18.0) g/dL Hct 20.4 L* (42-52) % MCV 94.0 (80-100) fL MCH 30.0 (25-34) pg MCHC 31.9 L (32-36) g/dL RDW Std Deviation 52.9 H (36.4-46.3) fL RDW Coeff of Jose C 15.4 H (11.5-14.5) % Plt Count 210 (130-400) K/uL MPV 9.6 (7.4-10.4) fL Immature Gran % (Auto) 0.4 % Neut % (Auto) 75.9 % Lymph % (Auto) 10.6 % [place] % (Auto) 9.4 % Eos % (Auto) 3.3 % Baso % (Auto) 0.4 % Immature Gran # (Auto) 0.02 (0.00-0.02) K/uL Neut # (Auto) 3.71 (1.4-6.5) K/uL Lymph # (Auto) 0.52 L (1.2-3.4) K/uL [place] # (Auto) 0.46 (0.11-0.59) K/uL Eos # (Auto) 0.16 (0-0.5) K/uL Baso # (Auto) 0.02 (0-0.2) K/uL RBC Morphology Unremarkable Sodium (136-145) mmol/L Potassium (3.5-5.1) mmol/L Chloride (98-107) mmol/L Carbon Dioxide (21-32) mmol/L Anion Gap (3-11) BUN (7-18) mg/dl Creatinine (0.6-1.4) mg/dl Est Cr Clr Drug Dosing Est GFR ( Amer) Est GFR (Non-Af Amer) BUN/Creatinine Ratio (10-20) Glucose (70-99) mg/dl Calcium (8.5-10.1) mg/dl Magnesium Cancelled Total Bilirubin (0.2-1) mg/dl AST (15-37) U/L ALT (12-78) U/L Alkaline Phosphatase (45-117) U/L Troponin I (0-0.045) ng/ml Total Protein (6.4-8.2) gm/dl Albumin (3.4-5.0) gm/dl Globulin (2.5-4.0) gm/dl Albumin/Globulin Ratio (0.9-2) TSH (0.300-4.500) uIu/ml Free T4 (0.8-1.6) ng/dl Blood Type B Positive Antibody Screen NEGATIVE Crossmatch See Detail 06/06/19 Range/Units 13:10 WBC (4.8-10.8) K/uL RBC (4.7-6.1) M/uL Hgb (14.0-18.0) g/dL Hct (42-52) % MCV (80-100) fL MCH (25-34) pg MCHC (32-36) g/dL RDW Std Deviation (36.4-46.3) fL RDW Coeff of Jose C (11.5-14.5) % Plt Count (130-400) K/uL MPV (7.4-10.4) fL Immature Gran % (Auto) % Neut % (Auto) % Lymph % (Auto) % [place] % (Auto) % Eos % (Auto) % Baso % (Auto) % Immature Gran # (Auto) (0.00-0.02) K/uL Neut # (Auto) (1.4-6.5) K/uL Lymph # (Auto) (1.2-3.4) K/uL [place] # (Auto) (0.11-0.59) K/uL Eos # (Auto) (0-0.5) K/uL Baso # (Auto) (0-0.2) K/uL RBC Morphology Sodium 138 (136-145) mmol/L Potassium 3.1 L (3.5-5.1) mmol/L Chloride 99 (98-107) mmol/L Carbon Dioxide 33 H (21-32) mmol/L Anion Gap 6.0 (3-11) BUN 32 H (7-18) mg/dl Creatinine 3.81 H (0.6-1.4) mg/dl Est Cr Clr Drug Dosing Not Reportable Est GFR ( Amer) 16.6 Est GFR (Non-Af Amer) 14.3 BUN/Creatinine Ratio 8.5 L (10-20) Glucose 183 H (70-99) mg/dl Calcium 8.6 (8.5-10.1) mg/dl Magnesium 1.7 L Total Bilirubin 0.3 (0.2-1) mg/dl AST 17 (15-37) U/L ALT 22 (12-78) U/L Alkaline Phosphatase 123 H (45-117) U/L Troponin I 0.090 H* (0-0.045) ng/ml Total Protein 5.8 L (6.4-8.2) gm/dl Albumin 2.2 L (3.4-5.0) gm/dl Globulin 3.6 (2.5-4.0) gm/dl Albumin/Globulin Ratio 0.6 L (0.9-2) TSH 16.700 H (0.300-4.500) uIu/ml Free T4 1.07 (0.8-1.6) ng/dl Blood Type Antibody Screen Crossmatch Imaging Data Radiologist's Impression: Radiology results as stated below per my review and the radiologist's interpretation: XR chest 1V portable CLINICAL HISTORY: weakness dyspnea COMPARISON STUDY: 05/23/2019 FINDINGS: Mild stable cardiomegaly. Chronic parenchymal prominence left lung base. Lungs otherwise appear clear. IMPRESSION: Chronic change. No acute process. ACT 112: Negative or not required by law. The above report was generated using voice recognition software. It may contain grammatical, syntax or spelling errors. Electronically signed by: Osmany Marte M.D. 06/06/2019 1:51 PM ECG Data Attestation: I personally reviewed and interpreted this ECG as follows: Indication: + weakness Rate (beats per minute): 70 Rhythm: + sinus rhythm ECG Intervals/blocks: + Right Bundle branch block ECG ST segments: + T-wave inversions (Inferior and Lateral leads) ECG Findings: + Other (QTC 505); no PVCs Comparison ECG Date: from (05/23/2019) Change: no significant change Blood Pressure Blood Pressure Findings: Elevated blood pressure Blood Pressure Disposition: further management by hospitalist [facility] Narrative There is no leukocytosis. The patient does have a low hemoglobin at 6.5. This is a drop from his recent testing. Platelet count was normal. There was a high creatinine consistent with his dialysis need. No worrisome electrolyte abnorma lity in need of emergent correction. Troponin was mildly elevated, this is chronic for the patient. EKG shows a sinus rhythm with a right bundle branch block, there were some chronic EKG changes but no evidence for acute CT. TSH was elevated, the T4 was normal. There was a mildly elevated alk phos, the bilirubin was normal. Chest film did not show pneumonia or CHF. The patient presents with weakness and shortness of breath. He has a known ongoing chronic GI bleed. He has received multiple transfusions in the past to offset his lower hemoglobin value. The patient was ordered for 1 unit of blood for transfusion. He did consent to the transfusion. The patient is not hypotensive. He is not tachycardic. He is not febrile, he does not seem toxic. I do think a hospital stay is warranted. He may require more than just one unit of blood. This has been an ongoing issue for him. I spoke to the patient and case management. The on-call hospitalist was consulted. Impression & Plan SOB (shortness of breath), Anemia, Weakness, GI bleed, Elevated troponin Discharge Plan Visit Data *Final* Discharge Date/Time: 06/06/19 17:31 Chief Complaint: Weakness Stated Complaint: WEAKNESS - SUPPOSED TO GET BLOOD SATURDAY ED Provider: Shayan Klein Discharge Problem: SOB (shortness of breath), Anemia, Weakness, GI bleed, Elevated troponin Patient Disposition: Admitted As Inpatient Discharge Instructions Interventions: ED Discharge Assessment Last Done: 06/06/19 17:31 Discharge Problem: Anemia Qualifiers: Anemia type: unspecified type Qualified Code(s): D64.9 - Anemia, unspecified GI bleed Qualifiers: GI bleed type/associated pathology: unspecified gastrointestinal hemorrhage type Qualified Code(s): K92.2 - Gastrointestinal hemorrhage, unspecified The scribe's documentation has been prepared under my direction and personally reviewed by me in its entirety. I confirm that the note above accurately reflects all work, treatment, procedures, and medical decision making performed by me.
[2019-06-06] MEDS ORDERED: DEXTROSE 50% 50 ML SYRINGE IV PRN (18:43)
[2019-06-06] MEDS ORDERED: CARBOHYDRATES FOR HYPOGLYCEMIA PO PRN (18:43)
[2019-06-06] MEDS ORDERED: ACETAMINOPHEN 325 MG TAB PO PRN (18:43)
[2019-06-06] MEDS ORDERED: GLUCOSE 40% GEL 15 GM TUBE PO PRN (18:43)
[2019-06-06] MEDS ORDERED: GLUCAGON FOR INJ 1 MG VIAL SQ PRN (18:43)
[2019-06-06] MEDS ORDERED: [UNRECOGNIZED DRUG - OTHER] PO SCH (18:43)
[2019-06-06] MEDS ORDERED: ONDANSETRON INJ 2 MG/ML 2 ML VIAL IV PRN (18:43)
[2019-06-06] MEDS ORDERED: GLUCOSE 10 TABS/TUBE PO PRN (18:43)
[2019-06-06] MEDS ORDERED: POTASSIUM CHLORIDE 20 MEQ TABCR PO STA (19:17)
[2019-06-06 19:25] LABS: Hematocrit (blood only) 22.2 % (42-52); Hemoglobin 7.1 g/dL (14.0-18.0)
[2019-06-06] MEDS ORDERED: MAGNESIUM SULFATE / D5W 1 GM/100 ML BAG IV ONE (19:30)
[2019-06-06] MEDS: TAMSULOSIN HCL 0.4 MG CAP PO SCH (20:57)
[2019-06-06] MEDS: CALCIUM ACETATE 667 MG CAP PO SCH (20:58)
[2019-06-06] MEDS: GABAPENTIN 100 MG CAP PO SCH (20:58)
[2019-06-06] MEDS: BUMETANIDE 1 MG TAB PO SCH (20:59)
[2019-06-06] MEDS ORDERED: PANTOprazole 40 MG TAB PO SCH (21:00)
[2019-06-06] MEDS: FERROUS SULFATE 325 MG TAB PO SCH (21:00)
[2019-06-06] MEDS: ROSUVASTATIN CALCIUM 20 MG TAB PO SCH (21:00)
[2019-06-06] MEDS ORDERED: INSULIN DETEMIR FLEXPEN/FLEX TOUCH 100 UNITS/ML 3ML SC SCH (21:00)
[2019-06-06] MEDS: INSULIN ASPART 100 UNITS/ML 3 ML PEN SC SCH ×2 (21:01→22:08)
[2019-06-06] MEDS: INSULIN DETEMIR FLEXPEN/FLEX TOUCH 100 UNITS/ML 3ML SC SCH (21:02)
[2019-06-07 00:47] LABS: Hematocrit (blood only) 23.5 % (42-52); Hemoglobin 7.8 g/dL (14.0-18.0)
[2019-06-07] MEDS: LEVOTHYROXINE SODIUM 75 MCG TABLET PO SCH (05:39)
[2019-06-07] MEDS: LEVOTHYROXINE SODIUM 200 MCG TABLET PO SCH (05:39)
[2019-06-07 07:00] LABS: Hemoglobin 6.9 g/dL (14.0-18.0); Mean Corpuscular Hgb Conc 32.9 g/dL (32-36); Mean Corpuscular Volume 91.3 fL (80-100); Platelet Count 196 K/uL (130-400); RDW Coefficient of Variation 15.7 % (11.5-14.5); RDW Standard Deviation 52.2 fL (36.4-46.3); White Blood Count 3.96 K/uL (4.8-10.8)
[2019-06-07 07:35] LABS: Albumin Globulin Ratio 0.7 (0.9-2); Albumin Level 2.3 gm/dl (3.4-5.0); BUN Creatinine Ratio 8.7 (10-20); Bilirubin,Total 0.6 mg/dl (0.2-1); Calcium 9.1 mg/dl (8.5-10.1); Creatinine Clr Calc Pharmacy 14.1 ml/min; Est GFR (African American) 11.1; Est GFR (Non-African American) 9.6; Globulin 3.2 gm/dl (2.5-4.0); Magnesium 2.1 mg/dl (1.8-2.4); Phosphorus 3.6 mg/dl (2.5-4.9); Total Protein 5.5 gm/dl (6.4-8.2)
[2019-06-07] MEDS ORDERED: SODIUM CHLORIDE 0.9% 250 ML IV PRN (07:52)
[2019-06-07] MEDS ORDERED: PANTOprazole 80 MG in DEXTROSE 5% 100 ML IV SCH (08:00)
[2019-06-07 08:02] LABS: Potassium 3.6 mmol/L (3.5-5.1)
[2019-06-07] MEDS: CALCIUM ACETATE 667 MG CAP PO SCH ×3 (08:49→17:11)
[2019-06-07] MEDS: BUMETANIDE 1 MG TAB PO SCH ×2 (08:49→19:48)
[2019-06-07] MEDS: guaiFENesin 600 MG TABCR PO SCH ×2 (08:49→20:41)
[2019-06-07] MEDS: MULTIVITAMIN TAB PO SCH (08:49)
[2019-06-07] MEDS: FLUTICASONE PROPIONATE NA SPR 16 GM BTL SCH ×2 (08:50→20:42)
[2019-06-07] MEDS: NEPHROCAPS PO SCH (08:50)
[2019-06-07] MEDS: FERROUS SULFATE 325 MG TAB PO SCH ×2 (08:50→20:42)
[2019-06-07] MEDS: DOCUSATE SODIUM 100 MG CAP PO SCH (08:50)
[2019-06-07] MEDS: DOXAZOSIN MESYLATE 1 MG TAB PO SCH (08:51)
[2019-06-07] MEDS: INSULIN ASPART 100 UNITS/ML 3 ML PEN SC SCH ×4 (08:52→20:44)
[2019-06-07] MEDS: PANTOprazole 40 MG in DEXTROSE 5% 100 ML IV SCH ×4 (09:05→23:31)
--- NOTE | 2019-06-07 10:10 | Nephrology Consultation ---
Date of Consultation June 07, 2019 Assessment & Plan (1) ESRD (end stage renal disease) on dialysis: ESRD due to diabetic nephropathy. Dialyzes TTS at [facility]. Admitted due to recurrent UGI bleeding. PMH: HTN, AODM, vascular dementia, IgG monoclonal gammopathy, EFREN, BPH, hypothyroidism, and CHF w/ diastolic dysfunction. -- Volume status and electrolyte balance acceptable at this time. No acute indication for HD today -- Will recheck PRP, H&H in am -- Protect L arm HD access (2) GAVE (gastric antral vascular ectasia): -- Recurrent UGI bleeding. Currently receiving blood transfusion -- Continue Protonix gtt -- Await GI recommendations History of Present Illness Reason for Consultation: ESRD on IHD Attending Physician: Prashanth Rausch History of Present Illness Mr. Mcintyre is a 78 year old white male who is seen at the request of Dr. Schulz to provide inpatient HD and assist w/ medical management. Medical records in the EMR were reviewed today and are summarized as follows: Mr. Mcintyre has ESRD due to diabetic nephropathy. He has been on IHD since 12/16 ([facility] TTS 4hr 2K 2.5Ca F-200NR EDW 97.5 kg - primary Guest Relations Receptionist Dr. Briceno). His medical history is significant for HTN, AODM, vascular dementia, IgG monoclonal gammopathy, EFREN, BPH, hypothyroidism, and CHF w/ diastolic dysfunction. Mr. Mcintyre has required several recent hospitalizations due to anemia and weakness. EGD revealed vascular ectasis of the gastric antrum. Cauterization was provided but melena recurred. Mr. Mcintyre was hospitalized 05/21 due to GI bleeding. He was transferred to [facility] 05/23 - 05/31. He required transfusion w/ 8 units PRBC and EGD x2. Cauterization of gastric AVM's was again carried out. Mr. Mcintyre was dialyzed as an outpatient yesterday. He c/o fatigue. Hgb was found to be ~ 7.0. Arrangements were made for blood transfusion Saturday. Unfortunately he continued to experience melena. He also developed weakness and fatigue and presented to the [facility] ED for further evaluation. Hgb upon admission was 6.5. Mr. Mcintyre has been admitted for blood transfusion and GI evaluation. Allergies Allergy/AdvReac Type Severity Reaction Status Date / Time tramadol AdvReac Severe disorented Verified 06/06/19 14:12 ,falling down metformin AdvReac Intermediate CONFUSION Verified 06/06/19 14:12 Home Medications Home Medications Medication Instructions Recorded Confirmed Type amlodipine 10 mg tablet 10 mg PO HS #90 tab 11/12/18 06/06/19 Rx tamsulosin 0.4 mg PO HS #90 cap 01/02/19 06/06/19 Rx docusate sodium 100 mg capsule 200 mg PO QAM #30 cap 01/19/19 06/06/19 Rx gabapentin 100 mg capsule 200 mg PO HS #60 cap 02/04/19 06/06/19 Rx levothyroxine 200 mcg PO QAM 02/15/19 06/06/19 History lisinopril 40 mg tablet 40 mg PO DAILY@1200 #90 tab 02/26/19 06/06/19 Rx Boost Glucose Control 1 ea PO TIDM 03/18/19 06/06/19 History insulin detemir U-100 100) 100 15 units SUBCUT HS ml 03/25/19 06/06/19 History unit/mL subcutaneous solution rosuvastatin 20 mg PO HS 04/07/19 06/06/19 History levothyroxine 75 mcg PO DAILY 04/24/19 06/06/19 History pantoprazole 40 mg PO AMPM 04/25/19 06/06/19 History doxazosin 1 mg tablet 1 mg PO DAILY #30 tab 05/19/19 06/06/19 Rx B complex with C 20-folic acid 1 cap PO DAILY 05/23/19 06/06/19 History [Renal Caps] bumetanide 1 mg tablet 1 mg PO BID #60 tab 06/02/19 06/06/19 Rx calcium acetate 667 mg tablet 2,001 mg PO TIDM tab 06/02/19 06/06/19 History darbepoetin rasheed in polysorbat 60 60 mcg SUBCUT .COMPLEX #4 ml 06/02/19 06/06/19 Rx mcg/mL in polysorbate injection ferrous sulfate 325 mg (65 mg 325 mg PO BID #60 tab 06/02/19 06/06/19 Rx iron) tablet,delayed release hydralazine 25 mg tablet 50 mg PO Q8 tab 06/02/19 06/06/19 History insulin aspart U-100 [Novolog See Rx Instructions .ROUTE .COMPLEX 06/06/19 06/06/19 History U-100 Insulin aspart] labetalol 200 mg PO BID 06/06/19 06/06/19 History multivitamin 1 tab PO DAILY 06/06/19 06/06/19 History Patient History Medical History Anxiety Arthritis Asthma AVF (arteriovenous fistula) left arm BPH (benign prostatic hyperplasia) CAD (coronary artery disease) Chronic diastolic congestive heart failure Chronic kidney disease, stage IV (severe) dialysis - [facility], sat at [facility] follow with dr herrera Colon, diverticulosis 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, with long-term current use of insulin COPD (chronic obstructive pulmonary disease) Depression Diabetic peripheral neuropathy 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 Mando White. 50mg propofol, no issues. H/O hemorrhoidectomy History of esophagogastroduodenoscopy (EGD) x 2 at [facility] during admission from 05/23/19-05/30/19 Hx of cholecystectomy Family History Unknown Myocardial infarction Diabetes Mother Diabetes Gallbladder disease Hypertension Breast cancer late 70s Father Diabetes Hypertension Brother Diabetes Hypertension Kidney disease Social History Preferred Language: Luxembourgish Communication Ability: Effective Visual Impairment: No Limitations Hearing Ability: Hard of Hearing Manager Creative Required: No Beliefs That Will Affect Care: None marital status: Current Living Situation: Spouse current occupational status: disabled current occupation: works part-time at [employer] Other Information That Helps Us Care for You: No Feels Safe at Home: Yes Safety Concerns: Feels Safe At This Time Smoking Status: Former smoker Tobacco Type: cigarettes ; Do You Dip or Chew Tob acco: No ; Number of Years Since Quit: 25 ; Second Hand Exposure: No ; Tobacco Cessation Education Requested by Patient: No Hx Alcohol Use: No Hx Substance Use: No Childhood Exposure to Second-Hand Smoke: No Other Diet Comment: regular caffeine: Yes during the past year weight has: remained stable Dental Care, Regularly: Yes Physical Activity Frequency: Does not Exercise Physical Activity Frequency Comment: limited due physical condition Seatbelt Use: sometimes Sunscreen Use: No Review of Systems Constitutional: + weakness; no fever Eyes: no worsening vision and no problem reported Ear, Nose, Mouth, Throat: no problem reported Respiratory: no cough and no dyspnea Cardiovascular: no chest pain, no palpitations and no edema Gastrointestinal: no abdominal pain, no nausea, no vomiting and no diarrhea/loose stools Musculoskeletal: no back pain Integumentary: no rash Neurologic: no falls, no dizziness and no confusion Physical Exam Constitutional: not in distress Eyes: PERRL, conjunctivae normal, anicteric sclerae ENMT: external ear and nose normal, oropharynx normal Neck: trachea midline, no thyromegaly Respiratory: normal respiratory effort, lungs clear to auscultation Cardiovascular: RRR, no murmur, no edema Extremities: + AV fistula (+ bruit) Gastrointestinal (Abdomen): normal bowel sounds, soft, nontender, no hepatosplenomegaly Musculoskeletal: Extremities: no cyanosis Skin: no rashes, warm and dry Neurologic: awake; not confused Results & Data Vital Signs (Past 12 Hours) Vital Signs Temp Pulse Pulse Resp BP BP Pulse Ox 06/07/19 09:18 36.7 C 60 18 178/80 H 94 06/07/19 09:03 36.8 C 62 18 175/74 H 94 06/07/19 08:47 36.7 C 66 18 169/72 H 99 06/07/19 08:37 36.7 C 66 18 169/72 H 99 06/07/19 07:18 36.7 C 56 L 18 156/60 H 99 06/07/19 03:33 36.6 C 65 19 167/54 H 97 06/06/19 23:19 36.5 C 60 18 149/60 H 91 06/06/19 22:38 36.7 C 66 18 169/72 H 90 06/06/19 22:08 36.8 C 79 16 166/76 H 91 Laboratory Results Laboratory Tests 06/07/19 06/07/19 06:06 06:06 WBC 3.96 L Hgb 6.9 L* Hct 21.0 L Plt Count 196 Sodium 139 Potassium 3.6 D Chloride 101 Carbon Dioxide 33 H BUN 46 H Creatinine 5.32 H* D Glucose 120 H Diagnostic Findings CXR 06/06/19: No acute process PG Care Time/CCT Total # of Minutes Spent Total Time Spent with Patient: Total time spent is greater than 50% in coordination of care (as documented) at patient's floor/unit and/or counseling patient:
--- NOTE | 2019-06-07 12:56 | Electrocardiogram Report ---
Test Reason : Blood Pressure : / mmHG Vent. Rate : 070 BPM Atrial Rate : 070 BPM P-R Int : 198 ms QRS Dur : 174 ms QT Int : 468 ms P-R-T Axes : 084 094 -67 degrees QTc Int : 505 ms Sinus rhythm with Premature atrial complexes Right bundle branch block T wave abnormality, consider inferolateral ischemia Abnormal ECG When compared with ECG of 23-MAY-2019 06:29, Premature atrial complexes are now Present Confirmed by Shawn Altamirano ([id number]) on 06/07/2019 12:55:58 PM Referred By: REFERRED SELF Confirmed By:Shawn Altamirano
--- NOTE | 2019-06-07 13:38 | Gastrointestinal Consultation ---
Date of Consultation June 07, 2019 Assessment & Plan (1) GI bleed: Explained to patient and family I am not sure what I can do to prevent GI bleeding. We had working diagnosis of GAVE and he had multiple session of APC. He has spontaneous mucosal bleeding on contact noted on EGD at [place]. We cannot use carafate as the aluminum can accumulate and cause toxicity in patients with renal failure on dialysis. Continue PPI. Tentative EGD tomorrow if Dr White who is on service tomorrow is agreeable. I am going to order a hematology consult to look into platelet dysfunction as a cause of continued bleeding. There is known platelet dysfuntion on patients requiring diaylsis. Anemia---I am concerned about other reasons for anemia since he had 2 units of blood without incrementing H and H but no melena. Check a/p CT to look for retroperitoneal bleed. Will also ask entry level accounting clerk if patient could be hemolyzing and also if he is on appropriate hematopoetic medication Pancreast cyts(s)--he was noted 04/2019 to have 2 cysts and at [place] 1 cyst.---MRI at some point to work this up cirrrhosis. ---CT 04/2019 c/w cirrhosis, --elastrography at [place] with conflicting results--he does have outpt appt with hepatologis at [place]. I am kamla off service tomorrow 06/08/[address] White is assuming GI care then. History of Present Illness Reason for Consultation: GI bleeding Requesting Physician: Prashanth Rausch Attending Physician: Prashanth Rausch History of Present Illness CC weak, black stools HPI Pt known to our service. 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 Hx of of colon polyps with most recent colonoscopy noted 08/2018 at [place] had 5 tubular adenomas in TC and AC removed. He had EGD/SB enteroscopy ( to mid jejunum) at [place] 08/2018 showing esophageal lipoma, multiple gastric polyps and gastric erythema path neg and duodenal diverticulum. EGD by Dr White 02/15/19 showing bleeding duodenal AVMS which were cauterized. EGD 03/06/19 AVMS with fresh heme noted cauterized with APC. EGD 03/19/19 multiple AVMs in stomach with oozing blood APC. Pt has recurrent admissions for melena and anemia. He presented to ER 05/23/19 with same and transferred to [place] for care. Reviewed chart from there and he had EGD 05/25/19 mult gastric polyps, few erosions and small ulcers preppyloric, lager area of denuded mucosa in stomach, diffuse oozing noted and hemospray used. Hed had repeat EGD 05/28/19 using cap and noted lower esophageal diverticulum, large duodenal diverticulum and spontaneous oozing from gastric mucosa on contract with bipolar cautery used. 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 CTA of a/p 06/25/18 showed no evidence of gastric vascular abnormality and 1.3 cm pancreas tail cyst. He had liver elastrography which showe coarse architecture which is consistent with cirrhosis but only F2 fibrosis score. He had peripheral blood smear 05/24/19 showing reticulocyte colony index inadequate for degree of anemia. Hgb on DC 7.5. He is on Aranesp to help blood production. He presented to dialysis yesterday with Hgb 6.5, weak, shortness of breath. He states he sees black stools off and on. He had 2 units of blood with hgb this am 6.9 but stool this am brown per his report. He denies use of NSAIDS except for Tylenol. He denies falling and has not noticed any large hematoma on his body. Allergies Allergy/AdvReac Type Severity Reaction Status Date / Time tramadol AdvReac Severe disorented Verified 06/06/19 14:12 ,falling down metformin AdvReac Intermediate CONFUSION Verified 06/06/19 14:12 Home Medications Home Medications Medication Instructions Recorded Confirmed Type amlodipine 10 mg tablet 10 mg PO HS #90 tab 11/12/18 06/06/19 Rx tamsulosin 0.4 mg PO HS #90 cap 01/02/19 06/06/19 Rx docusate sodium 100 mg capsule 200 mg PO QAM #30 cap 01/19/19 06/06/19 Rx gabapentin 100 mg capsule 200 mg PO HS #60 cap 02/04/19 06/06/19 Rx levothyroxine 200 mcg PO QAM 02/15/19 06/06/19 History lisinopril 40 mg tablet 40 mg PO DAILY@1200 #90 tab 02/26/19 06/06/19 Rx Boost Glucose Control 1 ea PO TIDM 03/18/19 06/06/19 History insulin detemir U-100 100) 100 15 units SUBCUT HS ml 03/25/19 06/06/19 History unit/mL subcutaneous solution rosuvastatin 20 mg PO HS 04/07/19 06/06/19 History levothyroxine 75 mcg PO DAILY 04/24/19 06/06/19 History pantoprazole 40 mg PO AMPM 04/25/19 06/06/19 History doxazosin 1 mg tablet 1 mg PO DAILY #30 tab 05/19/19 06/06/19 Rx B complex with C 20-folic acid 1 cap PO DAILY 05/23/19 06/06/19 History [Renal Caps] bumetanide 1 mg tablet 1 mg PO BID #60 tab 06/02/19 06/06/19 Rx calcium acetate 667 mg tablet 2,001 mg PO TIDM tab 06/02/19 06/06/19 History darbepoetin rasheed in polysorbat 60 60 mcg SUBCUT .COMPLEX #4 ml 06/02/19 06/06/19 Rx mcg/mL in polysorbate injection ferrous sulfate 325 mg (65 mg 325 mg PO BID #60 tab 06/02/19 06/06/19 Rx iron) tablet,delayed release hydralazine 25 mg tablet 50 mg PO Q8 tab 06/02/19 06/06/19 History insulin aspart U-100 [Novolog See Rx Instructions .ROUTE .COMPLEX 06/06/19 06/06/19 History U-100 Insulin aspart] labetalol 200 mg PO BID 06/06/19 06/06/19 History multivitamin 1 tab PO DAILY 06/06/19 06/06/19 History Patient History Medical History Anxiety Arthritis Asthma AVF (arteriovenous fistula) left arm BPH (benign prostatic hyperplasia) CAD (coronary artery disease) Chronic diastolic congestive heart failure Chronic kidney disease, stage IV (severe) dialysis - [facility], sat at [place] follow with dr nazareen Colon, diverticulosis 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, with long-term current use of insulin COPD (chronic obstructive pulmonary disease) Depression Diabetic peripheral neuropathy 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 Mando White. 50mg propofol, no issues. H/O hemorrhoidectomy History of esophagogastroduodenoscopy (EGD) x 2 at [facility] during admission from 05/23/19-05/30/19 Hx of cholecystectomy Family History Unknown Myocardial infarction Diabetes Mother Diabetes Gallbladder disease Hypertension Breast cancer late 70s Father Diabetes Hypertension Brother Diabetes Hypertension Kidney disease Social History Preferred Language: Tamaz[place] Communication Ability: Effective Visual Impairment: No Limitations Hearing Ability: Hard of Hearing Military Communications Specialist Required: No Beliefs That Will Affect Care: None marital status: Current Living Situation: Spouse current occupational status: disabled current occupation: works part-time at [employer] Other Information That Helps Us Care for You: No Feels Safe at Home: Yes Safety Concerns: Feels Safe At This Time Smoking Status: Former smoker Tobacco Type: cigarettes ; Do You Dip or Chew Tobacco: No ; Number of Years Since Quit: 25 ; Second Hand Exposure: No ; Tobacco Cessation Education Requested by Patient: No Hx Alcohol Use: No Hx Substance Use: No Childhood Exposure to Second-Hand Smoke: No Other Diet Comment: regular caffeine: Yes during the past year weight has: remained stable Dental Care, Regularly: Yes Physical Activity Frequency: Does not Exercise Physical Activity Frequency Comment: limited due physical condition Seatbelt Use: sometimes Sunscreen Use: No Review of Systems Review of Systems: All systems reviewed & are unremarkable except as noted in HPI & below Physical Exam Constitutional: WD/WN, vitals as above Eyes: PERRL, conjunctivae normal, anicteric sclerae ENMT: Ears: no hearing impairment Neck: normal visual inspection and trachea midline Respiratory: normal respiratory effort, lungs clear to auscultation Cardiovascular: RRR, no murmur, no edema Gastrointestinal (Abdomen): normal bowel sounds, soft, nontender, no hepatosplenomegaly Skin: normal turgor Neurologic: PERRL, EOMI, accommodation nl, no face palsy, no dysarthria Psychiatric: A+Ox3, euthymic affect Results & Data Vital Signs (Past 12 Hours) Vital Signs Temp Pulse Pulse Resp BP BP Pulse Ox 06/07/19 10:56 36.7 C 64 18 188/79 H 96 06/07/19 10:55 36.7 C 60 18 190/82 H 97 06/07/19 10:48 36.8 C 61 18 163/105 H 95 06/07/19 09:48 36.8 C 60 18 168/72 H 95 06/07/19 09:18 36.7 C 60 18 178/80 H 94 06/07/19 09:03 36.8 C 62 18 175/74 H 94 06/07/19 08:47 36.7 C 66 18 169/72 H 99 06/07/19 08:37 36.7 C 66 18 169/72 H 99 06/07/19 07:18 36.7 C 56 L 18 156/60 H 99 06/07/19 03:33 36.6 C 65 19 167/54 H 97 (1) GI bleed GI bleed type/associated pathology: unspecified gastrointestinal hemorrhage type Qualified Code(s): K92.2 - Gastrointestinal hemorrhage, unspecified
[2019-06-07 14:01] LABS: Hematocrit (blood only) 27.8 % (42-52); Hemoglobin 8.8 g/dL (14.0-18.0)
--- NOTE | 2019-06-07 14:23 | CT Scan Report ---
CT OF THE ABDOMEN AND PELVIS WITHOUT CONTRAST CLINICAL HISTORY: anemia, rule out retroperitoneal hemorrhage COMPARISON STUDY: CT of the abdomen and pelvis April 27, 2019. TECHNIQUE: Axial images of the abdomen and pelvis were obtained without IV contrast. Images were revi ewed in the axial, sagittal, and coronal planes. Automated exposure control was utilized for the john dy. A dose lowering technique was utilized adhering to the principles of ALARA. FINDINGS: Heart is moderately enlarged. There is trace abdominal and pelvic ascites. A right hepatic lobe lesion is unchanged. This favors a cyst. A caudate lobe lesion is also unchanged. This favors a cyst but is suboptimally assessed on this unenhanced exam. Mild symmetrically is unchanged. Adrenal g lands and pancreas are unchanged with exception of a small cystic lesion within the pancreatic body f avors a side branch IPMN. This is unchanged. Is no hydronephrosis. There is moderate bilateral renal cortical thinning. Water attenuation bilateral renal lesions are suboptimally assessed on this unenha nced exam but favor cysts. Bladder wall thickening with adjacent infiltration is unchanged. There is no evidence for a bowel obstruction. Colonic diverticulosis without evidence for acute diverticulitis is noted. There is no pneumoperitoneum or hemoperitoneum. There is no retroperitoneal hematoma. No s uspicious osseous lesions are present. This extensive atherosclerotic plaque of the abdominal aorta a nd branch vessels. There is no aneurysmal dilatation. Small amount of fluid within a right inguinal h ernia is noted. Large diverticulum of the duodenum are noted. IMPRESSION: 1. No retroperitoneal hematoma. No acute process within the abdomen or pelvis on unenhanced exam. 2. Colonic diverticulosis acute diverticulitis. 3. Possible early cirrhosis. Trace ascites. Stable mild splenomegaly. 4. Bladder wall thickening which is similar to prior exams but could be correlated with urinalysis. ACT 112: Negative or not required by law. Electronically signed by: Marcus Salazar M.D. 06/07/2019 2:21 PM
--- NOTE | 2019-06-07 18:40 | Hospitalist Progress Note ---
Date of Service June 07, 2019 Assessment & Plan (1) Acute blood loss anemia: Presumed 2nd to upper GI bleeding. s/p 2 units PRBCs last night. Had EGD 04/[address] [facility] with [address] White from [facility]. During the April EGD he had numerous gastric polyps and numerous angioectasia s. Treated with APC. Then, s/p 2 EGDs at [place] 1-2 weeks ago -- 05/25 and 05/28 (see this note for details of those endoscopies). Hb this am again <7. Tx an additional unit of PRBCs now. T/C 2 units for stand-by. NPO. PPI drip. GI consult requested ([facility]) -- care d/w Dr Bangura. Repeat EGD? Serial H/H's. Recheck ferritin, b12, folate. (2) Upper gastrointestinal bleed: see "acute blood loss anemia" above. Serial H/H's. Tx for Hb <7. GI consult. PPI drip. NPO. (3) GAVE (gastric antral vascular ectasia): as seen in April and May EGDs. GI recommends checking for other causes of anemia - especially hemolysis. T. bili wnl. Check haptoglobin and LDH. Check retic count. Heme/onc consult also recommended by GI. (4) Obstructive sleep apnea: (5) Hypothyroidism: last few TSH checks have all been high. noncompliance? medical record suggests h/o noncompliance. would simply continue levothyroxine 275mcg daily. encourage compliance. repeat TSH 3-4 weeks. (6) Hypertension: cont home meds (7) ESRD (end stage renal disease) on dialysis: nephrology consult requested for HD needs. scheduled: //Sat. cont calcium acetate TID w/ meals. (8) Diabetes: Glycemic consult placed to pharmacy. Appreciate their assistance. Control adequate at this time. (9) Depression: noted (10) COPD (chronic obstructive pulmonary disease): no exacerbation at this time Subjective patient states that several days after being d/c from [place] (was d/c on 05-31 per records) he became weak again, dyspneic, and simply felt poorly. was having melena stools again. records show he had EGD on 05/25 and 05/28. 05/25 EGD showed gastric ulcers/erosions. Coffee-ground material was found in duodenum. 05/28 EGD - friable and erythematous gastric mucosa seen. ?gastropathy from [address]? received 8 units PRBCs during that stay. since re-admission here he has received 2 units PRBCs. Review of Systems Constitutional: no fever Respiratory: + dyspnea on exertion Cardiovascular: no chest pain, no dyspnea at rest, no orthopnea and no paroxysmal nocturnal dyspnea Gastrointestinal: no abdominal pain, no nausea and no vomiting Physical Exam Constitutional: no acute distress and no altered mental status ENMT: external ear and nose normal, oropharynx normal Respiratory: normal respiratory effort, lungs clear to auscultation Cardiovascular: Rate/Rhythm: regular rate and regular rhythm Heart Sounds: normal S1 and normal S2 Vessels: posterior tibial pulses present and dorsalis pedis pulses present; no JVD Extremities: + AV fistula (left distal arm ); no edema Gastrointestinal (Abdomen): normal bowel sounds, soft, nontender, no hepatosplenomegaly Skin: + pallor Psychiatric: A+Ox3, euthymic affect Results & Data Vital Signs (Past 12 Hours) Vital Signs Temp Pulse Pulse Resp BP BP Pulse Ox 06/07/19 15:09 36.6 C 64 18 176/63 H 92 06/07/19 10:56 36.7 C 64 18 188/79 H 96 06/07/19 10:55 36.7 C 60 18 190/82 H 97 06/07/19 10:48 36.8 C 61 18 163/105 H 95 06/07/19 09:48 36.8 C 60 18 168/72 H 95 06/07/19 09:18 36.7 C 60 18 178/80 H 94 06/07/19 09:03 36.8 C 62 18 175/74 H 94 06/07/19 08:47 36.7 C 66 18 169/72 H 99 06/07/19 08:37 36.7 C 66 18 169/72 H 99 06/07/19 07:18 36.7 C 56 L 18 156/60 H 99 Laboratory Results Laboratory Results - last 24 hr 06/06/19 06/06/19 06/06/19 12:52 19:16 20:11 WBC RBC Hgb 7.1 L Hct 22.2 L MCV MCH MCHC RDW Std Deviation RDW Coeff of Jose C Plt Count MPV Sodium Potassium Chloride Carbon Dioxide Anion Gap BUN Creatinine Est Cr Clr Drug Dosing Est GFR ( Amer) Est GFR (Non-Af Amer) BUN/Creatinine Ratio Glucose POC Glucose 145 H Calcium Phosphorus Magnesium Total Bilirubin AST ALT Alkaline Phosphatase Total Protein Albumin Globulin Albumin/Globulin Ratio Blood Type B Positive Antibody Screen NEGATIVE Crossmatch See Detail 06/07/19 06/07/19 06/07/19 00:34 06:06 06:06 WBC 3.96 L RBC 2.30 L Hgb 7.8 L 6.9 L* Hct 23.5 L 21.0 L MCV 91.3 MCH 30.0 MCHC 32.9 RDW Std Deviation 52.2 H RDW Coeff of Jose C 15.7 H Plt Count 196 MPV 10.0 Sodium 139 Potassium 3.6 D Chloride 101 Carbon Dioxide 33 H Anion Gap 5.0 BUN 46 H Creatinine 5.32 H* D Est Cr Clr Drug Dosing 14.1 Est GFR ( Amer) 11.1 Est GFR (Non-Af Amer) 9.6 BUN/Creatinine Ratio 8.7 L Glucose 120 H POC Glucose Calcium 9.1 Phosphorus 3.6 Magnesium 2.1 Total Bilirubin 0.6 AST 15 ALT 19 Alkaline Phosphatase 100 Total Protein 5.5 L Albumin 2.3 L Globulin 3.2 Albumin/Globulin Ratio 0.7 L Blood Type Antibody Screen Crossmatch 06/07/19 06/07/19 06/07/19 07:15 11:19 13:45 WBC RBC Hgb 8.8 L Hct 27.8 L MCV MCH MCHC RDW Std Deviation RDW Coeff of Jose C Plt Count MPV Sodium Potassium Chloride Carbon Dioxide Anion Gap BUN Creatinine Est Cr Clr Drug Dosing Est GFR ( Amer) Est GFR (Non-Af Amer) BUN/Creatinine Ratio Glucose POC Glucose 126 H 140 H Calcium Phosphorus Magnesium Total Bilirubin AST ALT Alkaline Phosphatase Total Protein Albumin Globulin Albumin/Globulin Ratio Blood Type Antibody Screen Crossmatch 06/07/19 16:14 WBC RBC Hgb Hct MCV MCH MCHC RDW Std Deviation RDW Coeff of Jose C Plt Count MPV Sodium Potassium Chloride Carbon Dioxide Anion Gap BUN Creatinine Est Cr Clr Drug Dosing Est GFR ( Amer) Est GFR (Non-Af Amer) BUN/Creatinine Ratio Glucose POC Glucose 166 H Calcium Phosphorus Magnesium Total Bilirubin AST ALT Alkaline Phosphatase Total Protein Albumin Globulin Albumin/Globulin Ratio Blood Type Antibody Screen Crossmatch PG Care Time/CCT Total # of Minutes Spent Total Time Spent with Patient: Total time spent is greater than 50% in coordination of care (as documented) at patient's floor/unit and/or counseling patient: (1) Hypothyroidism Hypothyroidism type: acquired Qualified Code(s): E03.9 - Hypothyroidism, unspecified (2) Hypertension Hypertension type: essential hypertension Qualified Code(s): I10 - Essential (primary) hypertension (3) Diabetes Diabetes mellitus type: type 2 Diabetes mellitus senior care insulin use: with senior care use Diabetes mellitus complication status: with kidney complications Diabetes mellitus complication detail: with chronic kidney disease Chronic kidney disease stage: on chronic dialysis Qualified Code(s): E11.22 - Type 2 diabetes mellitus with diabetic chronic kidney disease; N18.6 - End stage renal disease; Z79.4 - nursing home (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 (4) Depression Depression Type: other depression Qualified Code(s): F32.89 - Other specified depressive episodes (5) COPD (chronic obstructive pulmonary disease) COPD type: unspecified COPD Qualified Code(s): J44.9 - Chronic obstructive pulmonary disease, unspecified
[2019-06-07 19:30] LABS: Hematocrit (blood only) 25.4 % (42-52); Hemoglobin 8.3 g/dL (14.0-18.0); Reticulocyte % 2.6 % (0.5-2.0); Reticulocytes # 0.07 10^6/uL (0.02-0.10)
[2019-06-07] MEDS: ROSUVASTATIN CALCIUM 20 MG TAB PO SCH (20:42)
[2019-06-07] MEDS: GABAPENTIN 100 MG CAP PO SCH (20:42)
[2019-06-07] MEDS: TAMSULOSIN HCL 0.4 MG CAP PO SCH (20:42)
[2019-06-07] MEDS: INSULIN DETEMIR FLEXPEN/FLEX TOUCH 100 UNITS/ML 3ML SC SCH (20:44)
[2019-06-08 01:53] LABS: Hemoglobin 8.5 g/dL (14.0-18.0)
[2019-06-08] MEDS: PANTOprazole 40 MG in DEXTROSE 5% 100 ML IV SCH ×4 (04:05→19:33)
[2019-06-08] MEDS: LEVOTHYROXINE SODIUM 200 MCG TABLET PO SCH (05:19)
[2019-06-08] MEDS: LEVOTHYROXINE SODIUM 75 MCG TABLET PO SCH (05:19)
[2019-06-08] MEDS: DOCUSATE SODIUM 100 MG CAP PO SCH ×2 (05:19→08:11)
[2019-06-08] MEDS ORDERED: POLYETHYLENE (MIRALAX) 17 GM PACK PO PRN (05:43)
[2019-06-08 06:35] LABS: Hematocrit (blood only) 27.4 % (42-52); Hemoglobin 8.6 g/dL (14.0-18.0); Mean Corpuscular Hemoglobin 29.5 pg (25-34); Mean Corpuscular Hgb Conc 31.4 g/dL (32-36); Mean Corpuscular Volume 93.8 fL (80-100); Mean Platelet Volume 9.8 fL (7.4-10.4); Nucleated RBC # (auto) 0.02 K/uL (0-0); Nucleated RBC % (auto) 0.3 %; Platelet Count 192 K/uL (130-400); RDW Coefficient of Variation 15.7 % (11.5-14.5); RDW Standard Deviation 53.5 fL (36.4-46.3); Red Blood Count 2.92 M/uL (4.7-6.1); White Blood Count 5.77 K/uL (4.8-10.8)
[2019-06-08 06:46] LABS: INR 1.1 (0.9-1.1); Partial Thromboplastin Time 28.1 Seconds (21.0-31.0); Prothrombin Time 11.2 Seconds (9.0-12.0)
[2019-06-08 07:23] LABS: BUN Creatinine Ratio 9.1 (10-20); Calcium 9.6 mg/dl (8.5-10.1); Creatinine Clr Calc Pharmacy 10.3 ml/min; Est GFR (African American) 7.6; Est GFR (Non-African American) 6.5; Magnesium 2.1 mg/dl (1.8-2.4); Potassium 3.7 mmol/L (3.5-5.1)
[2019-06-08] MEDS: guaiFENesin 600 MG TABCR PO SCH ×2 (08:11→21:09)
[2019-06-08] MEDS: BUMETANIDE 1 MG TAB PO SCH ×2 (08:11→19:33)
[2019-06-08] MEDS: MULTIVITAMIN TAB PO SCH (08:11)
[2019-06-08] MEDS: FERROUS SULFATE 325 MG TAB PO SCH ×2 (08:11→21:10)
[2019-06-08] MEDS: DOXAZOSIN MESYLATE 1 MG TAB PO SCH (08:12)
[2019-06-08] MEDS: FLUTICASONE PROPIONATE NA SPR 16 GM BTL SCH ×2 (08:13→21:08)
[2019-06-08] MEDS: INSULIN ASPART 100 UNITS/ML 3 ML PEN SC SCH ×5 (08:14→21:13)
[2019-06-08] MEDS: NEPHROCAPS PO SCH (08:15)
[2019-06-08] MEDS: CALCIUM ACETATE 667 MG CAP PO SCH ×3 (08:16→16:56)
--- NOTE | 2019-06-08 08:49 | Oncology Consultation ---
Date of Consultation June 08, 2019 Assessment & Plan (1) Anemia: Mr. Mcintyre has a chronic, multifactorial anemia. He was initially a little slow to respond to transfusion, but has had an appropriate response to 3 units of PRBCs. His normal bilirubin and LDH argue strongly against hemolysis. He does not appear to be losing large amounts of blood elsewhere. His chronic anemia has components of anemia of ESRD and blood loss anemia from his recurring GI bleeds. He also has evidence of cirrhosis, which may be contributing as well. Over the last 2-3 years, his baseline hemoglobin has been between 7-9 without a clear trend. He had iron studies late last month that showed a transferrin sat uration of 16%. That is not deficient, but given his ongoing losses and his ESRD, that may be lower than optimal. He could consider routine IV iron supplementation, as he is listed as taking oral iron as an outpatient. He isn't sure if he's receiving NEMESIO therapy, though Aranesp is listed in his outpatient meds. If he is, that is notable as his hemoglobin has remained fairly low. This would further support the idea of adding regular supplementation. It appears that his GI bleeding has been refractory to endoscopic management. GI is considering another EGD today. If he continues to lose blood, we may need to plan on supportive care as described above. His platelets are normal in number. While uremia can affect platelet function, Mr. Mcintyre does not appear to be uremic. He is not taking any anti-platelet therapy and denies any NSAID use. Present on Admission?: Yes History of Present Illness Reason for Consultation: Anemia Attending Physician: Raphael Kemp, DO History of Present Illness Mr. Mcintyre is a 79 year old man with a history of cirrhosis, GAVE, CHF, ESRD on dialysis, DM, diabetic neuropathy, EFREN, PVD, pulmonary HTN, CAD, and COPD, among other issues. He came to the ER on 06/06 with melena and shortness of breath. His hemoglobin on admission was 6.5 on admission. However, since 2017, his hemoglobin has mostly ranged between 7-9, so he was not far over his baseline. He has received 3 units of PRBCs since admission and his hemoglobin was 8.6 this morning. He also has a chronic mild leukopenia. He is a poor historian who did not recall many details of his medical history. He has had a series of hospital stays over the last few months for GI bleeding secondary to GAVE. He has had several EGDs with coagulation of bleeding vessels. He denies any abdominal pain, nausea, or vomiting. He isn't sure if he's had any more black stools. He denies any bleeding elsewhere. He denies any headaches, vision changes, chest pain, shortness of breath, or swelling. Allergies Allergy/AdvReac Type Severity Reaction Status Date / Time tramadol AdvReac Severe disorented Verified 06/06/19 14:12 ,falling down metformin AdvReac Intermediate CONFUSION Verified 06/06/19 14:12 Home Medications Home Medications Medication Instructions Recorded Confirmed Type amlodipine 10 mg tablet 10 mg PO HS #90 tab 11/12/18 06/06/19 Rx tamsulosin 0.4 mg PO HS #90 cap 01/02/19 06/06/19 Rx docusate sodium 100 mg capsule 200 mg PO QAM #30 cap 01/19/19 06/06/19 Rx gabapentin 100 mg capsule 200 mg PO HS #60 cap 02/04/19 06/06/19 Rx levothyroxine 200 mcg PO QAM 02/15/19 06/06/19 History lisinopril 40 mg tablet 40 mg PO DAILY@1200 #90 tab 02/26/19 06/06/19 Rx Boost Glucose Control 1 ea PO TIDM 03/18/19 06/06/19 History insulin detemir U-100 100) 100 15 units SUBCUT HS ml 03/25/19 06/06/19 History unit/mL subcutaneous solution rosuvastatin 20 mg PO HS 04/07/19 06/06/19 History levothyroxine 75 mcg PO DAILY 04/24/19 06/06/19 History pantoprazole 40 mg PO AMPM 04/25/19 06/06/19 History doxazosin 1 mg tablet 1 mg PO DAILY #30 tab 05/19/19 06/06/19 Rx B complex with C 20-folic acid 1 cap PO DAILY 05/23/19 06/06/19 History [Renal Caps] bumetanide 1 mg tablet 1 mg PO BID #60 tab 06/02/19 06/06/19 Rx calcium acetate 667 mg tablet 2,001 mg PO TIDM tab 06/02/19 06/06/19 History darbepoetin rasheed in polysorbat 60 60 mcg SUBCUT .COMPLEX #4 ml 06/02/19 06/06/19 Rx mcg/mL in polysorbate injection ferrous sulfate 325 mg (65 mg 325 mg PO BID #60 tab 06/02/19 06/06/19 Rx iron) tablet,delayed release hydralazine 25 mg tablet 50 mg PO Q8 tab 06/02/19 06/06/19 History insulin aspart U-100 [Novolog See Rx Instructions .ROUTE .COMPLEX 06/06/19 06/06/19 History U-100 Insulin aspart] labetalol 200 mg PO BID 06/06/19 06/06/19 History multivitamin 1 tab PO DAILY 06/06/19 06/06/19 History Patient History Medical History Anxiety Arthritis Asthma AVF (arteriovenous fistula) left arm BPH (benign prostatic hyperplasia) CAD (coronary artery disease) Chronic diastolic congestive heart failure Chronic kidney disease, stage IV (severe) dialysis - [facility], sat at [place] follow with dr herrera Colon, diverticulosis 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, with long-term current use of insulin COPD (chronic obstructive pulmonary disease) Depression Diabetic peripheral neuropathy 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 Mando White. 50mg propofol, no issues. H/O hemorrhoidectomy History of esophagogastroduodenoscopy (EGD) x 2 at [facility] during admission from 05/23/19-05/30/19 Hx of cholecystectomy Family History Unknown Myocardial infarction Diabetes Mother Diabetes Gallbladder disease Hypertension Breast cancer late 70s Father Diabetes Hypertension Brother Diabetes Hypertension Kidney disease Social History Preferred Language: Mohawk Communication Ability: Effective Visual Impairment: No Limitations Hearing Ability: Hard of Hearing Career Guidance Technician Required: No Beliefs That Will Affect Care: None marital status: Current Living Situation: Spouse current occupational status: disabled current occupation: works part-time at [employer] Other Information That Helps Us Care for You: No Feels Safe at Home: Yes Safety Concerns: Feels Safe At This Time Smoking Status: Former smoker Tobacco Type: cigarettes ; Do You Dip or Chew Tobacco: No ; Number of Years Since Quit: 25 ; Second Hand Exposure: No ; Tobacco Cessation Education Requested by Patient: No Hx Alcohol Use: No Hx Substance Use: No Childhood Exposure to Second-Hand Smoke: No Other Diet Comment: regular caffeine: Yes during the past year weight has: remained stable Dental Care, Regularly: Yes Physical Activity Frequency: Does not Exercise Physical Activity Frequency Comment: limited due physical condition Seatbelt Use: sometimes Sunscreen Use: No Review of Systems Review of Systems: All systems reviewed & are unremarkable except as noted in HPI & below Physical Exam Constitutional: + ill appearing (chronically) and comfortable; no acute distress ENMT: external ear and nose normal, oropharynx normal Respiratory: normal respiratory effort Auscultation: + wheezes (scattered in all arreaga) Cardiovascular: Rate/Rhythm: regular rate and regular rhythm Extremities: + edema (non-pitting edema in both ankles) Gastrointestinal (Abdomen): Inspection/Auscultation: normal bowel sounds; abdomen not distended Percussion/Palpation: abdomen soft; abdomen nontender Skin: Multiple senile ecchymoses Psychiatric: Alert and oriented. He answered questions appropriately but had limited recall regarding his medical history Results & Data Vital Signs (Past 12 Hours) Vital Signs Temp Pulse Resp BP Pulse Ox 06/08/19 07:06 36.5 C 66 19 180/71 H 91 06/08/19 03:49 36.7 C 62 19 189/79 H 90 06/08/19 00:00 36.6 C 84 19 163/50 H 90 Laboratory Results Abnormal lab results 06/06/19 06/07/19 06/07/19 Range/Units 12:52 11:19 13:45 RBC (4.7-6.1) M/uL Hgb 8.8 L (14.0-18.0) g/dL Hct 27.8 L (42-52) % MCHC (32-36) g/dL RDW Std Deviation (36.4-46.3) fL RDW Coeff of Jose C (11.5-14.5) % Reticulocyte % (Auto) (0.5-2.0) % Absolute Nucleated RBC (0-0) K/uL BUN (7-18) mg/dl Creatinine (0.6-1.4) mg/dl BUN/Creatinine Ratio (10-20) Glucose (70-99) mg/dl POC Glucose 140 H (70-99) Crossmatch See Detail 06/07/19 06/07/19 06/08/19 Range/Units 16:14 19:22 01:33 RBC (4.7-6.1) M/uL Hgb 8.3 L 8.5 L (14.0-18.0) g/dL Hct 25.4 L 26.0 L (42-52) % MCHC (32-36) g/dL RDW Std Deviation (36.4-46.3) fL RDW Coeff of Jose C (11.5-14.5) % Reticulocyte % (Auto) 2.6 H (0.5-2.0) % Absolute Nucleated RBC (0-0) K/uL BUN (7-18) mg/dl Creatinine (0.6-1.4) mg/dl BUN/Creatinine Ratio (10-20) Glucose (70-99) mg/dl POC Glucose 166 H (70-99) Crossmatch 06/08/19 06/08/19 Range/Units 06:08 06:08 RBC 2.92 L (4.7-6.1) M/uL Hgb 8.6 L (14.0-18.0) g/dL Hct 27.4 L (42-52) % MCHC 31.4 L (32-36) g/dL RDW Std Deviation 53.5 H (36.4-46.3) fL RDW Coeff of Jose C 15.7 H (11.5-14.5) % Reticulocyte % (Auto) (0.5-2.0) % Absolute Nucleated RBC 0.02 H (0-0) K/uL BUN 66 H (7-18) mg/dl Creatinine 7.31 H* D (0.6-1.4) mg/dl BUN/Creatinine Ratio 9.1 L (10-20) Glucose 172 H (70-99) mg/dl POC Glucose (70-99) Crossmatch Diagnostic Findings CT A/P, 06/07/19: IMPRESSION: 1. No retroperitoneal hematoma. No acute process within the abdomen or pelvis on unenhanced exam. 2. Colonic diverticulosis acute diverticulitis. 3. Possible early cirrhosis. Trace ascites. Stable mild splenomegaly. 4. Bladder wall thickening which is similar to prior exams but could be correlated with urinalysis. (1) Anemia Anemia type: unspecified type Qualified Code(s): D64.9 - Anemia, unspecified
--- NOTE | 2019-06-08 10:04 | Nephrology Progress Note ---
Date of Service June 08, 2019 Assessment & Plan (1) ESRD (end stage renal disease) on dialysis: ESRD due to diabetic nephropathy. Dialyzes TTS at [facility]. Admitted due to recurrent UGI bleeding. PMH: HTN, AODM, vascular dementia, IgG monoclonal gammopathy, EFREN, BPH, hypothyroidism, and CHF w/ diastolic dysfunction. Admitted with recurrent GIB, Hb 6.9, Hb improved to 8.6 after 2 PRBC. Recent >1 week inpatient at [facility], 3 EGD and 8 PRBC, but Hb dropped with GIB again within 1 week of discharge. He has not been on any antiplatelet and has been getting maximum dose of Mircera ( NEMESIO) and iron infusion at the out pt dialysis unit. -- Volume status and electrolyte balance acceptable at this time. No acute indication for HD, HD tomorrow as TTS schedule -- Protect L arm HD access --going for another EGD today. Appreciate GI help with ongoing recurrent GIB, low Hb and repeated ER visit and hospitalization which has been extremely difficult for the pt and his family. (2) GAVE (gastric antral vascular ectasia): Subjective Don was seen and examined in his room this am. Overall he is feeling better , denies any active bleeding, but getting frustrated with repeated hospital admissions and multiple procedures. Hb improved after 2 PRBC, due for EGD. Review of Systems Review of Systems: All systems reviewed & are unremarkable except as noted in HPI & below Physical Exam Constitutional: well developed and well nourished; no acute distress Respiratory: normal respiratory effort, lungs clear to auscultation Cardiovascular: RRR, no murmur, no edema Neurologic: moves all extremities and awake; not confused Psychiatric: A+Ox3, euthymic affect Results & Data Vital Signs (Past 12 Hours) Vital Signs Temp Pulse Resp BP Pulse Ox 06/08/19 07:06 36.5 C 66 19 180/71 H 91 06/08/19 03:49 36.7 C 62 19 189/79 H 90 06/08/19 00:00 36.6 C 84 19 163/50 H 90 PG Care Time/CCT Total # of Minutes Spent Total Time Spent with Patient: Total time spent is greater than 50% in coordination of care (as documented) at patient's floor/unit and/or counseling patient:
--- NOTE | 2019-06-08 13:08 | History & Physical Report ---
Date of Service June 08, 2019 History of Present Illness Chief Complaint: anemia, melena Primary Care Provider: Mahsa Wang DO For EGD Allergies Allergy/AdvReac Type Severity Reaction Status Date / Time tramadol AdvReac Severe disorented Verified 06/06/19 14:12 ,falling down metformin AdvReac Intermediate CONFUSION Verified 06/06/19 14:12 Home Medications Home Medications Medication Instructions Recorded Confirmed Type amlodipine 10 mg tablet 10 mg PO HS #90 tab 11/12/18 06/06/19 Rx tamsulosin 0.4 mg PO HS #90 cap 01/02/19 06/06/19 Rx docusate sodium 100 mg capsule 200 mg PO QAM #30 cap 01/19/19 06/06/19 Rx gabapentin 100 mg capsule 200 mg PO HS #60 cap 02/04/19 06/06/19 Rx levothyroxine 200 mcg PO QAM 02/15/19 06/06/19 History lisinopril 40 mg tablet 40 mg PO DAILY@1200 #90 tab 02/26/19 06/06/19 Rx Boost Glucose Control 1 ea PO TIDM 03/18/19 06/06/19 History insulin detemir U-100 100) 100 15 units SUBCUT HS ml 03/25/19 06/06/19 History unit/mL subcutaneous solution rosuvastatin 20 mg PO HS 04/07/19 06/06/19 History levothyroxine 75 mcg PO DAILY 04/24/19 06/06/19 History pantoprazole 40 mg PO AMPM 04/25/19 06/06/19 History doxazosin 1 mg tablet 1 mg PO DAILY #30 tab 05/19/19 06/06/19 Rx B complex with C 20-folic acid 1 cap PO DAILY 05/23/19 06/06/19 History [Renal Caps] bumetanide 1 mg tablet 1 mg PO BID #60 tab 06/02/19 06/06/19 Rx calcium acetate 667 mg tablet 2,001 mg PO TIDM tab 06/02/19 06/06/19 History darbepoetin rasheed in polysorbat 60 60 mcg SUBCUT .COMPLEX #4 ml 06/02/19 06/06/19 Rx mcg/mL in polysorbate injection ferrous sulfate 325 mg (65 mg 325 mg PO BID #60 tab 06/02/19 06/06/19 Rx iron) tablet,delayed release hydralazine 25 mg tablet 50 mg PO Q8 tab 06/02/19 06/06/19 History insulin aspart U-100 [Novolog See Rx Instructions .ROUTE .COMPLEX 06/06/19 06/06/19 History U-100 Insulin aspart] labetalol 200 mg PO BID 06/06/19 06/06/19 History multivitamin 1 tab PO DAILY 06/06/19 06/06/19 History Past Med/Surg History Medical History Anxiety Arthritis Asthma AVF (arteriovenous fistula) left arm BPH (benign prostatic hyperplasia) CAD (coronary artery disease) Chronic diastolic congestive heart failure Chronic kidney disease, stage IV (severe) dialysis - [facility], sat at [facility] follow with dr sharon Teague, diverticulosis 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, with long-term current use of insulin COPD (chronic obstructive pulmonary disease) Depression Diabetic peripheral neuropathy 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 Mando White. 50mg propofol, no issues. H/O hemorrhoidectomy History of esophagogastroduodenoscopy (EGD) x 2 at [facility] during admission from 05/23/19-05/30/19 Hx of cholecystectomy Family History Unknown Myocardial infarction Diabetes Mother Diabetes Gallbladder disease Hypertension Breast cancer late 70s Father Diabetes Hypertension Brother Diabetes Hypertension Kidney disease Social History Preferred Language: [place] Communication Ability: Effective Visual Impairment: No Limitations Hearing Ability: Hard of Hearing Certification Engineer Required: No Beliefs That Will Affect Care: None marital status: Current Living Situation: Spouse current occupational status: disabled current occupation: works part-time at [employer] Other Information That Helps Us Care for You: No Feels Safe at Home: Yes Safety Concerns: Feels Safe At This Time Smoking Status: Former smoker Tobacco Type: cigarettes ; Do You Dip or Chew Tobacco: No ; Number of Years Since Quit: 25 ; Second Hand Exposure: No ; Tobacco Cessation Education Requested by Patient: No Hx Alcohol Use: No Hx Substance Use: No Childhood Exposure to Second-Hand Smoke: No Other Diet Comment: regular caffeine: Yes during the past year weight has: remained stable Dental Care, Regularly: Yes Physical Activity Frequency: Does not Exercise Physical Activity Frequency Comment: limited due physical condition Seatbelt Use: sometimes Sunscreen Use: No Physical Exam Constitutional: + ill appearing Respiratory: normal respiratory effort Cardiovascular: Rate/Rhythm: regular rate and regular rhythm Gastrointestinal (Abdomen): Percussion/Palpation: abdomen soft Results & Data Vital Signs (Past 12 Hours) Vital Signs Temp Pulse Resp BP Pulse Ox 06/08/19 13:05 36.8 C 60 16 186/69 H 94 06/08/19 11:01 36.7 C 63 19 179/60 H 94 06/08/19 07:06 36.5 C 66 19 180/71 H 91 06/08/19 03:49 36.7 C 62 19 189/79 H 90 Code Status & VTE Plan VTE Prophylaxis Plan VTE Prophylaxis will be ordered: Yes
[2019-06-08] MEDS ORDERED: LIDOCAINE HCL 2% 2 ML VIAL/AMP(20MG/ML) INFIL ONE (13:10)
[2019-06-08] MEDS ORDERED: PROPOFOL IV EMULSION 10 MG/ML 20 ML VIAL IV ONE (13:10)
[2019-06-08] MEDS ORDERED: KETAMINE HCL INJ 50 MG/ML 10 ML VIAL ONE (13:10)
[2019-06-08] MEDS ORDERED: SODIUM CHLORIDE 0.9% 1000ML 1,000 ML IV SCH (13:15)
[2019-06-08] MEDS ORDERED: ePHEDrine sulfate 50 MG/ML AMP IV PRN (13:19)
[2019-06-08] MEDS ORDERED: ATROPINE SULFATE 0.1 MG/ML 10ML SYR IV PRN (13:19)
--- NOTE | 2019-06-08 13:19 | Anesthesiology Consultation ---
Date of Service June 08, 2019 Assessment & Plan (1) Encounter for pre-operative examination: Chart Review Chart Review: Acceptable Risk for Surgery and Patient NOT seen in Pre Admission Testing Consults Requested none ASA ASA4 History Surgery Operation Date: 06/08/19 16:55 Proposed Procedures p Esophagogastroduodenoscopy Dr Christopher White Height/Weight Height: 6 ft Weight: 98.6 kg Allergies Allergy/AdvReac Type Severity Reaction Status Date / Time tramadol AdvReac Severe disorented Verified 06/06/19 14:12 ,falling down metformin AdvReac Intermediate CONFUSION Verified 06/06/19 14:12 Medications Home Medications Medication Instructions Recorded Confirmed Last Taken amlodipine 10 mg tablet 10 mg PO HS #90 tab 11/12/18 06/06/19 06/05/19 tamsulosin 0.4 mg PO HS #90 cap 01/02/19 06/06/19 06/05/19 docusate sodium 100 mg capsule 200 mg PO QAM #30 cap 01/19/19 06/06/19 06/06/19 gabapentin 100 mg capsule 200 mg PO HS #60 cap 02/04/19 06/06/19 06/05/19 levothyroxine 200 mcg PO QAM 02/15/19 06/06/19 06/06/19 lisinopril 40 mg tablet 40 mg PO DAILY@1200 #90 tab 02/26/19 06/06/19 06/06/19 Boost Glucose Control 1 ea PO TIDM 03/18/19 06/06/19 06/06/19 insulin detemir U-100 100) 100 15 units SUBCUT HS ml 03/25/19 06/06/19 06/05/19 unit/mL subcutaneous solution rosuvastatin 20 mg PO HS 04/07/19 06/06/19 06/05/19 levothyroxine 75 mcg PO DAILY 04/24/19 06/06/19 06/06/19 pantoprazole 40 mg PO AMPM 04/25/19 06/06/19 06/06/19 doxazosin 1 mg tablet 1 mg PO DAILY #30 tab 05/19/19 06/06/19 06/06/19 B complex with C 20-folic acid 1 cap PO DAILY 05/23/19 06/06/19 06/06/19 [Renal Caps] bumetanide 1 mg tablet 1 mg PO BID #60 tab 06/02/19 06/06/19 06/06/19 calcium acetate 667 mg tablet 2,001 mg PO TIDM tab 06/02/19 06/06/19 06/06/19 darbepoetin rasheed in polysorbat 60 60 mcg SUBCUT .COMPLEX #4 ml 06/02/19 06/06/19 Unknown mcg/mL in polysorbate injection ferrous sulfate 325 mg (65 mg 325 mg PO BID #60 tab 06/02/19 06/06/19 06/06/19 iron) tablet,delayed release hydralazine 25 mg tablet 50 mg PO Q8 tab 06/02/19 06/06/19 06/06/19 insulin aspart U-100 [Novolog See Rx Instructions .ROUTE .COMPLEX 06/06/19 06/06/19 Unknown U-100 Insulin aspart] labetalol 200 mg PO BID 06/06/19 06/06/19 06/06/19 multivitamin 1 tab PO DAILY 06/06/19 06/06/19 06/06/19 Active Medications Generic Name Dose Route Start Last Admin Trade Name Freq PRN Reason Stop Dose Admin Bumetanide 1 mg 06/06/19 19:30 06/08/19 08:11 Bumex PO 07/06/19 19:29 1 mg DAILY@0700,1900 SHANTA Administration Calcium Acetate 2,001 mg 06/06/19 19:30 06/08/19 12:21 Phoslo PO 07/06/19 19:29 Not Given TIDM SHANTA Docusate Sodium 200 mg 06/07/19 09:00 06/08/19 08:11 Colace PO 07/07/19 08:59 200 mg QAM SHANTA Administration Doxazosin Mesylate 1 mg 06/07/19 09:00 06/08/19 08:12 Cardura PO 07/07/19 08:59 1 mg DAILY SHANTA Administration Ferrous Sulfate 325 mg 06/06/19 21:00 06/08/19 08:11 Feosol PO 07/06/19 20:59 325 mg BID SHANTA Administration Fluticasone Propionate 1 sprays 06/07/19 09:00 06/08/19 08:13 Flonase NA 07/07/19 08:59 1 sprays BID SHANTA Administration Gabapentin 200 mg 06/06/19 21:00 06/07/19 20:42 Neurontin PO 07/06/19 20:59 200 mg HS SHANTA Administration Guaifenesin 1,200 mg 06/07/19 09:00 06/08/19 08:11 Mucinex PO 07/07/19 08:59 1,200 mg Q12 SHANTA Administration Pantoprazole Sodium 40 mg/ 100 mls @ 20 mls/hr 06/07/19 08:15 06/08/19 08:24 Dextrose IV 07/07/19 08:14 20 mls/hr Q5H SHANTA Administration Insulin Aspart 0 units 06/06/19 19:30 06/08/19 12:20 Novolog Flexpen SC 07/06/19 19:29 1 units ACHS SHANTA Administration Insulin Detemir 8 units 06/06/19 21:00 06/07/19 20:44 Levemir Flextouch SC 07/06/19 20:59 8 units HS SHANTA Administration Levothyroxine Sodium 75 mcg 06/07/19 06:30 06/08/19 05:19 Synthroid PO 07/07/19 06:29 75 mcg DAILYBB SHANTA Administration Levothyroxine Sodium 200 mcg 06/07/19 06:30 06/08/19 05:19 Synthroid PO 07/07/19 06:29 200 mcg DAILYBB SHANTA Administration Miscellaneous 1 ea 06/07/19 00:00 06/08/19 08:12 Order Awaiting Action N/A 07/07/19 00:00 Not Given QS SHANTA Multivitamins 1 tab 06/07/19 09:00 06/08/19 08:11 Multivitamin Tab PO 07/07/19 08:59 1 tab DAILY SHANTA Administration Polyethylene Glycol 17 gm 06/08/19 05:43 06/08/19 05:59 Miralax Powder Packet PO 07/08/19 05:42 17 gm DAILY PRN Administration Constipation Rosuvastatin Calcium 20 mg 06/06/19 21:00 06/07/19 20:42 Crestor PO 07/06/19 20:59 20 mg HS SAHNTA Administration Tamsulosin HCl 0.4 mg 06/06/19 21:00 06/07/19 20:42 Flomax PO 07/06/19 20:59 0.4 mg HS SHANTA Administration Vitamin B Complex/Folic Acid 1 cap 06/07/19 09:00 06/08/19 08:15 Nephrocaps PO 07/07/19 08:59 1 cap DAILY SHANTA Administration NPO Date Last Intake of Fluids: 06/08/19 Time Last Intake of Fluids: 08:00 Date Last Intake of Solids: 06/07/19 Time Last Intake of Solids: 23:00 Past Medical History Medical History Anxiety Arthritis Asthma AVF (arteriovenous fistula) left arm BPH (benign prostatic hyperplasia) CAD (coronary artery disease) Chronic diastolic congestive heart failure Chronic kidney disease, stage IV (severe) dialysis - [facility], sat at [facility] follow with dr herrera Colon, diverticulosis 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, with long-term current use of insulin COPD (chronic obstructive pulmonary disease) Depression Diabetic peripheral neuropathy 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) (Acute) GERD (gastroesophageal reflux disease) Hearing difficulty Hyperlipidemia LDL goal <70 Hypertension Hypothyroidism Memory loss Mitral regurgitation Obstructive sleep apnea uses oxygen 2 l [place] at Pulmonary hypertension Secondary hyperparathyroidism of renal origin Uncontrolled daytime somnolence sleeps thru day and cant sleep at [facility] Past Family History Family History Unknown Myocardial infarction Diabetes Mother Diabetes Gallbladder disease Hypertension Breast cancer late 70s Father Diabetes Hypertension Brother Diabetes Hypertension Kidney disease Past Surgical History Surgical History H/O cardiac catheterization many years ago - over 10 years no stents follow with [facility] H/O esophagogastroduodenoscopy 02/16/19 and 03/2019 [facility]- Dr. Mando White. 50mg propofol, no issues. H/O hemorrhoidectomy History of esophagogastroduodenoscopy (EGD) x 2 at [facility] during admission from 05/23/19-05/30/19 Hx of cholecystectomy Social History Smoking Status: Former smoker tobacco type: cigarettes Do You Dip or Chew Tobacco: No Hx Alcohol Use: No Hx Substance Use: No substance use type: does not use Physical Exam Vital Signs Last Vital Signs Temp 36.8 C 06/08/19 13:05 Pulse 60 06/08/19 13:05 Resp 16 06/08/19 13:05 BP 186/69 H 06/08/19 13:05 Pulse Ox 94 06/08/19 13:05 Testing Laboratory Results 06/08/19 06:08 06/08/19 06:08 PT 11.2 Seconds (9.0-12.0) 06/08/19 06:08 INR 1.1 (0.9-1.1) 06/08/19 06:08 APTT 28.1 Seconds (21.0-31.0) 06/08/19 06:08 Blood Type B Positive 06/06/19 12:52 Antibody Screen NEGATIVE 06/06/19 12:52 06/08/19 11:57 POC Glucose 164 H
--- NOTE | 2019-06-08 13:49 | GI REPORT ---
Patient Name: Darnell Mcintyre Procedure Date: 06/08/2019 1:17 PM Date of : 1940 Admit Type: Inpatient Age: 79 Gender: Male Attending MD: Mando White MD Procedure: Upper GI endoscopy Providers: Mando White MD Referring MD: Raphael Kemp Indications: Iron deficiency anemia secondary to chronic blood loss, Melena Medicines: Propofol total dose 50 mg IV, Ketamine 25 mg IV, Lidocaine 80 mg IV Complications: No immediate complications. Estimated Blood Loss: Estimated blood loss: none. Procedure: Pre-Anesthesia Assessment: - Prior to the procedure, a History and Physical was performed, and patient medications, allergies and sensitivities were reviewed. The patient's tolerance of previous anesthesia was reviewed. - The risks and benefits of the procedure and the sedation options and risks were discussed with the patient. All questions were answered and informed consent was obtained. After obtaining informed consent, the endoscope was passed under direct vision. Throughout the procedure, the patient's blood pressure, pulse, and oxygen saturations were monitored continuously. The Endoscope was introduced through the mouth, and advanced to the second part of duodenum. The upper GI endoscopy was accomplished without difficulty. The patient tolerated the procedure well. Findings: The Z-line was regular and was found 45 cm from the incisors. Multiple 6 mm pedunculated and sessile polyps with no bleeding and no stigmata of recent bleeding were found in the gastric body. One non-bleeding superficial gastric ulcer with no stigmata of bleeding was found in the gastric antrum. The lesion was 5 mm in largest dimension. Localized moderately erythematous mucosa without bleeding was found in the gastric antrum. A large non-bleeding diverticulum was found in the second portion of the duodenum. Impression: - Z-line regular, 45 cm from the incisors. - Multiple gastric polyps. - Non-bleeding gastric ulcer with no stigmata of bleeding. - Erythematous mucosa in the antrum. - Normal examined duodenum. - No specimens collected. Recommendation: - Return patient to hospital [facility] for ongoing care. - Use sucralfate tablets 1 gram PO QID for 2 months. Mando White M.D. Mando White MD 06/08/2019 1:48:41 PM This report has been signed electronically. Note Initiated On: 06/08/2019 1:17 PM Number of Addenda: 0 I attest to the content of the Intraoperative Record and orders documented therein, exceptions below {[id number]}
--- NOTE | 2019-06-08 14:16 | Progress Note ---
DATE: 06/08/2019 The patient presented with melena and anemia as he has in the past. The patient received 3 units of red blood cells and responded appropriately to hemoglobin in the high 8s from 6.9. The patient underwent an EGD today and was found to have multiple gastric polyps as he has had in the past. He also had some vascular ectasia in the gastric antrum which he has had in the past. He also had a gastric ulcer on the posterior antral wall which was nonbleeding. Duodenum showed a large diverticulum in the second portion but was otherwise normal. IMPRESSION: The patient has a gastric ulcer in the antrum. I plan on treating him with Carafate 4 times a day and will get a stool for H. pylori.
--- NOTE | 2019-06-08 15:22 | Anesthesiology Progress Note ---
Date of Service June 08, 2019 Anesthesia Post Procedure Vital Signs Vital Signs: Temp Pulse Resp BP Pulse Ox 06/08/19 14:50 69 178/64 H 90 06/08/19 14:45 36.3 C L 61 19 186/68 H 92 06/08/19 14:30 62 16 173/67 H 94 06/08/19 14:14 65 17 153/70 H 94 06/08/19 14:00 65 16 148/80 H 93 06/08/19 13:45 65 18 133/72 95 06/08/19 13:05 36.8 C 60 16 186/69 H 94 06/08/19 11:01 36.7 C 63 19 179/60 H 94 06/08/19 07:06 36.5 C 66 19 180/71 H 91 06/08/19 03:49 36.7 C 62 19 189/79 H 90 06/08/19 00:00 36.6 C 84 19 163/50 H 90 06/07/19 18:54 36.4 C L 63 18 182/68 H 91 Pain Intensity Bilateral Leg: Pain Intensity: 5 Transfer of Care Handoff Completed per policy Notes Mental Status: alert / awake / arousable Patient Amnestic to Procedure: Yes Nausea / Vomiting: adequately controlled Pain: adequately controlled Airway Patency, RR, SpO2: stable & adequate BP & HR: stable & adequate Hydration State: stable & adequate Anesthetic Complications: no major complications apparent and Pt Satisfied with anesthetic care
[2019-06-08] MEDS: GABAPENTIN 100 MG CAP PO SCH (21:09)
[2019-06-08] MEDS: ROSUVASTATIN CALCIUM 20 MG TAB PO SCH (21:10)
[2019-06-08] MEDS: TAMSULOSIN HCL 0.4 MG CAP PO SCH (21:10)
[2019-06-08] MEDS: INSULIN DETEMIR FLEXPEN/FLEX TOUCH 100 UNITS/ML 3ML SC SCH (21:13)
--- NOTE | 2019-06-08 23:05 | Hospitalist Progress Note ---
Date of Service June 08, 2019 Assessment & Plan (1) Acute blood loss anemia: Presumed 2nd to upper GI bleeding. s/p 2 units PRBCs on admission Hb stable today at 8.6 allow clear liquids then advance as tolerated EGD 06/08 with non bleeding gastric ulcer, some erythema, gastric polyps started on Carafate per GI Had EGD 04/2019 at [facility] with Dr White from [facility]. During the April EGD he had numerous gastric polyps and numerous angioectasias. Treated with APC. Then, s/p 2 EGDs at [place] 1-2 weeks ago -- 05/25 and 05/28 (see this note for details of those endoscopies). continue Protonix IV repeat Hb tomorrow AM, monitor for any further melena (2) Upper gastrointestinal bleed: see "acute blood loss anemia" above. Serial H/H's. Tx for Hb <7. GI consult. PPI drip. Hb is 8.6, it is stable monitor for any further melena or drop in Hb (3) GAVE (gastric antral vascular ectasia): as seen in April and May EGDs. GI recommends checking for other causes of anemia - especially hemolysis. TMihai bileduardo wnl. appreciate hematology consult, could be due to iron deficiency no signs of uremia no signs of hemolysis may need to take a transfuse as needed approach (4) Obstructive sleep apnea: -Does not use CPAP, continue supplemental O2 as needed (5) Hypothyroidism: last few TSH checks have all been high. noncompliance? medical record suggests h/o noncompliance. would simply continue levothyroxine 275mcg daily. encourage compliance. repeat TSH 3-4 weeks. (6) Hypertension: cont home meds (7) ESRD (end stage renal disease) on dialysis: nephrology consult requested for HD needs. scheduled: //Sat. cont calcium acetate TID w/ meals. (8) Diabetes: Glycemic consult placed to pharmacy. Appreciate their assistance. Control adequate at this time. monitor for hypoglycemia (9) Depression: noted (10) COPD (chronic obstructive pulmonary disease): no exacerbation at this time Subjective patient seen after EGD that showed non bleeding gastric ulcer, polyps and some erythema says he is feeling well, better than when he was admitted breathing well, no chest pain, no cough has not seen any melena appreciate recommendations from Dr White, placed on Carafate reviewed labs, Hb stable at 8.6 this morning discussed with nephrology, plan for HD tomorrow Review of Systems Review of Systems: All systems reviewed & are unremarkable except as noted in HPI & below Physical Exam Constitutional: WD/WN, vitals as above Eyes: PERRL, conjunctivae normal, anicteric sclerae ENMT: external ear and nose normal, oropharynx normal Neck: trachea midline, no thyromegaly Respiratory: normal respiratory effort, lungs clear to auscultation Cardiovascular: RRR, no murmur, no edema Gastrointestinal (Abdomen): normal bowel sounds, soft, nontender, no hepatosplenomegaly Musculoskeletal: no cyanosis or clubbing, extremities motor strength 5/5 Skin: no rashes, warm and dry Neurologic: patellar DTR's 2+ bilat, sensation intact and PERRL, EOMI, accommodation nl, no face palsy, no dysarthria Psychiatric: A+Ox3, euthymic affect Lymphatic: no cervical or axillary lymphadenopathy Results & Data Vital Signs (Past 12 Hours) Vital Signs Temp Pulse Resp BP Pulse Ox 06/08/19 18:44 36.5 C 63 20 167/79 H 95 06/08/19 14:50 69 178/64 H 90 06/08/19 14:45 36.3 C L 61 19 186/68 H 92 06/08/19 14:30 62 16 173/67 H 94 06/08/19 14:14 65 17 153/70 H 94 06/08/19 14:00 65 16 148/80 H 93 06/08/19 13:45 65 18 133/72 95 06/08/19 13:05 36.8 C 60 16 186/69 H 94 Laboratory Results Laboratory Results - last 24 hr 06/08/19 06/08/19 06/08/19 01:33 06:08 06:08 WBC 5.77 RBC 2.92 L Hgb 8.5 L 8.6 L Hct 26.0 L 27.4 L MCV 93.8 MCH 29.5 MCHC 31.4 L RDW Std Deviation 53.5 H RDW Coeff of Jose C 15.7 H Plt Count 192 MPV 9.8 Absolute Nucleated RBC 0.02 H Nucleated RBC % (auto) 0.3 Haptoglobin PT INR APTT PTT Ratio Sodium 137 Potassium 3.7 Chloride 99 Carbon Dioxide 31 Anion Gap 7.0 BUN 66 H Creatinine 7.31 H* D Est Cr Clr Drug Dosing 10.3 Est GFR ( Amer) 7.6 Est GFR (Non-Af Amer) 6.5 BUN/Creatinine Ratio 9.1 L Glucose 172 H POC Glucose Calcium 9.6 Magnesium 2.1 Folate 06/08/19 06/08/19 06/08/19 06:08 06:08 06:08 WBC RBC Hgb Hct MCV MCH MCHC RDW Std Deviation RDW Coeff of Jose C Plt Count MPV Absolute Nucleated RBC Nucleated RBC % (auto) Haptoglobin Pending PT 11.2 INR 1.1 APTT 28.1 PTT Ratio 1.0 Sodium Potassium Chloride Carbon Dioxide Anion Gap BUN Creatinine Est Cr Clr Drug Dosing Est GFR ( Amer) Est GFR (Non-Af Amer) BUN/Creatinine Ratio Glucose POC Glucose Calcium Magnesium Folate 19.86 06/08/19 06/08/19 06/08/19 11:57 16:07 20:42 WBC RBC Hgb Hct MCV MCH MCHC RDW Std Deviation RDW Coeff of Jose C Plt Count MPV Absolute Nucleated RBC Nucleated RBC % (auto) Haptoglobin PT INR APTT PTT Ratio Sodium Potassium Chloride Carbon Dioxide Anion Gap BUN Creatinine Est Cr Clr Drug Dosing Est GFR ( Amer) Est GFR (Non-Af Amer) BUN/Creatinine Ratio Glucose POC Glucose 164 H 126 H 253 H Calcium Magnesium Folate Medications Administered Current Inpatient Medications Acetaminophen (Tylenol) 650 mg PO Q4H PRN PRN Reason: Moderate Pain Stop: 07/06/19 18:42 Bumetanide (Bumex) 1 mg PO DAILY@0700,1900 [facility] Stop: 07/06/19 19:29 Last Admin: 06/08/19 19:33 Dose: 1 mg Documented by: Calcium Acetate (Phoslo) 2,001 mg PO TIDM [facility] Stop: 07/06/19 19:29 Last Admin: 06/08/19 16:56 Dose: Not Given Documented by: Dextrose (Dextrose 50%) 25 - 50 ml IV UD PRN; Protocol PRN Reason: Hypoglycemia Protocol Stop: 07/06/19 18:42 Docusate Sodium (Colace) 200 mg PO QAM [facility] Stop: 07/07/19 08:59 Last Admin: 06/08/19 08:11 Dose: 200 mg Documented by: Doxazosin Mesylate (Cardura) 1 mg PO DAILY [facility] Stop: 07/07/19 08:59 Last Admin: 06/08/19 08:12 Dose: 1 mg Documented by: Ferrous Sulfate (Feosol) 325 mg PO BID [facility] Stop: 07/06/19 20:59 Last Admin: 06/08/19 21:10 Dose: 325 mg Documented by: Fluticasone Propionate (Flonase) 1 sprays NA BID [facility] Stop: 07/07/19 08:59 Last Admin: 06/08/19 21:08 Dose: 1 sprays Documented by: Gabapentin (Neurontin) 200 mg PO HS [facility] Stop: 07/06/19 20:59 Last Admin: 06/08/19 21:09 Dose: 200 mg Documented by: Glucagon (Glucagen) 1 mg SQ UD PRN; Protocol PRN Reason: Hypoglycemia Protocol Stop: 07/06/19 18:42 Glucose (Dex4 Glucose) 4 - 8 tabs PO UD PRN; Protocol PRN Reason: Hypoglycemia Protocol Stop: 07/06/19 18:42 Glucose (Glucose 40%) 15 - 30 gm PO UD PRN; Protocol PRN Reason: Hypoglycemia Protocol Stop: 07/06/19 18:42 Guaifenesin (Mucinex) 1,200 mg PO Q12 [facility] Stop: 07/07/19 08:59 Last Admin: 06/08/19 21:09 Dose: 1,200 mg Documented by: Pantoprazole Sodium 40 mg/ (Dextrose) 100 mls @ 20 mls/hr IV Q5H [facility] Stop: 07/07/19 08:14 Last Admin: 06/08/19 19:33 Dose: 20 mls/hr Documented by: Sodium Chloride (Nss 1000ml) 1,000 mls @ 0 mls/hr IV .Q0M PRN PRN Reason: For Hemodialysis Use ONLY Stop: 06/09/19 12:59 Sodium Chloride (Nss 1000ml) 1,000 mls @ 15 mls/hr IV .Q24H [facility] Stop: 06/09/19 13:14 Last Admin: 06/08/19 14:39 Dose: Not Given Documented by: Insulin Aspart (Novolog Flexpen) 0 units SC ACHS [facility] Stop: 07/06/19 19:29 Last Admin: 06/08/19 21:13 Dose: 4 units Documented by: Insulin Detemir (Levemir Flextouch) 8 units SC [facility] Stop: 07/06/19 20:59 Last Admin: 06/08/19 21:13 Dose: 8 units Documented by: [facility]: 07/07/19 06:29 Last Admin: 06/08/19 05:19 Dose: 75 mcg Documented by: [facility]othyroxine [facility] ([facility]) [facility] Stop: 07/07/19 06:29 Last Admin: 06/08/19 05:19 Dose: 200 mcg Documented by: Miscellaneous (Order Awaiting Action) 1 ea N/A QS [facility] Stop: 07/07/19 00:00 Last Admin: 06/08/19 16:26 Dose: Not Given Documented by: Miscellaneous (Carbohydrates For Hypoglycemia) 15 - 30 gm PO UD PRN PRN Reason: Hypoglycemia Protocol Stop: 07/06/19 18:42 Multivitamins (Multivitamin Tab) 1 tab PO DAILY [facility] Stop: 07/07/19 08:59 Last Admin: 06/08/19 08:11 Dose: 1 tab Documented by: Ondansetron HCl (Zofran) 4 mg IV Q4H PRN PRN Reason: Nausea And Vomiting Stop: 07/06/19 18:42 Polyethylene Glycol (Miralax Powder Packet) 17 gm PO DAILY PRN PRN Reason: Constipation Stop: 07/08/19 05:42 Last Admin: 06/08/19 05:59 Dose: 17 gm Documented by: Rosuvastatin Calcium (Crestor) 20 mg PO [facility] Stop: 07/06/19 20:59 Last Admin: 06/08/19 21:10 Dose: 20 mg Documented by: Tamsulosin HCl (Flomax) 0.4 mg PO [facility] Stop: 07/06/19 20:59 Last Admin: 06/08/19 21:10 Dose: 0.4 mg Documented by: Vitamin B Complex/Folic Acid (Nephrocaps) 1 cap PO DAILY [facility] Stop: 07/07/19 08:59 Last Admin: 06/08/19 08:15 Dose: 1 cap Documented by: PG Care Time/CCT Total # of Minutes Spent Total Time Spent with Patient: Total time spent is greater than 50% in coordination of care (as documented) at patient's floor/unit and/or counseling patient: (1) Hypothyroidism Hypothyroidism type: acquired Qualified Code(s): E03.9 - Hypothyroidism, unspecified (2) Hypertension Hypertension type: essential hypertension Qualified Code(s): I10 - Essential (primary) hypertension (3) Diabetes Diabetes mellitus type: type 2 Diabetes mellitus terminal operator insulin use: with terminal operator use Diabetes mellitus complication status: with kidney complications Diabetes mellitus complication detail: with chronic kidney disease Chronic kidney disease stage: on chronic dialysis Qualified Code(s): E11.22 - Type 2 diabetes mellitus with diabetic chronic kidney disease; N18.6 - End stage renal disease; 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
[2019-06-09] MEDS: PANTOprazole 40 MG in DEXTROSE 5% 100 ML IV SCH ×6 (00:06→23:47)
[2019-06-09] MEDS: LEVOTHYROXINE SODIUM 200 MCG TABLET PO SCH (06:20)
[2019-06-09] MEDS: LEVOTHYROXINE SODIUM 75 MCG TABLET PO SCH (06:20)
[2019-06-09] MEDS: BUMETANIDE 1 MG TAB PO SCH ×2 (06:20→17:50)
[2019-06-09 06:35] LABS: Hematocrit (blood only) 25.2 % (42-52); Hemoglobin 8.2 g/dL (14.0-18.0); Mean Corpuscular Hemoglobin 29.7 pg (25-34); Mean Corpuscular Hgb Conc 32.5 g/dL (32-36); Mean Corpuscular Volume 91.3 fL (80-100); Mean Platelet Volume 9.6 fL (7.4-10.4); Platelet Count 177 K/uL (130-400); RDW Coefficient of Variation 15.8 % (11.5-14.5); RDW Standard Deviation 52.1 fL (36.4-46.3); Red Blood Count 2.76 M/uL (4.7-6.1); White Blood Count 5.17 K/uL (4.8-10.8)
[2019-06-09] MEDS ORDERED: SODIUM CHLORIDE 0.9% 1000ML 1,000 ML IV PRN (07:00)
[2019-06-09 07:11] LABS: BUN Creatinine Ratio 8.8 (10-20); Calcium 8.6 mg/dl (8.5-10.1); Creatinine Clr Calc Pharmacy 8.9 ml/min; Est GFR (African American) 6.3; Est GFR (Non-African American) 5.5; Potassium 3.7 mmol/L (3.5-5.1)
[2019-06-09] MEDS: DOCUSATE SODIUM 100 MG CAP PO SCH (07:58)
[2019-06-09] MEDS: guaiFENesin 600 MG TABCR PO SCH ×2 (07:58→22:30)
[2019-06-09] MEDS: FERROUS SULFATE 325 MG TAB PO SCH ×2 (07:59→22:29)
[2019-06-09] MEDS: FLUTICASONE PROPIONATE NA SPR 16 GM BTL SCH ×2 (07:59→22:29)
[2019-06-09] MEDS: DOXAZOSIN MESYLATE 1 MG TAB PO SCH (07:59)
[2019-06-09] MEDS: CALCIUM ACETATE 667 MG CAP PO SCH ×3 (07:59→16:13)
[2019-06-09] MEDS: MULTIVITAMIN TAB PO SCH (07:59)
[2019-06-09] MEDS: NEPHROCAPS PO SCH (07:59)
[2019-06-09] MEDS: INSULIN ASPART 100 UNITS/ML 3 ML PEN SC SCH ×5 (08:01→22:30)
--- NOTE | 2019-06-09 10:47 | Nephrology Progress Note ---
Date of Service June 09, 2019 Assessment & Plan (1) ESRD (end stage renal disease) on dialysis: ESRD due to diabetic nephropathy. Dialyzes TTS at [facility]. Admitted due to recurrent UGI bleeding. PMH: HTN, AODM, vascular dementia, IgG monoclonal gammopathy, EFREN, BPH, hypothyroidism, and CHF w/ diastolic dysfunction. Admitted with recurrent GIB, Hb 6.9, Hb improved to 8.6 after 2 PRBC. Recent >1 week inpatient at [facility], 3 EGD and 8 PRBC, but Hb dropped with GIB again within 1 week of discharge. He has not been on any antiplatelet and has been getting maximum dose of Mircera ( NEMESIO) and iron infusion at the out pt dialysis unit. He was found to have gastric ulceration and GI is planning to start him on Carafate and check for H pylori, EGD did not show any active bleeding -- tolerating dialysis currently, asymptomatic. -- Protect L arm HD access -- okay to be discharged from Nephrology standpoint --will continue on iron and NEMESIO at the dialysis unit as per protocol (2) GAVE (gastric antral vascular ectasia): Subjective Don was seen and examined while he is getting dialysis this morning. Overall he is feeling well today, denies any symptom, tolerating hemodialysis. Had EGD yesterday, had multiple duodenal polyp, vascular ectasia and gastric ulceration however no active bleeding. Hemoglobin slightly dropped again to 8.2 from 8.6 yesterday. He Review of Systems Review of Systems: All systems reviewed & are unremarkable except as noted in HPI & below Physical Exam Constitutional: + ill appearing; no acute distress Respiratory: normal respiratory effort, lungs clear to auscultation Cardiovascular: Rate/Rhythm: regular rate and regular rhythm Heart Sounds: normal S1 and normal S2 Extremities: + edema Neurologic: moves all extremities and awake; not confused Psychiatric: A+Ox3, euthymic affect Results & Data Vital Signs (Past 12 Hours) Vital Signs Temp Pulse Pulse Resp BP BP Pulse Ox 06/09/19 10:20 68 187/75 H 06/09/19 10:00 66 177/66 H 06/09/19 09:40 64 175/65 H 06/09/19 09:20 63 176/70 H 06/09/19 09:15 36.2 C L 65 65 177/75 H 06/09/19 07:42 36.5 C 66 18 149/76 H 95 06/09/19 02:40 36.4 C L 65 18 156/66 H 93 06/08/19 23:18 36.5 C 63 18 138/69 93 PG Care Time/CCT Total # of Minutes Spent Total Time Spent with Patient: Total time spent is greater than 50% in coordination of care (as documented) at patient's floor/unit and/or counseling patient:
--- NOTE | 2019-06-09 10:50 | Anesthesiology Progress Note ---
Date of Service June 09, 2019 Anesthesia Post Procedure Vital Signs Vital Signs: Temp Pulse Pulse Resp BP BP Pulse Ox 06/09/19 10:40 65 158/53 H 06/09/19 10:20 68 187/75 H 06/09/19 10:00 66 177/66 H 06/09/19 09:40 64 175/65 H 06/09/19 09:20 63 176/70 H 06/09/19 09:15 36.2 C L 65 65 177/75 H 06/09/19 07:42 36.5 C 66 18 149/76 H 95 06/09/19 02:40 36.4 C L 65 18 156/66 H 93 06/08/19 23:18 36.5 C 63 18 138/69 93 06/08/19 18:44 36.5 C 63 20 167/79 H 95 06/08/19 14:50 69 178/64 H 90 06/08/19 14:45 36.3 C L 61 19 186/68 H 92 06/08/19 14:30 62 16 173/67 H 94 06/08/19 14:14 65 17 153/70 H 94 06/08/19 14:00 65 16 148/80 H 93 06/08/19 13:45 65 18 133/72 95 06/08/19 13:05 36.8 C 60 16 186/69 H 94 06/08/19 11:01 36.7 C 63 19 179/60 H 94 Pain Intensity Bilateral Leg: Pain Intensity: 0 Notes Mental Status: alert / awake / arousable and participated in evaluation Patient Amnestic to Procedure: Yes Nausea / Vomiting: adequately controlled Pain: adequately controlled Airway Patency, RR, SpO2: stable & adequate BP & HR: stable & adequate Hydration State: stable & adequate Anesthetic Complications: no major complications apparent
[2019-06-09] MEDS ORDERED: IRON SUCROSE 100 MG in SYRINGE 0 ML IV ONE (12:45)
--- NOTE | 2019-06-09 13:45 | Hospitalist Progress Note ---
Date of Service June 09, 2019 Assessment & Plan (1) Acute blood loss anemia: Presumed 2nd to upper GI bleeding. s/p 2 units PRBCs on admission Hb stable today at 8.6 allow clear liquids then advance as tolerated EGD 06/08 with non bleeding gastric ulcer, some erythema, gastric polyps started on Carafate per GI Had EGD 04/2019 at [facility] with Dr White from [facility]. During the April EGD he had numerous gastric polyps and numerous angioectasias. Treated with APC. Then, s/p 2 EGDs at [place] 1-2 weeks ago -- 05/25 and 05/28 (see this note for details of those endoscopies). continue Protonix IV repeat Hb tomorrow AM, monitor for any further melena (2) Upper gastrointestinal bleed: see "acute blood loss anemia" above. Serial H/H's. Tx for Hb <7. GI consult. PPI drip. Hb is 8.6, it is stable monitor for any further melena or drop in Hb (3) GAVE (gastric antral vascular ectasia): as seen in April and May EGDs. GI recommends checking for other causes of anemia - especially hemolysis. Sosa el wnl. appreciate hematology consult, could be due to iron deficiency no signs of uremia no signs of hemolysis may need to take a transfuse as needed approach (4) Obstructive sleep apnea: -Does not use CPAP, continue supplemental O2 as needed (5) Hypothyroidism: last few TSH checks have all been high. noncompliance? medical record suggests h/o noncompliance. would simply continue levothyroxine 275mcg daily. encourage compliance. repeat TSH 3-4 weeks. (6) Hypertension: cont home meds (7) ESRD (end stage renal disease) on dialysis: nephrology consult requested for HD needs. scheduled: //Sat. cont calcium acetate TID w/ meals. (8) Diabetes: Glycemic consult placed to pharmacy. Appreciate their assistance. Control adequate at this time. monitor for hypoglycemia (9) Depression: noted (10) COPD (chronic obstructive pulmonary disease): no exacerbation at this time Physical Exam Constitutional: WD/WN, vitals as above Eyes: PERRL, conjunctivae normal, anicteric sclerae ENMT: external ear and nose normal, oropharynx normal Neck: trachea midline, no thyromegaly Respiratory: normal respiratory effort, lungs clear to auscultation Cardiovascular: RRR, no murmur, no edema Gastrointestinal (Abdomen): normal bowel sounds, soft, nontender, no hepatosplenomegaly Musculoskeletal: no cyanosis or clubbing, extremities motor strength 5/5 Skin: no rashes, warm and dry Neurologic: patellar DTR's 2+ bilat, sensation intact and PERRL, EOMI, accommodation nl, no face palsy, no dysarthria Psychiatric: A+Ox3, euthymic affect Lymphatic: no cervical or axillary lymphadenopathy Results & Data Vital Signs (Past 12 Hours) Vital Signs Temp Pulse Pulse Resp BP BP Pulse Ox 06/09/19 13:00 73 193/83 H 06/09/19 12:40 70 192/82 H 06/09/19 12:20 68 184/72 H 06/09/19 12:00 71 151/60 H 06/09/19 11:43 36.9 C 74 20 170/84 H 96 06/09/19 11:40 67 155/55 H 06/09/19 11:20 71 180/83 H 06/09/19 11:00 70 178/82 H 06/09/19 10:40 65 158/53 H 06/09/19 10:20 68 187/75 H 06/09/19 10:00 66 177/66 H 06/09/19 09:40 64 175/65 H 06/09/19 09:20 63 176/70 H 06/09/19 09:15 36.2 C L 65 65 177/75 H 06/09/19 07:42 36.5 C 66 18 149/76 H 95 06/09/19 02:40 36.4 C L 65 18 156/66 H 93 Laboratory Results Laboratory Results - last 24 hr 06/06/19 06/08/19 06/08/19 12:52 06:08 16:07 WBC RBC Hgb Hct MCV MCH MCHC RDW Std Deviation RDW Coeff of Jose C Plt Count MPV Haptoglobin 232 H Sodium Potassium Chloride Carbon Dioxide Anion Gap BUN Creatinine Est Cr Clr Drug Dosing Est GFR ( Amer) Est GFR (Non-Af Amer) BUN/Creatinine Ratio Glucose POC Glucose 126 H Calcium Magnesium Crossmatch See Detail 06/08/19 06/09/19 06/09/19 20:42 06:15 06:15 WBC 5.17 RBC 2.76 L Hgb 8.2 L Hct 25.2 L MCV 91.3 MCH 29.7 MCHC 32.5 RDW Std Deviation 52.1 H RDW Coeff of Jose C 15.8 H Plt Count 177 MPV 9.6 Haptoglobin Sodium 137 Potassium 3.7 Chloride 98 Carbon Dioxide 29 Anion Gap 9.0 BUN 75 H Creatinine 8.46 H* D Est Cr Clr Drug Dosing 8.9 Est GFR ( Amer) 6.3 Est GFR (Non-Af Amer) 5.5 BUN/Creatinine Ratio 8.8 L Glucose 126 H POC Glucose 253 H Calcium 8.6 Magnesium 2.0 Crossmatch 06/09/19 06/09/19 07:18 11:18 WBC RBC Hgb Hct MCV MCH MCHC RDW Std Deviation RDW Coeff of Jose C Plt Count MPV Haptoglobin Sodium Potassium Chloride Carbon Dioxide Anion Gap BUN Creatinine Est Cr Clr Drug Dosing Est GFR ( Amer) Est GFR (Non-Af Amer) BUN/Creatinine Ratio Glucose POC Glucose 133 H 128 H Calcium Magnesium Crossmatch Medications Administered Current Inpatient Medications Acetaminophen (Tylenol) 650 mg PO Q4H PRN PRN Reason: Moderate Pain Stop: 07/06/19 18:42 Bumetanide (Bumex) 1 mg PO DAILY@0700,1900 [facility] Stop: 07/06/19 19:29 Last Admin: 06/09/19 06:20 Dose: 1 mg Documented by: Calcium Acetate (Phoslo) 2,001 mg PO TIDM [facility] Stop: 07/06/19 19:29 Last Admin: 06/09/19 13:41 Dose: 2,001 mg Documented by: Dextrose (Dextrose 50%) 25 - 50 ml IV UD PRN; Protocol PRN Reason: Hypoglycemia Protocol Stop: 07/06/19 18:42 Docusate Sodium (Colace) 200 mg PO QAM [facility] Stop: 07/07/19 08:59 Last Admin: 06/09/19 07:58 Dose: 200 mg Documented by: Doxazosin Mesylate (Cardura) 1 mg PO DAILY [facility] Stop: 07/07/19 08:59 Last Admin: 06/09/19 07:59 Dose: 1 mg Documented by: Ferrous Sulfate (Feosol) 325 mg PO BID [facility] Stop: 07/06/19 20:59 Last Admin: 06/09/19 07:59 Dose: 325 mg Documented by: Fluticasone Propionate (Flonase) 1 sprays NA BID [facility] Stop: 07/07/19 08:59 Last Admin: 06/09/19 07:59 Dose: 1 sprays Documented by: Gabapentin (Neurontin) 200 mg PO [facility] Stop: 07/06/19 20:59 Last Admin: 06/08/19 21:09 Dose: 200 mg Documented by: Glucagon (Glucagen) 1 mg SQ UD PRN; Protocol PRN Reason: Hypoglycemia Protocol Stop: 07/06/19 18:42 Glucose (Dex4 Glucose) 4 - 8 tabs PO UD PRN; Protocol PRN Reason: Hypoglycemia Protocol Stop: 07/06/19 18:42 Glucose (Glucose 40%) 15 - 30 gm PO UD PRN; Protocol PRN Reason: Hypoglycemia Protocol Stop: 07/06/19 18:42 Guaifenesin (Mucinex) 1,200 mg PO Q12 [facility] Stop: 07/07/19 08:59 Last Admin: 06/09/19 07:58 Dose: 1,200 mg Documented by: Pantoprazole Sodium 40 mg/ (Dextrose) 100 mls @ 20 mls/hr IV Q5H [facility] Stop: 07/07/19 08:14 Last Admin: 06/09/19 08:27 Dose: 20 mls/hr Documented by: Insulin Aspart (Novolog Flexpen) 0 units SC ACHS [facility] Stop: 07/06/19 19:29 Last Admin: 06/09/19 08:01 Dose: 3 units Documented by: Insulin Detemir (Levemir Flextouch) 8 units SC [facility] Stop: 07/06/19 20:59 Last Admin: 06/08/19 21:13 Dose: 8 units Documented by: Levothyroxine Sodium (Synthroid) 75 mcg PO DAILYBB [facility] Stop: 07/07/19 06:29 Last Admin: 06/09/19 06:20 Dose: 75 mcg Documented by: Levothyroxine Sodium (Synthroid) 200 mcg PO DAILYBB [facility] Stop: 07/07/19 06:29 Last Admin: 06/09/19 06:20 Dose: 200 mcg Documented by: Miscellaneous (Order Awaiting Action) 1 ea N/A QS [facility] Stop: 07/07/19 00:00 Last Admin: 06/09/19 07:58 Dose: Not Given Documented by: Miscellaneous (Carbohydrates For Hypoglycemia) 15 - 30 gm PO UD PRN PRN Reason: Hypoglycemia Protocol Stop: 07/06/19 18:42 Multivitamins (Multivitamin Tab) 1 tab PO DAILY [facility] Stop: 07/07/19 08:59 Last Admin: 06/09/19 07:59 Dose: 1 tab Documented by: Ondansetron HCl (Zofran) 4 mg IV Q4H PRN PRN Reason: Nausea And Vomiting Stop: 07/06/19 18:42 Polyethylene Glycol (Miralax Powder Packet) 17 gm PO DAILY PRN PRN Reason: Constipation Stop: 07/08/19 05:42 Last Admin: 06/08/19 05:59 Dose: 17 gm Documented by: Rosuvastatin Calcium (Crestor) 20 mg PO HS [facility] Stop: 07/06/19 20:59 Last Admin: 06/08/19 21:10 Dose: 20 mg Documented by: Tamsulosin HCl (Flomax) 0.4 mg PO HS [facility] Stop: 07/06/19 20:59 Last Admin: 06/08/19 21:10 Dose: 0.4 mg Documented by: Vitamin B Complex/Folic Acid (Nephrocaps) 1 cap PO DAILY [facility] Stop: 07/07/19 08:59 Last Admin: 06/09/19 07:59 Dose: 1 cap Documented by: PG Care Time/CCT Total # of Minutes Spent Total Time Spent with Patient: Total time spent is greater than 50% in coordination of care (as documented) at patient's floor/unit and/or counseling patient: (1) Hypothyroidism Hypothyroidism type: acquired Qualified Code(s): E03.9 - Hypothyroidism, unspecified (2) Hypertension Hypertension type: essential hypertension Qualified Code(s): I10 - Essential (primary) hypertension (3) Diabetes Diabetes mellitus type: type 2 Diabetes mellitus correction insulin use: with correction use Diabetes mellitus complication status: with kidney complications Diabetes mellitus complication detail: with chronic kidney disease Chronic kidney disease stage: on chronic dialysis Qualified Code(s): E11.22 - Type 2 diabetes mellitus with diabetic chronic kidney disease; N18.6 - End stage renal disease; Z79.4 - group home (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 (4) Depression Depression Type: other depression Qualified Code(s): F32.89 - Other specified depressive episodes (5) COPD (chronic obstructive pulmonary disease) COPD type: unspecified COPD Qualified Code(s): J44.9 - Chronic obstructive pulmonary disease, unspecified
[2019-06-09 14:23] LABS: Hematocrit (blood only) 28.6 % (42-52); Hemoglobin 9.1 g/dL (14.0-18.0)
--- NOTE | 2019-06-09 15:24 | Discharge Summary ---
Date of Service June 09, 2019 Admission HPI Per Admitting Provider For EGD Discharge Data Allergies Allergy/AdvReac Type Severity Reaction Status Date / Time tramadol AdvReac Severe disorented Verified 06/06/19 14:12 ,falling down metformin AdvReac Intermediate CONFUSION Verified 06/06/19 14:12 Consultations 06/06/19 13:57 ED Decision to Admit Stat 06/06/19 18:43 Consult Case Management - Discharge Planning Routine Consult Nephrology Routine 06/07/19 07:50 Consult Gastroenterology Routine 06/07/19 13:37 Consult Hematology Routine Procedures Performed Operation Date: 06/08/19 16:55 Actual Procedures p Esophagogastroduodenoscopy - Mando White Ordered Studies 06/07/19 13:14 CT abd pelvis wo con Urgent Hospital Course (1) Acute blood loss anemia: Presumed 2nd to upper GI bleeding. s/p 2 units PRBCs on admission Hb stable today at 8.6 allow clear liquids then advance as tolerated EGD 06/08 with non bleeding gastric ulcer, some erythema, gastric polyps started on Carafate per GI Had EGD 04/2019 at [facility] with Dr White from [facility]. During the April EGD he had numerous gastric polyps and numerous angioectasias. Treated with APC. Then, s/p 2 EGDs at [place] 1-2 weeks ago -- 05/25 and 05/28 (see this note for details of those endoscopies). continue Protonix IV repeat Hb tomorrow AM, monitor for any further melena (2) Upper gastrointestinal bleed: see "acute blood loss anemia" above. Serial H/H's. Tx for Hb <7. GI consult. PPI drip. Hb is 8.6, it is stable monitor for any further melena or drop in Hb (3) GAVE (gastric antral vascular ectasia): as seen in April and May EGDs. GI recommends checking for other causes of anemia - especially hemolysis. TMihai bileduardo wnl. appreciate hematology consult, could be due to iron deficiency no signs of uremia no signs of hemolysis may need to take a transfuse as needed approach (4) Obstructive sleep apnea: -Does not use CPAP, continue supplemental O2 as needed (5) Hypothyroidism: last few TSH checks have all been high. noncompliance? medical record suggests h/o noncompliance. would simply continue levothyroxine 275mcg daily. encourage compliance. repeat TSH 3-4 weeks. (6) Hypertension: cont home meds (7) ESRD (end stage renal disease) on dialysis: nephrology consult requested for HD needs. scheduled: //Sat. cont calcium acetate TID w/ meals. (8) Diabetes: Glycemic consult placed to pharmacy. Appreciate their assistance. Control adequate at this time. monitor for hypoglycemia (9) Depression: noted (10) COPD (chronic obstructive pulmonary disease): no exacerbation at this time Discharge Plan Discharge Items Patient Disposition: Home - Self-Care Reason For Visit: ANEMIC, GIB Discharge Diagnosis: Anemia GI bleed ESRD on hemodialysis Iron deficiency Condition on Discharge: Good Goals: improve strength and mobility monitor for any signs of GI bleeding follow up for hemodialysis on Activity: Resume your previous activity Non-emergency contact: Primary Care Provider Call non-emergency contact if: you have any medication questions Follow-up/Referrals: Mahsa Wang DO [Primary Care Provider] - Diet: Carb Consistent or DM2 and Dialysis Renal Addtl Attending Provider Instructions: Medications: all prior medications will be the same - CARAFATE: recommended by gastroenterology, take 4 times a day, (with meals and bedtime) will take for 2 months then stop Acute GI bleed, recurrent anemia hemoglobin is stable, actually up to 9.1 today hemoglobin has been stable for three days, no signs of active bleeding safe to discharge to home continue on Protonix 40mg twice a day and Carafate four times a day EGD on 06/08/19 showed non-bleeding gastric ulcer, some erythema of stomach but otherwise stable FOLLOW UP - hemodialysis on as normally scheduled - recommend follow up with Dr. Wang in one week, call her office for appt would recommend checking hemoglobin at that time Pending Studies at Discharge: No Stand-Alone Forms: My [employer], Smoking Cessation Medications and DC Order Prescriptions: New sucralfate [Carafate] 1 gram tablet 1 gm PO QID 28 Days Qty: 112 RF: 1 Continued gabapentin 100 mg capsule 200 mg PO HS Qty: 60 RF: 5 lisinopril 40 mg tablet 40 mg PO DAILY@1200 Qty: 90 RF: 3 doxazosin [Cardura] 1 mg tablet 1 mg PO DAILY Qty: 30 RF: 5 calcium acetate 667 mg tablet 2,001 mg PO TIDM RF: 0 bumetanide 1 mg tablet 1 mg PO BID Qty: 60 RF: 2 hydralazine 25 mg tablet 50 mg PO Q8 RF: 0 ferrous sulfate 325 mg (65 mg iron) tablet,delayed release (DR/EC) 325 mg PO BID Qty: 60 RF: 0 darbepoetin rasheed in polysorbat 60 mcg/mL solution 60 mcg subcut .COMPLEX Qty: 4 RF: 0 amlodipine 10 mg tablet 10 mg PO HS Qty: 90 RF: 0 docusate sodium 100 mg capsule 200 mg PO QAM Qty: 30 RF: 0 Levemir U-100 Insulin 100 unit/mL solution 15 units subcut HS RF: 0 Renal Caps 1 mg Capsule 1 cap PO DAILY RF: 0 tamsulosin 0.4 mg capsule 0.4 mg PO HS Qty: 90 RF: 1 levothyroxine 200 mcg tablet 200 mcg PO QAM RF: 0 levothyroxine 75 mcg tablet 75 mcg PO DAILY RF: 0 Boost Glucose Control 0.06-1.1 gram-kcal/mL Liquid 1 ea PO TIDM RF: 0 rosuvastatin 20 mg tablet 20 mg PO HS RF: 0 pantoprazole 40 mg tablet,delayed release (DR/EC) 40 mg PO AMPM RF: 0 multivitamin Tablet 1 tab PO DAILY RF: 0 labetalol 200 mg Tablet 200 mg PO BID RF: 0 Novolog U-100 Insulin aspart 100 unit/mL solution See Rx Instructions .ROUTE .COMPLEX RF: 0 Discharge Orders: Discharge Order (Routine); Ordered 06/09/19 Ordered By: Raphael Kemp Admission Data Admit Date/Time: 06/06/19 14:35 Attending Provider: aRphael Kemp Admit Provider: Raina Funes Primary Care Provider: Mahsa Wang Other Providers: Raina Funes ; Eugene Busby ; Terrence Bangura ; Jersey Forrest V Other Interventions: Discharge Summary Assessment (RN) Last Done: 06/08/19 14:07
[2019-06-09] MEDS ORDERED: HydrALAZINE TAB 50 MG TAB PO STA (15:43)
--- NOTE | 2019-06-09 16:50 | Progress Note ---
DATE: 06/09/2019 SUBJECTIVE: The patient has had no overt GI bleeding and his hemoglobin has remained stable at 9.1, if anything, it is up a little bit higher. He is getting dialyzed today. His blood pressure is running a little bit high, which should improve with dialysis. Earlier today was 200/85. Ordered a stool for H. pylori, which is pending and I ordered Carafate 4 times a day in addition to the Protonix to treat his gastric ulcer. IMPRESSION: The patient is stable hemodynamically and is on proton pump inhibitor and Carafate for his gastric ulcer. We will await the results of his stool Helicobacter pylori and follow up as needed.
[2019-06-09] MEDS: SUCRALFATE 1 GM TAB PO SCH ×2 (17:49→22:28)
[2019-06-09] MEDS ORDERED: AMLODIPINE BESYLATE 5 MG TAB PO SCH (21:00)
[2019-06-09] MEDS: ROSUVASTATIN CALCIUM 20 MG TAB PO SCH (22:28)
[2019-06-09] MEDS: INSULIN DETEMIR FLEXPEN/FLEX TOUCH 100 UNITS/ML 3ML SC SCH (22:29)
[2019-06-09] MEDS: TAMSULOSIN HCL 0.4 MG CAP PO SCH (22:29)
[2019-06-09] MEDS: LABETALOL HCL 200 MG TAB PO SCH (22:30)
[2019-06-09] MEDS: GABAPENTIN 100 MG CAP PO SCH (22:30)
[2019-06-09] MEDS: HydrALAZINE TAB 50 MG TAB PO SCH (22:31)
--- NOTE | 2019-06-09 23:33 | Hospitalist Progress Note ---
Date of Service June 09, 2019 Assessment & Plan (1) Acute blood loss anemia: Presumed 2nd to upper GI bleeding. 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 During the April EGD he had numerous gastric polyps and numerous angioectasias. Treated with APC. Then, s/p 2 EGDs at [place] 1-2 weeks ago -- 05/25 and 05/28 (see this note for details of those endoscopies). continue Protonix IV (2) Upper gastrointestinal bleed: see "acute blood loss anemia" above. Serial H/H's. Tx for Hb <7. GI consult. PPI drip. Hb is 9, it is stable monitor for any further melena or drop in Hb, no signs of bleeding at this point (3) GAVE (gastric antral vascular ectasia): as seen in April and May EGDs. GI recommends checking for other causes of anemia - especially hemolysis. Sosa el wnl. appreciate hematology consult, could be due to iron deficiency will give Venofer today patient needs to be getting EPO with HD no signs of uremia no signs of hemolysis may need to take a transfuse as needed approach (4) Obstructive sleep apnea: -Does not use CPAP, continue supplemental O2 as needed (5) Hypothyroidism: last few TSH checks have all been high. noncompliance? medical record suggests h/o noncompliance. would simply continue levothyroxine 275mcg daily. encourage compliance. repeat TSH 3-4 weeks. (6) Hypertension: cont home meds (7) ESRD (end stage renal disease) on dialysis: nephrology consult requested for HD needs. scheduled: //Sat. cont calcium acetate TID w/ meals. HD today, tolerated well, will get again on (8) Diabetes: Glycemic consult placed to pharmacy. Appreciate their assistance. Control adequate at this time. monitor for hypoglycemia (9) Depression: noted (10) COPD (chronic obstructive pulmonary disease): no exacerbation at this time Subjective patient doing well today tolerated HD, no problems, got a dose of Venofer at the end, recommended by Dr. Simmons reviewed PT/OT notes, scored > 20 on both assessments, okay to go home with home health Hb is stable, up to 9.1 this afternoon no melena discussed plan with patient's son over the phone, he cannot get the patient today, can come in tomorrow morning he stressed that the patient should NOT be on carafate, he had issues with aluminum toxicity in the past Review of Systems Review of Systems: All systems reviewed & are unremarkable except as noted in HPI & below Physical Exam Constitutional: WD/WN, vitals as above Eyes: PERRL, conjunctivae normal, anicteric sclerae ENMT: external ear and nose normal, oropharynx normal Neck: trachea midline, no thyromegaly Respiratory: normal respiratory effort, lungs clear to auscultation Cardiovascular: RRR, no murmur, no edema Gastrointestinal (Abdomen): normal bowel sounds, soft, nontender, no hepatosplenomegaly Musculoskeletal: no cyanosis or clubbing, extremities motor strength 5/5 Skin: no rashes, warm and dry Neurologic: patellar DTR's 2+ bilat, sensation intact and PERRL, EOMI, accommodation nl, no face palsy, no dysarthria Psychiatric: A+Ox3, euthymic affect Lymphatic: no cervical or axillary lymphadenopathy Results & Data Vital Signs (Past 12 Hours) Vital Signs Temp Pulse Pulse Resp BP BP Pulse Ox 06/09/19 22:28 207/73 H 06/09/19 19:14 36.9 C 72 20 182/62 H 94 06/09/19 16:00 71 06/09/19 13:17 36.7 C 71 71 200/85 H 200/85 H 06/09/19 13:00 73 193/83 H 06/09/19 12:40 70 192/82 H 06/09/19 12:20 68 184/72 H 06/09/19 12:00 71 151/60 H 06/09/19 11:43 36.9 C 74 20 170/84 H 96 06/09/19 11:40 67 155/55 H Laboratory Results Laboratory Results - last 24 hr 06/06/19 06/08/19 06/09/19 12:52 06:08 06:15 WBC RBC Hgb Hct MCV MCH MCHC RDW Std Deviation RDW Coeff of Jose C Plt Count MPV Haptoglobin 232 H Sodium 137 Potassium 3.7 Chloride 98 Carbon Dioxide 29 Anion Gap 9.0 BUN 75 H Creatinine 8.46 H* D Est Cr Clr Drug Dosing 8.9 Est GFR ( Amer) 6.3 Est GFR (Non-Af Amer) 5.5 BUN/Creatinine Ratio 8.8 L Glucose 126 H POC Glucose Calcium 8.6 Magnesium 2.0 Crossmatch See Detail 06/09/19 06/09/19 06/09/19 06:15 07:18 11:18 WBC 5.17 RBC 2.76 L Hgb 8.2 L Hct 25.2 L MCV 91.3 MCH 29.7 MCHC 32.5 RDW Std Deviation 52.1 H RDW Coeff of Jose C 15.8 H Plt Count 177 MPV 9.6 Haptoglobin Sodium Potassium Chloride Carbon Dioxide Anion Gap BUN Creatinine Est Cr Clr Drug Dosing Est GFR ( Amer) Est GFR (Non-Af Amer) BUN/Creatinine Ratio Glucose POC Glucose 133 H 128 H Calcium Magnesium Crossmatch 06/09/19 06/09/19 06/09/19 14:15 16:12 19:46 WBC RBC Hgb 9.1 L Hct 28.6 L MCV MCH MCHC RDW Std Deviation RDW Coeff of Jose C Plt Count MPV Haptoglobin Sodium Potassium Chloride Carbon Dioxide Anion Gap BUN Creatinine Est Cr Clr Drug Dosing Est GFR ( Amer) Est GFR (Non-Af Amer) BUN/Creatinine Ratio Glucose POC Glucose 158 H 204 H Calcium Magnesium Crossmatch Medications Administered Current Inpatient Medications Acetaminophen (Tylenol) 650 mg PO Q4H PRN PRN Reason: Moderate Pain Stop: 07/06/19 18:42 Amlodipine Besylate (Norvasc) 10 mg PO HS [facility] Stop: 07/09/19 20:59 Last Admin: 06/09/19 22:30 Dose: 10 mg Documented by: Bumetanide (Bumex) 1 mg PO DAILY@0700,1900 [facility] Stop: 07/06/19 19:29 Last Admin: 06/09/19 17:50 Dose: 1 mg Documented by: Calcium Acetate (Phoslo) 2,001 mg PO TIDM [facility] Stop: 07/06/19 19:29 Last Admin: 06/09/19 16:13 Dose: 2,001 mg Documented by: Dextrose (Dextrose 50%) 25 - 50 ml IV UD PRN; Protocol PRN Reason: Hypoglycemia Protocol Stop: 07/06/19 18:42 Docusate Sodium (Colace) 200 mg PO QAM [facility] Stop: 07/07/19 08:59 Last Admin: 06/09/19 07:58 Dose: 200 mg Documented by: Doxazosin Mesylate (Cardura) 1 mg PO DAILY [facility] Stop: 07/07/19 08:59 Last Admin: 06/09/19 07:59 Dose: 1 mg Documented by: Ferrous Sulfate (Feosol) 325 mg PO BID [facility] Stop: 07/06/19 20:59 Last Admin: 06/09/19 22:29 Dose: Not Given Documented by: Fluticasone Propionate (Flonase) 1 sprays NA BID [facility] Stop: 07/07/19 08:59 Last Admin: 06/09/19 22:29 Dose: 1 sprays Documented by: Gabapentin (Neurontin) 200 mg PO HS [facility] Stop: 07/06/19 20:59 Last Admin: 06/09/19 22:30 Dose: Not Given Documented by: Glucagon (Glucagen) 1 mg SQ UD PRN; Protocol PRN Reason: Hypoglycemia Protocol Stop: 07/06/19 18:42 Glucose (Dex4 Glucose) 4 - 8 tabs PO UD PRN; Protocol PRN Reason: Hypoglycemia Protocol Stop: 07/06/19 18:42 Glucose (Glucose 40%) 15 - 30 gm PO UD PRN; Protocol PRN Reason: Hypoglycemia Protocol Stop: 07/06/19 18:42 Guaifenesin (Mucinex) 1,200 mg PO Q12 [facility] Stop: 07/07/19 08:59 Last Admin: 06/09/19 22:30 Dose: Not Given Documented by: Hydralazine HCl (Apresoline) 50 mg PO Q8 [facility] Stop: 07/09/19 21:59 Last Admin: 06/09/19 22:31 Dose: 50 mg Documented by: Pantoprazole Sodium 40 mg/ (Dextrose) 100 mls @ 20 mls/hr IV Q5H [facility] Stop: 07/07/19 08:14 Last Admin: 06/09/19 18:42 Dose: 20 mls/hr Documented by: Insulin Aspart (Novolog Flexpen) 0 units SC ACHS [facility] Stop: 07/06/19 19:29 Last Admin: 06/09/19 22:30 Dose: Not Given Documented by: Insulin Detemir (Levemir Flextouch) 8 units SC [facility] Stop: 07/06/19 20:59 Last Admin: 06/09/19 22:29 Dose: Not Given Documented by: Labetalol HCl (Normodyne) 200 mg PO BID [facility] Stop: 07/09/19 20:59 Last Admin: 06/09/19 22:30 Dose: 200 mg Documented by: [facility]othy[facility]ine [facility]) [facility]: 07/07/19 06:29 Last Admin: 06/09/19 06:20 Dose: 75 mcg Documented by: Levothyroxine Sodium (Synthroid) [facility] Stop: 07/07/19 06:29 Last Admin: 06/09/19 06:20 Dose: 200 mcg Documented by: Miscellaneous (Order Awaiting Action) 1 ea N/A QS [facility] Stop: 07/07/19 00:00 Last Admin: 06/09/19 17:06 Dose: Not Given Documented by: Miscellaneous (Carbohydrates For Hypoglycemia) 15 - 30 gm PO UD PRN PRN Reason: Hypoglycemia Protocol Stop: 07/06/19 18:42 Multivitamins (Multivitamin Tab) 1 tab PO DAILY [facility] Stop: 07/07/19 08:59 Last Admin: 06/09/19 07:59 Dose: 1 tab Documented by: Ondansetron HCl (Zofran) 4 mg IV Q4H PRN PRN Reason: Nausea And Vomiting Stop: 07/06/19 18:42 Polyethylene Glycol (Miralax Powder Packet) 17 gm PO DAILY PRN PRN Reason: Constipation Stop: 07/08/19 05:42 Last Admin: 06/08/19 05:59 Dose: 17 gm Documented by: Rosuvastatin Calcium (Crestor) 20 mg PO [facility] Stop: 07/06/19 20:59 Last Admin: 06/09/19 22:28 Dose: Not Given Documented by: Sucralfate (Carafate Tab) 1 gm PO [facility] Stop: 07/09/19 16:29 Last Admin: 06/09/19 22:28 Dose: Not Given Documented by: Tamsulosin HCl (Flomax) 0.4 mg PO [facility] Stop: 07/06/19 20:59 Last Admin: 06/09/19 22:29 Dose: Not Given Documented by: Vitamin B Complex/Folic Acid (Nephrocaps) 1 cap PO DAILY [facility] Stop: 07/07/19 08:59 Last Admin: 06/09/19 07:59 Dose: 1 cap Documented by: PG Care Time/CCT Total # of Minutes Spent Total Time Spent with Patient: Total time spent is greater than 50% in coordination of care (as documented) at patient's floor/unit and/or counseling patient: (1) Hypothyroidism Hypothyroidism type: acquired Qualified Code(s): E03.9 - Hypothyroidism, unspecified (2) Hypertension Hypertension type: essential hypertension Qualified Code(s): I10 - Essential (primary) hypertension (3) Diabetes Diabetes mellitus type: type 2 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: with 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 conservation laborer use Diabetes mellitus complication status: with kidney complications Diabetes mellitus complication detail: with chronic kidney disease Chronic kidney disease stage: on chronic dialysis Qualified Code(s): E11.22 - Type 2 diabetes mellitus with diabetic chronic kidney disease; N18.6 - End stage renal disease; 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
[2019-06-10] MEDS: PANTOprazole 40 MG in DEXTROSE 5% 100 ML IV SCH ×2 (04:45→08:42)
[2019-06-10] MEDS: LEVOTHYROXINE SODIUM 75 MCG TABLET PO SCH (05:13)
[2019-06-10] MEDS: LEVOTHYROXINE SODIUM 200 MCG TABLET PO SCH (05:13)
[2019-06-10] MEDS: HydrALAZINE TAB 50 MG TAB PO SCH (05:13)
[2019-06-10 06:58] LABS: Hematocrit (blood only) 25.7 % (42-52); Hemoglobin 8.4 g/dL (14.0-18.0); Mean Corpuscular Hemoglobin 30.1 pg (25-34); Mean Corpuscular Hgb Conc 32.7 g/dL (32-36); Mean Corpuscular Volume 92.1 fL (80-100); Mean Platelet Volume 9.5 fL (7.4-10.4); Platelet Count 191 K/uL (130-400); RDW Coefficient of Variation 15.7 % (11.5-14.5); RDW Standard Deviation 50.7 fL (36.4-46.3); Red Blood Count 2.79 M/uL (4.7-6.1); White Blood Count 5.34 K/uL (4.8-10.8)
[2019-06-10] MEDS: SUCRALFATE 1 GM TAB PO SCH (08:10)
[2019-06-10] MEDS: FLUTICASONE PROPIONATE NA SPR 16 GM BTL SCH (08:10)
[2019-06-10] MEDS: DOCUSATE SODIUM 100 MG CAP PO SCH (08:11)
[2019-06-10] MEDS: guaiFENesin 600 MG TABCR PO SCH (08:11)
[2019-06-10] MEDS: BUMETANIDE 1 MG TAB PO SCH (08:11)
[2019-06-10] MEDS: DOXAZOSIN MESYLATE 1 MG TAB PO SCH (08:12)
[2019-06-10] MEDS: LABETALOL HCL 200 MG TAB PO SCH (08:12)
[2019-06-10] MEDS: FERROUS SULFATE 325 MG TAB PO SCH (08:12)
[2019-06-10] MEDS: NEPHROCAPS PO SCH (08:12)
[2019-06-10] MEDS: CALCIUM ACETATE 667 MG CAP PO SCH (08:12)
[2019-06-10] MEDS: MULTIVITAMIN TAB PO SCH (08:13)
[2019-06-10] MEDS: INSULIN ASPART 100 UNITS/ML 3 ML PEN SC SCH (08:15)
--- NOTE | 2019-06-10 10:39 | Nephrology Progress Note ---
Date of Service June 10, 2019 Assessment & Plan (1) ESRD (end stage renal disease) on dialysis: ESRD due to diabetic nephropathy. Dialyzes TTS at [facility]. Admitted due to recurrent UGI bleeding. PMH: HTN, AODM, vascular dementia, IgG monoclonal gammopathy, EFREN, BPH, hypothyroidism, and CHF w/ diastolic dysfunction. Admitted with recurrent GIB, Hb 6.9, Hb improved to 8.6 after 2 PRBC. Recent >1 week inpatient at [facility], 3 EGD and 8 PRBC, but Hb dropped with GIB again within 1 week of discharge. He has not been on any antiplatelet and has been getting maximum dose of Mircera ( NEMESIO) and iron infusion at the out pt dialysis unit. He was found to have gastric ulceration and GI is planning to start him on Carafate and check for H pylori, EGD did not show any active bleeding Had dialysis yesterday a. Currently electrolyte and volume status acceptable. Hemoglobin stable although there is slight drop compared to yesterday. -- Protect L arm HD access -- okay to be discharged, will have dialysis tomorrow as an outpatient --will continue on iron and ENMESIO at the dialysis unit as per protocol -- Should have follow-up with GI closely Will follow the (2) GAVE (gastric antral vascular ectasia): Subjective Don was seen and examined in his room this morning. Overall he is feeling well, denies any symptoms. Hemoglobin 8.4 this morning although there is some drop compared to yesterday. Denies any melena. Blood pressure stable. Volume status acceptable. Review of Systems Review of Systems: All systems reviewed & are unremarkable except as noted in HPI & below Physical Exam Constitutional: + ill appearing; no acute distress Respiratory: normal respiratory effort, lungs clear to auscultation Cardiovascular: RRR, no murmur, no edema Rate/Rhythm: regular rate and regular rhythm Heart Sounds: normal S1 and normal S2 Extremities: + edema Neurologic: moves all extremities and awake; not confused Psychiatric: A+Ox3, euthymic affect Results & Data Vital Signs (Past 12 Hours) Vital Signs Temp Pulse Resp BP Pulse Ox 06/10/19 09:53 36.6 C 63 20 161/78 H 93 06/10/19 07:36 36.6 C 63 20 161/78 H 93 06/10/19 05:16 36.8 C 69 16 155/68 H 06/09/19 23:30 37.1 C 69 19 184/69 H 93 PG Care Time/CCT Total # of Minutes Spent Total Time Spent with Patient: Total time spent is greater than 50% in coordination of care (as documented) at patient's floor/unit and/or counseling p atient:
--- NOTE | 2019-06-10 14:43 | Discharge Summary ---
Date of Service June 10, 2019 Admission HPI Per Admitting Provider This is a 79-year-old male with PMHx of CAD, chronic diastolic CHF, HTN, HLD, pulmonary hypertension, asthma, COPD, DM type II, CKD stage V on chronic dialysis, peripheral neuropathy, GERD, obstructive sleep apnea, secondary hyperparathyroidism, arthritis, anxiety, depression who presents to the ER with acute worsening of weakness and shortness of breath. The patient was recently admitted to [facility], actually was transferred from our facility on 05/23/2019 and was admitted there through 05/31/2019. This was for anemia secondary to upper GI bleed, gave, gastric ulcer with a hemoglobin of 5.6. Patient underwent his first EGD 04/27 here which showed gastric ectasias and treated with argon lasering, this was his fourth treatment for continued GI bleed. While at [facility] he required transfusion of 8 units PRBCs and also underwent 2 additional EGDs. A repeat EGD on 05/28 showed evidence of AVMs which were cauterized with with a gold probe. His bleeding was stabilized at [facility]. CT of the abdomen found a 1.3 cm exophytic cystic lesion in the pancreatic tail which was recommended to be followed up by MRI, this will need to be further evaluated once the patients anemia is more controlled. Today the prior patient presented to dialysis for his routinely scheduled session and completed it in its entirety. The main complaint today is that the patient started to feel extremely weak, fatigued, and slightly short of breath starting last evening. He was not doing great on his way into dialysis, and his and daughter who are at bedside report it was very difficult to get him into the car. His cable respooler, Dr. Mcfadden, was aware of low hemoglobin and had been scheduled for 2 units PRBCs to be transfused during dialysis on 06/08/2019. Due to his complaints of not feeling well his brought him to the ER. He was found to be anemic with Hgb equal 6.5, and is currently being transfused 1 unit. Patient reports intermittent nausea, lightheadedness and dizziness which also occurred throughout the day today. He currently feels okay, no specific complaints other than that already listed. Principal Diagnosis Anemia Discharge Exam Constitutional WD/WN, vitals as above Eyes PERRL, conjunctivae normal, anicteric sclerae ENMT external ear and nose normal, oropharynx normal Neck trachea midline, no thyromegaly Respiratory normal respiratory effort, lungs clear to auscultation Cardiovascular RRR, no murmur, no edema Gastrointestinal (Abdomen) normal bowel sounds, soft, nontender, no hepatosplenomegaly Musculoskeletal no cyanosis or clubbing, extremities motor strength 5/5 Skin no rashes, warm and dry Neurologic patellar DTR's 2+ bilat, sensation intact and PERRL, EOMI, accommodation nl, no face palsy, no dysarthria Psychiatric A+Ox3, euthymic affect Lymphatic no cervical or axillary lymphadenopathy Discharge Data Allergies Allergy/AdvReac Type Severity Reaction Status Date / Time sucralfate [From Carafate] Allergy Mild upset Verified 06/15/19 09:32 dialysis tramadol AdvReac Severe disorented Verified 06/15/19 09:32 ,falling down metformin AdvReac Intermediate CONFUSION Verified 06/15/19 09:32 Consultations 06/06/19 13:57 ED Decision to Admit Stat 06/06/19 18:43 Consult Case Management - Discharge Planning Routine Consult Nephrology Routine 06/07/19 07:50 Consult Gastroenterology Routine 06/07/19 13:37 Consult Hematology Routine Procedures Performed Operation Date: 06/08/19 16:55 Actual Procedures p Esophagogastroduodenoscopy - Mando White Ordered Studies 06/07/19 13:14 CT abd pelvis wo con Urgent Hospital Course (1) Acute blood loss anemia: Presumed 2nd to upper GI bleeding. 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 During the April EGD he had numerous gastric polyps and numerous angioectasias. Treated with APC. Then, s/p 2 EGDs at [place] 1-2 weeks ago -- 05/25 and 05/28 (see this note for details of those endoscopies). treated with Protonix IV while admitted will d/c on Protonix 40mg PO BID follow up closely with nephrology, PCP may need scheduled transfusions (2) Upper gastrointestinal bleed: see "acute blood loss anemia" above. Serial H/H's. Tx for Hb <7. GI consult. PPI drip. Hb stable, > 8 for several days monitor for any further melena or drop in Hb, no signs of bleeding at this point (3) GAVE (gastric antral vascular ectasia): as seen in April and May EGDs. GI recommends checking for other causes of anemia - especially hemolysis. TMihai bileduardo wnl. appreciate hematology consult, could be due to iron deficiency given Venofer while admitted patient is getting EPO with HD no signs of uremia no signs of hemolysis may need to take a transfuse as needed approach (4) Obstructive sleep apnea: -Does not use CPAP, continue supplemental O2 as needed (5) Hypothyroidism: last few TSH checks have all been high. noncompliance? medical record suggests h/o noncompliance. would simply continue levothyroxine 275mcg daily. encourage compliance. repeat TSH 3-4 weeks. (6) Hypertension: cont home meds (7) ESRD (end stage renal disease) on dialysis: nephrology consult requested for HD needs. scheduled: //Sat. cont calcium acetate TID w/ meals. HD the day prior to discharge will report for HD tomorrow (8) Diabetes: Glycemic consult placed to pharmacy. Appreciate their assistance. Control adequate at this time. monitor for hypoglycemia (9) Depression: noted (10) COPD (chronic obstructive pulmonary disease): no exacerbation at this time Total Time Total Time Spent Total Time Spent (In Minutes): 34 minutes Total Time Includes: Examination of the Patient, Discharge Planning and Medication Reconciliation Discharge Plan Discharge Items Patient Disposition: Home - Self-Care Reason For Visit: ANEMIC, GIB Discharge Diagnosis: Anemia GI bleed ESRD on hemodialysis Iron deficiency Condition on Discharge: Good Goals: improve strength and mobility monitor for any signs of GI bleeding follow up for hemodialysis on Activity: Resume your previous activity Non-emergency contact: Primary Care Provider Call non-emergency contact if: you have any medication questions Follow-up/Referrals: Mahsa Wang DO [Primary Care Provider] - Diet: Carb Consistent or DM2 and Dialysis Renal Addtl Attending Provider Instructions: Medications: all prior medications will be the same Acute GI bleed, recurrent anemia hemoglobin is stable, > 8 for three days in a row no signs of active bleeding safe to discharge to home continue on Protonix 40mg twice a day ideally you should be on Carafate, however, you cannot take this due to alumi num toxicity EGD on 06/08/19 showed non-bleeding gastric ulcer, some erythema of stomach but otherwise stable FOLLOW UP - hemodialysis on as normally scheduled - recommend follow up with Dr. Wang in one week, call her office for appt would recommend checking hemoglobin at that time Pending Studies at Discharge: No Stand-Alone Forms: My [facility] [employer], Smoking Cessation Medications and DC Order Prescriptions: Continued gabapentin 100 mg capsule 200 mg PO HS Qty: 60 RF: 5 doxazosin [Cardura] 1 mg tablet 1 mg PO DAILY Qty: 30 RF: 5 calcium acetate 667 mg tablet 2,001 mg PO TIDM RF: 0 bumetanide 1 mg tablet 1 mg PO BID Qty: 60 RF: 2 hydralazine 25 mg tablet 50 mg PO Q8H RF: 0 ferrous sulfate 325 mg (65 mg iron) tablet,delayed release (DR/EC) 325 mg PO BID Qty: 60 RF: 0 darbepoetin rasheed in polysorbat 60 mcg/mL solution 60 mcg subcut .COMPLEX Qty: 4 RF: 0 docusate sodium 100 mg capsule 200 mg PO QAM Qty: 30 RF: 0 Levemir U-100 Insulin 100 unit/mL solution 15 units subcut HS RF: 0 Renal Caps 1 mg Capsule 1 cap PO DAILY RF: 0 tamsulosin 0.4 mg capsule 0.4 mg PO HS Qty: 90 RF: 1 levothyroxine 200 mcg tablet 200 mcg PO QAM RF: 0 levothyroxine 75 mcg tablet 75 mcg PO QAM RF: 0 Boost Glucose Control 0.06-1.1 gram-kcal/mL Liquid 1 ea PO TIDM RF: 0 rosuvastatin 20 mg tablet 20 mg PO HS RF: 0 pantoprazole 40 mg tablet,delayed release (DR/EC) 40 mg PO AMPM RF: 0 multivitamin Tablet 1 tab PO DAILY RF: 0 labetalol 200 mg Tablet 200 mg PO BID RF: 0 insulin aspart U-100 [Novolog U-100 Insulin aspart] 100 unit/mL solution See Rx Instructions .ROUTE .COMPLEX RF: 0 No Action doxycycline hyclate 100 mg tablet 100 mg PO BID 10 Days Qty: 20 RF: 0 lisinopril 40 mg tablet 40 mg PO DAILY Qty: 90 RF: 3 amlodipine 10 mg tablet 10 mg PO HS RF: 0 sucralfate 1 gram tablet 1 g PO QID RF: 0 benzonatate [Tessalon Perles] 100 mg Capsule 100 mg PO TID PRN (Reason: cough) Qty: 30 RF: 0 Discharge Orders: Discharge Order (Routine); Ordered 06/09/19 Ordered By: Raphael Kemp Admission Data Admit Date/Time: 06/06/19 14:35 Attending Provider: Raphael Kemp Admit Provider: Raina Funes Primary Care Provider: Mahsa Wang Other Providers: Eugene Busby ; Terrence Bangura ; Jersey Forrest V Other Interventions: Discharge Summary Assessment (RN) Last Done: 06/10/19 09:53 DC Date/Time DO NOT enter until pt leaves facility: 06/10/19 11:15
== END 2019-06-10 11:15 | disposition home or self-care (01) | DRG 377 ==
LOC: ED 12:55 → SUATTDRO 14:35 → 2S 14:35

== ENCOUNTER 2019-06-13 08:19 | Inpatient (IN) ==
[2019-06-13] MEDS ORDERED: SODIUM CHLORIDE 0.9% 250 ML IV PRN (08:47)
[2019-06-13 08:49] LABS: Basophils # (auto) 0.03 K/uL (0-0.2); Basophils % (auto) 0.4 %; Eosinophils # (auto) 0.27 K/uL (0-0.5); Eosinophils % (auto) 3.7 %; Hematocrit (blood only) 25.3 % (42-52); Hemoglobin 8.1 g/dL (14.0-18.0); Immature Granulocytes # (auto) 0.03 K/uL (0.00-0.02); Immature Granulocytes % (auto) 0.4 %; Lymphocytes # (auto) 0.64 K/uL (1.2-3.4); Lymphocytes % (auto) 8.7 %; Mean Corpuscular Hemoglobin 30.8 pg (25-34); Mean Corpuscular Volume 96.2 fL (80-100); Mean Platelet Volume 10.1 fL (7.4-10.4); Monocytes # (auto) 0.48 K/uL (0.11-0.59); Monocytes % (auto) 6.5 %; Neutrophils # (auto) 5.89 K/uL (1.4-6.5); Neutrophils % (auto) 80.3 %; Platelet Count 197 K/uL (130-400); RDW Coefficient of Variation 17.7 % (11.5-14.5); RDW Standard Deviation 57.7 fL (36.4-46.3); Red Blood Count 2.63 M/uL (4.7-6.1); White Blood Count 7.34 K/uL (4.8-10.8)
[2019-06-13 08:59] LABS: INR 1.1 (0.9-1.1); Partial Thromboplastin Time 26.9 Seconds (21.0-31.0); Prothrombin Time 11.1 Seconds (9.0-12.0)
--- NOTE | 2019-06-13 09:04 | Emergency Department Note ---
Entered by Devon Rodriguez acting as a scribe for History of Present Illness General Chief complaint: Shortness of Breath/Dyspnea Time Seen by Provider: 06/13/19 08:22 Source: patient Limitations: no limitations History of Present Illness Location: chest Severity: similar to prior episodes Pain Consistency: + constant Quality: + constant Associated symptoms: no chest pain and no fever/chills The patient is a 79 year old male who presents to the Emergency Room with complaints of constant SOB. The patient states he was in the hospital two days ago for SOB. He states he missed dialysis today and missed it two days ago because he was in the hospital. He notes the last time he got dialysis was 4 days ago. The patient states he has been coughing more than normal for the past two days. The patient denies having chest pain, fevers, and chills. Home Medications Home Medications Medication Instructions Recorded Confirmed Type tamsulosin 0.4 mg PO HS #90 cap 01/02/19 06/13/19 Rx docusate sodium 100 mg capsule 200 mg PO QAM #30 cap 01/19/19 06/13/19 Rx gabapentin 100 mg capsule 200 mg PO HS #60 cap 02/04/19 06/13/19 Rx levothyroxine 200 mcg PO QAM 02/15/19 06/13/19 History lisinopril 40 mg tablet 40 mg PO DAILY@1200 #90 tab 02/26/19 06/13/19 Rx Boost Glucose Control 1 ea PO TIDM 03/18/19 06/13/19 History insulin detemir U-100 100 unit/mL 15 units SUBCUT HS ml 03/25/19 06/13/19 History subcutaneous solution rosuvastatin 20 mg PO HS 04/07/19 06/13/19 History levothyroxine 75 mcg PO QAM 04/24/19 06/13/19 History pantoprazole 40 mg PO AMPM 04/25/19 06/13/19 History doxazosin 1 mg tablet 1 mg PO DAILY #30 tab 05/19/19 06/13/19 Rx Renal Caps 1 cap PO DAILY 05/23/19 06/13/19 History bumetanide 1 mg tablet 1 mg PO BID #60 tab 06/02/19 06/13/19 Rx calcium acetate 667 mg tablet 2,001 mg PO TIDM tab 06/02/19 06/13/19 History darbepoetin rasheed in polysorbat 60 60 mcg SUBCUT .COMPLEX #4 ml 06/02/19 06/13/19 Rx mcg/mL in polysorbate injection ferrous sulfate 325 mg (65 mg 325 mg PO BID #60 tab 06/02/19 06/13/19 Rx iron) tablet,delayed release hydralazine 25 mg tablet 50 mg PO Q8H tab 06/02/19 06/13/19 History insulin aspart U-100 [Novolog See Rx Instructions .ROUTE .COMPLEX 06/06/19 06/13/19 History U-100 Insulin aspart] labetalol 200 mg PO BID 06/06/19 06/13/19 History multivitamin 1 tab PO DAILY 06/06/19 06/13/19 History amlodipine 10 mg PO HS 06/13/19 06/13/19 History sucralfate 1 g PO QID 06/13/19 06/13/19 History Allergies Allergy/AdvReac Type Severity Reaction Status Date / Time tramadol AdvReac Severe disorented Verified 06/13/19 10:00 ,falling down metformin AdvReac Intermediate CONFUSION Verified 06/13/19 10:00 Past Med/Surg History Medical History Anxiety Arthritis Asthma AVF (arteriovenous fistula) left arm BPH (benign prostatic hyperplasia) CAD (coronary artery disease) Chronic diastolic congestive heart failure Chronic kidney disease, stage IV (severe) dialysis - [facility], sat at [place] follow with dr herrera Colon, diverticulosis 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, with long-term current use of insulin COPD (chronic obstructive pulmonary disease) Depression Diabetic peripheral neuropathy 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) (Acute) GERD (gastroesophageal reflux disease) Hearing difficulty Hyperlipidemia LDL goal <70 Hypertension Hypothyroidism Memory loss Mitral regurgitation Obstructive sleep apnea uses oxygen 2 l nc at Pulmonary hypertension Secondary hyperparathyroidism of renal origin Uncontrolled daytime somnolence sleeps thru day and cant sleep at [facility] Surgical History H/O cardiac catheterization many years ago - over 10 years no stents follow with [facility]ung H/O esophagogastroduodenoscopy 02/16/19 and 03/2019 [facility]- Dr. Mando White. 50mg propofol, no issues. H/O hemorrhoidectomy History of esophagogastroduodenoscopy (EGD) x 2 at [facility] during admission from 05/23/19-05/30/19 Hx of cholecystectomy Family History Unknown Myocardial infarction Diabetes Mother Diabetes Gallbladder disease Hypertension Breast cancer late 70s Father Diabetes Hypertension Brother Diabetes Hypertension Kidney disease Social History Preferred Language: Indonesian Communication Ability: Effective Visual Impairment: No Limitations Hearing Ability: Hard of Hearing Permit Technician Required: No Beliefs That Will Affect Care: None marital status: Current Living Situation: Spouse current occupational status: disabled current occupation: works part-time at [employer] Feels Safe at Home: Yes Smoking Status: Former smoker Tobacco Type: cigarettes ; Number of Years Since Quit: 25 ; Second Hand Exposure: No ; Hx Alcohol Use: No Hx Substance Use: No Childhood Exposure to Second-Hand Smoke: No Other Diet Comment: regular caffeine: Yes during the past year weight has: remained stable Dental Care, Regularly: Yes Physical Activity Frequency: Does not Exercise Physical Activity Frequency Comment: limited due physical condition Seatbelt Use: sometimes Sunscreen Use: No Review of Systems See HPI for pertinent positives & negatives. and A total of 10 systems reviewed and were otherwise negative Physical Exam Vital Signs Vital Signs - 24 hr 06/13/19 08:04 06/13/19 08:23 06/13/19 08:28 Temperature 36.4 C L Temperature Source Oral Pulse Rate 72 68 Pulse Rate from SpO2 Sensor 67 Respiratory Rate 22 19 Respiratory Effort / Characteristics Short of Breath SOB on Exertion Respiratory Pattern Regular Blood Pressure 164/103 H 164/103 H Blood Pressure Mean 123 132 Pulse Oximetry 98 94 94 Oxygen Delivery Method Nasal Cannula Room Air Oxygen Flow Rate 2 Sepsis Recent Fever Within 48 Hours No Sepsis Action Taken by Nursing No Action Required 06/13/19 08:29 06/13/19 08:30 06/13/19 09:00 Temperature Temperature Source Pulse Rate 70 67 65 Pulse Rate from SpO2 Sensor 70 67 Respiratory Rate 12 23 Respiratory Effort / Characteristics Respiratory Pattern Blood Pressure Blood Pressure Mean Pulse Oximetry 95 95 Oxygen Delivery Method Oxygen Flow Rate Sepsis Recent Fever Within 48 Hours Sepsis Action Taken by Nursing 06/13/19 09:30 Temperature Temperature Source Pulse Rate 71 Pulse Rate from SpO2 Sensor Respiratory Rate 20 Respiratory Effort / Characteristics Respiratory Pattern Blood Pressure Blood Pressure Mean Pulse Oximetry Oxygen Delivery Method Oxygen Flow Rate Sepsis Recent Fever Within 48 Hours Sepsis Action Taken by Nursing General: Non-ill appearing older male with occasional cough and in no respiratory distress. HEENT: Normal cephalic atraumatic. Pupils are equal round and reactive to light. Extraocular movements are intact. Oropharynx is pink with moist mucous me mbranes. No swelling of the mouth lips or tongue. Neck: Supple with a midline trachea. No meningeal signs or stiffness, no JVD or bruits. No Stridor. Chest: Clear to auscultation bilaterally. No wheezes or rhonchi. No increased work of breathing. Heart: regular rate and rhythm. Abdomen: Soft nontender, nondistended without rebound guarding or rigidity. Extremities: No cyanosis clubbing or edema. No calf tenderness or asymmetry. Fistula in left arm. Spine/Back. Non tender to palpation. No CVA tenderness Skin: Good turgor without rashes. Neurologic exam: Cranial nerves two through 12 are intact. Motor and sensation are intact and symmetrical throughout. Course Course 0823: The patient was evaluated in room B6, and a complete history and physical examination were performed. 0856: I paged nephrology. The patient looks well. I discussed the need for dialysis before the team leaves. 0857: I spoke with Dr. Gracia - Nephrology. He states the patient should be dialyzed today. 0914: I spoke to Shayan Chen - [facility] Hospitalist, will evaluate the patient for further management. Medical Decision Making Differential Diagnosis Differential Diagnosis includes but is not limited to CHF, complication related to ESRD, GI bleed, and electrolyte or metabolic abnormality. Medical Records Attestation: I reviewed the patient's medical records. Home Medications Current Medication List: was personally reviewed by me Laboratory Data Attestation: I reviewed the patient's lab results. Result diagrams: 06/13/19 07:55 06/13/19 07:55 Lab Results 06/13/19 06/13/19 06/13/19 Range/Units 07:55 07:55 07:55 WBC 7.34 (4.8-10.8) K/uL RBC 2.63 L (4.7-6.1) M/uL Hgb 8.1 L (14.0-18.0) g/dL Hct 25.3 L (42-52) % MCV 96.2 (80-100) fL MCH 30.8 (25-34) pg MCHC 32.0 (32-36) g/dL RDW Std Deviation 57.7 H (36.4-46.3) fL RDW Coeff of Jose C 17.7 H (11.5-14.5) % Plt Count 197 (130-400) K/uL MPV 10.1 (7.4-10.4) fL Immature Gran % (Auto) 0.4 % Neut % (Auto) 80.3 % Lymph % (Auto) 8.7 % [place] % (Auto) 6.5 % Eos % (Auto) 3.7 % Baso % (Auto) 0.4 % Immature Gran # (Auto) 0.03 H (0.00-0.02) K/uL Neut # (Auto) 5.89 (1.4-6.5) K/uL Lymph # (Auto) 0.64 L (1.2-3.4) K/uL [place] # (Auto) 0.48 (0.11-0.59) K/uL Eos # (Auto) 0.27 (0-0.5) K/uL Baso # (Auto) 0.03 (0-0.2) K/uL PT 11.1 (9.0-12.0) Seconds INR 1.1 (0.9-1.1) APTT 26.9 (21.0-31.0) Seconds PTT Ratio 1.0 Sodium 144 (136-145) mmol/L Potassium 4.3 (3.5-5.1) mmol/L Chloride 106 (98-107) mmol/L Carbon Dioxide 27 (21-32) mmol/L Anion Gap 11.0 (3-11) BUN 93 H (7-18) mg/dl Creatinine 10.80 H* (0.6-1.4) mg/dl Est Cr Clr Drug Dosing Not Reportable Est GFR ( Amer) 4.7 Est GFR (Non-Af Amer) 4.1 BUN/Creatinine Ratio 8.7 L (10-20) Glucose 122 H (70-99) mg/dl Lactate (0.4-2.0) mmol/L Calcium 9.5 (8.5-10.1) mg/dl Total Bilirubin 0.6 (0.2-1) mg/dl AST 13 L (15-37) U/L ALT 19 (12-78) U/L Alkaline Phosphatase 131 H (45-117) U/L Total Protein 5.9 L (6.4-8.2) gm/dl Albumin 2.5 L (3.4-5.0) gm/dl Globulin 3.4 (2.5-4.0) gm/dl Albumin/Globulin Ratio 0.7 L (0.9-2) 06/13/19 Range/Units 09:43 WBC (4.8-10.8) K/uL RBC (4.7-6.1) M/uL Hgb (14.0-18.0) g/dL Hct (42-52) % MCV (80-100) fL MCH (25-34) pg MCHC (32-36) g/dL RDW Std Deviation (36.4-46.3) fL RDW Coeff of Jose C (11.5-14.5) % Plt Count (130-400) K/uL MPV (7.4-10.4) fL Immature Gran % (Auto) % Neut % (Auto) % Lymph % (Auto) % [place] % (Auto) % Eos % (Auto) % Baso % (Auto) % Immature Gran # (Auto) (0.00-0.02) K/uL Neut # (Auto) (1.4-6.5) K/uL Lymph # (Auto) (1.2-3.4) K/uL [place] # (Auto) (0.11-0.59) K/uL Eos # (Auto) (0-0.5) K/uL Baso # (Auto) (0-0.2) K/uL PT (9.0-12.0) Seconds INR (0.9-1.1) APTT (21.0-31.0) Seconds PTT Ratio Sodium (136-145) mmol/L Potassium (3.5-5.1) mmol/L Chloride (98-107) mmol/L Carbon Dioxide (21-32) mmol/L Anion Gap (3-11) BUN (7-18) mg/dl Creatinine (0.6-1.4) mg/dl Est Cr Clr Drug Dosing Est GFR ( Amer) Est GFR (Non-Af Amer) BUN/Creatinine Ratio (10-20) Glucose (70-99) mg/dl Lactate 0.5 (0.4-2.0) mmol/L Calcium (8.5-10.1) mg/dl Total Bilirubin (0.2-1) mg/dl AST (15-37) U/L ALT (12-78) U/L Alkaline Phosphatase (45-117) U/L Total Protein (6.4-8.2) gm/dl Albumin (3.4-5.0) gm/dl Globulin (2.5-4.0) gm/dl Albumin/Globulin Ratio (0.9-2) Imaging Data Radiologist's Impression: Radiology results as stated below per my review and the radiologist's interpretation: XR chest 1V portable HISTORY: Dyspnea COMPARISON: Chest 06/06/2019. FINDINGS: Progressive bibasilar opacities, left greater than right.. No pneumothorax. No pleural effusions. The heart remains mildly enlarged. IMPRESSION: Progressive bibasilar opacities, left greater than right. This could represent a developing pneumonia and may be secondary to aspiration. ACT 112: Negative or not required by law. Electronically signed by: Jose C Jaeger M.D. 06/13/2019 9:24 AM ECG Data Attestation: I personally reviewed and interpreted this ECG as follows: Indication: + SOB/dyspnea Rate (beats per minute): 71 ECG Intervals/blocks: + First degree AV block and + Right Bundle branch block ECG ST segments: no ST depression and no ST elevation ECG Findings: no PACs and no PVCs Comparison ECG Date: from (06/06/19) Change: no significant change Blood Pressure Blood Pressure Findings: Elevated blood pressure Blood Pressure Disposition: further management by hospitalist BJ Narrative This patient has a complicated medical history including chronic GI bleed and ESRD, comes in after feeling weak and short of breath. He missed dialysis today and possibly on . He is actually hypertensive. IV access was established on route. Blood work was obtained I did i-STAT labs to get a quick potassium and hemoglobin his potassium was normal at 4.4 and his hemoglobin was low at 7.1 however in the labs he came back at 8.1 which is more in line with his baseline. He was typed and crossed in the event that he needs blood. Chest x-ray shows either infiltrate or some fluid in the right base. Blood cultures were ordered as well as a lactate. I did talk to Dr. Gracia early on in his care as I did not want me want him to miss his window for dialysis. He is going to arrange for him to have dialysis this morning because if he does not get it today the next time dialysis available will be on Saturday here at our facility as they do not dialyze on Saturday. He has no significant electrolyte or metabolic abnormalities at present. As mentioned above he does have some fluid or infiltrate on his chest x-ray I think this is most likely related to fluid overload. He has no fever or white count to suggest infection. I have consulted the hospitalist group and Shayan Jean saw him in the ER for admission and further evaluation. Impression & Plan SOB (shortness of breath), CHF (congestive heart failure), ESRD (end stage renal disease), Anemia, GI bleed Discharge Plan Visit Data Chief Complaint: Shortness of Breath/Dyspnea ED Provider: Terrence Brown Discharge Problem: SOB (shortness of breath), CHF (congestive heart failure), ESRD (end stage renal disease), Anemia, GI bleed Patient Disposition: Being Evaluated by Hospitalist Discharge Instructions Interventions: ED Discharge Assessment Last Done: 06/13/19 10:10 Discharge Problem: CHF (congestive heart failure) Qualifiers: Heart failure type: unspecified Heart failure chronicity: unspecified Qualified Code(s): I50.9 - Heart failure, unspecified Anemia Qualifiers: Anemia type: unspecified type Qualified Code(s): D64.9 - Anemia, unspecified GI bleed Qualifiers: GI bleed type/associated pathology: unspecified gastrointestinal hemorrhage type Qualified Code(s): K92.2 - Gastrointestinal hemorrhage, unspecified The scribe's documentation has been prepared under my direction and personally r eviewed by me in its entirety. I confirm that the note above accurately reflects all work, treatment, procedures, and medical decision making performed by me.
[2019-06-13 09:07] LABS: Alanine Aminotransferase 19 U/L (12-78); Albumin Globulin Ratio 0.7 (0.9-2); Albumin Level 2.5 gm/dl (3.4-5.0); Alkaline Phosphatase 131 U/L (45-117); Aspartate Aminotransferase 13 U/L (15-37); BUN Creatinine Ratio 8.7 (10-20); Bilirubin,Total 0.6 mg/dl (0.2-1); Blood Urea Nitrogen 93 mg/dl (7-18); Calcium 9.5 mg/dl (8.5-10.1); Carbon Dioxide 27 mmol/L (21-32); Chloride 106 mmol/L (98-107); Est GFR (African American) 4.7; Est GFR (Non-African American) 4.1; Globulin 3.4 gm/dl (2.5-4.0); Glucose 122 mg/dl (70-99); Potassium 4.3 mmol/L (3.5-5.1); Sodium 144 mmol/L (136-145); Total Protein 5.9 gm/dl (6.4-8.2)
--- NOTE | 2019-06-13 09:26 | XRay Report ---
XR chest 1V portable HISTORY: Dyspnea COMPARISON: Chest 06/06/2019. FINDINGS: Progressive bibasilar opacities, left greater than right.. No pneumothorax. No pleural effu sions. The heart remains mildly enlarged. IMPRESSION: Progressive bibasilar opacities, left greater than right. This could represent a developing pneumonia and may be secondary to aspiration. ACT 112: Negative or not required by law. Electronically signed by: Jose C Jaeger M.D. 06/13/2019 9:24 AM
--- NOTE | 2019-06-13 10:19 | History & Physical Report ---
Date of Service June 13, 2019 Assessment & Plan (1) ESRD (end stage renal disease): Patient gets dialysis Saturday, , Saturday. Last dialysis session was last Saturday Patient missed session secondary not feeling well Patient comes in today with some shortness of breath and need for dialysis Dr. Gracia was consulted and will arrange for hemodialysis inpatient today Potassium is stable at 4.4 but creatinine is elevated above [address] Gracia (2) Anemia: Patient with multifactorial anemia Most recent work-up for iron deficiency was negative Patient continues on ferrous sulfate empirically Last admission patient had hematology consult as well as EGD There were some small areas of ulceration per EGD but no acute bleeding or stigmata Continue pantoprazole 40 mg p.o. twice daily (3) SOB (shortness of breath): Patient is not hypoxic He does have some question of change in infiltrates on bilateral bases on plain film x-ray We will order incentive spirometry No fever, white blood cell count, sputum production No hemoptysis Will follow with serial labs as well as serial chest x-rays (4) Obstructive sleep apnea: Patient does not tolerate positive pressure We will continue with supplemental O2 via nasal cannula and follow (5) Hypertension: Patient on multiple medications for hypertension Hemodialysis today We will do PRN hydralazine Follow on telemetry floor (6) CHF (congestive heart failure): Patient with history of CAD Continue blood pressure control Continue Bumex Most recent echocardiogram with preserved left ventricular ejection fraction of 65 to 70%. Patient does have dilated right ventricle. Grade 2 diastolic dysfunction with mitral regurgitation. Follow on telemetry Strict I's and O's (7) Diabetes: Most recent hemoglobin A1c was 6.5 Continue Levemir Sliding scale insulin Glycemic consult with pharmacy (8) Diabetic peripheral neuropathy: Continue gabapentin Patient with no current complaints (9) Hypothyroidism: Continue levothyroxine Follow TSH, T3, T4 as an outpatient (10) DVT prophylaxis: Heparin 5000 units subcutaneously every 12 hours Monitor H&H as patient has history of GI bleed Out of bed to chair as tolerated Ambulate as tolerated Please refer to Dr. Stephen Gold's addendum and corrections for further recommendations. History of Present Illness Primary Care Provider: Mahsa Wang DO Attending: Dr. Stephen Gold This is a 79-year-old male with a past medical history of CAD, diastolic CHF, hypertension, hyperlipidemia, pulmonary hypertension, asthma, COPD, diabetes mellitus type 2, chronic kidney disease stage V on chronic dialysis, peripheral neuropathy, GERD, chronic GI bleed, obstructive sleep apnea, secondary hyperparathyroidism, arthritis, anxiety, and depression. Patient was recently admitted and discharged on 06/10/2019. He states that this morning he woke up and had some shortness of breath and nonproductive cough. He states that there is sputum that he cannot clear. He last had dialysis on Saturday and is scheduled for Saturday. He missed his episode of dialysis secondary to feeling weak and "other issues" which he did not want to elaborate on. The patient is not hypotensive. He is not hypoxic. He is afebrile. Hemoglobin appears stable at 8.1. Patient denies any acute bleeding. Patient had an EGD on 06/08/2019 which revealed multiple 6 mm pedunculated and sessile polyps with no bleeding or stigmata. There was one nonbleeding superficial gastric ulcer with no stigmata of bleeding. There is localized moderately erythematous mucosa without bleeding. There was a large nonbleeding diverticulum in the second portion of the duodenum. Patient has been treated with pantoprazole 40 mg p.o. twice daily. Patient did receive 2 units of packed red blood cells last admission. He was seen by hematology by Dr. Simmons. Assessment was chronic, multifactorial anemia. Iron studies did not reveal deficiency but patient is continued empirically on ferrous sulfate. Platelet count is normal and patient denies any long-term or regular NSAID use. Allergies Allergy/AdvReac Type Severity Reaction Status Date / Time tramadol AdvReac Severe disorented Verified 06/13/19 10:00 ,falling down metformin AdvReac Intermediate CONFUSION Verified 06/13/19 10:00 Home Medications Home Medications Medication Instructions Recorded Confirmed Type tamsulosin 0.4 mg PO HS #90 cap 01/02/19 06/13/19 Rx docusate sodium 100 mg capsule 200 mg PO QAM #30 cap 01/19/19 06/13/19 Rx gabapentin 100 mg capsule 200 mg PO HS #60 cap 02/04/19 06/13/19 Rx levothyroxine 200 mcg PO QAM 02/15/19 06/13/19 History lisinopril 40 mg tablet 40 mg PO DAILY@1200 #90 tab 02/26/19 06/13/19 Rx Boost Glucose Control 1 ea PO TIDM 03/18/19 06/13/19 History insulin detemir U-100 100 unit/mL 15 units SUBCUT HS ml 03/25/19 06/13/19 History subcutaneous solution rosuvastatin 20 mg PO HS 04/07/19 06/13/19 History levothyroxine 75 mcg PO QAM 04/24/19 06/13/19 History pantoprazole 40 mg PO AMPM 04/25/19 06/13/19 History doxazosin 1 mg tablet 1 mg PO DAILY #30 tab 05/19/19 06/13/19 Rx Renal Caps 1 cap PO DAILY 05/23/19 06/13/19 History bumetanide 1 mg tablet 1 mg PO BID #60 tab 06/02/19 06/13/19 Rx calcium acetate 667 mg tablet 2,001 mg PO TIDM tab 06/02/19 06/13/19 History darbepoetin rasheed in polysorbat 60 60 mcg SUBCUT .COMPLEX #4 ml 06/02/19 06/13/19 Rx mcg/mL in polysorbate injection ferrous sulfate 325 mg (65 mg 325 mg PO BID #60 tab 06/02/19 06/13/19 Rx iron) tablet,delayed release hydralazine 25 mg tablet 50 mg PO Q8H tab 06/02/19 06/13/19 History insulin aspart U-100 [Novolog See Rx Instructions .ROUTE .COMPLEX 06/06/19 06/13/19 History U-100 Insulin aspart] labetalol 200 mg PO BID 06/06/19 06/13/19 History multivitamin 1 tab PO DAILY 06/06/19 06/13/19 History amlodipine 10 mg PO HS 06/13/19 06/13/19 History sucralfate 1 g PO QID 06/13/19 06/13/19 History Past Med/Surg History Medical History Anxiety Arthritis Asthma AVF (arteriovenous fistula) left arm BPH (benign prostatic hyperplasia) CAD (coronary artery disease) Chronic diastolic congestive heart failure Chronic kidney disease, stage IV (severe) dialysis - [facility], sat at [place] follow with dr herrera Colon, diverticulosis 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, with long-term current use of insulin COPD (chronic obstructive pulmonary disease) Depression Diabetic peripheral neuropathy 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) (Acute) GERD (gastroesophageal reflux disease) Hearing difficulty Hyperlipidemia LDL goal <70 Hypertension Hypothyroidism Memory loss Mitral regurgitation Obstructive sleep apnea uses oxygen 2 l nc at hs Pulmonary hypertension Secondary hyperparathyroidism of renal origin Uncontrolled daytime somnolence sleeps thru day and cant sleep at [facility] Surgical History H/O cardiac catheterization many years ago - over 10 years no stents follow with trung H/O esophagogastroduodenoscopy 02/16/19 and 03/2019 [facility]- Dr. Mando White. 50mg propofol, no issues. H/O hemorrhoidectomy History of esophagogastroduodenoscopy (EGD) x 2 at [facility] during admission from 05/23/19-05/30/19 Hx of cholecystectomy Family History Unknown Myocardial infarction Diabetes Mother Diabetes Gallbladder disease Hypertension Breast cancer late 70s Father Diabetes Hypertension Brother Diabetes Hypertension Kidney disease Social History Preferred Language: [place] Communication Ability: Effective Visual Impairment: No Limitations Hearing Ability: Hard of Hearing Modular Set Crew Member Required: No Beliefs That Will Affect Care: None marital status: Current Living Situation: Spouse current occupational status: disabled current occupation: works part-time at [employer] Other Information That Helps Us Care for You: No Feels Safe at Home: Yes Safety Concerns: Feels Safe At This Time Smoking Status: Never smoker Tobacco Type: cigarettes ; Do You Dip or Chew Tobacco: No ; Number of Years Since Quit: 25 ; Second Hand Exposure: No ; Tobacco Cessation Education Requested by Patient: No Hx Alcohol Use: No Hx Substance Use: No Childhood Exposure to Second-Hand Smoke: No Other Diet Comment: regular caffeine: Yes during the past year weight has: remained stable Dental Care, Regularly: Yes Physical Activity Frequency: Does not Exercise Physical Activity Frequency Comment: limited due physical condition Seatbelt Use: sometimes Sunscreen Use: No Review of Systems Review of Systems: All systems reviewed & are unremarkable except as noted in HPI & below Physical Exam Physical Exam: GENERAL : No acute distress. Pleasant EYES: No icterus, gaze conjugate NOSE: No evidence of epistaxis MOUTH: No lesions or candidiasis NECK: Supple LUNGS: Bibasilar rales. No rhonchi. No bronchospasm. Good inspiratory effort HEART: Regular, rate controlled ABDOMEN: Soft, NT, ND, BS Present EXTREMITIES: No LE edema, pedal pulses intact NEURO: A&OX3 Results & Data Vital Signs (Past 12 Hours) Vital Signs Temp Pulse Resp BP Pulse Ox 06/13/19 09:58 67 18 195/53 H 95 06/13/19 09:30 71 20 06/13/19 09:00 65 06/13/19 08:30 67 23 95 06/13/19 08:29 70 12 95 06/13/19 08:28 94 06/13/19 08:23 68 19 164/103 H 94 06/13/19 08:04 36.4 C L 72 22 164/103 H 98 Laboratory Results 06/13/19 07:55 06/13/19 07:55 Diagnostic Findings XR chest 1V portable HISTORY: Dyspnea COMPARISON: Chest 06/06/2019. FINDINGS: Progressive bibasilar opacities, left greater than right.. No pn eumothorax. No pleural effusions. The heart remains mildly enlarged. IMPRESSION: Progressive bibasilar opacities, left greater than right. This could represent a developing pneumonia and may be secondary to aspiration. ACT 112: Negative or not required by law. Electronically signed by: Jose C Jaeger M.D. 06/13/2019 9:24 AM Code Status & VTE Plan Code Status Patient states that he wishes to be a full resuscitation VTE Prophylaxis Plan VTE Prophylaxis will be ordered: Yes Supervising Physician Co-Signing Physician Notes I supervised Shayan Jean PA-C on this patient's care. I examined the patient today independently of him. I discussed the plan of care with him with the plan being as written in his note except for any following changes/exceptions: None. 79yo M w/ hx of ESRD and GI bleed (from suspected GAVE) well-known to our hospital for recurrent admissions. Missed his HD on due to general not feeling well. Presented to our hospital with shortness of breath. Will get HD today. Hopeful discharge tomorrow as all his other values are at baseline. In fact, he reports feeling well to me today and only passingly mentions the shortness of breath once I ask him specifically about it. PG Care Time/CCT Total # of Minutes Spent Total Time Spent with Patient: Total time spent is greater than 50% in coordination of care (as documented) at patient's floor/unit and/or counseling patient: 55 minutes (1) Diabetes Chronic kidney disease stage: on chronic dialysis Diabetes mellitus complication detail: with chronic kidney disease Diabetes mellitus complication status: with kidney complications Diabetes mellitus intermodal customer service insulin use: with group home use Diabetes mellitus type: type 2 Qualified Code(s): E11.22 - Type 2 diabetes mellitus with diabetic chronic kidney disease; N18.6 - End stage renal disease; Z79.4 - assisted (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 (2) CHF (congestive heart failure) Heart failure chronicity: unspecified Heart failure type: unspecified Qualified Code(s): I50.9 - Heart failure, unspecified (3) Anemia Anemia type: unspecified type Qualified Code(s): D64.9 - Anemia, unspecified (4) Hypothyroidism Hypothyroidism type: acquired Qualified Code(s): E03.9 - Hypothyroidism, unspecified (5) Hypertension Hypertension type: essential hypertension Qualified Code(s): I10 - Essential (primary) hypertension
[2019-06-13] MEDS ORDERED: IRON SUCROSE 100 MG in SYRINGE 0 ML IV ONE (10:58)
[2019-06-13] MEDS ORDERED: DC ALL PREVIOUSLY ORDERED DIABETES MEDS ONE (10:58)
[2019-06-13] MEDS ORDERED: DEXTROSE 50% 50 ML SYRINGE IV PRN (10:58)
[2019-06-13] MEDS ORDERED: CARBOHYDRATES FOR HYPOGLYCEMIA PO PRN (10:58)
[2019-06-13] MEDS ORDERED: GLUCOSE 40% GEL 15 GM TUBE PO PRN (10:58)
[2019-06-13] MEDS ORDERED: GLUCOSE 10 TABS/TUBE PO PRN (10:58)
[2019-06-13] MEDS ORDERED: SODIUM CHLORIDE 0.9% 1000ML 1,000 ML IV PRN (10:58)
[2019-06-13] MEDS ORDERED: ONDANSETRON INJ 2 MG/ML 2 ML VIAL IV PRN (10:58)
[2019-06-13] MEDS ORDERED: GLUCAGON FOR INJ 1 MG VIAL SQ PRN (10:58)
[2019-06-13] MEDS ORDERED: ACETAMINOPHEN 325 MG TAB PO PRN (10:58)
[2019-06-13] MEDS ORDERED: PHARMACY GLYCEMIC MGMT CONSULT PRN (11:16)
[2019-06-13] MEDS ORDERED: HydrALAZINE HCL 20 MG/ML VIAL IV STA ×2 (11:57→16:35)
[2019-06-13] MEDS ORDERED: [UNRECOGNIZED DRUG - OTHER] PO SCH (12:00)
[2019-06-13] MEDS ORDERED: EPOETIN ALFA 4,000 UNIT/ML VIAL IV SCH (12:00)
[2019-06-13] MEDS ORDERED: HydrALAZINE HCL 20 MG/ML VIAL ONE (12:03)
--- NOTE | 2019-06-13 13:03 | Nephrology Consultation ---
Date of Consultation June 13, 2019 Assessment & Plan (1) ESRD (end stage renal disease): ESRD due to diabetic nephropathy. Dialyzes TTS at [facility]. Admitted due to recurrent UGI bleeding. PMH: HTN, AODM, vascular dementia, IgG monoclonal gammopathy, EFREN, BPH, hypothyroidism, and CHF w/ diastolic dysfunction. History of non-compliance with treatment. Augie presented with volume overload and accelerated hypertension. He did not attend scheduled outpatient dialysis treatment on . The importance of compliance with treatment was stressed. Orders for emergent HD today were entered into the EMR and discussed with the HD nurse. UF goal of 3L as tolerated. (2) Anemia: Results of recent EGD reviewed. No (3) SOB (shortness of breath): CXR reviewed. Clinical presentation consistent wtih volume overload and accelerated hypertension. Will monitor. Not hypoxic. EKG without acute changes. (4) Hypertension: Accelerated and symptomatic in setting of volume overload. Maintained on home diuretics including labetalol, lisinopril, amlodipine, doxazosin, and hydralazine. Additional hydralazine provided PRN. History of Present Illness Attending Physician: Stephen Gold MD History of Present Illness Mr. Mcintyre is a 79 year old white male with ESRD due to diabetic nephropathy. He has been on IHD since 12/16 ([facility] [place] TTS 4hr 2K 2.5Ca F-200NR EDW 97.5 kg - primary [facility] Dr. Briceno). Medical history is significant for HTN, AODM, vascular dementia, IgG monoclonal gammopathy, EFREN, BPH, hypothyroidism, and CHF w/ diastolic dysfunction. Mr. Mcintyre has required several recent hospitalizations due to anemia and weakness. EGD revealed vascular ectasis of the gastric antrum. Cauterization was provided but melena recurred. Mr. Mcintyre was hospitalized 05/21 due to GI bleeding. He was transferred to [facility] 05/23 - 05/31. He required transfusion w/ 8 units PRBC and EGD x2. Cauterization of gastric AVM's was again carried out. He was then admitted June 06 at [facility]. He received 2 units of PRBC transfusion support on 06/08. EGD completed by Dr. White on June 08. The patient's last outpatient dialysis treatment was on June 09. He did not attend his scheduled treatment on because he states that he lacked the motivation to attend and he felt well. When he presented to the outpatient dialysis unit for treatment today, he was notably short of breath and opted to be transported to the ER at [facility] for evaluation. I called and discussed the patient's history with staff at [facility] today. I met with Augie and his daughter's this afternoon and reviewed his history of non-compliance with scheduled dialysis treatments. Dyspnea had improved at the time of my assessment but BP remained accelerated. Allergies Allergy/AdvReac Type Severity Reaction Status Date / Time tramadol AdvReac Severe disorented Verified 06/13/19 10:00 ,falling down metformin AdvReac Intermediate CONFUSION Verified 06/13/19 10:00 Home Medications Home Medications Medication Instructions Recorded Confirmed Type tamsulosin 0.4 mg PO HS #90 cap 01/02/19 06/13/19 Rx docusate sodium 100 mg capsule 200 mg PO QAM #30 cap 01/19/19 06/13/19 Rx gabapentin 100 mg capsule 200 mg PO HS #60 cap 02/04/19 06/13/19 Rx levothyroxine 200 mcg PO QAM 02/15/19 06/13/19 History lisinopril 40 mg tablet 40 mg PO DAILY@1200 #90 tab 02/26/19 06/13/19 Rx Boost Glucose Control 1 ea PO TIDM 03/18/19 06/13/19 History insulin detemir U-100 100 unit/mL 15 units SUBCUT HS ml 03/25/19 06/13/19 History subcutaneous solution rosuvastatin 20 mg PO HS 04/07/19 06/13/19 History levothyroxine 75 mcg PO QAM 04/24/19 06/13/19 History pantoprazole 40 mg PO AMPM 04/25/19 06/13/19 History doxazosin 1 mg tablet 1 mg PO DAILY #30 tab 05/19/19 06/13/19 Rx Renal Caps 1 cap PO DAILY 05/23/19 06/13/19 History bumetanide 1 mg tablet 1 mg PO BID #60 tab 06/02/19 06/13/19 Rx calcium acetate 667 mg tablet 2,001 mg PO TIDM tab 06/02/19 06/13/19 History darbepoetin rasheed in polysorbat 60 60 mcg SUBCUT .COMPLEX #4 ml 06/02/19 06/13/19 Rx mcg/mL in polysorbate injection ferrous sulfate 325 mg (65 mg 325 mg PO BID #60 tab 06/02/19 06/13/19 Rx iron) tablet,delayed release hydralazine 25 mg tablet 50 mg PO Q8H tab 06/02/19 06/13/19 History insulin aspart U-100 [Novolog See Rx Instructions .ROUTE .COMPLEX 06/06/19 06/13/19 History U-100 Insulin aspart] labetalol 200 mg PO BID 06/06/19 06/13/19 History multivitamin 1 tab PO DAILY 06/06/19 06/13/19 History amlodipine 10 mg PO HS 06/13/19 06/13/19 History sucralfate 1 g PO QID 06/13/19 06/13/19 History Patient History Medical History Anxiety Arthritis Asthma AVF (arteriovenous fistula) left arm BPH (benign prostatic hyperplasia) CAD (coronary artery disease) Chronic diastolic congestive heart failure Chronic kidney disease, stage IV (severe) dialysis - cat ryan, sat at [place] follow with dr herrera Colon, diverticulosis 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, with long-term current use of insulin COPD (chronic obstructive pulmonary disease) Depression Diabetic peripheral neuropathy 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 Mando White. 50mg propofol, no issues. H/O hemorrhoidectomy History of esophagogastroduodenoscopy (EGD) x 2 at [facility] during admission from 05/23/19-05/30/19 Hx of cholecystectomy Family History Unknown Myocardial infarction Diabetes Mother Diabetes Gallbladder disease Hypertension Breast cancer late 70s Father Diabetes Hypertension Brother Diabetes Hypertension Kidney disease Social History Preferred Language: Malagasy Communication Ability: Effective Visual Impairment: No Limitations Hearing Ability: Hard of Hearing Caption Writer Required: No Beliefs That Will Affect Care: None marital status: Current Living Situation: Spouse current occupational status: disabled current occupation: works part-time at [employer] Other Information That Helps Us Care for You: No Feels Safe at Home: Yes Safety Concerns: Feels Safe At This Time Smoking Status: Never smoker Tobacco Type: cigarettes ; Do You Dip or Chew Tobacco: No ; Number of Years Since Quit: 25 ; Second Hand Exposure: No ; Tobacco Cessation Education Requested by Patient: No Hx Alcohol Use: No Hx Substance Use: No Childhood Exposure to Second-Hand Smoke: No Other Diet Comment: regular caffeine: Yes during the past year weight has: remained stable Dental Care, Regularly: Yes Physical Activity Frequency: Does not Exercise Physical Activity Frequency Comment: limited due physical condition Seatbelt Use: sometimes Sunscreen Use: No Review of Systems Review of Systems: All systems reviewed & are unremarkable except as noted in HPI & below Constitutional: no weight loss, no weight gain and no problem reported Eyes: no problem reported Ear, Nose, Mouth, Throat: no problem reported Respiratory: no problem reported Cardiovascular: no problem reported Gastrointestinal: no problem reported Musculoskeletal: no problem reported Integumentary: no problem reported Neurologic: no problem reported Psychiatric: no problem reported Endocrine: no problem reported Hematologic / Lymphatic: no problem reported Physical Exam Constitutional: well developed and comfortable; no acute distress Eyes: + anicteric sclerae; no conjunctival abnormality ENMT: Mouth: no oral mucosal abnormality and oral mucous membranes not dry Neck: normal visual inspection and trachea midline Respiratory: normal respiratory effort Auscultation: + rales Cardiovascular: Rate/Rhythm: regular rate Heart Sounds: normal S1, normal S2 and + murmur Vessels: + JVD Extremities: normal capillary refill and + AV fistula; no edema Gastrointestinal (Abdomen): Percussion/Palpation: abdomen soft; abdomen nontender Musculoskeletal: Extremities: no cyanosis and no clubbing Skin: normal turgor; no lesions Neurologic: Motor/Sensory: no tremor and no asterixis Psychiatric: Orientation: alert and oriented x 3 Results & Data Vital Signs (Past 12 Hours) Vital Signs Temp Pulse Pulse Resp BP BP Pulse Ox 06/13/19 10:58 36.6 C 69 18 200/70 H 92 06/13/19 10:34 36.6 C 69 18 200/70 H 92 06/13/19 09:58 67 18 195/53 H 95 06/13/19 09:30 71 20 06/13/19 09:00 65 06/13/19 08:30 67 23 95 06/13/19 08:29 70 12 95 06/13/19 08:28 94 06/13/19 08:23 68 19 164/103 H 94 06/13/19 08:04 36.4 C L 72 22 164/103 H 98 Pulse Ox 06/13/19 10:58 92 06/13/19 10:34 06/13/19 09:58 06/13/19 09:30 06/13/19 09:00 06/13/19 08:30 06/13/19 08:29 06/13/19 08:28 06/13/19 08:23 06/13/19 08:04 Laboratory Results Laboratory Results - last 24 hr 06/13/19 06/13/19 06/13/19 07:55 07:55 07:55 WBC 7.34 RBC 2.63 L Hgb 8.1 L Hct 25.3 L MCV 96.2 MCH 30.8 MCHC 32.0 RDW Std Deviation 57.7 H RDW Coeff of Jose C 17.7 H Plt Count 197 MPV 10.1 Immature Gran % (Auto) 0.4 Neut % (Auto) 80.3 Lymph % (Auto) 8.7 [place] % (Auto) 6.5 Eos % (Auto) 3.7 Baso % (Auto) 0.4 Immature Gran # (Auto) 0.03 H Neut # (Auto) 5.89 Lymph # (Auto) 0.64 L [place] # (Auto) 0.48 Eos # (Auto) 0.27 Baso # (Auto) 0.03 PT 11.1 INR 1.1 APTT 26.9 PTT Ratio 1.0 Sodium 144 Potassium 4.3 Chloride 106 Carbon Dioxide 27 Anion Gap 11.0 BUN 93 H Creatinine 10.80 H* Est Cr Clr Drug Dosing Not Reportable Est GFR ( Amer) 4.7 Est GFR (Non-Af Amer) 4.1 BUN/Creatinine Ratio 8.7 L Glucose 122 H POC Glucose Lactate Calcium 9.5 Total Bilirubin 0.6 AST 13 L ALT 19 Alkaline Phosphatase 131 H Total Protein 5.9 L Albumin 2.5 L Globulin 3.4 Albumin/Globulin Ratio 0.7 L Blood Type Antibody Screen Crossmatch 06/13/19 06/13/19 06/13/19 09:43 09:44 11:08 WBC RBC Hgb Hct MCV MCH MCHC RDW Std Deviation RDW Coeff of Jose C Plt Count MPV Immature Gran % (Auto) Neut % (Auto) Lymph % (Auto) [place] % (Auto) Eos % (Auto) Baso % (Auto) Immature Gran # (Auto) Neut # (Auto) Lymph # (Auto) [place] # (Auto) Eos # (Auto) Baso # (Auto) PT INR APTT PTT Ratio Sodium Potassium Chloride Carbon Dioxide Anion Gap BUN Creatinine Est Cr Clr Drug Dosing Est GFR ( Amer) Est GFR (Non-Af Amer) BUN/Creatinine Ratio Glucose POC Glucose 168 H Lactate 0.5 Calcium Total Bilirubin AST ALT Alkaline Phosphatase Total Protein Albumin Globulin Albumin/Globulin Ratio Blood Type B Positive Antibody Screen NEGATIVE Crossmatch See Detail PG Care Time/CCT Total # of Minutes Spent Total Time Spent with Patient: Total time spent is greater than 50% in coordination of care (as documented) at patient's floor/unit and/or counseling patient: (1) Anemia Anemia type: unspecified type Qualified Code(s): D64.9 - Anemia, unspecified (2) Hypertension Hypertension type: essential hypertension Qualified Code(s): I10 - Essential (primary) hypertension
[2019-06-13] MEDS: CALCIUM ACETATE 667 MG CAP PO SCH ×2 (13:25→20:08)
[2019-06-13] MEDS: HydrALAZINE TAB 50 MG TAB PO SCH ×2 (13:26→19:36)
[2019-06-13] MEDS: lisinopriL 40 MG TAB PO SCH (13:27)
[2019-06-13] MEDS: NEPHROCAPS PO SCH (13:28)
[2019-06-13] MEDS: DOXAZOSIN MESYLATE 1 MG TAB PO SCH (13:28)
[2019-06-13] MEDS: PANTOprazole 40 MG TAB PO SCH ×2 (13:29→19:37)
[2019-06-13] MEDS: LEVOTHYROXINE SODIUM 200 MCG TABLET PO SCH (13:31)
[2019-06-13] MEDS: LEVOTHYROXINE SODIUM 75 MCG TABLET PO SCH (13:32)
[2019-06-13] MEDS: INSULIN ASPART 100 UNITS/ML 3 ML PEN SC SCH ×3 (13:43→19:51)
[2019-06-13] MEDS: DOCUSATE SODIUM 100 MG CAP PO SCH (14:13)
[2019-06-13] MEDS ORDERED: BENZONATATE 100 MG CAPSULE PO PRN (14:22)
[2019-06-13] MEDS ORDERED: BENZONATATE 100 MG CAPSULE ONE (14:25)
--- NOTE | 2019-06-13 14:32 | Pharmacy Report ---
Glycemic Control Consultation - Date of Service June 13, 2019 - Scope Scope: Glycemic Pharmacist consulted by HEATHER Bernstein on 06/13 for glycemic control and to write orders per [facility] inpatient glycemic control protocol - Objective Weight: 102.4 kg Accuchecks BSG (last 24hrs): 06/13/19 06/13/19 07:55 11:08 Glucose 122 H POC Glucose 168 H Laboratory Data (last 24hrs): 06/13/19 07:55 Potassium 4.3 Carbon Dioxide 27 Anion Gap 11.0 Creatinine 10.80 H* Est Cr Clr Drug Dosing Not Reportable - Recent Pertinent Medications Outpatient Anti-diabetic Regimen: * Levemir 15 units qHS * Novolog per SS * A1c - unreliable in ESRD Risk Factors for Insulin Resistance: * Diet: Renal - Assessment & Plan Assessment & Plan: ASSESSMENT: * 79 y/o male admitted for SOB and nonproductive cough. PMH pertinent for T2DM, ESRD on HD and heart failure. He was recently admitted to [facility] and BSGs at that time were fairly stable on Lantus 8 units qHS, CF 30, CR 10 (was also on a Protonix drip mixed in dextrose). * BSGs stable thus far. Last dose of Levemir was last evening. PLAN FOR INPATIENT GLYCEMIC CONTROL: * Basal insulin * Lantus 7 units SQ qHS * Bolus insulin * NovoLog per scale ACHS or Q6hrs while NPO * Goal Range: Low 120 mg/dL - High 150 mg/dL * Correction Factor: 30 mg/dL/unit * Nutritional / Prandial insulin per carb ratio of 1 unit per 10 grams CHO consumed * Added T2DM diet to current diet * Please note that the plan above was derived based on current level of insulin resistance and hospital stress. These recommendations are appropriate for inpatient admission only. Plan of care upon discharge will need to be reassessed to avoid potential outpatient hypo/hyperglycemia. Thank you.
[2019-06-13] MEDS: BUMETANIDE 1 MG TAB PO SCH (19:36)
[2019-06-13] MEDS: LABETALOL HCL 200 MG TAB PO SCH (19:37)
[2019-06-13] MEDS: FERROUS SULFATE 325 MG TAB PO SCH (19:38)
[2019-06-13] MEDS: HEPARIN SOD 5,000 UNIT/0.5 ML VIAL SQ SCH (19:39)
[2019-06-13] MEDS ORDERED: AMLODIPINE BESYLATE 5 MG TAB PO SCH (21:00)
[2019-06-13] MEDS ORDERED: TAMSULOSIN HCL 0.4 MG CAP PO SCH (21:00)
[2019-06-13] MEDS ORDERED: INSULIN DETEMIR SQ SCH (21:00)
[2019-06-13] MEDS ORDERED: INSULIN DETEMIR FLEXPEN/FLEX TOUCH 100 UNITS/ML 3ML SC SCH (21:00)
[2019-06-13] MEDS ORDERED: GABAPENTIN 100 MG CAP PO SCH (21:00)
[2019-06-13] MEDS ORDERED: ROSUVASTATIN CALCIUM 20 MG TAB PO SCH (21:00)
[2019-06-14] MEDS: LEVOTHYROXINE SODIUM 200 MCG TABLET PO SCH (05:24)
[2019-06-14] MEDS: HydrALAZINE TAB 50 MG TAB PO SCH (05:24)
[2019-06-14] MEDS: LEVOTHYROXINE SODIUM 75 MCG TABLET PO SCH (05:24)
--- NOTE | 2019-06-14 05:52 | Electrocardiogram Report ---
Test Reason : Blood Pressure : / mmHG Vent. Rate : 070 BPM Atrial Rate : 070 BPM P-R Int : 212 ms QRS Dur : 158 ms QT Int : 474 ms P-R-T Axes : 080 091 -54 degrees QTc Int : 511 ms Sinus rhythm with 1st degree A-V block Right bundle branch block T wave abnormality, consider inferolateral ischemia Abnormal ECG When compared with ECG of 06-JUN-2019 13:20, Premature atrial complexes are no longer Present Confirmed by Martin Daugherty ([id number]) on 06/14/2019 5:51:57 AM Referred By: REFERRED SELF Confirmed By:Martin Daugherty
[2019-06-14 05:54] LABS: Basophils # (auto) 0.04 K/uL (0-0.2); Basophils % (auto) 0.7 %; Eosinophils # (auto) 0.31 K/uL (0-0.5); Eosinophils % (auto) 5.5 %; Hematocrit (blood only) 26.1 % (42-52); Hemoglobin 8.1 g/dL (14.0-18.0); Immature Granulocytes # (auto) 0.02 K/uL (0.00-0.02); Immature Granulocytes % (auto) 0.4 %; Lymphocytes # (auto) 0.45 K/uL (1.2-3.4); Lymphocytes % (auto) 7.9 %; Mean Corpuscular Hemoglobin 29.7 pg (25-34); Mean Corpuscular Volume 95.6 fL (80-100); Mean Platelet Volume 10.2 fL (7.4-10.4); Monocytes # (auto) 0.52 K/uL (0.11-0.59); Monocytes % (auto) 9.2 %; Neutrophils # (auto) 4.33 K/uL (1.4-6.5); Neutrophils % (auto) 76.3 %; Platelet Count 201 K/uL (130-400); RDW Coefficient of Variation 17.9 % (11.5-14.5); RDW Standard Deviation 59.4 fL (36.4-46.3); Red Blood Count 2.73 M/uL (4.7-6.1); White Blood Count 5.67 K/uL (4.8-10.8)
[2019-06-14 06:40] LABS: BUN Creatinine Ratio 7.5 (10-20); Calcium 9.1 mg/dl (8.5-10.1); Creatinine Clr Calc Pharmacy 11.4 ml/min; Est GFR (African American) 8.7; Est GFR (Non-African American) 7.5; Potassium 3.9 mmol/L (3.5-5.1)
--- NOTE | 2019-06-14 07:05 | XRay Report ---
XR chest 1V portable CLINICAL HISTORY: Shortness of breath COMPARISON STUDY: 06/13/2019 FINDINGS: The heart remains enlarged. There is mild improvement in the previously identified bibasila r opacities left greater than right. There is no overt failure. There are no significant pleural effu sions.[ IMPRESSION: 1. Mild improvement in the previously identified bibasilar opacities ACT 112: Negative or not required by law. Electronically signed by: Gino Gu M.D. 06/14/2019 7:04 AM
[2019-06-14] MEDS: INSULIN ASPART 100 UNITS/ML 3 ML PEN SC SCH ×2 (07:59→11:49)
[2019-06-14] MEDS: FERROUS SULFATE 325 MG TAB PO SCH (08:03)
[2019-06-14] MEDS: PANTOprazole 40 MG TAB PO SCH (08:03)
[2019-06-14] MEDS: CALCIUM ACETATE 667 MG CAP PO SCH ×2 (08:03→11:49)
[2019-06-14] MEDS: BUMETANIDE 1 MG TAB PO SCH (08:03)
[2019-06-14] MEDS: DOXAZOSIN MESYLATE 1 MG TAB PO SCH (08:03)
[2019-06-14] MEDS: LABETALOL HCL 200 MG TAB PO SCH (08:03)
[2019-06-14] MEDS: HEPARIN SOD 5,000 UNIT/0.5 ML VIAL SQ SCH (08:05)
[2019-06-14] MEDS: DOCUSATE SODIUM 100 MG CAP PO SCH (08:38)
[2019-06-14] MEDS: NEPHROCAPS PO SCH (08:38)
[2019-06-14] MEDS ORDERED: MULTIVITAMIN TAB PO SCH (09:00)
--- NOTE | 2019-06-14 09:03 | Pharmacy Report ---
Pharmacy Glycemic Short Note 2 - Date of Service June 14, 2019 - Glycemic Short BSG Results (Last 24 hours): 06/13/19 06/13/19 06/13/19 07:55 11:08 16:17 Glucose 122 H POC Glucose 168 H 139 H 06/13/19 06/14/19 06/14/19 19:46 05:10 06:52 Glucose 127 H POC Glucose 114 H 127 H OUTPATIENT ANTIDIABETIC REGIMEN: * Levemir 15 units qHS * Novolog per SS * A1c - unreliable in ESRD - Assessment & Plan ASSESSMENT: 06/14 * Patient is currently receiving an average of 11 units of insulin per day * 7 units of basal insulin * 4 units of prandial/correctional insulin * BSGs ranging 114- 168 over the past 24hrs * Risk factors for insulin resistance are constant over the past 24hrs 06/13 * 79 y/o male admitted for SOB and nonproductive cough. PMH pertinent for T2DM, ESRD on HD and heart failure. He was recently admitted to [facility] and BSGs at that time were fairly stable on Lantus 8 units qHS, CF 30, CR 10 (was also on a Protonix drip mixed in dextrose). * BSGs stable thus far. Last dose of Levemir was last evening. PLAN FOR INPATIENT GLYCEMIC CONTROL: * Basal insulin - no change * Lantus 7 units SQ qHS * Bolus insulin - no change * NovoLog per scale ACHS or Q6hrs while NPO * Goal Range: Low 120 mg/dL - High 150 mg/dL * Correction Factor: 30 mg/dL/unit * Nutritional / Prandial insulin per carb ratio of 1 unit per 10 grams CHO consumed PLAN FOR DISCHARGE: * Patient's A1c result is likely somewhat unreliable in ESRD patients d/t interactions between the A1c analyzing technique and high levels of urea in ESRD, reduced RBC life span, iron deficiency anemia, and EPO administration. HbA1c > 7.5% in ESRD patient may overestimate the extent of hyperglycemia in ESRD patients. * Recommend to resume outpatient regimen on discharge as long as patient not experiencing hypoglycemia
--- NOTE | 2019-06-14 10:15 | Nephrology Progress Note ---
Date of Service June 14, 2019 Assessment & Plan (1) ESRD (end stage renal disease): ESRD due to diabetic nephropathy. Dialyzes TTS at [facility]. PMH: HTN, AODM, vascular dementia, IgG monoclonal gammopathy, EFREN, BPH, hypothyroidism, and CHF w/ diastolic dysfunction. History of non-compliance with treatment. Augie presented with volume overload and accelerated hypertension. He did not attend scheduled outpatient dialysis treatment on . The importance of compliance with treatment was stressed. He completed an urgent HD treatment yesterday for UF ~ 3L. Volume status and blood pressure are controlled at this time. Augie overall feels well. He is stable for discharge but it is absolutely essential that he attends outpatient HD as scheduled to prevent rehospitalization. (2) Anemia: H/H will be rechecked on Saturday at his dialysis treatment. (3) SOB (shortness of breath): Improved. Consistent with volume overload from missed dialysis. CXR reviewed. EKG without acute changes. (4) Hypertension: Accelerated and symptomatic in setting of volume overload. Well controlled this morning. Maintained on labetalol, lisinopril, amlodipine, doxazosin, and hydralazine. Subjective No acute events overnight. Augie feels well this morning. He denies any chest pain. He is breathing comfortably. He has been ambulating in the alfredo. He wants to go home. I discussed the plan of care with Dr. Gold. The importance of follow up with outpatient dialysis treatments as scheduled was stressed with Augie. I reviewed the risks associated with missed HD treatments including rehospitalization, respiratory or heart failure, and possible with Augie. Review of Systems Review of Systems: All systems reviewed & are unremarkable except as noted in HPI & below Physical Exam Constitutional: well developed and comfortable; no acute distress Eyes: + anicteric sclerae; no conjunctival abnormality ENMT: Mouth: no oral mucosal abnormality and oral mucous membranes not dry Neck: normal visual inspection and trachea midline Respiratory: normal respiratory effort Auscultation: + rales Cardiovascular: Rate/Rhythm: regular rate Heart Sounds: normal S1, normal S2 and + murmur Vessels: + JVD Extremities: normal capillary refill and + AV fistula; no edema Gastrointestinal (Abdomen): Percussion/Palpation: abdomen soft; abdomen nontender Musculoskeletal: Extremities: no cyanosis and no clubbing Skin: normal turgor; no lesions Neurologic: Motor/Sensory: no tremor and no asterixis Psychiatric: Orientation: alert and oriented x 3 Results & Data Vital Signs (Past 12 Hours) Vital Signs Temp Pulse Pulse Resp BP Pulse Ox 06/14/19 07:15 36.7 C 60 18 136/42 L 90 06/14/19 07:10 55 L 06/14/19 04:46 36.8 C 62 17 133/55 L 92 06/14/19 00:07 36.9 C 59 L 18 141/45 H 92 Laboratory Results Laboratory Results - last 24 hr 06/13/19 06/13/19 06/13/19 09:43 09:44 11:08 WBC RBC Hgb Hct MCV MCH MCHC RDW Std Deviation RDW Coeff of Jose C Plt Count MPV Immature Gran % (Auto) Neut % (Auto) Lymph % (Auto) [place] % (Auto) Eos % (Auto) Baso % (Auto) Immature Gran # (Auto) Neut # (Auto) Lymph # (Auto) [place] # (Auto) Eos # (Auto) Baso # (Auto) Sodium Potassium Chloride Carbon Dioxide Anion Gap BUN Creatinine Est Cr Clr Drug Dosing Est GFR ( Amer) Est GFR (Non-Af Amer) BUN/Creatinine Ratio Glucose POC Glucose 168 H Lactate 0.5 Calcium Nasal Screen MRSA (PCR) Blood Type B Positive Antibody Screen NEGATIVE Crossmatch See Detail 06/13/19 06/13/19 06/13/19 16:17 19:46 Unknown WBC RBC Hgb Hct MCV MCH MCHC RDW Std Deviation RDW Coeff of Jose C Plt Count MPV Immature Gran % (Auto) Neut % (Auto) Lymph % (Auto) [place] % (Auto) Eos % (Auto) Baso % (Auto) Immature Gran # (Auto) Neut # (Auto) Lymph # (Auto) [place] # (Auto) Eos # (Auto) Baso # (Auto) Sodium Potassium Chloride Carbon Dioxide Anion Gap BUN Creatinine Est Cr Clr Drug Dosing Est GFR ( Amer) Est GFR (Non-Af Amer) BUN/Creatinine Ratio Glucose POC Glucose 139 H 114 H Lactate Calcium Nasal Screen MRSA (PCR) Negative Blood Type Antibody Screen Crossmatch 06/14/19 06/14/19 06/14/19 05:10 05:10 06:52 WBC 5.67 RBC 2.73 L Hgb 8.1 L Hct 26.1 L MCV 95.6 MCH 29.7 MCHC 31.0 L RDW Std Deviation 59.4 H RDW Coeff of Jose C 17.9 H Plt Count 201 MPV 10.2 Immature Gran % (Auto) 0.4 Neut % (Auto) 76.3 Lymph % (Auto) 7.9 [place] % (Auto) 9.2 Eos % (Auto) 5.5 Baso % (Auto) 0.7 Immature Gran # (Auto) 0.02 Neut # (Auto) 4.33 Lymph # (Auto) 0.45 L [place] # (Auto) 0.52 Eos # (Auto) 0.31 Baso # (Auto) 0.04 Sodium 139 Potassium 3.9 Chloride 104 Carbon Dioxide 29 Anion Gap 6.0 BUN 49 H Creatinine 6.51 H* D Est Cr Clr Drug Dosing 11.4 Est GFR ( Amer) 8.7 Est GFR (Non-Af Amer) 7.5 BUN/Creatinine Ratio 7.5 L Glucose 127 H POC Glucose 127 H Lactate Calcium 9.1 Nasal Screen MRSA (PCR) Blood Type Antibody Screen Crossmatch PG Care Time/CCT Total # of Minutes Spent Total Time Spent with Patient: Total time spent is greater than 50% in coordination of care (as documented) at patient's floor/unit and/or counseling patient: (1) Anemia Anemia type: unspecified type Qualified Code(s): D64.9 - Anemia, unspecified (2) Hypertension Hypertension type: essential hypertension Qualified Code(s): I10 - Essential (primary) hypertension
[2019-06-14] MEDS: lisinopriL 40 MG TAB PO SCH (11:49)
--- NOTE | 2019-06-14 15:58 | Discharge Summary ---
Date of Service June 14, 2019 Admission HPI Per Admitting Provider Attending: Dr. Stephen Gold This is a 79-year-old male with a past medical history of CAD, diastolic CHF, hypertension, hyperlipidemia, pulmonary hypertension, asthma, COPD, diabetes mellitus type 2, chronic kidney disease stage V on chronic dialysis, peripheral neuropathy, GERD, chronic GI bleed, obstructive sleep apnea, secondary hyperparathyroidism, arthritis, anxiety, and depression. Patient was recently admitted and discharged on 06/10/2019. He states that this morning he woke up and had some shortness of breath and nonproductive cough. He states that there is sputum that he cannot clear. He last had dialysis on Saturday and is scheduled for Saturday. He missed his episode of dialysis secondary to feeling weak and "other issues" which he did not want to elaborate on. The patient is not hypotensive. He is not hypoxic. He is afebrile. Hemoglobin appears stable at 8.1. Patient denies any acute bleeding. Patient had an EGD on 06/08/2019 which revealed multiple 6 mm pedunculated and sessile polyps with no bleeding or stigmata. There was one nonbleeding superficial gastric ulcer with no stigmata of bleeding. There is localized moderately erythematous mucosa without bleeding. There was a large nonbleeding diverticulum in the second portion of the duodenum. Patient has been treated with pantoprazole 40 mg p.o. twice daily. Patient did receive 2 units of packed red blood cells last admission. He was seen by hematology by Dr. Simmons. Assessment was chronic, multifactorial anemia. Iron studies did not reveal deficiency but patient is continued empirically on ferrous sulfate. Platelet count is normal and patient denies any long-term or regular NSAID use. Principal Diagnosis Volume overload from skipping dialysis Discharge Exam Constitutional well developed and comfortable; no acute distress Eyes + anicteric sclerae; no conjunctival abnormality ENMT Mouth: no oral mucosal abnormality and oral mucous membranes not dry Neck normal visual inspection and trachea midline Respiratory normal respiratory effort Auscultation: + rales Cardiovascular Rate/Rhythm: regular rate Heart Sounds: normal S1, normal S2 and + murmur Vessels: + JVD Extremities: normal capillary refill and + AV fistula; no edema Gastrointestinal (Abdomen) Percussion/Palpation: abdomen soft; abdomen nontender Musculoskeletal Extremities: no cyanosis and no clubbing Skin normal turgor; no lesions Neurologic Motor/Sensory: no tremor and no asterixis Psychiatric Orientation: alert and oriented x 3 Discharge Data Allergies Allergy/AdvReac Type Severity Reaction Status Date / Time tramadol AdvReac Severe disorented Verified 06/13/19 10:00 ,falling down metformin AdvReac Intermediate CONFUSION Verified 06/13/19 10:00 Consultations 06/13/19 09:17 ED Decision to Admit Stat 06/13/19 10:58 Consult Case Management - Discharge Planning Routine Consult Nephrology Routine Hospital Course (1) SOB (shortness of breath): Due to skipping dialysis. I emphasized this will happen again if he misses dialysis. I emphasized this to the patient multiple times and to family. He has to go to dialysis, otherwise, he will get overloaded again. He felt very well on discharge. (2) ESRD (end stage renal disease): ESRD due to diabetic nephropathy. Dialyzes TTS at [facility]. (3) Anemia: Due to ESRD and recurrent GI bleeds. - H/H will be rechecked on Saturday at his dialysis treatment. (4) Hypertension: Accelerated and symptomatic in setting of volume overload. Well controlled this morning. Maintained on labetalol, lisinopril, amlodipine, doxazosin, and hydralazine. Total Time Total Time Spent Total Time Spent (In Minutes): 45 Discharge Plan Discharge Items Patient Disposition: Home - Self-Care Reason For Visit: SOB,NEED FOR HD,ANEMIA Discharge Diagnosis: Volume overload (too much fluid) from missing dialysis Activity: Resume your previous activity Non-emergency contact: Primary Care Provider and [employer] Worker Call non-emergency contact if: your symptoms worsen Follow-up/Referrals: Mahsa Wang DO [Primary Care Provider] - Ramo Simmons [Physician] - Diet: Carb Consistent or DM2 and Dialysis Renal Addtl Attending Provider Instructions: Mr. Mcintyre, You were admitted to the hospital with shortness of breath that was a result of too much fluid on your lungs. This can be directly related to missing dialysis on and then coming to the hospital on Saturday instead of going to dialysis. You must go to dialysis. It is the only way to keep fluid from building up in your lungs and the rest of your body and the only way to get the toxins out of your system. Unfortunately, you kidneys no longer function well enough to their job. You need dialysis to live. If you skip dialysis or don't go because you don't feel good, you will end up back in the hospital. It's as simple as that. It stinks, but there's nothing else that we as doctors can do about the situation other than encourage you to go to dialysis regularly. Your blood counts (hemoglobin) were stable in the hospital. You run low because of your history of GI bleeding and because the kidneys help encourage the body to make more red blood cells. The medical staff at dialysis will monitor your blood counts and give you iron and Epogen shots (a medication that helps your body make more red blood cells) if you need them. Again, it is necessary that you go to dialysis for them to help you. I did send a cough pill to the pharmacy for you. You can take it up to 3 times per day if you need to for cough. You can also take sugar-free cough drops if it helps. Going to dialysis will help with the cough as the fluid continues to come off your lungs, it will help reduce the cough some. Finally, I stopped one blood pressure medication (lisinopril) which can cause a cough. If your blood pressure gets too high, they can start a blood pressure medication that does not cause any coughing (called losartan). Monitor your blood pressure at home to be sure it remains stable off the lisinopril. Pending Studies at Discharge: No Stand-Alone Forms: My [facility] [employer], Smoking Cessation Medications and DC Order Prescriptions: New benzonatate [Tessalon Perles] 100 mg Capsule 100 mg PO TID PRN (Reason: cough) Qty: 30 RF: 0 Continued gabapentin 100 mg capsule 200 mg PO HS Qty: 60 RF: 5 doxazosin [Cardura] 1 mg tablet 1 mg PO DAILY Qty: 30 RF: 5 calcium acetate 667 mg tablet 2,001 mg PO TIDM RF: 0 bumetanide 1 mg tablet 1 mg PO BID Qty: 60 RF: 2 hydralazine 25 mg tablet 50 mg PO Q8H RF: 0 ferrous sulfate 325 mg (65 mg iron) tablet,delayed release (DR/EC) 325 mg PO BID Qty: 60 RF: 0 darbepoetin rasheed in polysorbat 60 mcg/mL solution 60 mcg subcut .COMPLEX Qty: 4 RF: 0 docusate sodium 100 mg capsule 200 mg PO QAM Qty: 30 RF: 0 Levemir U-100 Insulin 100 unit/mL solution 15 units subcut HS RF: 0 Renal Caps 1 mg Capsule 1 cap PO DAILY RF: 0 amlodipine 10 mg tablet 10 mg PO HS RF: 0 sucralfate 1 gram tablet 1 g PO QID RF: 0 tamsulosin 0.4 mg capsule 0.4 mg PO HS Qty: 90 RF: 1 levothyroxine 200 mcg tablet 200 mcg PO QAM RF: 0 levothyroxine 75 mcg tablet 75 mcg PO QAM RF: 0 Boost Glucose Control 0.06-1.1 gram-kcal/mL Liquid 1 ea PO TIDM RF: 0 rosuvastatin 20 mg tablet 20 mg PO HS RF: 0 pantoprazole 40 mg tablet,delayed release (DR/EC) 40 mg PO AMPM RF: 0 multivitamin Tablet 1 tab PO DAILY RF: 0 labetalol 200 mg Tablet 200 mg PO BID RF: 0 insulin aspart U-100 [Novolog U-100 Insulin aspart] 100 unit/mL solution See Rx Instructions .ROUTE .COMPLEX RF: 0 Discontinued lisinopril 40 mg tablet 40 mg PO DAILY@1200 Qty: 90 RF: 3 Discharge Orders: Discharge Order (Routine); Ordered 06/14/19 Ordered By: Stephen Gold Admission Data Admit Date/Time: 06/13/19 09:44 Attending Provider: Stephen Gold Admit Provider: Kendall Chen Primary Care Provider: Mahsa Wang Other Providers: Jama Gracia ; Stephen Gold Other Interventions: Discharge Summary Assessment (RN) Last Done: 06/14/19 12:21 DC Date/Time DO NOT enter until pt leaves facility: 06/14/19 13:35
== END 2019-06-14 13:35 | disposition home or self-care (01) | DRG 640 ==
LOC: ED 08:19 → 2E 09:44 → SUATTDRO 09:44 → 2E 10:10

== ENCOUNTER 2019-06-23 13:13 | Inpatient (IN) ==
[2019-06-23] MEDS ORDERED: ALBUT/IPRATROP 3MG/0.5MG NEB 3 ML VIAL NEB STA (13:50)
--- NOTE | 2019-06-23 14:12 | XRay Report ---
XR chest 1V portable HISTORY: Atypical Chest Pain COMPARISON: Chest 06/21/2019. FINDINGS: The heart remains mildly enlarged. No evidence for pulmonary edema. No pleural effusions. N o pneumothorax. Slightly rotated study. Left basilar densities persist. The right lung is essentially clear. IMPRESSION: No significant change compared to the prior study. Stable cardiomegaly and left basilar densities sug gesting atelectasis. ACT 112: Negative or not required by law. Electronically signed by: Jose C Jaeger M.D. 06/23/2019 2:10 PM
[2019-06-23 14:21] LABS: Basophils # (auto) 0.02 K/uL (0-0.2); Basophils % (auto) 0.5 %; Eosinophils # (auto) 0.19 K/uL (0-0.5); Eosinophils % (auto) 5.1 %; Hematocrit (blood only) 22.1 % (42-52); Hemoglobin 7.1 g/dL (14.0-18.0); Immature Granulocytes # (auto) 0.01 K/uL (0.00-0.02); Immature Granulocytes % (auto) 0.3 %; Lymphocytes # (auto) 0.41 K/uL (1.2-3.4); Lymphocytes % (auto) 11.1 %; Mean Corpuscular Hemoglobin 30.9 pg (25-34); Mean Corpuscular Hgb Conc 32.1 g/dL (32-36); Mean Corpuscular Volume 96.1 fL (80-100); Mean Platelet Volume 9.5 fL (7.4-10.4); Monocytes # (auto) 0.39 K/uL (0.11-0.59); Monocytes % (auto) 10.5 %; Neutrophils # (auto) 2.68 K/uL (1.4-6.5); Neutrophils % (auto) 72.5 %; Platelet Count 151 K/uL (130-400); RDW Standard Deviation 62.2 fL (36.4-46.3)
[2019-06-23 14:46] LABS: Albumin Globulin Ratio 0.8 (0.9-2); Albumin Level 2.6 gm/dl (3.4-5.0); BUN Creatinine Ratio 7.9 (10-20); Bilirubin,Total 0.4 mg/dl (0.2-1); Calcium 8.3 mg/dl (8.5-10.1); Creatinine Clr Calc Pharmacy 18.5 ml/min; Est GFR (African American) 15.4; Est GFR (Non-African American) 13.3; Globulin 3.3 gm/dl (2.5-4.0); Potassium 3.1 mmol/L (3.5-5.1); Total Protein 5.9 gm/dl (6.4-8.2); Troponin I 0.052 ng/ml (0-0.045)
[2019-06-23 14:55] LABS: Anisocytosis Present; Basophilic Stippling 1+
--- NOTE | 2019-06-23 15:09 | Emergency Department Note ---
ED Visit Note I saw this patient in conjunction with Dr. Perales, and agree with the impression and assessment as outlined in his documentation. For all pertinent details and findings regarding this patient's care please see his documentation.. Resident Activity Tracking Resident Involvement: Resident Care Provided Care Provided: Adult ED
--- NOTE | 2019-06-23 18:34 | History & Physical Report ---
Date of Service June 23, 2019 Assessment & Plan (1) Symptomatic anemia: Admit to [facility] on telemetry Vital signs every 4 hours Check CBC CMP daily We will give 2 units of PRBC continue Continue monitoring PRBCs Iron studies pending Fecal occult blood pending DVT prophylaxis teds Full code Present on Admission?: Yes (2) End stage chronic kidney disease: Patient should continue following his schedule Saturday/Saturday/Saturday Placed consult for nephrology Present on Admission?: Yes (3) Elevated troponin: Patient has chronically elevated troponin, Part of it is due to poor clearance related to end-stage renal disease. Patient does not have any chest pain No rise in troponin Present on Admission?: Yes (4) GAVE (gastric antral vascular ectasia): Continue monitoring Patient could possibly have GI bleed from the site. Fecal occult blood pending Continue sucralfate 1 g p.o. 4 times daily Continue pantoprazole 40 mg p.o. twice daily Present on Admission?: Yes (5) Cirrhosis: AST ALT stable, continue monitoring Present on Admission?: Yes (6) Diabetes: Continue Accu-Cheks before meals and at bedtime, continue insulin detemir two thirds of the home dose while patient is in the hospital. Sliding scale insulin, glycemic control per pharmacy. Present on Admission?: Yes (7) Hyperlipidemia LDL goal <70: Lipid panel pending. Continue rosuvastatin 20 mg p.o. nightly (8) Hypertension: Stable, continue labetalol 200 mg p.o. twice daily, hydralazine 50 mg p.o. nightly, bumetanide 1 mg p.o. twice daily. Present on Admission?: Yes (9) Hypothyroidism: Continue levothyroxine 200 MCG's p.o. every morning. Present on Admission?: Yes History of Present Illness Chief Complaint: Shortness of breath and severe anemia Primary Care Provider: Mahsa Wang, The patient is a 79 years old male with past medical history of COPD, asthma, hypertension, hypothyroidism, benign prostatic hypertrophy, coronary artery disease, pulmonary hypertension, end-stage renal disease, obstructive sleep apnea, IgG monoclonal gammopathy, hearing difficulties, diabetes mellitus type 2 with diabetic peripheral neuropathy, depression who was brought to the emergency room with a complaint of worsening shortness of breath that started earlier today. Patient who was present in the room states that patient regularly receives dialysis on Saturday, Saturday and Saturday for end-stage renal disease. Patient had treatment today and he goes to [place]. Patient usually needs 2 L of supplemental oxygen at home at night. In the past several days patient had difficulties walking in the bathroom due to shortness of breath. Patient felt some discomfort and a productive cough. Patient was coughing up clear mucus. Patient was placed by his Dr. Wang and doxycycline for his productive cough. She denies fever, chills, chest pain,, abdominal pain, frequency, urgency. Patient has history of liver cirrhosis and anemia. He received multiple blood transfusions in the past at [facility] the last one was 2 weeks ago. EKG shows sinus tachycardia with a second-degree AV block Mobitz 2. T wave abnormality considering inferolateral ischemia. This is different than the EKG recorded previously on June 21, 2019. Labs are reviewed: Sodium 138, potassium 3.1, chloride 99, BUN 32, creatinine 4.06, GFR 13.3,AST 24, ALT 29, alkaline phosphatase 139, troponin 0.0 52. Total protein 5.9, albumin 2.6, globulin 3.3. Urine yellow trace glucose, 2+ proteins, leukocyte Estrace trace, urine WBCs 5-10, epithelial cells 20-30, urine yeast present. Chest x-ray is no significant change compared to the previous study. Stable cardiomegaly and left base basilar density suggesting atelectasis. Decision was made to admit patient to [facility] on telemetry for severe anemia with shortness of breath and to transfuse 2 units of blood. Allergies Allergy/AdvReac Type Severity Reaction Status Date / Time sucralfate [From Carafate] Allergy Mild upset Verified 06/23/19 13:54 dialysis tramadol AdvReac Severe disorented Verified 06/23/19 13:54 ,falling down metformin AdvReac Intermediate CONFUSION Verified 06/23/19 13:54 Home Medications Home Medications Medication Instructions Recorded Confirmed Type tamsulosin 0.4 mg PO HS #90 cap 01/02/19 06/23/19 Rx docusate sodium 100 mg capsule 200 mg PO QAM #30 cap 01/19/19 06/23/19 Rx gabapentin 100 mg capsule 200 mg PO HS #60 cap 02/04/19 06/23/19 Rx levothyroxine 200 mcg PO QAM 02/15/19 06/23/19 History Boost Glucose Control 1 ea PO TIDM 03/18/19 06/23/19 History insulin detemir U-100 100 unit/mL 15 units SUBCUT HS ml 03/25/19 06/23/19 History subcutaneous solution rosuvastatin 20 mg PO HS 04/07/19 06/23/19 History levothyroxine 75 mcg PO QAM 04/24/19 06/23/19 History pantoprazole 40 mg PO BID 04/25/19 06/23/19 History Renal Caps 1 cap PO QDL 05/23/19 06/23/19 History bumetanide 1 mg tablet 1 mg PO BID #60 tab 06/02/19 06/23/19 Rx calcium acetate 667 mg tablet 2,001 mg PO TIDM tab 06/02/19 06/23/19 History darbepoetin rasheed in polysorbat 60 60 mcg SUBCUT .COMPLEX #4 ml 06/02/19 06/23/19 Rx mcg/mL in polysorbate injection ferrous sulfate 325 mg (65 mg 325 mg PO BID #60 tab 06/02/19 06/23/19 Rx iron) tablet,delayed release hydralazine 25 mg tablet 50 mg PO Q8H tab 06/02/19 06/23/19 History insulin aspart U-100 [Novolog See Rx Instructions .ROUTE .COMPLEX 06/06/19 06/23/19 History U-100 Insulin aspart] labetalol 200 mg PO BID 06/06/19 06/23/19 History amlodipine 10 mg PO HS 06/13/19 06/23/19 History sucralfate 1 g PO QID 06/13/19 06/23/19 History benzonatate [Tessalon Perles] 100 mg PO TID PRN #30 cap 06/14/19 06/23/19 Rx doxycycline hyclate 100 mg tablet 100 mg PO BID 10 Days #20 tab 06/15/19 06/23/19 Rx doxazosin [Cardura] 1 mg PO QAM 06/23/19 06/23/19 History lisinopril 40 mg PO QAM 06/23/19 06/23/19 History Past Med/Surg History Medical History Acute blood loss anemia Anxiety Arthritis Asthma AVF (arteriovenous fistula) left arm BPH (benign prostatic hyperplasia) CAD (coronary artery disease) Chronic diastolic congestive heart failure Chronic kidney disease, stage IV (severe) dialysis - [facility], sat at [facility] with dr herrera Colon, diverticulosis 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, with long-term current use of insulin COPD (chronic obstructive pulmonary disease) Depression Diabetic peripheral neuropathy 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 Mando White. 50mg propofol, no issues. H/O hemorrhoidectomy History of esophagogastroduodenoscopy (EGD) x 2 at [facility] during admission from 05/23/19-05/30/19 Hx of cholecystectomy Family History Unknown Myocardial infarction Diabetes Mother Diabetes Gallbladder disease Hypertension Breast cancer late 70s Father Diabetes Hypertension Brother Diabetes Hypertension Kidney disease Social History Preferred Language: Grenadian Communication Ability: Effective Visual Impairment: No Limitations Hearing Ability: Hard of Hearing Geological Aide Required: No Beliefs That Will Affect Care: None marital status: Current Living Situation: Spouse current occupational status: disabled current occupation: works part-time at [employer] Other Information That Helps Us Care for You: No Feels Safe at Home: Yes Safety Concerns: Feels Safe At This Time Smoking Status: Former smoker Tobacco Type: cigarettes ; Number of Years Since Quit: 25 ; Second Hand Exposure: No ; Hx Alcohol Use: No Hx Substance Use: No Childhood Exposure to Second-Hand Smoke: No Other Diet Comment: regular caffeine: Yes during the past year weight has: remained stable Dental Care, Regularly: Yes Physical Activity Frequency: Does not Exercise Physical Activity Frequency Comment: limited due physical condition Seatbelt Use: sometimes Sunscreen Use: No Review of Systems Review of Systems: All systems reviewed & are unremarkable except as noted in HPI & below Physical Exam Constitutional: WD/WN, vitals as above well developed and + obese Eyes: PERRL, conjunctivae normal, anicteric sclerae ENMT: external ear and nose normal, oropharynx normal Mouth: + loose teeth hard on hearing Neck: trachea midline, no thyromegaly Respiratory: normal respiratory effort, lungs clear to auscultation Cardiovascular: Rate/Rhythm: regular rate and regular rhythm Heart Sounds: normal S1, normal S2 and + murmur Extremities: + pedal edema Gastrointestinal (Abdomen): normal bowel sounds, soft, nontender, no hepatosplenomegaly Musculoskeletal: no cyanosis or clubbing, extremities motor strength 5/5 Skin: no rashes, warm and dry Neurologic: patellar DTR's 2+ bilat, sensation intact Psychiatric: A+Ox3, euthymic affect Lymphatic: no cervical or axillary lymphadenopathy Results & Data Vital Signs (Past 12 Hours) Vital Signs Temp Pulse Pulse Resp BP Pulse Ox 06/23/19 18:01 37.2 C 67 19 155/58 H 95 06/23/19 18:00 66 16 06/23/19 17:57 66 19 06/23/19 17:56 65 20 166/68 H 06/23/19 17:51 37.3 C 61 19 160/82 H 93 06/23/19 17:49 64 19 160/82 H 94 06/23/19 17:48 64 16 06/23/19 17:20 63 15 06/23/19 17:10 62 18 06/23/19 17:01 64 19 06/23/19 17:00 63 19 153/69 H 06/23/19 16:50 73 21 06/23/19 16:40 64 19 06/23/19 16:31 64 19 06/23/19 16:30 65 20 156/55 H 06/23/19 16:20 65 19 06/23/19 16:10 63 20 06/23/19 16:01 63 20 06/23/19 16:00 64 21 140/56 L 06/23/19 15:50 66 18 06/23/19 15:46 64 19 158/64 H 06/23/19 15:44 64 18 06/23/19 15:00 69 22 06/23/19 14:30 71 19 06/23/19 14:08 67 14 91 06/23/19 14:06 92 06/23/19 14:00 68 20 06/23/19 13:30 66 19 90 06/23/19 13:26 37.0 C 75 17 144/60 H 91 06/23/19 13:22 67 20 144/60 H 91 Code Status & VTE Plan Code Status Full Code VTE Prophylaxis Plan VTE Prophylaxis will be ordered: Yes PG Care Time/CCT Total # of Minutes Spent Total Time Spent with Patient: Total time spent is greater than 50% in coordination of care (as documented) at patient's floor/unit and/or counseling patient: (1) Cirrhosis Ascites presence: unspecified Hepatic cirrhosis type: unspecified hepatic cirrhosis Qualified Code(s): K74.60 - Unspecified cirrhosis of liver (2) Diabetes Diabetes mellitus type: type 2 Diabetes mellitus extermination inspector insulin use: with extermination inspector use Diabetes mellitus complication status: with kidney complications Diabetes mellitus complication detail: with chronic kidney disease Chronic kidney disease stage: on chronic dialysis Qualified Code(s): E11.22 - Type 2 diabetes mellitus with diabetic chronic kidney disease; N18.6 - End stage renal disease; Z79.4 - longterm (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
[2019-06-23] MEDS ORDERED: INSULIN ASPART PER UNIT SC SCH (19:49)
[2019-06-23] MEDS ORDERED: POLYETHYLENE (MIRALAX) 17 GM PACK PO PRN (19:49)
[2019-06-23] MEDS ORDERED: GLUCOSE 40% GEL 15 GM TUBE PO PRN (19:49)
[2019-06-23] MEDS ORDERED: GLUCOSE 10 TABS/TUBE PO PRN (19:49)
[2019-06-23] MEDS ORDERED: CARBOHYDRATES FOR HYPOGLYCEMIA PO PRN (19:49)
[2019-06-23] MEDS ORDERED: GLUCAGON FOR INJ 1 MG VIAL SQ PRN (19:49)
[2019-06-23] MEDS ORDERED: BENZONATATE 100 MG CAPSULE PO PRN (19:49)
[2019-06-23] MEDS ORDERED: ACETAMINOPHEN 325 MG TAB PO PRN (19:49)
[2019-06-23] MEDS ORDERED: DEXTROSE 50% 50 ML SYRINGE IV PRN (19:49)
[2019-06-23] MEDS ORDERED: PHARMACY GLYCEMIC MGMT CONSULT PRN (20:30)
[2019-06-23] MEDS ORDERED: SUCRALFATE 1 GM TAB PO SCH (21:00)
[2019-06-23] MEDS ORDERED: INSULIN DETEMIR SQ SCH (21:00)
[2019-06-23] MEDS: BUMETANIDE 1 MG TAB PO SCH (21:34)
[2019-06-23] MEDS: GABAPENTIN 100 MG CAP PO SCH (21:36)
[2019-06-23] MEDS: HydrALAZINE TAB 50 MG TAB PO SCH (21:36)
[2019-06-23] MEDS: LABETALOL HCL 200 MG TAB PO SCH (21:37)
[2019-06-23] MEDS: ROSUVASTATIN CALCIUM 20 MG TAB PO SCH (21:37)
[2019-06-23] MEDS: FERROUS SULFATE 325 MG TAB PO SCH (21:38)
[2019-06-23] MEDS: TAMSULOSIN HCL 0.4 MG CAP PO SCH (21:38)
[2019-06-23] MEDS: AMLODIPINE BESYLATE 5 MG TAB PO SCH (21:39)
[2019-06-23] MEDS: PANTOprazole 40 MG TAB PO SCH (21:39)
[2019-06-23] MEDS: DOXYCYCLINE HYCLATE 100 MG CAP PO SCH (21:49)
[2019-06-23] MEDS: INSULIN ASPART 100 UNITS/ML 3 ML PEN SC SCH (21:50)
--- NOTE | 2019-06-23 21:50 | Emergency Department Note ---
Entered by Estrella Ramos acting as a scribe for Nahum Perales MD History of Present Illness General Chief complaint: Shortness of Breath/Dyspnea Time Seen by Provider: 06/23/19 13:32 Source: patient History of Present Illness Provider complaint: Shortness of Breath/Dyspnea Onset (ago): day(s) 1 Location: chest Relieved By: + none Exacerbated By: + none Associated symptoms: + denies other symptoms (Visual changes); no chest pain, no nausea/vomiting and no weakness The patient is a 79 year old male who presents to the Emergency Room with complaints of shortness of breath/dyspnea that began this morning during hemodialysis. The patient's family is concerned that they did not get enough fluid off of him. The patient states that his symptoms are not relieved nor exacerbated by anything specific. The patient denies experiencing any chest pain, visual changes, nausea/vomiting, or weakness. The patient notes that he has COPD but does not use inhalers for it. Home Medications Home Medications Medication Instructions Recorded Confirmed Type tamsulosin 0.4 mg PO HS #90 cap 01/02/19 06/23/19 Rx docusate sodium 100 mg capsule 200 mg PO QAM #30 cap 01/19/19 06/23/19 Rx gabapentin 100 mg capsule 200 mg PO HS #60 cap 02/04/19 06/23/19 Rx levothyroxine 200 mcg PO QAM 02/15/19 06/23/19 History Boost Glucose Control 1 ea PO TIDM 03/18/19 06/23/19 History insulin detemir U-100 100 unit/mL 15 units SUBCUT HS ml 03/25/19 06/23/19 History subcutaneous solution rosuvastatin 20 mg PO HS 04/07/19 06/23/19 History levothyroxine 75 mcg PO QAM 04/24/19 06/23/19 History pantoprazole 40 mg PO BID 04/25/19 06/23/19 History Renal Caps 1 cap PO QDL 05/23/19 06/23/19 History bumetanide 1 mg tablet 1 mg PO BID #60 tab 06/02/19 06/23/19 Rx calcium acetate 667 mg tablet 2,001 mg PO TIDM tab 06/02/19 06/23/19 History darbepoetin rasheed in polysorbat 60 60 mcg SUBCUT .COMPLEX #4 ml 06/02/19 06/23/19 Rx mcg/mL in polysorbate injection ferrous sulfate 325 mg (65 mg 325 mg PO BID #60 tab 06/02/19 06/23/19 Rx iron) tablet,delayed release hydralazine 25 mg tablet 50 mg PO Q8H tab 06/02/19 06/23/19 History insulin aspart U-100 [Novolog See Rx Instructions .ROUTE .COMPLEX 06/06/19 06/23/19 History U-100 Insulin aspart] labetalol 200 mg PO BID 06/06/19 06/23/19 History amlodipine 10 mg PO HS 06/13/19 06/23/19 History sucralfate 1 g PO QID 06/13/19 06/23/19 History benzonatate [Tessalon Perles] 100 mg PO TID PRN #30 cap 06/14/19 06/23/19 Rx doxycycline hyclate 100 mg tablet 100 mg PO BID 10 Days #20 tab 06/15/19 06/23/19 Rx doxazosin [Cardura] 1 mg PO QAM 06/23/19 06/23/19 History lisinopril 40 mg PO QAM 06/23/19 06/23/19 History Allergies Allergy/AdvReac Type Severity Reaction Status Date / Time sucralfate [From Carafate] Allergy Mild upset Verified 06/23/19 13:54 dialysis tramadol AdvReac Severe disorented Verified 06/23/19 13:54 ,falling down metformin AdvReac Intermediate CONFUSION Verified 06/23/19 13:54 Past Med/Surg History Medical History Acute blood loss anemia Anxiety Arthritis Asthma AVF (arteriovenous fistula) left arm BPH (benign prostatic hyperplasia) CAD (coronary artery disease) Chronic diastolic congestive heart failure Chronic kidney disease, stage IV (severe) dialysis - [facility], sat at [place] follow with dr herrera Colon, diverticulosis 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, with long-term current use of insulin COPD (chronic obstructive pulmonary disease) Depression Diabetic peripheral neuropathy 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) (Acute) GERD (gastroesophageal reflux disease) Hearing difficulty Hyperlipidemia LDL goal <70 Hypertension Hypnic jerks Hypothyroidism Memory loss Mitral regurgitation Obstructive sleep apnea uses oxygen 2 l nc at hs Pulmonary hypertension Secondary hyperparathyroidism of renal origin Uncontrolled daytime somnolence sleeps thru day and cant sleep at [facility] Surgical History H/O cardiac catheterization many years ago - over 10 years no stents follow with trung H/O esophagogastroduodenoscopy 02/16/19 and 03/2019 [facility]- Dr. Mando White. 50mg propofol, no issues. H/O hemorrhoidectomy History of esophagogastroduodenoscopy (EGD) x 2 at [facility] during admission from 05/23/19-05/30/19 Hx of cholecystectomy Family History Unknown Myocardial infarction Diabetes Mother Diabetes Gallbladder disease Hypertension Breast cancer late 70s Father Diabetes Hypertension Brother Diabetes Hypertension Kidney disease Social History Preferred Language: Danish Communication Ability: Effective Visual Impairment: No Limitations Hearing Ability: Hard of Hearing Stock Mixer Required: No Beliefs That Will Affect Care: None marital status: Current Living Situation: Spouse current occupational status: disabled current occupation: works part-time at [employer] Feels Safe at Home: Yes Smoking Status: Former smoker Tobacco Type: cigarettes ; Second Hand Exposure: No ; Hx Alcohol Use: No Hx Substance Use: No Childhood Exposure to Second-Hand Smoke: No Other Diet Comment: regular caffeine: Yes during the past year weight has: remained stable Dental Care, Regularly: Yes Physical Activity Frequency: Does not Exercise Physical Activity Frequency Comment: limited due physical condition Seatbelt Use: sometimes Sunscreen Use: No Review of Systems See HPI for pertinent positives & negatives. and A total of 10 systems reviewed and were otherwise negative Physical Exam Vital Signs Vital Signs - 24 hr 06/23/19 13:22 06/23/19 13:26 06/23/19 13:30 Temperature 37.0 C Temperature Source Oral Pulse Rate 67 75 66 Pulse Rate [Left Finger] Pulse Rate from SpO2 Sensor 63 65 62 Respiratory Rate 20 17 19 Respiratory Effort / Characteristics Blood Pressure 144/60 H 144/60 H Blood Pressure Mean 88 88 Blood Pressure Position Pulse Oximetry 91 91 90 Oxygen Delivery Method Room Air Sepsis Recent Fever Within 48 Hours No Sepsis Action Taken by Nursing No Action Required 06/23/19 14:00 06/23/19 14:06 06/23/19 14:08 Temperature Temperature Source Pulse Rate 68 Pulse Rate [Left Finger] 67 Pulse Rate from SpO2 Sensor Respiratory Rate 20 14 Respiratory Effort / Characteristics Non-Labored Blood Pressure Blood Pressure Mean Blood Pressure Position Pulse Oximetry 92 91 Oxygen Delivery Method Room Air Room Air Sepsis Recent Fever Within 48 Hours Sepsis Action Taken by Nursing 06/23/19 14:30 06/23/19 15:00 06/23/19 15:44 Temperature Temperature Source Pulse Rate 71 69 64 Pulse Rate [Left Finger] Pulse Rate from SpO2 Sensor Respiratory Rate 19 22 18 Respiratory Effort / Characteristics Blood Pressure Blood Pressure Mean Blood Pressure Position Pulse Oximetry Oxygen Delivery Method Sepsis Recent Fever Within 48 Hours Sepsis Action Taken by Nursing 06/23/19 15:46 06/23/19 15:50 06/23/19 16:00 Temperature Temperature Source Pulse Rate 64 66 64 Pulse Rate [Left Finger] Pulse Rate from SpO2 Sensor Respiratory Rate 19 18 21 Respiratory Effort / Characteristics Blood Pressure 158/64 H 140/56 L Blood Pressure Mean 114 92 Blood Pressure Position Pulse Oximetry Oxygen Delivery Method Sepsis Recent Fever Within 48 Hours Sepsis Action Taken by Nursing 06/23/19 16:01 06/23/19 16:10 06/23/19 16:20 Temperature Temperature Source Pulse Rate 63 63 65 Pulse Rate [Left Finger] Pulse Rate from SpO2 Sensor Respiratory Rate 20 20 19 Respiratory Effort / Characteristics Blood Pressure Blood Pressure Mean Blood Pressure Position Pulse Oximetry Oxygen Delivery Method Sepsis Recent Fever Within 48 Hours Sepsis Action Taken by Nursing 06/23/19 16:30 06/23/19 16:31 06/23/19 16:40 Temperature Temperature Source Pulse Rate 65 64 64 Pulse Rate [Left Finger] Pulse Rate from SpO2 Sensor Respiratory Rate 20 19 19 Respiratory Effort / Characteristics Blood Pressure 156/55 H Blood Pressure Mean 116 Blood Pressure Position Pulse Oximetry Oxygen Delivery Method Sepsis Recent Fever Within 48 Hours Sepsis Action Taken by Nursing 06/23/19 16:50 06/23/19 17:00 06/23/19 17:01 Temperature Temperature Source Pulse Rate 73 63 64 Pulse Rate [Left Finger] Pulse Rate from SpO2 Sensor Respiratory Rate 21 19 19 Respiratory Effort / Characteristics Blood Pressure 153/69 H Blood Pressure Mean 112 Blood Pressure Position Pulse Oximetry Oxygen Delivery Method Sepsis Recent Fever Within 48 Hours Sepsis Action Taken by Nursing 06/23/19 17:10 06/23/19 17:20 06/23/19 17:48 Temperature Temperature Source Pulse Rate 62 63 64 Pulse Rate [Left Finger] Pulse Rate from SpO2 Sensor Respiratory Rate 18 15 16 Respiratory Effort / Characteristics Blood Pressure Blood Pressure Mean Blood Pressure Position Pulse Oximetry Oxygen Delivery Method Sepsis Recent Fever Within 48 Hours Sepsis Action Taken by Nursing 06/23/19 17:49 06/23/19 17:51 06/23/19 17:56 Temperature 37.3 C Temperature Source Oral Pulse Rate 64 61 65 Pulse Rate [Left Finger] Pulse Rate from SpO2 Sensor 63 61 Respiratory Rate 19 19 20 Respiratory Effort / Characteristics Blood Pressure 160/82 H 160/82 H 166/68 H Blood Pressure Mean 114 108 109 Blood Pressure Position Sitting Pulse Oximetry 94 93 Oxygen Delivery Method Sepsis Recent Fever Within 48 Hours Sepsis Action Taken by Nursing 06/23/19 17:57 06/23/19 18:00 06/23/19 18:01 Temperature 37.2 C Temperature Source Pulse Rate 66 66 67 Pulse Rate [Left Finger] Pulse Rate from SpO2 Sensor Respiratory Rate 19 16 19 Respiratory Effort / Characteristics Blood Pressure 155/58 H Blood Pressure Mean 106 Blood Pressure Position Pulse Oximetry 95 Oxygen Delivery Method Room Air Sepsis Recent Fever Within 48 Hours Sepsis Action Taken by Nursing 06/23/19 18:02 06/23/19 18:05 06/23/19 18:06 Temperature 37.2 C Temperature Source Pulse Rate 66 67 65 Pulse Rate [Left Finger] Pulse Rate from SpO2 Sensor Respiratory Rate 18 21 20 Respiratory Effort / Characteristics Blood Pressure 146/58 H Blood Pressure Mean 99 Blood Pressure Position Pulse Oximetry Oxygen Delivery Method Sepsis Recent Fever Within 48 Hours Sepsis Action Taken by Nursing 06/23/19 18:07 06/23/19 18:10 06/23/19 18:11 Temperature 37 C 37.1 C Temperature Source Oral Pulse Rate 65 63 63 Pulse Rate [Left Finger] Pulse Rate from SpO2 Sensor 63 64 Respiratory Rate 17 19 17 Respiratory Effort / Characteristics Blood Pressure 146/58 H 160/59 H Blood Pressure Mean 87 94 Blood Pressure Position Pulse Oximetry 96 95 96 Oxygen Delivery Method Sepsis Recent Fever Within 48 Hours Sepsis Action Taken by Nursing GENERAL: Awake, alert, chronically ill-appearing, in no distress HENT: Normocephalic, atraumatic. Oropharynx unremarkable. Mucous membranes dry. EYES: Normal conjunctiva. Sclera non-icteric. NECK: Supple. No nuchal rigidity. FROM. No JVD. RESPIRATORY: CTAB. CARDIAC: Regular rate, normal rhythm. Extremities warm and well perfused. Pulses equal. ABDOMEN: Soft, non-distended. No tenderness to palpation. No rebound or guarding. No masses. RECTAL: Deferred. MUSCULOSKELETAL: Chest examination reveals no tenderness. The back is symmetrical on inspection without obvious abnormality. There is no CVA tenderness to palpation. No joint edema. LOWER EXTREMITIES: Calves are equal size bilaterally and non-tender. Scant LE edema. No discoloration. NEURO: Normal sensorium. No sensory or motor deficits noted. SKIN: No rash or jaundice noted. Course Course 1347: Past medical records reviewed. The patient was seen and evaluated by the Resident Physician in room A11B at this time. History and physical were discussed with me. 1530: I spoke with Dr. Jimenez- Hospitalist about the patient's case and she will accept the patient for further evaluation. Administered Medications Discontinued Medications Albuterol (Duoneb) 3 ml NEB NOW STA Stop: 06/23/19 13:51 Last Admin: 06/23/19 14:06 Dose: 3 ml Documented by: [id number] Critical Care Time Critical Care Time: Yes Total Critical Care Time: 35 I have personally spent greater than 35 minutes of critical care time in the direct management of this patient. This includes bedside care, interpretation of diagnostic studies, and testing, discussion with consultants, patient, and family members, and other required patient management activities. This 35 minutes is in excess of all separately billable procedures. Medical Decision Making Differential Diagnosis Differential Diagnosis includes but is not limited to dehydration, stroke, anemia, hypoglycemia, hyponatremia, hypernatremia, urinary tract infection, pneumonia, bronchitis, sepsis, gastroenteritis, additional abdominal pathology, metabolic abnormalities and infections. Medical Records Attestation: I reviewed the patient's medical records. Home Medications Current Medication List: was personally reviewed by me Laboratory Data Attestation: I reviewed the patient's lab results. Result diagrams: 06/23/19 14:10 06/23/19 14:10 Lab Results 06/23/19 06/23/19 06/23/19 Range/Units 14:10 14:10 15:53 WBC 3.70 L (4.8-10.8) K/uL RBC 2.30 L (4.7-6.1) M/uL Hgb 7.1 L (14.0-18.0) g/dL Hct 22.1 L (42-52) % MCV 96.1 (80-100) fL MCH 30.9 (25-34) pg MCHC 32.1 (32-36) g/dL RDW Std Deviation 62.2 H (36.4-46.3) fL RDW Coeff of Jose C 18.0 H (11.5-14.5) % Plt Count 151 (130-400) K/uL MPV 9.5 (7.4-10.4) fL Immature Gran % (Auto) 0.3 % Neut % (Auto) 72.5 % Lymph % (Auto) 11.1 % [place] % (Auto) 10.5 % Eos % (Auto) 5.1 % Baso % (Auto) 0.5 % Immature Gran # (Auto) 0.01 (0.00-0.02) K/uL Neut # (Auto) 2.68 (1.4-6.5) K/uL Lymph # (Auto) 0.41 L (1.2-3.4) K/uL [place] # (Auto) 0.39 (0.11-0.59) K/uL Eos # (Auto) 0.19 (0-0.5) K/uL Baso # (Auto) 0.02 (0-0.2) K/uL Basophilic Stippling 1+ Anisocytosis Present Sodium 138 (136-145) mmol/L Potassium 3.1 L D (3.5-5.1) mmol/L Chloride 99 (98-107) mmol/L Carbon Dioxide 36 H (21-32) mmol/L Anion Gap 3.0 (3-11) BUN 32 H (7-18) mg/dl Creatinine 4.06 H D (0.6-1.4) mg/dl Est Cr Clr Drug Dosing 18.5 ml/min Est GFR ( Amer) 15.4 Est GFR (Non-Af Amer) 13.3 BUN/Creatinine Ratio 7.9 L (10-20) Glucose 187 H (70-99) mg/dl Calcium 8.3 L (8.5-10.1) mg/dl Total Bilirubin 0.4 (0.2-1) mg/dl AST 24 (15-37) U/L ALT 29 (12-78) U/L Alkaline Phosphatase 139 H (45-117) U/L Troponin I 0.052 H* (0-0.045) ng/ml Total Protein 5.9 L (6.4-8.2) gm/dl Albumin 2.6 L (3.4-5.0) gm/dl Globulin 3.3 (2.5-4.0) gm/dl Albumin/Globulin Ratio 0.8 L (0.9-2) Blood Type B Positive Antibody Screen NEGATIVE Crossmatch See Detail Imaging Data Radiologist's Impression: Radiology results as stated below per my review and the radiologist's interpretation: XR chest 1V portable HISTORY: Atypical Chest Pain COMPARISON: Chest 06/21/2019. FINDINGS: The heart remains mildly enlarged. No evidence for pulmonary edema. No pleural effusions. No pneumothorax. Slightly rotated study. Left basilar densi ties persist. The right lung is essentially clear. IMPRESSION: No significant change compared to the prior study. Stable cardiomegaly and left basilar densities suggesting atelectasis. ACT 112: Negative or not required by law. Electronically signed by: Jose C Jaeger M.D. 06/23/2019 2:10 PM ECG Data Indication: + SOB/dyspnea Rate (beats per minute): 68 Rhythm: + sinus rhythm ECG Intervals/blocks: + Right Bundle branch block, + Normal QRS (QRS 164) and + Normal QT-c (QTC 538) ECG Findings: + PACs and + Other (Aberrant conduction ) Blood Pressure Blood Pressure Findings: Elevated blood pressure Blood Pressure Disposition: further management by hospitalist BJ Moncada The patient is a pleasant 79-year-old gentleman with a past medical history of end-stage renal disease on dialysis, COPD, chronic anemia that is related to his renal disease but also related to history of AV gastric bleeding who presents emergency department with shortness of breath which occurred after his dialysis session today per HPI. On arrival the patient is chronically ill-appearing but no acute distress, afebrile stable vital signs. On exam the patient has diminished breath sounds at the bases but is otherwise clear. EKG without overt acute ischemia. Chest x-ray appears stable from prior. WBC 3.7, nonspecific and similar to prior. Platelets within normal limits. H/H7 0.1/22.1 which is decreased from several days ago when he was 7.7/24.6 and was transfused 1 unit of PRBCs. Chemistry without acidosis. Potassium 3.1. Creatinine 4 similar to prior values in the setting of end-stage renal disease. Troponin 0.05 similar to prior range of values with chronic elevation in the setting of end-stage renal disease. Given the patient's worsening anemia despite having had transfusion several days ago and in the setting of his value today being just after dialysis when he should be more hemoconcentrated reasonable admit the patient for additional blood transfusion and possible additional diagnostic evaluation. The patient denies any gross blood or black stools. Hemoccult stools were ordered. Patient was consented for blood and ordered for 2 units of PRBCs. Case was discussed by resident Dandre Jewell with Dr. Jimenez, [facility] [place], who evaluate the patient for admission. This patient was managed with the assistance of resident, Dr. Dandre Jewell. I discussed the case with the resident, examined the patient, and confirm the findings and plan as documented in this note. Impression & Plan Symptomatic anemia, End stage renal disease, SOB (shortness of breath), Elevated troponin Discharge Plan Visit Data *Final* Discharge Date/Time: 06/23/19 19:41 Chief Complaint: Shortness of Breath/Dyspnea ED Provider: Nahum Perales ED Midlevel Provider: Dandre Jewell Discharge Problem: Symptomatic anemia, End stage renal disease, SOB (shortness of breath), Elevated troponin Patient Disposition: Admitted As Inpatient Discharge Instructions Interventions: ED Discharge Assessment Last Done: 06/23/19 19:41 The scribe's documentation has been prepared under my direction and personally reviewed by me in its entirety. I confirm that the note above accurately reflects all work, treatment, procedures, and medical decision making performed by me.
[2019-06-23] MEDS ORDERED: SODIUM CHLORIDE 0.9% 250 ML IV PRN (22:23)
[2019-06-23] MEDS: INSULIN DETEMIR FLEXPEN/FLEX TOUCH 100 UNITS/ML 3ML SC SCH (22:24)
--- NOTE | 2019-06-23 23:07 | Electrocardiogram Report ---
Test Reason : Blood Pressure : / mmHG Vent. Rate : 068 BPM Atrial Rate : 104 BPM P-R Int : 206 ms QRS Dur : 164 ms QT Int : 506 ms P-R-T Axes : 083 087 -80 degrees QTc Int : 538 ms Sinus tachycardia with PACs Right bundle branch block T wave abnormality, consider inferolateral ischemia Abnormal ECG When compared with ECG of 21-JUN-2019 15:21, Premature atrial complexes are now Present Confirmed by Martin Daugherty ([id number]) on 06/23/2019 11:07:36 PM Referred By: REFERRED SELF Confirmed By:Martin Daugherty
[2019-06-24] MEDS: HydrALAZINE TAB 50 MG TAB PO SCH ×3 (06:12→21:15)
[2019-06-24] MEDS: DOXYCYCLINE HYCLATE 100 MG CAP PO SCH ×2 (06:12→17:28)
[2019-06-24] MEDS: LEVOTHYROXINE SODIUM 200 MCG TABLET PO SCH (06:14)
[2019-06-24] MEDS: LEVOTHYROXINE SODIUM 75 MCG TABLET PO SCH (06:14)
[2019-06-24 06:29] LABS: Basophils # (auto) 0.04 K/uL (0-0.2); Basophils % (auto) 1.2 %; Eosinophils # (auto) 0.25 K/uL (0-0.5); Eosinophils % (auto) 7.5 %; Hematocrit (blood only) 25.5 % (42-52); Hemoglobin 8.3 g/dL (14.0-18.0); Lymphocytes # (auto) 0.62 K/uL (1.2-3.4); Lymphocytes % (auto) 18.6 %; Mean Corpuscular Hemoglobin 30.3 pg (25-34); Mean Corpuscular Hgb Conc 32.5 g/dL (32-36); Mean Corpuscular Volume 93.1 fL (80-100); Mean Platelet Volume 10.3 fL (7.4-10.4); Neutrophils # (auto) 2.02 K/uL (1.4-6.5); Neutrophils % (auto) 60.7 %; Platelet Count 165 K/uL (130-400); RDW Coefficient of Variation 18.2 % (11.5-14.5); RDW Standard Deviation 59.9 fL (36.4-46.3); Red Blood Count 2.74 M/uL (4.7-6.1); Reticulocyte % 4.8 % (0.5-2.0); Reticulocytes # 0.13 10^6/uL (0.02-0.10); White Blood Count 3.33 K/uL (4.8-10.8)
[2019-06-24 07:15] LABS: Albumin Globulin Ratio 0.8 (0.9-2); Albumin Level 2.7 gm/dl (3.4-5.0); BUN Creatinine Ratio 8.4 (10-20); Bilirubin,Total 0.5 mg/dl (0.2-1); Calcium 8.3 mg/dl (8.5-10.1); Creatinine Clr Calc Pharmacy 13.1 ml/min; Est GFR (African American) 10.2; Est GFR (Non-African American) 8.8; Ferritin 121.1 ng/ml (8-388); Globulin 3.2 gm/dl (2.5-4.0); Potassium 3.1 mmol/L (3.5-5.1); Total Protein 5.9 gm/dl (6.4-8.2)
[2019-06-24 07:25] LABS: Estimated Average Glucose 103 mg/dl; Hemoglobin A1C 5.2 % (4.5-5.6)
[2019-06-24] MEDS ORDERED: [UNRECOGNIZED DRUG - OTHER] PO SCH (08:00)
[2019-06-24] MEDS: CALCIUM ACETATE 667 MG CAP PO SCH ×3 (08:12→17:29)
[2019-06-24] MEDS: lisinopriL 40 MG TAB PO SCH (08:13)
[2019-06-24] MEDS: DOXAZOSIN MESYLATE 1 MG TAB PO SCH (08:13)
[2019-06-24] MEDS: BUMETANIDE 1 MG TAB PO SCH ×2 (08:13→17:28)
[2019-06-24] MEDS: FERROUS SULFATE 325 MG TAB PO SCH ×2 (08:13→21:11)
[2019-06-24] MEDS: INSULIN ASPART 100 UNITS/ML 3 ML PEN SC SCH ×4 (08:13→21:12)
[2019-06-24] MEDS: DOCUSATE SODIUM 100 MG CAP PO SCH (08:13)
[2019-06-24] MEDS: LABETALOL HCL 200 MG TAB PO SCH ×2 (08:13→21:14)
[2019-06-24 08:43] LABS: Folate (Folic Acid) 14.69 ng/ml (>5.38)
[2019-06-24] MEDS: PANTOprazole 40 MG TAB PO SCH ×2 (08:46→21:15)
--- NOTE | 2019-06-24 09:47 | Nephrology Consultation ---
Date of Consultation June 24, 2019 Assessment & Plan (1) ESRD (end stage renal disease) on dialysis: -- ESRD. On IHD TTS at [facility] (4hr 2K 2.5Ca F-200NR EDW 97.5 kg - primary Faculty Support Coordinator Dr. Briceno) -- Volume status and electrolyte balance are acceptable. No acute indication for HD today -- Will schedule heparin free HD for am (2) Anemia: -- Patient transfused 2 U PRBC last night. Currently denies dyspnea -- Reports melanotic stool but remains on oral iron therapy -- Awaiting iron results -- Suspect ongoing GI blood loss. Consider consultation w/ GI (3) GAVE (gastric antral vascular ectasia): History of Present Illness Reason for Consultation: ESRD Attending Physician: Raphael Kemp, History of Present Illness Mr. Mcintyre is a 79 year old white male who is seen at the request of Dr. Kemp to provide inpatient HD and assist w/ medical management. Medical records in the EMR were reviewed today and are summarized as follows: Mr. Mcintyre has ESRD due to diabetic nephropathy. He has been on IHD since 12/16 ([facility] [place] TTS 4hr 2K 2.5Ca F-200NR EDW 97.5 kg - primary Faculty Support Coordinator Dr. Briceno). His medical history is significant for HTN, AODM, vascular dementia, IgG monoclonal gammopathy, EFREN, BPH, hypothyroidism, and CHF w/ diastolic dysfunction. Mr. Mcintyre has required several recent hospitalizations due to anemia and weakness. EGD revealed vascular ectasis of the gastric antrum. Cauterization was provided but melena recurred. Mr. Mcintyre was hospitalized 05/21 due to GI bleeding. [place] [facility] He required EGD x2 for cauterization of gastric AVM's and transfusion w/ 8 units PRBC. Mr. Mcintyre was hospitalized 06/13 - 06/14 for emergency HD due to CHF related to missed outpatient treatments. He was seen in the ED 06/21/19 for evaluation of weakness. Evaluation revealed Hgb 7.7. Mr. Mcintyre declined admission but did receive one unit PRBC. Yesterday Mr. Mcintyre completed his outpatient HD as prescribed. Following treatment he became progressively weak and suffered CONNER. He presented to the ED where he was found to be hemodynamically stable. CXR was clear. O2 sat was 94% on RA. Hbg returned low at 7.1. Admission was advised for blood transfusion and inpatient HD if needed Allergies Allergy/AdvReac Type Severity Reaction Status Date / Time sucralfate [From Carafate] Allergy Mild upset Verified 06/23/19 13:54 dialysis tramadol AdvReac Severe disorented Verified 06/23/19 13:54 ,falling down metformin AdvReac Intermediate CONFUSION Verified 06/23/19 13:54 Home Medications Home Medications Medication Instructions Recorded Confirmed Type tamsulosin 0.4 mg PO HS #90 cap 01/02/19 06/23/19 Rx docusate sodium 100 mg capsule 200 mg PO QAM #30 cap 01/19/19 06/23/19 Rx gabapentin 100 mg capsule 200 mg PO HS #60 cap 02/04/19 06/23/19 Rx levothyroxine 200 mcg PO QAM 02/15/19 06/23/19 History Boost Glucose Control 1 ea PO TIDM 03/18/19 06/23/19 History insulin detemir U-100 100 unit/mL 15 units SUBCUT HS ml 03/25/19 06/23/19 History subcutaneous solution rosuvastatin 20 mg PO HS 04/07/19 06/23/19 History levothyroxine 75 mcg PO QAM 04/24/19 06/23/19 History pantoprazole 40 mg PO BID 04/25/19 06/23/19 History Renal Caps 1 cap PO QDL 05/23/19 06/23/19 History bumetanide 1 mg tablet 1 mg PO BID #60 tab 06/02/19 06/23/19 Rx calcium acetate 667 mg tablet 2,001 mg PO TIDM tab 06/02/19 06/23/19 History darbepoetin rasheed in polysorbat 60 60 mcg SUBCUT .COMPLEX #4 ml 06/02/19 06/23/19 Rx mcg/mL in polysorbate injection ferrous sulfate 325 mg (65 mg 325 mg PO BID #60 tab 06/02/19 06/23/19 Rx iron) tablet,delayed release hydralazine 25 mg tablet 50 mg PO Q8H tab 06/02/19 06/23/19 History insulin aspart U-100 [Novolog See Rx Instructions .ROUTE .COMPLEX 06/06/19 06/23/19 History U-100 Insulin aspart] labetalol 200 mg PO BID 06/06/19 06/23/19 History amlodipine 10 mg PO HS 06/13/19 06/23/19 History sucralfate 1 g PO QID 06/13/19 06/23/19 History benzonatate [Tessalon Perles] 100 mg PO TID PRN #30 cap 06/14/19 06/23/19 Rx doxycycline hyclate 100 mg tablet 100 mg PO BID 10 Days #20 tab 06/15/19 06/23/19 Rx doxazosin [Cardura] 1 mg PO QAM 06/23/19 06/23/19 History lisinopril 40 mg PO QAM 06/23/19 06/23/19 History Patient History Medical History Acute blood loss anemia Anxiety Arthritis Asthma AVF (arteriovenous fistula) left arm BPH (benign prostatic hyperplasia) CAD (coronary artery disease) Chronic diastolic congestive heart failure Chronic kidney disease, stage IV (severe) dialysis - [facility], sat at [place] follow with dr herrera Colon, diverticulosis 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, with long-term current use of insulin COPD (chronic obstructive pulmonary disease) Depression Diabetic peripheral neuropathy 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) (Acute) GERD (gastroesophageal reflux disease) Hearing difficulty Hyperlipidemia LDL goal <70 Hypertension Hypnic jerks Hypothyroidism Memory loss Mitral regurgitation Obstructive sleep apnea uses oxygen 2 l nc at Pulmonary hypertension Secondary hyperparathyroidism of renal origin Uncontrolled daytime somnolence sleeps thru day and cant sleep at [facility] Surgical History H/O cardiac catheterization many years ago - over 10 years no stents follow with trung H/O esophagogastroduodenoscopy 02/16/19 and 03/2019 [facility]- Dr. Mando White. 50mg propofol, no issues. H/O hemorrhoidectomy History of esophagogastroduodenoscopy (EGD) x 2 at [facility] during admission from 05/23/19-05/30/19 Hx of cholecystectomy Family History Unknown Myocardial infarction Diabetes Mother Diabetes Gallbladder disease Hypertension Breast cancer late 70s Father Diabetes Hypertension Brother Diabetes Hypertension Kidney disease Social History Preferred Language: Urdu Communication Ability: Effective Visual Impairment: No Limitations Hearing Ability: Hard of Hearing Senior Risk Manager Required: No Beliefs That Will Affect Care: None marital status: Current Living Situation: Spouse current occupational status: disabled current occupation: works part-time at [employer] Feels Safe at Home: Yes Smoking Status: Former smoker Tobacco Type: cigarettes ; Second Hand Exposure: No ; Hx Alcohol Use: No Hx Substance Use: No Childhood Exposure to Second-Hand Smoke: No Other Diet Comment: regular caffeine: Yes during the past year weight has: remained stable Dental Care, Regularly: Yes Physical Activity Frequency: Does not Exercise Physical Activity Frequency Comment: limited due physical condition Seatbelt Use: sometimes Sunscreen Use: No Review of Systems Constitutional: no fever, no chills and no weakness Eyes: no worsening vision and no problem reported Ear, Nose, Mouth, Throat: no problem reported Respiratory: no cough and no dyspnea Cardiovascular: no chest pain, no palpitations and no edema Gastrointestinal: + melena; no abdominal pain, no nausea, no vomiting and no diarrhea/loose stools Genitourinary: no dysuria, no urinary hesitancy and no hematuria Musculoskeletal: no back pain Integumentary: no rash Neurologic: no falls, no dizziness and no confusion Physical Exam Constitutional: + ill appearing; not in distress Eyes: PERRL, conjunctivae normal, anicteric sclerae ENMT: external ear and nose normal, oropharynx normal Neck: trachea midline, no thyromegaly Respiratory: normal respiratory effort, lungs clear to auscultation Cardiovascular: RRR, no murmur, no edema Extremities: + AV fistula (+ bruit) Gastrointestinal (Abdomen): normal bowel sounds, soft, nontender, no hepatosplenomegaly Musculoskeletal: Extremities: no cyanosis Skin: no rashes, warm and dry Neurologic: awake; not confused Results & Data Vital Signs (Past 12 Hours) Vital Signs Temp Pulse Pulse Resp BP BP Pulse Ox 06/24/19 08:00 68 06/24/19 07:41 36.7 C 60 16 161/70 H 94 06/24/19 01:44 36.9 C 60 16 156/74 H 95 06/24/19 00:43 36.8 C 60 16 187/77 H 95 06/24/19 00:39 60 06/23/19 23:43 36.4 C L 62 18 176/69 H 91 06/23/19 23:25 66 06/23/19 23:17 36.5 C 60 18 177/73 H 96 06/23/19 23:13 36.5 C 60 18 177/75 H 96 06/23/19 22:58 36.3 C L 60 18 168/71 H 94 06/23/19 22:37 36.6 C 62 20 181/64 H 95 Laboratory Results Laboratory Tests 06/24/19 06/24/19 05:51 05:51 WBC 3.33 L Hgb 8.3 L Hct 25.5 L Plt Count 165 Sodium 139 Potassium 3.1 L Chloride 101 Carbon Dioxide 32 BUN 48 H Creatinine 5.71 H* D Glucose 144 H PG Care Time/CCT Total # of Minutes Spent Total Time Spent with Patient: Total time spent is greater than 50% in coordination of care (as documented) at patient's floor/unit and/or counseling patient: (1) Anemia Anemia type: unspecified type Qualified Code(s): D64.9 - Anemia, unspecified
[2019-06-24] MEDS: NEPHROCAPS PO SCH (12:20)
--- NOTE | 2019-06-24 14:15 | Hospitalist Progress Note ---
Date of Service June 24, 2019 Assessment & Plan (1) Symptomatic anemia: recurrent issue for the past few months patient feels great today, Hb up to 8.3 from 7.1 he has had numerous admissions and transfusions over past few weeks no plans for endoscopy, can eat discussed with Dr. White, can set up for capsule endoscopy as outpatient to look at small bowel the idea of scheduled transfusions has been discussed in the past repeat Hb in the morning (2) End stage chronic kidney disease: Patient should continue following his schedule Saturday/Saturday/Saturday Placed consult for nephrology Dr Busby wrote orders for HD tomorrow (3) Elevated troponin: Patient has chronically elevated troponin, Part of it is due to poor clearance related to end-stage renal disease. Patient does not have any chest pain (4) GAVE (gastric antral vascular ectasia): Continue pantoprazole 40 mg p.o. twice daily stools are dark but formed, no signs of liquid melena, doubt active bleeding stop Carafate as he had issues with aluminum toxicity in the past with his ESRD (5) Cirrhosis: AST ALT stable (6) Diabetes: Continue Accu-Cheks before meals and at bedtime, continue insulin detemir two thirds of the home dose while patient is in the hospital. Sliding scale insulin, glycemic control per pharmacy. monitor for hypoglycemia (7) Hyperlipidemia LDL goal <70: Continue rosuvastatin 20 mg p.o. nightly (8) Hypertension: Stable, continue labetalol 200 mg p.o. twice daily, hydralazine 50 mg p.o. nightly, bumetanide 1 mg p.o. twice daily. (9) Hypothyroidism: Continue levothyroxine 200 MCG's p.o. every morning. Subjective patient feeling great today, more energy after blood transfusion says he still has dark stools but they are formed, no liquid melena he takes the iron supplement which could explain the color no vomiting, eating well discussed with Dr. Busby, plan for HD tomorrow discussed with Dr. White, will arrange for follow up for capsule endoscopy, no need for EGD at this time reviewed labs, Hb up to 8.3 from 7.1 on admission Review of Systems Review of Systems: All systems reviewed & are unremarkable except as noted in HPI & below Respiratory: no cough and no dyspnea Cardiovascular: no chest pain and no edema Gastrointestinal: no abdominal pain, no nausea, no vomiting, no constipation, no diarrhea/loose stools and no blood in stools Physical Exam Constitutional: WD/WN, vitals as above Eyes: PERRL, conjunctivae normal, anicteric sclerae ENMT: external ear and nose normal, oropharynx normal Neck: trachea midline, no thyromegaly Respiratory: normal respiratory effort, lungs clear to auscultation Cardiovascular: RRR, no murmur, no edema Gastrointestinal (Abdomen): normal bowel sounds, soft, nontender, no hepatosplenomegaly Musculoskeletal: no cyanosis or clubbing, extremities motor strength 5/5 Skin: no rashes, warm and dry Neurologic: patellar DTR's 2+ bilat, sensation intact and PERRL, EOMI, accommodation nl, no face palsy, no dysarthria Psychiatric: A+Ox3, euthymic affect Lymphatic: no cervical or axillary lymphadenopathy Results & Data Vital Signs (Past 12 Hours) Vital Signs Temp Pulse Pulse Resp BP Pulse Ox 06/24/19 11:29 36.5 C 57 L 18 168/72 H 91 06/24/19 08:00 68 06/24/19 07:41 36.7 C 60 16 161/70 H 94 Laboratory Results Laboratory Results - last 24 hr 06/23/19 06/23/19 06/23/19 14:10 14:10 15:53 WBC 3.70 L RBC 2.30 L Hgb 7.1 L Hct 22.1 L MCV 96.1 MCH 30.9 MCHC 32.1 RDW Std Deviation 62.2 H RDW Coeff of Jose C 18.0 H Plt Count 151 MPV 9.5 Immature Gran % (Auto) 0.3 Neut % (Auto) 72.5 Lymph % (Auto) 11.1 Sutton % (Auto) 10.5 Eos % (Auto) 5.1 Baso % (Auto) 0.5 Reticulocyte % (Auto) Immature Gran # (Auto) 0.01 Neut # (Auto) 2.68 Lymph # (Auto) 0.41 L Sutton # (Auto) 0.39 Eos # (Auto) 0.19 Baso # (Auto) 0.02 Reticulocyte # Basophilic Stippling 1+ Anisocytosis Present Sodium 138 Potassium 3.1 L D Chloride 99 Carbon Dioxide 36 H Anion Gap 3.0 BUN 32 H Creatinine 4.06 H D Est Cr Clr Drug Dosing 18.5 Est GFR ( Amer) 15.4 Est GFR (Non-Af Amer) 13.3 BUN/Creatinine Ratio 7.9 L Glucose 187 H POC Glucose Estimat Average Glucose Hemoglobin A1c Calcium 8.3 L Iron TIBC Ferritin Total Bilirubin 0.4 AST 24 ALT 29 Alkaline Phosphatase 139 H Troponin I 0.052 H* Total Protein 5.9 L Albumin 2.6 L Globulin 3.3 Albumin/Globulin Ratio 0.8 L Triglycerides Cholesterol LDL Cholesterol, Calc VLDL Cholesterol, Calc HDL Cholesterol Cholesterol/HDL Ratio Vitamin B12 Folate Blood Type B Positive Antibody Screen NEGATIVE Crossmatch See Detail 06/23/19 06/24/19 06/24/19 21:31 05:51 05:51 WBC 3.33 L RBC 2.74 L Hgb 8.3 L Hct 25.5 L MCV 93.1 MCH 30.3 MCHC 32.5 RDW Std Deviation 59.9 H RDW Coeff of Jose C 18.2 H Plt Count 165 MPV 10.3 Immature Gran % (Auto) 0.0 Neut % (Auto) 60.7 Lymph % (Auto) 18.6 Sutton % (Auto) 12.0 Eos % (Auto) 7.5 Baso % (Auto) 1.2 Reticulocyte % (Auto) 4.8 H Immature Gran # (Auto) 0.00 Neut # (Auto) 2.02 Lymph # (Auto) 0.62 L Sutton # (Auto) 0.40 Eos # (Auto) 0.25 Baso # (Auto) 0.04 Reticulocyte # 0.13 H Basophilic Stippling Anisocytosis Sodium 139 Potassium 3.1 L Chloride 101 Carbon Dioxide 32 Anion Gap 6.0 BUN 48 H Creatinine 5.71 H* D Est Cr Clr Drug Dosing 13.1 Est GFR ( Amer) 10.2 Est GFR (Non-Af Amer) 8.8 BUN/Creatinine Ratio 8.4 L Glucose 144 H POC Glucose 178 H Estimat Average Glucose Hemoglobin A1c Calcium 8.3 L Iron TIBC 235 L Ferritin 121.1 Total Bilirubin 0.5 AST 17 ALT 26 Alkaline Phosphatase 110 Troponin I Total Protein 5.9 L Albumin 2.7 L Globulin 3.2 Albumin/Globulin Ratio 0.8 L Triglycerides 97 Cholesterol 94 LDL Cholesterol, Calc 32 VLDL Cholesterol, Calc 19 HDL Cholesterol 43 Cholesterol/HDL Ratio 2 Vitamin B12 Folate Blood Type Antibody Screen Crossmatch 06/24/19 06/24/19 06/24/19 05:51 05:51 05:51 WBC RBC Hgb Hct MCV MCH MCHC RDW Std Deviation RDW Coeff of Jose C Plt Count MPV Immature Gran % (Auto) Neut % (Auto) Lymph % (Auto) Sutton % (Auto) Eos % (Auto) Baso % (Auto) Reticulocyte % (Auto) Immature Gran # (Auto) Neut # (Auto) Lymph # (Auto) Sutton # (Auto) Eos # (Auto) Baso # (Auto) Reticulocyte # Basophilic Stippling Anisocytosis Sodium Potassium Chloride Carbon Dioxide Anion Gap BUN Creatinine Est Cr Clr Drug Dosing Est GFR ( Amer) Est GFR (Non-Af Amer) BUN/Creatinine Ratio Glucose POC Glucose Estimat Average Glucose 103 Hemoglobin A1c 5.2 Calcium Iron 64 TIBC Ferritin Total Bilirubin AST ALT Alkaline Phosphatase Troponin I Total Protein Albumin Globulin Albumin/Globulin Ratio Triglycerides Cholesterol LDL Cholesterol, Calc VLDL Cholesterol, Calc HDL Cholesterol Cholesterol/HDL Ratio Vitamin B12 524 Folate 14.69 Blood Type Antibody Screen Crossmatch 06/24/19 06/24/19 07:53 11:50 WBC RBC Hgb Hct MCV MCH MCHC RDW Std Deviation RDW Coeff of Jose C Plt Count MPV Immature Gran % (Auto) Neut % (Auto) Lymph % (Auto) Sutton % (Auto) Eos % (Auto) Baso % (Auto) Reticulocyte % (Auto) Immature Gran # (Auto) Neut # (Auto) Lymph # (Auto) Sutton # (Auto) Eos # (Auto) Baso # (Auto) Reticulocyte # Basophilic Stippling Anisocytosis Sodium Potassium Chloride Carbon Dioxide Anion Gap BUN Creatinine Est Cr Clr Drug Dosing Est GFR ( Amer) Est GFR (Non-Af Amer) BUN/Creatinine Ratio Glucose POC Glucose 142 H 106 H Estimat Average Glucose Hemoglobin A1c Calcium Iron TIBC Ferritin Total Bilirubin AST ALT Alkaline Phosphatase Troponin I Total Protein Albumin Globulin Albumin/Globulin Ratio Triglycerides Cholesterol LDL Cholesterol, Calc VLDL Cholesterol, Calc HDL Cholesterol Cholesterol/HDL Ratio Vitamin B12 Folate Blood Type Antibody Screen Crossmatch Medications Administered Current Inpatient Medications Acetaminophen (Tylenol) 650 mg PO Q4H PRN PRN Reason: Pain or Fever Stop: 07/23/19 19:48 Amlodipine Besylate (Norvasc) 10 mg PO HS [facility] Stop: 07/23/19 20:59 Last Admin: 06/23/19 21:39 Dose: 10 mg Documented by: Benzonatate (Tessalon Perle) 100 mg PO TID PRN PRN Reason: cough Stop: 07/23/19 19:48 Bumetanide (Bumex) 1 mg PO BID17 [facility] Stop: 07/23/19 20:59 Last Admin: 06/24/19 08:13 Dose: 1 mg Documented by: Calcium Acetate (Phoslo) 2,001 mg PO TIDM [facility] Stop: 07/24/19 07:59 Last Admin: 06/24/19 12:20 Dose: 2,001 mg Documented by: Dextrose (Dextrose 50%) 25 - 50 ml IV UD PRN; Protocol PRN Reason: Hypoglycemia Protocol Stop: 07/23/19 19:48 Docusate Sodium (Colace) 200 mg PO QAM [facility] Stop: 07/24/19 08:59 Last Admin: 06/24/19 08:13 Dose: 200 mg Documented by: Doxazosin Mesylate (Cardura) 1 mg PO QAM [facility] Stop: 07/24/19 08:59 Last Admin: 06/24/19 08:13 Dose: 1 mg Documented by: Doxycycline Hyclate (Vibramycin) 100 mg PO BID@0600,1800 [facility] Stop: 06/25/19 06:01 Last Admin: 06/24/19 06:12 Dose: 100 mg Documented by: Epoetin Zheng (Procrit) 10,000 units IV TODAY@0700 [facility] Stop: 06/25/19 18:00 Ferrous Sulfate (Feosol) 325 mg PO BID [facility] Stop: 07/23/19 20:59 Last Admin: 06/24/19 08:13 Dose: 325 mg Documented by: Gabapentin (Neurontin) 200 mg PO HS [facility] Stop: 07/23/19 20:59 Last Admin: 06/23/19 21:36 Dose: 200 mg Documented by: Glucagon (Glucagen) 1 mg SQ UD PRN; Protocol PRN Reason: Hypoglycemia Protocol Stop: 07/23/19 19:48 Glucose (Dex4 Glucose) 4 - 8 tabs PO UD PRN; Protocol PRN Reason: Hypoglycemia Protocol Stop: 07/23/19 19:48 Glucose (Glucose 40%) 15 - 30 gm PO UD PRN; Protocol PRN Reason: Hypoglycemia Protocol Stop: 07/23/19 19:48 Hydralazine HCl (Apresoline) 50 mg PO Q8H [facility] Stop: 07/23/19 21:59 Last Admin: 06/24/19 12:20 Dose: 50 mg Documented by: Sodium Chloride (Nss 1000ml) 1,000 mls @ 0 mls/hr IV .Q0M PRN PRN Reason: For Hemodialysis Use ONLY Stop: 06/25/19 12:59 Insulin Aspart (Novolog Flexpen) 0 units SC ACHS [facility] Stop: 07/23/19 20:59 Last Admin: 06/24/19 12:20 Dose: 3 units Documented by: Insulin Detemir (Levemir Flextouch) 7 units SC HS [facility] Stop: 07/23/19 22:29 Last Admin: 06/23/19 22:24 Dose: 7 units Documented by: Labetalol HCl (Normodyne) 200 mg PO BID [facility] Stop: 07/23/19 20:59 Last Admin: 06/24/19 08:13 Dose: 200 mg Documented by: Levothyroxine Sodium (Synthroid) 200 mcg PO DAILYBB [facility] Stop: 07/24/19 06:29 Last Admin: 06/24/19 06:14 Dose: 200 mcg Documented by: Levothyroxine Sodium (Synthroid) 75 mcg PO DAILYBB [facility] Stop: 07/24/19 06:29 Last Admin: 06/24/19 06:14 Dose: 75 mcg Documented by: Lisinopril (Zestril) 40 mg PO QAM [facility] Stop: 07/24/19 08:59 Last Admin: 06/24/19 08:13 Dose: 40 mg Documented by: Miscellaneous (Carbohydrates For Hypoglycemia) 15 - 30 gm PO UD PRN PRN Reason: Hypoglycemia Protocol Stop: 07/23/19 19:48 Miscellaneous (No Heparin In Dialysis) 1 ea N/A ONE ONE Stop: 06/25/19 07:01 Miscellaneous Information (Consult Glycemic Management Pharmacy) 1 ea N/A UD PRN; Protocol PRN Reason: Consult Stop: 07/23/19 20:29 Pantoprazole Sodium (Protonix) 40 mg PO BID [facility] Stop: 07/23/19 20:59 Last Admin: 06/24/19 08:46 Dose: 40 mg Documented by: Polyethylene Glycol (Miralax Powder Packet) 17 gm PO DAILY PRN PRN Reason: Constipation Stop: 07/23/19 19:48 Rosuvastatin Calcium (Crestor) 20 mg PO [facility] Stop: 07/23/19 20:59 Last Admin: 06/23/19 21:37 Dose: 20 mg Documented by: Tamsulosin HCl (Flomax) 0.4 mg PO HS [facility] Stop: 07/23/19 20:59 Last Admin: 06/23/19 21:38 Dose: 0.4 mg Documented by: Vitamin B Complex/Folic Acid (Nephrocaps) 1 cap PO QDL [facility] Stop: 07/24/19 11:29 Last Admin: 06/24/19 12:20 Dose: 1 cap Documented by: PG Care Time/CCT Total # of Minutes Spent Total Time Spent with Patient: Total time spent is greater than 50% in coordination of care (as documented) at patient's floor/unit and/or counseling patient: (1) Cirrhosis Ascites presence: unspecified Hepatic cirrhosis type: unspecified hepatic cirrhosis Qualified Code(s): K74.60 - Unspecified cirrhosis of liver (2) Diabetes Diabetes mellitus type: type 2 Diabetes mellitus jail insulin use: with jail use Diabetes mellitus complication status: with kidney complications Diabetes mellitus complication detail: with chronic kidney disease Chronic kidney disease stage: on chronic dialysis Qualified Code(s): E11.22 - 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
--- NOTE | 2019-06-24 14:57 | Pharmacy Report ---
Glycemic Control Consultation - Date of Service June 24, 2019 - Scope Scope: Glycemic Pharmacist consulted by Dr Jimenez on 06/23 for glycemic control and to write orders per [facility] inpatient glycemic control protocol - Objective Weight: 96.6 kg Accuchecks BSG (last 24hrs): 06/23/19 06/24/19 06/24/19 21:31 05:51 07:53 Glucose 144 H POC Glucose 178 H 142 H 06/24/19 11:50 Glucose POC Glucose 106 H Laboratory Data (last 24hrs): 06/24/19 05:51 Potassium 3.1 L Carbon Dioxide 32 Anion Gap 6.0 Creatinine 5.71 H* D Est Cr Clr Drug Dosing 13.1 HbA1c: Hemoglobin A1c 5.2 % (4.5-5.6) 06/24/19 05:51 - Recent Pertinent Medications Outpatient Anti-diabetic Regimen: * Levemir 15 units hs/novolog ssi * A1c = 5.2 % 06/24/19 Risk Factors for Insulin Resistance: * Diet: T2DM - Assessment & Plan Assessment & Plan: ASSESSMENT: * 79 year old male admitted with shortness of breath and anemia. Patient also with CKD on hemodialysis at home. * Pharmacy consulted for glycemic management. Patient known to our service from prior admissions. * Will utilize basal/bolus dosing similar to other admissions. Typically patient does require less insulin while inpatient. PLAN FOR INPATIENT GLYCEMIC CONTROL: * Basal insulin * Levemir 7 units HS * Bolus insulin * NovoLog per scale ACHS or Q6hrs while NPO * Goal Range: Low 120 mg/dL - High 150 mg/dL * Correction Factor: 30 mg/dL/unit * Nutritional / Prandial insulin per carb ratio of 1 unit per 12 grams CHO consumed * Please note that the plan above was derived based on current level of insulin resistance and hospital stress. These recommendations are appropriate for inpatient admission only. Plan of care upon discharge will need to be reassessed to avoid potential outpatient hypo/hyperglycemia. Thank you.
[2019-06-24] MEDS: TAMSULOSIN HCL 0.4 MG CAP PO SCH (21:11)
[2019-06-24] MEDS: INSULIN DETEMIR FLEXPEN/FLEX TOUCH 100 UNITS/ML 3ML SC SCH (21:12)
[2019-06-24] MEDS: GABAPENTIN 100 MG CAP PO SCH (21:14)
[2019-06-24] MEDS: AMLODIPINE BESYLATE 5 MG TAB PO SCH (21:14)
[2019-06-24] MEDS: ROSUVASTATIN CALCIUM 20 MG TAB PO SCH (21:15)
[2019-06-25] MEDS: LEVOTHYROXINE SODIUM 75 MCG TABLET PO SCH (06:11)
[2019-06-25] MEDS: LEVOTHYROXINE SODIUM 200 MCG TABLET PO SCH (06:11)
[2019-06-25] MEDS: DOXYCYCLINE HYCLATE 100 MG CAP PO SCH (06:12)
[2019-06-25] MEDS ORDERED: EPOETIN ALFA 10,000 UNITS/ML VIAL IV SCH (07:00)
[2019-06-25] MEDS ORDERED: SODIUM CHLORIDE 0.9% 1000ML 1,000 ML IV PRN (07:00)
[2019-06-25 07:29] LABS: Basophils # (auto) 0.05 K/uL (0-0.2); Basophils % (auto) 1.4 %; Eosinophils % (auto) 8.2 %; Hematocrit (blood only) 25.1 % (42-52); Hemoglobin 8.1 g/dL (14.0-18.0); Lymphocytes # (auto) 0.62 K/uL (1.2-3.4); Lymphocytes % (auto) 16.9 %; Mean Corpuscular Hemoglobin 30.6 pg (25-34); Mean Corpuscular Hgb Conc 32.3 g/dL (32-36); Mean Corpuscular Volume 94.7 fL (80-100); Mean Platelet Volume 10.6 fL (7.4-10.4); Monocytes # (auto) 0.38 K/uL (0.11-0.59); Monocytes % (auto) 10.4 %; Neutrophils # (auto) 2.32 K/uL (1.4-6.5); Neutrophils % (auto) 63.1 %; Platelet Count 162 K/uL (130-400); RDW Coefficient of Variation 18.5 % (11.5-14.5); RDW Standard Deviation 60.9 fL (36.4-46.3); Red Blood Count 2.65 M/uL (4.7-6.1); White Blood Count 3.67 K/uL (4.8-10.8)
[2019-06-25] MEDS: CALCIUM ACETATE 667 MG CAP PO SCH ×2 (07:33→14:19)
[2019-06-25] MEDS: FERROUS SULFATE 325 MG TAB PO SCH (07:34)
[2019-06-25] MEDS: PANTOprazole 40 MG TAB PO SCH (07:34)
[2019-06-25 08:15] LABS: BUN Creatinine Ratio 8.7 (10-20); Calcium 9.3 mg/dl (8.5-10.1); Creatinine Clr Calc Pharmacy 9.6 ml/min; Potassium 3.4 mmol/L (3.5-5.1)
[2019-06-25] MEDS: INSULIN ASPART 100 UNITS/ML 3 ML PEN SC SCH ×2 (08:47→14:02)
[2019-06-25] MEDS: HydrALAZINE TAB 50 MG TAB PO SCH ×2 (09:00→14:58)
--- NOTE | 2019-06-25 09:52 | Nephrology Progress Note ---
Date of Service June 25, 2019 Assessment & Plan (1) ESRD (end stage renal disease) on dialysis: -- ESRD. On IHD TTS at [facility] (4hr 2K 2.5Ca F-200NR EDW 97.5 kg - primary Health Researcher Dr. Briceno) -- Will provide heparin free HD today and attempt 2 L UF (2) Anemia: -- Patient transfused 2 U PRBC this hospitalization. Hgb has only improved 1g -- Reports melanotic stool but remains on oral iron therapy -- Iron saturation 23% -- Suspect ongoing GI blood loss. Consider consultation w/ GI to develop POC (3) GAVE (gastric antral vascular ectasia): Subjective Mr. Mcintyre was seen & examined in his hospital room this morning. He denies abdominal pain or overt blood loss but notes that his stool is dark due to oral iron therapy. Despite transfusion w/ 2 u PRBC this hospitalization Hgb has only risen 1g from 7.1 to 8.1. Review of Systems Constitutional: no fever Eyes: no worsening vision and no problem reported Ear, Nose, Mouth, Throat: no problem reported Respiratory: no cough and no dyspnea Cardiovascular: no chest pain, no palpitations and no edema Gastrointestinal: no abdominal pain, no nausea, no vomiting and no diarrhea/loose stools Genitourinary: no dysuria, no urinary hesitancy and no hematuria Musculoskeletal: no back pain Integumentary: no rash Neurologic: no falls, no dizziness and no confusion Physical Exam Constitutional: + ill appearing; not in distress Eyes: PERRL, conjunctivae normal, anicteric sclerae ENMT: external ear and nose normal, oropharynx normal Neck: trachea midline, no thyromegaly Respiratory: normal respiratory effort, lungs clear to auscultation Cardiovascular: RRR, no murmur, no edema Extremities: + AV fistula (+ bruit) Gastrointestinal (Abdomen): normal bowel sounds, soft, nontender, no hepatosplenomegaly Musculoskeletal: Extremities: no cyanosis Skin: no rashes, warm and dry Neurologic: awake; not confused Results & Data Vital Signs (Past 12 Hours) Vital Signs Temp Pulse Pulse Pulse Resp BP BP 06/25/19 09:40 52 L 153/60 H 06/25/19 09:20 74 146/74 H 06/25/19 09:11 36.6 C 60 60 138/66 06/25/19 07:58 36.8 C 56 L 20 184/70 H 06/25/19 04:00 36.8 C 60 20 160/74 H 06/25/19 00:24 66 06/24/19 23:55 37.0 C 65 16 168/71 H Pulse Ox 06/25/19 09:40 06/25/19 09:20 06/25/19 09:11 06/25/19 07:58 95 06/25/19 04:00 90 06/25/19 00:24 06/24/19 23:55 90 Laboratory Results Laboratory Tests 06/25/19 06/25/19 06:58 06:58 WBC 3.67 L Hgb 8.1 L Hct 25.1 L Plt Count 162 Sodium 139 Potassium 3.4 L Chloride 102 Carbon Dioxide 31 BUN 67 H Creatinine 7.82 H* D Glucose 149 H PG Care Time/CCT Total # of Minutes Spent Total Time Spent with Patient: Total time spent is greater than 50% in coordination of care (as documented) at patient's floor/unit and/or counseling patient: (1) Anemia Anemia type: unspecified type Qualified Code(s): D64.9 - Anemia, unspecified
--- NOTE | 2019-06-25 10:08 | Pharmacy Report ---
Pharmacy Glycemic Short Note 2 - Date of Service June 25, 2019 - Glycemic Short BSG Results (Last 24 hours): 06/24/19 06/24/19 06/24/19 07:53 11:50 16:38 Glucose POC Glucose 142 H 106 H 154 H 06/24/19 06/25/19 06/25/19 20:33 06:58 07:35 Glucose 149 H POC Glucose 200 H 156 H OUTPATIENT ANTIDIABETIC REGIMEN: * Levemir 15 units hs/novolog ssi * A1c = 5.2 % 06/24/19 ASSESSMENT: * 79 year old male admitted with shortness of breath and anemia. Patient also with ESRD on HD. * Patient received 22 units of insulin yesterday with decent glycemic control * Fasting BSG 156 mg/dL this morning. Will slightly increase Levemir. * Post prandial BSGs increase throughout the day - will tighten carb coverage PLAN FOR INPATIENT GLYCEMIC CONTROL: * Basal insulin - increase * Levemir 8 units HS * Bolus insulin - tighten carb coverage * NovoLog per scale ACHS or Q6hrs while NPO * Goal Range: Low 120 mg/dL - High 150 mg/dL * Correction Factor: 30 mg/dL/unit * Nutritional / Prandial insulin per carb ratio of 1 unit per 10 grams CHO consumed * Please note that the plan above was derived based on current level of insulin resistance and hospital stress. These recommendations are appropriate for inpatient admission only. Plan of care upon discharge will need to be reassessed to avoid potential outpatient hypo/hyperglycemia. PLAN FOR DISCHARGE: * Patient's A1c = 5.2% * However, this result is likely somewhat unreliable in ESRD patients d/t interactions between the A1c analyzing technique and high levels of urea in ESRD, reduced RBC life span, iron deficiency anemia, and EPO administration. HbA1c > 7.5% in ESRD patient may overestimate the extent of hyperglycemia in ESRD patients. * Recommend continuation of home regimen unless patient reports frequent hypoglycemia at home. Titrate insulin per outpatient provider based on BSG monitoring.
[2019-06-25] MEDS: DOCUSATE SODIUM 100 MG CAP PO SCH (13:58)
[2019-06-25] MEDS: BUMETANIDE 1 MG TAB PO SCH (13:58)
[2019-06-25] MEDS: DOXAZOSIN MESYLATE 1 MG TAB PO SCH (13:59)
[2019-06-25] MEDS: LABETALOL HCL 200 MG TAB PO SCH (13:59)
[2019-06-25] MEDS: lisinopriL 40 MG TAB PO SCH (14:00)
[2019-06-25] MEDS: NEPHROCAPS PO SCH (14:00)
--- NOTE | 2019-06-25 14:45 | Discharge Summary ---
Date of Service June 25, 2019 Admission HPI Per Admitting Provider The patient is a 79 years old male with past medical history of COPD, asthma, hypertension, hypothyroidism, benign prostatic hypertrophy, coronary artery disease, pulmonary hypertension, end-stage renal disease, obstructive sleep apnea, IgG monoclonal gammopathy, hearing difficulties, diabetes mellitus type 2 with diabetic peripheral neuropathy, depression who was brought to the emergency room with a complaint of worsening shortness of breath that started earlier today. Patient who was present in the room states that patient regularly receives dialysis on Saturday, Saturday and Saturday for end-stage renal disease. Patient had treatment today and he goes to [place], [place]. Patient usually needs 2 L of supplemental oxygen at home at night. In the past several days patient had difficulties walking in the bathroom due to shortness of breath. Patient felt some discomfort and a productive cough. Patient was coughing up clear mucus. Patient was placed by his Dr. Wang and doxycycline for his productive cough. She denies fever, chills, chest pain,, abdominal pain, frequency, urgency. Patient has history of liver cirrhosis and anemia. He received multiple blood transfusions in the past at [facility] the last one was 2 weeks ago. EKG shows sinus tachycardia with a second-degree AV block Mobitz 2. T wave abnormality considering inferolateral ischemia. This is different than the EKG recorded previously on June 21, 2019. Labs are reviewed: Sodium 138, potassium 3.1, chloride 99, BUN 32, creatinine 4.06, GFR 13.3,AST 24, ALT 29, alkaline phosphatase 139, troponin 0.0 52. Total protein 5.9, albumin 2.6, globulin 3.3. Urine yellow trace glucose, 2+ proteins, leukocyte Estrace trace, urine WBCs 5-10, epithelial cells 20-30, urine yeast present. Chest x-ray is no significant change compared to the previous study. Stable cardiomegaly and left base basilar density suggesting atelectasis. Decision was made to admit patient to [facility] on telemetry for severe anemia with shortness of breath and to transfuse 2 units of blood. Principal Diagnosis Symptomatic anemia Discharge Exam Constitutional WD/WN, vitals as above Eyes PERRL, conjunctivae normal, anicteric sclerae ENMT external ear and nose normal, oropharynx normal Neck trachea midline, no thyromegaly Respiratory normal respiratory effort, lungs clear to auscultation Cardiovascular RRR, no murmur, no edema Gastrointestinal (Abdomen) normal bowel sounds, soft, nontender, no hepatosplenomegaly Musculoskeletal no cyanosis or clubbing, extremities motor strength 5/5 Skin no rashes, warm and dry Neurologic patellar DTR's 2+ bilat, sensation intact and PERRL, EOMI, accommodation nl, no face palsy, no dysarthria Psychiatric A+Ox3, euthymic affect Lymphatic no cervical or axillary lymphadenopathy Discharge Data Allergies Allergy/AdvReac Type Severity Reaction Status Date / Time sucralfate [From Carafate] Allergy Mild upset Verified 06/23/19 13:54 dialysis tramadol AdvReac Severe disorented Verified 06/23/19 13:54 ,falling down metformin AdvReac Intermediate CONFUSION Verified 06/23/19 13:54 Consultations 06/23/19 16:07 ED Decision to Admit Stat 06/23/19 19:49 Consult Nephrology Routine Hospital Course (1) Symptomatic anemia: recurrent issue for the past few months patient feels great after transfusion, Hb stable, > 8 he has had numerous admissions and transfusions over past few weeks no plans for endoscopy, can eat discussed with Dr. White, can set up for capsule endoscopy as outpatient to look at small bowel as source of blood loss the idea of scheduled transfusions has been discussed in the past would be benefitial to keep him out of the hospital continue Iron supplementation and EPO (2) End stage chronic kidney disease: Patient should continue following his schedule Saturday/Saturday/Saturday Placed consult for nephrology Dr Busby wrote orders for HD that was done the day of discharge (3) Elevated troponin: Patient has chronically elevated troponin, Part of it is due to poor clearance related to end-stage renal disease. Patient does not have any chest pain (4) GAVE (gastric antral vascular ectasia): Continue pantoprazole 40 mg p.o. twice daily stools are dark but formed, no signs of liquid melena, doubt active bleeding stop Carafate as he had issues with aluminum toxicity in the past with his ESRD (5) Cirrhosis: AST ALT stable (6) Diabetes: Continue Accu-Cheks before meals and at bedtime, continue insulin detemir two thirds of the home dose while patient is in the hospital. Sliding scale insulin, glycemic control per pharmacy. monitor for hypoglycemia, no episodes (7) Hyperlipidemia LDL goal <70: Continue rosuvastatin 20 mg p.o. nightly (8) Hypertension: Stable, continue labetalol 200 mg p.o. twice daily, hydralazine 50 mg p.o. nightly, bumetanide 1 mg p.o. twice daily. (9) Hypothyroidism: Continue levothyroxine 200 MCG's p.o. every morning. Total Time Total Time Spent Total Time Spent (In Minutes): 31 minutes Total Time Includes: Examination of the Patient, Discharge Planning, Medication Reconciliation and Communication With Other Providers (Dr. White, Dr. Busby) Discharge Plan Discharge Items Patient Disposition: Home - Home Health Services Reason For Visit: SOB, SEVERE ANEMIA Discharge Diagnosis: Anemia ESRD on HD Condition on Discharge: Good Goals: follow up with [facility] to perform capsule endoscopy continue Protonix twice a day to treat GAVE follow up Saturday for normally scheduled hemodialysis Activity: Resume your previous activity Non-emergency contact: Primary Care Provider, Plating Machine Operator and Lens Grinder Rough Call non-emergency contact if: you have any medication questions, your symptoms worsen, your pain is not controlled and you have a fever Follow-up/Referrals: Mahsa Wang, [Primary Care Provider] - 07/01/19 10:10 am (Please, follow up at Dr. Wang's office with her associate, Kirsty Antony PA-C, on SaturdayJuly 01 at 10:10 am. *If you need to change this appointment, call their office at [phone].) Diet: Carb Consistent or DM2 and Dialysis Renal Addtl Attending Provider Instructions: Medications: no changes Anemia, symptomatic Hb improved to 8.1, stable since transfusion continue to take Ferrous sulfate (iron) and get erythropoetin injections under direction of nephrology discussed with Dr. White, no need for repeat EGD please call his office at [phone] to schedule a time to come in for capsule endoscopy capsule endoscopy is a small capsule that you swallow, will take pictures of your entire GI tract to try to identify another source of blood loss should get routine hemoglobin checked at dialysis unit can always transfuse as needed with HD to stay out of the hospital ESRD on HD follow up with dialysis clinic on Saturday as normally scheduled Pending Studies at Discharge: No Stand-Alone Forms: My [facility], Smoking Cessation Medications and DC Order Prescriptions: Continued gabapentin 100 mg capsule 200 mg PO HS Qty: 60 RF: 5 calcium acetate 667 mg tablet 2,001 mg PO TIDM RF: 0 bumetanide 1 mg tablet 1 mg PO BID Qty: 60 RF: 2 hydralazine 25 mg tablet 50 mg PO Q8H RF: 0 darbepoetin rasheed in polysorbat 60 mcg/mL solution 60 mcg subcut .COMPLEX Qty: 4 RF: 0 docusate sodium 100 mg capsule 200 mg PO QAM Qty: 30 RF: 0 doxycycline hyclate 100 mg tablet 100 mg PO BID 10 Days Qty: 20 RF: 0 Levemir U-100 Insulin 100 unit/mL solution 15 units subcut HS RF: 0 Renal Caps 1 mg Capsule 1 cap PO QDL RF: 0 amlodipine 10 mg tablet 10 mg PO HS RF: 0 benzonatate [Tessalon Perles] 100 mg Capsule 100 mg PO TID PRN (Reason: cough) Qty: 30 RF: 0 doxazosin [Cardura] 1 mg tablet 1 mg PO QAM RF: 0 lisinopril 40 mg tablet 40 mg PO QAM RF: 0 tamsulosin 0.4 mg capsule 0.4 mg PO HS Qty: 90 RF: 1 levothyroxine 200 mcg tablet 200 mcg PO QAM RF: 0 levothyroxine 75 mcg tablet 75 mcg PO QAM RF: 0 Boost Glucose Control 0.06-1.1 gram-kcal/mL Liquid 1 ea PO TIDM RF: 0 rosuvastatin 20 mg tablet 20 mg PO HS RF: 0 pantoprazole 40 mg tablet,delayed release (DR/EC) 40 mg PO BID RF: 0 labetalol 200 mg Tablet 200 mg PO BID RF: 0 insulin aspart U-100 [Novolog U-100 Insulin aspart] 100 unit/mL solution See Rx Instructions .ROUTE .COMPLEX RF: 0 Discontinued sucralfate 1 gram tablet 1 g PO QID RF: 0 No Action ferrous sulfate 325 mg (65 mg iron) tablet,delayed release (DR/EC) 325 mg PO BID Qty: 60 RF: 1 Discharge Orders: Discharge Order (Routine); Ordered 06/25/19 Ordered By: Raphael Kemp Admission Data Admit Date/Time: 06/23/19 18:15 Attending Provider: Raphael Kemp Admit Provider: Elsie Jimenez Primary Care Provider: Mahsa Wang Other Providers: Elise Jimenez ; Eugene Busby Other Interventions: Discharge Summary Assessment (RN) Last Done: 06/25/19 16:01 DC Date/Time DO NOT enter until pt leaves facility: 06/25/19 16:46 Coding Level of Care Code D/C Day Management >30 mins Diagnoses Symptomatic anemia D64.9 End stage chronic kidney disease N18.6 Elevated troponin R79.89 GAVE (gastric antral vascular ectasia) K31.819 Cirrhosis K74.60 Ascites presence: unspecified Hepatic cirrhosis type: unspecified hepatic cirrhosis Diabetes E11.22; N18.6; Z79.4; Z99.2 Chronic kidney disease stage: on chronic dialysis Diabetes mellitus complication detail: with chronic kidney disease Diabetes mellitus complication status: with kidney complications 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
[2019-06-25] MEDS ORDERED: INSULIN DETEMIR FLEXPEN/FLEX TOUCH 100 UNITS/ML 3ML SC SCH (21:00)
--- NOTE | 2019-07-01 07:15 | Coding Query ---
ANEMIA To promote full compliance with coding requirements relating to patient care, physician participation is requested in all cases of podiatry doctor uncertainty. Please assist us with the question(s) below: Coding Question(s): The record reflects the following diagnoses: Symptomatic anemia GAVE ESRD Please specify the known or suspected type of anemia by placing an "X" within the parenthesis (x). If other, please document type. Examples are: ( ) Acute blood loss anemia (x ) Chronic blood loss anemia ( ) Anemia due to renal disease ( ) Anemia of chronic disease ( ) Aplastic anemia ( ) Iron deficient anemia ( ) Anemia, unspecified or other ( ) Other: (please specify) ( ) Unable to determine Thank you for your time, MIKAEL Santos, DOLL WIG [employer]KER [employer]
== END 2019-06-25 16:46 | disposition home health service (06) | DRG 377 ==
LOC: ED 13:13 → 2N 18:15 → SUATTDRO 18:15 → 2N 19:41

== ENCOUNTER 2019-07-19 12:45 | Inpatient (IN) ==
--- NOTE | 2019-07-19 13:40 | XRay Report ---
SINGLE VIEW CHEST CLINICAL HISTORY: Dyspnea. FINDINGS: 2 AP, portable, upright chest radiographs are compared to study dated 07/07/2019. Correlation is made with chest CT dated 10/31/2018. The examination is degraded by portable technique and patient rotation. The heart is enlarged noting atherosclerotic calcification of the thoracic aorta. There is mild pulmonary vascular congestion. Trace pleural effusions are suspected. There is bibasilar scarri ng/atelectasis. No airspace consolidation is seen typical for pneumonia. No pneumothorax is seen. The skeletal structures are osteopenic. The bony thorax is grossly intact. IMPRESSION: 1. Cardiomegaly with evidence of mild congestive failure. 2. Suspect trace pleural effusions. ACT 112: Negative or not required by law. Electronically signed by: Shayan Gonzalez M.D. 07/19/2019 1:39 PM
[2019-07-19 14:07] LABS: Basophils # (auto) 0.02 K/uL (0-0.2); Basophils % (auto) 0.5 %; Eosinophils # (auto) 0.34 K/uL (0-0.5); Eosinophils % (auto) 8.1 %; Hematocrit (blood only) 20.9 % (42-52); Hemoglobin 6.7 g/dL (14.0-18.0); INR 1.1 (0.9-1.1); Immature Granulocytes # (auto) 0.01 K/uL (0.00-0.02); Immature Granulocytes % (auto) 0.2 %; Lymphocytes # (auto) 0.51 K/uL (1.2-3.4); Lymphocytes % (auto) 12.1 %; Mean Corpuscular Hemoglobin 30.6 pg (25-34); Mean Corpuscular Hgb Conc 32.1 g/dL (32-36); Mean Corpuscular Volume 95.4 fL (80-100); Mean Platelet Volume 9.7 fL (7.4-10.4); Monocytes # (auto) 0.25 K/uL (0.11-0.59); Monocytes % (auto) 5.9 %; Neutrophils # (auto) 3.09 K/uL (1.4-6.5); Neutrophils % (auto) 73.2 %; Partial Thromboplastin Time 27.1 Seconds (21.0-31.0); Platelet Count 136 K/uL (130-400); Prothrombin Time 11.1 Seconds (9.0-12.0); RDW Coefficient of Variation 17.6 % (11.5-14.5); RDW Standard Deviation 61.8 fL (36.4-46.3); Red Blood Count 2.19 M/uL (4.7-6.1); White Blood Count 4.22 K/uL (4.8-10.8)
[2019-07-19] MEDS ORDERED: SODIUM CHLORIDE 0.9% 250 ML IV PRN ×2 (14:16→17:51)
[2019-07-19 14:19] LABS: Alanine Aminotransferase 23 U/L (12-78); Albumin Globulin Ratio 0.9 (0.9-2); Albumin Level 2.9 gm/dl (3.4-5.0); Alkaline Phosphatase 99 U/L (45-117); Aspartate Aminotransferase 14 U/L (15-37); BUN Creatinine Ratio 12.1 (10-20); Bilirubin,Total 0.5 mg/dl (0.2-1); Blood Urea Nitrogen 109 mg/dl (7-18); Calcium 8.7 mg/dl (8.5-10.1); Carbon Dioxide 31 mmol/L (21-32); Chloride 102 mmol/L (98-107); Est GFR (African American) 5.9; Est GFR (Non-African American) 5.1; Globulin 3.4 gm/dl (2.5-4.0); Glucose 199 mg/dl (70-99); Potassium 4.3 mmol/L (3.5-5.1); Sodium 141 mmol/L (136-145); Total Protein 6.3 gm/dl (6.4-8.2); Troponin I 0.032 ng/ml (0-0.045)
--- NOTE | 2019-07-19 15:55 | History & Physical Report ---
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 - Hgb 6.7 on admission; will transfuse 2 units to keep Hb above 9 given hx of CAD Leg pain with drop in blood count - Concern of PVD - patient not a candidate for cardiac cath (antiplatelet and anticoagulation contraindication due to ongoing bleeding) - will order arterial doppler, as it sounds like he has a component of PAD that becomes symptomatic when he is anemic (2) Gastric AV malformation: - Likely source of ongoing slow bleeding. - patient had two EGD's during May admission to [facility] (showed evidence of large gastric ulcer and AVMs which were cauterized with gold probe) - consult GI - Continue pantoprazole 40mg BID. (3) ESRD (end stage renal disease) on dialysis: - patient gets Tue, Thur, Sat dialysis; missed session on 07/18 - Cr 8.9 on admission, K at 4.2 - nephrology consult placed for arrangement of HD - typically gets EPO with dialysis (4) Pancreatic Lesion - 1.3 cm exophytic cystic lesion in the pancreatic tail visualized on A/P CT at [facility] on 07/26/18 - recommended consideration of contrast-enhanced MRI of abdomen for further consideration (5) Hypothyroidism: - continue home dose 300 mcg daily of levothyroxine. (6) Hypertension: - BP currently at 152/58 - Continue home regimen of labetalol, lisinopril, bumex, amlodipine and hydralazine. 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 - Well known to glycemic services here therefore will defer management to them unless significant hypo/hyperglycemia present (9) CAD (coronary artery disease): - Unable to take ASA due to ongoing GI bleeds. - Continue labetalol, lisinopril, rosuvastatin. (10) Secondary hyperparathyroidism of renal origin: - Continue vitamin D supplementation (11) Obstructive sleep apnea: - Unable to tolerate CPAP - ordered 2L O2 via [place] as prn overnight (12) BPH -continue home flomax Code: Full Dispo: Med/surg Diet: Dialysis DVT ppx: chemical contraindicated in setting of acute bleed; bilateral SCDs ordered History of Present Illness Primary Care Provider: Mahsa Wang DO Mr. Mcintyre is a medically complex 79 yo gentleman with a PMHx of GAVE syndrome with continued GI bleeds who presented to the ED with weakness, found to have hgb of 6.7. This is is 6th hospital admission in the past 2 months, and his second in the past two weeks for recurrent symptoms of anemia. His PMHx is also significant for ESRD, on hemodialysis , Sat, however he informs hospital team that he missed his dialysis on Saturday, 07/18 due to feeling ill. His potassium on admission was 4.2, Cr at 8.9. He is accompanied by his son and daughter, who expresses frustration over his repeated emergency department visits and hospital stays. He was given a standing order for H+H by [facility] GI specialist Dr. White for routine outpatient monitoring. Mr. Mcintyre attempted to get his H+H drawn at his dialysis facility, but was told by representatives that they were unable to process the request. He was seen in his primary care office on 07/17, at which time a standing order for H+H was placed, and plans were made for him to have this lab drawn at the [facility] lab every Saturday, along with q2wk transfusions at [facility]. However, due to his profound weakness, Mr. Mcintyre was unable to wait for routine blood draw tomorrow and came in to the ED for evaluation today. Of note, he had a video capsule endoscopy on 07/15 - report unable to be located Allergies Allergy/AdvReac Type Severity Reaction Status Date / Time sucralfate [From Carafate] Allergy Mild upset Verified 07/19/19 13:37 dialysis tramadol AdvReac Severe disorented Verified 07/19/19 13:37 ,falling down metformin AdvReac Intermediate CONFUSION Verified 07/19/19 13:37 Home Medications Home Medications Medication Instructions Recorded Confirmed Type tamsulosin 0.4 mg PO HS #90 cap 01/02/19 07/19/19 Rx docusate sodium 100 mg capsule 200 mg PO QAM #30 cap 01/19/19 07/19/19 Rx gabapentin 100 mg capsule 200 mg PO HS #60 cap 02/04/19 07/19/19 Rx levothyroxine 200 mcg PO QAM 02/15/19 07/19/19 History Boost Glucose Control 1 ea PO TIDM 03/18/19 07/19/19 History insulin detemir U-100 100 unit/mL 15 units SUBCUT HS ml 03/25/19 07/19/19 History subcutaneous solution rosuvastatin 20 mg PO HS 04/07/19 07/19/19 History pantoprazole 40 mg PO BID 04/25/19 07/19/19 History Renal Caps 1 cap PO QDL 05/23/19 07/19/19 History calcium acetate(phosphat bind) 667 2,001 mg PO TIDM tab 06/02/19 07/19/19 History mg tablet hydralazine 25 mg tablet 50 mg PO Q8H tab 06/02/19 07/19/19 History insulin aspart U-100 [Novolog 0 sliding scale dose SUBCUT 06/06/19 07/19/19 History U-100 Insulin aspart] USEASDIRECTD labetalol 200 mg PO BID 06/06/19 07/19/19 History amlodipine 10 mg PO HS 06/13/19 07/19/19 History doxazosin [Cardura] 1 mg PO QAM 06/23/19 07/19/19 History ferrous sulfate 325 mg (65 mg 325 mg PO BID #60 tab 06/26/19 07/19/19 Rx iron) tablet,delayed release cyanocobalamin 1,000 1 tab PO QDL 07/10/19 07/19/19 History mcg-salcaprozate sodium 100 mg tablet folic acid 1 mg tablet 1 mg PO QAM 07/10/19 07/19/19 History bumetanide 1 mg tablet 2 mg PO BID #120 tab 07/16/19 07/19/19 Rx darbepoetin rasheed in polysorbat 60 mcg SUBCUT USEASDIRECTD 07/19/19 07/19/19 History levothyroxine 100 mcg PO QAM 07/19/19 07/19/19 History Past Med/Surg History Medical History Acute blood loss anemia Anxiety Arthritis Asthma AVF (arteriovenous fistula) left arm BPH (benign prostatic hyperplasia) CAD (coronary artery disease) Chronic diastolic congestive heart failure Chronic kidney disease, stage IV (severe) dialysis - [facility], sat at [place] follow with dr herrera Colon, diverticulosis 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, with long-term current use of insulin COPD (chronic obstructive pulmonary disease) Depression Diabetic peripheral neuropathy 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) (Acute) GERD (gastroesophageal reflux disease) Hearing difficulty Hyperlipidemia LDL goal <70 Hypnic jerks Memory loss Mitral regurgitation Obstructive sleep apnea uses oxygen 2 l nc at Pulmonary hypertension Secondary hyperparathyroidism of renal origin Uncontrolled daytime somnolence sleeps thru day and cant sleep at [facility] Surgical History H/O cardiac catheterization many years ago - over 10 years no stents follow with trung H/O esophagogastroduodenoscopy 02/16/19 and 03/2019 [facility]- Dr. Mando White. 50mg propofol, no issues. H/O hemorrhoidectomy History of esophagogastroduodenoscopy (EGD) x 2 at [facility] during admission from 05/23/19-05/30/19 Hx of cholecystectomy Family History Unknown Myocardial infarction Diabetes Mother Diabetes Gallbladder disease Hypertension Breast cancer late 70s Father Diabetes Hypertension Brother Diabetes Hypertension Kidney disease Denies family history of Ovarian cancer Prostate cancer Lung cancer Colorectal cancer Social History Preferred Language: [place] Communication Ability: Effective Visual Impairment: No Limitations Hearing Ability: Hard of Hearing 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 Beliefs That Will Affect Care: None marital status: Current Living Situation: Spouse current occupational status: disabled current occupation: works part-time at [employer] Other Information That Helps Us Care for You: No Feels Safe at Home: Yes Safety Concerns: Feels Safe At This Time Smoking Status: Former smoker Tobacco Type: cigarettes ; Do You Dip or Chew Tobacco: No ; Number of Years Since Quit: 25 ; Second Hand Exposure: No ; Tobacco Cessation Education Requested by Patient: No Hx Alcohol Use: No Hx Substance Use: No Childhood Exposure to Second-Hand Smoke: No Diet Comment: regular caffeine: Yes during the past year weight has: remained stable Dental Care, Regularly: Yes Physical Activity Frequency: Does not Exercise Physical Activity Frequency Comment: limited due physical condition Seatbelt Use: sometimes Sunscreen Use: No Review of Systems Constitutional: + weakness Musculoskeletal: b/l lower leg pain Physical Exam Constitutional: WD/WN, vitals as above Eyes: + anicteric sclerae ENMT: external ear and nose normal, oropharynx normal Neck: normal visual inspection and trachea midline Respiratory: normal respiratory effort, lungs clear to auscultation Cardiovascular: RRR, no murmur, no edema Heart Sounds: normal S1 and normal S2 Extremities: + AV fistula (L arm for dialysis) Gastrointestinal (Abdomen): normal bowel sounds, soft, nontender, no hepatosplenomegaly Inspection/Auscultation: + abdomen distended Percussion/Palpation: + hernia (ventral) Skin: no rashes, warm and dry Psychiatric: A+Ox3, euthymic affect Results & Data Vital Signs (Past 12 Hours) Vital Signs Temp Pulse Pulse Resp BP BP Pulse Ox 07/19/19 13:51 60 24 152/58 H 93 07/19/19 12:58 36.4 C L 60 20 166/67 H 90 Supervising Physician Co-Signing Physician Notes Resident Physician Supervision Note: I independently interviewed and examined the patient and verified the mora history and physical, reviewed labs and image studies, discussed the case with the resident Dr. Olguin and agree with the findings and care plan. Resident Activity Tracking Resident Involvement: Resident Care Provided Care Provided: Adult Hospital Medicine
[2019-07-19] MEDS ORDERED: ACETAMINOPHEN 325 MG TAB PO PRN (17:36)
[2019-07-19] MEDS ORDERED: CARBOHYDRATES FOR HYPOGLYCEMIA PO PRN (17:36)
[2019-07-19] MEDS ORDERED: DEXTROSE 50% 50 ML SYRINGE IV PRN (17:36)
[2019-07-19] MEDS ORDERED: GLUCOSE 10 TABS/TUBE PO PRN (17:36)
[2019-07-19] MEDS ORDERED: GLUCAGON FOR INJ 1 MG VIAL SQ PRN (17:36)
[2019-07-19] MEDS ORDERED: [UNRECOGNIZED DRUG - OTHER] PO SCH (17:36)
[2019-07-19] MEDS ORDERED: GLUCOSE 40% GEL 15 GM TUBE PO PRN (17:36)
--- NOTE | 2019-07-19 18:04 | Emergency Department Note ---
Entered by Maya Jarrett acting as a scribe for History of Present Illness General Chief complaint: Shortness of Breath/Dyspnea Stated complaint: SHORT OF BREATH, LOW BLOOD Time Seen by Provider: 07/19/19 13:02 Source: patient Limitations: no limitations History of Present Illness Provider complaint: Shortness of breath and weakness Onset (ago): day(s) 1 Location: chest Pain Consistency: + constant Quality: + constant Associated symptoms: + shortness of breath, + weakness and + other (Positive: chronic black stool. Negative: cold symptoms, blood in urine, urinary burning ); no chest pain and no fever/chills The patient is a 79 year old male with past medical history of anemia, hypothyroidism, hypertension, diabetes, who presents to the ED with complaints of constant shortness of breath and weakness that started yesterday. The daughter reports the patient has been scoped 20 times. She notes he just had a camera swallow on Saturday which showed some very small bleeding in the small intestines. 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 White, is planning on performing endoscopy. The patient states he feels short of breath and very weak. He notes he gets dialysis 3 times a week but missed yesterday because he felt lousy. The patient reports he has chronic black stool and takes iron supplements. He denies chest pain, fever, cold symptoms, blood in urine, or urinary burning. Home Medications Home Medications Medication Instructions Recorded Confirmed Type tamsulosin 0.4 mg PO HS #90 cap 01/02/19 07/19/19 Rx docusate sodium 100 mg capsule 200 mg PO QAM #30 cap 01/19/19 07/19/19 Rx gabapentin 100 mg capsule 200 mg PO HS #60 cap 02/04/19 07/19/19 Rx levothyroxine 200 mcg PO QAM 02/15/19 07/19/19 History Boost Glucose Control 1 ea PO TIDM 03/18/19 07/19/19 History insulin detemir U-100 100 unit/mL 15 units SUBCUT HS ml 03/25/19 07/19/19 History subcutaneous solution rosuvastatin 20 mg PO HS 04/07/19 07/19/19 History pantoprazole 40 mg PO BID 04/25/19 07/19/19 History Renal Caps 1 cap PO QDL 05/23/19 07/19/19 History calcium acetate(phosphat bind) 667 2,001 mg PO TIDM tab 06/02/19 07/19/19 History mg tablet hydralazine 25 mg tablet 50 mg PO Q8H tab 06/02/19 07/19/19 History insulin aspart U-100 [Novolog 0 sliding scale dose SUBCUT 06/06/19 07/19/19 History U-100 Insulin aspart] USEASDIRECTD labetalol 200 mg PO BID 06/06/19 07/19/19 History amlodipine 10 mg PO HS 06/13/19 07/19/19 History doxazosin [Cardura] 1 mg PO QAM 06/23/19 07/19/19 History ferrous sulfate 325 mg (65 mg 325 mg PO BID #60 tab 06/26/19 07/19/19 Rx iron) tablet,delayed release cyanocobalamin 1,000 1 tab PO QDL 07/10/19 07/19/19 History mcg-salcaprozate sodium 100 mg tablet folic acid 1 mg tablet 1 mg PO QAM 07/10/19 07/19/19 History bumetanide 1 mg tablet 2 mg PO BID #120 tab 07/16/19 07/19/19 Rx darbepoetin rasheed in polysorbat 60 mcg SUBCUT USEASDIRECTD 07/19/19 07/19/19 History levothyroxine 100 mcg PO QAM 07/19/19 07/19/19 History Allergies Allergy/AdvReac Type Severity Reaction Status Date / Time sucralfate [From Carafate] Allergy Mild upset Verified 07/19/19 13:37 dialysis tramadol AdvReac Severe disorented Verified 07/19/19 13:37 ,falling down metformin AdvReac Intermediate CONFUSION Verified 07/19/19 13:37 Past Med/Surg History Medical History Acute blood loss anemia Anxiety Arthritis Asthma AVF (arteriovenous fistula) left arm BPH (benign prostatic hyperplasia) CAD (coronary artery disease) Chronic diastolic congestive heart failure Chronic kidney disease, stage IV (severe) dialysis - [facility], sat at [facility] follow with dr herrera Colon, diverticulosis 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, with long-term current use of insulin COPD (chronic obstructive pulmonary disease) Depression Diabetic peripheral neuropathy 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) (Acute) GERD (gastroesophageal reflux disease) Hearing difficulty Hyperlipidemia LDL goal <70 Hypnic jerks Memory loss Mitral regurgitation Obstructive sleep apnea uses oxygen 2 l nc at Pulmonary hypertension Secondary hyperparathyroidism of renal origin Uncontrolled daytime somnolence sleeps thru day and cant sleep at [facility] Surgical History H/O cardiac catheterization many years ago - over 10 years no stents follow with trung H/O esophagogastroduodenoscopy 02/16/19 and 03/2019 [facility]- Dr. Mando White. 50mg propofol, no issues. 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 Beliefs That Will Affect Care: None marital status: Current Living Situation: Spouse current occupational status: disabled current occupation: works part-time at [employer] Other Information That Helps Us Care for You: No Feels Safe at Home: Yes Safety Concerns: Feels Safe At This Time Smoking Status: Former smoker Tobacco Type: cigarettes ; Do You Dip or Chew Tobacco: No ; Number of Years Since Quit: 25 ; Second Hand Exposure: No ; Tobacco Cessation Education Requested by Patient: No Hx Alcohol Use: No Hx Substance Use: No Childhood Exposure to Second-Hand Smoke: No Diet Comment: regular caffeine: Yes during the past year weight has: remained stable Dental Care, Regularly: Yes Physical Activity Frequency: Does not Exercise Physical Activity Frequency Comment: limited due physical condition Seatbelt Use: sometimes Sunscreen Use: No Review of Systems See HPI for pertinent positives & negatives. and A total of 10 systems reviewed and were otherwise negative Physical Exam Vital Signs Vital Signs - 24 hr 07/19/19 12:58 07/19/19 13:46 07/19/19 13:49 Temperature 36.4 C L Temperature Source Oral Pulse Rate 60 60 Pulse Rate [Apical] Pulse Rate from SpO2 Sensor 60 Respiratory Rate 20 14 Blood Pressure 166/67 H 152/58 H Blood Pressure [Right Arm] Blood Pressure Mean 100 95 Blood Pressure Mean [Right Arm] Blood Pressure Position Sitting Pulse Oximetry 90 85 L Oxygen Delivery Method Room Air Room Air Sepsis Recent Fever Within 48 Hours No Sepsis New/Unexplained Change in Mental Status No Sepsis Action Taken by Nursing No Action Required 07/19/19 13:50 07/19/19 13:51 07/19/19 14:00 Temperature Temperature Source Pulse Rate 59 L 59 L Pulse Rate [Apical] 60 Pulse Rate from SpO2 Sensor Respiratory Rate 19 24 17 Blood Pressure Blood Pressure [Right Arm] 152/58 H Blood Pressure Mean Blood Pressure Mean [Right Arm] 89 Blood Pressure Position Pulse Oximetry 93 Oxygen Delivery Method Room Air Sepsis Recent Fever Within 48 Hours Sepsis New/Unexplained Change in Mental Status Sepsis Action Taken by Nursing 07/19/19 14:15 07/19/19 14:30 07/19/19 14:45 Temperature Temperature Source Pulse Rate 62 62 62 Pulse Rate [Apical] Pulse Rate from SpO2 Sensor Respiratory Rate 18 14 15 Blood Pressure Blood Pressure [Right Arm] Blood Pressure Mean Blood Pressure Mean [Right Arm] Blood Pressure Position Pulse Oximetry Oxygen Delivery Method Sepsis Recent Fever Within 48 Hours Sepsis New/Unexplained Change in Mental Status Sepsis Action Taken by Nursing 07/19/19 15:00 07/19/19 15:15 07/19/19 15:30 Temperature Temperature Source Pulse Rate 63 65 62 Pulse Rate [Apical] Pulse Rate from SpO2 Sensor Respiratory Rate 18 17 25 H Blood Pressure Blood Pressure [Right Arm] Blood Pressure Mean Blood Pressure Mean [Right Arm] Blood Pressure Position Pulse Oximetry Oxygen Delivery Method Sepsis Recent Fever Within 48 Hours Sepsis New/Unexplained Change in Mental Status Sepsis Action Taken by Nursing 07/19/19 15:45 Temperature Temperature Source Pulse Rate 63 Pulse Rate [Apical] Pulse Rate from SpO2 Sensor Respiratory Rate 15 Blood Pressure Blood Pressure [Right Arm] Blood Pressure Mean Blood Pressure Mean [Right Arm] Blood Pressure Position Pulse Oximetry Oxygen Delivery Method Sepsis Recent Fever Within 48 Hours Sepsis New/Unexplained Change in Mental Status Sepsis Action Taken by Nursing Constitutional: Vital signs reviewed. Eyes: Pupils are equal round reactive to light. Conjunctiva are noninjected. ENT: Pharynx is clear without erythema or exudate. Mucous membranes are moist. Neck supple without meningeal signs. Respiratory: Clear to auscultation bilaterally. Breath sounds are equal bilaterally. Cardiovascular: Regular rate and rhythm. No rubs or gallops. GI: Soft, nondistended and nontender. Bowel sounds are present. Musculoskeletal: No peripheral edema. No lower extremity tenderness. There is a fistula in the left wrist with palpable thrill. Integumentary: No cyanosis. Neurological: The patient is awake and alert. No focal deficits. Psychiatric: Normal affect. Course Course 1305: The patient was evaluated in room B2. A complete history and physical exam was performed. 1417: I checked on the patient and he signed consent for blood transfusion. The patient is eating and hemodynamically stable. 1427: I paged Nila Jansen for admission. 1504: I discussed the patients case with Dr. Cintron, [facility] Resident. The patient will be evaluated for further management by Dr. Rios, [facility] Hospitalist. Administered Medications Critical Care Time Total Critical Care Time: 35 I have personally spent 35 minutes of critical care time in the direct management of this patient. This includes bedside care, interpretation of diagnostic studies, and testing, discussion with consultants, patient, and family members, and other required patient management activities. These minutes are in excess of all separately billable procedures. Medical Decision Making Differential Diagnosis Differential Diagnosis: Anemia, pneumonia, hyperkalemia, hypovolemia, GI bleed Medical Records Attestation: I reviewed the patient's medical records. The patient was seen by his PCP 2 days ago and note to have a history of anemia. The patient was admitted in May for the same. He has gastric AVM. The patient was admitted 5 times since May for shortness of breath and anemia. His last hemoglobin was 10 on July 08. Home Medications Current Medication List: was personally reviewed by me Laboratory Data Attestation: I reviewed the patient's lab results. Result diagrams: 07/19/19 13:40 07/19/19 13:40 Lab Results 07/19/19 07/19/19 07/19/19 Range/Units 13:40 13:40 13:40 WBC 4.22 L (4.8-10.8) K/uL RBC 2.19 L (4.7-6.1) M/uL Hgb 6.7 L* (14.0-18.0) g/dL Hct 20.9 L* (42-52) % MCV 95.4 (80-100) fL MCH 30.6 (25-34) pg MCHC 32.1 (32-36) g/dL RDW Std Deviation 61.8 H (36.4-46.3) fL RDW Coeff of Jose C 17.6 H (11.5-14.5) % Plt Count 136 (130-400) K/uL MPV 9.7 (7.4-10.4) fL Immature Gran % (Auto) 0.2 % Neut % (Auto) 73.2 % Lymph % (Auto) 12.1 % [place] % (Auto) 5.9 % Eos % (Auto) 8.1 % Baso % (Auto) 0.5 % Immature Gran # (Auto) 0.01 (0.00-0.02) K/uL Neut # (Auto) 3.09 (1.4-6.5) K/uL Lymph # (Auto) 0.51 L (1.2-3.4) K/uL [place] # (Auto) 0.25 (0.11-0.59) K/uL Eos # (Auto) 0.34 (0-0.5) K/uL Baso # (Auto) 0.02 (0-0.2) K/uL PT 11.1 (9.0-12.0) Seconds INR 1.1 (0.9-1.1) APTT 27.1 (21.0-31.0) Seconds PTT Ratio 1.0 Sodium 141 (136-145) mmol/L Potassium 4.3 (3.5-5.1) mmol/L Chloride 102 (98-107) mmol/L Carbon Dioxide 31 (21-32) mmol/L Anion Gap 8.0 (3-11) BUN 109 H (7-18) mg/dl Creatinine 8.96 H* (0.6-1.4) mg/dl Est Cr Clr Drug Dosing Not Reportable Est GFR ( Amer) 5.9 Est GFR (Non-Af Amer) 5.1 BUN/Creatinine Ratio 12.1 (10-20) Glucose 199 H (70-99) mg/dl Calcium 8.7 (8.5-10.1) mg/dl Total Bilirubin 0.5 (0.2-1) mg/dl AST 14 L (15-37) U/L ALT 23 (12-78) U/L Alkaline Phosphatase 99 (45-117) U/L Troponin I 0.032 (0-0.045) ng/ml Total Protein 6.3 L (6.4-8.2) gm/dl Albumin 2.9 L (3.4-5.0) gm/dl Globulin 3.4 (2.5-4.0) gm/dl Albumin/Globulin Ratio 0.9 (0.9-2) Blood Type Antibody Screen Crossmatch 07/19/19 Range/Units 14:26 WBC (4.8-10.8) K/uL RBC (4.7-6.1) M/uL Hgb (14.0-18.0) g/dL Hct (42-52) % MCV (80-100) fL MCH (25-34) pg MCHC (32-36) g/dL RDW Std Deviation (36.4-46.3) fL RDW Coeff of Jose C (11.5-14.5) % Plt Count (130-400) K/uL MPV (7.4-10.4) fL Immature Gran % (Auto) % Neut % (Auto) % Lymph % (Auto) % [place] % (Auto) % Eos % (Auto) % Baso % (Auto) % Immature Gran # (Auto) (0.00-0.02) K/uL Neut # (Auto) (1.4-6.5) K/uL Lymph # (Auto) (1.2-3.4) K/uL [place] # (Auto) (0.11-0.59) K/uL Eos # (Auto) (0-0.5) K/uL Baso # (Auto) (0-0.2) K/uL PT (9.0-12.0) Seconds INR (0.9-1.1) APTT (21.0-31.0) Seconds PTT Ratio Sodium (136-145) mmol/L Potassium (3.5-5.1) mmol/L Chloride (98-107) mmol/L Carbon Dioxide (21-32) mmol/L Anion Gap (3-11) BUN (7-18) mg/dl Creatinine (0.6-1.4) mg/dl Est Cr Clr Drug Dosing Est GFR ( Amer) Est GFR (Non-Af Amer) BUN/Creatinine Ratio (10-20) Glucose (70-99) mg/dl Calcium (8.5-10.1) mg/dl Total Bilirubin (0.2-1) mg/dl AST (15-37) U/L ALT (12-78) U/L Alkaline Phosphatase (45-117) U/L Troponin I (0-0.045) ng/ml Total Protein (6.4-8.2) gm/dl Albumin (3.4-5.0) gm/dl Globulin (2.5-4.0) gm/dl Albumin/Globulin Ratio (0.9-2) Blood Type B Positive Antibody Screen NEGATIVE Crossmatch See Detail Imaging Data Radiologist's Impression: Radiology results as stated below per my review and the radiologist's interpretation: SINGLE VIEW CHEST CLINICAL HISTORY: Dyspnea. FINDINGS: 2 AP, portable, upright chest radiographs are compared to study dated 07/07/2019. Correlation is made with chest CT dated 10/31/2018. The examination is degraded by portable technique and patient rotation. The heart is enlarged notin g atherosclerotic calcification of the thoracic aorta. There is mild pulmonary vascular congestion. Trace pleural effusions are suspected. There is bibasilar scarring/atelectasis. No airspace consolidation is seen typical for pneumonia. No pneumothorax is seen. The skeletal structures are osteopenic. The bony thorax is grossly intact. IMPRESSION: 1. Cardiomegaly with evidence of mild congestive failure. 2. Suspect trace pleural effusions. ACT 112: Negative or not required by law. Electronically signed by: Shayan Gonzalez M.D. 07/19/2019 1:39 PM ECG Data Attestation: I personally reviewed and interpreted this ECG as follows: Indication: + SOB/dyspnea Rate (beats per minute): 60 Rhythm: + sinus rhythm ECG Intervals/blocks: + First degree AV block and + Right Bundle branch block ECG ST segments: no ST elevation Comparison ECG Date: from (07/07/2019) Change: no significant change Blood Pressure Blood Pressure Findings: Elevated blood pressure Blood Pressure Disposition: Referred to patients primary care provider [facility] Narrative I did evaluate the patient as noted above. The patient is presenting with shortness of breath and weakness. He states that he feels the same way when he is requiring a transfusion. He has had significant anemia and melena for some time. He feels he needs a transfusion today. He denies any chest pain. IV access was established. The patient was placed on a continuous cardiac cath technician. I did order and personally review the patient's 12-lead EKG as described above. Twelve-lead EKG shows a first-degree AV block and right bundle branch block. There is no change from prior EKG earlier this month. I did order and personally reviewed the images of the patient's chest x-ray as described above. He has mild evidence of CHF on chest x-ray. I did order and review the patient's blood work as noted in the electronic medical record. Hemoglobin is 6.7. Creatinine is 8.9 but his potassium is 4.3. I did obtain informed consent for transfusion. I did order 2 units of packed RBCs for transfusion. He remains hemodynamically stable. I did discuss the test results with him. I did discuss the case with the hospitalist and caser. Impression & Plan Symptomatic anemia, Leukopenia, GI bleed, ESRD (end stage renal disease) Discharge Plan Visit Data *Final* Discharge Date/Time: 07/19/19 17:17 Chief Complaint: Shortness of Breath/Dyspnea Stated Complaint: SHORT OF BREATH, LOW BLOOD ED Provider: Justo Rodriguez Discharge Problem: Symptomatic anemia, Leukopenia, GI bleed, ESRD (end stage renal disease) Patient Disposition: Admitted As Inpatient Discharge Instructions Interventions: ED Discharge Assessment Last Done: 07/19/19 17:17 Discharge Problem: Leukopenia Qualifiers: Leukopenia type: unspecified Qualified Code(s): D72.819 - Decreased white blood cell count, unspecified GI bleed Qualifiers: GI bleed type/associated pathology: unspecified gastrointestinal hemorrhage type Qualified Code(s): K92.2 - Gastrointestinal hemorrhage, unspecified The jack's documentation has been prepared under my direction and personally reviewed by me in its entirety. I confirm that the note above accurately reflects all work, treatment, procedures, and medical decision making performed by me.
[2019-07-19] MEDS: INSULIN ASPART 100 UNITS/ML 3 ML PEN SC SCH ×2 (18:53→21:30)
[2019-07-19] MEDS: BUMETANIDE 1 MG TAB PO SCH (18:54)
[2019-07-19] MEDS: HydrALAZINE TAB 50 MG TAB PO SCH ×2 (18:54→23:42)
[2019-07-19] MEDS ORDERED: TAMSULOSIN HCL 0.4 MG CAP PO SCH (21:00)
[2019-07-19] MEDS ORDERED: INSULIN DETEMIR FLEXPEN/FLEX TOUCH 100 UNITS/ML 3ML SQ SCH (21:00)
[2019-07-19] MEDS ORDERED: AMLODIPINE BESYLATE 5 MG TAB PO SCH (21:00)
[2019-07-19] MEDS ORDERED: GABAPENTIN 100 MG CAP PO SCH (21:00)
[2019-07-19] MEDS ORDERED: ROSUVASTATIN CALCIUM 20 MG TAB PO SCH (21:00)
[2019-07-19] MEDS: FERROUS SULFATE 325 MG TAB PO SCH (21:30)
[2019-07-19] MEDS: LABETALOL HCL 200 MG TAB PO SCH (21:30)
[2019-07-19] MEDS: PANTOprazole 40 MG TAB PO SCH (21:32)
[2019-07-19 22:00] LABS: Appearance Urine Clear (Clear); Bacteria Urine Automated Negative (Negative); Bilirubin Urine Negative (Negative); Blood Urine 2+ (Negative); Color Urine Yellow; Epithelial Cell Urine Auto >30 /lpf (0-5); Glucose Urine UA 1+ (Negative); Ketones Urine Negative (Negative); Leukocyte Esterase Urine 1+ (Negative); Nitrite Urine Negative (Negative); Protein Urine 3+ (Negative); RBC Urine Automated >30 /hpf (0-4); Specific Gravity Urine 1.015 (1.000-1.030); Urobilinogen Urine Negative (Negative)
[2019-07-20] MEDS: HydrALAZINE TAB 50 MG TAB PO SCH ×2 (05:47→17:26)
--- NOTE | 2019-07-20 05:49 | Ultrasound Report ---
US arterial duplex LE BI CLINICAL HISTORY: leg pain w/dec Hgb, r/o PVD pain. Edema. COMPARISON STUDY: 02/14/2016 FINDINGS: Real-time as well as Doppler evaluation of the arterial structures of the lower legs was p erformed. Waveforms are triphasic throughout. Velocity characteristics are unremarkable. Velocity c haracteristics to suggest an increase in velocity of the right as well as left common femoral arterie s. Moderate velocity increase is seen within the distal right superficial femoral artery as well as r ight popliteal artery. The following blood pressure indices were obtained the patient declined a blood pressure evaluation IMPRESSION: 1. Multifocal moderate rather significant increase in velocities of the arterial structures of the le gs bilaterally. 2. 50-70% narrowing of the arterial structures of the right as well as left thigh, with dampened flow within the runoff vasculature of the lower legs. 3. These findings represent progressive change compared to the prior study. ACT 112: Negative or not required by law. The above report was generated using voice recognition software. It may contain grammatical, syntax or spelling errors. Electronically signed by: Osmany Marte M.D. 07/20/2019 5:48 AM
[2019-07-20] MEDS ORDERED: LEVOTHYROXINE SODIUM 100 MCG TABLET PO SCH (06:30)
[2019-07-20] MEDS ORDERED: LEVOTHYROXINE SODIUM 200 MCG TABLET PO SCH (06:30)
[2019-07-20 06:46] LABS: Basophils # (auto) 0.03 K/uL (0-0.2); Basophils % (auto) 0.7 %; Eosinophils # (auto) 0.28 K/uL (0-0.5); Eosinophils % (auto) 6.5 %; Hematocrit (blood only) 24.8 % (42-52); Hemoglobin 7.9 g/dL (14.0-18.0); Immature Granulocytes # (auto) 0.01 K/uL (0.00-0.02); Immature Granulocytes % (auto) 0.2 %; Lymphocytes # (auto) 0.47 K/uL (1.2-3.4); Lymphocytes % (auto) 10.9 %; Mean Corpuscular Hemoglobin 29.9 pg (25-34); Mean Corpuscular Hgb Conc 31.9 g/dL (32-36); Mean Corpuscular Volume 93.9 fL (80-100); Mean Platelet Volume 10.5 fL (7.4-10.4); Monocytes # (auto) 0.41 K/uL (0.11-0.59); Monocytes % (auto) 9.5 %; Neutrophils % (auto) 72.2 %; Platelet Count 127 K/uL (130-400); RDW Coefficient of Variation 17.9 % (11.5-14.5); RDW Standard Deviation 60.6 fL (36.4-46.3); Red Blood Count 2.64 M/uL (4.7-6.1)
[2019-07-20 07:16] LABS: Anisocytosis Present
[2019-07-20 07:26] LABS: BUN Creatinine Ratio 12.5 (10-20); Calcium 8.3 mg/dl (8.5-10.1); Creatinine Clr Calc Pharmacy 7.9 ml/min; Est GFR (African American) 5.2; Est GFR (Non-African American) 4.5; Magnesium 1.9 mg/dl (1.8-2.4); Potassium 4.1 mmol/L (3.5-5.1)
[2019-07-20] MEDS: INSULIN ASPART 100 UNITS/ML 3 ML PEN SC SCH ×3 (08:54→17:39)
[2019-07-20] MEDS ORDERED: DOXAZOSIN MESYLATE 1 MG TAB PO SCH (09:00)
[2019-07-20] MEDS ORDERED: DOCUSATE SODIUM 100 MG CAP PO SCH (09:00)
[2019-07-20] MEDS ORDERED: FOLIC ACID 1 MG TAB PO SCH (09:00)
[2019-07-20] MEDS: CALCIUM ACETATE 667 MG CAP PO SCH ×3 (09:31→17:28)
--- NOTE | 2019-07-20 10:39 | Nephrology Consultation ---
Date of Consultation July 20, 2019 Assessment & Plan (1) ESRD (end stage renal disease): End-stage renal disease, on hemodialysis TTS admitted to the hospital with symptomatic anemia secondary to GI bleeding. Hemoglobin was 6.7 on admission, received 2 units of blood transfusion and improved to 7.9 this morning. Blood pressure acceptable. Volume status, electrolyte acceptable. --no indication for dialysis today, will keep him on schedule for dialysis tomorrow although he missed dialysis on Saturday. --discontinue oral iron supplement as patient usually gets IV iron at the dialysis unit --has been on high dose of NEMESIO --start on oral phosphate binder and renal cap when patient starts orally --dose meds for GFR <10 --left arm nephrology percussion ( AVF) Will follow Thank you for allowing me to participate in your patient's care. It was a pleasure to see Don (2) Anemia: (3) Hypertension: (4) GI bleed: (5) Secondary hyperparathyroidism of renal origin: History of Present Illness Reason for Consultation: End-stage renal disease on hemodialysis. Attending Physician: Kendall Chen, History of Present Illness Don present to the hospital yesterday with dyspnea on exertion and overall not feeling well. Admission he was found to be anemic with hemoglobin 6.7. Received 2 units of blood transfusion and hemoglobin improved to 7.9 this morning. Has history of chronic GI bleeding with gastric AVM, and has been having frequent hospital admission with GI bleeding, low hemoglobin and dyspnea on exertion. Had multiple EGD, colonoscopy over last few months. Last week he had a capsule endoscopy. GI has been closely following and there was plan to do weekly hemoglobin on Saturday and scheduled for blood transfusion every 2 weeks. However over the weekend he fell dyspnea, weak and tired and did not want to wait for Saturday. Has end-stage renal disease on hemodialysis on Saturday, day and Saturday. Last dialysis was last and he had full treatment. Hemoglobin from last Saturday was 8.3. He missed dialysis Saturday as he was not feeling well. AV fistula has been functioning well. He has been getting [facility] dialysis unit at to 25 milligram every 2 weeks and getting Venofer as well. Currently he denies any specific symptom however frustrated to be in hospital in going through different procedures repeatedly. Allergies Allergy/AdvReac Type Severity Reaction Status Date / Time sucralfate [From Carafate] Allergy Mild upset Verified 07/19/19 13:37 dialysis tramadol AdvReac Severe disorented Verified 07/19/19 13:37 ,falling down metformin AdvReac Intermediate CONFUSION Verified 07/19/19 13:37 Home Medications Home Medications Medication Instructions Recorded Confirmed Type tamsulosin 0.4 mg PO HS #90 cap 01/02/19 07/19/19 Rx docusate sodium 100 mg capsule 200 mg PO QAM #30 cap 01/19/19 07/19/19 Rx gabapentin 100 mg capsule 200 mg PO HS #60 cap 02/04/19 07/19/19 Rx levothyroxine 200 mcg PO QAM 02/15/19 07/19/19 History Boost Glucose Control 1 ea PO TIDM 03/18/19 07/19/19 History insulin detemir U-100 100 unit/mL 15 units SUBCUT HS ml 03/25/19 07/19/19 History subcutaneous solution rosuvastatin 20 mg PO HS 04/07/19 07/19/19 History pantoprazole 40 mg PO BID 04/25/19 07/19/19 History Renal Caps 1 cap PO QDL 05/23/19 07/19/19 History calcium acetate(phosphat bind) 667 2,001 mg PO TIDM tab 06/02/19 07/19/19 History mg tablet hydralazine 25 mg tablet 50 mg PO Q8H tab 06/02/19 07/19/19 History insulin aspart U-100 [Novolog 0 sliding scale dose SUBCUT 06/06/19 07/19/19 History U-100 Insulin aspart] USEASDIRECTD labetalol 200 mg PO BID 06/06/19 07/19/19 History amlodipine 10 mg PO HS 06/13/19 07/19/19 History doxazosin [Cardura] 1 mg PO QAM 06/23/19 07/19/19 History ferrous sulfate 325 mg (65 mg 325 mg PO BID #60 tab 06/26/19 07/19/19 Rx iron) tablet,delayed release cyanocobalamin 1,000 1 tab PO QDL 07/10/19 07/19/19 History mcg-salcaprozate sodium 100 mg tablet folic acid 1 mg tablet 1 mg PO QAM 07/10/19 07/19/19 History bumetanide 1 mg tablet 2 mg PO BID #120 tab 07/16/19 07/19/19 Rx darbepoetin rasheed in polysorbat 60 mcg SUBCUT USEASDIRECTD 07/19/19 07/19/19 History levothyroxine 100 mcg PO QAM 07/19/19 07/19/19 History Patient History Medical History Acute blood loss anemia Anxiety Arthritis Asthma AVF (arteriovenous fistula) left arm BPH (benign prostatic hyperplasia) CAD (coronary artery disease) Chronic diastolic congestive heart failure Chronic kidney disease, stage IV (severe) dialysis - [facility], sat at [facility] follow with dr herrera Colon, diverticulosis 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, with long-term current use of insulin COPD (chronic obstructive pulmonary disease) Depression Diabetic peripheral neuropathy 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) (Acute) GERD (gastroesophageal reflux disease) Hearing difficulty Hyperlipidemia LDL goal <70 Hypnic jerks Memory loss Mitral regurgitation Obstructive sleep apnea uses oxygen 2 l nc at Pulmonary hypertension Secondary hyperparathyroidism of renal origin Uncontrolled daytime somnolence sleeps thru day and cant sleep at [facility] Surgical History H/O cardiac catheterization many years ago - over 10 years no stents follow with trung H/O esophagogastroduodenoscopy 02/16/19 and 03/2019 [facility]- Dr. Mando White. 50mg propofol, no issues. H/O hemorrhoidectomy History of esophagogastroduodenoscopy (EGD) x 2 at [facility] during admission from 05/23/19-05/30/19 Hx of cholecystectomy Family History Unknown Myocardial infarction Diabetes Mother Diabetes Gallbladder disease Hypertension Breast cancer late 70s Father Diabetes Hypertension Brother Diabetes Hypertension Kidney disease Denies family history of Ovarian cancer Prostate cancer Lung cancer Colorectal cancer Social History Preferred Language: Nigerien Communication Ability: Effective Visual Impairment: No Limitations Hearing Ability: Hard of Hearing College Specialist Required: No Beliefs That Will Affect Care: None marital status: Current Living Situation: Spouse current occupational status: disabled current occupation: works part-time at [employer] Other Information That Helps Us Care for You: No Feels Safe at Home: Yes Safety Concerns: Feels Safe At This Time Smoking Status: Former smoker Tobacco Type: cigarettes ; Do You Dip or Chew Tobacco: No ; Number of Years Since Quit: 25 ; Second Hand Exposure: No ; Tobacco Cessation Education Requested by Patient: No Hx Alcohol Use: No Hx Substance Use: No Childhood Exposure to Second-Hand Smoke: No Diet Comment: regular caffeine: Yes during the past year weight has: remained stable Dental Care, Regularly: Yes Physical Activity Frequency: Does not Exercise Physical Activity Frequency Comment: limited due physical condition Seatbelt Use: sometimes Sunscreen Use: No Review of Systems Review of Systems: All systems reviewed & are unremarkable except as noted in HPI & below Physical Exam Constitutional: + ill appearing; no acute distress pale, frail apprearing Eyes: PERRL, conjunctivae normal, anicteric sclerae ENMT: external ear and nose normal, oropharynx normal Ears: no hearing impairment Neck: trachea midline Respiratory: normal respiratory effort, lungs clear to auscultation no cough Auscultation: no crackles, no rales and no wheezes Cardiovascular: Rate/Rhythm: regular rate and regular rhythm Heart Sounds: normal S1 and normal S2 Extremities: + edema (b/l LE 1 + edema) and + AV fistula Gastrointestinal (Abdomen): normal bowel sounds, soft, nontender, no hepatosplenomegaly Percussion/Palpation: abdomen nontender, no guarding and abdomen not rigid Musculoskeletal: Extremities: extremities normal to inspection Gait: normal gait Skin: no rashes, warm and dry Neurologic: awake; not confused Psychiatric: A+Ox3, euthymic affect Results & Data Vital Signs (Past 12 Hours) Vital Signs Temp Pulse Pulse Resp BP BP Pulse Ox 07/20/19 07:13 36.4 C L 60 18 152/65 H 90 07/20/19 05:47 142/63 H 07/19/19 23:38 36.6 C 62 18 170/74 H 90 07/19/19 22:35 36.6 C 62 18 176/74 H 90 PG Care Time/CCT Total # of Minutes Spent Total Time Spent with Patient: Total time spent is greater than 50% in coordination of care (as documented) at patient's floor/unit and/or counseling patient: Coding Level of Care Code 94328 Inpt Consult Level 5 Diagnoses ESRD (end stage renal disease) N18.6 Anemia D64.9 Anemia type: unspecified type Hypertension I15.0 Hypertension type: renovascular hypertension GI bleed K92.2 GI bleed type/associated pathology: unspecified gastrointestinal hemorrhage type Secondary hyperparathyroidism of renal origin N25.81 (1) Anemia Anemia type: unspecified type Qualified Code(s): D64.9 - Anemia, unspecified (2) Hypertension Hypertension type: renovascular hypertension Qualified Code(s): I15.0 - Renovascular hypertension (3) GI bleed GI bleed type/associated pathology: unspecified gastrointestinal hemorrhage type Qualified Code(s): K92.2 - Gastrointestinal hemorrhage, unspecified
[2019-07-20] MEDS: FERROUS SULFATE 325 MG TAB PO SCH (11:25)
[2019-07-20] MEDS ORDERED: NEPHROCAPS PO SCH (11:30)
[2019-07-20] MEDS ORDERED: CYANOCOBALAMIN 500 MCG TABLET (VITAMIN B-12) PO SCH (11:30)
--- NOTE | 2019-07-20 15:30 | History & Physical Report ---
Date of Service July 20, 2019 History of Present Illness Chief Complaint: anemia Primary Care Provider: Mahsa Wang DO For EGD Allergies Allergy/AdvReac Type Severity Reaction Status Date / Time sucralfate [From Carafate] Allergy Mild upset Verified 07/19/19 13:37 dialysis tramadol AdvReac Severe disorented Verified 07/19/19 13:37 ,falling down metformin AdvReac Intermediate CONFUSION Verified 07/19/19 13:37 Home Medications Home Medications Medication Instructions Recorded Confirmed Type tamsulosin 0.4 mg PO HS #90 cap 01/02/19 07/19/19 Rx docusate sodium 100 mg capsule 200 mg PO QAM #30 cap 01/19/19 07/19/19 Rx gabapentin 100 mg capsule 200 mg PO HS #60 cap 02/04/19 07/19/19 Rx levothyroxine 200 mcg PO QAM 02/15/19 07/19/19 History Boost Glucose Control 1 ea PO TIDM 03/18/19 07/19/19 History insulin detemir U-100 100 unit/mL 15 units SUBCUT HS ml 03/25/19 07/19/19 History subcutaneous solution rosuvastatin 20 mg PO HS 04/07/19 07/19/19 History pantoprazole 40 mg PO BID 04/25/19 07/19/19 History Renal Caps 1 cap PO QDL 05/23/19 07/19/19 History calcium acetate(phosphat bind) 667 2,001 mg PO TIDM tab 06/02/19 07/19/19 History mg tablet hydralazine 25 mg tablet 50 mg PO Q8H tab 06/02/19 07/19/19 History insulin aspart U-100 [Novolog 0 sliding scale dose SUBCUT 06/06/19 07/19/19 History U-100 Insulin aspart] USEASDIRECTD labetalol 200 mg PO BID 06/06/19 07/19/19 History amlodipine 10 mg PO HS 06/13/19 07/19/19 History doxazosin [Cardura] 1 mg PO QAM 06/23/19 07/19/19 History ferrous sulfate 325 mg (65 mg 325 mg PO BID #60 tab 06/26/19 07/19/19 Rx iron) tablet,delayed release cyanocobalamin 1,000 1 tab PO QDL 07/10/19 07/19/19 History mcg-salcaprozate sodium 100 mg tablet folic acid 1 mg tablet 1 mg PO QAM 07/10/19 07/19/19 History bumetanide 1 mg tablet 2 mg PO BID #120 tab 07/16/19 07/19/19 Rx darbepoetin rasheed in polysorbat 60 mcg SUBCUT USEASDIRECTD 07/19/19 07/19/19 History levothyroxine 100 mcg PO QAM 07/19/19 07/19/19 History Past Med/Surg History Medical History Acute blood loss anemia Anxiety Arthritis Asthma AVF (arteriovenous fistula) left arm BPH (benign prostatic hyperplasia) CAD (coronary artery disease) Chronic diastolic congestive heart failure Chronic kidney disease, stage IV (severe) dialysis - [facility], sat at [facility] follow with dr sharon Teague, diverticulosis 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, with long-term current use of insulin COPD (chronic obstructive pulmonary disease) Depression Diabetic peripheral neuropathy 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 Mando White. 50mg propofol, no issues. 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 Beliefs That Will Affect Care: None marital status: Current Living Situation: Spouse current occupational status: disabled current occupation: works part-time at [employer] Other Information That Helps Us Care for You: No Feels Safe at Home: Yes Safety Concerns: Feels Safe At This Time Smoking Status: Former smoker Tobacco Type: cigarettes ; Do You Dip or Chew Tobacco: No ; Number of Years Since Quit: 25 ; Second Hand Exposure: No ; Tobacco Cessation Education Requested by Patient: No Hx Alcohol Use: No Hx Substance Use: No Childhood Exposure to Second-Hand Smoke: No Diet Comment: regular caffeine: Yes during the past year weight has: remained stable Dental Care, Regularly: Yes Physical Activity Frequency: Does not Exercise Physical Activity Frequency Comment: limited due physical condition Seatbelt Use: sometimes Sunscreen Use: No Physical Exam Constitutional: + ill appearing Respiratory: normal respiratory effort Cardiovascular: Rate/Rhythm: regular rate and regular rhythm Gastrointestinal (Abdomen): Percussion/Palpation: abdomen soft Musculoskeletal: AV fistula right arm Results & Data Vital Signs (Past 12 Hours) Vital Signs Temp Pulse Resp BP Pulse Ox 07/20/19 07:13 36.4 C L 60 18 152/65 H 90 07/20/19 05:47 142/63 H Code Status & VTE Plan VTE Prophylaxis Plan VTE Prophylaxis will be ordered: Yes
--- NOTE | 2019-07-20 15:35 | Anesthesiology Consultation ---
Date of Service July 20, 2019 Assessment & Plan (1) Encounter for pre-operative examination: Chart Review Chart Review: Acceptable Risk for Surgery and Patient NOT seen in Pre Admission Testing Consults Requested none History Surgery Operation Date: 07/20/19 18:15 Proposed Procedures p Esophagogastroduodenoscopy Dr Christopher White Height/Weight Height: 6 ft 1 in Weight: 104.6 kg Allergies Allergy/AdvReac Type Severity Reaction Status Date / Time sucralfate [From Carafate] Allergy Mild upset Verified 07/19/19 13:37 dialysis tramadol AdvReac Severe disorented Verified 07/19/19 13:37 ,falling down metformin AdvReac Intermediate CONFUSION Verified 07/19/19 13:37 Medications Home Medications Medication Instructions Recorded Confirmed Last Taken tamsulosin 0.4 mg PO HS #90 cap 01/02/19 07/19/19 07/18/19 docusate sodium 100 mg capsule 200 mg PO QAM #30 cap 01/19/19 07/19/19 07/19/19 gabapentin 100 mg capsule 200 mg PO HS #60 cap 02/04/19 07/19/19 07/18/19 levothyroxine 200 mcg PO QAM 02/15/19 07/19/19 07/19/19 Boost Glucose Control 1 ea PO TIDM 03/18/19 07/19/19 07/19/19 insulin detemir U-100 100 unit/mL 15 units SUBCUT HS ml 03/25/19 07/19/19 07/18/19 subcutaneous solution rosuvastatin 20 mg PO HS 04/07/19 07/19/19 07/18/19 pantoprazole 40 mg PO BID 04/25/19 07/19/19 07/19/19 Renal Caps 1 cap PO QDL 05/23/19 07/19/19 07/18/19 calcium acetate(phosphat bind) 667 2,001 mg PO TIDM tab 06/02/19 07/19/19 07/19/19 mg tablet hydralazine 25 mg tablet 50 mg PO Q8H tab 06/02/19 07/19/19 06/23/19 insulin aspart U-100 [Novolog 0 sliding scale dose SUBCUT 06/06/19 07/19/19 06/23/19 U-100 Insulin aspart] USEASDIRECTD labetalol 200 mg PO BID 06/06/19 07/19/19 07/19/19 amlodipine 10 mg PO HS 06/13/19 07/19/19 07/18/19 doxazosin [Cardura] 1 mg PO QAM 06/23/19 07/19/19 07/19/19 ferrous sulfate 325 mg (65 mg 325 mg PO BID #60 tab 06/26/19 07/19/19 07/19/19 iron) tablet,delayed release cyanocobalamin 1,000 1 tab PO QDL 07/10/19 07/19/19 07/18/19 mcg-salcaprozate sodium 100 mg tablet folic acid 1 mg tablet 1 mg PO QAM 07/10/19 07/19/19 07/19/19 bumetanide 1 mg tablet 2 mg PO BID #120 tab 07/16/19 07/19/19 07/19/19 darbepoetin rasheed in polysorbat 60 mcg SUBCUT USEASDIRECTD 07/19/19 07/19/19 Unknown levothyroxine 100 mcg PO QAM 07/19/19 07/19/19 07/19/19 Active Medications Generic Name Dose Route Start Last Admin Trade Name Freq PRN Reason Stop Dose Admin Amlodipine Besylate 10 mg 07/19/19 21:00 07/19/19 21:30 Norvasc PO 08/18/19 20:59 10 mg HS SHANTA Administration Bumetanide 2 mg 07/19/19 18:00 07/19/19 18:54 Bumex PO 08/18/19 17:59 2 mg BID17 SHANTA Administration Calcium Acetate 2,001 mg 07/20/19 08:00 07/20/19 12:54 Phoslo PO 08/19/19 07:59 Not Given TIDM SHANTA Ferrous Sulfate 325 mg 07/19/19 21:00 07/20/19 11:25 Feosol PO 08/18/19 20:59 Not Given BID SHANTA Gabapentin 200 mg 07/19/19 21:00 07/19/19 21:30 Neurontin PO 08/18/19 20:59 200 mg HS SHANTA Administration Hydralazine HCl 50 mg 07/19/19 18:15 07/20/19 05:47 Apresoline PO 08/18/19 18:14 Not Given Q8 SHANTA Insulin Aspart 0 units 07/19/19 18:00 07/20/19 12:53 Novolog Flexpen SC 08/18/19 17:59 Not Given ACHS SHANTA Insulin Detemir 15 units 07/19/19 21:00 07/19/19 21:29 Levemir Flextouch SQ 08/18/19 20:59 15 units HS SHANTA Administration Labetalol HCl 200 mg 07/19/19 21:00 07/19/19 21:30 Normodyne PO 08/18/19 20:59 200 mg BID SHANTA Administration Levothyroxine Sodium 100 mcg 07/20/19 06:30 07/20/19 05:34 Synthroid PO 08/19/19 06:29 Not Given DAILYBB SHANTA Levothyroxine Sodium 200 mcg 07/20/19 06:30 07/20/19 05:34 Synthroid PO 08/19/19 06:29 Not Given DAILYBB SHANTA Pantoprazole Sodium 40 mg 07/19/19 21:00 07/19/19 21:32 Protonix PO 08/18/19 20:59 40 mg BID SHANTA Administration Rosuvastatin Calcium 20 mg 07/19/19 21:00 07/19/19 21:32 Crestor PO 08/18/19 20:59 20 mg HS SHANTA Administration Tamsulosin HCl 0.4 mg 07/19/19 21:00 07/19/19 21:30 Flomax PO 08/18/19 20:59 0.4 mg HS SHANTA Administration Vitamin B Complex/Folic Acid 1 cap 07/20/19 11:30 07/20/19 12:54 Nephrocaps PO 08/19/19 11:29 Not Given QDL SHANTA NPO Date Last Intake of Fluids: 07/19/19 Time Last Intake of Fluids: 17:00 Date Last Intake of Solids: 07/19/19 Time Last Intake of Solids: 17:00 Past Medical History Medical History Acute blood loss anemia Anxiety Arthritis Asthma AVF (arteriovenous fistula) left arm BPH (benign prostatic hyperplasia) CAD (coronary artery disease) Chronic diastolic congestive heart failure Chronic kidney disease, stage IV (severe) dialysis - [facility], sat at [facility] follow with dr herrera Colon, diverticulosis 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, with long-term current use of insulin COPD (chronic obstructive pulmonary disease) Depression Diabetic peripheral neuropathy 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) (Acute) GERD (gastroesophageal reflux disease) Hearing difficulty Hyperlipidemia LDL goal <70 Hypnic jerks Memory loss Mitral regurgitation Obstructive sleep apnea uses oxygen 2 l nc at [facility] Pulmonary hypertension Secondary hyperparathyroidism of renal origin Uncontrolled daytime somnolence sleeps thru day and cant sleep at [facility] Past Family History Family History Unknown Myocardial infarction Diabetes Mother Diabetes Gallbladder disease Hypertension Breast cancer late 70s Father Diabetes Hypertension Brother Diabetes Hypertension Kidney disease Denies family history of Ovarian cancer Prostate cancer Lung cancer Colorectal cancer Past Surgical History Surgical History H/O cardiac catheterization many years ago - over 10 years no stents follow with trung H/O esophagogastroduodenoscopy 02/16/19 and 03/2019 [facility]- Dr. Mando White. 50mg propofol, no issues. H/O hemorrhoidectomy History of esophagogastroduodenoscopy (EGD) x 2 at [facility] during admission from 05/23/19-05/30/19 Hx of cholecystectomy Social History Smoking Status: Former smoker tobacco type: cigarettes Do You Dip or Chew Tobacco: No Hx Alcohol Use: No Hx Substance Use: No substance use type: does not use Physical Exam Vital Signs Last Vital Signs Temp 36.7 C 07/20/19 15:32 Pulse 60 07/20/19 15:32 Resp 16 07/20/19 15:32 BP 157/78 H 07/20/19 15:32 Pulse Ox 95 07/20/19 15:32 Testing Laboratory Results 07/20/19 06:23 07/20/19 06:23 PT 11.1 Seconds (9.0-12.0) 07/19/19 13:40 INR 1.1 (0.9-1.1) 07/19/19 13:40 APTT 27.1 Seconds (21.0-31.0) 07/19/19 13:40 Urine Color Yellow 07/19/19 21:45 Urine Appearance Clear (Clear) 07/19/19 21:45 Urine pH 7.0 (4.5-7.5) 07/19/19 21:45 Ur Specific [place] 1.015 (1.000-1.030) 07/19/19 21:45 Urine Protein 3+ (Negative) H 07/19/19 21:45 Urine Glucose (UA) 1+ (Negative) H 07/19/19 21:45 Urine Ketones Negative (Negative) 07/19/19 21:45 Urine Nitrite Negative (Negative) 07/19/19 21:45 Ur Leukocyte Esterase 1+ (Negative) H 07/19/19 21:45 Urine WBC (Auto) 5-10 /hpf (0-5) H 07/19/19 21:45 Urine RBC (Auto) >30 /hpf (0-4) H 07/19/19 21:45 U Hyaline Cast (Auto) 1-5 /lpf (0-5) 07/19/19 21:45 U Epithel Cells (Auto) >30 /lpf (0-5) H 07/19/19 21:45 Urine Bacteria (Auto) Negative (Negative) 07/19/19 21:45 Blood Type B Positive 07/19/19 14:26 Antibody Screen NEGATIVE 07/19/19 14:26 07/19/19 21:45 Urine Culture - Preliminary Urine,Clean Catch No growth - Less than 1,000 colonies/mL, Final report to follow. 07/20/19 07/20/19 12:08 07:54 POC Glucose 101 H 119 H
[2019-07-20] MEDS: PANTOprazole 40 MG TAB PO SCH (15:41)
[2019-07-20] MEDS: LABETALOL HCL 200 MG TAB PO SCH (15:41)
[2019-07-20] MEDS: BUMETANIDE 1 MG TAB PO SCH ×2 (15:41→17:26)
[2019-07-20] MEDS ORDERED: SODIUM CHLORIDE 0.9% 1000ML 1,000 ML IV SCH (15:50)
[2019-07-20] MEDS ORDERED: LIDOCAINE HCL 2% 2 ML VIAL/AMP(20MG/ML) INFIL ONE (15:59)
[2019-07-20] MEDS ORDERED: PROPOFOL IV EMULSION 10 MG/ML 20 ML VIAL IV ONE (15:59)
--- NOTE | 2019-07-20 16:39 | GI REPORT ---
Patient Name: Darnell Mcintyre Procedure Date: 07/20/2019 4:00 PM Date of : 1940 Admit Type: Inpatient Age: 79 Gender: Male Attending MD: Mando White MD Procedure: Upper GI endoscopy Providers: Mando White MD Referring MD: Kendall Chen Indications: Suspected upper gastrointestinal bleeding, Suspected upper gastrointestinal bleeding in patient with chronic blood loss Medicines: Propofol total dose 100 mg IV, Lidocaine 80 mg IV Complications: No immediate complications. Estimated Blood Loss: Estimated blood loss was minimal. Procedure: Pre-Anesthesia Assessment: - Prior to the procedure, a History and Physical was performed, and patient medications, allergies and sensitivities were reviewed. The patient's tolerance of previous anesthesia was reviewed. - The risks and benefits of the procedure and the sedation options and risks were discussed with the patient. All questions were answered and informed consent was obtained. After obtaining informed consent, the endoscope was passed under direct vision. Throughout the procedure, the patient's blood pressure, pulse, and oxygen saturations were monitored continuously. The Endoscope was introduced through the mouth, and advanced to the antrum of the stomach. The upper GI endoscopy was somewhat difficult due to abnormal anatomy. The patient tolerated the procedure well. Findings: The Z-line was regular and was found 45 cm from the incisors. Multiple 5 mm semi-sessile polyps with no bleeding and no stigmata of recent bleeding were found in the gastric body. Multiple angioectasias with stigmata of recent bleeding were found in the gastric antrum. Vaporization for bleeding prevention using argon plasma at 0.8 liters/minute and 30 whitley was successful. Estimated blood loss was minimal. Impression: - Z-line regular, 45 cm from the incisors. - Multiple gastric polyps. - Multiple recently bleeding angioectasias in the stomach. Treated with argon plasma coagulation (APC). - No specimens collected. Recommendation: - Return patient to hospital cheema for ongoing care. Mando White M.D. aMndo White MD 07/20/2019 4:39:18 PM This report has been signed electronically. Note Initiated On: 07/20/2019 4:00 PM Number of Addenda: 0 I attest to the content of the Intraoperative Record and orders documented therein, exceptions below {[id number]}
--- NOTE | 2019-07-20 17:06 | Anesthesiology Progress Note ---
Date of Service July 20, 2019 Anesthesia Post Procedure Vital Signs Vital Signs: Temp Pulse Pulse Resp BP BP Pulse Ox 07/20/19 16:55 57 L 18 153/67 H 97 07/20/19 16:40 36.7 C 58 L 14 142/69 H 93 07/20/19 15:32 36.7 C 60 16 157/78 H 95 07/20/19 07:13 36.4 C L 60 18 152/65 H 90 07/20/19 05:47 142/63 H 07/19/19 23:38 36.6 C 62 18 170/74 H 90 07/19/19 22:35 36.6 C 62 18 176/74 H 90 07/19/19 21:38 36.6 C 64 18 174/61 H 90 07/19/19 21:08 36.4 C L 61 18 175/66 H 92 07/19/19 20:32 36.6 C 61 18 170/67 H 92 07/19/19 20:22 36.6 C 60 18 166/69 H 92 07/19/19 19:58 36.6 C 61 18 173/71 H 90 07/19/19 18:42 36.6 C 61 18 174/71 H 92 07/19/19 18:41 36.6 C 61 18 163/62 H 90 07/19/19 18:11 36.6 C 59 L 18 166/77 H 92 07/19/19 17:41 36.3 C L 59 L 20 162/70 H 92 07/19/19 17:20 60 16 175/68 H 07/19/19 17:15 59 L 14 07/19/19 17:10 59 L 15 118/98 Transfer of Care Handoff Completed per policy Notes Mental Status: alert / awake / arousable Patient Amnestic to Procedure: Yes Nausea / Vomiting: adequately controlled Pain: adequately controlled Airway Patency, RR, SpO2: stable & adequate BP & HR: stable & adequate Hydration State: stable & adequate Anesthetic Complications: no major complications apparent and Pt Satisfied with anesthetic care
[2019-07-20] MEDS ORDERED: OCTREOTIDE ACETATE 100 MCG/ML VIAL SQ STA (17:08)
--- NOTE | 2019-07-20 18:38 | Discharge Summary ---
Date of Service July 20, 2019 Admission HPI Per Admitting Provider Mr. Mcintyre is a medically complex 79 yo gentleman with a PMHx of GAVE syndrome with continued GI bleeds who presented to the ED with weakness, found to have hgb of 6.7. This is is 6th hospital admission in the past 2 months, and his second in the past two weeks for recurrent symptoms of anemia. His PMHx is also significant for ESRD, on hemodialysis , Sat, however he informs hospital team that he missed his dialysis on Saturday, 07/18 due to feeling ill. His potassium on admission was 4.2, Cr at 8.9. He is accompanied by his son and daughter, who expresses frustration over his repeated emergency department visits and hospital stays. He was given a standing order for H+H by [facility] GI specialist Dr. Santana for routine outpatient monitoring. Mr. Mcintyre attempted to get his H+H drawn at his dialysis facility, but was told by representatives that they were unable to process the request. He was seen in his primary care office on 07/17, at which time a standing order for H+H was placed, and plans were made for him to have this lab drawn at the [facility] lab every Saturday, along with q2wk transfusions at [facility]. However, due to his profound weakness, Mr. Mcintyre was unable to wait for routine blood draw tomorrow and came in to the ED for evaluation today. Principal Diagnosis symptomatic anemia Discharge Exam Constitutional WD/WN, vitals as above Eyes PERRL, conjunctivae normal, anicteric sclerae ENMT external ear and nose normal, oropharynx normal Respiratory normal respiratory effort, lungs clear to auscultation Cardiovascular RRR, no murmur, no edema Heart Sounds: normal S1 and normal S2 Extremities: + AV fistula (L arm for dialysis) Gastrointestinal (Abdomen) normal bowel sounds, soft, nontender, no hepatosplenomegaly Skin no rashes, warm and dry Discharge Data Allergies Allergy/AdvReac Type Severity Reaction Status Date / Time sucralfate [From Carafate] Allergy Mild upset Verified 07/20/19 23:38 dialysis tramadol AdvReac Severe disorented Verified 07/20/19 23:38 ,falling down metformin AdvReac Intermediate CONFUSION Verified 07/20/19 23:38 Consultations 07/19/19 14:53 ED Decision to Admit Stat 07/19/19 17:36 Consult Nephrology Routine Procedures Performed Operation Date: 07/20/19 18:15 Actual Procedures p EGD Hemostasis - Mando Santana Ordered Studies 07/19/19 17:36 US arterial duplex LE Routine Hospital Course (1) Symptomatic anemia: (1) Symptomatic anemia: - Hgb 6.7 on admission; repeat Hgb 7.9 - currently hemodynamically stable - Recurrent blood loss likely secondary to known GAVE syndrome in the setting of ESRD (2) Gastric AV malformation: - Likely source of ongoing slow bleeding. - patient had two EGD's during May admission to [facility] (showed evidence of large gastric ulcer and AVMs which were cauterized with gold probe) - Continue pantoprazole 40mg BID. - continue Octreotide 50mcg TID for 4 weeks Total Time Total Time Spent Total Time Spent (In Minutes): <30 Discharge Plan Discharge Items Patient Disposition: Home - Self-Care Reason For Visit: SYMPTOMATIC ANEMIA Discharge Diagnosis: Symptomatic anemia Activity: Per Instructions section Non-emergency contact: Primary Care Provider, [employer] and Office Machine Technician Call non-emergency contact if: you have any medication questions and your symptoms worsen Follow-up/Referrals: Mahsa Wang DO [Primary Care Provider] - 07/27/19 9:20 am Diet: Carb Consistent or DM2, Heart Healthy and Low Sodium (2gm) Addtl Attending Provider Instructions: You were seen and evaluated for your continued anemia; during this admission you received two units of blood and had an EGD that demonstrated small continued bleeds from your stomach that were subsequently treated. You are being started on a medication called Octreotide that you should take three times a day in an injection that goes under your skin, this should continue to help with the gastric bleeding that was noted during your visit. This medication will only be continued for one month, as you should continue to have follow-up with GI and your PCP. Pending Studies at Discharge: No Stand-Alone Forms: [employer], Smoking Cessation Medications and DC Order Prescriptions: New octreotide acetate 50 mcg/mL solution 50 mcg SQ Q8H 30 Days Qty: 90 RF: 0 Continued gabapentin 100 mg capsule 200 mg PO HS Qty: 60 RF: 5 calcium acetate(phosphat bind) 667 mg tablet 2,001 mg PO TIDM RF: 0 hydralazine 25 mg tablet 50 mg PO Q8H RF: 0 ferrous sulfate 325 mg (65 mg iron) tablet,delayed release (DR/EC) 325 mg PO BID Qty: 60 RF: 1 bumetanide 1 mg tablet 2 mg PO BID Qty: 120 RF: 2 folic acid 1 mg tablet 1 mg PO QAM RF: 0 Eligen B12 1,000-100 mcg-mg tablet 1 tab PO QDL RF: 0 docusate sodium 100 mg capsule 200 mg PO QAM Qty: 30 RF: 0 Levemir U-100 Insulin 100 unit/mL solution 15 units subcut HS RF: 0 Renal Caps 1 mg Capsule 1 cap PO QDL RF: 0 amlodipine 10 mg tablet 10 mg PO HS RF: 0 doxazosin [Cardura] 1 mg tablet 1 mg PO QAM RF: 0 levothyroxine 100 mcg tablet 100 mcg PO QAM RF: 0 darbepoetin rasheed in polysorbat 60 mcg/mL solution 60 mcg subcut USEASDIRECTD RF: 0 tamsulosin 0.4 mg capsule 0.4 mg PO HS Qty: 90 RF: 1 levothyroxine 200 mcg tablet 200 mcg PO QAM RF: 0 Boost Glucose Control 0.06-1.1 gram-kcal/mL Liquid 1 ea PO TIDM RF: 0 rosuvastatin 20 mg tablet 20 mg PO HS RF: 0 pantoprazole 40 mg tablet,delayed release (DR/EC) 40 mg PO BID RF: 0 labetalol 200 mg Tablet 200 mg PO BID RF: 0 insulin aspart U-100 [Novolog U-100 Insulin aspart] 100 unit/mL solution 0 sliding scale dose subcut USEASDIRECTD RF: 0 Discharge Orders: Discharge Order (Routine); Ordered 07/20/19 Ordered By: Dandre Jewell Admission Data Admit Date/Time: 07/19/19 15:59 Attending Provider: Kendall Chen Admit Provider: Arabella Cintron Primary Care Provider: Mahsa Wang Other Providers: Bobbi Rios ; Merlyn Briceno Other Interventions: Discharge Summary Assessment (RN) Last Done: 07/20/19 18:24 DC Date/Time DO NOT enter until pt leaves facility: 07/20/19 19:33 Supervising Physician Co-Signing Physician Notes I personally examined the patient and verified all mora points of history and exam, discussed case, and agree with decision making with Dr Jewell. feeling ok just frustrated with situation. tried to explain to him multiple times about what we are seeing/what we are managing/how it is a difficult overall situation - he seemed to have a hard time understanding. d/w dr santana - input appreciated. vitals noted nad heent nc at mmm breathing unlabored no pallor or icterus symptomatic anemia requiring recurrent transfusion due to constant/chronic GI bleeding from GAVE worsened by lack of adequate hematopoetic response due to ESRD. review of literature showed three patients with benefit from octreotide for this - seems logical - d/w GI who agrees that given the severity of patient's situation it would be worth therapeutic trial. study was 100mcg - but with ESRD appears dose should be reduced for most indications - so will start w 50mcg, can increase if needed. continue to follow Hgb closely and transfuse prn; continue EPO supplementation as directed by nephro. safe for home - close f/u. Resident Activity Tracking Resident Involvement: Resident Care Provided Care Provided: Adult Hospital Medicine
--- NOTE | 2019-07-20 22:43 | Electrocardiogram Report ---
Test Reason : Blood Pressure : / mmHG Vent. Rate : 060 BPM Atrial Rate : 060 BPM P-R Int : 216 ms QRS Dur : 160 ms QT Int : 532 ms P-R-T Axes : 080 097 -73 degrees QTc Int : 532 ms Sinus rhythm with 1st degree A-V block Right bundle branch block T wave abnormality, consider inferolateral ischemia Abnormal ECG When compared with ECG of 07-JUL-2019 13:52, Premature atrial complexes are no longer Present Confirmed by Martin Daugherty ([id number]) on 07/20/2019 10:42:47 PM Referred By: REFERRED SELF Confirmed By:Martin Daugherty
[2019-07-21] MEDS ORDERED: SODIUM CHLORIDE 0.9% 1000ML 1,000 ML IV PRN (07:00)
--- NOTE | 2019-07-21 17:06 | Billing Data ---
Date of Service July 20, 2019 Coding Level of Care Code D/C Day Management <30 mins
== END 2019-07-20 19:33 | disposition home health service (06) | DRG 811 ==
LOC: ED 12:45 → SUATTDRO 15:59 → 4W 15:59

== ENCOUNTER 2019-07-23 16:54 | Inpatient (IN) ==
[2019-07-23 18:49] LABS: Hematocrit (blood only) 20.1 % (42-52); Hemoglobin 6.5 g/dL (14.0-18.0); Mean Corpuscular Hemoglobin 30.1 pg (25-34); Mean Corpuscular Hgb Conc 32.3 g/dL (32-36); Mean Corpuscular Volume 93.1 fL (80-100); Mean Platelet Volume 10.2 fL (7.4-10.4); Platelet Count 125 K/uL (130-400); RDW Coefficient of Variation 16.8 % (11.5-14.5); RDW Standard Deviation 57.3 fL (36.4-46.3); Red Blood Count 2.16 M/uL (4.7-6.1); White Blood Count 3.43 K/uL (4.8-10.8)
[2019-07-23 19:02] LABS: Basophils # (auto) 0.02 K/uL (0-0.2); Basophils % (auto) 0.6 %; Eosinophils # (auto) 0.22 K/uL (0-0.5); Eosinophils % (auto) 6.4 %; Lymphocytes # (auto) 0.41 K/uL (1.2-3.4); Monocytes # (auto) 0.31 K/uL (0.11-0.59); Neutrophils # (auto) 2.47 K/uL (1.4-6.5); RBC Morphology Unremarkable
--- NOTE | 2019-07-23 19:02 | XRay Report ---
SINGLE VIEW CHEST CLINICAL HISTORY: Generalized weakness. FINDINGS: An AP, portable, upright chest radiograph is compared to study dated 07/19/2019. Correlation is made with chest CT dated 10/31/2018. The examination is significantly degraded by portable techniq ue and patient rotation. The heart is enlarged noting atherosclerotic calcification of the thoracic a kimberly. There is pulmonary vascular congestion. Trace pleural effusions are suspected with left basilar consolidation. No pneumothorax is seen. The skeletal structures are osteopenic. The bony thorax is g rossly intact. IMPRESSION: 1. Cardiomegaly with evidence of congestive failure. 2. Suspect trace pleural effusions and left basilar consolidation. ACT 112: Negative or not required by law. Electronically signed by: Shayan Gonzalez M.D. 07/23/2019 7:01 PM
[2019-07-23 19:04] LABS: Albumin Globulin Ratio 0.8 (0.9-2); Albumin Level 2.8 gm/dl (3.4-5.0); BUN Creatinine Ratio 10.5 (10-20); Bilirubin,Total 0.4 mg/dl (0.2-1); Creatinine Clr Calc Pharmacy 11.7 ml/min; Est GFR (African American) 8.7; Est GFR (Non-African American) 7.5; Globulin 3.5 gm/dl (2.5-4.0); Potassium 3.8 mmol/L (3.5-5.1); Thyroid Stimulating Hormone 20.3 uIu/ml (0.300-4.500); Total Protein 6.3 gm/dl (6.4-8.2); Troponin I 0.07 ng/ml (0-0.045)
[2019-07-23 19:19] LABS: T4 Free Thyroxine 0.83 ng/dl (0.8-1.6)
[2019-07-23] MEDS ORDERED: GLUCAGON FOR INJ 1 MG VIAL SQ PRN ×2 (20:30→21:24)
[2019-07-23] MEDS ORDERED: GLUCOSE 40% GEL 15 GM TUBE PO PRN ×2 (20:30→21:24)
[2019-07-23] MEDS ORDERED: DEXTROSE 50% 50 ML SYRINGE IV PRN ×2 (20:30→21:24)
[2019-07-23] MEDS ORDERED: GLUCOSE 10 TABS/TUBE PO PRN ×2 (20:30→21:24)
--- NOTE | 2019-07-23 20:53 | History & Physical Report ---
Date of Service July 23, 2019 Assessment & Plan (1) ESRD (end stage renal disease): ESRD on HD/symptomatic anemia/CHF/generalized weakness- family reports that his dialysis treatment was cut short earlier in the day due to symptoms of fatigue and lightheadedness, although patient denies these symptoms. Likely has symptoms secondary to anemia with hemoglobin of 6.5. Would not transfuse him tonight, due to possible need for dialysis associated with transfusion, and would not be able to perform dialysis this evening if necessary. We will plan on transfusing patient in the morning, and have dialysis after that or in association with the transfusion. Consult his cartography supervisor Dr. Briceno. Present on Admission?: Yes (2) CHF (congestive heart failure): See above Present on Admission?: Yes (3) Weakness: See above Present on Admission?: Yes (4) Symptomatic anemia: Type and screen this evening. Patient does have a history of gastric antral vascular ectasia, that was reported by Dr. White during his last admission to not likely be the source of his anemia. Present on Admission?: Yes (5) GAVE (gastric antral vascular ectasia): Continue pantoprazole 40 mg p.o. twice daily Present on Admission?: Yes (6) Diabetes: Patient Accu-Cheks before meals and at bedtime with NovoLog coverage per scale. Present on Admission?: Yes (7) Hypothyroidism: Continue levothyroxine 30 mcg every morning Present on Admission?: Yes (8) Hypertension: Continue amlodipine 10 mg at bedtime, doxazosin 1 mg p.o. every morning, Hytrin hydralazine 50 mg p.o. every 8 hours, labetalol 20 mg p.o. twice daily, lisinopril 40 mg p.o. daily. Present on Admission?: Yes History of Present Illness Chief Complaint: The patient presents to the emergency department with complaint of persistent shortness of breath that began a few days ago, and family reports his dialysis session earlier in the day was cut short due to the patient feeling lightheaded and dizzy. Primary Care Provider: Mahsa Wang DO The patient is a 79-year-old male with a past medical history including closed head injury, ESRD on HD, CHF, hypoxemia, symptomatic anemia, GI bleed, hypothyroidism, hypertension, gastric antral vascular ectasia, cirrhosis, gastric AV malformation, mitral regurgitation, diabetes mellitus, hiatal hernia with GERD, IgG monoclonal gammopathy, obstructive sleep apnea, nephrotic syndrome, CAD, BPH, secondary hyperparathyroidism of renal origin and COPD. He presents the emergency department with generalized fatigue, persistent lower extremity edema and shortness of breath and reportedly had his dialysis treatment earlier in the day cut short due to issues with fatigue and dizziness and lightheadedness. He was seen in the ED for a fall 4 days ago. Allergies Allergy/AdvReac Type Severity Reaction Status Date / Time sucralfate [From Carafate] Allergy Mild upset Verified 07/20/19 23:38 dialysis tramadol AdvReac Severe disorented Verified 07/20/19 23:38 ,falling down metformin AdvReac Intermediate CONFUSION Verified 07/20/19 23:38 Home Medications Home Medications Medication Instructions Recorded Confirmed Type tamsulosin 0.4 mg PO HS #90 cap 01/02/19 07/23/19 Rx docusate sodium 100 mg capsule 200 mg PO QAM #30 cap 01/19/19 07/23/19 Rx gabapentin 100 mg capsule 200 mg PO HS #60 cap 02/04/19 07/23/19 Rx levothyroxine 200 mcg PO QAM 02/15/19 07/23/19 History Boost Glucose Control 1 ea PO TIDM 03/18/19 07/23/19 History insulin detemir U-100 100 unit/mL 15 units SUBCUT HS ml 03/25/19 07/23/19 History subcutaneous solution rosuvastatin 20 mg PO HS 04/07/19 07/23/19 History pantoprazole 40 mg PO BID 04/25/19 07/23/19 History Renal Caps 1 cap PO QDL 05/23/19 07/23/19 History calcium acetate(phosphat bind) 667 2,001 mg PO TIDM tab 06/02/19 07/23/19 History mg tablet hydralazine 25 mg tablet 50 mg PO Q8H tab 06/02/19 07/23/19 History insulin aspart U-100 [Novolog 0 sliding scale dose SUBCUT 06/06/19 07/23/19 History U-100 Insulin aspart] USEASDIRECTD labetalol 200 mg PO BID 06/06/19 07/23/19 History amlodipine 10 mg PO HS 06/13/19 07/23/19 History doxazosin [Cardura] 1 mg PO QAM 06/23/19 07/23/19 History ferrous sulfate 325 mg (65 mg 325 mg PO BID #60 tab 06/26/19 07/23/19 Rx iron) tablet,delayed release cyanocobalamin 1,000 1 tab PO QDL 07/10/19 07/23/19 History mcg-salcaprozate sodium 100 mg tablet folic acid 1 mg tablet 1 mg PO QAM 07/10/19 07/23/19 History bumetanide 1 mg tablet 2 mg PO BID #120 tab 07/16/19 07/23/19 Rx darbepoetin rasheed in polysorbat 60 mcg SUBCUT USEASDIRECTD 07/19/19 07/23/19 History levothyroxine 100 mcg PO QAM 07/19/19 07/23/19 History octreotide acetate 50 mcg SQ Q8H 30 Days #90 ml 07/20/19 07/23/19 Rx lisinopril 40 mg PO DAILY 07/23/19 07/23/19 History Past Med/Surg History Medical History Acute blood loss anemia Anxiety Arthritis Asthma AVF (arteriovenous fistula) left arm BPH (benign prostatic hyperplasia) CAD (coronary artery disease) Chronic diastolic congestive heart failure Chronic kidney disease, stage IV (severe) dialysis - [facility], [facility] with dr herrera Colon, diverticulosis 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, with long-term current use of insulin COPD (chronic obstructive pulmonary disease) Depression Diabetic peripheral neuropathy 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) (Acute) GERD (gastroesophageal reflux disease) Hearing difficulty Hyperlipidemia LDL goal <70 Hypnic jerks Memory loss Mitral regurgitation Obstructive sleep apnea uses oxygen 2 l nc at Pulmonary hypertension Secondary hyperparathyroidism of renal origin Uncontrolled daytime somnolence sleeps thru day and cant sleep at [facility] Surgical History H/O cardiac catheterization many years ago - over 10 years no stents follow with trung H/O esophagogastroduodenoscopy 02/16/19 and 03/2019 [facility]- Dr. Mando White. 50mg propofol, no issues. H/O hemorrhoidectomy History of esophagogastroduodenoscopy (EGD) x 2 at [facility] during admission from 05/23/19-05/30/19 Hx of cholecystectomy Family History Unknown Myocardial infarction Diabetes Mother Diabetes Gallbladder disease Hypertension Breast cancer late 70s Father Diabetes Hypertension Brother Diabetes Hypertension Kidney disease Denies family history of Ovarian cancer Prostate cancer Lung cancer Colorectal cancer Social History Preferred Language: Bengali Communication Ability: Effective Visual Impairment: No Limitations Hearing Ability: Hard of Hearing Configuration Technician Required: No Beliefs That Will Affect Care: None marital status: Current Living Situation: Spouse current occupational status: disabled current occupation: works part-time at [employer] Other Information That Helps Us Care for You: Yes Feels Safe at Home: Yes Safety Concerns: Feels Safe At This Time Smoking Status: Former smoker Tobacco Type: cigarettes ; Number of Years Since Quit: 25 ; Second Hand Exposure: No ; Hx Alcohol Use: No Hx Substance Use: No Childhood Exposure to Second-Hand Smoke: No Diet Comment: regular caffeine: Yes during the past year weight has: remained stable Dental Care, Regularly: Yes Physical Activity Frequency: Does not Exercise Physical Activity Frequency Comment: limited due physical condition Seatbelt Use: sometimes Sunscreen Use: No Review of Systems Review of Systems: The patient denies chest pain, palpitations, cough, sore throat, fevers, chills, sweats, nausea, vomiting, diarrhea , constipation, abdominal pain, pelvic pain, blood in urine or stool, dysuria, urinary frequency or urgency, loss of consciousness, rash, abnormal bruising or bleeding, imbalance, focal weakness, numbness or tingling in arms or legs, generalized arthralgias or myalgias, back or neck pain, or night sweats. The review of systems is otherwise negative other than for that already noted above, and at least 10 systems have been reviewed. Physical Exam Physical Exam: The patient is awake, alert and oriented 3, looks fatigued, normocephalic and atraumatic, sitting upright on the edge of the bed and in no acute distress. HEENT--PERRL, EOMI, mucous membranes and oropharynx dry. Neck--supple. No JVD. No bruits. Thyroid normal, trachea midline, no hunter opathy. Heart--normal S1 and S2. No murmurs, rubs or gallops. Lungs--clear bilaterally, no respiratory distress, no accessory muscle use. Abdomen--normal bowel sounds and soft. Nontender. Nondistended. Mildly tympanitic. Extremities--no cyanosis or clubbing. 3+ bilateral pretibial pitting edema. Dermatologic--normal skin turgor, normal color. Neurologic--cranial nerves II through XII grossly intact. Rheumatologic--normal range of motion. Psychiatric--normal affect. Results & Data Vital Signs (Past 12 Hours) Vital Signs Temp Pulse Pulse Resp BP BP Pulse Ox 07/23/19 18:54 60 18 163/54 H 95 07/23/19 17:46 96 07/23/19 17:09 84 L 07/23/19 16:57 98.1 F 62 20 165/58 H 92 Laboratory Results Laboratory Results WBC 3.43 K/uL (4.8-10.8) L 07/23/19 18:17 RBC 2.16 M/uL (4.7-6.1) L 07/23/19 18:17 Hgb 6.5 g/dL (14.0-18.0) L* 07/23/19 18:17 Hct 20.1 % (42-52) L* 07/23/19 18:17 MCV 93.1 fL (80-100) 07/23/19 18:17 MCH 30.1 pg (25-34) 07/23/19 18:17 MCHC 32.3 g/dL (32-36) 07/23/19 18:17 RDW Std Deviation 57.3 fL (36.4-46.3) H 07/23/19 18:17 RDW Coeff of Jose C 16.8 % (11.5-14.5) H 07/23/19 18:17 Plt Count 125 K/uL (130-400) L 07/23/19 18:17 MPV 10.2 fL (7.4-10.4) 07/23/19 18:17 Immature Gran % (Auto) 0.0 % 07/23/19 18:17 Neut % (Auto) 72.0 % 07/23/19 18:17 Lymph % (Auto) 12.0 % 07/23/19 18:17 Jack % (Auto) 9.0 % 07/23/19 18:17 Eos % (Auto) 6.4 % 07/23/19 18:17 Baso % (Auto) 0.6 % 07/23/19 18:17 Immature Gran # (Auto) 0.00 K/uL (0.00-0.02) 07/23/19 18:17 Neut # (Auto) 2.47 K/uL (1.4-6.5) 07/23/19 18:17 Lymph # (Auto) 0.41 K/uL (1.2-3.4) L 07/23/19 18:17 Jack # (Auto) 0.31 K/uL (0.11-0.59) 07/23/19 18:17 Eos # (Auto) 0.22 K/uL (0-0.5) 07/23/19 18:17 Baso # (Auto) 0.02 K/uL (0-0.2) 07/23/19 18:17 RBC Morphology Unremarkable 07/23/19 18:17 Sodium 138 mmol/L (136-145) 07/23/19 18:17 Potassium 3.8 mmol/L (3.5-5.1) 07/23/19 18:17 Chloride 98 mmol/L (98-107) 07/23/19 18:17 Carbon Dioxide 31 mmol/L (21-32) 07/23/19 18:17 Anion Gap 9.0 (3-11) 07/23/19 18:17 BUN 67 mg/dl (7-18) H 07/23/19 18:17 Creatinine 6.49 mg/dl (0.6-1.4) H* 07/23/19 18:17 Est Cr Clr Drug Dosing 11.7 ml/min 07/23/19 18:17 Est GFR ( Amer) 8.7 07/23/19 18:17 Est GFR (Non-Af Amer) 7.5 07/23/19 18:17 BUN/Creatinine Ratio 10.5 (10-20) 07/23/19 18:17 Glucose 157 mg/dl (70-99) H 07/23/19 18:17 POC Glucose 243 mg/dl (70-99) H 07/23/19 21:29 Calcium 9.0 mg/dl (8.5-10.1) 07/23/19 18:17 Total Bilirubin 0.4 mg/dl (0.2-1) 07/23/19 18:17 AST 12 U/L (15-37) L 07/23/19 18:17 ALT 17 U/L (12-78) 07/23/19 18:17 Alkaline Phosphatase 94 U/L (45-117) 07/23/19 18:17 Troponin I 0.070 ng/ml (0-0.045) H* 07/23/19 18:17 Total Protein 6.3 gm/dl (6.4-8.2) L 07/23/19 18:17 Albumin 2.8 gm/dl (3.4-5.0) L 07/23/19 18:17 Globulin 3.5 gm/dl (2.5-4.0) 07/23/19 18:17 Albumin/Globulin Ratio 0.8 (0.9-2) L 07/23/19 18:17 TSH 20.300 uIu/ml (0.300-4.500) H 07/23/19 18:17 Free T4 0.83 ng/dl (0.8-1.6) 07/23/19 18:17 Blood Type B Positive 07/23/19 18:17 Antibody Screen NEGATIVE 07/23/19 18:17 Diagnostic Findings [facility] [place] [phone] XRay Report Patient: KRIS SHARP Date: 07/23/19 MR#: [id number] Acct ID:[id number]: Date: [address] [place] [address] Zip: [place] [address] Age: 79Location: ED Sex: M Room/Bed: Att Phy:Diagnosis: LUNGS FILLED WITH FLUID - LEGS BROKEN OPEN Mamie Phy: Mahsa Wang, DOService Date: 07/23/19 Fam Phy:Interpreting Phy: Shayan Gonzalez MD Admit Phy: Ordering Phy: Terrence Brown M.D. cc: ~ SINGLE VIEW CHEST CLINICAL HISTORY: Generalized weakness. FINDINGS: An AP, portable, upright chest radiograph is compared to study dated 07/19/2019. Correlation is made with chest CT dated 10/31/2018. The examination is significantly degraded by portable technique and patient rotation. The heart is enlarged noting atherosclerotic calcification of the thoracic aorta. There is pulmonary vascular congestion. Trace pleural effusions are suspected with left basilar consolidation. No pneumothorax is seen. The skeletal structures are osteopenic. The bony thorax is grossly intact. IMPRESSION: 1. Cardiomegaly with evidence of congestive failure. 2. Suspect trace pleural effusions and left basilar consolidation. ACT 112: Negative or not required by law. Electronically signed by: Shayan Gonzalez M.D. 07/23/2019 7:01 PM Dictated: 07/23/191858 Transcribed: 07/23/191858 Code Status & VTE Plan Code Status Full code VTE Prophylaxis Plan VTE Prophylaxis will be ordered: Yes PG Care Time/CCT Total # of Minutes Spent Total Time Spent with Patient: Total time spent is greater than 50% in coordination of care (as documented) at patient's floor/unit and/or counseling patient: Coding Level of Care Code 07519 Initial Inpt Care Lvl 3 Diagnoses ESRD (end stage renal disease) N18.6 CHF (congestive heart failure) I50.9 Heart failure chronicity: unspecified Heart failure type: unspecified Weakness R53.1 Symptomatic anemia D64.9 GAVE (gastric antral vascular ectasia) K31.819 Diabetes E11.22; N18.6; Z79.4; Z99.2 Diabetes mellitus type: type 2 Diabetes mellitus termination clerk insulin use: with termination clerk use Diabetes mellitus complication status: with kidney complications Diabetes mellitus complication detail: with chronic kidney disease Chronic kidney disease stage: on chronic dialysis Hypothyroidism E03.9 Hypothyroidism type: unspecified Hypertension I15.0 Hypertension type: renovascular hypertension (1) CHF (congestive heart failure) Heart failure chronicity: unspecified Heart failure type: unspecified Qualified Code(s): I50.9 - Heart failure, unspecified (2) Diabetes Diabetes mellitus type: type 2 Diabetes mellitus termination clerk insulin use: with termination clerk use Diabetes mellitus complication status: with kidney complications Diabetes mellitus complication detail: with chronic kidney disease Chronic kidney disease stage: on chronic dialysis Qualified Code(s): E11.22 - 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
[2019-07-23] MEDS ORDERED: CARBOHYDRATES FOR HYPOGLYCEMIA PO PRN (21:24)
[2019-07-23] MEDS ORDERED: ONDANSETRON INJ 2 MG/ML 2 ML VIAL IV PRN (21:24)
[2019-07-23] MEDS ORDERED: ACETAMINOPHEN 325 MG TAB PO PRN (21:24)
[2019-07-23] MEDS ORDERED: POLYETHYLENE (MIRALAX) 17 GM PACK PO PRN (21:24)
[2019-07-23] MEDS ORDERED: INSULIN ASPART 100 UNITS/ML 3 ML PEN SC SCH (21:45)
[2019-07-23] MEDS: INSULIN ASPART 100 UNITS/ML 3 ML PEN SC SCH (22:32)
[2019-07-23] MEDS: INSULIN GLARGINE SOLOSTAR 100 UNITS/ML 3 ML PEN SC SCH (22:32)
[2019-07-23] MEDS: TAMSULOSIN HCL 0.4 MG CAP PO SCH (22:33)
[2019-07-23] MEDS: BUMETANIDE 1 MG TAB PO SCH (22:33)
[2019-07-23] MEDS: HydrALAZINE TAB 50 MG TAB PO SCH (22:33)
[2019-07-23] MEDS: ROSUVASTATIN CALCIUM 20 MG TAB PO SCH (22:33)
[2019-07-23] MEDS: FERROUS SULFATE 325 MG TAB PO SCH (22:33)
[2019-07-23] MEDS: LABETALOL HCL 200 MG TAB PO SCH (22:33)
[2019-07-23] MEDS: GABAPENTIN 100 MG CAP PO SCH (22:34)
[2019-07-23] MEDS: OCTREOTIDE ACETATE 100 MCG/ML VIAL SQ SCH (22:34)
[2019-07-23] MEDS: AMLODIPINE BESYLATE 5 MG TAB PO SCH (22:34)
[2019-07-23] MEDS: PANTOprazole 40 MG TAB PO SCH (22:34)
--- NOTE | 2019-07-24 01:06 | Emergency Department Note ---
Entered by Maggie Muhammad acting as a scribe for History of Present Illness General Chief complaint: Respiratory Problems Stated complaint: LUNGS FILLED WITH FLUID - LEGS BROKEN OPEN Time Seen by Provider: 07/23/19 17:22 Source: patient Limitations: no limitations History of Present Illness Onset (ago): day(s) (a few) Location: chest Pain Consistency: + constant Quality: + other (SOB) Exacerbated By: + other (exertion) Associated symptoms: + weakness; no chest pain The patient is a 79 year old male who presents to the Emergency Room with complaints of constant SOB that began a few days ago. He reports that two of his recent dialysis sessions were cut short, because he was feeling lightheaded and dizzy. The patient notes that he missed a recent appointment as well, stating that he gets dialysis on Tuesdays, , and Saturdays. The patient states that he had dialysis this morning. He notes that exertion exacerbates the symptoms. The patient complains that his legs are "breaking open," and he complains of lower extremity swelling. He denies any chest pain, abdominal pain, and fevers. The family notes that the patient was seen here 4 days ago for a fall, and his family notes that he's been weak for the past week. The patient reports that he's on oxygen at home. His family member, at bedside, notes that he is not on blood thinners. Home Medications Home Medications Medication Instructions Recorded Confirmed Type tamsulosin 0.4 mg PO HS #90 cap 01/02/19 07/23/19 Rx docusate sodium 100 mg capsule 200 mg PO QAM #30 cap 01/19/19 07/23/19 Rx gabapentin 100 mg capsule 200 mg PO HS #60 cap 02/04/19 07/23/19 Rx levothyroxine 200 mcg PO QAM 02/15/19 07/23/19 History Boost Glucose Control 1 ea PO TIDM 03/18/19 07/23/19 History insulin detemir U-100 100 unit/mL 15 units SUBCUT HS ml 03/25/19 07/23/19 History subcutaneous solution rosuvastatin 20 mg PO HS 04/07/19 07/23/19 History pantoprazole 40 mg PO BID 04/25/19 07/23/19 History Renal Caps 1 cap PO QDL 05/23/19 07/23/19 History calcium acetate(phosphat bind) 667 2,001 mg PO TIDM tab 06/02/19 07/23/19 Histo ry mg tablet hydralazine 25 mg tablet 50 mg PO Q8H tab 06/02/19 07/23/19 History insulin aspart U-100 [Novolog 0 sliding scale dose SUBCUT 06/06/19 07/23/19 History U-100 Insulin aspart] USEASDIRECTD labetalol 200 mg PO BID 06/06/19 07/23/19 History amlodipine 10 mg PO HS 06/13/19 07/23/19 History doxazosin [Cardura] 1 mg PO QAM 06/23/19 07/23/19 History ferrous sulfate 325 mg (65 mg 325 mg PO BID #60 tab 06/26/19 07/23/19 Rx iron) tablet,delayed release cyanocobalamin 1,000 1 tab PO QDL 07/10/19 07/23/19 History mcg-salcaprozate sodium 100 mg tablet folic acid 1 mg tablet 1 mg PO QAM 07/10/19 07/23/19 History bumetanide 1 mg tablet 2 mg PO BID #120 tab 07/16/19 07/23/19 Rx darbepoetin rasheed in polysorbat 60 mcg SUBCUT USEASDIRECTD 07/19/19 07/23/19 History levothyroxine 100 mcg PO QAM 07/19/19 07/23/19 History octreotide acetate 50 mcg SQ Q8H 30 Days #90 ml 07/20/19 07/23/19 Rx lisinopril 40 mg PO DAILY 07/23/19 07/23/19 History Allergies Allergy/AdvReac Type Severity Reaction Status Date / Time sucralfate [From Carafate] Allergy Mild upset Verified 07/20/19 23:38 dialysis tramadol AdvReac Severe disorented Verified 07/20/19 23:38 ,falling down metformin AdvReac Intermediate CONFUSION Verified 07/20/19 23:38 Past Med/Surg History Medical History Acute blood loss anemia Anxiety Arthritis Asthma AVF (arteriovenous fistula) left arm BPH (benign prostatic hyperplasia) CAD (coronary artery disease) Chronic diastolic congestive heart failure Chronic kidney disease, stage IV (severe) dialysis - [facility], sat at [place] follow with dr herrera Colon, diverticulosis 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, with long-term current use of insulin COPD (chronic obstructive pulmonary disease) Depression Diabetic peripheral neuropathy 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) (Acute) GERD (gastroesophageal reflux disease) Hearing difficulty Hyperlipidemia LDL goal <70 Hypnic jerks Memory loss Mitral regurgitation Obstructive sleep apnea uses oxygen 2 l nc at Pulmonary hypertension Secondary hyperparathyroidism of renal origin Uncontrolled daytime somnolence sleeps thru day and cant sleep at [facility] Surgical History H/O cardiac catheterization many years ago - over 10 years no stents follow with trung H/O esophagogastroduodenoscopy 02/16/19 and 03/2019 [facility]- Dr. Mando White. 50mg propofol, no issues. H/O hemorrhoidectomy History of esophagogastroduodenoscopy (EGD) x 2 at [facility] during admission from 05/23/19-05/30/19 Hx of cholecystectomy Family History Unknown Myocardial infarction Diabetes Mother Diabetes Gallbladder disease Hypertension Breast cancer late 70s Father Diabetes Hypertension Brother Diabetes Hypertension Kidney disease Denies family history of Ovarian cancer Prostate cancer Lung cancer Colorectal cancer Social History Preferred Language: Bolivian Communication Ability: Effective Visual Impairment: No Limitations Hearing Ability: Hard of Hearing Top Precipitator Operator Required: No Beliefs That Will Affect Care: None marital status: Current Living Situation: Spouse current occupational status: disabled current occupation: works part-time at [employer] Other Information That Helps Us Care for You: Yes Feels Safe at Home: Yes Safety Concerns: Feels Safe At This Time Smoking Status: Former smoker Tobacco Type: cigarettes ; Number of Years Since Quit: 25 ; Second Hand Exposure: No ; Hx Alcohol Use: No Hx Substance Use: No Childhood Exposure to Second-Hand Smoke: No Diet Comment: regular caffeine: Yes during the past year weight has: remained stable Dental Care, Regularly: Yes Physical Activity Frequency: Does not Exercise Physical Activity Frequency Comment: limited due physical condition Seatbelt Use: sometimes Sunscreen Use: No Review of Systems See HPI for pertinent positives & negatives. and A total of 10 systems reviewed and were otherwise negative Physical Exam Vital Signs Vital Signs - 24 hr 07/23/19 16:57 07/23/19 17:09 07/23/19 17:46 Temperature 36.7 C Temperature Source Oral Pulse Rate 62 Pulse Rate [Apical] Pulse Rhythm [Apical] Pulse Strength [Apical] Respiratory Rate 20 Respiratory Effort / Characteristics Short of Breath Respiratory Depth Respiratory Pattern Blood Pressure 165/58 H Blood Pressure [Right Arm] Blood Pressure Mean 93 Blood Pressure Mean [Right Arm] Blood Pressure Position Sitting Blood Pressure Position [Right Arm] Pulse Oximetry 92 84 L 96 Oxygen Delivery Method Room Air Nasal Cannula Oxygen Flow Rate 2 Sepsis Recent Fever Within 48 Hours No Sepsis New/Unexplained Change in Mental Status No Sepsis Action Taken by Nursing No Action Required Oxygen Flow Rate - Titration 2 07/23/19 18:54 Temperature Temperature Source Pulse Rate Pulse Rate [Apical] 60 Pulse Rhythm [Apical] Regular Pulse Strength [Apical] Normal Respiratory Rate 18 Respiratory Effort / Characteristics Non-Labored Spontaneous Respiratory Depth Normal Respiratory Pattern Regular Blood Pressure Blood Pressure [Right Arm] 163/54 H Blood Pressure Mean Blood Pressure Mean [Right Arm] 90 Blood Pressure Position Blood Pressure Position [Right Arm] Lying Pulse Oximetry 95 Oxygen Delivery Method Nasal Cannula Oxygen Flow Rate 2 Sepsis Recent Fever Within 48 Hours Sepsis New/Unexplained Change in Mental Status Sepsis Action Taken by Nursing Oxygen Flow Rate - Titration General: Chronically-ill appearing older male in no acute distress. Resting comf ortably on supplemental oxygen. In triage, he was 84%, but was in the 90%s on 2 liters. HEENT: Normal cephalic atraumatic. Pupils are equal round and reactive to light. Extraocular movements are intact. Oropharynx is pink with moist mucous membranes. No swelling of the mouth lips or tongue. Neck: Supple with a midline trachea. No meningeal signs or stiffness, no JVD or bruits. No Stridor. Chest: Clear to auscultation bilaterally. No wheezes or rhonchi. No increased work of breathing. Heart: regular rate and rhythm. Abdomen: Soft nontender, nondistended without rebound guarding or rigidity. Extremities: No cyanosis or clubbing. No calf tenderness or asymmetry. Fistula on the left arm. 1+ bilateral lower extremity edema. Spine/Back. Non tender to palpation. No CVA tenderness Skin: Good turgor without rashes. Neurologic exam: Cranial nerves two through 12 are intact. Motor and sensation are intact and symmetrical throughout. Course Course 1722: The patient was evaluated in room B11B. A complete history and physical exam was performed. 1907: I spoke with Dr. Ashby, [facility] hospitalist, about the patients case. He will further evaluate the patient. 1913: I reassessed the patient, and he was resting comfortably. Administered Medications Amlodipine Besylate (Norvasc) 10 mg PO HS SHANTA Stop: 08/22/19 21:23 Last Admin: 07/23/19 22:34 Dose: 10 mg Documented by: [id number] Bumetanide (Bumex) 2 mg PO BID SHANTA Stop: 08/22/19 21:23 Last Admin: 07/23/19 22:33 Dose: 2 mg Documented by: [id number] Ferrous Sulfate (Feosol) 325 mg PO BID SHANTA Stop: 08/22/19 21:23 Last Admin: 07/23/19 22:33 Dose: 325 mg Documented by: [id number] Gabapentin (Neurontin) 200 mg PO HS SHANTA Stop: 08/22/19 21:23 Last Admin: 07/23/19 22:34 Dose: 200 mg Documented by: [id number] Hydralazine HCl (Apresoline) 50 mg PO Q8H SHANTA Stop: 08/22/19 21:59 Last Admin: 07/23/19 22:33 Dose: 50 mg Documented by: [id number] Insulin Aspart (Novolog Flexpen) 0 units SC ACHS SHANTA Stop: 08/22/19 20:59 Last Admin: 07/23/19 22:32 Dose: 4 units Documented by: [id number] Cosigned by: [id number] Insulin Glargine (Lantus Solostar Pen) 15 units SC HS SHANTA Stop: 08/22/19 21:29 Last Admin: 07/23/19 22:32 Dose: 15 units Documented by: [id number] Cosigned by: [id number] Labetalol HCl (Normodyne) 200 mg PO BID SHANTA Stop: 08/22/19 21:23 Last Admin: 07/23/19 22:33 Dose: 200 mg Documented by: [id number] Octreotide Acetate (Sandostatin) 50 mcg SQ Q8H SHANTA Stop: 08/22/19 21:59 Last Admin: 07/23/19 22:34 Dose: 50 mcg Documented by: [id number] Pantoprazole Sodium (Protonix) 40 mg PO BID SHANTA Stop: 08/22/19 21:23 Last Admin: 07/23/19 22:34 Dose: 40 mg Documented by: [id number] Rosuvastatin Calcium (Crestor) 20 mg PO HS SHANTA Stop: 08/22/19 21:23 Last Admin: 07/23/19 22:33 Dose: 20 mg Documented by: [id number] Tamsulosin HCl (Flomax) 0.4 mg PO HS SHANTA Stop: 08/22/19 21:23 Last Admin: 07/23/19 22:33 Dose: 0.4 mg Documented by: [id number] Medical Decision Making Differential Diagnosis The differential diagnosis includes: CHF, anemia, infection, electrolyte or metabolic abnormality, and cardiac disease Medical Records Attestation: I reviewed the patient's medical records. Home Medications Current Medication List: was personally reviewed by me Laboratory Data Attestation: I reviewed the patient's lab results. Result diagrams: 07/23/19 18:17 07/23/19 18:17 Lab Results 07/23/19 07/23/19 07/23/19 Range/Units 18:17 18:17 18:17 WBC 3.43 L (4.8-10.8) K/uL RBC 2.16 L (4.7-6.1) M/uL Hgb 6.5 L* (14.0-18.0) g/dL Hct 20.1 L* (42-52) % MCV 93.1 (80-100) fL MCH 30.1 (25-34) pg MCHC 32.3 (32-36) g/dL RDW Std Deviation 57.3 H (36.4-46.3) fL RDW Coeff of Jose C 16.8 H (11.5-14.5) % Plt Count 125 L (130-400) K/uL MPV 10.2 (7.4-10.4) fL Immature Gran % (Auto) 0.0 % Neut % (Auto) 72.0 % Lymph % (Auto) 12.0 % Sawyer % (Auto) 9.0 % Eos % (Auto) 6.4 % Baso % (Auto) 0.6 % Immature Gran # (Auto) 0.00 (0.00-0.02) K/uL Neut # (Auto) 2.47 (1.4-6.5) K/uL Lymph # (Auto) 0.41 L (1.2-3.4) K/uL Sawyer # (Auto) 0.31 (0.11-0.59) K/uL Eos # (Auto) 0.22 (0-0.5) K/uL Baso # (Auto) 0.02 (0-0.2) K/uL RBC Morphology Unremarkable Sodium 138 (136-145) mmol/L Potassium 3.8 (3.5-5.1) mmol/L Chloride 98 (98-107) mmol/L Carbon Dioxide 31 (21-32) mmol/L Anion Gap 9.0 (3-11) BUN 67 H (7-18) mg/dl Creatinine 6.49 H* (0.6-1.4) mg/dl Est Cr Clr Drug Dosing 11.7 ml/min Est GFR ( Amer) 8.7 Est GFR (Non-Af Amer) 7.5 BUN/Creatinine Ratio 10.5 (10-20) Glucose 157 H (70-99) mg/dl Calcium 9.0 (8.5-10.1) mg/dl Total Bilirubin 0.4 (0.2-1) mg/dl AST 12 L (15-37) U/L ALT 17 (12-78) U/L Alkaline Phosphatase 94 (45-117) U/L Troponin I 0.070 H* (0-0.045) ng/ml Total Protein 6.3 L (6.4-8.2) gm/dl Albumin 2.8 L (3.4-5.0) gm/dl Globulin 3.5 (2.5-4.0) gm/dl Albumin/Globulin Ratio 0.8 L (0.9-2) TSH 20.300 H (0.300-4.500) uIu/ml Free T4 0.83 (0.8-1.6) ng/dl Blood Type B Positive Antibody Screen NEGATIVE Imaging Data Radiologist's Impression: Radiology results as stated below per my review and the radiologist's interpretation: SINGLE VIEW CHEST CLINICAL HISTORY: Generalized weakness. FINDINGS: An AP, portable, upright chest radiograph is compared to study dated 07/19/2019. Correlation is made with chest CT dated 10/31/2018. The examination is significantly degraded by portable technique and patient rotation. The heart is enlarged noting atherosclerotic calcification of the thoracic aorta. There is pulmonary vascular congestion. Trace pleural effusions are suspected with left basilar consolidation. No pneumothorax is seen. The skeletal structures are osteopenic. The bony thorax is grossly intact. IMPRESSION: 1. Cardiomegaly with evidence of congestive failure. 2. Suspect trace pleural effusions and left basilar consolidation. ACT 112: Negative or not required by law. Electronically signed by: Shayan Gonzalez M.D. 07/23/2019 7:01 PM ECG Data Attestation: I personally reviewed and interpreted this ECG as follows: Indication: + SOB/dyspnea Rate (beats per minute): 59 Rhythm: + sinus bradycardia ECG Intervals/blocks: + Right Bundle branch block ECG ST segments: + Nonspecific ST abnormalities Comparison ECG Date: from (07/18/19) Change: no significant change Blood Pressure Blood Pressure Findings: Elevated blood pressure Blood Pressure Disposition: further management by hospitalist BJ Narrative This patient comes in as described above. He was placed in room B 11. He has a complex medical history and I do know him well from multiple previous visits. He has a history of chronic GI blood loss. He was transfused earlier this week. He does receive dialysis on Saturday, , and Saturday. He did receive dialysis today but then to stop early because he did not feel well. He was hypoxemic in triage. he was placed on oxygen and he is in the mid 90s and does not appear acutely ill. IV asked established blood work was obtained. he was typed and screened. His hemoglobin is back down to 6.5. Chest x-ray does show some congestive heart failure changes and I do think that he is still a bit fluid overloaded. I do think he needs to be admitted/observed and will likely need a blood transfusion while he is being dialyzed in the morning. His trop onin is also mildly elevated but he has no chest pain or acute EKG changes. He does need to be admitted/observed. I have consulted Dr. Mckeon. Impression & Plan Anemia, ESRD (end stage renal disease), CHF (congestive heart failure), Weakness, Elevated troponin, Hypoxemia Discharge Plan Visit Data *Final* Discharge Date/Time: 07/23/19 21:14 Chief Complaint: Respiratory Problems Stated Complaint: LUNGS FILLED WITH FLUID - LEGS BROKEN OPEN ED Provider: Terrence Brown Discharge Problem: Anemia, ESRD (end stage renal disease), CHF (congestive heart failure), Weakness, Elevated troponin, Hypoxemia Patient Disposition: Admitted As Inpatient Discharge Instructions Interventions: ED Discharge Assessment Last Done: 07/23/19 21:14 Discharge Problem: Anemia Qualifiers: Anemia type: unspecified type Qualified Code(s): D64.9 - Anemia, unspecified CHF (congestive heart failure) Qualifiers: Heart failure type: unspecified Heart failure chronicity: unspecified Qualified Code(s): I50.9 - Heart failure, unspecified The scribe's documentation has been prepared under my direction and personally reviewed by me in its entirety. I confirm that the note above accurately reflects all work, treatment, procedures, and medical decision making performed by me.
[2019-07-24] MEDS: HydrALAZINE TAB 50 MG TAB PO SCH ×3 (05:45→22:18)
[2019-07-24] MEDS: OCTREOTIDE ACETATE 100 MCG/ML VIAL SQ SCH ×3 (05:45→22:17)
[2019-07-24] MEDS: LEVOTHYROXINE SODIUM 100 MCG TABLET PO SCH (05:45)
[2019-07-24] MEDS: LEVOTHYROXINE SODIUM 200 MCG TABLET PO SCH (05:45)
[2019-07-24 07:07] LABS: Hematocrit (blood only) 18.5 % (42-52); Hemoglobin 5.9 g/dL (14.0-18.0); Mean Corpuscular Hemoglobin 30.1 pg (25-34); Mean Corpuscular Hgb Conc 31.9 g/dL (32-36); Mean Corpuscular Volume 94.4 fL (80-100); Platelet Count 125 K/uL (130-400); RDW Coefficient of Variation 16.8 % (11.5-14.5); RDW Standard Deviation 57.9 fL (36.4-46.3); Red Blood Count 1.96 M/uL (4.7-6.1); White Blood Count 3.78 K/uL (4.8-10.8)
[2019-07-24 07:21] LABS: Basophilic Stippling 1+; Basophils # (auto) 0.04 K/uL (0-0.2); Basophils % (auto) 1.1 %; Eosinophils # (auto) 0.25 K/uL (0-0.5); Eosinophils % (auto) 6.6 %; Lymphocytes # (auto) 0.53 K/uL (1.2-3.4); Monocytes # (auto) 0.32 K/uL (0.11-0.59); Monocytes % (auto) 8.5 %; Neutrophils # (auto) 2.64 K/uL (1.4-6.5); Neutrophils % (auto) 69.8 %; Polychromasia 1+
[2019-07-24] MEDS ORDERED: SODIUM CHLORIDE 0.9% 1000ML 1,000 ML IV PRN (07:28)
[2019-07-24] MEDS ORDERED: SODIUM CHLORIDE 0.9% 250 ML IV PRN (07:33)
[2019-07-24 07:41] LABS: Albumin Level 2.6 gm/dl (3.4-5.0); BUN Creatinine Ratio 10.5 (10-20); Calcium 8.4 mg/dl (8.5-10.1); Creatinine Clr Calc Pharmacy 10.3 ml/min; Est GFR (African American) 7.5; Est GFR (Non-African American) 6.4; Magnesium 1.8 mg/dl (1.8-2.4); Phosphorus 5.2 mg/dl (2.5-4.9); Potassium 3.7 mmol/L (3.5-5.1)
[2019-07-24] MEDS ORDERED: [UNRECOGNIZED DRUG - OTHER] PO SCH (08:00)
[2019-07-24 08:09] LABS: Estimated Average Glucose 108 mg/dl; Hemoglobin A1C 5.4 % (4.5-5.6)
[2019-07-24] MEDS: CALCIUM ACETATE 667 MG CAP PO SCH ×3 (08:34→17:34)
[2019-07-24] MEDS: INSULIN ASPART 100 UNITS/ML 3 ML PEN SC SCH ×4 (08:36→20:56)
[2019-07-24] MEDS: FOLIC ACID 1 MG TAB PO SCH (08:37)
[2019-07-24] MEDS: DOCUSATE SODIUM 100 MG CAP PO SCH (08:37)
[2019-07-24] MEDS: lisinopriL 40 MG TAB PO SCH (08:37)
[2019-07-24] MEDS: FERROUS SULFATE 325 MG TAB PO SCH ×2 (08:37→20:52)
[2019-07-24] MEDS: PANTOprazole 40 MG TAB PO SCH ×2 (08:38→20:55)
[2019-07-24] MEDS: DOXAZOSIN MESYLATE 1 MG TAB PO SCH (08:38)
[2019-07-24] MEDS: BUMETANIDE 1 MG TAB PO SCH ×2 (08:38→20:53)
[2019-07-24] MEDS: LABETALOL HCL 200 MG TAB PO SCH ×2 (08:38→20:54)
--- NOTE | 2019-07-24 10:51 | Nephrology Consultation ---
Date of Consultation July 24, 2019 Assessment & Plan (1) ESRD (end stage renal disease): End-stage renal disease, on hemodialysis TTS admitted again to the hospital in 3 days after last discharge with symptomatic anemia secondary to GI bleeding. Hemoglobin was 6.5 on admission, received 2 units of blood transfusion and 5.9 this morning. Blood pressure, electrolyte acceptable. Volume overloaded --HD today, 3 L UF --2 PRBC with HD --dialysis again on Saturday as his regular schedule, plan for 3 L of UF to improve his volume status and get close to his dry weight. --has been on high dose of NEMESIO --oral phosphate binder and renal cap daily --dose meds for GFR <10 --left arm nephrology percussion ( AVF) Will follow Thank you for allowing me to participate in your patient's care. (2) Anemia: (3) Volume overload: History of Present Illness Attending Physician: Stephen Gold MD History of Present Illness Don present to the hospital yesterday evening with volume overload, missed dialysis, dyspnea on exertion and overall not feeling well after getting discharged 3 days ago. Admission hemoglobin was 6.5, received 2 units of blood transfusion but hemoglobin dropped to 5.9 this morning. Has history of chronic GI bleeding with gastric AVM, and has been having frequent hospital admission with GI bleeding, low hemoglobin and dyspnea on exertion. Had multiple EGD, colonoscopy over last few months. Recently had a capsule endoscopy. GI has been closely following and there was plan to do weekly hemoglobin on Saturday and scheduled for blood transfusion every 2 weeks. Last admitted on 07/20/19 and DC following day after 2 PRBC and Hb >8. Has end-stage renal disease on hemodialysis on Saturday, day and Saturday. Last dialysis was yesterday but had shortened Rx as he was not feelign well. Missed HD on Saturday and has been volume overloaded with worsening LE edema. AV fistula has been functioning well. He has been getting [facility] dialysis unit at 225 milligram every 2 weeks and getting Venofer as well. Currently he feels better, denies any specific symptom however frustrated to be in hospital in going through different procedures repeatedly. Allergies Allergy/AdvReac Type Severity Reaction Status Date / Time sucralfate [From Carafate] Allergy Mild upset Verified 02/17/20 23:38 dialysis tramadol AdvReac Severe disorented Verified 07/20/19 23:38 ,falling down metformin AdvReac Intermediate CONFUSION Verified 07/20/19 23:38 Home Medications Home Medications Medication Instructions Recorded Confirmed Type tamsulosin 0.4 mg PO HS #90 cap 01/02/19 07/23/19 Rx docusate sodium 100 mg capsule 200 mg PO QAM #30 cap 01/19/19 07/23/19 Rx gabapentin 100 mg capsule 200 mg PO HS #60 cap 02/04/19 07/23/19 Rx levothyroxine 200 mcg PO QAM 02/15/19 07/23/19 History Boost Glucose Control 1 ea PO TIDM 03/18/19 07/23/19 History insulin detemir U-100 100 unit/mL 15 units SUBCUT HS ml 03/25/19 07/23/19 History subcutaneous solution rosuvastatin 20 mg PO HS 04/07/19 07/23/19 History pantoprazole 40 mg PO BID 04/25/19 07/23/19 History Renal Caps 1 cap PO QDL 05/23/19 07/23/19 History calcium acetate(phosphat bind) 667 2,001 mg PO TIDM tab 06/02/19 07/23/19 History mg tablet hydralazine 25 mg tablet 50 mg PO Q8H tab 06/02/19 07/23/19 History insulin aspart U-100 [Novolog 0 sliding scale dose SUBCUT 06/06/19 07/23/19 History U-100 Insulin aspart] USEASDIRECTD labetalol 200 mg PO BID 06/06/19 07/23/19 History amlodipine 10 mg PO HS 06/13/19 07/23/19 History doxazosin [Cardura] 1 mg PO QAM 06/23/19 07/23/19 History ferrous sulfate 325 mg (65 mg 325 mg PO BID #60 tab 06/26/19 07/23/19 Rx iron) tablet,delayed release cyanocobalamin 1,000 1 tab PO QDL 07/10/19 07/23/19 History mcg-salcaprozate sodium 100 mg tablet folic acid 1 mg tablet 1 mg PO QAM 07/10/19 07/23/19 History bumetanide 1 mg tablet 2 mg PO BID #120 tab 07/16/19 07/23/19 Rx darbepoetin rasheed in polysorbat 60 mcg SUBCUT USEASDIRECTD 07/19/19 07/23/19 History levothyroxine 100 mcg PO QAM 07/19/19 07/23/19 History octreotide acetate 50 mcg SQ Q8H 30 Days #90 ml 07/20/19 07/23/19 Rx lisinopril 40 mg PO DAILY 07/23/19 07/23/19 History Patient History Medical History Acute blood loss anemia Anxiety Arthritis Asthma AVF (arteriovenous fistula) left arm BPH (benign prostatic hyperplasia) CAD (coronary artery disease) Chronic diastolic congestive heart failure Chronic kidney disease, stage IV (severe) dialysis - [facility], sat at [place] follow with dr herrera Colon, diverticulosis 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, with long-term current use of insulin COPD (chronic obstructive pulmonary disease) Depression Diabetic peripheral neuropathy 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) (Acute) GERD (gastroesophageal reflux disease) Hearing difficulty Hyperlipidemia LDL goal <70 Hypnic jerks Memory loss Mitral regurgitation Obstructive sleep apnea uses oxygen 2 l nc at Pulmonary hypertension Secondary hyperparathyroidism of renal origin Uncontrolled daytime somnolence sleeps thru day and cant sleep at [facility] Surgical History H/O cardiac catheterization many years ago - over 10 years no stents follow with trung H/O esophagogastroduodenoscopy 02/16/19 and 03/2019 [facility]- Dr. Mando White. 50mg propofol, no issues. H/O hemorrhoidectomy History of esophagogastroduodenoscopy (EGD) x 2 at [facility] during admission from 05/23/19-05/30/19 Hx of cholecystectomy Family History Unknown Myocardial infarction Diabetes Mother Diabetes Gallbladder disease Hypertension Breast cancer late 70s Father Diabetes Hypertension Brother Diabetes Hypertension Kidney disease Denies family history of Ovarian cancer Prostate cancer Lung cancer Colorectal cancer Social History Preferred Language: Monegasque Communication Ability: Effective Visual Impairment: No Limitations Hearing Ability: Hard of Hearing Inventory Technician Required: No Beliefs That Will Affect Care: None marital status: Current Living Situation: Spouse current occupational status: disabled current occupation: works part-time at [employer] Other Information That Helps Us Care for You: Yes Feels Safe at Home: Yes Safety Concerns: Feels Safe At This Time Smoking Status: Former smoker Tobacco Type: cigarettes ; Number of Years Since Quit: 25 ; Second Hand Exposure: No ; Hx Alcohol Use: No Hx Substance Use: No Childhood Exposure to Second-Hand Smoke: No Diet Comment: regular caffeine: Yes during the past year weight has: remained stable Dental Care, Regularly: Yes Physical Activity Frequency: Does not Exercise Physical Activity Frequency Comment: limited due physical condition Seatbelt Use: sometimes Sunscreen Use: No Review of Systems Review of Systems: All systems reviewed & are unremarkable except as noted in HPI & below Physical Exam Constitutional: WD/WN, vitals as above + ill appearing; no acute distress Eyes: PERRL, conjunctivae normal, anicteric sclerae ENMT: external ear and nose normal, oropharynx normal Ears: no hearing impairment Neck: trachea midline Respiratory: normal respiratory effort, lungs clear to auscultation no cough Auscultation: no crackles, no rales and no wheezes Cardiovascular: Rate/Rhythm: regular rate and regular rhythm Heart Sounds: normal S1 and normal S2 Extremities: + edema and + AV fistula Gastrointestinal (Abdomen): normal bowel sounds, soft, nontender, no hepatosplenomegaly Percussion/Palpation: abdomen nontender, no guarding and abdomen not rigid Musculoskeletal: Extremities: extremities normal to inspection Gait: normal gait Skin: no rashes, warm and dry Neurologic: moves all extremities and awake Psychiatric: A+Ox3, euthymic affect Results & Data Vital Signs (Past 12 Hours) Vital Signs Temp Pulse Pulse Pulse Resp BP BP 07/24/19 10:40 51 L 175/63 H 07/24/19 10:29 36.7 C 52 L 16 155/63 H 07/24/19 10:20 52 L 155/63 H 07/24/19 10:00 51 L 178/67 H 07/24/19 09:40 53 L 163/69 H 07/24/19 09:37 36.6 C 51 L 16 155/64 H 07/24/19 09:20 51 L 155/64 H 07/24/19 09:10 36.6 C 53 L 07/24/19 07:26 56 L 07/24/19 06:59 36.7 C 57 L 19 147/65 H 07/24/19 04:16 36.6 C 56 L 20 156/68 H 07/23/19 23:11 37.0 C 60 20 176/50 H 07/23/19 23:00 76 Pulse Ox 07/24/19 10:40 07/24/19 10:29 98 07/24/19 10:20 07/24/19 10:00 07/24/19 09:40 07/24/19 09:37 07/24/19 09:20 07/24/19 09:10 07/24/19 07:26 07/24/19 06:59 90 07/24/19 04:16 93 07/23/19 23:11 92 07/23/19 23:00 PG Care Time/CCT Total # of Minutes Spent Total Time Spent with Patient: Total time spent is greater than 50% in coordination of care (as documented) at patient's floor/unit and/or counseling patient: Coding Level of Care Code 81647 Inpt Consult Level 5 Diagnoses ESRD (end stage renal disease) N18.6 Anemia D64.9 Anemia type: unspecified type Volume overload E87.70 (1) Anemia Anemia type: unspecified type Qualified Code(s): D64.9 - Anemia, unspecified
--- NOTE | 2019-07-24 13:26 | Hospitalist Progress Note ---
Date of Service July 24, 2019 Assessment & Plan (1) ESRD (end stage renal disease): ESRD on HD. He frequently misses episodes because he feels "tired" or doesn't feel well. - HD today and per patient, tomorrow. - Will get blood with HD today. (2) Symptomatic anemia: Multifactorial from chronic disease, ESRD, and GI bleeding. - Will get 2 units PRBCs with dialysis tomorrow - Monitor tomorrow (3) CHF (congestive heart failure): Do not believe this is CHF. He has volume overload related to his kidney failure and aneuria. This is not diastolic heart failure. (4) GAVE (gastric antral vascular ectasia): Has had numerous EGDs with laser ablation for GAVE. Last EGD was on 07/20/2019. - Continue pantoprazole BID - Monitor for bleeding -> None seen today. (5) Diabetes: A1c was 5.4% this admission. - Sliding scale insulin (6) Hypothyroidism: - Continue levothyroxine 30 mcg every morning (7) Hypertension: Often has high BPs in the hospital. Today BP is 160/55. - Continue amlodipine, doxazosin, hydralazine, labetalol, lisinopril, Bumex (8) DVT prophylaxis: SCDs - No heparin for bleeding Admission and Anticipated Discharge Date Admission Date: July 23, 2019 Subjective Tired. Otherwise, no major concerns. Reports no fevers/chills, chest pain, shortness of breath, abdominal pain, nausea, or vomiting. Physical Exam Constitutional: WD/WN, vitals as above Eyes: EOM intact bilaterally; no conjunctival abnormality ENMT: external ear and nose normal, oropharynx normal Neck: trachea midline, no thyromegaly normal visual inspection Respiratory: normal respiratory effort, lungs clear to auscultation no respiratory distress Cardiovascular: RRR, no murmur, no edema Gastrointestinal (Abdomen): Inspection/Auscultation: abdomen normal to inspection; abdomen not distended Musculoskeletal: no cyanosis or clubbing, extremities motor strength 5/5 Skin: no rashes, warm and dry Neurologic: moves all extremities and awake Psychiatric: Orientation: alert, oriented to person and cooperative Results & Data ([facility]) Vital Signs (Past 12 Hours) Vital Signs Temp Pulse Pulse Pulse Resp BP BP 07/24/19 12:20 51 L 158/56 H 07/24/19 12:00 51 L 167/68 H 07/24/19 11:40 56 L 158/63 H 07/24/19 11:20 53 L 159/72 H 07/24/19 11:00 53 L 155/64 H 07/24/19 10:40 51 L 175/63 H 07/24/19 10:29 36.7 C 52 L 16 155/63 H 07/24/19 10:20 52 L 155/63 H 07/24/19 10:00 51 L 178/67 H 07/24/19 09:40 53 L 163/69 H 07/24/19 09:37 36.6 C 51 L 16 155/64 H 07/24/19 09:20 51 L 155/64 H 07/24/19 09:10 36.6 C 53 L 07/24/19 07:26 56 L 07/24/19 06:59 36.7 C 57 L 19 147/65 H 07/24/19 04:16 36.6 C 56 L 20 156/68 H Pulse Ox 07/24/19 12:20 07/24/19 12:00 07/24/19 11:40 07/24/19 11:20 07/24/19 11:00 07/24/19 10:40 07/24/19 10:29 98 07/24/19 10:20 07/24/19 10:00 07/24/19 09:40 07/24/19 09:37 07/24/19 09:20 07/24/19 09:10 07/24/19 07:26 07/24/19 06:59 90 07/24/19 04:16 93 PG Care Time/CCT Total # of Minutes Spent Total Time Spent with Patient: Total time spent is greater than 50% in coordination of care (as documented) at patient's floor/unit and/or counseling patient: Coding Level of Care Code 56493 Subseq Hosp Care Lvl 3 Diagnoses ESRD (end stage renal disease) N18.6 Symptomatic anemia D64.9 CHF (congestive heart failure) I50.9 Heart failure chronicity: unspecified Heart failure type: unspecified GAVE (gastric antral vascular ectasia) K31.819 Diabetes E11.22; N18.6; Z79.4; Z99.2 Chronic kidney disease stage: on chronic dialysis Diabetes mellitus complication detail: with chronic kidney disease Diabetes mellitus complication status: with kidney complications Diabetes mellitus jail insulin use: with jail use Diabetes mellitus type: type 2 Hypothyroidism E03.9 Hypothyroidism type: unspecified Hypertension I15.0 Hypertension type: renovascular hypertension DVT prophylaxis Z29.9 (1) Diabetes Chronic kidney disease stage: on chronic dialysis Diabetes mellitus complication detail: with chronic kidney disease Diabetes mellitus complication status: with kidney complications Diabetes mellitus jail insulin use: with intermodal dispatcher use Diabetes mellitus type: type 2 Qualified Code(s): E11.22 - Type 2 diabetes mellitus with diabetic chronic kidney disease; N18.6 - End stage renal disease; Z79.4 - continuous churn buttermaker (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 (2) CHF (congestive heart failure) Heart failure chronicity: unspecified Heart failure type: unspecified Qualified Code(s): I50.9 - Heart failure, unspecified (3) Hypothyroidism Hypothyroidism type: unspecified Qualified Code(s): E03.9 - Hypothyroidism, unspecified (4) Hypertension Hypertension type: renovascular hypertension Qualified Code(s): I15.0 - Renovascular hypertension
[2019-07-24] MEDS: NEPHROCAPS PO SCH (13:54)
[2019-07-24] MEDS: CYANOCOBALAMIN 500 MCG TABLET (VITAMIN B-12) PO SCH (13:54)
[2019-07-24] MEDS: ROSUVASTATIN CALCIUM 20 MG TAB PO SCH (20:52)
[2019-07-24] MEDS: INSULIN GLARGINE SOLOSTAR 100 UNITS/ML 3 ML PEN SC SCH (20:53)
[2019-07-24] MEDS: GABAPENTIN 100 MG CAP PO SCH (20:54)
[2019-07-24] MEDS: TAMSULOSIN HCL 0.4 MG CAP PO SCH (20:54)
--- NOTE | 2019-07-24 20:54 | Electrocardiogram Report ---
Test Reason : Blood Pressure : / mmHG Vent. Rate : 059 BPM Atrial Rate : 059 BPM P-R Int : 218 ms QRS Dur : 162 ms QT Int : 530 ms P-R-T Axes : 076 104 -71 degrees QTc Int : 524 ms Sinus bradycardia with 1st degree A-V block Right bundle branch block T wave abnormality, consider inferolateral ischemia Abnormal ECG When compared with ECG of 19-JUL-2019 13:42, No significant change was found Confirmed by Martin Daugherty ([id number]) on 07/24/2019 8:54:17 PM Referred By: REFERRED SELF Confirmed By:Martin Daugherty
[2019-07-24] MEDS: AMLODIPINE BESYLATE 5 MG TAB PO SCH (20:55)
[2019-07-24] MEDS ORDERED: DARBEPOETIN ALFA IN POLYSORBAT 60 MCG PO SCH (21:00)
[2019-07-25] MEDS: LEVOTHYROXINE SODIUM 200 MCG TABLET PO SCH (05:50)
[2019-07-25] MEDS: LEVOTHYROXINE SODIUM 100 MCG TABLET PO SCH (05:50)
[2019-07-25] MEDS: HydrALAZINE TAB 50 MG TAB PO SCH ×3 (05:50→21:51)
[2019-07-25] MEDS: OCTREOTIDE ACETATE 100 MCG/ML VIAL SQ SCH ×3 (05:50→21:51)
[2019-07-25] MEDS ORDERED: SODIUM CHLORIDE 0.9% 1000ML 1,000 ML IV PRN (07:00)
[2019-07-25 07:04] LABS: Basophils # (auto) 0.04 K/uL (0-0.2); Basophils % (auto) 0.9 %; Eosinophils # (auto) 0.31 K/uL (0-0.5); Eosinophils % (auto) 7.3 %; Hemoglobin 7.3 g/dL (14.0-18.0); Immature Granulocytes # (auto) 0.01 K/uL (0.00-0.02); Immature Granulocytes % (auto) 0.2 %; Lymphocytes # (auto) 0.47 K/uL (1.2-3.4); Lymphocytes % (auto) 11.1 %; Mean Corpuscular Hemoglobin 29.8 pg (25-34); Mean Corpuscular Hgb Conc 31.7 g/dL (32-36); Mean Corpuscular Volume 93.9 fL (80-100); Mean Platelet Volume 10.7 fL (7.4-10.4); Monocytes # (auto) 0.49 K/uL (0.11-0.59); Monocytes % (auto) 11.6 %; Neutrophils % (auto) 68.9 %; Platelet Count 130 K/uL (130-400); RDW Coefficient of Variation 16.1 % (11.5-14.5); RDW Standard Deviation 55.1 fL (36.4-46.3); Red Blood Count 2.45 M/uL (4.7-6.1); White Blood Count 4.22 K/uL (4.8-10.8)
[2019-07-25 07:46] LABS: Albumin Level 2.6 gm/dl (3.4-5.0); BUN Creatinine Ratio 11.2 (10-20); Calcium 8.4 mg/dl (8.5-10.1); Creatinine Clr Calc Pharmacy 13.1 ml/min; Est GFR (African American) 11.1; Est GFR (Non-African American) 9.6; Magnesium 1.7 mg/dl (1.8-2.4); Phosphorus 4.1 mg/dl (2.5-4.9); Potassium 4.1 mmol/L (3.5-5.1)
[2019-07-25] MEDS: DOCUSATE SODIUM 100 MG CAP PO SCH (08:09)
[2019-07-25] MEDS: LABETALOL HCL 200 MG TAB PO SCH ×2 (08:09→20:45)
[2019-07-25] MEDS: CALCIUM ACETATE 667 MG CAP PO SCH ×3 (08:10→18:33)
[2019-07-25] MEDS: FERROUS SULFATE 325 MG TAB PO SCH ×2 (08:10→20:44)
[2019-07-25] MEDS: BUMETANIDE 1 MG TAB PO SCH ×2 (08:10→20:43)
[2019-07-25] MEDS: PANTOprazole 40 MG TAB PO SCH ×2 (08:11→20:46)
[2019-07-25] MEDS: DOXAZOSIN MESYLATE 1 MG TAB PO SCH (08:11)
[2019-07-25] MEDS: FOLIC ACID 1 MG TAB PO SCH (08:11)
[2019-07-25] MEDS: lisinopriL 40 MG TAB PO SCH (08:11)
[2019-07-25] MEDS: INSULIN ASPART 100 UNITS/ML 3 ML PEN SC SCH ×4 (08:12→20:51)
[2019-07-25] MEDS ORDERED: SODIUM CHLORIDE 0.9% 250 ML IV PRN (08:28)
--- NOTE | 2019-07-25 11:30 | Nephrology Progress Note ---
Date of Service July 25, 2019 Assessment & Plan (1) ESRD (end stage renal disease): HD today per TTS schedule. Orders entered into EMR and reviewed with dialysis nurse. Goal UF 2-3 L as tolerated. 3 K bath. Resume TTS schedule. Medications are appropriately dosed for IHD. BP acceptable. AVF with good thrill and bruit. Adequate clearance yesterday. Qb at goal. (2) Anemia: Additional 2 u PRBC provided this AM. Close prospective monitoring ess ential. Recent GI evaluation reviewed. (3) Volume overload: Improved following HD yesterday. Importance of compliance with treatment stressed. Additional UF with HD today as tolerated. Subjective No acute events overnight. Augie feels reasonably well this morning. He reports feeling tired. He is frustrated by his current state of health and need for frequent hospitalizations/transfusions. 2 unts of PRBC being provided this AM. Augie denies any BRBPR. He reports a formed dark black bowel movement this AM. He denies abdominal pain. He denies chest pain or palpitations. He tolerated HD yesterday without complications. Net UF 3 L. No complications with dialysis. Augie hopes to be discharged home today. Review of Systems Review of Systems: All systems reviewed & are unremarkable except as noted in HPI & below Physical Exam Constitutional: + frail appearing; no acute distress Eyes: + conjunctival abnormality (pallor) and + anicteric sclerae ENMT: Mouth: no oral mucosal abnormality and oral mucous membranes not dry Neck: normal visual inspection and trachea midline Respiratory: normal respiratory effort Auscultation: lungs clear to auscultation bilaterally Cardiovascular: Rate/Rhythm: regular rate Heart Sounds: normal S1 and normal S2 Extremities: + AV fistula; no edema Musculoskeletal: Extremities: no cyanosis and no clubbing Skin: normal turgor; no lesions Neurologic: Motor/Sensory: no tremor and no asterixis Psychiatric: Orientation: alert and oriented x 3 Results & Data Vital Signs (Past 12 Hours) Vital Signs Temp Pulse Pulse Resp BP BP Pulse Ox 07/25/19 11:18 36.9 C 56 L 18 126/39 L 07/25/19 10:18 37.5 C 57 L 18 147/58 H 07/25/19 09:48 37.0 C 56 L 18 175/58 H 07/25/19 09:33 37.0 C 56 L 18 175/58 H 92 07/25/19 09:18 36.9 C 56 L 18 154/69 H 90 07/25/19 07:42 55 L 07/25/19 07:05 36.8 C 56 L 19 170/59 H 93 07/25/19 03:55 36.8 C 57 L 18 163/76 H 90 Laboratory Results Laboratory Results - last 24 hr 07/23/19 07/24/19 07/24/19 18:17 13:44 16:14 WBC RBC Hgb Hct MCV MCH MCHC RDW Std Deviation RDW Coeff of Jose C Plt Count MPV Immature Gran % (Auto) Neut % (Auto) Lymph % (Auto) [place] % (Auto) Eos % (Auto) Baso % (Auto) Immature Gran # (Auto) Neut # (Auto) Lymph # (Auto) [place] # (Auto) Eos # (Auto) Baso # (Auto) Sodium Potassium Chloride Carbon Dioxide Anion Gap BUN Creatinine Est Cr Clr Drug Dosing Est GFR ( Amer) Est GFR (Non-Af Amer) BUN/Creatinine Ratio Glucose POC Glucose 102 H 155 H Calcium Phosphorus Magnesium Albumin Blood Type B Positive Antibody Screen NEGATIVE Crossmatch See Detail 07/24/19 07/25/19 07/25/19 20:14 06:39 06:39 WBC 4.22 L RBC 2.45 L Hgb 7.3 L Hct 23.0 L MCV 93.9 MCH 29.8 MCHC 31.7 L RDW Std Deviation 55.1 H RDW Coeff of Jose C 16.1 H Plt Count 130 MPV 10.7 H Immature Gran % (Auto) 0.2 Neut % (Auto) 68.9 Lymph % (Auto) 11.1 [place] % (Auto) 11.6 Eos % (Auto) 7.3 Baso % (Auto) 0.9 Immature Gran # (Auto) 0.01 Neut # (Auto) 2.90 Lymph # (Auto) 0.47 L Ceiba # (Auto) 0.49 Eos # (Auto) 0.31 Baso # (Auto) 0.04 Sodium 137 Potassium 4.1 Chloride 102 Carbon Dioxide 28 Anion Gap 7.0 BUN 60 H Creatinine 5.33 H* D Est Cr Clr Drug Dosing 13.1 Est GFR ( Amer) 11.1 Est GFR (Non-Af Amer) 9.6 BUN/Creatinine Ratio 11.2 Glucose 105 H POC Glucose 154 H Calcium 8.4 L Phosphorus 4.1 D Magnesium 1.7 L Albumin 2.6 L Blood Type Antibody Screen Crossmatch 07/25/19 07/25/19 07/25/19 07:31 11:24 11:25 WBC RBC Hgb Hct MCV MCH MCHC RDW Std Deviation RDW Coeff of Jose C Plt Count MPV Immature Gran % (Auto) Neut % (Auto) Lymph % (Auto) [place] % (Auto) Eos % (Auto) Baso % (Auto) Immature Gran # (Auto) Neut # (Auto) Lymph # (Auto) [place] # (Auto) Eos # (Auto) Baso # (Auto) Sodium Potassium Chloride Carbon Dioxide Anion Gap BUN Creatinine Est Cr Clr Drug Dosing Est GFR ( Amer) Est GFR (Non-Af Amer) BUN/Creatinine Ratio Glucose POC Glucose 99 Pending Pending Calcium Phosphorus Magnesium Albumin Blood Type Antibody Screen Crossmatch PG Care Time/CCT Total # of Minutes Spent Total Time Spent with Patient: Total time spent is greater than 50% in coordination of care (as documented) at patient's floor/unit and/or counseling patient: Coding Level of Care Code 59125 Subseq Hosp Care Lvl 3 Diagnoses ESRD (end stage renal disease) N18.6 Anemia D64.9 Anemia type: unspecified type Volume overload E87.70 (1) Anemia Anemia type: unspecified type Qualified Code(s): D64.9 - Anemia, unspecified
[2019-07-25] MEDS: NEPHROCAPS PO SCH (12:36)
[2019-07-25] MEDS: CYANOCOBALAMIN 500 MCG TABLET (VITAMIN B-12) PO SCH (12:36)
--- NOTE | 2019-07-25 15:32 | Hospitalist Progress Note ---
Date of Service July 25, 2019 Assessment & Plan (1) ESRD (end stage renal disease): ESRD on HD. He frequently misses episodes because he feels "tired" or doesn't feel well. - Will get blood with HD today again. Another 2 units. Hgb is only 7.3 today. If he is stable tomorrow, he can be discharged. (2) Symptomatic anemia: Multifactorial from chronic disease, ESRD, and GI bleeding. - Will get 2 units PRBCs with dialysis today - Monitor tomorrow (3) CHF (congestive heart failure): Do not believe this is CHF. He has volume overload related to his kidney failure and aneuria. This is not diastolic heart failure. (4) GAVE (gastric antral vascular ectasia): Has had numerous EGDs with laser ablation for GAVE. Last EGD was on 07/20/2019. - Continue pantoprazole BID - Monitor for bleeding -> None seen today. (5) Diabetes: A1c was 5.4% this admission. - Sliding scale insulin (6) Hypothyroidism: TSH was 20 this admission, but down from 33 on 07/06/2019. - Continue levothyroxine 30 mcg every morning - Recheck TSH in another 4-6 weeks. (7) Hypertension: Often has high BPs in the hospital. Today BP is 135/65. High BPs are often in the setting of volume overload from missing his HD. - Continue amlodipine, doxazosin, hydralazine, labetalol, lisinopril, Bumex (8) DVT prophylaxis: SCDs - No heparin for GI bleeding Admission and Anticipated Discharge Date Admission Date: July 23, 2019 Subjective Feels great today. Reports that if I asked him to, he could "dance." Reports no fevers/chills, chest pain, shortness of breath, abdominal pain, nausea, or vomiting. Physical Exam Constitutional: WD/WN, vitals as above Eyes: EOM intact bilaterally; no conjunctival abnormality ENMT: external ear and nose normal, oropharynx normal Neck: trachea midline, no thyromegaly normal visual inspection Respiratory: normal respiratory effort, lungs clear to auscultation no respiratory distress Cardiovascular: RRR, no murmur, no edema Gastrointestinal (Abdomen): Inspection/Auscultation: abdomen normal to inspection; abdomen not distended Musculoskeletal: no cyanosis or clubbing, extremities motor strength 5/5 Skin: no rashes, warm and dry Neurologic: moves all extremities and awake Psychiatric: Orientation: alert, oriented to person and cooperative Results & Data ([facility]) Vital Signs (Past 12 Hours) Vital Signs Temp Pulse Pulse Resp BP BP Pulse Ox 07/25/19 15:15 37.0 C 55 L 16 133/60 07/25/19 12:18 37.0 C 56 L 18 164/67 H 94 07/25/19 11:18 36.9 C 56 L 18 126/39 L 92 07/25/19 10:18 37.5 C 57 L 18 147/58 H 92 07/25/19 09:48 37.0 C 56 L 18 175/58 H 92 07/25/19 09:33 37.0 C 56 L 18 175/58 H 92 07/25/19 09:18 36.9 C 56 L 18 154/69 H 90 07/25/19 07:42 55 L 07/25/19 07:05 36.8 C 56 L 19 170/59 H 93 07/25/19 03:55 36.8 C 57 L 18 163/76 H 90 PG Care Time/CCT Total # of Minutes Spent Total Time Spent with Patient: Total time spent is greater than 50% in coordination of care (as documented) at patient's floor/unit and/or counseling patient: Coding Level of Care Code 29226 Subseq Hosp Care Lvl 2 Diagnoses ESRD (end stage renal disease) N18.6 Symptomatic anemia D64.9 CHF (congestive heart failure) I50.9 Heart failure chronicity: unspecified Heart failure type: unspecified GAVE (gastric antral vascular ectasia) K31.819 Diabetes E11.22; N18.6; Z79.4; Z99.2 Diabetes mellitus type: type 2 Diabetes mellitus salvage determiner insulin use: with salvage determiner use Diabetes mellitus complication status: with kidney complications Diabetes mellitus complication detail: with chronic kidney disease Chronic kidney disease stage: on chronic dialysis Hypothyroidism E03.9 Hypothyroidism type: unspecified Hypertension I15.0 Hypertension type: renovascular hypertension DVT prophylaxis Z29.9 (1) CHF (congestive heart failure) Heart failure chronicity: unspecified Heart failure type: unspecified Qualified Code(s): I50.9 - Heart failure, unspecified (2) Diabetes Diabetes mellitus type: type 2 Diabetes mellitus salvage determiner insulin use: with salvage determiner use Diabetes mellitus complication status: with kidney complications Diabetes mellitus complication detail: with chronic kidney disease Chronic kidn ey disease stage: on chronic dialysis Qualified Code(s): E11.22 - Type 2 diabetes mellitus with diabetic chronic kidney disease; N18.6 - End stage renal disease; Z79.4 - 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 manager (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 (3) Hypothyroidism Hypothyroidism type: unspecified Qualified Code(s): E03.9 - Hypothyroidism, unspecified (4) Hypertension Hypertension type: renovascular hypertension Qualified Code(s): I15.0 - Renovascular hypertension
[2019-07-25] MEDS ORDERED: ACETAMINOPHEN 500 MG TAB PO STA (17:45)
[2019-07-25] MEDS ORDERED: FAMOTIDINE 20 MG TAB PO STA (17:45)
[2019-07-25] MEDS: ROSUVASTATIN CALCIUM 20 MG TAB PO SCH (20:43)
[2019-07-25] MEDS: TAMSULOSIN HCL 0.4 MG CAP PO SCH (20:44)
[2019-07-25] MEDS: GABAPENTIN 100 MG CAP PO SCH (20:45)
[2019-07-25] MEDS: AMLODIPINE BESYLATE 5 MG TAB PO SCH (20:45)
[2019-07-25] MEDS: INSULIN GLARGINE SOLOSTAR 100 UNITS/ML 3 ML PEN SC SCH (20:52)
[2019-07-26] MEDS: HydrALAZINE TAB 50 MG TAB PO SCH ×2 (05:28→13:48)
[2019-07-26] MEDS: LEVOTHYROXINE SODIUM 200 MCG TABLET PO SCH (05:30)
[2019-07-26] MEDS: LEVOTHYROXINE SODIUM 100 MCG TABLET PO SCH (05:30)
[2019-07-26] MEDS: OCTREOTIDE ACETATE 100 MCG/ML VIAL SQ SCH ×2 (05:37→13:48)
[2019-07-26 05:49] LABS: Basophils # (auto) 0.05 K/uL (0-0.2); Eosinophils # (auto) 0.44 K/uL (0-0.5); Eosinophils % (auto) 8.9 %; Hematocrit (blood only) 25.2 % (42-52); Hemoglobin 8.2 g/dL (14.0-18.0); Immature Granulocytes # (auto) 0.01 K/uL (0.00-0.02); Immature Granulocytes % (auto) 0.2 %; Lymphocytes # (auto) 0.56 K/uL (1.2-3.4); Lymphocytes % (auto) 11.3 %; Mean Corpuscular Hemoglobin 30.6 pg (25-34); Mean Corpuscular Hgb Conc 32.5 g/dL (32-36); Mean Platelet Volume 10.7 fL (7.4-10.4); Monocytes # (auto) 0.58 K/uL (0.11-0.59); Monocytes % (auto) 11.7 %; Neutrophils # (auto) 3.32 K/uL (1.4-6.5); Neutrophils % (auto) 66.9 %; Platelet Count 121 K/uL (130-400); RDW Coefficient of Variation 15.8 % (11.5-14.5); RDW Standard Deviation 53.5 fL (36.4-46.3); Red Blood Count 2.68 M/uL (4.7-6.1); White Blood Count 4.96 K/uL (4.8-10.8)
[2019-07-26 07:09] LABS: Albumin Level 2.8 gm/dl (3.4-5.0); BUN Creatinine Ratio 11.2 (10-20); Calcium 8.4 mg/dl (8.5-10.1); Est GFR (Non-African American) 11.2; Magnesium 1.8 mg/dl (1.8-2.4); Potassium 3.6 mmol/L (3.5-5.1)
[2019-07-26 07:31] LABS: Phosphorus 2.9 mg/dl (2.5-4.9)
[2019-07-26] MEDS: CARBOHYDRATES FOR HYPOGLYCEMIA PO PRN ×2 (07:51→08:08)
[2019-07-26] MEDS: DOCUSATE SODIUM 100 MG CAP PO SCH (08:18)
[2019-07-26] MEDS: PANTOprazole 40 MG TAB PO SCH (08:19)
[2019-07-26] MEDS: lisinopriL 40 MG TAB PO SCH (08:19)
[2019-07-26] MEDS: BUMETANIDE 1 MG TAB PO SCH (08:19)
[2019-07-26] MEDS: LABETALOL HCL 200 MG TAB PO SCH (08:20)
[2019-07-26] MEDS: DOXAZOSIN MESYLATE 1 MG TAB PO SCH (08:20)
[2019-07-26] MEDS: FOLIC ACID 1 MG TAB PO SCH (08:20)
[2019-07-26] MEDS: CALCIUM ACETATE 667 MG CAP PO SCH ×2 (08:20→12:50)
[2019-07-26] MEDS: FERROUS SULFATE 325 MG TAB PO SCH (08:21)
[2019-07-26] MEDS: INSULIN ASPART 100 UNITS/ML 3 ML PEN SC SCH ×2 (08:25→12:53)
--- NOTE | 2019-07-26 12:16 | Nephrology Progress Note ---
Date of Service July 26, 2019 Assessment & Plan (1) ESRD (end stage renal disease): HD TTS schedule. Appropriate clearance and adequate UF with abridged treatment yesterday. Electrolytes are acceptable. BP and volume status are appropriate. Medications are appropriately dosed for IHD. AVF functioning well. (2) Anemia: 2 u PRBC provided yesterday. Close prospective monitoring essential. Recent GI evaluation reviewed. (3) Volume overload: Improved following HD yesterday. Importance of compliance with treatment stressed. Additional UF with HD today as tolerated. Subjective No acute events overnight. Don feels well this morning. He hopes to be discharged home today. No melena or hematochezia. No pain. HD yesterday complicated by cramps and chest pain. Symptoms resolved after treatment. Physical Exam Constitutional: + frail appearing; no acute distress Eyes: + conjunctival abnormality (pallor) and + anicteric sclerae ENMT: Mouth: no oral mucosal abnormality and oral mucous membranes not dry Neck: normal visual inspection and trachea midline Respiratory: normal respiratory effort Auscultation: lungs clear to auscultation bilaterally Cardiovascular: Rate/Rhythm: regular rate Heart Sounds: normal S1 and normal S2 Extremities: + AV fistula; no edema Musculoskeletal: Extremities: no cyanosis and no clubbing Skin: normal turgor; no lesions Neurologic: Motor/Sensory: no tremor and no asterixis Psychiatric: Orientation: alert and oriented x 3 Results & Data Vital Signs (Past 12 Hours) Vital Signs Temp Pulse Pulse Resp BP Pulse Ox 07/26/19 07:19 36.9 C 53 L 18 152/58 H 94 07/26/19 05:23 68 154/75 H Laboratory Results Laboratory Results - last 24 hr 07/23/19 07/25/19 07/25/19 18:17 18:33 20:17 WBC RBC Hgb Hct MCV MCH MCHC RDW Std Deviation RDW Coeff of Jose C Plt Count MPV Immature Gran % (Auto) Neut % (Auto) Lymph % (Auto) George % (Auto) Eos % (Auto) Baso % (Auto) Immature Gran # (Auto) Neut # (Auto) Lymph # (Auto) George # (Auto) Eos # (Auto) Baso # (Auto) Sodium Potassium Chloride Carbon Dioxide Anion Gap BUN Creatinine Est Cr Clr Drug Dosing Est GFR ( Amer) Est GFR (Non-Af Amer) BUN/Creatinine Ratio Glucose POC Glucose 103 H 144 H Calcium Phosphorus Magnesium Albumin Blood Type B Positive Antibody Screen NEGATIVE Crossmatch See Detail 07/26/19 07/26/19 07/26/19 05:31 05:31 07:46 WBC 4.96 RBC 2.68 L Hgb 8.2 L Hct 25.2 L MCV 94.0 MCH 30.6 MCHC 32.5 RDW Std Deviation 53.5 H RDW Coeff of Jose C 15.8 H Plt Count 121 L MPV 10.7 H Immature Gran % (Auto) 0.2 Neut % (Auto) 66.9 Lymph % (Auto) 11.3 George % (Auto) 11.7 Eos % (Auto) 8.9 Baso % (Auto) 1.0 Immature Gran # (Auto) 0.01 Neut # (Auto) 3.32 Lymph # (Auto) 0.56 L George # (Auto) 0.58 Eos # (Auto) 0.44 Baso # (Auto) 0.05 Sodium 136 Potassium 3.6 Chloride 101 Carbon Dioxide 30 Anion Gap 5.0 BUN 52 H Creatinine 4.66 H* D Est Cr Clr Drug Dosing 15.0 Est GFR ( Amer) 13.0 Est GFR (Non-Af Amer) 11.2 BUN/Creatinine Ratio 11.2 Glucose 75 POC Glucose 67 L* Calcium 8.4 L Phosphorus 2.9 D Magnesium 1.8 Albumin 2.8 L Blood Type Antibody Screen Crossmatch 07/26/19 07/26/19 07/26/19 07:46 08:07 08:23 WBC RBC Hgb Hct MCV MCH MCHC RDW Std Deviation RDW Coeff of Jose C Plt Count MPV Immature Gran % (Auto) Neut % (Auto) Lymph % (Auto) George % (Auto) Eos % (Auto) Baso % (Auto) Immature Gran # (Auto) Neut # (Auto) Lymph # (Auto) George # (Auto) Eos # (Auto) Baso # (Auto) Sodium Potassium Chloride Carbon Dioxide Anion Gap BUN Creatinine Est Cr Clr Drug Dosing Est GFR ( Amer) Est GFR (Non-Af Amer) BUN/Creatinine Ratio Glucose POC Glucose 69 L* 65 L* 93 Calcium Phosphorus Magnesium Albumin Blood Type Antibody Screen Crossmatch 07/26/19 11:32 WBC RBC Hgb Hct MCV MCH MCHC RDW Std Deviation RDW Coeff of Jose C Plt Count MPV Immature Gran % (Auto) Neut % (Auto) Lymph % (Auto) George % (Auto) Eos % (Auto) Baso % (Auto) Immature Gran # (Auto) Neut # (Auto) Lymph # (Auto) George # (Auto) Eos # (Auto) Baso # (Auto) Sodium Potassium Chloride Carbon Dioxide Anion Gap BUN Creatinine Est Cr Clr Drug Dosing Est GFR ( Amer) Est GFR (Non-Af Amer) BUN/Creatinine Ratio Glucose POC Glucose 177 H Calcium Phosphorus Magnesium Albumin Blood Type Antibody Screen Crossmatch PG Care Time/CCT Total # of Minutes Spent Total Time Spent with Patient: Total time spent is greater than 50% in coordination of care (as documented) at patient's floor/unit and/or counseling patient: Coding Level of Care Code 57884 Subseq Hosp Care Lvl 3 Diagnoses ESRD (end stage renal disease) N18.6 Anemia D64.9 Anemia type: unspecified type Volume overload E87.70 (1) Anemia Anemia type: unspecified type Qualified Code(s): D64.9 - Anemia, unspecified
[2019-07-26] MEDS: CYANOCOBALAMIN 500 MCG TABLET (VITAMIN B-12) PO SCH (12:49)
[2019-07-26] MEDS: NEPHROCAPS PO SCH (12:50)
--- NOTE | 2019-07-26 16:24 | Discharge Summary ---
Date of Service July 26, 2019 Admission HPI Per Admitting Provider The patient is a 79-year-old male with a past medical history including closed head injury, ESRD on HD, CHF, hypoxemia, symptomatic anemia, GI bleed, hypothyroidism, hypertension, gastric antral vascular ectasia, cirrhosis, gastric AV malformation, mitral regurgitation, diabetes mellitus, hiatal hernia with GERD, IgG monoclonal gammopathy, obstructive sleep apnea, nephrotic syndrome, CAD, BPH, secondary hyperparathyroidism of renal origin and COPD. He presents the emergency department with generalized fatigue, persistent lower extremity edema and shortness of breath and reportedly had his dialysis treatment earlier in the day cut short due to issues with fatigue and dizziness and lightheadedness. He was seen in the ED for a fall 4 days ago. Principal Diagnosis Anemia Discharge Exam Constitutional WD/WN, vitals as above Eyes EOM intact bilaterally; no conjunctival abnormality ENMT external ear and nose normal, oropharynx normal Neck trachea midline, no thyromegaly normal visual inspection Respiratory normal respiratory effort, lungs clear to auscultation no respiratory distress Cardiovascular RRR, no murmur, no edema Gastrointestinal (Abdomen) Inspection/Auscultation: abdomen normal to inspection; abdomen not distended Musculoskeletal no cyanosis or clubbing, extremities motor strength 5/5 Skin no rashes, warm and dry Neurologic moves all extremities and awake Psychiatric Orientation: alert, oriented to person and cooperative Discharge Data Allergies Allergy/AdvReac Type Severity Reaction Status Date / Time sucralfate [From Carafate] Allergy Mild upset Verified 07/20/19 23:38 dialysis tramadol AdvReac Severe disorented Verified 07/20/19 23:38 ,falling down metformin AdvReac Intermediate CONFUSION Verified 07/20/19 23:38 Consultations 07/23/19 19:08 ED Decision to Admit Stat 07/23/19 21:24 Consult Case Management - Discharge Planning Routine Consult Nephrology Routine Hospital Course (1) ESRD (end stage renal disease): ESRD on HD. He frequently misses episodes because he feels "tired" or doesn't feel well. - Got 2 sessions of HD while admitted. On 07/25, he stopped his HD session an hour early for some RUQ pain. I personally asked him to please keep going. He refused. I could not get him to describe the pain other than to point to his RUQ quadrant. It was only mildly tender to palpation. He refused any pain medication, but made them stop HD.. The next morning he said it was gone and that if he'd just gotten Tylenol, he would have been fine. (2) Symptomatic anemia: Multifactorial from chronic disease, ESRD, and GI bleeding. - He got 2 units PRBCs with dialysis on 07/24 & again on 07/25 for a total of 4 units. Hgb responded close to appropriately with bump to 8.2 from 5.9. - On 07/26, he said he felt well and requested discharge. No signs of bleeding this admission. (3) CHF (congestive heart failure): Do not believe this is CHF. He has volume overload related to his kidney failure and aneuria. This is not diastolic heart failure. (4) GAVE (gastric antral vascular ectasia): Has had numerous EGDs with laser ablation for GAVE. Last EGD was on 07/20/2019. - Continue pantoprazole BID - Monitor for bleeding -> None seen while admitted. (5) Diabetes: A1c was 5.4% this admission. - Sliding scale insulin (6) Hypothyroidism: TSH was 20 this admission, but down from 33 on 07/06/2019. - Continue levothyroxine 300 mcg every morning - Recheck TSH in another 4-6 weeks. (7) Hypertension: Often has high BPs in the hospital. Today BP is 135/65. High BPs are often in the setting of volume overload from missing his HD. - Continue amlodipine, doxazosin, hydralazine, labetalol, lisinopril, Bumex (8) DVT prophylaxis: SCDs - No heparin for GI bleeding Total Time Total Time Spent Total Time Spent (In Minutes): 35 Discharge Plan Discharge Items Patient Disposition: Home - Home Health Services Reason For Visit: ANEMIA,ESRD ON HD Discharge Diagnosis: Anemia Activity: Resume your previous activity Non-emergency contact: Primary Care Provider, [employer] and Nursing Program Director Call non-emergency contact if: your symptoms worsen Follow-up/Referrals: Mahsa Wang DO [Primary Care Provider] - (Patient already has appointment with PCP) Diet: Carb Consistent or DM2 and Dialysis Renal Addtl Attending Provider Instructions: You were admitted for low blood levels. We gave you a total of 4 units of blood, and your counts went up to over 8. We did two rounds of dialysis for you. You will need to resume your usual regimen on Otjnhcx-Jibdnttu-[id number]. Please, do the entire session as this is the only way to help your volume status remain stable. Please follow up with your PCP and Dr. White in the clinic as scheduled. Pending Studies at Discharge: No Stand-Alone Forms: My [facility], Smoking Cessation Medications and DC Order Prescriptions: Continued gabapentin 100 mg capsule 200 mg PO HS Qty: 60 RF: 5 calcium acetate(phosphat bind) 667 mg tablet 2,001 mg PO TIDM RF: 0 hydralazine 25 mg tablet 50 mg PO Q8H RF: 0 ferrous sulfate 325 mg (65 mg iron) tablet,delayed release (DR/EC) 325 mg PO BID Qty: 60 RF: 1 bumetanide 1 mg tablet 2 mg PO BID Qty: 120 RF: 2 folic acid 1 mg tablet 1 mg PO QAM RF: 0 Eligen B12 1,000-100 mcg-mg tablet 1 tab PO QDL RF: 0 docusate sodium 100 mg capsule 200 mg PO QAM Qty: 30 RF: 0 Levemir U-100 Insulin 100 unit/mL solution 15 units subcut HS RF: 0 Renal Caps 1 mg Capsule 1 cap PO QDL RF: 0 amlodipine 10 mg tablet 10 mg PO HS RF: 0 doxazosin [Cardura] 1 mg tablet 1 mg PO QAM RF: 0 levothyroxine 100 mcg tablet 100 mcg PO QAM RF: 0 darbepoetin rasheed in polysorbat 60 mcg/mL solution 60 mcg subcut USEASDIRECTD RF: 0 octreotide acetate 50 mcg/mL solution 50 mcg SQ Q8H 30 Days Qty: 90 RF: 0 tamsulosin 0.4 mg capsule 0.4 mg PO HS Qty: 90 RF: 1 levothyroxine 200 mcg tablet 200 mcg PO QAM RF: 0 Boost Glucose Control 0.06-1.1 gram-kcal/mL Liquid 1 ea PO TIDM RF: 0 rosuvastatin 20 mg tablet 20 mg PO HS RF: 0 pantoprazole 40 mg tablet,delayed release (DR/EC) 40 mg PO BID RF: 0 labetalol 200 mg Tablet 200 mg PO BID RF: 0 insulin aspart U-100 [Novolog U-100 Insulin aspart] 100 unit/mL solution 0 sliding scale dose subcut USEASDIRECTD RF: 0 lisinopril 40 mg tablet 40 mg PO DAILY RF: 0 Discharge Orders: Discharge Order (Routine); Ordered 07/26/19 Ordered By: Stephen Gold Admission Data Admit Date/Time: 07/23/19 20:29 Attending Provider: Stephen Gold Admit Provider: Hermilo Ashby Primary Care Provider: Mahsa Wang Other Providers: Stephen Gold ; Hermilo Ashby ; Merlyn Briceno Other Interventions: Discharge Summary Assessment (RN) Last Done: 07/26/19 13:06 DC Date/Time DO NOT enter until pt leaves facility: 07/26/19 14:41 Coding Level of Care Code D/C Day Management >30 mins Diagnoses ESRD (end stage renal disease) N18.6 Symptomatic anemia D64.9 CHF (congestive heart failure) I50.9 Heart failure chronicity: unspecified Heart failure type: unspecified GAVE (gastric antral vascular ectasia) K31.819 Diabetes E11.22; N18.6; Z79.4; Z99.2 Diabetes mellitus type: type 2 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
--- NOTE | 2019-07-26 16:55 | Electrocardiogram Report ---
Test Reason : Blood Pressure : / mmHG Vent. Rate : 057 BPM Atrial Rate : 057 BPM P-R Int : 210 ms QRS Dur : 160 ms QT Int : 538 ms P-R-T Axes : 080 092 -65 degrees QTc Int : 523 ms Sinus bradycardia with 1st degree A-V block Right bundle branch block T wave abnormality, consider inferior ischemia Abnormal ECG When compared with ECG of 23-JUL-2019 17:44, T wave inversion no longer evident in Lateral leads Confirmed by Grabiel Farris ([id number]) on 07/26/2019 4:55:24 PM Referred By: REFERRED SELF Confirmed By:Bruce Farris
--- NOTE | 2019-07-30 07:09 | Coding Query ---
ANEMIA To promote full compliance with coding requirements relating to patient care, physician participation is requested in all cases of collections associate uncertainty. Please assist us with the question(s) below: Coding Question(s): The record reflects the following clinical findings: Documentation in record and on Discharge Summary of, "Symptomatic anemia: Multifactorial from chronic disease, ESRD, and GI bleeding.". If these findings are indicative of anemia, please specify the known or suspected type by placing an "X" within the parenthesis (x). If other, please document type. Examples are: ( ) Acute blood loss anemia ( ) Acute Postoperative blood loss anemia ( ) Acute postoperative anemia due to dilutional fluids ( ) Chronic blood loss anemia (x ) Anemia of chronic disease ( ) Aplastic anemia (x) Anemia due to renal disease ( ) Anemia in neoplastic disease ( ) Iron deficient anemia ( ) Anemia, unspecified or other ( ) Other: (please specify) ( ) Unable to determine Thank you Elda HAMPTON
== END 2019-07-26 14:41 | disposition home health service (06) | DRG 640 ==
LOC: ED 16:54 → 2S 20:29 → SUATTDRO 20:29 → 2S 21:14 → 4W 07-25 18:19

== ENCOUNTER 2019-08-14 15:04 | Inpatient (IN) ==
--- NOTE | 2019-08-14 15:18 | Emergency Department Note ---
History of Present Illness General Chief complaint: Shortness of Breath/Dyspnea Stated complaint: SOB Time Seen by Provider: 08/14/19 15:06 Source: patient, family and EMS Mode of arrival: EMS Limitations: no limitations History of Present Illness This patient comes in as described above. He is well-known to the emergency department, I know him well from previous visits. He has a history end-stage renal disease and chronic GI blood loss. He gets frequent transfusions. He said his blood count checked on Saturday was 8.1 which is pretty good for him he has been feeling more short of breath and feels that he probably needs a transfusion. When BLS arrived his pulse ox was 88% on 4 L is 98%. Denies any fall or trauma. He receives dialysis Saturday and Saturday and has had none missed. He does have some chronic melena stool but is also on iron. No maciej blood. No fever or chills or infectious complaints no travel. No nausea or vomiting. Home Medications Home Medications Medication Instructions Recorded Confirmed Type tamsulosin 0.4 mg PO HS #90 cap 01/02/19 08/14/19 Rx docusate sodium 100 mg capsule 200 mg PO QAM #30 cap 01/19/19 08/14/19 Rx gabapentin 100 mg capsule 200 mg PO HS #60 cap 02/04/19 08/14/19 Rx levothyroxine 200 mcg PO QAM 02/15/19 08/14/19 History insulin detemir U-100 100 unit/mL 15 units SUBCUT HS ml 03/25/19 08/14/19 History subcutaneous solution rosuvastatin 20 mg PO HS 04/07/19 08/14/19 History pantoprazole 40 mg PO BID 04/25/19 08/14/19 History Renal Caps 1 cap PO QDL 05/23/19 08/14/19 History calcium acetate(phosphat bind) 667 2,001 mg PO TIDM tab 06/02/19 08/14/19 History mg tablet hydralazine 25 mg tablet 50 mg PO TIDM tab 06/02/19 08/14/19 History insulin aspart U-100 [Novolog 0 sliding scale dose SUBCUT 06/06/19 08/14/19 History U-100 Insulin aspart] USEASDIRECTD labetalol 200 mg PO BID 06/06/19 08/14/19 History amlodipine 10 mg PO HS 06/13/19 08/14/19 History doxazosin [Cardura] 1 mg PO QAM 06/23/19 08/14/19 History folic acid 1 mg tablet 1 mg PO DAILY 07/10/19 08/14/19 History bumetanide 1 mg tablet 2 mg PO BID #120 tab 07/16/19 08/14/19 Rx levothyroxine 100 mcg PO QAM 07/19/19 08/14/19 History octreotide acetate 50 mcg SQ Q8H 30 Days #90 ml 07/20/19 08/14/19 Rx lisinopril 40 mg PO DAILY 07/23/19 08/14/19 History cyanocobalamin (vitamin B-12) 1,000 mcg PO HS 08/14/19 08/14/19 History [Vitamin B-12] ferrous sulfate 325 mg PO BID 08/14/19 08/14/19 History triamcinolone acetonide [Triderm] 1 applic TOPICAL BID 08/14/19 08/14/19 History Allergies Allergy/AdvReac Type Severity Reaction Status Date / Time sucralfate [From Carafate] Allergy Mild upset Verified 08/14/19 16:19 dialysis tramadol AdvReac Severe disorented Verified 08/14/19 16:19 ,falling down metformin AdvReac Intermediate CONFUSION Verified 08/14/19 16:19 Past Med/Surg History Medical History Acute blood loss anemia Anxiety Arthritis Asthma AVF (arteriovenous fistula) left arm BPH (benign prostatic hyperplasia) CAD (coronary artery disease) Chronic diastolic congestive heart failure Chronic kidney disease, stage IV (severe) dialysis - cat [facility], sat at [place] follow with dr herrera Colon, diverticulosis 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, with long-term current use of insulin COPD (chronic obstructive pulmonary disease) Depression Diabetic peripheral neuropathy 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) (Acute) GERD (gastroesophageal reflux disease) Hearing difficulty Hyperlipidemia LDL goal <70 Hypnic jerks Memory loss Mitral regurgitation Obstructive sleep apnea uses oxygen 2 l nc at hs Pulmonary hypertension Secondary hyperparathyroidism of renal origin Uncontrolled daytime somnolence sleeps thru day and cant sleep at [employer] Surgical History H/O cardiac catheterization many years ago - over 10 years no stents follow with trung H/O esophagogastroduodenoscopy 02/16/19 and 03/2019 [facility]- Dr. Mando White. 50mg propofol, no issues. 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: No Beliefs That Will Affect Care: None marital status: Current Living Situation: Spouse current occupational status: disabled current occupation: works part-time at [employer] Other Information That Helps Us Care for You: No Feels Safe at Home: Yes Safety Concerns: Feels Safe At This Time Smoking Status: Former smoker Tobacco Type: cigarettes ; Do You Dip or Chew Tobacco: No ; Number of Years Since Quit: 25 ; Second Hand Exposure: No ; Hx Alcohol Use: No Hx Substance Use: No Childhood Exposure to Second-Hand Smoke: No Diet Comment: regular caffeine: Yes during the past year weight has: remained stable Dental Care, Regularly: Yes Physical Activity Frequency: Does not Exercise Physical Activity Frequency Comment: limited due physical condition Seatbelt Use: sometimes Sunscreen Use: No Review of Systems A total of 10 systems reviewed and were otherwise negative Physical Exam Vital Signs Vital Signs - 24 hr 08/14/19 15:05 08/14/19 15:30 08/14/19 15:48 Temperature 36.9 C Temperature Source Oral Pulse Rate 61 61 Pulse Rate from SpO2 Sensor 61 Respiratory Rate 20 16 Respiratory Effort / Characteristics Non-Labored Respiratory Depth Normal Respiratory Pattern Regular Blood Pressure 159/57 H 147/73 H Blood Pressure Mean 91 113 Pulse Oximetry 92 90 98 Oxygen Delivery Method Nasal Cannula Nasal Cannula Nasal Cannula Oxygen Flow Rate 4 2 2 Sepsis Recent Fever Within 48 Hours No Sepsis New/Unexplained Change in Mental Status No Sepsis Action Taken by Nursing No Action Required Oxygen Flow Rate - Titration 2 Pulse Oximetry Post Tiitration 98 08/14/19 16:00 08/14/19 16:13 08/14/19 16:30 Temperature Temperature Source Pulse Rate 61 60 Pulse Rate from SpO2 Sensor 60 60 Respiratory Rate 14 12 Respiratory Effort / Characteristics Respiratory Depth Respiratory Pattern Blood Pressure 163/80 H 163/80 H 171/100 H Blood Pressure Mean 131 131 139 Pulse Oximetry 97 97 Oxygen Delivery Method Nasal Cannula Oxygen Flow Rate 2 Sepsis Recent Fever Within 48 Hours Sepsis New/Unexplained Change in Mental Status Sepsis Action Taken by Nursing Oxygen Flow Rate - Titration Pulse Oximetry Post Tiitration 08/14/19 17:00 Temperature Temperature Source Pulse Rate 60 Pulse Rate from SpO2 Sensor Respiratory Rate 18 Respiratory Effort / Characteristics Respiratory Depth Respiratory Pattern Blood Pressure 186/84 H Blood Pressure Mean 142 Pulse Oximetry Oxygen Delivery Method Oxygen Flow Rate Sepsis Recent Fever Within 48 Hours Sepsis New/Unexplained Change in Mental Status Sepsis Action Taken by Nursing Oxygen Flow Rate - Titration Pulse Oximetry Post Tiitration General: Well developed chronically ill-appearing older male who appears in no acute distress, breathing comfortably on room air. Normal speech HEENT: Normal cephalic atraumatic. Pupils are equal round and reactive to light. Sclera anicteric. Extraocular movements are intact. Oropharynx is pink with moist mucous membranes. No swelling of the mouth lips or tongue. Neck: Supple with a midline trachea. No meningeal signs or stiffness, no JVD or bruits. No Stridor. Chest: Clear to auscultation bilaterally. No wheezes or rhonchi. No increased work of breathing. Heart: Regular rate and rhythm without murmurs or gallops. Abdomen: Soft nontender, nondistended without rebound guarding or rigidity. Extremities: No cyanosis clubbing or edema. No calf tenderness or assymetry. Fistula in left arm Spine/Back. Non tender to palpation. No CVA tenderness Skin: Good turgor without rashes. Neurologic exam: Cranial nerves two through 12 are intact. Motor and sensation are intact and symmetrical throughout. Medical Decision Making Differential Diagnosis Anemia, CHF, end-stage renal disease, electrolyte or metabolic abnormality, cardiac disease, sepsis Medical Records Attestation: I reviewed the patient's medical records. Home Medications Current Medication List: was personally reviewed by me Laboratory Data Attestation: I reviewed the patient's lab results. Result diagrams: 08/14/19 15:27 08/14/19 15:27 Lab Results 08/14/19 08/14/19 08/14/19 Range/Units 15:27 15:27 15:27 WBC 3.76 L (4.8-10.8) K/uL RBC 2.21 L (4.7-6.1) M/uL Hgb 6.7 L* (14.0-18.0) g/dL Hct 21.5 L (42-52) % MCV 97.3 (80-100) fL MCH 30.3 (25-34) pg MCHC 31.2 L (32-36) g/dL RDW Std Deviation 62.8 H (36.4-46.3) fL RDW Coeff of Jose C 17.6 H (11.5-14.5) % Plt Count 131 (130-400) K/uL MPV 10.6 H (7.4-10.4) fL Immature Gran % (Auto) 0.0 % Neut % (Auto) 67.0 % Lymph % (Auto) 12.2 % Gilchrist % (Auto) 12.0 % Eos % (Auto) 7.7 % Baso % (Auto) 1.1 % Immature Gran # (Auto) 0.00 (0.00-0.02) K/uL Neut # (Auto) 2.52 (1.4-6.5) K/uL Lymph # (Auto) 0.46 L (1.2-3.4) K/uL Gilchrist # (Auto) 0.45 (0.11-0.59) K/uL Eos # (Auto) 0.29 (0-0.5) K/uL Baso # (Auto) 0.04 (0-0.2) K/uL RBC Morphology Unremarkable Sodium 138 (136-145) mmol/L Potassium 3.9 (3.5-5.1) mmol/L Chloride 102 (98-107) mmol/L Carbon Dioxide 30 (21-32) mmol/L Anion Gap 6.0 (3-11) BUN 53 H (7-18) mg/dl Creatinine 5.81 H* (0.6-1.4) mg/dl Est Cr Clr Drug Dosing 13.0 ml/min Est GFR ( Amer) 10.0 Est GFR (Non-Af Amer) 8.6 BUN/Creatinine Ratio 9.3 L (10-20) Glucose 256 H (70-99) mg/dl Calcium 8.6 (8.5-10.1) mg/dl Total Bilirubin 0.5 (0.2-1) mg/dl AST 14 L (15-37) U/L ALT 22 (12-78) U/L Alkaline Phosphatase 96 (45-117) U/L Troponin I 0.037 (0-0.045) ng/ml Total Protein 5.9 L (6.4-8.2) gm/dl Albumin 2.7 L (3.4-5.0) gm/dl Globulin 3.2 (2.5-4.0) gm/dl Albumin/Globulin Ratio 0.8 L (0.9-2) Lipase 198 (73-393) U/L Blood Type B Positive Antibody Screen NEGATIVE Imaging Data Radiologist's Impression: X-ray of the chest moderate cardiomegaly with components of mild congestive heart failure. 2. Superimposed bibasilar parenchymal infiltrative change. ECG Data Attestation: I personally reviewed and interpreted this ECG as follows: Indication: + SOB/dyspnea Rate (beats per minute): 59 Rhythm: + sinus bradycardia ECG Intervals/blocks: + First degree AV block and + Right Bundle branch block ECG Portal: + Normal ECG ST segments: + repolarization abnormalities ECG Findings: + Other (t wave abnormaility) Comparison ECG Date: from (07/25/19) Change: no significant change MDM Narrative This patient comes in as described above. He was placed on a security monitor in room C7. Here for treatment and evaluation of shortness of breath. He does h ave a history of frequent blood transfusions. He also has a history of end- stage renal disease. He has not missed any dialysis. I did order IV access as well as blood work type and screen, EKG, and chest x-ray. He was reassessed frequently. His hemoglobin came back low at 6.7 and therefore I think he will likely need to be admitted for transfusion. He has no acute electrolyte or metabolic abnormalities besides baseline renal failure. EKG does not suggest acute ischemic changes or ectopy. Chest x-ray does show some congestive heart failure likely related to his fluid overload. Acutely does not appear to be in any distress but will need dialysis while in the hospital. Impression & Plan Anemia, GI bleed, CHF (congestive heart failure), ESRD (end stage renal disease), SOB (shortness of breath) Discharge Plan Visit Data *Final* Discharge Date/Time: 08/14/19 18:13 Chief Complaint: Shortness of Breath/Dyspnea Stated Complaint: SOB ED Provider: Terrence Brown Discharge Problem: Anemia, GI bleed, CHF (congestive heart failure), ESRD (end stage renal disease), SOB (shortness of breath) Patient Disposition: Admitted As Inpatient Discharge Instructions Interventions: ED Discharge Assessment Last Done: 08/14/19 18:13 Discharge Problem: Anemia Qualifiers: Anemia type: unspecified type Qualified Code(s): D64.9 - Anemia, unspecified GI bleed Qualifiers: GI bleed type/associated pathology: unspecified gastrointestinal hemorrhage type Qualified Code(s): K92.2 - Gastrointestinal hemorrhage, unspecified CHF (congestive heart failure) Qualifiers: Heart failure type: unspecified Heart failure chronicity: acute on chronic Qualified Code(s): I50.9 - Heart failure, unspecified
--- NOTE | 2019-08-14 15:31 | XRay Report ---
XR chest 1V portable CLINICAL HISTORY: Chest Pain pain COMPARISON STUDY: 07/23/2019 FINDINGS: Mild stable cardiomegaly. Components of congestive heart failure most likely present. Small superimposed left basilar parenchymal infiltrates. IMPRESSION: 1. Moderate cardiomegaly with components of mild congestive heart failure. 2. Superimposed bibasilar parenchymal infiltrative change. ACT 112: Negative or not required by law. The above report was generated using voice recognition software. It may contain grammatical, syntax or spelling errors. Electronically signed by: Osmany Marte M.D. 08/14/2019 3:30 PM
[2019-08-14 15:48] LABS: Hematocrit (blood only) 21.5 % (42-52); Hemoglobin 6.7 g/dL (14.0-18.0); Mean Corpuscular Hemoglobin 30.3 pg (25-34); Mean Corpuscular Hgb Conc 31.2 g/dL (32-36); Mean Corpuscular Volume 97.3 fL (80-100); Mean Platelet Volume 10.6 fL (7.4-10.4); Platelet Count 131 K/uL (130-400); RDW Coefficient of Variation 17.6 % (11.5-14.5); RDW Standard Deviation 62.8 fL (36.4-46.3); Red Blood Count 2.21 M/uL (4.7-6.1); White Blood Count 3.76 K/uL (4.8-10.8)
[2019-08-14 16:14] LABS: Basophils # (auto) 0.04 K/uL (0-0.2); Basophils % (auto) 1.1 %; Eosinophils # (auto) 0.29 K/uL (0-0.5); Eosinophils % (auto) 7.7 %; Lymphocytes # (auto) 0.46 K/uL (1.2-3.4); Lymphocytes % (auto) 12.2 %; Monocytes # (auto) 0.45 K/uL (0.11-0.59); Neutrophils # (auto) 2.52 K/uL (1.4-6.5); RBC Morphology Unremarkable
[2019-08-14 16:19] LABS: Albumin Globulin Ratio 0.8 (0.9-2); Albumin Level 2.7 gm/dl (3.4-5.0); BUN Creatinine Ratio 9.3 (10-20); Bilirubin,Total 0.5 mg/dl (0.2-1); Calcium 8.6 mg/dl (8.5-10.1); Est GFR (Non-African American) 8.6; Globulin 3.2 gm/dl (2.5-4.0); Potassium 3.9 mmol/L (3.5-5.1); Total Protein 5.9 gm/dl (6.4-8.2); Troponin I 0.037 ng/ml (0-0.045)
--- NOTE | 2019-08-14 17:01 | Electrocardiogram Report ---
Test Reason : Blood Pressure : / mmHG Vent. Rate : 059 BPM Atrial Rate : 059 BPM P-R Int : 218 ms QRS Dur : 172 ms QT Int : 524 ms P-R-T Axes : 092 099 -68 degrees QTc Int : 518 ms Sinus bradycardia with 1st degree A-V block Right bundle branch block T wave abnormality, consider inferolateral ischemia Abnormal ECG When compared with ECG of 25-JUL-2019 16:20, Criteria for Septal infarct are no longer Present Confirmed by Gus Mcclellan ([id number]) on 08/14/2019 5:00:21 PM Referred By: REFERRED SELF Confirmed By:Gus Mcclellan
--- NOTE | 2019-08-14 17:26 | History & Physical Report ---
Date of Service August 14, 2019 Assessment & Plan (1) Symptomatic anemia: Hx of same 2 units PRBC, recheck H/H later tonight and further PRBC if needed CBC in AM Hemoccult pending Pt may benefit from palliative care c/s given ongoing and increased frequency of transfusions (2) PNA (pneumonia): Noted on CXR Ceftriaxone started on admission Monitor (3) CHF (congestive heart failure): Noted on CXR Due for lasix tomorrow Full HD yesterday per pt Monitor given HD status (4) Hypertension: continue home meds (5) Elevated troponin: At pt's baseline, will not check serials (6) Diabetes: SSI PRN Determir A1c pending (7) Chronic kidney disease, stage IV (severe): // HD Follows with Dr. Briceno Baseline cr is 4.6 roughly Hx of HD yesterday that pt states was a usual tx (8) Anxiety: continue home meds (9) Depression: continue home meds (10) Diabetic peripheral neuropathy: continue home meds (11) Hiatal hernia with GERD without esophagitis: continue home meds (12) Obstructive sleep apnea: HS O2 as at home (13) BPH (benign prostatic hyperplasia): continue home meds (14) COPD (chronic obstructive pulmonary disease): continue home meds (15) Hypothyroidism: continue home meds (16) DVT prophylaxis: SCDs given anemia History of Present Illness Primary Care Provider: Mahsa Wang, 79 y/o M c/o SOB. "I need blood." Pt has had worsening SOB for the last few days with exertion only. He states he feels fine otherwise. He states this is how he usually feels when he needs a transfusion. Pt had HD yesterday and states it was his usual session. Pt denies fever, chest pain, abd pain, n/v/c/d, LE pain or swelling. Pt states he has dark stools, but they are usually dark due to iron use. Allergies Allergy/AdvReac Type Severity Reaction Status Date / Time sucralfate [From Carafate] Allergy Mild upset Verified 08/14/19 16:19 dialysis tramadol AdvReac Severe disorented Verified 08/14/19 16:19 ,falling down metformin AdvReac Intermediate CONFUSION Verified 08/14/19 16:19 Home Medications Home Medications Medication Instructions Recorded Confirmed Type tamsulosin 0.4 mg PO HS #90 cap 01/02/19 08/14/19 Rx docusate sodium 100 mg capsule 200 mg PO QAM #30 cap 01/19/19 08/14/19 Rx gabapentin 100 mg capsule 200 mg PO HS #60 cap 02/04/19 08/14/19 Rx levothyroxine 200 mcg PO QAM 02/15/19 08/14/19 History insulin detemir U-100 100 unit/mL 15 units SUBCUT HS ml 03/25/19 08/14/19 History subcutaneous solution rosuvastatin 20 mg PO HS 04/07/19 08/14/19 History pantoprazole 40 mg PO BID 04/25/19 08/14/19 History Renal Caps 1 cap PO QDL 05/23/19 08/14/19 History calcium acetate(phosphat bind) 667 2,001 mg PO TIDM tab 06/02/19 08/14/19 History mg tablet hydralazine 25 mg tablet 50 mg PO TIDM tab 06/02/19 08/14/19 History insulin aspart U-100 [Novolog 0 sliding scale dose SUBCUT 06/06/19 08/14/19 History U-100 Insulin aspart] USEASDIRECTD labetalol 200 mg PO BID 06/06/19 08/14/19 History amlodipine 10 mg PO HS 06/13/19 08/14/19 History doxazosin [Cardura] 1 mg PO QAM 06/23/19 08/14/19 History folic acid 1 mg tablet 1 mg PO DAILY 07/10/19 08/14/19 History bumetanide 1 mg tablet 2 mg PO BID #120 tab 07/16/19 08/14/19 Rx levothyroxine 100 mcg PO QAM 07/19/19 08/14/19 History octreotide acetate 50 mcg SQ Q8H 30 Days #90 ml 07/20/19 08/14/19 Rx lisinopril 40 mg PO DAILY 07/23/19 08/14/19 History cyanocobalamin (vitamin B-12) 1,000 mcg PO HS 08/14/19 08/14/19 History [Vitamin B-12] ferrous sulfate 325 mg PO BID 08/14/19 08/14/19 History triamcinolone acetonide [Triderm] 1 applic TOPICAL BID 08/14/19 08/14/19 History Past Med/Surg History Medical History Acute blood loss anemia Anxiety Arthritis Asthma AVF (arteriovenous fistula) left arm BPH (benign prostatic hyperplasia) CAD (coronary artery disease) Chronic diastolic congestive heart failure Chronic kidney disease, stage IV (severe) dialysis - [facility], sat at [place] follow with dr herrera Colon, diverticulosis 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, with long-term current use of insulin COPD (chronic obstructive pulmonary disease) Depression Diabetic peripheral neuropathy 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) (Acute) GERD (gastroesophageal reflux disease) Hearing difficulty Hyperlipidemia LDL goal <70 Hypnic jerks Memory loss Mitral regurgitation Obstructive sleep apnea uses oxygen 2 l nc at Pulmonary hypertension Secondary hyperparathyroidism of renal origin Uncontrolled daytime somnolence sleeps thru day and cant sleep at [facility] Surgical History H/O cardiac catheterization many years ago - over 10 years no stents follow with [facility] H/O esophagogastroduodenoscopy 02/16/19 and 03/2019 [facility]- Dr. Mando White. 50mg propofol, no issues. H/O hemorrhoidectomy History of esophagogastroduodenoscopy (EGD) x 2 at [facility] during admission from 05/23/19-05/30/19 Hx of cholecystectomy Family History Unknown Myocardial infarction Diabetes Mother Diabetes Gallbladder disease Hypertension Breast cancer late 70s Father Diabetes Hypertension Brother Diabetes Hypertension Kidney disease Denies family history of Ovarian cancer Prostate cancer Lung cancer Colorectal cancer Social History Preferred Language: Bangladeshi Communication Ability: Effective Visual Impairment: No Limitations Hearing Ability: Hard of Hearing Fire Dispatcher Required: No Beliefs That Will Affect Care: None marital status: Current Living Situation: Spouse current occupational status: disabled current occupation: works part-time at [employer] Feels Safe at Home: Yes Smoking Status: Former smoker Tobacco Type: cigarettes ; Number of Years Since Quit: 25 ; Second Hand Exposure: No ; Hx Alcohol Use: No Hx Substance Use: No Childhood Exposure to Second-Hand Smoke: No Diet Comment: regular caffeine: Yes during the past year weight has: remained stable Dental Care, Regularly: Yes Physical Activity Frequency: Does not Exercise Physical Activity Frequency Comment: limited due physical condition Seatbelt Use: sometimes Sunscreen Use: No Review of Systems Review of Systems: Pertinent positives and negatives reviewed in HPI--all others negative Physical Exam Constitutional: WD/WN, vitals as above Eyes: normal visual arreaga by confrontation and + anicteric sclerae Neck: normal visual inspection and trachea midline Respiratory: normal respiratory effort; no respiratory distress and no labored breathing Auscultation: + crackles; no wheezes Cardiovascular: Rate/Rhythm: regular rate and regular rhythm Gastrointestinal (Abdomen): Inspection/Auscultation: abdomen not distended Percussion/Palpation: abdomen soft; abdomen nontender Musculoskeletal: Head/Neck/Chest: normocephalic and head atraumatic negative for edema, peripheral pulses intact Skin: no rashes, warm and dry + pallor Neurologic: awake; not confused Speech / Cognition: normal speech Psychiatric: A+Ox3, euthymic affect Results & Data Vital Signs (Past 12 Hours) Vital Signs Temp Pulse Resp BP Pulse Ox 08/14/19 17:00 60 18 186/84 H 08/14/19 16:30 171/100 H 08/14/19 16:13 60 12 163/80 H 97 08/14/19 16:00 61 14 163/80 H 97 08/14/19 15:48 98 08/14/19 15:30 61 16 147/73 H 90 08/14/19 15:05 36.9 C 61 20 159/57 H 92 Diagnostic Findings CXR: CHF, bibasilar PNA Code Status & VTE Plan Code Status Full code "whatever it takes" VTE Prophylaxis Plan VTE Prophylaxis will be ordered: Yes PG Care Time/CCT Total # of Minutes Spent Total Time Spent with Patient: Total time spent is greater than 50% in coordination of care (as documented) at patient's floor/unit and/or counseling patient: Coding Level of Care Code 58813 Initial Inpt Care Lvl 3 Diagnoses Symptomatic anemia D64.9 PNA (pneumonia) J18.9 CHF (congestive heart failure) I50.9 Heart failure chronicity: unspecified Heart failure type: unspecified Hypertension I15.0 Hypertension type: renovascular hypertension Elevated troponin R79.89 Diabetes E11.22; N18.6; Z79.4; Z99.2 Diabetes mellitus type: type 2 Diabetes mellitus shelter insulin use: with long term care social worker use Diabetes mellitus complication status: with kidney complications Diabetes mellitus complication detail: with chronic kidney disease Chronic kidney disease stage: on chronic dialysis Chronic kidney disease, stage IV (severe) N18.4 Anxiety F41.9 Depression F32.89 Depression Type: other depression Diabetic peripheral neuropathy E11.42 Hiatal hernia with GERD without esophagitis K44.9; K21.9 Obstructive sleep apnea G47.33 BPH (benign prostatic hyperplasia) N40.0 Lower urinary tract symptom presence: unspecified whether lower urinary tract symptoms present COPD (chronic obstructive pulmonary disease) J44.9 COPD type: unspecified COPD Hypothyroidism E03.9 Hypothyroidism type: unspecified DVT prophylaxis Z29.9 (1) CHF (congestive heart failure) Heart failure chronicity: unspecified Heart failure type: unspecified Qualified Code(s): I50.9 - Heart failure, unspecified (2) Hypothyroidism Hypothyroidism type: unspecified Qualified Code(s): E03.9 - Hypothyroidism, unspecified (3) Hypertension Hypertension type: renovascular hypertension Qualified Code(s): I15.0 - Renovascular hypertension (4) Diabetes Diabetes mellitus type: type 2 Diabetes mellitus long term care social worker insulin use: with long term care social worker use Diabetes mellitus complication status: with kidney complications Diabetes mellitus complication detail: with chronic kidney disease Chronic kidney disease stage: on chronic dialysis Qualified Code(s): E11.22 - Type 2 diabetes mellitus with diabetic chronic kidney disease; N18.6 - End stage renal disease; Z79.4 - penitentiary (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 (5) Depression Depression Type: other depression Qualified Code(s): F32.89 - Other specified depressive episodes (6) BPH (benign prostatic hyperplasia) Lower urinary tract symptom presence: unspecified whether lower urinary tract symptoms present Qualified Code(s): N40.0 - Benign prostatic hyperplasia without lower urinary tract symptoms (7) COPD (chronic obstructive pulmonary disease) COPD type: unspecified COPD Qualified Code(s): J44.9 - Chronic obstructive pulmonary disease, unspecified
[2019-08-14] MEDS ORDERED: MAGNESIUM HYDROXIDE SUSP 30 ML UDC PO PRN (18:45)
[2019-08-14] MEDS ORDERED: ACETAMINOPHEN 325 MG TAB PO PRN (18:45)
[2019-08-14] MEDS ORDERED: GLUCOSE 10 TABS/TUBE PO PRN (18:45)
[2019-08-14] MEDS ORDERED: GLUCOSE 40% GEL 15 GM TUBE PO PRN (18:45)
[2019-08-14] MEDS ORDERED: DEXTROSE 50% 50 ML SYRINGE IV PRN (18:45)
[2019-08-14] MEDS ORDERED: GLUCAGON FOR INJ 1 MG VIAL SQ PRN (18:45)
[2019-08-14] MEDS ORDERED: CARBOHYDRATES FOR HYPOGLYCEMIA PO PRN (18:45)
[2019-08-14] MEDS ORDERED: SODIUM CHLORIDE 0.9% 250 ML IV PRN ×2 (18:45→20:49)
[2019-08-14] MEDS ORDERED: ONDANSETRON INJ 2 MG/ML 2 ML VIAL IV PRN (18:45)
[2019-08-14 19:53] LABS: Hematocrit (blood only) 21.7 % (42-52); Hemoglobin 6.8 g/dL (14.0-18.0)
[2019-08-14] MEDS: cefTRIAXone SODIUM 1,000 MG in DEXTROSE 5% 50 ML IV SCH ×2 (21:18→22:14)
[2019-08-14] MEDS: ROSUVASTATIN CALCIUM 20 MG TAB PO SCH (21:19)
[2019-08-14] MEDS: BUMETANIDE 1 MG TAB PO SCH (21:19)
[2019-08-14] MEDS: FERROUS SULFATE 325 MG TAB PO SCH (21:19)
[2019-08-14] MEDS: TRIAMCINOLONE ACET 0.1% CR 15 GM TUBE TOP SCH (21:20)
[2019-08-14] MEDS: GABAPENTIN 100 MG CAP PO SCH (21:20)
[2019-08-14] MEDS: LABETALOL HCL 200 MG TAB PO SCH (21:20)
[2019-08-14] MEDS: AMLODIPINE BESYLATE 5 MG TAB PO SCH (21:20)
[2019-08-14] MEDS: TAMSULOSIN HCL 0.4 MG CAP PO SCH (21:20)
[2019-08-14] MEDS: PANTOprazole 40 MG TAB PO SCH (21:21)
[2019-08-14] MEDS: CYANOCOBALAMIN 500 MCG TABLET (VITAMIN B-12) PO SCH (21:21)
[2019-08-14] MEDS: INSULIN DETEMIR FLEXPEN/FLEX TOUCH 100 UNITS/ML 3ML SC SCH (21:22)
[2019-08-14] MEDS: OCTREOTIDE ACETATE 100 MCG/ML VIAL SQ SCH (21:22)
[2019-08-14] MEDS: INSULIN ASPART 100 UNITS/ML 3 ML PEN SC SCH (21:23)
[2019-08-15] MEDS: OCTREOTIDE ACETATE 100 MCG/ML VIAL SQ SCH ×2 (05:58→14:41)
[2019-08-15] MEDS: BUMETANIDE 1 MG TAB PO SCH ×2 (05:58→19:42)
[2019-08-15 06:03] LABS: Basophils # (auto) 0.03 K/uL (0-0.2); Basophils % (auto) 0.7 %; Eosinophils # (auto) 0.37 K/uL (0-0.5); Eosinophils % (auto) 9.2 %; Hematocrit (blood only) 25.2 % (42-52); Hemoglobin 8.1 g/dL (14.0-18.0); Immature Granulocytes # (auto) 0.01 K/uL (0.00-0.02); Immature Granulocytes % (auto) 0.2 %; Lymphocytes # (auto) 0.52 K/uL (1.2-3.4); Lymphocytes % (auto) 12.9 %; Mean Corpuscular Hemoglobin 30.6 pg (25-34); Mean Corpuscular Hgb Conc 32.1 g/dL (32-36); Mean Corpuscular Volume 95.1 fL (80-100); Mean Platelet Volume 10.2 fL (7.4-10.4); Monocytes % (auto) 7.5 %; Neutrophils # (auto) 2.79 K/uL (1.4-6.5); Neutrophils % (auto) 69.5 %; Platelet Count 114 K/uL (130-400); RDW Coefficient of Variation 17.2 % (11.5-14.5); RDW Standard Deviation 59.5 fL (36.4-46.3); Red Blood Count 2.65 M/uL (4.7-6.1); White Blood Count 4.02 K/uL (4.8-10.8)
[2019-08-15] MEDS ORDERED: LEVOTHYROXINE SODIUM 200 MCG TABLET PO SCH (06:30)
[2019-08-15] MEDS ORDERED: LEVOTHYROXINE SODIUM 100 MCG TABLET PO SCH (06:30)
[2019-08-15 06:53] LABS: BUN Creatinine Ratio 9.8 (10-20); Calcium 8.6 mg/dl (8.5-10.1); Creatinine Clr Calc Pharmacy 11.4 ml/min; Est GFR (African American) 8.5; Est GFR (Non-African American) 7.3; Potassium 4.1 mmol/L (3.5-5.1)
[2019-08-15 06:54] LABS: Estimated Average Glucose 120 mg/dl; Hemoglobin A1C 5.8 % (4.5-5.6)
[2019-08-15] MEDS: CALCIUM ACETATE 667 MG CAP/TAB PO SCH ×3 (08:30→19:41)
[2019-08-15] MEDS: FERROUS SULFATE 325 MG TAB PO SCH ×2 (08:31→20:37)
[2019-08-15] MEDS: LABETALOL HCL 200 MG TAB PO SCH ×2 (08:31→20:37)
[2019-08-15] MEDS: PANTOprazole 40 MG TAB PO SCH ×2 (08:32→20:39)
[2019-08-15] MEDS: HydrALAZINE TAB 50 MG TAB PO SCH ×3 (08:32→19:41)
[2019-08-15] MEDS: TRIAMCINOLONE ACET 0.1% CR 15 GM TUBE TOP SCH ×2 (08:33→20:36)
[2019-08-15] MEDS: INSULIN ASPART 100 UNITS/ML 3 ML PEN SC SCH ×4 (08:36→20:41)
[2019-08-15] MEDS ORDERED: DOCUSATE SODIUM 100 MG CAP PO SCH (09:00)
[2019-08-15] MEDS ORDERED: FOLIC ACID 1 MG TAB PO SCH (09:00)
[2019-08-15] MEDS ORDERED: SODIUM CHLORIDE 0.9% 1000ML 1,000 ML IV PRN (10:58)
[2019-08-15] MEDS ORDERED: EPOETIN ALFA 10,000 UNITS/ML VIAL IV SCH (11:15)
[2019-08-15] MEDS ORDERED: NEPHROCAPS PO SCH (11:30)
[2019-08-15] MEDS ORDERED: DOXAZOSIN MESYLATE 1 MG TAB PO SCH (11:30)
[2019-08-15] MEDS ORDERED: lisinopriL 40 MG TAB PO SCH (12:00)
--- NOTE | 2019-08-15 14:03 | Nephrology Consultation ---
Date of Consultation August 15, 2019 Assessment & Plan (1) ESRD (end stage renal disease) on dialysis: -- ESRD. On IHD TTS at [facility] (4hr 2K 2.5Ca F-200NR EDW 97.5 kg - primary Hand Finisher Dr. Briceno) -- Will provide 3 hours heparin free HD today and attempt 2 L UF to attain EDW of 97.5 kg. Orders placed in EMR and HD RN notified (2) Anemia: -- Patient transfused 2 U PRBC last night. Currently denies dyspnea -- Reports melanotic stool but remains on oral iron therapy -- Suspect ongoing GI blood loss. Consider consultation w/ GI. Question whether there are VIR or surgical options (3) GAVE (gastric antral vascular ectasia): -- On PPI therapy History of Present Illness Reason for Consultation: ESRD on IHD Attending Physician: Phylicia Alan MD History of Present Illness Mr. Mcintyre is a 79 year old white male who is seen at the request of Dr. Alan to provide inpatient HD and assist w/ medical management. Medical records in the EMR were reviewed today and are summarized as follows: Mr. Mcintyre has ESRD due to diabetic nephropathy. He has been on IHD since 12/16 ([facility] [place] TTS 4hr 2K 2.5Ca F-200NR EDW 97.5 kg - primary Hand Finisher Dr. Briceno). His medical history is significant for HTN, AODM, vascular dementia, IgG monoclonal gammopathy, EFREN, BPH, hypothyroidism, EKLUTNA and CHF w/ diastolic dysfunction. Mr. Mcintyre has required several recent hospitalizations due to anemia and weakness. EGD revealed vascular ectasis of the gastric antrum. Cauterization was provided but melena recurred. Mr. Mcintyre was hospitalized 05/21 due to GI bleeding. He was transferred to [facility] 05/23 - 05/31. He required EGD x2 for cauterization of gastric AVM's and transfusion w/ 8 units PRBC. Mr. Mcintyre has since had several [facility] hospitalizations for blood transfusion. Mr. Mcintyre reports that he has been adherent to his prescribed dialysis schedule. He remains on oral iron therapy and has black stool. Over the last 24 hours he has become progressively short of breath. In the ED RA SaO2 was 88%. Hgb was 6.7. Mr. Mcintyre was admitted for blood transfusion and inpatient HD Allergies Allergy/AdvReac Type Severity Reaction Status Date / Time sucralfate [From Carafate] Allergy Mild upset Verified 08/14/19 16:19 dialysis tramadol AdvReac Severe disorented Verified 08/14/19 16:19 ,falling down metformin AdvReac Intermediate CONFUSION Verified 08/14/19 16:19 Home Medications Home Medications Medication Instructions Recorded Confirmed Type tamsulosin 0.4 mg PO HS #90 cap 01/02/19 08/14/19 Rx docusate sodium 100 mg capsule 200 mg PO QAM #30 cap 01/19/19 08/14/19 Rx gabapentin 100 mg capsule 200 mg PO HS #60 cap 02/04/19 08/14/19 Rx levothyroxine 200 mcg PO QAM 02/15/19 08/14/19 History insulin detemir U-100 100 unit/mL 15 units SUBCUT HS ml 03/25/19 08/14/19 History subcutaneous solution rosuvastatin 20 mg PO HS 04/07/19 08/14/19 History pantoprazole 40 mg PO BID 04/25/19 08/14/19 History Renal Caps 1 cap PO QDL 05/23/19 08/14/19 History calcium acetate(phosphat bind) 667 2,001 mg PO TIDM tab 06/02/19 08/14/19 History mg tablet hydralazine 25 mg tablet 50 mg PO TIDM tab 06/02/19 08/14/19 History insulin aspart U-100 [Novolog 0 sliding scale dose SUBCUT 06/06/19 08/14/19 History U-100 Insulin aspart] USEASDIRECTD labetalol 200 mg PO BID 06/06/19 08/14/19 History amlodipine 10 mg PO HS 06/13/19 08/14/19 History doxazosin [Cardura] 1 mg PO QAM 06/23/19 08/14/19 History folic acid 1 mg tablet 1 mg PO DAILY 07/10/19 08/14/19 History bumetanide 1 mg tablet 2 mg PO BID #120 tab 07/16/19 08/14/19 Rx levothyroxine 100 mcg PO QAM 07/19/19 08/14/19 History octreotide acetate 50 mcg SQ Q8H 30 Days #90 ml 07/20/19 08/14/19 Rx lisinopril 40 mg PO DAILY 07/23/19 08/14/19 History cyanocobalamin (vitamin B-12) 1,000 mcg PO HS 08/14/19 08/14/19 History [Vitamin B-12] ferrous sulfate 325 mg PO BID 08/14/19 08/14/19 History triamcinolone acetonide [Triderm] 1 applic TOPICAL BID 08/14/19 08/14/19 History Patient History Medical History Acute blood loss anemia Anxiety Arthritis Asthma AVF (arteriovenous fistula) left arm BPH (benign prostatic hyperplasia) CAD (coronary artery disease) Chronic diastolic congestive heart failure Chronic kidney disease, stage IV (severe) dialysis - [facility], sat at [facility] follow with dr sharon Teague, diverticulosis 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, with long-term current use of insulin COPD (chronic obstructive pulmonary disease) Depression Diabetic peripheral neuropathy 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) (Acute) GERD (gastroesophageal reflux disease) Hearing difficulty Hyperlipidemia LDL goal <70 Hypnic jerks Memory loss Mitral regurgitation Obstructive sleep apnea uses oxygen 2 l nc at Pulmonary hypertension Secondary hyperparathyroidism of renal origin Uncontrolled daytime somnolence sleeps thru day and cant sleep at [facility] Surgical History H/O cardiac catheterization many years ago - over 10 years no stents follow with [facility]ung H/O esophagogastroduodenoscopy 02/16/19 and 03/2019 [facility]- Dr. Mando White. 50mg propofol, no issues. H/O hemorrhoidectomy History of esophagogastroduodenoscopy (EGD) x 2 at [facility] during admission from 05/23/19-05/30/19 Hx of cholecystectomy Family History Unknown Myocardial infarction Diabetes Mother Diabetes Gallbladder disease Hypertension Breast cancer late 70s Father Diabetes Hypertension Brother Diabetes Hypertension Kidney disease Denies family history of Ovarian cancer Prostate cancer Lung cancer Colorectal cancer Social History Preferred Language: Tamazight Communication Ability: Effective Visual Impairment: No Limitations Hearing Ability: Hard of Hearing Potato Seed Cutter Required: No Beliefs That Will Affect Care: None marital status: Current Living Situation: Spouse current occupational status: disabled current occupation: works part-time at [employer] Other Information That Helps Us Care for You: No Feels Safe at Home: Yes Safety Concerns: Feels Safe At This Time Smoking Status: Former smoker Tobacco Type: cigarettes ; Do You Dip or Chew Tobacco: No ; Number of Years Since Quit: 25 ; Second Hand Exposure: No ; Hx Alcohol Use: No Hx Substance Use: No Childhood Exposure to Second-Hand Smoke: No Diet Comment: regular caffeine: Yes during the past year weight has: remained stable Dental Care, Regularly: Yes Physical Activity Frequency: Does not Exercise Physical Activity Frequency Comment: limited due physical condition Seatbelt Use: sometimes Sunscreen Use: No Review of Systems Constitutional: + weakness; no fever Eyes: no worsening vision and no problem reported Ear, Nose, Mouth, Throat: + problem reported (hard of hearing) Respiratory: no cough and no dyspnea Cardiovascular: no chest pain, no palpitations and no edema Gastrointestinal: no abdominal pain, no nausea, no vomiting and no diarrhea/loose stools Musculoskeletal: no back pain Integumentary: no rash Neurologic: no falls, no dizziness and no confusion Physical Exam Constitutional: not in distress Eyes: PERRL, conjunctivae normal, anicteric sclerae ENMT: external ear and nose normal, oropharynx normal Neck: trachea midline, no thyromegaly Respiratory: normal respiratory effort, lungs clear to auscultation Cardiovascular: RRR, no murmur, no edema Extremities: + AV fistula (L arm AVF + bruit) Gastrointestinal (Abdomen): normal bowel sounds, soft, nontender, no hepatosplenomegaly Musculoskeletal: Extremities: no cyanosis Skin: no rashes, warm and dry Neurologic: awake; not confused Results & Data Vital Signs (Past 12 Hours) Vital Signs Temp Pulse Pulse Resp BP BP Pulse Ox 08/15/19 11:24 36.4 C L 60 18 162/72 H 87 L 08/15/19 07:35 36.5 C 56 L 18 161/67 H 90 08/15/19 07:14 56 L 08/15/19 03:30 36.4 C L 58 L 58 L 16 173/72 H 173/72 H 92 08/15/19 02:30 36.6 C 55 L 18 172/71 H 92 08/15/19 02:00 37.0 C 59 L 16 179/71 H 91 Laboratory Tests 08/15/19 08/15/19 08/15/19 05:37 05:37 05:37 WBC 4.02 L Hgb 8.1 L Hct 25.2 L Plt Count 114 L Sodium 142 Potassium 4.1 Chloride 103 Carbon Dioxide 32 BUN 65 H Creatinine 6.63 H* D Glucose 65 L Hemoglobin A1c 5.8 H PG Care Time/CCT Total # of Minutes Spent Total Time Spent with Patient: Total time spent is greater than 50% in coordination of care (as documented) at patient's floor/unit and/or counseling patient: Coding Level of Care Code 88109 Inpt Consult Level 5 Diagnoses ESRD (end stage renal disease) on dialysis N18.6; Z99.2 Anemia D64.9 Anemia type: unspecified type GAVE (gastric antral vascular ectasia) K31.819 (1) Anemia Anemia type: unspecified type Qualified Code(s): D64.9 - Anemia, unspecified
[2019-08-15] MEDS ORDERED: SODIUM CHLORIDE 0.9% 250 ML IV PRN (14:49)
[2019-08-15] MEDS: cefTRIAXone SODIUM 1,000 MG in DEXTROSE 5% 50 ML IV SCH (19:46)
--- NOTE | 2019-08-15 20:36 | Discharge Summary ---
Date of Service August 15, 2019 Admission HPI Per Admitting Provider 79 y/o M c/o SOB. "I need blood." Pt has had worsening SOB for the last few days with exertion only. He states he feels fine otherwise. He states this is how he usually feels when he needs a transfusion. Pt had HD yesterday and states it was his usual session. Pt denies fever, chest pain, abd pain, n/v/c/d, LE pain or swelling. Pt states he has dark stools, but they are usually dark due to iron use. Principal Diagnosis Acute on chronic blood loss anemia, GAVE Symptomatic anemia Discharge Exam Constitutional + ill appearing (chronically ill-appearing,appears older than given age) and average body habitus; no acute distress Eyes + anicteric sclerae ENMT external ear and nose normal, oropharynx normal Neck trachea midline, no thyromegaly Respiratory normal respiratory effort Auscultation: + diminished lung sounds (throughout) and + crackles (bibasilar, mild); no rhonchi and no wheezes Cardiovascular RRR, no murmur, no edema Chest (Breasts) Chest: normal inspection of chest Gastrointestinal (Abdomen) normal bowel sounds, soft, nontender, no hepatosplenomegaly Musculoskeletal Extremities: extremities normal to inspection; no cyanosis and no clubbing Skin no rashes, warm and dry Neurologic moves all extremities and awake; no focal motor deficits Psychiatric Orientation: alert, oriented to person, oriented to place, oriented to time and cooperative Affect: + irritable affect Lymphatic no lymphedema Discharge Data Allergies Allergy/AdvReac Type Severity Reaction Status Date / Time sucralfate [From Carafate] Allergy Mild upset Verified 08/19/19 07:55 dialysis tramadol AdvReac Severe disorented Verified 08/19/19 07:55 ,falling down metformin AdvReac Intermediate CONFUSION Verified 08/19/19 07:55 Consultations 08/14/19 16:44 ED Decision to Admit Stat 08/14/19 18:45 Consult Case Management - Discharge Planning Routine Consult Nephrology Routine Ordered Studies CXR Hospital Course (1) Symptomatic anemia: Has acute on chronic blood loss anemia secondary to GAVE. Has had repeated transfusions and EGDs with argon plasma coagulation (APC) therapy, most recent 07/20/19. Hgb 6.8 on admission and was 8.1 just 5 days prior Has chronic black stools on FeSO4 therapy as outpt Was given a total of 3 units PRBC over two days here with hemodialysis and tolerated well. Hgb was only 8.1 after 2 units so was given a third unit prior to discharge and Hgb not repeated after that Dyspnea now resolved CBC in AM Hemoccult pending Informed his GI MD of his admission and he will have pt f/u as an outpt in the near future for repeat EGD. -continue ONCE WEEKLY CBCs and attempt to have transfusions done as an outpatient to avoid inpatient admission for transfusion Stable hemodynamically for discharge to home (2) GI bleed: secondary to GAVE -as above (3) GAVE (gastric antral vascular ectasia): known diagnosis, causes chronic GI bleeding requiring transfusions and EGDs with APC treatment periodically (4) Acute on chronic blood loss anemia: as above (5) ESRD (end stage renal disease) on dialysis: // HD Follows with Dr. Briceno Baseline cr is 4.6 roughly received HD here prior to discharge (6) PNA (pneumonia): Noted on CXR but no synmptoms of this at all--> no fever or leukocytosis, no cough Ceftriaxone started on admission but will not be continued upon discharge Repeat CXR as outpt in 2-3 weeks-may have been volume overload from being a dialysis patient (7) CHF (congestive heart failure): Noted on CXR continue home diuretics and HD (8) Hypertension: continue home meds of lisinopril, amlodipine, labetalol, hydralazine, and doxazosin -hold meds for HD (9) Elevated troponin: At pt's baseline, will not check serials No chest pains (10) Diabetes: SSI PRN Determir (11) Diabetic peripheral neuropathy: continue home gabapentin (12) Hiatal hernia with GERD without esophagitis: continue home PPI bid (13) Obstructive sleep apnea: HS O2 as at home (14) BPH (benign prostatic hyperplasia): continue home Flomax, also noted to be on doxazosin (15) COPD (chronic obstructive pulmonary disease): no acute exacerbation -has no inhalers listed on home meds -f/u with PCP (16) Hypothyroidism: TSH elevated at 20 one month ago and LT4 increased then to 300mcg daily -suspect has gut edema or taking LT4 along with binders or food? -ensure has proper education on dosing of LT4 -f/u with PCP and suspect repeat TFTs will be undertaken in the near future (17) Anemia of renal disease: followed by Nephro -follow CBC once weekly as above -continue po iron therapy and transfusions as needed (18) DVT prophylaxis: SCDs given anemia and GIB Dispo-stable for dc to home Total Time Total Time Spent Total Time Spent (In Minutes): 45 min Total Time Includes: Examination of the Patient, Discharge Planning, Medication Reconciliation and Communication With Other Providers (Nephrology, GI) Discharge Plan Discharge Items Patient Disposition: Home - Home Health Services Reason For Visit: ANEMIA,PNA Discharge Diagnosis: Anemia Activity: Resume your previous activity Non-emergency contact: Primary Care Provider Call non-emergency contact if: you have any medication questions and your symptoms worsen Follow-up/Referrals: Mahsa Wang DO [Primary Care Provider] - (Follow up within 1 week.) Mando White [Physician] - (Follow up for EGD within 1-2 weeks) Diet: Dialysis Renal and Heart Healthy Addtl Attending Provider Instructions: You were admitted for shortness of breath from your anemia. You were transfused 3 units of blood and had dialysis while you were here. Please have your complete blood count lab work drawn ONCE WEEKLY with results sent to your PCP. Dr. White from GI was aware you were in the hospital and wanted to perform another EGD in the near future to cauterize any bleeding spots in your stomach. Follow up with your PCP within 1 week. Pending Studies at Discharge: No Stand-Alone Forms: My [facility] Medications and DC Order Prescriptions: Continued gabapentin 100 mg capsule 200 mg PO HS Qty: 60 RF: 5 calcium acetate(phosphat bind) 667 mg tablet 2,001 mg PO TIDM RF: 0 hydralazine 25 mg tablet 50 mg PO TIDM RF: 0 bumetanide 1 mg tablet 2 mg PO BID Qty: 120 RF: 2 folic acid 1 mg tablet 1 mg PO DAILY RF: 0 docusate sodium 100 mg capsule 200 mg PO QAM Qty: 30 RF: 0 Levemir U-100 Insulin 100 unit/mL solution 15 units subcut HS RF: 0 Renal Caps 1 mg Capsule 1 cap PO QDL RF: 0 amlodipine 10 mg tablet 10 mg PO HS RF: 0 doxazosin [Cardura] 1 mg tablet 1 mg PO QAM RF: 0 tamsulosin 0.4 mg capsule 0.4 mg PO HS Qty: 90 RF: 1 levothyroxine 200 mcg tablet 300 mcg PO QAM RF: 0 rosuvastatin 20 mg tablet 20 mg PO HS RF: 0 pantoprazole 40 mg tablet,delayed release (DR/EC) 40 mg PO BID RF: 0 labetalol 200 mg Tablet 200 mg PO BID RF: 0 insulin aspart U-100 [Novolog U-100 Insulin aspart] 100 unit/mL solution 0 sliding scale dose subcut USEASDIRECTD RF: 0 lisinopril 40 mg tablet 40 mg PO DAILY RF: 0 cyanocobalamin (vitamin B-12) [Vitamin B-12] 1,000 mcg Tablet 1,000 mcg PO HS RF: 0 ferrous sulfate 325 mg (65 mg iron) tablet,delayed release (DR/EC) 325 mg PO BID RF: 0 triamcinolone acetonide [Triderm] 0.1 % cream 1 applic TOPICAL BID RF: 0 Discharge Orders: Discharge Order (Routine); Ordered 08/15/19 Ordered By: Phylicia Alan Admission Data Admit Date/Time: 08/14/19 17:25 Attending Provider: Phylicia Alan Admit Provider: Raina Funes Primary Care Provider: Mahsa Wang Other Providers: Eugene Busby Other Interventions: Discharge Summary Assessment (RN) Last Done: 08/15/19 20:50 DC Date/Time DO NOT enter until pt leaves facility: 08/15/19 21:26 Coding Level of Care Code D/C Day Management >30 mins Diagnoses Symptomatic anemia D64.9 GI bleed K92.2 GI bleed type/associated pathology: unspecified gastrointestinal hemorrhage type GAVE (gastric antral vascular ectasia) K31.819 Acute on chronic blood loss anemia D62 ESRD (end stage renal disease) on dialysis N18.6; Z99.2 PNA (pneumonia) J18.9 CHF (congestive heart failure) I50.9 Heart failure chronicity: unspecified Heart failure type: unspecified Hypertension I15.0 Hypertension type: renovascular hypertension Elevated troponin R79.89 Diabetes E11.22; N18.6; Z79.4; Z99.2 Chronic kidney disease stage: on chronic dialysis Diabetes mellitus complication detail: with chronic kidney disease Diabetes mellitus complication status: with kidney complications Diabetes mellitus assisted insulin use: with long term care pharmacist use Diabetes mellitus type: type 2 Diabetic peripheral neuropathy E11.42 Hiatal hernia with GERD without esophagitis K44.9; K21.9 Obstructive sleep apnea G47.33 BPH (benign prostatic hyperplasia) N40.0 Lower urinary tract symptom presence: unspecified whether lower urinary tract symptoms present COPD (chronic obstructive pulmonary disease) J44.9 COPD type: unspecified COPD Hypothyroidism E03.9 Hypothyroidism type: unspecified Anemia of renal disease N18.9; D63.1 DVT prophylaxis Z29.9
[2019-08-15] MEDS: ROSUVASTATIN CALCIUM 20 MG TAB PO SCH (20:37)
[2019-08-15] MEDS: GABAPENTIN 100 MG CAP PO SCH (20:38)
[2019-08-15] MEDS: AMLODIPINE BESYLATE 5 MG TAB PO SCH (20:38)
[2019-08-15] MEDS: INSULIN DETEMIR FLEXPEN/FLEX TOUCH 100 UNITS/ML 3ML SC SCH (20:38)
[2019-08-15] MEDS: TAMSULOSIN HCL 0.4 MG CAP PO SCH (20:39)
[2019-08-15] MEDS: CYANOCOBALAMIN 500 MCG TABLET (VITAMIN B-12) PO SCH (20:40)
--- NOTE | 2019-08-20 07:58 | Coding Query ---
CONGESTIVE HEART FAILURE To Promote full compliance with coding requirements relating to patient care, physician participation is requested in all cases of duplex trimmer uncertainty. Please assist us with the following questions. A diagnosis of Congestive Heart Failure is documented in the patient's medical record. To accurately code this diagnosis and to compare patient severity, we ask that you specify the type of heart failure by placing an X within the parenthesis (x). SYSTOLIC HEART FAILURE ( ) Acute ( ) Chronic ( ) Acute on Chronic ( ) Rheumatic ( ) Unknown DIASTOLIC HEART FAILURE ( ) Acute ( x) Chronic ( ) Acute on Chronic ( ) Rheumatic ( ) Unknown COMBINED SYSTOLIC AND DIASTOLIC HEART FAILURE ( ) Acute ( ) Chronic ( ) Acute on Chronic ( ) Rheumatic ( ) Unknown Thank you for your time, MIKAEL Santos, [facility]
--- NOTE | 2019-08-20 08:00 | Coding Query ---
ANEMIA To promote full compliance with coding requirements relating to patient care, physician participation is requested in all cases of product promoter retail pet uncertainty. Please assist us with the question(s) below: Coding Question(s): The record reflects the following clinical findings: If these findings are indicative of anemia, please specify the known or suspected type by placing an "X" within the parenthesis (x). More than one diagnosis may be selected, if applicable. If other, please document type. Examples are: (x ) Acute blood loss anemia ( ) Acute Postoperative blood loss anemia ( ) Acute postoperative anemia due to dilutional fluids ( x) Chronic blood loss anemia ( ) Anemia of chronic disease ( ) Aplastic anemia (x ) Anemia due to renal disease ( ) Anemia in neoplastic disease (x ) Iron deficient anemia ( ) Anemia, unspecified or other ( ) Other: (please specify) ( ) Unable to determine Thank you for your time, MIKAEL Santos, [facility]
== END 2019-08-15 21:26 | disposition home health service (06) | DRG 811 ==
LOC: ED 15:04 → 2N 17:25 → SUATTDRO 17:25 → 2N 18:13

== ENCOUNTER 2019-09-08 12:46 | Inpatient (IN) ==
--- NOTE | 2019-09-08 13:16 | Emergency Department Note ---
History of Present Illness General Chief complaint: Illness Time Seen by Provider: 09/08/19 12:58 Source: patient, family and EMS Mode of arrival: EMS Limitations: altered mental status History of Present Illness Provider complaint: "I need blood" Onset (ago): week(s) 1 Associated symptoms: + loss of appetite, + malaise, + shortness of breath and + weakness Treatments prior to arrival: none This is a 79-year-old male with a complicated past medical history including chronic kidney disease on dialysis. Patient states he is here because "I need blood". Patient has a difficult time providing any other details, however he does states he did not go to dialysis at all last week. Patient states that someone tested his blood yesterday and told him his blood counts were low. Patient states he has previously needed blood transfusion. Patient states his stools are frequently dark, and that he occasionally sees blood with a bowel movement. Patient states he has been on dialysis for 3 years. 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 Patient cannot provide any other details. Patient states he does still work part-time. Patient denies fevers or chills, chest pain or abdominal pain. Patient denies vomiting. Home Medications Home Medications Medication Instructions Recorded Confirmed Type tamsulosin 0.4 mg PO HS #90 cap 01/02/19 09/08/19 Rx docusate sodium 100 mg capsule 200 mg PO QAM #30 cap 01/19/19 09/08/19 Rx gabapentin 100 mg capsule 200 mg PO HS #60 cap 02/04/19 09/08/19 Rx levothyroxine 200 mcg PO QAM 02/15/19 09/08/19 History insulin detemir U-100 100 unit/mL 15 units SUBCUT HS ml 03/25/19 09/08/19 History subcutaneous solution rosuvastatin 20 mg PO QPM 04/07/19 09/08/19 History pantoprazole 40 mg PO BID 04/25/19 09/08/19 History Renal Caps 1 cap PO QDL 05/23/19 09/08/19 History calcium acetate(phosphat bind) 667 2,001 mg PO TIDM tab 06/02/19 09/08/19 History mg tablet insulin aspart U-100 [Novolog 0 sliding scale dose SUBCUT 06/06/19 09/08/19 History U-100 Insulin aspart] USEASDIRECTD labetalol 200 mg PO BID 06/06/19 09/08/19 History amlodipine 10 mg PO HS 06/13/19 09/08/19 History doxazosin [Cardura] 1 mg PO DAILY 06/23/19 09/08/19 History folic acid 1 mg tablet 1 mg PO DAILY 07/10/19 09/08/19 History bumetanide 1 mg tablet 2 mg PO BID #120 tab 07/16/19 09/08/19 Rx lisinopril 40 mg PO DAILY 07/23/19 09/08/19 History cyanocobalamin (vitamin B-12) 1,000 mcg PO HS 08/14/19 09/08/19 History [Vitamin B-12] ferrous sulfate 325 mg PO BID 08/14/19 09/08/19 History triamcinolone acetonide [Triderm] 1 applic TOPICAL BID 08/14/19 09/08/19 History levothyroxine 100 mcg PO QAM 08/26/19 09/08/19 History hydralazine 25 mg tablet 50 mg PO TIDM #90 tab 08/28/19 09/08/19 Rx Allergies Allergy/AdvReac Type Severity Reaction Status Date / Time sucralfate [From Carafate] Allergy Mild upset Verified 09/08/19 13:05 dialysis tramadol AdvReac Severe disorented Verified 09/08/19 13:05 ,falling down metformin AdvReac Intermediate CONFUSION Verified 09/08/19 13:05 Past Med/Surg History Medical History Acute on chronic blood loss anemia Anemia of renal disease Anxiety and depression Arthritis Asthma AVF (arteriovenous fistula) LEFT ARM BPH (benign prostatic hyperplasia) CAD (coronary artery disease) Chronic diastolic congestive heart failure Colon, diverticulosis COPD (chronic obstructive pulmonary disease) Diabetes mellitus, type 2 Diabetic peripheral neuropathy Dialysis patient [facility] SATURDAY, SATURDAY, SATURDAY 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) (Acute) GERD (gastroesophageal reflux disease) GI bleed (Inactive) Hearing difficulty Hyperlipidemia LDL goal <70 Hypertension (Acute) Hypnic jerks Hypothyroidism IgG monoclonal gammopathy Memory loss Mitral regurgitation Obstructive sleep apnea uses oxygen 2 l nc at hs Occlusion and stenosis of unspecified carotid artery On home oxygen therapy WEARS O2 AT 2L HS Osteoporosis Pulmonary hypertension Secondary hyperparathyroidism of renal origin Uncontrolled daytime somnolence sleeps thru day and cant sleep at night Vitamin D deficiency Surgical History H/O cardiac catheterization many years ago - over 10 years no stents follow with trung (NO STENTS) H/O hemorrhoidectomy History of colonoscopy History of esophagogastroduodenoscopy (EGD) MULTIPLE History of tooth extraction Hx of cholecystectomy Family History Unknown Myocardial infarction Mother Diabetes Breast cancer late 70s Hypertension Gallbladder disease Father Diabetes Hypertension Brother Diabetes Kidney disease Hypertension Denies family history of Ovarian cancer Prostate cancer Lung cancer Colorectal cancer Social History Preferred Language: Malian Communication Ability: Effective Visual Impairment: No Limitations Hearing Ability: Hard of Hearing Electronic 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 Required: No Beliefs That Will Affect Care: None marital status: Current Living Situation: Family current occupational status: disabled current occupation: works part-time at [employer] Feels Safe at Home: Yes Smoking Status: Former smoker Tobacco Type: cigarettes ; Number of Years Since Quit: 25 ; Second Hand Exposure: Yes ; Hx Alcohol Use: No Hx Substance Use: No Childhood Exposure to Second-Hand Smoke: No Diet Comment: regular caffeine: Yes during the past year weight has: remained stable Dental Care, Regularly: Yes Physical Activity Frequency: Does not Exercise Physical Activity Frequency Comment: limited due physical condition Seatbelt Use: sometimes Sunscreen Use: No Review of Systems Unobtainable due to cognitive status Physical Exam Vital Signs Vital Signs - 24 hr 09/08/19 12:52 09/08/19 12:56 09/08/19 13:00 Temperature Temperature Source Pulse Rate 72 71 70 Pulse Rate from SpO2 Sensor 72 70 69 Pulse Rhythm Pulse Strength Respiratory Rate 17 18 17 Respiratory Effort / Characteristics Respiratory Depth Blood Pressure 169/81 H 177/67 H Blood Pressure Mean 132 142 Blood Pressure Position Pulse Oximetry 95 96 94 Oxygen Delivery Method Sepsis Recent Fever Within 48 Hours Sepsis Action Taken by Nursing 09/08/19 13:01 09/08/19 13:04 09/08/19 13:30 Temperature 37.0 C Temperature Source Oral Pulse Rate 70 72 78 Pulse Rate from SpO2 Sensor 68 Pulse Rhythm Regular Pulse Strength Normal Respiratory Rate 18 22 20 Respiratory Effort / Characteristics Non-Labored Respiratory Depth Normal Blood Pressure 169/81 H 177/86 H Blood Pressure Mean 110 125 Blood Pressure Position Pulse Oximetry 94 92 Oxygen Delivery Method Room Air Sepsis Recent Fever Within 48 Hours No Sepsis Action Taken by Nursing No Action Required 09/08/19 13:31 09/08/19 14:00 09/08/19 14:01 Temperature Temperature Source Pulse Rate 120 H 69 70 Pulse Rate from SpO2 Sensor Pulse Rhythm Pulse Strength Respiratory Rate 20 15 14 Respiratory Effort / Characteristics Respiratory Depth Blood Pressure 178/61 H Blood Pressure Mean 117 Blood Pressure Position Pulse Oximetry Oxygen Delivery Method Sepsis Recent Fever Within 48 Hours Sepsis Action Taken by Nursing 09/08/19 14:09 09/08/19 15:05 09/08/19 15:14 Temperature 37.0 C Temperature Source Oral Pulse Rate 71 Pulse Rate from SpO2 Sensor Pulse Rhythm Regular Pulse Strength Normal Respiratory Rate 18 Respiratory Effort / Characteristics Respiratory Depth Blood Pressure 178/61 H 168/68 H Blood Pressure Mean 117 101 Blood Pressure Position Sitting Pulse Oximetry Oxygen Delivery Method Room Air Sepsis Recent Fever Within 48 Hours Sepsis Action Taken by Nursing GENERAL: alert, ill appearing, well nourished, no distress, non-toxic EYE EXAM: normal conjunctiva, PERRL and EOM's grossly intact OROPHARYNX: no exudate, no erythema, lips, buccal mucosa, and tongue normal and mucous membranes are moist NECK: supple, no nuchal rigidity, no adenopathy, non-tender LUNGS: Clear to auscultation. Normal chest wall mechanics, no w/r, bibasilar rales HEART: no murmurs, S1 normal and S2 normal ABDOMEN: abdomen soft, non-tender, normo-active bowel sounds, no masses, no rebound or guarding. BACK: Back is symmetrical on inspection and there is no deformity, no midline tenderness, no CVA tenderness. SKIN: no rashes and no bruising UPPER EXTREMITIES: upper extremities are grossly normal. FROM, nml pulses b/l. LOWER EXTREMITIES: 3+ pitting edema. FROM, nml pulses b/l. Several superficial abrasions in various stages of healing. NEURO EXAM: Normal sensorium, cranial nerves II-XII grossly intact, normal speech, no gross weakness of arms, no gross weakness of legs. Gross sensation intact. Course Course 1315: Discussed with . PCP Kathleen, Nephrology [facility]. Pt didn't go to HD at all last week. Went to HD yesterday and got 3/4 session but then asked to be taken off bc he didn't want to wear a mask. [facility] Pt was scheduled to have EGD tomorrow by Dr. White. He wears oxygen at night, prn during the day. Hx of black stools from iron pills and from blood in stools before. 1350: Discussed with Dr. Gracia, nephrology. He will call HD nurse to discuss adding pt onto schedule today. 1420: Discussed with [facility] service, patient can be listed for admission under Dr. Funes. Medical Decision Making Differential Diagnosis Differential Diagnosis includes but is not limited to dehydration, stroke, anemia, hypoglycemia, hyponatremia, hypernatremia, urinary tract infection, pneumonia, bronchitis, sepsis, gastroenteritis, additional abdominal pathology, metabolic abnormalities and infections. Medical Records Attestation: I reviewed the patient's medical records. Home Medications Current Medication List: was personally reviewed by me Laboratory Data Attestation: I reviewed the patient's lab results. Result diagrams: 09/08/19 12:40 09/08/19 12:40 Lab Results 09/08/19 09/08/19 09/08/19 Range/Units 12:40 12:40 13:59 WBC 3.61 L (4.8-10.8) K/uL RBC 2.40 L (4.7-6.1) M/uL Hgb 7.4 L (14.0-18.0) g/dL Hct 22.1 L (42-52) % MCV 92.1 (80-100) fL MCH 30.8 (25-34) pg MCHC 33.5 (32-36) g/dL RDW Std Deviation 54.2 H (36.4-46.3) fL RDW Coeff of Jose C 16.0 H (11.5-14.5) % Plt Count 106 L (130-400) K/uL MPV 12.0 H (7.4-10.4) fL Immature Gran % (Auto) 0.0 % Neut % (Auto) 63.4 % Lymph % (Auto) 11.9 % Converse % (Auto) 19.9 % Eos % (Auto) 4.2 % Baso % (Auto) 0.6 % Immature Gran # (Auto) 0.00 (0.00-0.02) K/uL Neut # (Auto) 2.29 (1.4-6.5) K/uL Lymph # (Auto) 0.43 L (1.2-3.4) K/uL Converse # (Auto) 0.72 H (0.11-0.59) K/uL Eos # (Auto) 0.15 (0-0.5) K/uL Baso # (Auto) 0.02 (0-0.2) K/uL Platelet Estimate Decreased L (Normal) RBC Morphology Unremarkable Sodium 142 (136-145) mmol/L Potassium 4.0 (3.5-5.1) mmol/L Chloride 104 (98-107) mmol/L Carbon Dioxide 26 (21-32) mmol/L Anion Gap 12.0 H (3-11) BUN 119 H (7-18) mg/dl Creatinine 10.40 H* (0.6-1.4) mg/dl Est Cr Clr Drug Dosing 7.4 ml/min Est GFR ( Amer) 4.9 Est GFR (Non-Af Amer) 4.3 BUN/Creatinine Ratio 11.5 (10-20) Glucose 118 H (70-99) mg/dl Calcium 8.5 (8.5-10.1) mg/dl Phosphorus 7.0 H (2.5-4.9) mg/dl Magnesium 2.2 (1.8-2.4) mg/dl Total Bilirubin 0.5 (0.2-1) mg/dl AST 19 (15-37) U/L ALT 28 (12-78) U/L Alkaline Phosphatase 110 (45-117) U/L Total Protein 6.4 (6.4-8.2) gm/dl Albumin 2.9 L (3.4-5.0) gm/dl Globulin 3.5 (2.5-4.0) gm/dl Albumin/Globulin Ratio 0.8 L (0.9-2) Lipase 375 (73-393) U/L Blood Type B Positive Antibody Screen NEGATIVE Crossmatch See Detail ECG Data Attestation: I personally reviewed and interpreted this ECG as follows: Indication: + weakness Rate (beats per minute): 70 Rhythm: + normal sinus ECG Intervals/blocks: + First degree AV block, + Right Bundle branch block and + Prolonged QT ECG Kopperl: + Normal Comparison ECG Date: from (08/14/2019) Change: no significant change Blood Pressure Blood Pressure Findings: Elevated blood pressure Blood Pressure Disposition: further management by hospitalist BJ Narrative Patient presenting here mildly confused with a history of noncompliance and recent noncompliance with his hemodialysis treatments. Patient most concerned about need for recurrent blood transfusions which she is needed before. Patient with intermittent GI bleeding which is suspected to be contributing to his need for recurrent transfusions in addition to his chronic anemia from his chronic kidney disease. No evidence of acute infectious etiology. No focal or lateralizing findings to suggest acute CVA. Labs drawn and sent, I did call and discuss with the patient's help provide additional information and recent history as well as spent time reviewing the patient's prior admission records due to his complicated past medical history. Then discussed case with Dr. Gracia, nephrology, due to concern for need for more urgent dialysis. Patient's labs here are otherwise reassuring and no significant hyperkalemia despite missing dialysis. Patient afebrile and otherwise hemodynamically stable, hypertensive throughout. Case discussed with admitting team for urgent orders in order to send the patient upstairs to dialysis prior to the dialysis nurse leaving. I do not suspect sepsis. I do not suspect occult trauma. Will check patient's stools here to monitor for ongoing GI loss. Patient was scheduled to see Dr. White tomorrow according to his for possible repeat EGD. Patient is not anticoagulated. Impression & Plan Altered mental status, CKD (chronic kidney disease) requiring chronic dialysis, Pancytopenia, Hypertension, Noncompliance Discharge Plan Visit Data Chief Complaint: Illness ED Provider: Bernie Vega Discharge Problem: Altered mental status, CKD (chronic kidney disease) requiring chronic dialysis, Pancytopenia, Hypertension, Noncompliance Discharge Instructions Interventions: ED Discharge Assessment Last Done: 09/08/19 15:14 Forms Stand Alone Forms: My [facility] Me Prescriptions Prescriptions: No Action gabapentin 100 mg capsule 200 mg PO HS Qty: 60 RF: 5 calcium acetate(phosphat bind) 667 mg tablet 2,001 mg PO TIDM RF: 0 bumetanide 1 mg tablet 2 mg PO BID Qty: 120 RF: 2 hydralazine 25 mg tablet 50 mg PO TIDM Qty: 90 RF: 5 folic acid 1 mg tablet 1 mg PO DAILY RF: 0 docusate sodium 100 mg capsule 200 mg PO QAM Qty: 30 RF: 0 Levemir U-100 Insulin 100 unit/mL solution 15 units subcut HS RF: 0 Renal Caps 1 mg Capsule 1 cap PO QDL RF: 0 amlodipine 10 mg tablet 10 mg PO HS RF: 0 doxazosin [Cardura] 1 mg tablet 1 mg PO DAILY RF: 0 levothyroxine 100 mcg Tablet 100 mcg PO QAM RF: 0 tamsulosin 0.4 mg capsule 0.4 mg PO HS Qty: 90 RF: 1 levothyroxine 200 mcg tablet 200 mcg PO QAM RF: 0 rosuvastatin 20 mg tablet 20 mg PO QPM RF: 0 pantoprazole 40 mg tablet,delayed release (DR/EC) 40 mg PO BID RF: 0 labetalol 200 mg Tablet 200 mg PO BID RF: 0 insulin aspart U-100 [Novolog U-100 Insulin aspart] 100 unit/mL solution 0 sliding scale dose subcut USEASDIRECTD RF: 0 lisinopril 40 mg tablet 40 mg PO DAILY RF: 0 cyanocobalamin (vitamin B-12) [Vitamin B-12] 1,000 mcg Tablet 1,000 mcg PO HS RF: 0 ferrous sulfate 325 mg (65 mg iron) tablet,delayed release (DR/EC) 325 mg PO BID RF: 0 triamcinolone acetonide [Triderm] 0.1 % cream 1 applic TOPICAL BID RF: 0 Referrals Referrals: Mahsa Wang DO [Primary Care Provider] - Discharge Problem: Altered mental status Qualifiers: Altered mental status type: unspecified Qualified Code(s): R41.82 - Altered mental status, unspecified Hypertension Qualifiers: Hypertension type: unspecified Qualified Code(s): I10 - Essential (primary) h ypertension
[2019-09-08 14:04] LABS: Hematocrit (blood only) 22.1 % (42-52); Hemoglobin 7.4 g/dL (14.0-18.0); Mean Corpuscular Hemoglobin 30.8 pg (25-34); Mean Corpuscular Hgb Conc 33.5 g/dL (32-36); Mean Corpuscular Volume 92.1 fL (80-100); RDW Standard Deviation 54.2 fL (36.4-46.3); White Blood Count 3.61 K/uL (4.8-10.8)
[2019-09-08 14:06] LABS: Albumin Globulin Ratio 0.8 (0.9-2); Albumin Level 2.9 gm/dl (3.4-5.0); BUN Creatinine Ratio 11.5 (10-20); Bilirubin,Total 0.5 mg/dl (0.2-1); Calcium 8.5 mg/dl (8.5-10.1); Creatinine Clr Calc Pharmacy 7.4 ml/min; Est GFR (African American) 4.9; Est GFR (Non-African American) 4.3; Globulin 3.5 gm/dl (2.5-4.0); Magnesium 2.2 mg/dl (1.8-2.4); Total Protein 6.4 gm/dl (6.4-8.2)
[2019-09-08 14:13] LABS: Platelet Count 106 K/uL (130-400)
[2019-09-08 14:14] LABS: Basophils # (auto) 0.02 K/uL (0-0.2); Basophils % (auto) 0.6 %; Eosinophils # (auto) 0.15 K/uL (0-0.5); Eosinophils % (auto) 4.2 %; Lymphocytes # (auto) 0.43 K/uL (1.2-3.4); Lymphocytes % (auto) 11.9 %; Monocytes # (auto) 0.72 K/uL (0.11-0.59); Monocytes % (auto) 19.9 %; Neutrophils # (auto) 2.29 K/uL (1.4-6.5); Neutrophils % (auto) 63.4 %; Platelet Estimate Decreased (Normal); RBC Morphology Unremarkable
[2019-09-08] MEDS ORDERED: SODIUM CHLORIDE 0.9% 1000ML 1,000 ML IV PRN (14:21)
[2019-09-08] MEDS ORDERED: SODIUM CHLORIDE 0.9% 250 ML IV PRN (14:25)
[2019-09-08] MEDS ORDERED: EPOETIN ALFA 10,000 UNITS/ML VIAL IV ONE (15:54)
--- NOTE | 2019-09-08 15:56 | Nephrology Consultation ---
Date of Consultation September 08, 2019 Assessment & Plan (1) ESRD (end stage renal disease) on dialysis: IHD TTS at [facility] (4hr 2K 2.5Ca F-200NR EDW 97.5 kg - primary Ground Equipment Mechanic Dr. Briceno). Unfortunately, significant non-compliance with treatment remains a major problem and the primary reason for hospital admissions. Augie denies any desire to stop hemodialysis. He denies any major contributing barriers. Emergency HD provided today. NEt UF goal 3 L. Additional UF will be require. PRBC 1 units and EPO 33053 units provided with dialysis. Repeat labs and I will re-evaluate tomorrow AM for additional HD as needed. (2) Acute on chronic blood loss anemia: (3) GAVE (gastric antral vascular ectasia): (4) Hypertension: (5) Cirrhosis: (6) Anemia of renal disease: History of Present Illness Reason for Consultation: ESRD on HD Requesting Physician: Dr. Bernie Vega Attending Physician: Dr. Bernie Vega History of Present Illness Mr. Mcintyre is a 79 year old white male with ESRD. Nephrology consultation was requested through the ER. I discussed the patient's case with the ER attending physician. I reviewed the patient's condition and recent history with nurses from the [facility] dialysis unit in [place]. I coordinated emergent hemodialysis with the dialysis nurse software test automation engineer and evaluated during the dialysis treatment. PRBC transfusing during my assessment. Qb adequate. The patient admitted that he has made many mistakes in caring for himself and looking after his needs. He had no other complaints or concerns. Mr. Mcintyre has ESRD due to diabetic nephropathy. He has been on IHD since 12/16 ([facility] TTS 4hr 2K 2.5Ca F-200NR EDW 97.5 kg - primary Ground Equipment Mechanic Dr. Briceno). Augie did not attend any of his outpatient dialysis treatments last week. He did receive 4 units of PRBC transfusion support for anemia. He missed 2/3 of his dialysis treatments the week before. He has not been present to receive NEMESIO therapy in the outpatient setting in over 1 month. When he presented for HD yesterday, he was 8 kg above his EDW. He signed-off treatment early after only 2 liters were removed. Augie states that he felt reasonably well and did not feel he needed to complete the treatment but that he planned to return to the dialysis unit for an additional treatment today. His medical history is significant for HTN, AODM, vascular dementia, IgG monoclonal gammopathy, EFREN, BPH, hypothyroidism, NEWHALEN and CHF w/ diastolic dysfunction. Mr. Mcintyre has required several recent hospitalizations due to anemia and weakness. EGD revealed vascular ectasis of the gastric antrum. Cauterization was provided but melena recurred. Mr. Mcintyre was hospitalized 05/21 due to GI bleeding. He was transferred to [facility] 05/23 - 05/31. He required EGD x2 for cauterization of gastric AVM's and transfusion w/ 8 units PRBC. Mr. Mcintyre has since had several [facility] hospitalizations for blood transfusion. Most recently, he was admitted last month. He is scheduled for GI follow up tomorrow. Augie presented to the ER today with fatigue and mental status changes. Allergies Allergy/AdvReac Type Severity Reaction Status Date / Time sucralfate [From Carafate] Allergy Mild upset Verified 09/08/19 13:05 dialysis tramadol AdvReac Severe disorented Verified 09/08/19 13:05 ,falling down metformin AdvReac Intermediate CONFUSION Verified 09/08/19 13:05 Home Medications Home Medications Medication Instructions Recorded Confirmed Type tamsulosin 0.4 mg PO HS #90 cap 01/02/19 09/08/19 Rx docusate sodium 100 mg capsule 200 mg PO QAM #30 cap 01/19/19 09/08/19 Rx gabapentin 100 mg capsule 200 mg PO HS #60 cap 02/04/19 09/08/19 Rx levothyroxine 200 mcg PO QAM 02/15/19 09/08/19 History insulin detemir U-100 100 unit/mL 15 units SUBCUT HS ml 03/25/19 09/08/19 History subcutaneous solution rosuvastatin 20 mg PO QPM 04/07/19 09/08/19 History pantoprazole 40 mg PO BID 04/25/19 09/08/19 History Renal Caps 1 cap PO QDL 05/23/19 09/08/19 History calcium acetate(phosphat bind) 667 2,001 mg PO TIDM tab 06/02/19 09/08/19 History mg tablet insulin aspart U-100 [Novolog 0 sliding scale dose SUBCUT 06/06/19 09/08/19 History U-100 Insulin aspart] USEASDIRECTD labetalol 200 mg PO BID 06/06/19 09/08/19 History amlodipine 10 mg PO HS 06/13/19 09/08/19 History doxazosin [Cardura] 1 mg PO DAILY 06/23/19 09/08/19 History folic acid 1 mg tablet 1 mg PO DAILY 07/10/19 09/08/19 History bumetanide 1 mg tablet 2 mg PO BID #120 tab 07/16/19 09/08/19 Rx lisinopril 40 mg PO DAILY 07/23/19 09/08/19 History cyanocobalamin (vitamin B-12) 1,000 mcg PO HS 08/14/19 09/08/19 History [Vitamin B-12] ferrous sulfate 325 mg PO BID 08/14/19 09/08/19 History triamcinolone acetonide [Triderm] 1 applic TOPICAL BID 08/14/19 09/08/19 History levothyroxine 100 mcg PO QAM 08/26/19 09/08/19 History hydralazine 25 mg tablet 50 mg PO TIDM #90 tab 08/28/19 09/08/19 Rx Patient History Medical History Acute on chronic blood loss anemia Anemia of renal disease Anxiety and depression Arthritis Asthma AVF (arteriovenous fistula) LEFT ARM BPH (benign prostatic hyperplasia) CAD (coronary artery disease) Chronic diastolic congestive heart failure Colon, diverticulosis COPD (chronic obstructive pulmonary disease) Diabetes mellitus, type 2 Diabetic peripheral neuropathy Dialysis patient [facility] SATURDAY, SATURDAY, SATURDAY 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) (Acute) GERD (gastroesophageal reflux disease) GI bleed (Inactive) Hearing difficulty Hyperlipidemia LDL goal <70 Hypertension (Acute) Hypnic jerks Hypothyroidism IgG monoclonal gammopathy Memory loss Mitral regurgitation Obstructive sleep apnea uses oxygen 2 l nc at hs Occlusion and stenosis of unspecified carotid artery On home oxygen therapy WEARS O2 AT 2L HS Osteoporosis Pulmonary hypertension Secondary hyperparathyroidism of renal origin Uncontrolled daytime somnolence sleeps thru day and cant sleep at night Vitamin D deficiency Surgical History H/O cardiac catheterization many years ago - over 10 years no stents follow with trung (NO STENTS) H/O hemorrhoidectomy History of colonoscopy History of esophagogastroduodenoscopy (EGD) MULTIPLE History of tooth extraction Hx of cholecystectomy Family History Unknown Myocardial infarction Mother Diabetes Breast cancer late 70s Hypertension Gallbladder disease Father Diabetes Hypertension Brother Diabetes Kidney disease Hypertension Denies family history of Ovarian cancer Prostate cancer Lung cancer Colorectal cancer Social History Preferred Language: Icelandic Communication Ability: Effective Visual Impairment: No Limitations Hearing Ability: Hard of Hearing Security Officers And 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 Required: No Beliefs That Will Affect Care: None marital status: Current Living Situation: Family current occupational status: disabled current occupation: works part-time at [employer] Feels Safe at Home: Yes Smoking Status: Former smoker Tobacco Type: cigarettes ; Number of Years Since Quit: 25 ; Second Hand Exposure: Yes ; Hx Alcohol Use: No Hx Substance Use: No Childhood Exposure to Second-Hand Smoke: No Diet Comment: regular caffeine: Yes during the past year weight has: remained stable Dental Care, Regularly: Yes Physical Activity Frequency: Does not Exercise Physical Activity Frequency Comment: limited due physical condition Seatbelt Use: sometimes Sunscreen Use: No Review of Systems Review of Systems: All systems reviewed & are unremarkable except as noted in HPI & below Constitutional: + weakness Respiratory: no dyspnea Cardiovascular: no chest pain, no palpitations and no syncope (one recent episode of presyncope) Gastrointestinal: + melena; no abdominal pain, no nausea and no diarrhea/loose stools Physical Exam Constitutional: + thin and + frail appearing; no acute distress Eyes: + conjunctival abnormality (pallor) and + anicteric sclerae ENMT: Mouth: no oral mucosal abnormality and oral mucous membranes not dry Neck: normal visual inspection and trachea midline Respiratory: no respiratory distress Auscultation: + rales Cardiovascular: Heart Sounds: normal S1, normal S2 and + murmur Vessels: + JVD Extremities: + AV fistula Skin: + turgor decreased and + ecchymosis Neurologic: Motor/Sensory: no tremor and no asterixis Psychiatric: Orientation: alert and oriented x 3 Results & Data Vital Signs (Past 12 Hours) Vital Signs Temp Pulse Resp BP Pulse Ox 09/08/19 15:05 37.0 C 71 18 168/68 H 09/08/19 14:09 178/61 H 09/08/19 14:01 70 14 09/08/19 14:00 69 15 178/61 H 09/08/19 13:31 120 H 20 09/08/19 13:30 78 20 177/86 H 09/08/19 13:04 37.0 C 72 22 169/81 H 92 09/08/19 13:01 70 18 94 09/08/19 13:00 70 17 177/67 H 94 09/08/19 12:56 71 18 96 09/08/19 12:52 72 17 169/81 H 95 Laboratory Results Laboratory Results - last 24 hr 09/08/19 09/08/19 09/08/19 12:40 12:40 13:59 WBC 3.61 L RBC 2.40 L Hgb 7.4 L Hct 22.1 L MCV 92.1 MCH 30.8 MCHC 33.5 RDW Std Deviation 54.2 H RDW Coeff of Jose C 16.0 H Plt Count 106 L MPV 12.0 H Immature Gran % (Auto) 0.0 Neut % (Auto) 63.4 Lymph % (Auto) 11.9 Carson % (Auto) 19.9 Eos % (Auto) 4.2 Baso % (Auto) 0.6 Immature Gran # (Auto) 0.00 Neut # (Auto) 2.29 Lymph # (Auto) 0.43 L Carson # (Auto) 0.72 H Eos # (Auto) 0.15 Baso # (Auto) 0.02 Platelet Estimate Decreased L RBC Morphology Unremarkable Sodium 142 Potassium 4.0 Chloride 104 Carbon Dioxide 26 Anion Gap 12.0 H BUN 119 H Creatinine 10.40 H* Est Cr Clr Drug Dosing 7.4 Est GFR ( Amer) 4.9 Est GFR (Non-Af Amer) 4.3 BUN/Creatinine Ratio 11.5 Glucose 118 H Calcium 8.5 Phosphorus 7.0 H Magnesium 2.2 Total Bilirubin 0.5 AST 19 ALT 28 Alkaline Phosphatase 110 Total Protein 6.4 Albumin 2.9 L Globulin 3.5 Albumin/Globulin Ratio 0.8 L Lipase 375 Blood Type B Positive Antibody Screen NEGATIVE Crossmatch See Detail PG Care Time/CCT Total # of Minutes Spent Total Time Spent with Patient: Total time spent is greater than 50% in coordination of care (as documented) at patient's floor/unit and/or counseling patient: Coding Level of Care Code 56948 Inpt Consult Level 5 Diagnoses ESRD (end stage renal disease) on dialysis N18.6; Z99.2 Acute on chronic blood loss anemia D62 GAVE (gastric antral vascular ectasia) K31.819 Hypertension I10 Hypertension type: unspecified Cirrhosis K74.60 Ascites presence: unspecified Hepatic cirrhosis type: unspecified hepatic cirrhosis Anemia of renal disease N18.9; D63.1 (1) Hypertension Hypertension type: unspecified Qualified Code(s): I10 - Essential (primary) hypertension (2) Cirrhosis Ascites presence: unspecified Hepatic cirrhosis type: unspecified hepatic cirrhosis Qualified Code(s): K74.60 - Unspecified cirrhosis of liver
--- NOTE | 2019-09-08 16:22 | History & Physical Report ---
Date of Service September 08, 2019 Assessment & Plan (1) Acute on chronic blood loss anemia: -ad[facility] -Hemoglobin found to be 7.4 on outpatient CBC, trending weekly with history of chronic blood loss anemia requiring multiple transfusions in the past -Transfusing 1 unit with dialysis today -Trend CBC with a.m. labs -Nephrology consulted, discussed with Dr. Gracia-going to order EPO for pt, following as needed patient (2) ESRD (end stage renal disease) on dialysis: -Currently getting HD after missing 3 sessions, creatinine elevated at 10, BUN = 119 at time of admission. -Follow with a.m. PRP -Regularly scheduled Saturday -Nephrology consulted (3) Hiatal hernia with GERD without esophagitis: -Continue PPI bid (4) GAVE (gastric antral vascular ectasia): - was scheduled to have outpatient follow-up with Dr. White tomorrow, will consult GI for now, possible needs for cauterization and repeat EGD with continuing blood loss and anemia despite transfusions (5) Hypertension: -Continue amlodipine 10 mg at bedtime, Bumex 2 mg BID, doxazosin 1 mg daily, hydralazine 50 mg TID, labetalol 200 mcg daily, lisinopril 40 mg daily -BP slightly elevated upon arrival, likely secondary to volume overload in the setting of no dialysis for 1 week (6) Peripheral vascular disease: -History of such (7) Pulmonary hypertension: -Noted (8) Hyperlipidemia LDL goal <70: -Continue rosuvastatin 20 mg every afternoon (9) Diabetes mellitus, type 2: -Can continue Levemir 15 units at bedtime, with ISS with Accu-Cheks ACHS (10) Diabetic peripheral neuropathy: -History of such, patient reports no worsening numbness or tingling currently. (11) COPD (chronic obstructive pulmonary disease): -Stable, no signs of acute exacerbation, history of pneumonia noted on CXR however patient afebrile without elevated white count, -If worsening shortness of breath consider checking CXR with volume overload from missing dialysis recently (12) Obstructive sleep apnea: -Continue with 2 L O2 via NC at bedtime (13) Hypothyroidism: -Continue levothyroxine 300 mcg daily (14) Vitamin D deficiency: -Continue calcium supplementation, renal caps (15) Arthritis: -Chronic, stable DVT ppx: - teds, scd CODE: Full code Dispo: From home, likely to remain in the hospital x 1-2 days History of Present Illness Primary Care Provider: Mahsa Wang DO This is a 79-year-old male with past medical history of chronic anemia requiring multiple blood transfusions in the past, history of GI bleed, secondary to gave, end-stage renal disease on dialysis //Sat, HTN, elevated troponin, DM type II, peripheral neuropathy, hiatal hernia with GERD, EFREN on at bedtime O2, BPH, COPD, hypothyroidism who presents to the hospital due to low hemoglobin = 7.4 on serial CBC which he is having trended weekly for chronic anemia. He was called and sent to the ER due to low counts and told he needed transfusion. It was also noted that the patient has missed 3 dialysis sessions in a row. When asked why this was the patient responded with "dumb brain" multiple times. He denies specific complaints but states he has not quite felt himself in the last few days. He has been eating and drinking without any difficulty. Patient reports his weight remains around 220 pounds all the time, denies any recent weight gain, denies swelling in the lower extremities is worse compared to normal. He states he ambulates at home with a walker, and lives with his and 2 sons. No recent falls. Allergies Allergy/AdvReac Type Severity Reaction Status Date / Time sucralfate [From Carafate] Allergy Mild upset Verified 09/08/19 13:05 dialysis tramadol AdvReac Severe disorented Verified 09/08/19 13:05 ,falling down metformin AdvReac Intermediate CONFUSION Verified 09/08/19 13:05 Home Medications Home Medications Medication Instructions Recorded Confirmed Type tamsulosin 0.4 mg PO HS #90 cap 01/02/19 09/08/19 Rx docusate sodium 100 mg capsule 200 mg PO QAM #30 cap 01/19/19 09/08/19 Rx gabapentin 100 mg capsule 200 mg PO HS #60 cap 02/04/19 09/08/19 Rx levothyroxine 200 mcg PO QAM 02/15/19 09/08/19 History insulin detemir U-100 100 unit/mL 15 units SUBCUT HS ml 03/25/19 09/08/19 History subcutaneous solution rosuvastatin 20 mg PO QPM 04/07/19 09/08/19 History pantoprazole 40 mg PO BID 04/25/19 09/08/19 History Renal Caps 1 cap PO QDL 05/23/19 09/08/19 History calcium acetate(phosphat bind) 667 2,001 mg PO TIDM tab 06/02/19 09/08/19 History mg tablet insulin aspart U-100 [Novolog 0 sliding scale dose SUBCUT 06/06/19 09/08/19 History U-100 Insulin aspart] USEASDIRECTD labetalol 200 mg PO BID 06/06/19 09/08/19 History amlodipine 10 mg PO HS 06/13/19 09/08/19 History doxazosin [Cardura] 1 mg PO DAILY 06/23/19 09/08/19 History folic acid 1 mg tablet 1 mg PO DAILY 07/10/19 09/08/19 History bumetanide 1 mg tablet 2 mg PO BID #120 tab 07/16/19 09/08/19 Rx lisinopril 40 mg PO DAILY 07/23/19 09/08/19 History cyanocobalamin (vitamin B-12) 1,000 mcg PO HS 08/14/19 09/08/19 History [Vitamin B-12] ferrous sulfate 325 mg PO BID 08/14/19 09/08/19 History triamcinolone acetonide [Triderm] 1 applic TOPICAL BID 08/14/19 09/08/19 History levothyroxine 100 mcg PO QAM 08/26/19 09/08/19 History hydralazine 25 mg tablet 50 mg PO TIDM #90 tab 08/28/19 09/08/19 Rx Past Med/Surg History Medical History Acute on chronic blood loss anemia Anemia of renal disease Anxiety and depression Arthritis Asthma AVF (arteriovenous fistula) LEFT ARM BPH (benign prostatic hyperplasia) CAD (coronary artery disease) Chronic diastolic congestive heart failure Colon, diverticulosis COPD (chronic obstructive pulmonary disease) Diabetes mellitus, type 2 Diabetic peripheral neuropathy [facility] patient [facility] SATURDAY, SATURDAY, SATURDAY 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) (Acute) GERD (gastroesophageal reflux disease) GI bleed (Inactive) Hearing difficulty Hyperlipidemia LDL goal <70 Hypertension (Acute) Hypnic jerks Hypothyroidism IgG monoclonal gammopathy Memory loss Mitral regurgitation Obstructive sleep apnea uses oxygen 2 l nc at hs Occlusion and stenosis of unspecified carotid artery On home oxygen therapy WEARS O2 AT 2L HS Osteoporosis Pulmonary hypertension Secondary hyperparathyroidism of renal origin Uncontrolled daytime somnolence sleeps thru day and cant sleep at night Vitamin D deficiency Surgical History H/O cardiac catheterization many years ago - over 10 years no stents follow with trung (NO STENTS) H/O hemorrhoidectomy History of colonoscopy History of esophagogastroduodenoscopy (EGD) MULTIPLE History of tooth extraction Hx of cholecystectomy Family History Unknown Myocardial infarction Mother Diabetes Breast cancer late 70s Hypertension Gallbladder disease Father Diabetes Hypertension Brother Diabetes Kidney disease Hypertension Denies family history of Ovarian cancer Prostate cancer Lung cancer Colorectal cancer Social History Preferred Language: Icelandic Communication Ability: Effective Visual Impairment: No Limitations Hearing Ability: Hard of Hearing 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: No Beliefs That Will Affect Care: None marital status: Current Living Situation: Family current occupational status: disabled current occupation: works part-time at [employer] Feels Safe at Home: Yes Smoking Status: Former smoker Tobacco Type: cigarettes ; Number of Years Since Quit: 25 ; Second Hand Exposure: Yes ; Hx Alcohol Use: No Hx Substance Use: No Childhood Exposure to Second-Hand Smoke: No Diet Comment: regular caffeine: Yes during the past year weight has: remained stable Dental Care, Regularly: Yes Physical Activity Frequency: Does not Exercise Physical Activity Frequency Comment: limited due physical condition Seatbelt Use: sometimes Sunscreen Use: No Review of Systems Review of Systems: Constitutional: No fever, chills, sweats, + generalized fatigue and weakness Eyes: No diplopia, no changes in vision ENT: No sore throat, tinnitus, or trouble swallowing Respiratory: No shortness of breath, No dyspnea at rest or on exertion, no cough or sputum Cardiovascular: No chest pain, palpitations, or flutter Abdomen: No pain, No constipation, No diarrhea, No nausea, No vomiting Musculoskeletal: No calf pain, No joint pain, + chronic lower extremity swelling Genitourinary : No dysuria or urinary frequency, + makes urine, urinates 3-4 times daily, no hematuria Neurologic: + Chronic numbness/tingling in lower extremities, no difficulty with ambulation + uses walker, no sensory or motor deficits Psychiatric: No depression or anxiety symptoms Endocrine: No fatigue, No weight changes Integumentary: No itch, No rash Physical Exam Physical Exam: General: awake, alert, no apparent distress, + overweight + appears fatigued + hard of hearing Head: Normocephalic, atraumatic ENT: PERRL, EOMI, no pharyngeal exudate, mucous membranes moist Chest: Clear to auscultation, + fine crackles at bases bilaterally, on room air, no adventitious breath sounds Cardiac: Regular rate and rhythm, + TIMO grade 3/6, no JVD, normal peripheral pulses, good capillary refill Abdominal: NABS x 4 quadrants, soft, nondistended, nontender to palpation, no rebound, guarding or tenderness Extremities: Normal inspection, 2+ pitting peripheral edema, multiple small abrasions over allen bilateral, no erythema, calfs nontender to palpation Psych: Normal mood and affect Neuro: AAO x 3, no gross motor deficits, speech is clear, no peripheral sensory deficits Skin: no rash or erythema Constitutional: WD/WN, vitals as above Eyes: normal visual arreaga by confrontation and + anicteric sclerae Neck: normal visual inspection and trachea midline Respiratory: normal respiratory effort; no respiratory distress Auscultation: + crackles (scant); no wheezes Cardiovascular: Rate/Rhythm: regular rate and regular rhythm Gastrointestinal (Abdomen): Inspection/Auscultation: abdomen not distended Percussion/Palpation: abdomen soft; abdomen nontender Musculoskeletal: Head/Neck/Chest: normocephalic and head atraumatic 1+ pitting b/l LE edema, + pedal pulses Skin: no rashes, warm and dry Neurologic: awake; not confused Speech / Cognition: normal speech Psychiatric: A+Ox3, euthymic affect Lymphatic: Exam as done by Raina Funes DO Results & Data Results & Data ([facility]) Vital Signs (Past 12 Hours) Vital Signs Temp Pulse Resp BP Pulse Ox 09/08/19 15:05 37.0 C 71 18 168/68 H 09/08/19 14:09 178/61 H 09/08/19 14:01 70 14 09/08/19 14:00 69 15 178/61 H 09/08/19 13:31 120 H 20 09/08/19 13:30 78 20 177/86 H 09/08/19 13:04 37.0 C 72 22 169/81 H 92 09/08/19 13:01 70 18 94 09/08/19 13:00 70 17 177/67 H 94 09/08/19 12:56 71 18 96 09/08/19 12:52 72 17 169/81 H 95 Code Status & VTE Plan Code Status Full code-discussed with the patient at bedside Supervising Physician Co-Signing Physician Notes Pt seen and examined by me. Denies chest pain or SOB. Tolerating PO without issue at home, but has not eaten today. States he took his AM meds. Missed HD last week. Pt was supposed to have an EGD tomorrow with Dr. White to possibly cauterize lesions. Agree with HPI/ROS as noted by PA See above for my exam in PE section Agree with plan as outlined above Emergent HD Transfused 1 unit with HD Repeat labs in AM GI c/s pending PG Care Time/CCT Total # of Minutes Spent Total Time Spent with Patient: Total time spent is greater than 50% in coordination of care (as documented) at patient's floor/unit and/or counseling patient: Coding Level of Care Code 98571 Initial Inpt Care Lvl 3 Diagnoses Acute on chronic blood loss anemia D62 ESRD (end stage renal disease) on dialysis N18.6; Z99.2 Hiatal hernia with GERD without esophagitis K44.9; K21.9 GAVE (gastric antral vascular ectasia) K31.819 Hypertension I10 Hypertension type: unspecified Peripheral vascular disease I73.9 Pulmonary hypertension I27.20 Hyperlipidemia LDL goal <70 E78.5 Diabetes mellitus, type 2 E11.9 Diabetic peripheral neuropathy E11.42 COPD (chronic obstructive pulmonary disease) J44.9 COPD type: unspecified COPD Obstructive sleep apnea G47.33 Hypothyroidism E03.9 Hypothyroidism type: unspecified Vitamin D deficiency E55.9 Arthritis M19.90 (1) Hypothyroidism Hypothyroidism type: unspecified Qualified Code(s): E03.9 - Hypothyroidism, unspecified (2) COPD (chronic obstructive pulmonary disease) COPD type: unspecified COPD Qualified Code(s): J44.9 - Chronic obstructive pulmonary disease, unspecified (3) Hypertension Hypertension type: unspecified Qualified Code(s): I10 - Essential (primary) hypertension
[2019-09-08] MEDS ORDERED: ONDANSETRON INJ 2 MG/ML 2 ML VIAL IV PRN (17:54)
[2019-09-08] MEDS ORDERED: DEXTROSE 50% 50 ML SYRINGE IV PRN (17:54)
[2019-09-08] MEDS ORDERED: GLUCOSE 10 TABS/TUBE PO PRN (17:54)
[2019-09-08] MEDS ORDERED: GLUCOSE 40% GEL 15 GM TUBE PO PRN (17:54)
[2019-09-08] MEDS ORDERED: CARBOHYDRATES FOR HYPOGLYCEMIA PO PRN (17:54)
[2019-09-08] MEDS ORDERED: GLUCAGON FOR INJ 1 MG VIAL SQ PRN (17:54)
--- NOTE | 2019-09-08 18:46 | XRay Report ---
XR chest 1V portable CLINICAL HISTORY: Shortness of breath. COMPARISON STUDY: Chest radiograph August 14, 2019. FINDINGS: Moderate cardiomegaly is noted. There is a possible small left pleural effusion. Pulmonary vascular congestion is noted. There are bibasilar opacities. No pneumothorax is present. IMPRESSION: 1. Bibasilar opacities which may reflect an infectious process such as pneumonia or atelectasis. 2. Cardiomegaly with pulmonary vascular congestion. ACT 112: Negative or not required by law. Electronically signed by: Marcus Salazar M.D. 09/08/2019 6:45 PM
[2019-09-08] MEDS: CALCIUM ACETATE 667 MG CAP/TAB PO SCH (19:17)
[2019-09-08] MEDS: BUMETANIDE 1 MG TAB PO SCH (19:17)
[2019-09-08] MEDS: HydrALAZINE TAB 50 MG TAB PO SCH (19:17)
[2019-09-08] MEDS: INSULIN ASPART 100 UNITS/ML 3 ML PEN SC SCH ×2 (20:13→20:54)
[2019-09-08] MEDS: TRIAMCINOLONE ACET 0.1% CR 15 GM TUBE TOP SCH (20:51)
[2019-09-08] MEDS: INSULIN DETEMIR FLEXPEN/FLEX TOUCH 100 UNITS/ML 3ML SC SCH (20:51)
[2019-09-08] MEDS: FERROUS SULFATE 325 MG TAB PO SCH (20:51)
[2019-09-08] MEDS: TAMSULOSIN HCL 0.4 MG CAP PO SCH (20:52)
[2019-09-08] MEDS: GABAPENTIN 100 MG CAP PO SCH (20:52)
[2019-09-08] MEDS: AMLODIPINE BESYLATE 5 MG TAB PO SCH (20:52)
[2019-09-08] MEDS: LABETALOL HCL 200 MG TAB PO SCH (20:52)
[2019-09-08] MEDS: PANTOprazole 40 MG TAB PO SCH (20:53)
[2019-09-08] MEDS: ROSUVASTATIN CALCIUM 20 MG TAB PO SCH (20:53)
[2019-09-08] MEDS: CYANOCOBALAMIN 500 MCG TABLET (VITAMIN B-12) PO SCH (20:54)
[2019-09-09] MEDS: ACETAMINOPHEN 325 MG TAB PO PRN (01:24)
[2019-09-09] MEDS ORDERED: MoRPHine SULFATE 2 MG/ML CARP IV STA (03:00)
--- NOTE | 2019-09-09 03:17 | Communication Note ---
Date of Service: September 09, 2019 Nursing contacted me stating that pt was complaining of back pain, nonresponsive to ordered tyelenol. Pain was causing agitation where he was refusing to stay in bed, stating he needed to get up to fix his back pain. A one time dose of morphine 2mg was ordered.
[2019-09-09] MEDS: LEVOTHYROXINE SODIUM 200 MCG TABLET PO SCH (05:57)
[2019-09-09] MEDS: LEVOTHYROXINE SODIUM 100 MCG TABLET PO SCH (05:57)
[2019-09-09 06:08] LABS: Hematocrit (blood only) 21.5 % (42-52); Hemoglobin 7.3 g/dL (14.0-18.0); Mean Corpuscular Hemoglobin 31.1 pg (25-34); Mean Corpuscular Volume 91.5 fL (80-100); RDW Coefficient of Variation 16.3 % (11.5-14.5); RDW Standard Deviation 54.8 fL (36.4-46.3); Red Blood Count 2.35 M/uL (4.7-6.1); White Blood Count 3.57 K/uL (4.8-10.8)
[2019-09-09 06:29] LABS: Mean Platelet Volume 11.4 fL (7.4-10.4); Platelet Count 89 K/uL (130-400); Platelet Estimate Decreased (Normal)
[2019-09-09 06:59] LABS: Albumin Globulin Ratio 0.8 (0.9-2); Albumin Level 2.6 gm/dl (3.4-5.0); BUN Creatinine Ratio 10.9 (10-20); Bilirubin,Total 0.5 mg/dl (0.2-1); Calcium 8.8 mg/dl (8.5-10.1); Creatinine Clr Calc Pharmacy 9.4 ml/min; Est GFR (African American) 6.8; Est GFR (Non-African American) 5.9; Globulin 3.2 gm/dl (2.5-4.0); Potassium 3.5 mmol/L (3.5-5.1); Total Protein 5.8 gm/dl (6.4-8.2)
[2019-09-09] MEDS: PANTOprazole 40 MG TAB PO SCH ×3 (08:41→23:49)
[2019-09-09] MEDS: FERROUS SULFATE 325 MG TAB PO SCH ×3 (08:42→23:48)
[2019-09-09] MEDS: TRIAMCINOLONE ACET 0.1% CR 15 GM TUBE TOP SCH ×3 (08:42→23:48)
[2019-09-09] MEDS: DOCUSATE SODIUM 100 MG CAP PO SCH (08:42)
[2019-09-09] MEDS: CALCIUM ACETATE 667 MG CAP/TAB PO SCH ×3 (08:42→16:54)
[2019-09-09] MEDS ORDERED: SODIUM CHLORIDE 0.9% 250 ML IV PRN ×2 (09:26→10:10)
[2019-09-09] MEDS: INSULIN ASPART 100 UNITS/ML 3 ML PEN SC SCH ×4 (09:29→21:15)
[2019-09-09] MEDS: HydrALAZINE TAB 50 MG TAB PO SCH ×3 (09:39→17:28)
[2019-09-09] MEDS: BUMETANIDE 1 MG TAB PO SCH ×2 (09:41→17:28)
--- NOTE | 2019-09-09 10:05 | Nephrology Progress Note ---
Date of Service September 09, 2019 Assessment & Plan (1) ESRD (end stage renal disease) on dialysis: IHD TTS at [facility] (4hr 2K 2.5Ca F-200NR EDW 97.5 kg - primary Body Piercer Dr. Briceno). Non-compliance remains the primary reason for repeat hospital admissions. Augie denies any desire to stop hemodialysis. I have not been able to identify any specific barriers to regular attendance at hemodialysis expect for Augie's regular refusal. This has resulted in an unfortunate pattern for repeated hospitalizations with severe anemia, fluid retention, and uremia. Further complicating the patient's medical condition is multifactorial anemia with persist UGIB associated with GAVE. However, by not attending HD as scheduled, Augie has not been present in the outpatient unit to receive appropriate NEMESIO therapy. He acknowledges these concerns and states that he is motivated to change his behavior in order to improve his health. This is similar to conversations that I have had with him in the past. Augie does not feel that transitioning into a assisted living facility would help his situation. Emergency HD provided yesterday afternoon. 1 u PRBC and EPO 94639 units provided with dialysis. Hgb remains 7.3. An additional 2 units have been ordered for today. No overt signs of active GI bleeding have been noted. There is a chronic history of leukopenia and thrombocytopenia. Medical history is notable for cirrhosis and MGUS. Augie has been evaluated by hematology in the past. No additional significant changes noted. BP has been reasonable post HD. I would anticipate additional improvement with added UF today. (2) Acute on chronic blood loss anemia: (3) GAVE (gastric antral vascular ectasia): (4) Hypertension: (5) Cirrhosis: (6) Anemia of renal disease: Subjective Augie has been ambulating in his room. Tolerated HD well yesterday. He did develop some back pain overnight. He is breathing comfortably. No bowel movement since admission - no melena or hematochezia. Augie feels well. He remains slightly lightheaded. He denies chest pain or shortness of breath. Review of Systems Review of Systems: All systems reviewed & are unremarkable except as noted in HPI & below Physical Exam Physical Exam: limited exam due to COVID 19 pandemic. Constitutional: + thin and + frail appearing; no acute distress Eyes: + conjunctival abnormality (pallor) and + anicteric sclerae ENMT: Mouth: no oral mucosal abnormality and oral mucous membranes not dry Neck: normal visual inspection and trachea midline Respiratory: no respiratory distress Cardiovascular: Extremities: + AV fistula Psychiatric: Orientation: alert and oriented x 3 Results & Data Vital Signs (Past 12 Hours) Vital Signs Temp Pulse Pulse Resp BP Pulse Ox 09/09/19 07:20 36.8 C 60 16 164/61 H 92 09/09/19 06:52 36.8 C 64 18 161/69 H 98 09/09/19 04:04 78 09/08/19 23:03 37.0 C 72 19 194/72 H 94 Laboratory Results Laboratory Results - last 24 hr 09/08/19 09/08/19 09/08/19 12:40 12:40 13:59 WBC 3.61 L RBC 2.40 L Hgb 7.4 L Hct 22.1 L MCV 92.1 MCH 30.8 MCHC 33.5 RDW Std Deviation 54.2 H RDW Coeff of Jose C 16.0 H Plt Count 106 L MPV 12.0 H Immature Gran % (Auto) 0.0 Neut % (Auto) 63.4 Lymph % (Auto) 11.9 [place] % (Auto) 19.9 Eos % (Auto) 4.2 Baso % (Auto) 0.6 Immature Gran # (Auto) 0.00 Neut # (Auto) 2.29 Lymph # (Auto) 0.43 L [place] # (Auto) 0.72 H Eos # (Auto) 0.15 Baso # (Auto) 0.02 Platelet Estimate Decreased L RBC Morphology Unremarkable Sodium 142 Potassium 4.0 Chloride 104 Carbon Dioxide 26 Anion Gap 12.0 H BUN 119 H Creatinine 10.40 H* Est Cr Clr Drug Dosing 7.4 Est GFR ( Amer) 4.9 Est GFR (Non-Af Amer) 4.3 BUN/Creatinine Ratio 11.5 Glucose 118 H POC Glucose Calcium 8.5 Phosphorus 7.0 H Magnesium 2.2 Total Bilirubin 0.5 AST 19 ALT 28 Alkaline Phosphatase 110 Total Protein 6.4 Albumin 2.9 L Globulin 3.5 Albumin/Globulin Ratio 0.8 L Lipase 375 Nasal Screen MRSA (PCR) Blood Type B Positive Antibody Screen NEGATIVE Crossmatch See Detail 09/08/19 09/08/19 09/08/19 18:31 20:05 21:00 WBC RBC Hgb Hct MCV MCH MCHC RDW Std Deviation RDW Coeff of Jose C Plt Count MPV Immature Gran % (Auto) Neut % (Auto) Lymph % (Auto) [place] % (Auto) Eos % (Auto) Baso % (Auto) Immature Gran # (Auto) Neut # (Auto) Lymph # (Auto) [place] # (Auto) Eos # (Auto) Baso # (Auto) Platelet Estimate RBC Morphology Sodium Potassium Chloride Carbon Dioxide Anion Gap BUN Creatinine Est Cr Clr Drug Dosing Est GFR ( Amer) Est GFR (Non-Af Amer) BUN/Creatinine Ratio Glucose POC Glucose 108 H 140 H Calcium Phosphorus Magnesium Total Bilirubin AST ALT Alkaline Phosphatase Total Protein Albumin Globulin Albumin/Globulin Ratio Lipase Nasal Screen MRSA (PCR) Negative Blood Type Antibody Screen Crossmatch 09/09/19 09/09/19 09/09/19 05:35 05:35 07:37 WBC 3.57 L RBC 2.35 L Hgb 7.3 L Hct 21.5 L MCV 91.5 MCH 31.1 MCHC 34.0 RDW Std Deviation 54.8 H RDW Coeff of Jose C 16.3 H Plt Count 89 L MPV 11.4 H Immature Gran % (Auto) Neut % (Auto) Lymph % (Auto) [place] % (Auto) Eos % (Auto) Baso % (Auto) Immature Gran # (Auto) Neut # (Auto) Lymph # (Auto) [place] # (Auto) Eos # (Auto) Baso # (Auto) Platelet Estimate Decreased L RBC Morphology Sodium 142 Potassium 3.5 Chloride 107 Carbon Dioxide 27 Anion Gap 8.0 BUN 85 H Creatinine 7.97 H* D Est Cr Clr Drug Dosing 9.4 Est GFR ( Amer) 6.8 Est GFR (Non-Af Amer) 5.9 BUN/Creatinine Ratio 10.9 Glucose 85 POC Glucose 73 Calcium 8.8 Phosphorus Magnesium Total Bilirubin 0.5 AST 17 ALT 26 Alkaline Phosphatase 99 Total Protein 5.8 L Albumin 2.6 L Globulin 3.2 Albumin/Globulin Ratio 0.8 L Lipase Nasal Screen MRSA (PCR) Blood Type Antibody Screen Crossmatch PG Care Time/CCT Total # of Minutes Spent Total Time Spent with Patient: Total time spent is greater than 50% in coordination of care (as documented) at patient's floor/unit and/or counseling patient: Coding Level of Care Code 78462 Subseq Hosp Care Lvl 3 Diagnoses ESRD (end stage renal disease) on dialysis N18.6; Z99.2 Acute on chronic blood loss anemia D62 GAVE (gastric antral vascular ectasia) K31.819 Hypertension I10 Hypertension type: unspecified Cirrhosis K74.60 Ascites presence: unspecified Hepatic cirrhosis type: unspecified hepatic cirrhosis Anemia of renal disease N18.9; D63.1 (1) Hypertension Hypertension type: unspecified Qualified Code(s): I10 - Essential (primary) hypertension (2) Cirrhosis Ascites presence: unspecified Hepatic cirrhosis type: unspecified hepatic cirrhosis Qualified Code(s): K74.60 - Unspecified cirrhosis of liver
--- NOTE | 2019-09-09 12:10 | Hospitalist Progress Note ---
Date of Service September 09, 2019 Assessment & Plan (1) Acute on chronic blood loss anemia: -admit to [facility] [place] with telemetry -Hemoglobin found to be 7.4 on outpatient CBC, trending weekly with history of chronic blood loss anemia requiring multiple transfusions in the past -s/p 1 unit PRBC on 09/07, no real improvement in Hb today, will given 2 units today EPO per renal (2) ESRD (end stage renal disease) on dialysis: -Currently getting HD after missing 3 sessions, creatinine elevated at 10, BUN = 119 at time of admission. -Follow with yesi PRP, slight improvement in cr s/p HD -Regularly scheduled Saturday -Nephrology consulted HD on 09/07 and again today (3) Hiatal hernia with GERD without esophagitis: -Continue PPI bid (4) GAVE (gastric antral vascular ectasia): - was scheduled to have outpatient follow-up with Dr. White on 09/08 for EGD for possible cauterization and repeat EGD with continuing blood loss and anemia despite transfusions GI c/s pending EGD scheduled for tomorrow (5) Hypertension: -Continue amlodipine 10 mg at bedtime, Bumex 2 mg BID, doxazosin 1 mg daily, hydralazine 50 mg TID, labetalol 200 mcg daily, lisinopril 40 mg daily -BP slightly elevated upon arrival, likely secondary to volume overload in the setting of no dialysis for 1 week (6) Peripheral vascular disease: hx noted (7) Pulmonary hypertension: -Noted (8) Hyperlipidemia LDL goal <70: -Continue rosuvastatin 20 mg every afternoon (9) Diabetes mellitus, type 2: -Can continue Levemir 15 units at bedtime, with ISS with Accu-Cheks ACHS (10) Diabetic peripheral neuropathy: -History of such, patient reports no worsening numbness or tingling currently. (11) COPD (chronic obstructive pulmonary disease): -Stable, no signs of acute exacerbation, history of pneumonia noted on CXR however patient afebrile without elevated white count, -If worsening shortness of breath consider checking CXR with volume overload from missing dialysis recently (12) Obstructive sleep apnea: -Continue with 2 L O2 via NC at bedtime (13) Hypothyroidism: -Continue levothyroxine 300 mcg daily (14) Vitamin D deficiency: -Continue calcium supplementation, renal caps (15) Arthritis: -Chronic, stable DVT ppx: - teds, scd CODE: Full code Admission and Anticipated Discharge Date Admission Date: September 08, 2019 Subjective Pt states he could not sleep last night and is very tired. Ate breakfast today. Pt denies fever, SOB, chest pain, abd pain, n/v/c/d, LE pain or swelling. Review of Systems Review of Systems: Pertinent positives and negatives reviewed in HPI--all others negative Physical Exam Constitutional: WD/WN, vitals as above Eyes: normal visual arreaga by confrontation and + anicteric sclerae Neck: normal visual inspection and trachea midline Respiratory: normal respiratory effort; no respiratory distress Auscultation: + crackles (scant); no wheezes Cardiovascular: Rate/Rhythm: regular rate and regular rhythm Gastrointestinal (Abdomen): Inspection/Auscultation: abdomen not distended Percussion/Palpation: abdomen soft; abdomen nontender Musculoskeletal: Head/Neck/Chest: normocephalic and head atraumatic Skin: no rashes, warm and dry Neurologic: awake; not confused Speech / Cognition: + abnormal speech (slow to respond, groggy) Psychiatric: A+Ox3, euthymic affect Results & Data Results & Data ([facility]) Vital Signs (Past 12 Hours) Vital Signs Temp Pulse Pulse Resp BP Pulse Ox 09/09/19 10:34 56 L 09/09/19 07:20 36.8 C 60 16 164/61 H 92 09/09/19 06:52 36.8 C 64 18 161/69 H 98 09/09/19 04:04 78 PG Care Time/CCT Total # of Minutes Spent Total Time Spent with Patient: Total time spent is greater than 50% in coordination of care (as documented) at patient's floor/unit and/or counseling patient: Coding Level of Care Code 33888 Subseq Hosp Care Lvl 3 Diagnoses Acute on chronic blood loss anemia D62 ESRD (end stage renal disease) on dialysis N18.6; Z99.2 Hiatal hernia with GERD without esophagitis K44.9; K21.9 GAVE (gastric antral vascular ectasia) K31.819 Hypertension I10 Hypertension type: unspecified Peripheral vascular disease I73.9 Pulmonary hypertension I27.20 Hyperlipidemia LDL goal <70 E78.5 Diabetes mellitus, type 2 E11.9 Diabetic peripheral neuropathy E11.42 COPD (chronic obstructive pulmonary disease) J44.9 COPD type: unspecified COPD Obstructive sleep apnea G47.33 Hypothyroidism E03.9 Hypothyroidism type: unspecified Vitamin D deficiency E55.9 Arthritis M19.90 (1) Hypertension Hypertension type: unspecified Qualified Code(s): I10 - Essential (primary) hypertension (2) COPD (chronic obstructive pulmonary disease) COPD type: unspecified COPD Qualified Code(s): J44.9 - Chronic obstructive pulmonary disease, unspecified (3) Hypothyroidism Hypothyroidism type: unspecified Qualified Code(s): E03.9 - Hypothyroidism, unspecified
[2019-09-09] MEDS: FOLIC ACID 1 MG TAB PO SCH (12:30)
[2019-09-09] MEDS: NEPHROCAPS PO SCH (12:31)
[2019-09-09] MEDS: LABETALOL HCL 200 MG TAB PO SCH ×3 (12:36→23:49)
--- NOTE | 2019-09-09 14:46 | Electrocardiogram Report ---
Test Reason : Blood Pressure : / mmHG Vent. Rate : 070 BPM Atrial Rate : 070 BPM P-R Int : 244 ms QRS Dur : 158 ms QT Int : 484 ms P-R-T Axes : 085 104 -50 degrees QTc Int : 522 ms Poor data quality, interpretation may be adversely affected Sinus rhythm with 1st degree A-V block Right bundle branch block T wave abnormality, consider inferolateral ischemia Abnormal ECG When compared with ECG of 14-AUG-2019 15:44, No significant change Confirmed by Gus Mcclellan ([id number]) on 09/09/2019 2:46:25 PM Referred By: REFERRED SELF Confirmed By:Gus Mcclellan
--- NOTE | 2019-09-09 15:25 | Consultation Report ---
DATE OF CONSULTATION: 09/09/2019 GASTROINTESTINAL CONSULTATION REASON FOR EVALUATION: Chronic blood loss anemia and gastrointestinal antral vascular ectasia. HISTORY OF PRESENT ILLNESS: The patient is a 79-year-old well known to me from previous evaluations for GAVE with bleeding. The patient has had multiple endoscopies with argon plasma coagulation of the antrum to help reduce his ongoing need for blood transfusions from bleeding. He was referred to [facility] for additional evaluation and no further bleeding sites were identified. As an outpatient, he has been getting a blood count once a week during dialysis, which he gets on Tuesdays, and Saturdays and if his hemoglobin drops below 8, he is to get transfused a unit of blood. This has been working only partially well as the patient has missed some of his dialysis sessions and recently he has missed 4 over the last couple of weeks and presented to the hospital with uremia and anemia, hemoglobin 7.4. The patient is hospitalized; he had emergency dialysis yesterday and is also getting dialyzed again today. During dialysis, he is receiving currently 2 units of red blood cells. The patient does feel tired, but other than that, he is not far off of his baseline. PAST MEDICAL HISTORY: Remarkable for end-stage renal disease - on hemodialysis. The patient has gastric antral vascular ectasia with chronic anemia, hypertension, peripheral vascular disease, pulmonary hypertension, hyperlipidemia, diabetes, COPD, sleep apnea, hypothyroidism, vitamin D deficiency and arthritis. MEDICATIONS: Extensive, please see list. ALLERGIES: SUCRALFATE, TRAMADOL AND METFORMIN. FAMILY HISTORY: Mother had diabetes, breast cancer, hypertension and gallbladder disease. Father had diabetes, hypertension. Brother with diabetes, kidney disease, hypertension. SOCIAL HISTORY: The patient is and lives with his family. He is on disability. He is a former smoker. Uses no alcohol. REVIEW OF SYSTEMS: Positive for chronic fatigue and neuropathy in his extremities with tingling. PHYSICAL EXAMINATION: The patient is examined while on dialysis. He is receiving his second unit of blood currently. He is awake and conversant but somewhat disheveled. He does have multiple excoriations and ecchymoses on his arms. IMPRESSION AND PLAN: The patient has chronic gastrointestinal blood loss from gastric antral vascular ectasia. The patient will be n.p.o. after midnight and we will schedule him for an EGD with argon plasma coagulation of the gastric antrum tomorrow on 09/09. [facility]
[2019-09-09] MEDS: lisinopriL 40 MG TAB PO SCH (16:35)
[2019-09-09] MEDS: DOXAZOSIN MESYLATE 1 MG TAB PO SCH (16:35)
[2019-09-09] MEDS: AMLODIPINE BESYLATE 5 MG TAB PO SCH ×2 (21:13→23:49)
[2019-09-09] MEDS: INSULIN DETEMIR FLEXPEN/FLEX TOUCH 100 UNITS/ML 3ML SC SCH ×2 (21:13→23:48)
[2019-09-09] MEDS: TAMSULOSIN HCL 0.4 MG CAP PO SCH ×2 (21:13→23:48)
[2019-09-09] MEDS: ROSUVASTATIN CALCIUM 20 MG TAB PO SCH ×2 (21:13→23:48)
[2019-09-09] MEDS: GABAPENTIN 100 MG CAP PO SCH ×2 (21:13→23:48)
[2019-09-09] MEDS: CYANOCOBALAMIN 500 MCG TABLET (VITAMIN B-12) PO SCH ×2 (21:13→23:49)
[2019-09-09] MEDS ORDERED: HALOPERIDOL LACTATE 5 MG/ML 1 ML VIAL IM STA ×2 (22:21→22:32)
[2019-09-09] MEDS ORDERED: HALOPERIDOL LACTATE 5 MG/ML 1 ML VIAL ONE (22:22)
[2019-09-09] MEDS ORDERED: SODIUM CHLORIDE 0.9% 1000ML 500 ML IV ONE (22:47)
[2019-09-09 22:52] LABS: Basophils # (auto) 0.04 K/uL (0-0.2); Eosinophils # (auto) 0.19 K/uL (0-0.5); Eosinophils % (auto) 4.8 %; Hematocrit (blood only) 24.9 % (42-52); Hemoglobin 8.3 g/dL (14.0-18.0); Lymphocytes # (auto) 0.35 K/uL (1.2-3.4); Lymphocytes % (auto) 8.8 %; Mean Corpuscular Hgb Conc 33.3 g/dL (32-36); Mean Corpuscular Volume 89.9 fL (80-100); Mean Platelet Volume 11.2 fL (7.4-10.4); Monocytes # (auto) 0.54 K/uL (0.11-0.59); Monocytes % (auto) 13.6 %; Neutrophils # (auto) 2.84 K/uL (1.4-6.5); Neutrophils % (auto) 71.8 %; Platelet Count 103 K/uL (130-400); RDW Coefficient of Variation 17.1 % (11.5-14.5); RDW Standard Deviation 57.4 fL (36.4-46.3); Red Blood Count 2.77 M/uL (4.7-6.1); White Blood Count 3.96 K/uL (4.8-10.8)
[2019-09-09 23:29] LABS: BUN Creatinine Ratio 10.7 (10-20); Calcium 8.8 mg/dl (8.5-10.1); Creatinine Clr Calc Pharmacy 13.8 ml/min; Est GFR (African American) 11.1; Est GFR (Non-African American) 9.5; Potassium 3.9 mmol/L (3.5-5.1)
--- NOTE | 2019-09-09 23:29 | Communication Note ---
Date of Service: September 09, 2019 Reported to bedside at 1930, called by nursing following patient's refusal to have repeat vitals taken at that time. One-to-one sitter at bedside with omi ent. After shared decision-making with patient, he was agreeable with having VS taken if taken by myself. VS: Manual BP of 170/90, HR 77, RR 18, Sats 93% on RA, Temp 36.7 C Returned to bedside at 2122, as patient now combative and refusing all medications one-to-one sitter, security, and nursing at bedside with patient on presentation. Patient alert, withdrawn, sitting at side of bed; responsive to voice, moves all extremities spontaneously, able to form complete sentences, but choosing to not respond to questions; not responding to external or internal stimuli. Ordered CBC/BMP/Ammonia as this new reduced mental status could represent metabolic encephalopathy. 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 Extensive discussion with patient on need to determine new changes, and patient remaining non-verbal. After 0.5mg of IM Haldol was given, patient allowed IV team to replace R peripheral IV, and allowed labs to be drawn. Previous Ammonia level 29 in December 2018; ammonia now elevated to 61.1; potential cause of patient's current reduced mental status. Patient does have baseline cirrhosis, but without previous ammonia elevation. Will check collect blood/ur ine/sputum cultures. Additionally, gave 20mg of Lactulose. Re-evaluated patient at 0500, remains responsive to voice, moving all extremities spontaneously, and able to form complete sentences; seems to still be choosing to not respond to questions, not responding to external or internal stimuli. Patient clearly fatigued, but in speaking with nursing staff and one-to-one sitter, patient has only slept minimally over night. 09/09/19 09/09/19 09/09/19 Range/Units 22:44 22:44 22:44 WBC 3.96 L (4.8-10.8) K/uL RBC 2.77 L (4.7-6.1) M/uL Hgb 8.3 L (14.0-18.0) g/dL Hct 24.9 L (42-52) % MCV 89.9 (80-100) fL MCH 30.0 (25-34) pg MCHC 33.3 (32-36) g/dL RDW Std Deviation 57.4 H (36.4-46.3) fL RDW Coeff of Jose C 17.1 H (11.5-14.5) % Plt Count 103 L (130-400) K/uL MPV 11.2 H (7.4-10.4) fL Immature Gran % (Auto) 0.0 % Neut % (Auto) 71.8 % Lymph % (Auto) 8.8 % [place] % (Auto) 13.6 % Eos % (Auto) 4.8 % Baso % (Auto) 1.0 % Immature Gran # (Auto) 0.00 (0.00-0.02) K/uL Neut # (Auto) 2.84 (1.4-6.5) K/uL Lymph # (Auto) 0.35 L (1.2-3.4) K/uL [place] # (Auto) 0.54 (0.11-0.59) K/uL Eos # (Auto) 0.19 (0-0.5) K/uL Baso # (Auto) 0.04 (0-0.2) K/uL Platelet Estimate (Normal) Sodium 140 (136-145) mmol/L Potassium 3.9 (3.5-5.1) mmol/L Chloride 105 (98-107) mmol/L Carbon Dioxide 27 (21-32) mmol/L Anion Gap 7.0 (3-11) BUN 58 H (7-18) mg/dl Creatinine 5.34 H* D (0.6-1.4) mg/dl Est Cr Clr Drug Dosing 13.8 ml/min Est GFR ( Amer) 11.1 Est GFR (Non-Af Amer) 9.5 BUN/Creatinine Ratio 10.7 (10-20) Glucose 143 H (70-99) mg/dl POC Glucose (70-99) mg/dl Calcium 8.8 (8.5-10.1) mg/dl Total Bilirubin (0.2-1) mg/dl AST (15-37) U/L ALT (12-78) U/L Alkaline Phosphatase (45-117) U/L Ammonia 61.1 H (11-32) umol/L Total Protein (6.4-8.2) gm/dl Albumin (3.4-5.0) gm/dl Globulin (2.5-4.0) gm/dl Albumin/Globulin Ratio (0.9-2) Blood Type Antibody Screen Crossmatch 09/09/19 09/09/19 09/09/19 Range/Units 21:07 16:32 11:38 WBC (4.8-10.8) K/uL RBC (4.7-6.1) M/uL Hgb (14.0-18.0) g/dL Hct (42-52) % MCV (80-100) fL MCH (25-34) pg MCHC (32-36) g/dL RDW Std Deviation (36.4-46.3) fL RDW Coeff of Jose C (11.5-14.5) % Plt Count (130-400) K/uL MPV (7.4-10.4) fL Immature Gran % (Auto) % Neut % (Auto) % Lymph % (Auto) % [place] % (Auto) % Eos % (Auto) % Baso % (Auto) % Immature Gran # (Auto) (0.00-0.02) K/uL Neut # (Auto) (1.4-6.5) K/uL Lymph # (Auto) (1.2-3.4) K/uL [place] # (Auto) (0.11-0.59) K/uL Eos # (Auto) (0-0.5) K/uL Baso # (Auto) (0-0.2) K/uL Platelet Estimate (Normal) Sodium (136-145) mmol/L Potassium (3.5-5.1) mmol/L Chloride (98-107) mmol/L Carbon Dioxide (21-32) mmol/L Anion Gap (3-11) BUN (7-18) mg/dl Creatinine (0.6-1.4) mg/dl Est Cr Clr Drug Dosing ml/min Est GFR ( Amer) Est GFR (Non-Af Amer) BUN/Creatinine Ratio (10-20) Glucose (70-99) mg/dl POC Glucose 139 H 107 H 93 (70-99) mg/dl Calcium (8.5-10.1) mg/dl Total Bilirubin (0.2-1) mg/dl AST (15-37) U/L ALT (12-78) U/L Alkaline Phosphatase (45-117) U/L Ammonia (11-32) umol/L Total Protein (6.4-8.2) gm/dl Albumin (3.4-5.0) gm/dl Globulin (2.5-4.0) gm/dl Albumin/Globulin Ratio (0.9-2) Blood Type Antibody Screen Crossmatch 09/09/19 09/09/19 09/09/19 Range/Units 07:37 05:35 05:35 WBC 3.57 L (4.8-10.8) K/uL RBC 2.35 L (4.7-6.1) M/uL Hgb 7.3 L (14.0-18.0) g/dL Hct 21.5 L (42-52) % MCV 91.5 (80-100) fL MCH 31.1 (25-34) pg MCHC 34.0 (32-36) g/dL RDW Std Deviation 54.8 H (36.4-46.3) fL RDW Coeff of Jose C 16.3 H (11.5-14.5) % Plt Count 89 L (130-400) K/uL MPV 11.4 H (7.4-10.4) fL Immature Gran % (Auto) % Neut % (Auto) % Lymph % (Auto) % [place] % (Auto) % Eos % (Auto) % Baso % (Auto) % Immature Gran # (Auto) (0.00-0.02) K/uL Neut # (Auto) (1.4-6.5) K/uL Lymph # (Auto) (1.2-3.4) K/uL [place] # (Auto) (0.11-0.59) K/uL Eos # (Auto) (0-0.5) K/uL Baso # (Auto) (0-0.2) K/uL Platelet Estimate Decreased L (Normal) Sodium 142 (136-145) mmol/L Potassium 3.5 (3.5-5.1) mmol/L Chloride 107 (98-107) mmol/L Carbon Dioxide 27 (21-32) mmol/L Anion Gap 8.0 (3-11) BUN 85 H (7-18) mg/dl Creatinine 7.97 H* D (0.6-1.4) mg/dl Est Cr Clr Drug Dosing 9.4 ml/min Est GFR ( Amer) 6.8 Est GFR (Non-Af Amer) 5.9 BUN/Creatinine Ratio 10.9 (10-20) Glucose 85 (70-99) mg/dl POC Glucose 73 (70-99) mg/dl Calcium 8.8 (8.5-10.1) mg/dl Total Bilirubin 0.5 (0.2-1) mg/dl AST 17 (15-37) U/L ALT 26 (12-78) U/L Alkaline Phosphatase 99 (45-117) U/L Ammonia (11-32) umol/L Total Protein 5.8 L (6.4-8.2) gm/dl Albumin 2.6 L (3.4-5.0) gm/dl Globulin 3.2 (2.5-4.0) gm/dl Albumin/Globulin Ratio 0.8 L (0.9-2) Blood Type Antibody Screen Crossmatch 09/08/19 Range/Units 13:59 WBC (4.8-10.8) K/uL RBC (4.7-6.1) M/uL Hgb (14.0-18.0) g/dL Hct (42-52) % MCV (80-100) fL MCH (25-34) pg MCHC (32-36) g/dL RDW Std Deviation (36.4-46.3) fL RDW Coeff of Jose C (11.5-14.5) % Plt Count (130-400) K/uL MPV (7.4-10.4) fL Immature Gran % (Auto) % Neut % (Auto) % Lymph % (Auto) % [place] % (Auto) % Eos % (Auto) % Baso % (Auto) % Immature Gran # (Auto) (0.00-0.02) K/uL Neut # (Auto) (1.4-6.5) K/uL Lymph # (Auto) (1.2-3.4) K/uL [place] # (Auto) (0.11-0.59) K/uL Eos # (Auto) (0-0.5) K/uL Baso # (Auto) (0-0.2) K/uL Platelet Estimate (Normal) Sodium (136-145) mmol/L Potassium (3.5-5.1) mmol/L Chloride (98-107) mmol/L Carbon Dioxide (21-32) mmol/L Anion Gap (3-11) BUN (7-18) mg/dl Creatinine (0.6-1.4) mg/dl Est Cr Clr Drug Dosing ml/min Est GFR ( Amer) Est GFR (Non-Af Amer) BUN/Creatinine Ratio (10-20) Glucose (70-99) mg/dl POC Glucose (70-99) mg/dl Calcium (8.5-10.1) mg/dl Total Bilirubin (0.2-1) mg/dl AST (15-37) U/L ALT (12-78) U/L Alkaline Phosphatase (45-117) U/L Ammonia (11-32) umol/L Total Protein (6.4-8.2) gm/dl Albumin (3.4-5.0) gm/dl Globulin (2.5-4.0) gm/dl Albumin/Globulin Ratio (0.9-2) Blood Type B Positive Antibody Screen NEGATIVE Crossmatch See Detail Resident Activity Tracking Resident Involvement: Resident Care Provided Care Provided: Adult Hospital Medicine
[2019-09-10] MEDS: ACETAMINOPHEN 325 MG TAB PO PRN (01:10)
[2019-09-10] MEDS ORDERED: LACTULOSE SYRUP 20 GM/30 ML UDC PO ONE (01:12)
[2019-09-10] MEDS: LEVOTHYROXINE SODIUM 100 MCG TABLET PO SCH (05:37)
[2019-09-10] MEDS: LEVOTHYROXINE SODIUM 200 MCG TABLET PO SCH (05:37)
[2019-09-10 07:03] LABS: Hematocrit (blood only) 24.7 % (42-52); Hemoglobin 8.3 g/dL (14.0-18.0); Mean Corpuscular Hemoglobin 30.4 pg (25-34); Mean Corpuscular Hgb Conc 33.6 g/dL (32-36); Mean Corpuscular Volume 90.5 fL (80-100); RDW Coefficient of Variation 17.2 % (11.5-14.5); RDW Standard Deviation 57.6 fL (36.4-46.3); Red Blood Count 2.73 M/uL (4.7-6.1); White Blood Count 3.65 K/uL (4.8-10.8)
[2019-09-10 07:36] LABS: Mean Platelet Volume 10.3 fL (7.4-10.4); Platelet Count 94 K/uL (130-400)
[2019-09-10 07:37] LABS: Platelet Estimate Decreased (Normal)
[2019-09-10 07:51] LABS: Albumin Globulin Ratio 0.9 (0.9-2); Albumin Level 2.8 gm/dl (3.4-5.0); BUN Creatinine Ratio 11.6 (10-20); Bilirubin,Total 0.8 mg/dl (0.2-1); Calcium 8.7 mg/dl (8.5-10.1); Creatinine Clr Calc Pharmacy 12.3 ml/min; Est GFR (African American) 9.6; Est GFR (Non-African American) 8.3; Globulin 3.1 gm/dl (2.5-4.0); Potassium 3.8 mmol/L (3.5-5.1); Total Protein 5.9 gm/dl (6.4-8.2)
[2019-09-10] MEDS: INSULIN ASPART 100 UNITS/ML 3 ML PEN SC SCH ×4 (07:58→20:59)
[2019-09-10] MEDS: BUMETANIDE 1 MG TAB PO SCH ×2 (08:50→17:59)
[2019-09-10] MEDS: HydrALAZINE TAB 50 MG TAB PO SCH ×3 (08:50→18:00)
[2019-09-10] MEDS: FERROUS SULFATE 325 MG TAB PO SCH ×2 (08:50→21:01)
[2019-09-10] MEDS: CALCIUM ACETATE 667 MG CAP/TAB PO SCH ×3 (08:51→17:59)
[2019-09-10] MEDS: LABETALOL HCL 200 MG TAB PO SCH ×2 (08:51→21:01)
[2019-09-10] MEDS: PANTOprazole 40 MG TAB PO SCH ×2 (08:52→21:00)
[2019-09-10] MEDS: DOCUSATE SODIUM 100 MG CAP PO SCH (08:53)
[2019-09-10] MEDS: TRIAMCINOLONE ACET 0.1% CR 15 GM TUBE TOP SCH ×2 (08:53→20:58)
--- NOTE | 2019-09-10 09:57 | Hospitalist Progress Note ---
Date of Service September 10, 2019 Assessment & Plan (1) Acute on chronic blood loss anemia: Hemoglobin is 8.3 this morning, consistent with level yesterday. I will recheck over the next 24 hours. Patient appears to be status post 3 units of packed red blood cells per documentation. Anemia is likely chronic, multifactorial secondary to chronic renal disease and history of GAVE (2) ESRD (end stage renal disease) on dialysis: Last hemodialysis session was yesterday. Patient is usually Saturday, , Saturday schedule when he is compliant. Being followed by nephrology, consideration to hemodialysis the next 24 hours per their recommendations. (3) Hiatal hernia with GERD without esophagitis: -Continue PPI bid (4) GAVE (gastric antral vascular ectasia): Patient is currently on PPI twice daily. Is for EGD with GI at 1 PM today, possible laser cauterization if required. (5) Hypertension: -Continue amlodipine 10 mg at bedtime, Bumex 2 mg BID, doxazosin 1 mg daily, hydralazine 50 mg TID, labetalol 200 mcg daily, lisinopril 40 mg daily -BP slightly elevated upon arrival, likely secondary to volume overload in the setting of no dialysis for 1 week (6) Peripheral vascular disease: hx noted (7) Pulmonary hypertension: -Noted (8) Hyperlipidemia LDL goal <70: -Continue rosuvastatin 20 mg every afternoon (9) Diabetes mellitus, type 2: -Can continue Levemir 15 units at bedtime, with ISS with Accu-Cheks ACHS (10) Diabetic peripheral neuropathy: -History of such, patient reports no worsening numbness or tingling currently. (11) COPD (chronic obstructive pulmonary disease): -Stable, no signs of acute exacerbation, history of pneumonia noted on CXR however patient afebrile without elevated white count, -If worsening shortness of breath consider checking CXR with volume overload from missing dialysis recently (12) Obstructive sleep apnea: -Continue with 2 L O2 via NC at bedtime (13) Hypothyroidism: -Continue levothyroxine 300 mcg daily (14) Vitamin D deficiency: -Continue calcium supplementation, renal caps (15) Arthritis: -Chronic, stable DVT ppx: - teds, scd CODE: Full code I did have a conversation with Isabel over the phone at [phone]. We did discuss plan for the next 24 hours including EGD and overnight monitoring, she is agreeable for this plan felt he was discharged too early during his previous stay. We did also discuss compliance with dialysis, she understands very well the patient requires 3 days a week of hemodialysis but that the patient is difficult to convince. She also notes that he sleeps poorly at night and is sometimes agitated at home, we can consider possible senile dementia with sundowning behavior is a diagnosis. I did advise her that I believe the patient's health will continue to decline, especially if he is intermittently refusing hemodialysis. However, the feels he is not ready for end-of-life discussion at this time. I will keep patient updated on hospital course. Admission and Anticipated Discharge Date Admission Date: September 08, 2019 Subjective Patient seen and examined. He sitting on side of bed. He does not speak much to me but does not appear to be particularly uncomfortable. I did review the notes from the overnight resident, patient was extremely agitated late last night into this morning. He was initially refusing any blood work or vitals was eventually convinced to accept these. I did note that his ammonia level is elevated at 61. His hemoglobin has been stable at 8.3 status post multiple packed red blood transfusions. Physical Exam Constitutional: no acute distress Neck: trachea midline, no thyromegaly Respiratory: normal respiratory effort Auscultation: + diminished lung sounds; no crackles, no rales, no rhonchi and no wheezes Cardiovascular: Rate/Rhythm: regular rate and regular rhythm Heart Sounds: normal S1 and normal S2 Gastrointestinal (Abdomen): Inspection/Auscultation: abdomen normal to inspection Percussion/Palpation: abdomen soft; abdomen nontender, no guarding, abdomen not rigid and no hepatosplenomegaly Musculoskeletal: Trace pitting edema, extensive of venous stasis changes Skin: no rashes, warm and dry Psychiatric: Smiles but otherwise has a flat affect, one-word answers to questions. Cooperative with exam. Results & Data Results & Data ([facility]) Vital Signs (Past 12 Hours) Vital Signs Temp Pulse Pulse Resp BP Pulse Ox 09/10/19 07:18 69 09/10/19 07:16 36.8 C 74 18 188/69 H 91 09/10/19 06:02 72 PG Care Time/CCT Total # of Minutes Spent Total Time Spent with Patient: Total time spent is greater than 50% in coordination of care (as documented) at patient's floor/unit and/or counseling patient: Coding Level of Care Code 90383 Subseq Hosp Care Lvl 2 Diagnoses Acute on chronic blood loss anemia D62 ESRD (end stage renal disease) on dialysis N18.6; Z99.2 Hiatal hernia with GERD without esophagitis K44.9; K21.9 GAVE (gastric antral vascular ectasia) K31.819 Hypertension I10 Hypertension type: unspecified Peripheral vascular disease I73.9 Pulmonary hypertension I27.20 Hyperlipidemia LDL goal <70 E78.5 Diabetes mellitus, type 2 E11.9 Diabetic peripheral neuropathy E11.42 COPD (chronic obstructive pulmonary disease) J44.9 COPD type: unspecified COPD Obstructive sleep apnea G47.33 Hypothyroidism E03.9 Hypothyroidism type: unspecified Vitamin D deficiency E55.9 Arthritis M19.90 (1) Hypertension Hypertension type: unspecified Qualified Code(s): I10 - Essential (primary) hypertension (2) COPD (chronic obstructive pulmonary disease) COPD type: unspecified COPD Qualified Code(s): J44.9 - Chronic obstructive pulmonary disease, unspecified (3) Hypothyroidism Hypothyroidism type: unspecified Qualified Code(s): E03.9 - Hypothyroidism, unspecified
--- NOTE | 2019-09-10 10:41 | Electrocardiogram Report ---
Test Reason : Blood Pressure : / mmHG Vent. Rate : 064 BPM Atrial Rate : 064 BPM P-R Int : 210 ms QRS Dur : 162 ms QT Int : 468 ms P-R-T Axes : 083 096 -74 degrees QTc Int : 482 ms Sinus rhythm with 1st degree A-V block Right bundle branch block T wave abnormality, consider inferolateral ischemia Abnormal ECG When compared with ECG of 08-SEP-2019 12:57, (unconfirmed) No significant change Confirmed by Gus Mcclellan ([id number]) on 09/10/2019 10:41:25 AM Referred By: REFERRED SELF Confirmed By:Gus Mcclellan
[2019-09-10] MEDS: FOLIC ACID 1 MG TAB PO SCH (11:48)
[2019-09-10] MEDS: NEPHROCAPS PO SCH (11:49)
[2019-09-10] MEDS: lisinopriL 40 MG TAB PO SCH (11:52)
[2019-09-10] MEDS: DOXAZOSIN MESYLATE 1 MG TAB PO SCH (12:00)
--- NOTE | 2019-09-10 12:45 | Anesthesiology Consultation ---
Date of Service September 10, 2019 The patient underwent dialysis on 09/09/19. Assessment & Plan (1) Encounter for pre-operative examination: Chart Review Chart Review: Acceptable Risk for Surgery (patient is elevated risk, but surgery is low risk and necessary) and Patient NOT seen in Pre Admission Testing Consults Requested none History Surgery Operation Date: 09/10/19 13:00 Proposed Procedures p Esophagogastroduodenoscopy with APC Dr Christopher White Height/Weight Height: 6 ft Weight: 94.8 kg Allergies Allergy/AdvReac Type Severity Reaction Status Date / Time sucralfate [From Carafate] Allergy Mild upset Verified 09/08/19 13:05 dialysis tramadol AdvReac Severe disorented Verified 09/08/19 13:05 ,falling down metformin AdvReac Intermediate CONFUSION Verified 09/08/19 13:05 Medications Home Medications Medication Instructions Recorded Confirmed Last Taken tamsulosin 0.4 mg PO HS #90 cap 01/02/19 09/08/19 08/13/19 docusate sodium 100 mg capsule 200 mg PO QAM #30 cap 01/19/19 09/08/19 08/14/19 gabapentin 100 mg capsule 200 mg PO HS #60 cap 02/04/19 09/08/19 08/13/19 levothyroxine 200 mcg PO QAM 02/15/19 09/08/19 08/14/19 insulin detemir U-100 100 unit/mL 15 units SUBCUT HS ml 03/25/19 09/08/19 08/13/19 subcutaneous solution rosuvastatin 20 mg PO QPM 04/07/19 09/08/19 08/13/19 pantoprazole 40 mg PO BID 04/25/19 09/08/19 08/14/19 Renal Caps 1 cap PO QDL 05/23/19 09/08/19 08/13/19 calcium acetate(phosphat bind) 667 2,001 mg PO TIDM tab 06/02/19 09/08/19 08/14/19 mg tablet insulin aspart U-100 [Novolog 0 sliding scale dose SUBCUT 06/06/19 09/08/19 08/14/19 U-100 Insulin aspart] USEASDIRECTD labetalol 200 mg PO BID 06/06/19 09/08/19 08/14/19 amlodipine 10 mg PO HS 06/13/19 09/08/19 08/13/19 doxazosin [Cardura] 1 mg PO DAILY 06/23/19 09/08/19 08/13/19 folic acid 1 mg tablet 1 mg PO DAILY 07/10/19 09/08/19 07/19/19 bumetanide 1 mg tablet 2 mg PO BID #120 tab 07/16/19 09/08/19 08/14/19 lisinopril 40 mg PO DAILY 07/23/19 09/08/19 08/13/19 cyanocobalamin (vitamin B-12) 1,000 mcg PO HS 08/14/19 09/08/19 08/13/19 [Vitamin B-12] ferrous sulfate 325 mg PO BID 08/14/19 09/08/19 08/14/19 triamcinolone acetonide [Triderm] 1 applic TOPICAL BID 08/14/19 09/08/19 08/13/19 levothyroxine 100 mcg PO QAM 08/26/19 09/08/19 Unknown hydralazine 25 mg tablet 50 mg PO TIDM #90 tab 08/28/19 09/08/19 Unknown Active Medications Generic Name Dose Route Start Last Admin Trade Name Freq PRN Reason Stop Dose Admin Acetaminophen 650 mg 09/08/19 17:54 09/10/19 01:10 Tylenol PO 10/08/19 17:53 650 mg Q4H PRN Administration Moderate Pain Amlodipine Besylate 10 mg 09/08/19 21:00 09/09/19 23:49 Norvasc PO 10/08/19 20:59 Not Given HS SHANTA Bumetanide 2 mg 09/08/19 19:00 09/10/19 08:50 Bumex PO 10/08/19 18:59 2 mg BID17 SHANTA Administration Calcium Acetate 2,001 mg 09/08/19 18:30 09/10/19 11:55 Phoslo PO 10/08/19 18:29 Not Given TIDM SHANTA Cyanocobalamin 1,000 mcg 09/08/19 21:00 09/09/19 23:49 Vitamin B-12 PO 10/08/19 20:59 Not Given HS SHANTA Docusate Sodium 200 mg 09/09/19 09:00 09/10/19 08:53 Colace PO 10/09/19 08:59 200 mg QAM SHANTA Administration Doxazosin Mesylate 1 mg 09/09/19 11:30 09/10/19 12:00 Cardura PO 10/09/19 11:29 1 mg QDL SHANTA Administration Ferrous Sulfate 325 mg 09/08/19 21:00 09/10/19 08:50 Feosol PO 10/08/19 20:59 325 mg BID SHANTA Administration Folic Acid 1 mg 09/09/19 11:30 09/10/19 11:48 Folvite PO 10/09/19 11:29 1 mg QDL SHANTA Administration Gabapentin 200 mg 09/08/19 21:00 09/09/19 23:48 Neurontin PO 10/08/19 20:59 Not Given HS SHANTA Hydralazine HCl 50 mg 09/08/19 17:54 09/10/19 11:53 Apresoline PO 10/08/19 17:53 50 mg TIDM SHANTA Administration Insulin Aspart 0 units 09/08/19 17:54 09/10/19 11:54 Novolog Flexpen SC 10/08/19 17:53 Not Given ACHS SHANTA Insulin Detemir 15 units 09/08/19 21:00 09/09/19 23:48 Levemir Flextouch SC 10/08/19 20:59 Not Given HS SHANTA Labetalol HCl 200 mg 09/08/19 21:00 09/10/19 08:51 Normodyne PO 10/08/19 20:59 200 mg BID SHANTA Administration Levothyroxine Sodium 100 mcg 09/09/19 06:30 09/10/19 05:37 Synthroid PO 10/09/19 06:29 100 mcg DAILYBB SHANTA Administration Levothyroxine Sodium 200 mcg 09/09/19 06:30 09/10/19 05:37 Synthroid PO 10/09/19 06:29 200 mcg DAILYBB SHANTA Administration Lisinopril 40 mg 09/09/19 11:30 09/10/19 11:52 Zestril PO 10/09/19 11:29 40 mg QDL SHANTA Administration Pantoprazole Sodium 40 mg 09/08/19 21:00 09/10/19 08:52 Protonix PO 10/08/19 20:59 40 mg BID SHANTA Administration Rosuvastatin Calcium 20 mg 09/08/19 21:00 04/08/20 23:48 Crestor PO 10/08/19 20:59 Not Given QPM SHANTA Tamsulosin HCl 0.4 mg 09/08/19 21:00 09/09/19 23:48 Flomax PO 10/08/19 20:59 Not Given HS SHANTA Triamcinolone Acetonide 1 appln 09/08/19 21:00 09/10/19 08:53 Kenalog 0.1% TOP 10/08/19 20:59 1 appln BID SHANTA Administration Vitamin B Complex/Folic Acid 1 cap 09/09/19 11:30 09/10/19 11:49 Nephrocaps PO 10/09/19 11:29 1 cap QDL SHANTA Administration Past Medical History Medical History Acute on chronic blood loss anemia Anemia of renal disease Anxiety and depression Arthritis Asthma AVF (arteriovenous fistula) LEFT ARM BPH (benign prostatic hyperplasia) CAD (coronary artery disease) Chronic diastolic congestive heart failure Colon, diverticulosis COPD (chronic obstructive pulmonary disease) Diabetes mellitus, type 2 Diabetic peripheral neuropathy Dialysis patient [facility] SATURDAY, SATURDAY, SATURDAY 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) (Acute) GERD (gastroesophageal reflux disease) GI bleed (Inactive) Hearing difficulty Hyperlipidemia LDL goal <70 Hypertension (Acute) Hypnic jerks Hypothyroidism IgG monoclonal gammopathy Memory loss Mitral regurgitation Obstructive sleep apnea uses oxygen 2 l nc at hs Occlusion and stenosis of unspecified carotid artery On home oxygen therapy WEARS O2 AT 2L HS Osteoporosis Pulmonary hypertension Secondary hyperparathyroidism of renal origin Uncontrolled daytime somnolence sleeps thru day and cant sleep at night Vitamin D deficiency Past Family History Family History Unknown Myocardial infarction Mother Diabetes Breast cancer late 70s Hypertension Gallbladder disease Father Diabetes Hypertension Brother Diabetes Kidney disease Hypertension Denies family history of Ovarian cancer Prostate cancer Lung cancer Colorectal cancer Past Surgical History Surgical History H/O cardiac catheterization many years ago - over 10 years no stents follow with trung (NO STENTS) H/O hemorrhoidectomy History of colonoscopy History of esophagogastroduodenoscopy (EGD) MULTIPLE History of tooth extraction Hx of cholecystectomy Social History Smoking Status: Former smoker tobacco type: cigarettes Do You Dip or Chew Tobacco: No Hx Alcohol Use: No Hx Substance Use: No substance use type: does not use Physical Exam Vital Signs Last Vital Signs Temp 36.4 C L 09/10/19 11:03 Pulse 70 09/10/19 11:03 Resp 18 09/10/19 11:03 BP 183/71 H 09/10/19 11:03 Pulse Ox 95 09/10/19 11:03 Testing Laboratory Results 09/10/19 06:55 09/10/19 06:55 Blood Type B Positive 09/08/19 13:59 Antibody Screen NEGATIVE 09/08/19 13:59 09/10/19 09/10/19 11:34 07:41 POC Glucose 153 H 147 H Electrocardiogram Date: 09/09/19 Findings: + RBBB SR with 1st degree AV block, rate 64, T wave inversion inferolateral Chest X-Ray Date: 09/08/19 XR chest 1V portable CLINICAL HISTORY: Shortness of breath. COMPARISON STUDY: Chest radiograph August 14, 2019. FINDINGS: Moderate cardiomegaly is noted. There is a possible small left pleural effusion. Pulmonary vascular congestion is noted. There are bibasilar opacities. No pneumothorax is present. IMPRESSION: 1. Bibasilar opacities which may reflect an infectious process such as pneumonia or atelectasis. 2. Cardiomegaly with pulmonary vascular congestion. ACT 112: Negative or not required by law. Electronically signed by: Marcus Salazar M.D. 09/08/2019 6:45 PM Dictated: 09/08/191841 Transcribed: 09/08/191841 Echocardiogram Date: 04/20/18 EF: 65-70 LV Function: normal Other Findings: + atrial enlargement, + RVH (R ventricle is dilated and hypokinetic) and + diastolic dysfunction (grade 2) Valvular Disease: + MR (mild to moderate) elevated PA pressure
[2019-09-10] MEDS ORDERED: SODIUM CHLORIDE 0.9% 1000ML 1,000 ML IV SCH (13:45)
--- NOTE | 2019-09-10 13:46 | History & Physical Report ---
Date of Service September 10, 2019 History of Present Illness Chief Complaint: anemia, GAVE Primary Care Provider: Mahsa Wang DO For EGD Allergies Allergy/AdvReac Type Severity Reaction Status Date / Time sucralfate [From Carafate] Allergy Mild upset Verified 09/08/19 13:05 dialysis tramadol AdvReac Severe disorented Verified 09/08/19 13:05 ,falling down metformin AdvReac Intermediate CONFUSION Verified 09/08/19 13:05 Home Medications Home Medications Medication Instructions Recorded Confirmed Type tamsulosin 0.4 mg PO HS #90 cap 01/02/19 09/08/19 Rx docusate sodium 100 mg capsule 200 mg PO QAM #30 cap 01/19/19 09/08/19 Rx gabapentin 100 mg capsule 200 mg PO HS #60 cap 02/04/19 09/08/19 Rx levothyroxine 200 mcg PO QAM 02/15/19 09/08/19 History insulin detemir U-100 100 unit/mL 15 units SUBCUT HS ml 03/25/19 09/08/19 History subcutaneous solution rosuvastatin 20 mg PO QPM 04/07/19 09/08/19 History pantoprazole 40 mg PO BID 04/25/19 09/08/19 History Renal Caps 1 cap PO QDL 05/23/19 09/08/19 History calcium acetate(phosphat bind) 667 2,001 mg PO TIDM tab 06/02/19 09/08/19 History mg tablet insulin aspart U-100 [Novolog 0 sliding scale dose SUBCUT 06/06/19 09/08/19 History U-100 Insulin aspart] USEASDIRECTD labetalol 200 mg PO BID 06/06/19 09/08/19 History amlodipine 10 mg PO HS 06/13/19 09/08/19 History doxazosin [Cardura] 1 mg PO DAILY 06/23/19 09/08/19 History folic acid 1 mg tablet 1 mg PO DAILY 07/10/19 09/08/19 History bumetanide 1 mg tablet 2 mg PO BID #120 tab 07/16/19 09/08/19 Rx lisinopril 40 mg PO DAILY 07/23/19 09/08/19 History cyanocobalamin (vitamin B-12) 1,000 mcg PO HS 08/14/19 09/08/19 History [Vitamin B-12] ferrous sulfate 325 mg PO BID 08/14/19 09/08/19 History triamcinolone acetonide [Triderm] 1 applic TOPICAL BID 08/14/19 09/08/19 History levothyroxine 100 mcg PO QAM 08/26/19 09/08/19 History hydralazine 25 mg tablet 50 mg PO TIDM #90 tab 08/28/19 09/08/19 Rx Past Med/Surg History Medical History Acute on chronic blood loss anemia Anemia of renal disease Anxiety and depression Arthritis Asthma AVF (arteriovenous fistula) LEFT ARM BPH (benign prostatic hyperplasia) CAD (coronary artery disease) Chronic diastolic congestive heart failure Colon, diverticulosis COPD (chronic obstructive pulmonary disease) Diabetes mellitus, type 2 Diabetic peripheral neuropathy Dialysis patient [facility] SATURDAY, SATURDAY, SATURDAY 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) (Acute) GERD (gastroesophageal reflux disease) GI bleed (Inactive) Hearing difficulty Hyperlipidemia LDL goal <70 Hypertension (Acute) Hypnic jerks Hypothyroidism IgG monoclonal gammopathy Memory loss Mitral regurgitation Obstructive sleep apnea uses oxygen 2 l nc at hs Occlusion and stenosis of unspecified carotid artery On home oxygen therapy WEARS O2 AT 2L HS Osteoporosis Pulmonary hypertension Secondary hyperparathyroidism of renal origin Uncontrolled daytime somnolence sleeps thru day and cant sleep at night Vitamin D deficiency Surgical History H/O cardiac catheterization many years ago - over 10 years no stents follow with trung (NO STENTS) H/O hemorrhoidectomy History of colonoscopy History of esophagogastroduodenoscopy (EGD) MULTIPLE History of tooth extraction Hx of cholecystectomy Family History Unknown Myocardial infarction Mother Diabetes Breast cancer late 70s Hypertension Gallbladder disease Father Diabetes Hypertension Brother Diabetes Kidney disease Hypertension Denies family history of Ovarian cancer Prostate cancer Lung cancer Colorectal cancer Social History Preferred Language: Kinyarwanda Communication Ability: Effective Visual Impairment: No Limitations Hearing Ability: Hard of Hearing Cvor Nurse Required: No Beliefs That Will Affect Care: None marital status: Current Living Situation: Spouse current occupational status: disabled current occupation: works part-time at [employer] Feels Safe at Home: Yes Smoking Status: Former smoker Tobacco Type: cigarettes ; Number of Years Since Quit: 25 ; Second Hand Exposure: No ; Hx Alcohol Use: No Hx Substance Use: No Childhood Exposure to Second-Hand Smoke: No Diet Comment: regular caffeine: Yes during the past year weight has: remained stable Dental Care, Regularly: Yes Physical Activity Frequency: Does not Exercise Physical Activity Frequency Comment: limited due physical condition Seatbelt Use: sometimes Sunscreen Use: No Physical Exam Constitutional: + ill appearing Respiratory: normal respiratory effort Cardiovascular: Rate/Rhythm: regular rate and regular rhythm Gastrointestinal (Abdomen): Percussion/Palpation: abdomen soft Skin: + purpura AV fistula Results & Data Vital Signs (Past 12 Hours) Vital Signs Temp Pulse Pulse Pulse Resp BP Pulse Ox 09/10/19 11:03 36.4 C L 70 18 183/71 H 95 09/10/19 07:18 69 09/10/19 07:16 36.8 C 74 18 188/69 H 91 09/10/19 06:02 72
--- NOTE | 2019-09-10 14:59 | GI REPORT ---
Patient Name: Darnell Mcintyre Procedure Date: 09/10/2019 2:08 PM Date of : 1940 Admit Type: Inpatient Age: 79 Gender: Male Attending MD: Mando White MD Procedure: Upper GI endoscopy Providers: Mando White MD Referring MD: Mitchell Rain Do Indications: Suspected upper gastrointestinal bleeding in patient with chronic blood loss Medicines: Propofol total dose 250 mg IV, Lidocaine 80 mg IV Complications: No immediate complications. Estimated Blood Loss: Estimated blood loss was minimal. Procedure: Pre-Anesthesia Assessment: - Prior to the procedure, a History and Physical was performed, and patient medications, allergies and sensitivities were reviewed. The patient's tolerance of previous anesthesia was reviewed. - The risks and benefits of the procedure and the sedation options and risks were discussed with the patient. All questions were answered and informed consent was obtained. After obtaining informed consent, the endoscope was passed under direct vision. Throughout the procedure, the patient's blood pressure, pulse, and oxygen saturations were monitored continuously. The Endoscope was introduced through the mouth, and advanced to the second part of duodenum. The upper GI endoscopy was accomplished without difficulty. The patient tolerated the procedure well. Findings: The Z-line was regular and was found 45 cm from the incisors. The examined esophagus was normal. Red blood was found in the gastric body. Multiple angioectasias with stigmata of recent bleeding were found in the gastric body and in the gastric antrum. Coagulation for hemostasis using argon plasma at 0.3 liters/minute and 20 whitley was successful. Estimated blood loss was minimal. A large non-bleeding diverticulum was found in the second portion of the duodenum. Impression: - Z-line regular, 45 cm from the incisors. - Normal esophagus. - Red blood in the gastric body. - Multiple recently bleeding angioectasias in the stomach. Treated with argon plasma coagulation (APC). - Non-bleeding duodenal diverticulum. - No specimens collected. Recommendation: - Return patient to hospital cheema for ongoing care. Mando White M.D. Mando White MD 09/10/2019 2:59:40 PM This report has been signed electronically. Note Initiated On: 09/10/2019 2:08 PM Number of Addenda: 0 I attest to the content of the Intraoperative Record and orders documented therein, exceptions below {[id number]}
--- NOTE | 2019-09-10 15:07 | Anesthesiology Progress Note ---
Date of Service September 10, 2019 Anesthesia Post Procedure Vital Signs Vital Signs: Temp Pulse Pulse Pulse Pulse Resp BP 09/10/19 14:55 64 18 09/10/19 13:52 36.5 C 68 18 09/10/19 11:03 36.4 C L 70 18 09/10/19 07:18 69 09/10/19 07:16 36.8 C 74 18 09/10/19 06:02 72 09/09/19 19:42 36.7 C 77 18 09/09/19 18:00 71 09/09/19 17:28 67 09/09/19 16:34 36.3 C L 61 18 09/09/19 16:15 36.4 C L 66 09/09/19 16:00 68 174/70 H 09/09/19 15:40 68 165/68 H 09/09/19 15:20 67 164/64 H BP Pulse Ox 09/10/19 14:55 132/68 100 09/10/19 13:52 174/67 H 99 09/10/19 11:03 183/71 H 95 09/10/19 07:18 09/10/19 07:16 188/69 H 91 09/10/19 06:02 09/09/19 19:42 170/90 H 93 09/09/19 18:00 09/09/19 17:28 187/73 H 09/09/19 16:34 196/73 H 91 09/09/19 16:15 176/52 H 09/09/19 16:00 09/09/19 15:40 09/09/19 15:20 Transfer of Care Handoff Completed per policy Notes Mental Status: alert / awake / arousable and participated in evaluation Patient Amnestic to Procedure: Yes Nausea / Vomiting: adequately controlled Pain: adequately controlled Airway Patency, RR, SpO2: stable & adequate BP & HR: stable & adequate Hydration State: stable & adequate Anesthetic Complications: no major complications apparent and Pt Satisfied with anesthetic care
--- NOTE | 2019-09-10 15:22 | Progress Notes ---
DATE: 09/10/2019 The patient received 2 units of blood yesterday while on dialysis and his hemoglobin today is 8.3. He underwent an EGD today and there was some bright red blood and clots in his stomach at the time of endoscopy. The esophagus was normal. 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 In the stomach there were multiple gastric polyps and some ectasias. The patient underwent cautery of these lesions with argon plasma coagulation to address every potential bleeding site that could be found at that time. At the end of the procedure, there was no oozing or active bleeding anywhere in the stomach. The patient tolerated the procedure well. IMPRESSION: The patient has a friable stomach with multiple bleeding sites that were cauterized with argon plasma coagulation. The patient's hemoglobin today is up after transfusion and hopefully it will stay up for a longer period of time since he has been treated.
--- NOTE | 2019-09-10 16:02 | Nephrology Progress Note ---
Date of Service September 10, 2019 Assessment & Plan (1) ESRD (end stage renal disease) on dialysis: IHD TTS at [facility] (4hr 2K 2.5Ca F-200NR EDW 97.5 kg - primary Shear Assembler Dr. Briceno). Non-compliance remains the primary reason for repeat hospital admissions. Further complicating the patient's medical condition is multifactorial anemia with persist UGIB associated with GAVE. Augie has not been present in the outpatient unit to receive appropriate NEMESIO therapy. Metabolic profile, volume status, electrolytes were checked today and found to be appropriate. We will plan to coordinate hemodialysis for tomorrow. APC provided today for GAVE. Repeat H/H scheduled for tomorrow AM. Will recheck a renal panel in the AM and plan next next tomorrow. Then resume TTS schedule on Saturday. (2) Acute on chronic blood loss anemia: (3) GAVE (gastric antral vascular ectasia): (4) Hypertension: (5) Cirrhosis: (6) Anemia of renal disease: Subjective No acute events overnight. Augie was seen and evaluated in his hospital room this morning prior to EGD. He was resting comfortably in bed. Augie was more confused than usual. He was not oriented to place or time. Review of Systems Review of Systems: All systems reviewed & are unremarkable except as noted in HPI & below Physical Exam Physical Exam: Limited due to COVID pandemic. Constitutional: + thin and + frail appearing; no acute distress Eyes: + anicteric sclerae ENMT: Mouth: no oral mucosal abnormality and oral mucous membranes not dry Neck: normal visual inspection and trachea midline Respiratory: no respiratory distress Cardiovascular: Extremities: + AV fistula Skin: + turgor decreased and + ecchymosis Neurologic: Motor/Sensory: no tremor and no asterixis Psychiatric: Orientation: alert and oriented x 3 Results & Data Vital Signs (Past 12 Hours) Vital Signs Temp Pulse Pulse Pulse Resp BP Pulse Ox 09/10/19 15:18 67 18 143/50 H 94 09/10/19 15:08 66 18 119/54 L 92 09/10/19 14:55 64 18 132/68 100 09/10/19 13:52 36.5 C 68 18 174/67 H 99 09/10/19 11:03 36.4 C L 70 18 183/71 H 95 09/10/19 07:18 69 09/10/19 07:16 36.8 C 74 18 188/69 H 91 09/10/19 06:02 72 PG Care Time/CCT Total # of Minutes Spent Total Time Spent with Patient: Total time spent is greater than 50% in coordination of care (as documented) at patient's floor/unit and/or counseling patient: Coding Level of Care Code 90904 Subseq Hosp Care Lvl 3 Diagnoses ESRD (end stage renal disease) on dialysis N18.6; Z99.2 Acute on chronic blood loss anemia D62 GAVE (gastric antral vascular ectasia) K31.819 Hypertension I10 Hypertension type: unspecified Cirrhosis K74.60 Ascites presence: unspecified Hepatic cirrhosis type: unspecified hepatic cirrhosis Anemia of renal disease N18.9; D63.1 (1) Cirrhosis Ascites presence: unspecified Hepatic cirrhosis type: unspecified hepatic cirrhosis Qualified Code(s): K74.60 - Unspecified cirrhosis of liver (2) Hypertension Hypertension type: unspecified Qualified Code(s): I10 - Essential (primary) hypertension
[2019-09-10] MEDS ORDERED: PROPOFOL IV EMULSION 10 MG/ML 20 ML VIAL IV ONE (16:27)
[2019-09-10] MEDS: AMLODIPINE BESYLATE 5 MG TAB PO SCH (21:00)
[2019-09-10] MEDS: CYANOCOBALAMIN 500 MCG TABLET (VITAMIN B-12) PO SCH (21:00)
[2019-09-10] MEDS: GABAPENTIN 100 MG CAP PO SCH (21:01)
[2019-09-10] MEDS: ROSUVASTATIN CALCIUM 20 MG TAB PO SCH (21:01)
[2019-09-10] MEDS: INSULIN DETEMIR FLEXPEN/FLEX TOUCH 100 UNITS/ML 3ML SC SCH (21:02)
[2019-09-10] MEDS: TAMSULOSIN HCL 0.4 MG CAP PO SCH (21:02)
[2019-09-10 22:18] LABS: Appearance Urine Cloudy (Clear); Bacteria Urine Automated Negative (Negative); Bilirubin Urine Negative (Negative); Blood Urine Negative (Negative); Color Urine Yellow; Epithelial Cell Urine Auto >30 /lpf (0-5); Glucose Urine UA 1+ (Negative); Ketones Urine Trace (Negative); Leukocyte Esterase Urine 2+ (Negative); Nitrite Urine Negative (Negative); Protein Urine 3+ (Negative); RBC Urine Automated 0-4 /hpf (0-4); Specific Gravity Urine 1.017 (1.000-1.030); Urobilinogen Urine Negative (Negative); WBC Urine Automated >30 /hpf (0-5); pH Urine 5.5 (4.5-7.5)
[2019-09-11] MEDS: LEVOTHYROXINE SODIUM 100 MCG TABLET PO SCH (05:30)
[2019-09-11] MEDS: LEVOTHYROXINE SODIUM 200 MCG TABLET PO SCH (05:30)
[2019-09-11] MEDS ORDERED: SODIUM CHLORIDE 0.9% 1000ML 1,000 ML IV PRN (07:00)
[2019-09-11 07:23] LABS: Hematocrit (blood only) 23.2 % (42-52); Hemoglobin 7.7 g/dL (14.0-18.0); Mean Corpuscular Hemoglobin 30.2 pg (25-34); Mean Corpuscular Hgb Conc 33.2 g/dL (32-36); RDW Coefficient of Variation 16.6 % (11.5-14.5); RDW Standard Deviation 55.2 fL (36.4-46.3); Red Blood Count 2.55 M/uL (4.7-6.1); White Blood Count 4.26 K/uL (4.8-10.8)
[2019-09-11 07:29] LABS: Mean Platelet Volume 11.4 fL (7.4-10.4); Platelet Count 98 K/uL (130-400)
[2019-09-11 07:51] LABS: Basophils # (auto) 0.02 K/uL (0-0.2); Basophils % (auto) 0.5 %; Eosinophils # (auto) 0.38 K/uL (0-0.5); Eosinophils % (auto) 8.9 %; Immature Granulocytes # (auto) 0.01 K/uL (0.00-0.02); Immature Granulocytes % (auto) 0.2 %; Lymphocytes # (auto) 0.43 K/uL (1.2-3.4); Lymphocytes % (auto) 10.1 %; Monocytes # (auto) 0.61 K/uL (0.11-0.59); Monocytes % (auto) 14.3 %; Neutrophils # (auto) 2.81 K/uL (1.4-6.5)
[2019-09-11 08:46] LABS: Albumin Globulin Ratio 0.8 (0.9-2); Albumin Level 2.6 gm/dl (3.4-5.0); BUN Creatinine Ratio 12.4 (10-20); Bilirubin,Total 0.6 mg/dl (0.2-1); Calcium 8.7 mg/dl (8.5-10.1); Creatinine Clr Calc Pharmacy 9.9 ml/min; Est GFR (African American) 7.4; Est GFR (Non-African American) 6.4; Globulin 3.2 gm/dl (2.5-4.0); Potassium 3.6 mmol/L (3.5-5.1); Total Protein 5.8 gm/dl (6.4-8.2)
[2019-09-11] MEDS: INSULIN ASPART 100 UNITS/ML 3 ML PEN SC SCH ×2 (08:49→12:23)
[2019-09-11] MEDS: CALCIUM ACETATE 667 MG CAP/TAB PO SCH ×2 (08:49→14:27)
[2019-09-11] MEDS: DOCUSATE SODIUM 100 MG CAP PO SCH (08:49)
[2019-09-11] MEDS: BUMETANIDE 1 MG TAB PO SCH (08:50)
[2019-09-11] MEDS: TRIAMCINOLONE ACET 0.1% CR 15 GM TUBE TOP SCH (08:50)
[2019-09-11] MEDS: FERROUS SULFATE 325 MG TAB PO SCH (08:50)
[2019-09-11] MEDS: PANTOprazole 40 MG TAB PO SCH (08:50)
[2019-09-11] MEDS: LABETALOL HCL 200 MG TAB PO SCH (09:52)
[2019-09-11] MEDS: HydrALAZINE TAB 50 MG TAB PO SCH ×2 (09:52→14:28)
--- NOTE | 2019-09-11 13:38 | Discharge Summary ---
Date of Service September 11, 2019 Admission HPI Per Admitting Provider This is a 79-year-old male with past medical history of chronic anemia requiring multiple blood transfusions in the past, history of GI bleed, secondary to gave, end-stage renal disease on dialysis //Sat, HTN, elevated troponin, DM type II, peripheral neuropathy, hiatal hernia with GERD, EFREN on at bedtime O2, BPH, COPD, hypothyroidism who presents to the hospital due to low hemoglobin = 7.4 on serial CBC which he is having trended weekly for chronic anemia. He was called and sent to the ER due to low counts and told he needed transfusion. It was also noted that the patient has missed 3 dialysis sessions in a row. When asked why this was the patient responded with "dumb brain" multiple times. He denies specific complaints but states he has not quite felt himself in the last few days. He has been eating and drinking without any difficulty. Patient reports his weight remains around 220 pounds all the time, denies any recent weight gain, denies swelling in the lower extremities is worse compared to normal. He states he ambulates at home with a walker, and lives with his and 2 sons. No recent falls. Admission Exam Per Admitting Provider General: awake, alert, no apparent distress, + overweight + appears fatigued + hard of hearing Head: Normocephalic, atraumatic ENT: PERRL, EOMI, no pharyngeal exudate, mucous membranes moist Chest: Clear to auscultation, + fine crackles at bases bilaterally, on room air, no adventitious breath sounds Cardiac: Regular rate and rhythm, + TIMO grade 3/6, no JVD, normal peripheral pulses, good capillary refill Abdominal: NABS x 4 quadrants, soft, nondistended, nontender to palpation, no rebound, guarding or tenderness Extremities: Normal inspection, 2+ pitting peripheral edema, multiple small abrasions over allen bilateral, no erythema, calfs nontender to palpation Psych: Normal mood and affect Neuro: AAO x 3, no gross motor deficits, speech is clear, no peripheral sensory deficits Skin: no rash or erythema Principal Diagnosis 1. Acute on chronic blood loss anemia, likely multifactorial 2. GAVE by history, status post EGD with plasma coagulation 3. End-stage renal disease, Saturday schedule. Noncompliance. 4. Type 2 diabetes mellitus 5. Hyperlipidemia 6. COPD 7. Hypothyroidism 8. EFREN, on 2 L nasal cannula at bedtime 9. Hypertension Discharge Exam Constitutional no acute distress Neck trachea midline, no thyromegaly Respiratory normal respiratory effort Auscultation: + diminished lung sounds; no crackles, no rales, no rhonchi and no wheezes Cardiovascular Rate/Rhythm: regular rate and regular rhythm Heart Sounds: normal S1 and normal S2 Gastrointestinal (Abdomen) Inspection/Auscultation: abdomen normal to inspection Percussion/Palpation: abdomen soft; abdomen nontender, no guarding, abdomen not rigid and no hepatosplenomegaly Skin no rashes, warm and dry Discharge Data Allergies Allergy/AdvReac Type Severity Reaction Status Date / Time sucralfate [From Carafate] Allergy Mild upset Verified 09/10/19 14:13 dialysis tramadol AdvReac Severe disorented Verified 09/10/19 14:13 ,falling down metformin AdvReac Intermediate CONFUSION Verified 09/10/19 14:13 Consultations 09/08/19 14:24 ED Decision to Admit Stat 09/08/19 14:29 Consult Nephrology Stat 09/08/19 17:54 Consult Case Management - Discharge Planning Routine Consult Gastroenterology Routine Procedures Performed Operation Date: 09/10/19 13:00 Actual Procedures p EGD Hemostasis - [facility] Course (1) Acute on chronic blood loss anemia: Patient was initially admitted with significant anemia. This was felt to be multifactorial, including the patient's end-stage renal disease, noncompliance with hemodialysis and EPO injections, along with GAVE. Patient was given a single unit of packed red blood cells, require 2 more units. Was 7.7 at time of discharge. Patient was asymptomatic from this. He did undergo EGD on 09/09 and required plasma coagulation of multiple vessels. H&H remained stable above 7. Patient did not have any symptoms from this including bleeding, chest pain, shortness of breath. (2) ESRD (end stage renal disease) on dialysis: Last hemodialysis session was yesterday. Patient is usually Saturday, , Saturday schedule when he is compliant. Patient's last hemodialysis session was on 09/10. He was told by nephrology to continue his Saturday, , Saturday schedule. His next, dialysis session should therefore be due tomorrow. (3) Hiatal hernia with GERD without esophagitis: -Continue PPI bid (4) GAVE (gastric antral vascular ectasia): Patient is currently on PPI twice daily. (5) Hypertension: -Continue amlodipine 10 mg at bedtime, Bumex 2 mg BID, doxazosin 1 mg daily, hydralazine 50 mg TID, labetalol 200 mcg daily, lisinopril 40 mg daily -BP slightly elevated upon arrival, likely secondary to volume overload in the setting of no dialysis for 1 week (6) Peripheral vascular disease: hx noted (7) Pulmonary hypertension: -Noted (8) Hyperlipidemia LDL goal <70: -Continue rosuvastatin 20 mg every afternoon (9) Diabetes mellitus, type 2: -Can continue Levemir 15 units at bedtime, with ISS with Accu-Cheks ACHS (10) Diabetic peripheral neuropathy: -History of such, patient reports no worsening numbness or tingling currently. (11) COPD (chronic obstructive pulmonary disease): -Stable, no signs of acute exacerbation, history of pneumonia noted on CXR however patient afebrile without elevated white count, -If worsening shortness of breath consider checking CXR with volume overload from missing dialysis recently (12) Obstructive sleep apnea: -Continue with 2 L O2 via NC at bedtime (13) Hypothyroidism: -Continue levothyroxine 300 mcg daily (14) Vitamin D deficiency: -Continue calcium supplementation, renal caps (15) Arthritis: -Chronic, stable DVT ppx: - teds, scd CODE: Full code I did have a conversation with Isabel over the phone at [phone] both the day prior and today for discharge. Compliance with hemodialysis once again stressed to the patient and his . As she seems to understand that this is important. Once again, they have refused end-of-life care including palliative and hospice. Total Time Total Time Spent Total Time Spent (In Minutes): 45 minutes Discharge Plan Discharge Items Patient Disposition: Home - Home Health Services Reason For Visit: ESRD Discharge Diagnosis: 1. Acute on chronic blood loss anemia, likely multifactorial 2. GAVE by history, status post EGD with plasma coagulation 3. End-stage renal disease, Saturday schedule. Noncompliance. 4. Type 2 diabetes mellitus 5. Hyperlipidemia 6. COPD 7. Hypothyroidism 8. EFREN, on 2 L nasal cannula at bedtime 9. Hypertension Activity: Resume your previous activity Lifting: Gradually increase as tolerated Bathing: No limitations Sexual Activity: When tolerated Driving/Machine Use: No limitations Non-emergency contact: Primary Care Provider and Baggage Security Checker Call non-emergency contact if: your symptoms worsen and your temperature is above 101 Follow-up/Referrals: Mahsa Wang DO [Primary Care Provider] - Merlyn Briceno MD [Physician] - (call for appointment. Follow at hemodialysis on 09/11.) Diet: Dialysis Renal Addtl Attending Provider Instructions: Please ensure compliance with hemodialysis in future as this will reduce need for ongoing hospital stays. Pending Studies at Discharge: No Stand-Alone Forms: My Xetal, Smoking Cessation Medications and DC Order Prescriptions: Continued gabapentin 100 mg capsule 200 mg PO HS Qty: 60 RF: 5 calcium acetate(phosphat bind) 667 mg tablet 2,001 mg PO TIDM RF: 0 bumetanide 1 mg tablet 2 mg PO BID Qty: 120 RF: 2 hydralazine 25 mg tablet 50 mg PO TIDM Qty: 90 RF: 5 folic acid 1 mg tablet 1 mg PO DAILY RF: 0 docusate sodium 100 mg capsule 200 mg PO QAM Qty: 30 RF: 0 Levemir U-100 Insulin 100 unit/mL solution 15 units subcut HS RF: 0 Renal Caps 1 mg Capsule 1 cap PO QDL RF: 0 amlodipine 10 mg tablet 10 mg PO HS RF: 0 doxazosin [Cardura] 1 mg tablet 1 mg PO DAILY RF: 0 levothyroxine 100 mcg Tablet 100 mcg PO QAM RF: 0 tamsulosin 0.4 mg capsule 0.4 mg PO HS Qty: 90 RF: 1 levothyroxine 200 mcg tablet 200 mcg PO QAM RF: 0 rosuvastatin 20 mg tablet 20 mg PO QPM RF: 0 pantoprazole 40 mg tablet,delayed release (DR/EC) 40 mg PO BID RF: 0 labetalol 200 mg Tablet 200 mg PO BID RF: 0 insulin aspart U-100 [Novolog U-100 Insulin aspart] 100 unit/mL solution 0 sliding scale dose subcut USEASDIRECTD RF: 0 lisinopril 40 mg tablet 40 mg PO DAILY RF: 0 cyanocobalamin (vitamin B-12) [Vitamin B-12] 1,000 mcg Tablet 1,000 mcg PO HS RF: 0 ferrous sulfate 325 mg (65 mg iron) tablet,delayed release (DR/EC) 325 mg PO BID RF: 0 triamcinolone acetonide [Triderm] 0.1 % cream 1 applic TOPICAL BID RF: 0 Discharge Orders: Discharge Order (Routine); Ordered 09/11/19 Ordered By: Mitchell Rain Admission Data Admit Date/Time: 09/08/19 14:29 Attending Provider: Mitchell Rain Admit Provider: Raina Funes Primary Care Provider: Mahsa Wang Other Providers: Raina Funes ; Jama Gracia ; Mando White Coding Level of Care Code D/C Day Management >30 mins Diagnoses Acute on chronic blood loss anemia D62 ESRD (end stage renal disease) on dialysis N18.6; Z99.2 Hiatal hernia with GERD without esophagitis K44.9; K21.9 GAVE (gastric antral vascular ectasia) K31.819 Hypertension I10 Hypertension type: unspecified Peripheral vascular disease I73.9 Pulmonary hypertension I27.20 Hyperlipidemia LDL goal <70 E78.5 Diabetes mellitus, type 2 E11.9 Diabetic peripheral neuropathy E11.42 COPD (chronic obstructive pulmonary disease) J44.9 COPD type: unspecified COPD Obstructive sleep apnea G47.33 Hypothyroidism E03.9 Hypothyroidism type: unspecified Vitamin D deficiency E55.9 Arthritis M19.90
--- NOTE | 2019-09-11 14:01 | Nephrology Progress Note ---
Date of Service September 11, 2019 Assessment & Plan (1) ESRD (end stage renal disease) on dialysis: IHD TTS at [facility] (4hr 2K 2.5Ca F-200NR EDW 97.5 kg - primary Drilling And [employer] Superintendent Dr. Briceno). Non-compliance remains the primary reason for repeat hospital admissions. Further complicating the patient's medical condition is multifactorial anemia with persist UGIB associated with GAVE. Augie has not been present in the outpatient unit to receive NEMESIO therapy. A 3.5 hour inpatient HD treatment was coordinated today for additional UF and clearance. 2 L UF provided. Weight prior to treatment was 96.8 kg. Augie appears to be losing weight. AVF was functioning well. Access pressures normal. Qb at goal. Adequate blood pressure was seen throughout treatment. Resume outpatient TTS schedule post discharge. (2) Acute on chronic blood loss anemia: (3) GAVE (gastric antral vascular ectasia): (4) Hypertension: (5) Cirrhosis: (6) Anemia of renal disease: Subjective Augie was seen and evaluated during hemodialysis this morning. He was tolerating treatment well. He was less confused. Qb adequate. BP acceptable. Augie plans to attend outpatient HD tomorrow at [place]. He denies any barriers to making it to dialysis. Review of Systems Review of Systems: All systems reviewed & are unremarkable except as noted in HPI & below Physical Exam Constitutional: + thin and + frail appearing; no acute distress Eyes: + anicteric sclerae ENMT: Mouth: no oral mucosal abnormality and oral mucous membranes not dry Neck: normal visual inspection and trachea midline Respiratory: no respiratory distress Auscultation: + rales Cardiovascular: Heart Sounds: normal S1, normal S2 and + murmur Vessels: + JVD Extremities: + AV fistula Skin: + turgor decreased and + ecchymosis Neurologic: Motor/Sensory: no tremor and no asterixis Psychiatric: Orientation: alert and oriented x 3 Results & Data Vital Signs (Past 12 Hours) Vital Signs Temp Pulse Pulse Pulse Resp BP BP 09/11/19 13:45 36.6 C 65 148/67 H 09/11/19 13:17 65 165/69 H 09/11/19 12:58 68 161/65 H 09/11/19 12:40 68 170/67 H 09/11/19 12:20 62 168/68 H 09/11/19 12:00 58 L 171/68 H 09/11/19 11:40 66 170/57 H 09/11/19 11:20 62 141/74 H 09/11/19 11:00 62 161/63 H 09/11/19 10:40 62 141/75 H 09/11/19 10:16 61 158/62 H 09/11/19 10:10 36.5 C 65 09/11/19 07:58 36.6 C 66 18 172/77 H 09/11/19 03:13 36.3 C L 59 L 20 157/68 H Pulse Ox 09/11/19 13:45 09/11/19 13:17 09/11/19 12:58 09/11/19 12:40 09/11/19 12:20 09/11/19 12:00 09/11/19 11:40 09/11/19 11:20 09/11/19 11:00 09/11/19 10:40 09/11/19 10:16 09/11/19 10:10 09/11/19 07:58 93 09/11/19 03:13 94 Laboratory Results Laboratory Results - last 24 hr 09/10/19 09/10/19 09/10/19 16:53 20:55 22:05 WBC RBC Hgb Hct MCV MCH MCHC RDW Std Deviation RDW Coeff of Jose C Plt Count MPV Immature Gran % (Auto) Neut % (Auto) Lymph % (Auto) Mcdowell % (Auto) Eos % (Auto) Baso % (Auto) Immature Gran # (Auto) Neut # (Auto) Lymph # (Auto) Mcdowell # (Auto) Eos # (Auto) Baso # (Auto) Sodium Potassium Chloride Carbon Dioxide Anion Gap BUN Creatinine Est Cr Clr Drug Dosing Est GFR ( Amer) Est GFR (Non-Af Amer) BUN/Creatinine Ratio Glucose POC Glucose 137 H 167 H Calcium Total Bilirubin AST ALT Alkaline Phosphatase Total Protein Albumin Globulin Albumin/Globulin Ratio Urine Color Yellow Urine Appearance Cloudy A Urine pH 5.5 Ur Specific Yoder 1.017 Urine Protein 3+ H Urine Glucose (UA) 1+ H Urine Ketones Trace H Urine Blood Negative Urine Nitrite Negative Urine Bilirubin Negative Urine Urobilinogen Negative Ur Leukocyte Esterase 2+ H Urine WBC (Auto) >30 H Urine RBC (Auto) 0-4 U Hyaline Cast (Auto) 10-30 H U Epithel Cells (Auto) >30 H Urine Bacteria (Auto) Negative Granular Casts 5-10 H Urine Yeast Not Reportable Stool Occult Bld Scrn 09/10/19 09/11/19 09/11/19 22:50 06:51 06:51 WBC 4.26 L RBC 2.55 L Hgb 7.7 L Hct 23.2 L MCV 91.0 MCH 30.2 MCHC 33.2 RDW Std Deviation 55.2 H RDW Coeff of Jose C 16.6 H Plt Count 98 L MPV 11.4 H Immature Gran % (Auto) 0.2 Neut % (Auto) 66.0 Lymph % (Auto) 10.1 Mcdowell % (Auto) 14.3 Eos % (Auto) 8.9 Baso % (Auto) 0.5 Immature Gran # (Auto) 0.01 Neut # (Auto) 2.81 Lymph # (Auto) 0.43 L Mcdowell # (Auto) 0.61 H Eos # (Auto) 0.38 Baso # (Auto) 0.02 Sodium 143 Potassium 3.6 Chloride 109 H Carbon Dioxide 25 Anion Gap 9.0 BUN 92 H Creatinine 7.43 H* D Est Cr Clr Drug Dosing 9.9 Est GFR ( Amer) 7.4 Est GFR (Non-Af Amer) 6.4 BUN/Creatinine Ratio 12.4 Glucose 115 H POC Glucose Calcium 8.7 Total Bilirubin 0.6 AST 16 ALT 22 Alkaline Phosphatase 102 Total Protein 5.8 L Albumin 2.6 L Globulin 3.2 Albumin/Globulin Ratio 0.8 L Urine Color Urine Appearance Urine pH Ur Specific Yoder Urine Protein Urine Glucose (UA) Urine Ketones Urine Blood Urine Nitrite Urine Bilirubin Urine Urobilinogen Ur Leukocyte Esterase Urine WBC (Auto) Urine RBC (Auto) U Hyaline Cast (Auto) U Epithel Cells (Auto) Urine Bacteria (Auto) Granular Casts Urine Yeast Stool Occult Bld Scrn Positive A 09/11/19 09/11/19 07:49 11:55 WBC RBC Hgb Hct MCV MCH MCHC RDW Std Deviation RDW Coeff of Jose C Plt Count MPV Immature Gran % (Auto) Neut % (Auto) Lymph % (Auto) Mcdowell % (Auto) Eos % (Auto) Baso % (Auto) Immature Gran # (Auto) Neut # (Auto) Lymph # (Auto) Mcdowell # (Auto) Eos # (Auto) Baso # (Auto) Sodium Potassium Chloride Carbon Dioxide Anion Gap BUN Creatinine Est Cr Clr Drug Dosing Est GFR ( Amer) Est GFR (Non-Af Amer) BUN/Creatinine Ratio Glucose POC Glucose 124 H 137 H Calcium Total Bilirubin AST ALT Alkaline Phosphatase Total Protein Albumin Globulin Albumin/Globulin Ratio Urine Color Urine Appearance Urine pH Ur Specific Yoder Urine Protein Urine Glucose (UA) Urine Ketones Urine Blood Urine Nitrite Urine Bilirubin Urine Urobilinogen Ur Leukocyte Esterase Urine WBC (Auto) Urine RBC (Auto) U Hyaline Cast (Auto) U Epithel Cells (Auto) Urine Bacteria (Auto) Granular Casts Urine Yeast Stool Occult Bld Scrn PG Care Time/CCT Total # of Minutes Spent Total Time Spent with Patient: Total time spent is greater than 50% in coordination of care (as documented) at patient's floor/unit and/or counseling patient: Coding Level of Care Code 71363 Subseq Hosp Care Lvl 3 Diagnoses ESRD (end stage renal disease) on dialysis N18.6; Z99.2 Acute on chronic blood loss anemia D62 GAVE (gastric antral vascular ectasia) K31.819 Hypertension I10 Hypertension type: unspecified Cirrhosis K74.60 Ascites presence: unspecified Hepatic cirrhosis type: unspecified hepatic cirrhosis Anemia of renal disease N18.9; D63.1 (1) Hypertension Hypertension type: unspecified Qualified Code(s): I10 - Essential (primary) hypertension (2) Cirrhosis Ascites presence: unspecified Hepatic cirrhosis type: unspecified hepatic cirrhosis Qualified Code(s): K74.60 - Unspecified cirrhosis of liver
[2019-09-11] MEDS: FOLIC ACID 1 MG TAB PO SCH (14:27)
[2019-09-11] MEDS: NEPHROCAPS PO SCH (14:27)
[2019-09-11] MEDS: lisinopriL 40 MG TAB PO SCH (14:27)
[2019-09-11] MEDS: DOXAZOSIN MESYLATE 1 MG TAB PO SCH (14:28)
--- NOTE | 2019-09-11 14:57 | Progress Notes ---
DATE: 09/11/2019 SUBJECTIVE: The patient was dialyzed again today and had a couple liters of fluid removed. He tolerated it well. He is scheduled to be dialyzed again tomorrow in [place] as an outpatient, which is his normal dialysis day. His hemoglobin today is 7.7. He has had no vomiting and no visible blood in his stool. He has no abdominal pain currently. PHYSICAL EXAMINATION: VITAL SIGNS: Show blood pressure 178/77, pulse 66, respirations 18, temperature is 36.6, room air saturation 95%. GENERAL: The patient is sitting at the side of bed, disheveled. He has some ecchymoses on his arms. IMPRESSION: The patient has chronic gastrointestinal blood loss, status post argon plasma coagulation treatment yesterday. Hopefully, this will slow his blood requirement going forward. We will try to keep his hemoglobin above 8. He may need a transfusion next week if it remains below this. If they are able to get more fluid off tomorrow, that may hemoconcentrate his blood and get his hematocrit back up. Hopefully, the patient will be more compliant with his medical plan and reduce his risk for future hospitalizations.
== END 2019-09-11 16:28 | disposition home health service (06) | DRG 377 ==
LOC: ED 12:46 → 2N 14:29 → SUATTDRO 14:29 → 2N 15:14

== ENCOUNTER 2019-11-03 13:02 | Inpatient (IN) ==
[2019-11-03 13:52] LABS: Hematocrit (blood only) 25.6 % (42-52); Hemoglobin 7.9 g/dL (14.0-18.0); Mean Corpuscular Hemoglobin 29.2 pg (25-34); Mean Corpuscular Hgb Conc 30.9 g/dL (32-36); Mean Corpuscular Volume 94.5 fL (80-100); RDW Coefficient of Variation 16.4 % (11.5-14.5); RDW Standard Deviation 56.8 fL (36.4-46.3); Red Blood Count 2.71 M/uL (4.7-6.1); White Blood Count 4.28 K/uL (4.8-10.8)
[2019-11-03 13:58] LABS: Mean Platelet Volume 11.9 fL (7.4-10.4); Platelet Count 93 K/uL (130-400)
--- NOTE | 2019-11-03 14:05 | XRay Report ---
XR chest 1V portable HISTORY: missed dialysis x5, evaluate pulmonary congestion COMPARISON: Chest 09/08/2019. FINDINGS: The heart remains mildly enlarged. No pneumothorax. No pleural effusions. There is mild vee tral pulmonary vascular congestion without overt edema. Left basilar linear densities persist and fav or atelectasis or scarring. No new focal lung consolidations. IMPRESSION: No change in the cardiomegaly and mild central pulmonary vascular congestion without overt edema. ACT 112: Negative or not required by law. Electronically signed by: Jose C Jaeger M.D. 11/03/2019 2:04 PM
[2019-11-03 14:18] LABS: Basophils # (auto) 0.05 K/uL (0-0.2); Basophils % (auto) 1.2 %; Eosinophils # (auto) 0.33 K/uL (0-0.5); Eosinophils % (auto) 7.7 %; Immature Granulocytes # (auto) 0.01 K/uL (0.00-0.02); Immature Granulocytes % (auto) 0.2 %; Lymphocytes % (auto) 9.3 %; Monocytes # (auto) 0.36 K/uL (0.11-0.59); Monocytes % (auto) 8.4 %; Neutrophils # (auto) 3.13 K/uL (1.4-6.5); Neutrophils % (auto) 73.2 %; Poikilocytosis Present
--- NOTE | 2019-11-03 14:19 | Emergency Department Note ---
History of Present Illness General Chief complaint: Swelling/Edema to Extremity Time Seen by Provider: 11/03/19 13:37 Source: patient Mode of arrival: EMS History of Present Illness Provider complaint: Leg swelling Onset (ago): day(s) 4 Location: lower extremity, left and right Severity: moderate Maximum Pain Intensity: 0 Current Pain Intensity: 0 Quality: + other (Swelling) Exacerbated By: + other (Missing dialysis) Associated symptoms: no chest pain, no fever/chills, no nausea/vomiting and no shortness of breath This is a 79-year-old male with end-stage renal disease on dialysis presenting with increased leg swelling for the past 4 days. He states that he usually has swelling when he does not go to dialysis and missed several sessions. The reason he did not go is that he stated that he wanted to take a break. He does urinate on his own and urinates about 2-3 times a day. He states this has not changed recently. His home health nurse came to check on him today and when she try to get him dialyzed they refused to take him as he had missed his prior 5 appointments. Patient states that he does want to be dialyzed today. He has no specific complaints. He denies any chest pain, shortness of breath, abdominal pain, nausea vomiting or diarrhea. He has had no fever or cough or cold symptoms or known exposure to COVID-19. Home Medications Home Medications Medication Instructions Recorded Confirmed Type tamsulosin 0.4 mg PO HS #90 cap 01/02/19 11/03/19 Rx docusate sodium 100 mg capsule 200 mg PO QAM #30 cap 01/19/19 11/03/19 Rx gabapentin 100 mg capsule 200 mg PO HS #60 cap 02/04/19 11/03/19 Rx insulin detemir U-100 100 unit/mL 15 units SUBCUT HS ml 03/25/19 11/03/19 History subcutaneous solution pantoprazole 40 mg PO BID 04/25/19 11/03/19 History Renal Caps 1 cap PO QDL 05/23/19 11/03/19 History calcium acetate(phosphat bind) 667 2,001 mg PO TIDM tab 06/02/19 11/03/19 History mg tablet insulin aspart U-100 [Novolog 0 sliding scale dose SUBCUT QID 06/06/19 11/03/19 History U-100 Insulin aspart] amlodipine 10 mg PO HS 06/13/19 11/03/19 History doxazosin [Cardura] 1 mg PO QDL 06/23/19 11/03/19 History folic acid 1 mg tablet 1 mg PO QDL 07/10/19 11/03/19 History lisinopril 40 mg PO QDL 07/23/19 11/03/19 History cyanocobalamin (vitamin B-12) 1,000 mcg PO HS 08/14/19 11/03/19 History [Vitamin B-12] ferrous sulfate 325 mg (65 mg 325 mg PO BID #60 tab 10/01/19 11/03/19 Rx iron) tablet,delayed release rosuvastatin 20 mg tablet 20 mg PO QPM #90 tab 10/01/19 11/03/19 Rx labetalol 200 mg tablet 200 mg PO BID #180 tab 10/08/19 11/03/19 Rx levothyroxine 150 mcg tablet 150 mcg PO DAILY #90 tab 10/13/19 11/03/19 Rx levothyroxine 200 mcg tablet 200 mcg PO QAM #90 tab 10/13/19 11/03/19 Rx bumetanide 1 mg tablet 2 mg PO BID #120 tab 10/20/19 11/03/19 Rx hydralazine 50 mg PO TIDM 10/20/19 11/03/19 History Allergies Allergy/AdvReac Type Severity Reaction Status Date / Time sucralfate [From Carafate] Allergy Mild upset Verified 11/03/19 16:28 dialysis tramadol AdvReac Severe disorented Verified 11/03/19 16:28 ,falling down metformin AdvReac Intermediate CONFUSION Verified 11/03/19 16:28 Past Med/Surg History Medical History Anemia of renal disease Anxiety and depression Arthritis Asthma AVF (arteriovenous fistula) LEFT ARM BPH (benign prostatic hyperplasia) CAD (coronary artery disease) Chronic diastolic congestive heart failure Colon, diverticulosis 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, with long-term current use of insulin COPD (chronic obstructive pulmonary disease) Diabetes mellitus, type 2 Diabetic peripheral neuropathy Dialysis patient [facility] SATURDAY, SATURDAY, SATURDAY GAVE (gastric antral vascular ectasia) (Acute) GERD (gastroesophageal reflux disease) GI bleed (Inactive) Hearing difficulty Hyperlipidemia LDL goal <70 Hypertension (Acute) Hypnic jerks Hypothyroidism IgG monoclonal gammopathy Memory loss Mitral regurgitation Obstructive sleep apnea uses oxygen 2 l nc at hs Occlusion and stenosis of unspecified carotid artery On home oxygen therapy WEARS O2 AT 2L HS Osteoporosis Pulmonary hypertension Secondary hyperparathyroidism of renal origin Vitamin D deficiency Surgical History H/O cardiac catheterization many years ago - over 10 years no stents follow with trung (NO STENTS) H/O hemorrhoidectomy History of colonoscopy History of esophagogastroduodenoscopy (EGD) MULTIPLE History of tooth extraction Hx of cholecystectomy Family History Unknown Myocardial infarction Mother Diabetes Breast cancer late 70s Hypertension Gallbladder disease Father Diabetes Hypertension Brother Diabetes Kidney disease Hypertension Denies family history of Ovarian cancer Prostate cancer Lung cancer Colorectal cancer Social History (Updated 11/03/19 @ 18:00 by Prashanth Rausch) Preferred Language: Yi Communication Ability: Effective Visual Impairment: No Limitations Hearing Ability: Hard of Hearing Coding Support Specialist Required: No Beliefs That Will Affect Care: None marital status: Current Living Situation: Spouse Current Living Situation Comment: lives with in [facility] current occupational status: disabled current occupation: works part-time at [employer] other: 4 children Feels Safe at Home: Yes Smoking Status: Former smoker Tobacco Type: cigarettes ; packs per day: 0.5 ; Years Smoked: 5 ; Number of Years Since Quit: 25 ; Second Hand Exposure: No ; Hx Alcohol Use: No Hx Substance Use: No Childhood Exposure to Second-Hand Smoke: No Diet Comment: regular caffeine: Yes during the past year weight has: remained stable Dental Care, Regularly: Yes Physical Activity Frequency: Does not Exercise Physical Activity Frequency Comment: limited due physical condition Seatbelt Use: sometimes Sunscreen Use: No Review of Systems See HPI for pertinent positives & negatives. and A total of 10 systems reviewed and were otherwise negative Physical Exam Vital Signs Vital Signs - 24 hr 11/03/19 13:05 11/03/19 13:09 11/03/19 13:10 Temperature 36.4 C L Temperature Source Oral Pulse Rate 55 L 67 Pulse Rate from SpO2 Sensor 55 L Respiratory Rate 15 13 18 Respiratory Effort / Characteristics Non-Labored Spontaneous Respiratory Depth Normal Respiratory Pattern Regular Blood Pressure 162/57 H 162/57 H Blood Pressure Mean 92 88 Blood Pressure Position Lying Pulse Oximetry 90 98 Oxygen Delivery Method Room Air Sepsis Recent Fever Within 48 Hours No Sepsis New/Unexplained Change in Mental Status No Sepsis Action Taken by Nursing No Action Required 11/03/19 13:29 11/03/19 13:30 11/03/19 14:00 Temperature Temperature Source Pulse Rate 54 L 54 L 54 L Pulse Rate from SpO2 Sensor 54 L 54 L 54 L Respiratory Rate 14 15 14 Respiratory Effort / Characteristics Respiratory Depth Respiratory Pattern Blood Pressure 159/57 H 162/58 H Blood Pressure Mean 66 88 Blood Pressure Position Pulse Oximetry 98 98 97 Oxygen Delivery Method Sepsis Recent Fever Within 48 Hours Sepsis New/Unexplained Change in Mental Status Sepsis Action Taken by Nursing 11/03/19 14:01 11/03/19 14:30 11/03/19 15:00 Temperature Temperature Source Pulse Rate 54 L 53 L 56 L Pulse Rate from SpO2 Sensor 57 L 53 L 53 L Respiratory Rate 14 14 14 Respiratory Effort / Characteristics Respiratory Depth Respiratory Pattern Blood Pressure 162/59 H 149/59 H 160/61 H Blood Pressure Mean 102 105 118 Blood Pressure Position Pulse Oximetry 97 97 90 Oxygen Delivery Method Sepsis Recent Fever Within 48 Hours Sepsis New/Unexplained Change in Mental Status Sepsis Action Taken by Nursing 11/03/19 15:43 Temperature Temperature Source Pulse Rate 56 L Pulse Rate from SpO2 Sensor 56 L Respiratory Rate Respiratory Effort / Characteristics Respiratory Depth Respiratory Pattern Blood Pressure 158/56 H Blood Pressure Mean 95 Blood Pressure Position Pulse Oximetry 91 Oxygen Delivery Method Sepsis Recent Fever Within 48 Hours Sepsis New/Unexplained Change in Mental Status Sepsis Action Taken by Nursing Constitutional: Vital signs reviewed. Eyes: Pupils are equal round reactive to light. Conjunctiva are noninjected. ENT: Pharynx is clear without erythema or exudate. Mucous membranes are moist. Neck supple without meningeal signs. Respiratory: Clear to auscultation bilaterally. Breath sounds are equal bilaterally. Cardiovascular: Regular rate and rhythm. No rubs or gallops. GI: Soft, nondistended and nontender. Bowel sounds are present. Musculoskeletal: Bilateral lower extremity edema without erythema or increased warmth or tenderness. AV fistula left forearm with palpable thrill. Integumentary: No cyanosis. or jaundice. Neurological: The patient is awake and alert. No focal deficits. Psychiatric: Normal affect. Not anxious appearing. Procedures Laceration Laceration 1: Site: face Side (If applicable): left Size (cm): 1.2 Description: linear Depth: simple, single layer Local Anesthetic: lidocaine 1% Amount of anesthesia used (mL): 3 Pre-repair: wound explored and irrigated extensively Skin layer closed with: nylon Size (cm): 5-0 Number of sutures: 2 Technique: simple, interrupted Laceration 2: Site: face (Nose) Size (cm): 1 Description: linear Depth: simple, single layer Local Anesthetic: lidocaine 1% Amount of anesthesia used (mL): 2 Pre-repair: wound explored and irrigated extensively Skin layer closed with: nylon Size (cm): 5-0 Number of sutures: 2 Technique: simple, interrupted Course Administered Medications Discontinued Medications Lidocaine HCl (Buffered Lidocaine 1%) 20 ml INFIL NOW ONE Stop: 11/03/19 16:04 Last Admin: 11/03/19 17:12 Dose: 20 ml Documented by: [id number] Medical Decision Making Differential Diagnosis Noncompliance with treatment, hyperkalemia, dysrhythmia, dependent edema, anasarca, CHF Medical Records Attestation: I reviewed the patient's medical records. The patient came to the emergency department October 19 but left before any type of evaluation. Home Medications Current Medication List: was personally reviewed by me Laboratory Data Attestation: I reviewed the patient's lab results. Result diagrams: 11/03/19 13:15 11/03/19 13:15 Lab Results 11/03/19 11/03/19 Range/Units 13:15 13:15 WBC 4.28 L (4.8-10.8) K/uL RBC 2.71 L (4.7-6.1) M/uL Hgb 7.9 L (14.0-18.0) g/dL Hct 25.6 L (42-52) % MCV 94.5 (80-100) fL MCH 29.2 (25-34) pg MCHC 30.9 L (32-36) g/dL RDW Std Deviation 56.8 H (36.4-46.3) fL RDW Coeff of Jose C 16.4 H (11.5-14.5) % Plt Count 93 L (130-400) K/uL MPV 11.9 H (7.4-10.4) fL Immature Gran % (Auto) 0.2 % Neut % (Auto) 73.2 % Lymph % (Auto) 9.3 % [place] % (Auto) 8.4 % Eos % (Auto) 7.7 % Baso % (Auto) 1.2 % Immature Gran # (Auto) 0.01 (0.00-0.02) K/uL Neut # (Auto) 3.13 (1.4-6.5) K/uL Lymph # (Auto) 0.40 L (1.2-3.4) K/uL [place] # (Auto) 0.36 (0.11-0.59) K/uL Eos # (Auto) 0.33 (0-0.5) K/uL Baso # (Auto) 0.05 (0-0.2) K/uL Poikilocytosis Present Sodium 143 (136-145) mmol/L Potassium 5.2 H (3.5-5.1) mmol/L Chloride 107 (98-107) mmol/L Carbon Dioxide 23 (21-32) mmol/L Anion Gap 12.0 H (3-11) BUN 167 H (7-18) mg/dl Creatinine 14.20 H* (0.6-1.4) mg/dl Est Cr Clr Drug Dosing 5.5 ml/min Est GFR ( Amer) 3.4 Est GFR (Non-Af Amer) 2.9 BUN/Creatinine Ratio 11.8 (10-20) Glucose 178 H (70-99) mg/dl Calcium 9.5 (8.5-10.1) mg/dl Total Bilirubin 0.5 (0.2-1) mg/dl AST 6 L (15-37) U/L ALT 19 (12-78) U/L Alkaline Phosphatase 100 (45-117) U/L Total Protein 6.1 L (6.4-8.2) gm/dl Albumin 3.0 L (3.4-5.0) gm/dl Globulin 3.1 (2.5-4.0) gm/dl Albumin/Globulin Ratio 1.0 (0.9-2) Imaging Data Radiologist's Impression: XR chest 1V portable HISTORY: missed dialysis x5, evaluate pulmonary congestion COMPARISON: Chest 09/08/2019. FINDINGS: The heart remains mildly enlarged. No pneumothorax. No pleural effusions. There is mild central pulmonary vascular congestion without overt edema. Left basilar linear densities persist and favor atelectasis or scarring. No new focal lung consolidations. IMPRESSION: No change in the cardiomegaly and mild central pulmonary vascular congestion without overt edema. ACT 112: Negative or not required by law. Electronically signed by: Jose C Jaeger M.D. 11/03/2019 2:04 PM XR wrist RT min 3V routine CLINICAL HISTORY: Fall, right wrist injury COMPARISON STUDY: None. FINDINGS: No acute fracture or dislocation within the right wrist. Mild soft tissue swelling. The scaphoid appears intact. Well-corticated dorsal ossific density there is an old triquetral fracture. Basilar calcifications are noted. Moderate osteoarthritis within the right wrist most pronounced at the STT and radiocarpal joints. IMPRESSION: 1. No acute fracture or dislocation within the right wrist. 2. Moderate osteoarthritis. ACT 112: Negative or not required by law. Electronically signed by: Jose C Jaeger M.D. 11/03/2019 4:[address]AST CT DOSE: 614.27 mGy.cm HISTORY: Fall, facial injury TECHNIQUE: Multiaxial CT images of the head were performed without the use of intravenous contrast. Automated exposure control was utilized for this study. A dose lowering technique was utilized adhering to the principles of ALARA. Comparison: None. Findings: Moderate mucosal thickening within the right maxillary sinus with a small fluid level. There is also polypoid mucosal thickening within the ethmoid air cells, sphenoid sinuses, and left maxillary sinus. This is similar to the prior study. The calvarium and skull base are intact. There is no mass, hematoma, midline shift, acute infarct. White matter hypodensity is nonspecific but suggestive of microvascular ischemic change. The ventricles and sulci demonstrate mild age-related involutional changes. Mild right supraorbital soft tissue swelling. Impression: No acute intracranial abnormality. Mild right supraorbital soft tissue swelling. ACT 112: Negative or not required by law. Electronically signed by: Jose C Jaeger M.D. 11/03/2019 4:52 PM ECG Data Attestation: I personally reviewed and interpreted this ECG as follows: Indication: + other (Hyperkalemia) Rate (beats per minute): 55 Rhythm: + sinus bradycardia ECG Intervals/blocks: + First degree AV block and + Right Bundle branch block ECG ST segments: + T-wave inversions ECG Findings: no PVCs Blood Pressure Blood Pressure Findings: Elevated blood pressure Blood Pressure Disposition: further management by hospitalist BJ Moncada I did evaluate the patient as noted above. He is presenting here because he sk ipped dialysis for the past 5 appointments. He has had increasing swelling in his legs. He otherwise denies any symptoms. IV access was established. I did place an order for continuous cardiac monitoring. The monitor showed sinus bradycardia with a rate of 55. I did order and personally review the patient's 12-lead EKG as described above. He has sinus bradycardia with a first-degree AV block. He has an old right bundle branch block. I did order and personally reviewed the images of the patient's chest x-ray as described above. He has cardiomegaly and vascular congestion. I did order and review the patient's blood work as noted in the electronic medical record. He has pancytopenia. His creatinine is 14. Potassium was 5.2. The case was discussed with Dr. Mcfadden of nephrology. She stated the patient can go home and follow-up tomorrow for dialysis at 10 AM. Plans were made to discharge the patient. He wanted to go home. Unfortunately the patient crawled out of bed and fell on the ground per the nurse. He has lacerations to his forehead and nose is as well as a skin tear to his wrist. He has no gross neurologic deficits. There is no signs of a septal hematoma in his nose or epistaxis. The laceration on his nose measures 1 cm. The laceration on his forehead is diagonal and superficial and measures 1.2 cm. I did order and personally reviewed the images of the patient's right wrist x-ray as described above. There is no fracture or dislocation. I did order a CT of the head. I did review the images myself as well as the radiology report as described above. There is no evidence of acute intracranial abnormality. The patient's lacerations were repaired as above. Dr. Delacruz did perform laceration repair under my direct supervision. I was present for all critical portions of the procedure. Total procedure time for both laceration repairs was 15 minutes. His called in and stated that she was concerned about him coming home as he has been falling frequently at home. The case was discussed with the field nurse case manager. He will be hospitalized for further evaluation and care. The case was discussed with the hospitalist. Resident Physician Supervision Note: I did perform an independent evaluation and examination of this patient as described. I also saw this patient in conjunction with the resident, Dr. Garcia, and guided management for the patient. Impression & Plan Acute hyperkalemia, End-stage renal disease (ESRD), Non-compliance with treatment, Acute head injury, Fall, Face lacerations, Injury of right wrist Discharge Plan Visit Data Chief Complaint: Swelling/Edema to Extremity ED Provider: Justo Rodriguez ED Midlevel Provider: Reji Garcia Discharge Problem: Acute hyperkalemia, End-stage renal disease (ESRD), Non-compliance with treatment, Acute head injury, Fall, Face lacerations, Injury of right wrist Patient Disposition: Being Evaluated by Hospitalist Condition: Fair Discharge Instructions Krames/Other Patient Handouts: Hemodialysis Activity Restrictions/Additional Instructions: GO TO DIAYLSIS APPOINTMENT ON Saturday11/04/2019 at 10:00am. Your visit was discussed with your Kidney doctor, Dr. Briceno, who helped set this appointment up. Do NOT miss this appointment!!!!! If you continue to miss more appointments, this can cause from heart dysfunction caused by elevated Potassium level. You currently have a slightly elevated potassium level checked here in the ED of 5.2. This elevated level is treated with dialysis. Forms Stand Alone Forms: My [facility], Virtual Emergency Department, Important Visit Information Prescriptions Prescriptions: Continued gabapentin 100 mg capsule 200 mg PO HS Qty: 60 RF: 5 calcium acetate(phosphat bind) 667 mg tablet 2,001 mg PO TIDM RF: 0 rosuvastatin 20 mg tablet 20 mg PO QPM Qty: 90 RF: 1 ferrous sulfate 325 mg (65 mg iron) tablet,delayed release (DR/EC) 325 mg PO BID Qty: 60 RF: 5 levothyroxine 200 mcg tablet 200 mcg PO QAM Qty: 90 RF: 1 levothyroxine 150 mcg tablet 150 mcg PO DAILY Qty: 90 RF: 3 bumetanide 1 mg tablet 2 mg PO BID Qty: 120 RF: 5 labetalol 200 mg tablet 200 mg PO BID Qty: 180 RF: 1 folic acid 1 mg tablet 1 mg PO QDL RF: 0 docusate sodium 100 mg capsule 200 mg PO QAM Qty: 30 RF: 0 Levemir U-100 Insulin 100 unit/mL solution 15 units subcut HS RF: 0 Renal Caps 1 mg Capsule 1 cap PO QDL RF: 0 amlodipine 10 mg tablet 10 mg PO HS RF: 0 doxazosin [Cardura] 1 mg tablet 1 mg PO QDL RF: 0 hydralazine 50 mg tablet 50 mg PO TIDM RF: 0 tamsulosin 0.4 mg capsule 0.4 mg PO HS Qty: 90 RF: 1 pantoprazole 40 mg tablet,delayed release (DR/EC) 40 mg PO BID RF: 0 insulin aspart U-100 [Novolog U-100 Insulin aspart] 100 unit/mL solution 0 sliding scale dose subcut QID RF: 0 lisinopril 40 mg tablet 40 mg PO QDL RF: 0 cyanocobalamin (vitamin B-12) [Vitamin B-12] 1,000 mcg Tablet 1,000 mcg PO HS RF: 0 Referrals Referrals: Mahsa Wang DO [Primary Care Provider] - Assessment Assessment: Patient arrived via EMS for missing diaylsis with mildly elevated potassium 5.2. Hgb of 7.9 which appears to be at baseline, without current signs of active bleed. Treatment plan is to have diaylsis tomorrow, 11/04/2019 at 10am. Discharge Problem: Acute head injury Qualifiers: Encounter type: initial encounter Qualified Code(s): S09.90XA - Unspecified injury of head, initial encounter Fall Qualifiers: Encounter type: initial encounter Qualified Code(s): W19.XXXA - Unspecified fall, initial encounter Face lacerations Qualifiers: Encounter type: initial encounter Qualified Code(s): S01.81XA - Laceration without foreign body of other part of head, initial encounter Injury of right wrist Qualifiers: Encounter type: initial encounter Qualified Code(s): S69.91XA - Unspecified injury of right wrist, hand and finger(s), initial encounter
[2019-11-03 14:23] LABS: BUN Creatinine Ratio 11.8 (10-20); Bilirubin,Total 0.5 mg/dl (0.2-1); Calcium 9.5 mg/dl (8.5-10.1); Creatinine Clr Calc Pharmacy 5.5 ml/min; Est GFR (African American) 3.4; Est GFR (Non-African American) 2.9; Globulin 3.1 gm/dl (2.5-4.0); Potassium 5.2 mmol/L (3.5-5.1); Total Protein 6.1 gm/dl (6.4-8.2)
--- NOTE | 2019-11-03 14:50 | Emergency Department Note ---
ED Visit Note My name is Reji Garcia D.O. PGY-2, and I was involved in the care of this patient under attending ED physician Dr. Rodriguez. . Resident Activity Tracking Resident Involvement: Resident Care Provided Care Provided: [facility]
--- NOTE | 2019-11-03 15:09 | Electrocardiogram Report ---
Test Reason : Blood Pressure : / mmHG Vent. Rate : 055 BPM Atrial Rate : 055 BPM P-R Int : 236 ms QRS Dur : 164 ms QT Int : 534 ms P-R-T Axes : 059 100 -23 degrees QTc Int : 510 ms Sinus bradycardia with 1st degree A-V block Right bundle branch block Septal infarct , age undetermined T wave abnormality, consider inferolateral ischemia Abnormal ECG When compared with ECG of 09-SEP-2019 10:41, Septal infarct is now Present Confirmed by Gus Mcclellan ([id number]) on 11/03/2019 3:09:39 PM Referred By: Confirmed By:Gus Mcclellan
[2019-11-03] MEDS ORDERED: XYLOCAINE 1%/SOD BICARB 20 ML VIAL INFIL ONE (16:03)
--- NOTE | 2019-11-03 16:45 | XRay Report ---
XR wrist RT min 3V routine CLINICAL HISTORY: Fall, right wrist injury COMPARISON STUDY: None. FINDINGS: No acute fracture or dislocation within the right wrist. Mild soft tissue swelling. The sca phoid appears intact. Well-corticated dorsal ossific density there is an old triquetral fracture. Bas ilar calcifications are noted. Moderate osteoarthritis within the right wrist most pronounced at the STT and radiocarpal joints. IMPRESSION: 1. No acute fracture or dislocation within the right wrist. 2. Moderate osteoarthritis. ACT 112: Negative or not required by law. Electronically signed by: Jose C Jaeger M.D. 11/03/2019 4:44 PM
--- NOTE | 2019-11-03 16:53 | CT Scan Report ---
HEAD CT NONCONTRAST CT DOSE: 614.27 mGy.cm HISTORY: Fall, facial injury TECHNIQUE: Multiaxial CT images of the head were performed without the use of intravenous contrast. A utomated exposure control was utilized for this study. A dose lowering technique was utilized adheri ng to the principles of ALARA. Comparison: None. Findings: Moderate mucosal thickening within the right maxillary sinus with a small fluid level. Ther e is also polypoid mucosal thickening within the ethmoid air cells, sphenoid sinuses, and left maxill celeste sinus. This is similar to the prior study. The calvarium and skull base are intact. There is no m ass, hematoma, midline shift, acute infarct. White matter hypodensity is nonspecific but suggestive o f microvascular ischemic change. The ventricles and sulci demonstrate mild age-related involutional c hanges. Mild right supraorbital soft tissue swelling. Impression: No acute intracranial abnormality. Mild right supraorbital soft tissue swelling. ACT 112: Negative or not required by law. Electronically signed by: Jose C Jaeger M.D. 11/03/2019 4:52 PM
--- NOTE | 2019-11-03 18:03 | History & Physical Report ---
Date of Service November 03, 2019 Assessment & Plan (1) End-stage renal disease (ESRD): significant noncompliance with outpatient HD sessions. now with marked elevation of BUN and Creatinine. he is sleepy/lethargic and altered consistent with uremia. he has evidence of volume overload and minimally elevated potassium. Dr Briceno from [facility] to consult and dialyze in am. need to assess patient's goals for his care - he reports wanting full code status but missing nearly 2 weeks of HD is dangerous and could lead to his mortality. attempted to call his this evening to discuss his care but line was busy and thus unsuccessful. (2) Volume overload: 2nd to multiple missed HD sessions. does make some urine - continue his bumex. he is comfortable on small amount of NC O2. can dialyze in am per [facility] neph[facility]. (3) Metabolic encephalopathy: 2nd to uremia. also possibly compounded by hepatic encephalopathy as ammonia is mild-moderately elevated. dialysis per nephrology. lactulose x 1 now. probably needs daily lactulose ongoing. (4) Non-compliance with treatment: will address this with him once mentating. need to draw his into the conversation as well. (5) Acute head injury: 2nd to fall while in ER. no acute process on CT head. no pain over the cervical spine; defer on imaging for now. (6) Fall: suspect falls at home are due to altered mental status from multiple metabolic factors including uremia, hepatic encephalopathy, and decompensated hypothyroidism (all of the past several TSHs have been markedly elevated, likely due to noncompliance with thyroid replacement). no bony injury fortunately despite the falls. laceration repair on nose per ER providers. PT, OT while here. (7) Face lacerations: repair per ER providers. uncertain TDaP status - will give adacel x 1 today. (8) Pancytopenia: chronic. due to cirrhosis? decompensated hypothyroidism? other factors? follow w/ daily CBC. (9) Diabetes mellitus, type 2: continue levemir 15 units daily. novolog sliding scale with meals/bedtime. bsgs ac/hs. (10) GAVE (gastric antral vascular ectasia): h/o recurrent GI bleeding from such. s/p EGD multiple times by [facility] for active upper GI bleeding; last 09/2019. H/H lower today from just 1 week ago. repeat CBC am. Type/cross 2 units PRBCs. If Hb drops to 7 or less then give PRBCs on HD. check iron studies to see if IV venofer is needed. continue PPI bid. (11) Hypertension: cont home meds except DEMETRIS for now. (12) Hypothyroidism: decompensated for months. likely contributing to failure to thrive. will not change his synthroid dose. simply resume; reinforce compliance with such. (13) Cirrhosis: based on past CT abd/pelvis. "cardiac" cirrhosis? evidence of hepatic encephalopathy - Rx lactulose. (14) Obstructive sleep apnea: NC O2 HS (15) CAD (coronary artery disease): noted follows with [facility] cardiology continue all usual cardiac meds not a candidate for antiplatelet agents due to recurrent GI bleeding from GAVE (16) BPH (benign prostatic hyperplasia): cont alpha amberly check orthostatics to ensure not having orthostasis from such leading to falls (17) COPD (chronic obstructive pulmonary disease): lungs clear today and w/o wheeze no exacerbation O2 requirement 2nd to volume overload (18) DVT prophylaxis: SCDs chemical means contraindicated due to probable low-grade GI bleeding from GAVE attempted to call ; phone line busy, unable to connect will try again tomorrow place on telemetry History of Present Illness Chief Complaint: missed his dialysis treatments, short of breath, edema Primary Care Provider: Mahsa Wang, 79yo male with ESRD on HD //Sat, h/o noncompliance, COPD, T2DM, h/o GAVE with GI bleeding - presents with worsening edema and recent falls. He has fallen at least twice in the last few days. He states he "gets weak in the knees." Denies syncope. Denies presyncope. Denies loss of appetite. No fevers or chills. Occasional shortness of breath. No chest pain. Patient was altered, sleepy, and is hearing-impaired and thus history was limited from him. ER provider did indeed speak with his and apparently a home health nurse had come to his home to discuss hospice. While being evaluated by the nurse he was advised to come to the hospital because of the recent falls and lethargy. By report he has missed his last 5 hemodialysis sessions. The patient underwent evaluation in the ER and nephrology was contacted. Nephrology arranged for hemodialysis to occur tomorrow morning as an outpatient. While preparing to discharge home from the ER the patient fell while trying to ambulate, striking his head and suffering a small laceration to the bridge of his nose and near the right eye. The ER provider was preparing to suture the nasal laceration during my bedside assessment. When asked why he has missed HD the last 5 sessions he states "I wanted to take a break." Allergies Allergy/AdvReac Type Severity Reaction Status Date / Time sucralfate [From Carafate] Allergy Mild upset Verified 11/03/19 16:28 dialysis tramadol AdvReac Severe disorented Verified 11/03/19 16:28 ,falling down metformin AdvReac Intermediate CONFUSION Verified 11/03/19 16:28 Home Medications Home Medications Medication Instructions Recorded Confirmed Type tamsulosin 0.4 mg PO HS #90 cap 01/02/19 11/03/19 Rx docusate sodium 100 mg capsule 200 mg PO QAM #30 cap 01/19/19 11/03/19 Rx gabapentin 100 mg capsule 200 mg PO HS #60 cap 02/04/19 11/03/19 Rx insulin detemir U-100 100 unit/mL 15 units SUBCUT HS ml 03/25/19 11/03/19 History subcutaneous solution pantoprazole 40 mg PO BID 04/25/19 11/03/19 History Renal Caps 1 cap PO QDL 05/23/19 11/03/19 History calcium acetate(phosphat bind) 667 2,001 mg PO TIDM tab 06/02/19 11/03/19 History mg tablet insulin aspart U-100 [Novolog 0 sliding scale dose SUBCUT QID 06/06/19 11/03/19 History U-100 Insulin aspart] amlodipine 10 mg PO HS 06/13/19 11/03/19 History doxazosin [Cardura] 1 mg PO QDL 06/23/19 11/03/19 History folic acid 1 mg tablet 1 mg PO QDL 07/10/19 11/03/19 History lisinopril 40 mg PO QDL 07/23/19 11/03/19 History cyanocobalamin (vitamin B-12) 1,000 mcg PO HS 08/14/19 11/03/19 History [Vitamin B-12] ferrous sulfate 325 mg (65 mg 325 mg PO BID #60 tab 10/01/19 11/03/19 Rx iron) tablet,delayed release rosuvastatin 20 mg tablet 20 mg PO QPM #90 tab 10/01/19 11/03/19 Rx labetalol 200 mg tablet 200 mg PO BID #180 tab 10/08/19 11/03/19 Rx levothyroxine 150 mcg tablet 150 mcg PO DAILY #90 tab 10/13/19 11/03/19 Rx levothyroxine 200 mcg tablet 200 mcg PO QAM #90 tab 10/13/19 11/03/19 Rx bumetanide 1 mg tablet 2 mg PO BID #120 tab 10/20/19 11/03/19 Rx hydralazine 50 mg PO TIDM 10/20/19 11/03/19 History Past Med/Surg History Medical History Anemia of renal disease Anxiety and depression Arthritis Asthma AVF (arteriovenous fistula) LEFT ARM BPH (benign prostatic hyperplasia) CAD (coronary artery disease) Chronic diastolic congestive heart failure Colon, diverticulosis 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, with long-term current use of insulin COPD (chronic obstructive pulmonary disease) Diabetes mellitus, type 2 Diabetic peripheral neuropathy D[facility] patient [facility] SATURDAY, SATURDAY, SATURDAY GAVE (gastric antral vascular ectasia) (Acute) GERD (gastroesophageal reflux disease) GI bleed (Inactive) Hearing difficulty Hyperlipidemia LDL goal <70 Hypertension (Acute) Hypnic jerks Hypothyroidism IgG monoclonal gammopathy Memory loss Mitral regurgitation Obstructive sleep apnea uses oxygen 2 l nc at hs Occlusion and stenosis of unspecified carotid artery On home oxygen therapy WEARS O2 AT 2L HS Osteoporosis Pulmonary hypertension Secondary hyperparathyroidism of renal origin Vitamin D deficiency Surgical History H/O cardiac catheterization many years ago - over 10 years no stents follow with trung (NO STENTS) H/O hemorrhoidectomy History of colonoscopy History of esophagogastroduodenoscopy (EGD) MULTIPLE History of tooth extraction Hx of cholecystectomy Family History Unknown Myocardial infarction Mother Diabetes Breast cancer late 70s Hypertension Gallbladder disease Father Diabetes Hypertension Brother Diabetes Kidney disease Hypertension Denies family history of Ovarian cancer Prostate cancer Lung cancer Colorectal cancer Social History (Updated 11/03/19 @ 18:00 by Prashanth Rausch) Preferred Language: Monegasque Communication Ability: Effective Visual Impairment: No Limitations Hearing Ability: Hard of Hearing Draw In Hand Required: No Beliefs That Will Affect Care: None marital status: Current Living Situation: Spouse Current Living Situation Comment: lives with in [place] current occupational status: disabled current occupation: works part-time at [employer] other: 4 children Feels Safe at Home: Yes Smoking Status: Former smoker Tobacco Type: cigarettes ; packs per day: 0.5 ; Years Smoked: 5 ; Number of Years Since Quit: 25 ; Second Hand Exposure: No ; Hx Alcohol Use: Yes Hx Substance Use: No Childhood Exposure to Second-Hand Smoke: No Diet Comment: regular caffeine: Yes during the past year weight has: remained stable Dental Care, Regularly: Yes Physical Activity Frequency: Does not Exercise Physical Activity Frequency Comment: limited due physical condition Seatbelt Use: sometimes Sunscreen Use: No Review of Systems Constitutional: no fever, no chills and no anorexia Eyes: no worsening vision Ear, Nose, Mouth, Throat: no dysphagia Respiratory: + dyspnea on exertion; no cough Cardiovascular: + edema; no chest pain Gastrointestinal: + melena; no abdominal pain, no vomiting and no diarrhea/loose stools last few days Genitourinary: + problem reported (voids 3x's each day); no dysuria Musculoskeletal: no back pain and no joint pain Integumentary: no rash Neurologic: + unsteadiness and + generalized weakness Psychiatric: no depression Endocrine: diabetes - <200 Physical Exam Constitutional: + altered mental status (Very sleepy); no acute distress Eyes: + anicteric sclerae and PERRL ENMT: external ear and nose normal, oropharynx normal Neck: trachea midline, no thyromegaly no tenderness over the cervical spine segments bruit - left neck Respiratory: no respiratory distress Auscultation: + rales (Bases b/l ); no wheezes Cardiovascular: Rate/Rhythm: regular rate and regular rhythm Heart Sounds: normal S1, normal S2 and + murmur Vessels: posterior tibial pulses present and dorsalis pedis pulses present; no JVD Extremities: + AV fistula (Left forearm - thrill present; bruit present) Gastrointestinal (Abdomen): normal bowel sounds, soft, nontender, no hepatosplenomegaly Musculoskeletal: no cyanosis or clubbing, extremities motor strength 5/5 Skin: bruises and abrasions with swelling over face from recent fall; tiny laceration near right eye; small laceration over nasal bridge of nose Neurologic: deep tendon reflexes 2+ bilaterally and moves all extremities Motor/Sensory: + asterixis Psychiatric: Orientation: oriented to person; + not alert, + not oriented to place and + not oriented to time Lymphatic: no cervical lymphadenopathy Results & Data Results & Data ([facility]) Vital Signs (Past 12 Hours) Vital Signs Temp Pulse Resp BP Pulse Ox 11/03/19 15:43 56 L 158/56 H 91 11/03/19 15:00 56 L 14 160/61 H 90 11/03/19 14:30 53 L 14 149/59 H 97 11/03/19 14:01 54 L 14 162/59 H 97 11/03/19 14:00 54 L 14 97 11/03/19 13:30 54 L 15 162/58 H 98 11/03/19 13:29 54 L 14 159/57 H 98 11/03/19 13:10 18 162/57 H 98 11/03/19 13:09 67 13 11/03/19 13:05 36.4 C L 55 L 15 162/57 H 90 Laboratory Results Laboratory Results - last 24 hr 11/03/19 11/03/19 13:15 13:15 WBC 4.28 L RBC 2.71 L Hgb 7.9 L Hct 25.6 L MCV 94.5 MCH 29.2 MCHC 30.9 L RDW Std Deviation 56.8 H RDW Coeff of Jose C 16.4 H Plt Count 93 L MPV 11.9 H Immature Gran % (Auto) 0.2 Neut % (Auto) 73.2 Lymph % (Auto) 9.3 [place] % (Auto) 8.4 Eos % (Auto) 7.7 Baso % (Auto) 1.2 Immature Gran # (Auto) 0.01 Neut # (Auto) 3.13 Lymph # (Auto) 0.40 L [place] # (Auto) 0.36 Eos # (Auto) 0.33 Baso # (Auto) 0.05 Poikilocytosis Present Sodium 143 Potassium 5.2 H Chloride 107 Carbon Dioxide 23 Anion Gap 12.0 H BUN 167 H Creatinine 14.20 H* Est Cr Clr Drug Dosing 5.5 Est GFR ( Amer) 3.4 Est GFR (Non-Af Amer) 2.9 BUN/Creatinine Ratio 11.8 Glucose 178 H Calcium 9.5 Total Bilirubin 0.5 AST 6 L ALT 19 Alkaline Phosphatase 100 Total Protein 6.1 L Albumin 3.0 L Globulin 3.1 Albumin/Globulin Ratio 1.0 Diagnostic Findings cxr - pulmonary edema CT head - no ICH or fracture EKG - NSR, first degree AV block, RBBB, nonspecific lateral ST changes Code Status & VTE Plan Code Status full code VTE Prophylaxis Plan VTE Prophylaxis will be ordered: Yes PG Care Time/CCT Total # of Minutes Spent Total Time Spent with Patient: Total time spent is greater than 50% in coordination of care (as documented) at patient's floor/unit and/or counseling patient: Coding Level of Care Code 98680 Initial Inpt Care Lvl 3 Diagnoses End-stage renal disease (ESRD) N18.6 Volume overload E87.70 Hypervolemia type: unspecified Metabolic encephalopathy G93.41 Non-compliance with treatment Z91.19 Acute head injury S09.90XA Encounter type: initial encounter Fall W19.XXXA Encounter type: initial encounter Face lacerations S01.81XA Encounter type: initial encounter Pancytopenia D61.818 Diabetes mellitus, type 2 E11.22; N18.6; Z79.4; Z99.2 Chronic kidney disease stage: on chronic dialysis Diabetes mellitus complication detail: with chronic kidney disease Diabetes mellitus complication status: with kidney complications Diabetes mellitus substation superintendent insulin use: with substation superintendent use GAVE (gastric antral vascular ectasia) K31.819 Hypertension I10 Hypertension type: unspecified Hypothyroidism E03.9 Hypothyroidism type: unspecified Cirrhosis K74.60 Ascites presence: unspecified Hepatic cirrhosis type: unspecified hepatic cirrhosis Obstructive sleep apnea G47.33 CAD (coronary artery disease) I25.10 Associated angina: without angina Coronary Disease-Associated Artery/Lesion type: rampart artery [place] vs. transplanted heart: rampart heart BPH (benign prostatic hyperplasia) N40.0 Lower urinary tract symptom presence: unspecified whether lower urinary tract symptoms present COPD (chronic obstructive pulmonary disease) J44.9 COPD type: unspecified COPD DVT prophylaxis Z29.9 (1) Acute head injury Encounter type: initial encounter Qualified Code(s): S09.90XA - Unspecified injury of head, initial encounter (2) BPH (benign prostatic hyperplasia) Lower urinary tract symptom presence: unspecified whether lower urinary tract symptoms present Qualified Code(s): N40.0 - Benign prostatic hyperplasia without lower urinary tract symptoms (3) Diabetes mellitus, type 2 Chronic kidney disease stage: on chronic dialysis Diabetes mellitus complication detail: with chronic kidney disease Diabetes mellitus complication status: with kidney complications Diabetes mellitus group home insulin use: with group home use Qualified Code(s): E11.22 - Type 2 diabetes mellitus with diabetic chronic kidney disease; N18.6 - End stage renal disease; Z79.4 - research and development scientist (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 (4) CAD (coronary artery disease) Associated angina: without angina Coronary Disease-Associated Artery/Lesion type: rampart artery [place] vs. transplanted heart: rampart heart Qualified Code(s): I25.10 - Atherosclerotic heart disease of ramp[place] coronary artery with out angina pectoris (5) Hypothyroidism Hypothyroidism type: unspecified Qualified Code(s): E03.9 - Hypothyroidism, unspecified (6) Cirrhosis Ascites presence: unspecified Hepatic cirrhosis type: unspecified hepatic cirrhosis Qualified Code(s): K74.60 - Unspecified cirrhosis of liver (7) Face lacerations Encounter type: initial encounter Qualified Code(s): S01.81XA - Laceration without foreign body of other part of head, initial encounter (8) COPD (chronic obstructive pulmonary disease) COPD type: unspecified COPD Qualified Code(s): J44.9 - Chronic obstructive pulmonary disease, unspecified (9) Hypertension Hypertension type: unspecified Qualified Code(s): I10 - Essential (primary) hypertension (10) Fall Encounter type: initial encounter Qualified Code(s): W19.XXXA - Unspecified fall, initial encounter (11) Volume overload Hypervolemia type: unspecified Qualified Code(s): E87.70 - Fluid overload, unspecified
[2019-11-03] MEDS ORDERED: DIPHTHERIA/TETANUS/PERTUSSIS 0.5 ML SYR/VIAL IM ONE (18:38)
[2019-11-03] MEDS ORDERED: SODIUM CHLORIDE 0.9% 250 ML IV PRN (19:06)
[2019-11-03] MEDS ORDERED: NITROGLYCERIN SL 0.4 MG/TAB TAB SL PRN (19:06)
[2019-11-03] MEDS ORDERED: ONDANSETRON INJ 2 MG/ML 2 ML VIAL IV PRN (19:06)
[2019-11-03] MEDS ORDERED: ACETAMINOPHEN 325 MG TAB PO PRN (19:06)
[2019-11-03] MEDS ORDERED: GLUCOSE 40% GEL 15 GM TUBE PO PRN (19:15)
[2019-11-03] MEDS ORDERED: GLUCAGON FOR INJ 1 MG VIAL IM PRN (19:15)
[2019-11-03] MEDS ORDERED: GLUCOSE 10 TABS/TUBE PO PRN (19:15)
[2019-11-03] MEDS ORDERED: DEXTROSE 50% 50 ML SYRINGE IV PRN (19:15)
[2019-11-03] MEDS ORDERED: CARBOHYDRATES FOR HYPOGLYCEMIA PO PRN (19:15)
[2019-11-03 19:51] LABS: Ferritin 128.4 ng/ml (8-388)
[2019-11-03] MEDS: AMLODIPINE BESYLATE 5 MG TAB PO SCH (20:30)
[2019-11-03] MEDS: BUMETANIDE 1 MG TAB PO SCH (20:30)
[2019-11-03] MEDS: FERROUS SULFATE 325 MG TAB PO SCH (20:31)
[2019-11-03] MEDS: CYANOCOBALAMIN 500 MCG TABLET (VITAMIN B-12) PO SCH (20:31)
[2019-11-03] MEDS: LABETALOL HCL 200 MG TAB PO SCH (20:32)
[2019-11-03] MEDS: INSULIN DETEMIR FLEXPEN/FLEX TOUCH 100 UNITS/ML 3ML SC SCH (20:33)
[2019-11-03] MEDS: TAMSULOSIN HCL 0.4 MG CAP PO SCH (20:33)
[2019-11-03] MEDS: PANTOprazole 40 MG TAB PO SCH (20:33)
[2019-11-03] MEDS: ROSUVASTATIN CALCIUM 20 MG TAB PO SCH (20:33)
[2019-11-03] MEDS: INSULIN ASPART 100 UNITS/ML 3 ML PEN SC SCH (20:37)
[2019-11-03] MEDS ORDERED: LACTULOSE SYRUP 20 GM/30 ML UDC PO ONE (21:19)
[2019-11-04] MEDS: LEVOTHYROXINE SODIUM 200 MCG TABLET PO SCH (05:40)
[2019-11-04] MEDS: LEVOTHYROXINE SODIUM 150 MCG TABLET PO SCH (05:40)
[2019-11-04 06:44] LABS: Hematocrit (blood only) 22.4 % (42-52); Hemoglobin 7.2 g/dL (14.0-18.0); Mean Corpuscular Hemoglobin 30.5 pg (25-34); Mean Corpuscular Hgb Conc 32.1 g/dL (32-36); Mean Corpuscular Volume 94.9 fL (80-100); RDW Coefficient of Variation 16.4 % (11.5-14.5); RDW Standard Deviation 56.8 fL (36.4-46.3); Red Blood Count 2.36 M/uL (4.7-6.1); White Blood Count 2.97 K/uL (4.8-10.8)
[2019-11-04 07:21] LABS: BUN Creatinine Ratio 12.3 (10-20); Calcium 9.6 mg/dl (8.5-10.1); Creatinine Clr Calc Pharmacy 5.3 ml/min; Est GFR (African American) 3.4; Est GFR (Non-African American) 2.9; Potassium 5.1 mmol/L (3.5-5.1)
[2019-11-04 07:27] LABS: Mean Platelet Volume 11.9 fL (7.4-10.4); Platelet Count 83 K/uL (130-400); Platelet Estimate Decreased (Normal)
[2019-11-04] MEDS ORDERED: EPOETIN ALFA 20,000 UNITS/ML VIAL IV ONE (08:00)
[2019-11-04] MEDS: CALCIUM ACETATE 667 MG CAP/TAB PO SCH ×3 (08:15→17:11)
[2019-11-04] MEDS: DOCUSATE SODIUM 100 MG CAP PO SCH (08:15)
[2019-11-04] MEDS: PANTOprazole 40 MG TAB PO SCH ×2 (08:15→20:28)
[2019-11-04] MEDS: FOLIC ACID 1 MG TAB PO SCH (08:15)
[2019-11-04] MEDS: DOXAZOSIN MESYLATE 1 MG TAB PO SCH (08:15)
[2019-11-04] MEDS: INSULIN ASPART 100 UNITS/ML 3 ML PEN SC SCH ×4 (08:19→20:26)
[2019-11-04] MEDS ORDERED: SODIUM CHLORIDE 0.9% 250 ML IV PRN (08:30)
--- NOTE | 2019-11-04 08:31 | Hospitalist Progress Note ---
Date of Service November 04, 2019 Assessment & Plan (1) Acute blood loss anemia: baseline Hb between 8 and 9. frequent slow upper GI bleeds 2nd to GAVE. s/p numerous EGDs by [facility] for such. had Hb of nearly 9 in late October. now 7.2 this am. had had melena stools at home prior to admission. assume slow GI bleeding from GAVE again. blood consent obtained. he understood risks/benefits. Tx 2 units PRBCs today on HD. post-Tx hemoglobin was 9. repeat CBC am. if future CBCs suggest ongoing bleeding then consult [facility]. cont PPI twice daily. (2) End-stage renal disease (ESRD): significant noncompliance with outpatient HD sessions. now with marked elevation of BUN and Creatinine. at time of admission yesterday he was sleepy/lethargic and altered consistent with uremia. he has evidence of volume overload and minimally elevated potassium. Dr Briceno from [facility] nephrology consulted - s/p HD today. need to assess patient's goals for his care - he reports wanting full code status but missing nearly 2 weeks of HD is dangerous and could lead to his mortality. consider palliative care consultation while here. (3) Volume overload: 2nd to multiple missed HD sessions. does make some urine - continue his bumex. he is comfortable on small amount of NC O2. (4) Metabolic encephalopathy: 2nd to uremia and hepatic encephalopathy improved s/p HD today s/p lactulose yesterday; will give another dose today repeat ammonia level in am probably needs low-dose daily lactulose ongoing (5) Non-compliance with treatment: chronic issue uncertain if we will make progress with this terribly frustrated by his noncompliance consider palliative care consultation (6) Acute head injury: 2nd to fall while in ER. no acute process on CT head. no pain over the cervical spine; defer on imaging for now. (7) Fall: suspect falls at home are due to altered mental status from multiple metabolic factors including uremia, hepatic encephalopathy, and decompensated hypothyroidism (all of the past several TSHs have been markedly elevated, likely due to noncompliance with thyroid replacement). no bony injury fortunately despite the falls. balance, walking, etc should improve with Rx of elevated ammonia, serial HD sessions, etc PT, OT while here. (8) Face lacerations: repair per ER providers. s/p adacel vaccine x 1. (9) Pancytopenia: chronic. due to cirrhosis? decompensated hypothyroidism? other factors? follow w/ daily CBC. (10) Diabetes mellitus, type 2: continue levemir 15 units daily. novolog sliding scale with meals/bedtime. bsgs ac/hs. (11) GAVE (gastric antral vascular ectasia): h/o recurrent GI bleeding from such. s/p EGD multiple times by [facility] for active upper GI bleeding; last 09/2019. H/H again lower today. Tx 2 units PRBCs on HD today. repeat Hb tonight - 9 post-transfusion. repeat CBC in am. low threshold for [facility] consultation if concern for ongoing bleeding from this. Fe studies noted; defer IV venofer management to nephrology. continue PPI bid. (12) Hypertension: cont home meds (13) Hypothyroidism: decompensated for months. likely contributing to failure to thrive. will not change his synthroid dose. simply resume; reinforce compliance with such. (14) Cirrhosis: based on past CT abd/pelvis. "cardiac" cirrhosis? evidence of hepatic encephalopathy - Rx lactulose. (15) Obstructive sleep apnea: NC O2 HS (16) CAD (coronary artery disease): noted follows with [facility] cardiology continue all usual cardiac meds not a candidate for antiplatelet agents due to recurrent GI bleeding from GAVE had episode of heartburn after his HD session I obtained EKG - no changes from prior EKG gave tums and pepcid x 1 with resolution; likely was GERD (17) BPH (benign prostatic hyperplasia): cont alpha amberly check orthostatics to ensure not having orthostasis from such leading to falls (18) COPD (chronic obstructive pulmonary disease): no exacerbation O2 requirement 2nd to volume overload (19) DVT prophylaxis: SCDs chemical means contraindicated due to probable low-grade GI bleeding from GAVE extensive update given to over phone this evening Admission and Anticipated Discharge Date Admission Date: November 03, 2019 Subjective patient much more awake, alert this am. eating breakfast during my bedside rounds. reports no complaints. tele overnight stable. apparently had 2 large bowel movements including 1 this am. we had a discussion about need for PRBCs. he voiced understanding of need, stating "I've had them before" (during prior admissions for bleeding from GAVE). he was mildly confused, getting day of the week wrong, but knew the year and that he was at [facility]. I spoke with his by phone - she voiced considerable frustration with her 's noncompliance with dialysis. she could not give a reason either for why he skips HD sessions as outpatient. she said "he tells me that he simply doesn't want to go. He often will say he just doesn't feel good." she realizes skipping HD is a "matter of life or ." she reported that when hospice was broached the night of admission from the home health nurse that she was "relieved that he told them he didn't want hospice.". she also reported he had had 3 falls in the days leading up to admission. Review of Systems Constitutional: no fever Respiratory: + cough; no dyspnea Cardiovascular: no chest pain Gastrointestinal: + heartburn (After HD session today ); no nausea and no vomiting Physical Exam Constitutional: + altered mental status (Mild - much improved from yesterday's exam); no acute distress ENMT: external ear and nose normal, oropharynx normal Respiratory: no respiratory distress Auscultation: + rales (Bases ); no wheezes Cardiovascular: Rate/Rhythm: regular rate and regular rhythm Heart Sounds: normal S1, normal S2 and + murmur (1-2/6 LUSB) Vessels: + JVD (Mild), posterior tibial pulses present and dorsalis pedis pulses present Extremities: + edema Gastrointestinal (Abdomen): normal bowel sounds, soft, nontender, no hepatosplenomegaly Inspection/Auscultation: + abdomen distended (Ascites/body wall edema?) Skin: + pallor 2 small facial lacerations, s/p repair in ER, now with sutures; no bleeding Neurologic: Motor/Sensory: + asterixis (But improved today) Psychiatric: Orientation: alert, oriented to person and oriented to place; + not oriented to time Results & Data Results & Data ([facility]) Vital Signs (Past 12 Hours) Vital Signs Temp Pulse Pulse Resp BP Pulse Ox 11/04/19 07:29 36.5 C 53 L 20 144/63 H 93 11/04/19 07:26 52 L 11/04/19 02:59 36.4 C L 53 L 18 154/62 H 95 11/03/19 23:53 50 L 11/03/19 23:39 36.3 C L 53 L 19 161/59 H 97 11/03/19 21:18 65 Laboratory Results Laboratory Results - last 24 hr 11/03/19 11/03/19 11/03/19 13:15 13:15 19:20 WBC 4.28 L RBC 2.71 L Hgb 7.9 L Hct 25.6 L MCV 94.5 MCH 29.2 MCHC 30.9 L RDW Std Deviation 56.8 H RDW Coeff of Jose C 16.4 H Plt Count 93 L MPV 11.9 H Immature Gran % (Auto) 0.2 Neut % (Auto) 73.2 Lymph % (Auto) 9.3 Foster % (Auto) 8.4 Eos % (Auto) 7.7 Baso % (Auto) 1.2 Immature Gran # (Auto) 0.01 Neut # (Auto) 3.13 Lymph # (Auto) 0.40 L Foster # (Auto) 0.36 Eos # (Auto) 0.33 Baso # (Auto) 0.05 Platelet Estimate Poikilocytosis Present Sodium 143 Potassium 5.2 H Chloride 107 Carbon Dioxide 23 Anion Gap 12.0 H BUN 167 H Creatinine 14.20 H* Est Cr Clr Drug Dosing 5.5 Est GFR ( Amer) 3.4 Est GFR (Non-Af Amer) 2.9 BUN/Creatinine Ratio 11.8 Glucose 178 H POC Glucose Calcium 9.5 Iron Transferrin Transferrin % Sat Ferritin Total Bilirubin 0.5 AST 6 L ALT 19 Alkaline Phosphatase 100 Ammonia 68.9 H Total Protein 6.1 L Albumin 3.0 L Globulin 3.1 Albumin/Globulin Ratio 1.0 Nasal Screen MRSA (PCR) Blood Type Antibody Screen Crossmatch 11/03/19 11/03/19 11/03/19 19:20 19:20 19:52 WBC RBC Hgb Hct MCV MCH MCHC RDW Std Deviation RDW Coeff of Jose C Plt Count MPV Immature Gran % (Auto) Neut % (Auto) Lymph % (Auto) Foster % (Auto) Eos % (Auto) Baso % (Auto) Immature Gran # (Auto) Neut # (Auto) Lymph # (Auto) Foster # (Auto) Eos # (Auto) Baso # (Auto) Platelet Estimate Poikilocytosis Sodium Potassium Chloride Carbon Dioxide Anion Gap BUN Creatinine Est Cr Clr Drug Dosing Est GFR ( Amer) Est GFR (Non-Af Amer) BUN/Creatinine Ratio Glucose POC Glucose Calcium Iron 28 L Transferrin 180 L Transferrin % Sat 11 L Ferritin 128.4 Total Bilirubin AST ALT Alkaline Phosphatase Ammonia Total Protein Albumin Globulin Albumin/Globulin Ratio Nasal Screen MRSA (PCR) Negative Blood Type B Positive Antibody Screen NEGATIVE Crossmatch See Detail 11/03/19 11/04/19 11/04/19 20:33 06:10 06:10 WBC 2.97 L RBC 2.36 L Hgb 7.2 L Hct 22.4 L MCV 94.9 MCH 30.5 MCHC 32.1 RDW Std Deviation 56.8 H RDW Coeff of Jose C 16.4 H Plt Count 83 L MPV 11.9 H Immature Gran % (Auto) Neut % (Auto) Lymph % (Auto) Foster % (Auto) Eos % (Auto) Baso % (Auto) Immature Gran # (Auto) Neut # (Auto) Lymph # (Auto) Foster # (Auto) Eos # (Auto) Baso # (Auto) Platelet Estimate Decreased L Poikilocytosis Sodium 144 Potassium 5.1 Chloride 110 H Carbon Dioxide 22 Anion Gap 12.0 H BUN 174 H Creatinine 14.30 H* Est Cr Clr Drug Dosing 5.3 Est GFR ( Amer) 3.4 Est GFR (Non-Af Amer) 2.9 BUN/Creatinine Ratio 12.3 Glucose 109 H POC Glucose 234 H Calcium 9.6 Iron Transferrin Transferrin % Sat Ferritin Total Bilirubin AST ALT Alkaline Phosphatase Ammonia Total Protein Albumin Globulin Albumin/Globulin Ratio Nasal Screen MRSA (PCR) Blood Type Antibody Screen Crossmatch 11/04/19 07:46 WBC RBC Hgb Hct MCV MCH MCHC RDW Std Deviation RDW Coeff of Jose C Plt Count MPV Immature Gran % (Auto) Neut % (Auto) Lymph % (Auto) Foster % (Auto) Eos % (Auto) Baso % (Auto) Immature Gran # (Auto) Neut # (Auto) Lymph # (Auto) Foster # (Auto) Eos # (Auto) Baso # (Auto) Platelet Estimate Poikilocytosis Sodium Potassium Chloride Carbon Dioxide Anion Gap BUN Creatinine Est Cr Clr Drug Dosing Est GFR ( Amer) Est GFR (Non-Af Amer) BUN/Creatinine Ratio Glucose POC Glucose 121 H Calcium Iron Transferrin Transferrin % Sat Ferritin Total Bilirubin AST ALT Alkaline Phosphatase Ammonia Total Protein Albumin Globulin Albumin/Globulin Ratio Nasal Screen MRSA (PCR) Blood Type Antibody Screen Crossmatch ekg - my reading - NSR, lateral and inferior ST depressions but unchanged from prior EKG PG Care Time/CCT Total # of Minutes Spent Total Time Spent with Patient: Total time spent is greater than 50% in coordination of care (as documented) at patient's floor/unit and/or counseling patient: Coding Level of Care Code 48240 Subseq Hosp Care Lvl 3 Diagnoses Acute blood loss anemia D62 End-stage renal disease (ESRD) N18.6 Volume overload E87.70 Hypervolemia type: unspecified Metabolic encephalopathy G93.41 Non-compliance with treatment Z91.19 Acute head injury S09.90XA Encounter type: initial encounter Fall W19.XXXA Encounter type: initial encounter Face lacerations S01.81XA Encounter type: initial encounter Pancytopenia D61.818 Diabetes mellitus, type 2 E11.22; N18.6; Z79.4; Z99.2 Chronic kidney disease stage: on chronic dialysis Diabetes mellitus complication detail: with chronic kidney disease Diabetes mellitus complication status: with kidney complications Diabetes mellitus detention insulin use: with terminal gauger use GAVE (gastric antral vascular ectasia) K31.819 Hypertension I10 Hypertension type: unspecified Hypothyroidism E03.9 Hypothyroidism type: unspecified Cirrhosis K74.60 Ascites presence: unspecified Hepatic cirrhosis type: unspecified hepatic cirrhosis Obstructive sleep apnea G47.33 CAD (coronary artery disease) I25.10 Associated angina: without angina Coronary Disease-Associated Artery/Lesion type: [place] artery [place] vs. transplanted heart: [place] heart BPH (benign prostatic hyperplasia) N40.0 Lower urinary tract symptom presence: unspecified whether lower urinary tract symptoms present COPD (chronic obstructive pulmonary disease) J44.9 COPD type: unspecified COPD DVT prophylaxis Z29.9 (1) Acute head injury Encounter type: initial encounter Qualified Code(s): S09.90XA - Unspecified injury of head, initial encounter (2) BPH (benign prostatic hyperplasia) Lower urinary tract symptom presence: unspecified whether lower urinary tract symptoms present Qualified Code(s): N40.0 - Benign prostatic hyperplasia without lower urinary tract symptoms (3) Diabetes mellitus, type 2 Chronic kidney disease stage: on chronic dialysis Diabetes mellitus complication detail: with chronic kidney disease Diabetes mellitus complication status: with kidney complications Diabetes mellitus terminal gauger insulin use: with terminal gauger use Qualified Code(s): E11.22 - Type 2 diabetes mellitus with diab etic chronic kidney disease; N18.6 - End stage renal disease; Z79.4 - senior care (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 (4) CAD (coronary artery disease) Associated angina: without angina Coronary Disease-Associated Artery/Lesion type: [place] artery [place] vs. transplanted heart: [place] heart Qualified Code(s): I25.10 - Atherosclerotic heart disease of [place] coronary artery without angina pectoris (5) Hypothyroidism Hypothyroidism type: unspecified Qualified Code(s): E03.9 - Hypothyroidism, unspecified (6) Cirrhosis Ascites presence: unspecified Hepatic cirrhosis type: unspecified hepatic cirrhosis Qualified Code(s): K74.60 - Unspecified cirrhosis of liver (7) Face lacerations Encounter type: initial encounter Qualified Code(s): S01.81XA - Laceration without foreign body of other part of head, initial encounter (8) COPD (chronic obstructive pulmonary disease) COPD type: unspecified COPD Qualified Code(s): J44.9 - Chronic obstructive pulmonary disease, unspecified (9) Hypertension Hypertension type: unspecified Qualified Code(s): I10 - Essential (primary) hypertension (10) Fall Encounter type: initial encounter Qualified Code(s): W19.XXXA - Unspecified fall, initial encounter (11) Volume overload Hypervolemia type: unspecified Qualified Code(s): E87.70 - Fluid overload, unspecified
--- NOTE | 2019-11-04 09:51 | Nephrology Consultation ---
Date of Consultation November 04, 2019 Assessment & Plan (1) End-stage renal disease (ESRD): End-stage renal disease, on hemodialysis TTS admitted again to the hospital with metabolic encephalopathy, hyperkalemia and volume overload after missing dialysis for more than 2 weeks. Hemoglobin was 7.2 on admission. Blood pressure elevated, Volume overloaded. Patient was concerned with the idea of discharging home as he has been having repeated episode of fall home lately as well. --HD today for 2 hours with 160 dialyzer and low blood flow and plan to do daily dialysis next few days --2 PRBC with HD today, NEMESIO 50364 units x1 dose with dialysis --oral phosphate binder and renal cap daily --dose meds for GFR <10 --left arm nephrology percussion ( AVF) --may need to consider long-term long term placement however unlikely patient or family will agree with that, suggest social service involvement to discuss about placement with patient and family Will follow Thank you for allowing me to participate in your patient's care. (2) Metabolic encephalopathy: (3) Non-compliance with treatment: (4) Hypertension: (5) Chronic anemia: (6) Acute hyperkalemia: History of Present Illness Reason for Consultation: ESRD, hyperkalemia, missed dialysis treatment with history of noncompliance. Attending Physician: Prashanth Rausch History of Present Illness Don was admitted to hospital yesterday after he presented to the ER with hyperkalemia, volume overload and missed dialysis treatment for almost 2 weeks. He was found to have hyperkalemia with potassium around 5 point 6, BUN 167 and creatinine 15. Had mild volume overload with lower extremity edema. Hemoglobin was low at 7.2 with history of chronic GI bleeding with gastric AVM and not receiving NEMESIO as he missed dialysis. Had multiple EGD, colonoscopy and capsule endoscopy. On admission initial plan is to discharge him home and go to his outpatient dialysis unit today for dialysis. However, in ER he had a fall from his bed and had laceration on his nose and forehead and decision was made to admit him. Imaging study including head CT was otherwise negative. There was no fracture of wrist or nose. Has end-stage renal disease on hemodialysis on Saturday, day and Saturday at [facility]. Specially over last 2 years he has been extremely noncompliant with his treatment and had repeated periods when he did not go from dialysis for weeks. Had repeated discussion with patient and family and recommended hospice care however patient and family both wanted to continue with dialysis. AV fistula has been functioning well. He has been getting Mircera dialysis unit at 225 milligram every 2 weeks and getting Venofer as well, however he did not receive any over last 2 weeks as he was not going for dialysis. Currently he seems lethargic, barely opening his eyes. Seems otherwise comfortable, not in any respiratory distress. Allergies Allergy/AdvReac Type Severity Reaction Status Date / Time sucralfate [From Carafate] Allergy Mild upset Verified 11/03/19 16:28 dialysis tramadol AdvReac Severe disorented Verified 11/03/19 16:28 ,falling down metformin AdvReac Intermediate CONFUSION Verified 11/03/19 16:28 Home Medications Home Medications Medication Instructions Recorded Confirmed Type tamsulosin 0.4 mg PO HS #90 cap 01/02/19 11/03/19 Rx docusate sodium 100 mg capsule 200 mg PO QAM #30 cap 01/19/19 11/03/19 Rx gabapentin 100 mg capsule 200 mg PO HS #60 cap 02/04/19 11/03/19 Rx insulin detemir U-100 100 unit/mL 15 units SUBCUT HS ml 03/25/19 11/03/19 History subcutaneous solution pantoprazole 40 mg PO BID 04/25/19 11/03/19 History Renal Caps 1 cap PO QDL 05/23/19 11/03/19 History calcium acetate(phosphat bind) 667 2,001 mg PO TIDM tab 06/02/19 11/03/19 History mg tablet insulin aspart U-100 [Novolog 0 sliding scale dose SUBCUT QID 06/06/19 11/03/19 History U-100 Insulin aspart] amlodipine 10 mg PO HS 06/13/19 11/03/19 History doxazosin [Cardura] 1 mg PO QDL 06/23/19 11/03/19 History folic acid 1 mg tablet 1 mg PO QDL 07/10/19 11/03/19 History lisinopril 40 mg PO QDL 07/23/19 11/03/19 History cyanocobalamin (vitamin B-12) 1,000 mcg PO HS 08/14/19 11/03/19 History [Vitamin B-12] ferrous sulfate 325 mg (65 mg 325 mg PO BID #60 tab 10/01/19 11/03/19 Rx iron) tablet,delayed release rosuvastatin 20 mg tablet 20 mg PO QPM #90 tab 10/01/19 11/03/19 Rx labetalol 200 mg tablet 200 mg PO BID #180 tab 10/08/19 11/03/19 Rx levothyroxine 150 mcg tablet 150 mcg PO DAILY #90 tab 10/13/19 11/03/19 Rx levothyroxine 200 mcg tablet 200 mcg PO QAM #90 tab 10/13/19 11/03/19 Rx bumetanide 1 mg tablet 2 mg PO BID #120 tab 10/20/19 11/03/19 Rx hydralazine 50 mg PO TIDM 10/20/19 11/03/19 History Patient History Medical History Anemia of renal disease Anxiety and depression Arthritis Asthma AVF (arteriovenous fistula) LEFT ARM BPH (benign prostatic hyperplasia) CAD (coronary artery disease) Chronic diastolic congestive heart failure Colon, diverticulosis 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, with long-term current use of insulin COPD (chronic obstructive pulmonary disease) Diabetes mellitus, type 2 Diabetic peripheral neuropathy Dialysis patient [facility] SATURDAY, SATURDAY, SATURDAY GAVE (gastric antral vascular ectasia) (Acute) GERD (gastroesophageal reflux disease) GI bleed (Inactive) Hearing difficulty Hyperlipidemia LDL goal <70 Hypertension (Acute) Hypnic jerks Hypothyroidism IgG monoclonal gammopathy Memory loss Mitral regurgitation Obstructive sleep apnea uses oxygen 2 l nc at hs Occlusion and stenosis of unspecified carotid artery On home oxygen therapy WEARS O2 AT 2L HS Osteoporosis Pulmonary hypertension Secondary hyperparathyroidism of renal origin Vitamin D deficiency Surgical History H/O cardiac catheterization many years ago - over 10 years no stents follow with trung (NO STENTS) H/O hemorrhoidectomy History of colonoscopy History of esophagogastroduodenoscopy (EGD) MULTIPLE History of tooth extraction Hx of cholecystectomy Family History Unknown Myocardial infarction Mother Diabetes Breast cancer late 70s Hypertension Gallbladder disease Father Diabetes Hypertension Brother Diabetes Kidney disease Hypertension Denies family history of Ovarian cancer Prostate cancer Lung cancer Colorectal cancer Social History (Updated 11/03/19 @ 18:00 by Prashanth Rausch) Preferred Language: Dominican Communication Ability: Effective Visual Impairment: No Limitations Hearing Ability: Hard of Hearing Flooring Machine Feeder Required: No Beliefs That Will Affect Care: None marital status: Current Living Situation: Spouse Current Living Situation Comment: lives with in [place] current occupational status: disabled current occupation: works part-time at [employer] other: 4 children Feels Safe at Home: Yes Smoking Status: Former smoker Tobacco Type: cigarettes ; packs per day: 0.5 ; Years Smoked: 5 ; Number of Years Since Quit: 25 ; Second Hand Exposure: No ; Hx Alcohol Use: Yes Hx Substance Use: No Childhood Exposure to Second-Hand Smoke: No Diet Comment: regular caffeine: Yes during the past year weight has: remained stable Dental Care, Regularly: Yes Physical Activity Frequency: Does not Exercise Physical Activity Frequency Comment: limited due physical condition Seatbelt Use: sometimes Sunscreen Use: No Review of Systems Review of Systems: Unobtainable due to cognitive status Physical Exam Constitutional: + ill appearing, + altered mental status and + lethargic; no acute distress Eyes: PERRL, conjunctivae normal, anicteric sclerae Neck: trachea midline Respiratory: normal respiratory effort; no respiratory distress and no cough Auscultation: + crackles Cardiovascular: Rate/Rhythm: regular rate and regular rhythm Heart Sounds: normal S1 and normal S2 Extremities: + edema and + AV fistula (left UE AVF with thrill and bruit) Gastrointestinal (Abdomen): Inspection/Auscultation: abdomen normal to inspection and normal bowel sounds Percussion/Palpation: abdomen nontender, no guarding and abdomen not rigid Musculoskeletal: laceration on nose and forehead Skin: Trauma: + laceration Neurologic: + confused and + obtunded Results & Data Vital Signs (Past 12 Hours) Vital Signs Temp Pulse Pulse Resp BP Pulse Ox 11/04/19 07:29 36.5 C 53 L 20 144/63 H 93 11/04/19 07:26 52 L 11/04/19 02:59 36.4 C L 53 L 18 154/62 H 95 11/03/19 23:53 50 L 11/03/19 23:39 36.3 C L 53 L 19 161/59 H 97 PG Care Time/CCT Total # of Minutes Spent Total Time Spent with Patient: Total time spent is greater than 50% in coordination of care (as documented) at patient's floor/unit and/or counseling patient: Coding Level of Care Code 35712 Office/OBS Consult Lvl 5 Diagnoses End-stage renal disease (ESRD) N18.6 Metabolic encephalopathy G93.41 Non-compliance with treatment Z91.19 Hypertension I10 Hypertension type: unspecified Chronic anemia D64.9 Acute hyperkalemia E87.5 (1) Hypertension Hypertension type: unspecified Qualified Code(s): I10 - Essential (primary) hypertension
[2019-11-04] MEDS: HydrALAZINE TAB 50 MG TAB PO SCH ×3 (13:11→17:10)
[2019-11-04] MEDS: LABETALOL HCL 200 MG TAB PO SCH ×2 (13:12→20:28)
[2019-11-04] MEDS: FERROUS SULFATE 325 MG TAB PO SCH ×2 (13:12→20:27)
[2019-11-04] MEDS: NEPHROCAPS PO SCH (13:13)
[2019-11-04] MEDS: BUMETANIDE 1 MG TAB PO SCH ×2 (13:16→17:09)
[2019-11-04] MEDS ORDERED: CALCIUM CARBONATE 500 MG CHEWABLE TAB PO STA (14:14)
[2019-11-04] MEDS ORDERED: FAMOTIDINE 20 MG in SYRINGE 3 ML IV ONE (15:00)
[2019-11-04] MEDS ORDERED: LACTULOSE SYRUP 20 GM/30 ML UDC PO ONE (18:00)
[2019-11-04 18:21] LABS: Hematocrit (blood only) 27.9 % (42-52)
[2019-11-04] MEDS: INSULIN DETEMIR FLEXPEN/FLEX TOUCH 100 UNITS/ML 3ML SC SCH (20:26)
[2019-11-04] MEDS: AMLODIPINE BESYLATE 5 MG TAB PO SCH (20:27)
[2019-11-04] MEDS: TAMSULOSIN HCL 0.4 MG CAP PO SCH (20:28)
[2019-11-04] MEDS: ROSUVASTATIN CALCIUM 20 MG TAB PO SCH (20:29)
[2019-11-04] MEDS: CYANOCOBALAMIN 500 MCG TABLET (VITAMIN B-12) PO SCH (20:29)
[2019-11-05 02:40] LABS: Appearance Urine Clear (Clear); Bacteria Urine Automated Negative (Negative); Bilirubin Urine Negative (Negative); Blood Urine Negative (Negative); Color Urine Yellow; Epithelial Cell Urine Auto >30 /lpf (0-5); Glucose Urine UA Trace (Negative); Ketones Urine Negative (Negative); Leukocyte Esterase Urine Trace (Negative); Nitrite Urine Negative (Negative); Protein Urine 3+ (Negative); RBC Urine Automated 0-4 /hpf (0-4); Urobilinogen Urine Negative (Negative)
[2019-11-05 05:44] LABS: Hematocrit (blood only) 27.8 % (42-52); Hemoglobin 8.9 g/dL (14.0-18.0); Mean Corpuscular Hemoglobin 29.2 pg (25-34); Mean Corpuscular Volume 91.1 fL (80-100); RDW Coefficient of Variation 17.1 % (11.5-14.5); RDW Standard Deviation 57.2 fL (36.4-46.3); Red Blood Count 3.05 M/uL (4.7-6.1); White Blood Count 2.92 K/uL (4.8-10.8)
[2019-11-05 06:05] LABS: Mean Platelet Volume 11.7 fL (7.4-10.4); Platelet Count 88 K/uL (130-400)
[2019-11-05 06:08] LABS: Basophils # (auto) 0.04 K/uL (0-0.2); Basophils % (auto) 1.4 %; Eosinophils # (auto) 0.16 K/uL (0-0.5); Eosinophils % (auto) 5.5 %; Giant Platelets 2+; Immature Granulocytes # (auto) 0.01 K/uL (0.00-0.02); Immature Granulocytes % (auto) 0.3 %; Lymphocytes # (auto) 0.31 K/uL (1.2-3.4); Lymphocytes % (auto) 10.6 %; Monocytes # (auto) 0.39 K/uL (0.11-0.59); Monocytes % (auto) 13.4 %; Neutrophils # (auto) 2.01 K/uL (1.4-6.5); Neutrophils % (auto) 68.8 %; Ovalocytes 1+; Target Cells 1+
[2019-11-05 06:14] LABS: BUN Creatinine Ratio 10.8 (10-20); Calcium 9.5 mg/dl (8.5-10.1); Creatinine Clr Calc Pharmacy 6.4 ml/min; Est GFR (African American) 4.2; Est GFR (Non-African American) 3.7; Phosphorus 5.4 mg/dl (2.5-4.9); Potassium 4.5 mmol/L (3.5-5.1)
[2019-11-05] MEDS: LEVOTHYROXINE SODIUM 200 MCG TABLET PO SCH (06:16)
[2019-11-05] MEDS: LEVOTHYROXINE SODIUM 150 MCG TABLET PO SCH (06:16)
[2019-11-05] MEDS: INSULIN ASPART 100 UNITS/ML 3 ML PEN SC SCH ×4 (08:29→21:40)
[2019-11-05] MEDS: CALCIUM ACETATE 667 MG CAP/TAB PO SCH ×3 (08:30→17:29)
[2019-11-05] MEDS: LABETALOL HCL 200 MG TAB PO SCH ×2 (10:36→21:57)
[2019-11-05] MEDS: HydrALAZINE TAB 50 MG TAB PO SCH ×3 (10:36→17:30)
--- NOTE | 2019-11-05 10:37 | Dialysis Progress Note ---
Date of Service November 05, 2019 Assessment & Plan (1) End-stage renal disease (ESRD): End-stage renal disease, on hemodialysis TTS admitted again to the hospital with metabolic encephalopathy, hyperkalemia and volume overload after missing dialysis for more than 2 weeks. Hemoglobin was 7.2 on admission. Blood pressure elevated, Volume overloaded. Patient was concerned with the idea of discharging home as he has been having repeated episode of fall home lately as well. --HD today for 3 hours with 160 dialyzer and low blood flow and plan to do daily dialysis next few days --had 2 PRBC, NEMESIO 93904 units x1 dose with dialysis on 11/04/19 --oral phosphate binder and renal cap daily --dose meds for GFR <10 --left arm nephrology percussion ( AVF) Will follow (2) Metabolic encephalopathy: (3) Non-compliance with treatment: (4) Hypertension: (5) Chronic anemia: (6) Acute hyperkalemia: Admission and Anticipated Discharge Date Admission Date: November 03, 2019 Subjective Don was seen and examined during HD this am. Overall looks better, much more awake and alert but still has some confusion. BP better, tolerating HD. Review of Systems Review of Systems: All systems reviewed & are unremarkable except as noted in HPI & below Physical Exam Constitutional: + ill appearing; no acute distress Respiratory: normal respiratory effort, lungs clear to auscultation no respiratory distress Cardiovascular: Rate/Rhythm: regular rate and regular rhythm Heart Sounds: normal S1 and normal S2 Extremities: + edema and + AV fistula Skin: Trauma: + abrasion and + laceration Neurologic: awake and + confused; no focal motor deficits Psychiatric: Orientation: alert and oriented to person Results & Data ([facility]) Vital Signs (Past 12 Hours) Vital Signs Temp Pulse Pulse Pulse Resp BP BP 11/05/19 09:00 56 L 159/66 H 11/05/19 08:51 36.5 C 57 L 11/05/19 08:39 36.4 C L 56 L 18 160/61 H 11/05/19 07:27 56 L 11/05/19 04:51 59 L 19 171/66 H 11/05/19 03:37 35.8 C L 11/04/19 23:00 55 L 11/04/19 22:58 36.3 C L 53 L 18 184/73 H Pulse Ox 11/05/19 09:00 11/05/19 08:51 11/05/19 08:39 92 11/05/19 07:27 11/05/19 04:51 97 11/05/19 03:37 11/04/19 23:00 11/04/19 22:58 95 Coding Level of Care Code 03628 Subseq Hosp Care Lvl 3 Diagnoses End-stage renal disease (ESRD) N18.6 Metabolic encephalopathy G93.41 Non-compliance with treatment Z91.19 Hypertension I10 Hypertension type: unspecified Chronic anemia D64.9 Acute hyperkalemia E87.5 (1) Hypertension Hypertension type: unspecified Qualified Code(s): I10 - Essential (primary) hypertension
[2019-11-05] MEDS: BUMETANIDE 1 MG TAB PO SCH ×2 (12:30→17:28)
[2019-11-05] MEDS: DOCUSATE SODIUM 100 MG CAP PO SCH (12:30)
[2019-11-05] MEDS: lisinopriL 40 MG TAB PO SCH (12:30)
[2019-11-05] MEDS: FERROUS SULFATE 325 MG TAB PO SCH ×2 (12:30→21:57)
[2019-11-05] MEDS: PANTOprazole 40 MG TAB PO SCH ×2 (12:30→21:58)
[2019-11-05] MEDS: DOXAZOSIN MESYLATE 1 MG TAB PO SCH (12:31)
[2019-11-05] MEDS: FOLIC ACID 1 MG TAB PO SCH (12:31)
[2019-11-05] MEDS: NEPHROCAPS PO SCH (12:31)
--- NOTE | 2019-11-05 14:44 | Electrocardiogram Report ---
Test Reason : Blood Pressure : / mmHG Vent. Rate : 059 BPM Atrial Rate : 059 BPM P-R Int : 222 ms QRS Dur : 166 ms QT Int : 516 ms P-R-T Axes : 075 089 -31 degrees QTc Int : 510 ms Sinus bradycardia with 1st degree A-V block Right bundle branch block T wave abnormality, consider inferolateral ischemia Abnormal ECG When compared with ECG of 03-NOV-2019 13:09, Criteria for Septal infarct are no longer Present Confirmed by Gus Mcclellan ([id number]) on 11/05/2019 2:44:05 PM Referred By: REFERRED SELF Confirmed By:Gus Mcclellan
--- NOTE | 2019-11-05 16:24 | Hospitalist Progress Note ---
Date of Service November 05, 2019 Assessment & Plan (1) Acute blood loss anemia: baseline Hb between 8 and 9. frequent slow upper GI bleeds 2nd to GAVE. s/p numerous EGDs by [facility] for such. had Hb of nearly 9 in late October. 7.2 on admission, has improved s/p 2 units PRBC had had melena stools at home prior to admission. assume slow GI bleeding from GAVE again. if future CBCs suggest ongoing bleeding then consult [facility]. cont PPI twice daily. (2) End-stage renal disease (ESRD): significant noncompliance with outpatient HD sessions. now with marked elevation of BUN and Creatinine. at time of admission yesterday he was sleepy/lethargic and altered consistent with uremia. he has evidence of volume overload and minimally elevated potassium. Dr Briceno from [facility] [place] nephrology consulted - s/p HD with 1L off on 11/03 and 2L off on 11/04 need to assess patient's goals for his care - he reports wanting full code status but missing nearly 2 weeks of HD is dangerous and could lead to his mortality. consider palliative care consultation while here Met with hospice prior to hospitalization and declined services at that time, will continue to address as mentation improves (3) Volume overload: 2nd to multiple missed HD sessions. does make some urine - continue his bumex. he is comfortable on small amount of NC O2. (4) Metabolic encephalopathy: 2nd to uremia and hepatic encephalopathy improving s/p HD and lactulose x2 repeat ammonia with some improvement scheduled lactulose during admission, will need to assess for need at home (5) Non-compliance with treatment: chronic issue uncertain if we will make progress with this terribly frustrated by his noncompliance consider palliative care consultation (6) Acute head injury: 2nd to fall while in ER. no acute process on CT head. no pain over the cervical spine; defer on imaging for now. (7) Fall: suspect falls at home are due to altered mental status from multiple metabolic factors including uremia, hepatic encephalopathy, and decompensated hy pothyroidism (all of the past several TSHs have been markedly elevated, likely due to noncompliance with thyroid replacement). no bony injury fortunately despite the falls. balance, walking, etc should improve with Rx of elevated ammonia, serial HD sessions, etc PT, OT pending (8) Face lacerations: repair in ED on 11/02 s/p adacel vaccine x 1. (9) Pancytopenia: chronic. due to cirrhosis? decompensated hypothyroidism? other factors? follow w/ daily CBC. (10) Diabetes mellitus, type 2: continue levemir 15 units daily. novolog sliding scale with meals/bedtime. bsgs ac/hs. (11) GAVE (gastric antral vascular ectasia): h/o recurrent GI bleeding from such. s/p EGD multiple times by [facility] for active upper GI bleeding; last 09/2019. H/H again lower today. Tx 2 units PRBCs on HD 11/03 Monitor CBC low threshold for [facility] consultation if concern for ongoing bleeding from this. Fe studies noted; defer IV venofer management to nephrology. continue PPI bid. (12) Hypertension: cont home meds (13) Hypothyroidism: decompensated for months. likely contributing to failure to thrive. will not change his synthroid dose. simply resume; reinforce compliance with such. (14) Cirrhosis: based on past CT abd/pelvis. "cardiac" cirrhosis? evidence of hepatic encephalopathy - Rx lactulose. (15) Obstructive sleep apnea: NC O2 HS (16) CAD (coronary artery disease): noted follows with [facility] cardiology continue all usual cardiac meds not a candidate for antiplatelet agents due to recurrent GI bleeding from GAVE had episode of heartburn after his HD session on 11/03 EKG stable gave tums and pepcid x 1 with resolution; likely was GERD (17) BPH (benign prostatic hyperplasia): cont alpha amberly check orthostatics to ensure not having orthostasis from such leading to falls (18) COPD (chronic obstructive pulmonary disease): no exacerbation O2 requirement 2nd to volume overload (19) DVT prophylaxis: SCDs chemical means contraindicated due to probable low-grade GI bleeding from GAVE extensive update given to over phone this evening Admission and Anticipated Discharge Date Admission Date: November 03, 2019 Subjective Per nursing, pt did not eat prior to HD or after. Nurse had pt yesterday and says he is somewhat less confused than yesterday, but still confused. Pt denies fever, SOB, chest pain, abd pain, n/v/c/d, LE pain or swelling. Pt tells me he wants to go home. Spoke with pt's . She states she is very frustrated with pt's noncompliance. She states she has to continually remind him to take him home medications even. She states she cannot convince him to go to HD once he has decided he isn't going, even though he knows what will happen when he doesn't go. She states that hospice came to the home to discuss his current health and tx plans and that pt states he is not ready to and wants to continue with tx. Review of Systems Review of Systems: Pertinent positives and negatives reviewed in HPI--all others negative Physical Exam Constitutional: WD/WN, vitals as above Eyes: normal visual arreaga by confrontation and + anicteric sclerae Neck: normal visual inspection and trachea midline Respiratory: normal respiratory effort; no respiratory distress Auscultation: + crackles; no wheezes Cardiovascular: Rate/Rhythm: regular rate and regular rhythm Gastrointestinal (Abdomen): Inspection/Auscultation: abdomen not distended Percussion/Palpation: abdomen soft; abdomen nontender Musculoskeletal: Head/Neck/Chest: normocephalic and head atraumatic negative for edema, peripheral pulses intact Skin: no rashes, warm and dry Neurologic: awake and + confused Speech / Cognition: normal speech Psychiatric: Orientation: oriented to person, oriented to place and cooperative (but mildly resistent) Results & Data Results & Data ([facility]) Vital Signs (Past 12 Hours) Vital Signs Temp Pulse Pulse Pulse Resp BP BP 11/05/19 12:15 36.4 C L 59 L 173/68 H 11/05/19 11:40 59 L 158/61 H 11/05/19 11:20 60 164/64 H 11/05/19 11:00 60 162/64 H 11/05/19 10:40 59 L 162/73 H 11/05/19 10:20 57 L 135/61 11/05/19 10:00 60 125/78 11/05/19 09:40 59 L 155/65 H 11/05/19 09:20 57 L 159/68 H 11/05/19 09:00 56 L 159/66 H 11/05/19 08:51 36.5 C 57 L 11/05/19 08:39 36.4 C L 56 L 18 160/61 H 11/05/19 07:27 56 L 11/05/19 04:51 59 L 19 171/66 H Pulse Ox 11/05/19 12:15 11/05/19 11:40 11/05/19 11:20 11/05/19 11:00 11/05/19 10:40 11/05/19 10:20 11/05/19 10:00 11/05/19 09:40 11/05/19 09:20 11/05/19 09:00 11/05/19 08:51 11/05/19 08:39 92 11/05/19 07:27 11/05/19 04:51 97 PG Care Time/CCT Total # of Minutes Spent Total Time Spent with Patient: Total time spent is greater than 50% in coordination of care (as documented) at patient's floor/unit and/or counseling patient: Coding Level of Care Code 10964 Subseq Hosp Care Lvl 3 Diagnoses Acute blood loss anemia D62 End-stage renal disease (ESRD) N18.6 Volume overload E87.70 Hypervolemia type: unspecified Metabolic encephalopathy G93.41 Non-compliance with treatment Z91.19 Acute head injury S09.90XA Encounter type: initial encounter Fall W19.XXXA Encounter type: initial encounter Face lacerations S01.81XA Encounter type: initial encounter Pancytopenia D61.818 Diabetes mellitus, type 2 E11.22; N18.6; Z79.4; Z99.2 Diabetes mellitus terminal gauger insulin use: with terminal gauger use Diabetes mellitus complication status: with kidney complications Diabetes mellitus complication detail: with chronic kidney disease Chronic kidney disease stage: on chronic dialysis GAVE (gastric antral vascular ectasia) K31.819 Hypertension I10 Hypertension type: unspecified Hypothyroidism E03.9 Hypothyroidism type: unspecified Cirrhosis K74.60 Ascites presence: unspecified Hepatic cirrhosis type: unspecified hepatic cirrhosis Obstructive sleep apnea G47.33 CAD (coronary artery disease) I25.10 Coronary Disease-Associated Artery/Lesion type: [place] artery [place] vs. transplanted heart: [place] heart Associated angina: without angina BPH (benign prostatic hyperplasia) N40.0 Lower urinary tract symptom presence: unspecified whether lower urinary tract symptoms present COPD (chronic obstructive pulmonary disease) J44.9 COPD type: unspecified COPD DVT prophylaxis Z29.9 (1) Volume overload Hypervolemia type: unspecified Qualified Code(s): E87.70 - Fluid overload, unspecified (2) Acute head injury Encounter type: initial encounter Qualified Code(s): S09.90XA - Unspecified injury of head, initial encounter (3) Fall Encounter type: initial encounter Qualified Code(s): W19.XXXA - Unspecified fall, initial encounter (4) Face lacerations Encounter type: initial encounter Qualified Code(s): S01.81XA - Laceration without foreign body of other part of head, initial encounter (5) Diabetes mellitus, type 2 Diabetes mellitus terminal gauger insulin use: with terminal gauger use Diabetes mellitus complication status: with kidney complications Diabetes mellitus complication detail: with chronic kidney disease Chronic kidney disease stage: on chronic d ialysis Qualified Code(s): E11.22 - Type 2 diabetes mellitus with diabetic chronic kidney disease; N18.6 - End stage renal disease; Z79.4 - vermin exterminator (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 (6) Hypertension Hypertension type: unspecified Qualified Code(s): I10 - Essential (primary) hypertension (7) Hypothyroidism Hypothyroidism type: unspecified Qualified Code(s): E03.9 - Hypothyroidism, unspecified (8) Cirrhosis Ascites presence: unspecified Hepatic cirrhosis type: unspecified hepatic cirrhosis Qualified Code(s): K74.60 - Unspecified cirrhosis of liver (9) CAD (coronary artery disease) Coronary Disease-Associated Artery/Lesion type: [place] artery [place] vs. transplanted heart: [place] heart Associated angina: without angina Qualified Code(s): I25.10 - Atherosclerotic heart disease of [place] coronary artery without angina pectoris (10) BPH (benign prostatic hyperplasia) Lower urinary tract symptom presence: unspecified whether lower urinary tract symptoms present Qualified Code(s): N40.0 - Benign prostatic hyperplasia without lower urinary tract symptoms (11) COPD (chronic obstructive pulmonary disease) COPD type: unspecified COPD Qualified Code(s): J44.9 - Chronic obstructive pulmonary disease, unspecified
[2019-11-05] MEDS: LACTULOSE SYRUP 20 GM/30 ML UDC PO SCH ×2 (19:25→19:26)
[2019-11-05] MEDS: INSULIN DETEMIR FLEXPEN/FLEX TOUCH 100 UNITS/ML 3ML SC SCH (21:39)
[2019-11-05] MEDS: ROSUVASTATIN CALCIUM 20 MG TAB PO SCH (21:57)
[2019-11-05] MEDS: TAMSULOSIN HCL 0.4 MG CAP PO SCH (21:57)
[2019-11-05] MEDS: CYANOCOBALAMIN 500 MCG TABLET (VITAMIN B-12) PO SCH (21:58)
[2019-11-05] MEDS: AMLODIPINE BESYLATE 5 MG TAB PO SCH (21:58)
[2019-11-05] MEDS ORDERED: LORazepam 0.5 MG/1 ML VIAL IV PRN (22:09)
[2019-11-05] MEDS ORDERED: LORazepam 0.5 MG/1 ML VIAL IV SCH (22:30)
[2019-11-06] MEDS ORDERED: LORazepam 0.5 MG/1 ML VIAL IV STA (03:04)
[2019-11-06] MEDS: LEVOTHYROXINE SODIUM 150 MCG TABLET PO SCH (06:10)
[2019-11-06] MEDS: LEVOTHYROXINE SODIUM 200 MCG TABLET PO SCH (06:10)
[2019-11-06 06:44] LABS: Basophils # (auto) 0.06 K/uL (0-0.2); Basophils % (auto) 1.8 %; Eosinophils # (auto) 0.22 K/uL (0-0.5); Eosinophils % (auto) 6.7 %; Hematocrit (blood only) 28.3 % (42-52); Hemoglobin 8.9 g/dL (14.0-18.0); Lymphocytes # (auto) 0.48 K/uL (1.2-3.4); Lymphocytes % (auto) 14.6 %; Mean Corpuscular Hemoglobin 29.3 pg (25-34); Mean Corpuscular Hgb Conc 31.4 g/dL (32-36); Mean Corpuscular Volume 93.1 fL (80-100); Mean Platelet Volume 12.1 fL (7.4-10.4); Monocytes # (auto) 0.33 K/uL (0.11-0.59); Monocytes % (auto) 10.1 %; Neutrophils # (auto) 2.19 K/uL (1.4-6.5); Neutrophils % (auto) 66.8 %; Platelet Count 95 K/uL (130-400); RDW Standard Deviation 58.2 fL (36.4-46.3); Red Blood Count 3.04 M/uL (4.7-6.1); White Blood Count 3.28 K/uL (4.8-10.8)
[2019-11-06 07:06] LABS: Calcium 9.6 mg/dl (8.5-10.1); Creatinine Clr Calc Pharmacy 8.1 ml/min; Est GFR (African American) 5.7; Est GFR (Non-African American) 4.9; Potassium 4.2 mmol/L (3.5-5.1)
[2019-11-06] MEDS: PANTOprazole 40 MG TAB PO SCH ×3 (07:52→23:16)
[2019-11-06] MEDS: INSULIN ASPART 100 UNITS/ML 3 ML PEN SC SCH ×3 (08:12→17:08)
[2019-11-06] MEDS: LABETALOL HCL 200 MG TAB PO SCH ×3 (08:15→23:16)
[2019-11-06] MEDS: BUMETANIDE 1 MG TAB PO SCH ×2 (08:15→18:20)
[2019-11-06] MEDS: HydrALAZINE TAB 50 MG TAB PO SCH ×3 (08:15→18:20)
[2019-11-06] MEDS: CALCIUM ACETATE 667 MG CAP/TAB PO SCH ×4 (08:16→18:21)
[2019-11-06] MEDS: LACTULOSE SYRUP 20 GM/30 ML UDC PO SCH (09:00)
--- NOTE | 2019-11-06 11:59 | Nephrology Progress Note ---
Date of Service November 06, 2019 Assessment & Plan (1) End-stage renal disease (ESRD): End-stage renal disease, on hemodialysis TTS admitted again to the hospital with metabolic encephalopathy, hyperkalemia and volume overload after missing dialysis for more than 2 weeks. Hemoglobin was 7.2 on admission. Blood pressure elevated, Volume overloaded. Patient was concerned with the idea of discharging home as he has been having repeated episode of fall home lately as well. --HD today for 4 hours and again tomorrow as his regular schedule --received 2 PRBC, NEMESIO 36542 units x1 dose with dialysis on 11/04/19, hemoglobin has been stable --oral phosphate binder and renal cap daily --dose meds for GFR <10 --left arm nephrology percussion ( AVF) Will follow (2) Metabolic encephalopathy: (3) Non-compliance with treatment: (4) Hypertension: (5) Chronic anemia: (6) Acute hyperkalemia: Admission and Anticipated Discharge Date Admission Date: November 03, 2019 Wayne Leonardo was seen examined in his room this morning. He continues to be minimally responsive and confused. Review of Systems Review of Systems: All systems reviewed & are unremarkable except as noted in HPI & below Physical Exam Constitutional: + ill appearing, + altered mental status and + lethargic; no acute distress Neck: trachea midline Respiratory: normal respiratory effort, lungs clear to auscultation normal respiratory effort; no respiratory distress and no cough Auscultation: + crackles Cardiovascular: Rate/Rhythm: regular rate and regular rhythm Heart Sounds: normal S1 and normal S2 Extremities: + edema and + AV fistula Skin: Trauma: + abrasion and + laceration Neurologic: awake, + confused and + obtunded; no focal motor deficits Psychiatric: Orientation: alert and oriented to person Results & Data ([facility]) Vital Signs (Past 12 Hours) Vital Signs Temp Pulse Pulse Resp BP Pulse Ox 11/06/19 08:15 35.8 C L 82 18 189/74 H 95 11/06/19 03:43 68 11/06/19 03:24 35.9 C L 66 20 190/62 H 97 PG Care Time/CCT Total # of Minutes Spent Total Time Spent with Patient: Total time spent is greater than 50% in coordination of care (as documented) at patient's floor/unit and/or counseling patient: Coding Level of Care Code 35976 Subseq Hosp Care Lvl 3 Diagnoses End-stage renal disease (ESRD) N18.6 Metabolic encephalopathy G93.41 Non-compliance with treatment Z91.19 Hypertension I10 Hypertension type: unspecified Chronic anemia D64.9 Acute hyperkalemia E87.5 (1) Hypertension Hypertension type: unspecified Qualified Code(s): I10 - Essential (primary) hypertension
[2019-11-06] MEDS: NEPHROCAPS PO SCH ×2 (14:40→16:31)
[2019-11-06] MEDS: DOCUSATE SODIUM 100 MG CAP PO SCH ×2 (14:41→16:31)
[2019-11-06] MEDS: lisinopriL 40 MG TAB PO SCH (14:42)
[2019-11-06] MEDS: FERROUS SULFATE 325 MG TAB PO SCH ×4 (14:42→23:15)
[2019-11-06] MEDS: FOLIC ACID 1 MG TAB PO SCH ×2 (14:43→16:30)
[2019-11-06] MEDS: DOXAZOSIN MESYLATE 1 MG TAB PO SCH (14:43)
--- NOTE | 2019-11-06 16:12 | Hospitalist Progress Note ---
Date of Service November 06, 2019 Assessment & Plan (1) Acute blood loss anemia: baseline Hb between 8 and 9. frequent slow upper GI bleeds 2nd to GAVE. s/p numerous EGDs by [facility] for such. had Hb of nearly 9 in late October. 7.2 on admission, has improved s/p 2 units PRBC had had melena stools at home prior to admission. assume slow GI bleeding from GAVE again, however seems to have stopped given Hb stable if future CBCs suggest ongoing bleeding then consult [facility] GI. cont PPI twice daily. (2) End-stage renal disease (ESRD): significant noncompliance with outpatient HD sessions. now with marked elevation of BUN and Creatinine. at time of admission yesterday he was sleepy/lethargic and altered consistent with uremia. he has evidence of volume overload and minimally elevated potassium. Dr Briceno from [facility] nephrology consulted - s/p HD with 1L off on 11/03 and 2L off on 11/04 and 11/05 need to assess patient's goals for his care - he reports wanting full code status but missing nearly 2 weeks of HD is dangerous and could lead to his mortality. consider palliative care consultation while here Met with hospice prior to hospitalization and declined services at that time, will continue to address as mentation improves (3) Volume overload: 2nd to multiple missed HD sessions. does make some urine - continue his bumex. he is comfortable on small amount of NC O2. (4) Metabolic encephalopathy: 2nd to uremia and hepatic encephalopathy improving s/p HD and lactulose x2 repeat ammonia with ongoing improvement scheduled lactulose during admission, will need to assess for need at home (5) Non-compliance with treatment: chronic issue uncertain if we will make progress with this terribly frustrated by his noncompliance consider palliative care consultation (6) Acute head injury: 2nd to fall while in ER. no acute process on CT head. no pain over the cervical spine; defer on imaging for now. (7) Fall: suspect falls at home are due to altered mental status from multiple metabolic factors including uremia, hepatic encephalopathy, and decompensated hypothyroidism (all of the past several TSHs have been markedly elevated, likely due to noncompliance with thyroid replacement). no bony injury fortunately despite the falls. balance, walking, etc should improve with Rx of elevated ammonia, serial HD sessions, etc PT, OT pending ability to participate (8) Face lacerations: repair in ED on 11/02 s/p adacel vaccine x 1. (9) Pancytopenia: chronic. due to cirrhosis? decompensated hypothyroidism? other factors? follow w/ daily CBC. (10) Diabetes mellitus, type 2: continue levemir 15 units daily. novolog sliding scale with meals/bedtime. bsgs ac/hs. (11) GAVE (gastric antral vascular ectasia): h/o recurrent GI bleeding from such. s/p EGD multiple times by [facility] for active upper GI bleeding; last 09/2019. H/H again lower today. Tx 2 units PRBCs on HD 11/03 Monitor CBC low threshold for [facility] GI consultation if concern for ongoing bleeding from this. Fe studies noted; defer IV venofer management to nephrology. continue PPI bid. (12) Hypertension: cont home meds (13) Hypothyroidism: decompensated for months. likely contributing to failure to thrive. will not change his synthroid dose. simply resume; reinforce compliance with such. (14) Cirrhosis: based on past CT abd/pelvis. "cardiac" cirrhosis? evidence of hepatic encephalopathy - Rx lactulose. (15) Obstructive sleep apnea: NC O2 HS (16) CAD (coronary artery disease): noted follows with [facility] cardiology continue all usual cardiac meds not a candidate for antiplatelet agents due to recurrent GI bleeding from GAVE had episode of heartburn after his HD session on 11/03 EKG stable gave tums and pepcid x 1 with resolution; likely was GERD (17) BPH (benign prostatic hyperplasia): cont alpha amberly check orthostatics to ensure not having orthostasis from such leading to falls (18) COPD (chronic obstructive pulmonary disease): no exacerbation O2 requirement 2nd to volume overload (19) DVT prophylaxis: SCDs chemical means contraindicated due to probable low-grade GI bleeding from GAVE extensive update given to over phone this evening Admission and Anticipated Discharge Date Admission Date: November 03, 2019 Subjective Pt is still obtunded. He had a low BS this AM in the 60s. He did eat at that time, which is improved from yesterday. Difficult to answer questions this AM, but denies pain. surgical aides teacher at bedside states pt has had no complaints other than wanting to go home. Review of Systems Review of Systems: Unable to obtain full ROS due to pt's decreased mentation Physical Exam Constitutional: WD/WN, vitals as above Eyes: normal visual arreaga by confrontation and + anicteric sclerae Neck: normal visual inspection and trachea midline Respiratory: normal respiratory effort; no respiratory distress Auscultation: + crackles; no wheezes Cardiovascular: Rate/Rhythm: regular rate and regular rhythm Gastrointestinal (Abdomen): Inspection/Auscultation: abdomen not distended Percussion/Palpation: abdomen soft; abdomen nontender Musculoskeletal: Head/Neck/Chest: normocephalic and head atraumatic Skin: no rashes, warm and dry Neurologic: + confused; + not awake Speech / Cognition: normal speech Psychiatric: Orientation: oriented to person; + not alert (difficult to arou se) Results & Data Results & Data ([facility]) Vital Signs (Past 12 Hours) Vital Signs Temp Pulse Pulse Pulse Resp BP BP 11/06/19 15:16 36.5 C 55 L 176/56 H 11/06/19 15:03 87 11/06/19 14:40 36.5 C 65 16 146/68 H 11/06/19 13:40 87 167/76 H 11/06/19 13:20 65 178/73 H 11/06/19 13:00 70 174/85 H 11/06/19 12:40 68 182/76 H 11/06/19 12:20 65 171/86 H 11/06/19 12:00 65 171/86 H 11/06/19 11:40 62 178/92 H 11/06/19 11:20 63 168/70 H 11/06/19 11:00 70 168/74 H 11/06/19 10:51 66 171/76 H 11/06/19 10:30 36.5 C 63 11/06/19 08:15 35.8 C L 82 18 189/74 H 11/06/19 07:00 83 Pulse Ox 11/06/19 15:16 11/06/19 15:03 11/06/19 14:40 97 11/06/19 13:40 11/06/19 13:20 11/06/19 13:00 11/06/19 12:40 11/06/19 12:20 11/06/19 12:00 11/06/19 11:40 11/06/19 11:20 11/06/19 11:00 11/06/19 10:51 11/06/19 10:30 11/06/19 08:15 95 11/06/19 07:00 PG Care Time/CCT Total # of Minutes Spent Total Time Spent with Patient: Total time spent is greater than 50% in coordination of care (as documented) at patient's floor/unit and/or counseling patient: Coding Level of Care Code 54982 Subseq Hosp Care Lvl 3 Diagnoses Acute blood loss anemia D62 End-stage renal disease (ESRD) N18.6 Volume overload E87.70 Hypervolemia type: unspecified Metabolic encephalopathy G93.41 Non-compliance with treatment Z91.19 Acute head injury S09.90XA Encounter type: initial encounter Fall W19.XXXA Encounter type: initial encounter Face lacerations S01.81XA Encounter type: initial encounter Pancytopenia D61.818 Diabetes mellitus, type 2 E11.22; N18.6; Z79.4; Z99.2 Diabetes mellitus termite control representative insulin use: with jail use Diabetes mellitus complication status: with kidney complications Diabetes mellitus complication detail: with chronic kidney disease Chronic kidney disease stage: on chronic dialysis GAVE (gastric antral vascular ectasia) K31.819 Hypertension I10 Hypertension type: unspecified Hypothyroidism E03.9 Hypothyroidism type: unspecified Cirrhosis K74.60 Ascites presence: unspecified Hepatic cirrhosis type: unspecified hepatic cirrhosis Obstructive sleep apnea G47.33 CAD (coronary artery disease) I25.10 Coronary Disease-Associated Artery/Lesion type: [place] artery [place] vs. transplanted heart: [place] heart Associated angina: without angina BPH (benign prostatic hyperplasia) N40.0 Lower urinary tract symptom presence: unspecified whether lower urinary tract symptoms present COPD (chronic obstructive pulmonary disease) J44.9 COPD type: unspecified COPD DVT prophylaxis Z29.9 (1) Volume overload Hypervolemia type: unspecified Qualified Code(s): E87.70 - Fluid overload, unspecified (2) Acute head injury Encounter type: initial encounter Qualified Code(s): S09.90XA - Unspecified injury of head, initial encounter (3) Fall Encounter type: initial encounter Qualified Code(s): W19.XXXA - Unspecified fall, initial encounter (4) Face lacerations Encounter type: initial encounter Qualified Code(s): S01.81XA - Laceration without foreign body of other part of head, initial encounter (5) Diabetes mellitus, type 2 Diabetes mellitus termite control representative insulin use: with termite control representative use Diabetes mellitus complication status: with kidney complications Diabetes mellitus complication detail: with chronic kidney disease Chronic kidney disease stage: on chronic dialysis Qualified Code(s): E11.22 - Type 2 diabetes mellitus with diabetic chronic kidney disease; N18.6 - End stage renal disease; Z79.4 - FDC (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 (6) Hypertension Hypertension type: unspecified Qualified Code(s): I10 - Essential (primary) hypertension (7) Hypothyroidism Hypothyroidism type: unspecified Qualified Code(s): E03.9 - Hypothyroidism, unspecified (8) Cirrhosis Ascites presence: unspecified Hepatic cirrhosis type: unspecified hepatic cirrhosis Qualified Code(s): K74.60 - Unspecified cirrhosis of liver (9) CAD (coronary artery disease) Coronary Disease-Associated Artery/Lesion type: [place] artery [place] vs. transplanted heart: [place] heart Associated angina: without angina Qualified Code(s): I25.10 - Atherosclerotic heart disease of [place] coronary artery without angina pectoris (10) BPH (benign prostatic hyperplasia) Lower urinary tract symptom presence: unspecified whether lower urinary tract symptoms present Qualified Code(s): N40.0 - Benign prostatic hyperplasia without lower urinary tract symptoms (11) COPD (chronic obstructive pulmonary disease) COPD type: unspecified COPD Qualified Code(s): J44.9 - Chronic obstructive pulmonary disease, unspecified
[2019-11-06] MEDS ORDERED: HydrALAZINE HCL 20 MG/ML VIAL IV STA (18:22)
[2019-11-06] MEDS ORDERED: LACTULOSE 200 GM, WATER, STERILE IRRIG 700 ML, BARCODE IDENTIFIER 1 EA PR ONE (18:23)
[2019-11-06] MEDS: CYANOCOBALAMIN 500 MCG TABLET (VITAMIN B-12) PO SCH ×2 (21:29→23:17)
[2019-11-06] MEDS: TAMSULOSIN HCL 0.4 MG CAP PO SCH ×2 (21:31→23:16)
[2019-11-06] MEDS: AMLODIPINE BESYLATE 5 MG TAB PO SCH ×2 (21:31→23:16)
[2019-11-06] MEDS: ROSUVASTATIN CALCIUM 20 MG TAB PO SCH ×2 (21:32→23:15)
[2019-11-07] MEDS ORDERED: HydrALAZINE HCL 20 MG/ML VIAL IV STA (04:42)
[2019-11-07] MEDS: LEVOTHYROXINE SODIUM 200 MCG TABLET PO SCH ×2 (05:52→05:56)
[2019-11-07] MEDS: LEVOTHYROXINE SODIUM 150 MCG TABLET PO SCH ×2 (05:52→05:56)
[2019-11-07 07:47] LABS: Basophils # (auto) 0.03 K/uL (0-0.2); Basophils % (auto) 0.7 %; Eosinophils # (auto) 0.19 K/uL (0-0.5); Eosinophils % (auto) 4.3 %; Hematocrit (blood only) 31.1 % (42-52); Hemoglobin 9.7 g/dL (14.0-18.0); Immature Granulocytes # (auto) 0.01 K/uL (0.00-0.02); Immature Granulocytes % (auto) 0.2 %; Lymphocytes # (auto) 0.38 K/uL (1.2-3.4); Lymphocytes % (auto) 8.5 %; Mean Corpuscular Hemoglobin 29.4 pg (25-34); Mean Corpuscular Hgb Conc 31.2 g/dL (32-36); Mean Corpuscular Volume 94.2 fL (80-100); Mean Platelet Volume 11.4 fL (7.4-10.4); Monocytes # (auto) 0.37 K/uL (0.11-0.59); Monocytes % (auto) 8.3 %; Neutrophils # (auto) 3.48 K/uL (1.4-6.5); Platelet Count 101 K/uL (130-400); RDW Coefficient of Variation 16.4 % (11.5-14.5); RDW Standard Deviation 56.7 fL (36.4-46.3); White Blood Count 4.46 K/uL (4.8-10.8)
[2019-11-07 08:27] LABS: BUN Creatinine Ratio 8.5 (10-20); Calcium 9.4 mg/dl (8.5-10.1); Creatinine Clr Calc Pharmacy 10.4 ml/min; Est GFR (African American) 8.6; Est GFR (Non-African American) 7.4
[2019-11-07] MEDS: HydrALAZINE TAB 50 MG TAB PO SCH ×4 (09:13→15:49)
[2019-11-07] MEDS: CALCIUM ACETATE 667 MG CAP/TAB PO SCH ×4 (09:13→18:09)
[2019-11-07] MEDS: DOCUSATE SODIUM 100 MG CAP PO SCH (09:14)
[2019-11-07] MEDS: BUMETANIDE 1 MG TAB PO SCH ×2 (09:14→18:09)
[2019-11-07] MEDS: LACTULOSE SYRUP 20 GM/30 ML UDC PO SCH (09:14)
[2019-11-07] MEDS: LABETALOL HCL 200 MG TAB PO SCH ×2 (09:14→20:00)
[2019-11-07] MEDS: FERROUS SULFATE 325 MG TAB PO SCH ×2 (09:14→20:00)
[2019-11-07] MEDS: lisinopriL 40 MG TAB PO SCH (09:15)
[2019-11-07] MEDS: PANTOprazole 40 MG TAB PO SCH ×2 (09:15→20:00)
[2019-11-07] MEDS: HydrALAZINE HCL 20 MG/ML VIAL IV PRN ×2 (10:11→15:50)
[2019-11-07] MEDS ORDERED: EPOETIN ALFA 20,000 UNITS/ML VIAL IV ONE (11:51)
--- NOTE | 2019-11-07 11:53 | Nephrology Progress Note ---
Date of Service November 07, 2019 Assessment & Plan (1) End-stage renal disease (ESRD): HD TTS. Non-compliant with treatment. Primary line and frame poler: Dr. Briceno. Admitted with mental status changes, hyperkalemia and volume overload. Had missed >2 weeks of HD prior to admission. HD orders entered into EMR and reviewed with HD nurse. Rx 4 hours. UF goal 1 L. L arm AVF functioning appropriately. Medications appropriately dosed for IHD. Renal MVI + PO4 binder held while NPO. (2) Metabolic encephalopathy: Lorazepam DC'd. CT head reviewed. Lactulose has been provided for HE. Additional clearance with HD. No infection identified. Unfortunately, prognosis is overall very poor. (3) Hypertension: Hopeful to see continued improvement with UF. Remains on amlodipine 10 mg daily, hydralazine 50 mg TID, doxazosin 1 daily, lisinopril 40, and labetalol 200 mg BID. Labetalol may be increased as needed. Hydralazine provided PRN. (4) Chronic anemia: History of GAVE requiring multiple admissions for APC. Received 2 PRBC on admission. NEMESIO 23966 units x1 dose on 11/04/19. Additional 71045 units of EPO ordered for today. Admission and Anticipated Discharge Date Admission Date: November 03, 2019 Subjective Darnell's mental status remains significantly altered. Reported agitation overnight noted. Tolerated HD yesterday without complications, net UF 2 L. Augie was minimally responsive during my evaluation this AM. Did not open eyes. Does not respond appropriately to touch or voice. 1:1 present at bedside. Afebrile. BP remains accelerated. Review of Systems Review of Systems: Unobtainable due to cognitive status Physical Exam Constitutional: + ill appearing, + thin and + behavioral limitations Eyes: + anicteric sclerae ENMT: Mouth: + dry oral mucous membranes Neck: normal visual inspection and trachea midline Respiratory: normal respiratory effort Cardiovascular: Heart Sounds: normal S1, normal S2 and + murmur Extremities: no edema Musculoskeletal: Extremities: no cyanosis and no clubbing Skin: no rashes Neurologic: Motor/Sensory: no tremor Results & Data ([facility]) Vital Signs (Past 12 Hours) Vital Signs Temp Pulse Pulse Resp BP Pulse Ox 11/07/19 07:33 36.5 C 70 18 185/69 H 99 11/07/19 07:00 72 11/07/19 04:00 36.4 C L 72 20 208/81 H 97 Laboratory Results Laboratory Results - last 24 hr 11/06/19 11/06/19 11/06/19 12:18 15:12 16:32 WBC RBC Hgb Hct MCV MCH MCHC RDW Std Deviation RDW Coeff of Jose C Plt Count MPV Immature Gran % (Auto) Neut % (Auto) Lymph % (Auto) [place] % (Auto) Eos % (Auto) Baso % (Auto) Immature Gran # (Auto) Neut # (Auto) Lymph # (Auto) [place] # (Auto) Eos # (Auto) Baso # (Auto) Sodium Potassium Chloride Carbon Dioxide Anion Gap BUN Creatinine Est Cr Clr Drug Dosing Est GFR ( Amer) Est GFR (Non-Af Amer) BUN/Creatinine Ratio Glucose POC Glucose 83 73 Calcium Ammonia Hep Bs Antigen Neg 11/07/19 11/07/19 11/07/19 07:33 07:38 07:38 WBC 4.46 L RBC 3.30 L Hgb 9.7 L Hct 31.1 L MCV 94.2 MCH 29.4 MCHC 31.2 L RDW Std Deviation 56.7 H RDW Coeff of Jose C 16.4 H Plt Count 101 L MPV 11.4 H Immature Gran % (Auto) 0.2 Neut % (Auto) 78.0 Lymph % (Auto) 8.5 [place] % (Auto) 8.3 Eos % (Auto) 4.3 Baso % (Auto) 0.7 Immature Gran # (Auto) 0.01 Neut # (Auto) 3.48 Lymph # (Auto) 0.38 L [place] # (Auto) 0.37 Eos # (Auto) 0.19 Baso # (Auto) 0.03 Sodium 140 Potassium 4.0 Chloride 103 Carbon Dioxide 26 Anion Gap 11.0 BUN 55 H Creatinine 6.56 H* D Est Cr Clr Drug Dosing 10.4 Est GFR ( Amer) 8.6 Est GFR (Non-Af Amer) 7.4 BUN/Creatinine Ratio 8.5 L Glucose 71 POC Glucose 74 Calcium 9.4 Ammonia Hep Bs Antigen 11/07/19 07:38 WBC RBC Hgb Hct MCV MCH MCHC RDW Std Deviation RDW Coeff of Jose C Plt Count MPV Immature Gran % (Auto) Neut % (Auto) Lymph % (Auto) [place] % (Auto) Eos % (Auto) Baso % (Auto) Immature Gran # (Auto) Neut # (Auto) Lymph # (Auto) [place] # (Auto) Eos # (Auto) Baso # (Auto) Sodium Potassium Chloride Carbon Dioxide Anion Gap BUN Creatinine Est Cr Clr Drug Dosing Est GFR ( Amer) Est GFR (Non-Af Amer) BUN/Creatinine Ratio Glucose POC Glucose Calcium Ammonia 29.6 Hep Bs Antigen PG Care Time/CCT Total # of Minutes Spent Total Time Spent with Patient: Total time spent is greater than 50% in coordination of care (as documented) at patient's floor/unit and/or counseling patient: Coding Level of Care Code 12541 Subseq Hosp Care Lvl 3 Diagnoses End-stage renal disease (ESRD) N18.6 Metabolic encephalopathy G93.41 Hypertension I10 Hypertension type: unspecified Chronic anemia D64.9 (1) Hypertension Hypertension type: unspecified Qualified Code(s): I10 - Essential (primary) hypertension
[2019-11-07] MEDS: DOXAZOSIN MESYLATE 1 MG TAB PO SCH (12:50)
--- NOTE | 2019-11-07 15:01 | Hospitalist Progress Note ---
Date of Service November 07, 2019 Assessment & Plan (1) Acute blood loss anemia: baseline Hb between 8 and 9. frequent slow upper GI bleeds 2nd to GAVE. s/p numerous EGDs by [facility] for such. had Hb of nearly 9 in late October. 7.2 on admission, has improved s/p 2 units PRBC had had melena stools at home prior to admission. assume slow GI bleeding from GAVE again, however seems to have stopped given Hb stable if future CBCs suggest ongoing bleeding then consult [facility]. cont PPI twice daily. (2) End-stage renal disease (ESRD): significant noncompliance with outpatient HD sessions. now with marked elevation of BUN and Creatinine. at time of admission yesterday he was sleepy/lethargic and altered consistent with uremia. he has evidence of volume overload and minimally elevated potassium. Dr Briceno from [facility] nephrology consulted - s/p HD with 1L off on 11/03 and 2L off on 11/04 and 11/05 need to assess patient's goals for his care - he reports wanting full code status but missing nearly 2 weeks of HD is dangerous and could lead to his mortality. consider palliative care consultation while here Met with hospice prior to hospitalization and declined services at that time, will continue to address as mentation improves (3) Volume overload: 2nd to multiple missed HD sessions. does make some urine - continue his bumex. he is comfortable on small amount of NC O2. (4) Metabolic encephalopathy: 2nd to uremia and hepatic encephalopathy improving s/p HD and lactulose x2 repeat ammonia with ongoing improvement scheduled lactulose during admission, will need to assess for need at home Likely currently an element of ativan stacking given multiple doses administered two nights ago in the setting of renal failure Improving today No further ativan to be given (5) Non-compliance with treatment: chronic issue uncertain if we will make progress with this terribly frustrated by his noncompliance consider palliative care consultation (6) Acute head injury: 2nd to fall while in ER. no acute process on CT head. no pain over the cervical spine; defer on imaging for now. (7) Fall: suspect falls at home are due to altered mental status from multiple metabolic factors including uremia, hepatic encephalopathy, and decompensated hypothyroidism (all of the past several TSHs have been markedly elevated, likely due to noncompliance with thyroid replacement). no bony injury fortunately despite the falls. balance, walking, etc should improve with Rx of elevated ammonia, serial HD sessions, etc PT, OT pending ability to participate (8) Face lacerations: repair in ED on 11/02 s/p adacel vaccine x 1. (9) Pancytopenia: chronic. due to cirrhosis? decompensated hypothyroidism? other factors? follow w/ daily CBC. (10) Diabetes mellitus, type 2: continue levemir 15 units daily. novolog sliding scale with meals/bedtime. bsgs ac/hs. (11) GAVE (gastric antral vascular ectasia): h/o recurrent GI bleeding from such. s/p EGD multiple times by [facility] for active upper GI bleeding; last 09/2019. H/H again lower today. Tx 2 units PRBCs on HD 11/03 Monitor CBC low threshold for [facility] consultation if concern for ongoing bleeding from this. Fe studies noted; defer IV venofer management to nephrology. continue PPI bid. (12) Hypertension: cont home meds (13) Hypothyroidism: decompensated for months. likely contributing to failure to thrive. will not change his synthroid dose. simply resume; reinforce compliance with such. (14) Cirrhosis: based on past CT abd/pelvis. "cardiac" cirrhosis? evidence of hepatic encephalopathy - Rx lactulose. Ammonia WNL (15) Obstructive sleep apnea: NC O2 HS (16) CAD (coronary artery disease): noted follows with [facility] cardiology continue all usual cardiac meds not a candidate for antiplatelet agents due to recurrent GI bleeding from GAVE had episode of heartburn after his HD session on 11/03 EKG stable gave tums and pepcid x 1 with resolution; likely was GERD (17) BPH (benign prostatic hyperplasia): cont alpha amberly check orthostatics to ensure not having orthostasis from such leading to falls (18) COPD (chronic obstructive pulmonary disease): no exacerbation O2 requirement 2nd to volume overload (19) DVT prophylaxis: SCDs chemical means contraindicated due to probable low-grade GI bleeding from GAVE extensive update given to over phone this evening Admission and Anticipated Discharge Date Admission Date: November 03, 2019 Subjective Pt is still altered, but interacting more than prior. He did not eat or take meds this AM. Shakes his head no when asked if he has pain. No v/d, pain concerns from nursing. Review of Systems Review of Systems: Unable to obtain full ROS due to pt's decreased mentation Physical Exam Constitutional: WD/WN, vitals as above Eyes: normal visual arreaga by confrontation and + anicteric sclerae Neck: normal visual inspection and trachea midline Respiratory: normal respiratory effort; no respiratory distress Auscultation: + crackles; no wheezes Cardiovascular: Rate/Rhythm: regular rate and regular rhythm Gastrointestinal (Abdomen): Inspection/Auscultation: abdomen not distended Percussion/Palpation: abdomen soft; abdomen nontender Musculoskeletal: Head/Neck/Chest: normocephalic and head atraumatic Skin: no rashes, warm and dry Neurologic: awake (opens eyes to name and gentle rubbing of shoulder or feet) and + confused Psychiatric: Orientation: oriented to person; + not alert (easier to arouse) Results & Data Results & Data ([facility]) Vital Signs (Past 12 Hours) Vital Signs Temp Pulse Pulse Resp BP Pulse Ox 11/07/19 14:43 36.4 C L 69 18 213/68 H 93 11/07/19 07:33 36.5 C 70 18 185/69 H 99 11/07/19 07:00 72 11/07/19 04:00 36.4 C L 72 20 208/81 H 97 PG Care Time/CCT Total # of Minutes Spent Total Time Spent with Patient: Total time spent is greater than 50% in coordination of care (as documented) at patient's floor/unit and/or counseling patient: Coding Level of Care Code 29746 Subseq Hosp Care Lvl 3 Diagnoses Acute blood loss anemia D62 End-stage renal disease (ESRD) N18.6 Volume overload E87.70 Hypervolemia type: unspecified Metabolic encephalopathy G93.41 Non-compliance with treatment Z91.19 Acute head injury S09.90XA Encounter type: initial encounter Fall W19.XXXA Encounter type: initial encounter Face lacerations S01.81XA Encounter type: initial encounter Pancytopenia D61.818 Diabetes mellitus, type 2 E11.22; N18.6; Z79.4; Z99.2 Diabetes mellitus termite treater helper insulin use: with jail use Diabetes mellitus complication status: with kidney complications Diabetes mellitus complication detail: with chronic kidney disease Chronic kidney disease stage: on chronic dialysis GAVE (gastric antral vascular ectasia) K31.819 Hypertension I10 Hypertension type: unspecified Hypothyroidism E03.9 Hypothyroidism type: unspecified Cirrhosis K74.60 Ascites presence: unspecified Hepatic cirrhosis type: unspecified hepatic cirrhosis Obstructive sleep apnea G47.33 CAD (coronary artery disease) I25.10 Coronary Disease-Associated Artery/Lesion type: [place] artery [place] vs. transplanted heart: [place] heart Associated angina: without angina BPH (benign prostatic hyperplasia) N40.0 Lower urinary tract symptom presence: unspecified whether lower urinary tract symptoms present COPD (chronic obstructive pulmonary disease) J44.9 COPD type: unspecified COPD DVT prophylaxis Z29.9 (1) Volume overload Hypervolemia type: unspecified Qualified Code(s): E87.70 - Fluid overload, unspecified (2) Acute head injury Encounter type: initial encounter Qualified Code(s): S09.90XA - Unspecified injury of head, initial encounter (3) Fall Encounter type: initial encounter Qualified Code(s): W19.XXXA - Unspecified fall, initial encounter (4) Face lacerations Encounter type: initial encounter Qualified Code(s): S01.81XA - Laceration without foreign body of other part of head, initial encounter (5) Diabetes mellitus, type 2 Diabetes mellitus termite treater helper insulin use: with jail use Diabetes mellitus complication status: with kidney complications Diabetes mellitus complication detail: with chronic kidney disease Chronic kidney disease stage: on chronic dialysis Qualified Code(s): E11.22 - Type 2 diabetes mellitus with diabetic chronic kidney disease; N18.6 - End stage renal disease; Z79.4 - termite exterminator helper (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 (6) Hypertension Hypertension type: unspecified Qualified Code(s): I10 - Essential (primary) hypertension (7) Hypothyroidism Hypothyroidism type: unspecified Qualified Code(s): E03.9 - Hypothyroidism, unspecified (8) Cirrhosis Ascites presence: unspecified Hepatic cirrhosis type: unspecified hepatic cirrhosis Qualified Code(s): K74.60 - Unspecified cirrhosis of liver (9) CAD (coronary artery disease) Coronary Disease-Associated Artery/Lesion type: [place] artery [place] vs. transplanted heart: [place] heart Associated angina: without angina Qualified Code(s): I25.10 - Atherosclerotic heart disease of [place] coronary artery without angina pectoris (10) BPH (benign prostatic hyperplasia) Lower urinary tract symptom presence: unspecified whether lower urinary tract symptoms present Qualified Code(s): N40.0 - Benign prostatic hyperplasia without lower urinary tract symptoms (11) COPD (chronic obstructive pulmonary disease) COPD type: unspecified COPD Qualified Code(s): J44.9 - Chronic obstructive pulmonary disease, unspecified
[2019-11-07] MEDS: FOLIC ACID 1 MG TAB PO SCH (15:36)
[2019-11-07] MEDS: TAMSULOSIN HCL 0.4 MG CAP PO SCH (20:00)
[2019-11-07] MEDS: CYANOCOBALAMIN 500 MCG TABLET (VITAMIN B-12) PO SCH (20:00)
[2019-11-07] MEDS: ROSUVASTATIN CALCIUM 20 MG TAB PO SCH (20:00)
[2019-11-07] MEDS: AMLODIPINE BESYLATE 5 MG TAB PO SCH (20:00)
[2019-11-08] MEDS: LEVOTHYROXINE SODIUM 150 MCG TABLET PO SCH (06:14)
[2019-11-08] MEDS: LEVOTHYROXINE SODIUM 200 MCG TABLET PO SCH (06:14)
[2019-11-08] MEDS: HydrALAZINE HCL 20 MG/ML VIAL IV PRN ×2 (06:25→23:31)
[2019-11-08 06:42] LABS: Basophils # (auto) 0.03 K/uL (0-0.2); Basophils % (auto) 0.8 %; Eosinophils # (auto) 0.15 K/uL (0-0.5); Hematocrit (blood only) 26.3 % (42-52); Hemoglobin 8.2 g/dL (14.0-18.0); Lymphocytes # (auto) 0.38 K/uL (1.2-3.4); Lymphocytes % (auto) 10.1 %; Mean Corpuscular Hemoglobin 29.5 pg (25-34); Mean Corpuscular Hgb Conc 31.2 g/dL (32-36); Mean Corpuscular Volume 94.6 fL (80-100); Mean Platelet Volume 11.5 fL (7.4-10.4); Monocytes # (auto) 0.54 K/uL (0.11-0.59); Monocytes % (auto) 14.4 %; Neutrophils # (auto) 2.65 K/uL (1.4-6.5); Neutrophils % (auto) 70.7 %; Platelet Count 113 K/uL (130-400); RDW Coefficient of Variation 16.1 % (11.5-14.5); Red Blood Count 2.78 M/uL (4.7-6.1); White Blood Count 3.75 K/uL (4.8-10.8)
[2019-11-08 07:17] LABS: BUN Creatinine Ratio 7.6 (10-20); Creatinine Clr Calc Pharmacy 10.8 ml/min; Est GFR (African American) 8.2; Potassium 3.9 mmol/L (3.5-5.1)
[2019-11-08] MEDS: HydrALAZINE TAB 50 MG TAB PO SCH ×3 (08:41→16:33)
[2019-11-08] MEDS: DOCUSATE SODIUM 100 MG CAP PO SCH (08:41)
[2019-11-08] MEDS: LABETALOL HCL 200 MG TAB PO SCH ×2 (08:42→21:41)
[2019-11-08] MEDS: CALCIUM ACETATE 667 MG CAP/TAB PO SCH ×3 (08:42→16:34)
[2019-11-08] MEDS: lisinopriL 40 MG TAB PO SCH (08:43)
[2019-11-08] MEDS: FERROUS SULFATE 325 MG TAB PO SCH ×2 (08:43→21:41)
[2019-11-08] MEDS: BUMETANIDE 1 MG TAB PO SCH ×2 (08:43→16:33)
[2019-11-08] MEDS: LACTULOSE SYRUP 20 GM/30 ML UDC PO SCH (08:44)
--- NOTE | 2019-11-08 11:50 | Hospitalist Progress Note ---
Date of Service November 08, 2019 Assessment & Plan (1) Acute blood loss anemia: baseline Hb between 8 and 9. frequent slow upper GI bleeds 2nd to GAVE. s/p numerous EGDs by [facility] for such. had Hb of nearly 9 in late October. 7.2 on admission, has improved s/p 2 units PRBC had had melena stools at home prior to admission. assume slow GI bleeding from GAVE again, however seems to have stopped given Hb stable if future CBCs suggest ongoing bleeding then consult [facility]. cont PPI twice daily. (2) End-stage renal disease (ESRD): significant noncompliance with outpatient HD sessions. now with marked elevation of BUN and Creatinine. at time of admission yesterday he was sleepy/lethargic and altered consistent with uremia. he has evidence of volume overload and minimally elevated potassium. Renal following - s/p HD with 1L off on 11/03 and 2L off on 11/04, 11/05, 11/06 Awaiting further HD plans need to assess patient's goals for his care - he reports wanting full code status but missing nearly 2 weeks of HD is dangerous and could lead to his mortality. consider palliative care consultation while here Met with hospice prior to hospitalization and declined services at that time, will continue to address as mentation improves (3) Volume overload: 2nd to multiple missed HD sessions. does make some urine - continue his bumex. he is comfortable on small amount of NC O2. (4) Metabolic encephalopathy: 2nd to uremia and hepatic encephalopathy improving s/p HD and lactulose x2 repeat ammonia with ongoing improvement scheduled lactulose during admission, will need to assess for need at home Likely currently an element of ativan stacking given multiple doses administered two nights ago in the setting of renal failure, gradually resolved and now WNL No further ativan to be given--added as an adverse rxn (5) Non-compliance with treatment: chronic issue uncertain if we will make progress with this terribly frustrated by his noncompliance consider palliative care consultation (6) Acute head injury: 2nd to fall while in ER. no acute process on CT head. no pain over the cervical spine; defer on imaging for now. (7) Fall: suspect falls at home are due to altered mental status from multiple metabolic factors including uremia, hepatic encephalopathy, and decompensated hypothyroidism (all of the past several TSHs have been markedly elevated, likely due to noncompliance with thyroid replacement). no bony injury fortunately despite the falls. balance, walking, etc should improve with Rx of elevated ammonia, serial HD sessions, etc PT, OT pending ability to participate (8) Face lacerations: repair in ED on 11/02 s/p adacel vaccine x 1. (9) Pancytopenia: chronic. due to cirrhosis? decompensated hypothyroidism? other factors? follow w/ daily CBC. (10) Diabetes mellitus, type 2: continue levemir 15 units daily. novolog sliding scale with meals/bedtime. bsgs ac/hs. (11) GAVE (gastric antral vascular ectasia): h/o recurrent GI bleeding from such. s/p EGD multiple times by [facility] for active upper GI bleeding; last 09/2019. H/H again lower today. Tx 2 units PRBCs on HD 11/03 Monitor CBC low threshold for [facility] consultation if concern for ongoing bleeding from this. Fe studies noted; defer IV venofer management to nephrology. continue PPI bid. (12) Hypertension: cont home meds (13) Hypothyroidism: decompensated for months. likely contributing to failure to thrive. will not change his synthroid dose. simply resume; reinforce compliance with such. (14) Cirrhosis: based on past CT abd/pelvis. "cardiac" cirrhosis? evidence of hepatic encephalopathy - Rx lactulose. Ammonia WNL (15) Obstructive sleep apnea: NC O2 HS (16) CAD (coronary artery disease): noted follows with [facility] cardiology continue all usual cardiac meds not a candidate for antiplatelet agents due to recurrent GI bleeding from GAVE had episode of heartburn after his HD session on 11/03 EKG stable gave tums and pepcid x 1 with resolution; likely was GERD (17) BPH (benign prostatic hyperplasia): cont alpha amberly check orthostatics to ensure not having orthostasis from such leading to falls (18) COPD (chronic obstructive pulmonary disease): no exacerbation O2 requirement 2nd to volume overload (19) DVT prophylaxis: SCDs chemical means contraindicated due to probable low-grade GI bleeding from GAVE extensive update given to over phone this evening Admission and Anticipated Discharge Date Admission Date: November 03, 2019 Subjective Pt is awake and alert today. Eating and taking pills without issue. Pt denies fever, SOB, chest pain, abd pain, n/v/c/d, LE pain or swelling. Review of Systems Review of Systems: Unable to obtain full ROS due to pt's decreased mentation Physical Exam Constitutional: WD/WN, vitals as above Eyes: normal visual arreaga by confrontation and + anicteric sclerae Neck: normal visual inspection and trachea midline Respiratory: normal respiratory effort; no respiratory distress Auscultation: + crackles; no wheezes Cardiovascular: Rate/Rhythm: regular rate and regular rhythm Gastrointestinal (Abdomen): Inspection/Auscultation: abdomen not distended Percussion/Palpation: abdomen soft; abdomen nontender Musculoskeletal: Head/Neck/Chest: normocephalic and head atraumatic Skin: no rashes, warm and dry Neurologic: awake (opens eyes to name and gentle rubbing of shoulder or feet); not confused Speech / Cognition: normal speech Psychiatric: Orientation: alert (easier to arouse), oriented to person, oriented to place and cooperative Speech: normal rate/rhythm/volume of speech Results & Data Results & [facility] ([facility]) Vital Signs (Past 12 Hours) Vital Signs Temp Pulse Pulse Pulse Resp BP Pulse Ox 11/08/19 11:06 36.7 C 65 18 193/68 H 94 11/08/19 08:06 66 20 173/73 H 97 11/08/19 07:00 36.8 C 67 70 20 214/76 H 95 11/08/19 06:05 192/72 H 11/08/19 03:53 37.0 C 68 19 203/72 H 97 11/07/19 23:59 69 PG Care Time/CCT Total # of Minutes Spent Total Time Spent with Patient: Total time spent is greater than 50% in coordination of care (as documented) at patient's floor/unit and/or counseling patient: Coding Level of Care Code 92383 Subseq Hosp Care Lvl 3 Diagnoses Acute blood loss anemia D62 End-stage renal disease (ESRD) N18.6 Volume overload E87.70 Hypervolemia type: unspecified Metabolic encephalopathy G93.41 Non-compliance with treatment Z91.19 Acute head injury S09.90XA Encounter type: initial encounter Fall W19.XXXA Encounter type: initial encounter Face lacerations S01.81XA Encounter type: initial encounter Pancytopenia D61.818 Diabetes mellitus, type 2 E11.22; N18.6; Z79.4; Z99.2 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 mellitus 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 teacher insulin use: with long-term use Diabetes mellitus complication status: with kidney complications Diabetes mellitus complication detail: with chronic kidney disease Chronic kidney disease stage: on chronic dialysis GAVE (gastric antral vascular ectasia) K31.819 Hypertension I10 Hypertension type: unspecified Hypothyroidism E03.9 Hypothyroidism type: unspecified Cirrhosis K74.60 Ascites presence: unspecified Hepatic cirrhosis type: unspecified hepatic cirrhosis Obstructive sleep apnea G47.33 CAD (coronary artery disease) I25.10 Coronary Disease-Associated Artery/Lesion type: [place] artery [place] vs. transplanted heart: [place] heart Associated angina: without angina BPH (benign prostatic hyperplasia) N40.0 Lower urinary tract symptom presence: unspecified whether lower urinary tract symptoms present COPD (chronic obstructive pulmonary disease) J44.9 COPD type: unspecified COPD DVT prophylaxis Z29.9 (1) Volume overload Hypervolemia type: unspecified Qualified Code(s): E87.70 - Fluid overload, unspecified (2) Acute head injury Encounter type: initial encounter Qualified Code(s): S09.90XA - Unspecified injury of head, initial encounter (3) Fall Encounter type: initial encounter Qualified Code(s): W19.XXXA - Unspecified fall, initial encounter (4) Face lacerations Encounter type: initial encounter Qualified Code(s): S01.81XA - Laceration without foreign body of other part of head, initial encounter (5) Diabetes mellitus, type 2 Diabetes mellitus 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 teacher insulin use: with 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 teacher use Diabetes mellitus complication status: with kidney complications Diabetes mellitus complication detail: with chronic kidney disease Chronic kidney disease stage: on chronic dialysis Qualified Code(s): E11.22 - Type 2 diabetes mellitus with diabetic chronic kidney disease; N18.6 - End stage renal disease; Z79.4 - 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 transplanted heart: [place] heart Associated angina: without angina Qualified Code(s): I25.10 - Atherosclerotic heart disease of [place] coronary artery without angina pectoris (10) BPH (benign prostatic hyperplasia) Lower urinary tract symptom presence: unspecified whether lower urinary tract symptoms present Qualified Code(s): N40.0 - Benign prostatic hyperplasia without lower urinary tract symptoms (11) COPD (chronic obstructive pulmonary disease) COPD type: unspecified COPD Qualified Code(s): J44.9 - Chronic obstructive pulmonary disease, unspecified
--- NOTE | 2019-11-08 12:43 | Nephrology Progress Note ---
Date of Service November 08, 2019 Assessment & Plan (1) End-stage renal disease (ESRD): HD TTS. Non-compliant with treatment. Primary deep well contractor: Dr. Briceno. Admitted with mental status changes, hyperkalemia and volume overload. Had missed >2 weeks of HD prior to admission. Completed back to back dialysis sessions on Saturday and Saturday. L arm AVF functioning appropriately. Medications appropriately dosed for IHD. Renal MVI + PO4 binder held while NPO. (2) Metabolic encephalopathy: Metabolic and medication induced. Improved. (3) Hypertension: Hopeful to see continued improvement with UF. Remains on amlodipine 10 mg daily, hydralazine 50 mg TID, doxazosin 1 daily, lisinopril 40, and labetalol 200 mg BID. Labetalol may be increased as needed. Hydralazine provided PRN. (4) Chronic anemia: History of GAVE requiring multiple admissions for APC. Received 2 PRBC on admission. NEMESIO 62670 units x1 dose on 11/04/19. Additional 28102 units of EPO provided 11/07/19. Unfortunately Hgb appears to be trending back down. Suggest repeat testing in the AM. Admission and Anticipated Discharge Date Admission Date: November 03, 2019 Subjective No acute events overnight. Tolerated HD yesterday without complications. Mental status improved. Darnell was sitting in a chair this morning. He denied any complaints or concerns. Denies significant melena or hematochezia. Review of Systems Review of Systems: All systems reviewed & are unremarkable except as noted in HPI & below Physical Exam Constitutional: + ill appearing, + thin and + behavioral limitations Eyes: + anicteric sclerae ENMT: Mouth: + dry oral mucous membranes Neck: normal visual inspection and trachea midline Respiratory: normal respiratory effort Cardiovascular: Heart Sounds: normal S1, normal S2 and + murmur Extremities: no edema Musculoskeletal: Extremities: no cyanosis and no clubbing Skin: no rashes Neurologic: Motor/Sensory: no tremor Results & Data ([facility]) Vital Signs (Past 12 Hours) Vital Signs Temp Pulse Pulse Pulse Resp BP Pulse Ox 11/08/19 11:06 36.7 C 65 18 193/68 H 94 11/08/19 08:06 66 20 173/73 H 97 11/08/19 07:00 36.8 C 67 70 20 214/76 H 95 11/08/19 06:05 192/72 H 06/07/20 03:53 37.0 C 68 19 203/72 H 97 Laboratory Results Laboratory Results - last 24 hr 11/07/19 11/07/19 11/08/19 16:03 20:12 06:16 WBC 3.75 L RBC 2.78 L Hgb 8.2 L Hct 26.3 L MCV 94.6 MCH 29.5 MCHC 31.2 L RDW Std Deviation 56.0 H RDW Coeff of Jose C 16.1 H Plt Count 113 L MPV 11.5 H Immature Gran % (Auto) 0.0 Neut % (Auto) 70.7 Lymph % (Auto) 10.1 [place] % (Auto) 14.4 Eos % (Auto) 4.0 Baso % (Auto) 0.8 Immature Gran # (Auto) 0.00 Neut # (Auto) 2.65 Lymph # (Auto) 0.38 L [place] # (Auto) 0.54 Eos # (Auto) 0.15 Baso # (Auto) 0.03 Sodium Potassium Chloride Carbon Dioxide Anion Gap BUN Creatinine Est Cr Clr Drug Dosing Est GFR ( Amer) Est GFR (Non-Af Amer) BUN/Creatinine Ratio Glucose POC Glucose 74 81 Calcium 11/08/19 11/08/19 11/08/19 06:16 07:12 11:31 WBC RBC Hgb Hct MCV MCH MCHC RDW Std Deviation RDW Coeff of Jose C Plt Count MPV Immature Gran % (Auto) Neut % (Auto) Lymph % (Auto) [place] % (Auto) Eos % (Auto) Baso % (Auto) Immature Gran # (Auto) Neut # (Auto) Lymph # (Auto) [place] # (Auto) Eos # (Auto) Baso # (Auto) Sodium 141 Potassium 3.9 Chloride 103 Carbon Dioxide 28 Anion Gap 10.0 BUN 52 H Creatinine 6.86 H* D Est Cr Clr Drug Dosing 10.8 Est GFR ( Amer) 8.2 Est GFR (Non-Af Amer) 7.0 BUN/Creatinine Ratio 7.6 L Glucose 87 POC Glucose 102 H 106 H Calcium 9.0 PG Care Time/CCT Total # of Minutes Spent Total Time Spent with Patient: Total time spent is greater than 50% in co ordination of care (as documented) at patient's floor/unit and/or counseling patient: Coding Level of Care Code 90478 Subseq Hosp Care Lvl 3 Diagnoses End-stage renal disease (ESRD) N18.6 Metabolic encephalopathy G93.41 Hypertension I10 Hypertension type: unspecified Chronic anemia D64.9 (1) Hypertension Hypertension type: unspecified Qualified Code(s): I10 - Essential (primary) hypertension
[2019-11-08] MEDS: DOXAZOSIN MESYLATE 1 MG TAB PO SCH (12:57)
[2019-11-08] MEDS: PANTOprazole 40 MG TAB PO SCH ×2 (12:58→21:42)
[2019-11-08] MEDS: FOLIC ACID 1 MG TAB PO SCH (12:58)
[2019-11-08] MEDS: NEPHROCAPS PO SCH (12:58)
[2019-11-08] MEDS: TAMSULOSIN HCL 0.4 MG CAP PO SCH (21:40)
[2019-11-08] MEDS: AMLODIPINE BESYLATE 5 MG TAB PO SCH (21:41)
[2019-11-08] MEDS: CYANOCOBALAMIN 500 MCG TABLET (VITAMIN B-12) PO SCH (21:42)
[2019-11-08] MEDS: ROSUVASTATIN CALCIUM 20 MG TAB PO SCH (21:43)
[2019-11-09 05:52] LABS: Basophils # (auto) 0.04 K/uL (0-0.2); Basophils % (auto) 1.3 %; Eosinophils # (auto) 0.24 K/uL (0-0.5); Hematocrit (blood only) 26.4 % (42-52); Hemoglobin 8.4 g/dL (14.0-18.0); Immature Granulocytes # (auto) 0.01 K/uL (0.00-0.02); Immature Granulocytes % (auto) 0.3 %; Lymphocytes # (auto) 0.44 K/uL (1.2-3.4); Lymphocytes % (auto) 14.7 %; Mean Corpuscular Hemoglobin 29.9 pg (25-34); Mean Corpuscular Hgb Conc 31.8 g/dL (32-36); Mean Platelet Volume 10.9 fL (7.4-10.4); Monocytes # (auto) 0.32 K/uL (0.11-0.59); Monocytes % (auto) 10.7 %; Neutrophils # (auto) 1.94 K/uL (1.4-6.5); Platelet Count 127 K/uL (130-400); RDW Standard Deviation 54.9 fL (36.4-46.3); Red Blood Count 2.81 M/uL (4.7-6.1); White Blood Count 2.99 K/uL (4.8-10.8)
[2019-11-09 06:29] LABS: Giant Platelets 1+
[2019-11-09 06:32] LABS: BUN Creatinine Ratio 7.5 (10-20); Calcium 9.2 mg/dl (8.5-10.1); Est GFR (African American) 6.5; Est GFR (Non-African American) 5.6; Potassium 3.8 mmol/L (3.5-5.1)
[2019-11-09] MEDS: LEVOTHYROXINE SODIUM 200 MCG TABLET PO SCH (06:35)
[2019-11-09] MEDS: LEVOTHYROXINE SODIUM 150 MCG TABLET PO SCH (06:35)
[2019-11-09] MEDS: HydrALAZINE HCL 20 MG/ML VIAL IV PRN (07:15)
[2019-11-09] MEDS: CALCIUM ACETATE 667 MG CAP/TAB PO SCH ×2 (08:34→11:36)
[2019-11-09] MEDS: LACTULOSE SYRUP 20 GM/30 ML UDC PO SCH (08:35)
[2019-11-09] MEDS: PANTOprazole 40 MG TAB PO SCH (08:37)
[2019-11-09] MEDS: HydrALAZINE TAB 50 MG TAB PO SCH ×3 (08:38→11:36)
[2019-11-09] MEDS: BUMETANIDE 1 MG TAB PO SCH ×2 (08:38→09:37)
[2019-11-09] MEDS: LABETALOL HCL 200 MG TAB PO SCH ×2 (08:39→09:38)
[2019-11-09] MEDS: lisinopriL 40 MG TAB PO SCH (08:39)
[2019-11-09] MEDS: FERROUS SULFATE 325 MG TAB PO SCH (08:42)
[2019-11-09] MEDS: DOCUSATE SODIUM 100 MG CAP PO SCH (09:37)
--- NOTE | 2019-11-09 10:26 | Nephrology Progress Note ---
Date of Service November 09, 2019 Assessment & Plan (1) End-stage renal disease (ESRD): Completed back to back dialysis sessions on Saturday and Saturday. Plan to resume TTS schedule with next treatment tomorrow. Continue TTS schedule at [facility] post discharge. L arm AVF functioning appropriately. Medications appropriately dosed for IHD. Renal MVI + PO4 binder held while NPO. (2) Metabolic encephalopathy: Improved. Underlying dementia ntoed. (3) Hypertension: Remains on amlodipine 10 mg daily, hydralazine 50 mg TID, doxazosin 1 daily, lisinopril 40, and labetalol 200 mg BID. Labetalol may be increased as needed. Hydralazine provided PRN. (4) Chronic anemia: History of GAVE requiring multiple admissions for APC. Received 2 PRBC on admission. NEMESIO 11031 units x1 dose on 11/04/19. Additional 00214 units of EPO provided 11/07/19. Thankfully Hgb stable today. Admission and Anticipated Discharge Date Admission Date: November 03, 2019 Subjective No acute events overnight. Tolerated HD yesterday without complications. Mental status improved. Darenll was sitting in a chair this morning. He denied any complaints or concerns. Denies significant melena or hematochezia. Review of Systems Review of Systems: All systems reviewed & are unremarkable except as noted in HPI & below Physical Exam Constitutional: + ill appearing, + thin and + behavioral limitations Eyes: + anicteric sclerae ENMT: Mouth: + dry oral mucous membranes Neck: normal visual inspection and trachea midline Respiratory: normal respiratory effort Cardiovascular: Heart Sounds: normal S1, normal S2 and + murmur Extremities: no edema Musculoskeletal: Extremities: no cyanosis and no clubbing Skin: no rashes Neurologic: Motor/Sensory: no tremor Results & Data ([facility]) Vital Signs (Past 12 Hours) Vital Signs Temp Pulse Pulse Pulse Resp BP Pulse Ox 11/09/19 09:32 63 214/70 H 11/09/19 08:31 67 203/110 H 11/09/19 07:09 36.6 C 68 18 205/73 H 97 11/09/19 07:00 64 11/09/19 03:17 36.6 C 70 18 175/97 H 100 11/09/19 01:50 160/80 H 11/09/19 00:00 67 11/08/19 23:28 36.6 C 65 20 202/72 H 92 Laboratory Results Laboratory Results - last 24 hr 11/08/19 11/08/19 11/08/19 11:31 16:34 20:27 WBC RBC Hgb Hct MCV MCH MCHC RDW Std Deviation RDW Coeff of Jose C Plt Count MPV Immature Gran % (Auto) Neut % (Auto) Lymph % (Auto) [place] % (Auto) Eos % (Auto) Baso % (Auto) Immature Gran # (Auto) Neut # (Auto) Lymph # (Auto) [place] # (Auto) Eos # (Auto) Baso # (Auto) Giant Platelets Sodium Potassium Chloride Carbon Dioxide Anion Gap BUN Creatinine Est Cr Clr Drug Dosing Est GFR ( Amer) Est GFR (Non-Af Amer) BUN/Creatinine Ratio Glucose POC Glucose 106 H 125 H 127 H Calcium Ammonia 11/09/19 11/09/19 11/09/19 05:29 05:29 05:29 WBC 2.99 L RBC 2.81 L Hgb 8.4 L Hct 26.4 L MCV 94.0 MCH 29.9 MCHC 31.8 L RDW Std Deviation 54.9 H RDW Coeff of Jose C 16.0 H Plt Count 127 L MPV 10.9 H Immature Gran % (Auto) 0.3 Neut % (Auto) 65.0 Lymph % (Auto) 14.7 [place] % (Auto) 10.7 Eos % (Auto) 8.0 Baso % (Auto) 1.3 Immature Gran # (Auto) 0.01 Neut # (Auto) 1.94 Lymph # (Auto) 0.44 L [place] # (Auto) 0.32 Eos # (Auto) 0.24 Baso # (Auto) 0.04 Giant Platelets 1+ Sodium 140 Potassium 3.8 Chloride 103 Carbon Dioxide 28 Anion Gap 9.0 BUN 62 H Creatinine 8.25 H* D Est Cr Clr Drug Dosing 9.0 Est GFR ( Amer) 6.5 Est GFR (Non-Af Amer) 5.6 BUN/Creatinine Ratio 7.5 L Glucose 112 H POC Glucose Calcium 9.2 Ammonia 33.0 H 11/09/19 07:23 WBC RBC Hgb Hct MCV MCH MCHC RDW Std Deviation RDW Coeff of Jose C Plt Count MPV Immature Gran % (Auto) Neut % (Auto) Lymph % (Auto) [place] % (Auto) Eos % (Auto) Baso % (Auto) Immature Gran # (Auto) Neut # (Auto) Lymph # (Auto) [place] # (Auto) Eos # (Auto) Baso # (Auto) Giant Platelets Sodium Potassium Chloride Carbon Dioxide Anion Gap BUN Creatinine Est Cr Clr Drug Dosing Est GFR ( Amer) Est GFR (Non-Af Amer) BUN/Creatinine Ratio Glucose POC Glucose 126 H Calcium Ammonia PG Care Time/CCT Total # of Minutes Spent Total Time Spent with Patient: Total time spent is greater than 50% in coordination of care (as documented) at patient's floor/unit and/or counseling patient: Coding Level of Care Code 93173 Subseq Hosp Care Lvl 3 Diagnoses End-stage renal disease (ESRD) N18.6 Metabolic encephalopathy G93.41 Hypertension I10 Hypertension type: unspecified Chronic anemia D64.9 (1) Hypertension Hypertension type: unspecified Qualified Code(s): I10 - Essential (primary) hypertension
--- NOTE | 2019-11-09 11:20 | Discharge Summary ---
Date of Service November 09, 2019 Admission HPI Per Admitting Provider 79yo male with ESRD on HD //Sat, h/o noncompliance, COPD, T2DM, h/o GAVE with GI bleeding - presents with worsening edema and recent falls. He has fallen at least twice in the last few days. He states he "gets weak in the knees." Denies syncope. Denies presyncope. Denies loss of appetite. No fevers or chills. Occasional shortness of breath. No chest pain. Patient was altered, sleepy, and is hearing-impaired and thus history was limited from him. ER provider did indeed speak with his and apparently a home health nurse had come to his home to discuss hospice. While being evaluated by the nurse he was advised to come to the hospital because of the recent falls and lethargy. By report he has missed his last 5 hemodialysis sessions. The patient underwent evaluation in the ER and nephrology was contacted. Nephrology arranged for hemodialysis to occur tomorrow morning as an outpatient. While preparing to discharge home from the ER the patient fell while trying to ambulate, striking his head and suffering a small laceration to the bridge of his nose and near the right eye. The ER provider was preparing to suture the nasal laceration during my bedside assessment. When asked why he has missed HD the last 5 sessions he states "I wanted to take a break." Principal Diagnosis Pt feels much better today. Ate without issue. Pt denies fever, SOB, chest pain, abd pain, n/v/c/d, LE pain or swelling. Would like to go home. Discussed HD with pt. He states that "it's something that just has to be done" and when asked if he wants to continue with tx he replied "you betcha". Discharge Exam Constitutional WD/WN, vitals as above Eyes normal visual arreaga by confrontation and + anicteric sclerae Neck normal visual inspection and trachea midline Respiratory normal respiratory effort; no respiratory distress Auscultation: no crackles and no wheezes Cardiovascular Rate/Rhythm: regular rate and regular rhythm Gastrointestinal (Abdomen) Inspection/Auscultation: abdomen not distended Percussion/Palpation: abdomen soft; abdomen nontender Musculoskeletal Head/Neck/Chest: normocephalic and head atraumatic Skin no rashes, warm and dry Neurologic awake; not confused Speech / Cognition: normal speech Psychiatric Orientation: alert, oriented to person, oriented to place and cooperative Speech: normal rate/rhythm/volume of speech Affect: euthymic affect Discharge Data Allergies Allergy/AdvReac Type Severity Reaction Status Date / Time sucralfate [From Carafate] Allergy Mild upset Verified 11/03/19 16:28 dialysis tramadol AdvReac Severe disorented Verified 11/03/19 16:28 ,falling down lorazepam [From Ativan] AdvReac Intermediate unresponsive, Verified 11/08/19 11:39 confusion metformin AdvReac Intermediate CONFUSION Verified 11/03/19 16:28 Consultations 11/03/19 17:32 ED Decision to Admit Stat 11/03/19 19:06 Consult Case Management - Discharge Planning Routine Consult Nephrology Routine Ordered Studies 11/03/19 15:48 CT head/brain wo con Stat Hospital Course (1) Acute blood loss anemia: baseline Hb between 8 and 9. frequent slow upper GI bleeds 2nd to GAVE. s/p numerous EGDs by [facility] for such. had Hb of nearly 9 in late October. 7.2 on admission, has improved s/p 2 units PRBC had had melena stools at home prior to admission. assume slow GI bleeding from GAVE again, however seems to have stopped given Hb stable if future CBCs suggest ongoing bleeding then consult [facility]. cont PPI twice daily. (2) End-stage renal disease (ESRD): significant noncompliance with outpatient HD sessions. now with marked elevation of BUN and Creatinine. at time of admission yesterday he was sleepy/lethargic and altered consistent with uremia. he has evidence of volume overload and minimally elevated potassium. Renal following - s/p HD with 1L off on 11/03 and 2L off on 11/04, 11/05, 11/06 No HD on 11/07 Plan per renal to resume usual HD schedule of TTS as outpt consider palliative care consultation while here Met with hospice prior to this hospitalization and declined services at that time I did discuss goals of care with pt prior to d/c as noted above. He states he is planning to go to HD tomorrow and be more consistent moving forward. He is aware that he can make the choice to stop tx at any time. He is also aware that this will lead to his . He wants to continue care at this time. I discussed this with , who states she will be supportive of him and his decisions. (3) Volume overload: 2nd to multiple missed HD sessions. does make some urine - continue his bumex. he is comfortable on small amount of NC O2. (4) Metabolic encephalopathy: 2nd to uremia and hepatic encephalopathy improving s/p HD and lactulose x2 repeat ammonia with ongoing improvement scheduled lactulose during admission, however some days missed due to pt's mentation and ammonia increased Daily lactulose on d/c Likely currently an element of ativan stacking given multiple doses administered two nights ago in the setting of renal failure, gradually resolved and now WNL No further ativan to be given--added as an adverse rxn (5) Non-compliance with treatment: chronic issue uncertain if pt will do as he says he will, but pt currently wanting to pursue ongoing tx as noted above terribly frustrated by his noncompliance consider palliative care consultation (6) Acute head injury: 2nd to fall while in ER. no acute process on CT head. no pain over the cervical spine; defer on imaging for now. (7) Fall: suspect falls at home are due to altered mental status from multiple metabolic factors including uremia, hepatic encephalopathy, and decompensated hypothyroidism (all of the past several TSHs have been markedly elevated, likely due to noncompliance with thyroid replacement). no bony injury fortunately despite the falls. balance, walking, etc should improve with Rx of elevated ammonia, serial HD sessions, etc PT, OT pending ability to participate (8) Face lacerations: repair in ED on 11/02 s/p adacel vaccine x 1 Sutures should be removed on or around 11/10 (9) Pancytopenia: chronic. due to cirrhosis? decompensated hypothyroidism? other factors? follow w/ daily CBC. 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 s/p EGD multiple times by [facility] for active upper GI bleeding; last 09/2019. H/H again lower today. Tx 2 units PRBCs on HD 11/03 Monitor CBC low threshold for [facility] consultation if concern for ongoing bleeding from this. Fe studies noted; defer IV venofer management to nephrology. continue PPI bid. (12) Hypertension: cont home meds (13) Hypothyroidism: decompensated for months. likely contributing to failure to thrive. will not change his synthroid dose. simply resume; reinforce compliance with such. (14) Cirrhosis: based on past CT abd/pelvis. "cardiac" cirrhosis? evidence of hepatic encephalopathy - Rx lactulose. Ammonia WNL (15) Obstructive sleep apnea: NC O2 HS (16) CAD (coronary artery disease): noted follows with [facility] cardiology continue all usual cardiac meds not a candidate for antiplatelet agents due to recurrent GI bleeding from GAVE had episode of heartburn after his HD session on 11/03 EKG stable gave tums and pepcid x 1 with resolution; likely was GERD (17) BPH (benign prostatic hyperplasia): cont alpha amberly check orthostatics to ensure not having orthostasis from such leading to falls (18) COPD (chronic obstructive pulmonary disease): no exacerbation O2 requirement 2nd to volume overload (19) DVT prophylaxis: SCDs chemical means contraindicated due to probable low-grade GI bleeding from GAVE Total Time Total Time Spent Total Time Spent (In Minutes): >30 Total Time Includes: Examination of the Patient, Discharge Planning, Medication Reconciliation, Communication With Other Providers and Other Discharge Plan Discharge Items Patient Disposition: Home - Home Health Services Reason For Visit: VOLUME OVERLOAD 2ND TO ESRD,FALLS Discharge Diagnosis: Volume overload, missed dialysis Condition on Discharge: Fair Activity: Resume your previous activity Non-emergency contact: Primary Care Provider and Porcelain Buildup Assistant Call non-emergency contact if: you have any medication questions, your symptoms worsen and your pain is not controlled Follow-up/Referrals: Mahsa Wang, [Primary Care Provider] - 11/11/19 10:20 am (Your follow up appointment with Dr Wang's physician assistant loan processor, Kirsty Harper on November 10 at 10:20am.) Diet: Carb Consistent or DM2, Dialysis Renal and Low Sodium (2gm) Addtl Attending Provider Instructions: You should go to your usual dialysis schedule starting tomorrow. You will have dialysis on Saturday, , Saturday as you were doing prior. You will go to your usual dialysis center in [place]. Pending Studies at Discharge: No Stand-Alone Forms: My [employer], Smoking Cessation Medications and DC Order Prescriptions: New lactulose 20 gram/30 mL Solution 20 gm PO DAILY Qty: 1500 RF: 0 Continued gabapentin 100 mg capsule 200 mg PO HS Qty: 60 RF: 5 calcium acetate(phosphat bind) 667 mg tablet 2,001 mg PO TIDM RF: 0 rosuvastatin 20 mg tablet 20 mg PO QPM Qty: 90 RF: 1 ferrous sulfate 325 mg (65 mg iron) tablet,delayed release (DR/EC) 325 mg PO BID Qty: 60 RF: 5 levothyroxine 200 mcg tablet 200 mcg PO QAM Qty: 90 RF: 1 levothyroxine 150 mcg tablet 150 mcg PO DAILY Qty: 90 RF: 3 bumetanide 1 mg tablet 2 mg PO BID Qty: 120 RF: 5 labetalol 200 mg tablet 200 mg PO BID Qty: 180 RF: 1 folic acid 1 mg tablet 1 mg PO QDL RF: 0 docusate sodium 100 mg capsule 200 mg PO QAM Qty: 30 RF: 0 Levemir U-100 Insulin 100 unit/mL solution 15 units subcut HS RF: 0 Renal Caps 1 mg Capsule 1 cap PO QDL RF: 0 amlodipine 10 mg tablet 10 mg PO HS RF: 0 doxazosin [Cardura] 1 mg tablet 1 mg PO QDL RF: 0 hydralazine 50 mg tablet 50 mg PO TIDM RF: 0 tamsulosin 0.4 mg capsule 0.4 mg PO HS Qty: 90 RF: 1 pantoprazole 40 mg tablet,delayed release (DR/EC) 40 mg PO BID RF: 0 insulin aspart U-100 [Novolog U-100 Insulin aspart] 100 unit/mL solution 0 sliding scale dose subcut QID RF: 0 lisinopril 40 mg tablet 40 mg PO QDL RF: 0 cyanocobalamin (vitamin B-12) [Vitamin B-12] 1,000 mcg Tablet 1,000 mcg PO HS RF: 0 Discharge Orders: Discharge Order (Routine); Ordered 11/09/19 Ordered By: Raina Funes Admission Data Admit Date/Time: 11/03/19 18:04 Attending Provider: Raina Funes Admit Provider: Prashanth Rausch Primary Care Provider: Mahsa Wang Other Providers: Phylicia Alan ; Merlyn Briceno Other Interventions: Discharge Summary Assessment (RN) Last Done: 11/09/19 12:55 DC Date/Time DO NOT enter until pt leaves facility: 11/09/19 13:55 Coding Level of Care Code D/C Day Management >30 mins Diagnoses Acute blood loss anemia D62 End-stage renal disease (ESRD) N18.6 Volume overload E87.70 Hypervolemia type: unspecified Metabolic encephalopathy G93.41 Non-compliance with treatment Z91.19 Acute head injury S09.90XA Encounter type: initial encounter Fall [id number] Encounter type: initial encounter Face lacerations S01.81XA Encounter type: initial encounter Pancytopenia D61.818 Diabetes mellitus, type 2 E11.22; N18.6; Z79.4; Z99.2 Chronic kidney disease stage: on chronic dialysis Diabetes mellitus complication detail: with chronic kidney disease Diabetes mellitus complication status: with kidney complications 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 transplanted heart: [place] heart BPH (benign prostatic hyperplasia) N40.0 Lower urinary tract symptom presence: unspecified whether lower urinary tract symptoms present COPD (chronic obstructive pulmonary disease) J44.9 COPD type: unspecified COPD DVT prophylaxis Z29.9
[2019-11-09] MEDS: FOLIC ACID 1 MG TAB PO SCH (11:34)
[2019-11-09] MEDS: DOXAZOSIN MESYLATE 1 MG TAB PO SCH (11:34)
[2019-11-09] MEDS: NEPHROCAPS PO SCH (11:34)
== END 2019-11-09 13:55 | disposition home health service (06) | DRG 682 ==
LOC: ED 13:02 → 2W 18:04 → SUATTDRO 18:04 → 2W 18:50

== ENCOUNTER 2019-12-20 09:55 | Inpatient (IN) ==
[2019-12-20] MEDS ORDERED: NITROGLYCERIN 2% OINTMENT 30GM TUBE EXT STA (10:28)
--- NOTE | 2019-12-20 10:37 | Emergency Department Note ---
Impression & Plan Substernal chest pain, Productive cough, ESRD (end stage renal disease) on dialysis ED Provider Note INFORMANT: [Patient] ED PROVIDER(S): Stephon Forman MD CHIEF COMPLAINT: Chest pain PLAN: Disposition: admitted Condition: [Good] MEDICAL DECISION MAKING: Patient presented back to the emergency department with chest pain and productive cough. He had improvement with nitroglycerin prehospital. Nitropaste was applied. Blood cultures, chest x-ray, blood work and ECG performed. The patient did have sinus tachycardia noted on ECG. Ultrasound imaging of the lower extremities was negative for acute process. Specifically no DVT. Chest x-ray was unremarkable. No pneumonia. His CBC, chemistry panel, LFTs and troponin resulted with unremarkable findings except for his known end- stage renal disease. The troponin was minimally elevated. Difficult to interpret on a single value in light of his end-stage renal disease. Further management will be necessary. I did discuss this with Dr. Gold of the hospitalist service. He is very familiar with the patient. I did review his ultrasound imaging. Given the symptoms we did discuss further work-up for PE. Internal medicine will dictate the additional management. Triage Nursing notes reviewed and agree them. [Prior medical records reviewed] patient was here yesterday. He was deemed to have the capacity to refuse care and work-up was not performed by his wishes. Vital Signs: reviewed and remarkable for [no significant abnormalities] Differential diagnosis: Cardiac ischemia, aortic dissection, pulmonary embolism, pneumothorax, pneumonia, pericarditis, myocarditis, esophageal rupture, GERD, cholecystitis, pancreatitis, musculoskeletal, as well as other pathologies. Diagnostics interpreted by me: ECG:Rate: 109 Rhythm: Sinus tachycardia [place]: Normal QRS: Right bundle branch block ST segements: No elevation or depression Other: Inferior T wave inversions. No PVCs. Cardiac Monitoring: Cardiac monitoring ordered by me: The patient was placed on continuous cardiac monitoring and observed. It revealed a normal sinus rhythm at 99 beats per minute without ectopy or evidence of dysrhythmia. Imaging studies: Chest x-ray. Findings: A chest x-ray was performed and revealed no pneumothorax, effusion, infiltrate, pulmonary edema, free air under the diaphragm, or wide mediastinum. Mild cardiomegaly. Impression: No acute disease. Consultation(s): [facility] service, Dr. Gold HPI: The patient is a 79 year old male who presents to the Emergency Room with complaints of chest pain. This started last night and is now improved after EMS gave Zofran and nitroglycerin x1. The patient also notes the following associated symptoms, productive cough with blood-tinged sputum x4 days. The patient has been taking nothing at home for relieving factors. Current pain is rated as 1/10. Patient was here yesterday but refused treatment. Pt denies LOC, headache, fevers, chills, diaphoresis, visual changes, neck pain, breathing difficulties, nausea, vomiting, abdominal pain, back pain, melena, hematochezia, urinary symptoms, numbness, weakness, lymphadenopathy, rash, or other complaints. ROS: See above HPI for pertinent positives & negatives. A total of [10] systems reviewed and were otherwise negative. PAST MEDICAL HISTORY:[See Below] end-stage renal disease PAST SURGICAL HISTORY:[See Below] FAMILY HISTORY:[See Below] SOCIAL HISTORY:[See Below] HOME MEDICATIONS:[See Below] ALLERGIES:[See Below] VITALS:[See Below] PHYSICAL EXAMINATION: GENERAL: Awake, alert, tired-appearing, in no distress HENT: Normocephalic, atraumatic. Oropharynx unremarkable. EYES: Normal conjunctiva. Sclera non-icteric. NECK: Inspection normal. Non-tender. Supple. No nuchal rigidity. FROM. No masses. RESPIRATORY: Clear to auscultation. No wheezes. No rales. Normal respiratory effort. CARDIAC: Normal rate. Normal rhythm. No murmurs. No rubs. Extremities warm and well perfused. Pulses equal. No JVD. GI: Soft, non-distended. No tenderness to palpation. No rebound or guarding. No masses. RECTAL: Deferred. MUSCULOSKELETAL: Atraumatic. Chest examination reveals no tenderness. The back is symmetrical on inspection without obvious abnormality. There is no CVA tenderness to palpation. No joint edema. LOWER EXTREMITIES: Calves are equal size bilaterally and non-tender. 2+ edema. No discoloration. NEURO: Normal sensorium. No sensory or motor deficits noted. SKIN: No rash or jaundice noted. ED COURSE: [Critical Care:] [None] Stephon Forman MD Past Med/Surg History Medical History Anemia of renal disease Anxiety and depression Arthritis Asthma AVF (arteriovenous fistula) LEFT ARM BPH (benign prostatic hyperplasia) CAD (coronary artery disease) Chronic diastolic congestive heart failure Colon, diverticulosis 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, with long-term current use of insulin COPD (chronic obstructive pulmonary disease) Diabetes mellitus, type 2 Diabetic peripheral neuropathy D[facility] patient [facility] SATURDAY, SATURDAY, SATURDAY GAVE (gastric antral vascular ectasia) (Acute) GERD (gastroesophageal reflux disease) GI bleed (Inactive) Hearing difficulty Hyperlipidemia LDL goal <70 Hypertension (Acute) Hypnic jerks Hypothyroidism IgG monoclonal gammopathy Memory loss Mitral regurgitation Obstructive sleep apnea uses oxygen 2 l nc at hs Occlusion and stenosis of unspecified carotid artery On home oxygen therapy WEARS O2 AT 2L HS Osteoporosis Pulmonary hypertension Secondary hyperparathyroidism of renal origin Vitamin D deficiency Surgical History H/O cardiac catheterization many years ago - over 10 years no stents follow with trung (NO STENTS) H/O hemorrhoidectomy History of colonoscopy History of esophagogastroduodenoscopy (EGD) MULTIPLE History of tooth extraction Hx of cholecystectomy Family History Unknown Myocardial infarction Mother Diabetes Breast cancer late 70s Hypertension Gallbladder disease Father Diabetes Hypertension Brother Diabetes Kidney disease Hypertension Denies family history of Ovarian cancer Prostate cancer Lung cancer Colorectal cancer Social History Preferred Language: Qatari Communication Ability: Effective Visual Impairment: No Limitations Hearing Ability: Hard of Hearing Learning [employer] Instructor Required: No Beliefs That Will Affect Care: None marital status: Current Living Situation: Spouse Current Living Situation Comment: lives with in [facility] current occupational status: disabled current occupation: works part-time at [employer] Other Information That Helps Us Care for You: No other: 4 children Feels Safe at Home: Yes Safety Concerns: Feels Safe At This Time Smoking Status: Unknown if ever smoked Hx Alcohol Use: Yes Alcohol type: beer Hx Substance Use: No Childhood Exposure to Second-Hand Smoke: No Diet Comment: regular caffeine: Yes during the past year weight has: remained stable Dental Care, Regularly: Yes Physical Activity Frequency: Does not Exercise Physical Activity Frequency Comment: limited due physical condition Seatbelt Use: sometimes Sunscreen Use: No Allergies Allergies Allergy/AdvReac Type Severity Reaction Status Date / Time sucralfate [From Carafate] Allergy Mild upset Verified 11/11/19 10:26 dialysis tramadol AdvReac Severe disorented Verified 11/11/19 10:26 ,falling down lorazepam [From Ativan] AdvReac Intermediate unresponsive, Verified 11/11/19 10:26 confusion metformin AdvReac Intermediate CONFUSION Verified 11/11/19 10:26 Home Meds Home Medications Medication Instructions Recorded Confirmed insulin detemir U-100 100 unit/mL 15 units SUBCUT HS ml 03/25/19 12/20/19 subcutaneous solution Renal Caps 1 cap PO QDL 05/23/19 12/20/19 calcium acetate(phosphat bind) 667 2,001 mg PO TIDM tab 06/02/19 12/20/19 mg tablet insulin aspart U-100 [Novolog 0 sliding scale dose SUBCUT QID 06/06/19 12/20/19 U-100 Insulin aspart] amlodipine 10 mg PO HS 06/13/19 12/20/19 doxazosin [Cardura] 1 mg PO QDL 06/23/19 12/20/19 folic acid 1 mg tablet 1 mg PO QDL 07/10/19 12/20/19 lisinopril 40 mg PO QDL 07/23/19 12/20/19 cyanocobalamin (vitamin B-12) 1,000 mcg PO HS 08/14/19 12/20/19 [Vitamin B-12] hydralazine 50 mg PO TIDM 10/20/19 12/20/19 Previous Rx's Medication Instructions Recorded docusate sodium 100 mg capsule 200 mg PO QAM #30 cap 01/19/19 ferrous sulfate 325 mg (65 mg 325 mg PO BID #60 tab 10/01/19 iron) tablet,delayed release rosuvastatin 20 mg tablet 20 mg PO QPM #90 tab 10/01/19 labetalol 200 mg tablet 200 mg PO BID #180 tab 10/08/19 levothyroxine 150 mcg tablet 150 mcg PO DAILY #90 tab 10/13/19 levothyroxine 200 mcg tablet 200 mcg PO QAM #90 tab 10/13/19 bumetanide 1 mg tablet 2 mg PO BID #120 tab 10/20/19 lactulose 20 gm PO DAILY #1500 ml 11/09/19 tamsulosin 0.4 mg capsule 0.4 mg PO HS #90 cap 11/19/19 gabapentin 100 mg capsule 200 mg PO HS #180 cap 11/25/19 pantoprazole 40 mg tablet,delayed 40 mg PO BID #60 tab 11/26/19 release Results & Data (ED) Vital Signs Vital Signs - 24 hr 12/20/19 09:55 12/20/19 10:06 12/20/19 10:08 Temperature 36.9 C Temperature Source Oral Pulse Rate 110 H 109 H Pulse Rate [Right Finger] Pulse Rate from SpO2 Sensor 109 H Respiratory Rate 14 21 Respiratory Effort / Characteristics Spontaneous Respiratory Depth Normal Blood Pressure 157/74 H Blood Pressure [Right Arm] Blood Pressure Mean 101 Blood Pressure Mean [Right Arm] Pulse Oximetry 97 86 L 96 Oxygen Delivery Method Nasal Cannula Room Air Oxygen Flow Rate 2 Sepsis Recent Fever Within 48 Hours No Sepsis New/Unexplained Change in Mental Status N/A Sepsis Action Taken by Nursing No Action Required 12/20/19 10:09 12/20/19 10:30 12/20/19 10:31 Temperature Temperature Source Pulse Rate 109 H 110 H 108 H Pulse Rate [Right Finger] Pulse Rate from SpO2 Sensor 109 H 108 H Respiratory Rate 18 19 20 Respiratory Effort / Characteristics Respiratory Depth Blood Pressure 175/81 H 160/72 H Blood Pressure [Right Arm] Blood Pressure Mean 117 105 Blood Pressure Mean [Right Arm] Pulse Oximetry 94 91 Oxygen Delivery Method Oxygen Flow Rate Sepsis Recent Fever Within 48 Hours Sepsis New/Unexplained Change in Mental Status Sepsis Action Taken by Nursing 12/20/19 11:00 12/20/19 11:07 12/20/19 11:30 Temperature Temperature Source Pulse Rate 109 H Pulse Rate [Right Finger] 106 H Pulse Rate from SpO2 Sensor Respiratory Rate 13 20 Respiratory Effort / Characteristics Respiratory Depth Blood Pressure 143/89 H Blood Pressure [Right Arm] 143/89 H Blood Pressure Mean 120 Blood Pressure Mean [Right Arm] 107 Pulse Oximetry 97 Oxygen Delivery Method Nasal Cannula Nasal Cannula Oxygen Flow Rate 2 2 Sepsis Recent Fever Within 48 Hours Sepsis New/Unexplained Change in Mental Status Sepsis Action Taken by Nursing 12/20/19 12:02 12/20/19 12:30 12/20/19 13:00 Temperature Temperature Source Pulse Rate 107 H 107 H 112 H Pulse Rate [Right Finger] Pulse Rate from SpO2 Sensor Respiratory Rate 21 16 18 Respiratory Effort / Characteristics Respiratory Depth Blood Pressure 158/77 H Blood Pressure [Right Arm] Blood Pressure Mean 109 Blood Pressure Mean [Right Arm] Pulse Oximetry Oxygen Delivery Method Oxygen Flow Rate Sepsis Recent Fever Within 48 Hours Sepsis New/Unexplained Change in Mental Status Sepsis Action Taken by Nursing Laboratory Data Result diagrams: 12/20/19 11:13 12/20/19 11:13 Lab Results 12/20/19 12/20/19 12/20/19 Range/Units 11:13 11:13 11:13 WBC 3.08 L (4.8-10.8) K/uL RBC 2.57 L (4.7-6.1) M/uL Hgb 7.6 L (14.0-18.0) g/dL Hct 24.4 L (42-52) % MCV 94.9 (80-100) fL MCH 29.6 (25-34) pg MCHC 31.1 L (32-36) g/dL RDW Std Deviation 58.8 H (36.4-46.3) fL RDW Coeff of Jose C 16.9 H (11.5-14.5) % Plt Count 96 L (130-400) K/uL MPV 11.8 H (7.4-10.4) fL Immature Gran % (Auto) 0.0 % Neut % (Auto) 71.9 % Lymph % (Auto) 13.6 % [place] % (Auto) 9.7 % Eos % (Auto) 4.2 % Baso % (Auto) 0.6 % Neut # (Auto) 2.21 (1.4-6.5) K/uL Lymph # (Auto) 0.42 L (1.2-3.4) K/uL [place] # (Auto) 0.30 (0.11-0.59) K/uL Eos # (Auto) 0.13 (0-0.5) K/uL Baso # (Auto) 0.02 (0-0.2) K/uL Immature Gran # (Auto) 0.00 (0.00-0.02) K/uL Platelet Estimate Decreased L (Normal) Polychromasia 1+ Hypochromasia Present Basophilic Stippling 1+ Ovalocytes 1+ PT 12.9 H (9.0-12.0) Seconds INR 1.2 H (0.9-1.1) APTT 30.8 (21.0-31.0) Seconds PTT Ratio 1.1 Sodium 141 (136-145) mmol/L Potassium 4.4 (3.5-5.1) mmol/L Chloride 104 (98-107) mmol/L Carbon Dioxide 28 (21-32) mmol/L Anion Gap 9.0 (3-11) BUN 77 H (7-18) mg/dl Creatinine 8.32 H* (0.6-1.4) mg/dl Est Cr Clr Drug Dosing Not Reportable Est GFR ( Amer) 6.5 Est GFR (Non-Af Amer) 5.6 BUN/Creatinine Ratio 9.3 L (10-20) Glucose 140 H (70-99) mg/dl Lactate (0.4-2.0) mmol/L Calcium 8.6 (8.5-10.1) mg/dl Total Bilirubin 0.5 (0.2-1) mg/dl AST 8 L (15-37) U/L ALT 16 (12-78) U/L Alkaline Phosphatase 94 (45-117) U/L Troponin I 0.319 H* (0-0.045) ng/ml Total Protein 6.0 L (6.4-8.2) gm/dl Albumin 2.9 L (3.4-5.0) gm/dl Globulin 3.1 (2.5-4.0) gm/dl Albumin/Globulin Ratio 0.9 (0.9-2) Lipase 156 (73-393) U/L 12/20/19 Range/Units 11:13 WBC (4.8-10.8) K/uL RBC (4.7-6.1) M/uL Hgb (14.0-18.0) g/dL Hct (42-52) % MCV (80-100) fL MCH (25-34) pg MCHC (32-36) g/dL RDW Std Deviation (36.4-46.3) fL RDW Coeff of Jose C (11.5-14.5) % Plt Count (130-400) K/uL MPV (7.4-10.4) fL Immature Gran % (Auto) % Neut % (Auto) % Lymph % (Auto) % [place] % (Auto) % Eos % (Auto) % Baso % (Auto) % Neut # (Auto) (1.4-6.5) K/uL Lymph # (Auto) (1.2-3.4) K/uL [place] # (Auto) (0.11-0.59) K/uL Eos # (Auto) (0-0.5) K/uL Baso # (Auto) (0-0.2) K/uL Immature Gran # (Auto) (0.00-0.02) K/uL Platelet Estimate (Normal) Polychromasia Hypochromasia Basophilic Stippling Ovalocytes PT (9.0-12.0) Seconds INR (0.9-1.1) APTT (21.0-31.0) Seconds PTT Ratio Sodium (136-145) mmol/L Potassium (3.5-5.1) mmol/L Chloride (98-107) mmol/L Carbon Dioxide (21-32) mmol/L Anion Gap (3-11) BUN (7-18) mg/dl Creatinine (0.6-1.4) mg/dl Est Cr Clr Drug Dosing Est GFR ( Amer) Est GFR (Non-Af Amer) BUN/Creatinine Ratio (10-20) Glucose (70-99) mg/dl Lactate 0.7 (0.4-2.0) mmol/L Calcium (8.5-10.1) mg/dl Total Bilirubin (0.2-1) mg/dl AST (15-37) U/L ALT (12-78) U/L Alkaline Phosphatase (45-117) U/L Troponin I (0-0.045) ng/ml Total Protein (6.4-8.2) gm/dl Albumin (3.4-5.0) gm/dl Globulin (2.5-4.0) gm/dl Albumin/Globulin Ratio (0.9-2) Lipase (73-393) U/L Administered Medications Discontinued Medications Nitroglycerin (Nitro-Bid 2%) 0.5 inch EXT NOW STA Stop: 12/20/19 10:29 Last Admin: 12/20/19 11:19 Dose: 0.5 inch Documented by: [id number] Discharge Plan Visit Data *Final* Discharge Date/Time: 12/20/19 14:00 Chief Complaint: Chest Pain Stated Complaint: chest pain ED Provider: Stephon Forman Discharge Problem: Substernal chest pain, Productive cough, ESRD (end stage renal disease) on dialysis Patient Disposition: Admitted As Inpatient Discharge Instructions Interventions: ED Discharge Assessment Last Done: 12/20/19 14:00
[2019-12-20 11:25] LABS: Hematocrit (blood only) 24.4 % (42-52); Hemoglobin 7.6 g/dL (14.0-18.0); Mean Corpuscular Hemoglobin 29.6 pg (25-34); Mean Corpuscular Hgb Conc 31.1 g/dL (32-36); Mean Corpuscular Volume 94.9 fL (80-100); RDW Coefficient of Variation 16.9 % (11.5-14.5); RDW Standard Deviation 58.8 fL (36.4-46.3); Red Blood Count 2.57 M/uL (4.7-6.1); White Blood Count 3.08 K/uL (4.8-10.8)
--- NOTE | 2019-12-20 11:27 | XRay Report ---
XR chest 1V portable HISTORY: Atypical Chest Pain COMPARISON: Chest 11/03/2019. FINDINGS: No pneumothorax. The heart remains mildly enlarged. Rotated study. Diffuse interstitial thi ckening has slightly improved. This suggests mild congestive change. No pleural effusions. No new foc al lung consolidations. IMPRESSION: Cardiomegaly with slight improvement in the mild congestive change. ACT 112: Negative or not required by law. Electronically signed by: Jose C Jaeger M.D. 12/20/2019 11:25 AM
[2019-12-20 11:45] LABS: INR 1.2 (0.9-1.1); Partial Thromboplastin Ratio 1.1; Partial Thromboplastin Time 30.8 Seconds (21.0-31.0); Prothrombin Time 12.9 Seconds (9.0-12.0)
[2019-12-20 11:50] LABS: Alanine Aminotransferase 16 U/L (12-78); Albumin Globulin Ratio 0.9 (0.9-2); Albumin Level 2.9 gm/dl (3.4-5.0); Alkaline Phosphatase 94 U/L (45-117); Aspartate Aminotransferase 8 U/L (15-37); BUN Creatinine Ratio 9.3 (10-20); Bilirubin,Total 0.5 mg/dl (0.2-1); Blood Urea Nitrogen 77 mg/dl (7-18); Calcium 8.6 mg/dl (8.5-10.1); Carbon Dioxide 28 mmol/L (21-32); Chloride 104 mmol/L (98-107); Est GFR (African American) 6.5; Est GFR (Non-African American) 5.6; Globulin 3.1 gm/dl (2.5-4.0); Glucose 140 mg/dl (70-99); Lipase 156 U/L (73-393); Potassium 4.4 mmol/L (3.5-5.1); Sodium 141 mmol/L (136-145); Troponin I 0.319 ng/ml (0-0.045)
[2019-12-20 11:54] LABS: Basophilic Stippling 1+; Basophils # (auto) 0.02 K/uL (0-0.2); Basophils % (auto) 0.6 %; Eosinophils # (auto) 0.13 K/uL (0-0.5); Eosinophils % (auto) 4.2 %; Hypochromasia Present; Lymphocytes # (auto) 0.42 K/uL (1.2-3.4); Lymphocytes % (auto) 13.6 %; Mean Platelet Volume 11.8 fL (7.4-10.4); Monocytes % (auto) 9.7 %; Neutrophils # (auto) 2.21 K/uL (1.4-6.5); Neutrophils % (auto) 71.9 %; Ovalocytes 1+; Platelet Count 96 K/uL (130-400); Platelet Estimate Decreased (Normal); Polychromasia 1+
--- NOTE | 2019-12-20 12:11 | Ultrasound Report ---
BILATERAL LOWER EXTREMITY VENOUS DOPPLER HISTORY: Bilateral leg swelling. COMPARISON STUDY: None. FINDINGS: There is normal compressibility, flow, and augmentation within the bilateral lower extremit y deep venous systems. IMPRESSION: No DVT within the right or left lower extremity. ACT 112: Negative or not required by law. Electronically signed by: Jose C Jaeger M.D. 12/20/2019 12:10 PM
--- NOTE | 2019-12-20 13:09 | History & Physical Report ---
Date of Service December 20, 2019 Assessment & Plan (1) Substernal chest pain: Began around 7:15am morning of admission. EKG shows tachycardia and RBBB, but is otherwise stable from 11/2019. Troponin was 0.319 on admission. - Trend troponins & EKGs - Will hold off on cardiology consult right now until second troponin returns. - Echo ordered (2) GAVE (gastric antral vascular ectasia): Has had many EGDs with argon laser. Last one in 09/2019. - Given hemoglobin drop and chest pain, will give 1 unit PRBCs, though may delay until tomorrow so he can get HD with it to prevent volume overload. - GI consult - Continue PPI BID - NPO @ midnight in case they feel another EGD is necessary - Repeat hemoglobin this evening (3) ESRD on dialysis: Makes a small amount of urine at baseline. Last HD was on 12/18, but had missed 4 sessions prior to that. - Nephrology consulted - Continue HTN regimen and nephrocaps (4) Diabetes mellitus, type 2: A1c was 5.8% in 08/2019. - Hold oral meds - DM diet - Lower long-acting to 10 units HS instead of home 15 units - Sliding scale insulin - Repeat A1c -> unclear if this will really give us useful information given his vast number of transfusions and ESRD, but may help us get a general sense of blood sugar levels (5) Hypertension: Resistant due to ESRD. In the ED, his BP is 160/75. - Continue home amlodipine, hydralazine, labetalol - Hold home lisinopril (6) Hypothyroidism: TSH was 42 in 10/2019 and has been consistently climbing. Unclear when his dose was last adjusted and if compliance is an issue. (Prior notes indicate it is.) - Continue Synthroid 350 mcg daily (7) Cirrhosis: Unknown cause. Today he demonstrates some mild slowness in responses, but easily arousable. - Continue lactulose (8) Obstructive sleep apnea: On 2L NC at night. - Continue O2 PRN (9) BPH (benign prostatic hyperplasia): Makes minimal urine at baseline. - PVRs as needed - Continue tamsulosin (10) Anemia of renal disease: Baseline anemia from ESRD, iron deficiency, and recurrent GI bleeding. Hgb usually 8-9. - Hgb was 7.6 on admission as above - Treat multimodally as per usual (11) DVT prophylaxis: SCDs - Will avoid heparin as able given the concern for GI bleed and his known GAVE History of Present Illness Primary Care Provider: Mahsa Wang, DO 79 yo M w/ hx of ESRD (with somewhat poor compliance with HD), HTN, cirrhosis, and recurrent GI bleeds due to GAVE who presents with chest pain. Patient is a poor historian who reports that the chest pain began at dinner today. When informed it is only noon, he says, "Oh yeah, I probably haven't had supper yet." but is not clear on whether the chest pain began yesterday or this morning. When asked what he was doing when the chest pain began, he replies "Nothing much." bu t again can't give more specific details. The chest pain does not radiate to the arm or jaw or back. The pain went away after about 3 hours per the patient, though he did not do anything to alleviate the pain. Per report, he was given nitro in the ambulance on the way to the hospital which relieved the pain. At the time of my interview, he is chest pain free and has no other symptoms to report. Allergies Allergy/AdvReac Type Severity Reaction Status Date / Time sucralfate [From Carafate] Allergy Mild upset Verified 11/11/19 10:26 dialysis tramadol AdvReac Severe disorented Verified 11/11/19 10:26 ,falling down lorazepam [From Ativan] AdvReac Intermediate unresponsive, Verified 11/11/19 10:26 confusion metformin AdvReac Intermediate CONFUSION Verified 11/11/19 10:26 Home Medications Home Medications Medication Instructions Recorded Confirmed Type docusate sodium 100 mg capsule 200 mg PO QAM #30 cap 01/19/19 11/11/19 Rx insulin detemir U-100 100 unit/mL 15 units SUBCUT HS ml 03/25/19 11/11/19 History subcutaneous solution Renal Caps 1 cap PO QDL 05/23/19 11/11/19 History calcium acetate(phosphat bind) 667 2,001 mg PO TIDM tab 06/02/19 11/11/19 History mg tablet insulin aspart U-100 [Novolog 0 sliding scale dose SUBCUT QID 06/06/19 11/11/19 History U-100 Insulin aspart] amlodipine 10 mg PO HS 06/13/19 11/11/19 History doxazosin [Cardura] 1 mg PO QDL 06/23/19 11/11/19 History folic acid 1 mg tablet 1 mg PO QDL 07/10/19 11/11/19 History lisinopril 40 mg PO QDL 07/23/19 11/11/19 History cyanocobalamin (vitamin B-12) 1,000 mcg PO HS 08/14/19 11/11/19 History [Vitamin B-12] ferrous sulfate 325 mg (65 mg 325 mg PO BID #60 tab 10/01/19 11/11/19 Rx iron) tablet,delayed release rosuvastatin 20 mg tablet 20 mg PO QPM #90 tab 10/01/19 11/11/19 Rx labetalol 200 mg tablet 200 mg PO BID #180 tab 10/08/19 11/11/19 Rx levothyroxine 150 mcg tablet 150 mcg PO DAILY #90 tab 10/13/19 11/11/19 Rx levothyroxine 200 mcg tablet 200 mcg PO QAM #90 tab 10/13/19 11/11/19 Rx bumetanide 1 mg tablet 2 mg PO BID #120 tab 10/20/19 11/11/19 Rx hydralazine 50 mg PO TIDM 10/20/19 11/11/19 History lactulose 20 gm PO DAILY #1500 ml 11/09/19 11/11/19 Rx tamsulosin 0.4 mg capsule 0.4 mg PO HS #90 cap 11/19/19 Rx gabapentin 100 mg capsule 200 mg PO HS #180 cap 11/25/19 Rx pantoprazole 40 mg tablet,delayed 40 mg PO BID #60 tab 11/26/19 Rx release Past Med/Surg History Medical History Anemia of renal disease Anxiety and depression Arthritis Asthma AVF (arteriovenous fistula) LEFT ARM BPH (benign prostatic hyperplasia) CAD (coronary artery disease) Chronic diastolic congestive heart failure Colon, diverticulosis 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, with long-term current use of insulin COPD (chronic obstructive pulmonary disease) Diabetes mellitus, type 2 Diabetic peripheral neuropathy Dialysis patient [facility] SATURDAY, SATURDAY, SATURDAY GAVE (gastric antral vascular ectasia) (Acute) GERD (gastroesophageal reflux disease) GI bleed (Inactive) Hearing difficulty Hyperlipidemia LDL goal <70 Hypertension (Acute) Hypnic jerks Hypothyroidism IgG monoclonal gammopathy Memory loss Mitral regurgitation Obstructive sleep apnea uses oxygen 2 l nc at hs Occlusion and stenosis of unspecified carotid artery On home oxygen therapy WEARS O2 AT 2L HS Osteoporosis Pulmonary hypertension Secondary hyperparathyroidism of renal origin Vitamin D deficiency Surgical History H/O cardiac catheterization many years ago - over 10 years no stents follow with trung (NO STENTS) H/O hemorrhoidectomy History of colonoscopy History of esophagogastroduodenoscopy (EGD) MULTIPLE History of tooth extraction Hx of cholecystectomy Family History Unknown Myocardial infarction Mother Diabetes Breast cancer late 70s Hypertension Gallbladder disease Father Diabetes Hypertension Brother Diabetes Kidney disease Hypertension Denies family history of Ovarian cancer Prostate cancer Lung cancer Colorectal cancer Social History Preferred Language: Iraqi Communication Ability: Effective Visual Impairment: No Limitations Hearing Ability: Hard of Hearing Handbag Stitcher Required: No Beliefs That Will Affect Care: None marital status: Current Living Situation: Spouse Current Living Situation Comment: lives with in [facility] current occupational status: disabled current occupation: works part-time at [email or web address] Other Information That Helps Us Care for You: No other: 4 children Feels Safe at Home: Yes Safety Concerns: Feels Safe At This Time Smoking Status: Unknown if ever smoked Hx Alcohol Use: Yes Alcohol type: beer Hx Substance Use: No Childhood Exposure to Second-Hand Smoke: No Diet Comment: regular caffeine: Yes during the past year weight has: remained stable Dental Care, Regularly: Yes Physical Activity Frequency: Does not Exercise Physical Activity Frequency Comment: limited due physical condition Seatbelt Use: sometimes Sunscreen Use: No Review of Systems Review of Systems: All systems reviewed & are unremarkable except as noted in HPI & below Physical Exam Constitutional: WD/WN, vitals as above Eyes: EOM intact bilaterally; no conjunctival abnormality ENMT: external ear and nose normal, oropharynx normal Neck: trachea midline, no thyromegaly normal visual inspection Respiratory: normal respiratory effort, lungs clear to auscultation no respiratory distress Cardiovascular: Rate/Rhythm: regular rate and + tachycardic Heart Sounds: normal S1 and normal S2 Vessels: no JVD Extremities: + edema (1+ bilaterally) Gastrointestinal (Abdomen): Inspection/Auscultation: abdomen normal to inspection; abdomen not distended Musculoskeletal: no cyanosis or clubbing, extremities motor strength 5/5 Skin: no rashes, warm and dry Neurologic: moves all extremities and awake Psychiatric: Orientation: alert, oriented to person and cooperative Results & Data Results & Data ([facility]) Vital Signs (Past 12 Hours) Vital Signs Temp Pulse Pulse Resp BP BP Pulse Ox 12/20/19 12:02 107 H 21 158/77 H 12/20/19 11:07 106 H 20 143/89 H 97 12/20/19 11:00 109 H 13 143/89 H 12/20/19 10:31 108 H 20 160/72 H 91 12/20/19 10:30 110 H 19 12/20/19 10:09 109 H 18 175/81 H 94 12/20/19 10:08 109 H 21 96 12/20/19 10:06 36.9 C 110 H 14 157/74 H 86 L 12/20/19 09:55 97 PG Care Time/CCT Total # of Minutes Spent Total Time Spent with Patient: Total time spent is greater than 50% in coordination of care (as documented) at patient's floor/unit and/or counseling patient: Coding Level of Care Code 29979 Initial Inpt Care Lvl 3 Diagnoses Substernal chest pain R07.2 GAVE (gastric antral vascular ectasia) K31.819 ESRD on dialysis N18.6; Z99.2 Diabetes mellitus, type 2 E11.22; N18.6; Z79.4; Z99.2 Diabetes mellitus mcc insulin use: with long term care administrator use Diabetes mellitus complication status: with kidney complications Diabetes mellitus complication detail: with chronic kidney disease Chronic kidney disease stage: on chronic dialysis Hypertension I10 Hypertension type: unspecified Hypothyroidism E03.9 Hypothyroidism type: unspecified Cirrhosis K74.60 Ascites presence: unspecified Hepatic cirrhosis type: unspecified hepatic cirrhosis Obstructive sleep apnea G47.33 BPH (benign prostatic hyperplasia) N40.0 Lower urinary tract symptom presence: unspecified whether lower urinary tract symptoms present Anemia of renal disease N18.9; D63.1 DVT prophylaxis Z29.9 (1) Diabetes mellitus, type 2 Diabetes mellitus mcc insulin use: with mcc use Diabetes mellitus complication status: with kidney complications Diabetes mellitus complication detail: with chronic kidney disease Chronic kidney disease stage: on chronic dialysis Qualified Code(s): E11.22 - Type 2 diabetes mellitus with diabetic chronic kidney disease; N18.6 - End stage renal disease; Z79.4 - skilled nursing (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 (2) Hypertension Hypertension type: unspecified Qualified Code(s): I10 - Essential (primary) hypertension (3) Hypothyroidism Hypothyroidism type: unspecified Qualified Code(s): E03.9 - Hypothyroidism, unspecified (4) Cirrhosis Ascites presence: unspecified Hepatic cirrhosis type: unspecified hepatic cirrhosis Qualified Code(s): K74.60 - Unspecified cirrhosis of liver (5) BPH (benign prostatic hyperplasia) Lower urinary tract symptom presence: unspecified whether lower urinary tract symptoms present Qualified Code(s): N40.0 - Benign prostatic hyperplasia without lower urinary tract symptoms
[2019-12-20] MEDS ORDERED: DEXTROSE 50% 50 ML SYRINGE IV PRN (14:41)
[2019-12-20] MEDS ORDERED: GLUCOSE 40% GEL 15 GM TUBE PO PRN (14:41)
[2019-12-20] MEDS ORDERED: GLUCOSE 10 TABS/TUBE PO PRN (14:41)
[2019-12-20] MEDS ORDERED: ACETAMINOPHEN 325 MG TAB PO PRN (14:41)
[2019-12-20] MEDS ORDERED: CARBOHYDRATES FOR HYPOGLYCEMIA PO PRN (14:41)
[2019-12-20] MEDS ORDERED: ONDANSETRON INJ 2 MG/ML 2 ML VIAL IV PRN (14:41)
[2019-12-20] MEDS ORDERED: GLUCAGON FOR INJ 1 MG VIAL SQ PRN (14:41)
[2019-12-20] MEDS: BUMETANIDE 1 MG TAB PO SCH (17:55)
[2019-12-20] MEDS: HydrALAZINE TAB 50 MG TAB PO SCH (17:55)
[2019-12-20] MEDS: CALCIUM ACETATE 667 MG CAP/TAB PO SCH (17:56)
[2019-12-20] MEDS: INSULIN ASPART 100 UNITS/ML 3 ML PEN SC SCH ×2 (17:56→21:35)
--- NOTE | 2019-12-20 18:08 | Consultation Report ---
DATE OF CONSULTATION: 12/20/2019 GI CONSULT NOTE REASON FOR EVALUATION: Melena and anemia. HISTORY OF PRESENT ILLNESS: The patient is a 79-year-old male well known to me for frequent episodes of anemia and GI bleeding. He has had extensive workups here and at [facility]. He has gastric antral vascular ectasia that bleeds periodically and requires argon plasma coagulation. As an outpatient, the patient was set up to have blood transfusions any time his blood count was at 8 or lower. He presented to the ER 2 days ago with confusion and then again yesterday with chest pain. He was found to have a hemoglobin of 7.6 and has been having melenic stools for the last 4 days. He has not been vomiting any blood according to the patient. The patient is relatively stable hemodynamically and GI consultation has been requested. PAST MEDICAL HISTORY: Remarkable for end-stage renal disease, on hemodialysis on Tuesdays, and Saturdays. He has AV fistula on his left arm. He has congestive heart failure, diabetes, COPD, acid reflux, gastric antral vascular ectasia, decreased hearing, hyperlipidemia, hypertension, hypothyroidism, mitral regurgitation, obstructive sleep apnea, carotid artery stenosis, osteoporosis, vitamin D deficiency, secondary hyperparathyroidism. He has had a hemorrhoidectomy, cholecystectomy and tooth extractions. MEDICATIONS: Per list. ALLERGIES: TRAMADOL, LORAZEPAM AND METFORMIN. SOCIAL HISTORY: The patient is and lives with his spouse. Former smoker. Does consume some alcohol rarely. REVIEW OF SYSTEMS: Remarkable for fatigue and decreased memory. PHYSICAL EXAMINATION: GENERAL: The patient appears chronically ill. SKIN: He has an AV fistula in his left forearm. He has multiple ecchymoses on his arms and legs. EYES: He has strabismus of the left eye. VITAL SIGNS: Blood pressure is 152/71, pulse 106. He is afebrile. O2 saturation on room air is 89%. ABDOMEN: Shows a right upper quadrant scar from a previous cholecystectomy. IMPRESSION AND PLAN: The patient has recurrent anemia. The patient will undergo EGD tomorrow with argon plasma coagulation of his gastric antral vascular ectasia. He will probably require blood transfusion as well to get him above 8, which is our target.
[2019-12-20] MEDS ORDERED: SODIUM CHLORIDE 0.9% 250 ML IV PRN (19:25)
[2019-12-20] MEDS: INSULIN DETEMIR FLEXPEN/FLEX TOUCH 100 UNITS/ML 3ML SC SCH (21:36)
[2019-12-20] MEDS: ROSUVASTATIN CALCIUM 20 MG TAB PO SCH (21:36)
[2019-12-20] MEDS: LABETALOL HCL 200 MG TAB PO SCH (21:37)
[2019-12-20] MEDS: AMLODIPINE BESYLATE 5 MG TAB PO SCH (21:37)
[2019-12-20] MEDS: PANTOprazole 40 MG TAB PO SCH (21:38)
[2019-12-20] MEDS: CYANOCOBALAMIN 500 MCG TABLET (VITAMIN B-12) PO SCH (21:38)
[2019-12-21] MEDS: LEVOTHYROXINE SODIUM 150 MCG TABLET PO SCH (06:31)
[2019-12-21] MEDS: LEVOTHYROXINE SODIUM 200 MCG TABLET PO SCH (06:31)
[2019-12-21] MEDS ORDERED: SODIUM CHLORIDE 0.9% 1000ML 1,000 ML IV PRN (07:00)
[2019-12-21 07:41] LABS: Hematocrit (blood only) 23.4 % (42-52); Hemoglobin 7.5 g/dL (14.0-18.0); Mean Corpuscular Hemoglobin 29.8 pg (25-34); Mean Corpuscular Hgb Conc 32.1 g/dL (32-36); Mean Corpuscular Volume 92.9 fL (80-100); RDW Coefficient of Variation 17.2 % (11.5-14.5); RDW Standard Deviation 58.6 fL (36.4-46.3); Red Blood Count 2.52 M/uL (4.7-6.1); White Blood Count 2.46 K/uL (4.8-10.8)
[2019-12-21 07:49] LABS: Mean Platelet Volume 11.5 fL (7.4-10.4); Platelet Count 99 K/uL (130-400)
[2019-12-21] MEDS ORDERED: SODIUM CHLORIDE 0.9% 250 ML IV PRN (08:18)
[2019-12-21 08:23] LABS: BUN Creatinine Ratio 10.7 (10-20); Calcium 8.4 mg/dl (8.5-10.1); Est GFR (African American) 5.5; Est GFR (Non-African American) 4.8; Magnesium 2.1 mg/dl (1.8-2.4); Phosphorus 6.4 mg/dl (2.5-4.9); Potassium 4.3 mmol/L (3.5-5.1); Troponin I 3.9 ng/ml (0-0.045)
--- NOTE | 2019-12-21 08:23 | Nephrology Consultation ---
Date of Consultation December 21, 2019 Assessment & Plan (1) ESRD on dialysis: Orders for HD today have been entered into the EMR and discussed with the HD nurse. Will plan for 3 hr treatment for additional clearance and UF. UF goal 2 L. EDW 88 kg. Will continue daily UF to improve volume status, defer aggressive UFR. PRBC 2 units have been ordered to be given during dialysis. 3K bath. Plan to resume TTS schedule tomorrow. Medications are appropriately dosed for kidney function. (2) Anemia of renal disease: 1 u PRBC provided overnight. Additional 2 units to be provided with HD today. Micera 225 given on 12/18. Repeat level tomorrow AM prior to HD. EGD scheduled per GI. (3) GAVE (gastric antral vascular ectasia): GI consult reviewed. EGD scheduled. (4) Diabetes mellitus, type 2: A1c was 5.8% in 08/2019. - Hold oral meds - DM diet - Lower long-acting to 10 units HS instead of home 15 units - Sliding scale insulin - Repeat A1c -> unclear if this will really give us useful information given his vast number of transfusions and ESRD, but may help us get a general sense of blood sugar levels (5) Hypertension: BP acceptable. No change to home therapy necessary at this time. Continue home amlodipine, hydralazine, labetalol. May resume DEMETRIS. (6) Cirrhosis: Unfortunately, Augie suffers from multiple terminal medical comorbidities including coronary disease, GAVE requiring frequent PRBC transfusion support, cirrhosis, ESRD, and dementia. His condition is guarded. Goals of care continue to be reviewed. I was not able to adequately assess comprehension this morning. Family meeting and palliative care consultation would be helpful to assist with future medical complications and plan of care. History of Present Illness Reason for Consultation: ESRD on HD Requesting Physician: Stephen Gold MD Attending Physician: Stephen Gold MD History of Present Illness Mr. Mcintyre is a 79 year old white male with ESRD. I discussed the patient's case with the Dr. Gold yesterday AM and reviewed recent history with nursing staff at [facility]. I reviewed the plan of care with our inpatient dialysis nurse auto service station attendant this morning. Plan of care was reviewed with Dr. Gold and Dr. Daugherty this morning. Mr. Mcintyre has ESRD due to diabetic nephropathy. He has been on IHD since 12/16 ([facility] TTS 4hr 2K 2.5Ca F-200NR EDW 88 kg - primary Senior Net C Developer Dr. Briceno). Augie has a significant history of non-compliance with treatments as well as multiple associated hospitalizations. Augie was recently admitted to [facility] from 11/02-11/08 requiring emergent dialysis after multiple missed treatments as well as requiring PRBC transfusion support for acute on chronic anemia. He received 2 units of PRBC transfusion support during the admission. No significant evidence of GI bleeding was observed. After discharge, he regularly attended outpatient dialysis treatments with assistance/transportation provided by his until 12/07. He refused to go to additional treatments after December 07. He attended his first treatment since 12/07 on 12/19/19. He states that he simply did not feel that he needed to go but that he now recognizes his error. His brought him to dialysis on the . Staff from the dialysis unit report that she was very overwhelmed and reported that Augie has been increasingly confused and dependent at home. She expressed that she could no longer take care of him at home in the condition he was in. They discussed concerns about fci safety at home; she continues to struggle with this. Following dialysis, he was brought to the hospital for additional evaluation. He received Micera 225 mg and Venofer 100 with HD. Augie was 10 kg above his EDW. 4.4 L of fluid were removed. He tolerated the procedure well. In the ER, ROS was notable for chest pain. Troponin elevated. 1 unit PRBC transfusion support provided overnight. Hemoglobin migdalia from 7.5 to 8.1 but is 7.5 again this morning. Unfortunately, due to significant history of GI bleeding as well as acute on chronic anemia, heparin and antiplatelet therapy have been deferred. Medical history is significant for GAVE, HTN, AODM, vascular dementia, IgG monoclonal gammopathy, EFREN, BPH, hypothyroidism, hearing loss, cirrhosis, and CHF w/ diastolic dysfunction. Allergies Allergy/AdvReac Type Severity Reaction Status Date / Time sucralfate [From Carafate] Allergy Mild upset Verified 11/11/19 10:26 dialysis tramadol AdvReac Severe disorented Verified 11/11/19 10:26 ,falling down lorazepam [From Ativan] AdvReac Intermediate unresponsive, Verified 11/11/19 10:26 confusion metformin AdvReac Intermediate CONFUSION Verified 11/11/19 10:26 Home Medications Home Medications Medication Instructions Recorded Confirmed Type docusate sodium 100 mg capsule 200 mg PO QAM #30 cap 01/19/19 12/20/19 Rx insulin detemir U-100 100 unit/mL 15 units SUBCUT HS ml 03/25/19 12/20/19 History subcutaneous solution Renal Caps 1 cap PO QDL 05/23/19 12/20/19 History calcium acetate(phosphat bind) 667 2,001 mg PO TIDM tab 06/02/19 12/20/19 History mg tablet insulin aspart U-100 [Novolog 0 sliding scale dose SUBCUT QID 06/06/19 12/20/19 History U-100 Insulin aspart] amlodipine 10 mg PO HS 06/13/19 12/20/19 History doxazosin [Cardura] 1 mg PO QDL 06/23/19 12/20/19 History folic acid 1 mg tablet 1 mg PO QDL 07/10/19 12/20/19 History lisinopril 40 mg PO QDL 07/23/19 12/20/19 History cyanocobalamin (vitamin B-12) 1,000 mcg PO HS 08/14/19 12/20/19 History [Vitamin B-12] ferrous sulfate 325 mg (65 mg 325 mg PO BID #60 tab 10/01/19 12/20/19 Rx iron) tablet,delayed release rosuvastatin 20 mg tablet 20 mg PO QPM #90 tab 10/01/19 12/20/19 Rx labetalol 200 mg tablet 200 mg PO BID #180 tab 10/08/19 12/20/19 Rx levothyroxine 150 mcg tablet 150 mcg PO DAILY #90 tab 10/13/19 12/20/19 Rx levothyroxine 200 mcg tablet 200 mcg PO QAM #90 tab 10/13/19 12/20/19 Rx bumetanide 1 mg tablet 2 mg PO BID #120 tab 10/20/19 12/20/19 Rx hydralazine 50 mg PO TIDM 10/20/19 12/20/19 History lactulose 20 gm PO DAILY #1500 ml 11/09/19 12/20/19 Rx tamsulosin 0.4 mg capsule 0.4 mg PO HS #90 cap 11/19/19 12/20/19 Rx gabapentin 100 mg capsule 200 mg PO HS #180 cap 11/25/19 12/20/19 Rx pantoprazole 40 mg tablet,delayed 40 mg PO BID #60 tab 11/26/19 12/20/19 Rx release Patient History Medical History Anemia of renal disease Anxiety and depression Arthritis Asthma AVF (arteriovenous fistula) LEFT ARM BPH (benign prostatic hyperplasia) CAD (coronary artery disease) Chronic diastolic congestive heart failure Colon, diverticulosis 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, with long-term current use of insulin COPD (chronic obstructive pulmonary disease) Diabetes mellitus, type 2 Diabetic peripheral neuropathy Dialysis patient [facility] SATURDAY, SATURDAY, SATURDAY GAVE (gastric antral vascular ectasia) (Acute) GERD (gastroesophageal reflux disease) GI bleed (Inactive) Hearing difficulty Hyperlipidemia LDL goal <70 Hypertension (Acute) Hypnic jerks Hypothyroidism IgG monoclonal gammopathy Memory loss Mitral regurgitation Obstructive sleep apnea uses oxygen 2 l nc at hs Occlusion and stenosis of unspecified carotid artery On home oxygen therapy WEARS O2 AT 2L HS Osteoporosis Pulmonary hypertension Secondary hyperparathyroidism of renal origin Vitamin D deficiency Surgical History H/O cardiac catheterization many years ago - over 10 years no stents follow with trung (NO STENTS) H/O hemorrhoidectomy History of colonoscopy History of esophagogastroduodenoscopy (EGD) MULTIPLE History of tooth extraction Hx of cholecystectomy Family History Unknown Myocardial infarction Mother Diabetes Breast cancer late 70s Hypertension Gallbladder disease Father Diabetes Hypertension Brother Diabetes Kidney disease Hypertension Denies family history of Ovarian cancer Prostate cancer Lung cancer Colorectal cancer Social History Preferred Language: Croatian Communication Ability: Effective Visual Impairment: No Limitations Hearing Ability: Hard of Hearing Hazard Waste Handler Required: No Beliefs That Will Affect Care: None marital status: Current Living Situation: Spouse Current Living Situation Comment: lives with in [facility] current occupational status: disabled current occupation: works part-time at [employer] Other Information That Helps Us Care for You: No other: 4 children Feels Safe at Home: Yes Safety Concerns: Feels Safe At This Time Smoking Status: Unknown if ever smoked Hx Alcohol Use: Yes Alcohol type: beer Hx Substance Use: No Childhood Exposure to Second-Hand Smoke: No Diet Comment: regular caffeine: Yes during the past year weight has: remained stable Dental Care, Regularly: Yes Physical Activity Frequency: Does not Exercise Physical Activity Frequency Comment: limited due physical condition Seatbelt Use: sometimes Sunscreen Use: No Review of Systems Review of Systems: All systems reviewed & are unremarkable except as noted in HPI & below Constitutional: + fatigue and + weight gain; no fever, no chills and no anorexia Respiratory: no dyspnea Cardiovascular: + chest pain (resolved this morning) and + orthopnea (chronic); no palpitations and no edema Gastrointestinal: no nausea, no change in stools and no melena Genitourinary: + as per Subjective / HPI (continues to make some urine); no problem reported Psychiatric: + behavioral changes and + confusion Hematologic / Lymphatic: + easy bruising; no easy bleeding Physical Exam Constitutional: well developed; no acute distress Eyes: no scleral abnormality and no corneal abnormality ENMT: Mouth: no oral mucosal abnormality and oral mucous membranes not dry Neck: normal visual inspection and trachea midline Respiratory: normal respiratory effort Auscultation: lungs clear to auscultation bilaterally Cardiovascular: Rate/Rhythm: regular rate Heart Sounds: normal S1, normal S2 and + murmur Vessels: + JVD Extremities: + edema (+1 LE ) and + AV fistula (L RC with good thrill and bruit) Gastrointestinal (Abdomen): Percussion/Palpation: abdomen soft; abdomen nontender Musculoskeletal: Extremities: no cyanosis and no clubbing Skin: normal turgor; no lesions Neurologic: Motor/Sensory: no tremor and no asterixis Psychiatric: Orientation: alert and oriented x 3 Results & Data Vital Signs (Past 12 Hours) Vital Signs Temp Pulse Pulse Resp BP BP Pulse Ox 12/21/19 07:03 36.7 C 55 L 16 146/68 H 92 12/21/19 07:00 55 L 12/21/19 04:02 36.8 C 34 L 16 150/63 H 90 12/20/19 22:50 36.6 C 62 18 177/69 H 90 12/20/19 22:15 36.6 C 62 18 177/69 H 90 12/20/19 21:15 36.6 C 62 18 165/66 H 90 12/20/19 20:45 36.6 C 62 18 158/63 H 90 12/20/19 20:43 36.7 C 61 18 160/64 H 91 12/20/19 20:30 36.8 C 61 18 154/66 H 90 Laboratory Results Laboratory Results - last 24 hr 12/20/19 12/20/19 12/20/19 11:13 11:13 11:13 WBC 3.08 L RBC 2.57 L Hgb 7.6 L Hct 24.4 L MCV 94.9 MCH 29.6 MCHC 31.1 L RDW Std Deviation 58.8 H RDW Coeff of Jose C 16.9 H Plt Count 96 L MPV 11.8 H Immature Gran % (Auto) 0.0 Neut % (Auto) 71.9 Lymph % (Auto) 13.6 Greenlee % (Auto) 9.7 Eos % (Auto) 4.2 Baso % (Auto) 0.6 Neut # (Auto) 2.21 Lymph # (Auto) 0.42 L Greenlee # (Auto) 0.30 Eos # (Auto) 0.13 Baso # (Auto) 0.02 Immature Gran # (Auto) 0.00 Platelet Estimate Decreased L Polychromasia 1+ Hypochromasia Present Basophilic Stippling 1+ Ovalocytes 1+ PT 12.9 H INR 1.2 H APTT 30.8 PTT Ratio 1.1 Sodium 141 Potassium 4.4 Chloride 104 Carbon Dioxide 28 Anion Gap 9.0 BUN 77 H Creatinine 8.32 H* Est Cr Clr Drug Dosing Not Reportable Est GFR ( Amer) 6.5 Est GFR (Non-Af Amer) 5.6 BUN/Creatinine Ratio 9.3 L Glucose 140 H POC Glucose Estimat Average Glucose Hemoglobin A1c Lactate Calcium 8.6 Phosphorus Magnesium Total Bilirubin 0.5 AST 8 L ALT 16 Alkaline Phosphatase 94 Troponin I 0.319 H* Total Protein 6.0 L Albumin 2.9 L Globulin 3.1 Albumin/Globulin Ratio 0.9 Lipase 156 Blood Type Antibody Screen Crossmatch 12/20/19 12/20/19 12/20/19 11:13 15:01 16:34 WBC RBC Hgb Hct MCV MCH MCHC RDW Std Deviation RDW Coeff of Jose C Plt Count MPV Immature Gran % (Auto) Neut % (Auto) Lymph % (Auto) Greenlee % (Auto) Eos % (Auto) Baso % (Auto) Neut # (Auto) Lymph # (Auto) Greenlee # (Auto) Eos # (Auto) Baso # (Auto) Immature Gran # (Auto) Platelet Estimate Polychromasia Hypochromasia Basophilic Stippling Ovalocytes PT INR APTT PTT Ratio Sodium Potassium Chloride Carbon Dioxide Anion Gap BUN Creatinine Est Cr Clr Drug Dosing Est GFR ( Amer) Est GFR (Non-Af Amer) BUN/Creatinine Ratio Glucose POC Glucose 169 H Estimat Average Glucose Hemoglobin A1c Lactate 0.7 Calcium Phosphorus Magnesium Total Bilirubin AST ALT Alkaline Phosphatase Troponin I Total Protein Albumin Globulin Albumin/Globulin Ratio Lipase Blood Type B Positive Antibody Screen NEGATIVE Crossmatch See Detail 12/20/19 12/20/19 12/21/19 17:03 20:37 00:41 WBC RBC Hgb 8.1 L Hct MCV MCH MCHC RDW Std Deviation RDW Coeff of Jose C Plt Count MPV Immature Gran % (Auto) Neut % (Auto) Lymph % (Auto) Greenlee % (Auto) Eos % (Auto) Baso % (Auto) Neut # (Auto) Lymph # (Auto) Greenlee # (Auto) Eos # (Auto) Baso # (Auto) Immature Gran # (Auto) Platelet Estimate Polychromasia Hypochromasia Basophilic Stippling Ovalocytes PT INR APTT PTT Ratio Sodium Potassium Chloride Carbon Dioxide Anion Gap BUN Creatinine Est Cr Clr Drug Dosing Est GFR ( Amer) Est GFR (Non-Af Amer) BUN/Creatinine Ratio Glucose POC Glucose 146 H Estimat Average Glucose Hemoglobin A1c Lactate Calcium Phosphorus Magnesium Total Bilirubin AST ALT Alkaline Phosphatase Troponin I 0.924 H* Total Protein Albumin Globulin Albumin/Globulin Ratio Lipase Blood Type Antibody Screen Crossmatch 12/21/19 12/21/19 12/21/19 07:26 07:26 07:26 WBC 2.46 L RBC 2.52 L Hgb 7.5 L Hct 23.4 L MCV 92.9 MCH 29.8 MCHC 32.1 RDW Std Deviation 58.6 H RDW Coeff of Jose C 17.2 H Plt Count 99 L MPV 11.5 H Immature Gran % (Auto) Neut % (Auto) Lymph % (Auto) Greenlee % (Auto) Eos % (Auto) Baso % (Auto) Neut # (Auto) Lymph # (Auto) Greenlee # (Auto) Eos # (Auto) Baso # (Auto) Immature Gran # (Auto) Platelet Estimate Polychromasia Hypochromasia Basophilic Stippling Ovalocytes PT INR APTT PTT Ratio Sodium 144 Potassium 4.3 Chloride 105 Carbon Dioxide 28 Anion Gap 11.0 BUN 101 H Creatinine 9.47 H* D Est Cr Clr Drug Dosing 8.0 Est GFR ( Amer) 5.5 Est GFR (Non-Af Amer) 4.8 BUN/Creatinine Ratio 10.7 Glucose 80 POC Glucose Estimat Average Glucose Pending Hemoglobin A1c Pending Lactate Calcium 8.4 L Phosphorus 6.4 H Magnesium 2.1 Total Bilirubin AST ALT Alkaline Phosphatase Troponin I 3.900 H* Total Protein Albumin Globulin Albumin/Globulin Ratio Lipase Blood Type Antibody Screen Crossmatch 12/21/19 08:15 WBC RBC Hgb Hct MCV MCH MCHC RDW Std Deviation RDW Coeff of Jose C Plt Count MPV Immature Gran % (Auto) Neut % (Auto) Lymph % (Auto) Greenlee % (Auto) Eos % (Auto) Baso % (Auto) Neut # (Auto) Lymph # (Auto) Greenlee # (Auto) Eos # (Auto) Baso # (Auto) Immature Gran # (Auto) Platelet Estimate Polychromasia Hypochromasia Basophilic Stippling Ovalocytes PT INR APTT PTT Ratio Sodium Potassium Chloride Carbon Dioxide Anion Gap BUN Creatinine Est Cr Clr Drug Dosing Est GFR ( Amer) Est GFR (Non-Af Amer) BUN/Creatinine Ratio Glucose POC Glucose 100 H Estimat Average Glucose Hemoglobin A1c Lactate Calcium Phosphorus Magnesium Total Bilirubin AST ALT Alkaline Phosphatase Troponin I Total Protein Albumin Globulin Albumin/Globulin Ratio Lipase Blood Type Antibody Screen Crossmatch PG Care Time/CCT Total # of Minutes Spent Total Time Spent with Patient: Total time spent is greater than 50% in coordination of care (as documented) at patient's floor/unit and/or counseling patient: Coding Level of Care Code 67834 Inpt Consult Level 5 Diagnoses ESRD on dialysis N18.6; Z99.2 Anemia of renal disease N18.9; D63.1 GAVE (gastric antral vascular ectasia) K31.819 Diabetes mellitus, type 2 E11.22; N18.6; Z79.4; Z99.2 Diabetes mellitus long term care social worker insulin use: with fci use Diabetes mellitus complication status: with kidney complications Diabetes mellitus complication detail: with chronic kidney disease Chronic kidney disease stage: on chronic dialysis Hypertension I10 Hypertension type: unspecified Cirrhosis K74.60 Ascites presence: unspecified Hepatic cirrhosis type: unspecified hepatic cirrhosis (1) Diabetes mellitus, type 2 Diabetes mellitus long term care social worker insulin use: with fci use Diabetes mellitus complication status: with kidney complications Diabetes mellitus complication detail: with chronic kidney disease Chronic kidney disease stage: on chronic dialysis Qualified Code(s): E11.22 - Type 2 diabetes mellitus with diabetic chronic kidney disease; N18.6 - End stage renal disease; Z79.4 - exterminator (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 (2) Hypertension Hypertension type: unspecified Qualified Code(s): I10 - Essential (primary) hypertension (3) Cirrhosis Ascites presence: unspecified Hepatic cirrhosis type: unspecified hepatic cirrhosis Qualified Code(s): K74.60 - Unspecified cirrhosis of liver
[2019-12-21] MEDS: INSULIN ASPART 100 UNITS/ML 3 ML PEN SC SCH ×4 (08:59→20:11)
[2019-12-21] MEDS: HydrALAZINE TAB 50 MG TAB PO SCH ×3 (09:00→17:19)
[2019-12-21] MEDS: LABETALOL HCL 200 MG TAB PO SCH ×2 (09:00→20:12)
[2019-12-21] MEDS: BUMETANIDE 1 MG TAB PO SCH ×2 (09:00→17:18)
[2019-12-21] MEDS: CALCIUM ACETATE 667 MG CAP/TAB PO SCH ×3 (09:00→17:19)
[2019-12-21] MEDS: PANTOprazole 40 MG TAB PO SCH ×2 (09:01→20:12)
[2019-12-21 09:29] LABS: Estimated Average Glucose 128 mg/dl; Hemoglobin A1C 6.1 % (4.5-5.6)
--- NOTE | 2019-12-21 09:46 | Cardiology Consultation ---
Date of Consultation December 21, 2019 Assessment & Plan (1) Non-ST elevation (NSTEMI) myocardial infarction: (2) CAD (coronary artery disease): (3) Hypertension: (4) Acute blood loss anemia: ASSESSMENT/PLAN: 1. NSTEMI: His last cardiac catheterization years ago demonstrated nonobstructive CAD, but it would not be surprising to have more advanced disease at this point. He had angina yesterday in the setting of hemoglobin less than 8 with active GI bleeding with melanotic stools per nursing staff. He has not been on anti-platelet therapy due to recurrent GI bleeding requiring many transfusions. He is currently angina free. Would not pursue cardiac catheterization as he is not a candidate for anti-platelet therapy that would be necessary following PCI and is also not a good candidate for CABG. Beta-amberly (labetalol). Continue statin therapy. He is on hydralazine and therefore will add nitrate therapy to see if it Offers any benefit from future angina however the main issue currently appears to be his worsening anemia as the likely reason for his myocardial infarction and anginal episode yesterday. Check echocardiogram. 2. CAD: Nonobstructive when last evaluated with angiography on 12/19/2007 but angina yesterday with NSTEMI in the setting of GI bleed and significant anemia. Conservative treatment as above as he is not a candidate for anti-platelet therapy. Continue beta-amberly, statin, and will add nitrate therapy. Treat anemia. 3. Hypertension: He has been hypertensive. Optimize blood pressure control as tolerated with dialysis. Will defer blood pressure management to Nephrology. 4. Acute blood loss anemia: He has been diagnosed with GAVE and follows closely with GI. EGD scheduled later today. He would be high risk for this procedure in the setting of NSTEMI but given the fact that his anemia was likely the tipping point for his NSTEMI, it would be important to address. As per GI. 5. Disposition: I will be away from the hospital tomorrow. Please call with any other questions or concerns. Patient care has been discussed with primary hospitalist, Dr. Gold, and shift coordinator, Dr. Gracia. Highly complex medical issues. Thank you for allowing me to participate in the care of your patient. Please call for any other questions or concerns. Sincerely, Donato Daugherty M.D. History of Present Illness Reason for Consultation: NSTEMI Requesting Physician: Dr. Gold Attending Physician: Stephen Gold MD History of Present Illness Mr. Mcintyre is a very pleasant 79-year-old gentleman with a longstanding history of hypertension, diabetes, dyslipidemia, ESRD on HD (T/H/Sat), coronary artery disease, COPD, and pericardial effusion. He also has history of GI bleeding (GAVE) with anemia, requiring multiple transfusions. He has had the following studies/procedures: 1. Cardiac catheterization 12/19/2007: LMCA 25%. Proximal to mid LAD 25-50%. Mid LAD 25%. Mid circumflex 25%. Codominant system. 2. Echo 11/01/14: EF 55%. Severe LVH. Moderate biatrial dilation. Mild MR. Moderate pericardial effusion. RVSP 63 mm Hg. 3. Nuclear stress 11/03/2014: Very small area of inferolateral reversibility in the mid to distal LV. EF 60%. Normal wall motion. 4. Echo 11/05/2014: EF 60-65%. Severe LVH. Moderate biatrial dilation. Mild MR. moderate pericardial effusion. RVSP 61mmHg. 5. Echo 02/14/2015: Mildly dilated LV with normal systolic function. Normal wall motion. EF 60-65%. Severe LVH. Mild biatrial dilation. PFO. Moderate MR. Mild to moderate TR. Mild to moderate PI. Trace pericardial effusion. RVSP 56mmHg. 6. Echo 01/11/2016: Mild LV dilation with normal systolic function. EF 55- 60%. No regional wall motion abnormalities. Severe concentric LVH. Mild RV dilation with normal systolic function. Moderate biatrial dilation. Mild to moderate eccentric MR. Sclerotic aortic valve without significant stenosis. RVSP 44. No pericardial effusion. 7. Nuclear stress 03/09/2016: Negative for ischemia or infarct. EF 60%. Normal wall motion. 8. Echo 09/12/2018: Moderately dilated LV with normal systolic function. EF 60-65%. Normal wall motion. Severe concentric LVH. Mildly dilated RV with normal systolic function. Severe biatrial dilation. Sclerotic aortic valve. Mild to moderate MR. RVSP 68. He was admitted yesterday with chest discomfort. He states that he had substernal chest discomfort without radiation. It occurred after he got out of bed but persisted for approximately 3 hours. It resolved shortly after nitroglycerin which was administered by EMS. He has not had any further chest discomfort. He denies shortness of breath, syncope, near-syncope, palpitations, edema. He states that he has not been experiencing chest discomfort other than yesterday's episode. While here, he was found to have a hemoglobin of 7.6 and was transfused 1 unit of packed red blood cells. His repeat hemoglobin increased to 8.1 but once again is 7.5 this morning. When asked about bleeding, he states that he cannot comment on that. Nursing staff however was in the room and stated that he has been having small melanotic stools since admission. He is scheduled to receive another 2 units of packed red blood cells today. He has been intermittently noncompliant with hemodialysis and apparently skipped 4 consecutive sessions before Saturday when he presented as an outpatient for dialysis. He is scheduled for dialysis today. He has not been on anti-platelet therapy due to recurrent GI bleeding and he has received reportedly 70 or more transfusions. Review of systems: As above. Review of systems otherwise negative/unremarkable. Family history: No known premature CAD. Social history: Quit smoking more than 50 years ago. No significant alcohol. No drugs. He is and lives at home with his and son. He has 4 children. He was unaccompanied in his hospital room. Allergies Allergy/AdvReac Type Severity Reaction Status Date / Time sucralfate [From Carafate] Allergy Mild upset Verified 11/11/19 10:26 dialysis tramadol AdvReac Severe disorented Verified 11/11/19 10:26 ,falling down lorazepam [From Ativan] AdvReac Intermediate unresponsive, Verified 11/11/19 10:26 confusion metformin AdvReac Intermediate CONFUSION Verified 11/11/19 10:26 Home Medications Home Medications Medication Instructions Recorded Confirmed Type docusate sodium 100 mg capsule 200 mg PO QAM #30 cap 01/19/19 12/20/19 Rx insulin detemir U-100 100 unit/mL 15 units SUBCUT HS ml 03/25/19 12/20/19 History subcutaneous solution Renal Caps 1 cap PO QDL 05/23/19 12/20/19 History calcium acetate(phosphat bind) 667 2,001 mg PO TIDM tab 06/02/19 12/20/19 History mg tablet insulin aspart U-100 [Novolog 0 sliding scale dose SUBCUT QID 06/06/19 12/20/19 History U-100 Insulin aspart] amlodipine 10 mg PO HS 06/13/19 12/20/19 History doxazosin [Cardura] 1 mg PO QDL 06/23/19 12/20/19 History folic acid 1 mg tablet 1 mg PO QDL 07/10/19 12/20/19 History lisinopril 40 mg PO QDL 07/23/19 12/20/19 History cyanocobalamin (vitamin B-12) 1,000 mcg PO HS 08/14/19 12/20/19 History [Vitamin B-12] ferrous sulfate 325 mg (65 mg 325 mg PO BID #60 tab 10/01/19 12/20/19 Rx iron) tablet,delayed release rosuvastatin 20 mg tablet 20 mg PO QPM #90 tab 10/01/19 12/20/19 Rx labetalol 200 mg tablet 200 mg PO BID #180 tab 10/08/19 12/20/19 Rx levothyroxine 150 mcg tablet 150 mcg PO DAILY #90 tab 10/13/19 12/20/19 Rx levothyroxine 200 mcg tablet 200 mcg PO QAM #90 tab 10/13/19 12/20/19 Rx bumetanide 1 mg tablet 2 mg PO BID #120 tab 10/20/19 12/20/19 Rx hydralazine 50 mg PO TIDM 10/20/19 12/20/19 History lactulose 20 gm PO DAILY #1500 ml 11/09/19 12/20/19 Rx tamsulosin 0.4 mg capsule 0.4 mg PO HS #90 cap 11/19/19 12/20/19 Rx gabapentin 100 mg capsule 200 mg PO HS #180 cap 11/25/19 12/20/19 Rx pantoprazole 40 mg tablet,delayed 40 mg PO BID #60 tab 11/26/19 12/20/19 Rx release Patient History Medical History Anemia of renal disease Anxiety and depression Arthritis Asthma AVF (arteriovenous fistula) LEFT ARM BPH (benign prostatic hyperplasia) CAD (coronary artery disease) Chronic diastolic congestive heart failure Colon, diverticulosis 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, with long-term current use of insulin COPD (chronic obstructive pulmonary disease) Diabetes mellitus, type 2 Diabetic peripheral neuropathy Dialysis patient [facility] SATURDAY, SATURDAY, SATURDAY GAVE (gastric antral vascular ectasia) (Acute) GERD (gastroesophageal reflux disease) GI bleed (Inactive) Hearing difficulty Hyperlipidemia LDL goal <70 Hypertension (Acute) Hypnic jerks Hypothyroidism IgG monoclonal gammopathy Memory loss Mitral regurgitation Obstructive sleep apnea uses oxygen 2 l nc at hs Occlusion and stenosis of unspecified carotid artery On home oxygen therapy WEARS O2 AT 2L HS Osteoporosis Pulmonary hypertension Secondary hyperparathyroidism of renal origin Vitamin D deficiency Surgical History H/O cardiac catheterization many years ago - over 10 years no stents follow with trung (NO STENTS) H/O hemorrhoidectomy History of colonoscopy History of esophagogastroduodenoscopy (EGD) MULTIPLE History of tooth extraction Hx of cholecystectomy Family History Unknown Myocardial infarction Mother Diabetes Breast cancer late 70s Hypertension Gallbladder disease Father Diabetes Hypertension Brother Diabetes Kidney disease Hypertension Denies family history of Ovarian cancer Prostate cancer Lung cancer Colorectal cancer Social History Preferred Language: Spanish Communication Ability: Effective Visual Impairment: No Limitations Hearing Ability: Hard of Hearing 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: No Beliefs That Will Affect Care: None marital status: Current Living Situation: Spouse Current Living Situation Comment: lives with in [facility] current occupational status: disabled current occupation: works part-time at [employer] Other Information That Helps Us Care for You: No other: 4 children Feels Safe at Home: Yes Safety Concerns: Feels Safe At This Time Smoking Status: Unknown if ever smoked Hx Alcohol Use: Yes Alcohol type: beer Hx Substance Use: No Childhood Exposure to Second-Hand Smoke: No Diet Comment: regular caffeine: Yes during the past year weight has: remained stable Dental Care, Regularly: Yes Physical Activity Frequency: Does not Exercise Physical Activity Frequency Comment: limited due physical condition Seatbelt Use: sometimes Sunscreen Use: No Physical Exam Physical Exam: Gen.: No acute distress. Alert and oriented to self. He knew he was in the hospital but believed he was in [place]. He did not know the year or month. HEENT: Anicteric sclera. Neck: No JVD. No bruit. Normal carotid upstrokes bilaterally. Cardiac: PMI was nonpalpable. No ventricular heave. Regular. Normal S1-S2. 2/6 early peaking systolic ejection murmur heard best at right upper sternal border. No rubs or gallops. Pulmonary: Clear to auscultation bilaterally without wheezes, rales, or rhonchi. Abdomen: Soft, nontender, nondistended, with normoactive bowel sounds. No bruits noted. Extremities: 2+ radial pulses bilaterally. 2+ posterior tibialis pulses bilaterally. 1+ right pedal edema. Trace left lower extremity pitting edema. No cyanosis. Psychiatric: Affect appears appropriate. Results & Data ([facility]) Vital Signs (Past 12 Hours) Vital Signs Temp Pulse Pulse Resp BP BP Pulse Ox 12/21/19 07:03 36.7 C 55 L 16 146/68 H 92 12/21/19 07:00 55 L 12/21/19 04:02 36.8 C 34 L 16 150/63 H 90 12/20/19 22:50 36.6 C 62 18 177/69 H 90 12/20/19 22:15 36.6 C 62 18 177/69 H 90 Laboratory Results Laboratory Results - last 24 hr 12/20/19 12/20/19 12/20/19 11:13 11:13 11:13 WBC 3.08 L RBC 2.57 L Hgb 7.6 L Hct 24.4 L MCV 94.9 MCH 29.6 MCHC 31.1 L RDW Std Deviation 58.8 H RDW Coeff of Jose C 16.9 H Plt Count 96 L MPV 11.8 H Immature Gran % (Auto) 0.0 Neut % (Auto) 71.9 Lymph % (Auto) 13.6 [place] % (Auto) 9.7 Eos % (Auto) 4.2 Baso % (Auto) 0.6 Neut # (Auto) 2.21 Lymph # (Auto) 0.42 L [place] # (Auto) 0.30 Eos # (Auto) 0.13 Baso # (Auto) 0.02 Immature Gran # (Auto) 0.00 Platelet Estimate Decreased L Polychromasia 1+ Hypochromasia Present Basophilic Stippling 1+ Ovalocytes 1+ PT 12.9 H INR 1.2 H APTT 30.8 PTT Ratio 1.1 Sodium 141 Potassium 4.4 Chloride 104 Carbon Dioxide 28 Anion Gap 9.0 BUN 77 H Creatinine 8.32 H* Est Cr Clr Drug Dosing Not Reportable Est GFR ( Amer) 6.5 Est GFR (Non-Af Amer) 5.6 BUN/Creatinine Ratio 9.3 L Glucose 140 H POC Glucose Estimat Average Glucose Hemoglobin A1c Lactate Calcium 8.6 Phosphorus Magnesium Total Bilirubin 0.5 AST 8 L ALT 16 Alkaline Phosphatase 94 Troponin I 0.319 H* Total Protein 6.0 L Albumin 2.9 L Globulin 3.1 Albumin/Globulin Ratio 0.9 Lipase 156 Blood Type Antibody Screen Crossmatch 12/20/19 12/20/19 12/20/19 11:13 15:01 16:34 WBC RBC Hgb Hct MCV MCH MCHC RDW Std Deviation RDW Coeff of Jose C Plt Count MPV Immature Gran % (Auto) Neut % (Auto) Lymph % (Auto) [place] % (Auto) Eos % (Auto) Baso % (Auto) Neut # (Auto) Lymph # (Auto) [place] # (Auto) Eos # (Auto) Baso # (Auto) Immature Gran # (Auto) Platelet Estimate Polychromasia Hypochromasia Basophilic Stippling Ovalocytes PT INR APTT PTT Ratio Sodium Potassium Chloride Carbon Dioxide Anion Gap BUN Creatinine Est Cr Clr Drug Dosing Est GFR ( Amer) Est GFR (Non-Af Amer) BUN/Creatinine Ratio Glucose POC Glucose 169 H Estimat Average Glucose Hemoglobin A1c Lactate 0.7 Calcium Phosphorus Magnesium Total Bilirubin AST ALT Alkaline Phosphatase Troponin I Total Protein Albumin Globulin Albumin/Globulin Ratio Lipase Blood Type B Positive Antibody Screen NEGATIVE Crossmatch See Detail 12/20/19 12/20/19 12/21/19 17:03 20:37 00:41 WBC RBC Hgb 8.1 L Hct MCV MCH MCHC RDW Std Deviation RDW Coeff of Jose C Plt Count MPV Immature Gran % (Auto) Neut % (Auto) Lymph % (Auto) [place] % (Auto) Eos % (Auto) Baso % (Auto) Neut # (Auto) Lymph # (Auto) [place] # (Auto) Eos # (Auto) Baso # (Auto) Immature Gran # (Auto) Platelet Estimate Polychromasia Hypochromasia Basophilic Stippling Ovalocytes PT INR APTT PTT Ratio Sodium Potassium Chloride Carbon Dioxide Anion Gap BUN Creatinine Est Cr Clr Drug Dosing Est GFR ( Amer) Est GFR (Non-Af Amer) BUN/Creatinine Ratio Glucose POC Glucose 146 H Estimat Average Glucose Hemoglobin A1c Lactate Calcium Phosphorus Magnesium Total Bilirubin AST ALT Alkaline Phosphatase Troponin I 0.924 H* Total Protein Albumin Globulin Albumin/Globulin Ratio Lipase Blood Type Antibody Screen Crossmatch 12/21/19 12/21/19 12/21/19 07:26 07:26 07:26 WBC 2.46 L RBC 2.52 L Hgb 7.5 L Hct 23.4 L MCV 92.9 MCH 29.8 MCHC 32.1 RDW Std Deviation 58.6 H RDW Coeff of Jose C 17.2 H Plt Count 99 L MPV 11.5 H Immature Gran % (Auto) Neut % (Auto) Lymph % (Auto) [place] % (Auto) Eos % (Auto) Baso % (Auto) Neut # (Auto) Lymph # (Auto) [place] # (Auto) Eos # (Auto) Baso # (Auto) Immature Gran # (Auto) Platelet Estimate Polychromasia Hypochromasia Basophilic Stippling Ovalocytes PT INR APTT PTT Ratio Sodium 144 Potassium 4.3 Chloride 105 Carbon Dioxide 28 Anion Gap 11.0 BUN 101 H Creatinine 9.47 H* D Est Cr Clr Drug Dosing 8.0 Est GFR ( Amer) 5.5 Est GFR (Non-Af Amer) 4.8 BUN/Creatinine Ratio 10.7 Glucose 80 POC Glucose Estimat Average Glucose 128 Hemoglobin A1c 6.1 H Lactate Calcium 8.4 L Phosphorus 6.4 H Magnesium 2.1 Total Bilirubin AST ALT Alkaline Phosphatase Troponin I 3.900 H* Total Protein Albumin Globulin Albumin/Globulin Ratio Lipase Blood Type Antibody Screen Crossmatch 12/21/19 08:15 WBC RBC Hgb Hct MCV MCH MCHC RDW Std Deviation RDW Coeff of Jose C Plt Count MPV Immature Gran % (Auto) Neut % (Auto) Lymph % (Auto) [place] % (Auto) Eos % (Auto) Baso % (Auto) Neut # (Auto) Lymph # (Auto) [place] # (Auto) Eos # (Auto) Baso # (Auto) Immature Gran # (Auto) Platelet Estimate Polychromasia Hypochromasia Basophilic Stippling Ovalocytes PT INR APTT PTT Ratio Sodium Potassium Chloride Carbon Dioxide Anion Gap BUN Creatinine Est Cr Clr Drug Dosing Est GFR ( Amer) Est GFR (Non-Af Amer) BUN/Creatinine Ratio Glucose POC Glucose 100 H Estimat Average Glucose Hemoglobin A1c Lactate Calcium Phosphorus Magnesium Total Bilirubin AST ALT Alkaline Phosphatase Troponin I Total Protein Albumin Globulin Albumin/Globulin Ratio Lipase Blood Type Antibody Screen Crossmatch Diagnostic Findings Telemetry personally reviewed: Sinus rhythm. No sustained arrhythmia. Echo report reviewed from 2019 as noted above. ECG personally reviewed: ECG 12/21/2019: Sinus bradycardia first-degree AV block. RBBB. Possible septal infarct. Inferolateral ST/T-wave abnormality. ECG 12/20/2019: Sinus tachycardia 109 bpm. RBBB. Inferior T-wave inversion. Medications Administered Current Inpatient Medications Acetaminophen (Tylenol) 650 mg PO Q4H PRN PRN Reason: pain/fever Stop: 01/19/20 14:40 Amlodipine Besylate (Norvasc) 10 mg PO [facility] Stop: 01/19/20 20:59 Last Admin: 12/20/19 21:37 Dose: 10 mg Documented by: Bumetanide (Bumex) 2 mg PO BID17 [facility] Stop: 01/19/20 16:59 Last Admin: 12/21/19 09:00 Dose: Not Given Documented by: Calcium Acetate (Phoslo) 2,001 mg PO TIDM [facility] Stop: 01/19/20 16:59 Last Admin: 12/21/19 09:00 Dose: Not Given Documented by: Cyanocobalamin (Vitamin B-12) 1,000 mcg PO HS [facility] Stop: 01/19/20 20:59 Last Admin: 12/20/19 21:38 Dose: 1,000 mcg Documented by: Dextrose (Dextrose 50%) 25 - 50 ml IV UD PRN; Protocol PRN Reason: Hypoglycemia Protocol Stop: 01/19/20 14:40 Glucagon (Glucagen) 1 mg SQ UD PRN; Protocol PRN Reason: Hypoglycemia Protocol Stop: 01/19/20 14:40 Glucose (Dex4 Glucose) 4 - 8 tabs PO UD PRN; Protocol PRN Reason: Hypoglycemia Protocol Stop: 01/19/20 14:40 Glucose (Glucose 40%) 15 - 30 gm PO UD PRN; Protocol PRN Reason: Hypoglycemia Protocol Stop: 01/19/20 14:40 Hydralazine HCl (Apresoline) 50 mg PO TIDM [facility] Stop: 01/19/20 16:59 Last Admin: 12/21/19 09:00 Dose: Not Given Documented by: Sodium Chloride (Nss 1000ml) 1,000 mls @ 0 mls/hr IV .Q0M PRN PRN Reason: For Hemodialysis Use ONLY Stop: 12/21/19 12:59 Sodium Chloride (Nss) 250 mls @ 15 mls/hr IV .[id number] PRN PRN Reason: For Transfusion Stop: 12/21/19 18:18 Insulin Aspart (Novolog Flexpen) 0 units SC ACHS [facility] Stop: 01/19/20 16:29 Last Admin: 12/21/19 08:59 Dose: Not Given Documented by: Insulin Detemir (Levemir Flextouch) 10 units SC HS [facility] Stop: 01/19/20 20:59 Last Admin: 12/20/19 21:36 Dose: 10 units Documented by: Labetalol HCl (Normodyne) 200 mg PO BID [facility] Stop: 01/19/20 20:59 Last Admin: 12/21/19 09:00 Dose: Not Given Documented by: Lactulose (Chronulac) 20 gm PO DAILY [facility] Stop: 01/20/20 08:59 Levothyroxine Sodium (Synthroid) 150 mcg PO DAILYBB [facility] Stop: 01/20/20 06:29 Last Admin: 12/21/19 06:31 Dose: 150 mcg Documented by: Levothyroxine Sodium (Synthroid) 200 mcg PO DAILYBB [facility] Stop: 01/20/20 06:29 Last Admin: 12/21/19 06:31 Dose: 200 mcg Documented by: Miscellaneous (Carbohydrates For Hypoglycemia) 15 - 30 gm PO UD PRN PRN Reason: Hypoglycemia Protocol Stop: 01/19/20 14:40 Ondansetron HCl (Zofran) 4 mg IV Q4H PRN PRN Reason: Nausea Stop: 01/19/20 14:40 Pantoprazole Sodium (Protonix) 40 mg PO BID [facility] Stop: 01/19/20 20:59 Last Admin: 12/21/19 09:01 Dose: 40 mg Documented by: Rosuvastatin Calcium (Crestor) 20 mg PO QPM [facility] Stop: 01/19/20 20:59 Last Admin: 12/20/19 21:36 Dose: 20 mg Documented by: Vitamin B Complex/Folic Acid (Nephrocaps) 1 cap PO QDL [facility] Stop: 01/20/20 11:29 PG Care Time/CCT Total # of Minutes Spent Total Time Spent with Patient: Total time spent is greater than 50% in coordination of care (as documented) at patient's floor/unit and/or counseling patient: Coding Level of Care Code 69401 Initial Inpt Care Lvl 3 Diagnoses Non-ST elevation (NSTEMI) myocardial infarction I21.4 CAD (coronary artery disease) I25.10 Coronary Disease-Associated Artery/Lesion type: [place]bler artery [place] vs. transplanted heart: ambler heart Associated angina: without angina Hypertension I10 Hypertension type: unspecified Acute blood loss anemia D62 (1) CAD (coronary artery disease) Coronary Disease-Associated Artery/Lesion type: ambler artery [place] vs. transplanted heart: ambler heart Associated angina: without angina Qualified Code(s): I25.10 - Atherosclerotic heart disease of ambler coronary artery without angina pectoris (2) Hypertension Hypertension type: unspecified Qualified Code(s): I10 - Essential (primary) hypertension
[2019-12-21] MEDS: NEPHROCAPS PO SCH (11:30)
--- NOTE | 2019-12-21 11:37 | XCELERA ---
[id number]
--- NOTE | 2019-12-21 12:04 | Hospitalist Progress Note ---
Date of Service December 21, 2019 Assessment & Plan (1) Non-ST elevation (NSTEMI) myocardial infarction: Chest pain began around 7:15am morning of admission. EKG shows tachycardia and RBBB, but is otherwise stable from 11/2019. Troponin was 0.319 on admission. - Echo ordered -> Pending - Trend troponins & EKGs -> Up to 3.9 on 12/20, though remains chest pain free. - Discussed with cardiology today. He is not a candidate for intervention as he has clear contraindication to anti-platelet and heparin therapy. Start nitro if further chest pain. Transfuse past hgb of 8. (2) GAVE (gastric antral vascular ectasia): Has had many EGDs with argon laser. Last one in 09/2019. - Given hemoglobin drop and chest pain, got 1 unit PRBCs on 12/19, and another today with HD. - GI consulted -> Plan for EGD today. - Continue PPI BID (3) ESRD on dialysis: Makes a small amount of urine at baseline. Last HD was on 12/18, but had missed 4 sessions prior to that. - Nephrology consulted - Continue HTN regimen and nephrocaps - Plan for HD today. (4) Diabetes mellitus, type 2: A1c was 5.8% in 08/2019. - Hold oral meds - DM diet - Lower long-acting to 10 units HS instead of home 15 units - Sliding scale insulin - Repeat A1c is 6.1%; unclear if this will really give us useful information given his vast number of transfusions and ESRD. (5) Hypertension: Resistant due to ESRD. In the ED, his BP is 160/75. - Continue home amlodipine, hydralazine, labetalol - Holding home lisinopril for now in case we need to add a nitro medication for chest pain. (6) Hypothyroidism: TSH was 42 in 10/2019 and has been consistently climbing. Unclear when his dose was last adjusted and if compliance is an issue. (Prior notes indicate it is due to not taking Synthroid.) - Continue Synthroid 350 mcg daily (7) Cirrhosis: Unknown cause. Today he demonstrates some mild slowness in responses, but easily arousable. - Continue lactulose (8) Obstructive sleep apnea: On 2L NC at night. - Continue O2 PRN (9) BPH (benign prostatic hyperplasia): Makes minimal urine at baseline. - PVRs as needed - Continue tamsulosin (10) Anemia of renal disease: Baseline anemia from ESRD, iron deficiency, and recurrent GI bleeding. Hgb usually 8-9. - Hgb was 7.6 on admission as above - Treat multimodally as per usual (11) DVT prophylaxis: SCDs - Will avoid heparin as able given the concern for GI bleed and his known GAVE Admission and Anticipated Discharge Date Admission Date: December 20, 2019 Subjective No chest pain this morning. Feels mostly at his baseline. No further hematochezia per patient. Reports no fevers/chills, chest pain, shortness of breath, abdominal pain, nausea, or vomiting. Physical Exam Constitutional: WD/WN, vitals as above Eyes: EOM intact bilaterally; no conjunctival abnormality ENMT: external ear and nose normal, oropharynx normal Neck: trachea midline, no thyromegaly normal visual inspection Respiratory: normal respiratory effort, lungs clear to auscultation no respiratory distress Cardiovascular: Rate/Rhythm: regular rate and + tachycardic Heart Sounds: normal S1 and normal S2 Vessels: no JVD Extremities: + edema (1+ bilaterally) Gastrointestinal (Abdomen): Inspection/Auscultation: abdomen normal to inspection; abdomen not distended Musculoskeletal: no cyanosis or clubbing, extremities motor strength 5/5 Skin: no rashes, warm and dry Neurologic: moves all extremities and awake Psychiatric: Orientation: alert, oriented to person and cooperative Results & Data Results & Data ([facility]) Vital Signs (Past 12 Hours) Vital Signs Temp Pulse Pulse Resp BP BP Pulse Ox 12/21/19 11:40 54 L 158/64 H 12/21/19 11:20 37.0 C 54 L 18 143/60 H 12/21/19 11:00 54 L 143/60 H 12/21/19 10:45 37.0 C 56 L 18 128/53 L 12/21/19 10:40 56 L 128/53 L 12/21/19 10:29 37.0 C 53 L 53 L 134/59 L 12/21/19 07:03 36.7 C 55 L 16 146/68 H 92 12/21/19 07:00 55 L 12/21/19 04:02 36.8 C 34 L 16 150/63 H 90 PG Care Time/CCT Total # of Minutes Spent Total Time Spent with Patient: Total time spent is greater than 50% in coordination of care (as documented) at patient's floor/unit and/or counseling patient: Coding Level of Care Code 77371 Subseq Hosp Care Lvl 3 Diagnoses Non-ST elevation (NSTEMI) myocardial infarction I21.4 GAVE (gastric antral vascular ectasia) K31.819 ESRD on dialysis N18.6; Z99.2 Diabetes mellitus, type 2 E11.22; N18.6; Z79.4; Z99.2 Diabetes mellitus residential insulin use: with residential use Diabetes mellitus complication status: with kidney complications Diabetes mellitus complication detail: with chronic kidney disease Chronic kidney disease stage: on chronic dialysis Hypertension I10 Hypertension type: unspecified Hypothyroidism E03.9 Hypothyroidism type: unspecified Cirrhosis K74.60 Ascites presence: unspecified Hepatic cirrhosis type: unspecified hepatic cirrhosis Obstructive sleep apnea G47.33 BPH (benign prostatic hyperplasia) N40.0 Lower urinary tract symptom presence: unspecified whether lower urinary tract symptoms present Anemia of renal disease N18.9; D63.1 DVT prophylaxis Z29.9 (1) Diabetes mellitus, type 2 Diabetes mellitus residential insulin use: with terminal make up operator use Diabetes mellitus complication status: with kidney complications Diabetes mellitus complication detail: with chronic kidney disease Chronic kidney disease stage: on chronic dialysis Qualified Code(s): E11.22 - Type 2 diabetes mellitus with diabetic chronic kidney disease; N18.6 - End stage renal disease; Z79.4 - long term care phlebotomist (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 (2) Hypertension Hypertension type: unspecified Qualified Code(s): I10 - Essential (primary) hypertension (3) Hypothyroidism Hypothyroidism type: unspecified Qualified Code(s): E03.9 - Hypothyroidism, unspecified (4) Cirrhosis Ascites presence: unspecified Hepatic cirrhosis type: unspecified hepatic cirrhosis Qualified Code(s): K74.60 - Unspecified cirrhosis of liver (5) BPH (benign prostatic hyperplasia) Lower urinary tract symptom presence: unspecified whether lower urinary tract symptoms present Qualified Code(s): N40.0 - Benign prostatic hyperplasia without lower urinary tract symptoms
[2019-12-21] MEDS: LACTULOSE SYRUP 20 GM/30 ML UDC PO SCH ×2 (14:29→14:48)
--- NOTE | 2019-12-21 15:13 | Anesthesiology Consultation ---
Date of Service December 21, 2019 Assessment & Plan (1) Encounter for pre-operative examination: Chart Review Chart Review: Acceptable Risk for Surgery and Patient NOT seen in Pre Admission Testing Consults Requested none ASA ASA4 Proposed Anesthesia Anesthesia Type: MAC Risk / Benefits Reviewed With: PT / POA / Parent / Guardian, Accepts Plan and Informed Consent Obtained History Surgery Operation Date: 12/21/19 16:00 Proposed Procedures p Esophagogastroduodenoscopy Dr Christopher White Height/Weight Height: 6 ft Weight: 100.1 kg Allergies Allergy/AdvReac Type Severity Reaction Status Date / Time sucralfate [From Carafate] Allergy Mild upset Verified 11/11/19 10:26 dialysis tramadol AdvReac Severe disorented Verified 11/11/19 10:26 ,falling down lorazepam [From Ativan] AdvReac Intermediate unresponsive, Verified 11/11/19 10:26 confusion metformin AdvReac Intermediate CONFUSION Verified 11/11/19 10:26 Medications Home Medications Medication Instructions Recorded Confirmed Last Taken docusate sodium 100 mg capsule 200 mg PO QAM #30 cap 01/19/19 12/20/19 11/03/19 07:00 insulin detemir U-100 100 unit/mL 15 units SUBCUT HS ml 03/25/19 12/20/19 11/02/19 21:00 subcutaneous solution Renal Caps 1 cap PO QDL 05/23/19 12/20/19 10/20/19 calcium acetate(phosphat bind) 667 2,001 mg PO TIDM tab 06/02/19 12/20/19 11/03/19 07:00 mg tablet insulin aspart U-100 [Novolog 0 sliding scale dose SUBCUT QID 06/06/19 12/20/19 11/02/19 U-100 Insulin aspart] amlodipine 10 mg PO HS 06/13/19 12/20/19 11/02/19 doxazosin [Cardura] 1 mg PO QDL 06/23/19 12/20/19 11/02/19 folic acid 1 mg tablet 1 mg PO QDL 07/10/19 12/20/19 11/02/19 lisinopril 40 mg PO QDL 07/23/19 12/20/19 11/02/19 cyanocobalamin (vitamin B-12) 1,000 mcg PO HS 08/14/19 12/20/19 10/20/19 [Vitamin B-12] ferrous sulfate 325 mg (65 mg 325 mg PO BID #60 tab 10/01/19 12/20/19 11/03/19 07:00 iron) tablet,delayed release rosuvastatin 20 mg tablet 20 mg PO QPM #90 tab 10/01/19 12/20/19 11/02/19 labetalol 200 mg tablet 200 mg PO BID #180 tab 10/08/19 12/20/19 11/02/19 06:00 levothyroxine 150 mcg tablet 150 mcg PO DAILY #90 tab 10/13/19 12/20/19 11/03/19 07:00 levothyroxine 200 mcg tablet 200 mcg PO QAM #90 tab 10/13/19 12/20/19 11/03/19 07:00 bumetanide 1 mg tablet 2 mg PO BID #120 tab 10/20/19 12/20/19 11/03/19 07:00 hydralazine 50 mg PO TIDM 10/20/19 12/20/19 11/03/19 07:00 lactulose 20 gm PO DAILY #1500 ml 11/09/19 12/20/19 Unknown tamsulosin 0.4 mg capsule 0.4 mg PO HS #90 cap 11/19/19 12/20/19 Unknown gabapentin 100 mg capsule 200 mg PO HS #180 cap 11/25/19 12/20/19 Unknown pantoprazole 40 mg tablet,delayed 40 mg PO BID #60 tab 11/26/19 12/20/19 Unknown release Active Medications Generic Name Dose Route Start Last Admin Trade Name Sharon PRN Reason Stop Dose Admin Amlodipine Besylate 10 mg 12/20/19 21:00 12/20/19 21:37 Norvasc PO 01/19/20 20:59 10 mg HS SHANTA Administration Bumetanide 2 mg 12/20/19 17:00 12/21/19 09:00 Bumex PO 01/19/20 16:59 Not Given BID17 SHANTA Calcium Acetate 2,001 mg 12/20/19 17:00 12/21/19 14:27 Phoslo PO 01/19/20 16:59 Not Given TIDM SHANTA Cyanocobalamin 1,000 mcg 12/20/19 21:00 12/20/19 21:38 Vitamin B-12 PO 01/19/20 20:59 1,000 mcg HS SHANTA Administration Hydralazine HCl 50 mg 12/20/19 17:00 12/21/19 14:29 Apresoline PO 01/19/20 16:59 50 mg TIDM SHANTA Administration Insulin Aspart 0 units 12/20/19 16:30 12/21/19 12:51 Novolog Flexpen SC 01/19/20 16:29 Not Given ACHS SHANTA Insulin Detemir 10 units 12/20/19 21:00 12/20/19 21:36 Levemir Flextouch SC 01/19/20 20:59 10 units HS SHANTA Administration Labetalol HCl 200 mg 12/20/19 21:00 12/21/19 09:00 Normodyne PO 01/19/20 20:59 Not Given BID SHANTA Lactulose 20 gm 12/21/19 09:00 12/21/19 14:48 Chronulac PO 01/20/20 08:59 Not Given DAILY SHANTA Levothyroxine Sodium 150 mcg 12/21/19 06:30 12/21/19 06:31 Synthroid PO 01/20/20 06:29 150 mcg DAILYBB SHANTA Administration Levothyroxine Sodium 200 mcg 12/21/19 06:30 12/21/19 06:31 Synthroid PO 01/20/20 06:29 200 mcg DAILYBB SHANTA Administration Pantoprazole Sodium 40 mg 12/20/19 21:00 12/21/19 09:01 Protonix PO 01/19/20 20:59 40 mg BID SHANTA Administration Rosuvastatin Calcium 20 mg 12/20/19 21:00 12/20/19 21:36 Crestor PO 01/19/20 20:59 20 mg QPM SHANTA Administration Vitamin B Complex/Folic Acid 1 cap 12/21/19 11:30 12/21/19 11:30 Nephrocaps PO 01/20/20 11:29 Not Given QDL SHANTA NPO Date Last Intake of Fluids: 12/19/19 Time Last Intake of Fluids: 12:00 Date Last Intake of Solids: 12/19/19 Time Last Intake of Solids: 12:00 Past Medical History Medical History Anemia of renal disease Anxiety and depression Arthritis Asthma AVF (arteriovenous fistula) LEFT ARM BPH (benign prostatic hyperplasia) CAD (coronary artery disease) Chronic diastolic congestive heart failure Colon, diverticulosis 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, with long-term current use of insulin COPD (chronic obstructive pulmonary disease) Diabetes mellitus, type 2 Diabetic peripheral neuropathy Dialysis patient [facility] SATURDAY, SATURDAY, SATURDAY GAVE (gastric antral vascular ectasia) (Acute) GERD (gastroesophageal reflux disease) GI bleed (Inactive) Hearing difficulty Hyperlipidemia LDL goal <70 Hypertension (Acute) Hypnic jerks Hypothyroidism IgG monoclonal gammopathy Memory loss Mitral regurgitation Obstructive sleep apnea uses oxygen 2 l nc at hs Occlusion and stenosis of unspecified carotid artery On home oxygen therapy WEARS O2 AT 2L HS Osteoporosis Pulmonary hypertension Secondary hyperparathyroidism of renal origin Vitamin D deficiency Exercise / Class Metabolic Activity II 4-5 Yardwork/Stairs/Walk up hill Past Family History Family History Unknown Myocardial infarction Mother Diabetes Breast cancer late 70s Hypertension Gallbladder disease Father Diabetes Hypertension Brother Diabetes Kidney disease Hypertension Denies family history of Ovarian cancer Prostate cancer Lung cancer Colorectal cancer Past Surgical History Surgical History H/O cardiac catheterization many years ago - over 10 years no stents follow with trung (NO STENTS) H/O hemorrhoidectomy History of colonoscopy History of esophagogastroduodenoscopy (EGD) MULTIPLE History of tooth extraction Hx of cholecystectomy Past Anesthesia History No Hx of Anesthesia Complications and No Family Hx of Anesthesia Complications History of PONV No Hx of PONV and No Hx of Motion Sickness Social History Smoking Status: Unknown if ever smoked tobacco type: cigarettes Hx Alcohol Use: Yes Alcohol type: beer alcohol intake frequency: a few times a month Hx Substance Use: No substance use type: does not use Physical Exam Vital Signs Last Vital Signs Temp 36.6 C 12/21/19 15:04 Pulse 57 L 12/21/19 15:04 Resp 14 12/21/19 15:04 BP 175/60 H 12/21/19 15:04 Pulse Ox 92 12/21/19 15:04 ENMT Mouth: + poor dentition Thyromental Distance: > or= 3.5 Finger Breadths Mallampati Class: II Neck normal visual inspection Respiratory normal respiratory effort Auscultation: lungs clear to auscultation bilaterally Cardiovascular Rate/Rhythm: regular rate and regular rhythm Chest (Breasts) Chest: + vascular access device or port (LUE AV Fistula) Psychiatric Orientation: alert Testing Laboratory Results 12/21/19 07:26 12/21/19 07:26 PT 12.9 Seconds (9.0-12.0) H 12/20/19 11:13 INR 1.2 (0.9-1.1) H 12/20/19 11:13 APTT 30.8 Seconds (21.0-31.0) 12/20/19 11:13 Hemoglobin A1c 6.1 % (4.5-5.6) H 12/21/19 07:26 Blood Type B Positive 12/20/19 15:01 Antibody Screen NEGATIVE 12/20/19 15:01 12/20/19 11:13 Aerobic Blood Culture - Preliminary Blood No growth in Aerobic bottle after 24 hours. Anaerobic Blood Culture - Preliminary No growth in Anaerobic bottle after 24 hours. 12/20/19 11:13 Aerobic Blood Culture - Preliminary Blood No growth in Aerobic bottle after 24 hours. Anaerobic Blood Culture - Preliminary No growth in Anaerobic bottle after 24 hours. 12/21/19 12/21/19 12/21/19 14:15 12:43 08:15 POC Glucose 80 86 100 H
--- NOTE | 2019-12-21 15:14 | Electrocardiogram Report ---
Test Reason : Blood Pressure : / mmHG Vent. Rate : 055 BPM Atrial Rate : 055 BPM P-R Int : 210 ms QRS Dur : 162 ms QT Int : 552 ms P-R-T Axes : 083 109 -78 degrees QTc Int : 528 ms Sinus bradycardia with 1st degree A-V block Right bundle branch block Septal infarct , age undetermined T wave abnormality, consider inferolateral ischemia Abnormal ECG When compared with ECG of 20-DEC-2019 10:06, Significant changes have occurred Confirmed by Shawn Altamirano ([id number]) on 12/21/2019 3:13:57 PM Referred By: REFERRED SELF Confirmed By:Shawn Altamirano
[2019-12-21] MEDS ORDERED: LIDOCAINE HCL 2% 2 ML VIAL/AMP(20MG/ML) INFIL ONE ×2 (15:22→15:27)
[2019-12-21] MEDS ORDERED: PROPOFOL IV EMULSION 10 MG/ML 20 ML VIAL IV ONE ×2 (15:22→15:27)
--- NOTE | 2019-12-21 15:31 | History & Physical Report ---
Date of Service December 21, 2019 History of Present Illness Chief Complaint: anemia Primary Care Provider: Mahsa Wang, For EGD Allergies Allergy/AdvReac Type Severity Reaction Status Date / Time sucralfate [From Carafate] Allergy Mild upset Verified 11/11/19 10:26 dialysis tramadol AdvReac Severe disorented Verified 11/11/19 10:26 ,falling down lorazepam [From Ativan] AdvReac Intermediate unresponsive, Verified 11/11/19 10:26 confusion metformin AdvReac Intermediate CONFUSION Verified 11/11/19 10:26 Home Medications Home Medications Medication Instructions Recorded Confirmed Type docusate sodium 100 mg capsule 200 mg PO QAM #30 cap 01/19/19 12/20/19 Rx insulin detemir U-100 100 unit/mL 15 units SUBCUT HS ml 03/25/19 12/20/19 History subcutaneous solution Renal Caps 1 cap PO QDL 05/23/19 12/20/19 History calcium acetate(phosphat bind) 667 2,001 mg PO TIDM tab 06/02/19 12/20/19 History mg tablet insulin aspart U-100 [Novolog 0 sliding scale dose SUBCUT QID 06/06/19 12/20/19 History U-100 Insulin aspart] amlodipine 10 mg PO HS 06/13/19 12/20/19 History doxazosin [Cardura] 1 mg PO QDL 06/23/19 12/20/19 History folic acid 1 mg tablet 1 mg PO QDL 07/10/19 12/20/19 History lisinopril 40 mg PO QDL 07/23/19 12/20/19 History cyanocobalamin (vitamin B-12) 1,000 mcg PO HS 08/14/19 12/20/19 History [Vitamin B-12] ferrous sulfate 325 mg (65 mg 325 mg PO BID #60 tab 10/01/19 12/20/19 Rx iron) tablet,delayed release rosuvastatin 20 mg tablet 20 mg PO QPM #90 tab 10/01/19 12/20/19 Rx labetalol 200 mg tablet 200 mg PO BID #180 tab 10/08/19 12/20/19 Rx levothyroxine 150 mcg tablet 150 mcg PO DAILY #90 tab 10/13/19 12/20/19 Rx levothyroxine 200 mcg tablet 200 mcg PO QAM #90 tab 10/13/19 12/20/19 Rx bumetanide 1 mg tablet 2 mg PO BID #120 tab 10/20/19 12/20/19 Rx hydralazine 50 mg PO TIDM 10/20/19 12/20/19 History lactulose 20 gm PO DAILY #1500 ml 11/09/19 12/20/19 Rx tamsulosin 0.4 mg capsule 0.4 mg PO HS #90 cap 11/19/19 12/20/19 Rx gabapentin 100 mg capsule 200 mg PO HS #180 cap 11/25/19 12/20/19 Rx pantoprazole 40 mg tablet,delayed 40 mg PO BID #60 tab 11/26/19 12/20/19 Rx release Past Med/Surg History Medical History Anemia of renal disease Anxiety and depression Arthritis Asthma AVF (arteriovenous fistula) LEFT ARM BPH (benign prostatic hyperplasia) CAD (coronary artery disease) Chronic diastolic congestive heart failure Colon, diverticulosis 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, with long-term current use of insulin COPD (chronic obstructive pulmonary disease) Diabetes mellitus, type 2 Diabetic peripheral neuropathy Dialysis patient [facility] SATURDAY, SATURDAY, SATURDAY GAVE (gastric antral vascular ectasia) (Acute) GERD (gastroesophageal reflux disease) GI bleed (Inactive) Hearing difficulty Hyperlipidemia LDL goal <70 Hypertension (Acute) Hypnic jerks Hypothyroidism IgG monoclonal gammopathy Memory loss Mitral regurgitation Obstructive sleep apnea uses oxygen 2 l nc at hs Occlusion and stenosis of unspecified carotid artery On home oxygen therapy WEARS O2 AT 2L HS Osteoporosis Pulmonary hypertension Secondary hyperparathyroidism of renal origin Vitamin D deficiency Surgical History H/O cardiac catheterization many years ago - over 10 years no stents follow with trung (NO STENTS) H/O hemorrhoidectomy History of colonoscopy History of esophagogastroduodenoscopy (EGD) MULTIPLE History of tooth extraction Hx of cholecystectomy Family History Unknown Myocardial infarction Mother Diabetes Breast cancer late 70s Hypertension Gallbladder disease Father Diabetes Hypertension Brother Diabetes Kidney disease Hypertension Denies family history of Ovarian cancer Prostate cancer Lung cancer Colorectal cancer Social History Smoking Status: Unknown if ever smoked packs per day: 0.5; Number of Years Since Quit: 25; Second Hand Exposure: No; Hx Alcohol Use: Yes Alcohol type: beer Hx Substance Use: No Preferred Language: Divehi Communication Ability: Effective Visual Impairment: No Limitations Hearing Ability: Hard of Hearing Buckle Wire Inserter Required: No Beliefs That Will Affect Care: None marital status: Current Living Situation: Spouse Current Living Situation Comment: lives with in [place] current occupational status: disabled current occupation: works part-time at [employer] How many Children do You have: 4 Other Information That Helps Us Care for You: No other: 4 children Feels Safe at Home: Yes Safety Concerns: Feels Safe At This Time Childhood Exposure to Second-Hand Smoke: No Diet Comment: regular caffeine: Yes during the past year weight has: remained stable Dental Care, Regularly: Yes Physical Activity Frequency: Does not Exercise Physical Activity Frequency Comment: limited due physical condition Seatbelt Use: sometimes Sunscreen Use: No Physical Exam Constitutional: + frail appearing and + disheveled Respiratory: normal respiratory effort Cardiovascular: Rate/Rhythm: regular rate and regular rhythm Gastrointestinal (Abdomen): Percussion/Palpation: abdomen soft Results & Data Vital Signs (Past 12 Hours) Vital Signs Temp Pulse Pulse Resp BP BP Pulse Ox 12/21/19 15:04 36.6 C 57 L 14 175/60 H 92 12/21/19 14:18 36.6 C 57 L 18 177/77 H 91 12/21/19 13:30 36.6 C 56 L 56 L 150/65 H 150/65 H 12/21/19 13:20 56 L 142/52 H 12/21/19 13:00 56 L 139/53 L 12/21/19 12:40 56 L 141/56 H 12/21/19 12:23 37 C 56 L 18 128/53 L 12/21/19 12:20 57 L 135/53 L 12/21/19 12:15 36.6 C 57 L 18 142/55 H 12/21/19 12:00 57 L 142/55 H 12/21/19 11:40 54 L 158/64 H 12/21/19 11:20 37.0 C 54 L 18 143/60 H 12/21/19 11:00 54 L 143/60 H 12/21/19 10:45 37.0 C 56 L 18 128/53 L 12/21/19 10:40 56 L 128/53 L 12/21/19 10:29 37.0 C 53 L 53 L 134/59 L 12/21/19 07:03 36.7 C 55 L 16 146/68 H 92 12/21/19 07:00 55 L 12/21/19 04:02 36.8 C 34 L 16 150/63 H 90 Code Status & VTE Plan VTE Prophylaxis Plan VTE Prophylaxis will be ordered: Yes
--- NOTE | 2019-12-21 16:15 | GI REPORT ---
Patient Name: Darnell Mcintyre Procedure Date: 12/21/2019 3:51 PM Date of : 1940 Admit Type: Inpatient Age: 79 Gender: Male Attending MD: Mando White MD Procedure: Upper GI endoscopy Providers: Mando White MD Referring MD: Mando White MD Indications: Suspected upper gastrointestinal bleeding in patient with chronic blood loss Medicines: Propofol total dose 170 mg IV, Lidocaine 80 mg IV Complications: No immediate complications. Estimated Blood Loss: Estimated blood loss: none. Procedure: Pre-Anesthesia Assessment: - Prior to the procedure, a History and Physical was performed, and patient medications, allergies and sensitivities were reviewed. The patient's tolerance of previous anesthesia was reviewed. - Prior to the procedure, a History and Physical was performed, and patient medications, allergies and sensitivities were reviewed. The patient's tolerance of previous anesthesia was reviewed. - The risks and benefits of the procedure and the sedation options and risks were discussed with the patient. All questions were answered and informed consent was obtained. After obtaining informed consent, the endoscope was passed under direct vision. Throughout the procedure, the patient's blood pressure, pulse, and oxygen saturations were monitored continuously. The Endoscope was introduced through the mouth, and advanced to the second part of duodenum. The upper GI endoscopy was accomplished without difficulty. The patient tolerated the procedure well. Findings: The Z-line was irregular and was found 46 cm from the incisors. 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 Multiple 5 mm pedunculated and sessile polyps with no bleeding and no stigmata of recent bleeding were found in the gastric body. Multiple angioectasias with no bleeding were found in the gastric antrum. Coagulation for bleeding prevention using argon plasma at 0.3 liters/minute and 20 whitley was successful. Estimated blood loss: none. A large non-bleeding diverticulum was found in the second portion of the duodenum. Impression: - Z-line irregular, 46 cm from the incisors. 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 - Multiple gastric polyps. - Multiple non-bleeding angioectasias in the stomach. Treated with argon plasma coagulation (APC). - Non-bleeding duodenal diverticulum. - No specimens collected. Recommendation: - Return patient to hospital cheema for ongoing care. Mando White M.D. Mando White MD 12/21/2019 4:15:45 PM This report has been signed electronically. Note Initiated On: 12/21/2019 3:51 PM Number of Addenda: 0 I attest to the content of the Intraoperative Record and orders documented therein, exceptions below {[id number]}
--- NOTE | 2019-12-21 16:23 | Progress Notes ---
DATE: 12/21/2019 The patient underwent transfusion of 3 units of red cells during his hospitalization for hemoglobin of 7.6. He presented to the endoscopy center today for EGD. 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 Today was no different. Gastric antral vascular ectasia was treated with APC successfully. There was no bleeding. 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 The patient tolerated the procedure well and hopefully will be able to be discharged soon.
--- NOTE | 2019-12-21 16:38 | Anesthesiology Progress Note ---
Date of Service December 21, 2019 Anesthesia Post Procedure Vital Signs Vital Signs: Temp Pulse Pulse Resp BP BP Pulse Ox 12/21/19 16:22 60 20 142/49 H 100 12/21/19 16:07 56 L 18 138/57 L 98 12/21/19 15:04 36.6 C 57 L 14 175/60 H 92 12/21/19 14:18 36.6 C 57 L 18 177/77 H 91 12/21/19 13:30 36.6 C 56 L 56 L 150/65 H 150/65 H 12/21/19 13:20 56 L 142/52 H 12/21/19 13:00 56 L 139/53 L 12/21/19 12:40 56 L 141/56 H 12/21/19 12:23 37 C 56 L 18 128/53 L 12/21/19 12:20 57 L 135/53 L 12/21/19 12:15 36.6 C 57 L 18 142/55 H 12/21/19 12:00 57 L 142/55 H 12/21/19 11:40 54 L 158/64 H 12/21/19 11:20 37.0 C 54 L 18 143/60 H 12/21/19 11:00 54 L 143/60 H 12/21/19 10:45 37.0 C 56 L 18 128/53 L 12/21/19 10:40 56 L 128/53 L 12/21/19 10:29 37.0 C 53 L 53 L 134/59 L 12/21/19 07:03 36.7 C 55 L 16 146/68 H 92 12/21/19 07:00 55 L 12/21/19 04:02 36.8 C 34 L 16 150/63 H 90 12/20/19 22:50 36.6 C 62 18 177/69 H 90 12/20/19 22:15 36.6 C 62 18 177/69 H 90 12/20/19 21:15 36.6 C 62 18 165/66 H 90 12/20/19 20:45 36.6 C 62 18 158/63 H 90 12/20/19 20:43 36.7 C 61 18 160/64 H 91 12/20/19 20:30 36.8 C 61 18 154/66 H 90 12/20/19 20:09 36.8 C 62 18 149/64 H 87 L 07/19/20 19:17 36.9 C 96 H 20 136/56 L 95 Pain Intensity Chest: Pain Intensity: 0 Transfer of Care Handoff Completed per policy Notes Mental Status: alert / awake / arousable and participated in evaluation Nausea / Vomiting: adequately controlled Pain: adequately controlled Airway Patency, RR, SpO2: stable & adequate BP & HR: stable & adequate Hydration State: stable & adequate Anesthetic Complications: no major complications apparent and Pt Satisfied with anesthetic care
[2019-12-21] MEDS: CYANOCOBALAMIN 500 MCG TABLET (VITAMIN B-12) PO SCH (20:11)
[2019-12-21] MEDS: INSULIN DETEMIR FLEXPEN/FLEX TOUCH 100 UNITS/ML 3ML SC SCH (20:11)
[2019-12-21] MEDS: ROSUVASTATIN CALCIUM 20 MG TAB PO SCH (20:12)
[2019-12-21] MEDS: AMLODIPINE BESYLATE 5 MG TAB PO SCH (20:12)
[2019-12-21] MEDS ORDERED: TAMSULOSIN HCL 0.4 MG CAP PO SCH (21:00)
[2019-12-22] MEDS: LEVOTHYROXINE SODIUM 200 MCG TABLET PO SCH (05:43)
[2019-12-22] MEDS: LEVOTHYROXINE SODIUM 150 MCG TABLET PO SCH (05:43)
[2019-12-22 08:24] LABS: Hematocrit (blood only) 28.1 % (42-52); Hemoglobin 8.8 g/dL (14.0-18.0); Mean Corpuscular Hemoglobin 29.2 pg (25-34); Mean Corpuscular Hgb Conc 31.3 g/dL (32-36); Mean Corpuscular Volume 93.4 fL (80-100); Mean Platelet Volume 11.9 fL (7.4-10.4); Platelet Count 113 K/uL (130-400); RDW Coefficient of Variation 16.8 % (11.5-14.5); RDW Standard Deviation 57.5 fL (36.4-46.3); Red Blood Count 3.01 M/uL (4.7-6.1); White Blood Count 3.27 K/uL (4.8-10.8)
[2019-12-22] MEDS: INSULIN ASPART 100 UNITS/ML 3 ML PEN SC SCH ×3 (08:24→17:23)
[2019-12-22] MEDS: CALCIUM ACETATE 667 MG CAP/TAB PO SCH ×3 (08:26→16:58)
[2019-12-22] MEDS: PANTOprazole 40 MG TAB PO SCH (08:26)
[2019-12-22] MEDS ORDERED: IRON SUCROSE 200 MG in 0.9 % SODIUM CHLORIDE 100 ML IV SCH (09:00)
[2019-12-22] MEDS ORDERED: EPOETIN ALFA 40,000 UNITS/ML VIAL IV ONE (09:00)
[2019-12-22] MEDS ORDERED: ISOSORBIDE MONO EXTENDED REL 30 MG TABCR PO SCH (09:00)
[2019-12-22 09:16] LABS: BUN Creatinine Ratio 9.1 (10-20); Calcium 8.4 mg/dl (8.5-10.1); Creatinine Clr Calc Pharmacy 9.8 ml/min; Est GFR (African American) 8.1
[2019-12-22] MEDS ORDERED: IRON SUCROSE 200 MG in SYRINGE 0 ML IV ONE (10:30)
--- NOTE | 2019-12-22 12:04 | Nephrology Progress Note ---
Date of Service December 22, 2019 Assessment & Plan (1) ESRD on dialysis: Augie completed 3 hours of HD yesterday for net UF 2 L. Additional 3 hours have been ordered today. Qb is reasonable. AVF functioning well. UF goal 2 L. Post treatment, he should be close to EDW. Next HD will be planned for . Ideally, I would like to avoid day of discharge dialysis and monitor Augie an additional 24 hours. Unfortunately, he is very adamant about going home today. I reviewed the plan of care with Dr. Gold. Augie is medically stable at this time otherwise. EGD was reassuring. He has not had any evidence of significant GI blood loss overnight. Close follow up at [facility] with HD on can be provided (assuming Augie does attend treatment as scheduled). Medications are appropriately dosed for kidney function. (2) Anemia of renal disease: 1 u PRBC provided on admission. An additional 2 units provided with HD yesterday. EGD did not show significant evidence of active bleed but blood counts remain low despite multiple transfusions. Venofer 200 mg and Epogen 70331 units will be provided with HD today. (3) GAVE (gastric antral vascular ectasia): GI consult reviewed. EGD scheduled. (4) Diabetes mellitus, type 2: (5) Hypertension: BP acceptable. No change to home therapy necessary at this time. Continue home medications as Rx'd. (6) Cirrhosis: Palliative care consultation had been requested but based on my conversations with Augie today, he is going to be very resistant to any further discussions regarding plan of care. I have not spoken directly with his or daughters. I did explain to Augie that we will need some assurance that he is going to be safe at home and able to attend scheduled dialysis treatments. He expressed understanding. Admission and Anticipated Discharge Date Admission Date: December 20, 2019 Subjective No acute events overnight. Augie feels well today. He was seen and evaluated prior to and during hemodialysis. He was adamant about going home today. Augie states that he is resolved to continue hemodialysis. He refers to the support of his as playing a major role in this. He has not had melena or hematochezia overnight. He is breathing comfortably. Appetite is good. Augie tolerated HD well yesterday. Net UF 2 L. He is tolerating HD well today. Qb 375. Access pressures good. UF goal 2 L. Review of Systems Review of Systems: All systems reviewed & are unremarkable except as noted in HPI & below Physical Exam Constitutional: well developed and + frail appearing; no acute distress Eyes: + conjunctival abnormality (pallor) and + anicteric sclerae ENMT: Mouth: no oral mucosal abnormality and oral mucous membranes not dry Neck: normal visual inspection and trachea midline Respiratory: normal respiratory effort Auscultation: lungs clear to auscultation bilaterally Cardiovascular: Rate/Rhythm: regular rate Heart Sounds: normal S1, normal S2 and + murmur Extremities: + AV fistula (bruising medial to proximal needle site. Stable and unchanged. No induratio); no edema Musculoskeletal: Extremities: no cyanosis and no clubbing Skin: normal turgor; no lesions Neurologic: Motor/Sensory: no tremor and no asterixis Psychiatric: Orientation: alert and oriented x 3 Results & Data ([facility]) Vital Signs (Past 12 Hours) Vital Signs Temp Pulse Pulse Pulse Resp BP BP 12/22/19 11:50 36.8 C 56 L 81 18 109/72 12/22/19 11:40 60 151/70 H 12/22/19 11:20 59 L 160/64 H 12/22/19 11:18 36.8 C 81 18 109/72 12/22/19 11:00 58 L 157/65 H 12/22/19 10:40 58 L 164/61 H 12/22/19 10:20 57 L 159/61 H 12/22/19 10:00 57 L 156/61 H 12/22/19 09:40 55 L 151/58 H 12/22/19 09:24 36.9 C 56 L 56 L 146/60 H 12/22/19 07:07 57 L 12/22/19 06:55 36.9 C 57 L 16 167/68 H 12/22/19 02:31 37 C 60 16 168/61 H Pulse Ox 12/22/19 11:50 98 12/22/19 11:40 12/22/19 11:20 12/22/19 11:18 98 12/22/19 11:00 12/22/19 10:40 12/22/19 10:20 12/22/19 10:00 12/22/19 09:40 12/22/19 09:24 12/22/19 07:07 12/22/19 06:55 95 12/22/19 02:31 94 Laboratory Results Laboratory Results - last 24 hr 12/20/19 12/21/19 12/21/19 15:01 12:43 14:15 WBC RBC Hgb Hct MCV MCH MCHC RDW Std Deviation RDW Coeff of Jose C Plt Count MPV Sodium Potassium Chloride Carbon Dioxide Anion Gap BUN Creatinine Est Cr Clr Drug Dosing Est GFR ( Amer) Est GFR (Non-Af Amer) BUN/Creatinine Ratio Glucose POC Glucose 86 80 Calcium Magnesium Troponin I Blood Type B Positive Antibody Screen NEGATIVE Crossmatch See Detail 12/21/19 12/21/19 12/21/19 14:43 17:14 20:09 WBC RBC Hgb Hct MCV MCH MCHC RDW Std Deviation RDW Coeff of Jose C Plt Count MPV Sodium Potassium Chloride Carbon Dioxide Anion Gap BUN Creatinine Est Cr Clr Drug Dosing Est GFR ( Amer) Est GFR (Non-Af Amer) BUN/Creatinine Ratio Glucose POC Glucose 90 115 H Calcium Magnesium Troponin I 3.000 H* Blood Type Antibody Screen Crossmatch 12/22/19 12/22/19 12/22/19 07:19 08:07 08:07 WBC 3.27 L RBC 3.01 L Hgb 8.8 L Hct 28.1 L MCV 93.4 MCH 29.2 MCHC 31.3 L RDW Std Deviation 57.5 H RDW Coeff of Jose C 16.8 H Plt Count 113 L MPV 11.9 H Sodium 141 Potassium 4.0 Chloride 104 Carbon Dioxide 29 Anion Gap 7.0 BUN 63 H Creatinine 6.92 H* D Est Cr Clr Drug Dosing 9.8 Est GFR ( Amer) 8.1 Est GFR (Non-Af Amer) 7.0 BUN/Creatinine Ratio 9.1 L Glucose 78 POC Glucose 105 H Calcium 8.4 L Magnesium 2.0 Troponin I Blood Type Antibody Screen Crossmatch PG Care Time/CCT Total # of Minutes Spent Total Time Spent with Patient: Total time spent is greater than 50% in coordination of care (as documented) at patient's floor/unit and/or counseling patient: Coding Level of Care Code 14518 Subseq Hosp Care Lvl 3 Diagnoses ESRD on dialysis N18.6; Z99.2 Anemia of renal disease N18.9; D63.1 GAVE (gastric antral vascular ectasia) K31.819 Diabetes mellitus, type 2 E11.22; N18.6; Z79.4; Z99.2 Diabetes mellitus usp insulin use: with usp use Diabetes mellitus complication status: with kidney complications Diabetes mellitus complication detail: with chronic kidney disease Chronic kidney disease stage: on chronic dialysis Hypertension I10 Hypertension type: unspecified Cirrhosis K74.60 Ascites presence: unspecified Hepatic cirrhosis type: unspecified hepatic cirrhosis (1) Diabetes mellitus, type 2 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 professor use Diabetes mellitus complication status: with kidney complications Diabetes mellitus complication detail: with chronic kidney disease Chronic kidney disease stage: on chronic dialysis Qualified Code(s): E11.22 - Type 2 diabetes mellitus with diabetic chronic kidney disease; N18.6 - End stage renal disease; Z79.4 - group home (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 (2) Hypertension Hypertension type: unspecified Qualified Code(s): I10 - Essential (primary) hypertension (3) Cirrhosis Ascites presence: unspecified Hepatic cirrhosis type: unspecified hepatic cirrhosis Qualified Code(s): K74.60 - Unspecified cirrhosis of liver
[2019-12-22] MEDS: HydrALAZINE TAB 50 MG TAB PO SCH ×3 (13:04→16:58)
[2019-12-22] MEDS: NEPHROCAPS PO SCH (13:05)
[2019-12-22] MEDS: LABETALOL HCL 200 MG TAB PO SCH (13:05)
[2019-12-22] MEDS: BUMETANIDE 1 MG TAB PO SCH ×2 (13:06→16:57)
[2019-12-22] MEDS: LACTULOSE SYRUP 20 GM/30 ML UDC PO SCH (13:06)
--- NOTE | 2019-12-22 19:04 | Discharge Summary ---
Date of Service December 22, 2019 Admission HPI Per Admitting Provider For EGD Principal Diagnosis GAVE; bleeding NSTEMI Discharge Exam Constitutional WD/WN, vitals as above Eyes EOM intact bilaterally; no conjunctival abnormality ENMT external ear and nose normal, oropharynx normal Neck trachea midline, no thyromegaly normal visual inspection Respiratory normal respiratory effort, lungs clear to auscultation no respiratory distress Cardiovascular Rate/Rhythm: regular rate and + tachycardic Heart Sounds: normal S1 and normal S2 Vessels: no JVD Extremities: + edema (1+ bilaterally) Gastrointestinal (Abdomen) Inspection/Auscultation: abdomen normal to inspection; abdomen not distended Musculoskeletal no cyanosis or clubbing, extremities motor strength 5/5 Skin no rashes, warm and dry Neurologic moves all extremities and awake Psychiatric Orientation: alert, oriented to person and cooperative Discharge Data Allergies Allergy/AdvReac Type Severity Reaction Status Date / Time sucralfate [From Carafate] Allergy Mild upset Verified 11/11/19 10:26 dialysis tramadol AdvReac Severe disorented Verified 11/11/19 10:26 ,falling down lorazepam [From Ativan] AdvReac Intermediate unresponsive, Verified 11/11/19 10:26 confusion metformin AdvReac Intermediate CONFUSION Verified 11/11/19 10:26 Consultations 12/20/19 14:41 Consult Gastroenterology Routine Consult Nephrology Routine 12/20/19 15:03 ED Decision to Admit Stat 12/20/19 19:21 Consult Cardiology Routine 12/21/19 12:04 Consult Palliative Care Routine Procedures Performed Operation Date: 12/21/19 16:00 Actual Procedures p EGD Hemostasis - Mando White Ordered Studies 12/20/19 10:28 US venous doppler LE Stat Hospital Course (1) Non-ST elevation (NSTEMI) myocardial infarction: Chest pain began around 7:15am morning of admission. EKG shows tachycardia and RBBB, but is otherwise stable from 11/2019. Troponin was 0.319 on admission. - Trend troponins & EKGs -> Up to 3.9 on 12/20, though remains chest pain free. Troponin went down by discharge to 3.0. - Discussed with cardiology today. He is not a candidate for intervention as he has clear contraindication to anti-platelet and heparin therapy. Start nitro if further chest pain. Transfuse past hgb of 8. - Started Imdur for anginal symptoms. (2) GAVE (gastric antral vascular ectasia): Has had many EGDs with argon laser. Last one in 09/2019. - Given hemoglobin drop and chest pain, got 1 unit PRBCs on 12/19, and another 2 units on 12/20 with HD. - GI consulted -> EGD showed further ectasias. - Continue PPI BID (3) ESRD on dialysis: Makes a small amount of urine at baseline. Last HD was on 12/18, but had missed 4 sessions prior to that. - Nephrology consulted - Continue HTN regimen and nephrocaps - Underwent HD on 12/20 & 12/21. (4) Diabetes mellitus, type 2: A1c was 5.8% in 08/2019. - Hold oral meds - DM diet - Lower long-acting to 10 units HS instead of home 15 units - Sliding scale insulin - Repeat A1c is 6.1%; unclear if this will really give us useful information given his vast number of transfusions and ESRD. (5) Hypertension: Resistant due to ESRD. In the ED, his BP is 160/75. - Continue home amlodipine, hydralazine, labetalol (6) Hypothyroidism: TSH was 42 in 10/2019 and has been consistently climbing. Unclear when his dose was last adjusted and if compliance is an issue. (Prior notes indicate it is due to not taking Synthroid.) - Continue Synthroid 350 mcg daily (7) Cirrhosis: Unknown cause. Today he demonstrates some mild slowness in responses, but easily arousable. - Continue lactulose (8) Obstructive sleep apnea: On 2L NC at night. - Continue O2 PRN (9) BPH (benign prostatic hyperplasia): Makes minimal urine at baseline. - PVRs as needed - Continue tamsulosin (10) Anemia of renal disease: Baseline anemia from ESRD, iron deficiency, and recurrent GI bleeding. Hgb usually 8-9. - Hgb was 7.6 on admission as above - Treat multimodally as per usual (11) DVT prophylaxis: SCDs - Will avoid heparin as able given the concern for GI bleed and his known GAVE Total Time Total Time Spent Total Time Spent (In Minutes): 35 Discharge Plan Discharge Items Patient Disposition: Home - Home Health Services Reason For Visit: CHEST PAIN Discharge Diagnosis: Heart attack, GI bleeding Activity: Resume your previous activity Non-emergency contact: Primary Care Provider, Occup Therapist and Sorting And Folding Supervisor Call non-emergency contact if: your symptoms worsen Follow-up/Referrals: Martin Daugherty MD [Physician] - Mahsa Wang DO [Primary Care Provider] - Diet: Carb Consistent or DM2 and Dialysis Renal Addtl Attending Provider Instructions: You were admitted to the hospital with chest pain. We did see some stress on the heart. Luckily this resolved on its own, and we did not need to do any medication. Dr. Daugherty felt it was due to the low blood counts (low hemoglobin) and when we fixed that you felt better. Please, please, please go to your dialysis sessions in [place]. You can get your counts checked then, get blood, and get iron or Epo if you need it and will make you feel better and hopefully prevent further chest pain. Pending Studies at Discharge: No Stand-Alone Forms: My [facility] [employer], Smoking Cessation Medications and DC Order Prescriptions: New isosorbide mononitrate 30 mg tablet extended release 24 hr 30 mg PO DAILY Qty: 30 RF: 0 Continued calcium acetate(phosphat bind) 667 mg tablet 2,001 mg PO TIDM RF: 0 rosuvastatin 20 mg tablet 20 mg PO QPM Qty: 90 RF: 1 ferrous sulfate 325 mg (65 mg iron) tablet,delayed release (DR/EC) 325 mg PO BID Qty: 60 RF: 5 levothyroxine 200 mcg tablet 200 mcg PO QAM Qty: 90 RF: 1 levothyroxine 150 mcg tablet 150 mcg PO DAILY Qty: 90 RF: 3 bumetanide 1 mg tablet 2 mg PO BID Qty: 120 RF: 5 tamsulosin 0.4 mg capsule 0.4 mg PO HS Qty: 90 RF: 1 gabapentin 100 mg capsule 200 mg PO HS Qty: 180 RF: 1 pantoprazole 40 mg tablet,delayed release (DR/EC) 40 mg PO BID Qty: 60 RF: 3 labetalol 200 mg tablet 200 mg PO BID Qty: 180 RF: 1 folic acid 1 mg tablet 1 mg PO QDL RF: 0 docusate sodium 100 mg capsule 200 mg PO QAM Qty: 30 RF: 0 Levemir U-100 Insulin 100 unit/mL solution 15 units subcut HS RF: 0 Renal Caps 1 mg Capsule 1 cap PO QDL RF: 0 amlodipine 10 mg tablet 10 mg PO HS RF: 0 doxazosin [Cardura] 1 mg tablet 1 mg PO QDL RF: 0 hydralazine 50 mg tablet 50 mg PO TIDM RF: 0 insulin aspart U-100 [Novolog U-100 Insulin aspart] 100 unit/mL solution 0 sliding scale dose subcut QID RF: 0 lisinopril 40 mg tablet 40 mg PO QDL RF: 0 cyanocobalamin (vitamin B-12) [Vitamin B-12] 1,000 mcg Tablet 1,000 mcg PO HS RF: 0 lactulose 20 gram/30 mL Solution 20 gm PO DAILY Qty: 1500 RF: 0 Discharge Orders: Discharge Order (Routine); Ordered 12/22/19 Ordered By: Stephen Laughlin/Other Patient Handouts: Managing Type 2 Diabetes Admission Data Admit Date/Time: 12/20/19 13:06 Attending Provider: Stephen Gold Admit Provider: Stephen Gold Primary Care Provider: Mahsa Wang Other Providers: Mando White ; Jama Gracia ; Stephen Gold ; Martin Daugherty ; Renetta Liz Other Interventions: Discharge Summary Assessment (RN) Last Done: 12/22/19 11:50 DC Date/Time DO NOT enter until pt leaves facility: 12/22/19 18:44 Coding Level of Care Code D/C Day Management >30 mins Diagnoses Non-ST elevation (NSTEMI) myocardial infarction I21.4 GAVE (gastric antral vascular ectasia) K31.819 ESRD on dialysis N18.6; Z99.2 Diabetes mellitus, type 2 E11.22; N18.6; Z79.4; Z99.2 Diabetes mellitus snf insulin use: with terminal operations manager use Diabetes mellitus complication status: with kidney complications Diabetes mellitus complication detail: with chronic kidney disease Chronic kidney disease stage: on chronic dialysis Hypertension I10 Hypertension type: unspecified Hypothyroidism E03.9 Hypothyroidism type: unspecified Cirrhosis K74.60 Ascites presence: unspecified Hepatic cirrhosis type: unspecified hepatic cirrhosis Obstructive sleep apnea G47.33 BPH (benign prostatic hyperplasia) N40.0 Lower urinary tract symptom presence: unspecified whether lower urinary tract symptoms present Anemia of renal disease N18.9; D63.1 DVT prophylaxis Z29.9
== END 2019-12-22 18:44 | disposition home or self-care (01) | DRG 377 ==
LOC: ED 09:55 → 2N 13:06

== ENCOUNTER 2020-08-15 22:03 | Inpatient (IN) ==
--- NOTE | 2020-08-15 22:27 | Emergency Department Note ---
Impression & Plan Volume overload, SOB (shortness of breath), General weakness, Hypothyroidism, End stage renal disease, Acute hyperkalemia, Elevated troponin, Non-compliance ED Provider Note INFORMANT: Patient ED PROVIDER(S): Stephon Forman MD CHIEF COMPLAINT: Shortness of breath PLAN: Disposition: Admitted Condition: Good Outpatient prescription management: none Referral: None MEDICAL DECISION MAKING: Patient presented emergency [place] due to shortness of breath. He had signs of volume overload on his physical examination. The patient had blood work obtained. He was found to be in end-stage renal disease. History opponent was mildly elevated. The patient's potassium was mildly elevated as well. He was found to have an elevated TSH consistent with hypothyroidism. Patient has a significant anemia but this is unchanged from baseline. Patient was given 80 mg of IV Lasix. EKG did show A. fib which is chronic. The patient had chronic findings on chest x-ray. The patient will need to be admitted for further management and dialysis in the morning. Consultation was made with Dr. Adan of the hospitalist service. The patient was evaluated in the ER and admitted. Triage Nursing notes reviewed and agree them. Vital Signs: reviewed and remarkable for no significant abnormalities Differential diagnosis: Fluid overload, electrolyte abnormality, Reactive airway disease, pneumonia, pneumothorax, COPD, CHF, infections, cardiac ischemia, pulmonary embolism, musculoskeletal, gastrointestinal, as well as other pathologies. Diagnostics interpreted by me: ECG: Twelve-lead ECG reveals A. fib at 91 bpm. Inferior T wave inversions and right bundle branch block. No ST elevation. No PVCs. Cardiac Monitoring: Cardiac monitoring ordered by me: The patient was placed on continuous cardiac monitoring and observed. It revealed atrial fibrillation at 88 bpm. Imaging studies: Chest x-ray reveals chronic findings. There is atelectasis noted in the left. No infiltrate, pneumothorax or free air. Consultation(s): Hospitalist service HPI: The patient is a 80 year old male who presents to the Emergency Room with complaints of SOB. This started last week and is worsening. The patient also notes the following associated symptoms, weakness, abdominal bloating. He missed dialysis last week. The patient has found no relieving factors. Current pain is rated as 0/10. Pt denies LOC, headache, fevers, chills, diaphoresis, visual changes, neck pain, chest pain, nausea, vomiting, abdominal pain, back pain, melena, hematochezia, urinary symptoms, numbness, lymphadenopathy, rash, or other complaints. ROS: See above HPI for pertinent positives & negatives. A total of 10 systems reviewed and were otherwise negative. PAST MEDICAL HISTORY:See Below , ESRD PAST SURGICAL HISTORY:See Below, FAMILY HISTORY:See Below SOCIAL HISTORY:See Below, HOME MEDICATIONS:See Below ALLERGIES:See Below VITALS:See Below PHYSICAL EXAMINATION: GENERAL: Awake, alert, tired-appearing, in no distress HENT: Normocephalic, atraumatic. Oropharynx unremarkable. EYES: Normal conjunctiva. Sclera non-icteric. NECK: Inspection normal. Non-tender. Supple. No nuchal rigidity. FROM. No masses. RESPIRATORY: Scattered rales. No wheezes. Normal respiratory effort. CARDIAC: Normal rate. Normal rhythm. No murmurs. No rubs. Extremities warm and well perfused. Pulses equal. No JVD. GI: Soft, mildly distended. No tenderness to palpation. No rebound or guarding. No masses. RECTAL: Deferred. MUSCULOSKELETAL: Atraumatic. Chest examination reveals no tenderness. The back is symmetrical on inspection without obvious abnormality. There is no CVA tenderness to palpation. No joint edema. LOWER EXTREMITIES: Calves are equal size bilaterally and non-tender. 2+ edema. No discoloration. NEURO: Normal sensorium. No sensory or motor deficits noted. SKIN: No rash or jaundice noted. Stephon Forman MD Past Med/Surg History Medical History (Updated 08/16/20 @ 00:26 by Stephon Forman MD) Acute hyperkalemia Anemia of renal disease Anxiety and depression Arthritis Asthma AVF (arteriovenous fistula) LEFT ARM BPH (benign prostatic hyperplasia) CAD (coronary artery disease) Chronic blood loss anemia Chronic diastolic congestive heart failure Colon, diverticulosis 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, with long-term current use of insulin COPD (chronic obstructive pulmonary disease) Diabetes mellitus, type 2 Diabetic peripheral neuropathy Dialysis patient [facility] SATURDAY, SATURDAY, SATURDAY GAVE (gastric antral vascular ectasia) GERD (gastroesophageal reflux disease) GI bleed Hearing difficulty Hyperlipidemia LDL goal <70 Hypertension Hypnic jerks Hypothyroidism IgG monoclonal gammopathy Memory loss Mild cognitive impairment Mitral regurgitation Obstructive sleep apnea uses oxygen 2 l nc at hs Occlusion and stenosis of unspecified carotid artery On home oxygen therapy WEARS O2 AT 2L HS Osteoporosis Pulmonary hypertension Secondary hyperparathyroidism of renal origin SOB (shortness of breath) Vitamin D deficiency Surgical History H/O cardiac catheterization many years ago - over 10 years no stents follow with trung (NO STENTS) H/O hemorrhoidectomy History of colonoscopy History of esophagogastroduodenoscopy (EGD) MULTIPLE History of tooth extraction Hx of cholecystectomy Family History Unknown Myocardial infarction Mother Diabetes Breast cancer late 70s Hypertension Gallbladder disease Father Diabetes Hypertension Brother Diabetes Kidney disease Hypertension Denies family history of Ovarian cancer Prostate cancer Lung cancer Colorectal cancer Social History Smoking Status: Never smoker Tobacco Type: Cigarettes packs per day: 0.5; Years Smoked: 5; Number of Years Since Quit: 20; Second Hand Exposure: No; Hx Alcohol Use: No Hx Substance Use: No Preferred Language: Ghanaian Communication Ability: Effective Visual Impairment: No Limitations Hearing Ability: Hard of Hearing [place] Man Required: No Beliefs That Will Affect Care: None marital status: Current Living Situation: Spouse and Family Current Living Situation Comment: Lives w/ , Isabel Mcintyre current occupational status: disabled current occupation: works part-time at [employer] How many Children do You have: 4 other: 4 children Feels Safe at Home: Yes Childhood Exposure to Second-Hand Smoke: No Diet Comment: regular caffeine: Yes during the past year weight has: remained stable Dental Care, Regularly: Yes Physical Activity Frequency: Does not Exercise Physical Activity Frequency Comment: limited due physical condition Seatbelt Use: sometimes Sunscreen Use: No Assistive Devices: None Allergies Allergies Allergy/AdvReac Type Severity Reaction Status Date / Time sucralfate [From Carafate] Allergy Mild upset Verified 08/15/20 22:26 dialysis tramadol AdvReac Severe disorented Verified 08/15/20 22:26 ,falling down lorazepam [From Ativan] AdvReac Intermediate unresponsive, Verified 08/15/20 22:26 confusion metformin AdvReac Intermediate CONFUSION Verified 08/15/20 22:26 Home Meds Home Medications Medication Instructions Recorded Confirmed calcium acetate(phosphat bind) 667 2,001 mg PO TIDM tab 06/02/19 08/15/20 mg tablet insulin aspart U-100 [Novolog 0 sliding scale dose SUBCUT QID 06/06/19 08/15/20 U-100 Insulin aspart] cyanocobalamin (vitamin B-12) 1,000 mcg PO HS 08/14/19 08/15/20 [Vitamin B-12] Renal Caps 1 cap PO DAILY@1200 05/20/20 08/15/20 levothyroxine 150 mcg PO QAM 05/20/20 08/15/20 furosemide 120 mg PO QAM 06/22/20 08/15/20 lactulose 30 ml PO DAILY 06/22/20 08/15/20 Levemir U-100 Insulin 15 unit SUBCUT HS 06/29/20 08/15/20 doxazosin [Cardura] 1 mg PO QDL 06/29/20 08/15/20 Previous Rx's Medication Instructions Recorded docusate sodium 100 mg capsule 200 mg PO QAM #30 cap 01/19/19 gabapentin 100 mg capsule 200 mg PO HS #180 cap 11/25/19 bumetanide 1 mg tablet 2 mg PO BID #120 tab 02/12/20 pantoprazole 40 mg tablet,delayed 40 mg PO BID #60 tab 04/06/20 release folic acid 1 mg tablet 1 mg PO QDL #90 tab 04/21/20 ferrous sulfate 325 mg (65 mg 325 mg PO BID #60 tab 05/11/20 iron) tablet,delayed release hydralazine 50 mg tablet 50 mg PO TIDM #90 tab 05/11/20 levothyroxine 200 mcg tablet 200 mcg PO QAM #90 tab 05/11/20 rosuvastatin 20 mg tablet 20 mg PO QPM #90 tab 05/17/20 labetalol 200 mg tablet 200 mg PO BID #180 tab 05/30/20 amlodipine 10 mg tablet 10 mg PO HS #90 tab 06/15/20 isosorbide mononitrate 30 mg 30 mg PO QAM #90 tab 07/22/20 tablet,extended release 24 hr Results & Data (ED) Vital Signs Vital Signs - 24 hr 08/15/20 22:11 08/15/20 22:19 08/15/20 22:23 Temperature 36.8 C Temperature Source Oral Pulse Rate 83 85 Pulse Rate from SpO2 Sensor 84 Pulse Rhythm Regular Pulse Strength Normal Respiratory Rate 15 18 Respiratory Effort / Characteristics Non-Labored Spontaneous Respiratory Depth Normal Respiratory Pattern Regular Blood Pressure 145/78 H 145/78 H Blood Pressure Mean 100 100 Blood Pressure Position Sitting Pulse Oximetry 99 99 99 Oxygen Delivery Method Nasal Cannula Nasal Cannula Oxygen Flow Rate 2 2 Sepsis Recent Fever Within 48 Hours No Sepsis New/Unexplained Change in Mental Status No Sepsis Action Taken by Nursing No Action Required 08/15/20 22:29 08/15/20 22:30 08/15/20 22:31 Temperature Temperature Source Pulse Rate 83 86 99 H Pulse Rate from SpO2 Sensor 92 H 94 H 94 H Pulse Rhythm Pulse Strength Respiratory Rate 16 13 17 Respiratory Effort / Characteristics Respiratory Depth Respiratory Pattern Blood Pressure 140/70 Blood Pressure Mean 93 Blood Pressure Position Pulse Oximetry 99 99 100 Oxygen Delivery Method Oxygen Flow Rate Sepsis Recent Fever Within 48 Hours Sepsis New/Unexplained Change in Mental Status Sepsis Action Taken by Nursing 08/15/20 22:45 08/15/20 22:54 08/15/20 23:00 Temperature Temperature Source Pulse Rate 90 86 Pulse Rate from SpO2 Sensor 81 Pulse Rhythm Pulse Strength Respiratory Rate 17 15 Respiratory Effort / Characteristics Respiratory Depth Respiratory Pattern Blood Pressure 140/73 Blood Pressure Mean 95 Blood Pressure Position Pulse Oximetry 99 98 Oxygen Delivery Method Nasal Cannula Oxygen Flow Rate 2 Sepsis Recent Fever Within 48 Hours Sepsis New/Unexplained Change in Mental Status Sepsis Action Taken by Nursing 08/15/20 23:01 08/15/20 23:15 08/15/20 23:30 Temperature Temperature Source Pulse Rate 86 85 85 Pulse Rate from SpO2 Sensor 91 H 90 Pulse Rhythm Pulse Strength Respiratory Rate 17 17 14 Respiratory Effort / Characteristics Respiratory Depth Respiratory Pattern Blood Pressure Blood Pressure Mean Blood Pressure Position Pulse Oximetry 99 98 Oxygen Delivery Method Oxygen Flow Rate Sepsis Recent Fever Within 48 Hours Sepsis New/Unexplained Change in Mental Status Sepsis Action Taken by Nursing 08/15/20 23:45 08/16/20 00:00 08/16/20 00:05 Temperature Temperature Source Pulse Rate 87 84 88 Pulse Rate from SpO2 Sensor 89 85 96 H Pulse Rhythm Pulse Strength Respiratory Rate 14 14 14 Respiratory Effort / Characteristics Respiratory Depth Respiratory Pattern Blood Pressure 132/77 Blood Pressure Mean 95 Blood Pressure Position Pulse Oximetry 97 97 97 Oxygen Delivery Method Oxygen Flow Rate Sepsis Recent Fever Within 48 Hours Sepsis New/Unexplained Change in Mental Status Sepsis Action Taken by Nursing Laboratory Data Result diagrams: 08/15/20 23:08 08/15/20 23:08 Lab Results 08/15/20 08/15/20 08/15/20 Range/Units 23:05 23:05 23:08 WBC 3.34 L (4.8-10.8) K/uL RBC 2.49 L (4.7-6.1) M/uL Hgb 7.3 L (14.0-18.0) g/dL Hct 23.5 L (42-52) % MCV 94.4 (80-100) fL MCH 29.3 (25-34) pg MCHC 31.1 L (32-36) g/dL RDW Std Deviation 54.7 H (36.4-46.3) fL RDW Coeff of Jose C 15.8 H (11.5-14.5) % Plt Count 108 L (130-400) K/uL MPV 11.3 H (7.4-10.4) fL Immature Gran % (Auto) 0.3 % Neut % (Auto) 73.3 % Lymph % (Auto) 10.8 % Craig % (Auto) 10.2 % Eos % (Auto) 4.5 % Baso % (Auto) 0.9 % Neut # (Auto) 2.45 (1.4-6.5) K/uL Lymph # (Auto) 0.36 L (1.2-3.4) K/uL Craig # (Auto) 0.34 (0.11-0.59) K/uL Eos # (Auto) 0.15 (0-0.5) K/uL Baso # (Auto) 0.03 (0-0.2) K/uL Immature Gran # (Auto) 0.01 (0.00-0.02) K/uL Giant Platelets 2+ Hypochromasia Present Ovalocytes 1+ Sodium (136-145) mmol/L Potassium (3.5-5.1) mmol/L Chloride (98-107) mmol/L Carbon Dioxide (21-32) mmol/L Anion Gap (3-11) BUN (7-18) mg/dl Creatinine (0.6-1.4) mg/dl Est Cr Clr Drug Dosing ml/min Est GFR ( Amer) Est GFR (Non-Af Amer) BUN/Creatinine Ratio (10-20) Glucose (70-99) mg/dl Calcium (8.5-10.1) mg/dl Magnesium (1.8-2.4) mg/dl Total Bilirubin (0.2-1) mg/dl AST (15-37) U/L ALT (12-78) U/L Alkaline Phosphatase (45-117) U/L Troponin I (0-0.045) ng/ml Total Protein (6.4-8.2) gm/dl Albumin (3.4-5.0) gm/dl Globulin (2.5-4.0) gm/dl Albumin/Globulin Ratio (0.9-2) TSH (0.300-4.500) uIu/ml Free T4 (0.8-1.6) ng/dl COVID-19 Eval [facility] SARS-CoV-2, RNA, NAAT NEGATIVE (NEGATIVE) 08/15/20 Range/Units 23:08 WBC (4.8-10.8) K/uL RBC (4.7-6.1) M/uL Hgb (14.0-18.0) g/dL Hct (42-52) % MCV (80-100) fL MCH (25-34) pg MCHC (32-36) g/dL RDW Std Deviation (36.4-46.3) fL RDW Coeff of Jose C (11.5-14.5) % Plt Count (130-400) K/uL MPV (7.4-10.4) fL Immature Gran % (Auto) % Neut % (Auto) % Lymph % (Auto) % Craig % (Auto) % Eos % (Auto) % Baso % (Auto) % Neut # (Auto) (1.4-6.5) K/uL Lymph # (Auto) (1.2-3.4) K/uL Craig # (Auto) (0.11-0.59) K/uL Eos # (Auto) (0-0.5) K/uL Baso # (Auto) (0-0.2) K/uL Immature Gran # (Auto) (0.00-0.02) K/uL Giant Platelets Hypochromasia Ovalocytes Sodium 143 (136-145) mmol/L Potassium 5.4 H (3.5-5.1) mmol/L Chloride 104 (98-107) mmol/L Carbon Dioxide 26 (21-32) mmol/L Anion Gap 13.0 H (3-11) BUN 127 H (7-18) mg/dl Creatinine 15.70 H* (0.6-1.4) mg/dl Est Cr Clr Drug Dosing 4.9 ml/min Est GFR ( Amer) 3.0 Est GFR (Non-Af Amer) 2.6 BUN/Creatinine Ratio 8.1 L (10-20) Glucose 166 H (70-99) mg/dl Calcium 9.5 (8.5-10.1) mg/dl Magnesium 2.2 (1.8-2.4) mg/dl Total Bilirubin 0.5 (0.2-1) mg/dl AST 5 L (15-37) U/L ALT 17 (12-78) U/L Alkaline Phosphatase 78 (45-117) U/L Troponin I 0.062 H* (0-0.045) ng/ml Total Protein 6.1 L (6.4-8.2) gm/dl Albumin 3.1 L (3.4-5.0) gm/dl Globulin 3.0 (2.5-4.0) gm/dl Albumin/Globulin Ratio 1.0 (0.9-2) TSH 17.900 H (0.300-4.500) uIu/ml Free T4 0.92 (0.8-1.6) ng/dl COVID-19 Eval Order SARS-CoV-2, RNA, NAAT (NEGATIVE) Administered Medications Discontinued Medications Furosemide (Furosemide 40 Mg/4 Ml Vial) 80 mg IV NOW STA Stop: 08/16/20 00:09 Last Admin: 08/16/20 00:17 Dose: 80 mg Documented by: [id number] Discharge Plan Visit Data Chief Complaint: Shortness of Breath/Dyspnea ED Provider: Stephon Forman Discharge Problem: Volume overload, SOB (shortness of breath), General weakness, Hypothyroidism, End stage renal disease, Acute hyperkalemia, Elevated troponin, Non-compliance Forms Stand Alone Forms: My [facility] readeo Prescriptions Prescriptions: No Action calcium acetate(phosphat bind) 667 mg tablet 2,001 mg PO TIDM RF: 0 gabapentin 100 mg capsule 200 mg PO HS Qty: 180 RF: 1 bumetanide 1 mg tablet 2 mg PO BID Qty: 120 RF: 5 folic acid 1 mg tablet 1 mg PO QDL Qty: 90 RF: 1 ferrous sulfate 325 mg (65 mg iron) tablet,delayed release (DR/EC) 325 mg PO BID Qty: 60 RF: 5 hydralazine 50 mg tablet 50 mg PO TIDM Qty: 90 RF: 3 levothyroxine 200 mcg tablet 200 mcg PO QAM Qty: 90 RF: 3 rosuvastatin 20 mg tablet 20 mg PO QPM Qty: 90 RF: 1 labetalol 200 mg tablet 200 mg PO BID Qty: 180 RF: 1 amlodipine 10 mg tablet 10 mg PO HS Qty: 90 RF: 1 isosorbide mononitrate 30 mg tablet extended release 24 hr 30 mg PO QAM Qty: 90 RF: 1 pantoprazole 40 mg tablet,delayed release (DR/EC) 40 mg PO BID Qty: 60 RF: 3 docusate sodium 100 mg capsule 200 mg PO QAM Qty: 30 RF: 0 furosemide 80 mg tablet 120 mg PO QAM RF: 0 lactulose 10 gram/15 mL solution 30 ml PO DAILY RF: 0 doxazosin [Cardura] 1 mg tablet 1 mg PO QDL RF: 0 Levemir U-100 Insulin 100 unit/mL solution 15 unit subcut HS RF: 0 insulin aspart U-100 [Novolog U-100 Insulin aspart] 100 unit/mL solution 0 sliding scale dose subcut QID RF: 0 cyanocobalamin (vitamin B-12) [Vitamin B-12] 1,000 mcg Tablet 1,000 mcg PO HS RF: 0 levothyroxine 150 mcg tablet 150 mcg PO QAM RF: 0 Renal Caps 1 mg capsule 1 cap PO DAILY@1200 RF: 0
[2020-08-15 23:22] LABS: Basophils # (auto) 0.03 K/uL (0-0.2); Basophils % (auto) 0.9 %; Eosinophils # (auto) 0.15 K/uL (0-0.5); Eosinophils % (auto) 4.5 %; Hematocrit (blood only) 23.5 % (42-52); Hemoglobin 7.3 g/dL (14.0-18.0); Immature Granulocytes # (auto) 0.01 K/uL (0.00-0.02); Immature Granulocytes % (auto) 0.3 %; Lymphocytes # (auto) 0.36 K/uL (1.2-3.4); Lymphocytes % (auto) 10.8 %; Mean Corpuscular Hemoglobin 29.3 pg (25-34); Mean Corpuscular Hgb Conc 31.1 g/dL (32-36); Mean Corpuscular Volume 94.4 fL (80-100); Mean Platelet Volume 11.3 fL (7.4-10.4); Monocytes # (auto) 0.34 K/uL (0.11-0.59); Monocytes % (auto) 10.2 %; Neutrophils # (auto) 2.45 K/uL (1.4-6.5); Neutrophils % (auto) 73.3 %; Platelet Count 108 K/uL (130-400); RDW Coefficient of Variation 15.8 % (11.5-14.5); RDW Standard Deviation 54.7 fL (36.4-46.3); Red Blood Count 2.49 M/uL (4.7-6.1); White Blood Count 3.34 K/uL (4.8-10.8)
[2020-08-15 23:56] LABS: Albumin Level 3.1 gm/dl (3.4-5.0); BUN Creatinine Ratio 8.1 (10-20); Bilirubin,Total 0.5 mg/dl (0.2-1); Calcium 9.5 mg/dl (8.5-10.1); Creatinine Clr Calc Pharmacy 4.9 ml/min; Est GFR (Non-African American) 2.6; Magnesium 2.2 mg/dl (1.8-2.4); Potassium 5.4 mmol/L (3.5-5.1); Thyroid Stimulating Hormone 17.9 uIu/ml (0.300-4.500); Total Protein 6.1 gm/dl (6.4-8.2); Troponin I 0.062 ng/ml (0-0.045)
[2020-08-15 23:59] LABS: Giant Platelets 2+; Hypochromasia Present; Ovalocytes 1+
[2020-08-16] MEDS ORDERED: FUROSEMIDE 40 MG/4 ML VIAL IV STA (00:08)
[2020-08-16 00:09] LABS: T4 Free Thyroxine 0.92 ng/dl (0.8-1.6)
--- NOTE | 2020-08-16 00:45 | History & Physical Report ---
Date of Service August 16, 2020 Assessment & Plan (1) ESRD needing dialysis: Darnell Mcintyre is a 80-year-old male with past medical history significant for end-stage renal disease requiring hemodialysis, chronic blood loss anemia, GERD, diabetes, vitamin D deficiency, GAVE, hypertension, hypothyroidism, peripheral vascular disease; presented to the emergency department for volume overload, shortness of breath in the setting of end-stage renal disease with missed dialysis appointments over the last week. End-stage renal disease: -Patient is supposed to receive dialysis at [facility] in [place] on Saturday//Saturdays; missed last week's appointments -On admission creatinine of 15 0.7, BUN 127 -Nephrology consulted for dialysis appointments while inpatient -Very complex situation as patient continues to miss dialysis appointments as outpatient on regular basis and then subsequently requires admission for dialysis in hospital Dyspnea: -Likely secondary to volume overload in the setting of missed dialysis appointments -Received Lasix in ED, and should receive dialysis as above for reduction in volume overload -Continue Bumex while inpatient -Wean oxygen supplementation while maintaining sats greater than 90% -Likely will have improvement following hemodialysis Elevated troponin: -Troponin on admission 0.062 -Likely contributions from volume overload causing heart strain as patient does appear to have resolution of troponin with decreased volume status -Repeat troponin in a.m. Atrial fibrillation: -EKG demonstrating atrial fibrillation, this appears chronic -Previously determined to be likely result of ESRD and noncompliance with hemodialysis -Given history of recurrent gastrointestinal bleeds patient not a candidate for anticoagulation -Continue labetalol Hyperkalemia: -Potassium on admission 5.4 -Continue to monitor in the setting of impending hemodialysis -Continue phosphate binder, renal cap daily Chronic anemia: -Hgb 7.3 on admission (based off previous labs appears to typically be between 7 and 8) -Previously evaluated for GAVE, which is previously been determined to be contributor to chronic anemia -Continue to monitor in setting of impending hemodialysis Diet: Renal diet CODE STATUS: Full code (2) Acute hyperkalemia: (3) Elevated troponin: (4) SOB (shortness of breath): (5) Anemia: (6) Mild cognitive impairment: History of Present Illness Chief Complaint: Volume overload/shortness of breath/ESRD requiring dialysis Primary Care Provider: Mahsa Wang DO Darnell Mcintyre is a 80-year-old male with past medical history significant for end-stage renal disease requiring hemodialysis, chronic blood loss anemia, GERD, diabetes, vitamin D deficiency, GAVE, hypertension, hypothyroidism, peripheral vascular disease; presented to the emergency department for volume overload, shortness of breath in the setting of end-stage renal disease. Was recently in hospital approximately 2 weeks ago, during that time he received dialysis, subsequently discharged did not attend dialysis appointments last week, as he felt too tired to attend. Denies loss of consciousness, headaches, fevers, chills, sweats, chest pain, nausea, vomiting, abdominal pain, bright red blood per rectum, melena. Allergies Allergy/AdvReac Type Severity Reaction Status Date / Time sucralfate [From Carafate] Allergy Mild upset Verified 08/15/20 22:26 dialysis tramadol AdvReac Severe disorented Verified 08/15/20 22:26 ,falling down lorazepam [From Ativan] AdvReac Intermediate unresponsive, Verified 08/15/20 22:26 confusion metformin AdvReac Intermediate CONFUSION Verified 08/15/20 22:26 Home Medications Medication Instructions Recorded Confirmed Type docusate sodium 100 mg capsule 200 mg PO QAM #30 cap 01/19/19 08/15/20 Rx calcium acetate(phosphat bind) 667 2,001 mg PO TIDM tab 06/02/19 08/15/20 History mg tablet insulin aspart U-100 [Novolog 0 sliding scale dose SUBCUT QID 06/06/19 08/15/20 History U-100 Insulin aspart] cyanocobalamin (vitamin B-12) 1,000 mcg PO HS 08/14/19 08/15/20 History [Vitamin B-12] gabapentin 100 mg capsule 200 mg PO HS #180 cap 11/25/19 08/15/20 Rx bumetanide 1 mg tablet 2 mg PO BID #120 tab 02/12/20 08/15/20 Rx pantoprazole 40 mg tablet,delayed 40 mg PO BID #60 tab 04/06/20 08/15/20 Rx release folic acid 1 mg tablet 1 mg PO QDL #90 tab 04/21/20 08/15/20 Rx ferrous sulfate 325 mg (65 mg 325 mg PO BID #60 tab 05/11/20 08/15/20 Rx iron) tablet,delayed release hydralazine 50 mg tablet 50 mg PO TIDM #90 tab 05/11/20 08/15/20 Rx levothyroxine 200 mcg tablet 200 mcg PO QAM #90 tab 05/11/20 08/15/20 Rx rosuvastatin 20 mg tablet 20 mg PO QPM #90 tab 05/17/20 08/15/20 Rx Renal Caps 1 cap PO DAILY@1200 05/20/20 08/15/20 History levothyroxine 150 mcg PO QAM 05/20/20 08/15/20 History labetalol 200 mg tablet 200 mg PO BID #180 tab 05/30/20 08/15/20 Rx amlodipine 10 mg tablet 10 mg PO HS #90 tab 06/15/20 08/15/20 Rx furosemide 120 mg PO QAM 06/22/20 08/15/20 History lactulose 30 ml PO DAILY 06/22/20 08/15/20 History Levemir U-100 Insulin 15 unit SUBCUT HS 06/29/20 08/15/20 History doxazosin [Cardura] 1 mg PO QDL 06/29/20 08/15/20 History isosorbide mononitrate 30 mg 30 mg PO QAM #90 tab 07/22/20 08/15/20 Rx tablet,extended release 24 hr Past Med/Surg History Medical History Acute hyperkalemia Anemia of renal disease Anxiety and depression Arthritis Asthma AVF (arteriovenous fistula) LEFT ARM BPH (benign prostatic hyperplasia) CAD (coronary artery disease) Chronic blood loss anemia Chronic diastolic congestive heart failure Colon, diverticulosis 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, with long-term current use of insulin COPD (chronic obstructive pulmonary disease) Diabetes mellitus, type 2 Diabetic peripheral neuropathy Dialysis patient [facility] SATURDAY, SATURDAY, SATURDAY GAVE (gastric antral vascular ectasia) GERD (gastroesophageal reflux disease) GI bleed Hearing difficulty Hyperlipidemia LDL goal <70 Hypertension Hypnic jerks Hypothyroidism IgG monoclonal gammopathy Memory loss Mild cognitive impairment Mitral regurgitation Obstructive sleep apnea uses oxygen 2 l nc at hs Occlusion and stenosis of unspecified carotid artery On home oxygen therapy WEARS O2 AT 2L HS Osteoporosis Pulmonary hypertension Secondary hyperparathyroidism of renal origin SOB (shortness of breath) Vitamin D deficiency Surgical History H/O cardiac catheterization many years ago - over 10 years no stents follow with trung (NO STENTS) H/O hemorrhoidectomy History of colonoscopy History of esophagogastroduodenoscopy (EGD) MULTIPLE History of tooth extraction Hx of cholecystectomy Family History Unknown Myocardial infarction Mother Diabetes Breast cancer late 70s Hypertension Gallbladder disease Father Diabetes Hypertension Brother Diabetes Kidney disease Hypertension Denies family history of Ovarian cancer Prostate cancer Lung cancer Colorectal cancer Social History Smoking Status: Former smoker Tobacco Type: Cigarettes packs per day: 0.5; Years Smoked: 5; Number of Years Since Quit: 20; Second Hand Exposure: No; Do You Dip or Chew Tobacco: No; Tobacco Cessation Education Requested by Patient: No Hx Alcohol Use: No Hx Substance Use: No Preferred Language: Amharic Communication Ability: SITKA Visual Impairment: No Limitations Hearing Ability: Hard of Hearing Remotely Piloted Vehicle Controller Required: No Beliefs That Will Affect Care: None marital status: Current Living Situation: Spouse Current Living Situation Comment: Lives w/ , Isabel Mcintyre current occupational status: disabled current occupation: works part-time at [employer] How many Children do You have: 4 Other Information That Helps Us Care for You: No other: 4 children Feels Safe at Home: Yes Safety Concerns: Feels Safe At This Time Childhood Exposure to Second-Hand Smoke: No Diet Comment: regular caffeine: Yes during the past year weight has: remained stable Dental Care, Regularly: Yes Physical Activity Frequency: Does not Exercise Physical Activity Frequency Comment: limited due physical condition Seatbelt Use: sometimes Sunscreen Use: No Assistive Devices: Oxygen - Continuous Review of Systems Review of Systems: All systems reviewed & are unremarkable except as noted in HPI & below Physical Exam Constitutional: WD/WN, vitals as above + lethargic; no acute distress Eyes: PERRL, conjunctivae normal, anicteric sclerae ENMT: external ear and nose normal, oropharynx normal Respiratory: normal respiratory effort, lungs clear to auscultation Cardiovascular: Rate/Rhythm: regular rate and regular rhythm Heart Sounds: no gallop, no murmur and no cardiac rub Vessels: no JVD Extremities: + edema (2+ to groin); no calf tenderness Psychiatric: Orientation: alert and oriented x 3 Results & Data Results & Data ([facility]) Vital Signs (Past 12 Hours) Vital Signs Temp Pulse Resp BP Pulse Ox 08/16/20 00:31 90 15 97 08/16/20 00:30 95 H 15 137/73 97 08/16/20 00:15 84 15 97 08/16/20 00:06 81 14 97 08/16/20 00:05 88 14 132/77 97 08/16/20 00:00 84 14 97 08/15/20 23:45 87 14 97 08/15/20 23:30 85 14 98 08/15/20 23:15 85 17 08/15/20 23:01 86 17 99 08/15/20 23:00 86 15 140/73 98 08/15/20 22:54 99 08/15/20 22:45 90 17 08/15/20 22:31 99 H 17 100 08/15/20 22:30 86 13 140/70 99 08/15/20 22:29 83 16 99 08/15/20 22:23 99 08/15/20 22:19 36.8 C 85 18 145/78 H 99 08/15/20 22:11 83 15 145/78 H 99 Laboratory Results 08/16/20 08/15/20 08/15/20 Range/Units 02:50 23:08 23:08 WBC 3.34 L (4.8-10.8) K/uL RBC 2.49 L (4.7-6.1) M/uL Hgb 7.3 L (14.0-18.0) g/dL Hct 23.5 L (42-52) % MCV 94.4 (80-100) fL MCH 29.3 (25-34) pg MCHC 31.1 L (32-36) g/dL RDW Std Deviation 54.7 H (36.4-46.3) fL RDW Coeff of Jose C 15.8 H (11.5-14.5) % Plt Count 108 L (130-400) K/uL MPV 11.3 H (7.4-10.4) fL Immature Gran % (Auto) 0.3 % Neut % (Auto) 73.3 % Lymph % (Auto) 10.8 % [place] % (Auto) 10.2 % Eos % (Auto) 4.5 % Baso % (Auto) 0.9 % Neut # (Auto) 2.45 (1.4-6.5) K/uL Lymph # (Auto) 0.36 L (1.2-3.4) K/uL [place] # (Auto) 0.34 (0.11-0.59) K/uL Eos # (Auto) 0.15 (0-0.5) K/uL Baso # (Auto) 0.03 (0-0.2) K/uL Immature Gran # (Auto) 0.01 (0.00-0.02) K/uL Giant Platelets 2+ Hypochromasia Present Ovalocytes 1+ Sodium 143 (136-145) mmol/L Potassium 5.4 H (3.5-5.1) mmol/L Chloride 104 (98-107) mmol/L Carbon Dioxide 26 (21-32) mmol/L Anion Gap 13.0 H (3-11) BUN 127 H (7-18) mg/dl Creatinine 15.70 H* (0.6-1.4) mg/dl Est Cr Clr Drug Dosing 4.9 ml/min Est GFR ( Amer) 3.0 Est GFR (Non-Af Amer) 2.6 BUN/Creatinine Ratio 8.1 L (10-20) Glucose 166 H (70-99) mg/dl Calcium 9.5 (8.5-10.1) mg/dl Magnesium 2.2 (1.8-2.4) mg/dl Total Bilirubin 0.5 (0.2-1) mg/dl AST 5 L (15-37) U/L ALT 17 (12-78) U/L Alkaline Phosphatase 78 (45-117) U/L Troponin I 0.062 H* (0-0.045) ng/ml Total Protein 6.1 L (6.4-8.2) gm/dl Albumin 3.1 L (3.4-5.0) gm/dl Globulin 3.0 (2.5-4.0) gm/dl Albumin/Globulin Ratio 1.0 (0.9-2) TSH 17.900 H (0.300-4.500) uIu/ml Free T4 0.92 (0.8-1.6) ng/dl Urine Color Yellow Urine Appearance Clear (Clear) Urine pH 6.0 (4.5-7.5) Ur Specific [place] 1.015 (1.000-1.030) Urine Protein 2+ H (Negative) Urine Glucose (UA) Trace H (Negative) Urine Ketones Negative (Negative) Urine Blood Negative (Negative) Urine Nitrite Negative (Negative) Urine Bilirubin Negative (Negative) Urine Urobilinogen Negative (Negative) Ur Leukocyte Esterase 1+ H (Negative) Urine WBC (Auto) >30 H (0-5) /hpf Urine RBC (Auto) 5-10 H (0-4) /hpf U Hyaline Cast (Auto) 1-5 (0-5) /lpf U Epithel Cells (Auto) >30 H (0-5) /lpf Urine Bacteria (Auto) Negative (Negative) COVID-19 Eval Order SARS-CoV-2, RNA, NAAT (NEGATIVE) 08/15/20 08/15/20 Range/Units 23:05 23:05 WBC (4.8-10.8) K/uL RBC (4.7-6.1) M/uL Hgb (14.0-18.0) g/dL Hct (42-52) % MCV (80-100) fL MCH (25-34) pg MCHC (32-36) g/dL RDW Std Deviation (36.4-46.3) fL RDW Coeff of Jose C (11.5-14.5) % Plt Count (130-400) K/uL MPV (7.4-10.4) fL Immature Gran % (Auto) % Neut % (Auto) % Lymph % (Auto) % [place] % (Auto) % Eos % (Auto) % Baso % (Auto) % Neut # (Auto) (1.4-6.5) K/uL Lymph # (Auto) (1.2-3.4) K/uL [place] # (Auto) (0.11-0.59) K/uL Eos # (Auto) (0-0.5) K/uL Baso # (Auto) (0-0.2) K/uL Immature Gran # (Auto) (0.00-0.02) K/uL Giant Platelets Hypochromasia Ovalocytes Sodium (136-145) mmol/L Potassium (3.5-5.1) mmol/L Chloride (98-107) mmol/L Carbon Dioxide (21-32) mmol/L Anion Gap (3-11) BUN (7-18) mg/dl Creatinine (0.6-1.4) mg/dl Est Cr Clr Drug Dosing ml/min Est GFR ( Amer) Est GFR (Non-Af Amer) BUN/Creatinine Ratio (10-20) Glucose (70-99) mg/dl Calcium (8.5-10.1) mg/dl Magnesium (1.8-2.4) mg/dl Total Bilirubin (0.2-1) mg/dl AST (15-37) U/L ALT (12-78) U/L Alkaline Phosphatase (45-117) U/L Troponin I (0-0.045) ng/ml Total Protein (6.4-8.2) gm/dl Albumin (3.4-5.0) gm/dl Globulin (2.5-4.0) gm/dl Albumin/Globulin Ratio (0.9-2) TSH (0.300-4.500) uIu/ml Free T4 (0.8-1.6) ng/dl Urine Color Urine Appearance (Clear) Urine pH (4.5-7.5) Ur Specific [place] (1.000-1.030) Urine Protein (Negative) Urine Glucose (UA) (Negative) Urine Ketones (Negative) Urine Blood (Negative) Urine Nitrite (Negative) Urine Bilirubin (Negative) Urine Urobilinogen (Negative) Ur Leukocyte Esterase (Negative) Urine WBC (Auto) (0-5) /hpf Urine RBC (Auto) (0-4) /hpf U Hyaline Cast (Auto) (0-5) /lpf U Epithel Cells (Auto) (0-5) /lpf Urine Bacteria (Auto) (Negative) COVID-19 Eval Order Covid19 IDNow [facility] SARS-CoV-2, RNA, NAAT NEGATIVE (NEGATIVE) Medications Administered Current Inpatient Medications Amlodipine Besylate (Amlodipine Besylate 5 Mg Tab) 10 mg PO HS SHANTA Stop: 09/15/20 20:59 Bumetanide (Bumetanide 1 Mg Tab) 2 mg PO BID17 SHANTA Stop: 09/15/20 08:59 Docusate Sodium (Docusate Sodium 100 Mg Cap) 200 mg PO QAM SHANTA Stop: 09/15/20 08:59 Doxazosin Mesylate (Doxazosin Mesylate 1 Mg Tab) 1 mg PO QDL SHANTA Stop: 09/15/20 11:29 Ferrous Sulfate (Ferrous Sulfate 325 Mg Tab) 325 mg PO BID SHANTA Stop: 09/15/20 08:59 Folic Acid (Folic Acid 1 Mg Tab) 1 mg PO QDL SHANTA Stop: 09/15/20 11:29 Furosemide (Furosemide 40 Mg Tab) 120 mg PO QAM SHANTA Stop: 09/15/20 08:59 Gabapentin (Gabapentin 100 Mg Cap) 200 mg PO HS SHANTA Stop: 09/15/20 20:59 Hydralazine HCl (Hydralazine Tab 50 Mg Tab) 50 mg PO TIDM SHANTA Stop: 09/15/20 07:59 Isosorbide Mononitrate (Isosorbide [place] Extended Rel 30 Mg Tabcr) 30 mg PO QAM SHANTA Stop: 09/15/20 08:59 Labetalol HCl (Labetalol Hcl 200 Mg Tab) 200 mg PO BID SHANTA Stop: 09/15/20 08:59 Lactulose (Lactulose Syrup 20 Gm/30 Ml Udc) 20 gm PO DAILY SHANTA Stop: 09/15/20 08:59 Levothyroxine Sodium (Levothyroxine Sodium 150 Mcg Tablet) 150 mcg PO DAILYBB SHANTA Stop: 09/15/20 06:29 Levothyroxine Sodium (Levothyroxine Sodium 200 Mcg Tablet) 200 mcg PO DAILYBB SHANTA Stop: 09/15/20 06:29 Pantoprazole Sodium (Pantoprazole 40 Mg Tab) 40 mg PO BID SHANTA Stop: 09/15/20 08:59 Rosuvastatin Calcium (Rosuvastatin Calcium 20 Mg Tab) 20 mg PO QPM SHANTA Stop: 09/15/20 20:59 Vitamin B Complex/Folic Acid (Nephrocaps) 1 cap PO DAILY@1200 SHANTA Stop: 09/15/20 11:59 Supervising Physician Co-Signing Physician Notes Patient seen and examined, chart reviewed, case discussed with Dr. Jewell and I agree with his assessment and plan as documented above. Briefly, patient is a 80yo male with history of ESRD on HD presenting with SOB and volume overload in setting of missing HD x 1 week. Typically is dialyzed T/R/S in [place]. Last full dialysis was 7 days ago (last Saturday). On exam he is afebrile, HD stable, NAD HEENT - NC/AT, PERRL, Neck supple Heart - +S1/S2, regular, no m/r/g Lungs - CTA Abd - +BS, soft, NT/DN Ext - +edema Labs and images reviewed. Significant for normochromic/normocytic anemia with Hgb=7.3, K=5.4, HCO3=26, DPW=650 Assessment/Plan: 80yo C male presents with SOB after missing HD x 1 week. Afebrile, HD stable, adequate oxygenation. laboratory parameters consistent with need for HD, however, no emergent requirement -HD later today -Remainder of plan as above Resident Activity Tracking Resident Involvement: Resident Care Provided Care Provided: Adult Hospital Medicine (1) Anemia Anemia type: due to chronic kidney disease Chronic kidney disease stage: on chronic dialysis Qualified Code(s): N18.6 - End stage renal disease; D63.1 - Anemia in chronic kidney disease; Z99.2 - Dependence on renal dialysis
[2020-08-16 03:09] LABS: Appearance Urine Clear (Clear); Bacteria Urine Automated Negative (Negative); Bilirubin Urine Negative (Negative); Blood Urine Negative (Negative); Color Urine Yellow; Epithelial Cell Urine Auto >30 /lpf (0-5); Glucose Urine UA Trace (Negative); Ketones Urine Negative (Negative); Leukocyte Esterase Urine 1+ (Negative); Nitrite Urine Negative (Negative); Protein Urine 2+ (Negative); Specific Gravity Urine 1.015 (1.000-1.030); Urobilinogen Urine Negative (Negative); WBC Urine Automated >30 /hpf (0-5)
[2020-08-16] MEDS: LEVOTHYROXINE SODIUM 200 MCG TABLET PO SCH (06:14)
[2020-08-16] MEDS: LEVOTHYROXINE SODIUM 150 MCG TABLET PO SCH (06:14)
--- NOTE | 2020-08-16 07:30 | XRay Report ---
XR chest 1V portable HISTORY: weakness COMPARISON: Chest 08/01/2020. FINDINGS: No pneumothorax. The cardiac silhouette remains mildly enlarged. There are trace bilateral pleural effusions. Linear densities within the left mid to lower lung zone persist. No new focal lung consolidations. There is mild central pulmonary vascular congestion without overt edema. IMPRESSION: 1. Mild central pulmonary vascular congestion without overt edema. 2. No change in the linear densities within the left mid to lower lung zone. This may represent atele ctasis or pneumonia. ACT 112: Negative or not required by law. Electronically signed by: Jose C Jaeger M.D. 08/16/2020 7:29 AM
[2020-08-16 08:14] LABS: Basophils # (auto) 0.02 K/uL (0-0.2); Basophils % (auto) 0.7 %; Eosinophils # (auto) 0.11 K/uL (0-0.5); Eosinophils % (auto) 3.6 %; Hematocrit (blood only) 23.5 % (42-52); Hemoglobin 7.3 g/dL (14.0-18.0); Immature Granulocytes # (auto) 0.01 K/uL (0.00-0.02); Immature Granulocytes % (auto) 0.3 %; Lymphocytes # (auto) 0.48 K/uL (1.2-3.4); Lymphocytes % (auto) 15.7 %; Mean Corpuscular Hemoglobin 29.3 pg (25-34); Mean Corpuscular Hgb Conc 31.1 g/dL (32-36); Mean Corpuscular Volume 94.4 fL (80-100); Mean Platelet Volume 11.5 fL (7.4-10.4); Monocytes # (auto) 0.25 K/uL (0.11-0.59); Monocytes % (auto) 8.2 %; Neutrophils # (auto) 2.18 K/uL (1.4-6.5); Neutrophils % (auto) 71.5 %; Platelet Count 108 K/uL (130-400); RDW Coefficient of Variation 15.8 % (11.5-14.5); RDW Standard Deviation 54.6 fL (36.4-46.3); Red Blood Count 2.49 M/uL (4.7-6.1); White Blood Count 3.05 K/uL (4.8-10.8)
[2020-08-16] MEDS: DOCUSATE SODIUM 100 MG CAP PO SCH (08:50)
[2020-08-16] MEDS: hydrALAZINE TAB 50 MG TAB PO SCH ×3 (08:51→17:38)
[2020-08-16] MEDS: BUMETANIDE 1 MG TAB PO SCH ×2 (08:51→17:38)
[2020-08-16] MEDS: FERROUS SULFATE 325 MG TAB PO SCH ×2 (08:51→21:00)
[2020-08-16] MEDS: PANTOprazole 40 MG TAB PO SCH ×2 (08:51→21:00)
[2020-08-16] MEDS: ISOSORBIDE MONO EXTENDED REL 30 MG TABCR PO SCH (08:51)
[2020-08-16] MEDS: FUROSEMIDE 40 MG TAB PO SCH (08:51)
[2020-08-16 08:52] LABS: Creatinine Clr Calc Pharmacy 4.7 ml/min; Est GFR (African American) 2.9; Est GFR (Non-African American) 2.5; Giant Platelets 1+; Magnesium 2.2 mg/dl (1.8-2.4); Potassium 5.3 mmol/L (3.5-5.1)
[2020-08-16] MEDS: LABETALOL HCL 200 MG TAB PO SCH ×2 (08:52→21:00)
[2020-08-16] MEDS: LACTULOSE SYRUP 20 GM/30 ML UDC PO SCH (08:52)
[2020-08-16] MEDS ORDERED: HEPARIN SOD (PORCINE) 1000 UNIT/ML IV ONE (09:29)
[2020-08-16] MEDS ORDERED: SODIUM CHLORIDE 0.9% 1000ML 1,000 ML IV PRN (09:29)
[2020-08-16] MEDS ORDERED: EPOETIN ALFA 10,000 UNITS/ML VIAL IV ONE (09:31)
[2020-08-16] MEDS ORDERED: SODIUM CHLORIDE 0.9% 250 ML IV PRN ×2 (09:32→11:38)
--- NOTE | 2020-08-16 10:48 | Nephrology Consultation ---
Date of Consultation August 16, 2020 Assessment & Plan (1) End stage renal disease: * Will provide HD today - HD RN notified * Attempt 2 L UF w/ dialysis * 2K dialysate to correct hyperkalemia * Monitor PRP (2) Anemia: * Reviewed indications for blood transfusion w/ patient this am. He provided written consent * Will transfuse 2 U PRBC going on HD today * Will recheck H&H in am (3) Medically noncompliant: * Discussed importance of regular outpatient dialysis treatments w/ patient today. He voiced understanding and indicated that he wishes to continue dialysis History of Present Illness Reason for Consultation: ESRD Attending Physician: Kendall Chen, DO History of Present Illness Mr. Mcintyre is a 80 year old white male who is seen at the request of Dr. Chen to provide inpatient HD and assist w/ medical management. Medical records in the EMR were reviewed today and are summarized as follows: Mr. Mcintyre has ESRD due to diabetic nephropathy. 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 Briceno). His medical history is significant for HTN, AODM, vascular dementia, IgG monoclonal gammopathy, EFREN, BPH, hypothyroidism, [place] and CHF w/ diastolic dysfunction. Mr. Mcintyre had several hospitalizations to evaluate anemia and weakness. EGD revealed gastric antral vascular ectasia. Mr. Mcintyre reports that he did not attend any of his dialysis treatments last week due to weakness. He presented to the [facility] ED at 11 pm last night for evaluation of dyspnea. CXR revealed mild pulmonary congestion. Laboratory testing revealed K 5.3, BUN 127, Cr 15, Hgb 7.3. Patient received loop diuretic and oxygen while in the ED. Admission was advised for ongoing medical management and inpatient dialysis Allergies Allergy/AdvReac Type Severity Reaction Status Date / Time sucralfate [From Carafate] Allergy Mild upset Verified 08/15/20 22:26 dialysis tramadol AdvReac Severe disorented Verified 08/15/20 22:26 ,falling down lorazepam [From Ativan] AdvReac Intermediate unresponsive, Verified 08/15/20 22:26 confusion metformin AdvReac Intermediate CONFUSION Verified 08/15/20 22:26 Home Medications Medication Instructions Recorded Confirmed Type docusate sodium 100 mg capsule 200 mg PO QAM #30 cap 01/19/19 08/15/20 Rx calcium acetate(phosphat bind) 667 2,001 mg PO TIDM tab 06/02/19 08/15/20 History mg tablet insulin aspart U-100 [Novolog 0 sliding scale dose SUBCUT QID 06/06/19 08/15/20 History U-100 Insulin aspart] cyanocobalamin (vitamin B-12) 1,000 mcg PO HS 08/14/19 08/15/20 History [Vitamin B-12] gabapentin 100 mg capsule 200 mg PO HS #180 cap 11/25/19 08/15/20 Rx bumetanide 1 mg tablet 2 mg PO BID #120 tab 02/12/20 08/15/20 Rx pantoprazole 40 mg tablet,delayed 40 mg PO BID #60 tab 04/06/20 08/15/20 Rx release folic acid 1 mg tablet 1 mg PO QDL #90 tab 04/21/20 08/15/20 Rx ferrous sulfate 325 mg (65 mg 325 mg PO BID #60 tab 05/11/20 08/15/20 Rx iron) tablet,delayed release hydralazine 50 mg tablet 50 mg PO TIDM #90 tab 05/11/20 08/15/20 Rx levothyroxine 200 mcg tablet 200 mcg PO QAM #90 tab 05/11/20 08/15/20 Rx rosuvastatin 20 mg tablet 20 mg PO QPM #90 tab 05/17/20 08/15/20 Rx Renal Caps 1 cap PO DAILY@1200 05/20/20 08/15/20 History levothyroxine 150 mcg PO QAM 05/20/20 08/15/20 History labetalol 200 mg tablet 200 mg PO BID #180 tab 05/30/20 08/15/20 Rx amlodipine 10 mg tablet 10 mg PO HS #90 tab 06/15/20 08/15/20 Rx furosemide 120 mg PO QAM 06/22/20 08/15/20 History lactulose 30 ml PO DAILY 06/22/20 08/15/20 History Levemir U-100 Insulin 15 unit SUBCUT HS 06/29/20 08/15/20 History doxazosin [Cardura] 1 mg PO QDL 06/29/20 08/15/20 History isosorbide mononitrate 30 mg 30 mg PO QAM #90 tab 07/22/20 08/15/20 Rx tablet,extended release 24 hr Patient History Medical History Acute hyperkalemia Anemia of renal disease Anxiety and depression Arthritis Asthma AVF (arteriovenous fistula) LEFT ARM BPH (benign prostatic hyperplasia) CAD (coronary artery disease) Chronic blood loss anemia Chronic diastolic congestive heart failure Colon, diverticulosis 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, with long-term current use of insulin COPD (chronic obstructive pulmonary disease) Diabetes mellitus, type 2 Diabetic peripheral neuropathy Dialysis patient [facility] SATURDAY, SATURDAY, SATURDAY GAVE (gastric antral vascular ectasia) GERD (gastroesophageal reflux disease) GI bleed Hearing difficulty Hyperlipidemia LDL goal <70 Hypertension Hypnic jerks Hypothyroidism IgG monoclonal gammopathy Memory loss Mild cognitive impairment Mitral regurgitation Obstructive sleep apnea uses oxygen 2 l nc at hs Occlusion and stenosis of unspecified carotid artery On home oxygen therapy WEARS O2 AT 2L HS Osteoporosis Pulmonary hypertension Secondary hyperparathyroidism of renal origin SOB (shortness of breath) Vitamin D deficiency Surgical History H/O cardiac catheterization many years ago - over 10 years no stents follow with trung (NO STENTS) H/O hemorrhoidectomy History of colonoscopy History of esophagogastroduodenoscopy (EGD) MULTIPLE History of tooth extraction Hx of cholecystectomy Family History Unknown Myocardial infarction Mother Diabetes Breast cancer late 70s Hypertension Gallbladder disease Father Diabetes Hypertension Brother Diabetes Kidney disease Hypertension Denies family history of Ovarian cancer Prostate cancer Lung cancer Colorectal cancer Social History Smoking Status: Former smoker Tobacco Type: Cigarettes packs per day: 0.5; Years Smoked: 5; Number of Years Since Quit: 20; Second Hand Exposure: No; Do You Dip or Chew Tobacco: No; Tobacco Cessation Education Requested by Patient: No Hx Alcohol Use: No Hx Substance Use: No Preferred Language: [place] Communication Ability: [place] Visual Impairment: No Limitations Hearing Ability: Hard of Hearing Nicu Rn Required: No Beliefs That Will Affect Care: None marital status: Current Living Situation: Spouse Current Living Situation Comment: Lives w/ , Isabel Mcintyre current occupational status: disabled current occupation: works part-time at [employer] How many Children do You have: 4 Other Information That Helps Us Care for You: No other: 4 children Feels Safe at Home: Yes Safety Concerns: Feels Safe At This Time Childhood Exposure to Second-Hand Smoke: No Diet Comment: regular caffeine: Yes during the past year weight has: remained stable Dental Care, Regularly: Yes Physical Activity Frequency: Does not Exercise Physical Activity Frequency Comment: limited due physical condition Seatbelt Use: sometimes Sunscreen Use: No Assistive Devices: Oxygen - Continuous Physical Exam Constitutional: + ill appearing; not in distress Eyes: PERRL, conjunctivae normal, anicteric sclerae ENMT: external ear and nose normal, oropharynx normal Neck: trachea midline, no thyromegaly Respiratory: normal respiratory effort, lungs clear to auscultation Cardiovascular: Rate/Rhythm: + irregularly irregular Heart Sounds: no cardiac rub Extremities: + AV fistula (+ bruit) Gastrointestinal (Abdomen): normal bowel sounds, soft, nontender, no hepatosplenomegaly Musculoskeletal: Extremities: no cyanosis Skin: no rashes, warm and dry Neurologic: awake; not confused Results & Data ([facility]) Vital Signs (Past 12 Hours) Vital Signs Temp Pulse Pulse Resp BP BP BP 08/16/20 08:00 101 H 08/16/20 07:35 36.4 C L 18 129/86 08/16/20 02:15 36.5 C 87 18 155/72 H 08/16/20 01:50 91 H 18 153/70 H 08/16/20 01:45 97 H 14 08/16/20 01:31 89 15 08/16/20 01:30 102 H 16 153/70 H 08/16/20 01:15 84 15 08/16/20 01:00 90 15 08/16/20 00:45 89 15 08/16/20 00:31 90 15 08/16/20 00:30 95 H 15 137/73 08/16/20 00:15 84 15 08/16/20 00:06 81 14 08/16/20 00:05 88 14 132/77 08/16/20 00:00 84 14 08/15/20 23:45 87 14 03/15/21 23:30 85 14 08/15/20 23:15 85 17 08/15/20 23:01 86 17 08/15/20 23:00 86 15 140/73 08/15/20 22:54 08/15/20 22:45 90 17 08/15/20 22:31 99 H 17 08/15/20 22:30 86 13 140/70 Pulse Ox 08/16/20 08:00 08/16/20 07:35 96 08/16/20 02:15 98 08/16/20 01:50 97 08/16/20 01:45 08/16/20 01:31 98 08/16/20 01:30 97 08/16/20 01:15 08/16/20 01:00 08/16/20 00:45 96 08/16/20 00:31 97 08/16/20 00:30 97 08/16/20 00:15 97 08/16/20 00:06 97 08/16/20 00:05 97 08/16/20 00:00 97 08/15/20 23:45 97 08/15/20 23:30 98 08/15/20 23:15 08/15/20 23:01 99 08/15/20 23:00 98 08/15/20 22:54 99 08/15/20 22:45 08/15/20 22:31 100 08/15/20 22:30 99 Laboratory Tests 08/16/20 08/16/20 07:49 07:49 WBC 3.05 L Hgb 7.3 L Hct 23.5 L Plt Count 108 L Sodium 139 Potassium 5.3 H Chloride 103 Carbon Dioxide 25 BUN 129 H Creatinine 16.10 H* D Glucose 170 H Calcium 10.0 Magnesium 2.2 PG Care Time/CCT Total # of Minutes Spent Total Time Spent with Patient: Total time spent is greater than 50% in coordination of care (as documented) at patient's floor/unit and/or counseling patient: Coding Level of Care Code 30626 Inpt Consult Level 5 Diagnoses End stage renal disease N18.6 Anemia N18.6; D63.1; Z99.2 Anemia type: due to chronic kidney disease Chronic kidney disease stage: on chronic dialysis Medically noncompliant Z91.19 (1) Anemia Anemia type: due to chronic kidney disease Chronic kidney disease stage: on chronic dialysis Qualified Code(s): N18.6 - End stage renal disease; D63.1 - Anemia in chronic kidney disease; Z99.2 - Dependence on renal dialysis
[2020-08-16] MEDS: HEPARIN SOD (PORCINE) 1000 UNIT/ML IV SCH (12:14)
[2020-08-16] MEDS: DOXAZOSIN MESYLATE 1 MG TAB PO SCH (15:04)
[2020-08-16] MEDS: NEPHROCAPS PO SCH (15:05)
[2020-08-16] MEDS: FOLIC ACID 1 MG TAB PO SCH (15:05)
--- NOTE | 2020-08-16 19:02 | Communication Note ---
Date of Service: August 16, 2020 Patient seen in follow-up from planning associate admission. Feeling okay, awaiting dialysis. Notes that he missed dialysis mostly just from feeling tired. We had a maciej discussion about the implications of missing dialysisand how even if it is inconvenient or a little bit difficult, it is definitely less inconvenient to go to dialysis then to end up admitted to the hospital every couple weeks. Further both Dr. Echeverria and myself discussed that his CHF/shortness of breath really directly relates to missing dialysis, to which he expressed surprise. To illustrate my point, I put paper towels in the drain of his sink and turned on the faucet trying to give him the visual analogy of his body/his lungs when he misses dialysis. There does not seem to be any significant barriers to getting to dialysis that he has discussed, or that have been unearthed, rather he mostly seems to miss for reasons such as feeling tired. Further we discussed that if he is tired of being a chronically ill patient, it would be reasonable given his comorbidities to move to more of a hospice role, but he does not seem to show any interest in this. Acute on chronic diastolic CHF related to volume overload in the setting of chronically/repeatedly missing hemodialysisdialysis, home once doing better.
--- NOTE | 2020-08-16 19:22 | Billing Data ---
Date of Service August 16, 2020 Coding Level of Care Code 60888 Initial Inpt Care Lvl 3
[2020-08-16] MEDS ORDERED: ROSUVASTATIN CALCIUM 20 MG TAB PO SCH (21:00)
[2020-08-16] MEDS ORDERED: GABAPENTIN 100 MG CAP PO SCH (21:00)
[2020-08-16] MEDS ORDERED: amLODIPine BESYLATE 5 MG TAB PO SCH (21:00)
--- NOTE | 2020-08-17 05:43 | Electrocardiogram Report ---
Test Reason : Blood Pressure : / mmHG Vent. Rate : 091 BPM Atrial Rate : 068 BPM P-R Int : 000 ms QRS Dur : 160 ms QT Int : 436 ms P-R-T Axes : 000 107 -79 degrees QTc Int : 536 ms Atrial fibrillation Right bundle branch block T wave abnormality, consider inferolateral ischemia Abnormal ECG When compared with ECG of 03-AUG-2020 08:17, No significant change was found Confirmed by Martin Daugherty ([id number]) on 08/17/2020 5:42:51 AM Referred By: REFERRED SELF Confirmed By:Martin Daugherty
[2020-08-17] MEDS: LEVOTHYROXINE SODIUM 200 MCG TABLET PO SCH (07:47)
[2020-08-17] MEDS: hydrALAZINE TAB 50 MG TAB PO SCH ×2 (07:48→11:13)
[2020-08-17] MEDS: LEVOTHYROXINE SODIUM 150 MCG TABLET PO SCH (07:49)
[2020-08-17] MEDS: FUROSEMIDE 40 MG TAB PO SCH (08:03)
[2020-08-17] MEDS: LACTULOSE SYRUP 20 GM/30 ML UDC PO SCH (08:03)
[2020-08-17] MEDS: PANTOprazole 40 MG TAB PO SCH (08:04)
[2020-08-17] MEDS: DOCUSATE SODIUM 100 MG CAP PO SCH (08:04)
[2020-08-17] MEDS: BUMETANIDE 1 MG TAB PO SCH (08:05)
[2020-08-17] MEDS: LABETALOL HCL 200 MG TAB PO SCH (08:05)
[2020-08-17] MEDS: FERROUS SULFATE 325 MG TAB PO SCH (08:05)
[2020-08-17] MEDS: ISOSORBIDE MONO EXTENDED REL 30 MG TABCR PO SCH (08:05)
[2020-08-17 08:11] LABS: Hematocrit (blood only) 26.2 % (42-52); Hemoglobin 8.5 g/dL (14.0-18.0); Mean Corpuscular Hemoglobin 29.9 pg (25-34); Mean Corpuscular Hgb Conc 32.4 g/dL (32-36); Mean Corpuscular Volume 92.3 fL (80-100); Mean Platelet Volume 11.2 fL (7.4-10.4); Platelet Count 101 K/uL (130-400); RDW Coefficient of Variation 16.2 % (11.5-14.5); RDW Standard Deviation 54.8 fL (36.4-46.3); Red Blood Count 2.84 M/uL (4.7-6.1); White Blood Count 2.97 K/uL (4.8-10.8)
[2020-08-17 09:02] LABS: BUN Creatinine Ratio 6.4 (10-20); Calcium 8.7 mg/dl (8.5-10.1); Creatinine Clr Calc Pharmacy 7.9 ml/min; Est GFR (African American) 5.3; Est GFR (Non-African American) 4.6; Potassium 4.1 mmol/L (3.5-5.1)
--- NOTE | 2020-08-17 09:33 | Nephrology Progress Note ---
Date of Service August 17, 2020 Assessment & Plan (1) End stage renal disease: * No acute indication for HD today. Will plan next HD for AM if patient remains hospitalized * If discharge is anticipated, please have patient resume his regular TTS schedule at [facility] * Discussed the importance of adhering to the prescribed 3x/week outpatient dialysis treatments. Reviewed potential complications of missed treatments including poor QOL, repeated hospitalization, ICU care and potentially w/ patient today. He voiced understanding and indicated that he will attend his treatments (2) Anemia: * Hgb improved from 7.3 to 8.5 following 2 U PRBC yesterday * No overt bleeding overnight Admission and Anticipated Discharge Date Admission Date: August 16, 2020 Subjective Mr. Mcintyre was seen & evaluated in his hospital room this morning. He was up getting dressed and indicated that he would like to go home today. Mr. Mcintyre was dialyzed yesterday for 3.5L UF. 2 U PRBC were administered during treatment. He currently denies overt blood loss, dyspnea, angina or uremic symptoms Review of Systems Constitutional: no fever and no weakness Eyes: no problem reported Ear, Nose, Mouth, Throat: no problem reported Respiratory: no cough and no dyspnea Cardiovascular: no chest pain, no palpitations and no edema Gastrointestinal: no abdominal pain, no nausea and no diarrhea/loose stools Musculoskeletal: no back pain Integumentary: no rash Neurologic: no dizziness and no confusion Physical Exam Constitutional: not in distress Eyes: PERRL, conjunctivae normal, anicteric sclerae ENMT: external ear and nose normal, oropharynx normal Neck: trachea midline, no thyromegaly Respiratory: normal respiratory effort, lungs clear to auscultation Cardiovascular: Rate/Rhythm: + irregularly irregular Heart Sounds: no cardiac rub Extremities: + AV fistula (+ bruit) Gastrointestinal (Abdomen): normal bowel sounds, soft, nontender, no hepatosplenomegaly Musculoskeletal: Extremities: no cyanosis Skin: no rashes, warm and dry Neurologic: awake; not confused Results & Data ([facility]) Vital Signs (Past 12 Hours) Vital Signs Temp Pulse Pulse Pulse Resp BP Pulse Ox 08/17/20 07:35 93 H 08/17/20 07:23 37.1 C 94 H 16 118/62 94 08/17/20 01:02 92 H 08/16/20 22:36 36.8 C 99 H 19 149/69 H 95 Laboratory Tests 08/17/20 07:53 WBC 2.97 L Hgb 8.5 L Hct 26.2 L Plt Count 101 L Laboratory Tests 08/17/20 07:53 Sodium 139 Potassium 4.1 D Chloride 104 Carbon Dioxide 27 BUN 62 H D Creatinine 9.72 H* D Glucose 115 H Calcium 8.7 Phosphorus 4.0 PG Care Time/CCT Total # of Minutes Spent Total Time Spent with Patient: Total time spent is greater than 50% in coordination of care (as documented) at patient's floor/unit and/or counseling patient: Coding Level of Care Code 58094 Subseq Hosp Care Lvl 3 Diagnoses End stage renal disease N18.6 Anemia N18.6; D63.1; Z99.2 Anemia type: due to chronic kidney disease Chronic kidney disease stage: on chronic dialysis (1) Anemia Anemia type: due to chronic kidney disease Chronic kidney disease stage: on chronic dialysis Qualified Code(s): N18.6 - End stage renal disease; D63.1 - Anemia in chronic kidney disease; Z99.2 - Dependence on renal dialysis
[2020-08-17] MEDS: NEPHROCAPS PO SCH (11:12)
[2020-08-17] MEDS: FOLIC ACID 1 MG TAB PO SCH (11:12)
[2020-08-17] MEDS: DOXAZOSIN MESYLATE 1 MG TAB PO SCH (11:13)
--- NOTE | 2020-08-17 17:11 | Discharge Summary ---
Date of Service August 17, 2020 Admission HPI Per Admitting Provider Darnell Mcintyre is a 80-year-old male with past medical history significant for end-stage renal disease requiring hemodialysis, chronic blood loss anemia, GERD, diabetes, vitamin D deficiency, GAVE, hypertension, hypothyroidism, peripheral vascular disease; presented to the emergency department for volume overload, shortness of breath in the setting of end-stage renal disease. Was recently in hospital approximately 2 weeks ago, during that time he received dialysis, subsequently discharged did not attend dialysis appointments last week, as he felt too tired to attend. Denies loss of consciousness, headaches, fevers, chills, sweats, chest pain, nausea, vomiting, abdominal pain, bright red blood per rectum, melena. Principal Diagnosis ESRD, voluntarily missing HD Discharge Data Allergies Allergy/AdvReac Type Severity Reaction Status Date / Time sucralfate [From Carafate] Allergy Mild upset Verified 08/15/20 22:26 dialysis tramadol AdvReac Severe disorented Verified 08/15/20 22:26 ,falling down lorazepam [From Ativan] AdvReac Intermediate unresponsive, Verified 08/15/20 22:26 confusion metformin AdvReac Intermediate CONFUSION Verified 08/15/20 22:26 Consultations 08/16/20 00:09 ED Decision to Admit Stat 08/16/20 02:15 Consult Nephrology Routine Hospital Course (1) ESRD needing dialysis: missed HD - does not appear to have been due to medical or social circumstances - just not wanting to go or feeling too tired to go ---->had acute on chronic diastolic chf/pulmonary edema from this, also hyper kalemia, and malaise. ---> improved after HD. discussed dire need to not miss HD - discussed frankly if he did not want to continue to go through this, that with his disease burden a hospice/palliative approach would be reasonable but that was not in line with what he discussed - more that he just didn't realize what missing HD would mean. Dr Busby and myself both emphasized in different and complimentary ways what missing HD would mean - essentially CHF, uremia/malaise, and potentially lethal electrolyte disturbances (2) Acute hyperkalemia: improved after HD (3) Elevated troponin: from ESRD/not having HD (4) SOB (shortness of breath): from acute on chronic diastolic CHF / really more just volume overload from missing HD (5) Anemia: transfused at HD (6) Mild cognitive impairment: Total Time Total Time Spent Total Time Spent (In Minutes): <30 Discharge Plan Discharge Items Patient Disposition: Home - Self-Care Reason For Visit: ESRD, ACUTE HYPERKALEMIA Discharge Diagnosis: pulmonary edema, high potassium related to skipping dialysis Activity: Resume your previous activity Non-emergency contact: Primary Care Provider and Supervisor [employer] Call non-emergency contact if: you have any medication questions and your symptoms worsen Follow-up/Referrals: Mahsa Wang, [Primary Care Provider] - Diet: Dialysis Renal Addtl Attending Provider Instructions: as we discussed, [id number] is pretty straightforward here your kidneys do not work because your kidneys do not work, you need dialysis to remove metabolic garbage (toxins) and to help you remove extra fluid -metabolic garbage will make you feel lousy - usually in restless malaise, sometimes with shakiness and nausea. while you don't feel high potassium, elevated potassium is also part of the metabolic garbage that builds up when you skip dialysis - and once potassium levels get too high (above 6 is usually where problems start, but with your background it's worrisome that you could start to have trouble with even more modest elevations) it can quickly lead to what amounts to heart stopping rhythm problems -fluid buildup usually leads to fluid building up in your lungs - which first can be a restlessness when you try to lay down (because the fluid will settle even more in your lungs then) followed by a shortness of breath with exertion, followed by shortness of breath at rest, followed by dying from not getting enough oxygen while dialysis is a pain in the butt, remember that it's even more of a pain in the butt to feel terrible, lousy, restless, and short of breath, and then have to come to the hospital for a day or three to get things back on track. we don't have the "magic wand" to fix your kidneys, and so in this day-and-age, dialysis is the best answer we have. when you skip, you're basically "hitting yourself in the head and wondering why you have a headache" Pending Studies at Discharge: No Stand-Alone Forms: My [facility], Smoking Cessation Medications and DC Order Prescriptions: Continued calcium acetate(phosphat bind) 667 mg tablet 2,001 mg PO TIDM RF: 0 gabapentin 100 mg capsule 200 mg PO HS Qty: 180 RF: 1 bumetanide 1 mg tablet 2 mg PO BID Qty: 120 RF: 5 folic acid 1 mg tablet 1 mg PO QDL Qty: 90 RF: 1 ferrous sulfate 325 mg (65 mg iron) tablet,delayed release (DR/EC) 325 mg PO BID Qty: 60 RF: 5 hydralazine 50 mg tablet 50 mg PO TIDM Qty: 90 RF: 3 levothyroxine 200 mcg tablet 200 mcg PO QAM Qty: 90 RF: 3 rosuvastatin 20 mg tablet 20 mg PO QPM Qty: 90 RF: 1 labetalol 200 mg tablet 200 mg PO BID Qty: 180 RF: 1 amlodipine 10 mg tablet 10 mg PO HS Qty: 90 RF: 1 isosorbide mononitrate 30 mg tablet extended release 24 hr 30 mg PO QAM Qty: 90 RF: 1 pantoprazole 40 mg tablet,delayed release (DR/EC) 40 mg PO BID Qty: 60 RF: 3 docusate sodium 100 mg capsule 200 mg PO QAM Qty: 30 RF: 0 furosemide 80 mg tablet 120 mg PO QAM RF: 0 lactulose 10 gram/15 mL solution 30 ml PO DAILY RF: 0 doxazosin [Cardura] 1 mg tablet 1 mg PO QDL RF: 0 Levemir U-100 Insulin 100 unit/mL solution 15 unit subcut HS RF: 0 insulin aspart U-100 [Novolog U-100 Insulin aspart] 100 unit/mL solution 0 sliding scale dose subcut QID RF: 0 cyanocobalamin (vitamin B-12) [Vitamin B-12] 1,000 mcg Tablet 1,000 mcg PO HS RF: 0 levothyroxine 150 mcg tablet 150 mcg PO QAM RF: 0 Renal Caps 1 mg capsule 1 cap PO DAILY@1200 RF: 0 Discharge Orders: Discharge Order (Routine); Ordered 08/17/20 Ordered By: Kendall Chen Admission Data Admit Date/Time: 08/16/20 01:20 Attending Provider: Kendall Chen Admit Provider: Cassie Adan Primary Care Provider: Mahsa Wang Other Providers: Eugene Busby ; Cassie Adan [facility] Other Interventions: Discharge Summary Assessment (RN) Last Done: 08/17/20 11:48 Coding Level of Care Code D/C Day Management <30 mins Diagnoses ESRD needing dialysis N18.6; Z99.2 Acute hyperkalemia E87.5 Elevated troponin R77.8 SOB (shortness of breath) R06.02 Anemia N18.6; D63.1; Z99.2 Anemia type: due to chronic kidney disease Chronic kidney disease stage: on chronic dialysis Mild cognitive impairment G31.84
== END 2020-08-17 12:10 | disposition home health service (06) | DRG 291 ==
LOC: ED 22:03 → 2S 08-16 01:20 → SUATTDRO 08-16 01:20 → 2S 08-16 01:50

== ENCOUNTER 2020-09-01 05:08 | Inpatient (IN) ==
[2020-09-01] MEDS ORDERED: PANTOprazole 80 MG in DEXTROSE 5% 100 ML IV STA (06:06)
--- NOTE | 2020-09-01 06:09 | Emergency Department Note ---
Impression & Plan Acute lower GI bleeding, ESRD on dialysis, Anemia ED Provider Note Name: KRIS MCINTYRE Age: 80 Sex: M Arrives Via: Ambulance Informant: Patient, EMS ED Provider: Sarath Schaeffer MD Chief Complaint: Blood in stool Impression: Acute Lower GI Bleeding ESRD on Dialysis Anemia Medical Decision Makin yr old male with extensive PMH with frequent ED visits and hospitalizations arrives noting blood in stool when having BM this morning. Admits some blood the last few days but worse tonight. Has afib but is not on blood thinners given severe bleeding history and several episodes requiring blood transfusions. He actually appears well in no distress other than he was sneezing on arrival which he attributed to ambulance ride. Rectal exam however reveals significant amount of grossly bloody dark stool within rectal vault. No bleeding hemorrhoid appreciated. Abdominal exam benign and hemodynamically stable. Labs with chronic anemia. Patient given IV protonix and will be brought in for further management. Prior Medical Record and Triage/Nursing Notes reviewed by Me Additional history obtained from chart Differentials:Diverticulosis, AVM, coagulopathy, colitis, inflammatory bowel disease, malignancy, Caroline-Grande tear, esophagitis, peptic ulcer disease, variceal bleed, gastritis, epistaxis, fissure, hemorrhoids, as well as other pathologies. Vital Signs: reviewed and remarkable for no significant abnormalities Interventions: saline lock, pronotix iv Labs:Reviewed and remarkable for anemia, chronic renal failure Consults:Dr Justo SHETTY Hospitalist Plan: Disposition:Hospitalization. Condition: Good History of Present Illness:80 yr old male with extensive PMH arrives for evaluation of blood in stool. Patient notes he has been feeling well the last few days though noted some blood in his still. This morning noted large amount of blood in toilet when he had BM. Notes history of hemorrhoids which he initially thought this was but this was a lot more blood than previous. Does not take blood thinners. Has had transfusions due to anemia. He denies abodminal pain, fevers, chills, nausea, vomiting, other bleeding, cp, sob, syncope, leg swelling nor other symptoms. 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 Nothing makes better nor worse. ROS: See above HPI for pertinent positives & negatives. A total of 10 systems reviewed and were otherwise negative. Past Medical History:See Below Past Surgical History:See Below Family History:See Below Social History:See Below Home Medications:See Below Allergies:See Below Vitals:Blood Pressure: 146/79, Pulse 75, RR 16, T 36.7C, O2 98% on 2l NC Physical Exam: GENERAL: Patient is chronically unwell appearing and in minimal distress. EYES: No scleral icterus, unremarkable pupils. ENT: Mucous membranes moist, no nasal congestion. NECK: No masses appreciated, nomeningismus, trachea is midline. RESPIRATORY: No dyspnea. Clear to auscultation and equal bilaterally. No wheeze, no rhonchi. CARDIOVASCULAR: Irregular.No murmurs, rubs, gallops appreciated. GASTROINTESTINAL: Abdomen soft, non-tender, no peritonitis.Bowel sounds positive.No masses appreciated. Rectal: Dark bloody stool in rectal vault no bleeding hemorrhoids appreciated BACK: No midline tenderness, no CVA tenderness EXTREMITIES: lef tarm fistular. bruising bilateral arm, Normal motion all extremities, no cyanosis, mild edema bilateral lower legs NEUROLOGIC: Alert and oriented, no acute motor or sensory deficits, no focal weakness, cranial nerves grossly intact. SKIN: No rash, no jaundice, no diaphoresis. PSYCH: Appropriate GCS: 15 ED Course: Times/Reassessments: stable, no distress Sarath Schaeffer MD Past Med/Surg History Medical History Acute hyperkalemia Anemia of renal disease Anxiety and depression Arthritis Asthma AVF (arteriovenous fistula) LEFT ARM BPH (benign prostatic hyperplasia) CAD (coronary artery disease) Chronic blood loss anemia Chronic diastolic congestive heart failure Colon, diverticulosis 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, with long-term current use of insulin COPD (chronic obstructive pulmonary disease) Diabetes mellitus, type 2 Diabetic peripheral neuropathy Dialysis patient [facility] SATURDAY, SATURDAY, SATURDAY GAVE (gastric antral vascular ectasia) GERD (gastroesophageal reflux disease) GI bleed Hearing difficulty Hyperlipidemia LDL goal <70 Hypertension Hypnic jerks Hypothyroidism IgG monoclonal gammopathy Memory loss Mild cognitive impairment Mitral regurgitation Obstructive sleep apnea uses oxygen 2 l nc at hs Occlusion and stenosis of unspecified carotid artery On home oxygen therapy WEARS O2 AT 2L HS Osteoporosis Pulmonary hypertension Secondary hyperparathyroidism of renal origin SOB (shortness of breath) Vitamin D deficiency Surgical History H/O cardiac catheterization many years ago - over 10 years no stents follow with trung (NO STENTS) H/O hemorrhoidectomy History of colonoscopy History of esophagogastroduodenoscopy (EGD) MULTIPLE History of tooth extraction Hx of cholecystectomy Family History Unknown Myocardial infarction Mother Diabetes Breast cancer late 70s Hypertension Gallbladder disease Father Diabetes Hypertension Brother Diabetes Kidney disease Hypertension Denies family history of Ovarian cancer Prostate cancer Lung cancer Colorectal cancer Social History Smoking Status: Former smoker Tobacco Type: Cigarettes packs per day: 0.5; Years Smoked: 5; Number of Years Since Quit: 20; Second Hand Exposure: No; Hx Alcohol Use: No Hx Substance Use: No Preferred Language: Yi Communication Ability: Effective Communication Ability Comment: Hard of hearing Visual Impairment: No Limitations Hearing Ability: Hard of Hearing Radiochemical Technician Required: No Beliefs That Will Affect Care: None marital status: Current Living Situation: Spouse Current Living Situation Comment: Lives w/ , Isabel Mcintyre current occupational status: disabled current occupation: works part-time at [employer] How many Children do You have: 4 Other Information That Helps Us Care for You: No other: 4 children Feels Safe at Home: Yes Safety Concerns: Feels Safe At This Time Childhood Exposure to Second-Hand Smoke: No Diet Comment: regular caffeine: Yes during the past year weight has: remained stable Dental Care, Regularly: Yes Physical Activity Frequency: Does not Exercise Physical Activity Frequency Comment: limited due physical condition Seatbelt Use: sometimes Sunscreen Use: No Assistive Devices: Glasses Allergies Allergies Allergy/AdvReac Type Severity Reaction Status Date / Time sucralfate [From Carafate] Allergy Mild upset Verified 09/01/20 05:49 dialysis tramadol AdvReac Severe disorented Verified 09/01/20 05:49 ,falling down lorazepam [From Ativan] AdvReac Intermediate unresponsive, Verified 09/01/20 05:49 confusion metformin AdvReac Intermediate CONFUSION Verified 09/01/20 05:49 Home Meds Home Medications Medication Instructions Recorded Confirmed calcium acetate(phosphat bind) 667 2,001 mg PO TIDM tab 06/02/19 09/01/20 mg tablet insulin aspart U-100 [Novolog 0 sliding scale dose SUBCUT QID 06/06/19 09/01/20 U-100 Insulin aspart] cyanocobalamin (vitamin B-12) 1,000 mcg PO HS 08/14/19 09/01/20 [Vitamin B-12] Renal Caps 1 cap PO QDL 05/20/20 09/01/20 levothyroxine 150 mcg PO QAM 05/20/20 09/01/20 furosemide 120 mg PO QAM 06/22/20 09/01/20 lactulose 30 ml PO DAILY 06/22/20 09/01/20 Levemir U-100 Insulin 15 unit SUBCUT HS 06/29/20 09/01/20 doxazosin [Cardura] 1 mg PO QDL 06/29/20 09/01/20 Previous Rx's Medication Instructions Recorded docusate sodium 100 mg capsule 200 mg PO QAM #30 cap 01/19/19 gabapentin 100 mg capsule 200 mg PO HS #180 cap 11/25/19 folic acid 1 mg tablet 1 mg PO QDL #90 tab 04/21/20 ferrous sulfate 325 mg (65 mg 325 mg PO BID #60 tab 05/11/20 iron) tablet,delayed release hydralazine 50 mg tablet 50 mg PO TIDM #90 tab 05/11/20 levothyroxine 200 mcg tablet 200 mcg PO QAM #90 tab 05/11/20 rosuvastatin 20 mg tablet 20 mg PO QPM #90 tab 05/17/20 labetalol 200 mg tablet 200 mg PO BID #180 tab 05/30/20 amlodipine 10 mg tablet 10 mg PO HS #90 tab 06/15/20 isosorbide mononitrate 30 mg 30 mg PO QAM #90 tab 07/22/20 tablet,extended release 24 hr pantoprazole 40 mg tablet,delayed 40 mg PO BID #60 tab 08/31/20 release bumetanide 1 mg tablet 2 mg PO BID #120 tab 09/01/20 Results & Data (ED) Vital Signs Vital Signs - 24 hr 09/01/20 05:17 09/01/20 05:31 09/01/20 06:00 Temperature 36.7 C Temperature Source Oral Pulse Rate 81 81 74 Pulse Rate [Apical] Pulse Rate from SpO2 Sensor 81 76 Pulse Rhythm [Apical] Respiratory Rate 18 20 18 Blood Pressure 129/71 145/73 H 150/84 H Blood Pressure [Right Arm] Blood Pressure Mean 90 97 106 Blood Pressure Mean [Right Arm] Pulse Oximetry 96 95 94 Oxygen Delivery Method Nasal Cannula Nasal Cannula Nasal Cannula Oxygen Flow Rate 2 2 2 Sepsis Recent Fever Within 48 Hours No Sepsis New/Unexplained Change in Mental Status N/A Sepsis Action Taken by Nursing No Action Required 09/01/20 06:30 09/01/20 07:10 09/01/20 08:37 Temperature Temperature Source Pulse Rate 80 Pulse Rate [Apical] 75 71 Pulse Rate from SpO2 Sensor Pulse Rhythm [Apical] Irregular Respiratory Rate 16 16 16 Blood Pressure 165/74 H Blood Pressure [Right Arm] 146/79 H 152/72 H Blood Pressure Mean 104 Blood Pressure Mean [Right Arm] 101 98 Pulse Oximetry 98 98 Oxygen Delivery Method Nasal Cannula Nasal Cannula Oxygen Flow Rate 2 2 Sepsis Recent Fever Within 48 Hours Sepsis New/Unexplained Change in Mental Status Sepsis Action Taken by Nursing Laboratory Data Result diagrams: 09/01/20 19:38 09/01/20 06:12 Lab Results 09/01/20 09/01/20 09/01/20 Range/Units 06:12 06:12 06:12 WBC 4.53 L (4.8-10.8) K/uL RBC 2.97 L (4.7-6.1) M/uL Hgb 8.7 L (14.0-18.0) g/dL Hct 27.9 L (42-52) % MCV 93.9 (80-100) fL MCH 29.3 (25-34) pg MCHC 31.2 L (32-36) g/dL RDW Std Deviation 55.8 H (36.4-46.3) fL RDW Coeff of Jose C 16.7 H (11.5-14.5) % Plt Count 173 (130-400) K/uL MPV 11.2 H (7.4-10.4) fL Immature Gran % (Auto) 0.2 % Neut % (Auto) 73.1 % Lymph % (Auto) 12.4 % [place] % (Auto) 8.2 % Eos % (Auto) 5.7 % Baso % (Auto) 0.4 % Neut # (Auto) 3.31 (1.4-6.5) K/uL Lymph # (Auto) 0.56 L (1.2-3.4) K/uL [place] # (Auto) 0.37 (0.11-0.59) K/uL Eos # (Auto) 0.26 (0-0.5) K/uL Baso # (Auto) 0.02 (0-0.2) K/uL Immature Gran # (Auto) 0.01 (0.00-0.02) K/uL PT 11.5 (9.0-12.0) Seconds INR 1.1 (0.9-1.1) APTT 26.2 (21.0-31.0) Seconds PTT Ratio 1.0 Sodium 139 (136-145) mmol/L Potassium 3.9 (3.5-5.1) mmol/L Chloride 101 (98-107) mmol/L Carbon Dioxide 31 (21-32) mmol/L Anion Gap 7.0 (3-11) BUN 68 H (7-18) mg/dl Creatinine 8.59 H* (0.6-1.4) mg/dl Est Cr Clr Drug Dosing 8.8 ml/min Est GFR ( Amer) 6.2 Est GFR (Non-Af Amer) 5.3 BUN/Creatinine Ratio 8.0 L (10-20) Glucose 172 H (70-99) mg/dl Calcium 9.9 (8.5-10.1) mg/dl Magnesium 2.2 (1.8-2.4) mg/dl Total Bilirubin 0.5 (0.2-1) mg/dl Direct Bilirubin 0.2 (0-0.2) mg/dl AST 11 L (15-37) U/L ALT 19 (12-78) U/L Alkaline Phosphatase 107 (45-117) U/L Total Protein 7.3 (6.4-8.2) gm/dl Albumin 3.6 (3.4-5.0) gm/dl Lipase 197 (73-393) U/L COVID-19 Eval Order SARS-CoV-2 (PCR) (Negative) Influenza Type A (PCR) (Neg) Influenza Type B (PCR) (Neg) RSV (RT-PCR) (Neg) Blood Type Antibody Screen 09/01/20 09/01/20 09/01/20 Range/Units 06:13 06:13 06:15 WBC (4.8-10.8) K/uL RBC (4.7-6.1) M/uL Hgb (14.0-18.0) g/dL Hct (42-52) % MCV (80-100) fL MCH (25-34) pg MCHC (32-36) g/dL RDW Std Deviation (36.4-46.3) fL RDW Coeff of Jose C (11.5-14.5) % Plt Count (130-400) K/uL MPV (7.4-10.4) fL Immature Gran % (Auto) % Neut % (Auto) % Lymph % (Auto) % Med[place] % (Auto) % Eos % (Auto) % Baso % (Auto) % Neut # (Auto) (1.4-6.5) K/uL Lymph # (Auto) (1.2-3.4) K/uL [place] # (Auto) (0.11-0.59) K/uL Eos # (Auto) (0-0.5) K/uL Baso # (Auto) (0-0.2) K/uL Immature Gran # (Auto) (0.00-0.02) K/uL PT (9.0-12.0) Seconds INR (0.9-1.1) APTT (21.0-31.0) Seconds PTT Ratio Sodium (136-145) mmol/L Potassium (3.5-5.1) mmol/L Chloride (98-107) mmol/L Carbon Dioxide (21-32) mmol/L Anion Gap (3-11) BUN (7-18) mg/dl Creatinine (0.6-1.4) mg/dl Est Cr Clr Drug Dosing ml/min Est GFR ( Amer) Est GFR (Non-Af Amer) BUN/Creatinine Ratio (10-20) Glucose (70-99) mg/dl Calcium (8.5-10.1) mg/dl Magnesium (1.8-2.4) mg/dl Total Bilirubin (0.2-1) mg/dl Direct Bilirubin (0-0.2) mg/dl AST (15-37) U/L ALT (12-78) U/L Alkaline Phosphatase (45-117) U/L Total Protein (6.4-8.2) gm/dl Albumin (3.4-5.0) gm/dl Lipase (73-393) U/L COVID-19 Eval Order CovFluRsv at [facility] SARS-CoV-2 (PCR) NEGATIVE (Negative) Influenza Type A (PCR) Negative (Neg) Influenza Type B (PCR) Negative (Neg) RSV (RT-PCR) Negative (Neg) Blood Type B Positive Antibody Screen NEGATIVE Administered Medications Amlodipine Besylate (Amlodipine Besylate 5 Mg Tab) 10 mg PO HS [facility]A Stop: 10/01/20 20:59 Last Admin: 09/01/20 20:28 Dose: 10 mg Documented by: [id number] Calcium Acetate (Calcium Acetate 667 Mg Cap/Tab) 2,001 mg PO TIDM [facility] Stop: 10/01/20 11:59 Last Admin: 09/01/20 20:27 Dose: 2,001 mg Documented by: [id number] Admin: 09/01/20 12:58 Dose: 2,001 mg Documented by: [id number] Cyanocobalamin (Cyanocobalamin 500 Mcg Tablet (Vitamin B-12)) 1,000 mcg PO [facility] Stop: 10/01/20 20:59 Last Admin: 09/01/20 20:28 Dose: 1,000 mcg Documented by: [id number] Docusate Sodium (Docusate Sodium 100 Mg Cap) 200 mg PO QAM [facility] Stop: 10/01/20 10:18 Last Admin: 09/01/20 13:00 Dose: 200 mg Documented by: [id number] Doxazosin Mesylate (Doxazosin Mesylate 1 Mg Tab) 1 mg PO QDL [facility] Stop: 10/01/20 11:29 Last Admin: 09/01/20 12:58 Dose: 1 mg Documented by: [id number] Ferrous Sulfate (Ferrous Sulfate 325 Mg Tab) 325 mg PO BID [facility] Stop: 10/01/20 10:18 Last Admin: 09/01/20 20:28 Dose: 325 mg Documented by: [id number] Admin: 09/01/20 12:58 Dose: 325 mg Documented by: [id number] Folic Acid (Folic Acid 1 Mg Tab) 1 mg PO QDL [facility]A Stop: 10/01/20 11:29 Last Admin: 09/01/20 12:59 Dose: 1 mg Documented by: [id number] Furosemide (Furosemide 40 Mg Tab) 120 mg PO QAM [facility] Stop: 10/01/20 10:18 Last Admin: 09/01/20 12:58 Dose: 120 mg Documented by: [id number] Gabapentin (Gabapentin 100 Mg Cap) 200 mg PO HS [facility] Stop: 10/01/20 20:59 Last Admin: 09/01/20 20:27 Dose: 200 mg Documented by: [id number] Hydralazine HCl (Hydralazine Tab 50 Mg Tab) 50 mg PO TIDM [facility] Stop: 10/01/20 11:59 Last Admin: 09/01/20 20:26 Dose: Not Given Documented by: [id number] Admin: 09/01/20 12:58 Dose: 50 mg Documented by: [id number] Insulin Aspart (Insulin Aspart 100 Units/Ml 3 Ml Pen) 0 units SC ACHS [facility] Stop: 10/01/20 11:29 Last Admin: 09/01/20 20:41 Dose: 6 units Documented by: [id number] Cosigned by: [id number] Admin: 09/01/20 19:48 Dose: Not Given Documented by: [id number] Cosigned by: [id number] Admin: 09/01/20 12:41 Dose: Not Given Documented by: [id number] Insulin Detemir (Insulin Detemir Flexpen/Flex Touch 100 Units/Ml 3ml) 0 units SC [facility]; Protocol Stop: 10/01/20 20:59 Last Admin: 09/01/20 20:40 Dose: 8 units Documented by: [id number] Cosigned by: [id number] Isosorbide Mononitrate (Isosorbide [place] Extended Rel 30 Mg Tabcr) 30 mg PO QAM [facility] Stop: 10/01/20 10:18 Last Admin: 09/01/20 12:59 Dose: 30 mg Documented by: [id number] Labetalol HCl (Labetalol Hcl 200 Mg Tab) 200 mg PO BID [facility] Stop: 10/01/20 10:18 Last Admin: 09/01/20 20:28 Dose: 200 mg Documented by: [id number] Admin: 09/01/20 12:59 Dose: 200 mg Documented by: [id number] Levothyroxine Sodium (Levothyroxine Sodium 150 Mcg Tablet) 150 mcg PO DAILYBB [facility] Stop: 10/01/20 10:18 Last Admin: 09/01/20 12:59 Dose: 150 mcg Documented by: [id number] Levothyroxine Sodium (Levothyroxine Sodium 200 Mcg Tablet) 200 mcg PO DAILYBB [facility] Stop: 10/01/20 10:18 Last Admin: 09/01/20 12:59 Dose: 200 mcg Documented by: [id number] Pantoprazole Sodium (Pantoprazole 40 Mg Tab) 40 mg PO BID [facility] Stop: 10/01/20 10:18 Last Admin: 09/01/20 20:28 Dose: 40 mg Documented by: [id number] Admin: 09/01/20 12:58 Dose: 40 mg Documented by: [id number] Rosuvastatin Calcium (Rosuvastatin Calcium 20 Mg Tab) 20 mg PO QPM [facility] Stop: 10/01/20 20:59 Last Admin: 09/01/20 20:28 Dose: 20 mg Documented by: [id number] Vitamin B Complex/Folic Acid (Nephrocaps) 1 cap PO QDL [facility] Stop: 10/01/20 11:29 Last Admin: 09/01/20 12:59 Dose: 1 cap Documented by: [id number] Discontinued Medications Bumetanide (Bumetanide 1 Mg Tab) 2 mg PO BID [facility] Stop: 10/01/20 10:18 Last Admin: 09/01/20 12:33 Dose: Not Given Documented by: [id number] Pantoprazole Sodium 80 mg/ (Dextrose) 100 mls @ 400 mls/hr IV ONE STA Stop: 09/01/20 06:20 Last Infusion: 09/01/20 06:40 Dose: 0 mls/hr Documented by: [id number] Admin: 09/01/20 06:20 Dose: 400 mls/hr Documented by: [id number] Iron Sucrose 100 mg/ Syringe 5 mls @ 1 mls/min IV TODAY [facility] Stop: 09/01/20 11:19 Last Admin: 09/01/20 19:52 Dose: Not Given Documented by: [id number] Discharge Plan Visit Data Chief Complaint: Rectal Bleed Stated Complaint: RECTAL BLEED ED Provider: Sarath Schaeffer Discharge Problem: Acute lower GI bleeding, ESRD on dialysis, Anemia Patient Disposition: Admitted As Inpatient Discharge Instructions Interventions: ED Discharge Assessment Last Done: 09/01/20 10:09 Discharge Problem: Anemia Qualifiers: Anemia type: other cause Other causes of anemia: other cause, not classified Qualified Code(s): D64.89 - Other specified anemias
[2020-09-01 06:28] LABS: Basophils # (auto) 0.02 K/uL (0-0.2); Basophils % (auto) 0.4 %; Eosinophils # (auto) 0.26 K/uL (0-0.5); Eosinophils % (auto) 5.7 %; Hematocrit (blood only) 27.9 % (42-52); Hemoglobin 8.7 g/dL (14.0-18.0); Immature Granulocytes # (auto) 0.01 K/uL (0.00-0.02); Immature Granulocytes % (auto) 0.2 %; Lymphocytes # (auto) 0.56 K/uL (1.2-3.4); Lymphocytes % (auto) 12.4 %; Mean Corpuscular Hemoglobin 29.3 pg (25-34); Mean Corpuscular Hgb Conc 31.2 g/dL (32-36); Mean Corpuscular Volume 93.9 fL (80-100); Mean Platelet Volume 11.2 fL (7.4-10.4); Monocytes # (auto) 0.37 K/uL (0.11-0.59); Monocytes % (auto) 8.2 %; Neutrophils # (auto) 3.31 K/uL (1.4-6.5); Neutrophils % (auto) 73.1 %; Platelet Count 173 K/uL (130-400); RDW Coefficient of Variation 16.7 % (11.5-14.5); RDW Standard Deviation 55.8 fL (36.4-46.3); Red Blood Count 2.97 M/uL (4.7-6.1); White Blood Count 4.53 K/uL (4.8-10.8)
[2020-09-01 06:44] LABS: INR 1.1 (0.9-1.1); Partial Thromboplastin Time 26.2 Seconds (21.0-31.0); Prothrombin Time 11.5 Seconds (9.0-12.0)
[2020-09-01 06:58] LABS: Albumin Level 3.6 gm/dl (3.4-5.0); Bilirubin Direct 0.2 mg/dl (0-0.2); Bilirubin,Total 0.5 mg/dl (0.2-1); Calcium 9.9 mg/dl (8.5-10.1); Creatinine Clr Calc Pharmacy 8.8 ml/min; Est GFR (African American) 6.2; Est GFR (Non-African American) 5.3; Magnesium 2.2 mg/dl (1.8-2.4); Potassium 3.9 mmol/L (3.5-5.1); Total Protein 7.3 gm/dl (6.4-8.2)
[2020-09-01 07:00] LABS: Influenza A virus by PCR Negative (Neg); Influenza B virus by PCR Negative (Neg); RSV by PCR Negative (Neg); SARS CoV2 RNA(COVID-19) InHosp NEGATIVE (Negative)
--- NOTE | 2020-09-01 09:00 | History & Physical Report ---
Date of Service September 01, 2020 Assessment & Plan (1) Acute lower GI bleeding: Patient reports a 2-day history of dark blood with stool Patient has a chronic history of blood in stool but states that this is significantly worse Examination ER by ER physician revealed old blood in rectal vault Patient started on pantoprazole We will hold on GI consult at this time Patient hemodynamically stable Hemoglobin is stable at 8.7 as compared to previous labs Check serial H&H -low threshold for GI consult if hemoglobin and hematocrit drop (2) ESRD on dialysis: Patient scheduled Saturday Nephrology consult placed for dialysis today AV fistula in place (3) Anemia: Chronic secondary to diabetes as well as iron deficiency Hemoglobin 8.7 Follow serial H&H for acute GI bleed Transfuse if hemoglobin drops below 7 or patient has increase in blood with stool Continue ferrous sulfate p.o. (4) New onset a-fib: Continue home dose of labetalol Patient currently not anticoagulated Follow on telemetry (5) Hypothyroidism: Continue levothyroxine Outpatient management (6) GERD (gastroesophageal reflux disease): Continue pantoprazole 40 mg twice daily (7) Diabetes mellitus, type 2: Hemoglobin A1c is 6.4% on 08/02/2020 Continue with Levemir We will also continue sliding scale insulin Glycemic consult with pharmacy requested (8) Hypertension: Continue amlodipine, labetalol, Imdur your, hydralazine, Bumex, furosemide (9) Peripheral vascular disease: Patient is not on any antiplatelet agents or anticoagulants Peripheral pulses all intact and equal to upper and lower extremities Follow clinically (10) Hyperlipidemia LDL goal <70: Continue rosuvastatin (11) Obstructive sleep apnea: Patient apparently uses supplemental oxygen 2 L/min via nasal cannula at home I cannot find any evidence of a polysomnography exam I cannot find any evidence of a sleep visit with sleep medicine physician Continue supplemental O2 at night Recommend outpatient follow-up for polysomnography exam (12) Pulmonary hypertension: Continue supplemental oxygen and diuresis as tolerated (13) CAD (coronary artery disease): Continue current home medications No chest pain or tightness No evidence of ACS Monitor on telemetry (14) BPH (benign prostatic hyperplasia): Patient denies any significant difficulty with micturition Continue doxazosin (15) COPD (chronic obstructive pulmonary disease): Benign exam today No evidence of pulmonary follow-up as an outpatient No pulmonary function testing found Not on any outpatient bronchodilators, anticholinergics, inhaled corticosteroids Oxygenating well on room air Continue to monitor and provide supportive care (16) DVT prophylaxis: Hold chemical prophylaxis at this time secondary to question of GI bleed Continue JOSIE hose and SCDs Ambulate as tolerated with assistance Please refer to Dr. Kemp's addendum for further recommendations and corrections. History of Present Illness Primary Care Provider: Mahsa Wang DO Attending: Dr. Kemp Is a 80-year-old male with a past medical history of end-stage renal disease on hemodialysis, history of GI bleed, history of anemia, hypothyroidism, electrolyte imbalance, atrial fibrillation (not on anticoagulation) mild cognitive impairment, history of non-ST elevated MO 12/21/2019, GERD, diabetes mellitus type 2 on long-term insulin, vitamin D deficiency, home oxygen, osteoporosis, carotid artery stenosis, mitral regurgitation, IgG monoclonal gammopathy, asthma, anxiety and depression, gastric antral vascular ectasia, hypertension, peripheral vascular disease, hiatal hernia, noncompliance, cirrhosis, sarcopenia, placement of aVF, diverticulosis, hyperlipidemia, arthritis, chronic diastolic congestive heart failure, diabetic peripheral neuropathy, hearing difficulty, obstructive sleep apnea, pulmonary hypertension, CAD, BPH, hyperparathyroidism of renal origin, COPD. The patient presents with a 2-day history of GI bleed. He states that his stools have been very dark. He has no lightheadedness or dizziness and his hemoglobin is stable as compared to previous visits. Systolic blood pressure is in the 150s. He has no abdominal pain or back pain. He denies any fever, chills, sweats, rigors. He has no nausea or vomiting. He denies any diarrhea. ER examination did reveal dark stool in the rectal vault. Allergies Allergy/AdvReac Type Severity Reaction Status Date / Time sucralfate [From Carafate] Allergy Mild upset Verified 09/01/20 05:49 dialysis tramadol AdvReac Severe disorented Verified 09/01/20 05:49 ,falling down lorazepam [From Ativan] AdvReac Intermediate unresponsive, Verified 09/01/20 05:49 confusion metformin AdvReac Intermediate CONFUSION Verified 09/01/20 05:49 Home Medications Medication Instructions Recorded Confirmed Type docusate sodium 100 mg capsule 200 mg PO QAM #30 cap 01/19/19 09/01/20 Rx calcium acetate(phosphat bind) 667 2,001 mg PO TIDM tab 06/02/19 09/01/20 History mg tablet insulin aspart U-100 [Novolog 0 sliding scale dose SUBCUT QID 06/06/19 09/01/20 History U-100 Insulin aspart] cyanocobalamin (vitamin B-12) 1,000 mcg PO HS 08/14/19 09/01/20 History [Vitamin B-12] gabapentin 100 mg capsule 200 mg PO HS #180 cap 11/25/19 09/01/20 Rx folic acid 1 mg tablet 1 mg PO QDL #90 tab 04/21/20 09/01/20 Rx ferrous sulfate 325 mg (65 mg 325 mg PO BID #60 tab 05/11/20 09/01/20 Rx iron) tablet,delayed release hydralazine 50 mg tablet 50 mg PO TIDM #90 tab 05/11/20 09/01/20 Rx levothyroxine 200 mcg tablet 200 mcg PO QAM #90 tab 05/11/20 09/01/20 Rx rosuvastatin 20 mg tablet 20 mg PO QPM #90 tab 05/17/20 09/01/20 Rx Renal Caps 1 cap PO QDL 05/20/20 09/01/20 History levothyroxine 150 mcg PO QAM 05/20/20 09/01/20 History labetalol 200 mg tablet 200 mg PO BID #180 tab 05/30/20 09/01/20 Rx amlodipine 10 mg tablet 10 mg PO HS #90 tab 06/15/20 09/01/20 Rx furosemide 120 mg PO QAM 06/22/20 09/01/20 History lactulose 30 ml PO DAILY 06/22/20 09/01/20 History Levemir U-100 Insulin 15 unit SUBCUT HS 06/29/20 09/01/20 History doxazosin [Cardura] 1 mg PO QDL 06/29/20 09/01/20 History isosorbide mononitrate 30 mg 30 mg PO QAM #90 tab 07/22/20 09/01/20 Rx tablet,extended release 24 hr pantoprazole 40 mg tablet,delayed 40 mg PO BID #60 tab 08/31/20 09/01/20 Rx release bumetanide 1 mg tablet 2 mg PO BID #120 tab 09/01/20 Rx Past Med/Surg History Medical History Acute hyperkalemia Anemia of renal disease Anxiety and depression Arthritis Asthma AVF (arteriovenous fistula) LEFT ARM BPH (benign prostatic hyperplasia) CAD (coronary artery disease) Chronic blood loss anemia Chronic diastolic congestive heart failure Colon, diverticulosis 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, with long-term current use of insulin COPD (chronic obstructive pulmonary disease) Diabetes mellitus, type 2 Diabetic peripheral neuropathy Dialysis patient [facility] SATURDAY, SATURDAY, SATURDAY GAVE (gastric antral vascular ectasia) GERD (gastroesophageal reflux disease) GI bleed Hearing difficulty Hyperlipidemia LDL goal <70 Hypertension Hypnic jerks Hypothyroidism IgG monoclonal gammopathy Memory loss Mild cognitive impairment Mitral regurgitation Obstructive sleep apnea uses oxygen 2 l nc at hs Occlusion and stenosis of unspecified carotid artery On home oxygen therapy WEARS O2 AT 2L HS Osteoporosis Pulmonary hypertension Secondary hyperparathyroidism of renal origin SOB (shortness of breath) Vitamin D deficiency Surgical History H/O cardiac catheterization many years ago - over 10 years no stents follow with trung (NO STENTS) H/O hemorrhoidectomy History of colonoscopy History of esophagogastroduodenoscopy (EGD) MULTIPLE History of tooth extraction Hx of cholecystectomy Family History Unknown Myocardial infarction Mother Diabetes Breast cancer late 70s Hypertension Gallbladder disease Father Diabetes Hypertension Brother Diabetes Kidney disease Hypertension Denies family history of Ovarian cancer Prostate cancer Lung cancer Colorectal cancer Social History Smoking Status: Former smoker Tobacco Type: Cigarettes packs per day: 0.5; Years Smoked: 5; Number of Years Since Quit: 20; Second Hand Exposure: No; Hx Alcohol Use: No Hx Substance Use: No Preferred Language: Welsh Communication Ability: Effective Communication Ability Comment: Hard of hearing Visual Impairment: No Limitations Hearing Ability: Hard of Hearing 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 Beliefs That Will Affect Care: None marital status: Current Living Situation: Spouse Current Living Situation Comment: Lives w/ , Isabel Mcintyre current occupational status: disabled current occupation: works part-time at [employer] How many Children do You have: 4 Other Information That Helps Us Care for You: No other: 4 children Feels Safe at Home: Yes Safety Concerns: Feels Safe At This Time Childhood Exposure to Second-Hand Smoke: No Diet Comment: regular caffeine: Yes during the past year weight has: remained stable Dental Care, Regularly: Yes Physical Activity Frequency: Does not Exercise Physical Activity Frequency Comment: limited due physical condition Seatbelt Use: sometimes Sunscreen Use: No Assistive Devices: Glasses Review of Systems Review of Systems: All systems reviewed & are unremarkable except as noted in HPI & below Results & Data Results & Data ([facility]) Vital Signs (Past 12 Hours) Vital Signs Temp Pulse Pulse Resp BP BP Pulse Ox 09/01/20 08:37 71 16 152/72 H 98 09/01/20 07:10 75 16 146/79 H 98 09/01/20 06:30 80 16 165/74 H 09/01/20 06:00 74 18 150/84 H 94 09/01/20 05:31 81 20 145/73 H 95 09/01/20 05:17 36.7 C 81 18 129/71 96 Laboratory Results 09/01/20 06:12 09/01/20 06:12 Diagnostic Findings No diagnostic images acquired Code Status & VTE Plan Code Status Level I: Full resuscitation VTE Prophylaxis Plan VTE Prophylaxis will be ordered: Yes Supervising Physician Co-Signing Physician Notes Patient seen and examined with Shayan LOMBARDO. I agree with his exam findings, review of systems, assessment and plan. I personally reviewed the lab work and imaging as well. patient with rectal bleeding, history of this, Hb is stable at 8.7 needs HD today vitals stable - Rectal bleeding: significant amount of old blood in rectum, Hb stable at 8.7 hold on GI consult for now, monitor for further significant bleeding transfuse if Hb < 7 - ESRD: consult nephrology, HD orders written for today PG Care Time/CCT Total # of Minutes Spent Total Time Spent with Patient: Total time spent is greater than 50% in coordination of care (as documented) at patient's floor/unit and/or counseling patient: 65 Minutes Coding Level of Care Code 26590 Initial Inpt Care Lvl 3 Diagnoses Acute lower GI bleeding K92.2 ESRD on dialysis N18.6; Z99.2 Anemia D64.89 Anemia type: other cause Other causes of anemia: other cause, not classified New onset a-fib I48.91 Hypothyroidism E03.9 GERD (gastroesophageal reflux disease) K21.9 Diabetes mellitus, type 2 E11.22; N18.6; Z79.4; Z99.2 Chronic kidney disease stage: on chronic dialysis Diabetes mellitus complication detail: with chronic kidney disease Diabetes mellitus complication status: with kidney complications Diabetes mellitus detention insulin use: with detention use Hypertension I10 Hypertension type: unspecified Peripheral vascular disease I73.9 Hyperlipidemia LDL goal <70 E78.5 Obstructive sleep apnea G47.33 Pulmonary hypertension I27.20 CAD (coronary artery disease) I25.10 Associated angina: without angina Coronary Disease-Associated Artery/Lesion type: [place] artery [place] vs. transplanted heart: [place] heart BPH (benign prostatic hyperplasia) N40.0 Lower urinary tract symptom presence: unspecified whether lower urinary tract symptoms present COPD (chronic obstructive pulmonary disease) J44.9 COPD type: unspecified COPD DVT prophylaxis Z29.9 Time Spent (min) 65 (1) BPH (benign prostatic hyperplasia) Lower urinary tract symptom presence: unspecified whether lower urinary tract symptoms present Qualified Code(s): N40.0 - Benign prostatic hyperplasia witho ut lower urinary tract symptoms (2) Diabetes mellitus, type 2 Chronic kidney disease stage: on chronic dialysis Diabetes mellitus complication detail: with chronic kidney disease Diabetes mellitus complication status: with kidney complications Diabetes mellitus detention 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 transplanted heart: [place] heart Qualified Code(s): I25.10 - Atherosclerotic heart disease of [place] coronary artery without angina pectoris (4) Anemia Anemia type: other cause Other causes of anemia: other cause, not classified Qualified Code(s): D64.89 - Other specified anemias (5) COPD (chronic obstructive pulmonary disease) COPD type: unspecified COPD Qualified Code(s): J44.9 - Chronic obstructive pulmonary disease, unspecified (6) Hypertension Hypertension type: unspecified Qualified Code(s): I10 - Essential (primary) hypertension
[2020-09-01] MEDS ORDERED: DC ALL PREVIOUSLY ORDERED DIABETES MEDS ONE (10:19)
[2020-09-01] MEDS ORDERED: GLUCAGON FOR INJ 1 MG VIAL SQ PRN (10:19)
[2020-09-01] MEDS ORDERED: POLYETHYLENE (MIRALAX) 17 GM PACK PO PRN (10:19)
[2020-09-01] MEDS ORDERED: DEXTROSE 50% 50 ML SYRINGE IV PRN (10:19)
[2020-09-01] MEDS ORDERED: INSULIN ASPART PER UNIT SQ SCH (10:19)
[2020-09-01] MEDS ORDERED: ACETAMINOPHEN 325 MG TAB PO PRN (10:19)
[2020-09-01] MEDS ORDERED: CARBOHYDRATES FOR HYPOGLYCEMIA PO PRN (10:19)
[2020-09-01] MEDS ORDERED: MAGNESIUM HYDROXIDE SUSP 30 ML UDC PO PRN (10:19)
[2020-09-01] MEDS ORDERED: ONDANSETRON INJ 2 MG/ML 2 ML VIAL IV PRN (10:19)
[2020-09-01] MEDS ORDERED: BUMETANIDE 1 MG TAB PO SCH (10:19)
[2020-09-01] MEDS ORDERED: GLUCOSE 40% GEL 15 GM TUBE PO PRN (10:19)
[2020-09-01] MEDS ORDERED: GLUCOSE 10 TABS/TUBE PO PRN (10:19)
[2020-09-01] MEDS ORDERED: IRON SUCROSE 100 MG in 0.9 % SODIUM CHLORIDE 100 ML IV ONE (11:02)
[2020-09-01 11:10] LABS: Hematocrit (blood only) 26.5 % (42-52); Hemoglobin 8.3 g/dL (14.0-18.0)
[2020-09-01] MEDS ORDERED: PHARMACY GLYCEMIC MGMT CONSULT SCH (11:10)
[2020-09-01] MEDS ORDERED: IRON SUCROSE 100 MG in SYRINGE 0 ML IV SCH (11:15)
--- NOTE | 2020-09-01 11:38 | Pharmacy Report ---
Pharmacy Glycemic Short Note 2 - Date of Service September 01, 2020 - Glycemic Short BSG Results (Last 24 hours): 09/01/20 09/01/20 06:12 10:10 Glucose 172 H POC Glucose 120 H OUTPATIENT ANTIDIABETIC REGIMEN: * Levemir 15 units Q HS * Novolog per sliding scale * A1c = 6.4% 08/02/20 (however interpret with caution in setting of ESRD/HD and shortened RBC lifespan) ASSESSMENT: * Type 2 diabetic admitted for acute GI bleeding * Not currently hyperglycemic. Last dose of Levemir given last evening, so basal is still on board * Recent hospitalizations reviewed. He does require less basal insulin while hospitalized. Will provide scaled dosing this PM which will deliver ~50-80% home basal dose. He is not NPO at this time * Novolog will be ordered in a dose similar to last admission which produced acceptable control. PLAN FOR INPATIENT GLYCEMIC CONTROL: * Hold outpatient oral diabetes medications * Basal insulin * Levemir SQ HS per scale: * 0 units if BSG less than 110 * 8 units if BSG 110-180 * 12 units if BSG greater than 180 * Bolus insulin * NovoLog per scale ACHS or Q6hrs while NPO * Goal Range: Low 110 mg/dL - High 160 mg/dL * Correction Factor: 25 mg/dL/unit * Nutritional / Prandial insulin per carb ratio of 1 unit per 12 grams CHO consumed PLAN FOR DISCHARGE: * A1c at goal. May resume home insulin regimen on discharge if not experiencing frequent episodes of hypoglycemia
[2020-09-01] MEDS: INSULIN ASPART 100 UNITS/ML 3 ML PEN SC SCH ×3 (12:41→20:41)
[2020-09-01] MEDS: PANTOprazole 40 MG TAB PO SCH ×2 (12:58→20:28)
[2020-09-01] MEDS: DOXAZOSIN MESYLATE 1 MG TAB PO SCH (12:58)
[2020-09-01] MEDS: hydrALAZINE TAB 50 MG TAB PO SCH ×2 (12:58→20:26)
[2020-09-01] MEDS: FUROSEMIDE 40 MG TAB PO SCH (12:58)
[2020-09-01] MEDS: FERROUS SULFATE 325 MG TAB PO SCH ×2 (12:58→20:28)
[2020-09-01] MEDS: CALCIUM ACETATE 667 MG CAP/TAB PO SCH ×2 (12:58→20:27)
[2020-09-01] MEDS: LABETALOL HCL 200 MG TAB PO SCH ×2 (12:59→20:28)
[2020-09-01] MEDS: LEVOTHYROXINE SODIUM 150 MCG TABLET PO SCH (12:59)
[2020-09-01] MEDS: FOLIC ACID 1 MG TAB PO SCH (12:59)
[2020-09-01] MEDS: ISOSORBIDE MONO EXTENDED REL 30 MG TABCR PO SCH (12:59)
[2020-09-01] MEDS: LEVOTHYROXINE SODIUM 200 MCG TABLET PO SCH (12:59)
[2020-09-01] MEDS: NEPHROCAPS PO SCH (12:59)
[2020-09-01] MEDS: DOCUSATE SODIUM 100 MG CAP PO SCH (13:00)
--- NOTE | 2020-09-01 16:03 | Nephrology Consultation ---
Date of Consultation September 01, 2020 Assessment & Plan (1) Acute lower GI bleeding: Admitted for monitoring. Notable history of recurrent UGI bleeding associated with GAVE. Hgb stable since checked at HD on Saturday and from the prior week. (2) ESRD on dialysis: Orders for HD today entered into the EMR and reviewed with the dialysis nurse. Augie was seen and evaluated prior to and during his dialysis treatment. AVF used for treatment. He has been tolerating HD well but remains notably over his EDW. Challenge for additional UF today with 4 L goal. (3) Anemia: Venofer 100 mg to be provided with HD today. Augie is maintained on Micera as an outpatient. Continue to monitor. (4) Hypertension: BP currently acceptable. Continue home Rx as prescribed but reconciliation will be required regarding loop diuretic use. Documentation suggests that Augie is taking Bumex and furosemide. I would avoid using 2 loop diuretics in combination, especially at the dosages listed. History of Present Illness Reason for Consultation: ESRD on HD Requesting Physician: Raphael Kemp DO Attending Physician: Raphael Kemp DO History of Present Illness Mr. Darnell Mcintyre is a 80 year-old white male with ESRD due to diabetic nephropathy. He has been on IHD since 12/16 ([facility] TTS 4hr 2K 2.5Ca F-200NR EDW 89 kg - primary Intertype Operator Dr. Briceno). His medical history is significant for HTN, AODM, vascular dementia, IgG monoclonal gammopathy, EFREN, BPH, hypothyroidism, HAVASUPAI and CHF w/ diastolic dysfunction. Mr. Mcintyre had several hospitalizations to evaluate anemia and weakness. EGD revealed gastric antral vascular ectasia. He was most recently admitted to [facility] in June. He had notable compliance issues with hemodialysis but this has improved. Augie has regularly attended HD since his last admission. He completed his most recent treatment on Saturday without complications. Augie is scheduled to receive his COVID vaccination at dialysis today. He presented to the [facility] ED today with recurrent hematochezia. Laboratory testing revealed a hemoglobin level of 8.7. Hemoglobin was stable at 8.2 at the dialysis unit earlier this week. Allergies Allergy/AdvReac Type Severity Reaction Status Date / Time sucralfate [From Carafate] Allergy Mild upset Verified 09/01/20 05:49 dialysis tramadol AdvReac Severe disorented Verified 09/01/20 05:49 ,falling down lorazepam [From Ativan] AdvReac Intermediate unresponsive, Verified 09/01/20 0 5:49 confusion metformin AdvReac Intermediate CONFUSION Verified 09/01/20 05:49 Home Medications Medication Instructions Recorded Confirmed Type docusate sodium 100 mg capsule 200 mg PO QAM #30 cap 01/19/19 09/01/20 Rx calcium acetate(phosphat bind) 667 2,001 mg PO TIDM tab 06/02/19 09/01/20 History mg tablet insulin aspart U-100 [Novolog 0 sliding scale dose SUBCUT QID 06/06/19 09/01/20 History U-100 Insulin aspart] cyanocobalamin (vitamin B-12) 1,000 mcg PO HS 08/14/19 09/01/20 History [Vitamin B-12] gabapentin 100 mg capsule 200 mg PO HS #180 cap 11/25/19 09/01/20 Rx folic acid 1 mg tablet 1 mg PO QDL #90 tab 04/21/20 09/01/20 Rx ferrous sulfate 325 mg (65 mg 325 mg PO BID #60 tab 05/11/20 09/01/20 Rx iron) tablet,delayed release hydralazine 50 mg tablet 50 mg PO TIDM #90 tab 05/11/20 09/01/20 Rx levothyroxine 200 mcg tablet 200 mcg PO QAM #90 tab 05/11/20 09/01/20 Rx rosuvastatin 20 mg tablet 20 mg PO QPM #90 tab 05/17/20 09/01/20 Rx Renal Caps 1 cap PO QDL 05/20/20 09/01/20 History levothyroxine 150 mcg PO QAM 05/20/20 09/01/20 History labetalol 200 mg tablet 200 mg PO BID #180 tab 05/30/20 09/01/20 Rx amlodipine 10 mg tablet 10 mg PO HS #90 tab 06/15/20 09/01/20 Rx furosemide 120 mg PO QAM 06/22/20 09/01/20 History lactulose 30 ml PO DAILY 06/22/20 09/01/20 History Levemir U-100 Insulin 15 unit SUBCUT HS 06/29/20 09/01/20 History doxazosin [Cardura] 1 mg PO QDL 06/29/20 09/01/20 History isosorbide mononitrate 30 mg 30 mg PO QAM #90 tab 07/22/20 09/01/20 Rx tablet,extended release 24 hr pantoprazole 40 mg tablet,delayed 40 mg PO BID #60 tab 08/31/20 09/01/20 Rx release bumetanide 1 mg tablet 2 mg PO BID #120 tab 09/01/20 Rx Patient History Medical History Acute hyperkalemia Anemia of renal disease Anxiety and depression Arthritis Asthma AVF (arteriovenous fistula) LEFT ARM BPH (benign prostatic hyperplasia) CAD (coronary artery disease) Chronic blood loss anemia Chronic diastolic congestive heart failure Colon, diverticulosis 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, with long-term current use of insulin COPD (chronic obstructive pulmonary disease) Diabetes mellitus, type 2 Diabetic peripheral neuropathy Dialysis patient [facility] SATURDAY, SATURDAY, SATURDAY GAVE (gastric antral vascular ectasia) GERD (gastroesophageal reflux disease) GI bleed Hearing difficulty Hyperlipidemia LDL goal <70 Hypertension Hypnic jerks Hypothyroidism IgG monoclonal gammopathy Memory loss Mild cognitive impairment Mitral regurgitation Obstructive sleep apnea uses oxygen 2 l nc at hs Occlusion and stenosis of unspecified carotid artery On home oxygen therapy WEARS O2 AT 2L HS Osteoporosis Pulmonary hypertension Secondary hyperparathyroidism of renal origin SOB (shortness of breath) Vitamin D deficiency Surgical History H/O cardiac catheterization many years ago - over 10 years no stents follow with trung (NO STENTS) H/O hemorrhoidectomy History of colonoscopy History of esophagogastroduodenoscopy (EGD) MULTIPLE History of tooth extraction Hx of cholecystectomy Family History Unknown Myocardial infarction Mother Diabetes Breast cancer late 70s Hypertension Gallbladder disease Father Diabetes Hypertension Brother Diabetes Kidney disease Hypertension Denies family history of Ovarian cancer Prostate cancer Lung cancer Colorectal cancer Social History Smoking Status: Former smoker Tobacco Type: Cigarettes packs per day: 0.5; Years Smoked: 5; Number of Years Since Quit: 20; Second Hand Exposure: No; Hx Alcohol Use: No Hx Substance Use: No Preferred Language: Irish Communication Ability: Effective Communication Ability Comment: Hard of hearing Visual Impairment: No Limitations Hearing Ability: Hard of Hearing Chocolate Dipper Required: No Beliefs That Will Affect Care: None marital status: Current Living Situation: Spouse Current Living Situation Comment: Lives w/ , Isabel Mcintyre current occupational status: disabled current occupation: works part-time at [employer] How many Children do You have: 4 Other Information That Helps Us Care for You: No other: 4 children Feels Safe at Home: Yes Safety Concerns: Feels Safe At This Time Childhood Exposure to Second-Hand Smoke: No Diet Comment: regular caffeine: Yes during the past year weight has: remained stable Dental Care, Regularly: Yes Physical Activity Frequency: Does not Exercise Physical Activity Frequency Comment: limited due physical condition Seatbelt Use: sometimes Sunscreen Use: No Assistive Devices: Cane and Oxygen - Continuous Review of Systems Review of Systems: All systems reviewed & are unremarkable except as noted in HPI & below Physical Exam Constitutional: well developed and + thin; no acute distress Eyes: no scleral abnormality and no corneal abnormality ENMT: Mouth: no oral mucosal abnormality and oral mucous membranes not dry Neck: normal visual inspection and trachea midline Respiratory: normal respiratory effort Auscultation: lungs clear to auscultation bilaterally Cardiovascular: Rate/Rhythm: regular rate Heart Sounds: normal S1, normal S2 and + murmur Extremities: + AV fistula; no edema Musculoskeletal: Extremities: no cyanosis and no clubbing Skin: normal turgor; no lesions Neurologic: Motor/Sensory: no tremor and no asterixis Psychiatric: Orientation: alert and oriented x 3 Results & Data ([facility]) Vital Signs (Past 12 Hours) Vital Signs Temp Pulse Pulse Resp BP BP Pulse Ox 09/01/20 12:52 36.7 C 78 16 154/71 H 95 09/01/20 10:09 75 18 142/75 H 95 09/01/20 10:00 37.2 C 78 20 158/89 H 97 09/01/20 09:03 78 18 138/82 95 09/01/20 08:37 71 16 152/72 H 98 09/01/20 07:10 75 16 146/79 H 98 09/01/20 06:30 80 16 165/74 H 09/01/20 06:00 74 18 150/84 H 94 09/01/20 05:31 81 20 145/73 H 95 09/01/20 05:17 36.7 C 81 18 129/71 96 Laboratory Results Laboratory Results - last 24 hr 09/01/20 09/01/20 09/01/20 06:12 06:12 06:12 WBC 4.53 L RBC 2.97 L Hgb 8.7 L Hct 27.9 L MCV 93.9 MCH 29.3 MCHC 31.2 L RDW Std Deviation 55.8 H RDW Coeff of Jose C 16.7 H Plt Count 173 MPV 11.2 H Immature Gran % (Auto) 0.2 Neut % (Auto) 73.1 Lymph % (Auto) 12.4 [place] % (Auto) 8.2 Eos % (Auto) 5.7 Baso % (Auto) 0.4 Neut # (Auto) 3.31 Lymph # (Auto) 0.56 L [place] # (Auto) 0.37 Eos # (Auto) 0.26 Baso # (Auto) 0.02 Immature Gran # (Auto) 0.01 PT 11.5 INR 1.1 APTT 26.2 PTT Ratio 1.0 Sodium 139 Potassium 3.9 Chloride 101 Carbon Dioxide 31 Anion Gap 7.0 BUN 68 H Creatinine 8.59 H* Est Cr Clr Drug Dosing 8.8 Est GFR ( Amer) 6.2 Est GFR (Non-Af Amer) 5.3 BUN/Creatinine Ratio 8.0 L Glucose 172 H POC Glucose Calcium 9.9 Magnesium 2.2 Total Bilirubin 0.5 Direct Bilirubin 0.2 AST 11 L ALT 19 Alkaline Phosphatase 107 Total Protein 7.3 Albumin 3.6 Lipase 197 COVID-19 Eval Order SARS-CoV-2 (PCR) Influenza Type A (PCR) Influenza Type B (PCR) RSV (RT-PCR) Blood Type Antibody Screen 09/01/20 09/01/20 09/01/20 06:13 06:13 06:15 WBC RBC Hgb Hct MCV MCH MCHC RDW Std Deviation RDW Coeff of Jose C Plt Count MPV Immature Gran % (Auto) Neut % (Auto) Lymph % (Auto) [place] % (Auto) Eos % (Auto) Baso % (Auto) Neut # (Auto) Lymph # (Auto) [place] # (Auto) Eos # (Auto) Baso # (Auto) Immature Gran # (Auto) PT INR APTT PTT Ratio Sodium Potassium Chloride Carbon Dioxide Anion Gap BUN Creatinine Est Cr Clr Drug Dosing Est GFR ( Amer) Est GFR (Non-Af Amer) BUN/Creatinine Ratio Glucose POC Glucose Calcium Magnesium Total Bilirubin Direct Bilirubin AST ALT Alkaline Phosphatase Total Protein Albumin Lipase COVID-19 Eval Order CovFluRsv at [facility] SARS-CoV-2 (PCR) NEGATIVE Influenza Type A (PCR) Negative Influenza Type B (PCR) Negative RSV (RT-PCR) Negative Blood Type B Positive Antibody Screen NEGATIVE 09/01/20 09/01/20 09/01/20 10:10 10:36 12:38 WBC RBC Hgb 8.3 L Hct 26.5 L MCV MCH MCHC RDW Std Deviation RDW Coeff of Jose C Plt Count MPV Immature Gran % (Auto) Neut % (Auto) Lymph % (Auto) [place] % (Auto) Eos % (Auto) Baso % (Auto) Neut # (Auto) Lymph # (Auto) [place] # (Auto) Eos # (Auto) Baso # (Auto) Immature Gran # (Auto) PT INR APTT PTT Ratio Sodium Potassium Chloride Carbon Dioxide Anion Gap BUN Creatinine Est Cr Clr Drug Dosing Est GFR ( Amer) Est GFR (Non-Af Amer) BUN/Creatinine Ratio Glucose POC Glucose 120 H 114 H Calcium Magnesium Total Bilirubin Direct Bilirubin AST ALT Alkaline Phosphatase Total Protein Albumin Lipase COVID-19 Eval Order SARS-CoV-2 (PCR) Influenza Type A (PCR) Influenza Type B (PCR) RSV (RT-PCR) Blood Type Antibody Screen PG Care Time/CCT Total # of Minutes Spent Total Time Spent with Patient: Total time spent is greater than 50% in coordination of care (as documented) at patient's floor/unit and/or counseling patient: Coding Level of Care Code 45274 Inpt Consult Level 4 Diagnoses Acute lower GI bleeding K92.2 ESRD on dialysis N18.6; Z99.2 Anemia D64.89 Anemia type: other cause Other causes of anemia: other cause, not classified Hypertension I10 Hypertension type: unspecified (1) Anemia Anemia type: other cause Other causes of anemia: other cause, not classified Qualified Code(s): D64.89 - Other specified anemias (2) Hypertension Hypertension type: unspecified Qualified Code(s): I10 - Essential (primary) hypertension
--- NOTE | 2020-09-01 17:10 | Electrocardiogram Report ---
Test Reason : Blood Pressure : / mmHG Vent. Rate : 071 BPM Atrial Rate : 088 BPM P-R Int : 000 ms QRS Dur : 160 ms QT Int : 452 ms P-R-T Axes : 000 094 264 degrees QTc Int : 491 ms Atrial fibrillation Right bundle branch block T wave abnormality, consider inferolateral ischemia Abnormal ECG When compared with ECG of 15-AUG-2020 22:50, No significant change was found Confirmed by Grabiel Farris ([id number]) on 09/01/2020 5:09:53 PM Referred By: REFERRED SELF Confirmed By:Bruce Farris
[2020-09-01 19:51] LABS: Hematocrit (blood only) 28.1 % (42-52); Hemoglobin 8.7 g/dL (14.0-18.0)
[2020-09-01] MEDS ORDERED: CYANOCOBALAMIN 500 MCG TABLET (VITAMIN B-12) PO SCH (21:00)
[2020-09-01] MEDS ORDERED: ROSUVASTATIN CALCIUM 20 MG TAB PO SCH (21:00)
[2020-09-01] MEDS ORDERED: amLODIPine BESYLATE 5 MG TAB PO SCH (21:00)
[2020-09-01] MEDS ORDERED: GABAPENTIN 100 MG CAP PO SCH (21:00)
[2020-09-01] MEDS ORDERED: INSULIN DETEMIR FLEXPEN/FLEX TOUCH 100 UNITS/ML 3ML SC SCH (21:00)
[2020-09-01 23:25] LABS: Hematocrit (blood only) 26.1 % (42-52)
[2020-09-02] MEDS: LEVOTHYROXINE SODIUM 200 MCG TABLET PO SCH (05:51)
[2020-09-02] MEDS: LEVOTHYROXINE SODIUM 150 MCG TABLET PO SCH (05:52)
[2020-09-02 06:24] LABS: Basophils # (auto) 0.02 K/uL (0-0.2); Basophils % (auto) 0.5 %; Eosinophils # (auto) 0.24 K/uL (0-0.5); Eosinophils % (auto) 5.9 %; Hematocrit (blood only) 25.9 % (42-52); Hemoglobin 8.1 g/dL (14.0-18.0); Lymphocytes # (auto) 0.49 K/uL (1.2-3.4); Mean Corpuscular Hemoglobin 29.7 pg (25-34); Mean Corpuscular Hgb Conc 31.3 g/dL (32-36); Mean Corpuscular Volume 94.9 fL (80-100); Mean Platelet Volume 10.5 fL (7.4-10.4); Monocytes # (auto) 0.67 K/uL (0.11-0.59); Monocytes % (auto) 16.4 %; Neutrophils # (auto) 2.67 K/uL (1.4-6.5); Neutrophils % (auto) 65.2 %; Platelet Count 165 K/uL (130-400); RDW Coefficient of Variation 16.9 % (11.5-14.5); RDW Standard Deviation 56.2 fL (36.4-46.3); Red Blood Count 2.73 M/uL (4.7-6.1); White Blood Count 4.09 K/uL (4.8-10.8)
[2020-09-02 07:06] LABS: BUN Creatinine Ratio 6.7 (10-20); Calcium 9.2 mg/dl (8.5-10.1); Creatinine Clr Calc Pharmacy 9.9 ml/min; Est GFR (Non-African American) 6.9; Magnesium 2.2 mg/dl (1.8-2.4); Phosphorus 3.4 mg/dl (2.5-4.9); Potassium 3.9 mmol/L (3.5-5.1)
[2020-09-02] MEDS: FUROSEMIDE 40 MG TAB PO SCH (08:01)
[2020-09-02] MEDS: FERROUS SULFATE 325 MG TAB PO SCH (08:03)
[2020-09-02] MEDS: hydrALAZINE TAB 50 MG TAB PO SCH ×2 (08:03→12:14)
[2020-09-02] MEDS: LABETALOL HCL 200 MG TAB PO SCH (08:03)
[2020-09-02] MEDS: PANTOprazole 40 MG TAB PO SCH (08:03)
[2020-09-02] MEDS: CALCIUM ACETATE 667 MG CAP/TAB PO SCH ×2 (08:04→12:13)
[2020-09-02] MEDS: ISOSORBIDE MONO EXTENDED REL 30 MG TABCR PO SCH (08:05)
[2020-09-02] MEDS: INSULIN ASPART 100 UNITS/ML 3 ML PEN SC SCH ×2 (08:07→12:06)
[2020-09-02] MEDS ORDERED: LACTULOSE SYRUP 20 GM/30 ML UDC PO SCH (09:00)
[2020-09-02] MEDS: DOCUSATE SODIUM 100 MG CAP PO SCH (09:09)
--- NOTE | 2020-09-02 09:57 | Nephrology Progress Note ---
Date of Service September 02, 2020 Assessment & Plan (1) Acute lower GI bleeding: H/H appears to be stable. Notable history of recurrent UGI bleeding associated with GAVE. Denies signs of active bleeding since admission. (2) ESRD on dialysis: HD TTS at [facility]. Completed full treatment yesterday without complications. Electrolytes controlled. BP and volume status are acceptable. AVF functioning well. Remains slightly above EDW but acceptable. Next anticipated HD tomorrow. Resume outpatient at [facility] post discharge. Medications appropriate for kidney function. (3) Anemia: Venofer 100 mg to be provided with HD yesterday. Augie is maintained on Micera as an outpatient. Continue to monitor. (4) Hypertension: BP currently acceptable. Medications appropriate for kidney function. Augie states that he continues to make urine and seems to be tolerating furosemide well. Admission and Anticipated Discharge Date Admission Date: September 01, 2020 Subjective No acute events overnight. Augie feels well this AM. He tolerated HD well yesterda y without complications. Net UF 4 L. He denies any melena or hematochezia since admission. Augie hopes to be discharged home today. Review of Systems Review of Systems: All systems reviewed & are unremarkable except as noted in HPI & below Physical Exam Constitutional: well developed and + thin; no acute distress Eyes: no scleral abnormality and no corneal abnormality ENMT: Mouth: no oral mucosal abnormality and oral mucous membranes not dry Neck: normal visual inspection and trachea midline Respiratory: normal respiratory effort Auscultation: lungs clear to auscultation bilaterally Cardiovascular: Rate/Rhythm: regular rate Heart Sounds: normal S1, normal S2 and + murmur Extremities: + AV fistula; no edema Musculoskeletal: Extremities: no cyanosis and no clubbing Skin: normal turgor; no lesions Neurologic: Motor/Sensory: no tremor and no asterixis Psychiatric: Orientation: alert and oriented x 3 Results & Data ([facility]) Vital Signs (Past 12 Hours) Vital Signs Temp Pulse Pulse Pulse Resp BP Pulse Ox 09/02/20 08:00 72 09/02/20 07:20 36.8 C 65 16 138/68 95 09/02/20 04:06 36.7 C 72 20 136/70 95 09/01/20 23:46 36.6 C 79 18 141/65 H 95 09/01/20 23:11 76 Pulse Ox 09/02/20 08:00 95 04/02/21 07:20 09/02/20 04:06 09/01/20 23:46 09/01/20 23:11 Laboratory Results Laboratory Results - last 24 hr 09/01/20 09/01/20 09/01/20 10:10 10:36 12:38 WBC RBC Hgb 8.3 L Hct 26.5 L MCV MCH MCHC RDW Std Deviation RDW Coeff of Jose C Plt Count MPV Immature Gran % (Auto) Neut % (Auto) Lymph % (Auto) [place] % (Auto) Eos % (Auto) Baso % (Auto) Neut # (Auto) Lymph # (Auto) [place] # (Auto) Eos # (Auto) Baso # (Auto) Immature Gran # (Auto) Sodium Potassium Chloride Carbon Dioxide Anion Gap BUN Creatinine Est Cr Clr Drug Dosing Est GFR ( Amer) Est GFR (Non-Af Amer) BUN/Creatinine Ratio Glucose POC Glucose 120 H 114 H Calcium Phosphorus Magnesium 09/01/20 09/01/20 09/01/20 19:38 19:54 23:15 WBC RBC Hgb 8.7 L 8.0 L Hct 28.1 L 26.1 L MCV MCH MCHC RDW Std Deviation RDW Coeff of Jose C Plt Count MPV Immature Gran % (Auto) Neut % (Auto) Lymph % (Auto) [place] % (Auto) Eos % (Auto) Baso % (Auto) Neut # (Auto) Lymph # (Auto) [place] # (Auto) Eos # (Auto) Baso # (Auto) Immature Gran # (Auto) Sodium Potassium Chloride Carbon Dioxide Anion Gap BUN Creatinine Est Cr Clr Drug Dosing Est GFR ( Amer) Est GFR (Non-Af Amer) BUN/Creatinine Ratio Glucose POC Glucose 121 H Calcium Phosphorus Magnesium 09/02/20 09/02/20 09/02/20 06:11 06:11 07:33 WBC 4.09 L RBC 2.73 L Hgb 8.1 L Hct 25.9 L MCV 94.9 MCH 29.7 MCHC 31.3 L RDW Std Deviation 56.2 H RDW Coeff of Jose C 16.9 H Plt Count 165 MPV 10.5 H Immature Gran % (Auto) 0.0 Neut % (Auto) 65.2 Lymph % (Auto) 12.0 [place] % (Auto) 16.4 Eos % (Auto) 5.9 Baso % (Auto) 0.5 Neut # (Auto) 2.67 Lymph # (Auto) 0.49 L [place] # (Auto) 0.67 H Eos # (Auto) 0.24 Baso # (Auto) 0.02 Immature Gran # (Auto) 0.00 Sodium 140 Potassium 3.9 Chloride 105 Carbon Dioxide 32 Anion Gap 3.0 BUN 46 H Creatinine 6.92 H* D Est Cr Clr Drug Dosing 9.9 Est GFR ( Amer) 8.0 Est GFR (Non-Af Amer) 6.9 BUN/Creatinine Ratio 6.7 L Glucose 104 H POC Glucose 102 H Calcium 9.2 Phosphorus 3.4 Magnesium 2.2 PG Care Time/CCT Total # of Minutes Spent Total Time Spent with Patient: Total time spent is greater than 50% in coordination of care (as documented) at patient's floor/unit and/or counseling patient: Coding Level of Care Code 52904 Subseq Hosp Care Lvl 3 Diagnoses Acute lower GI bleeding K92.2 ESRD on dialysis N18.6; Z99.2 Anemia D64.89 Anemia type: other cause Other causes of anemia: other cause, not classified Hypertension I10 Hypertension type: unspecified (1) Anemia Anemia type: other cause Other causes of anemia: other cause, not classified Qualified Code(s): D64.89 - Other specified anemias (2) Hypertension Hypertension type: unspecified Qualified Code(s): I10 - Essential (primary) hypertension
--- NOTE | 2020-09-02 10:29 | Pharmacy Report ---
Pharmacy Glycemic Short Note 2 - Date of Service September 02, 2020 - Glycemic Short BSG Results (Last 24 hours): 09/01/20 09/01/20 09/02/20 12:38 19:54 06:11 Glucose 104 H POC Glucose 114 H 121 H 09/02/20 07:33 Glucose POC Glucose 102 H OUTPATIENT ANTIDIABETIC REGIMEN: * Levemir 15 units Q HS * Novolog per sliding scale * A1c = 6.4% 08/02/20 (however interpret with caution in setting of ESRD/HD and shortened RBC lifespan) ASSESSMENT: 09/02 * BSGs well controlled over last 24 hrs * Fasting BSG 102 this AM with 8 units basal on board * Will follow post-prandial BSG pattern today to determine if Novolog adjustments necessary - continue same parameters for now 09/01 * Type 2 diabetic admitted for acute GI bleeding * Not currently hyperglycemic. Last dose of Levemir given last evening, so basal is still on board * Recent hospitalizations reviewed. He does require less basal insulin while hospitalized. Will provide scaled dosing this PM which will deliver ~50-80% home basal dose. He is not NPO at this time * Novolog will be ordered in a dose similar to last admission which produced acceptable control. PLAN FOR INPATIENT GLYCEMIC CONTROL: * Hold outpatient oral diabetes medications * Basal insulin - no change * Levemir SQ HS per scale: * 0 units if BSG less than 110 * 8 units if BSG 110-180 * 12 units if BSG greater than 180 * Bolus insulin - no change * NovoLog per scale ACHS or Q6hrs while NPO * Goal Range: Low 110 mg/dL - High 160 mg/dL * Correction Factor: 25 mg/dL/unit * Nutritional / Prandial insulin per carb ratio of 1 unit per 12 grams CHO consumed PLAN FOR DISCHARGE: * A1c at goal. May resume home insulin regimen on discharge if not experiencing frequent episodes of hypoglycemia
[2020-09-02] MEDS: NEPHROCAPS PO SCH (12:13)
[2020-09-02] MEDS: FOLIC ACID 1 MG TAB PO SCH (12:15)
[2020-09-02] MEDS: DOXAZOSIN MESYLATE 1 MG TAB PO SCH (12:15)
--- NOTE | 2020-09-02 12:23 | Discharge Summary ---
Date of Service September 02, 2020 Admission HPI Per Admitting Provider Attending: Dr. Kemp Is a 80-year-old male with a past medical history of end-stage renal disease on hemodialysis, history of GI bleed, history of anemia, hypothyroidism, electrolyte imbalance, atrial fibrillation (not on anticoagulation) mild cognitive impairment, history of non-ST elevated ID 12/21/2019, GERD, diabetes mellitus type 2 on long-term insulin, vitamin D deficiency, home oxygen, osteoporosis, carotid artery stenosis, mitral regurgitation, IgG monoclonal gammopathy, asthma, anxiety and depression, gastric antral vascular ectasia, hypertension, peripheral vascular disease, hiatal hernia, noncompliance, cirrhosis, sarcopenia, placement of aVF, diverticulosis, hyperlipidemia, arthritis, chronic diastolic congestive heart failure, diabetic peripheral neuropathy, hearing difficulty, obstructive sleep apnea, pulmonary hypertension, CAD, BPH, hyperparathyroidism of renal origin, COPD. The patient presents with a 2-day history of GI bleed. He states that his stools have been very dark. He has no lightheadedness or dizziness and his hemoglobin is stable as compared to previous visits. Systolic blood pressure is in the 150s. He has no abdominal pain or back pain. He denies any fever, chills, sweats, rigors. He has no nausea or vomiting. He denies any diarrhea. ER examination did reveal dark stool in the rectal vault. Principal Diagnosis Rectal bleeding Discharge Exam Constitutional well developed, well nourished, + frail appearing and comfortable; no acute distress Neck trachea midline, no thyromegaly Respiratory normal respiratory effort, lungs clear to auscultation Cardiovascular RRR, no murmur, no edema Extremities: + AV fistula Gastrointestinal (Abdomen) normal bowel sounds, soft, nontender, no hepatosplenomegaly Musculoskeletal no cyanosis or clubbing, extremities motor strength 5/5 Skin no rashes, warm and dry Neurologic patellar DTR's 2+ bilat, sensation intact and PERRL, EOMI, accommodation nl, no face palsy, no dysarthria Psychiatric A+Ox3, euthymic affect Lymphatic no cervical or axillary lymphadenopathy Discharge Data Allergies Allergy/AdvReac Type Severity Reaction Status Date / Time sucralfate [From Carafate] Allergy Mild upset Verified 09/01/20 05:49 dialysis tramadol AdvReac Severe disorented Verified 09/01/20 05:49 ,falling down lorazepam [From Ativan] AdvReac Intermediate unresponsive, Verified 09/01/20 05:49 confusion metformin AdvReac Intermediate CONFUSION Verified 09/01/20 05:49 Consultations 09/01/20 07:23 ED Decision to Admit Stat 09/01/20 10:19 Consult Nephrology Routine Hospital Course (1) Acute lower GI bleeding: presented with some rectal bleeding, long history of such monitored for further bleeding, no events Hb down slightly but in normal baseline range for patient discharge to home since he has not had bleeding for 24 hours (2) ESRD on dialysis: got HD on 09/03 after he was admitted, tolerated well report for HD on 09/05 as normally scheduled he should get COVID vaccine in clinic this week (3) Anemia: chronic, runs 7-8.5 range, due to frequent bouts of bleeding as well as ESRD at baseline (4) New onset a-fib: brief, rates controlled, sinus rhythm on discharge (5) Hypothyroidism: (6) GERD (gastroesophageal reflux disease): (7) Diabetes mellitus, type 2: (8) Hypertension: (9) Peripheral vascular disease: (10) Hyperlipidemia LDL goal <70: (11) Obstructive sleep apnea: (12) Pulmonary hypertension: (13) CAD (coronary artery disease): (14) BPH (benign prostatic hyperplasia): (15) COPD (chronic obstructive pulmonary disease): Total Time Total Time Spent Total Time Spent (In Minutes): 20 Total Time Includes: Examination of the Patient, Discharge Planning, Medication Reconciliation and Communication With Other Providers (Dr. Gracia) Discharge Plan Discharge Items Patient Disposition: Home - Self-Care Reason For Visit: GI BLEED Discharge Diagnosis: GI bleed, resolved ESRD, got dialysis on 09/01 Condition on Discharge: Good Goals: report for dialysis as normally scheduled monitor for further bleeding Activity: Resume your previous activity Non-emergency contact: Primary Care Provider Call non-emergency contact if: you have any medication questions Follow-up/Referrals: Mahsa Wang DO [Primary Care Provider] - 09/06/20 10:20 am (WILL SEE PA) Diet: Carb Consistent or DM2 and Dialysis Renal Addtl Attending Provider Instructions: Medications: no changes GI bleeding: stopped as of now, hemoglobin is relatively stable for you, it is 8.1 this morning ESRD: report for next scheduled HD session The HD clinic had to give away your vaccine today since you were here, but they will have a dose for you next week Pending Studies at Discharge: No Stand-Alone Forms: My [facility], Smoking Cessation Medications and DC Order Prescriptions: Continued gabapentin 100 mg capsule 200 mg PO HS Qty: 180 RF: 1 folic acid 1 mg tablet 1 mg PO QDL Qty: 90 RF: 1 ferrous sulfate 325 mg (65 mg iron) tablet,delayed release (DR/EC) 325 mg PO BID Qty: 60 RF: 5 hydralazine 50 mg tablet 50 mg PO TIDM Qty: 90 RF: 3 levothyroxine 200 mcg tablet 200 mcg PO QAM Qty: 90 RF: 3 rosuvastatin 20 mg tablet 20 mg PO QPM Qty: 90 RF: 1 labetalol 200 mg tablet 200 mg PO BID Qty: 180 RF: 1 amlodipine 10 mg tablet 10 mg PO HS Qty: 90 RF: 1 isosorbide mononitrate 30 mg tablet extended release 24 hr 30 mg PO QAM Qty: 90 RF: 1 pantoprazole 40 mg tablet,delayed release (DR/EC) 40 mg PO BID Qty: 60 RF: 3 bumetanide 1 mg tablet 2 mg PO BID Qty: 120 RF: 5 calcium acetate(phosphat bind) 667 mg tablet 2,001 mg PO TIDM Qty: 270 RF: 3 docusate sodium 100 mg capsule 200 mg PO QAM Qty: 30 RF: 0 furosemide 80 mg tablet 120 mg PO QAM RF: 0 lactulose 10 gram/15 mL solution 30 ml PO DAILY RF: 0 doxazosin [Cardura] 1 mg tablet 1 mg PO QDL RF: 0 Levemir U-100 Insulin 100 unit/mL solution 15 unit subcut HS RF: 0 insulin aspart U-100 [Novolog U-100 Insulin aspart] 100 unit/mL solution 0 sliding scale dose subcut QID RF: 0 cyanocobalamin (vitamin B-12) [Vitamin B-12] 1,000 mcg Tablet 1,000 mcg PO HS RF: 0 levothyroxine 150 mcg tablet 150 mcg PO QAM RF: 0 Renal Caps 1 mg capsule 1 cap PO QDL RF: 0 Discharge Orders: Discharge Order (Routine); Ordered 09/02/20 Ordered By: Raphael Kemp Admission Data Admit Date/Time: 09/01/20 08:50 Attending Provider: Raphael Kemp Admit Provider: Raphael Kemp Primary Care Provider: Mahsa Wang Other Providers: Raphael Kemp ; Merlyn Briceno Other Interventions: Discharge Summary Assessment (RN) Last Done: 09/02/20 12:23 Coding Level of Care Code 88233 OBS Care - Discharge Diagnoses Acute lower GI bleeding K92.2 ESRD on dialysis N18.6; Z99.2 Anemia D64.89 Anemia type: other cause Other causes of anemia: other cause, not classified New onset a-fib I48.91 Hypothyroidism E03.9 GERD (gastroesophageal reflux disease) K21.9 Diabetes mellitus, type 2 E11.22; N18.6; Z79.4; Z99.2 Chronic kidney disease stage: on chronic dialysis Diabetes mellitus complication detail: with chronic kidney disease Diabetes mellitus complication status: with kidney complications Diabetes mellitus [employer] insulin use: with [employer] use Hypertension I10 Hypertension type: unspecified Peripheral vascular disease I73.9 Hyperlipidemia LDL goal <70 E78.5 Obstructive sleep apnea G47.33 Pulmonary hypertension I27.20 CAD (coronary artery disease) I25.10 Associated angina: without angina Coronary Disease-Associated Artery/Lesion type: [place] artery [place] vs. transplanted heart: [place] heart BPH (benign prostatic hyperplasia) N40.0 Lower urinary tract symptom presence: unspecified whether lower urinary tract symptoms present COPD (chronic obstructive pulmonary disease) J44.9 COPD type: unspecified COPD
== END 2020-09-02 13:26 | disposition home or self-care (01) | DRG 377 ==
LOC: ED 05:08 → 1E 08:50 → 2S 19:21

== ENCOUNTER 2020-10-17 03:09 | Inpatient (IN) ==
[2020-10-17 03:35] LABS: Basophils # (auto) 0.02 K/uL (0-0.2); Basophils % (auto) 0.3 %; Eosinophils # (auto) 0.04 K/uL (0-0.5); Eosinophils % (auto) 0.6 %; Hemoglobin 8.2 g/dL (14.0-18.0); Immature Granulocytes # (auto) 0.01 K/uL (0.00-0.02); Immature Granulocytes % (auto) 0.1 %; Lymphocytes % (auto) 5.7 %; Mean Corpuscular Hemoglobin 29.4 pg (25-34); Mean Corpuscular Hgb Conc 31.5 g/dL (32-36); Mean Corpuscular Volume 93.2 fL (80-100); Mean Platelet Volume 10.7 fL (7.4-10.4); Monocytes # (auto) 0.81 K/uL (0.11-0.59); Monocytes % (auto) 11.5 %; Neutrophils # (auto) 5.75 K/uL (1.4-6.5); Neutrophils % (auto) 81.8 %; Platelet Count 179 K/uL (130-400); RDW Coefficient of Variation 15.9 % (11.5-14.5); RDW Standard Deviation 54.8 fL (36.4-46.3); Red Blood Count 2.79 M/uL (4.7-6.1); White Blood Count 7.03 K/uL (4.8-10.8)
--- NOTE | 2020-10-17 03:35 | Emergency Department Note ---
Impression & Plan Acute hyperkalemia, Weakness, Acute knee pain ED Provider Note NAME: KRIS MCINTYRE AGE: 80 SEX: M ARRIVES VIA: Ambulance INFORMANT: Patient ED PROVIDER(S): Chayo Rahman DO CHIEF COMPLAINT: Weakness PLAN: [facility] Condition: Guarded MEDICAL DECISION MAKING: This is a 80-year-old male patient with end-stage renal disease who presents to the emergency department with increased weakness and right knee pain. The patient missed dialysis twice this week. He presents to the emergency department with acute generalized weakness and right knee pain. The patient does not have any good reason as to why he missed dialysis. He denies any trauma to the right knee. X-ray shows no acute evidence of fracture to the right knee or any significant joint effusion. The patient's potassium level is elevated.He has missed dialysis over the past 4 days.He will require dialysis. [facility] and [facility] will evaluate for further management. Triage Nursing notes reviewed and agree them. Additional history obtained from EMS Prior medical records reviewed Vital Signs: reviewed and remarkable for no significant abnormalities Differential diagnosis: Congestive heart failure; Hyperkalemia; Electrolyte abnormality; Septic joint; Acute fracture; joint effusion ER treatment provided: IV Dilaudid Diagnostics interpreted by me: ECG: Atrial fibrillation with rapid ventricular response at a rate of 111 with a right bundle branch block. Significant ST segment depression in the anterior and lateral leads which is unchanged from previous EKGs. T wave inversions in the inferior leads which is also unchanged from previous EKGs. There is no ischemic changes. Cardiac Monitoring: A. fib at a rate of 110 Laboratory studies: See below Imaging studies: As per my interpretation Chest x-ray: Cardiomegaly but no acute pulmonary infiltrates or pleural effusions. Right knee x-ray: No significant joint effusion or acute fracture noted. HPI: 80/M arrives for evaluation of generalized weakness. The patient has missed his last 2 dialysis appointments and presents to the emergency department with extreme weakness and pain to the right knee. Cording to EMS, the patient has not taken his medications over the past 24 hours and according to the has not been eating very much for the past 3 days. The patient's O2 requirement has increased from 2 to 4 L at home. According to EMS, the patient has missed dialysis appointments in the past similar to this. ROS: See above HPI for pertinent positives & negatives. A total of 10 systems reviewed and were otherwise negative. PAST MEDICAL HISTORY:See Below PAST SURGICAL HISTORY:See Below FAMILY HISTORY:See Below SOCIAL HISTORY:See Below HOME MEDICATIONS:See Below ALLERGIES:See Below VITALS:See Below PHYSICAL EXAMINATION: HEENT: Head - normocephalic and atraumatic. Pupils are equal, round, and reactive to light. Extraocular eye muscles are intact, and sclera are anicteric. Nose - moist nasal mucosa without discharge. Mouth - moist buccal mucosa. Oropharynx is nonerythematous and there is no tonsillar exudate or edema noted. Neck: Supple; no JVD. Heart: Regular rate and rhythm. There is a normal S1 and S2 with no murmurs, clicks, or gallops appreciated. Lungs: Clear to auscultation bilaterally with no wheezes, rales, or rhonchi. Abdomen: Soft, completely nontender, nondistended, with good bowel sounds. There are no palpable pulsatile masses or hepatosplenomegaly. There is no guarding, rigidity, or rebound noted. Extremities: No evidence of cyanosis, clubbing, or edema. There are easily palpable peripheral pulses. Skin: warm and dry with good turgor and no rashes. ED COURSE: Times/Reassessments: 0320: Patient was evaluated in room a 12. A complete history and physical was performed. Previous electronic medical records were reviewed. An order was placed for continuous cardiac monitoring. Patient was in A. fib at a rate of 105. A twelve-lead EKG was obtained as described above. Patient had a chest x-ray performed as well as an x-ray of the right knee. Patient was given 0.5 milligram of IV Dilaudid for the pain in the right knee with significant relief of his discomfort. Upon repeat evaluation, the patient was asleep and resting comfortably. Vital signs were stable. I discussed the case with the [facility] hospitalist and they will evaluate for further management. Patient will require dialysis. Chayo Rahman DO Past Med/Surg History Medical History (Updated 10/17/20 @ 06:16 by Hermilo Ashby MD) Acute blood loss anemia Acute hyperkalemia Acute hyperkalemia Acute lower GI bleeding Anemia of renal disease Anxiety and depression Arthritis Asthma AVF (arteriovenous fistula) LEFT ARM Bilateral leg pain BPH (benign prostatic hyperplasia) CAD (coronary artery disease) Chronic blood loss anemia Chronic diastolic congestive heart failure Colon, diverticulosis 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, with long-term current use of insulin COPD (chronic obstructive pulmonary disease) Diabetes mellitus, type 2 Diabetic peripheral neuropathy Dialysis patient [facility] SATURDAY, SATURDAY, SATURDAY GAVE (gastric antral vascular ectasia) GI bleed Hearing difficulty Hyperlipidemia LDL goal <70 Hypertension Hypnic jerks Hypoxia IgG monoclonal gammopathy Memory loss Mild cognitive impairment Mitral regurgitation New onset a-fib Obstructive sleep apnea uses oxygen 2 l nc at hs Occlusion and stenosis of unspecified carotid artery On home oxygen therapy WEARS O2 AT 2L HS Osteoporosis Pulmonary hypertension Secondary hyperparathyroidism of renal origin SOB (shortness of breath) SOB (shortness of breath) Vitamin D deficiency Volume overload Surgical History H/O cardiac catheterization many years ago - over 10 years no stents follow with trung (NO STENTS) H/O hemorrhoidectomy History of colonoscopy History of esophagogastroduodenoscopy (EGD) MULTIPLE History of tooth extraction Hx of cholecystectomy Family History Unknown Myocardial infarction Mother Diabetes Breast cancer late 70s Hypertension Gallbladder disease Father Diabetes Hypertension Brother Diabetes Kidney disease Hypertension Denies family history of Ovarian cancer Prostate cancer Lung cancer Colorectal cancer Social History Smoking Status: Unknown if ever smoked Tobacco Type: Cigarettes packs per day: 0.5; Years Smoked: 5; Number of Years Since Quit: 20; Second Hand Exposure: No; Hx Alcohol Use: No Hx Substance Use: No Preferred Language: Ethiopian Communication Ability: Effective Visual Impairment: No Limitations Hearing Ability: Hard of Hearing Proofer Required: No Beliefs That Will Affect Care: None marital status: Current Living Situation: Spouse Current Living Situation Comment: Lives w/ , Isabel Mcintyre current occupational status: disabled current occupation: works part-time at [employer] How many Children do You have: 4 other: 4 children Feels Safe at Home: Yes Childhood Exposure to Second-Hand Smoke: No Diet Comment: regular caffeine: Yes during the past year weight has: remained stable Dental Care, Regularly: Yes Physical Activity Frequency: Does not Exercise Physical Activity Frequency Comment: limited due physical condition Seatbelt Use: sometimes Sunscreen Use: No Assistive Devices: None Allergies Allergies Allergy/AdvReac Type Severity Reaction Status Date / Time sucralfate [From Carafate] Allergy Mild upset Verified 10/11/20 01:03 dialysis tramadol AdvReac Severe disorented Verified 10/11/20 01:03 ,falling down lorazepam [From Ativan] AdvReac Intermediate unresponsive, Verified 10/11/20 01:03 confusion metformin AdvReac Intermediate CONFUSION Verified 10/11/20 01:03 Home Meds Home Medications Medication Instructions Recorded Confirmed insulin aspart U-100 [Novolog 0 sliding scale dose SUBCUT QID 06/06/19 10/11/20 U-100 Insulin aspart] cyanocobalamin (vitamin B-12) 1,000 mcg PO HS 08/14/19 10/11/20 [Vitamin B-12] Renal Caps 1 cap PO QDL 05/20/20 10/11/20 levothyroxine 150 mcg PO QAM 05/20/20 10/11/20 lactulose 30 ml PO DAILY 06/22/20 10/11/20 Levemir U-100 Insulin 15 unit SUBCUT HS 06/29/20 10/11/20 doxazosin [Cardura] 1 mg PO QDL 06/29/20 10/11/20 Previous Rx's Medication Instructions Recorded docusate sodium 100 mg capsule 200 mg PO QAM #30 cap 01/19/19 folic acid 1 mg tablet 1 mg PO QDL #90 tab 04/21/20 ferrous sulfate 325 mg (65 mg 325 mg PO BID #60 tab 05/11/20 iron) tablet,delayed release levothyroxine 200 mcg tablet 200 mcg PO QAM #90 tab 05/11/20 rosuvastatin 20 mg tablet 20 mg PO QPM #90 tab 05/17/20 labetalol 200 mg tablet 200 mg PO BID #180 tab 05/30/20 amlodipine 10 mg tablet 10 mg PO HS #90 tab 06/15/20 isosorbide mononitrate 30 mg 30 mg PO QAM #90 tab 07/22/20 tablet,extended release 24 hr pantoprazole 40 mg tablet,delayed 40 mg PO BID #60 tab 08/31/20 release bumetanide 1 mg tablet 2 mg PO BID #120 tab 09/01/20 calcium acetate(phosphat bind) 667 2,001 mg PO TIDM #270 tab 09/02/20 mg tablet hydralazine 50 mg tablet 50 mg PO TIDM #90 tab 09/28/20 gabapentin 100 mg capsule 200 mg PO UD #180 cap 10/11/20 Results & Data (ED) Vital Signs Vital Signs - 24 hr 10/17/20 03:37 10/17/20 04:35 10/17/20 05:32 Temperature 36.8 C Temperature Source Oral Pulse Rate 105 H Pulse Rate [Apical] 110 H 103 H Pulse Rhythm Irregular Pulse Rhythm [Apical] Irregular Irregular Irregular Pulse Strength Normal Pulse Strength [Apical] Normal Normal Normal Respiratory Rate 20 20 18 Respiratory Effort / Characteristics Non-Labored Non-Labored Non-Labored Respiratory Depth Normal Normal Normal Respiratory Pattern Regular Regular Regular Blood Pressure 131/72 Blood Pressure [Right Arm] 131/72 117/63 118/64 Blood Pressure Mean 91 Blood Pressure Mean [Right Arm] 91 81 82 Blood Pressure Position Sitting Blood Pressure Position [Right Arm] Sitting Sitting Sitting Pulse Oximetry 4 L 100 97 Oxygen Delivery Method Nasal Cannula Nasal Cannula Nasal Cannula Oxygen Flow Rate 4 4 4 Sepsis Recent Fever Within 48 Hours No Sepsis New/Unexplained Change in Mental Status No Sepsis Action Taken by Nursing No Action Required Laboratory Data Result diagrams: 10/17/20 03:28 10/17/20 03:28 Lab Results 10/17/20 10/17/20 Range/Units 03:28 03:28 WBC 7.03 (4.8-10.8) K/uL RBC 2.79 L (4.7-6.1) M/uL Hgb 8.2 L (14.0-18.0) g/dL Hct 26.0 L (42-52) % MCV 93.2 (80-100) fL MCH 29.4 (25-34) pg MCHC 31.5 L (32-36) g/dL RDW Std Deviation 54.8 H (36.4-46.3) fL RDW Coeff of Jose C 15.9 H (11.5-14.5) % Plt Count 179 (130-400) K/uL MPV 10.7 H (7.4-10.4) fL Immature Gran % (Auto) 0.1 % Neut % (Auto) 81.8 % Lymph % (Auto) 5.7 % [place] % (Auto) 11.5 % Eos % (Auto) 0.6 % Baso % (Auto) 0.3 % Neut # (Auto) 5.75 (1.4-6.5) K/uL Lymph # (Auto) 0.40 L (1.2-3.4) K/uL [place] # (Auto) 0.81 H (0.11-0.59) K/uL Eos # (Auto) 0.04 (0-0.5) K/uL Baso # (Auto) 0.02 (0-0.2) K/uL Immature Gran # (Auto) 0.01 (0.00-0.02) K/uL Sodium 136 (136-145) mmol/L Potassium 5.8 H (3.5-5.1) mmol/L Chloride 96 L (98-107) mmol/L Carbon Dioxide 24 (21-32) mmol/L Anion Gap 16.0 H (3-11) BUN 125 H (7-18) mg/dl Creatinine 15.50 H* (0.6-1.4) mg/dl Est Cr Clr Drug Dosing 4.9 ml/min Est GFR ( Amer) 3.0 ml/min Est GFR (Non-Af Amer) 2.6 ml/min BUN/Creatinine Ratio 8.2 L (10-20) Glucose 188 H (70-99) mg/dl Calcium 9.3 (8.5-10.1) mg/dl Total Bilirubin 1.0 (0.2-1) mg/dl AST 127 H (15-37) U/L ALT 92 H (12-78) U/L Alkaline Phosphatase 108 (45-117) U/L Troponin I 0.201 H* (0-0.045) ng/ml Total Protein 7.1 (6.4-8.2) gm/dl Albumin 3.2 L (3.4-5.0) gm/dl Globulin 3.9 (2.5-4.0) gm/dl Albumin/Globulin Ratio 0.8 L (0.9-2) TSH 15.600 H (0.300-4.500) uIu/ml Free T4 1.04 (0.8-1.6) ng/dl Administered Medications Discontinued Medications Hydromorphone HCl (Hydromorphone Inj 0.5 Mg/0.5 Ml Syr) 0.5 mg IV NOW STA Stop: 10/17/20 03:43 Last Admin: 10/17/20 04:04 Dose: 0.5 mg Documented by: [id number] Discharge Plan Visit Data Chief Complaint: Weakness Stated Complaint: WEAK ED Provider: Chayo Rahman Discharge Problem: Acute hyperkalemia, Weakness, Acute knee pain Forms Stand Alone Forms: [facility] Prescriptions Prescriptions: No Action folic acid 1 mg tablet 1 mg PO QDL Qty: 90 RF: 1 ferrous sulfate 325 mg (65 mg iron) tablet,delayed release (DR/EC) 325 mg PO BID Qty: 60 RF: 5 levothyroxine 200 mcg tablet 200 mcg PO QAM Qty: 90 RF: 3 rosuvastatin 20 mg tablet 20 mg PO QPM Qty: 90 RF: 1 labetalol 200 mg tablet 200 mg PO BID Qty: 180 RF: 1 amlodipine 10 mg tablet 10 mg PO HS Qty: 90 RF: 1 isosorbide mononitrate 30 mg tablet extended release 24 hr 30 mg PO QAM Qty: 90 RF: 1 pantoprazole 40 mg tablet,delayed release (DR/EC) 40 mg PO BID Qty: 60 RF: 3 bumetanide 1 mg tablet 2 mg PO BID Qty: 120 RF: 5 calcium acetate(phosphat bind) 667 mg tablet 2,001 mg PO TIDM Qty: 270 RF: 3 hydralazine 50 mg tablet 50 mg PO TIDM Qty: 90 RF: 3 gabapentin 100 mg capsule 200 mg PO UD Qty: 180 RF: 1 docusate sodium 100 mg capsule 200 mg PO QAM Qty: 30 RF: 0 lactulose 10 gram/15 mL solution 30 ml PO DAILY RF: 0 doxazosin [Cardura] 1 mg tablet 1 mg PO QDL RF: 0 Levemir U-100 Insulin 100 unit/mL solution 15 unit subcut HS RF: 0 insulin aspart U-100 [Novolog U-100 Insulin aspart] 100 unit/mL solution 0 sliding scale dose subcut QID RF: 0 cyanocobalamin (vitamin B-12) [Vitamin B-12] 1,000 mcg Tablet 1,000 mcg PO HS RF: 0 levothyroxine 150 mcg tablet 150 mcg PO QAM RF: 0 Renal Caps 1 mg capsule 1 cap PO QDL RF: 0 Discharge Problem: Acute knee pain Qualifiers: Laterality: right Qualified Code(s): M25.561 - Pain in right knee
[2020-10-17] MEDS ORDERED: HYDROmorphone INJ 0.5 MG/0.5 ML SYR IV STA (03:42)
[2020-10-17] MEDS ORDERED: SODIUM BICARB 8.4% INJ 50 MEQ/50 ML SYR IV ONE (03:47)
[2020-10-17] MEDS ORDERED: CALCIUM CHLORIDE 10% 10 ML SYR IV ONE (03:47)
[2020-10-17] MEDS ORDERED: ATROPINE SULFATE 0.1 MG/ML 10ML SYR IV ONE (03:47)
[2020-10-17 04:18] LABS: Albumin Globulin Ratio 0.8 (0.9-2); Albumin Level 3.2 gm/dl (3.4-5.0); BUN Creatinine Ratio 8.2 (10-20); Calcium 9.3 mg/dl (8.5-10.1); Creatinine Clr Calc Pharmacy 4.9 ml/min; Est GFR (Non-African American) 2.6 ml/min; Globulin 3.9 gm/dl (2.5-4.0); Potassium 5.8 mmol/L (3.5-5.1); Thyroid Stimulating Hormone 15.6 uIu/ml (0.300-4.500); Total Protein 7.1 gm/dl (6.4-8.2); Troponin I 0.201 ng/ml (0-0.045)
[2020-10-17 04:39] LABS: T4 Free Thyroxine 1.04 ng/dl (0.8-1.6)
--- NOTE | 2020-10-17 06:24 | History & Physical Report ---
Date of Service October 17, 2020 Assessment & Plan (1) Elevated troponin: Elevated troponin/atrial fibrillation with RVR/hypertension- The patient will be admitted to telemetry for serial cardiac enzymes, serial EKG's, cardiac rhythm monitoring and a 2-D echocardiogram with Dopplers. Troponin 0.201 upon admission. EKG with A. fib with RVR at 111, right bundle branch block, and worse signs of ischemia in 1, aVL and V6 Continue amlodipine, bumetanide, doxazosin, hydralazine, isosorbide mononitrate and labetalol with hold parameters. Suspect he missed some of his heart rate control medications, along with his dialysis twice Present on Admission?: Yes (2) Acute hyperkalemia: Potassium 5.8 upon admission, will be corrected with dialysis this morning Present on Admission?: Yes (3) ESRD on dialysis: ESRD on HD/medical noncompliance- ESRD on HD needing hemodialysis, since he missed dialysis twice this past week. Present on Admission?: Yes (4) Atrial fibrillation with RVR: See above. 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 Present on Admission?: Yes (9) Cirrhosis: Liver tests abnormal this morning, more likely secondary to hepatic congestion from fluid overload Present on Admission?: Yes (10) AVF (arteriovenous fistula): AV fistula in left arm- Noted for dialysis Present on Admission?: Yes (11) Hyperlipidemia LDL goal <70: Continue rosuvastatin Present on Admission?: Yes (12) Diabetic peripheral neuropathy: Continue gabapentin Present on Admission?: Yes History of Present Illness Chief Complaint: The patient presents to the emergency department with increased generalized weakness, weight gain, fluid retention associated with missing dialysis twice this past week Primary Care Provider: Mahsa Wang, The patient is a 80-year-old male with a past medical history including ESRD on HD, hypothyroidism, medical noncompliance, atrial fibrillation, NSTEMI, diabetes mellitus, carotid artery stenosis, IgG monoclonal gammopathy, asthma, anxiety depression, GAVE causing chronic blood loss anemia, hiatal hernia, GERD, PAD, cirrhosis, aVF, hyperlipidemia, chronic HFpEF, diabetic peripheral neuropathy, EFRNE, pulmonary pretension, CAD, BPH, secondary hyperparathyroidism of renal origin, and COPD. Patient presents with symptoms as noted above, and as is often the case, his medical noncompliance with not getting to dialysis has led to symptoms that require admission. Allergies Allergy/AdvReac Type Severity Reaction Status Date / Time sucralfate [From Carafate] Allergy Mild upset Verified 10/11/20 01:03 dialysis tramadol AdvReac Severe disorented Verified 10/11/20 01:03 ,falling down lorazepam [From Ativan] AdvReac Intermediate unresponsive, Verified 10/11/20 01:03 confusion metformin AdvReac Intermediate CONFUSION Verified 10/11/20 01:03 Home Medications Medication Instructions Recorded Confirmed Type docusate sodium 100 mg capsule 200 mg PO QAM #30 cap 01/19/19 10/11/20 Rx insulin aspart U-100 [Novolog 0 sliding scale dose SUBCUT QID 06/06/19 10/11/20 History U-100 Insulin aspart] cyanocobalamin (vitamin B-12) 1,000 mcg PO HS 08/14/19 10/11/20 History [Vitamin B-12] folic acid 1 mg tablet 1 mg PO QDL #90 tab 04/21/20 10/11/20 Rx ferrous sulfate 325 mg (65 mg 325 mg PO BID #60 tab 05/11/20 10/11/20 Rx iron) tablet,delayed release levothyroxine 200 mcg tablet 200 mcg PO QAM #90 tab 05/11/20 10/11/20 Rx rosuvastatin 20 mg tablet 20 mg PO QPM #90 tab 05/17/20 10/11/20 Rx Renal Caps 1 cap PO QDL 05/20/20 10/11/20 History levothyroxine 150 mcg PO QAM 05/20/20 10/11/20 History labetalol 200 mg tablet 200 mg PO BID #180 tab 05/30/20 10/11/20 Rx amlodipine 10 mg tablet 10 mg PO HS #90 tab 06/15/20 10/11/20 Rx lactulose 30 ml PO DAILY 06/22/20 10/11/20 History Levemir U-100 Insulin 15 unit SUBCUT HS 06/29/20 10/11/20 History doxazosin [Cardura] 1 mg PO QDL 06/29/20 10/11/20 History isosorbide mononitrate 30 mg 30 mg PO QAM #90 tab 07/22/20 10/11/20 Rx tablet,extended release 24 hr pantoprazole 40 mg tablet,delayed 40 mg PO BID #60 tab 08/31/20 10/11/20 Rx release bumetanide 1 mg tablet 2 mg PO BID #120 tab 09/01/20 10/11/20 Rx calcium acetate(phosphat bind) 667 2,001 mg PO TIDM #270 tab 09/02/20 10/11/20 Rx mg tablet hydralazine 50 mg tablet 50 mg PO TIDM #90 tab 09/28/20 10/11/20 Rx gabapentin 100 mg capsule 200 mg PO UD #180 cap 10/11/20 Rx Past Med/Surg History Medical History (Updated 10/17/20 @ 06:16 by Hermilo Ashby MD) Acute blood loss anemia Acute hyperkalemia Acute hyperkalemia Acute lower GI bleeding Anemia of renal disease Anxiety and depression Arthritis Asthma AVF (arteriovenous fistula) LEFT ARM Bilateral leg pain BPH (benign prostatic hyperplasia) CAD (coronary artery disease) Chronic blood loss anemia Chronic diastolic congestive heart failure Colon, diverticulosis 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, with long-term current use of insulin COPD (chronic obstructive pulmonary disease) Diabetes mellitus, type 2 Diabetic peripheral neuropathy Dialysis patient [facility] SATURDAY, SATURDAY, SATURDAY GAVE (gastric antral vascular ectasia) GI bleed Hearing difficulty Hyperlipidemia LDL goal <70 Hypertension Hypnic jerks Hypoxia IgG monoclonal gammopathy Memory loss Mild cognitive impairment Mitral regurgitation New onset a-fib Obstructive sleep apnea uses oxygen 2 l nc at hs Occlusion and stenosis of unspecified carotid artery On home oxygen therapy WEARS O2 AT 2L HS Osteoporosis Pulmonary hypertension Secondary hyperparathyroidism of renal origin SOB (shortness of breath) SOB (shortness of breath) Vitamin D deficiency Volume overload Surgical History H/O cardiac catheterization many years ago - over 10 years no stents follow with trung (NO STENTS) H/O hemorrhoidectomy History of colonoscopy History of esophagogastroduodenoscopy (EGD) MULTIPLE History of tooth extraction Hx of cholecystectomy Family History Unknown Myocardial infarction Mother Diabetes Breast cancer late 70s Hypertension Gallbladder disease Father Diabetes Hypertension Brother Diabetes Kidney disease Hypertension Denies family history of Ovarian cancer Prostate cancer Lung cancer Colorectal cancer Social History Smoking Status: Unknown if ever smoked Tobacco Type: Cigarettes packs per day: 0.5; Years Smoked: 5; Number of Years Since Quit: 20; Second Hand Exposure: No; Hx Alcohol Use: No Hx Substance Use: No Preferred Language: Ghanaian Communication Ability: Effective Visual Impairment: No Limitations Hearing Ability: Hard of Hearing Driver Sales Required: No Beliefs That Will Affect Care: None marital status: Current Living Situation: Spouse Current Living Situation Comment: Lives w/ , Isabel Mcintyre current occupational status: disabled current occupation: works part-time at [email or web address] How many Children do You have: 4 other: 4 children Feels Safe at Home: Yes Childhood Exposure to Second-Hand Smoke: No Diet Comment: regular caffeine: Yes during the past year weight has: remained stable Dental Care, Regularly: Yes Physical Activity Frequency: Does not Exercise Physical Activity Frequency Comment: limited due physical condition Seatbelt Use: sometimes Sunscreen Use: No Assistive Devices: None Review of Systems Review of Systems: The patient denies chest pain, palpitations, cough, sore throat, fevers, chills, sweats, nausea, vomiting, diarrhea , constipation, abdominal pain, pelvic pain, blood in urine or stool, dysuria, urinary frequency or urgency, lightheadedness, dizziness, headache, memory loss, loss of consciousness, focal weakness, numbness or tingling in arms or legs, back or neck pain, or night sweats. The review of systems is otherwise negative other than for that already noted above, and at least 10 systems have been reviewed. Physical Exam Physical Exam: The patient is awake, mildly lethargic, normocephalic and atraumatic, lying in bed and in no acute distress. HEENT--PERRL, EOMI, mucous membranes and oropharynx dry. Neck--supple. No JVD. No bruits. Thyroid normal, trachea midline, no adenopathy. Heart--normal S1 and S2. No murmurs, rubs or gallops. Lungs-- crackles at the bases bilaterally. No respiratory distress, no accessory muscle use. Abdomen--normal bowel sounds and soft. Nontender. Nondistended. Obese Extremities--3+ bilateral pretibial pitting edema Dermatologic--multiple ecchymoses on upper and lower extremities. Multiple small lacerations right lower extremity greater than left Neurologic--cranial nerves II through XII grossly intact. Rheumatologic--limited exam Psychiatric--normal affect. Results & Data Results & Data ([facility]) Vital Signs (Past 12 Hours) Vital Signs Temp Pulse Pulse Resp BP BP Pulse Ox 10/17/20 05:32 103 H 18 118/64 97 10/17/20 04:35 110 H 20 117/63 100 10/17/20 03:37 98.2 F 105 H 20 131/72 131/72 4 L Laboratory Results Laboratory Results WBC 7.03 K/uL (4.8-10.8) 10/17/20 03:28 RBC 2.79 M/uL (4.7-6.1) L 10/17/20 03:28 Hgb 8.2 g/dL (14.0-18.0) L 10/17/20 03:28 Hct 26.0 % (42-52) L 10/17/20 03:28 MCV 93.2 fL (80-100) 10/17/20 03:28 MCH 29.4 pg (25-34) 10/17/20 03:28 MCHC 31.5 g/dL (32-36) L 10/17/20 03:28 RDW Std Deviation 54.8 fL (36.4-46.3) H 10/17/20 03:28 RDW Coeff of Jose C 15.9 % (11.5-14.5) H 10/17/20 03:28 Plt Count 179 K/uL (130-400) 10/17/20 03:28 MPV 10.7 fL (7.4-10.4) H 10/17/20 03:28 Immature Gran % (Auto) 0.1 % 10/17/20 03:28 Neut % (Auto) 81.8 % 10/17/20 03:28 Lymph % (Auto) 5.7 % 10/17/20 03:28 Edwards % (Auto) 11.5 % 10/17/20 03:28 Eos % (Auto) 0.6 % 10/17/20 03:28 Baso % (Auto) 0.3 % 10/17/20 03:28 Neut # (Auto) 5.75 K/uL (1.4-6.5) 10/17/20 03:28 Lymph # (Auto) 0.40 K/uL (1.2-3.4) L 10/17/20 03:28 Edwards # (Auto) 0.81 K/uL (0.11-0.59) H 10/17/20 03:28 Eos # (Auto) 0.04 K/uL (0-0.5) 10/17/20 03:28 Baso # (Auto) 0.02 K/uL (0-0.2) 10/17/20 03:28 Immature Gran # (Auto) 0.01 K/uL (0.00-0.02) 10/17/20 03:28 Sodium 136 mmol/L (136-145) 10/17/20 03:28 Potassium 5.8 mmol/L (3.5-5.1) H 10/17/20 03:28 Chloride 96 mmol/L (98-107) L 10/17/20 03:28 Carbon Dioxide 24 mmol/L (21-32) 10/17/20 03:28 Anion Gap 16.0 (3-11) H 10/17/20 03:28 BUN 125 mg/dl (7-18) H 10/17/20 03:28 Creatinine 15.50 mg/dl (0.6-1.4) H* 10/17/20 03:28 Est Cr Clr Drug Dosing 4.9 ml/min 10/17/20 03:28 Est GFR ( Amer) 3.0 ml/min 10/17/20 03:28 Est GFR (Non-Af Amer) 2.6 ml/min 10/17/20 03:28 BUN/Creatinine Ratio 8.2 (10-20) L 10/17/20 03:28 Glucose 188 mg/dl (70-99) H 10/17/20 03:28 Calcium 9.3 mg/dl (8.5-10.1) 10/17/20 03:28 Total Bilirubin 1.0 mg/dl (0.2-1) 10/17/20 03:28 AST 127 U/L (15-37) H 10/17/20 03:28 ALT 92 U/L (12-78) H 10/17/20 03:28 Alkaline Phosphatase 108 U/L (45-117) 10/17/20 03:28 Troponin I 0.201 ng/ml (0-0.045) H* 10/17/20 03:28 Total Protein 7.1 gm/dl (6.4-8.2) 10/17/20 03:28 Albumin 3.2 gm/dl (3.4-5.0) L 10/17/20 03:28 Globulin 3.9 gm/dl (2.5-4.0) 10/17/20 03:28 Albumin/Globulin Ratio 0.8 (0.9-2) L 10/17/20 03:28 TSH 15.600 uIu/ml (0.300-4.500) H 10/17/20 03:28 Free T4 1.04 ng/dl (0.8-1.6) 10/17/20 03:28 Code Status & VTE Plan Code Status Full code VTE Prophylaxis Plan VTE Prophylaxis will be ordered: Yes PG Care Time/CCT Total # of Minutes Spent Total Time Spent with Patient: Total time spent is greater than 50% in coordination of care (as documented) at patient's floor/unit and/or counseling patient: Coding Level of Care Code 10164 Initial Inpt Care Lvl 3 Diagnoses Elevated troponin R77.8 Acute hyperkalemia E87.5 ESRD on dialysis N18.6; Z99.2 Atrial fibrillation with RVR I48.91 General weakness R53.1 Hypothyroidism E03.9 Medically noncompliant Z91.19 Chronic blood loss anemia D50.0 Cirrhosis K74.60 Ascites presence: unspecified Hepatic cirrhosis type: unspecified hepatic cirrhosis AVF (arteriovenous fistula) I77.0 Hyperlipidemia LDL goal <70 E78.5 Diabetic peripheral neuropathy E11.42 (1) Cirrhosis Ascites presence: unspecified Hepatic cirrhosis type: unspecified hepatic cirrhosis Qualified Code(s): K74.60 - Unspecified cirrhosis of liver
--- NOTE | 2020-10-17 07:34 | XRay Report ---
SINGLE VIEW CHEST CLINICAL HISTORY: Generalized weakness. FINDINGS: An AP, portable, upright chest radiograph is compared to study dated 10/10/2020. Correlation is made with chest CT dated 10/31/2018. The examination is degraded by portable technique and patient rotation. The heart is enlarged noting atherosclerotic calcification of the thoracic aorta. There is mild pulmonary vascular congestion. An indeterminant 1.3 cm nodular density projects over the righ t upper chest. This was not clearly seen previously. Scarring/atelectasis is noted at the lung bases. No large pleural effusion or pneumothorax is seen. The skeletal structures are osteopenic. The bony thorax is grossly intact. Degenerative change is noted throughout the thoracic spine. IMPRESSION: 1. Cardiomegaly with evidence of congestive failure. 2. No large pleural effusion is identified. 3. A 1.3 cm nodular density projecting over the right upper lobe is new from previous and may be infl ammatory. A follow-up PA and lateral examination is recommended for further assessment. ACT 112: Positive. There are findings on this exam that require communication between the performing entity and the patient following Patient Test Result Information Act ([place] Act 112) guidelines. Electronically signed by: Shayan Gonzalez M.D. 10/17/2020 7:33 AM
--- NOTE | 2020-10-17 08:02 | XRay Report ---
RIGHT KNEE 2 VIEWS CLINICAL HISTORY: Right knee pain. FINDINGS: AP and crosstable lateral views of the right knee are obtained. No prior studies are availa ble for comparison at the time of dictation. The skeletal structures are osteopenic. No fracture is s een. There is mild tricompartmental degenerative joint space narrowing, greatest at the patellofemora l articulation. There are small medial marginal osteophytes as well as patellar enthesophytes. There is a small joint effusion. Indeterminant calcification is suggested within Hoffa's fat pad. There is advanced atherosclerotic calcification of the popliteal artery. Mild soft tissue swelling is noted. IMPRESSION: 1. Mild soft tissue swelling with no acute bony abnormality identified. 2. Osteopenia and degenerative change as above. Electronically signed by: Shayan Gonzalez M.D. 10/17/2020 8:01 AM
[2020-10-17] MEDS ORDERED: LIOTHYRONINE SODIUM 25 MCG TAB PO ONE (10:37)
--- NOTE | 2020-10-17 10:38 | Hospitalist Progress Note ---
Date of Service October 17, 2020 Assessment & Plan (1) Elevated troponin: Elevated troponin/atrial fibrillation with RVR/hypertension- The patient will be admitted to telemetry for serial cardiac enzymes, serial EKG's, cardiac rhythm monitoring and a 2-D echocardiogram with Dopplers. Troponin 0.201 upon admission -- repeat pending EKG with Millie brantley with RVR at 111, right bundle branch block, and worse signs of ischemia in 1, aVL and V6 Continue amlodipine, bumetanide, doxazosin, hydralazine, isosorbide mononitrate and labetalol with hold parameters. Suspect he missed some of his heart rate control medications, along with his dialysis twice --> to have HD this morning (2) Acute hyperkalemia: Potassium 5.8 upon admission, will be corrected with dialysis this morning Dr Gracia on consult -- appreciate assistance (3) ESRD on dialysis: ESRD on HD/medical noncompliance- ESRD on HD needing hemodialysis, since he missed dialysis twice this past week. (4) Atrial fibrillation with RVR: See above.-- suspect secondary to volume overload, however TSH elevated to 15.6 (prior elevated to 17.09 August 2020) and is on 250mcg daily --will increase synthroid to 200+175 for total 375mcg (also suspect some missed doses and incorrectly taking this medication and will need further discussed tomorrow once more cognitively with it) (5) Hypothyroidism: Continue levothyroxine sodium 350 mcg daily TSH elevated -- increased to 375mcg daily and will need further discussion Will add T3 to labs as well -- LOW 1.01-- will order dose of T3 25mcg and schedule 5 mcg daily for tomorrow Rec f/u Endocrinology (6) General weakness: Due to uremia, deconditioning and medical noncompliance and hypothyroidism as above (7) Medically noncompliant: See above (8) 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 Patient seen in ER prior to being taken to ICU (PCU overflow). Endorses difficulty with compliance with HD treatment and is needing one currently. No current complaints other than wanting something to eat/drink. No fever, chills, chest pain. Shortness of breath improved and stable but still with volume overload. No abdominal pain, nausea, vomiting at this time. Review of Systems Review of Systems: The patient denies chest pain, palpitations, cough, sore throat, fevers, chills, sweats, nausea, vomiting, diarrhea , constipation, abdominal pain, pelvic pain, blood in urine or stool, dysuria, urinary frequency or urgency, lightheadedness, dizziness, headache, memory loss, loss of consciousness, focal weakness, numbness or tingling in arms or legs, back or neck pain, or night sweats. The review of systems is otherwise negative other than for that already noted above, and at least 10 systems have been reviewed. Physical Exam Physical Exam: The patient is awake, minimally lethargic, normocephalic and atraumatic, sitting up in bed and in no acute distress. HEENT--PERRL, EOMI, mucous membranes and oropharynx dry. Neck--supple. No JVD. No bruits. Thyroid normal, trachea midline, no adenopathy. Heart--normal S1 and S2. No murmurs, rubs or gallops. Quite breath sounds. Lungs-- crackles at the bases bilaterally, also diminished in the bases. No respiratory distress, no accessory muscle use. Abdomen--normal bowel sounds and soft. Nontender. Nondistended. Obese Extremities--3+ bilateral pretibial pitting edema Dermatologic--multiple ecchymoses on upper and lower extremities. Multiple small lacerations right lower extremity greater than left Neurologic--cranial nerves II through XII grossly intact. Rheumatologic--limited exam Psychiatric--normal affect. Results & Data Results & Data ([facility]) Vital Signs (Past 12 Hours) Vital Signs Temp Pulse Pulse Resp BP BP Pulse Ox 10/17/20 10:00 118 H 18 133/84 96 10/17/20 09:45 99 H 19 126/68 93 10/17/20 09:30 101 H 24 111/43 L 93 10/17/20 09:20 106 H 20 10/17/20 09:15 106 H 18 126/60 10/17/20 09:00 97 H 19 115/68 05/17/21 08:45 106 H 20 119/70 98 10/17/20 08:30 102 H 18 112/60 10/17/20 08:15 94 H 18 119/66 10/17/20 08:00 99 H 17 130/82 100 10/17/20 07:45 101 H 21 128/81 100 10/17/20 07:30 93 H 16 116/63 99 10/17/20 07:15 106 H 17 121/68 99 10/17/20 07:00 113 H 16 125/71 100 10/17/20 06:45 114 H 18 112/59 L 98 10/17/20 05:32 103 H 18 118/64 97 10/17/20 04:35 110 H 20 117/63 100 10/17/20 03:37 36.8 C 105 H 20 131/72 131/72 4 L PG Care Time/CCT Total # of Minutes Spent Total Time Spent with Patient: Total time spent is greater than 50% in coordination of care (as documented) at patient's floor/unit and/or counseling patient: Coding Level of Care Code 64942 Subseq Hosp Care Lvl 3 Diagnoses Elevated troponin R77.8 Acute hyperkalemia E87.5 ESRD on dialysis N18.6; Z99.2 Atrial fibrillation with RVR I48.91 Hypothyroidism E03.9 General weakness R53.1 Medically noncompliant Z91.19 Chronic blood loss anemia D50.0 Cirrhosis K74.60 Ascites presence: unspecified Hepatic cirrhosis type: unspecified hepatic cirrhosis AVF (arteriovenous fistula) I77.0 Hyperlipidemia LDL goal <70 E78.5 Diabetic peripheral neuropathy E11.42 (1) Cirrhosis Ascites presence: unspecified Hepatic cirrhosis type: unspecified hepatic cirrhosis Qualified Code(s): K74.60 - Unspecified cirrhosis of liver
[2020-10-17] MEDS ORDERED: LEVOTHYROXINE SODIUM 200 MCG TABLET PO SCH (10:39)
[2020-10-17] MEDS ORDERED: GLUCOSE 40% GEL 15 GM TUBE PO PRN (10:39)
[2020-10-17] MEDS ORDERED: POLYETHYLENE (MIRALAX) 17 GM PACK PO PRN (10:39)
[2020-10-17] MEDS ORDERED: ONDANSETRON INJ 2 MG/ML 2 ML VIAL IV PRN (10:39)
[2020-10-17] MEDS ORDERED: DEXTROSE 50% 50 ML SYRINGE IV PRN (10:39)
[2020-10-17] MEDS ORDERED: GLUCAGON FOR INJ 1 MG VIAL SQ PRN (10:39)
[2020-10-17] MEDS ORDERED: GLUCOSE 10 TABS/TUBE PO PRN (10:39)
[2020-10-17] MEDS ORDERED: CARBOHYDRATES FOR HYPOGLYCEMIA PO PRN (10:39)
[2020-10-17] MEDS ORDERED: SODIUM CHLORIDE 0.9% 1000ML 1,000 ML IV PRN (11:19)
--- NOTE | 2020-10-17 11:37 | Nephrology Consultation ---
Date of Consultation October 17, 2020 Assessment & Plan (1) ESRD on dialysis: * HD today to correct hyperkalemia and volume overload. Will use 3K bath and attempt 2L UF. No heparin due to h/o GIB * Outpatient HD Rx: [facility] 3hr 45min 2K 2.5Ca Na 135 HCO3 35 Qb 500 Qd 800 F-180NR EDW 92.5 kg * Continue nephrocaps * Recommend low K/HD diet (2) Anemia: * Will provide NEMESIO w/ HD today * Will order iron studies (3) Hypothyroidism: * Suspect poor adherence w/ outpatient medical regimen * Recommend cautious supplementation (4) Medically noncompliant: * Discussed importance of regular outpatient dialysis treatments w/ patient today. He voiced understanding and indicated that he wishes to continue dialysis History of Present Illness Reason for Consultation: ESRD on HD Attending Physician: Hermilo Ashby MD History of Present Illness Mr. Mcintyre is a 80 year-old white male who is seen at the request of Mary De La Garza PA-c to provide inpatient HD during his hospitalization. Medical records in the EMR were reviewed today and are summarized as follows: Mr. 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 He has been on HD since 12/16 ([facility] 3hr 45min 2K 2.5Ca Na 135 HCO3 35 Qb 500 Qd 800 F-180NR EDW 92.5 kg - primary [employer] Dr. Briceno). 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 Mr. Mcintyre refused transportation to his last two dialysis treatments. therapeutic support staff reports that he also refused all of his home medications. He presented to the ED early this morning for evaluation of weakness and dyspnea related to fluid retention. Allergies Allergy/AdvReac Type Severity Reaction Status Date / Time sucralfate [From Carafate] Allergy Mild upset Verified 10/17/20 07:37 dialysis tramadol AdvReac Severe disorented Verified 10/17/20 07:37 ,falling down lorazepam [From Ativan] AdvReac Intermediate unresponsive, Verified 10/17/20 07:37 confusion metformin AdvReac Intermediate CONFUSION Verified 10/17/20 07:37 Home Medications Medication Instructions Recorded Confirmed Type docusate sodium 100 mg capsule 200 mg PO QAM #30 cap 01/19/19 10/17/20 Rx insulin aspart U-100 [Novolog 0 sliding scale dose SUBCUT QID 06/06/19 10/17/20 History U-100 Insulin aspart] cyanocobalamin (vitamin B-12) 1,000 mcg PO HS 08/14/19 10/17/20 History [Vitamin B-12] folic acid 1 mg tablet 1 mg PO QDL #90 tab 04/21/20 10/17/20 Rx ferrous sulfate 325 mg (65 mg 325 mg PO BID #60 tab 05/11/20 10/17/20 Rx iron) tablet,delayed release levothyroxine 200 mcg tablet 200 mcg PO QAM #90 tab 05/11/20 10/17/20 Rx rosuvastatin 20 mg tablet 20 mg PO QPM #90 tab 05/17/20 10/17/20 Rx Renal Caps 1 cap PO QDL 05/20/20 10/17/20 History levothyroxine 150 mcg PO QAM 05/20/20 10/17/20 History labetalol 200 mg tablet 200 mg PO BID #180 tab 05/30/20 10/17/20 Rx amlodipine 10 mg tablet 10 mg PO HS #90 tab 06/15/20 10/17/20 Rx lactulose 30 ml PO DAILY 06/22/20 10/17/20 History Levemir U-100 Insulin 15 unit SUBCUT HS 06/29/20 10/17/20 History doxazosin [Cardura] 1 mg PO QDL 06/29/20 10/17/20 History isosorbide mononitrate 30 mg 30 mg PO QAM #90 tab 07/22/20 10/17/20 Rx tablet,extended release 24 hr pantoprazole 40 mg tablet,delayed 40 mg PO BID #60 tab 08/31/20 10/17/20 Rx release bumetanide 1 mg tablet 2 mg PO BID #120 tab 09/01/20 10/17/20 Rx calcium acetate(phosphat bind) 667 2,001 mg PO TIDM #270 tab 09/02/20 10/17/20 Rx mg tablet hydralazine 50 mg tablet 50 mg PO TIDM #90 tab 09/28/20 10/17/20 Rx gabapentin 100 mg capsule 200 mg PO UD #180 cap 10/11/20 10/17/20 Rx Patient History Medical History (Updated 10/17/20 @ 11:42 by Eugene Busby MD) Acute blood loss anemia Acute hyperkalemia Acute hyperkalemia Acute lower GI bleeding Anxiety and depression Arthritis Asthma AVF (arteriovenous fistula) LEFT ARM Bilateral leg pain BPH (benign prostatic hyperplasia) CAD (coronary artery disease) Chronic blood loss anemia Chronic diastolic congestive heart failure Colon, diverticulosis 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, with long-term current use of insulin COPD (chronic obstructive pulmonary disease) Diabetes mellitus, type 2 Diabetic peripheral neuropathy Dialysis patient [facility] SATURDAY, SATURDAY, SATURDAY GAVE (gastric antral vascular ectasia) GI bleed Hearing difficulty Hyperlipidemia LDL goal <70 Hypertension Hypnic jerks Hypoxia IgG monoclonal gammopathy Memory loss Mild cognitive impairment Mitral regurgitation New onset a-fib Obstructive sleep apnea uses oxygen 2 l nc at hs Occlusion and stenosis of unspecified carotid artery On home oxygen therapy WEARS O2 AT 2L HS Osteoporosis Pulmonary hypertension Secondary hyperparathyroidism of renal origin SOB (shortness of breath) SOB (shortness of breath) Vitamin D deficiency Volume overload Surgical History H/O cardiac catheterization many years ago - over 10 years no stents follow with trung (NO STENTS) H/O hemorrhoidectomy History of colonoscopy History of esophagogastroduodenoscopy (EGD) MULTIPLE History of tooth extraction Hx of cholecystectomy Family History Unknown Myocardial infarction Mother Diabetes Breast cancer late 70s Hypertension Gallbladder disease Father Diabetes Hypertension Brother Diabetes Kidney disease Hypertension Denies family history of Ovarian cancer Prostate cancer Lung cancer Colorectal cancer Social History Smoking Status: Former smoker Tobacco Type: Cigarettes packs per day: 0.5; Years Smoked: 5; Number of Years Since Quit: 20; Second Hand Exposure: No; Hx Alcohol Use: No Hx Substance Use: No Preferred Language: Bangladeshi Communication Ability: Effective Visual Impairment: No Limitations Hearing Ability: Hard of Hearing Addictions Counselor Assistant Required: No Beliefs That Will Affect Care: None marital status: Current Living Situation: Spouse Current Living Situation Comment: Lives w/ , Isabel Mcintyre current occupational status: disabled current occupation: works part-time at [employer] How many Children do You have: 4 other: 4 children Feels Safe at Home: Yes Childhood Exposure to Second-Hand Smoke: No Diet Comment: regular caffeine: Yes during the past year weight has: remained stable Dental Care, Regularly: Yes Physical Activity Frequency: Does not Exercise Physical Activity Frequency Comment: limited due physical condition Seatbelt Use: sometimes Sunscreen Use: No Assistive Devices: None Review of Systems Constitutional: + weakness; no fever Eyes: no problem reported Ear, Nose, Mouth, Throat: no problem reported Respiratory: + dyspnea Cardiovascular: no chest pain and no palpitations Gastrointestinal: no abdominal pain, no nausea and no diarrhea/loose stools Musculoskeletal: no back pain Integumentary: no rash Neurologic: no falls, no dizziness and no confusion Physical Exam Constitutional: + frail appearing; not in distress Eyes: PERRL, conjunctivae normal, anicteric sclerae ENMT: external ear and nose normal, oropharynx normal Neck: trachea midline, no thyromegaly Respiratory: normal respiratory effort Auscultation: + rales Cardiovascular: Rate/Rhythm: + tachycardic Heart Sounds: no cardiac rub Extremities: + edema (1+ pretibial pitting edema) and + AV fistula (+ bruit) Gastrointestinal (Abdomen): normal bowel sounds, soft, nontender, no hepatosplenomegaly Musculoskeletal: Extremities: no cyanosis Skin: no rashes, warm and dry Neurologic: awake Results & Data ([facility]) Vital Signs (Past 12 Hours) Vital Signs Temp Pulse Pulse Resp BP BP Pulse Ox 10/17/20 10:39 100 H 10/17/20 10:20 36.6 C 98 H 22 123/76 96 10/17/20 10:00 118 H 18 133/84 96 10/17/20 09:45 99 H 19 126/68 93 10/17/20 09:30 101 H 24 111/43 L 93 10/17/20 09:20 106 H 20 10/17/20 09:15 106 H 18 126/60 10/17/20 09:00 97 H 19 115/68 10/17/20 08:45 106 H 20 119/70 98 10/17/20 08:30 102 H 18 112/60 10/17/20 08:15 94 H 18 119/66 10/17/20 08:00 99 H 17 130/82 100 10/17/20 07:45 101 H 21 128/81 100 10/17/20 07:30 93 H 16 116/63 99 10/17/20 07:15 106 H 17 121/68 99 10/17/20 07:00 113 H 16 125/71 100 10/17/20 06:45 114 H 18 112/59 L 98 10/17/20 05:32 103 H 18 118/64 97 10/17/20 04:35 110 H 20 117/63 100 10/17/20 03:37 36.8 C 105 H 20 131/72 131/72 4 L Laboratory Tests 08/17/20 07:53 WBC 2.97 L Hgb 8.5 L Hct 26.2 L Plt Count 101 L Laboratory Tests 10/17/20 10/17/20 10/17/20 03:28 03:28 10:53 Sodium 136 Potassium 5.8 H Chloride 96 L Carbon Dioxide 24 BUN 125 H Creatinine 15.50 H* Glucose 188 H AST 127 H ALT 92 H Troponin I 0.201 H* 0.176 H* Albumin 3.2 L TSH 15.600 H Free T4 1.04 Free T3 1.01 L PG Care Time/CCT Total # of Minutes Spent Total Time Spent with Patient: Total time spent is greater than 50% in coordination of care (as documented) at patient's floor/unit and/or counseling patient: Coding Level of Care Code 85037 Inpt Consult Level 5 Diagnoses ESRD on dialysis N18.6; Z99.2 Anemia D64.9 Hypothyroidism E03.9 Medically noncompliant Z91.19
[2020-10-17] MEDS ORDERED: EPOETIN ALFA 10,000 UNITS/ML VIAL IV ONE (11:45)
[2020-10-17] MEDS: ISOSORBIDE MONO EXTENDED REL 30 MG TABCR PO SCH (12:02)
[2020-10-17] MEDS: DOCUSATE SODIUM 100 MG CAP PO SCH (12:02)
[2020-10-17] MEDS: DOXAZOSIN MESYLATE 1 MG TAB PO SCH (12:02)
[2020-10-17] MEDS: FERROUS SULFATE 325 MG TAB PO SCH ×2 (12:03→20:28)
[2020-10-17] MEDS: BUMETANIDE 1 MG TAB PO SCH ×2 (12:03→20:28)
[2020-10-17] MEDS: FOLIC ACID 1 MG TAB PO SCH (12:03)
[2020-10-17] MEDS: NEPHROCAPS PO SCH (12:03)
[2020-10-17] MEDS: LACTULOSE SYRUP 20 GM/30 ML UDC PO SCH (12:04)
[2020-10-17] MEDS: GABAPENTIN 100 MG CAP PO SCH (12:04)
[2020-10-17] MEDS: PANTOprazole 40 MG TAB PO SCH ×2 (12:04→20:28)
[2020-10-17] MEDS: INSULIN ASPART 100 UNITS/ML 3 ML PEN SC SCH ×3 (12:08→22:24)
[2020-10-17] MEDS: HEPARIN SOD 5,000 UNIT/0.5 ML VIAL SQ SCH ×3 (12:18→23:22)
[2020-10-17] MEDS: LABETALOL HCL 200 MG TAB PO SCH ×2 (12:18→20:28)
[2020-10-17] MEDS: hydrALAZINE TAB 50 MG TAB PO SCH ×3 (12:18→16:58)
[2020-10-17] MEDS: CALCIUM ACETATE 667 MG CAP/TAB PO SCH ×2 (14:06→16:58)
[2020-10-17] MEDS ORDERED: ACETAMINOPHEN 325 MG TAB PO PRN (14:06)
--- NOTE | 2020-10-17 17:57 | Electrocardiogram Report ---
Test Reason : Blood Pressure : / mmHG Vent. Rate : 111 BPM Atrial Rate : 111 BPM P-R Int : 000 ms QRS Dur : 164 ms QT Int : 414 ms P-R-T Axes : 000 117 254 degrees QTc Int : 563 ms Atrial fibrillation with rapid ventricular response Right bundle branch block T wave abnormality, consider inferolateral ischemia Abnormal ECG When compared with ECG of 10-OCT-2020 23:55, No significant change was found Confirmed by Grabiel Farris ([id number]) on 10/17/2020 5:57:02 PM Referred By: REFERRED SELF Confirmed By:Bruce Farris
[2020-10-17] MEDS ORDERED: ROSUVASTATIN CALCIUM 20 MG TAB PO SCH (21:00)
[2020-10-17] MEDS ORDERED: INSULIN DETEMIR FLEXPEN/FLEX TOUCH 100 UNITS/ML 3ML SC SCH (21:00)
[2020-10-17] MEDS ORDERED: CYANOCOBALAMIN 500 MCG TABLET (VITAMIN B-12) PO SCH (21:00)
[2020-10-17] MEDS ORDERED: amLODIPine BESYLATE 5 MG TAB PO SCH (21:00)
[2020-10-17] MEDS ORDERED: GABAPENTIN 100 MG CAP PO SCH (21:00)
[2020-10-17 21:42] LABS: Appearance Urine Slightly Cloudy (Clear); Bilirubin Urine 1+ (Negative); Blood Urine 3+ (Negative); Color Urine Amber; Glucose Urine UA Negative (Negative); Ketones Urine Trace (Negative); Leukocyte Esterase Urine 3+ (Negative); Nitrite Urine Negative (Negative); Protein Urine 3+ (Negative); Urobilinogen Urine Negative (Negative)
[2020-10-17 21:59] LABS: Epithelial Cell Urine 0-5 /lpf (0-5); RBC Urine >30 /hpf (0-4)
[2020-10-17 22:02] LABS: Bacteria Urine Negative (Negative)
[2020-10-18 02:19] LABS: Basophils # (auto) 0.01 K/uL (0-0.2); Basophils % (auto) 0.1 %; Eosinophils # (auto) 0.01 K/uL (0-0.5); Eosinophils % (auto) 0.1 %; Hematocrit (blood only) 23.5 % (42-52); Hemoglobin 7.4 g/dL (14.0-18.0); Immature Granulocytes # (auto) 0.02 K/uL (0.00-0.02); Immature Granulocytes % (auto) 0.2 %; Lymphocytes # (auto) 0.62 K/uL (1.2-3.4); Mean Corpuscular Hemoglobin 29.7 pg (25-34); Mean Corpuscular Hgb Conc 31.5 g/dL (32-36); Mean Corpuscular Volume 94.4 fL (80-100); Monocytes # (auto) 0.52 K/uL (0.11-0.59); Monocytes % (auto) 5.9 %; Neutrophils # (auto) 7.64 K/uL (1.4-6.5); Neutrophils % (auto) 86.7 %; Platelet Count 186 K/uL (130-400); RDW Coefficient of Variation 15.8 % (11.5-14.5); RDW Standard Deviation 54.7 fL (36.4-46.3); Red Blood Count 2.49 M/uL (4.7-6.1); White Blood Count 8.82 K/uL (4.8-10.8)
[2020-10-18 02:44] LABS: RBC Morphology Unremarkable
[2020-10-18 02:54] LABS: Albumin Globulin Ratio 0.8 (0.9-2); Albumin Level 2.7 gm/dl (3.4-5.0); BUN Creatinine Ratio 7.4 (10-20); Bilirubin,Total 0.8 mg/dl (0.2-1); Calcium 8.9 mg/dl (8.5-10.1); Creatinine Clr Calc Pharmacy 7.6 ml/min; Est GFR (African American) 5.3 ml/min; Est GFR (Non-African American) 4.6 ml/min; Ferritin 672.9 ng/ml (8-388); Globulin 3.5 gm/dl (2.5-4.0); Magnesium 2.2 mg/dl (1.8-2.4); Potassium 4.9 mmol/L (3.5-5.1); Total Protein 6.2 gm/dl (6.4-8.2)
[2020-10-18] MEDS: HEPARIN SOD 5,000 UNIT/0.5 ML VIAL SQ SCH ×3 (05:42→20:37)
[2020-10-18] MEDS ORDERED: LEVOTHYROXINE SODIUM 175 MCG TABLET PO SCH (06:30)
[2020-10-18 07:13] LABS: Estimated Average Glucose 160 mg/dl; Hemoglobin A1C 7.2 % (4.5-5.6)
[2020-10-18] MEDS: DOCUSATE SODIUM 100 MG CAP PO SCH (08:06)
[2020-10-18] MEDS: hydrALAZINE TAB 50 MG TAB PO SCH ×2 (08:06→13:21)
[2020-10-18] MEDS: CALCIUM ACETATE 667 MG CAP/TAB PO SCH ×2 (08:06→13:21)
[2020-10-18] MEDS: FERROUS SULFATE 325 MG TAB PO SCH (08:07)
[2020-10-18] MEDS: PANTOprazole 40 MG TAB PO SCH (08:07)
[2020-10-18] MEDS: BUMETANIDE 1 MG TAB PO SCH (08:07)
[2020-10-18] MEDS: LACTULOSE SYRUP 20 GM/30 ML UDC PO SCH (08:07)
[2020-10-18] MEDS: GABAPENTIN 100 MG CAP PO SCH (08:08)
[2020-10-18] MEDS: ISOSORBIDE MONO EXTENDED REL 30 MG TABCR PO SCH (08:08)
[2020-10-18] MEDS: INSULIN ASPART 100 UNITS/ML 3 ML PEN SC SCH ×4 (08:09→23:27)
[2020-10-18] MEDS: LABETALOL HCL 200 MG TAB PO SCH (08:27)
[2020-10-18] MEDS ORDERED: SODIUM CHLORIDE 0.9% 250 ML IV PRN (08:37)
--- NOTE | 2020-10-18 08:46 | Hospitalist Progress Note ---
Date of Service October 18, 2020 Assessment & Plan (1) Metabolic encephalopathy: Admitted for elevated troponin/atrial fibrillation with RVR/hypertension/volume overload after missing HD twice this past week (along with medications possibly). Initially with anion gap 16, currently 12 Troponin 0.201 on admission --> down to 0.176 then trending up --> 0.236, 0.262, .280 -- will continue to trend. Suspect some elevation secondary to volume overload/demand from afib/RVR and anemia as well * --> EKG notes T wave abn, consider inferolateral ischemia. Will repeat daily as volume pulled off/anemia corrected * ECHO pending * Has been afib with rates 90-100s. * Continued on amlodipine, bumetanide, doxazosin, hydralazine, isosorbide mononitrate and labetalol with hold parameters. Had HD on 10/17 for 1.5L -- cut short due to agitation * Repeated again 10/18 for additional 2L * Nephrology following * CT Head today for confusion negative for acute process * CXR obtained for concerns for aspiration given choking after pills returning from dialysis (per has been happening for past week with meals, along with increase need for O2 whereas he typically was wearing only at night. in addition "purple" sputum reported day before yesterday 10/16 possibly hemoptysis vs Klebsiella?) * CXR with minimal LEFT basilar opacity, no lobar consolidation. Trace L pleural effusion. Interval improvement in pulmonary edema. R lung nodular denisty assessed on subsequent exams to ensure resolution * Started on Unasyn for aspiration pneumonia * Duonebs prn * Supplemental O2 as needed (on 2L at night but using more frequently) --- currently 91% on 2L * -- will hold off on CT for PE just yet given not tachypneic, but consider. Would need surgery consultation/IVC filter given inability for anticoagulation. * --> Will get Venous Dopplers to r/o DVT Made NPO except chips/sips * Speech eval pending (per has had swallowing study in past but unsure of any findings but per speech prior in 2016 not great) * --> Plans for video swallow tomorrow at 11:30 and will continue NPO * --> Holding oral medications as able and will place on protonix BID IVP and bumex IV BID, and add on IV BP medications as needed however has been hypotensive Ammonia 33 from 39 (got lactulose) BCx pending Lactic wnl UA with staph species (no symptoms reported) -- not currently treating (hx ucxs with alpha strep not enterococcus) Hypothyroidism contributing to afib/rvr/volume overload/confusion * under treated/not taking medications properly * has been on 350mcg daily with last TSH 17 in August without adjustment and again elevated to 15.9 during admission with T3 low 1.01 * --> Discussion with revealed Darnell takes this medication in the morning "on an empty stomach" but with the rest of his pills. Discussed he needs to take this separately prior to other medications for this to be effective. Given PO T3 and scheduled 5mg daily for today as well. --> Continued on 350mcg levothyroxine for now but suspect less needs once taking properly. Anemia * Chronic. 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 No CP reported however EKG w concerns for inferolateral ischemia. ECHO pending * Continue to trend troponin as pulling fluid off (3) Acute hyperkalemia: * Potassium 5.8 upon admission, due to missed HD x 2 --> corrected with dialysis * BMP in AM (4) ESRD on dialysis: * ESRD on HD/medical noncompliance- * ESRD on HD needing hemodialysis, since he missed dialysis twice this past week. (5) Atrial fibrillation with RVR: * See above.-- suspect secondary to volume overload,as well as hypothyroidism * TSH elevated to 15.6 (prior elevated to 17.09 August 2020) and is on 350mcg daily (not taking correctly) * Telemetry - Rates 90-100s afib on monitor. 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 * RUQ US pending * Monitor in AM (11) AVF (arteriovenous fistula): * AV fistula in left arm- * Noted for dialysis (12) Hyperlipidemia LDL goal <70: * Continue rosuvastatin once taking PO (13) Diabetic peripheral neuropathy: * Continue gabapentin once taking PO Diabetes II A1c 7.2 (up from 6.04 August 2020) Levemir 15u HS BSG ACHS ISS while inpatient Pharmacy consulted for glycemic control Dispo: continued inpatient stay Video swallow in AM Admission and Anticipated Discharge Date Admission Date: October 17, 2020 Subjective Patient had HD yesterday but was cut short, 1.5L, due to agitation and pulling out catheter. Hgb low today and giving 1u PRBC with Venofer while inpatient and HD today. Slightly confused this morning but agreeable to HD. Returned from HD and took pills -- choking. Did not endorse shortness of breath but after discussion with on telephone this afternoon, she notes he had been choking with meals for the past week. He denies shortness of breath. Requesting to see his as he "just saw her". Denies pain at this time. Discussion with : She states Darnell has been utilizing oxygen more frequently than at night and using during the day now. Also states chronic cough but noted he had coughed up "purple" the day before yesterday and is typically just phlegm. COVID vaccinated -- 09/02 and 09/23. Discussed levothyroxine and when/how he takes this medication -- states he takes it with the rest of his pills, 150mcg +200mcg. Discussed this is ineffective and not adequately treating his hypothyroidism and likely contributing to weight gain/fatigue/confusion/mental fog/etc. She has made note to have him take these medications. Discussed visitation and palliative medicine consultation for goals of care -- Isabel states Mr Mcintyre some days when it isn't HD day wakes up raring to go, and others he refuses. He remains full code for this time being pending further discussion. Review of Systems Review of Systems: All systems reviewed & are unremarkable except as noted in HPI & below Physical Exam Physical Exam: The patient is awake, laying flat in bed, coughing. NAD but ill appearing. Confused. Alert but not oriented HEENT--PERRL, EOMI, mucous membranes and oropharynx dry. hard of hearing Neck--supple. No JVD. No bruits. Thyroid normal, trachea midline, no adenopathy. Heart--irregularly irregular (rate 105bpm), normal S1 and S2. No murmurs, rubs or gallops. Quite breath sounds. Lungs-- crackles at the bases bilaterally, RUL, also diminished in the bases bilaterally No respiratory distress, no accessory muscle use. Not tachypneic Abdomen--normal bowel sounds and soft. Nontender. Nondistended. Obese Extremities--1+ bilateral pretibial pitting edema Dermatologic--multiple ecchymoses on upper and lower extremities. Multiple small lacerations right lower extremity greater than left Neurologic--cranial nerves II through XII grossly intact. Alert but not oriented to place/time/event Psychiatric--irritable Results & Data Results & Data ([facility]) Vital Signs (Past 12 Hours) Vital Signs Temp Pulse Pulse Resp BP BP Pulse Ox 10/18/20 07:10 36.4 C L 109 H 19 121/66 90 10/18/20 03:08 36.3 C L 100 H 16 113/63 90 10/18/20 00:38 37.1 C 102 H 18 114/82 92 10/18/20 00:00 102 H 10/17/20 23:19 105 H 24 106/55 L 91 10/17/20 22:00 115 H 23 109/54 L 94 10/17/20 21:00 114 H 25 H 111/70 98 Laboratory Results 10/18/20 10/18/20 10/18/20 Range/Units 14:39 14:39 14:39 WBC (4.8-10.8) K/uL RBC (4.7-6.1) M/uL Hgb (14.0-18.0) g/dL Hct (42-52) % MCV (80-100) fL MCH (25-34) pg MCHC (32-36) g/dL RDW Std Deviation (36.4-46.3) fL RDW Coeff of Jose C (11.5-14.5) % Plt Count (130-400) K/uL MPV (7.4-10.4) fL Immature Gran % (Auto) % Neut % (Auto) % Lymph % (Auto) % [place] % (Auto) % Eos % (Auto) % Baso % (Auto) % Neut # (Auto) (1.4-6.5) K/uL Lymph # (Auto) (1.2-3.4) K/uL [place] # (Auto) (0.11-0.59) K/uL Eos # (Auto) (0-0.5) K/uL Baso # (Auto) (0-0.2) K/uL Immature Gran # (Auto) (0.00-0.02) K/uL RBC Morphology VBG pH Pending VBG pCO2 Pending VBG pO2 Pending VBG HCO3 Pending VBG O2 Saturation Pending VBG Base Excess Pending Sodium (136-145) mmol/L Potassium (3.5-5.1) mmol/L Chloride (98-107) mmol/L Carbon Dioxide (21-32) mmol/L Anion Gap (3-11) BUN (7-18) mg/dl Creatinine (0.6-1.4) mg/dl Est Cr Clr Drug Dosing ml/min Est GFR ( Amer) ml/min Est GFR (Non-Af Amer) ml/min BUN/Creatinine Ratio (10-20) Glucose (70-99) mg/dl POC Glucose (70-99) mg/dl Estimat Average Glucose mg/dl Hemoglobin A1c (4.5-5.6) % Lactate Pending Calcium (8.5-10.1) mg/dl Magnesium (1.8-2.4) mg/dl Iron (35-175) mcg/dl Transferrin (200-360) mg/dl Transferrin % Sat (20-50) % Ferritin (8-388) ng/ml Total Bilirubin (0.2-1) mg/dl AST (15-37) U/L ALT (12-78) U/L Alkaline Phosphatase (45-117) U/L Ammonia Pending (11-32) umol/L Troponin I (0-0.045) ng/ml Total Protein (6.4-8.2) gm/dl Albumin (3.4-5.0) gm/dl Globulin (2.5-4.0) gm/dl Albumin/Globulin Ratio (0.9-2) Urine Color Urine Appearance (Clear) Urine pH (4.5-7.5) Ur Specific [place] (1.000-1.030) Urine Protein (Negative) Urine Glucose (UA) (Negative) Urine Ketones (Negative) Urine Blood (Negative) Urine Nitrite (Negative) Urine Bilirubin (Negative) Urine Urobilinogen (Negative) Ur Leukocyte Esterase (Negative) Urine RBC (0-4) /hpf Urine WBC (0-5) /hpf Ur Epithelial Cells (0-5) /lpf Urine Bacteria (Negative) Lyme Disease IgG Ab (Negative) Lyme Disease IgM Ab (Negative) Blood Type Antibody Screen Crossmatch 10/18/20 10/18/20 10/18/20 Range/Units 14:39 14:39 13:26 WBC 9.90 (4.8-10.8) K/uL RBC 2.87 L (4.7-6.1) M/uL Hgb 8.6 L (14.0-18.0) g/dL Hct 27.5 L (42-52) % MCV 95.8 (80-100) fL MCH 30.0 (25-34) pg MCHC 31.3 L (32-36) g/dL RDW Std Deviation 56.0 H (36.4-46.3) fL RDW Coeff of Jose C 15.9 H (11.5-14.5) % Plt Count 216 (130-400) K/uL MPV 10.7 H (7.4-10.4) fL Immature Gran % (Auto) % Neut % (Auto) % Lymph % (Auto) % [place] % (Auto) % Eos % (Auto) % Baso % (Auto) % Neut # (Auto) (1.4-6.5) K/uL Lymph # (Auto) (1.2-3.4) K/uL [place] # (Auto) (0.11-0.59) K/uL Eos # (Auto) (0-0.5) K/uL Baso # (Auto) (0-0.2) K/uL Immature Gran # (Auto) (0.00-0.02) K/uL RBC Morphology VBG pH VBG pCO2 VBG pO2 VBG HCO3 VBG O2 Saturation VBG Base Excess Sodium Pending (136-145) mmol/L Potassium Pending (3.5-5.1) mmol/L Chloride Pending (98-107) mmol/L Carbon Dioxide Pending (21-32) mmol/L Anion Gap Pending (3-11) BUN Pending (7-18) mg/dl Creatinine Pending (0.6-1.4) mg/dl Est Cr Clr Drug Dosing Pending ml/min Est GFR ( Amer) Pending ml/min Est GFR (Non-Af Amer) Pending ml/min BUN/Creatinine Ratio Pending (10-20) Glucose Pending (70-99) mg/dl POC Glucose 102 H (70-99) mg/dl Estimat Average Glucose mg/dl Hemoglobin A1c (4.5-5.6) % Lactate Calcium Pending (8.5-10.1) mg/dl Magnesium (1.8-2.4) mg/dl Iron (35-175) mcg/dl Transferrin (200-360) mg/dl Transferrin % Sat (20-50) % Ferritin (8-388) ng/ml Total Bilirubin Pending (0.2-1) mg/dl AST Pending (15-37) U/L ALT Pending (12-78) U/L Alkaline Phosphatase Pending (45-117) U/L Ammonia (11-32) umol/L Troponin I (0-0.045) ng/ml Total Protein Pending (6.4-8.2) gm/dl Albumin Pending (3.4-5.0) gm/dl Globulin Pending (2.5-4.0) gm/dl Albumin/Globulin Ratio Pending (0.9-2) Urine Color Urine Appearance (Clear) Urine pH (4.5-7.5) Ur Specific [place] (1.000-1.030) Urine Protein (Negative) Urine Glucose (UA) (Negative) Urine Ketones (Negative) Urine Blood (Negative) Urine Nitrite (Negative) Urine Bilirubin (Negative) Urine Urobilinogen (Negative) Ur Leukocyte Esterase (Negative) Urine RBC (0-4) /hpf Urine WBC (0-5) /hpf Ur Epithelial Cells (0-5) /lpf Urine Bacteria (Negative) Lyme Disease IgG Ab (Negative) Lyme Disease IgM Ab (Negative) Blood Type Antibody Screen Crossmatch 10/18/20 10/18/20 10/18/20 Range/Units 10:07 10:01 10:01 WBC (4.8-10.8) K/uL RBC (4.7-6.1) M/uL Hgb (14.0-18.0) g/dL Hct (42-52) % MCV (80-100) fL MCH (25-34) pg MCHC (32-36) g/dL RDW Std Deviation (36.4-46.3) fL RDW Coeff of Jose C (11.5-14.5) % Plt Count (130-400) K/uL MPV (7.4-10.4) fL Immature Gran % (Auto) % Neut % (Auto) % Lymph % (Auto) % [place] % (Auto) % Eos % (Auto) % Baso % (Auto) % Neut # (Auto) (1.4-6.5) K/uL Lymph # (Auto) (1.2-3.4) K/uL [place] # (Auto) (0.11-0.59) K/uL Eos # (Auto) (0-0.5) K/uL Baso # (Auto) (0-0.2) K/uL Immature Gran # (Auto) (0.00-0.02) K/uL RBC Morphology VBG pH VBG pCO2 VBG pO2 VBG HCO3 VBG O2 Saturation VBG Base Excess Sodium (136-145) mmol/L Potassium (3.5-5.1) mmol/L Chloride (98-107) mmol/L Carbon Dioxide (21-32) mmol/L Anion Gap (3-11) BUN (7-18) mg/dl Creatinine (0.6-1.4) mg/dl Est Cr Clr Drug Dosing ml/min Est GFR ( Amer) ml/min Est GFR (Non-Af Amer) ml/min BUN/Creatinine Ratio (10-20) Glucose (70-99) mg/dl POC Glucose (70-99) mg/dl Estimat Average Glucose mg/dl Hemoglobin A1c (4.5-5.6) % Lactate Calcium (8.5-10.1) mg/dl Magnesium (1.8-2.4) mg/dl Iron (35-175) mcg/dl Transferrin (200-360) mg/dl Transferrin % Sat (20-50) % Ferritin (8-388) ng/ml Total Bilirubin (0.2-1) mg/dl AST (15-37) U/L ALT (12-78) U/L Alkaline Phosphatase (45-117) U/L Ammonia (11-32) umol/L Troponin I 0.280 H* (0-0.045) ng/ml Total Protein (6.4-8.2) gm/dl Albumin (3.4-5.0) gm/dl Globulin (2.5-4.0) gm/dl Albumin/Globulin Ratio (0.9-2) Urine Color Urine Appearance (Clear) Urine pH (4.5-7.5) Ur Specific [place] (1.000-1.030) Urine Protein (Negative) Urine Glucose (UA) (Negative) Urine Ketones (Negative) Urine Blood (Negative) Urine Nitrite (Negative) Urine Bilirubin (Negative) Urine Urobilinogen (Negative) Ur Leukocyte Esterase (Negative) Urine RBC (0-4) /hpf Urine WBC (0-5) /hpf Ur Epithelial Cells (0-5) /lpf Urine Bacteria (Negative) Lyme Disease IgG Ab Negative (Negative) Lyme Disease IgM Ab Negative (Negative) Blood Type B Positive Antibody Screen NEGATIVE Crossmatch See Detail 10/18/20 10/18/20 10/18/20 Range/Units 07:35 02:09 02:09 WBC (4.8-10.8) K/uL RBC (4.7-6.1) M/uL Hgb (14.0-18.0) g/dL Hct (42-52) % MCV (80-100) fL MCH (25-34) pg MCHC (32-36) g/dL RDW Std Deviation (36.4-46.3) fL RDW Coeff of Jose C (11.5-14.5) % Plt Count (130-400) K/uL MPV (7.4-10.4) fL Immature Gran % (Auto) % Neut % (Auto) % Lymph % (Auto) % [place] % (Auto) % Eos % (Auto) % Baso % (Auto) % Neut # (Auto) (1.4-6.5) K/uL Lymph # (Auto) (1.2-3.4) K/uL [place] # (Auto) (0.11-0.59) K/uL Eos # (Auto) (0-0.5) K/uL Baso # (Auto) (0-0.2) K/uL Immature Gran # (Auto) (0.00-0.02) K/uL RBC Morphology VBG pH VBG pCO2 VBG pO2 VBG HCO3 VBG O2 Saturation VBG Base Excess Sodium 140 (136-145) mmol/L Potassium 4.9 D (3.5-5.1) mmol/L Chloride 103 (98-107) mmol/L Carbon Dioxide 25 (21-32) mmol/L Anion Gap 12.0 H (3-11) BUN 72 H (7-18) mg/dl Creatinine 9.72 H* D (0.6-1.4) mg/dl Est Cr Clr Drug Dosing 7.6 ml/min Est GFR ( Amer) 5.3 ml/min Est GFR (Non-Af Amer) 4.6 ml/min BUN/Creatinine Ratio 7.4 L (10-20) Glucose 117 H (70-99) mg/dl POC Glucose 139 H (70-99) mg/dl Estimat Average Glucose 160 mg/dl Hemoglobin A1c 7.2 H (4.5-5.6) % Lactate Calcium 8.9 (8.5-10.1) mg/dl Magnesium 2.2 (1.8-2.4) mg/dl Iron 14 L (35-175) mcg/dl Transferrin 173 L (200-360) mg/dl Transferrin % Sat 6 L (20-50) % Ferritin 672.9 H (8-388) ng/ml Total Bilirubin 0.8 (0.2-1) mg/dl AST 216 H (15-37) U/L ALT 195 H (12-78) U/L Alkaline Phosphatase 102 (45-117) U/L Ammonia (11-32) umol/L Troponin I (0-0.045) ng/ml Total Protein 6.2 L (6.4-8.2) gm/dl Albumin 2.7 L (3.4-5.0) gm/dl Globulin 3.5 (2.5-4.0) gm/dl Albumin/Globulin Ratio 0.8 L (0.9-2) Urine Color Urine Appearance (Clear) Urine pH (4.5-7.5) Ur Specific [place] (1.000-1.030) Urine Protein (Negative) Urine Glucose (UA) (Negative) Urine Ketones (Negative) Urine Blood (Negative) Urine Nitrite (Negative) Urine Bilirubin (Negative) Urine Urobilinogen (Negative) Ur Leukocyte Esterase (Negative) Urine RBC (0-4) /hpf Urine WBC (0-5) /hpf Ur Epithelial Cells (0-5) /lpf Urine Bacteria (Negative) Lyme Disease IgG Ab (Negative) Lyme Disease IgM Ab (Negative) Blood Type Antibody Screen Crossmatch 10/18/20 10/18/20 10/18/20 Range/Units 02:09 02:09 02:09 WBC 8.82 (4.8-10.8) K/uL RBC 2.49 L (4.7-6.1) M/uL Hgb 7.4 L (14.0-18.0) g/dL Hct 23.5 L (42-52) % MCV 94.4 (80-100) fL MCH 29.7 (25-34) pg MCHC 31.5 L (32-36) g/dL RDW Std Deviation 54.7 H (36.4-46.3) fL RDW Coeff of Jose C 15.8 H (11.5-14.5) % Plt Count 186 (130-400) K/uL MPV 11.0 H (7.4-10.4) fL Immature Gran % (Auto) 0.2 % Neut % (Auto) 86.7 % Lymph % (Auto) 7.0 % [place] % (Auto) 5.9 % Eos % (Auto) 0.1 % Baso % (Auto) 0.1 % Neut # (Auto) 7.64 H (1.4-6.5) K/uL Lymph # (Auto) 0.62 L (1.2-3.4) K/uL [place] # (Auto) 0.52 (0.11-0.59) K/uL Eos # (Auto) 0.01 (0-0.5) K/uL Baso # (Auto) 0.01 (0-0.2) K/uL Immature Gran # (Auto) 0.02 (0.00-0.02) K/uL RBC Morphology Unremarkable VBG pH VBG pCO2 VBG pO2 VBG HCO3 VBG O2 Saturation VBG Base Excess Sodium (136-145) mmol/L Potassium (3.5-5.1) mmol/L Chloride (98-107) mmol/L Carbon Dioxide (21-32) mmol/L Anion Gap (3-11) BUN (7-18) mg/dl Creatinine (0.6-1.4) mg/dl Est Cr Clr Drug Dosing ml/min Est GFR ( Amer) ml/min Est GFR (Non-Af Amer) ml/min BUN/Creatinine Ratio (10-20) Glucose (70-99) mg/dl POC Glucose (70-99) mg/dl Estimat Average Glucose mg/dl Hemoglobin A1c (4.5-5.6) % Lactate Calcium (8.5-10.1) mg/dl Magnesium (1.8-2.4) mg/dl Iron (35-175) mcg/dl Transferrin (200-360) mg/dl Transferrin % Sat (20-50) % Ferritin (8-388) ng/ml Total Bilirubin (0.2-1) mg/dl AST (15-37) U/L ALT (12-78) U/L Alkaline Phosphatase (45-117) U/L Ammonia 39.0 H (11-32) umol/L Troponin I 0.262 H* (0-0.045) ng/ml Total Protein (6.4-8.2) gm/dl Albumin (3.4-5.0) gm/dl Globulin (2.5-4.0) gm/dl Albumin/Globulin Ratio (0.9-2) Urine Color Urine Appearance (Clear) Urine pH (4.5-7.5) Ur Specific [place] (1.000-1.030) Urine Protein (Negative) Urine Glucose (UA) (Negative) Urine Ketones (Negative) Urine Blood (Negative) Urine Nitrite (Negative) Urine Bilirubin (Negative) Urine Urobilinogen (Negative) Ur Leukocyte Esterase (Negative) Urine RBC (0-4) /hpf Urine WBC (0-5) /hpf Ur Epithelial Cells (0-5) /lpf Urine Bacteria (Negative) Lyme Disease IgG Ab (Negative) Lyme Disease IgM Ab (Negative) Blood Type Antibody Screen Crossmatch 10/17/20 10/17/20 10/17/20 Range/Units 21:19 20:51 20:16 WBC (4.8-10.8) K/uL RBC (4.7-6.1) M/uL Hgb (14.0-18.0) g/dL Hct (42-52) % MCV (80-100) fL MCH (25-34) pg MCHC (32-36) g/dL RDW Std Deviation (36.4-46.3) fL RDW Coeff of Jose C (11.5-14.5) % Plt Count (130-400) K/uL MPV (7.4-10.4) fL Immature Gran % (Auto) % Neut % (Auto) % Lymph % (Auto) % [place] % (Auto) % Eos % (Auto) % Baso % (Auto) % Neut # (Auto) (1.4-6.5) K/uL Lymph # (Auto) (1.2-3.4) K/uL [place] # (Auto) (0.11-0.59) K/uL Eos # (Auto) (0-0.5) K/uL Baso # (Auto) (0-0.2) K/uL Immature Gran # (Auto) (0.00-0.02) K/uL RBC Morphology VBG pH VBG pCO2 VBG pO2 VBG HCO3 VBG O2 Saturation VBG Base Excess Sodium (136-145) mmol/L Potassium (3.5-5.1) mmol/L Chloride (98-107) mmol/L Carbon Dioxide (21-32) mmol/L Anion Gap (3-11) BUN (7-18) mg/dl Creatinine (0.6-1.4) mg/dl Est Cr Clr Drug Dosing ml/min Est GFR ( Amer) ml/min Est GFR (Non-Af Amer) ml/min BUN/Creatinine Ratio (10-20) Glucose (70-99) mg/dl POC Glucose 109 H (70-99) mg/dl Estimat Average Glucose mg/dl Hemoglobin A1c (4.5-5.6) % Lactate Calcium (8.5-10.1) mg/dl Magnesium (1.8-2.4) mg/dl Iron (35-175) mcg/dl Transferrin (200-360) mg/dl Transferrin % Sat (20-50) % Ferritin (8-388) ng/ml Total Bilirubin (0.2-1) mg/dl AST (15-37) U/L ALT (12-78) U/L Alkaline Phosphatase (45-117) U/L Ammonia (11-32) umol/L Troponin I 0.236 H* (0-0.045) ng/ml Total Protein (6.4-8.2) gm/dl Albumin (3.4-5.0) gm/dl Globulin (2.5-4.0) gm/dl Albumin/Globulin Ratio (0.9-2) Urine Color [place] Urine Appearance Slightly Cloudy (Clear) Urine pH 7.0 (4.5-7.5) Ur Specific [place] 1.020 (1.000-1.030) Urine Protein 3+ H (Negative) Urine Glucose (UA) Negative (Negative) Urine Ketones Trace H (Negative) Urine Blood 3+ H (Negative) Urine Nitrite Negative (Negative) Urine Bilirubin 1+ H (Negative) Urine Urobilinogen Negative (Negative) Ur Leukocyte Esterase 3+ H (Negative) Urine RBC >30 H (0-4) /hpf Urine WBC 10-30 H (0-5) /hpf Ur Epithelial Cells 0-5 (0-5) /lpf Urine Bacteria Negative (Negative) Lyme Disease IgG Ab (Negative) Lyme Disease IgM Ab (Negative) Blood Type Antibody Screen Crossmatch 10/17/20 Range/Units 15:26 WBC (4.8-10.8) K/uL RBC (4.7-6.1) M/uL Hgb (14.0-18.0) g/dL Hct (42-52) % MCV (80-100) fL MCH (25-34) pg MCHC (32-36) g/dL RDW Std Deviation (36.4-46.3) fL RDW Coeff of Jose C (11.5-14.5) % Plt Count (130-400) K/uL MPV (7.4-10.4) fL Immature Gran % (Auto) % Neut % (Auto) % Lymph % (Auto) % [place] % (Auto) % Eos % (Auto) % Baso % (Auto) % Neut # (Auto) (1.4-6.5) K/uL Lymph # (Auto) (1.2-3.4) K/uL [place] # (Auto) (0.11-0.59) K/uL Eos # (Auto) (0-0.5) K/uL Baso # (Auto) (0-0.2) K/uL Immature Gran # (Auto) (0.00-0.02) K/uL RBC Morphology VBG pH VBG pCO2 VBG pO2 VBG HCO3 VBG O2 Saturation VBG Base Excess Sodium (136-145) mmol/L Potassium (3.5-5.1) mmol/L Chloride (98-107) mmol/L Carbon Dioxide (21-32) mmol/L Anion Gap (3-11) BUN (7-18) mg/dl Creatinine (0.6-1.4) mg/dl Est Cr Clr Drug Dosing ml/min Est GFR ( Amer) ml/min Est GFR (Non-Af Amer) ml/min BUN/Creatinine Ratio (10-20) Glucose (70-99) mg/dl POC Glucose 201 H (70-99) mg/dl Estimat Average Glucose mg/dl Hemoglobin A1c (4.5-5.6) % Lactate Calcium (8.5-10.1) mg/dl Magnesium (1.8-2.4) mg/dl Iron (35-175) mcg/dl Transferrin (200-360) mg/dl Transferrin % Sat (20-50) % Ferritin (8-388) ng/ml Total Bilirubin (0.2-1) mg/dl AST (15-37) U/L ALT (12-78) U/L Alkaline Phosphatase (45-117) U/L Ammonia (11-32) umol/L Troponin I (0-0.045) ng/ml Total Protein (6.4-8.2) gm/dl Albumin (3.4-5.0) gm/dl Globulin (2.5-4.0) gm/dl Albumin/Globulin Ratio (0.9-2) Urine Color Urine Appearance (Clear) Urine pH (4.5-7.5) Ur Specific [place] (1.000-1.030) Urine Protein (Negative) Urine Glucose (UA) (Negative) Urine Ketones (Negative) Urine Blood (Negative) Urine Nitrite (Negative) Urine Bilirubin (Negative) Urine Urobilinogen (Negative) Ur Leukocyte Esterase (Negative) Urine RBC (0-4) /hpf Urine WBC (0-5) /hpf Ur Epithelial Cells (0-5) /lpf Urine Bacteria (Negative) Lyme Disease IgG Ab (Negative) Lyme Disease IgM Ab (Negative) Blood Type Antibody Screen Crossmatch Diagnostic Findings Chest X-Ray 10/18/20 07:00 XR chest 2V PA/lateral HISTORY: Abnormal chest x-ray. f/u opacity/volume overload COMPARISON: Chest 10/17/2020. FINDINGS: No pneumothorax. No pleural effusions. The heart remains enlarged. Diffuse interstitial/vascular thickening consistent with mild congestive change. No change in the 1.4 cm right upper lobe nodular density. IMPRESSION: 1. Cardiomegaly and mild congestive change. This is similar to the prior study. 2. No change in 1.4 cm nodular density within the right upper lobe. One-month chest x-ray follow-up recommended to ensure resolution. ACT 112: Negative or not required by law. Electronically signed by: Jose C Jaeger M.D. 10/18/2020 9:[address] 10/18/20 13:30 CT SCAN OF THE BRAIN WITHOUT IV CONTRAST CLINICAL HISTORY: Change in mental status. Encephalopathy. COMPARISON STUDY: CT of the brain dated 11/03/2019. TECHNIQUE: Unenhanced axial CT scan of the brain is performed from the vertex to the skull base. A dose lowering technique was utilized adhering to the principles of ALARA. The examination is degraded by motion artifact. The patient was scanned twice in an effort to improve image quality. CT DOSE: 1382.10 mGy.cm FINDINGS: Brain parenchyma: There are age-related involutional changes noting mild subcortical and periventricular microangiopathic change. There is no hemorrhage, mass effect, or evidence of acute territorial ischemia by CT criteria. A chronic lacunar infarct is noted in the left thalamus. Mistry-white matter differentiation is preserved. No extra-axial fluid collection is seen. Ventricles, sulci, cisterns: Prominent secondary to involutional change. Intracranial vasculature: There is atherosclerotic calcification of the cavernous carotid and vertebral arteries. Calvarium: Unremarkable. Sinuses and mastoids: There is evidence of previous paranasal sinus surgery. Mild mucosal thickening is noted in the sphenoid sinuses. There is trace mucosal thickening within the maxillary antra. The mastoid air cells are well pneumatized. Orbits: The bony orbits are grossly intact. IMPRESSION: There is no hemorrhage, mass effect, or evidence of acute territorial ischemia by CT criteria noting a motion compromised examination. ACT 112: Negative or not required by law. Electronically signed by: Shayan Gonzalez M.D. 10/18/2020 2:01 PM Chest X-Ray 10/18/20 13:32 XR chest 1V portable CLINICAL HISTORY: Cough. Evaluate for aspiration. COMPARISON STUDY: Chest radiograph performed earlier the day. FINDINGS: There is no pneumothorax. A trace left pleural effusion is noted. A nodular opacity within the right midlung is more conspicuous on prior exams. Cardiomegaly is noted. Interstitial thickening has slightly improved. Old bilateral rib fractures are noted. There is mild left basilar opacity. IMPRESSION: 1. Minimal left basilar opacity. No lobar consolidation. 2. Trace left pleural effusion. 3. Interval improvement in pulmonary edema. 4. Right lung nodular density which be assessed on subsequent exams to ensure resolution. ACT 112: Negative or not required by law. Electronically signed by: Marcus Salazar M.D. 10/18/2020 2:28 PM PG Care Time/CCT Total # of Minutes Spent Total Time Spent with Patient: Total time spent is greater than 50% in coordination of care (as documented) at patient's floor/unit and/or counseling patient: Coding Level of Care Code 82401 Subseq Hosp Care Lvl 3 Diagnoses Metabolic encephalopathy G93.41 Elevated troponin R77.8 Acute hyperkalemia E87.5 ESRD on dialysis N18.6; Z99.2 Atrial fibrillation with RVR I48.91 Hypothyroidism E03.9 General weakness R53.1 Medically noncompliant Z91.19 Chronic blood loss anemia D50.0 Cirrhosis K74.60 Ascites presence: unspecified Hepatic cirrhosis type: unspecified hepatic cirrhosis AVF (arteriovenous fistula) I77.0 Hyperlipidemia LDL goal <70 E78.5 Diabetic peripheral neuropathy E11.42 (1) Cirrhosis Ascites presence: unspecified Hepatic cirrhosis type: unspecified hepatic cirrhosis Qualified Code(s): K74.60 - Unspecified cirrhosis of liver
[2020-10-18] MEDS ORDERED: LIOTHYRONINE SODIUM 5 MCG TAB PO SCH (09:00)
[2020-10-18] MEDS ORDERED: SODIUM CHLORIDE 0.9% 1000ML 1,000 ML IV PRN (09:02)
--- NOTE | 2020-10-18 09:17 | Nephrology Progress Note ---
Date of Service October 18, 2020 Assessment & Plan (1) ESRD on dialysis: * HD again today to allow blood transfusion, clear urea and correct volume overload. Will use 3K bath and attempt 2L UF. No heparin due to h/o GIB * Outpatient HD Rx: [facility] TTS 3hr 45min 2K 2.5Ca Na 135 HCO3 35 Qb 500 Qd 800 F-180NR EDW 92.5 kg * Continue nephrocaps * Recommend low K/HD diet (2) Anemia: * Will transfuse 1 U PRBC during HD today. Informed consent obtained. HD RN notified * Will provide NEMESIO w/ HD today * Iron saturation 6% w/ ferritin 673. Will order Venofer 200 mg IV daily x 5 (3) Hypothyroidism: * Suspect poor adherence w/ outpatient medical regimen * Recommend cautious supplementation (4) Medically noncompliant: * Discussed importance of regular outpatient dialysis treatments w/ patient today. He voiced understanding and indicated that he wishes to continue dialysis Admission and Anticipated Discharge Date Admission Date: October 17, 2020 Subjective Mr. Mcintyre was seen & examined in his hospital room this morning. He was dialyzed yesterday evening. HD was complicated by patient agitation. He dislodged his venous needle and treatment was terminated after 3 hours. 1.5 L UF obtained. Mr. Mcintyre reports that his breathing is improved. He denies overt blood loss. He is agreeable to HD again today if needed Review of Systems Constitutional: + weakness; no fever Eyes: no problem reported Ear, Nose, Mouth, Throat: no problem reported Respiratory: no cough and no dyspnea Cardiovascular: no chest pain, no palpitations and no edema Gastrointestinal: no abdominal pain, no nausea and no diarrhea/loose stools Musculoskeletal: no back pain Integumentary: no rash Neurologic: no falls, no dizziness and no confusion Physical Exam Constitutional: + frail appearing; not in distress Eyes: PERRL, conjunctivae normal, anicteric sclerae ENMT: external ear and nose normal, oropharynx normal Neck: trachea midline, no thyromegaly Respiratory: normal respiratory effort Auscultation: + rales Cardiovascular: Rate/Rhythm: + tachycardic Heart Sounds: no cardiac rub Extremities: + edema (1+ pretibial pitting edema) and + AV fistula (+ bruit) Gastrointestinal (Abdomen): normal bowel sounds, soft, nontender, no hepatosplenomegaly Musculoskeletal: Extremities: no cyanosis Skin: no rashes, warm and dry Neurologic: awake Results & Data ([facility]) Vital Signs (Past 12 Hours) Vital Signs Temp Pulse Pulse Resp BP BP Pulse Ox 10/18/20 07:10 36.4 C L 109 H 19 121/66 90 10/18/20 03:08 36.3 C L 100 H 16 113/63 90 10/18/20 00:38 37.1 C 102 H 18 114/82 92 10/18/20 00:00 102 H 10/17/20 23:19 105 H 24 106/55 L 91 10/17/20 22:00 115 H 23 109/54 L 94 Laboratory Tests 10/18/20 10/18/20 02:09 02:09 WBC 8.82 Hgb 7.4 L Hct 23.5 L Plt Count 186 Sodium 140 Potassium 4.9 D Chloride 103 Carbon Dioxide 25 BUN 72 H Creatinine 9.72 H* D Transferrin % Sat 6 L Ferritin 672.9 H PG Care Time/CCT Total # of Minutes Spent Total Time Spent with Patient: Total time spent is greater than 50% in coordination of care (as documented) at patient's floor/unit and/or counseling patient: Coding Level of Care Code 48006 Subseq Hosp Care Lvl 3 Diagnoses ESRD on dialysis N18.6; Z99.2 Anemia D64.9 Hypothyroidism E03.9 Medically noncompliant Z91.19
--- NOTE | 2020-10-18 09:56 | XRay Report ---
XR chest 2V PA/lateral HISTORY: Abnormal chest x-ray. f/u opacity/volume overload COMPARISON: Chest 10/17/2020. FINDINGS: No pneumothorax. No pleural effusions. The heart remains enlarged. Diffuse interstitial/vas cular thickening consistent with mild congestive change. No change in the 1.4 cm right upper lobe nod ular density. IMPRESSION: 1. Cardiomegaly and mild congestive change. This is similar to the prior study. 2. No change in 1.4 cm nodular density within the right upper lobe. One-month chest x-ray follow-up r ecommended to ensure resolution. ACT 112: Negative or not required by law. Electronically signed by: Jose C Jaeger M.D. 10/18/2020 9:55 AM
[2020-10-18] MEDS ORDERED: EPOETIN ALFA 10,000 UNITS/ML VIAL IV SCH (10:00)
[2020-10-18 11:18] LABS: Lyme Ab IgG w/WB Rflx Negative (Negative); Lyme Ab IgM w/WB Rflx Negative (Negative)
--- NOTE | 2020-10-18 12:05 | Electrocardiogram Report ---
Test Reason : Blood Pressure : / mmHG Vent. Rate : 108 BPM Atrial Rate : 113 BPM P-R Int : 000 ms QRS Dur : 164 ms QT Int : 400 ms P-R-T Axes : 000 117 267 degrees QTc Int : 536 ms Atrial fibrillation with rapid ventricular response Right bundle branch block T wave abnormality, consider inferolateral ischemia Abnormal ECG When compared with ECG of 17-OCT-2020 03:35, No significant change was found Confirmed by Grabiel Farris ([id number]) on 10/18/2020 12:04:36 PM Referred By: REFERRED SELF Confirmed By:Bruce Farris
[2020-10-18] MEDS: NEPHROCAPS PO SCH (13:21)
[2020-10-18] MEDS: FOLIC ACID 1 MG TAB PO SCH (13:21)
[2020-10-18] MEDS: DOXAZOSIN MESYLATE 1 MG TAB PO SCH (13:22)
[2020-10-18] MEDS ORDERED: ALBUT/IPRATROP 3MG/0.5MG NEB 3 ML VIAL NEB PRN (13:36)
--- NOTE | 2020-10-18 14:02 | CT Scan Report ---
CT SCAN OF THE BRAIN WITHOUT IV CONTRAST CLINICAL HISTORY: Change in mental status. Encephalopathy. COMPARISON STUDY: CT of the brain dated 11/03/2019. TECHNIQUE: Unenhanced axial CT scan of the brain is performed from the vertex to the skull base. A do se lowering technique was utilized adhering to the principles of ALARA. The examination is degraded b y motion artifact. The patient was scanned twice in an effort to improve image quality. CT DOSE: 1382.10 mGy.cm FINDINGS: Brain parenchyma: There are age-related involutional changes noting mild subcortical and periventric ular microangiopathic change. There is no hemorrhage, mass effect, or evidence of acute territorial i schemia by CT criteria. A chronic lacunar infarct is noted in the left thalamus. Mistry-white matter di fferentiation is preserved. No extra-axial fluid collection is seen. Ventricles, sulci, cisterns: Prominent secondary to involutional change. Intracranial vasculature: There is atherosclerotic calcification of the cavernous carotid and vertebr al arteries. Calvarium: Unremarkable. Sinuses and mastoids: There is evidence of previous paranasal sinus surgery. Mild mucosal thickening is noted in the sphenoid sinuses. There is trace mucosal thickening within the maxillary antra. The m astoid air cells are well pneumatized. Orbits: The bony orbits are grossly intact. IMPRESSION: There is no hemorrhage, mass effect, or evidence of acute territorial ischemia by CT emilyt camelia noting a motion compromised examination. ACT 112: Negative or not required by law. Electronically signed by: Shayan Gonzalez M.D. 10/18/2020 2:01 PM
--- NOTE | 2020-10-18 14:30 | XRay Report ---
XR chest 1V portable CLINICAL HISTORY: Cough. Evaluate for aspiration. COMPARISON STUDY: Chest radiograph performed earlier the day. FINDINGS: There is no pneumothorax. A trace left pleural effusion is noted. A nodular opacity within the right midlung is more conspicuous on prior exams. Cardiomegaly is noted. Interstitial thickening has slightly improved. Old bilateral rib fractures are noted. There is mild left basilar opacity. IMPRESSION: 1. Minimal left basilar opacity. No lobar consolidation. 2. Trace left pleural effusion. 3. Interval improvement in pulmonary edema. 4. Right lung nodular density which be assessed on subsequent exams to ensure resolution. ACT 112: Negative or not required by law. Electronically signed by: Marcus Salazar M.D. 10/18/2020 2:28 PM
[2020-10-18 14:50] LABS: Hematocrit (blood only) 27.5 % (42-52); Hemoglobin 8.6 g/dL (14.0-18.0); Mean Corpuscular Hgb Conc 31.3 g/dL (32-36); Mean Corpuscular Volume 95.8 fL (80-100); Mean Platelet Volume 10.7 fL (7.4-10.4); Platelet Count 216 K/uL (130-400); RDW Coefficient of Variation 15.9 % (11.5-14.5); Red Blood Count 2.87 M/uL (4.7-6.1)
--- NOTE | 2020-10-18 15:07 | Palliative Care Consultation ---
Date of Consultation October 18, 2020 Assessment & Plan (1) Palliative care encounter: At the moment, Darnell is not capable for goals of care discussion. I did speak to his , Isabel, on the phone. She says that Darnell will refuse dialysis at times and that this has been going on for a while. I asked her if he ever talked about why he didn't want to do dialysis and she said no. We discussed whether he had any expectations or expressed any concerns when starting dialysis but she says that he did not. While he can be difficult at home and is not compliant with treatment, she feels confident that he would want to consider full treatment. She says that he would want anything done to help him get better but does not define what "better" would mean to him. We discussed his current situation and concern that we may be reaching the limitations of his body. She asked me if he was dying. I told her that while he is not dying at this time, I am concerned that we are approaching a time where even our best efforts he will not get better. She feels that if that happens it is God's will but wants to continue current care. Discussed with Mary ROMERO and Dr. Gold. Palliative care will follow. 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 He has refused dialysis at times, including twice in the week prior to admission. He was admitted with weakness and fluid overload. His tells me that he was unable to walk due to excessive lower extremity edema. She also notes that prior to admission he had been having difficulty swallowing and a productive cough. He does have history of GI bleeding with GAVE. He has had significant improvement in his volume status and is in his room after dialysis this morning. He is confused, putting O2 on his chin, asking me who parked the car in the room. He has persistent cough but denies feeling short of breath. Allergies Allergy/AdvReac Type Severity Reaction Status Date / Time sucralfate [From Carafate] Allergy Mild upset Verified 10/17/20 07:37 dialysis tramadol AdvReac Severe disorented Verified 10/17/20 07:37 ,falling down lorazepam [From Ativan] AdvReac Intermediate unresponsive, Verified 10/17/20 07:37 confusion metformin AdvReac Intermediate CONFUSION Verified 10/17/20 07:37 Home Medications Medication Instructions Recorded Confirmed Type docusate sodium 100 mg capsule 200 mg PO QAM #30 cap 01/19/19 10/17/20 Rx insulin aspart U-100 [Novolog 0 sliding scale dose SUBCUT QID 06/06/19 10/17/20 History U-100 Insulin aspart] cyanocobalamin (vitamin B-12) 1,000 mcg PO HS 08/14/19 10/17/20 History [Vitamin B-12] folic acid 1 mg tablet 1 mg PO QDL #90 tab 04/21/20 10/17/20 Rx ferrous sulfate 325 mg (65 mg 325 mg PO BID #60 tab 05/11/20 10/17/20 Rx iron) tablet,delayed release levothyroxine 200 mcg tablet 200 mcg PO QAM #90 tab 05/11/20 10/17/20 Rx rosuvastatin 20 mg tablet 20 mg PO QPM #90 tab 05/17/20 10/17/20 Rx Renal Caps 1 cap PO QDL 05/20/20 10/17/20 History levothyroxine 150 mcg PO QAM 05/20/20 10/17/20 History labetalol 200 mg tablet 200 mg PO BID #180 tab 05/30/20 10/17/20 Rx amlodipine 10 mg tablet 10 mg PO HS #90 tab 06/15/20 10/17/20 Rx lactulose 30 ml PO DAILY 06/22/20 10/17/20 History Levemir U-100 Insulin 15 unit SUBCUT HS 06/29/20 10/17/20 History doxazosin [Cardura] 1 mg PO QDL 06/29/20 10/17/20 History isosorbide mononitrate 30 mg 30 mg PO QAM #90 tab 07/22/20 10/17/20 Rx tablet,extended release 24 hr pantoprazole 40 mg tablet,delayed 40 mg PO BID #60 tab 08/31/20 10/17/20 Rx release bumetanide 1 mg tablet 2 mg PO BID #120 tab 09/01/20 10/17/20 Rx calcium acetate(phosphat bind) 667 2,001 mg PO TIDM #270 tab 09/02/20 10/17/20 Rx mg tablet hydralazine 50 mg tablet 50 mg PO TIDM #90 tab 09/28/20 10/17/20 Rx gabapentin 100 mg capsule 200 mg PO UD #180 cap 10/11/20 10/17/20 Rx Patient History Medical History Acute blood loss anemia Acute hyperkalemia Acute hyperkalemia Acute lower GI bleeding Anxiety and depression Arthritis Asthma AVF (arteriovenous fistula) LEFT ARM Bilateral leg pain BPH (benign prostatic hyperplasia) CAD (coronary artery disease) Chronic blood loss anemia Chronic diastolic congestive heart failure Colon, diverticulosis 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, with long-term current use of insulin COPD (chronic obstructive pulmonary disease) Diabetes mellitus, type 2 Diabetic peripheral neuropathy Dialysis patient [facility] SATURDAY, SATURDAY, SATURDAY GAVE (gastric antral vascular ectasia) GI bleed Hearing difficulty Hyperlipidemia LDL goal <70 Hypertension Hypnic jerks Hypoxia IgG monoclonal gammopathy Memory loss Mild cognitive impairment Mitral regurgitation New onset a-fib Obstructive sleep apnea uses oxygen 2 l nc at hs Occlusion and stenosis of unspecified carotid artery On home oxygen therapy WEARS O2 AT 2L HS Osteoporosis Pulmonary hypertension Secondary hyperparathyroidism of renal origin SOB (shortness of breath) SOB (shortness of breath) Vitamin D deficiency Volume overload Surgical History H/O cardiac catheterization many years ago - over 10 years no stents follow with trung (NO STENTS) H/O hemorrhoidectomy History of colonoscopy History of esophagogastroduodenoscopy (EGD) MULTIPLE History of tooth extraction Hx of cholecystectomy Family History Unknown Myocardial infarction Mother Diabetes Breast cancer late 70s Hypertension Gallbladder disease Father Diabetes Hypertension Brother Diabetes Kidney disease Hypertension Denies family history of Ovarian cancer Prostate cancer Lung cancer Colorectal cancer Social History Smoking Status: Former smoker Tobacco Type: Cigarettes packs per day: 0.5; Years Smoked: 5; Number of Years Since Quit: 20; Second Hand Exposure: No; Hx Alcohol Use: No Hx Substance Use: No Preferred Language: Yi Communication Ability: Effective Visual Impairment: No Limitations Hearing Ability: Hard of Hearing Sanitation Truck 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 Required: No Beliefs That Will Affect Care: None marital status: Current Living Situation: Spouse Current Living Situation Comment: Lives w/ , Isabel Mcintyre current occupational status: disabled current occupation: works part-time at [employer] How many Children do You have: 4 other: 4 children Feels Safe at Home: Yes Childhood Exposure to Second-Hand Smoke: No Diet Comment: regular caffeine: Yes during the past year weight has: remained stable Dental Care, Regularly: Yes Physical Activity Frequency: Does not Exercise Physical Activity Frequency Comment: limited due physical condition Seatbelt Use: sometimes Sunscreen Use: No Assistive Devices: None Review of Systems Review of Systems: Unobtainable due to cognitive status [place] Symptom A ssessment Scale Pain 1/3 Dyspnea 1/3 Drowsiness 1/3 Palliative Performance Score 30% Physical Exam Constitutional: + ill appearing and + disheveled Respiratory: + uses accessory muscles Cardiovascular: Rate/Rhythm: + tachycardic Neurologic: awake and + confused Results & Data ([facility]) Vital Signs (Past 12 Hours) Vital Signs Temp Pulse Pulse Pulse Resp BP BP 10/18/20 14:56 97.5 F L 103 H 19 123/59 L 10/18/20 13:18 97.9 F 109 H 18 132/65 10/18/20 13:10 97.7 F 107 H 116/67 10/18/20 13:00 102 H 118/78 10/18/20 12:40 89 130/60 10/18/20 12:20 97.7 F 103 H 18 118/53 L 10/18/20 12:00 97.7 F 114 H 18 114/58 L 10/18/20 11:44 97.9 F 100 H 18 125/89 10/18/20 11:40 100 H 138/99 10/18/20 11:20 106 H 127/55 L 10/18/20 11:00 100 H 128/68 10/18/20 10:40 113 H 116/59 L 10/18/20 10:20 102 H 122/62 10/18/20 10:00 98.1 F 104 H 10/18/20 07:10 97.5 F L 109 H 19 121/66 10/18/20 03:08 97.3 F L 100 H 16 113/63 Pulse Ox 10/18/20 14:56 91 10/18/20 13:18 90 10/18/20 13:10 10/18/20 13:00 10/18/20 12:40 10/18/20 12:20 10/18/20 12:00 10/18/20 11:44 10/18/20 11:40 10/18/20 11:20 10/18/20 11:00 10/18/20 10:40 10/18/20 10:20 10/18/20 10:00 10/18/20 07:10 90 10/18/20 03:08 90 PG Care Time/CCT Total # of Minutes Spent Total Time Spent with Patient: Total time spent is greater than 50% in coordination of care (as documented) at patient's floor/unit and/or counseling p atient: total time spent 70 minutes with more than 50% of time spent on goals of care, family education and support. 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
[2020-10-18 15:10] LABS: Base Excess VBG 1.8 mEq/L; pH VBG 7.4 (7.36-7.41)
[2020-10-18] MEDS ORDERED: AMPICILLIN/SULBACTAM SOD 3,000 MG in 0.9 % SODIUM CHLORIDE 100 ML IV SCH (15:15)
[2020-10-18 15:22] LABS: Albumin Globulin Ratio 0.7 (0.9-2); Albumin Level 2.9 gm/dl (3.4-5.0); BUN Creatinine Ratio 6.3 (10-20); Bilirubin,Total 1.1 mg/dl (0.2-1); Calcium 9.8 mg/dl (8.5-10.1); Creatinine Clr Calc Pharmacy 11.7 ml/min; Est GFR (African American) 9.7 ml/min; Est GFR (Non-African American) 8.4 ml/min; Potassium 4.3 mmol/L (3.5-5.1); Total Protein 6.9 gm/dl (6.4-8.2)
[2020-10-18] MEDS ORDERED: LABETALOL HCL IV 5 MG/ML 20ML IV PRN (15:44)
[2020-10-18] MEDS ORDERED: hydrALAZINE HCL 20 MG/ML VIAL IV PRN (15:44)
[2020-10-18] MEDS ORDERED: METOPROLOL TARTRATE 1 MG/ML VIAL IV PRN (15:47)
[2020-10-18] MEDS ORDERED: AMPICILLIN/SULBACTAM SOD 1,500 MG in 0.9 % SODIUM CHLORIDE 100 ML IV SCH (16:00)
[2020-10-18] MEDS ORDERED: IRON SUCROSE 200 MG in 0.9 % SODIUM CHLORIDE 100 ML IV SCH (16:00)
[2020-10-18] MEDS ORDERED: PHARMACY GLYCEMIC MGMT CONSULT PRN (16:10)
[2020-10-18] MEDS ORDERED: HALOPERIDOL LACTATE 5 MG/ML 1 ML VIAL IV STA (16:37)
[2020-10-18] MEDS ORDERED: BUMETANIDE 2 MG in SYRINGE 0 ML IV SCH (17:00)
--- NOTE | 2020-10-18 17:03 | XCELERA ---
[id number]
[2020-10-18] MEDS ORDERED: PANTOprazole 40 MG in SYRINGE 0 ML IV SCH (21:00)
[2020-10-18] MEDS ORDERED: ACETAMINOPHEN 1,000 MG/100 ML VIAL IV PRN (23:32)
[2020-10-19 02:43] LABS: Hematocrit (blood only) 26.9 % (42-52); Hemoglobin 8.3 g/dL (14.0-18.0); Mean Corpuscular Hgb Conc 30.9 g/dL (32-36); Mean Corpuscular Volume 94.1 fL (80-100); Nucleated RBC # (auto) 0.03 K/uL (0-0); Nucleated RBC % (auto) 0.3 %; Platelet Count 214 K/uL (130-400); RDW Standard Deviation 55.2 fL (36.4-46.3); Red Blood Count 2.86 M/uL (4.7-6.1); White Blood Count 11.28 K/uL (4.8-10.8)
[2020-10-19 03:03] LABS: Basophils # (auto) 0.01 K/uL (0-0.2); Basophils % (auto) 0.1 %; Immature Granulocytes # (auto) 0.03 K/uL (0.00-0.02); Immature Granulocytes % (auto) 0.3 %; Lymphocytes % (auto) 3.5 %; Monocytes # (auto) 1.29 K/uL (0.11-0.59); Monocytes % (auto) 11.4 %; Neutrophils # (auto) 9.55 K/uL (1.4-6.5); Neutrophils % (auto) 84.7 %
[2020-10-19] MEDS ORDERED: RAPID SEQUENCE INDUCTION BAG ONE (03:09)
[2020-10-19 03:20] LABS: Albumin Globulin Ratio 0.8 (0.9-2); Albumin Level 2.7 gm/dl (3.4-5.0); BUN Creatinine Ratio 6.8 (10-20); Bilirubin,Total 0.9 mg/dl (0.2-1); Calcium 9.4 mg/dl (8.5-10.1); Creatinine Clr Calc Pharmacy 9.7 ml/min; Est GFR (African American) 7.8 ml/min; Est GFR (Non-African American) 6.8 ml/min; Globulin 3.5 gm/dl (2.5-4.0); Magnesium 2.1 mg/dl (1.8-2.4); Total Protein 6.2 gm/dl (6.4-8.2); Troponin I 0.224 ng/ml (0-0.045)
--- NOTE | 2020-10-19 03:38 | Communication Note ---
Date of Service: October 19, 2020 Nighat Reed called on patient at approximately 2:45 am. Per nursing, patient got up to go to the bathroom, became dizzy and unsteady and then became unresponsive. Patient stabilized with control of airway, return of pulse through the course of the code after receiving atropine, epi, calcium and bicarb at different intervals. patient transferred to ICU for further management.
[2020-10-19 03:50] LABS: Hematocrit (blood only) 28.2 % (42-52); Hemoglobin 8.5 g/dL (14.0-18.0); Mean Corpuscular Volume 96.2 fL (80-100); Mean Platelet Volume 11.4 fL (7.4-10.4); Nucleated RBC % (auto) 1.4 %; Platelet Count 222 K/uL (130-400); RDW Coefficient of Variation 16.1 % (11.5-14.5); RDW Standard Deviation 56.4 fL (36.4-46.3); Red Blood Count 2.93 M/uL (4.7-6.1); White Blood Count 14.04 K/uL (4.8-10.8)
[2020-10-19 03:59] LABS: Mean Corpuscular Hgb Conc 30.1 g/dL (32-36)
[2020-10-19 04:12] LABS: Albumin Globulin Ratio 0.7 (0.9-2); Albumin Level 2.7 gm/dl (3.4-5.0); BUN Creatinine Ratio 6.7 (10-20); Bilirubin,Total 0.8 mg/dl (0.2-1); Calcium 10.6 mg/dl (8.5-10.1); Creatinine Clr Calc Pharmacy 9.5 ml/min; Est GFR (African American) 7.6 ml/min; Est GFR (Non-African American) 6.6 ml/min; Globulin 3.7 gm/dl (2.5-4.0); Magnesium 2.5 mg/dl (1.8-2.4); Phosphorus 6.4 mg/dl (2.5-4.9); Potassium 5.7 mmol/L (3.5-5.1); Total Protein 6.4 gm/dl (6.4-8.2); Troponin I 0.253 ng/ml (0-0.045)
--- NOTE | 2020-10-19 04:30 | Critical Care Consultation ---
Date of Consultation October 19, 2020 History of Present Illness Attending Physician: Stephen Gold MD Allergies Allergy/AdvReac Type Severity Reaction Status Date / Time sucralfate [From Carafate] Allergy Mild upset Verified 10/17/20 07:37 dialysis tramadol AdvReac Severe disorented Verified 10/17/20 07:37 ,falling down lorazepam [From Ativan] AdvReac Intermediate unresponsive, Verified 10/17/20 07:37 confusion metformin AdvReac Intermediate CONFUSION Verified 10/17/20 07:37 Home Medications Medication Instructions Recorded Confirmed Type docusate sodium 100 mg capsule 200 mg PO QAM #30 cap 01/19/19 10/17/20 Rx insulin aspart U-100 [Novolog 0 sliding scale dose SUBCUT QID 06/06/19 10/17/20 History U-100 Insulin aspart] cyanocobalamin (vitamin B-12) 1,000 mcg PO HS 08/14/19 10/17/20 History [Vitamin B-12] folic acid 1 mg tablet 1 mg PO QDL #90 tab 04/21/20 10/17/20 Rx ferrous sulfate 325 mg (65 mg 325 mg PO BID #60 tab 05/11/20 10/17/20 Rx iron) tablet,delayed release levothyroxine 200 mcg tablet 200 mcg PO QAM #90 tab 05/11/20 10/17/20 Rx rosuvastatin 20 mg tablet 20 mg PO QPM #90 tab 05/17/20 10/17/20 Rx Renal Caps 1 cap PO QDL 05/20/20 10/17/20 History levothyroxine 150 mcg PO QAM 05/20/20 10/17/20 History labetalol 200 mg tablet 200 mg PO BID #180 tab 05/30/20 10/17/20 Rx amlodipine 10 mg tablet 10 mg PO HS #90 tab 06/15/20 10/17/20 Rx lactulose 30 ml PO DAILY 06/22/20 10/17/20 History Levemir U-100 Insulin 15 unit SUBCUT HS 06/29/20 10/17/20 History doxazosin [Cardura] 1 mg PO QDL 06/29/20 10/17/20 History isosorbide mononitrate 30 mg 30 mg PO QAM #90 tab 07/22/20 10/17/20 Rx tablet,extended release 24 hr pantoprazole 40 mg tablet,delayed 40 mg PO BID #60 tab 08/31/20 10/17/20 Rx release bumetanide 1 mg tablet 2 mg PO BID #120 tab 09/01/20 10/17/20 Rx calcium acetate(phosphat bind) 667 2,001 mg PO TIDM #270 tab 09/02/20 10/17/20 Rx mg tablet hydralazine 50 mg tablet 50 mg PO TIDM #90 tab 09/28/20 10/17/20 Rx gabapentin 100 mg capsule 200 mg PO UD #180 cap 10/11/20 10/17/20 Rx Patient History Medical History Acute blood loss anemia Acute hyperkalemia Acute hyperkalemia Acute lower GI bleeding Anxiety and depression Arthritis Asthma AVF (arteriovenous fistula) LEFT ARM Bilateral leg pain BPH (benign prostatic hyperplasia) CAD (coronary artery disease) Chronic blood loss anemia Chronic diastolic congestive heart failure Colon, diverticulosis 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 SATURDAY, SATURDAY, SATURDAY GAVE (gastric antral vascular ectasia) GI bleed Hearing difficulty Hyperlipidemia LDL goal <70 Hypertension Hypnic jerks Hypoxia IgG monoclonal gammopathy Memory loss Mild cognitive impairment Mitral regurgitation New onset a-fib Obstructive sleep apnea uses oxygen 2 l nc at hs Occlusion and stenosis of unspecified carotid artery On home oxygen therapy WEARS O2 AT 2L HS Osteoporosis Pulmonary hypertension Secondary hyperparathyroidism of renal origin SOB (shortness of breath) SOB (shortness of breath) Vitamin D deficiency Volume overload Surgical History H/O cardiac catheterization many years ago - over 10 years no stents follow with trung (NO STENTS) H/O hemorrhoidectomy History of colonoscopy History of esophagogastroduodenoscopy (EGD) MULTIPLE History of tooth extraction Hx of cholecystectomy Family History Unknown Myocardial infarction Mother Diabetes Breast cancer late 70s Hypertension Gallbladder disease Father Diabetes Hypertension Brother Diabetes Kidney disease Hypertension Denies family history of Ovarian cancer Prostate cancer Lung cancer Colorectal cancer Social History Smoking Status: Former smoker Tobacco Type: Cigarettes packs per day: 0.5; Years Smoked: 5; Number of Years Since Quit: 20; Second Hand Exposure: No; Hx Alcohol Use: No Hx Substance Use: No Preferred Language: Turkish Communication Ability: Effective Visual Impairment: No Limitations Hearing Ability: Hard of Hearing Maternal Child Nurse Required: No Beliefs That Will Affect Care: None marital status: Current Living Situation: Spouse Current Living Situation Comment: Lives w/ , Isabel Mcintyre current occupational status: disabled current occupation: works part-time at [employer] ([employer]) How many Children do You have: 4 other: 4 children Feels Safe at Home: Yes Childhood Exposure to Second-Hand Smoke: No Diet Comment: regular caffeine: Yes during the past year weight has: remained stable Dental Care, Regularly: Yes Physical Activity Frequency: Does not Exercise Physical Activity Frequency Comment: limited due physical condition Seatbelt Use: sometimes Sunscreen Use: No Assistive Devices: None Results & Data Results & Data ([facility]) Vital Signs (Past 12 Hours) Vital Signs Temp Pulse Pulse Pulse Resp BP BP 10/18/20 23:29 38.5 C H 118 H 10/18/20 22:54 104 H 108/63 10/18/20 22:38 133 H 118/66 10/18/20 22:37 37.7 C H 133 H 20 118/66 10/18/20 20:08 37.6 C H 120 H 18 120/66 Pulse Ox 10/18/20 23:29 10/18/20 22:54 93 10/18/20 22:38 10/18/20 22:37 88 L 10/18/20 20:08 90 Coding
--- NOTE | 2020-10-19 04:31 | Procedure Note ---
Procedure Note Date of Service October 19, 2020 APC: Raul Goodman PA-C. Attending: Dr. Curiel A time-out was completed verifying correct patient, procedure, site, positioning. Patient was evaluated and required intubation for respiratory failure in the setting of cardiac arrest. Sedative agent used: None Paralysis agent used: None Emergent consent was implied given patients rapidly declining clinical status and need for airway protection. The patient was prepared in the appropriate fashion. No sedation necessary in the setting of cardiac arrest. The patient was easily ventilated using [id number] to achieve adequate oxygenation. A 7.5 Emirati endotracheal tube was placed under video laryngoscope to 25 cm at the lip. The stylette was removed and balloon was inflated with 10mL of air. Appropriate Colorimetric change was appreciated. Bilateral breath sounds were heard without air sounds in the abdomen. Initially, the first ET tube became dislodged. Repeat intubation performed by myself with 7.5 Emirati ET tube. Visualized passing cords. Cuff inflated. Good colorimetric change. Patient oxygenating well at this point. End-tidal CO2 was found to be appropriate. Oxygen saturations in the high 90s on evaluation in the emergency department. Dr. Curiel was present for the entire procedure. Chest x-ray was ordered, but not obtained as the patient's made the patient DNR/DNI and arrested a third time and was not resuscitated secondary to family's wishes. Patient tolerated the procedure well and there were no immediate complications. Coding CPT Codes Resuscitation - Resuscitation: 80213 Endotracheal Intubation, emergency ([id number]) [facility] [place] Procedure Codes (Charges) Resuscitation Resuscitation: 66843 Endotracheal Intubation, emergency
[2020-10-19 04:48] LABS: Basophils # (auto) 0.02 K/uL (0-0.2); Basophils % (auto) 0.1 %; Eosinophils # (auto) 0.01 K/uL (0-0.5); Eosinophils % (auto) 0.1 %; Giant Platelets 1+; Immature Granulocytes # (auto) 0.13 K/uL (0.00-0.02); Immature Granulocytes % (auto) 0.9 %; Lymphocytes # (auto) 1.82 K/uL (1.2-3.4); Monocytes # (auto) 1.15 K/uL (0.11-0.59); Monocytes % (auto) 8.2 %; Neutrophils # (auto) 10.91 K/uL (1.4-6.5); Neutrophils % (auto) 77.7 %
--- NOTE | 2020-10-19 05:39 | Communication Note ---
Date of Service: October 19, 2020 Responded to CODE BLUE on the floor with the critical care [facility]. Patient apparently had had a syncopal episode and was found to be bradycardic with thready pulses. His respirations were ineffectual. He was intubated by the critical care [facility] without medications. I was present for the intubation. He became bradycardic with heart rates in the 40s and was given 1/2 mg of atropine. During the course of trying to stabilize the patient in transfer to the ICU, he again became bradycardic and lost pulses. He was administered epinephrine. He had what appeared to be PEA. His total period of compressions was 2 minutes. He never required defibrillation. The chart was then reviewed. The patient reportedly has a history of medical noncompliance and is on dialysis. He had met with palliative care and was not felt to be capable of making decisions. His is the proxy decision-maker. She had met with palliative earlier in the course of his hospitalization. The patient's , Isabel, was contacted by the critical care [facility]. She stated that the patient definitely did not want aggressive interventions including CPR, defibrillation, or aggressive's attempts at life-sustaining therapy. Given his history of refusing medical interventions previously including dialysis, this was felt to be consistent with his prior stated wishes. He was transferred to the ICU but continued to demonstrate bradycardia. Of note the patient did receive pushes of IV bicarbonate and calcium on the floor. After discussion with the patient's , it was clear that the patient would not want to pursue the aggressive interventions already undertaken. No additional resuscitative efforts were undertaken and the patient rapidly developed wide-complex tachycardia which degenerated into an agonal rhythm and the patient subsequently . A total of 43 minutes in critical care time exclusive of procedures including management of CPR was conducted with this patient. Coding Level of Care Code Critical Care 1st 30-74 mins
--- NOTE | 2020-10-19 05:41 | Procedure Note ---
Procedure Note Date of Service October 19, 2020 Responded to CODE BLUE on the floor. Arrived to find the patient with agonal respirations but he did have a heart rate and pulse initially. He was intubated. He received atropine for bradycardia. He then developed a period of what appeared to be PEA as pulses were not able to be palpated. He was given epinephrine fluid bolus and CPR commenced. He received CPR for 2 minutes. At that point time he had a palpable pulse and was transferred to the intensive care unit. Coding CPT Codes Resuscitation - Resuscitation: 94166 Heart/lung resuscitation CPR ([id number]) [facility] [place] Procedure Codes (Charges) Resuscitation Resuscitation: 19409 Heart/lung resuscitation CPR
--- NOTE | 2020-10-19 06:38 | Ultrasound Report ---
BILATERAL LOWER EXTREMITY VENOUS DOPPLER HISTORY: Acute pain and swelling of the lower extremities r/o DVT COMPARISON STUDY: 12/20/2019. FINDINGS: There is normal compressibility, flow, and augmentation within the bilateral lower extremit y deep venous systems. IMPRESSION: No DVT within the right or left lower extremity. ACT 112: Negative or not required by law. Electronically signed by: Nikhil Ag M.D. 10/19/2020 6:37 AM
--- NOTE | 2020-10-19 07:19 | Death Pronouncement Note ---
Date of Service October 19, 2020 Pronouncement Note Admission Date Admission Date: October 17, 2020 Date and Time of Date of : 10/19/20 Time of : 03:48 PCOD Preliminary cause of : End stage renal failure on dialysis Contributing Factors (1) Metabolic encephalopathy: (2) Elevated troponin: (3) Acute hyperkalemia: (4) ESRD on dialysis: (5) Atrial fibrillation with RVR: (6) Hypothyroidism: (7) General weakness: (8) Medically noncompliant: (9) Chronic blood loss anemia: (10) Cirrhosis: (11) AVF (arteriovenous fistula): (12) Hyperlipidemia LDL goal <70: (13) Diabetic peripheral neuropathy: Summary Additional details: Patient was admitted facility with end-stage renal disease requiring ongoing hemodialysis as well as a multitude of other chronic medical conditions. Patient was a CODE BLUE in room 221. Upon arrival, the patient was receiving high-quality chest compressions. During pulse check, the patient immediately did have return of spontaneous circulation without medication intervention. He quickly lost pulses and CPR was again started. The patient was intubated and brought to the ICU after ROSC was achieved. Upon arrival in the ICU, I did have an extensive discussion via phone with the patient's , Isabel. During this conversation, she reported to me that she would not wish to for her to undergo any further chest compressions or defibrillation. She was fine with ongoing cardiac medications as needed. She agreed to central line and arterial line if necessary. At the end of her conversation, the patient became bradycardic. Acutely. By the time I was able to enter the room, we were able to provide initial dose of epinephrine. Unfortunately, the patient lost pulses and despite pushes of other medications, the patient did completely lose pulse and did develop a wide-complex dysrhythmia. Patient eventually at 0348. I was able to reach out to the patient's by phone. She states that she felt as though he was going to pass away when she saw him yesterday. She is thankful for the care that he received at our institution. All questions were answered. Additional Data Confirmation of : no pulse, no respirations, no heart sounds and pupils fixed and dilated Family: contacted Attending/PCP notified?: No Attending physician: Stephen Gold MD Was code activated?: No Autopsy requested?: No land law examiner notified?: Yes Organ bank notified?: Yes Advance directives: No Coding Level of Care Code None Diagnoses Metabolic encephalopathy G93.41 Elevated troponin R77.8 Acute hyperkalemia E87.5 ESRD on dialysis N18.6; Z99.2 Atrial fibrillation with RVR I48.91 Hypothyroidism E03.9 General weakness R53.1 Medically noncompliant Z91.19 Chronic blood loss anemia D50.0 Cirrhosis K74.60 Ascites presence: unspecified Hepatic cirrhosis type: unspecified hepatic cirrhosis AVF (arteriovenous fistula) I77.0 Hyperlipidemia LDL goal <70 E78.5 Diabetic peripheral neuropathy E11.42 Time Spent (min) 22
[2020-10-19] MEDS ORDERED: LEVOTHYROXINE SODIUM 200 MCG in SYRINGE 0 ML IV ONE (09:00)
--- NOTE | 2020-10-19 11:19 | Ultrasound Report ---
ABDOMINAL ULTRASOUND, RIGHT UPPER QUADRANT HISTORY: elevated LFTs. COMPARISON: None. FINDINGS: Pancreas: The pancreas demonstrates a normal echotexture. No focal pancreatic lesions are seen. There is prominence of the pancreatic duct measuring 0.6 cm in diameter. Liver: Liver is slightly enlarged measuring up to 22 cm in size. Minimal decrease in echogenicity of liver parenchyma is seen without focal mass lesions or intrahepatic biliary dilatation. Common bile duct is measuring 0.7 cm in diameter. Gallbladder: Surgically absent. Right kidney: It is incompletely evaluated because exam was terminated by the patient. Possible dilat ation of right collecting system and renal cortical atrophy. There are a few hypoechoic lesions are s een within right renal renal cortex which could represent simple cyst. IMPRESSION: 1. No focal liver lesions are seen. Mild hepatic steatosis. 2. Status post cholecystectomy. 3. Prominent pancreatic duct. Please correlate above-mentioned findings with prior history of pancre atic abnormalities. 4. Incompletely evaluated right kidney with possible dilatation of the right renal pelvis, renal cor tical scarring and cortical cysts. ACT 112: Negative or not required by law. Electronically signed by: Tyra Herr DO 10/19/2020 11:18 AM
--- NOTE | 2020-10-19 12:50 | Electrocardiogram Report ---
Test Reason : Blood Pressure : / mmHG Vent. Rate : 108 BPM Atrial Rate : 115 BPM P-R Int : 000 ms QRS Dur : 156 ms QT Int : 380 ms P-R-T Axes : 000 119 259 degrees QTc Int : 509 ms Poor data quality, interpretation may be adversely affected Atrial fibrillation with rapid ventricular response Right bundle branch block T wave abnormality, consider inferolateral ischemia Abnormal ECG When compared with ECG of 18-OCT-2020 06:00, No significant change was found Confirmed by Grabiel Farris ([id number]) on 10/19/2020 12:49:42 PM Referred By: REFERRED SELF Confirmed By:Bruce Farris
--- NOTE | 2020-10-19 13:01 | Discharge Summary ---
Date of Service October 19, 2020 Admission HPI Per Admitting Provider The patient is a 80-year-old male with a past medical history including ESRD on HD, hypothyroidism, medical noncompliance, atrial fibrillation, NSTEMI, diabetes mellitus, carotid artery stenosis, IgG monoclonal gammopathy, asthma, anxiety depression, GAVE causing chronic blood loss anemia, hiatal hernia, GERD, PAD, cirrhosis, aVF, hyperlipidemia, chronic HFpEF, diabetic peripheral neuropathy, EFREN, pulmonary pretension, CAD, BPH, secondary hyperparathyroidism of renal origin, and COPD. Patient presents with symptoms as noted above, and as is often the case, his medical noncompliance with not getting to dialysis has led to symptoms that require admission. Principal Diagnosis Bradycardia leading to cardiac arrest Discharge Data Allergies Allergy/AdvReac Type Severity Reaction Status Date / Time sucralfate [From Carafate] Allergy Mild upset Verified 10/17/20 07:37 dialysis tramadol AdvReac Severe disorented Verified 10/17/20 07:37 ,falling down lorazepam [From Ativan] AdvReac Intermediate unresponsive, Verified 10/17/20 07:37 confusion metformin AdvReac Intermediate CONFUSION Verified 10/17/20 07:37 Consultations 10/17/20 04:43 ED Decision to Admit Stat 10/17/20 10:39 Consult Nephrology Routine 10/17/20 14:18 Consult Palliative Care Routine Ordered Studies 10/18/20 13:30 CT head/brain wo con Stat 10/18/20 15:31 US liver Routine US venous doppler LE Routine Hospital Course (1) Metabolic encephalopathy: Had a syncopal event early in the morning of 10/19. Become unresponsive and was intubated. Several rounds of CPR. contact who asked for no further CPR or cardioversion. Became bradycardic, hypotensive, and eventually went into a wide compex tachycardia. Time of was 3:48am. No bill for this note as I did not exam the patient this day. Admitted for elevated troponin/atrial fibrillation with RVR/hypertension/volume overload after missing HD twice this past week (along with medications possibly). Initially with anion gap 16, currently 12 Troponin 0.201 on admission --> down to 0.176 then trending up --> 0.236, 0.262, .280 -- will continue to trend. Suspect some elevation secondary to volume overload/demand from afib/RVR and anemia as well * --> EKG notes T wave abn, consider inferolateral ischemia. Will repeat daily as volume pulled off/anemia corrected * ECHO pending * Has been afib with rates 90-100s. * Continued on amlodipine, bumetanide, doxazosin, hydralazine, isosorbide mono nitrate and labetalol with hold parameters. Had HD on 10/17 for 1.5L -- cut short due to agitation * Repeated again 10/18 for additional 2L * Nephrology following * CT Head today for confusion negative for acute process * CXR obtained for concerns for aspiration given choking after pills returning from dialysis (per has been happening for past week with meals, along with increase need for O2 whereas he typically was wearing only at night. in addition "purple" sputum reported day before yesterday 10/16 possibly hemoptysis vs Klebsiella?) * CXR with minimal LEFT basilar opacity, no lobar consolidation. Trace L pleural effusion. Interval improvement in pulmonary edema. R lung nodular denisty assessed on subsequent exams to ensure resolution * Started on Unasyn for aspiration pneumonia * Duonebs prn * Supplemental O2 as needed (on 2L at night but using more frequently) --- currently 91% on 2L * -- will hold off on CT for PE just yet given not tachypneic, but consider. Would need surgery consultation/IVC filter given inability for anticoagulation. * --> Will get Venous Dopplers to r/o DVT Made NPO except chips/sips * Speech eval pending (per has had swallowing study in past but unsure of any findings but per speech prior in 2016 not great) * --> Plans for video swallow tomorrow at 11:30 and will continue NPO * --> Holding oral medications as able and will place on protonix BID IVP and bumex IV BID, and add on IV BP medications as needed however has been hypotensive Ammonia 33 from 39 (got lactulose) BCx pending Lactic wnl UA with staph species (no symptoms reported) -- not currently treating (hx ucxs with alpha strep not enterococcus) Hypothyroidism contributing to afib/rvr/volume overload/confusion * under treated/not taking medications properly * has been on 350mcg daily with last TSH 17 in August without adjustment and again elevated to 15.9 during admission with T3 low 1.01 * --> Discussion with revealed Darnell takes this medication in the morning "on an empty stomach" but with the rest of his pills. Discussed he needs to take this separately prior to other medications for this to be effective. Given PO T3 and scheduled 5mg daily for today as well. --> Continued on 350mcg levothyroxine for now but suspect less needs once taking properly. Anemia * Chronic. 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 No CP reported however EKG w concerns for inferolateral ischemia. ECHO pending * Continue to trend troponin as pulling fluid off (3) Acute hyperkalemia: * Potassium 5.8 upon admission, due to missed HD x 2 --> corrected with dialysis * BMP in AM (4) ESRD on dialysis: * ESRD on HD/medical noncompliance- * ESRD on HD needing hemodialysis, since he missed dialysis twice this past week. (5) Atrial fibrillation with RVR: * See above.-- suspect secondary to volume overload,as well as hypothyroidism * TSH elevated to 15.6 (prior elevated to 17.09 August 2020) and is on 350mcg daily (not taking correctly) * Telemetry - Rates 90-100s afib on monitor. 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 * RUQ US pending * Monitor in AM (11) AVF (arteriovenous fistula): * AV fistula in left arm- * Noted for dialysis (12) Hyperlipidemia LDL goal <70: * Continue rosuvastatin once taking PO (13) Diabetic peripheral neuropathy: * Continue gabapentin once taking PO Diabetes II A1c 7.2 (up from 6.04 August 2020) Levemir 15u HS BSG ACHS ISS while inpatient Pharmacy consulted for glycemic control Dispo: continued inpatient stay Video swallow in AM Total Time Total Time Spent Total Time Spent (In Minutes): 35 Discharge Plan Discharge Items Patient Disposition: Coding Level of Care Code None Diagnoses Metabolic encephalopathy G93.41 Elevated troponin R77.8 Acute hyperkalemia E87.5 ESRD on dialysis N18.6; Z99.2 Atrial fibrillation with RVR I48.91 Hypothyroidism E03.9 General weakness R53.1 Medically noncompliant Z91.19 Chronic blood loss anemia D50.0 Cirrhosis K74.60 Ascites presence: unspecified Hepatic cirrhosis type: unspecified hepatic cirrhosis AVF (arteriovenous fistula) I77.0 Hyperlipidemia LDL goal <70 E78.5 Diabetic peripheral neuropathy E11.42
== END 2020-10-19 03:48 | disposition expired | DRG 308 ==
LOC: ED 03:09 → 1E 05:52 → SUATTDRO 05:52 → 1E 10:02 → 2S 10-18 00:07 → 1E 10-19 03:52